=== PATIENT | female | born 1975 | race African-American/Black ===

== ENCOUNTER → 2018-06-12 | Outpatient (CLI) | payer OTHER ==
[2018-06-12 14:17] VITALS: PULSE 87; RESP 20; TEMP 98.3; BMI 63.2
[2018-06-12 14:34] VITALS: BP 137/70
--- NOTE | 2018-06-12 16:40 | P.HPBAR ---
Bariatric H&P - History & Physicial H&P Date: 06/12/18 History & Physicial: Visit/CC: pursuing surgery Patient initial contact: 05/27/18 Initial weight: 169.825 kg Initial weight in pounds: 374.40 Height: 5 ft 4.5 in Initial BMI: 63.2 Last weight: Current weight: 169.825 kg Current weight in pounds: 374.40 Current BMI: 63.2 [place] body weight (based on NIH guidelines): 55.565 kg Excess body weight loss: 0.0% The patient is a 43 year-old F who presents for Bariatric Assessment. Patient known to our service. She has over with her weight for many years. She has tried a variety of different weight loss methods without sustained success. The patient suffers from coronary artery disease, hypertension, osteoarthritis, sleep apnea, CHF. These medical conditions are likely related to her morbid obesity and should be improved with surgical weight loss. She does have a history of DVT with PE in the past. She doesn't have a history of reflux that is controlled with oral medications. She does have a history of a previous small moderate sized hiatal hernia seen 2 years ago on upper endoscopy. Denies dysphagia. She is interested in sleeve gastrectomy. Review of Systems The patient denies any acute changes in vision or hearing, no dysphagia or odynophagia, no chest pain or shortness of breath, no dysuria or hematuria, no headache, no runny nose, no rectal bleeding or melena, no unexplained weight loss Past Medical History Past Medical History: Coronary Artery Disease (CAD), Chest Pain / Angina, Heart Failure, Hypertension, Osteoarthritis (OA), Pneumonia, Renal Disease Additional Past Medical History / Comment(s): SVT, sinus pauses, anemia, chronic kidney disease, blood clots-pt stated took xarelto for awhile, arthritis bilateral knees, anemia, constipation History of Any Multi-Drug Resistant Organisms: None Reported Past Surgical History: Section, Hernia Repair Additional Past Surgical History / Comment(s): adominal hernia repair with mesh , cysts removed from stomach Past Anesthesia/Blood Transfusion Reactions: No Reported Reaction Additional Past Anesthesia/Blood Transfusion Reaction / Comm: Pt has received blood in the past without reaction. Smoking Status: Never smoker - Past Family History Father Family Medical History: Congestive Heart Failure (CHF) Additional Family Medical History / Comment(s): Father from CHF. Mother Family Medical History: Cancer, Hypertension, Sleep Apnea/CPAP/BIPAP Additional Family Medical History / Comment(s): Mother has had cancer removed from ear/head. Surgical - Exam Vital Signs Temp Pulse Resp BP 98.3 F 87 20 137/70 06/12/18 14:09 06/12/18 14:09 06/12/18 14:09 06/12/18 14:09 Physical exam: General: Well-developed, well-nourished HEENT: Normocephalic, sclerae nonicteric Abdomen: Nontender, nondistended Extremities: No edema Neuro: Alert and oriented Bariatric Assessment & Plan (1) Morbid obesity Narrative/Plan: Patient I discussed the bariatric procedures including gastric bypass and sleeve gastrectomy in detail. The risk benefit profile of both were reviewed. The patient previously had not considered the gastric bypass to a large degree. Given her high BMI she is willing to reconsider at this time. Tentative plan at this time is for her to go to an upcoming bariatric seminar put on by Dr. Razo. Following that the patient will notify me of her decision regarding either sleeve gastrectomy or gastric bypass. Will require repeat upper endoscopy preoperatively. Will require pre-and postoperative anticoagulation. Will obtain preoperative medical clearance and cardiac clearance. Status: Acute Bariatric Checklist Checklist: Plan: Checklist: EGD: 1. Hiatal hernia: 2. H. Pylori: HgbA1c: Vitamin D: Smoking: Never smoker Primary care physician referral: Dr Stanford Psychiatry clearance: Cardiology clearance: Sleep study: Diet journal: VTE risk score: VTE risk level: Rehab needs at discharge:
== END | disposition home or self-care (01) ==
LOC: BARWHC3 13:49
PROVIDERS: ATTEND Surgery
DX: E66.01 Morbid (severe) obesity due to excess calories (principal); Z68.44 Body mass index [BMI] 60.0-69.9, adult; Z98.890 Other specified postprocedural states
CPT/HCPCS: 99201

== ENCOUNTER → 2018-07-01 | Outpatient (CLI) | payer OTHER ==
[2018-07-01 12:59] LABS: Albumin 3.7 g/dL (3.5-5.0); Calcium 8.7 mg/dL (8.4-10.2); Potassium 4.7 mmol/L (3.5-5.1); Total Bilirubin 0.3 mg/dL (0.2-1.3); Total Protein 7.5 g/dL (6.3-8.2)
[2018-07-01 13:15] LABS: T4, Free (Free Thyroxine) 1.21 ng/dL (0.78-2.19)
[2018-07-01 13:27] LABS: Anisocytosis Slight; Basophils % (A) 0 %; Eosinophils # (A) 0.1 k/uL (0-0.7); Eosinophils % (A) 1 %; HGB 8.8 gm/dL (11.4-16.0); Hypochromasia Marked; Lymphocytes # (A) 0.7 k/uL (1.0-4.8); Lymphocytes % (A) 12 %; MCH 19.6 pg (25.0-35.0); MCHC 27.4 g/dL (31.0-37.0); MCV 71.5 fL (80.0-100.0); Mean Platelet Volume 7.5; Microcytosis Marked; Monocytes # (A) 0.3 k/uL (0-1.0); Monocytes % (A) 5 %; Neutrophils # (A) 4.3 k/uL (1.3-7.7); Neutrophils % (A) 79 %; Platelet Count 190 k/uL (150-450); Poikilocytosis Slight; RBC 4.47 m/uL (3.80-5.40); RDW 18.3 % (11.5-15.5); WBC 5.4 k/uL (3.8-10.6)
--- NOTE | 2018-07-01 13:46 | MM ---
Reason for exam: clinical finding. Indicated problem(s): lump or thickening in the left breast. Physical Findings: Nurse Summary: 10cm nodule in the left breast at nipple (nurse ts). MG Diagnostic Mammo w CAD BRYCE Bilateral CC and MLO view(s) were taken. The breast tissue is heterogeneously dense. This may lower the sensitivity of mammography. There is skin thickening and diffuse increased density on left. Multiple less that 4mm nodes at the axilla. These results were verbally communicated with the patient and result sheet given to the patient on 07/01/18. ASSESSMENT: Incomplete: need additional imaging evaluation, BI-RAD 0 RECOMMENDATION: Ultrasound of the left breast.
--- NOTE | 2018-07-01 13:48 | USB ---
Reason for exam: additional evaluation requested from abnormal screening. US Breast LT Left complete breast ultrasound includes all four quadrants, the retroareolar region and axilla. Finding demonstrates skin thickening all around the nipple, edematous tissue seen throughout. These results were verbally communicated with the patient and result sheet given to the patient on 07/01/18. ASSESSMENT: Highly suggestive of malignancy, BI-RAD 5 RECOMMENDATION: Surgical consultation of the left breast. Called Dr. Stanford with mammographic findings and has scheduled an appointment for the patient for 07/23/18 at 1:[address] Kapoor. PRELIMINARY REPORT CALLED AND FAXED TO DR. KAPOOR ON 07/01/18.
== END | disposition home or self-care (01) ==
LOC: RADMAMWWP 10:22
PROVIDERS: ATTEND Family Medicine
DX: R92.8 Other abnormal and inconclusive findings on diagnostic imaging of breast (principal); N63.20 Unspecified lump in the left breast, unspecified quadrant; R53.83 Other fatigue; E78.5 Hyperlipidemia, unspecified; E55.9 Vitamin D deficiency, unspecified
CPT/HCPCS: 36415; 77066; 80053; 80061; 82306; 84439; 84443; 85025

== ENCOUNTER → 2018-09-04 | Outpatient (CLI) | payer OTHER ==
[2018-09-04 16:24] VITALS: BP 186/96; PULSE 76; RESP 18; TEMP 97.5; BMI 62.3
--- NOTE | 2018-09-04 17:02 | P.GSHP ---
History of Present Illness H&P Date: 09/04/18 Chief Complaint: left breast mass Patient is a 43 year old female with a mammogram showing skin thickening and diffuse increased density on the left near the nipple area. She has multiple less than 4 mm nodes in the axilla. The patient on ultrasound of the left breast was noted to have skin thickening around the nipple area and edematous tissue seen. Additionally the patient states that she noticed some swelling in the left breast near the nipple area. Her last mammogram prior to this was approximately 5 years ago. It is difficult for her to examine her breast hre BMI is 62.3. Family History: 1. mother: cancer unknown type 2. maternal grandmother; spine cancer 3. maternal aunt: breast in her 40's Hormonal History: menarche: 12 : 6, children 6, breast fed: none first at 15 LMP: about 1 week ago regular BCP: none hormones: none Past Surgical History: 1. hernia Past Medical History: 1. arthritis 2. sleep apnea 3. CHF 4. HTN Social History: smoke: none alcohol: none drugs: none - Constitutional Constitutional: Denies chills, Denies fever - EENT Eyes: denies blurred vision, denies pain Ears: deny: decreased hearing, tinnitus Ears, nose, mouth and throat: Denies headache, Denies sore throat - Breasts Breasts: bilateral: as per HPI - Cardiovascular Comment: CHF Cardiovascular: Reports high blood pressure, Reports shortness of breath - Respiratory Respiratory: Denies cough, Denies 7 - Gastrointestinal Gastrointestinal: Denies abdominal pain, Denies diarrhea, Denies nausea, Denies vomiting - Genitourinary (Female) Genitourinary: Denies dysuria, Denies hematuria - Menstruation Menstruation: Reports period normal - Musculoskeletal Comment: arthritis, difficulty with mobility - Integumentary Integumentary: Reports pruritus, Denies rash - Neurological Neurological: Denies numbness, Denies weakness - Psychiatric Psychiatric: Reports anxiety, Denies depression - Endocrine Endocrine: Reports fatigue - Hematologic/Lymphatic Comment: aspirin - Allergic/Immunologic Allergic/Immunologic: Reports as per HPI Past Medical History Past Medical History: Coronary Artery Disease (CAD), Chest Pain / Angina, Heart Failure, Hypertension, Osteoarthritis (OA), Pneumonia, Renal Disease Additional Past Medical History / Comment(s): SVT, sinus pauses, anemia, chronic kidney disease, blood clots-pt stated took xarelto for awhile, arthritis bilateral knees, anemia, constipation History of Any Multi-Drug Resistant Organisms: None Reported Past Surgical History: Section, Hernia Repair Additional Past Surgical History / Comment(s): adominal hernia repair with mesh , cysts removed from stomach Past Anesthesia/Blood Transfusion Reactions: No Reported Reaction Additional Past Anesthesia/Blood Transfusion Reaction / Comment(s): Pt has received blood in the past without reaction. Past Psychological History: Anxiety Additional Psychological History / Comment(s): Pt takes ativan when needed for anxiety and states it helps. Pt lives at home with her 2 children. is independant. nopets. Smoking Status: Never smoker Past Alcohol Use History: None Reported Past Drug Use History: None Reported - Past Family History Father Family Medical History: Congestive Heart Failure (CHF) Additional Family Medical History / Comment(s): Father from CHF. Mother Family Medical History: Cancer, Hypertension, Sleep Apnea/CPAP/BIPAP Additional Family Medical History / Comment(s): Mother has had cancer removed from ear/head. Medications and Allergies Home Medications Medication Instructions Recorded Confirmed Type Albuterol Inhaler [Ventolin Hfa 1 - 2 puff INHALATION RT-Q6H PRN 08/28/16 History Inhaler] Baclofen [Lioresal] 10 mg PO TID PRN 11/05/17 01/02/18 History Budesonide/Formoterol Fumarate 2 puff INHALATION RT-BID 11/05/17 01/02/18 History [Symbicort 160-4.5 Mcg Inhaler] Ferrous Sulfate [Iron (65 MG 325 mg PO TID 11/05/17 01/02/18 History Elemental)] LORazepam [Ativan] 2 mg PO TID PRN 11/05/17 01/02/18 History Minoxidil 10 mg PO DAILY 11/05/17 01/02/18 History Omeprazole 20 mg PO DAILY 11/05/17 01/02/18 History Sodium Bicarbonate 325 mg PO BID 11/05/17 01/02/18 History amLODIPine [Norvasc] 10 mg PO DAILY 11/05/17 01/02/18 History traMADol HCL [Ultram] 100 mg PO Q6HR PRN 11/05/17 01/02/18 History Atorvastatin [Lipitor] 40 mg PO HS #30 tab 01/08/18 Rx Aspirin 81 mg PO DAILY #100 chew 01/09/18 Rx Furosemide [Lasix] 40 mg PO BID@0900,1600 #60 tab 01/09/18 Rx Furosemide [Lasix] 40 mg PO BID@0900,1600 #60 tab 01/09/18 Rx Sacubitril/Valsartan [Entresto 24 1 each PO BID #60 tablet 01/09/18 Rx mg-26 mg Tablet] Carvedilol [Coreg*] 25 mg PO BID-W/MEALS #60 tab 01/10/18 Rx Hyoscyamine Sulfate [Levbid] 0.375 mg PO BID #60 tab.er.12h 01/10/18 Rx amLODIPine [Norvasc] 10 mg PO DAILY tab 01/10/18 Rx cloNIDine HCL [Catapres] 0.05 mg PO TID #90 tab 01/10/18 Rx Allergies Allergy/AdvReac Type Severity Reaction Status Date / Time lactose AdvReac Unknown Verified 07/01/18 11:24 Surgical - Exam Vital Signs Temp Pulse Resp BP 97.5 F L 76 18 186/96 09/04/18 16:19 09/04/18 16:19 09/04/18 16:19 09/04/18 16:19 BMI 62.3 - General obese - Eyes normal ocular movement - ENT no hearing loss, no congestion - Neck no masses, trachea midline - Respiratory Decreased breath sounds at the bases normal respiratory effort, clear to auscultation - Cardiovascular Rhythm: regular Heart Sounds: normal: S1, S2 - Abdomen Abdomen: soft, non tender, no guarding, no rigid, no rebound - Integumentary tatoo - Neurologic no disoriented, no combative - Musculoskeletal difficulty with ambulation The patient's left upper extremity appears to be swollen especially the dorsum of her left hand with respect to the right hand - Psychiatric oriented to time, oriented to person, oriented to place, speech is normal, memory intact Breast examination: Right breast: Multi-positional exam no dominant masses or nodules of concern fibrocystic changes Right axilla: No adenopathy of concern Left breast: Enlarged over right breast. some firmness behind the nipple areolar area, no definite discrete mass Left axilla: No discrete adenopathy of concern identified Results Patient's mammogram and ultrasound were reviewed with radiology Dr. Erickson. Radiographically although there is diffuse skin thickening which is suspicious there is no discrete mass to biopsy either on the mammogram or the ultrasound. Recommendation is that the patient undergo a core biopsy as well as a full- thickness skin biopsy. Assessment and Plan Assessment: Impression: 1. BMI 62.3 2. Congestive heart failure 3. Decreased mobility/arthritis 4. Sleep apnea 5. Markedly enlarged left breast with findings of questionable [place] but no underlying mass seen radiographically are clearly palpable Plan: 1. Medical management of medical conditions 2. After discussion with radiology would recommend that the patient undergo a core biopsy of area of density in the breast which is not a discrete mass and a full-thickness skin biopsy depending on results of these further recommendation to follow This was discussed with the patient and her daughter, and they understand if the biopsies do not give a diagnosis we will have to consider further evaluation. Patient to have biopsies of bresat in near future. cc> Dr. Frank
== END | disposition home or self-care (01) ==
LOC: WWCWWP 16:11
PROVIDERS: ATTEND Surgery
DX: Z53.9 Procedure and treatment not carried out, unspecified reason (principal)

== ENCOUNTER → 2018-09-12 | Outpatient (CLI) | payer OTHER ==
[2018-09-12 08:41] VITALS: BP 87/47; PULSE 70; RESP 16; TEMP 97.8
--- NOTE | 2018-09-12 09:35 | P.PCN ---
Date of Procedure: 09/12/18 Preoperative Diagnosis: Enlarged left breast with [place] and firmness in the upper quadrant area and posterior to the nipple complex Postoperative Diagnosis: Same Procedure(s) Performed: Core biopsy left breast area of increased firmness upper quadrant region and posterior to the nipple, punch biopsy of the skin in 2 locations Anesthesia: local Surgeon: Elizabeth Myers Pathology: other (Core biopsy of area of firmness in the left breast 3 samples obtained, punch biopsy of 2 areas of thickening of the skin with 4 o'clock position of the periareolar region) Condition: stable Disposition: same day Indications for Procedure: 43-year-old black female with increased fullness in the left breast in the upper outer quadrant region as well as in the posterior area alert region with increase in size of the breast and thickening of the skin suspicious for inflammatory breast carcinoma although no definite dominant discrete mass was palpated nor was any definite discrete mass seen on mammogram or ultrasound we considered an MRI however the gantry for the MRIs 24 inches in the patient's diameter is approximately 29 inches it was not felt that a stereo biopsy would benefit after review with radiology Operative Findings: Thickened subcutaneous breast tissue noted on punch biopsy of the skin, fibrotic breast tissue noted on core biopsy Description of Procedure: The patient was placed supine on the examining table. The left breast was evaluated in an area of increased firmness in the upper outer quadrant area and extending to the posterior area over area was identified. The breast was prepped using Betadine. One percent lidocaine was used to anesthetize the area of the skin. An 18-gauge spring-loaded core biopsy needle was utilized to obtain 3 cores samples from the area of thickening of the breast. Again this was not a discrete mass and could not be seen discretely on mammogram but appears to be firmer than the surrounding tissues. The specimen was sent to pathology. The patient tolerated this portion of the procedure with no complications. The area of greatest skin thickening appears to be in the periareolar region approximately 4 to 6:00. This area was prepped using Betadine. One percent lidocaine was used to anesthetize the area of concern. A 4 mm punch biopsy of the skin was performed. This was sent to pathology. A second area in close proximity was also noted to be of suspicion and a second punch biopsy 4 mm was obtained. Again the area was prepped using Betadine and anesthetized using 1% lidocaine. The patient tolerated the procedure in stable condition. The specimens are sent to pathology. The patient will follow up next week for results of the biopsies. If the biopsies are nondiagnostic then further recommendation will follow. I discussed with the patient and her daughter that if these are negative for malignancy it may be a sampling air. Unfortunately the patient is not a candidate for an MRI nor is she a candidate for stereo biopsy or ultrasound- guided core biopsy. Therefore we are awaiting results of these biopsies and further recommendation to follow. I have requested that be presented at tumor board. Cc: Dr. Martin
== END | disposition home or self-care (01) ==
LOC: WWCWWP 08:00
PROVIDERS: ATTEND Surgery
DX: N61.0 Mastitis without abscess (principal)
CPT/HCPCS: 88305

== ENCOUNTER → 2018-09-18 | Outpatient (CLI) | payer OTHER ==
--- NOTE | 2018-09-18 14:55 | US ---
EXAMINATION TYPE: US venous doppler duplex UE LT DATE OF EXAM: 09/18/2018 COMPARISON: NONE CLINICAL HISTORY: M79.89 SWELLING LT UPPER EXTREMITY. Left hand swelling last week, none today; US re commended by Tumor Board SIDE PERFORMED: left Left Arm: negative for DVT IMPRESSION: No evidence for DVT at this time.
--- NOTE | 2018-09-18 15:02 | P.PN ---
Progress Note - Text Progress Note Date: 09/18/18 Ankita presents today for report of her biopsy results. The core biopsy of the breast revealed benign predominantly fatty breast parenchyma with benign ductal structures. There was mild chronic ductal inflammation. Features of a mass lesion or malignancy were not seen. The skin of the left breast in the periareolar region at 4:00 and skin biopsies labeled B and C did not reveal any evidence of malignancy. I have discussed the case with Dr. Garcia from pathology who feels that lymphovascular structures were seen in the skin biopsies and that there was no evidence of any cancer in the lymphovascular structures. The case was discussed at tumor board and recommendation was for a venous ultrasound to rule out obstruction resulting in engorgement of the breast , this was performed today and reviewed with Dr. Obregon no evidence of venous obstruction was identified. Furthermore the patient is being scheduled for a left breast MRI and an appointment with Dr. Hurtado. Physical examination: Examination of the left breast biopsy sites reveals that the core biopsy site is healed well, there is granulation of the punch biopsy sites with no evidence of infection at the sites The left breast remains engorged with findings consistent with. Lela Impression: 1. Benign skin and core biopsies of the left breast 2. Skin thickening of the left breast no discrete masses 3. Venous Doppler does not reveal any evidence of obstruction in the lymphatic tissues Plan: 1. MRI of the left breast 2. Appointment with medical oncology/Dr. Hurtado 3. Antibiotics started empirically Keflex 4. Follow up here in a week and a half Cc: Dr. Meyer
== END | disposition home or self-care (01) ==
LOC: RADUSWWP 13:37
PROVIDERS: ATTEND Surgery
DX: M79.89 Other specified soft tissue disorders (principal)

== ENCOUNTER → 2018-09-18 | Outpatient (CLI) | payer OTHER ==
[2018-09-18 14:34] VITALS: BP 133/64; PULSE 71; RESP 20; TEMP 97.4; BMI 53.2
== END ==
LOC: WWCWWP 13:28
PROVIDERS: ATTEND Surgery
DX: Z53.9 Procedure and treatment not carried out, unspecified reason (principal)

== ENCOUNTER 2019-01-04 12:44 | Emergency (ER) | payer OTHER ==
[2019-01-04] MEDS ORDERED: ONDANSETRON 4 MG/2 ML VIAL IVP STA (13:19)
[2019-01-04] MEDS ORDERED: PANTOPRAZOLE 40 MG/10 ML VIAL IVP STA (13:19)
--- NOTE | 2019-01-04 13:24 | ED ---
General Adult HPI - General Chief complaint: Nausea/Vomiting/Diarrhea Stated complaint: Vomiting/Abd pain Time Seen by Provider: 01/04/19 13:00 Source: patient, RN notes reviewed Mode of arrival: EMS Limitations: no limitations - History of Present Illness Initial comments: This is a 43-year-old female presents to the emergency department complaining of nausea vomiting. Patient states her had similar symptoms a few days ago. Patient states she has no abdominal pain but occasional abdominal cramping. Patient denies any diarrhea but she still is passing gas. Patient states she has had a mesh placed in her abdomen for a ventral hernia but has had no other abdominal surgeries. Patient denies any chest pain difficult breathing shortness of breath per patient denies any fever chills. Patient denies any dysuria hematuria or urinary frequency. Patient denies any back pain. - Related Data Home Medications Medication Instructions Recorded Confirmed Albuterol Inhaler [Ventolin Hfa 1 - 2 puff INHALATION RT-Q6H PRN 08/28/16 01/04/19 Inhaler] Baclofen [Lioresal] 10 mg PO TID PRN 11/05/17 01/04/19 Budesonide/Formoterol Fumarate 2 puff INHALATION RT-BID 11/05/17 01/04/19 [Symbicort 160-4.5 Mcg Inhaler] Minoxidil 10 mg PO DAILY 11/05/17 01/04/19 Omeprazole 20 mg PO DAILY 11/05/17 01/04/19 Carvedilol [Coreg] 3.125 mg PO BID 01/04/19 01/04/19 Ibuprofen [Motrin] 800 mg PO QID PRN 01/04/19 01/04/19 LORazepam [Ativan] 2 mg PO TID PRN 01/04/19 01/04/19 Lidocaine 2% Gel [Xylocaine Jelly 1 applic TOPICAL TID PRN 01/04/19 01/04/19 2%] Metoprolol Tartrate [Lopressor] 100 mg PO TID 01/04/19 01/04/19 Potassium Chloride [Klor-Con 20 20 meq PO DAILY 01/04/19 01/04/19 Packets] Sacubitril/Valsartan [Entresto 24 1 tab PO BID 01/04/19 01/04/19 mg-26 mg Tablet] Sodium Bicarbonate 325 mg PO BID 01/04/19 01/04/19 Spironolactone [Aldactone] 25 mg PO DAILY 01/04/19 01/04/19 amLODIPine [Norvasc] 10 mg PO BID 01/04/19 01/04/19 cloNIDine HCL 0.3 mg PO TID 01/04/19 01/04/19 hydrALAZINE HCL [Apresoline] 100 mg PO TID 01/04/19 01/04/19 Previous Rx's Medication Instructions Recorded Aspirin 81 mg PO DAILY #100 chew 01/09/18 Furosemide [Lasix] 40 mg PO BID@0900,1600 #60 tab 01/09/18 Hyoscyamine Sulfate [Levbid] 0.375 mg PO BID #60 tab.er.12h 01/10/18 Ondansetron Odt [Zofran Odt] 4 mg PO Q8HR PRN #10 tab 01/04/19 Allergies Allergy/AdvReac Type Severity Reaction Status Date / Time No Known Allergies Allergy Verified 01/04/19 14:47 Review of Systems ROS Statement: Those systems with pertinent positive or pertinent negative responses have been documented in the HPI. ROS Other: All systems not noted in ROS Statement are negative. Past Medical History Past Medical History: Coronary Artery Disease (CAD), Chest Pain / Angina, Heart Failure, Hypertension, Osteoarthritis (OA), Pneumonia, Renal Disease Additional Past Medical History / Comment(s): SVT, sinus pauses, anemia, chronic kidney disease, blood clots-pt stated took xarelto for awhile, arthritis bilateral knees, anemia, constipation History of Any Multi-Drug Resistant Organisms: None Reported Past Surgical History: Section, Hernia Repair Additional Past Surgical History / Comment(s): adominal hernia repair with mesh, cysts removed from stomach Past Anesthesia/Blood Transfusion Reactions: No Reported Reaction Additional Past Anesthesia/Blood Transfusion Reaction / Comment(s): Pt has received blood in the past without reaction. Past Psychological History: Anxiety Smoking Status: Never smoker Past Alcohol Use History: None Reported Past Drug Use History: None Reported - Past Family History Father Family Medical History: Congestive Heart Failure (CHF) Additional Family Medical History / Comment(s): Father from CHF. Mother Family Medical History: Cancer, Hypertension, Sleep Apnea/CPAP/BIPAP Additional Family Medical History / Comment(s): Mother has had cancer removed from ear/head. General Exam - General Exam Comments Initial Comments: GENERAL: Patient is well-developed and well-nourished. Patient is nontoxic and well-hydrated and is in no acute distress. ENT: Neck is soft and supple. No significant lymphadenopathy is noted. Oropharynx is clear. Moist mucous membranes. Neck has full range of motion without eliciting any pain. There is no thyroid enlargement and no masses were felt. EYES: The sclera were anicteric and conjunctiva were pink and moist. Extraocular movements were intact and pupils were equal round and reactive to light. Eyelids were unremarkable. PULMONARY: Unlabored respirations. Good breath sounds bilaterally. No audible rales rhonchi or wheezing was noted. CARDIOVASCULAR: There is a regular rate and rhythm without any murmurs gallops or rubs. Femoral pulses are equal bilaterally ABDOMEN: Soft and nontender with normal bowel sounds. No palpable organomegaly was noted. There is no palpable pulsatile mass. SKIN: Skin is clear with no lesions or rashes and otherwise unremarkable. NEUROLOGIC: Patient is alert and oriented x3. Cranial nerves II through XII are grossly intact. Motor and sensory are also intact. Normal speech, volume and content. Symmetrical smile. Cerebellar exam grossly intact. MUSCULOSKELETAL: Normal extremities with adequate strength and full range of motion. No lower extremity swelling or edema. No calf tenderness. LYMPHATICS: No significant lymphadenopathy is noted PSYCHIATRIC: Normal psychiatric evaluation. Normal interpersonal interactions appears functionally intact in deals appropriately with others. No signs of depression. No signs of anxiety. No delusions. No hallucinations. Limitations: no limitations Course Vital Signs 01/04/19 01/04/19 13:01 14:38 Temperature 98.6 F Pulse Rate 86 89 Respiratory 18 16 Rate Blood Pressure 131/83 132/81 O2 Sat by Pulse 98 87 L Oximetry Medical Decision Making - Medical Decision Making I went back into the room to reevaluate the patient she had not vomited since she was in the emergency department. Patient had no abdominal pain she was feeling considerably better. - Lab Data Result diagrams: 01/04/19 14:05 01/04/19 14:05 Lab Results 01/04/19 01/04/19 Range/Units 14:05 14:05 WBC 8.5 (3.8-10.6) k/uL RBC 5.19 (3.80-5.40) m/uL Hgb 9.5 L (11.4-16.0) gm/dL Hct 35.0 (34.0-46.0) % MCV 67.5 L (80.0-100.0) fL MCH 18.4 L (25.0-35.0) pg MCHC 27.2 L (31.0-37.0) g/dL RDW 19.1 H (11.5-15.5) % Plt Count 302 (150-450) k/uL Neutrophils % 80 % Lymphocytes % 7 % Monocytes % 8 % Eosinophils % 1 % Basophils % 0 % Neutrophils # 6.8 (1.3-7.7) k/uL Lymphocytes # 0.6 L (1.0-4.8) k/uL Monocytes # 0.7 (0-1.0) k/uL Eosinophils # 0.1 (0-0.7) k/uL Basophils # 0.0 (0-0.2) k/uL Hypochromasia Marked Anisocytosis Slight Microcytosis Marked Sodium 139 (137-145) mmol/L Potassium 5.3 H (3.5-5.1) mmol/L Chloride 106 (98-107) mmol/L Carbon Dioxide 24 (22-30) mmol/L Anion Gap 9 mmol/L BUN 29 H (7-17) mg/dL Creatinine 1.44 H (0.52-1.04) mg/dL Est GFR (CKD-EPI)AfAm 51 (>60 ml/min/1.73 sqM) Est GFR (CKD-EPI)NonAf 44 (>60 ml/min/1.73 sqM) Glucose 99 (74-99) mg/dL Calcium 9.0 (8.4-10.2) mg/dL Total Bilirubin 0.7 (0.2-1.3) mg/dL AST 39 H (14-36) U/L ALT 19 (9-52) U/L Alkaline Phosphatase 54 (38-126) U/L Total Protein 8.4 H (6.3-8.2) g/dL Albumin 4.1 (3.5-5.0) g/dL Amylase 44 (30-110) U/L Lipase 33 (23-300) U/L Disposition Clinical Impression: Acute vomiting Disposition: HOME SELF-CARE Condition: Good Instructions (If sedation given, give patient instructions): Acute Nausea and Vomiting (ED) Prescriptions: Ondansetron Odt [Zofran Odt] 4 mg PO Q8HR PRN #10 tab PRN Reason: Nausea Is patient prescribed a controlled substance at d/c from ED?: No Referrals: Kevin Stanford MD [Primary Care Provider] - 1-2 days Time of Disposition: 15:18
[2019-01-04 14:41] VITALS: RESP 16
[2019-01-04 14:54] LABS: Anisocytosis Slight; Basophils % (A) 0 %; Eosinophils # (A) 0.1 k/uL (0-0.7); Eosinophils % (A) 1 %; HGB 9.5 gm/dL (11.4-16.0); Hypochromasia Marked; Lymphocytes # (A) 0.6 k/uL (1.0-4.8); Lymphocytes % (A) 7 %; MCH 18.4 pg (25.0-35.0); MCHC 27.2 g/dL (31.0-37.0); MCV 67.5 fL (80.0-100.0); Mean Platelet Volume 10.6; Microcytosis Marked; Monocytes # (A) 0.7 k/uL (0-1.0); Monocytes % (A) 8 %; Neutrophils # (A) 6.8 k/uL (1.3-7.7); Neutrophils % (A) 80 %; Platelet Count 302 k/uL (150-450); RBC 5.19 m/uL (3.80-5.40); RDW 19.1 % (11.5-15.5); WBC 8.5 k/uL (3.8-10.6)
[2019-01-04 15:05] LABS: Albumin 4.1 g/dL (3.5-5.0); Total Bilirubin 0.7 mg/dL (0.2-1.3); Total Protein 8.4 g/dL (6.3-8.2)
[2019-01-04 15:07] LABS: Potassium 5.3 mmol/L (3.5-5.1)
[2019-01-04 15:34] VITALS: BP 154/95; PULSE 90; TEMP 98.1
== END 2019-01-04 15:40 | disposition home or self-care (01) ==
LOC: EC 12:44
DX: R11.2 Nausea with vomiting, unspecified (principal); I25.119 Atherosclerotic heart disease of native coronary artery with unspecified angina pectoris; M19.90 Unspecified osteoarthritis, unspecified site; I13.0 Hypertensive heart and chronic kidney disease with heart failure and stage 1 through stage 4 chronic kidney disease, or unspecified chronic kidney disease; N18.9 Chronic kidney disease, unspecified; F41.9 Anxiety disorder, unspecified; Z79.51 Long term (current) use of inhaled steroids; Z79.899 Other long term (current) drug therapy
CPT/HCPCS: 36415; 80053; 82150; 83690; 85025; 99284; 96374; 96375; J2405; C9113

== ENCOUNTER 2020-05-03 13:31 | Inpatient (IN) | payer OTHER ==
--- NOTE | 2020-05-03 13:37 | ED ---
General Adult HPI - General Stated complaint: Altered mental Time Seen by Provider: 05/03/20 13:32 Source: patient, EMS, RN notes reviewed, old records reviewed - History of Present Illness Initial comments: 45-year-old female presenting from home with episodes of confusion and sleepiness. Patient had fallen yesterday afternoon and apparently was on the ground for approximately 12 hours. She's had an episode similar to this within the past several weeks where she was evaluated at an outside hospital. Urinalysis was a very similar symptoms of difficulty ambulating and intermittent sleepiness. She is only on antihypertensive medication according to EMS. There is no narcotics or benzodiazepines. No history of alcohol use or abuse. Patient is alert and oriented at the time my evaluation without any complaints. No chest pain or abdominal pain. No fever. No vomiting or diarrhea. - Related Data Home Medications Medication Instructions Recorded Confirmed Baclofen [Lioresal] 10 mg PO TID PRN 11/05/17 05/03/20 Budesonide/Formoterol Fumarate 2 puff INHALATION RT-BID 11/05/17 05/03/20 [Symbicort 160-4.5 Mcg Inhaler] Omeprazole 20 mg PO DAILY 11/05/17 05/03/20 minoxidiL [Minoxidil] 10 mg PO DAILY 11/05/17 05/03/20 Ibuprofen [Motrin] 800 mg PO QID PRN 01/04/19 05/03/20 LORazepam [Ativan] 2 mg PO TID PRN 01/04/19 05/03/20 Metoprolol Tartrate [Lopressor] 100 mg PO BID 01/04/19 05/03/20 Potassium Chloride [Klor-Con 20 20 meq PO DAILY 01/04/19 05/03/20 Packets] Sodium Bicarbonate 325 mg PO BID 01/04/19 05/03/20 Spironolactone [Aldactone] 25 mg PO DAILY 01/04/19 05/03/20 cloNIDine HCL 0.3 mg PO TID 01/04/19 05/03/20 hydrALAZINE HCL [Apresoline] 100 mg PO TID 01/04/19 05/03/20 Albuterol Sulfate [Ventolin HFA] 1 - 2 puff INHALATION RT-QID PRN 05/03/20 05/03/20 Furosemide [Lasix] 40 mg PO DAILY 05/03/20 05/03/20 Previous Rx's Medication Instructions Recorded Aspirin 81 mg PO DAILY #100 chew 01/09/18 Allergies Allergy/AdvReac Type Severity Reaction Status Date / Time No Known Allergies Allergy Verified 05/03/20 14:35 Review of Systems ROS Statement: Those systems with pertinent positive or pertinent negative responses have been documented in the HPI. ROS Other: All systems not noted in ROS Statement are negative. Past Medical History Past Medical History: Coronary Artery Disease (CAD), Chest Pain / Angina, Heart Failure, Hypertension, Osteoarthritis (OA), Pneumonia, Renal Disease Additional Past Medical History / Comment(s): SVT, sinus pauses, anemia, chronic kidney disease, blood clots-pt stated took xarelto for awhile, arthritis bilateral knees, anemia, constipation History of Any Multi-Drug Resistant Organisms: None Reported Past Surgical History: Section, Hernia Repair Additional Past Surgical History / Comment(s): adominal hernia repair with mesh, cysts removed from stomach Past Anesthesia/Blood Transfusion Reactions: No Reported Reaction Additional Past Anesthesia/Blood Transfusion Reaction / Comment(s): Pt has received blood in the past without reaction. Past Psychological History: Anxiety Past Alcohol Use History: None Reported Past Drug Use History: None Reported - Past Family History Father Family Medical History: Congestive Heart Failure (CHF) Additional Family Medical History / Comment(s): Father from CHF. Mother Family Medical History: Cancer, Hypertension, Sleep Apnea/CPAP/BIPAP Additional Family Medical History / Comment(s): Mother has had cancer removed from ear/head. General Exam General appearance: alert, in no apparent distress Head exam: Present: atraumatic, normocephalic Eye exam: Present: normal appearance, PERRL ENT exam: Present: normal exam, mucous membranes moist Neck exam: Present: normal inspection. Absent: tenderness, meningismus Respiratory exam: Present: decreased breath sounds. Absent: respiratory distress, wheezes Cardiovascular Exam: Present: regular rate, normal rhythm GI/Abdominal exam: Present: soft. Absent: distended, tenderness, guarding Extremities exam: Present: normal capillary refill, pedal edema Neurological exam: Present: alert, oriented X3, CN II-XII intact. Absent: motor sensory deficit Psychiatric exam: Present: normal affect, normal mood Skin exam: Present: warm, dry, intact. Absent: cyanosis, diaphoretic Course Vital Signs 05/03/20 05/03/20 13:35 15:00 Temperature 98.6 F Pulse Rate 100 100 Respiratory 18 18 Rate Blood Pressure 133/97 167/90 O2 Sat by Pulse 94 L 100 Oximetry EKG Findings - EKG Comments: EKG Findings:: EKG: Sinus tachycardia, LVH, T-wave inversion in aVL and lead 1, no ST segment elevation. Rate of 108, TN interval 148, QRS duration 76, QTC 474 Medical Decision Making - Medical Decision Making 45-year-old female, increased confusion. Patient is alert and oriented at the time my evaluation. Did discuss case with her states she's had altered mental status, increased confusion and lethargy over the past one week. She was seen at [facility] in [place], uncertain what exact diagnosis was made at that time. Workup in the emergency department reveals anemia, with hemoglobin 9.1 which is stable for this patient. She does have some CO2 retention which I suspect is from hyperventilation with a CO2 of 50, she has a normal white blood cell count, potassium is elevated 5.7, any function is 1.44 which is baseline for this patient. Head CT negative for intracranial hemorrhage, chest x-ray does question addendum pneumonia, infiltrate. Pelvis x-rays negative for acute fracture dislocation. Patient will be started on antibiotics. She will be admitted for treatment of pneumonia, hyperkalemia and dehydration as well as acute confusion. - Lab Data Result diagrams: 05/03/20 14:13 05/03/20 14:13 Lab Results 05/03/20 05/03/20 05/03/20 Range/Units 14:13 14:13 14:13 WBC 10.2 (3.8-10.6) k/uL RBC 5.22 (3.80-5.40) m/uL Hgb 9.1 L (11.4-16.0) gm/dL Hct 35.4 (34.0-46.0) % MCV 67.7 L (80.0-100.0) fL MCH 17.4 L (25.0-35.0) pg MCHC 25.7 L (31.0-37.0) g/dL RDW 20.5 H (11.5-15.5) % Plt Count 299 (150-450) k/uL Neutrophils % 78 % Lymphocytes % 12 % Monocytes % 4 % Eosinophils % 1 % Basophils % 1 % Neutrophils # 7.9 H (1.3-7.7) k/uL Lymphocytes # 1.3 (1.0-4.8) k/uL Monocytes # 0.4 (0-1.0) k/uL Eosinophils # 0.1 (0-0.7) k/uL Basophils # 0.1 (0-0.2) k/uL Hypochromasia Marked Poikilocytosis Slight Anisocytosis Moderate Microcytosis Marked PT (9.0-12.0) sec INR (<1.2) APTT (22.0-30.0) sec VBG pH (7.31-7.41) VBG pCO2 (37-51) mmHg VBG HCO3 (24-28) mmol/L Sodium 141 (137-145) mmol/L Potassium 5.6 H (3.5-5.1) mmol/L Chloride 114 H (98-107) mmol/L Carbon Dioxide 19 L (22-30) mmol/L Anion Gap 8 mmol/L BUN 22 H (7-17) mg/dL Creatinine 1.44 H (0.52-1.04) mg/dL Est GFR (CKD-EPI)AfAm 50 (>60 ml/min/1.73 sqM) Est GFR (CKD-EPI)NonAf 44 (>60 ml/min/1.73 sqM) Glucose 93 (74-99) mg/dL Plasma Lactic Acid Antony (0.7-2.0) mmol/L Calcium 9.1 (8.4-10.2) mg/dL Magnesium 1.9 (1.6-2.3) mg/dL Total Bilirubin 0.8 (0.2-1.3) mg/dL AST 61 H (14-36) U/L ALT 35 H (4-34) U/L Alkaline Phosphatase 111 (38-126) U/L Creatine Kinase 79 (30-135) U/L Troponin I 0.032 (0.000-0.034) ng/mL Total Protein 8.7 H (6.3-8.2) g/dL Albumin 4.2 (3.5-5.0) g/dL Serum Alcohol <10 mg/dL 05/03/20 05/03/20 05/03/20 Range/Units 14:13 14:13 15:09 WBC (3.8-10.6) k/uL RBC (3.80-5.40) m/uL Hgb (11.4-16.0) gm/dL Hct (34.0-46.0) % MCV (80.0-100.0) fL MCH (25.0-35.0) pg MCHC (31.0-37.0) g/dL RDW (11.5-15.5) % Plt Count (150-450) k/uL Neutrophils % % Lymphocytes % % Monocytes % % Eosinophils % % Basophils % % Neutrophils # (1.3-7.7) k/uL Lymphocytes # (1.0-4.8) k/uL Monocytes # (0-1.0) k/uL Eosinophils # (0-0.7) k/uL Basophils # (0-0.2) k/uL Hypochromasia Poikilocytosis Anisocytosis Microcytosis PT 9.7 (9.0-12.0) sec INR 0.9 (<1.2) APTT 24.3 (22.0-30.0) sec VBG pH 7.23 L (7.31-7.41) VBG pCO2 50 (37-51) mmHg VBG HCO3 20 L (24-28) mmol/L Sodium (137-145) mmol/L Potassium (3.5-5.1) mmol/L Chloride (98-107) mmol/L Carbon Dioxide (22-30) mmol/L Anion Gap mmol/L BUN (7-17) mg/dL Creatinine (0.52-1.04) mg/dL Est GFR (CKD-EPI)AfAm (>60 ml/min/1.73 sqM) Est GFR (CKD-EPI)NonAf (>60 ml/min/1.73 sqM) Glucose (74-99) mg/dL Plasma Lactic Acid Antony 1.0 (0.7-2.0) mmol/L Calcium (8.4-10.2) mg/dL Magnesium (1.6-2.3) mg/dL Total Bilirubin (0.2-1.3) mg/dL AST (14-36) U/L ALT (4-34) U/L Alkaline Phosphatase (38-126) U/L Creatine Kinase (30-135) U/L Troponin I (0.000-0.034) ng/mL Total Protein (6.3-8.2) g/dL Albumin (3.5-5.0) g/dL Serum Alcohol mg/dL Disposition Clinical Impression: Delirium due to general medical condition, Dehydration, Pneumonia, AMS (altered mental status) Disposition: ADMITTED IP TO THIS [facility] Condition: Stable Is patient prescribed a controlled substance at d/c from ED?: No Referrals: Kevin Stanford MD [Primary Care Provider] - 1-2 days Decision to Admit Reason: Admit from EC Decision Date: 05/03/20 Decision Time: 16:20
[2020-05-03 14:25] LABS: Anisocytosis Moderate; Basophils # (A) 0.1 k/uL (0-0.2); Basophils % (A) 1 %; Eosinophils # (A) 0.1 k/uL (0-0.7); Eosinophils % (A) 1 %; HCT 35.4 % (34.0-46.0); HGB 9.1 gm/dL (11.4-16.0); Hypochromasia Marked; Lymphocytes # (A) 1.3 k/uL (1.0-4.8); Lymphocytes % (A) 12 %; MCH 17.4 pg (25.0-35.0); MCHC 25.7 g/dL (31.0-37.0); MCV 67.7 fL (80.0-100.0); Mean Platelet Volume 7.7; Microcytosis Marked; Monocytes # (A) 0.4 k/uL (0-1.0); Monocytes % (A) 4 %; Neutrophils # (A) 7.9 k/uL (1.3-7.7); Neutrophils % (A) 78 %; Platelet Count 299 k/uL (150-450); Poikilocytosis Slight; RBC 5.22 m/uL (3.80-5.40); RDW 20.5 % (11.5-15.5); WBC 10.2 k/uL (3.8-10.6)
[2020-05-03 14:28] LABS: VBG PH 7.23 (7.31-7.41)
[2020-05-03 14:41] LABS: ALT 35 U/L (4-34); AST 61 U/L (14-36); African American GFR (CKD) 50 (>60 ml/min/1.73 sqM); Albumin 4.2 g/dL (3.5-5.0); Alcohol <10 mg/dL; Alkaline Phosphatase 111 U/L (38-126); Anion Gap 8 mmol/L; Blood Urea Nitrogen 22 mg/dL (7-17); Calcium 9.1 mg/dL (8.4-10.2); Carbon Dioxide 19 mmol/L (22-30); Chloride 114 mmol/L (98-107); Creatine Kinase 79 U/L (30-135); Glucose 93 mg/dL (74-99); Magnesium 1.9 mg/dL (1.6-2.3); Non-African American GFR(CKD) 44 (>60 ml/min/1.73 sqM); Sodium 141 mmol/L (137-145); Total Bilirubin 0.8 mg/dL (0.2-1.3); Total Protein 8.7 g/dL (6.3-8.2)
--- NOTE | 2020-05-03 14:53 | CT ---
EXAMINATION TYPE: CT brain wo con DATE OF EXAM: 05/03/2020 COMPARISON: None INDICATION: Altered mental status. DLP: 1111.4 mGycm, Automated exposure control for dose reduction was used. CONTRAST: None CT of the brain is performed utilizing 3 mm thick sections through the posterior fossa and 3 mm thick sections through the remaining calvarium. Study is performed within 24 hours of arrival to the hosp ital. No abnormal hyperdensity is present to suggest an acute intracranial hemorrhage. No mass lesion is evident.0 there is dense calcification at the vertex adjacent to the superior sagit tammy sinus. Dystrophic calcification and calcification from old hemorrhage could be considered. No acute infarcts are evident. Ventricles and sulci are appropriate for the patient age. Paranasal sinuses and mastoid air cells within the [id number] are clear. IMPRESSIONS: 1. No acute intracranial process.
--- NOTE | 2020-05-03 14:59 | XR ---
EXAMINATION TYPE: XR chest 2V DATE OF EXAM: 05/03/2020 COMPARISON: 01/04/2018 HISTORY: Chest pain TECHNIQUE: Frontal and lateral views of the chest are obtained. FINDINGS: Right infrahilar patchy density noted may reflect developing infiltrate. Correlate clinically. No evidence for pneumothorax. No pleural effusion. The cardiac silhouette size is within normal limits. The osseous structures are grossly intact. IMPRESSION: 1. Right infrahilar patchy density noted may reflect developing infiltrate. Correlate clinically.
--- NOTE | 2020-05-03 15:01 | XR ---
EXAMINATION TYPE: XR pelvis AP view DATE OF EXAM: 05/03/2020 CLINICAL HISTORY: pain COMPARISON: KUB from 06/07/2016 TECHNIQUE: Single view the pelvis is submitted. FINDINGS: No evidence for fracture, dislocation or bony lesion. Joint spaces are well-preserved. S I joints appear symmetric. Widening of the symphysis pubis is chronic in nature. IMPRESSION: 1. No acute fracture or dislocation seen. ICD 10 NO FRACTURE, INITIAL EVALUATION
[2020-05-03 15:28] LABS: Potassium 5.6 mmol/L (3.5-5.1)
[2020-05-03 15:32] LABS: INR 0.9 (<1.2); Partial Thromboplastin Time 24.3 sec (22.0-30.0); Prothrombin Time 9.7 sec (9.0-12.0)
[2020-05-03] MEDS: SODIUM CHLORIDE 0.9% 1,000 ML IV SCH (16:00)
[2020-05-03] MEDS ORDERED: NALOXONE 0.4 MG/ML 1 ML VIAL IV PRN (16:16)
[2020-05-03] MEDS ORDERED: AZITHROMYCIN 500 MG in SODIUM CHLORIDE 0.9% 250 ML IVPB STA (16:20)
[2020-05-03] MEDS ORDERED: cefTRIAXone IN SWFI 1,000 MG/10 ML SYRINGE IVP STA (16:20)
[2020-05-03 17:41] LABS: Appearance,Urine Cloudy (Clear); Bacteria,Urine Rare /hpf; Bilirubin,Urine Negative (Negative); Blood,Urine Negative (Negative); Color,Urine Yellow; Glucose,Urine (UA) Negative (Negative); Ketones,Urine Trace (Negative); Leukocyte Esterase,Urine Large (Negative); Mucus,Urine Rare /hpf; Nitrite,Urine Negative (Negative); Protein,Urine 2+ (Negative); RBC,Urine 13 /hpf (0-5); Specific Gravity,Urine 1.017 (1.001-1.035); Squamous Epithelial Cell,Urine 2 /hpf (0-4); Urobilinogen,Urine <2.0 mg/dL (<2.0); WBC,Urine 31 /hpf (0-5)
[2020-05-03 17:50] LABS: Amphetamine Screen,Urine Not Detected (NotDetected); Barbiturate Screen,Urine Not Detected (NotDetected); Benzodiazepines Screen,Urine Detected (NotDetected); Cocaine Screen,Urine Not Detected (NotDetected); Methadone Screen, Urine Not Detected (NotDetected); Opiate Screen,Urine Not Detected (NotDetected); Oxycodone Screen, Urine Not Detected (NotDetected); Phencyclidine Screen,Urine Not Detected (NotDetected); Tricyclic Antidepressant,Urine Not Detected (NotDetected); Urn Cannabinoid Scrn Not Detected (NotDetected)
[2020-05-03] MEDS ORDERED: ENALAPRILAT 1.25 MG/ML 1 ML VIAL IVP STA (17:58)
[2020-05-03] MEDS ORDERED: BACLOFEN 10 MG TAB PO PRN (19:21)
[2020-05-03] MEDS ORDERED: ALBUTEROL HFA INHALER INHALATION PRN (19:21)
[2020-05-03] MEDS ORDERED: METOPROLOL TARTRATE 50 MG TAB PO SCH (21:00)
[2020-05-03] MEDS: SYMBICORT 160-4.5 MCG INHALER INHALATION SCH (21:21)
[2020-05-03] MEDS: SODIUM BICARBONATE TAB 650 MG TAB PO SCH (22:05)
[2020-05-03] MEDS: cloNIDine HCL 0.1 MG TAB PO SCH (22:06)
[2020-05-03] MEDS: hydrALAZINE HCL 50 MG TAB PO SCH (22:06)
[2020-05-03 23:09] LABS: Glucose,Whole Blood 96 mg/dL (75-99)
[2020-05-03 23:49] LABS: ABG Base Excess -6.1 mmol/L; ABG HCO3 18 mmol/L (21-25); ABG Oxygen Saturation 98.1 % (94-97); ABG PCO2 26 mmHg (35-45); ABG PH 7.45 (7.35-7.45); ABG PO2 104 mmHg (83-108); ABG TCO2 19 mmol/L (19-24); Allen Test Performed? Yes
--- NOTE | 2020-05-04 00:04 | XR ---
EXAM: XR Chest, 1 View CLINICAL HISTORY: Shortness of breath. TECHNIQUE: Frontal view of the chest. COMPARISON: 05/03/2020. FINDINGS: Lungs: There is prominence of central pulmonary vascular. Probable early pulmonary edema at the mid lower lung zones. Pleural space: Small to moderate left pleural effusion. No pneumothorax. Heart: There is marked cardiomegaly. Pericardial effusion cannot be excluded. Mediastinum: Unremarkable. Bones/joints: Osteopenia. IMPRESSION: 1. Marked cardiomegaly. 2. Prominence of central pulmonary vasculature. 3. Left pleural effusion. 4. Findings are most compatible with incipient congestive heart failure. Clinical correlation is necessary. 5. Osteopenia.
[2020-05-04] MEDS: SODIUM CHLORIDE 0.9% 1,000 ML IV SCH ×3 (03:31→22:23)
[2020-05-04 04:15] LABS: Appearance,Urine Clear (Clear); Bilirubin,Urine Negative (Negative); Blood,Urine Negative (Negative); Color,Urine Yellow; Glucose,Urine (UA) Negative (Negative); Hyaline Casts,Urine 1 /lpf (0-2); Ketones,Urine Trace (Negative); Leukocyte Esterase,Urine Negative (Negative); Mucus,Urine Rare /hpf; Nitrite,Urine Negative (Negative); Protein,Urine 1+ (Negative); Specific Gravity,Urine 1.014 (1.001-1.035); Squamous Epithelial Cell,Urine 1 /hpf (0-4); Urobilinogen,Urine <2.0 mg/dL (<2.0); WBC,Urine 6 /hpf (0-5)
--- NOTE | 2020-05-04 07:38 | P.CRDCN ---
History of Present Illness Consult date: 05/04/20 History of present illness: This is a very pleasant 45-year-old to the chemical female patient with a past medical history significant for hypertension as well as hypertensive heart disease as well as morbid obesity and obstructive sleep apnea was transferred to the intensive care unit because of change in mental status associated with bradycardia. The patient was admitted to the hospital back in 2018 with evidence of heart failure clinically and at that point she underwent an echocardiogram which revealed normal left ventricular systolic function with evidence of severe left ventricular hypertrophy and evidence of hypertensive heart disease as well as aortic stenosis. She is somewhat a poor historian. She stated that her brought her to the emergency department because she did have some change in mental status and overall she was not feeling well. She does not recall having any symptoms of chest pain or chest discomfort or increasing into shortness of breath. No dizziness or lightheadedness or syncope. Initially she was admitted to the hospital and subsequently she was transferred to the intensive care unit. Apparently she did have a change in mental status and the A team was called to her where she was found to be bradycardic with heart rate in the 30s. Please note that the patient does have obstructive sleep apnea and that episode was happened at 11:00 at night. She was receiving metoprolol which was held. I did review the EKG in the chart and that revealed evidence of sinus rhythm without any significant ST or T-wave abnormalities and there is no documentation of severe sinus bradycardia. The patient has been maintaining a heart rate around 100 during her ICU admission. The chest x-ray showed findings consistent with heart failure. The BNP came in to be elevated at 5000. The first set of troponin came in to be also within normal limits. The EKG has a mentioned showed sinus rhythm with diffuse nonspecific ST and T wave abnormalities. At this point I advised obtain 2 more sets of serial cardiac enzymes to rule out any acute coronary event. I am going to start the patient on Lasix IV at 40 mg daily. She does have chronic kidney disease and we'll watch her kidney function very closely. I would hold the me toprolol at this point and restart the metoprolol later on with a smaller dose than what she had on before. Also will repeat the echocardiogram. Past Medical History Past Medical History: Coronary Artery Disease (CAD), Chest Pain / Angina, Heart Failure, Hypertension, Osteoarthritis (OA), Pneumonia, Renal Disease Additional Past Medical History / Comment(s): SVT, sinus pauses, anemia, chronic kidney disease, blood clots-pt stated took xarelto for awhile, arthritis bilateral knees, anemia, constipation History of Any Multi-Drug Resistant Organisms: None Reported Past Surgical History: Section, Hernia Repair Additional Past Surgical History / Comment(s): adominal hernia repair with mesh, cysts removed from stomach Past Anesthesia/Blood Transfusion Reactions: No Reported Reaction Additional Past Anesthesia/Blood Transfusion Reaction / Comment(s): Pt has received blood in the past without reaction. Past Psychological History: Anxiety Additional Psychological History / Comment(s): Pt takes ativan when needed for anxiety and states it helps. Pt lives at home with her 2 children. is independant. nopets. Smoking Status: Never smoker Past Alcohol Use History: None Reported Past Drug Use History: None Reported - Past Family History Father Family Medical History: Congestive Heart Failure (CHF) Additional Family Medical History / Comment(s): Father from CHF. Mother Family Medical History: Cancer, Hypertension, Sleep Apnea/CPAP/BIPAP Additional Family Medical History / Comment(s): Mother has had cancer removed from ear/head. Medications and Allergies Home Medications Medication Instructions Recorded Confirmed Type Baclofen [Lioresal] 10 mg PO TID PRN 11/05/17 05/03/20 History Budesonide/Formoterol Fumarate 2 puff INHALATION RT-BID 11/05/17 05/03/20 History [Symbicort 160-4.5 Mcg Inhaler] Omeprazole 20 mg PO DAILY 11/05/17 05/03/20 History minoxidiL [Minoxidil] 10 mg PO DAILY 11/05/17 05/03/20 History Aspirin 81 mg PO DAILY #100 chew 01/09/18 05/03/20 Rx Ibuprofen [Motrin] 800 mg PO QID PRN 01/04/19 05/03/20 History LORazepam [Ativan] 2 mg PO TID PRN 01/04/19 05/03/20 History Metoprolol Tartrate [Lopressor] 100 mg PO BID 01/04/19 05/03/20 History Potassium Chloride [Klor-Con 20 20 meq PO DAILY 01/04/19 05/03/20 History Packets] Sodium Bicarbonate 325 mg PO BID 01/04/19 05/03/20 History Spironolactone [Aldactone] 25 mg PO DAILY 01/04/19 05/03/20 History cloNIDine HCL 0.3 mg PO TID 01/04/19 05/03/20 History hydrALAZINE HCL [Apresoline] 100 mg PO TID 01/04/19 05/03/20 History Albuterol Sulfate [Ventolin HFA] 1 - 2 puff INHALATION RT-QID PRN 05/03/20 05/03/20 History Furosemide [Lasix] 40 mg PO DAILY 05/03/20 05/03/20 History Allergies Allergy/AdvReac Type Severity Reaction Status Date / Time No Known Allergies Allergy Verified 05/03/20 14:35 Physical Exam Vitals: Vital Signs Temp Pulse Pulse Resp BP BP Pulse Ox 05/04/20 07:00 89 13 124/79 99 05/04/20 06:00 111 H 17 130/102 93 L 05/04/20 05:00 105 H 16 113/66 97 05/04/20 04:00 117 H 17 128/88 96 05/04/20 03:00 98.5 F 115 H 17 71/53 97 05/04/20 02:00 100 12 124/89 99 05/04/20 01:00 105 H 17 114/89 98 05/04/20 00:41 97.7 F 116 H 17 116/85 98 05/03/20 23:10 98 05/03/20 19:40 128 H 16 05/03/20 19:01 98.2 F 128 H 16 119/81 96 05/03/20 18:44 98.6 F 110 H 18 140/125 97 05/03/20 17:45 125 H 18 171/109 97 05/03/20 16:24 107 H 18 163/107 96 05/03/20 15:00 100 18 167/90 100 05/03/20 13:35 98.6 F 100 18 133/97 94 L Intake and Output 05/03/20 05/04/20 05/04/20 22:59 06:59 14:59 Intake Total 500 50 Output Total 150 45 Balance 500 -150 5 Intake: Oral 500 50 Output: Urine 150 45 Other: Voiding Method Toilet Indwelling Catheter # Voids 1 Weight 136.078 kg - Constitutional General appearance: no acute distress - Respiratory Respiratory: bilateral: diminished - Cardiovascular Rhythm: regular Heart sounds: normal: S1, S2 Abnormal Heart Sounds: systolic murmur Results 05/03/20 14:13 05/03/20 14:13 Cardiac Enzymes 05/03/20 05/03/20 Range/Units 14:13 14:13 AST 61 H (14-36) U/L Troponin I 0.032 (0.000-0.034) ng/mL Coagulation 05/03/20 Range/Units 15:09 PT 9.7 (9.0-12.0) sec APTT 24.3 (22.0-30.0) sec CBC 05/03/20 Range/Units 14:13 WBC 10.2 (3.8-10.6) k/uL RBC 5.22 (3.80-5.40) m/uL Hgb 9.1 L (11.4-16.0) gm/dL Hct 35.4 (34.0-46.0) % Plt Count 299 (150-450) k/uL Comprehensive Metabolic Panel 05/03/20 Range/Units 14:13 Sodium 141 (137-145) mmol/L Potassium 5.6 H (3.5-5.1) mmol/L Chloride 114 H (98-107) mmol/L Carbon Dioxide 19 L (22-30) mmol/L BUN 22 H (7-17) mg/dL Creatinine 1.44 H (0.52-1.04) mg/dL Glucose 93 (74-99) mg/dL Calcium 9.1 (8.4-10.2) mg/dL AST 61 H (14-36) U/L ALT 35 H (4-34) U/L Alkaline Phosphatase 111 (38-126) U/L Total Protein 8.7 H (6.3-8.2) g/dL Albumin 4.2 (3.5-5.0) g/dL Current Medications Generic Name Dose Route Start Last Admin Trade Name Freq PRN Reason Stop Dose Admin Acetaminophen 650 mg 05/03/20 16:16 Tylenol Tab PO Q6HR PRN Mild Pain or Fever > 100.5 Albuterol Sulfate 1 - 2 puff 05/03/20 19:21 Ventolin Hfa Inhaler INHALATION RT-QID PRN Shortness Of Breath Aspirin 81 mg 05/04/20 09:00 Aspirin PO DAILY FARRAH Baclofen 10 mg 05/03/20 19:21 Lioresal PO TID PRN Muscle Spasm Budesonide/Formoterol Fumarate 2 puff 05/03/20 20:00 05/03/20 21:21 Symbicort 160-4.5 Mcg Inhaler INHALATION Not Given RT-BID FARRAH Clonidine 0.3 mg 05/03/20 22:00 05/03/20 22:06 Catapres PO 0.3 mg TID FARRAH Administration Furosemide 40 mg 05/04/20 09:00 Lasix IV DAILY FARRAH Hydralazine HCl 100 mg 05/03/20 22:00 05/03/20 22:06 Apresoline PO 100 mg TID FARRAH Administration Sodium Chloride 1,000 mls @ 100 mls/hr 05/03/20 15:45 05/04/20 03:31 Saline 0.9% IV 100 mls/hr .Q10H FARRAH Administration Minoxidil 10 mg 05/04/20 09:00 Loniten PO DAILY FARRAH Naloxone HCl 0.2 mg 05/03/20 16:16 Narcan IV Q2M PRN Opioid Reversal Pantoprazole Sodium 40 mg 05/04/20 07:30 Protonix PO DAILY@0730 FARRAH Sodium Bicarbonate 325 mg 05/03/20 21:00 05/03/20 22:05 Sodium Bicarbonate Tab PO 325 mg BID FARRAH Administration Intake and Output 05/03/20 05/04/20 05/04/20 22:59 06:59 14:59 Intake Total 500 50 Output Total 150 45 Balance 500 -150 5 Intake: Oral 500 50 Output: Urine 150 45 Other: Voiding Method Toilet Indwelling Catheter # Voids 1 Weight 136.078 kg 05/03/20 14:13 05/03/20 14:13 Assessment and Plan Assessment: Assessment #1 bradycardia likely related to sleep apnea #2 morbid obesity #3 obstructive sleep apnea #4 heart failure with probably preserved LV function #5 chronic kidney disease Plan #1 hold the metoprolol at this point and restart the metoprolol at a smaller dose later on #2 start the patient on a small dose of Lasix IV and continue monitor the kidney function and electrolytes #3 obtain TSH #4 obtain an echocardiogram was Doppler #5 serial cardiac enzymes #6 follow-up with the patient
[2020-05-04 08:16] LABS: Calcium 8.8 mg/dL (8.4-10.2); Potassium 3.6 mmol/L (3.5-5.1)
[2020-05-04 08:21] LABS: INR 0.9 (<1.2)
[2020-05-04 08:22] LABS: Prothrombin Time 9.9 sec (9.0-12.0)
[2020-05-04 08:24] LABS: Anisocytosis Moderate; Basophils # (A) 0.1 k/uL (0-0.2); Basophils % (A) 1 %; Eosinophils # (A) 0.1 k/uL (0-0.7); Eosinophils % (A) 1 %; HCT 32.1 % (34.0-46.0); HGB 8.5 gm/dL (11.4-16.0); Hypochromasia Marked; Lymphocytes # (A) 1.5 k/uL (1.0-4.8); Lymphocytes % (A) 16 %; MCH 18.5 pg (25.0-35.0); MCHC 26.6 g/dL (31.0-37.0); MCV 69.3 fL (80.0-100.0); Mean Platelet Volume 9.6; Microcytosis Marked; Monocytes # (A) 0.4 k/uL (0-1.0); Monocytes % (A) 4 %; Neutrophils # (A) 7.2 k/uL (1.3-7.7); Neutrophils % (A) 76 %; Platelet Count 294 k/uL (150-450); Poikilocytosis Slight; RBC 4.63 m/uL (3.80-5.40); RDW 20.4 % (11.5-15.5); WBC 9.5 k/uL (3.8-10.6)
[2020-05-04 08:25] LABS: Partial Thromboplastin Time 21.4 sec (22.0-30.0)
[2020-05-04 08:36] LABS: Creatine Kinase MB 2.8 ng/mL (0.0-2.4)
[2020-05-04] MEDS ORDERED: FUROSEMIDE 10 MG/ML 4 ML VIAL IV SCH (09:00)
[2020-05-04 09:10] LABS: Troponin I 0.119 ng/mL (0.000-0.034)
[2020-05-04] MEDS: hydrALAZINE HCL 50 MG TAB PO SCH ×3 (09:35→21:49)
[2020-05-04] MEDS: SODIUM BICARBONATE TAB 650 MG TAB PO SCH ×2 (09:35→19:57)
[2020-05-04] MEDS: ASPIRIN 81 MG PO SCH (09:35)
[2020-05-04] MEDS: PANTOPRAZOLE 40 MG TABLET PO SCH (09:35)
[2020-05-04] MEDS: cloNIDine HCL 0.1 MG TAB PO SCH ×3 (09:36→21:49)
[2020-05-04] MEDS: SODIUM FERRIC GLUCONAT-SUCROSE 125 MG in SODIUM CHLORIDE 0.9% 100 ML IVPB SCH (09:38)
--- NOTE | 2020-05-04 09:57 | P.CNNES ---
History of Present Illness Consult date: 05/04/20 Requesting physician: Robert Garza Reason for Consult: altered mental status History of Present Illness: Mrs. Sorto is a 45-year-old right-handed female with medical history of hypertension, obstructive sleep apnea that is not using her CPAP machine, heart failure, CKD as well as morbid obesity that presented to the emergency department on 05/03/2024 episode of confusion and sleepiness. Per ED note the patient had fallen the day prior presentation and was on the ground for approximately 12 hours. She had a similar episode about within the past several weeks and was evaluated outside hospital. Per the patient's she stated that she was on the floor watching L vision with her 10-year-old son then the she noticed that she had the urinary incontinence she does not know how that happened. She does remember that she had garbled speech but she could not tell me exactly what was she was saying. As a result she asked her to get to get her out of the floor since that she had an episode of urinary incontinence. He told her that he see to call EMS. She denies of any tongue soreness or being told that she had foaming around the mouth or jerk in the of any of the extremities. She denies having any history of seizures. She denies of any fevers any chills and he coughs or any sick contacts. She said that that she's been staying at home trying to avoid the any anybody to avoid the COVID 19. She denies and being started on any new medications or having her medications being switched. Regarding her history she said that the was normal no complication. No history of seizures as a child. She does have cousins that have that you have seizure as well as a nephew other than that she appears to have seizure or any siblings have any seizure. On presentation her initial blood pressure was 133/97 the heart rate was 100, respiratory rate was 18, pulse ox is 94 nasal cannula on 2 L temperature initial temperature was 98.6 Fahrenheit orally. Since she's been in the hospital she has not had that any fevers. Cardiology team is on board regarding her head being found with bradycardia with a heart rate in the 30s. the feel of the bradycardias likely related to her option of sleep apnea as since the her episode happened at 11 PM workup in the hospital consisted of: CT of the head which was reported as no acute intracranial process. chest x-ray was reported as right infrahilar patchy density noted may reflect developing infiltrates. EKG was reported as sinus tachycardia, voltage criteria for left ventricle hypertrophy, T-wave abnormality, consider lateral ischemia. Ventricular rate is 108. Her initial urinalysis was8 urine color was yellow it appeared cloudy, the l eukocyte esterase was large the urine bacteria was rare, urine protein was 2 positive. Note the patient has obstructive sleep apnea and she does not use her CPAP machine. According to the ICU team, they felt like her sleep apnea might be causing her confusion. Review of Systems Review of system: The 12 point system was reviewed and apparent positive and negative per HPI. Past Medical History Past Medical History: Coronary Artery Disease (CAD), Chest Pain / Angina, Heart Failure, Hypertension, Osteoarthritis (OA), Pneumonia, Renal Disease Additional Past Medical History / Comment(s): SVT, sinus pauses, anemia, chronic kidney disease, blood clots-pt stated took xarelto for awhile, arthritis bilateral knees, anemia, constipation History of Any Multi-Drug Resistant Organisms: None Reported Past Surgical History: Section, Hernia Repair Additional Past Surgical History / Comment(s): adominal hernia repair with mesh, cysts removed from stomach Past Anesthesia/Blood Transfusion Reactions: No Reported Reaction Additional Past Anesthesia/Blood Transfusion Reaction / Comment(s): Pt has received blood in the past without reaction. Past Psychological History: Anxiety Additional Psychological History / Comment(s): Pt takes ativan when needed for anxiety and states it helps. Pt lives at home with her 2 children. is independant. nopets. Smoking Status: Never smoker Past Alcohol Use History: None Reported Past Drug Use History: None Reported - Past Family History Father Family Medical History: Congestive Heart Failure (CHF) Additional Family Medical History / Comment(s): Father from CHF. Mother Family Medical History: Cancer, Hypertension, Sleep Apnea/CPAP/BIPAP Additional Family Medical History / Comment(s): Mother has had cancer removed from ear/head. Medications and Allergies Home Medications Medication Instructions Recorded Confirmed Type Baclofen [Lioresal] 10 mg PO TID PRN 11/05/17 05/03/20 History Budesonide/Formoterol Fumarate 2 puff INHALATION RT-BID 11/05/17 05/03/20 History [Symbicort 160-4.5 Mcg Inhaler] Omeprazole 20 mg PO DAILY 11/05/17 05/03/20 History minoxidiL [Minoxidil] 10 mg PO DAILY 11/05/17 05/03/20 History Aspirin 81 mg PO DAILY #100 chew 01/09/18 05/03/20 Rx Ibuprofen [Motrin] 800 mg PO QID PRN 01/04/19 05/03/20 History LORazepam [Ativan] 2 mg PO TID PRN 01/04/19 05/03/20 History Metoprolol Tartrate [Lopressor] 100 mg PO BID 01/04/19 05/03/20 History Potassium Chloride [Klor-Con 20 20 meq PO DAILY 01/04/19 05/03/20 History Packets] Sodium Bicarbonate 325 mg PO BID 01/04/19 05/03/20 History Spironolactone [Aldactone] 25 mg PO DAILY 01/04/19 05/03/20 History cloNIDine HCL 0.3 mg PO TID 01/04/19 05/03/20 History hydrALAZINE HCL [Apresoline] 100 mg PO TID 01/04/19 05/03/20 History Albuterol Sulfate [Ventolin HFA] 1 - 2 puff INHALATION RT-QID PRN 05/03/20 05/03/20 History Furosemide [Lasix] 40 mg PO DAILY 05/03/20 05/03/20 History Allergies Allergy/AdvReac Type Severity Reaction Status Date / Time No Known Allergies Allergy Verified 05/03/20 14:35 Physical Examination - Vital Signs Vital Signs: Vital Signs Temp Pulse Pulse Resp BP BP Pulse Ox 05/04/20 07:00 89 13 124/79 99 05/04/20 06:00 111 H 17 130/102 93 L 05/04/20 05:00 105 H 16 113/66 97 05/04/20 04:00 117 H 17 128/88 96 05/04/20 03:00 98.5 F 115 H 17 71/53 97 05/04/20 02:00 100 12 124/89 99 05/04/20 01:00 105 H 17 114/89 98 05/04/20 00:41 97.7 F 116 H 17 116/85 98 05/03/20 23:10 98 05/03/20 19:40 128 H 16 05/03/20 19:01 98.2 F 128 H 16 119/81 96 05/03/20 18:44 98.6 F 110 H 18 140/125 97 05/03/20 17:45 125 H 18 171/109 97 05/03/20 16:24 107 H 18 163/107 96 05/03/20 15:00 100 18 167/90 100 05/03/20 13:35 98.6 F 100 18 133/97 94 L Intake and Output 05/03/20 05/04/20 05/04/20 22:59 06:59 14:59 Intake Total 500 50 Output Total 150 45 Balance 500 -150 5 Intake: Oral 500 50 Output: Urine 150 45 Other: Voiding Method Toilet Indwelling Catheter # Voids 1 Weight 136.078 kg GENERAL: The patient is lying in bed and is not in acute distress. CHEST: The heart rate is regular rate rhythm. No murmurs to auscultation. LUNG: Clear to auscultation bilaterally no wheezing noted throughout. Not lab ored breathing. ABDOMEN/GI: Bowel sounds present in all 4 quadrants. No tenderness to palpation throughout. NEUROLOGICAL: Higher mental function: The patient is awake, alert, oriented to self, place. She state it was March. Patient is following simple commands. No aphasia and no neglect. Cranial nerves: The pupils are round, equal and reactive to light and accommodation. Visual [place] are full to confrontation throughout. Extraocular movement is intact no nystagmus is noted. Facial sensation is normal to touch throughout. The facial strength is normal throughout. Hearing is normal bila terally to hand rub. Tongue is midline and moved [id number] without any difficulty. No dysarthria is noted. Shoulder shrug is normal bilaterally. Motor: The strength is 5 over 5 throughout. Normal tone and bulk. Cerebellum: Normal finger to nose heel to chin bilaterally. Sensation: Sensation is normal to touch throughout. Reflexes (right/left):2+ Plantars are downgoing bilaterally. Results d-dimer is 1.36, PT is 9.7, INR is 0.9, PTT is 24.3. initial potassium was 5.6 the repeated one which was today is 3.6 initial creatinine was 1.4 4 repeat 1 was 1.59 AST of 61 ALTs of 36 total bilirubin is 0.8. Her initial serum glucose is 93 - Laboratory Findings CBC and BMP: 05/04/20 07:42 05/04/20 07:42 Abnormal Lab Findings: Abnormal Labs 05/03/20 05/03/20 05/03/20 14:13 14:13 14:13 Hgb 9.1 L MCV 67.7 L MCH 17.4 L MCHC 25.7 L RDW 20.5 H Neutrophils # 7.9 H D-Dimer ABG pCO2 ABG HCO3 ABG O2 Saturation VBG pH 7.23 L VBG HCO3 20 L Potassium 5.6 H Chloride 114 H Carbon Dioxide 19 L BUN 22 H Creatinine 1.44 H AST 61 H ALT 35 H Total Protein 8.7 H Urine Appearance Urine Protein Urine Ketones Ur Leukocyte Esterase Urine RBC Urine WBC Urine Bacteria Urine Mucus U Benzodiazepines Scrn 05/03/20 05/03/20 05/03/20 17:17 21:49 23:45 Hgb MCV MCH MCHC RDW Neutrophils # D-Dimer 1.36 H ABG pCO2 26 L ABG HCO3 18 L ABG O2 Saturation 98.1 H VBG pH VBG HCO3 Potassium Chloride Carbon Dioxide BUN Creatinine AST ALT Total Protein Urine Appearance Cloudy H Urine Protein 2+ H Urine Ketones Trace H Ur Leukocyte Esterase Large H Urine RBC 13 H Urine WBC 31 H Urine Bacteria Rare H Urine Mucus Rare H U Benzodiazepines Scrn Detected H 05/04/20 04:00 Hgb MCV MCH MCHC RDW Neutrophils # D-Dimer ABG pCO2 ABG HCO3 ABG O2 Saturation VBG pH VBG HCO3 Potassium Chloride Carbon Dioxide BUN Creatinine AST ALT Total Protein Urine Appearance Urine Protein 1+ H Urine Ketones Trace H Ur Leukocyte Esterase Urine RBC Urine WBC 6 H Urine Bacteria Urine Mucus Rare H U Benzodiazepines Scrn Assessment and Plan Assessment: Mrs. Sorto is a 45-year-old right-handed female with medical history of hypertension, obstructive sleep apnea that is not using her CPAP machine, heart failure, CKD as well as morbid obesity that presented to the emergency department on 05/03/2024 episode of confusion and sleepiness. She said she had an episode of urinary incontinence which she does not know how it happened but denies any jerking, foaming around the mouth, tongue bite. She is not compliant with CPAP machine. Transient episode of Encephalopathy likely from non-compliant with her CPAP machine. Unlikely seizure. Urinalysis was suspicious of your tract infection Obstructive sleep apnea Episode of bradycardia Chronic kidney disease Plan: Unlikely this is seizure and likely related to obstructive sleep apnea. We will order a routine EEG. Will not start anti-epileptic medication unless there is convincing epileptiform discharges or seizure seen on EEG. For the bradycardia cardiology is on board and plan is to get a repeat echocardiogram. Running the possible suspicion of urinary tract infection we'll defer the management to the primary team and ICU team. Regarding her management of her NIR we will defer to pulmonary team. Thanks for the consultation. Joselito Jorgensen MD Neuro-hospitalist Time with Patient: Greater than 30
--- NOTE | 2020-05-04 10:00 | ECHOF ---
Referral Reason:chf MEASUREMENTS -------- HEIGHT: 170.2 cm WEIGHT: 136.1 kg BP: 118/107 RVIDd: 3.3 cm (< 3.3) IVSd: 1.8 cm (0.6 - 1.1) LVIDd: 4.2 cm (3.9 - 5.3) LVPWd: 2.1 cm (0.6 - 1.1) IVSs: 2.5 cm LVIDs: 2.6 cm LVPWs: 2.5 cm LA Diam: 3.9 cm (2.7 - 3.8) Ao Diam: 3.4 cm (2.0 - 3.7) AV Cusp: 2.0 cm (1.5 - 2.6) MV EXCURSION: 20.304 mm (> 18.000) MV EF SLOPE: 95 mm/s (70 - 150) EPSS: 0.5 cm RAP: 5.00 mmHg RVSP: 51.92 mmHg FINDINGS -------- Resting tachycardia (HR>100bpm). This was a technically adequate study. The left ventricular size is normal. There is severe concentric left ventricular hypertrophy. Lef t ventricular systolic function is hyperdynamic with an estimated EF of >70%. The right ventricle is mildly enlarged. The left atrial size is normal. The right atrium is normal in size. Interatrial and interventricular septum intact. The aortic valve was not well visualized. There is trace mitral regurgitation. Mild tricuspid regurgitation present. There is moderate pulmonary hypertension. The right ventric ular systolic pressure, as measured by Doppler, is 51.92mmHg. The pulmonic valve was not well visualized. The aortic root size is normal. Normal inferior vena cava with normal inspiratory collapse consistent with estimated right atrial pre ssure of 5 mmHg. There is no pericardial effusion. CONCLUSIONS -------- 1. Resting tachycardia (HR>100bpm). 2. The left ventricular size is normal. 3. There is severe concentric left ventricular hypertrophy. 4. Left ventricular systolic function is hyperdynamic with an estimated EF of >70%. 5. The right ventricle is mildly enlarged. 6. The aortic valve was not well visualized. 7. There is trace mitral regurgitation. 8. Mild tricuspid regurgitation present. 9. There is moderate pulmonary hypertension. 10. The right ventricular systolic pressure, as measured by Doppler, is 51.92mmHg. 11. There is no pericardial effusion. [employer]CTOR: Amber Galvin RDCS
[2020-05-04] MEDS: SYMBICORT 160-4.5 MCG INHALER INHALATION SCH ×2 (10:53→20:19)
--- NOTE | 2020-05-04 13:16 | P.CNPUL ---
History of Present Illness Consult date: 05/04/20 Reason for consult: COPD, obstructive sleep apnea Chief complaint: Altered mentation History of present illness: This is a morbidly obese 45-year-old -Nepalese female patient with long history of hypertension and hypertensive heart disease with severe concentric LVH and addition to history of obstructive sleep apnea secondary to morbid obesity and her NIR has been severe with an AHI of 45 and the patient has been titrated to CPAP pressure of 16 cm of water along with oxygen at 2 L per minute nasal cannula based on this he decided was done back in 2018. She claims that she has been compliant to CPAP therapy. The patient came into the hospital because of some altered mentation. She was also noted to have some cardiac rhythm problems were the patient was going tachycardic and bradycardic. Apparently, the patient was brought in to the hospital upon the request of her who brought her to the emergency department because she was having altered mentation and overall she was not feeling well. The patient does not recall having any of the symptoms. She denied having any chest pain or cough or sputum production. She denies having any motor weakness in upper or lower extremities. No seizure activity has been noted. She was initially admitted to the medical floor and subsequently she got transferred to the intensive care unit as the patient was found to be bradycardic and her heart rate was in the mid 30s. Cardiology consulted and the patient. EKG showed a sinus bradycardia. I'm not absolutely sure whether this bradycardia occurs once the patient was sleeping and the relationship between the bradycardia and sleep apnea needs to be established. For now, the patient is in the ICU. She is maintaining a heart rate of 100. Her chest x-ray showing cardiomegaly with some mild four-vessel congestion. ProBNP level is elevated at 5000. The first set of troponin is negative. She was started on IV Lasix 40 mg once every 24 hours. Echocardiogram showed a preserved LV function. The patient has iron deficiency anemia. Her hemoglobin at 8.5 with a MCV of 69. Her blood gases showed a pH of 7.45 with a pCO2 of 26 and pO2 of 104. She has chronic kidney disease related to hypertension with a creatinine of 1.5 for now. CAT scan of the brain was done and showed no acute cardio pulmonary process. The patient will be also seen by neurology. Review of Systems Constitutional: Reports daytime sleepiness, Reports fatigue, Reports lethargy, Reports weight gain Eyes: denies as per HPI, denies blurred vision, denies bulging eye, denies decreased vision, denies diplopia, denies discharge, denies dry eye, denies irritation, denies itching, denies pain, denies photophobia, denies loss of peripheral vision, denies loss of vision, denies tunnel vision/blind spots Ears: deny: decreased hearing, ear discharge, earache, tinnitus Ears, nose, mouth and throat: Reports as per HPI Breasts: absent: as per HPI, change in shape, gynecomastia, masses, nipple discharge, pain, skin changes, swelling Cardiovascular: Reports decreased exercise tolerance, Reports irregular heart beat Respiratory: Reports dyspnea, Reports sleep apnea, Reports snoring Gastrointestinal: Reports as per HPI Genitourinary: Reports as per HPI Menstruation: Reports as per HPI Musculoskeletal: Reports as per HPI Musculoskeletal: absent: ankle pain, ankle stiffness, ankle swelling Integumentary: Reports as per HPI Neurological: Reports as per HPI Psychiatric: Reports as per HPI Endocrine: Reports as per HPI Past Medical History Past Medical History: Coronary Artery Disease (CAD), Chest Pain / Angina, Heart Failure (Diastolic in nature with hypertensive heart disease), Hypertension, Osteoarthritis (OA), Renal Disease, Sleep Apnea/CPAP/BIPAP Additional Past Medical History / Comment(s): SVT, sinus pauses, anemia, chronic kidney disease, blood clots-pt stated took xarelto for awhile, arthritis bilateral knees, anemia, constipation History of Any Multi-Drug Resistant Organisms: None Reported Past Surgical History: Section, Hernia Repair Additional Past Surgical History / Comment(s): adominal hernia repair with mesh, cysts removed from stomach Past Anesthesia/Blood Transfusion Reactions: No Reported Reaction Additional Past Anesthesia/Blood Transfusion Reaction / Comment(s): Pt has received blood in the past without reaction. Past Psychological History: Anxiety Additional Psychological History / Comment(s): Pt takes ativan when needed for anxiety and states it helps. Pt lives at home with her 2 children. is independant. nopets. Smoking Status: Never smoker Past Alcohol Use History: None Reported Past Drug Use History: None Reported - Past Family History Father Family Medical History: Congestive Heart Failure (CHF) Additional Family Medical History / Comment(s): Father from CHF. Mother Family Medical History: Cancer, Hypertension, Sleep Apnea/CPAP/BIPAP Additional Family Medical History / Comment(s): Mother has had cancer removed from ear/head. Medications and Allergies Home Medications Medication Instructions Recorded Confirmed Type Baclofen [Lioresal] 10 mg PO TID PRN 11/05/17 05/03/20 History Budesonide/Formoterol Fumarate 2 puff INHALATION RT-BID 11/05/17 05/03/20 History [Symbicort 160-4.5 Mcg Inhaler] Omeprazole 20 mg PO DAILY 11/05/17 05/03/20 History minoxidiL [Minoxidil] 10 mg PO DAILY 11/05/17 05/03/20 History Aspirin 81 mg PO DAILY #100 chew 01/09/18 05/03/20 Rx Ibuprofen [Motrin] 800 mg PO QID PRN 01/04/19 05/03/20 History LORazepam [Ativan] 2 mg PO TID PRN 01/04/19 05/03/20 History Metoprolol Tartrate [Lopressor] 100 mg PO BID 01/04/19 05/03/20 History Potassium Chloride [Klor-Con 20 20 meq PO DAILY 01/04/19 05/03/20 History Packets] Sodium Bicarbonate 325 mg PO BID 01/04/19 05/03/20 History Spironolactone [Aldactone] 25 mg PO DAILY 01/04/19 05/03/20 History cloNIDine HCL 0.3 mg PO TID 01/04/19 05/03/20 History hydrALAZINE HCL [Apresoline] 100 mg PO TID 01/04/19 05/03/20 History Albuterol Sulfate [Ventolin HFA] 1 - 2 puff INHALATION RT-QID PRN 05/03/20 05/03/20 History Furosemide [Lasix] 40 mg PO DAILY 05/03/20 05/03/20 History Allergies Allergy/AdvReac Type Severity Reaction Status Date / Time No Known Allergies Allergy Verified 05/03/20 14:35 Physical Exam Vitals: Vital Signs Temp Pulse Pulse Resp BP BP Pulse Ox 05/04/20 12:00 114 H 21 140/81 05/04/20 11:00 113 H 17 05/04/20 10:00 114 H 15 05/04/20 09:00 116 H 17 118/107 97 05/04/20 08:00 111 H 14 124/79 98 05/04/20 07:00 89 13 124/79 99 05/04/20 06:00 111 H 17 130/102 93 L 05/04/20 05:00 105 H 16 113/66 97 05/04/20 04:00 117 H 17 128/88 96 05/04/20 03:00 98.5 F 115 H 17 71/53 97 05/04/20 02:00 100 12 124/89 99 05/04/20 01:00 105 H 17 114/89 98 05/04/20 00:41 97.7 F 116 H 17 116/85 98 05/03/20 23:10 98 05/03/20 19:40 128 H 16 05/03/20 19:01 98.2 F 128 H 16 119/81 96 05/03/20 18:44 98.6 F 110 H 18 140/125 97 05/03/20 17:45 125 H 18 171/109 97 05/03/20 16:24 107 H 18 163/107 96 05/03/20 15:00 100 18 167/90 100 05/03/20 13:35 98.6 F 100 18 133/97 94 L Intake and Output 05/03/20 05/04/20 05/04/20 22:59 06:59 14:59 Intake Total 500 50 Output Total 150 145 Balance 500 -150 -95 Intake: Oral 500 50 Output: Urine 150 145 Other: Voiding Method Toilet Indwelling Catheter Indwelling Catheter # Voids 1 Weight 136.078 kg Morbidly obese, comfortable likely distress BMI of 47 Head exam was generally normal. There was no scleral icterus or corneal arcus. Mucous membranes were moist. Neck was supple and without jugular venous distension, thyromegaly, or carotid bruits. Carotids were easily palpable bilaterally. There was no adenopathy. Mallampati class IV and the patient has no significant neck masses. There is significant crowding of the posterior oropharynx. Lungs sounds are diminished bilaterally with diminished breath on the lung bases. No wheezes or rhonchi. Cardiac exam revealed the PMI to be normally situated and sized. The rhythm was regular and no extrasystoles were noted during several minutes of auscultation. The first and second heart sounds were normal and physiologic splitting of the second heart sound was noted. There were no murmurs, rubs, clicks, or gallops. Abdomen is obese soft nontender. Organs cannot be accurately palpated. Examination of the extremities revealed easily palpable radial, femoral and pedal pulses. There was no cyanosis, clubbing or edema. Examination of the skin revealed no evidence of significant rashes, suspicious appearing nevi or other concerning lesions. Neurologically the patient is awake and alert and is no focal logical deficits. Results - Laboratory Findings CBC and BMP: 05/04/20 07:42 05/04/20 07:42 ABG ABG pH 7.45 (7.35-7.45) 05/03/20 23:45 ABG pCO2 26 mmHg (35-45) L 05/03/20 23:45 ABG pO2 104 mmHg (83-108) 05/03/20 23:45 ABG O2 Saturation 98.1 % (94-97) H 05/03/20 23:45 PT/INR, D-dimer PT 9.9 sec (9.0-12.0) 05/04/20 07:42 INR 0.9 (<1.2) 05/04/20 07:42 D-Dimer 1.36 mg/L FEU (<0.60) H 05/03/20 21:49 Abnormal lab findings: Abnormal Labs 05/03/20 05/03/20 05/03/20 14:13 14:13 14:13 Hgb 9.1 L Hct MCV 67.7 L MCH 17.4 L MCHC 25.7 L RDW 20.5 H Neutrophils # 7.9 H APTT D-Dimer ABG pCO2 ABG HCO3 ABG O2 Saturation VBG pH 7.23 L VBG HCO3 20 L Potassium 5.6 H Chloride 114 H Carbon Dioxide 19 L BUN 22 H Creatinine 1.44 H AST 61 H ALT 35 H CK-MB (CK-2) Troponin I Total Protein 8.7 H Urine Appearance Urine Protein Urine Ketones Ur Leukocyte Esterase Urine RBC Urine WBC Urine Bacteria Urine Mucus U Benzodiazepines Scrn 05/03/20 05/03/20 05/03/20 17:17 21:49 23:45 Hgb Hct MCV MCH MCHC RDW Neutrophils # APTT D-Dimer 1.36 H ABG pCO2 26 L ABG HCO3 18 L ABG O2 Saturation 98.1 H VBG pH VBG HCO3 Potassium Chloride Carbon Dioxide BUN Creatinine AST ALT CK-MB (CK-2) Troponin I Total Protein Urine Appearance Cloudy H Urine Protein 2+ H Urine Ketones Trace H Ur Leukocyte Esterase Large H Urine RBC 13 H Urine WBC 31 H Urine Bacteria Rare H Urine Mucus Rare H U Benzodiazepines Scrn Detected H 05/04/20 05/04/20 05/04/20 04:00 07:42 07:42 Hgb Hct MCV MCH MCHC RDW Neutrophils # APTT 21.4 L D-Dimer ABG pCO2 ABG HCO3 ABG O2 Saturation VBG pH VBG HCO3 Potassium Chloride Carbon Dioxide BUN Creatinine AST ALT CK-MB (CK-2) 2.8 H Troponin I 0.119 H* Total Protein Urine Appearance Urine Protein 1+ H Urine Ketones Trace H Ur Leukocyte Esterase Urine RBC Urine WBC 6 H Urine Bacteria Urine Mucus Rare H U Benzodiazepines Scrn 05/04/20 05/04/20 07:42 07:42 Hgb 8.5 L Hct 32.1 L MCV 69.3 L MCH 18.5 L MCHC 26.6 L RDW 20.4 H Neutrophils # APTT D-Dimer ABG pCO2 ABG HCO3 ABG O2 Saturation VBG pH VBG HCO3 Potassium Chloride 115 H Carbon Dioxide 21 L BUN 23 H Creatinine 1.59 H AST ALT CK-MB (CK-2) Troponin I Total Protein Urine Appearance Urine Protein Urine Ketones Ur Leukocyte Esterase Urine RBC Urine WBC Urine Bacteria Urine Mucus U Benzodiazepines Scrn - Diagnostic Findings Chest x-ray: image reviewed Assessment and Plan Plan: 1 altered mentation, fully recovered and the patient has a normal CAT scan of the brain. No focal neurological deficits. Neuro exam is within normal limits and neurology's in consultation. Exact cause is not clear. Consider cardiac arrhythmias versus sleep apnea contributing to her altered mentation 2 severe obstructive sleep apnea with an AHI of 45 currently on CPAP at a pressure of 16 cm of water along with oxygen at 2 L. I do question her compliance data CPAP therapy and I need to check her CPAP machine and the compliance data to confirm that. 3 morbid obesity with a BMI of 47 4 hypertensive heart disease with concentric LVH, awaiting a follow-up echocardiogram to assess LV function 5 hypertension 6 chronic kidney disease probably related to hypertensive nephrosclerosis 7 bradycardia, sinus, could be related to sleep apnea. Cannot rule out underlying intrinsic cardiac arrhythmias 8 remote history of DVT 9 osteoarthritis 10 chronic iron deficiency anemia Plan We will ask the patient to bring in his CPAP unit for a compliance he check. His CPAP machine can be also used during her hospital stay. Check iron studies Replaced IV iron and the patient will be given 100 mg of IV iron 3 doses. She has had previous workup including EGD and colonoscopy both being negative regarding any major pathology contributing to iron deficiency anemia. Echocardiogram Cardiology evaluation regarding her ongoing cardiac arrhythmias Check free T4 and TSH Monitor renal function Neurology consultation
--- NOTE | 2020-05-04 15:18 | HP ---
HISTORY AND PHYSICAL CHIEF COMPLAINT: Delirium, weakness and mental status changes. HISTORY OF PRESENT ILLNESS: This is the first known admission for this 45-year-old morbidly obese female. Apparently, she was visiting in [place] where she suddenly became confused and delirious. She denied any headache, focal neurologic deficits, change in vision or hearing, chest pain, shortness of breath, palpitations, syncope, nausea, diarrhea, melena, hematemesis, urinary complaints, etc. She came to the emergency room where she was seen to be lethargic and confused. She was admitted. REVIEW OF SYSTEMS: Are as already presented. Past medical history and family history and social histories are revealed that she is not allergic to any medication. She has a long-standing history of malignant hypertension for which she takes numerous medications and has, apparently, been on these. She is morbidly obese with a BMI of 59.3 and weight of 345 pounds with a height of 5 feet 4 inches. MEDICATIONS: That she is on include omeprazole 20 mg once a day, furosemide 80 mg once a day, spironolactone 25 mg once a day, Toprol 100 mg twice a day, Ativan 2 mg t.i.d. p.r.n., clonidine 0.3 t.i.d., minoxidil 10 mg once a day, hydralazine 100 mg t.i.d., ibuprofen 800 q.i.d. p.r.n., baclofen 10 mg t.i.d., and trazodone 97-103 twice a day, KCl 20 mEq once a day, Ventolin HFA, potassium 20 mEq 3 times a day and Symbicort 160/4.5 two puffs b.i.d. She has never been a smoker and she does not drink. PHYSICAL EXAMINATION: Her blood pressure was 70/0 and her pulse was in the 140s. She is afebrile. In general, she appeared to be morbidly obese and agitated. Skin was dry. Head, ears, eyes, nose, mouth, and throat were normal and normal neck veins could not be assessed. Chest demonstrated breath sounds are difficult to hear with scattered rales. Cardiac exam was hard to hear, but she demonstrated a tachycardia of a rate of around 150. The abdomen is protuberant and could not be examined due to her obesity. There is no tenderness. Extremities are unremarkable. Neurologically, she is intact. She is admitted to the hospital diagnoses: 1. Delirium. 2. Tachycardia. 3. Hypotension. 4. Morbid obesity. 5. History of malignant hypertension. 6. Fluctuating pulse and blood pressure. PLAN: 1. Bedrest. 2. IV fluids. 3. D-dimer. 4. BNP. 5. Consult with Cardiology. MORENO / BRADLEY: [id number] /
--- NOTE | 2020-05-04 15:23 | PN ---
PROGRESS NOTE DATE OF SERVICE: 05/04/2020 CHIEF COMPLAINT: Delirium, confusion, hypotension and tachycardia. HISTORY OF PRESENT ILLNESS: This lady is doing much better. During the night her pulse went up to around 150 and her blood pressure at times ran as low as 70. The A-team was called and she was stabilized and transferred to the unit. She is doing surprisingly well today, being completely awake and alert with no headache, shortness of breath, chest pain, nausea, abdominal pain, diarrhea, etc. PHYSICAL EXAMINATION: Vital signs are normal. Head, ears, eyes, nose, mouth and throat seem to be normal. The chest is clear with poor breath sounds. Cardiac exam has slowed significantly. It sounds like she is in sinus rhythm. The abdomen is protuberant. Extremities are normal. Neurologically she is intact. She is awake and alert and having no neurologic complaints. IMPRESSION: 1. Delirium, tachycardia and hypotension; etiology unknown. 2. Dehydration. 3. Morbid obesity. 4. Elevated D-dimer. 5. Congestive heart failure (elevated BNP). PLAN: 1. Slowly progress activity and diet. 2. Wait for further evaluation by Cardiology. MMODL / IJN: [id number] /
[2020-05-04 16:31] LABS: % Iron Saturation 1.95 (12.00-45.00)
--- NOTE | 2020-05-04 18:39 | EEG ---
ELECTROENCEPHALOGRAM REPORT DATE OF SERVICE: 05/04/2020 CLINICAL HISTORY: This is a 45-year-old female with a history of obstructive sleep apnea and not compliant using the machine, hypertension, who had an episode of urinary incontinence and some change in mentation. The EEG was obtained to evaluate for seizure and epileptiform activity. EEG TYPE: A routine 21-channel EEG was performed with video using the 10-20 electrode placement system. DESCRIPTION: Wakefulness was obtained only. During wakefulness, the background consisted of 6 to 7 Hz theta activity and at times it consisted of more moderate voltage 2 to 3 Hz delta activity. There is no stage II sleep seen during this study. There is occasional moderate to high voltage of generalized rhythmic delta activity with frontal predominance (GRDA). There was sharply contoured theta activity of 6 to 7 of moderate voltage over the bilateral central leads that looked suspicious, but there is no evolution and did not fit the criteria of seizure. Also they were polymorphic. No seizure or obvious interictals are seen. ACTIVATION PROCEDURES: Photic stimulation did not evoke a posterior driving response. Hyperventilation was not performed because of the patient's clinical history. EEG DIAGNOSIS: This is an abnormal routine EEG due to: 1. Generalized rhythmic delta activity with frontal predominance, occasional. 2. Background slowing consisting of theta and at times delta activity. CLINICAL INTERPRETATION: This is an abnormal study. The background slowing with generalized rhythmic delta activity with frontal predominance is suggestive of mild to moderate encephalopathy of unspecified etiology. There is no focal slowing, interictal or ictal activity seen. Clinical interpretation is recommended. RECOMMENDATION: If the patient continues to have altered mentation, I recommend considering getting an EEG, possibly follow up as an outpatient or, if patient's condition does not improve, can consider EEG. MMODL / IJN: [id number] /
[2020-05-04] MEDS: METOPROLOL TARTRATE 25 MG TAB PO SCH (23:35)
[2020-05-05] MEDS: NOREPINEPHRINE 4 MG in SODIUM CHLORIDE 0.9% 250 ML IV SCH ×3 (03:44→21:00)
[2020-05-05 06:11] LABS: Anisocytosis Moderate; HCT 34.9 % (34.0-46.0); HGB 8.6 gm/dL (11.4-16.0); Hypochromasia Marked; MCH 17.7 pg (25.0-35.0); MCHC 24.6 g/dL (31.0-37.0); MCV 71.9 fL (80.0-100.0); Mean Platelet Volume 7.7; Microcytosis Marked; Platelet Count 316 k/uL (150-450); RBC 4.86 m/uL (3.80-5.40); RDW 20.7 % (11.5-15.5); WBC 11.1 k/uL (3.8-10.6)
[2020-05-05] MEDS: PANTOPRAZOLE 40 MG TABLET PO SCH (06:13)
[2020-05-05] MEDS: SODIUM CHLORIDE 0.9% 1,000 ML IV SCH ×2 (06:13→17:01)
[2020-05-05 06:15] LABS: Calcium 9.1 mg/dL (8.4-10.2); Potassium 3.7 mmol/L (3.5-5.1)
[2020-05-05 06:39] LABS: Band Neutrophils % 1 %; Eosinophils # (M) 0.33 k/uL (0-0.7); Lymphocytes # (M) 2.33 k/uL (1.0-4.8); Monocytes # (M) 0.67 k/uL (0-1.0); Neutrophils % (M) 69 %; Nucleated Red Blood Cells 0 /100 WBC (0-0); Total Cells Counted 100
[2020-05-05 06:40] LABS: Anisocytosis (M) Present; Poikilocytosis (M) Present
[2020-05-05 06:41] LABS: Polychromasia Present
--- NOTE | 2020-05-05 07:05 | XR ---
EXAMINATION TYPE: XR chest 1V DATE OF EXAM: 05/05/2020 CLINICAL HISTORY: Difficulty breathing progress study. TECHNIQUE: Single AP portable upright view of the chest is obtained. COMPARISON: Chest x-ray from 2 days earlier and older studies. FINDINGS: Exam slightly suboptimal due to portable technique and patient's large body habitus. Persis tent cardiomegaly. Persistent suspected left greater than right bibasilar opacities. Upper lungs roseann in clear without pneumothorax. No new pleural effusion identified bilaterally. Osseous structures are intact. IMPRESSION: Left greater than right bibasilar acute infiltrate and/or atelectasis on background gross cardiomegaly. No significant change from most recent x-ray.
[2020-05-05] MEDS: SYMBICORT 160-4.5 MCG INHALER INHALATION SCH ×2 (07:18→19:35)
--- NOTE | 2020-05-05 07:40 | P.PN ---
Subjective Progress Note Date: 05/05/20 Principal diagnosis: Cardiac arrhythmia This is a very pleasant 45-year-old to the chemical female patient with a past medical history significant for hypertension as well as hypertensive heart disease as well as morbid obesity and obstructive sleep apnea was transferred to the intensive care unit because of change in mental status associated with bradycardia. The patient was admitted to the hospital back in 2018 with evidence of heart failure clinically and at that point she underwent an echocardiogram which revealed normal left ventricular systolic function with evidence of severe left ventricular hypertrophy and evidence of hypertensive heart disease as well as aortic stenosis. She is somewhat a poor historian. She stated that her brought her to the emergency department because she did have some change in mental status and overall she was not feeling well. She does not recall having any symptoms of chest pain or chest discomfort or increasing into shortness of breath. No dizziness or lightheadedness or syncope. Initially she was admitted to the hospital and subsequently she was transferred to the intensive care unit. Apparently she did have a change in mental status and the A team was called to her where she was found to be bradycardic with heart rate in the 30s. Please note that the patient does have obstructive sleep apnea and that episode was happened at 11:00 at night. The patient was seen today, 05/05/2020. Overall she stated that she is feeling slightly better. Overnight she dropped her pressure and currently she is on norepinephrine small dose. Beside that she is on metoprolol, clonidine, and hydralazine. Also she is on Lasix IV. The echo revealed hyperdynamic left ventricle with an ejection fraction of 70% and evidence of severe left ventricular hypertrophy. I am concerned about the LVOT obstruction related to h ypertensive heart disease, and that can cause hypotension which could be exacerbated by lowering the afterload and also by decreasing the volume. Having said that I am going to DC the clonidine and also DC the hydralazine and also DC the Lasix. I would control her heart rate which give her more filling time and hopefully improvement in the blood pressure and hopefully wean her from the norepinephrine. No significant arrhythmia noted overnight. Her resting heart rate this morning is about 100 beats per minutes. Beside that she underwent an EEG which showed mild to moderate encephalopathy. The TSH is unremarkable. Objective - Vital Signs Vital signs: Vital Signs Temp 98.7 F 05/05/20 04:00 Pulse 107 H 05/05/20 07:00 Resp 19 05/05/20 07:00 BP 107/69 05/05/20 07:00 Pulse Ox 96 05/05/20 07:00 Intake & Output 05/04/20 05/05/20 05/05/20 18:59 06:59 18:59 Intake Total 450 666.277 50 Output Total 490 370 50 Balance -40 296.277 0 Weight 152.9 kg Intake: IV 400 600 50 Sodium Chloride 0.9% 1, 400 600 50 000 ml @ 100 mls/hr IV . Q10H [facility] Rx#:[id number] Intake, IV Titration 66.277 Amount Norepinephrine 4 mg In 66.277 Sodium Chloride 0.9% 250 ml @ 0.05 MCG/KG/MIN 25. 923 mls/hr IV .Q9H48M [facility] Rx#:[id number] Oral 50 Output: Urine 490 370 50 Other: Voiding Method Indwelling Catheter Indwelling Catheter - Constitutional General appearance: Present: no acute distress - Cardiovascular Rhythm: regular Heart sounds: normal: S1, S2 Abnormal Heart Sounds: Present: systolic murmur - Labs CBC & Chem 7: 05/05/20 05:54 05/05/20 05:54 Labs: Abnormal Lab Results - Last 24 Hours (Table) 05/04/20 05/04/20 05/04/20 Range/Units 07:42 07:42 07:42 WBC (3.8-10.6) k/uL Hgb 8.5 L (11.4-16.0) gm/dL Hct 32.1 L (34.0-46.0) % MCV 69.3 L (80.0-100.0) fL MCH 18.5 L (25.0-35.0) pg MCHC 26.6 L (31.0-37.0) g/dL RDW 20.4 H (11.5-15.5) % APTT 21.4 L (22.0-30.0) sec Chloride (98-107) mmol/L Carbon Dioxide (22-30) mmol/L BUN (7-17) mg/dL Creatinine (0.52-1.04) mg/dL Glucose (74-99) mg/dL Iron (50-170) ug/dL % Saturation (12.00-45.00) CK-MB (CK-2) 2.8 H (0.0-2.4) ng/mL Troponin I 0.119 H* (0.000-0.034) ng/mL 05/04/20 05/04/20 05/04/20 Range/Units 07:42 07:42 14:28 WBC (3.8-10.6) k/uL Hgb (11.4-16.0) gm/dL Hct (34.0-46.0) % MCV (80.0-100.0) fL MCH (25.0-35.0) pg MCHC (31.0-37.0) g/dL RDW (11.5-15.5) % APTT (22.0-30.0) sec Chloride 115 H (98-107) mmol/L Carbon Dioxide 21 L (22-30) mmol/L BUN 23 H (7-17) mg/dL Creatinine 1.59 H (0.52-1.04) mg/dL Glucose (74-99) mg/dL Iron 7 L (50-170) ug/dL % Saturation 1.95 L (12.00-45.00) CK-MB (CK-2) (0.0-2.4) ng/mL Troponin I 0.090 H* (0.000-0.034) ng/mL 05/05/20 05/05/20 Range/Units 05:54 05:54 WBC 11.1 H (3.8-10.6) k/uL Hgb 8.6 L (11.4-16.0) gm/dL Hct (34.0-46.0) % MCV 71.9 L (80.0-100.0) fL MCH 17.7 L (25.0-35.0) pg MCHC 24.6 L (31.0-37.0) g/dL RDW 20.7 H (11.5-15.5) % APTT (22.0-30.0) sec Chloride 115 H (98-107) mmol/L Carbon Dioxide 20 L (22-30) mmol/L BUN 24 H (7-17) mg/dL Creatinine 1.63 H (0.52-1.04) mg/dL Glucose 109 H (74-99) mg/dL Iron (50-170) ug/dL % Saturation (12.00-45.00) CK-MB (CK-2) (0.0-2.4) ng/mL Troponin I (0.000-0.034) ng/mL Microbiology - Last 24 Hours (Table) 05/03/20 18:17 Blood Culture - Preliminary Blood No Growth after 24 hours 05/03/20 17:17 Urine Culture - Preliminary Urine,Voided Group D Enterococcus Gram Neg Bacilli Assessment and Plan Assessment: Assessment #1 bradycardia likely related to sleep apnea #2 morbid obesity #3 obstructive sleep apnea #4 heart failure with probably preserved LV function #5 chronic kidney disease Plan #1 hold the clonidine as well as hydralazine #2 hold the Lasix #3 continue metoprolol #4 right wean the patient from norepinephrine #5 follow-up with the patient
[2020-05-05] MEDS: METOPROLOL TARTRATE 25 MG TAB PO SCH ×2 (09:04→19:53)
[2020-05-05] MEDS: SODIUM BICARBONATE TAB 650 MG TAB PO SCH ×2 (09:04→19:53)
[2020-05-05] MEDS: SODIUM FERRIC GLUCONAT-SUCROSE 125 MG in SODIUM CHLORIDE 0.9% 100 ML IVPB SCH (09:04)
[2020-05-05] MEDS: ASPIRIN 81 MG PO SCH (09:04)
--- NOTE | 2020-05-05 11:51 | P.PN ---
Subjective Progress Note Date: 05/05/20 This is a morbidly obese 45-year-old -[place] female patient with long history of hypertension and hypertensive heart disease with severe concentric LVH and addition to history of obstructive sleep apnea secondary to morbid obesity and her NIR has been severe with an AHI of 45 and the patient has been titrated to CPAP pressure of 16 cm of water along with oxygen at 2 L per minute nasal cannula based on this he decided was done back in 2018. She claims that she has been compliant to CPAP therapy. The patient came into the hospital because of some altered mentation. She was also noted to have some cardiac rhythm problems were the patient was going tachycardic and bradycardic. Apparently, the patient was brought in to the hospital upon the request of her who brought her to the emergency department because she was having altered mentation and overall she was not feeling well. The patient does not recall having any of the symptoms. She denied having any chest pain or cough or sputum production. She denies having any motor weakness in upper or lower extremities. No seizure activity has been noted. She was initially admitted to the medical floor and subsequently she got transferred to the intensive care unit as the patient was found to be bradycardic and her heart rate was in the mid 30s. Cardiology consulted and the patient. EKG showed a sinus bradycardia. I'm not absolutely sure whether this bradycardia occurs once the patient was sleeping and the relationship between the bradycardia and sleep apnea needs to be established. For now, the patient is in the ICU. She is maintaining a heart rate of 100. Her chest x-ray showing cardiomegaly with some mild four-vessel congestion. ProBNP level is elevated at 5000. The first set of troponin is negative. She was started on IV Lasix 40 mg once every 24 hours. Echocardiogram showed a preserved LV function. The patient has iron deficiency anemia. Her hemoglobin at 8.5 with a MCV of 69. Her blood gases showed a pH of 7.45 with a pCO2 of 26 and pO2 of 104. She has chronic kidney disease related to hypertension with a creatinine of 1.5 for now. CAT scan of the brain was done and showed no acute cardio pulmonary process. The patient will be also seen by neurology. 05/05/2020, the patient is doing well. No specific complaints. She was unable to bring in the CPAP machine from home. She is still having issues with tachycardia. Overnight she became hypotensive. This was essentially drug-in duced and the appropriate drug medication changes were done by cardiology today. Note that echo cardiac rhythm showed significant hyperdynamic left ventricle with ejection fraction of 70% and the patient has evidence of severe LV hypertrophy. There was a concern that the patient is having an outflow obstruction causing hypotension. Note that overnight the patient briefly went on pressors because of the hypotension pH was given fluids. Currently she is off pressors. Furthermore, the clonidine and hydralazine and the Lasix was discontinued today by cardiology. TSH is unremarkable. She has no altered mentation. She is very much appropriate at this point in time. No chest pain. No cough sputum production chest that is so wheezing. There is a concern of an underlying urine checked infection as the patient grew a combination of enterococcus and gram-negative bacillus he had repeat cultures are being done as the patient's UA has been negative. Blood cultures negative. The patient was not given any antibiotics. Objective - Vital Signs Vital signs: Vital Signs Temp 98.7 F 05/05/20 04:00 Pulse 91 05/05/20 10:00 Resp 18 05/05/20 10:00 BP 93/51 05/05/20 10:00 Pulse Ox 98 05/05/20 10:00 Intake & Output 05/04/20 05/05/20 05/05/20 18:59 06:59 18:59 Intake Total 450 666.277 167.628 Output Total 490 370 130 Balance -40 296.277 37.628 Weight 152.9 kg Intake: IV 400 600 150 Sodium Chloride 0.9% 1, 400 600 150 000 ml @ 100 mls/hr IV . Q10H [facility] Rx#:[id number] Intake, IV Titration 66.277 17.628 Amount Norepinephrine 4 mg In 66.277 17.628 Sodium Chloride 0.9% 250 ml @ 0.05 MCG/KG/MIN 25. 923 mls/hr IV .Q9H48M [facility] Rx#:[id number] Oral 50 Output: Urine 490 370 130 Other: Voiding Method Indwelling Catheter Indwelling Catheter Indwelling Catheter - Exam Morbidly obese, comfortable likely distress BMI of 47 Head exam was generally normal. There was no scleral icterus or corneal arcus. Mucous membranes were moist. Neck was supple and without jugular venous distension, thyromegaly, or carotid bruits. Carotids were easily palpable bilaterally. There was no adenopathy. Mallampati class IV and the patient has no significant neck masses. There is significant crowding of the posterior oropharynx. Lungs sounds are diminished bilaterally with diminished breath on the lung bases. No wheezes or rhonchi. Cardiac exam revealed the PMI to be normally situated and sized. The rhythm was regular and no extrasystoles were noted during several minutes of auscultation. The first and second heart sounds were normal and physiologic splitting of the second heart sound was noted. There were no murmurs, rubs, clicks, or gallops. Abdomen is obese soft nontender. Organs cannot be accurately palpated. Examination of the extremities revealed easily palpable radial, femoral and pedal pulses. There was no cyanosis, clubbing or edema. Examination of the skin revealed no evidence of significant rashes, suspicious appearing nevi or other concerning lesions. Neurologically the patient is awake and alert and is no focal logical deficits. - Labs CBC & Chem 7: 05/05/20 05:54 05/05/20 05:54 Labs: Abnormal Lab Results - Last 24 Hours (Table) 05/04/20 05/04/20 05/05/20 Range/Units 07:42 14:28 05:54 WBC 11.1 H (3.8-10.6) k/uL Hgb 8.6 L (11.4-16.0) gm/dL MCV 71.9 L (80.0-100.0) fL MCH 17.7 L (25.0-35.0) pg MCHC 24.6 L (31.0-37.0) g/dL RDW 20.7 H (11.5-15.5) % Chloride (98-107) mmol/L Carbon Dioxide (22-30) mmol/L BUN (7-17) mg/dL Creatinine (0.52-1.04) mg/dL Glucose (74-99) mg/dL Iron 7 L (50-170) ug/dL % Saturation 1.95 L (12.00-45.00) Troponin I 0.090 H* (0.000-0.034) ng/mL 05/05/20 Range/Units 05:54 WBC (3.8-10.6) k/uL Hgb (11.4-16.0) gm/dL MCV (80.0-100.0) fL MCH (25.0-35.0) pg MCHC (31.0-37.0) g/dL RDW (11.5-15.5) % Chloride 115 H (98-107) mmol/L Carbon Dioxide 20 L (22-30) mmol/L BUN 24 H (7-17) mg/dL Creatinine 1.63 H (0.52-1.04) mg/dL Glucose 109 H (74-99) mg/dL Iron (50-170) ug/dL % Saturation (12.00-45.00) Troponin I (0.000-0.034) ng/mL Microbiology - Last 24 Hours (Table) 05/03/20 18:17 Blood Culture - Preliminary Blood No Growth after 24 hours 05/03/20 17:17 Urine Culture - Preliminary Urine,Voided Group D Enterococcus Gram Neg Bacilli Assessment and Plan Plan: 1 altered mentation, fully recovered and the patient has a normal CAT scan of the brain. No focal neurological deficits. Neuro exam is within normal limits and neurology's in consultation. Exact cause is not clear. Consider cardiac arrhythmias versus sleep apnea contributing to her altered mentation 2 severe obstructive sleep apnea with an AHI of 45 currently on CPAP at a pressure of 16 cm of water along with oxygen at 2 L. I do question her compliance data CPAP therapy and I need to check her CPAP machine and the compliance data to confirm that. 3 morbid obesity with a BMI of 47 4 hypertensive heart disease with concentric LVH, the patient and hyperdynamic LV with an ejection fraction of about 70% in addition to severe concentric left ventricular hypertrophy. 5 hypertension 6 chronic kidney disease probably related to hypertensive nephrosclerosis 7 bradycardia, sinus, could be related to sleep apnea. Cannot rule out underlying intrinsic cardiac arrhythmias 8 remote history of DVT 9 osteoarthritis 10 chronic iron deficiency anemia, currently receiving IV iron Plan We will ask the patient to bring in his CPAP unit for a compliance he check. His CPAP machine can be also used during her hospital stay. Check iron studies showed that the patient had low iron the patient is receiving IV iron replacement for now. She has had previous workup including EGD and colonoscopy both being negative regarding any major pathology contributing to iron deficiency anemia. Echocardiogram showed hyperdynamic LV with an ejection fraction about 70% and severe limits. Hypertrophy with concern of left ventricular outflow obstruction and based on that the appropriate medications adjustments was done with the patient was taken off the diuretics, off the clonidine and hydralazine. We'll monitor the blood pressure. Monitor renal function EEG is unremarkable. We'll continue to follow.
--- NOTE | 2020-05-05 13:40 | CDI ---
Documentation Clarification Form Date: 05/05/2020 01:27:14 PM From: Amy NuñezFarrBRONSON ledezma, CCDS Admit Date: 05/03/2020 04:17:00 PM Patient Name: Ankita Sorto Visit Number: [id number] Discharge Date: ATTENTION: The Clinical Documentation Specialists (CDI) and [facility] Coding Staff appreciate your assistance in clarifying documentation. Please respond to the clarification below the line at the bottom and electronically sign. The CDI & [facility] Coding staff will review the response and follow-up if needed. Please note: Queries are made part of the Legal Health Record. If you have any questions, please contact the author of this message via ITS. Dr. Kevin Stanford: Per the 05/04 Neurology Consult: "Transient episode of Encephalopathy likely from non-compliant with her CPAP machine. Unlikely seizure." Per the 05/05 Cardiology Progress Note: "Beside she underwent an EEG which showed mild to moderate encephalopathy." History/Risk Factors: Hypertensive Heart Disease with Heart Failure, CKD Stage 3, CAD, Pneumonia, Morbid Obesity with BMI 52.8, Obstruct Sleep Apnea: noncompliant with CPAP at home. Clinical Indicators: Presented to the ED via EMS after episodes of confusion & fall, lying on the ground approximately 12 hours. CO2 retention documented in ED note w/hyperventilation. Admitted for Pneumonia, Hyperkalemia, Dehydration, possible UTI & Acute Confusion. Heart Rate 05/03: P 100 - 107 - 125^ BP 05/03: 133/97 - 167/90 - 163/107 - 171/109 EKG 05/03: R 108 sinus tachycardia EEG 05/04 Abnormal, mild-moderate encephalopathy. CT/MRI Brain 05/03: negative Treatment: Admit to ICU, IV fluid 1,000 mls @ 100/hr, IV Azithromycin, IV Rocephin, IV Vasotec, INH Albuterol, INH Symbicort, CPAP, IV Ferric Na gluconate, IV Lasix, O2 2Lnc. In your professional opinion, can you please clarify the specific type of Encephalopathy, if known? Hypertensive Encephalopathy Metabolic Encephalopathy Toxic Encephalopathy Other, please specify Unable to determine (Last Revision: December 2017) MTDD
--- NOTE | 2020-05-05 13:53 | CDI ---
Documentation Clarification Form Date: 05/05/2020 01:42:47 PM From: Amy NuñezFarrBRONSON ledezma, CCDS Admit Date: 05/03/2020 04:17:00 PM Patient Name: Ankita Sorto Visit Number: [id number] Discharge Date: ATTENTION: The Clinical Documentation Specialists (CDI) and [facility] Coding Staff appreciate your assistance in clarifying documentation. Please respond to the clarification below the line at the bottom and electronically sign. The CDI & [facility] Coding staff will review the response and follow-up if needed. Please note: Queries are made part of the Legal Health Record. If you have any questions, please contact the author of this message via ITS. Dr. Kevin Stanford: Pneumonia is documented in the 05/03 ED note: "Head CT negative for intracranial hemorrhage, chest x-ray does question addendum pneumonia, infiltrate. She will be admitted for treatment of pneumonia, hyperkalemia and dehydration as well as acute confusion. Clinical Impression: Delirium due to general medical condition, Dehydration, Pneumonia, AMS (altered mental status)." History/Risk Factors: CAD, CHF, Pneumonia, CKD, OA, NIR requiring CPAP (noncompliant), Morbid Obesity w/BMI >50. Clinical Indicators: Presented to the ED on 05/03 via EMS after a fall & episodes of confusion, lied on the ground for approximately 12 hours. Admit per the ED note above. Vital signs 05/03: T 98.6, P 100 - 125^, R 18, BP 133/97, PO 94 2Lnc LAB 05/03: WBC (10.2), Hgb 9.1*, Neut 7.9^, D Dimer 1.36^, K 5.6^, Cl 114^, CO2 19*, BUN 22^, Cr 1.44^. ABG 05/03: pCO2 26*, HCO3 18*, O2 Sat 98.1^. 05/03 Blood cx: neg pending final. RAD: 05/03 CXR: Right infrahilar patchy density noted may reflect developing infiltrate. Treatment: IV fluid 1,000 mls @ 100/hr, IV Azithromycin, IV Rocephin, IV Vasotec, INH Albuterol, IV Symbicort, O2 4Lnc. In order to capture the severity of condition, please clarify if the condition signifies and you are treating for: Pneumonia ruled out Pneumonia, please specify type: o Bacterial Pneumonia, specify causal organism (if known) o Viral Pneumonia, specify casual organism (if known) o Other, please specify Unable to determine (Last Revision: December 2017) MTDD
--- NOTE | 2020-05-05 16:44 | P.PN ---
Subjective Progress Note Date: 05/05/20 Principal diagnosis: Encepahlopathy that is resolved Obstructive sleep apnea and patient non-compliant with using machine Patient was seen at bedside and the she states that she's doing well. She was on the phoneand to her mother. She denies of any weakness any numbness any vision change. Per ICU team she's doing much better compared to yesterday. Objective - Vital Signs Vital signs: Vital Signs Temp 98.7 F 05/05/20 04:00 Pulse 98 05/05/20 16:00 Resp 31 H 05/05/20 16:00 BP 110/75 05/05/20 16:00 Pulse Ox 100 05/05/20 16:00 Intake & Output 05/04/20 05/05/20 05/05/20 18:59 06:59 18:59 Intake Total 450 666.277 167.628 Output Total 490 370 130 Balance -40 296.277 37.628 Weight 152.9 kg Intake: IV 400 600 150 Sodium Chloride 0.9% 1, 400 600 150 000 ml @ 100 mls/hr IV . Q10H [facility] Rx#:[id number] Intake, IV Titration 66.277 17.628 Amount Norepinephrine 4 mg In 66.277 17.628 Sodium Chloride 0.9% 250 ml @ 0.05 MCG/KG/MIN 25. 923 mls/hr IV .Q9H48M [facility] Rx#:[id number] Oral 50 Output: Urine 490 370 130 Other: Voiding Method Indwelling Catheter Indwelling Catheter Indwelling Catheter - Exam GENERAL: The patient is lying in bed and is not in acute distress. CHEST: The heart rate is regular rate rhythm. No murmurs to auscultation. LUNG: Clear to auscultation bilaterally no wheezing noted throughout. Not labored breathing. ABDOMEN/GI: Bowel sounds present in all 4 quadrants. No tenderness to palpation throughout. NEUROLOGICAL: Higher mental function: The patient is awake, alert, oriented to self, place and time. She is following simple and complex commands. No aphasia and no neglect. Cranial nerves: The pupils are round, equal and reactive to light and accommodation. Visual [place] are full to confrontation throughout. Extraocular movement is intact no nystagmus is noted. Facial sensation is normal to touch throughout. The facial strength is normal throughout. Hearing is normal bilaterally to hand rub. Tongue is midline and moved [id number] without any difficulty. No dysarthria is noted. Shoulder shrug is normal bilaterally. Motor: The strength is 5 over 5 throughout. Normal tone and bulk. Cerebellum: Normal finger bilaterally. Sensation: Sensation is normal to touch throughout. Reflexes (right/left):2+ Plantars are downgoing bilaterally. - Labs CBC & Chem 7: 05/05/20 05:54 05/05/20 05:54 Labs: Abnormal Lab Results - Last 24 Hours (Table) 05/05/20 05/05/20 Range/Units 05:54 05:54 WBC 11.1 H (3.8-10.6) k/uL Hgb 8.6 L (11.4-16.0) gm/dL MCV 71.9 L (80.0-100.0) fL MCH 17.7 L (25.0-35.0) pg MCHC 24.6 L (31.0-37.0) g/dL RDW 20.7 H (11.5-15.5) % Chloride 115 H (98-107) mmol/L Carbon Dioxide 20 L (22-30) mmol/L BUN 24 H (7-17) mg/dL Creatinine 1.63 H (0.52-1.04) mg/dL Glucose 109 H (74-99) mg/dL Microbiology - Last 24 Hours (Table) 05/03/20 18:17 Blood Culture - Preliminary Blood No Growth after 24 hours 05/03/20 17:17 Urine Culture - Preliminary Urine,Voided Group D Enterococcus Gram Neg Bacilli Assessment and Plan Assessment: Mrs. Sorto is a 45-year-old right-handed female with medical history of hypertension, obstructive sleep apnea that is not using her CPAP machine, heart failure, CKD as well as morbid obesity that presented to the emergency department on 05/03/2024 episode of confusion and sleepiness. She said she had an episode of urinary incontinence which she does not know how it happened but denies any jerking, foaming around the mouth, tongue bite. She is not compliant with CPAP machine. Transient episode of Encephalopathy is possibly cardiac arrhythmia vs sleep apnea and not compliant with CPAP Unlikely seizure. Urinalysis was suspicious of your tract infection Obstructive sleep apnea Episode of bradycardia Chronic kidney disease Plan: Routine EEG (05/05/2020): Mild to moderate encephalopathy. This was not a seizure episdoe and likely related to obstructive sleep apnea vs cardiac arrhythmia. Will not start on anti-epileptic medication. For the bradycardia cardiology is on board and plan is to get a repeat echocardiogram. Running the possible suspicion of urinary tract infection we'll defer the management to the primary team and ICU team. Regarding her management of her NIR we will defer to pulmonary team. No further neurology work-up. We will sign off Joselito Jorgensen MD Neuro-hospitalist Time with Patient: Less than 30
--- NOTE | 2020-05-05 18:29 | PN ---
PROGRESS NOTE CHIEF COMPLAINT: Syncopal episode, mental status changes, and shortness of breath. HISTORY OF PRESENT ILLNESS: This lady is feeling better. She has had no significant chest pain, palpitations, etc. In reviewing her record, however, the patient has had 3 elevated troponins. CK-MB values were also elevated. She is also anemic. PHYSICAL EXAMINATION: Her chest is clear. Cardiac exam is normal. The abdomen is massively protuberant. Extremities are normal. IMPRESSION: 1. Altered mental status with syncope. 2. Hypotension. 3. History of malignant hypertension. 4. Anemia. 5. Elevated troponin. 6. Renal failure. 7. Anemia. PLAN: 1. Anemia workup. 2. Fecal occult blood. 3. Discontinue Colon catheter. 4. Increase activity. MMODL / IJN: [id number] /
[2020-05-06] MEDS: SODIUM CHLORIDE 0.9% 1,000 ML IV SCH ×2 (04:44→23:17)
[2020-05-06 05:30] LABS: Anisocytosis Moderate; Basophils # (A) 0.1 k/uL (0-0.2); Basophils % (A) 1 %; Eosinophils # (A) 0.2 k/uL (0-0.7); Eosinophils % (A) 2 %; HCT 30.2 % (34.0-46.0); HGB 7.8 gm/dL (11.4-16.0); Hypochromasia Marked; Lymphocytes # (A) 1.5 k/uL (1.0-4.8); Lymphocytes % (A) 14 %; MCH 18.2 pg (25.0-35.0); MCHC 25.9 g/dL (31.0-37.0); MCV 70.2 fL (80.0-100.0); Microcytosis Marked; Monocytes # (A) 0.4 k/uL (0-1.0); Monocytes % (A) 4 %; Neutrophils # (A) 8.3 k/uL (1.3-7.7); Neutrophils % (A) 77 %; Platelet Count 307 k/uL (150-450); Poikilocytosis Slight; RBC 4.31 m/uL (3.80-5.40); RDW 20.9 % (11.5-15.5); WBC 10.7 k/uL (3.8-10.6)
[2020-05-06 05:50] LABS: Calcium 8.8 mg/dL (8.4-10.2); Potassium 3.7 mmol/L (3.5-5.1)
[2020-05-06] MEDS ORDERED: Potassium Replacement Protocol 1 EACH MISC MISCELLANE PRN (06:12)
[2020-05-06] MEDS: PANTOPRAZOLE 40 MG TABLET PO SCH (06:56)
[2020-05-06] MEDS ORDERED: POTASSIUM CHLORIDE ER 20 MEQ TAB.ER PO SCH (07:00)
[2020-05-06] MEDS: ACETAMINOPHEN TAB 325 MG TAB PO PRN ×2 (07:08→19:41)
--- NOTE | 2020-05-06 07:36 | P.PN ---
Subjective Progress Note Date: 05/06/20 Principal diagnosis: Cardiac arrhythmia This is a very pleasant 45-year-old to the chemical female patient with a past medical history significant for hypertension as well as hypertensive heart disease as well as morbid obesity and obstructive sleep apnea was transferred to the intensive care unit because of change in mental status associated with bradycardia. The patient was admitted to the hospital back in 2018 with evidence of heart failure clinically and at that point she underwent an echocardiogram which revealed normal left ventricular systolic function with evidence of severe left ventricular hypertrophy and evidence of hypertensive heart disease as well as aortic stenosis. She is somewhat a poor historian. She stated that her brought her to the emergency department because she did have some change in mental status and overall she was not feeling well. She does not recall having any symptoms of chest pain or chest discomfort or increasing into shortness of breath. No dizziness or lightheadedness or syncope. Initially she was admitted to the hospital and subsequently she was transferred to the intensive care unit. Apparently she did have a change in mental status and the A team was called to her where she was found to be bradycardic with heart rate in the 30s. Please note that the patient does have obstructive sleep apnea and that episode was happened at 11:00 at night. The patient was seen today, 05/06/2020. She is doing clinically better. She is off vasopressors. The pressure has improved after we stopped yesterday the hydr alazine and clonidine. The heart rate has been in the 100. From the cardiac vascular standpoint of view, the patient can be transferred out of the ICU. I would avoid any diuretics at this point. Objective - Vital Signs Vital signs: Vital Signs Temp 98.5 F 05/06/20 04:00 Pulse 113 H 05/06/20 07:00 Resp 15 05/06/20 07:00 BP 109/69 05/06/20 07:00 Pulse Ox 98 05/06/20 07:00 Intake & Output 05/05/20 05/06/20 05/06/20 18:59 06:59 18:59 Intake Total 567.628 600 Output Total 555 480 Balance 12628 120 Weight 154.1 kg Intake: IV 550 600 Sodium Chloride 0.9% 1, 550 600 000 ml @ 50 mls/hr IV . Q20H [facility] Rx#:[id number] Intake, IV Titration 17.628 Amount Norepinephrine 4 mg In 17.628 Sodium Chloride 0.9% 250 ml @ 0.05 MCG/KG/MIN 25. 923 mls/hr IV .Q9H48M [facility] Rx#:[id number] Output: Urine 555 480 Other: Voiding Method Indwelling Catheter Indwelling Catheter - Constitutional General appearance: Present: no acute distress - Respiratory Respiratory: bilateral: CTA - Cardiovascular Rhythm: regular Heart sounds: normal: S1, S2 - Labs CBC & Chem 7: 05/06/20 05:19 05/06/20 05:19 Labs: Abnormal Lab Results - Last 24 Hours (Table) 05/06/20 05/06/20 Range/Units 05:19 05:19 WBC 10.7 H (3.8-10.6) k/uL Hgb 7.8 L (11.4-16.0) gm/dL Hct 30.2 L (34.0-46.0) % MCV 70.2 L (80.0-100.0) fL MCH 18.2 L (25.0-35.0) pg MCHC 25.9 L (31.0-37.0) g/dL RDW 20.9 H (11.5-15.5) % Neutrophils # 8.3 H (1.3-7.7) k/uL Chloride 114 H (98-107) mmol/L Carbon Dioxide 19 L (22-30) mmol/L BUN 21 H (7-17) mg/dL Creatinine 1.55 H (0.52-1.04) mg/dL Microbiology - Last 24 Hours (Table) 05/05/20 20:00 Urine Culture - Preliminary Urine,Catheterized 05/03/20 17:17 Urine Culture - Final Urine,Voided Enterococcus faecium VRE Pseudomonas aeruginosa 05/03/20 18:17 Blood Culture - Preliminary Blood No Growth after 48 hours Assessment and Plan Assessment: Assessment #1 bradycardia likely related to sleep apnea #2 morbid obesity #3 obstructive sleep apnea #4 heart failure with probably preserved LV function #5 chronic kidney disease Plan #1 continue the current medical regimen including the current dose of metoprolol #2 avoid any diuretics #3 avoid any volume depletion #4 follow-up with the patient
[2020-05-06] MEDS: SODIUM BICARBONATE TAB 650 MG TAB PO SCH ×2 (08:30→19:41)
[2020-05-06] MEDS: ASPIRIN 81 MG PO SCH (08:31)
[2020-05-06] MEDS: METOPROLOL TARTRATE 25 MG TAB PO SCH ×2 (08:31→19:41)
[2020-05-06] MEDS: SODIUM FERRIC GLUCONAT-SUCROSE 125 MG in SODIUM CHLORIDE 0.9% 100 ML IVPB SCH (08:31)
[2020-05-06] MEDS: SYMBICORT 160-4.5 MCG INHALER INHALATION SCH ×2 (08:37→19:51)
[2020-05-06] MEDS: LEVOFLOXACIN 500 MG TAB PO SCH (11:13)
--- NOTE | 2020-05-06 12:24 | P.PN ---
Subjective Progress Note Date: 05/06/20 This is a morbidly obese 45-year-old -[place] female patient with long history of hypertension and hypertensive heart disease with severe concentric LVH and addition to history of obstructive sleep apnea secondary to morbid obesity and her NIR has been severe with an AHI of 45 and the patient has been titrated to CPAP pressure of 16 cm of water along with oxygen at 2 L per minute nasal cannula based on this he decided was done back in 2018. She claims that she has been compliant to CPAP therapy. The patient came into the hospital because of some altered mentation. She was also noted to have some cardiac rhythm problems were the patient was going tachycardic and bradycardic. Apparently, the patient was brought in to the hospital upon the request of her who brought her to the emergency department because she was having altered mentation and overall she was not feeling well. The patient does not recall having any of the symptoms. She denied having any chest pain or cough or sputum production. She denies having any motor weakness in upper or lower extremities. No seizure activity has been noted. She was initially admitted to the medical floor and subsequently she got transferred to the intensive care unit as the patient was found to be bradycardic and her heart rate was in the mid 30s. Cardiology consulted and the patient. EKG showed a sinus bradycardia. I'm not absolutely sure whether this bradycardia occurs once the patient was sleeping and the relationship between the bradycardia and sleep apnea needs to be established. For now, the patient is in the ICU. She is maintaining a heart rate of 100. Her chest x-ray showing cardiomegaly with some mild four-vessel congestion. ProBNP level is elevated at 5000. The first set of troponin is negative. She was started on IV Lasix 40 mg once every 24 hours. Echocardiogram showed a preserved LV function. The patient has iron deficiency anemia. Her hemoglobin at 8.5 with a MCV of 69. Her blood gases showed a pH of 7.45 with a pCO2 of 26 and pO2 of 104. She has chronic kidney disease related to hypertension with a creatinine of 1.5 for now. CAT scan of the brain was done and showed no acute cardio pulmonary process. The patient will be also seen by neurology. 05/05/2020, the patient is doing well. No specific complaints. She was unable to bring in the CPAP machine from home. She is still having issues with tachycardia. Overnight she became hypotensive. This was essentially drug-in duced and the appropriate drug medication changes were done by cardiology today. Note that echo cardiac rhythm showed significant hyperdynamic left ventricle with ejection fraction of 70% and the patient has evidence of severe LV hypertrophy. There was a concern that the patient is having an outflow obstruction causing hypotension. Note that overnight the patient briefly went on pressors because of the hypotension pH was given fluids. Currently she is off pressors. Furthermore, the clonidine and hydralazine and the Lasix was discontinued today by cardiology. TSH is unremarkable. She has no altered mentation. She is very much appropriate at this point in time. No chest pain. No cough sputum production chest that is so wheezing. There is a concern of an underlying urine checked infection as the patient grew a combination of enterococcus and gram-negative bacillus he had repeat cultures are being done as the patient's UA has been negative. Blood cultures negative. The patient was not given any antibiotics. 05/06/2020, the patient is feeling well. No altered mentation. No respiratory difficulties. Blood pressure is stable. No cardiac arrhythmias have been noted. The patient is feeling well without any specific complaints. White cell count is at 10.7. Hemoglobin is at 7.8 and the patient is completing IV iron treatment. The hemoglobin is stable. Urine cultures showing Pseudomonas and VRE and this is a cultures was obtained on 05/03/2020. A repeat culture was obtained on 05/05/2020 as I'm not sure this is a 2 infection as the patient's UA was essentially negative. Furthermore, she was not quite symptomatic and should not have any symptoms to suggest an underlying UTI. The Colon catheter has been removed. Objective - Vital Signs Vital signs: Vital Signs Temp 98.0 F 05/06/20 08:00 Pulse 99 05/06/20 12:00 Resp 6 L 05/06/20 12:00 BP 128/85 05/06/20 12:00 Pulse Ox 100 05/06/20 10:00 Intake & Output 05/05/20 05/06/20 05/06/20 18:59 06:59 18:59 Intake Total 567.628 600 400 Output Total 555 480 150 Balance 12.628 120 250 Weight 154.1 kg Intake: IV 550 600 100 Sodium Chloride 0.9% 1, 550 600 100 000 ml @ 5 mls/hr IV . Q24H [facility] Rx#:[id number] Intake, IV Titration 17.628 Amount Norepinephrine 4 mg In 17.628 Sodium Chloride 0.9% 250 ml @ 0.05 MCG/KG/MIN 25. 923 mls/hr IV .Q9H48M [facility] Rx#:[id number] Oral 300 Output: Urine 555 480 150 Other: Voiding Method Indwelling Catheter Indwelling Catheter Indwelling Catheter - Exam Morbidly obese, comfortable likely distress BMI of 47 Head exam was generally normal. There was no scleral icterus or corneal arcus. Mucous membranes were moist. Neck was supple and without jugular venous distension, thyromegaly, or carotid bruits. Carotids were easily palpable bilaterally. There was no adenopathy. Mallampati class IV and the patient has no significant neck masses. There is significant crowding of the posterior oropharynx. Lungs sounds are diminished bilaterally with diminished breath on the lung bases. No wheezes or rhonchi. Cardiac exam revealed the PMI to be normally situated and sized. The rhythm was regular and no extrasystoles were noted during several minutes of auscultation. The first and second heart sounds were normal and physiologic splitting of the second heart sound was noted. There were no murmurs, rubs, clicks, or gallops. Abdomen is obese soft nontender. Organs cannot be accurately palpated. Examination of the extremities revealed easily palpable radial, femoral and pedal pulses. There was no cyanosis, clubbing or edema. Examination of the skin revealed no evidence of significant rashes, suspicious appearing nevi or other concerning lesions. Neurologically the patient is awake and alert and is no focal logical deficits. - Labs CBC & Chem 7: 05/06/20 05:19 05/06/20 11:43 Labs: Abnormal Lab Results - Last 24 Hours (Table) 05/06/20 05/06/20 Range/Units 05:19 05:19 WBC 10.7 H (3.8-10.6) k/uL Hgb 7.8 L (11.4-16.0) gm/dL Hct 30.2 L (34.0-46.0) % MCV 70.2 L (80.0-100.0) fL MCH 18.2 L (25.0-35.0) pg MCHC 25.9 L (31.0-37.0) g/dL RDW 20.9 H (11.5-15.5) % Neutrophils # 8.3 H (1.3-7.7) k/uL Chloride 114 H (98-107) mmol/L Carbon Dioxide 19 L (22-30) mmol/L BUN 21 H (7-17) mg/dL Creatinine 1.55 H (0.52-1.04) mg/dL Microbiology - Last 24 Hours (Table) 05/03/20 17:17 Urine Culture - Final Urine,Voided Enterococcus faecium VRE Pseudomonas aeruginosa 05/05/20 20:00 Urine Culture - Preliminary Urine,Catheterized 05/03/20 18:17 Blood Culture - Preliminary Blood No Growth after 48 hours Assessment and Plan Plan: 1 altered mentation, fully recovered and the patient has a normal CAT scan of the brain. No focal neurological deficits. Neuro exam is within normal limits and neurology's in consultation. Exact cause is not clear. Consider cardiac arrhythmias versus sleep apnea contributing to her altered mentation 2 severe obstructive sleep apnea with an AHI of 45 currently on CPAP at a pressure of 16 cm of water along with oxygen at 2 L. I do question her compliance data CPAP therapy and I need to check her CPAP machine and the compliance data to confirm that. 3 morbid obesity with a BMI of 47 4 hypertensive heart disease with concentric LVH, the patient and hyperdynamic LV with an ejection fraction of about 70% in addition to severe concentric left ventricular hypertrophy. 5 hypertension 6 chronic kidney disease probably related to hypertensive nephrosclerosis, and creatinine remains stable for now. 7 bradycardia, sinus, could be related to sleep apnea. Cannot rule out underlying intrinsic cardiac arrhythmias 8 remote history of DVT 9 osteoarthritis 10 chronic iron deficiency anemia, currently receiving IV iron Plan We will ask the patient to bring in his CPAP unit for a compliance he check. His CPAP machine can be also used during her hospital stay. Complete the course of IV iron She has had previous workup including EGD and colonoscopy both being negative regarding any major pathology contributing to iron deficiency anemia. Echocardiogram showed hyperdynamic LV with an ejection fraction about 70% and severe limits. Hypertrophy with concern of left ventricular outflow obstruction and based on that the appropriate medications adjustments was done with the patient was taken off the diuretics, off the clonidine and hydralazine. We'll monitor the blood pressure. Monitor renal function and a creatinine remains stable at 1.55. EEG is unremarkable. UTI is doubtful despite the positive cultures and a Colon catheter has been diana meg We'll continue to follow. The patient came in [facility] to medical floor.
--- NOTE | 2020-05-06 17:30 | PN ---
PROGRESS NOTE DATE OF SERVICE: 05/06/2020 CHIEF COMPLAINT: Mental status changes, near syncope with hyperkalemia and elevated troponin. HISTORY OF PRESENT ILLNESS: This lady is doing well and she has had no chest pain or shortness of breath. Studies indicated that she does have diastolic congestive heart failure. She also is anemic and this is being investigated. FOB has been ordered. Urinary tract infection is sensitive to Levaquin and this will be started. Colon is coming out. PHYSICAL EXAMINATION: Chest is clear. Cardiac exam is normal. Abdomen is protuberant. Extremities are normal. Neurologically, she is awake and alert. IMPRESSION: 1. Mental status changes. 2. Delirium. 3. Dehydration. 4. Hyperkalemia. 5. UTI. 6. Anemia. 7. Diastolic CHF. PLAN: Increase activity and she will be moved to [facility]. She could go home anytime. MMDAMIEN / CEZARN: [id number] /
[2020-05-06] MEDS: FERROUS SULFATE 325 MG TAB PO SCH (19:41)
[2020-05-06 21:23] VITALS: RESP 18
--- NOTE | 2020-05-06 21:54 | MISC ---
MISCELLANOUS REPORT QUERY: Unable to determine. MMODL / IJN: [id number] /
--- NOTE | 2020-05-06 21:56 | MISC ---
MISCELLANOUS REPORT QUERY: Stage 3 CKD. MMODL / IJN: [id number] /
--- NOTE | 2020-05-06 21:56 | MISC ---
MISCELLANOUS REPORT QUERY: Pneumonia ruled out. MMODL / IJN: [id number] /
[2020-05-07] MEDS: FERROUS SULFATE 325 MG TAB PO SCH ×2 (06:21→11:16)
[2020-05-07] MEDS: PANTOPRAZOLE 40 MG TABLET PO SCH (06:21)
[2020-05-07] MEDS: SYMBICORT 160-4.5 MCG INHALER INHALATION SCH (08:17)
[2020-05-07 08:21] VITALS: BP 153/89; PULSE 120; TEMP 98.5
[2020-05-07] MEDS: SODIUM BICARBONATE TAB 650 MG TAB PO SCH (08:21)
[2020-05-07] MEDS: ASPIRIN 81 MG PO SCH (08:21)
--- NOTE | 2020-05-07 08:47 | P.PN ---
Subjective Progress Note Date: 05/07/20 Principal diagnosis: Cardiac arrhythmia This is a very pleasant 45-year-old to the chemical female patient with a past medical history significant for hypertension as well as hypertensive heart disease as well as morbid obesity and obstructive sleep apnea was transferred to the intensive care unit because of change in mental status associated with bradycardia. The patient was admitted to the hospital back in 2018 with evidence of heart failure clinically and at that point she underwent an echocardiogram which revealed normal left ventricular systolic function with evidence of severe left ventricular hypertrophy and evidence of hypertensive heart disease as well as aortic stenosis. She is somewhat a poor historian. She stated that her brought her to the emergency department because she did have some change in mental status and overall she was not feeling well. She does not recall having any symptoms of chest pain or chest discomfort or increasing into shortness of breath. No dizziness or lightheadedness or syncope. Initially she was admitted to the hospital and subsequently she was transferred to the intensive care unit. Apparently she did have a change in mental status and the A team was called to her where she was found to be bradycardic with heart rate in the 30s. Please note that the patient does have obstructive sleep apnea and that episode was happened at 11:00 at night. The patient was seen today, May 072019. She is feeling better. She denies any chest pain or chest discomfort or shortness of breath. She still slightly tachycardic and the pressure is good and I am going to increase the dose of metoprolol to 25 mg by mouth 3 times a day. Otherwise the patient can be discharged home. Objective - Vital Signs Vital signs: Vital Signs Temp 98.5 F 05/07/20 08:00 Pulse 120 H 05/07/20 08:00 Resp 18 05/07/20 08:00 BP 153/89 05/07/20 08:00 Pulse Ox 97 05/07/20 08:00 Intake & Output 05/06/20 05/07/20 05/07/20 18:59 06:59 18:59 Intake Total 1300 Output Total 250 Balance 1050 Weight 155.2 kg Intake: IV 100 Sodium Chloride 0.9% 1, 100 000 ml @ 5 mls/hr IV . Q24H [facility] Rx#:[id number] Oral 1200 Output: Urine 250 Other: Voiding Method Indwelling Catheter Toilet # Voids 0 1 # Bowel Movements 1 - Constitutional General appearance: Present: no acute distress - Respiratory Respiratory: bilateral: CTA - Cardiovascular Rhythm: regular Heart sounds: normal: S1, S2 - Labs CBC & Chem 7: 05/06/20 05:19 05/06/20 11:43 Labs: Microbiology - Last 24 Hours (Table) 05/05/20 20:00 Urine Culture - Final Urine,Catheterized 05/03/20 18:17 Blood Culture - Preliminary Blood No Growth after 72 hours 05/03/20 17:17 Urine Culture - Final Urine,Voided Enterococcus faecium VRE Pseudomonas aeruginosa Assessment and Plan Assessment: Assessment #1 bradycardia likely related to sleep apnea #2 morbid obesity #3 obstructive sleep apnea #4 heart failure with probably preserved LV function #5 chronic kidney disease Plan #1 continue the current medical regimen #2 increase the dose of metoprolol #3 follow-up with the patient
[2020-05-07] MEDS ORDERED: METOPROLOL TARTRATE 25 MG TAB PO SCH (09:00)
[2020-05-07 10:17] LABS: Calcium 9.4 mg/dL (8.4-10.2); Potassium 3.8 mmol/L (3.5-5.1)
[2020-05-07] MEDS: LEVOFLOXACIN 500 MG TAB PO SCH (11:16)
--- NOTE | 2020-05-07 12:42 | P.PN ---
Subjective Progress Note Date: 05/07/20 Principal diagnosis: Altered mentation of unclear etiology This is a morbidly obese 45-year-old -[place] female patient with long history of hypertension and hypertensive heart disease with severe concentric LVH and addition to history of obstructive sleep apnea secondary to morbid obesity and her NIR has been severe with an AHI of 45 and the patient has been titrated to CPAP pressure of 16 cm of water along with oxygen at 2 L per minute nasal cannula based on this he decided was done back in 2018. She claims that she has been compliant to CPAP therapy. The patient came into the hospital because of some altered mentation. She was also noted to have some cardiac rhythm problems were the patient was going tachycardic and bradycardic. Apparently, the patient was brought in to the hospital upon the request of her who brought her to the emergency department because she was having altered mentation and overall she was not feeling well. The patient does not recall having any of the symptoms. She denied having any chest pain or cough or sputum production. She denies having any motor weakness in upper or lower extremities. No seizure activity has been noted. She was initially admitted to the medical floor and subsequently she got transferred to the intensive care unit as the patient was found to be bradycardic and her heart rate was in the m id 30s. Cardiology consulted and the patient. EKG showed a sinus bradycardia. I'm not absolutely sure whether this bradycardia occurs once the patient was sleeping and the relationship between the bradycardia and sleep apnea needs to be established. For now, the patient is in the ICU. She is maintaining a heart rate of 100. Her chest x-ray showing cardiomegaly with some mild four-vessel congestion. ProBNP level is elevated at 5000. The first set of troponin is negative. She was started on IV Lasix 40 mg once every 24 hours. Echocardiogram showed a preserved LV function. The patient has iron deficiency anemia. Her hemoglobin at 8.5 with a MCV of 69. Her blood gases showed a pH of 7.45 with a pCO2 of 26 and pO2 of 104. She has chronic kidney disease related to hypertension with a creatinine of 1.5 for now. CAT scan of the brain was done and showed no acute cardio pulmonary process. The patient will be also seen by neurology. 05/05/2020, the patient is doing well. No specific complaints. She was unable to bring in the CPAP machine from home. She is still having issues with tachycardia. Overnight she became hypotensive. This was essentially drug- induced and the appropriate drug medication changes were done by cardiology today. Note that echo cardiac rhythm showed significant hyperdynamic left ventricle with ejection fraction of 70% and the patient has evidence of severe LV hypertrophy. There was a concern that the patient is having an outflow obstruction causing hypotension. Note that overnight the patient briefly went on pressors because of the hypotension pH was given fluids. Currently she is off pressors. Furthermore, the clonidine and hydralazine and the Lasix was discontinued today by cardiology. TSH is unremarkable. She has no altered ment ation. She is very much appropriate at this point in time. No chest pain. No cough sputum production chest that is so wheezing. There is a concern of an underlying urine checked infection as the patient grew a combination of enterococcus and gram-negative bacillus he had repeat cultures are being done as the patient's UA has been negative. Blood cultures negative. The patient was not given any antibiotics. 05/06/2020, the patient is feeling well. No altered mentation. No respiratory difficulties. Blood pressure is stable. No cardiac arrhythmias have been noted. The patient is feeling well without any specific complaints. White cell count is at 10.7. Hemoglobin is at 7.8 and the patient is completing IV iron treatment. The hemoglobin is stable. Urine cultures showing Pseudomonas and VRE and this is a cultures was obtained on 05/03/2020. A repeat culture was obtained on 05/05/2020 as I'm not sure this is a 2 infection as the patient's UA was essentially negative. Furthermore, she was not quite symptomatic and should not have any symptoms to suggest an underlying UTI. The Colon catheter has been removed. The patient is seen today 05/07/2020 in follow-up on the selective care unit. She is currently awake and alert in no acute distress. Oriented 3. No worsening shortness of breath, cough or congestion. She is maintaining good O2 saturation in the 90s on room air. She's afebrile. Urine culture positive for enterococcus fascia and VRE and pseudomonas but second urine culture reveals no growth. Sodium 141. Potassium 3.8. Creatinine 1.44. ProBNP 2740. He is continued on Symbicort, albuterol, Levaquin. Objective - Vital Signs Vital signs: Vital Signs Temp 98.5 F 08/08/20 08:00 Pulse 120 H 05/07/20 08:00 Resp 18 05/07/20 08:00 BP 153/89 05/07/20 08:00 Pulse Ox 97 05/07/20 08:00 Intake & Output 05/06/20 05/07/20 05/07/20 18:59 06:59 18:59 Intake Total 1300 Output Total 250 Balance 1050 Weight 155.2 kg Intake: IV 100 Sodium Chloride 0.9% 1, 100 000 ml @ 5 mls/hr IV . Q24H [facility] Rx#:[id number] Oral 1200 Output: Urine 250 Other: Voiding Method Indwelling Catheter Toilet # Voids 0 1 # Bowel Movements 1 - Exam Morbidly obese, comfortable likely distress BMI of 47 Head exam was generally normal. There was no scleral icterus or corneal arcus. Mucous membranes were moist. Neck was supple and without jugular venous distension, thyromegaly, or carotid bruits. Carotids were easily palpable bilaterally. There was no adenopathy. M allampati class IV and the patient has no significant neck masses. There is significant crowding of the posterior oropharynx. Lungs sounds are diminished bilaterally with diminished breath on the lung bases. No wheezes or rhonchi. Cardiac exam revealed the PMI to be normally situated and sized. The rhythm was regular and no extrasystoles were noted during several minutes of auscultation. The first and second heart sounds were normal and physiologic splitting of the second heart sound was noted. There were no murmurs, rubs, clicks, or gallops. Abdomen is obese soft nontender. Organs cannot be accurately palpated. Examination of the extremities revealed easily palpable radial, femoral and p edal pulses. There was no cyanosis, clubbing or edema. Examination of the skin revealed no evidence of significant rashes, suspicious appearing nevi or other concerning lesions. Neurologically the patient is awake and alert and is no focal logical deficits. - Labs CBC & Chem 7: 05/06/20 05:19 05/07/20 09:26 Labs: Abnormal Lab Results - Last 24 Hours (Table) 05/07/20 Range/Units 09:26 Chloride 115 H (98-107) mmol/L Carbon Dioxide 19 L (22-30) mmol/L BUN 21 H (7-17) mg/dL Creatinine 1.44 H (0.52-1.04) mg/dL Glucose 101 H (74-99) mg/dL Microbiology - Last 24 Hours (Table) 05/05/20 20:00 Urine Culture - Final Urine,Catheterized 05/03/20 18:17 Blood Culture - Preliminary Blood No Growth after 72 hours 05/03/20 17:17 Urine Culture - Final Urine,Voided Enterococcus faecium VRE Pseudomonas aeruginosa Assessment and Plan Assessment: 1 altered mentation, fully recovered and the patient has a normal CAT scan of the brain. No focal neurological deficits. Neuro exam is within normal limits and neurology's in consultation. Exact cause is not clear. Consider cardiac arrhythmias versus sleep apnea contributing to her altered mentation 2 severe obstructive sleep apnea with an AHI of 45 currently on CPAP at a pressure of 16 cm of water along with oxygen at 2 L. Questionable compliance da ta CPAP therapy and need to check her CPAP machine and the compliance data to confirm that. 3 morbid obesity with a BMI of 47 4 hypertensive heart disease with concentric LVH, the patient and hyperdynamic LV with an ejection fraction of about 70% in addition to severe concentric left ventricular hypertrophy. 5 hypertension 6 chronic kidney disease probably related to hypertensive nephrosclerosis, and creatinine remains stable for now. 7 bradycardia, sinus, could be related to sleep apnea. Cannot rule out underlying intrinsic cardiac arrhythmias 8 remote history of DVT 9 osteoarthritis 10 chronic iron deficiency anemia, currently receiving IV iron Plan The patient was seen and evaluated by Dr. Catalan She is stable from the pulmonary and critical care standpoint She is again encouraged to use her CPAP nightly at home. She'll follow-up in the sleep Center for compliance check. I, the cosigning physician, performed a history & physical examination of the patient. Lungs sounds are clear, diminished. Maintaining good O2 saturations in the 90s on room air. I discussed the assessment and plan of care with my nurse practitioner, Kacey Olea. I attest to the above note as dictated by her.
--- NOTE | 2020-05-07 18:34 | DS ---
DISCHARGE SUMMARY CHIEF COMPLAINT: Altered mental status, dehydration and hyperkalemia. HISTORY OF PRESENT ILLNESS AND PHYSICAL EXAMINATION: Details of this lady's history and physical can be found in the initial workup. LABORATORY STUDIES: While she was in the hospital, she had laboratory studies, details of which can be found in the laboratory section of her chart. COURSE IN THE HOSPITAL: After admission, she was placed on bedrest and started on intravenous fluids. She was seen and followed by Cardiology. Initially, blood pressure was low, but this improved. She did have elevated troponins, but no further studies were obtained. She had no chest pain. She had no significant problems with mental status, shortness of breath, orthopnea, etc. She was doing well and it was felt she could be discharged. She will go home on her usual activity, diet and medications and she will be followed up in several days in the office. FINAL DIAGNOSES: 1. Mental status changes. 2. Dehydration. 3. Hypotension. 4. Congestive heart failure (diastolic). She is improved. She had a consult with Cardiology. MORENO / CEZARN: [id number] /
== END 2020-05-07 13:19 | disposition home or self-care (01) | DRG 71 ==
LOC: EC 13:31 → 4SSUR 16:17 → 3SCARD 23:25 → 2SICU 05-04 00:12 → 3SCARD 05-06 18:12
PROVIDERS: ADMIT Family Medicine; ATTEND Family Medicine
PROC: 05HD33Z Insertion of Infusion Device into Right Cephalic Vein, Percutaneous Approach (ICD-10-PCS; principal; 2020-05-04 11:40)
DX: G93.40 Encephalopathy, unspecified (principal); I50.32 Chronic diastolic (congestive) heart failure; I13.0 Hypertensive heart and chronic kidney disease with heart failure and stage 1 through stage 4 chronic kidney disease, or unspecified chronic kidney disease; N39.0 Urinary tract infection, site not specified; Z68.42 Body mass index [BMI] 45.0-49.9, adult; E87.2 Acidosis; Z11.59 Encounter for screening for other viral diseases; D63.1 Anemia in chronic kidney disease; N18.3 Chronic kidney disease, stage 3 (moderate); I95.9 Hypotension, unspecified; J44.9 Chronic obstructive pulmonary disease, unspecified; E66.01 Morbid (severe) obesity due to excess calories; R00.0 Tachycardia, unspecified; M17.0 Bilateral primary osteoarthritis of knee; I25.10 Atherosclerotic heart disease of native coronary artery without angina pectoris; F41.9 Anxiety disorder, unspecified; E87.5 Hyperkalemia; E86.0 Dehydration; R00.1 Bradycardia, unspecified; G47.33 Obstructive sleep apnea (adult) (pediatric); R32 Unspecified urinary incontinence; B95.2 Enterococcus as the cause of diseases classified elsewhere; I35.0 Nonrheumatic aortic (valve) stenosis; Z79.51 Long term (current) use of inhaled steroids; Z79.899 Other long term (current) drug therapy; Z79.82 Long term (current) use of aspirin; Z87.01 Personal history of pneumonia (recurrent); Z86.718 Personal history of other venous thrombosis and embolism; Z98.890 Other specified postprocedural states; Z91.19 Patient's noncompliance with other medical treatment and regimen; Z82.49 Family history of ischemic heart disease and other diseases of the circulatory system; Z83.6 Family history of other diseases of the respiratory system; Z80.8 Family history of malignant neoplasm of other organs or systems
CPT/HCPCS: 36410; 36415; 36600; 70450; 71045; 71046; 72170; 76937; 80048; 80053; 80306; 80320; 81001; 82550; 82553; 82803; 82805; 83540; 83550; 83605; 83735; 83874; 83880; 84132; 84443; 84484; 85025; 85379; 85610; 85730; 87040; 87077; 87086; 87186; 93005; 93306; 94640; 94760; 95819; 96374; 96375; 99285

== ENCOUNTER 2020-12-09 17:40 | Inpatient (IN) | payer OTHER ==
[2020-12-09 18:26] LABS: Anisocytosis Slight; Basophils % (A) 0 %; Eosinophils % (A) 0 %; HCT 36.9 % (34.0-46.0); HGB 10.3 gm/dL (11.4-16.0); Hypochromasia Marked; Lymphocytes # (A) 0.8 k/uL (1.0-4.8); Lymphocytes % (A) 10 %; MCH 21.3 pg (25.0-35.0); MCHC 27.9 g/dL (31.0-37.0); MCV 76.3 fL (80.0-100.0); Mean Platelet Volume 7.8; Microcytosis Slight; Monocytes # (A) 0.3 k/uL (0-1.0); Monocytes % (A) 4 %; Neutrophils # (A) 6.8 k/uL (1.3-7.7); Neutrophils % (A) 84 %; Platelet Count 245 k/uL (150-450); Poikilocytosis Slight; RBC 4.84 m/uL (3.80-5.40); RDW 17.4 % (11.5-15.5); WBC 8.1 k/uL (3.8-10.6)
[2020-12-09 18:31] LABS: Albumin 3.9 g/dL (3.5-5.0); Calcium 9.2 mg/dL (8.4-10.2); Potassium 4.3 mmol/L (3.5-5.1); Total Bilirubin 0.5 mg/dL (0.2-1.3); Total Protein 7.7 g/dL (6.3-8.2)
[2020-12-09 18:41] LABS: Partial Thromboplastin Time 23.5 sec (22.0-30.0); Prothrombin Time 10.4 sec (9.0-12.0)
--- NOTE | 2020-12-09 18:48 | XR ---
EXAMINATION TYPE: XR chest 2V DATE OF EXAM: 12/09/2020 COMPARISON: 05/05/2020 HISTORY: Difficulty breathing TECHNIQUE: FINDINGS: Heart is enlarged. There is some pulmonary vascular congestion. There is slight blunting of the costophrenic angles. IMPRESSION: Pulmonary congestion slightly increased compared to old exam. Mild heart failure is possi ble.
--- NOTE | 2020-12-09 19:13 | ED ---
SOB HPI - General Chief Complaint: Shortness of Breath Stated Complaint: sob/headach/female Time Seen by Provider: 12/09/20 17:47 Source: patient Mode of arrival: ambulatory Limitations: no limitations - History of Present Illness Initial Comments: 45-year-old female patient with past medical history significant for DVT, CAD, and CHF presents to the emergency department today for evaluation of shortness of breath. States she has been having increased shortness of breath over the last couple of days. States she's had increased swelling to the lower extremities over the last week. States she does take a water pill and has been urinating. States that she has been having wear oxygen at home more than usual. She gets a shortness of breath with any activity. She also has swelling to the left arm which started about a week ago, she had blood work done by her primary care physician but has not gotten results yet. She denies any fever or chills. Denies any injury to the arm. She is not currently taking anticoagulants or antiplatelet medications due to GI bleed history. Patient denies any recent rash, cough, chest pain, abdominal pain, nausea, vomiting, diarrhea, constipation, back pain, numbness, tingling, dizziness, weakness, hematuria, dysuria, urinary urgency, urinary frequency, headache, visual changes, or any other complaints. - Related Data Home Medications Medication Instructions Recorded Confirmed Baclofen [Lioresal] 10 mg PO TID PRN 11/05/17 05/03/20 Budesonide/Formoterol Fumarate 2 puff INHALATION RT-BID 11/05/17 05/03/20 [Symbicort 160-4.5 Mcg Inhaler] Omeprazole 20 mg PO DAILY 11/05/17 05/03/20 minoxidiL [Minoxidil] 10 mg PO DAILY 11/05/17 05/03/20 Ibuprofen [Motrin] 800 mg PO QID PRN 01/04/19 05/03/20 LORazepam [Ativan] 2 mg PO TID PRN 01/04/19 05/03/20 Metoprolol Tartrate [Lopressor] 100 mg PO BID 01/04/19 05/03/20 Potassium Chloride [Klor-Con 20 20 meq PO DAILY 01/04/19 05/03/20 Packets] Sodium Bicarbonate 325 mg PO BID 01/04/19 05/03/20 Spironolactone [Aldactone] 25 mg PO DAILY 01/04/19 05/03/20 cloNIDine HCL 0.3 mg PO TID 01/04/19 05/03/20 hydrALAZINE HCL [Apresoline] 100 mg PO TID 01/04/19 05/03/20 Albuterol Sulfate [Ventolin HFA] 1 - 2 puff INHALATION RT-QID PRN 05/03/20 05/03/20 Furosemide [Lasix] 40 mg PO DAILY 05/03/20 05/03/20 Previous Rx's Medication Instructions Recorded Aspirin 81 mg PO DAILY #100 chew 01/09/18 Ferrous Sulfate [Iron (65 MG 325 mg PO TID-W/MEALS #90 tab 05/07/20 Elemental)] Levofloxacin [Levaquin] 500 mg PO Q24H #10 tab 05/07/20 Allergies Allergy/AdvReac Type Severity Reaction Status Date / Time No Known Allergies Allergy Verified 12/09/20 17:45 Review of Systems ROS Statement: Those systems with pertinent positive or pertinent negative responses have been documented in the HPI. ROS Other: All systems not noted in ROS Statement are negative. Past Medical History Past Medical History: Coronary Artery Disease (CAD), Chest Pain / Angina, Heart Failure, Hypertension, Osteoarthritis (OA), Pneumonia, Renal Disease Additional Past Medical History / Comment(s): SVT, sinus pauses, anemia, chronic kidney disease, blood clots-pt stated took xarelto for awhile, arthritis bilateral knees, anemia, constipation History of Any Multi-Drug Resistant Organisms: VRE Date of last positivie culture/infection: 05/03/20 MDRO Source:: VRE URINE Past Surgical History: Section, Hernia Repair Additional Past Surgical History / Comment(s): adominal hernia repair with mesh, cysts removed from stomach Past Anesthesia/Blood Transfusion Reactions: No Reported Reaction Additional Past Anesthesia/Blood Transfusion Reaction / Comment(s): Pt has received blood in the past without reaction. Past Psychological History: Anxiety Smoking Status: Never smoker Past Alcohol Use History: None Reported Past Drug Use History: None Reported - Past Family History Father Family Medical History: Congestive Heart Failure (CHF) Additional Family Medical History / Comment(s): Father from CHF. Mother Family Medical History: Cancer, Hypertension, Sleep Apnea/CPAP/BIPAP Additional Family Medical History / Comment(s): Mother has had cancer removed from ear/head. General Exam Limitations: no limitations General appearance: alert, in no apparent distress, other (This is a well- developed, well-nourished adult female patient in no acute distress. Vital signs upon presentation are temperature 97.9F oral, pulse 110, respirations 26, blood pressure 151/95, pulse ox 91% on room air.) Eye exam: Present: normal appearance, PERRL, EOMI. Absent: scleral icterus, conjunctival injection, periorbital swelling ENT exam: Present: normal exam, normal oropharynx, mucous membranes moist Respiratory exam: Present: decreased breath sounds (bilateral). Absent: respiratory distress, wheezes, rales, rhonchi, stridor Cardiovascular Exam: Present: normal rhythm, tachycardia, normal heart sounds. Absent: systolic murmur, diastolic murmur, rubs, gallop, clicks GI/Abdominal exam: Present: soft, normal bowel sounds. Absent: distended, tenderness, guarding, rebound, rigid Extremities exam: Present: full ROM, normal capillary refill, other (There is generalized swelling noted to the left arm, radial pulses 2+ and equal. His arm is warm and dry.). Absent: normal inspection, tenderness, pedal edema, joint swelling, calf tenderness Neurological exam: Present: alert, oriented X3, CN II-XII intact Psychiatric exam: Present: normal affect, normal mood Skin exam: Present: warm, dry, intact, normal color. Absent: rash Course Vital Signs 12/09/20 12/09/20 12/09/20 17:42 19:30 20:28 Temperature 97.9 F Pulse Rate 110 H 103 H 102 H Respiratory 26 H 22 22 Rate Blood Pressure 151/95 153/98 145/92 O2 Sat by Pulse 91 L 93 L 95 Oximetry Medical Decision Making - Medical Decision Making 45 year-old female patient presents to the emergency department today for evaluation of increased shortness of breath and lower extremity edema. Physical examination did reveal crackles at the bilateral lung bases. Left arm edema. Lower leg and pedal edema. Labs reviewed and show elevated d-dimer of 0.70. BUN 22, creatinine 1.56, GFR 46. Troponin 0.04 ninth of this does seem to be chronically elevated for this patient. Urinalysis shows large blood however patient is currently on her period. Chest x-ray did show pulmonary vascular congestion with blunting of the costophrenic angles consistent with mild congestive heart failure. We did perform CT of the chest with contrast for p ulmonary embolism and showed no evidence for PE but did show interstitial infiltrates and changes consistent with congestive heart failure. Patient was given IV dose of Lasix. BNP is pending. She'll be admitted to the hospital for further evaluation by cardiology and further IV Lasix. Case discussed with Dr. Stanford. Case discussed with my attending Dr. Duval. - Lab Data Result diagrams: 12/09/20 18:12 12/09/20 18:12 Lab Results 12/09/20 12/09/20 12/09/20 Range/Units 18:12 18:12 18:12 WBC 8.1 (3.8-10.6) k/uL RBC 4.84 (3.80-5.40) m/uL Hgb 10.3 L (11.4-16.0) gm/dL Hct 36.9 (34.0-46.0) % MCV 76.3 L (80.0-100.0) fL MCH 21.3 L (25.0-35.0) pg MCHC 27.9 L (31.0-37.0) g/dL RDW 17.4 H (11.5-15.5) % Plt Count 245 (150-450) k/uL MPV 7.8 Neutrophils % 84 % Lymphocytes % 10 % Monocytes % 4 % Eosinophils % 0 % Basophils % 0 % Neutrophils # 6.8 (1.3-7.7) k/uL Lymphocytes # 0.8 L (1.0-4.8) k/uL Monocytes # 0.3 (0-1.0) k/uL Eosinophils # 0.0 (0-0.7) k/uL Basophils # 0.0 (0-0.2) k/uL Hypochromasia Marked Poikilocytosis Slight Anisocytosis Slight Microcytosis Slight PT 10.4 (9.0-12.0) sec INR 1.0 (<1.2) APTT 23.5 (22.0-30.0) sec D-Dimer (<0.60) mg/L FEU Sodium 144 (137-145) mmol/L Potassium 4.3 (3.5-5.1) mmol/L Chloride 112 H (98-107) mmol/L Carbon Dioxide 22 (22-30) mmol/L Anion Gap 10 mmol/L BUN 22 H (7-17) mg/dL Creatinine 1.56 H (0.52-1.04) mg/dL Est GFR (CKD-EPI)AfAm 46 (>60 ml/min/1.73 sqM) Est GFR (CKD-EPI)NonAf 40 (>60 ml/min/1.73 sqM) Glucose 100 H (74-99) mg/dL Plasma Lactic Acid Antony (0.7-2.0) mmol/L Calcium 9.2 (8.4-10.2) mg/dL Magnesium 2.0 (1.6-2.3) mg/dL Total Bilirubin 0.5 (0.2-1.3) mg/dL AST 17 (14-36) U/L ALT 9 (4-34) U/L Alkaline Phosphatase 82 (38-126) U/L Troponin I (0.000-0.034) ng/mL Total Protein 7.7 (6.3-8.2) g/dL Albumin 3.9 (3.5-5.0) g/dL Urine Color Urine Appearance (Clear) Urine pH (5.0-8.0) Ur Specific [place] (1.001-1.035) Urine Protein (Negative) Urine Glucose (UA) (Negative) Urine Ketones (Negative) Urine Blood (Negative) Urine Nitrite (Negative) Urine Bilirubin (Negative) Urine Urobilinogen (<2.0) mg/dL Ur Leukocyte Esterase (Negative) Urine RBC (0-5) /hpf Urine WBC (0-5) /hpf Urine Mucus (None) /hpf 12/09/20 12/09/20 12/09/20 Range/Units 18:12 18:12 18:15 WBC (3.8-10.6) k/uL RBC (3.80-5.40) m/uL Hgb (11.4-16.0) gm/dL Hct (34.0-46.0) % MCV (80.0-100.0) fL MCH (25.0-35.0) pg MCHC (31.0-37.0) g/dL RDW (11.5-15.5) % Plt Count (150-450) k/uL MPV Neutrophils % % Lymphocytes % % Monocytes % % Eosinophils % % Basophils % % Neutrophils # (1.3-7.7) k/uL Lymphocytes # (1.0-4.8) k/uL Monocytes # (0-1.0) k/uL Eosinophils # (0-0.7) k/uL Basophils # (0-0.2) k/uL Hypochromasia Poikilocytosis Anisocytosis Microcytosis PT (9.0-12.0) sec INR (<1.2) APTT (22.0-30.0) sec D-Dimer 0.70 H (<0.60) mg/L FEU Sodium (137-145) mmol/L Potassium (3.5-5.1) mmol/L Chloride (98-107) mmol/L Carbon Dioxide (22-30) mmol/L Anion Gap mmol/L BUN (7-17) mg/dL Creatinine (0.52-1.04) mg/dL Est GFR (CKD-EPI)AfAm (>60 ml/min/1.73 sqM) Est GFR (CKD-EPI)NonAf (>60 ml/min/1.73 sqM) Glucose (74-99) mg/dL Plasma Lactic Acid Antony 1.2 (0.7-2.0) mmol/L Calcium (8.4-10.2) mg/dL Magnesium (1.6-2.3) mg/dL Total Bilirubin (0.2-1.3) mg/dL AST (14-36) U/L ALT (4-34) U/L Alkaline Phosphatase (38-126) U/L Troponin I 0.049 H* (0.000-0.034) ng/mL Total Protein (6.3-8.2) g/dL Albumin (3.5-5.0) g/dL Urine Color Urine Appearance (Clear) Urine pH (5.0-8.0) Ur Specific [place] (1.001-1.035) Urine Protein (Negative) Urine Glucose (UA) (Negative) Urine Ketones (Negative) Urine Blood (Negative) Urine Nitrite (Negative) Urine Bilirubin (Negative) Urine Urobilinogen (<2.0) mg/dL Ur Leukocyte Esterase (Negative) Urine RBC (0-5) /hpf Urine WBC (0-5) /hpf Urine Mucus (None) /hpf 12/09/20 Range/Units 19:51 WBC (3.8-10.6) k/uL RBC (3.80-5.40) m/uL Hgb (11.4-16.0) gm/dL Hct (34.0-46.0) % MCV (80.0-100.0) fL MCH (25.0-35.0) pg MCHC (31.0-37.0) g/dL RDW (11.5-15.5) % Plt Count (150-450) k/uL MPV Neutrophils % % Lymphocytes % % Monocytes % % Eosinophils % % Basophils % % Neutrophils # (1.3-7.7) k/uL Lymphocytes # (1.0-4.8) k/uL Monocytes # (0-1.0) k/uL Eosinophils # (0-0.7) k/uL Basophils # (0-0.2) k/uL Hypochromasia Poikilocytosis Anisocytosis Microcytosis PT (9.0-12.0) sec INR (<1.2) APTT (22.0-30.0) sec D-Dimer (<0.60) mg/L FEU Sodium (137-145) mmol/L Potassium (3.5-5.1) mmol/L Chloride (98-107) mmol/L Carbon Dioxide (22-30) mmol/L Anion Gap mmol/L BUN (7-17) mg/dL Creatinine (0.52-1.04) mg/dL Est GFR (CKD-EPI)AfAm (>60 ml/min/1.73 sqM) Est GFR (CKD-EPI)NonAf (>60 ml/min/1.73 sqM) Glucose (74-99) mg/dL Plasma Lactic Acid Antony (0.7-2.0) mmol/L Calcium (8.4-10.2) mg/dL Magnesium (1.6-2.3) mg/dL Total Bilirubin (0.2-1.3) mg/dL AST (14-36) U/L ALT (4-34) U/L Alkaline Phosphatase (38-126) U/L Troponin I (0.000-0.034) ng/mL Total Protein (6.3-8.2) g/dL Albumin (3.5-5.0) g/dL Urine Color Yellow Urine Appearance Cloudy H (Clear) Urine pH 6.5 (5.0-8.0) Ur Specific [place] 1.014 (1.001-1.035) Urine Protein 3+ H (Negative) Urine Glucose (UA) Negative (Negative) Urine Ketones Negative (Negative) Urine Blood Large H (Negative) Urine Nitrite Negative (Negative) Urine Bilirubin Negative (Negative) Urine Urobilinogen <2.0 (<2.0) mg/dL Ur Leukocyte Esterase Negative (Negative) Urine RBC >182 H (0-5) /hpf Urine WBC 2 (0-5) /hpf Urine Mucus Rare H (None) /hpf - Radiology Data Radiology results: report reviewed, image reviewed Two-view x-ray of the chest is obtained. Report was reviewed in its entirety. Impression by Dr. Wells shows pulmonary congestion slightly increased compared to old exam. Mild heart failure as possible. CT chest Angio for PE was obtained. Impression by Dr. Wells shows no evidence of pulmonary embolism. Moderate cardiomegaly with pericardial effusion. Interstitial pulmonary infiltrates. Ultrasound the left upper extremity was obtained, no evidence for DVT. Impression is by Dr. Wells. Disposition Clinical Impression: CHF exacerbation, Left arm swelling, Elevated troponin, Pericardial effusion Disposition: ADMITTED IP TO THIS [facility] Condition: Serious Referrals: Kevin Stanford MD [Primary Care Provider] - 1-2 days Decision to Admit Reason: Admit from EC Decision Date: 12/09/20 Decision Time: 20:56
--- NOTE | 2020-12-09 19:17 | US ---
EXAMINATION TYPE: US venous doppler duplex UE LT DATE OF EXAM: 12/09/2020 COMPARISON: NONE CLINICAL HISTORY: Left arm swelling. SIDE PERFORMED: left Morbidly obese patient technically difficult study. Exam somewhat limited. Left Arm: Appears negative for DVT. Superficial basilic vein not seen due to patient inability to abduct her arm. IMPRESSION: No evidence of deep vein thrombosis in the left arm.
[2020-12-09] MEDS ORDERED: SODIUM CHLORIDE 0.9% 500 ML 500 ML IV ONE (19:55)
[2020-12-09 20:09] LABS: Appearance,Urine Cloudy (Clear); Bilirubin,Urine Negative (Negative); Blood,Urine Large (Negative); Color,Urine Yellow; Glucose,Urine (UA) Negative (Negative); Ketones,Urine Negative (Negative); Leukocyte Esterase,Urine Negative (Negative); Mucus,Urine Rare /hpf; Nitrite,Urine Negative (Negative); PH, Urine 6.5 (5.0-8.0); Protein,Urine 3+ (Negative); RBC,Urine >182 /hpf (0-5); Specific Gravity,Urine 1.014 (1.001-1.035); Urobilinogen,Urine <2.0 mg/dL (<2.0); WBC,Urine 2 /hpf (0-5)
--- NOTE | 2020-12-09 20:30 | CT ---
EXAMINATION TYPE: CT chest angio for PE DATE OF EXAM: 12/09/2020 COMPARISON: None HISTORY: SOB CT DLP: 1121.4 mGycm Automated exposure control for dose reduction was used. CONTRAST: Performed with IV Contrast, patient injected with 80cc mL of Isovue 370. There is some patchy groundglass interstitial infiltrate throughout the lungs. Heart is enlarged. The re is a mild pericardial effusion. There are a few paratracheal lymph nodes that measure up to 1 cm. There are no hilar masses. There is no evidence of filling defect in the pulmonary arteries. Thoracic aorta is intact. Ascending aorta measures 3.8 cm. There is no pleural effusion. There is no evidence of thoracic compression fracture. I see no focal bone destruction. The upper abd ominal soft tissues are intact. IMPRESSION: No evidence of pulmonary embolism. Moderate cardiomegaly with pericardial effusion. Interstitial pulm onary infiltrates. No pleural fluid seen to suggest heart failure. Heart failure not excluded.
[2020-12-09] MEDS ORDERED: FUROSEMIDE 10 MG/ML 4 ML VIAL IV STA (20:43)
[2020-12-10] MEDS: HYDROcodone/APAP 5-325MG 1 EACH TAB PO PRN ×2 (05:42→20:55)
[2020-12-10 06:04] LABS: Glucose,Whole Blood 82 mg/dL (75-99)
--- NOTE | 2020-12-10 08:30 | P.CRDCN ---
History of Present Illness Consult date: 12/10/20 Consult reason: congestive heart failure (pleural effusion) History of present illness: History of present illness: This is a 45-year-old female patient of Dr. Hoyt with a past medical history significant for hypertension, hypertensive heart disease, chronic diastolic heart failure, history of sinus pauses secondary to sleep apnea, chronic kidney disease, chronic anemia, morbid obesity and obstructive sleep apnea. Echocardiogram from April 2020 reveals EF of greater than 70% with severe concentric left hypertrophy, trace mitral regurgitation, mild tricuspid regurgitation, moderate pulmonary hypertension. Patient states that she has had significant swelling in her left arm, shortness of breath and lower extremity edema that is going on for about 2 weeks. She states she saw Dr. Stanford in the office and he did some testing at that time. She continued to have shortness of breath and is not on diuretics at home. Patient is on Aldactone. Patient presented to [facility] emergency center for evaluation. She was afebrile, heart rate 110, respiratory rate 26, blood pressure 151/95 and pulse ox 91% on 2 L nasal cannula. Hemoglobin 10.3. Sodium 144, potassium 4.3, chloride 112, CO2 22, BUN 52 and creatinine 1.56. Liver function tests were normal. Troponin 0.049. Lactic acid 1.2. D-dimer 0.7. Urinalysis positive for blood. Patient received doses of IV Lasix 40 mg and continued on 40 mg twice daily. Patient was admitted to the cardiac stepdown unit. pot reliner has been sinus tachycardia of 267 bpm when up to the commode chair. No pauses have been noted. Patient thinks that she has been urinating well overnight. She denies palpitations. Chest x-ray reveals pulmonary congestion slightly increased compared to old exam. Mild heart failure is possible. CTA of the chest revealed no evidence of pulmonary embolism. Moderate cardiomegaly with pericardial effusion. Interstitial pulmonary infiltrates. No pleural fluid seen to suggest heart failure. Heart failure not excluded. Left upper extremity ultrasound negative for DVT. Review Of Systems: Constitutional: No fever, no chills. Reports fatigue. EENT: No headache. No dizziness. Lungs: Reports shortness of breath, denies cough, no sputum production. No wheezing. Cardiovascular: No chest pain, reports lower extremity edema. Reports left upper extremity edema No palpitations. Reports orthopnea. No lightheadedness or dizziness. No syncopal episodes. Abdominal: No abdominal pain. No nausea, vomiting. No diarrhea. No constipation. No bloody or tarry stools.. No loss of appetite. Genitourinary: No dysuria.. No urinary retention. Musculoskeletal: No myalgias. No muscle weakness, no gait dysfunction, no frequent falls. No back pain. No neck pain. Integumentary: No wounds, no lesions. No rash or pruritus. No unusual bruising. Neurologic: No aphasia. No facial droop. No change in mentation. No head injury. No headache. No paralysis. No paresthesia. Psychiatric: No depression. No anxiety. Physical examination: Gen: This is a super morbid obese -French female. She is resting in bed and tripod type position, mild accessory muscle usage. VS: Afebrile, heart rate 109 225, blood pressure 101/80 and previously 157/106, pulse ox 100% on 3 L nasal cannula. HEENT: Head is atraumatic, normocephalic. Pupils equal, round. Sclerae is anicteric. NECK: Supple. No JVD. No lymphadenopathy. No thyromegaly. LUNGS: Diminished bilateral bases. No wheezes. HEART: Regular rate and rhythm. Systolic murmur. Tachycardic. ABDOMEN: Morbidly obese. Soft. Bowel sounds are present. No masses. No tend erness. EXTREMITIES: 2+ pedal edema. No calf tenderness. 3+ edema to the left hand/arm NEUROLOGICAL: Patient is awake, alert and oriented x3. Cranial nerves 2 through 12 are grossly intact. Assessment: Acute on chronic diastolic heart failure Hypertension, hypertensive cardiovascular disease Morbid obesity with obstructive sleep apnea Sinus tachycardia Left upper extremity edema, DVT ruled out Chronic kidney disease Plan: Continue Lasix 40 mg IV every 12 hours Monitor I&O, daily weights, renal function and electrolytes Resume patient on Lopressor 100 mg twice daily, minoxidil 10 mg daily, hydralazine 100 mg 3 times daily, Aldactone 25 mg daily, clonidine 0.3 mg 3 times daily Blood pressure will be rechecked prior to medications Obtain 2-D echocardiogram and Doppler study to assess cardiac structure and function Recommend consult to vascular surgery regarding left upper extremity edema Further recommendations to follow based upon clinical course Thank you kindly for this consultation. Nurse practitioner note has been reviewed, I agree with documented findings and plan of care. Patient was seen and examined. Past Medical History Past Medical History: Coronary Artery Disease (CAD), Chest Pain / Angina, Heart Failure, Hypertension, Osteoarthritis (OA), Pneumonia, Renal Disease Additional Past Medical History / Comment(s): SVT, sinus pauses, anemia, chronic kidney disease, blood clots-pt stated took xarelto for awhile, arthritis bilateral knees, anemia, constipation History of Any Multi-Drug Resistant Organisms: VRE Date of last positivie culture/infection: 05/03/20 MDRO Source:: VRE URINE Past Surgical History: Section, Hernia Repair Additional Past Surgical History / Comment(s): adominal hernia repair with mesh, cysts removed from stomach Past Anesthesia/Blood Transfusion Reactions: No Reported Reaction Additional Past Anesthesia/Blood Transfusion Reaction / Comment(s): Pt has received blood in the past without reaction. Past Psychological History: Anxiety Additional Psychological History / Comment(s): Pt takes ativan when needed for anxiety and states it helps. Pt lives at home with her 2 children. is independant. nopets. Smoking Status: Never smoker Past Alcohol Use History: None Reported Past Drug Use History: None Reported - Past Family History Father Family Medical History: Congestive Heart Failure (CHF) Additional Family Medical History / Comment(s): Father from CHF. Mother Family Medical History: Cancer, Hypertension, Sleep Apnea/CPAP/BIPAP Additional Family Medical History / Comment(s): Mother has had cancer removed from ear/head. Medications and Allergies Home Medications Medication Instructions Recorded Confirmed Type Baclofen [Lioresal] 10 mg PO DAILY PRN 11/05/17 12/09/20 History Budesonide/Formoterol Fumarate 2 puff INHALATION RT-BID 11/05/17 12/09/20 History [Symbicort 160-4.5 Mcg Inhaler] Omeprazole 20 mg PO DAILY 11/05/17 12/09/20 History minoxidiL [Minoxidil] 10 mg PO DAILY 11/05/17 12/09/20 History Aspirin 81 mg PO DAILY #100 chew 01/09/18 12/09/20 Rx Ibuprofen [Motrin] 800 mg PO DAILY PRN 01/04/19 12/09/20 History LORazepam [Ativan] 2 mg PO TID PRN 01/04/19 12/09/20 History Metoprolol Tartrate [Lopressor] 100 mg PO BID 01/04/19 12/09/20 History Spironolactone [Aldactone] 25 mg PO DAILY 01/04/19 12/09/20 History cloNIDine HCL 0.3 mg PO TID 01/04/19 12/09/20 History hydrALAZINE HCL [Apresoline] 100 mg PO TID 01/04/19 12/09/20 History Albuterol Sulfate [Ventolin HFA] 1 - 2 puff INHALATION RT-QID PRN 05/03/20 12/09/20 History Ferrous Sulfate [Iron (65 MG 325 mg PO TID-W/MEALS #90 tab 05/07/20 12/09/20 Rx Elemental)] Allergies Allergy/AdvReac Type Severity Reaction Status Date / Time No Known Allergies Allergy Verified 12/09/20 22:34 Physical Exam Vitals: Vital Signs Temp Pulse Pulse Resp BP BP Pulse Ox 12/10/20 05:29 98.6 F 125 H 21 101/80 100 12/10/20 03:06 109 H 19 157/106 95 12/10/20 02:00 120 H 19 12/09/20 23:01 108 H 19 161/109 99 12/09/20 22:25 97.8 F 108 H 20 152/87 97 12/09/20 21:44 98.2 F 102 H 20 126/91 96 12/09/20 20:28 102 H 22 145/92 95 12/09/20 19:30 103 H 22 153/98 93 L 12/09/20 17:42 97.9 F 110 H 26 H 151/95 91 L Intake and Output 12/09/20 12/10/20 12/10/20 22:59 06:59 14:59 Intake Total 0 50 Output Total 400 1700 Balance -400 -1650 Intake: Oral 0 50 Output: Urine 400 1700 Other: Voiding Method Bedside Commode # Voids 1 1 Weight 158.757 kg 162.4 kg Results 12/09/20 18:12 12/09/20 18:12 Cardiac Enzymes 12/09/20 12/09/20 12/09/20 Range/Units 18:12 18:12 21:10 AST 17 (14-36) U/L Troponin I 0.049 H* 0.054 H* (0.000-0.034) ng/mL 12/10/20 Range/Units 00:32 AST (14-36) U/L Troponin I 0.049 H* (0.000-0.034) ng/mL Coagulation 12/09/20 Range/Units 18:12 PT 10.4 (9.0-12.0) sec APTT 23.5 (22.0-30.0) sec CBC 12/09/20 Range/Units 18:12 WBC 8.1 (3.8-10.6) k/uL RBC 4.84 (3.80-5.40) m/uL Hgb 10.3 L (11.4-16.0) gm/dL Hct 36.9 (34.0-46.0) % Plt Count 245 (150-450) k/uL Comprehensive Metabolic Panel 12/09/20 Range/Units 18:12 Sodium 144 (137-145) mmol/L Potassium 4.3 (3.5-5.1) mmol/L Chloride 112 H (98-107) mmol/L Carbon Dioxide 22 (22-30) mmol/L BUN 22 H (7-17) mg/dL Creatinine 1.56 H (0.52-1.04) mg/dL Glucose 100 H (74-99) mg/dL Calcium 9.2 (8.4-10.2) mg/dL AST 17 (14-36) U/L ALT 9 (4-34) U/L Alkaline Phosphatase 82 (38-126) U/L Total Protein 7.7 (6.3-8.2) g/dL Albumin 3.9 (3.5-5.0) g/dL Current Medications Generic Name Dose Route Start Last Admin Trade Name Freq PRN Reason Stop Dose Admin Hydrocodone Bitart/Acetaminophen 1 each 12/10/20 05:38 12/10/20 05:42 Hydrocodone/Apap 5-325mg 1 Each Tab PO 1 each Q6HR PRN Administration Pain Furosemide 40 mg 12/10/20 09:00 Furosemide 10 Mg/Ml 4 Ml Vial IV Q12HR FARRAH Sodium Chloride 10 ml 12/09/20 21:00 12/09/20 22:59 Sodium Chloride 0.9% Flush 10 Ml Syringe IV Not Given BID FARRAH Intake and Output 12/09/20 12/10/20 12/10/20 22:59 06:59 14:59 Intake Total 0 50 Output Total 400 1700 Balance -400 -1650 Intake: Oral 0 50 Output: Urine 400 1700 Other: Voiding Method Bedside Commode # Voids 1 1 Weight 158.757 kg 162.4 kg Patient Weight 12/11/20 07:59 Weight 162.4 kg 12/09/20 18:12 12/09/20 18:12
[2020-12-10] MEDS: FUROSEMIDE 10 MG/ML 4 ML VIAL IV SCH ×2 (09:09→20:56)
[2020-12-10] MEDS: ASPIRIN 81 MG PO SCH (09:10)
[2020-12-10] MEDS: hydrALAZINE HCL 50 MG TAB PO SCH ×2 (09:10→16:20)
[2020-12-10] MEDS: METOPROLOL TARTRATE 50 MG TAB PO SCH ×2 (09:10→20:55)
[2020-12-10] MEDS: cloNIDine HCL 0.1 MG TAB PO SCH ×2 (09:10→16:20)
[2020-12-10] MEDS: SPIRONOLACTONE 25 MG TAB PO SCH (09:10)
[2020-12-10] MEDS ORDERED: BACLOFEN 10 MG TAB PO PRN (09:53)
[2020-12-10] MEDS: FERROUS SULFATE 325 MG TAB PO SCH ×2 (11:37→16:20)
[2020-12-10 11:40] LABS: Glucose,Whole Blood 109 mg/dL (75-99)
[2020-12-10 14:12] VITALS: BMI 56.0
--- NOTE | 2020-12-10 16:12 | HP ---
HISTORY AND PHYSICAL CHIEF COMPLAINT: Shortness of breath and edema in the left upper extremity. HISTORY OF PRESENT ILLNESS: This is another of many admissions for this morbidly obese 45-year-old female. She is very pleasant and over the last year or 2 has been more serious about trying to handle her medical issues. She is extremely overweight and has massive cardiomegaly with congestive heart failure. A friend or relative called the office stating that she was doing very poorly and that she could not get up and around due to extreme shortness of breath and that she also developed a lot of unexplained and painful edema of the left upper extremity. We set up a tele health call with the patient and she did seem to be in extremis. She agreed to go to the hospital and made arrangements. REVIEW OF SYSTEMS: She has had no neurologic problems or changes including vision or hearing. She has had no chest pain. She has had no fever, chills, and she has had no sputum production, hemoptysis. She has had no vomiting, diarrhea, melena, etc. Past medical history, family history, personal and social histories reviewed and revealed that she had her disease processes complicated by having chronic kidney disease and hypertension. MEDICATIONS: She states she is taking include: Lasix 80 mg once a day, clonidine 0.3 t.i.d., metoprolol 100 mg twice a day, spironolactone 25 once a day, omeprazole 20 mg once a day, Ativan 2 mg t.i.d. p.r.n., minoxidil 10 mg once a day, baclofen 10 mg once a day, ibuprofen 800 mg once a day p.r.n., atorvastatin 40 q.h.s., hydralazine 100 mg t.i.d., Symbicort 160/4.5 two puffs twice a day, and Entresto 97/103 twice a day, KCl 20 mEq once a day, Ventolin HFA, and sodium bicarb 325 twice a day. She does not smoke or drink. PHYSICAL EXAMINATION: Blood pressure is 103/55 with a pulse of 90, respirations of 40 and she is afebrile. In general, she appeared to be morbidly obese and short of breath. HEAD, ears, eyes, nose, mouth and throat were normal. NECK veins cannot be assessed. CHEST demonstrated poor breath sounds with scattered rales. CARDIAC exam demonstrated what sounded like sinus tachycardia and S3 and S4 could not be heard. ABDOMEN is extremely protuberant and could not be examined. EXTREMITIES are very adipose and edema is difficult to appreciate. NEUROLOGICALLY she is intact. IMPRESSION: She is admitted to the hospital with diagnoses: 1. Acute on chronic systolic and diastolic hypertension. 2. Cardiomyopathy. 3. Pickwickian syndrome. 4. Renal failure. 5. Significant edema of the left upper extremities. PLAN: 1. Bedrest. 2. Diaphoresis. 3. Echocardiogram. 4. Consult Cardiology. 5. Consult vascular surgery regarding left upper extremity edema. 6. Consult breast surgery who has followed her in the past for an abnormality in the left breast. Currently, the breast exam seems to be normal. MMODL / IJN: [id number] /
--- NOTE | 2020-12-10 16:20 | PN ---
PROGRESS NOTE CHIEF COMPLAINT: Congestive heart failure and edema left arm. HISTORY OF PRESENT ILLNESS: This lady is still very dyspneic. She is still having quite a bit of difficulty with swelling in the left arm. PHYSICAL EXAMINATION: Breath sounds are diminished throughout with extensive rales and rhonchi. Cardiac exam is unchanged. Left arm remains very edematous. IMPRESSION: 1. Acute on chronic congestive heart failure. 2. Cardiomyopathy. 3. Morbid obesity. 4. Edema of the left upper extremity. PLAN: 1. Await results of echocardiogram and cardiology consult. 2. Refer to vascular surgery. MMODL / IJN: [id number] /
[2020-12-10 16:24] LABS: Glucose,Whole Blood 107 mg/dL (75-99)
[2020-12-10] MEDS: SYMBICORT 160-4.5 MCG INHALER INHALATION SCH (19:41)
[2020-12-10 20:33] LABS: Glucose,Whole Blood 120 mg/dL (75-99)
--- NOTE | 2020-12-10 20:46 | P.GSHP ---
History of Present Illness H&P Date: 12/10/20 Chief Complaint: Swelling left upper extremity Ankita is a 45-year-old morbidly obese -[place] female. She has known cardiomegaly with congestive heart failure and presented to the emergency department with increasing shortness of breath. Additionally she states that over the last 2 weeks she has had increased swelling of her left upper extremity. She has a significant history for DVT, coronary artery disease, and congestive heart failure. She is also noted increased swelling in her lower extremities. She has not had any fever or chills. She has not had any injury to her arm. In the past she was noted to have thickening of the skin of the left breast and underwent a skin biopsy and core biopsy of the breast. These were done on 09-12-18. There was concern about inflammatory breast cancer however the biopsies were negative. The head of the left breast at 2:00 revealed benign predominantly fatty breast parenchyma with benign ductal structures. Mild chronic ductal inflammation was noted. The skin of the left breast in the periareolar region revealed benign pigmented skin overlying benign dermis with skin appendages. Second biopsy of the skin revealed benign pigmented skin with focal follicular plugging and benign dermis. At that time 09-18-18 the patient underwent a venous doppler which was negative for left arm DVT. At that time she was recommended to have an MRI of the breast as well as an appointment with medical oncology. Family history: Mother colon cancer unknown type Maternal grandmother: Spine cancer Maternal: Breast cancer in her 40s Hormonal history: Menarche: 12 , prosthetic: Negative First at 15 Last menstrual period: Patient is having her period now control pills: States she took them intermittently for 6 years Hormones: Negative Surgical history: Hernia Medical history: Arthritis Sleep apnea CHF Hypertension Social history: Smoke: Negative Alcohol: Negative Drugs: Negative - Constitutional Constitutional: Denies chills, Denies fever - EENT Ears: deny: decreased hearing, tinnitus Ears, nose, mouth and throat: Denies headache, Denies sore throat - Breasts Breasts: bilateral: as per HPI - Cardiovascular Comment: CHF Cardiovascular: Denies chest pain, Denies shortness of breath - Respiratory Comment: shortness of breath, oxygen dependent - Gastrointestinal Gastrointestinal: Reports constipation - Genitourinary (Female) Genitourinary: Denies dysuria, Denies hematuria - Menstruation Comment: having her period now, thinks she may be periomenopausal - Musculoskeletal Comment: arthritis - Integumentary Comment: Thickening of the skin of the left breast near the nipple areolar region, with changes suggestive of [place] - Neurological Neurological: Denies numbness, Denies weakness - Psychiatric Psychiatric: Reports anxiety - Endocrine Comment: pre-diabetic - Allergic/Immunologic Allergic/Immunologic: Reports as per HPI Past Medical History Past Medical History: Coronary Artery Disease (CAD), Chest Pain / Angina, Heart Failure, Hypertension, Osteoarthritis (OA), Pneumonia, Renal Disease Additional Past Medical History / Comment(s): SVT, sinus pauses, anemia, chronic kidney disease, blood clots-pt stated took xarelto for awhile, arthritis bilateral knees, anemia, constipation History of Any Multi-Drug Resistant Organisms: VRE Date of last positivie culture/infection: 05/03/20 MDRO Source:: VRE URINE Past Surgical History: Section, Hernia Repair Additional Past Surgical History / Comment(s): adominal hernia repair with mesh, cysts removed from stomach Past Anesthesia/Blood Transfusion Reactions: No Reported Reaction Additional Past Anesthesia/Blood Transfusion Reaction / Comment(s): Pt has received blood in the past without reaction. Past Psychological History: Anxiety Additional Psychological History / Comment(s): Pt takes ativan when needed for anxiety and states it helps. Pt lives at home with her 2 children. is independant. nopets. Smoking Status: Never smoker Past Alcohol Use History: None Reported Past Drug Use History: None Reported - Past Family History Father Family Medical History: Congestive Heart Failure (CHF) Additional Family Medical History / Comment(s): Father from CHF. Mother Family Medical History: Cancer, Hypertension, Sleep Apnea/CPAP/BIPAP Additional Family Medical History / Comment(s): Mother has had cancer removed from ear/head. Medications and Allergies Home Medications Medication Instructions Recorded Confirmed Type Baclofen [Lioresal] 10 mg PO DAILY PRN 11/05/17 12/09/20 History Budesonide/Formoterol Fumarate 2 puff INHALATION RT-BID 11/05/17 12/09/20 History [Symbicort 160-4.5 Mcg Inhaler] Omeprazole 20 mg PO DAILY 11/05/17 12/09/20 History minoxidiL [Minoxidil] 10 mg PO DAILY 11/05/17 12/09/20 History Aspirin 81 mg PO DAILY #100 chew 01/09/18 12/09/20 Rx Ibuprofen [Motrin] 800 mg PO DAILY PRN 01/04/19 12/09/20 History LORazepam [Ativan] 2 mg PO TID PRN 01/04/19 12/09/20 History Metoprolol Tartrate [Lopressor] 100 mg PO BID 01/04/19 12/09/20 History Spironolactone [Aldactone] 25 mg PO DAILY 01/04/19 12/09/20 History cloNIDine HCL 0.3 mg PO TID 01/04/19 12/09/20 History hydrALAZINE HCL [Apresoline] 100 mg PO TID 01/04/19 12/09/20 History Albuterol Sulfate [Ventolin HFA] 1 - 2 puff INHALATION RT-QID PRN 05/03/20 12/09/20 History Ferrous Sulfate [Iron (65 MG 325 mg PO TID-W/MEALS #90 tab 05/07/20 12/09/20 Rx Elemental)] Allergies Allergy/AdvReac Type Severity Reaction Status Date / Time No Known Allergies Allergy Verified 12/09/20 22:34 Surgical - Exam Vital Signs Temp Pulse Resp BP Pulse Ox 97.9 F 110 H 26 H 151/95 91 L 12/09/20 17:42 12/09/20 17:42 12/09/20 17:42 12/09/20 17:42 12/09/20 17:42 BMI 56.1 - General moderate distress, obese - Eyes normal ocular movement - ENT normal nares - Neck no masses, trachea midline - Respiratory decreased breath sounds at bases - Cardiovascular Heart Sounds: normal: S1, S2 - Abdomen Abdomen: soft - Integumentary Bilateral lower extremity edema, left upper extremity edema Skin thickening left breast near the nipple areolar region; ? [place] - Neurologic no disoriented, no combative - Psychiatric oriented to time, oriented to person, oriented to place, speech is normal, memory intact Breast examination: Inspection: Bilateral grade 3 ptosis, left breast skin thickening and engorgement over the right breast Palpation: Right breast: Multi-positional exam fibrocystic changes no dominant masses or nodules of concern Right axilla: No adenopathy of concern Left breast: Multi-positional exam fullness and thickening near the nipple areolar complex, no discrete dominant mass Left axilla: No discrete adenopathy Extremities: Bilateral ankle edema Left upper extremity swollen, forearm on the right is 31 cm on the left 39 cm, Results - Labs 12/09/20 18:12 12/09/20 18:12 Abnormal Lab Results - Last 24 Hours (Table) 12/09/20 12/10/20 12/10/20 Range/Units 21:10 00:32 11:38 POC Glucose (mg/dL) 109 H (75-99) mg/dL Troponin I 0.054 H* 0.049 H* (0.000-0.034) ng/mL 12/10/20 Range/Units 16:23 POC Glucose (mg/dL) 107 H (75-99) mg/dL Troponin I (0.000-0.034) ng/mL Assessment and Plan Assessment: Impression: 1. Morbid obesity/pickwickian syndrome 2. Recent exacerbation Congestive heart failure with bilateral lower extremity edema 3. Decreased mobility/arthritis 4. Sleep apnea 5. Enlarged left breast with findings of questionable [place]. No underlying breast mass was seen radiographically in 2018 Concern over inflammatory breast cancer at this time, despite negative biopsy in 2018 6. Left upper extremity swelling concern for underlying malignancy Plan: 1. Mammogram 2. Ultrasound left axilla 3. Medical management of medical conditions 4. Thank you for this consultation, I will follow with you.
[2020-12-11] MEDS: cloNIDine HCL 0.1 MG TAB PO SCH ×2 (05:27→20:15)
[2020-12-11] MEDS: hydrALAZINE HCL 50 MG TAB PO SCH ×2 (05:27→20:15)
[2020-12-11 06:13] LABS: Glucose,Whole Blood 109 mg/dL (75-99)
[2020-12-11] MEDS: PANTOPRAZOLE 40 MG TABLET PO SCH (06:41)
[2020-12-11] MEDS: FERROUS SULFATE 325 MG TAB PO SCH ×3 (06:41→16:28)
[2020-12-11] MEDS: SYMBICORT 160-4.5 MCG INHALER INHALATION SCH ×2 (08:38→20:24)
[2020-12-11] MEDS: SPIRONOLACTONE 25 MG TAB PO SCH (09:31)
[2020-12-11] MEDS: ASPIRIN 81 MG PO SCH (09:32)
[2020-12-11] MEDS: METOPROLOL TARTRATE 50 MG TAB PO SCH ×2 (09:32→20:16)
[2020-12-11] MEDS: FUROSEMIDE 10 MG/ML 4 ML VIAL IV SCH ×2 (09:32→20:16)
--- NOTE | 2020-12-11 09:51 | ECHOF ---
Referral Reason:LVF MEASUREMENTS -------- HEIGHT: 170.2 cm WEIGHT: 162.4 kg BP: 145/77 RVIDd: 3.7 cm (< 3.3) IVSd: 2.3 cm (0.6 - 1.1) LVIDd: 4.3 cm (3.9 - 5.3) LVPWd: 2.2 cm (0.6 - 1.1) IVSs: 2.9 cm LVIDs: 2.9 cm LVPWs: 2.4 cm LA Diam: 5.1 cm (2.7 - 3.8) Ao Diam: 3.6 cm (2.0 - 3.7) AV Cusp: 2.0 cm (1.5 - 2.6) MV EXCURSION: 14.013 mm (> 18.000) MV EF SLOPE: 25 mm/s (70 - 150) EPSS: 1.2 cm AV maxP.10 mmHg AV meanP.41 mmHg RAP: 5.00 mmHg RVSP: 75.88 mmHg FINDINGS -------- Resting tachycardia (HR>100bpm). This was a technically difficult study with suboptimal views. The left ventricular size is normal. There is severe concentric left ventricular hypertrophy. Ove rall left ventricular systolic function is normal with, an EF between 65 - 70 %. The right ventricle is mild to moderately enlarged. The left atrium is markedly dilated. The right atrium was not well visualized. Lumason used The aortic valve was not well visualized. Peak/mean gradient across the Aortic Valve is 20.10mmHg / 8.41mmHg. The mitral valve was not well visualized. [id number] tricuspid regurgitation present. There is severe pulmonary hypertension. The rig ht ventricular systolic pressure, as measured by Doppler, is 75.88mmHg. The pulmonic valve was not well visualized. The aortic root size is normal. IVC Not well visulized. There is a small, generalized pericardial effusion present. CONCLUSIONS -------- 1. Resting tachycardia (HR>100bpm). 2. This was a technically difficult study with suboptimal views. 3. The left ventricular size is normal. 4. There is severe concentric left ventricular hypertrophy. 5. Overall left ventricular systolic function is normal with, an EF between 65 - 70 %. 6. The right ventricle is mild to moderately enlarged. 7. The left atrium is markedly dilated. 8. Lumason used 9. Peak/mean gradient across the Aortic Valve is 20.10mmHg / 8.41mmHg. 10. [id number] tricuspid regurgitation present. 11. There is severe pulmonary hypertension. 12. The right ventricular systolic pressure, as measured by Doppler, is 75.88mmHg. 13. There is a small, generalized pericardial effusion present. MILL CONTROLLER: Amber Galvin RDCS
[2020-12-11 11:15] LABS: Calcium 8.6 mg/dL (8.4-10.2)
[2020-12-11 11:17] LABS: Magnesium 1.8 mg/dL (1.6-2.3); Potassium 5.3 mmol/L (3.5-5.1)
[2020-12-11 12:00] LABS: Glucose,Whole Blood 131 mg/dL (75-99)
--- NOTE | 2020-12-11 12:50 | P.PN ---
Subjective Progress Note Date: 12/11/20 History of present illness: This is a 45-year-old female patient of Dr. Hoyt with a past medical history s ignificant for hypertension, hypertensive heart disease, chronic diastolic heart failure, history of sinus pauses secondary to sleep apnea, chronic kidney disease, chronic anemia, morbid obesity and obstructive sleep apnea. Echocardiogram from April 2020 reveals EF of greater than 70% with severe concentric left hypertrophy, trace mitral regurgitation, mild tricuspid regurgitation, moderate pulmonary hypertension. Patient states that she has had significant swelling in her left arm, shortness of breath and lower extremity edema that is going on for about 2 weeks. She states she saw Dr. Stanford in the office and he did some testing at that time. She continued to have shortness of breath and is not on diuretics at home. Patient is on Aldactone. Patient presented to [facility] emergency center for evaluation. She was afebrile, heart rate 110, respiratory rate 26, blood pressure 151/95 and pulse ox 91% on 2 L nasal cannula. Hemoglobin 10.3. Sodium 144, potassium 4.3, chloride 112, CO2 22, BUN 52 and creatinine 1.56. Liver function tests were normal. Troponin 0.049. Lactic acid 1.2. D-dimer 0.7. Urinalysis positive for blood. Patient received doses of IV Lasix 40 mg and continued on 40 mg twice daily. Patient was admitted to the cardiac stepdown unit. cardiac monitor has been sinus tachycardia of 167 bpm when up to the commode chair. No pauses have been noted. Patient thinks that she has been urinating well overnight. She denies palpitations. Chest x-ray reveals pulmonary congestion slightly increased compared to old exam. Mild heart failure is possible. CTA of the chest revealed no evidence of pulmonary embolism. Moderate cardiomegaly with pericardial effusion. Interstitial pulmonary infiltrates. No pleural fluid seen to suggest heart failure. Heart failure not excluded. Left upper extremity ultrasound negative for DVT. 12/11: Patient was asking nurses morning about Entresto. Patient does not require Entresto at this time and she is hypotensive. She did have a run of 7 V. tach this morning that was asymptomatic. Her blood pressure has been in the systolic 60s during the night. Currently blood pressure 125/67, heart rate in 80s and 90s. Pulse ox 99% on 2 L. Echocardiogram reveals EF of 65-70% with severe concentric left hypertrophy, mild to moderate tricuspid regurgitation, severe pulmonary hypertension. Generalized pericardial effusion. Patient has been seen by breast/general surgery regarding left breast thickening and left upper extremity edema. BUN 28, creatinine 1.9 and potassium 5.3. Physical examination: Gen: This is a super morbid obese -[place] female. She is resting in bed and appears to be in no acute distress. HEENT: Head is atraumatic, normocephalic. Pupils equal, round. Sclerae is anicteric. NECK: Supple. No JVD. No lymphadenopathy. No thyromegaly. LUNGS: Diminished bilateral bases. No wheezes. HEART: Regular rate and rhythm. Systolic murmur. ABDOMEN: Morbidly obese. Soft. Bowel sounds are present. No masses. No tenderness. EXTREMITIES: 1+ pedal edema. No calf tenderness. 3+ edema to the left hand/arm NEUROLOGICAL: Patient is awake, alert and oriented x3. Cranial nerves 2 through 12 are grossly intact. Assessment: Acute on chronic diastolic heart failure Hypertension, hypertensive cardiovascular disease Morbid obesity with obstructive sleep apnea Sinus tachycardia Left upper extremity edema, DVT ruled out Chronic kidney disease Generalized pericardial effusion Plan: Continue Lasix 40 mg IV every 12 hours Monitor I&O, daily weights, renal function and electrolytes Continue Lopressor 100 mg twice daily and minoxidil 10 mg daily, Aldactone 25 mg daily Decrease frequency of hydralazine 100 mg and clonidine 0.3 mg to twice daily Surgical consult for left upper extremity edema, abnormal breast finding Further recommendations to follow based upon clinical course Thank you kindly for this consultation. Nurse practitioner note has been reviewed, I agree with documented findings and plan of care. Patient was seen and examined. Objective - Vital Signs Vital signs: Vital Signs Temp 98.3 F 12/11/20 09:11 Pulse 95 12/11/20 09:11 Resp 20 12/11/20 09:11 BP 125/67 12/11/20 09:11 Pulse Ox 99 12/11/20 09:11 Intake & Output 12/10/20 12/11/20 12/11/20 17:59 06:59 18:59 Intake Total Output Total Balance Weight Intake: Oral Output: Urine Other: Voiding Method # Voids - Labs CBC & Chem 7: 12/09/20 18:12 12/11/20 10:45 Labs: Abnormal Lab Results - Last 24 Hours (Table) 12/10/20 12/10/20 12/10/20 Range/Units 11:38 16:23 20:31 POC Glucose (mg/dL) 109 H 107 H 120 H (75-99) mg/dL 12/11/20 Range/Units 06:08 POC Glucose (mg/dL) 109 H (75-99) mg/dL
[2020-12-11 16:58] LABS: Glucose,Whole Blood 158 mg/dL (75-99)
[2020-12-12] MEDS: HYDROcodone/APAP 5-325MG 1 EACH TAB PO PRN (03:41)
[2020-12-12] MEDS: FERROUS SULFATE 325 MG TAB PO SCH ×3 (06:32→16:56)
[2020-12-12] MEDS: PANTOPRAZOLE 40 MG TABLET PO SCH (06:32)
[2020-12-12] MEDS: FUROSEMIDE 10 MG/ML 4 ML VIAL IV SCH ×2 (08:26→21:09)
[2020-12-12] MEDS: ASPIRIN 81 MG PO SCH (08:27)
[2020-12-12] MEDS: SPIRONOLACTONE 25 MG TAB PO SCH (08:27)
[2020-12-12] MEDS: METOPROLOL TARTRATE 50 MG TAB PO SCH ×2 (08:27→21:09)
[2020-12-12] MEDS: SYMBICORT 160-4.5 MCG INHALER INHALATION SCH ×2 (08:30→19:58)
[2020-12-12 12:00] LABS: Glucose,Whole Blood 111 mg/dL (75-99)
--- NOTE | 2020-12-12 13:10 | P.PN ---
Subjective Progress Note Date: 12/12/20 HISTORY OF PRESENT ILLNESS: This is a 45-year-old female patient of Dr. Hoyt with a past medical history significant for hypertension, hypertensive heart disease, chronic diastolic heart failure, history of sinus pauses secondary to sleep apnea, chronic kidney disease, chronic anemia, morbid obesity and obstructive sleep apnea. Echocardiogram from April 2020 reveals EF of greater than 70% with severe concentric left hypertrophy, trace mitral regurgitation, mild tricuspid reg urgitation, moderate pulmonary hypertension. Patient states that she has had significant swelling in her left arm, shortness of breath and lower extremity edema that is going on for about 2 weeks. She states she saw Dr. Stanford in the office and he did some testing at that time. She continued to have shortness of breath and is not on diuretics at home. Patient is on Aldactone. Patient presented to [facility] emergency center for evaluation. She was afebrile, heart rate 110, respiratory rate 26, blood pressure 151/95 and pulse ox 91% on 2 L nasal cannula. Hemoglobin 10.3. Sodium 144, potassium 4.3, chloride 112, CO2 22, BUN 52 and creatinine 1.56. Liver function tests were normal. Troponin 0.049. Lactic acid 1.2. D-dimer 0.7. Urinalysis positive for blood. Patient received doses of IV Lasix 40 mg and continued on 40 mg twice daily. Patient was admitted to the cardiac stepdown unit. lunchroom monitor has been sinus tachycardia of 167 bpm when up to the commode chair. No pauses have been noted. Patient thinks that she has been urinating well overnight. She denies palpitations. Chest x-ray reveals pulmonary congestion slightly increased compared to old e xam. Mild heart failure is possible. CTA of the chest revealed no evidence of pulmonary embolism. Moderate cardiomegaly with pericardial effusion. Interstitial pulmonary infiltrates. No pleural fluid seen to suggest heart failure. Heart failure not excluded. Left upper extremity ultrasound negative for DVT. 12/11: Patient was asking nurses morning about Entresto. Patient does not require Entresto at this time and she is hypotensive. She did have a run of 7 V. tach this morning that was asymptomatic. Her blood pressure has been in the systolic 60s during the night. Currently blood pressure 125/67, heart rate in 80s and 90s. Pulse ox 99% on 2 L. Echocardiogram reveals EF of 65-70% with severe concentric left hypertrophy, mild to moderate tricuspid regurgitation, severe pulmonary hypertension. Generalized pericardial effusion. Patient has been seen by breast/general surgery regarding left breast thickening and left upper extremity edema. BUN 28, creatinine 1.9 and potassium 5.3. 12/12/2020 Patient examined this morning at the bedside. She denies chest pain or pressure. She reports mild shortness of breath. She is on 2 L nasal cannula. Patient does report she wears oxygen at home. Per nursing, the patients heart rate was down in the 40s while she was sleeping. Patient reports a history of sleep apnea and states that she usually wears a CPAP at home. PHYSICAL EXAM: VITAL SIGNS: Reviewed. GENERAL: Well-developed in no acute distress. NECK: Supple. No JVD or thyromegaly LUNGS: Respirations even and unlabored. Lungs diminished bilaterally. HEART: Regular rate and rhythm. S1 and S2 heard. EXTREMITIES: Normal range of motion. No clubbing or cyanosis. Peripheral pulses intact. 1+ bilateral lower extremity edema. Patient with significant swelling of left arm and hand. ASSESSMENT: Acute exacerbation of chronic diastolic heart failure, ejection fraction 65-70% Hypertension Obstructive sleep apnea, with CPAP use at home Left upper extremity edema, DVT ruled out Chronic kidney disease Generalized pericardial effusion PLAN: Continue current cardiac medications Continue IV Lasix Monitor kidney function Vascular and surgery following for left upper extremity edema Spoke with nursing regarding obtaining CPAP while in the hospital as patient does not think anyone can bring her machine in from home Further recommendations pending patient course Nurse practitioner note has been reviewed by physician. Signing provider agrees with the documented findings, assessment, and plan of care. Objective - Vital Signs Vital signs: Vital Signs Temp 99.2 F 12/12/20 08:20 Pulse 72 12/12/20 08:20 Resp 18 12/12/20 08:20 BP 128/69 12/12/20 08:20 Pulse Ox 99 12/12/20 08:20 Intake & Output 12/11/20 12/12/20 12/12/20 18:59 06:59 18:59 Intake Total 772 480 240 Output Total 725 500 Balance 47 -20 240 Weight 165.3 kg Intake: Oral 772 480 240 Output: Urine 725 500 Other: Voiding Method Bedside Commode Bedside Commode Bedside Commode # Bowel Movements 1 - Labs CBC & Chem 7: 12/09/20 18:12 12/11/20 10:45 Labs: Abnormal Lab Results - Last 24 Hours (Table) 12/11/20 12/12/20 Range/Units 16:57 11:56 POC Glucose (mg/dL) 158 H 111 H (75-99) mg/dL
[2020-12-12] MEDS: HEPARIN SODIUM,PORCINE 5,000 UNIT/ML 1 ML VIAL SQ SCH ×2 (13:26→16:31)
[2020-12-12] MEDS: cloNIDine HCL 0.1 MG TAB PO SCH ×3 (13:27→23:27)
[2020-12-12] MEDS: hydrALAZINE HCL 50 MG TAB PO SCH ×3 (13:27→23:27)
--- NOTE | 2020-12-12 15:30 | P.GSCN ---
History of Present Illness Consult date: 12/12/20 Reason for Consult: Left upper extremity swelling Requesting physician: Kevin Stanford History of present illness: The patient is a pleasant 45-year-old morbidly obese -[place] female patient with a past medical history significant for DVT, coronary artery disease and congestive heart failure who presented to the emergency department for evaluation of shortness of breath and left upper extremity swelling. The patient states she noticed her left upper extremity swelling began about one month ago, progressively getting worse. 2 weeks ago she saw her primary care physician in the office in which they did blood work and an x-ray. She was having increasing swelling to the left upper extremity and pain due to her swelling. She also has noted left breast swelling. In 2018 she reportedly had a breast biopsy that was negative and no further follow-up. She states she stopped taking her anticoagulation for her DVT due to a GI bleed. She states she is not sure why she had the DVTs, does not believe they were provoked. She denies having current shortness of breath, chest pain, Zantac, vomiting, or abdominal pain.. States her upper extremity is painful in her hand due to the swelling. She denies any limited range of motion or pain in the shoulder, any numbness or tingling. CT angiogram of chest on admission showed no evidence of pulmonary embolism. Moderate cardiomegaly with pericardial effusion. Interstitial pulmonary infiltrates. No pleural fluid seen to suggest heart failure. Heart failure not excluded. Some noted were a few paratracheal lymph nodes that measure up to 1 cm. No hilar masses. 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 Past Psychological History: Anxiety Additional Psychological History / Comment(s): Pt takes ativan when needed for anxiety and states it helps. Pt lives at home with her 2 children. is independant. nopets. Smoking Status: Never smoker Past Alcohol Use History: None Reported Past Drug Use History: None Reported - Past Family History Father Family Medical History: Congestive Heart Failure (CHF) Additional Family Medical History / Comment(s): Father from CHF. Mother Family Medical History: Cancer, Hypertension, Sleep Apnea/CPAP/BIPAP Additional Family Medical History / Comment(s): Mother has had cancer removed from ear/head. Medications and Allergies Home Medications Medication Instructions Recorded Confirmed Type Baclofen [Lioresal] 10 mg PO DAILY PRN 11/05/17 12/09/20 History Budesonide/Formoterol Fumarate 2 puff INHALATION RT-BID 11/05/17 12/09/20 History [Symbicort 160-4.5 Mcg Inhaler] Omeprazole 20 mg PO DAILY 11/05/17 12/09/20 History minoxidiL [Minoxidil] 10 mg PO DAILY 11/05/17 12/09/20 History Aspirin 81 mg PO DAILY #100 chew 01/09/18 12/09/20 Rx Ibuprofen [Motrin] 800 mg PO DAILY PRN 01/04/19 12/09/20 History LORazepam [Ativan] 2 mg PO TID PRN 01/04/19 12/09/20 History Metoprolol Tartrate [Lopressor] 100 mg PO BID 01/04/19 12/09/20 History Spironolactone [Aldactone] 25 mg PO DAILY 01/04/19 12/09/20 History cloNIDine HCL 0.3 mg PO TID 01/04/19 12/09/20 History hydrALAZINE HCL [Apresoline] 100 mg PO TID 01/04/19 12/09/20 History Albuterol Sulfate [Ventolin HFA] 1 - 2 puff INHALATION RT-QID PRN 05/03/20 12/09/20 History Ferrous Sulfate [Iron (65 MG 325 mg PO TID-W/MEALS #90 tab 05/07/20 12/09/20 Rx Elemental)] Allergies Allergy/AdvReac Type Severity Reaction Status Date / Time No Known Allergies Allergy Verified 12/09/20 22:34 Surgical - Exam Vital Signs Temp Pulse Resp BP Pulse Ox 97.9 F 110 H 26 H 151/95 91 L 12/09/20 17:42 12/09/20 17:42 12/09/20 17:42 12/09/20 17:42 12/09/20 17:42 General appearance: The patient is alert, oriented, in no acute distress. Morbidly obese. HET: Head is normocephalic and atraumatic. Neck: Supple without lymphadenopathy. Trachea midline. Heart: S1 S2. Regular rate and rhythm. Lungs: No crackles or wheezes are heard. Abdomen: Soft, nontender, nondistended with bowel sounds. Morbidly obese. No peritoneal signs. No palpable organomegaly or masses. Extremities: Normal skin color and turgor. Left upper extremity swelling from elbow to fingers. Patient has full range of motion of bilateral upper extremities. Bilateral palpable radial pulses 2/4. Neurological: No focal deficits. Strength and sensation are grossly intact. Results - Labs 12/09/20 18:12 12/11/20 10:45 Abnormal Lab Results - Last 24 Hours (Table) 12/11/20 12/11/20 12/11/20 Range/Units 10:45 11:54 16:57 Potassium 5.3 H (3.5-5.1) mmol/L Chloride 108 H (98-107) mmol/L BUN 28 H (7-17) mg/dL Creatinine 1.90 H (0.52-1.04) mg/dL Glucose 126 H (74-99) mg/dL POC Glucose (mg/dL) 131 H 158 H (75-99) mg/dL Diabetes panel 12/11/20 Range/Units 10:45 Sodium 138 (137-145) mmol/L Potassium 5.3 H (3.5-5.1) mmol/L Chloride 108 H (98-107) mmol/L Carbon Dioxide 22 (22-30) mmol/L BUN 28 H (7-17) mg/dL Creatinine 1.90 H (0.52-1.04) mg/dL Glucose 126 H (74-99) mg/dL Calcium 8.6 (8.4-10.2) mg/dL Calcium panel 12/11/20 Range/Units 10:45 Calcium 8.6 (8.4-10.2) mg/dL Pituitary panel 12/11/20 Range/Units 10:45 Sodium 138 (137-145) mmol/L Potassium 5.3 H (3.5-5.1) mmol/L Chloride 108 H (98-107) mmol/L Carbon Dioxide 22 (22-30) mmol/L BUN 28 H (7-17) mg/dL Creatinine 1.90 H (0.52-1.04) mg/dL Glucose 126 H (74-99) mg/dL Calcium 8.6 (8.4-10.2) mg/dL Adrenal panel 12/11/20 Range/Units 10:45 Sodium 138 (137-145) mmol/L Potassium 5.3 H (3.5-5.1) mmol/L Chloride 108 H (98-107) mmol/L Carbon Dioxide 22 (22-30) mmol/L BUN 28 H (7-17) mg/dL Creatinine 1.90 H (0.52-1.04) mg/dL Glucose 126 H (74-99) mg/dL Calcium 8.6 (8.4-10.2) mg/dL - Imaging Comments: CT angiogram of chest showed no evidence of pulmonary embolism. Moderate cardiomegaly with pericardial effusion. Interstitial pulmonary infiltrates. No pleural fluid seen to suggest heart failure. Heart failure not excluded. Some noted were a few paratracheal lymph nodes that measure up to 1 cm. No hilar masses. Venous Doppler of left upper extremity negative for DVT Assessment and Plan Assessment: 1. Left upper extremity swelling 2. Left breast swelling 3. Shortness of breath 3. History of congestive heart failure 4. Morbid obesity 5. History DVT in lower extremity 6. History of chronic kidney disease 7. History of chronic anemia Plan: 1. Supportive care 2. Await mammogram and axillary ultrasound as ordered per surgery 3. CTA and venous Doppler ultrasound reviewed 4. Discuss with patient to elevate left upper extremity 5. Compression stocking or Andi wrap to left upper extremity 6. Further recommendations to follow based on clinical course Thank you for this consultation and allowing us take part and plan of care of your patient during her hospital stay The impression and plan of care has been dictated as directed. I performed a history and examination of this patient, discussed the same with the dictator. I agree with the dictator's note ,documented as a scribe. Any additional findings or plans will be noted.
[2020-12-12 17:04] LABS: Glucose,Whole Blood 122 mg/dL (75-99)
--- NOTE | 2020-12-12 17:13 | PN ---
PROGRESS NOTE CHIEF COMPLAINT: Shortness of breath, congestive heart failure and edema of the left upper extremity. HISTORY OF PRESENT ILLNESS: This lady is about the same. She states that she is still short of breath. Edema in the left arm has not changed significantly. PHYSICAL EXAMINATION: Her vital signs are normal. Breath sounds are decreased and difficult to hear, and there are still rales throughout. The cardiac exam is normal. The abdomen is protuberant. Left arm is still edematous. IMPRESSION: 1. Acute on chronic congestive heart failure. 2. Morbid obesity. 3. Edema in the left arm, etiology unknown. PLAN: 1. Await opinion of consultants. 2. Continue with diuresis. MMODL / IJN: [id number] /
--- NOTE | 2020-12-12 17:55 | PN ---
PROGRESS NOTE CHIEF COMPLAINT: Congestive heart failure and edema of the left arm. HISTORY OF PRESENT ILLNESS: This lady is about the same. She states she is still pretty short of breath. The left arm edema has not gone down, either. PHYSICAL EXAMINATION: Her chest demonstrates poor breath sounds bilaterally with occasional rales. Cardiac exam is normal. The abdomen is soft and protuberant. IMPRESSION: 1. Congestive heart failure. 2. Cardiomyopathy. 3. Morbid obesity. 4. Edema of left arm. PLAN: 1. Await results of evaluations by Vascular Surgery and Cardiology. 2. Await results of echocardiogram. 3. Continue to monitor vital signs and blood sugars. 4. Continue to consider discharge plan. MMODL / IJN: [id number] /
[2020-12-12 20:34] LABS: Glucose,Whole Blood 126 mg/dL (75-99)
[2020-12-13] MEDS: HEPARIN SODIUM,PORCINE 5,000 UNIT/ML 1 ML VIAL SQ SCH ×3 (00:15→18:24)
[2020-12-13 06:46] LABS: Glucose,Whole Blood 111 mg/dL (75-99)
[2020-12-13] MEDS: FERROUS SULFATE 325 MG TAB PO SCH ×3 (07:08→18:24)
[2020-12-13] MEDS: PANTOPRAZOLE 40 MG TABLET PO SCH (07:08)
[2020-12-13 07:21] LABS: Calcium 8.6 mg/dL (8.4-10.2); Potassium 4.5 mmol/L (3.5-5.1)
--- NOTE | 2020-12-13 08:01 | USB ---
Reason for exam: clinical finding. US Breast LT Left complete breast ultrasound includes all four quadrants, the retroareolar region and axilla. Finding demonstrates edematous tissue noted mostly retroareolar but also scattered elsewhere through the breast as well. No abnormal fluid collection or discrete mass. ASSESSMENT: Incomplete: need additional imaging evaluation, BI-RAD 0 RECOMMENDATION: Follow-up diagnostic mammogram of both breasts. Manage on a clinical basis with regard to left breast edema. Patient scanned inpatient.
[2020-12-13] MEDS: SYMBICORT 160-4.5 MCG INHALER INHALATION SCH ×2 (08:11→20:38)
[2020-12-13] MEDS: METOPROLOL TARTRATE 50 MG TAB PO SCH (09:34)
[2020-12-13] MEDS: FUROSEMIDE 10 MG/ML 4 ML VIAL IV SCH (09:41)
[2020-12-13] MEDS: ASPIRIN 81 MG PO SCH (09:42)
[2020-12-13] MEDS: cloNIDine HCL 0.1 MG TAB PO SCH (09:42)
[2020-12-13] MEDS: SPIRONOLACTONE 25 MG TAB PO SCH (09:42)
[2020-12-13] MEDS: hydrALAZINE HCL 50 MG TAB PO SCH (09:42)
--- NOTE | 2020-12-13 10:24 | P.PN ---
Subjective Progress Note Date: 12/13/20 Principal diagnosis: Left upper extremity swelling Is seen and examined sitting up at the bedside. She had a compression stocking on her left upper extremity through the night. There is some noted decrease in swelling. She denies any pain to the left upper extremity. She continues to have full range of motion. She did undergo a rest ultrasound yesterday which did show edema mostly retroareolar, scattered edematous tissue throughout. Recommendation is for diagnostic mammogram. Patient is likely to be discharged home today with close follow-up. Objective - Vital Signs Vital signs: Vital Signs Temp 98.4 F 12/13/20 09:35 Pulse 98 12/13/20 09:35 Resp 16 12/13/20 09:35 BP 144/80 12/13/20 09:35 Pulse Ox 98 12/13/20 09:35 Intake & Output 12/12/20 12/13/20 12/13/20 18:59 06:59 18:59 Intake Total 896 660 220 Output Total 1500 400 Balance -604 260 220 Weight 164.7 kg Intake: Oral 896 660 220 Output: Urine 1500 400 Other: Voiding Method Bedside Commode Toilet Bedside Commode # Voids 1 1 # Bowel Movements 1 - Exam General appearance: The patient is alert, oriented, in no acute distress. HET: Head is normocephalic and atraumatic. Neck: Supple without lymphadenopathy. Trachea midline. Heart: S1 S2. Regular rate and rhythm. Lungs: Clear to auscultation Abdomen: Soft, nontender, nondistended. Extremities: Normal skin color and turgor. Left upper extremity with swelling from elbow to fingers. Patient has full range of motion. Palpable bilateral radial pulses. Neurological: No focal deficits. Strength and sensation are grossly intact. - Labs CBC & Chem 7: 12/09/20 18:12 12/13/20 06:19 Labs: Abnormal Lab Results - Last 24 Hours (Table) 12/12/20 12/12/20 12/12/20 Range/Units 11:56 17:02 20:32 Chloride (98-107) mmol/L BUN (7-17) mg/dL Creatinine (0.52-1.04) mg/dL Glucose (74-99) mg/dL POC Glucose (mg/dL) 111 H 122 H 126 H (75-99) mg/dL 12/13/20 12/13/20 Range/Units 06:19 06:42 Chloride 108 H (98-107) mmol/L BUN 33 H (7-17) mg/dL Creatinine 1.99 H (0.52-1.04) mg/dL Glucose 109 H (74-99) mg/dL POC Glucose (mg/dL) 111 H (75-99) mg/dL Assessment and Plan Assessment: 1. Left upper extremity swelling 2. Left breast swelling 3. Shortness of breath 3. History of congestive heart failure 4. Morbid obesity 5. History DVT in lower extremity 6. History of chronic kidney disease 7. History of chronic anemia Plan: 1. Supportive care 2. Breast ultrasound reviewed 3. CTA and venous Doppler ultrasound reviewed 4. Discuss with patient to elevate left upper extremity 5. Compression stocking or Andi wrap to left upper extremity 6. Recommend follow-up with vascular surgical services within the next 1-2 weeks. The recommendations based on clinical course. 7. Patient may be discharged home from a vascular surgical standpoint Thank you for this consultation and allowing us take part and plan of care of your patient during her hospital stay The impression and plan of care has been dictated as directed. I performed a history and examination of this patient, discussed the same with the dictator. I agree with the dictator's note ,documented as a scribe. Any additional findings or plans will be noted.
[2020-12-13 12:05] LABS: Glucose,Whole Blood 127 mg/dL (75-99)
--- NOTE | 2020-12-13 13:42 | P.PN ---
Subjective Progress Note Date: 12/13/20 HISTORY OF PRESENT ILLNESS: This is a 45-year-old female patient of Dr. Hoyt with a past medical history significant for hypertension, hypertensive heart disease, chronic diastolic heart failure, history of sinus pauses secondary to sleep apnea, chronic kidney disease, chronic anemia, morbid obesity and obstructive sleep apnea. Echocardiogram from April 2020 reveals EF of greater than 70% with severe concentric left hypertrophy, trace mitral regurgitation, mild tricuspid reg urgitation, moderate pulmonary hypertension. Patient states that she has had significant swelling in her left arm, shortness of breath and lower extremity edema that is going on for about 2 weeks. She states she saw Dr. Stanford in the office and he did some testing at that time. She continued to have shortness of breath and is not on diuretics at home. Patient is on Aldactone. Patient presented to [facility] emergency center for evaluation. She was afebrile, heart rate 110, respiratory rate 26, blood pressure 151/95 and pulse ox 91% on 2 L nasal cannula. Hemoglobin 10.3. Sodium 144, potassium 4.3, chloride 112, CO2 22, BUN 52 and creatinine 1.56. Liver function tests were normal. Troponin 0.049. Lactic acid 1.2. D-dimer 0.7. Urinalysis positive for blood. Patient received doses of IV Lasix 40 mg and continued on 40 mg twice daily. Patient was admitted to the cardiac stepdown unit. machine mover has been sinus tachycardia of 167 bpm when up to the commode chair. No pauses have been noted. Patient thinks that she has been urinating well overnight. She denies palpitations. Chest x-ray reveals pulmonary congestion slightly increased compared to old e xam. Mild heart failure is possible. CTA of the chest revealed no evidence of pulmonary embolism. Moderate cardiomegaly with pericardial effusion. Interstitial pulmonary infiltrates. No pleural fluid seen to suggest heart failure. Heart failure not excluded. Left upper extremity ultrasound negative for DVT. 12/11: Patient was asking nurses morning about Entresto. Patient does not require Entresto at this time and she is hypotensive. She did have a run of 7 V. tach this morning that was asymptomatic. Her blood pressure has been in the systolic 60s during the night. Currently blood pressure 125/67, heart rate in 80s and 90s. Pulse ox 99% on 2 L. Echocardiogram reveals EF of 65-70% with severe concentric left hypertrophy, mild to moderate tricuspid regurgitation, severe pulmonary hypertension. Generalized pericardial effusion. Patient has been seen by breast/general surgery regarding left breast thickening and left upper extremity edema. BUN 28, creatinine 1.9 and potassium 5.3. 12/12/2020 Patient examined this morning at the bedside. She denies chest pain or pressure. She reports mild shortness of breath. She is on 2 L nasal cannula. Patient does report she wears oxygen at home. Per nursing, the patients heart rate was down in the 40s while she was sleeping. Patient reports a history of sleep apnea and states that she usually wears a CPAP at home. 12/13/2020 Patient examined at the bedside. She denies chest pain or pressure. She curr ently denies shortness of breath. She continues to have left upper extremity swelling. Patient was bradycardic and having sinus pauses this morning while sleeping. PHYSICAL EXAM: VITAL SIGNS: Reviewed. GENERAL: Well-developed in no acute distress. NECK: Supple. No JVD or thyromegaly LUNGS: Respirations even and unlabored. Lungs diminished bilaterally. HEART: Regular rate and rhythm. S1 and S2 heard. EXTREMITIES: Normal range of motion. No clubbing or cyanosis. Peripheral pulses intact. 1+ bilateral lower extremity edema. Patient with significant swelling of left arm and hand. ASSESSMENT: Acute exacerbation of chronic diastolic heart failure, ejection fraction 65-70% Hypertension Obstructive sleep apnea, with CPAP use at home Left upper extremity edema, DVT ruled out Chronic kidney disease Generalized pericardial effusion PLAN: Continue current cardiac medications Discontinue IV Lasix. Begin oral Lasix 40 mg twice a day Change metoprolol dosing to 75 mg in the morning and 25 mg in the evening Vascular and surgery following for left upper extremity edema Spoke with nursing regarding obtaining CPAP while in the hospital as patient does not think anyone can bring her machine in from home Further recommendations pending patient course Nurse practitioner note has been reviewed by physician. Signing provider agrees with the documented findings, assessment, and plan of care. Objective - Vital Signs Vital signs: Vital Signs Temp 98.4 F 12/13/20 09:35 Pulse 98 12/13/20 09:35 Resp 16 12/13/20 09:35 BP 144/80 12/13/20 09:35 Pulse Ox 98 12/13/20 09:35 Intake & Output 12/12/20 12/13/20 12/13/20 18:59 06:59 18:59 Intake Total 896 660 220 Output Total 1500 400 Balance -604 260 220 Weight 164.7 kg Intake: Oral 896 660 220 Output: Urine 1500 400 Other: Voiding Method Bedside Commode Toilet Toilet Bedside Commode Bedside Commode # Voids 1 1 # Bowel Movements 1 - Labs CBC & Chem 7: 12/09/20 18:12 12/13/20 06:19 Labs: Abnormal Lab Results - Last 24 Hours (Table) 12/12/20 12/12/20 12/13/20 Range/Units 17:02 20:32 06:19 Chloride 108 H (98-107) mmol/L BUN 33 H (7-17) mg/dL Creatinine 1.99 H (0.52-1.04) mg/dL Glucose 109 H (74-99) mg/dL POC Glucose (mg/dL) 122 H 126 H (75-99) mg/dL 12/13/20 12/13/20 Range/Units 06:42 11:54 Chloride (98-107) mmol/L BUN (7-17) mg/dL Creatinine (0.52-1.04) mg/dL Glucose (74-99) mg/dL POC Glucose (mg/dL) 111 H 127 H (75-99) mg/dL
[2020-12-13 13:52] VITALS: BP 124/58; PULSE 117; RESP 20; TEMP 97.4
--- NOTE | 2020-12-13 15:06 | CDI ---
Documentation Clarification Form Date: 12/13/2020 02:44:35 PM From: Rama Phipps RN CCDS Admit Date: 12/12/2020 07:55:00 AM Patient Name: Ankita Sorto Visit Number: [id number] Discharge Date: ATTENTION: The Clinical Documentation Specialists (CDI) and [facility] Coding Staff appreciate your assistance in clarifying documentation. Please respond to the clarification below the line at the bottom and electronically sign. The CDI & [facility] Coding staff will review the response and follow-up if needed. Please note: Queries are made part of the Legal Health Record. If you have any questions, please contact the author of this message via ITS. Dr. Kevin Stanford Conflicting documentation has been found in the medical record. Acute on chronic systolic and diastolic heart failure is documented in the HP 12/10 Acute on chronic diastolic heart failure is documented in Cardiology Consult 12/10 History/Risk Factors: 45-year-old female presents to the ED with shortness of breath and left upper extremity edema. Medical history: Cardiomegaly with CHF. Documented in HP 12/[address] Stanford. Clinical Indicators: VS/Pulse OX 12/09: B/P 151/95; HR 110; Temp 97.9; HR 110; RR 26; SpO2 91% room air. BNP 12/09: 3780 Echocardiogram Results 12/10: EF between 65-70%; Right Ventricle mild to moderately enlarged. Left atrium is markedly dilated. Mild to moderate tricuspid regurgitation present. Severe pulmonary hypertension. Small generalized pericardial effusion present. Chest X Ray 12/09: Pulmonary congestion. Treatment: Lasix 40mg IV x1 12/09. Lasix 40mg IV Q12HR 12/10 d/c 12/13. Lasix 40mg PO BID 12/13 to present. Lopressor 100mg PO BID 12/10 d/c 12/13. Lopressor 75mg PO Daily start 12/14; Lopressor 25mg PO HS 12/13 to present. Aldactone 25mg PO Daily 12/10 to present. In your professional opinion, can you please clarify the [acuity and type] of CHF if known? Acute on Chronic Diastolic Heart Failure (preserved EF) Acute on Chronic Heart Failure Systolic & Diastolic Heart Failure Other, please specify Unable to determine (Last Revision: October 2020) MTDD
--- NOTE | 2020-12-13 15:07 | P.CNPUL ---
History of Present Illness Consult date: 12/13/20 Requesting physician: Kevin Stanford Reason for consult: obstructive sleep apnea Chief complaint: Swelling of left hand. History of sleep apnea. History of present illness: 45-year-old black female, with a history of DVT, CAD, CHF, and established sleep apnea syndrome, who presents to the emergency department with complaints of shortness of breath, and swelling of her left upper extremity. We were specifically consulted for the sleep apnea. The patient has seen my partner Dr. Catalan in the past, was diagnosed as having sleep apnea, and did receive a CPAP device, along with oxygen therapy at nighttime. She thinks her pressure setting is 12 but she is not sure. She has not been seen by Dr. Catalan in the office in follow-up for compliance. In addition, she does have complaints of left upper extremity swelling. A Doppler of the left upper extremity was negative for DVT. She denies any injury to the left upper extremity. She was admitted with a diagnosis of CHF exacerbation, left arm swelling, elevated troponin, and pericardial effusion. Review of Systems REVIEW OF SYSTEMS: CONSTITUTIONAL: [Negative.] NEUROLOGIC: [ Negative.] HEENT: [ Negative.] CARDIAC: Left arm swelling, shortness of breath. PULMONARY: Shortness of breath. GI: [Negative.] : [Negative.] RHEUMATOLOGIC: [ Negative.] IMMUNOLOGIC: [ Negative.] ENDOCRINE: [Negative. ] DERMATOLOGIC: [Negative.] Past Medical History Past Medical History: Coronary Artery Disease (CAD), Chest Pain / Angina, Heart Failure, Hypertension, Osteoarthritis (OA), Pneumonia, Renal Disease Additional Past Medical History / Comment(s): SVT, sinus pauses, anemia, chronic kidney disease, blood clots-pt stated took xarelto for awhile, arthritis bilateral knees, anemia, constipation History of Any Multi-Drug Resistant Organisms: VRE Date of last positivie culture/infection: 05/03/20 MDRO Source:: VRE URINE Past Surgical History: Section, Hernia Repair Additional Past Surgical History / Comment(s): adominal hernia repair with mesh, cysts removed from stomach Past Anesthesia/Blood Transfusion Reactions: No Reported Reaction Additional Past Anesthesia/Blood Transfusion Reaction / Comment(s): Pt has received blood in the past without reaction. Past Psychological History: Anxiety Additional Psychological History / Comment(s): Pt takes ativan when needed for anxiety and states it helps. Pt lives at home with her 2 children. is independant. nopets. Smoking Status: Never smoker Past Alcohol Use History: None Reported Past Drug Use History: None Reported - Past Family History Father Family Medical History: Congestive Heart Failure (CHF) Additional Family Medical History / Comment(s): Father from CHF. Mother Family Medical History: Cancer, Hypertension, Sleep Apnea/CPAP/BIPAP Additional Family Medical History / Comment(s): Mother has had cancer removed from ear/head. Medications and Allergies Home Medications Medication Instructions Recorded Confirmed Type Baclofen [Lioresal] 10 mg PO DAILY PRN 11/05/17 12/09/20 History Budesonide/Formoterol Fumarate 2 puff INHALATION RT-BID 11/05/17 12/09/20 Histor y [Symbicort 160-4.5 Mcg Inhaler] Omeprazole 20 mg PO DAILY 11/05/17 12/09/20 History minoxidiL [Minoxidil] 10 mg PO DAILY 11/05/17 12/09/20 History Aspirin 81 mg PO DAILY #100 chew 01/09/18 12/09/20 Rx LORazepam [Ativan] 2 mg PO TID PRN 01/04/19 12/09/20 History Metoprolol Tartrate [Lopressor] 100 mg PO BID 01/04/19 12/09/20 History Spironolactone [Aldactone] 25 mg PO DAILY 01/04/19 12/09/20 History cloNIDine HCL 0.3 mg PO TID 01/04/19 12/09/20 History hydrALAZINE HCL [Apresoline] 100 mg PO TID 01/04/19 12/09/20 History Albuterol Sulfate [Ventolin HFA] 1 - 2 puff INHALATION RT-QID PRN 05/03/20 12/09/20 History Ferrous Sulfate [Iron (65 MG 325 mg PO TID-W/MEALS #90 tab 05/07/20 12/09/20 Rx Elemental)] Furosemide [Lasix] 40 mg PO BID@0900,1600 #60 tab 12/13/20 Rx Allergies Allergy/AdvReac Type Severity Reaction Status Date / Time No Known Allergies Allergy Verified 12/09/20 22:34 Physical Exam Osteopathic Statement: *. No significant issues noted on an osteopathic structural exam other than those noted in the History and Physical/Consult. Vitals: Vital Signs Temp Pulse Resp BP Pulse Ox 12/13/20 13:45 97.4 F L 117 H 20 124/58 100 12/13/20 09:35 98.4 F 98 16 144/80 98 12/13/20 08:13 91 L 12/13/20 04:00 98 18 168/76 94 L 12/13/20 01:02 85 18 12/13/20 00:00 85 18 129/59 94 L 12/12/20 20:00 98.4 F 93 18 145/72 95 12/12/20 16:00 98.2 F 91 18 118/77 98 Intake and Output 12/12/20 12/13/20 12/13/20 22:59 06:59 14:59 Intake Total 896 220 Output Total 1500 400 Balance -604 -400 220 Intake: Oral 896 220 Output: Urine 1500 400 Other: Voiding Method Toilet Toilet Toilet Bedside Commode Bedside Commode Bedside Commode # Voids 1 # Bowel Movements 1 Weight 164.7 kg No acute distress, oriented 3. Patient currently on 2 L nasal cannula. HEENT examination is grossly unremarkable. Mucous membranes are moist. No oral lesions. Neck supple. Full range of motion. No adenopathy thyromegaly or neck vein distention. Cardiovascular examination reveals regular rhythm rate. S1-S2 normal. No S3 or S4. No discernible murmur noted. Heart sounds are distant. Heart rate is 98 bpm. Lungs reveal mostly clear breath sounds. A few scattered bibasilar crackles are noted. No wheezes or rhonchi. Abdomen soft bowel sounds are heard. No masses or tenderness. Extremities are intact. No cyanosis clubbing. Lower extremity edema is noted, and significant swelling is noted to the left upper extremity, including the arm, forearm, wrist and hand. Skin is without rash or lesion. Neurologic examination is brief but nonfocal. Results - Laboratory Findings CBC and BMP: 12/09/20 18:12 12/13/20 06:19 PT/INR, D-dimer PT 10.4 sec (9.0-12.0) 12/09/20 18:12 INR 1.0 (<1.2) 12/09/20 18:12 D-Dimer 0.70 mg/L FEU (<0.60) H 12/09/20 18:15 Abnormal lab findings: Abnormal Labs 12/09/20 12/09/20 12/09/20 18:12 18:12 18:12 Hgb 10.3 L MCV 76.3 L MCH 21.3 L MCHC 27.9 L RDW 17.4 H Lymphocytes # 0.8 L D-Dimer Potassium Chloride 112 H BUN 22 H Creatinine 1.56 H Glucose 100 H POC Glucose (mg/dL) Troponin I 0.049 H* Urine Appearance Urine Protein Urine Blood Urine RBC Urine Mucus 12/09/20 12/09/20 12/09/20 18:15 19:51 21:10 Hgb MCV MCH MCHC RDW Lymphocytes # D-Dimer 0.70 H Potassium Chloride BUN Creatinine Glucose POC Glucose (mg/dL) Troponin I 0.054 H* Urine Appearance Cloudy H Urine Protein 3+ H Urine Blood Large H Urine RBC >182 H Urine Mucus Rare H 12/10/20 12/10/20 12/10/20 00:32 11:38 16:23 Hgb MCV MCH MCHC RDW Lymphocytes # D-Dimer Potassium Chloride BUN Creatinine Glucose POC Glucose (mg/dL) 109 H 107 H Troponin I 0.049 H* Urine Appearance Urine Protein Urine Blood Urine RBC Urine Mucus 12/10/20 12/11/20 12/11/20 20:31 06:08 10:45 Hgb MCV MCH MCHC RDW Lymphocytes # D-Dimer Potassium 5.3 H Chloride 108 H BUN 28 H Creatinine 1.90 H Glucose 126 H POC Glucose (mg/dL) 120 H 109 H Troponin I Urine Appearance Urine Protein Urine Blood Urine RBC Urine Mucus 12/11/20 12/11/20 12/12/20 11:54 16:57 11:56 Hgb MCV MCH MCHC RDW Lymphocytes # D-Dimer Potassium Chloride BUN Creatinine Glucose POC Glucose (mg/dL) 131 H 158 H 111 H Troponin I Urine Appearance Urine Protein Urine Blood Urine RBC Urine Mucus 12/12/20 12/12/20 12/13/20 17:02 20:32 06:19 Hgb MCV MCH MCHC RDW Lymphocytes # D-Dimer Potassium Chloride 108 H BUN 33 H Creatinine 1.99 H Glucose 109 H POC Glucose (mg/dL) 122 H 126 H Troponin I Urine Appearance Urine Protein Urine Blood Urine RBC Urine Mucus 12/13/20 12/13/20 06:42 11:54 Hgb MCV MCH MCHC RDW Lymphocytes # D-Dimer Potassium Chloride BUN Creatinine Glucose POC Glucose (mg/dL) 111 H 127 H Troponin I Urine Appearance Urine Protein Urine Blood Urine RBC Urine Mucus - Diagnostic Findings Chest x-ray: image reviewed CT scan - chest: image reviewed Assessment and Plan Assessment: History of obstructive sleep apnea syndrome, patient currently on oxygen and CPAP at home. Patient does need follow up with Dr. Catalan for compliance and effectiveness of the device. CHF. Morbid obesity. Left upper extremity edema, of unclear etiology, with negative Doppler. History of coronary artery disease. History of hypertension. History of DJD. History of pneumonia. History of chronic kidney disease. History of SVT. History of vancomycin-resistant enterococcal urinary tract infection. Multiple other medical problems and comorbidities. Plan: Plan dated 12/13/2020. The patient will need follow up with Dr. Catalan, and she understands that she needs to bring her device into the office when she comes in for her appointment. From my perspective, not much more to add at this time. The patient's Doppler of the left upper extremity was negative for DVT. She has significant swelling of the left upper extremity. She states that she is a lifelong nonsmoker, and yet she is on albuterol and Symbicort. She denies a prior history of lung issues. We'll try and sort that out and she comes into the office. Additional recommendations and suggestions are forthcoming. I did ask her to bring her CPAP device into the hospital so she could use it here, if she is to be in the hospital for many more days. Time with Patient: Greater than 30
[2020-12-13] MEDS ORDERED: FUROSEMIDE 40 MG TAB PO SCH (16:00)
[2020-12-13 16:57] LABS: Glucose,Whole Blood 99 mg/dL (75-99)
[2020-12-13] MEDS ORDERED: METOPROLOL TARTRATE 25 MG TAB PO SCH (21:00)
[2020-12-14] MEDS ORDERED: METOPROLOL TARTRATE 25 MG TAB PO SCH (09:00)
--- NOTE | 2020-12-14 11:08 | MISC ---
MISCELLANOUS REPORT QUERY: Acute on chronic diastolic heart failure. MMODL / IJN: [id number] /
--- NOTE | 2020-12-20 11:02 | DS ---
DISCHARGE SUMMARY DATE OF SERVICE: 12/13/2020 CHIEF COMPLAINT: Shortness of breath and swelling in the left arm. HISTORY OF PRESENT ILLNESS AND PHYSICAL EXAMINATION: Details of this lady's history and physical can be found in the initial workup. LABORATORY STUDIES: While she was in a hospital she had laboratory studies, details of which can be found in the laboratory section of her chart. COURSE IN THE HOSPITAL: After admission, she was placed on bedrest, started on intravenous fluids and diuresis. She was seen and followed by Cardiology. She was also seen by breast surgery because of progressive lymphedema in the left arm and left breast with underlying suspicion of neoplasm, but never able to be documented. Heart failure improved and she was doing well and it was felt that she could go home on the and she will go home on her usual activity, diet and be followed up in several days. She will follow up with breast surgery as well. She was encouraged to become serious about losing weight. FINAL DIAGNOSES: 1. Acute on chronic diastolic congestive heart failure. 2. Cardiomyopathy. 3. Morbid obesity. 4. Hypertension. 5. Insulin-dependent diabetes mellitus. 6. Lymphedema left arm. 7. Possible underlying breast cancer on the left. OPERATIONS: None. CONSULTATIONS: Breast Surgery and Cardiology. She is improved. MMODL / IJN: [id number] /
== END 2020-12-13 20:20 | disposition home or self-care (01) | DRG 291 ==
LOC: EC 17:40 → 3SCARD 20:56 → OBSVTOIN 12-12 07:55
PROVIDERS: ADMIT Family Medicine; ATTEND Family Medicine
DX: I13.0 Hypertensive heart and chronic kidney disease with heart failure and stage 1 through stage 4 chronic kidney disease, or unspecified chronic kidney disease (principal); I50.43 Acute on chronic combined systolic (congestive) and diastolic (congestive) heart failure; E66.2 Morbid (severe) obesity with alveolar hypoventilation; I31.3 Pericardial effusion (noninflammatory); I47.2 Ventricular tachycardia; N18.9 Chronic kidney disease, unspecified; I42.9 Cardiomyopathy, unspecified; Z86.718 Personal history of other venous thrombosis and embolism; Z79.01 Long term (current) use of anticoagulants; I25.10 Atherosclerotic heart disease of native coronary artery without angina pectoris; M19.90 Unspecified osteoarthritis, unspecified site; D64.9 Anemia, unspecified; Z99.81 Dependence on supplemental oxygen; F41.9 Anxiety disorder, unspecified; I07.1 Rheumatic tricuspid insufficiency; I27.20 Pulmonary hypertension, unspecified; M17.0 Bilateral primary osteoarthritis of knee; Z20.822 Contact with and (suspected) exposure to COVID-19; N64.59 Other signs and symptoms in breast; Z79.82 Long term (current) use of aspirin; Z79.51 Long term (current) use of inhaled steroids; Z79.899 Other long term (current) drug therapy; Z80.0 Family history of malignant neoplasm of digestive organs; Z80.3 Family history of malignant neoplasm of breast; Z82.49 Family history of ischemic heart disease and other diseases of the circulatory system; Z87.01 Personal history of pneumonia (recurrent)
CPT/HCPCS: 36415; 71046; 71275; 80048; 80053; 81001; 83605; 83735; 83880; 84484; 85025; 85379; 85610; 85730; 87635; 93005; 93306; 94640; 94760; 96361; 96374; 99285

== ENCOUNTER 2020-12-18 10:32 | Inpatient (IN) | payer OTHER ==
[2020-12-18] MEDS ORDERED: FUROSEMIDE 10 MG/ML 4 ML VIAL IV STA ×2 (10:35→13:30)
[2020-12-18] MEDS ORDERED: methylPREDNISolone SOD SUCCI 125 MG/2 ML VIAL IV STA (10:35)
[2020-12-18] MEDS ORDERED: IPRATROPIUM-ALBUTEROL 3 ML NEB INHALATION STA ×2 (10:35→13:30)
[2020-12-18] MEDS ORDERED: NITROGLYCERIN OINT 1 INCH/GM PACKET TOPICAL STA ×2 (10:35→15:06)
[2020-12-18 10:51] LABS: ABG Base Excess -4.8 mmol/L; ABG HCO3 23 mmol/L (21-25); ABG Oxygen Saturation 99.8 % (94-97); ABG PCO2 59 mmHg (35-45); ABG PH 7.21 (7.35-7.45); ABG PO2 245 mmHg (83-108); ABG TCO2 25 mmol/L (19-24); Allen Test Performed? Yes
[2020-12-18] MEDS ORDERED: LORazepam 2 MG/ML INJ IV STA ×2 (11:07→12:12)
[2020-12-18 11:26] LABS: Albumin 4.4 g/dL (3.5-5.0); Calcium 9.4 mg/dL (8.4-10.2); Magnesium 2.1 mg/dL (1.6-2.3); Potassium 4.8 mmol/L (3.5-5.1); Total Bilirubin 0.5 mg/dL (0.2-1.3); Total Protein 8.9 g/dL (6.3-8.2)
--- NOTE | 2020-12-18 11:31 | XR ---
EXAMINATION TYPE: XR chest 1V portable DATE OF EXAM: 12/18/2020 COMPARISON: 12/09/2020 INDICATION: Dyspnea TECHNIQUE: Single frontal view of the chest is obtained. FINDINGS: The heart size is prominent. The pulmonary vasculature is prominent. Diffuse increased lung markings are present in the mid and lower lung [place] bilaterally. Air broncho grams are present. Correlate for pulmonary edema consider atypical pneumonia IMPRESSION: 1. Clinical correlation recommended for congestive heart failure. Atypical pneumonia should also be c onsidered.
[2020-12-18 11:43] LABS: Anisocytosis Slight; HCT 41.8 % (34.0-46.0); HGB 12.1 gm/dL (11.4-16.0); Hypochromasia Marked; MCH 22.3 pg (25.0-35.0); MCHC 28.8 g/dL (31.0-37.0); MCV 77.3 fL (80.0-100.0); Mean Platelet Volume 9.8; Microcytosis Slight; Platelet Count 287 k/uL (150-450); RBC 5.41 m/uL (3.80-5.40); RDW 18.1 % (11.5-15.5); WBC 6.5 k/uL (3.8-10.6)
[2020-12-18 12:08] LABS: Basophils # (M) 0.07 k/uL (0-0.2); Lymphocytes # (M) 1.11 k/uL (1.0-4.8); Monocytes # (M) 0.13 k/uL (0-1.0); Neutrophils % (M) 80 %; Nucleated Red Blood Cells 0 /100 WBC (0-0); Total Cells Counted 100
--- NOTE | 2020-12-18 13:51 | ED ---
SOB HPI - General Chief Complaint: Shortness of Breath Stated Complaint: CYNTHIA Time Seen by Provider: 12/18/20 10:32 Source: patient, EMS, RN notes reviewed, old records reviewed Mode of arrival: EMS Limitations: no limitations - History of Present Illness Initial Comments: This is a 45-year-old female history of CHF who was recently admitted to this hospital for treatment of dyspnea was back today by EMS with complaints the onset shortness breath yesterday. Progressively worse per paramedics she sounded as if she was in congestive heart failure. She did have peripheral edema. No reports of chest pain fevers chills sweats. Apparently her home keanu godoy is not working at this time. MD Complaint: shortness of breath - Related Data Home Medications Medication Instructions Recorded Confirmed Baclofen [Lioresal] 10 mg PO DAILY PRN 11/05/17 12/18/20 Budesonide/Formoterol Fumarate 2 puff INHALATION RT-BID 11/05/17 12/18/20 [Symbicort 160-4.5 Mcg Inhaler] Omeprazole 20 mg PO DAILY 11/05/17 12/18/20 minoxidiL [Minoxidil] 10 mg PO DAILY 11/05/17 12/18/20 LORazepam [Ativan] 2 mg PO TID PRN 01/04/19 12/18/20 Metoprolol Tartrate [Lopressor] 100 mg PO BID 01/04/19 12/18/20 Spironolactone [Aldactone] 25 mg PO DAILY 01/04/19 12/18/20 cloNIDine HCL 0.3 mg PO TID 01/04/19 12/18/20 hydrALAZINE HCL [Apresoline] 100 mg PO TID 01/04/19 12/18/20 Albuterol Sulfate [Ventolin HFA] 1 - 2 puff INHALATION RT-QID PRN 05/03/20 12/18/20 Ferrous Sulfate [Iron (65 MG 325 mg PO AC-TID 12/18/20 12/18/20 Elemental)] Previous Rx's Medication Instructions Recorded Aspirin 81 mg PO DAILY #100 chew 01/09/18 Furosemide [Lasix] 40 mg PO BID@0900,1600 #60 tab 12/13/20 Allergies Allergy/AdvReac Type Severity Reaction Status Date / Time No Known Allergies Allergy Verified 12/09/20 22:34 Review of Systems ROS Statement: Those systems with pertinent positive or pertinent negative responses have been documented in the HPI. ROS Other: All systems not noted in ROS Statement are negative. Past Medical History Past Medical History: Coronary Artery Disease (CAD), Chest Pain / Angina, Heart Failure, Hypertension, Osteoarthritis (OA), Pneumonia, Renal Disease Additional Past Medical History / Comment(s): SVT, sinus pauses, anemia, chronic kidney disease, blood clots-pt stated took xarelto for awhile, arthritis bilateral knees, anemia, constipation History of Any Multi-Drug Resistant Organisms: VRE Date of last positivie culture/infection: 05/03/20 MDRO Source:: VRE URINE Past Surgical History: Section, Hernia Repair Additional Past Surgical History / Comment(s): adominal hernia repair with mesh, cysts removed from stomach Past Anesthesia/Blood Transfusion Reactions: No Reported Reaction Additional Past Anesthesia/Blood Transfusion Reaction / Comment(s): Pt has received blood in the past without reaction. Past Psychological History: Anxiety Smoking Status: Never smoker Past Alcohol Use History: None Reported Past Drug Use History: None Reported - Past Family History Father Family Medical History: Congestive Heart Failure (CHF) Additional Family Medical History / Comment(s): Father from CHF. Mother Family Medical History: Cancer, Hypertension, Sleep Apnea/CPAP/BIPAP Additional Family Medical History / Comment(s): Mother has had cancer removed from ear/head. General Exam - General Exam Comments Initial Comments: This a well-developed morbidly obese female who is awake alert in obvious respiratory distress with audible wheezing. Started from Limitations: no limitations General appearance: alert, anxious, in distress Head exam: Present: atraumatic, normocephalic, normal inspection Eye exam: Present: normal appearance, PERRL, EOMI. Absent: scleral icterus, conjunctival injection, periorbital swelling ENT exam: Present: normal exam, mucous membranes moist Neck exam: Present: normal inspection. Absent: tenderness, meningismus, lymphadenopathy Respiratory exam: Present: wheezes, chest wall tenderness, accessory muscle use, decreased breath sounds. Absent: respiratory distress, rales, rhonchi, stridor Cardiovascular Exam: Present: normal rhythm, tachycardia, normal heart sounds. Absent: systolic murmur, diastolic murmur, rubs, gallop, clicks GI/Abdominal exam: Present: soft, normal bowel sounds. Absent: distended, tend erness, guarding, rebound, rigid Extremities exam: Present: full ROM, normal capillary refill, other (She does demonstrate edema to the left upper extremity.). Absent: tenderness, pedal edema, joint swelling, calf tenderness Back exam: Present: normal inspection Neurological exam: Present: alert, oriented X3, CN II-XII intact Psychiatric exam: Present: normal affect, normal mood Skin exam: Present: warm, dry, intact, normal color. Absent: rash Course Vital Signs 12/18/20 12/18/20 12/18/20 10:33 11:15 11:25 Temperature 98.5 F Pulse Rate 156 H 140 H Respiratory 40 H Rate Blood Pressure 195/177 105/80 O2 Sat by Pulse 79 L Oximetry 12/18/20 12/18/20 12/18/20 11:32 11:36 11:45 Temperature Pulse Rate 150 H 150 H 156 H Respiratory 38 H 40 H Rate Blood Pressure 104/75 O2 Sat by Pulse 95 96 Oximetry 12/18/20 12/18/20 12/18/20 12:25 12:31 13:22 Temperature Pulse Rate 135 H 123 H 133 H Respiratory 40 H 34 H 36 H Rate Blood Pressure 199/122 236/138 O2 Sat by Pulse 99 100 99 Oximetry 12/18/20 12/18/20 12/18/20 13:41 13:46 13:58 Temperature Pulse Rate 124 H 123 H 117 H Respiratory 32 H Rate Blood Pressure O2 Sat by Pulse 98 Oximetry 12/18/20 14:07 Temperature Pulse Rate 105 H Respiratory 28 H Rate Blood Pressure 208/144 O2 Sat by Pulse 100 Oximetry - Reevaluation(s) Reevaluation #1: 12/18/20 15:03 Reevaluation patient on multiple occasions demonstrated that she was improving after treatment rendered including BiPAP. Reevaluation #2: 12/18/20 15:04 History of blood pressure continued be elevated she was given additional medication. Medical Decision Making - Medical Decision Making Patient did present with complaints of shortness of breath and did respond to aggressive therapy short of oral tracheal intubation. Patient did respond to IV Lasix and Nitropaste as well as updrafts with BiPAP. Patient blood pressure was elevated. I did discuss the case with Dr. Stanford the patient was admitted with consultation to cardiology of note after discussion with Dr. Hien Blas 19 tested come back positive. - Lab Data Result diagrams: 12/18/20 11:00 12/18/20 11:00 Lab Results 12/18/20 12/18/20 12/18/20 Range/Units 10:48 11:00 11:00 WBC 6.5 (3.8-10.6) k/uL RBC 5.41 H (3.80-5.40) m/uL Hgb 12.1 (11.4-16.0) gm/dL Hct 41.8 (34.0-46.0) % MCV 77.3 L (80.0-100.0) fL MCH 22.3 L (25.0-35.0) pg MCHC 28.8 L (31.0-37.0) g/dL RDW 18.1 H (11.5-15.5) % Plt Count 287 (150-450) k/uL MPV 9.8 Neutrophils % (Manual) 80 % Lymphocytes % (Manual) 17 % Monocytes % (Manual) 2 % Basophils % (Manual) 1 % Neutrophils # (Manual) 5.20 (1.3-7.7) k/uL Lymphocytes # (Manual) 1.11 (1.0-4.8) k/uL Monocytes # (Manual) 0.13 (0-1.0) k/uL Basophils # (Manual) 0.07 (0-0.2) k/uL Nucleated RBCs 0 (0-0) /100 WBC Manual Slide Review Performed Hypochromasia Marked Anisocytosis Slight Microcytosis Slight PT (9.0-12.0) sec INR (<1.2) APTT (22.0-30.0) sec Sample Site RRAD ABG pH 7.21 L (7.35-7.45) ABG pCO2 59 H (35-45) mmHg ABG pO2 245 H (83-108) mmHg ABG HCO3 23 (21-25) mmol/L ABG Total CO2 25 H (19-24) mmol/L ABG O2 Saturation 99.8 H (94-97) % ABG Base Excess -4.8 mmol/L Brijesh Test Yes FiO2 100 % Sodium 139 (137-145) mmol/L Potassium 4.8 (3.5-5.1) mmol/L Chloride 106 (98-107) mmol/L Carbon Dioxide 19 L (22-30) mmol/L Anion Gap 14 mmol/L BUN 31 H (7-17) mg/dL Creatinine 1.88 H (0.52-1.04) mg/dL Est GFR (CKD-EPI)AfAm 36 (>60 ml/min/1.73 sqM) Est GFR (CKD-EPI)NonAf 32 (>60 ml/min/1.73 sqM) Glucose 207 H (74-99) mg/dL Lactic Ac Sepsis Rflx Plasma Lactic Acid Antony (0.7-2.0) mmol/L Calcium 9.4 (8.4-10.2) mg/dL Magnesium 2.1 (1.6-2.3) mg/dL Total Bilirubin 0.5 (0.2-1.3) mg/dL AST 24 (14-36) U/L ALT 14 (4-34) U/L Alkaline Phosphatase 85 (38-126) U/L Creatine Kinase 53 (30-135) U/L Troponin I (0.000-0.034) ng/mL NT-Pro-B Natriuret Pep pg/mL Total Protein 8.9 H (6.3-8.2) g/dL Albumin 4.4 (3.5-5.0) g/dL Coronavirus (PCR) (Not Detectd) 12/18/20 12/18/20 12/18/20 Range/Units 11:00 11:00 11:00 WBC (3.8-10.6) k/uL RBC (3.80-5.40) m/uL Hgb (11.4-16.0) gm/dL Hct (34.0-46.0) % MCV (80.0-100.0) fL MCH (25.0-35.0) pg MCHC (31.0-37.0) g/dL RDW (11.5-15.5) % Plt Count (150-450) k/uL MPV Neutrophils % (Manual) % Lymphocytes % (Manual) % Monocytes % (Manual) % Basophils % (Manual) % Neutrophils # (Manual) (1.3-7.7) k/uL Lymphocytes # (Manual) (1.0-4.8) k/uL Monocytes # (Manual) (0-1.0) k/uL Basophils # (Manual) (0-0.2) k/uL Nucleated RBCs (0-0) /100 WBC Manual Slide Review Hypochromasia Anisocytosis Microcytosis PT (9.0-12.0) sec INR (<1.2) APTT (22.0-30.0) sec Sample Site ABG pH (7.35-7.45) ABG pCO2 (35-45) mmHg ABG pO2 (83-108) mmHg ABG HCO3 (21-25) mmol/L ABG Total CO2 (19-24) mmol/L ABG O2 Saturation (94-97) % ABG Base Excess mmol/L Brijesh Test FiO2 % Sodium (137-145) mmol/L Potassium (3.5-5.1) mmol/L Chloride (98-107) mmol/L Carbon Dioxide (22-30) mmol/L Anion Gap mmol/L BUN (7-17) mg/dL Creatinine (0.52-1.04) mg/dL Est GFR (CKD-EPI)AfAm (>60 ml/min/1.73 sqM) Est GFR (CKD-EPI)NonAf (>60 ml/min/1.73 sqM) Glucose (74-99) mg/dL Lactic Ac Sepsis Rflx Plasma Lactic Acid Antony 2.4 H* (0.7-2.0) mmol/L Calcium (8.4-10.2) mg/dL Magnesium (1.6-2.3) mg/dL Total Bilirubin (0.2-1.3) mg/dL AST (14-36) U/L ALT (4-34) U/L Alkaline Phosphatase (38-126) U/L Creatine Kinase (30-135) U/L Troponin I 0.043 H* (0.000-0.034) ng/mL NT-Pro-B Natriuret Pep 61519 pg/mL Total Protein (6.3-8.2) g/dL Albumin (3.5-5.0) g/dL Coronavirus (PCR) (Not Detectd) 12/18/20 12/18/20 12/18/20 Range/Units 11:40 14:12 14:12 WBC (3.8-10.6) k/uL RBC (3.80-5.40) m/uL Hgb (11.4-16.0) gm/dL Hct (34.0-46.0) % MCV (80.0-100.0) fL MCH (25.0-35.0) pg MCHC (31.0-37.0) g/dL RDW (11.5-15.5) % Plt Count (150-450) k/uL MPV Neutrophils % (Manual) % Lymphocytes % (Manual) % Monocytes % (Manual) % Basophils % (Manual) % Neutrophils # (Manual) (1.3-7.7) k/uL Lymphocytes # (Manual) (1.0-4.8) k/uL Monocytes # (Manual) (0-1.0) k/uL Basophils # (Manual) (0-0.2) k/uL Nucleated RBCs (0-0) /100 WBC Manual Slide Review Hypochromasia Anisocytosis Microcytosis PT 9.8 (9.0-12.0) sec INR 0.9 (<1.2) APTT 22.8 (22.0-30.0) sec Sample Site ABG pH (7.35-7.45) ABG pCO2 (35-45) mmHg ABG pO2 (83-108) mmHg ABG HCO3 (21-25) mmol/L ABG Total CO2 (19-24) mmol/L ABG O2 Saturation (94-97) % ABG Base Excess mmol/L Brijesh Test FiO2 % Sodium (137-145) mmol/L Potassium (3.5-5.1) mmol/L Chloride (98-107) mmol/L Carbon Dioxide (22-30) mmol/L Anion Gap mmol/L BUN (7-17) mg/dL Creatinine (0.52-1.04) mg/dL Est GFR (CKD-EPI)AfAm (>60 ml/min/1.73 sqM) Est GFR (CKD-EPI)NonAf (>60 ml/min/1.73 sqM) Glucose (74-99) mg/dL Lactic Ac Sepsis Rflx Y Plasma Lactic Acid Antony (0.7-2.0) mmol/L Calcium (8.4-10.2) mg/dL Magnesium (1.6-2.3) mg/dL Total Bilirubin (0.2-1.3) mg/dL AST (14-36) U/L ALT (4-34) U/L Alkaline Phosphatase (38-126) U/L Creatine Kinase (30-135) U/L Troponin I (0.000-0.034) ng/mL NT-Pro-B Natriuret Pep pg/mL Total Protein (6.3-8.2) g/dL Albumin (3.5-5.0) g/dL Coronavirus (PCR) Detected A (Not Detectd) - EKG Data -: EKG Interpreted by Hi EKG shows normal: sinus rhythm (Sinus tachycardia rate 144 NM interval 172 QRS 82 QT since QTC 362/560 right atrial enlargement minimal. Return for LVH) - Radiology Data Radiology results: report reviewed (Imaging reviewed evidence of pulmonary edema), image reviewed Critical Care Time Critical Care Time: Yes Total Critical Care Time: 48 Critical Care Time: Total care time includes initial presentation with history physical labs x-rays. Discussed with paramedics upon arrival. Discussion with family members. Soraya loredo reevaluation the patient response to therapy. Review of old charting. Discussion with the main physician Dr. Gannon admission orders documentation the above Disposition Clinical Impression: Pulmonary edema with congestive heart failure, Acute respiratory distress, Troponin level elevated, COVID-19, Hypoxemia, Hypertension Disposition: ADMITTED IP TO THIS HOSP Condition: Fair Is patient prescribed a controlled substance at d/c from ED?: No Referrals: Kevin Stanford MD [Primary Care Provider] - 1-2 days
[2020-12-18 14:39] LABS: INR 0.9 (<1.2); Partial Thromboplastin Time 22.8 sec (22.0-30.0); Prothrombin Time 9.8 sec (9.0-12.0)
[2020-12-18] MEDS ORDERED: hydrALAZINE HCL 20 MG/ML 1 ML VIAL IVP STA (14:50)
[2020-12-18] MEDS ORDERED: IPRATROPIUM-ALBUTEROL 3 ML NEB INHALATION SCH (16:00)
[2020-12-18] MEDS: hydrALAZINE HCL 50 MG TAB PO SCH ×2 (16:01→22:52)
[2020-12-18] MEDS: cloNIDine HCL 0.1 MG TAB PO SCH ×2 (16:01→22:53)
--- NOTE | 2020-12-18 17:24 | HP ---
HISTORY AND PHYSICAL CHIEF COMPLAINT: Acute respiratory failure. HISTORY OF PRESENT ILLNESS: This is another recent admission for this 45-year-old morbidly obese -[place] female. She was just in the hospital for heart failure and went home. It is not clear what happened. It is not known if she was taking her medications or not. However, she became acutely dyspneic and was brought in by ambulance on BiPAP. There was a question about her troponin being slightly elevated at 0.043. BNP was 53986. She was also positive for COVID. Blood pressure is extremely elevated. Her pH was 7.21 with bicarb 59, and pulse ox of 245. BUN was 31, creatinine 1.88. GFR with 36. REVIEW OF SYSTEMS: She was not complaining of chest pain. She seemed to be oriented. She had no abdominal pain. She has been being assessed over the last year or two for edema in the left breast and has been followed by breast surgeon and had biopsies which have been negative. When she was in a hospital a week or so ago she came in with brawny edema in the left arm and current followup report suggests that she does have carcinoma in the left breast. It may be inflammatory. She is very noncompliant and she has been difficult to contact both for her breast issue and her congestive heart failure. Past medical history, family history and personal and social histories are all otherwise unremarkable and unchanged from her recent admitting and discharge summaries. PHYSICAL EXAMINATION: Blood pressure was initially 195/177 with a pulse of 109. Another blood pressure was taken at 227/132. Pulse is 109. In general she appeared to be very short of breath. Head, ears, eyes, nose, mouth and throat were essentially normal, but exam was limited. Neck veins cannot be assessed. Chest demonstrated poor breath sounds largely due to her size. Cardiac exam demonstrated tachycardia. The abdomen was very protuberant and nontender. Extremities were unremarkable except for the left arm which was edematous. Neurologically she was intact. She was admitted to the hospital with diagnoses: 1. Acute respiratory failure. 2. Acute pulmonary edema. 3. Chronic diastolic congestive heart failure. 4. Uncontrolled hypertension. 5. Elevated troponin. 6. COVID-19. PLAN: 1. Bedrest. 2. IV fluids. 3. Consult with Cardiology and pulmonology as well as Breast Surgery. MMODL / IJN: [id number] /
[2020-12-18] MEDS: LORazepam 1 MG TAB PO PRN (17:58)
[2020-12-18 18:09] LABS: Glucose,Whole Blood 113 mg/dL (75-99)
[2020-12-18] MEDS ORDERED: amLODIPine 5 MG TAB PO STA (18:14)
[2020-12-18] MEDS: NITROGLYCERIN SL TABS 0.4 MG TAB SUBLINGUAL PRN ×2 (18:20→18:25)
[2020-12-18] MEDS ORDERED: METOPROLOL TARTRATE 50 MG TAB PO STA (18:33)
[2020-12-18] MEDS: FERROUS SULFATE 325 MG TAB PO SCH (18:57)
[2020-12-18] MEDS: SYMBICORT 160-4.5 MCG INHALER INHALATION SCH (19:46)
[2020-12-18] MEDS: ALBUTEROL HFA INHALER INHALATION SCH ×2 (19:46→19:54)
[2020-12-18] MEDS: METOPROLOL TARTRATE 50 MG TAB PO SCH (20:41)
[2020-12-19] MEDS: FUROSEMIDE 10 MG/ML 4 ML VIAL IV SCH ×3 (00:41→17:22)
[2020-12-19] MEDS: LORazepam 1 MG TAB PO PRN ×3 (03:15→17:29)
[2020-12-19 04:11] LABS: Anisocytosis Slight; HCT 34.2 % (34.0-46.0); HGB 10.6 gm/dL (11.4-16.0); Hypochromasia Marked; MCH 22.9 pg (25.0-35.0); MCHC 30.8 g/dL (31.0-37.0); MCV 74.3 fL (80.0-100.0); Mean Platelet Volume 9.9; Microcytosis Moderate; Platelet Count 308 k/uL (150-450); RDW 18.5 % (11.5-15.5); WBC 17.2 k/uL (3.8-10.6)
[2020-12-19 04:32] LABS: Albumin 3.6 g/dL (3.5-5.0); C Reactive Protein 25.9 mg/L (<10.0); Calcium 9.4 mg/dL (8.4-10.2); Total Bilirubin 0.5 mg/dL (0.2-1.3); Total Protein 7.3 g/dL (6.3-8.2)
[2020-12-19 04:59] LABS: Lymphocytes # (M) 1.03 k/uL (1.0-4.8); Monocytes # (M) 1.03 k/uL (0-1.0); Neutrophils # (M) 15.14 k/uL (1.3-7.7); Neutrophils % (M) 88 %; Nucleated Red Blood Cells 0 /100 WBC (0-0); Total Cells Counted 100
[2020-12-19 05:00] LABS: Anisocytosis (M) Present; Polychromasia Present
[2020-12-19] MEDS ORDERED: DEXTROSE 50% SYRINGE 50 ML IVP STA (05:11)
[2020-12-19] MEDS ORDERED: INSULIN REGULAR 100 UNIT/ML VIAL IV ONE (05:11)
[2020-12-19] MEDS: ALBUTEROL HFA INHALER INHALATION SCH ×4 (07:42→20:38)
[2020-12-19] MEDS: SYMBICORT 160-4.5 MCG INHALER INHALATION SCH ×2 (07:42→20:39)
--- NOTE | 2020-12-19 08:42 | P.CNPUL ---
History of Present Illness Consult date: 12/19/20 Reason for consult: dyspnea History of present illness: This is a 45-year-old female patient, morbidly obese, who was brought into the emergency department because of worsening shortness of breath. EMS brought the patient and she was found to be progressively more short of breath at home, was having lower extremity edema and she was also in acute pulmonary edema. The patient denied having any chest pain. No fever. No chills. The initial blood work showed a white cell count of 6.7 the patient's hemoglobin was at 12.1, normal coagulation profile, normal electrolytes and the serum bicarb was 19 with a BUN of 31 and a creatinine of 1.88. The patient had a lactic acid level of 2.4. The proBNP level was 12,800 and the patient check negative for coronary artery/Covid 19 infection. The troponin was at 0.04 and subsequent level came back at 0.01. The EKG showing sinus tachycardia, right atrial enlargement, voltage criteria for LVH, and the chest x-ray is consistent with acute decompensated heart failure due to pulmonary edema. This patient is a morbidly obese -[place] female patient with a BMI of 34.9. She is known to have hypertension and hypertensive heart disease with concentric LVH, severe with chronic diastolic heart failure and chronic stage III kidney disease. She has been Hospital as in the past for an acute pulmonary edema. She has chronic anemia and obstructive sleep apnea which is severe and the patient has an AHI of 45 and the patient has been maintained on CPAP at a pr essure of 16 cm of water along with oxygen 2 L per minute nasal cannula. She has hospitalized in the past for decompensated heart failure. In the ICU, the patient was placed on a BiPAP at a pressure of 10/5 with an FiO2 of 100%. The patient's blood pressure was quite elevated. The patient is currently on clonidine 0.3 mg by mouth 3 times a day, Lasix 40 mg IV every 8 hours, hydralazine 100 mg by mouth 3 times a day, minoxidil 10 milligrams by mouth daily and the patient is also on metoprolol 100 mg by mouth twice a day and Aldactone 25 mg by mouth daily. Furthermore, the Covid 19 testing by PCR came back positive on 12/18/2020. The chest x-ray from admission is showing acute pulmonary edema. The patient is currently on a BiPAP. She is breathing comfortably. The respiratory rate is around 18. No significant 8 weeks and the patient is able to generate tidal volumes around 450 without any major difficulties. FiO2 has been weaned down to 50%. Review of Systems Constitutional: Reports daytime sleepiness, Reports fatigue, Reports lethargy, Reports weight gain Eyes: denies as per HPI, denies blurred vision, denies bulging eye, denies decreased vision, denies diplopia, denies discharge, denies dry eye, denies irritation, denies itching, denies pain, denies photophobia, denies loss of peripheral vision, denies loss of vision, denies tunnel vision/blind spots Ears: deny: decreased hearing, ear discharge, earache, tinnitus Ears, nose, mouth and throat: Reports as per HPI Breasts: absent: as per HPI, change in shape, gynecomastia, masses, nipple discharge, pain, skin changes, swelling Cardiovascular: Reports decreased exercise tolerance, Reports irregular heart beat Respiratory: Reports dyspnea, Reports sleep apnea, Reports snoring Gastrointestinal: Reports as per HPI Genitourinary: Reports as per HPI Menstruation: Reports as per HPI Musculoskeletal: Reports as per HPI Musculoskeletal: absent: ankle pain, ankle stiffness, ankle swelling Integumentary: Reports as per HPI Neurological: Reports as per HPI Psychiatric: Reports as per HPI Past Medical History Past Medical History: Coronary Artery Disease (CAD), Chest Pain / Angina, Heart Failure (Diastolic heart failure with hypertensive heart disease), Hypertension, Osteoarthritis (OA), Renal Disease (Chronic stage III kidney disease), Sleep Apnea/CPAP/BIPAP Additional Past Medical History / Comment(s): SVT, sinus pauses, anemia, chronic kidney disease, blood clots-pt stated took xarelto for awhile, arthritis bilateral knees, anemia, constipation History of Any Multi-Drug Resistant Organisms: VRE Date of last positivie culture/infection: 05/03/20 MDRO Source:: VRE URINE Past Surgical History: Section, Hernia Repair Additional Past Surgical History / Comment(s): adominal hernia repair with mesh, cysts removed from stomach Past Anesthesia/Blood Transfusion Reactions: No Reported Reaction Additional Past Anesthesia/Blood Transfusion Reaction / Comment(s): Pt has received blood in the past without reaction. Past Psychological History: Anxiety Additional Psychological History / Comment(s): Pt takes ativan when needed for anxiety and states it helps. Pt lives at home with her 2 children. is independant. [employer]. Smoking Status: Never smoker Past Alcohol Use History: None Reported Past Drug Use History: None Reported - Past Family History Father Family Medical History: Congestive Heart Failure (CHF) Additional Family Medical History / Comment(s): Father from CHF. Mother Family Medical History: Cancer, Hypertension, Sleep Apnea/CPAP/BIPAP Additional Family Medical History / Comment(s): Mother has had cancer removed from ear/head. Medications and Allergies Home Medications Medication Instructions Recorded Confirmed Type Baclofen [Lioresal] 10 mg PO DAILY PRN 11/05/17 12/18/20 History Budesonide/Formoterol Fumarate 2 puff INHALATION RT-BID 11/05/17 12/18/20 History [Symbicort 160-4.5 Mcg Inhaler] Omeprazole 20 mg PO DAILY 11/05/17 12/18/20 History minoxidiL [Minoxidil] 10 mg PO DAILY 11/05/17 12/18/20 History Aspirin 81 mg PO DAILY #100 chew 01/09/18 12/18/20 Rx LORazepam [Ativan] 2 mg PO TID PRN 01/04/19 12/18/20 History Metoprolol Tartrate [Lopressor] 100 mg PO BID 01/04/19 12/18/20 History Spironolactone [Aldactone] 25 mg PO DAILY 01/04/19 12/18/20 History cloNIDine HCL 0.3 mg PO TID 01/04/19 12/18/20 History hydrALAZINE HCL [Apresoline] 100 mg PO TID 01/04/19 12/18/20 History Albuterol Sulfate [Ventolin HFA] 1 - 2 puff INHALATION RT-QID PRN 05/03/20 12/18/20 History Furosemide [Lasix] 40 mg PO BID@0900,1600 #60 tab 12/13/20 12/18/20 Rx Ferrous Sulfate [Iron (65 MG 325 mg PO AC-TID 12/18/20 12/18/20 History Elemental)] Allergies Allergy/AdvReac Type Severity Reaction Status Date / Time No Known Allergies Allergy Verified 12/09/20 22:34 Physical Exam Vitals: Vital Signs Temp Pulse Resp BP Pulse Ox 12/19/20 07:00 73 17 157/96 98 12/19/20 06:30 71 21 162/121 98 12/19/20 06:00 71 29 H 160/104 99 12/19/20 05:30 75 30 H 147/97 97 12/19/20 05:00 67 22 152/99 99 12/19/20 04:30 69 20 161/91 99 12/19/20 04:00 98.6 F 68 23 142/85 98 12/19/20 03:30 71 24 159/100 99 12/19/20 03:00 67 17 130/82 100 12/19/20 02:30 66 21 115/65 98 12/19/20 02:00 69 23 135/72 93 L 12/19/20 01:30 67 22 163/87 98 12/19/20 01:00 67 15 96 12/19/20 00:30 71 26 H 142/96 98 12/19/20 00:00 98.8 F 72 24 148/83 99 12/18/20 23:30 77 18 191/121 99 12/18/20 23:00 79 22 196/119 100 12/18/20 22:30 84 22 173/110 98 12/18/20 22:00 89 24 203/113 96 12/18/20 21:30 95 21 211/120 94 L 12/18/20 21:00 112 H 35 H 240/161 98 12/18/20 20:30 111 H 33 H 237/155 98 12/18/20 20:00 98.7 F 100 29 H 237/148 98 12/18/20 19:45 120 H 36 H 223/136 100 12/18/20 19:30 111 H 25 H 232/147 99 12/18/20 19:15 123 H 37 H 232/144 100 12/18/20 19:00 123 H 33 H 232/134 99 12/18/20 18:45 116 H 32 H 245/153 100 12/18/20 18:30 129 H 36 H 246/139 99 12/18/20 18:15 109 H 29 H 213/149 12/18/20 18:00 109 H 29 H 227/130 100 12/18/20 17:50 105 H 33 H 227/130 99 12/18/20 17:40 123 H 23 205/141 98 12/18/20 17:30 116 H 34 H 134/123 99 12/18/20 16:28 112 H 28 H 216/131 100 12/18/20 15:58 114 H 12/18/20 15:50 109 H 32 H 214/137 100 12/18/20 15:48 111 H 12/18/20 15:12 108 H 28 H 227/137 98 12/18/20 14:07 105 H 28 H 208/144 100 12/18/20 13:58 117 H 12/18/20 13:46 123 H 12/18/20 13:41 124 H 32 H 98 12/18/20 13:22 133 H 36 H 236/138 99 12/18/20 12:31 123 H 34 H 199/122 100 12/18/20 12:25 135 H 40 H 99 12/18/20 11:45 156 H 40 H 96 12/18/20 11:36 150 H 12/18/20 11:32 150 H 38 H 104/75 95 12/18/20 11:25 140 H 12/18/20 11:15 105/80 12/18/20 10:33 98.5 F 156 H 40 H 195/177 79 L Intake and Output 12/18/20 12/19/20 12/19/20 22:59 06:59 14:59 Intake Total 530 560 10 Output Total 2800 1225 100 Balance -2270 -665 -90 Intake: IV 50 80 10 0.9 NS 50 80 10 Oral 480 480 Output: Urine 2800 1225 100 Uretheral (Colon) 1200 Other: Voiding Method Indwelling Catheter Indwelling Catheter Weight 204.117 kg 167.5 kg Morbidly obese, comfortable likely distress BMI of 74, currently on BiPAP with an FiO2 of 55%, also on BiPAP at a pressure of 15/5 cm of water. She is able to tolerate it without any major difficulties. She is resting comfortably on her left lateral side. Head exam was generally normal. There was no scleral icterus or corneal arcus. Mucous membranes were moist. Neck was supple and without jugular venous distension, thyromegaly, or carotid bruits. Carotids were easily palpable bilaterally. There was no adenopathy. Mallampati class IV and the patient has no significant neck masses. There is significant crowding of the posterior oropharynx. Lungs sounds are diminished bilaterally with diminished breath on the lung bases. No wheezes or rhonchi. Cardiac exam revealed the PMI to be normally situated and sized. The rhythm was regular and no extrasystoles were noted during several minutes of auscultation. The first and second heart sounds were normal and physiologic splitting of the second heart sound was noted. There were no murmurs, rubs, clicks, or gallops. Abdomen is obese soft nontender. Organs cannot be accurately palpated. Examination of the extremities revealed easily palpable radial, femoral and pedal pulses. There was no cyanosis, clubbing extensive edema in lower extremities bilaterally Examination of the skin revealed no evidence of significant rashes, suspicious appearing nevi or other concerning lesions. Extensive edema in lower extremities bilaterally Neurologically the patient is awake and alert and is no focal logical deficits. Results - Laboratory Findings CBC and BMP: 12/19/20 03:31 12/19/20 03:31 ABG ABG pH 7.21 (7.35-7.45) L 12/18/20 10:48 ABG pCO2 59 mmHg (35-45) H 12/18/20 10:48 ABG pO2 245 mmHg (83-108) H 12/18/20 10:48 ABG O2 Saturation 99.8 % (94-97) H 12/18/20 10:48 PT/INR, D-dimer PT 9.8 sec (9.0-12.0) 12/18/20 14:12 INR 0.9 (<1.2) 12/18/20 14:12 Abnormal lab findings: Abnormal Labs 12/18/20 12/18/20 12/18/20 10:48 11:00 11:00 WBC RBC 5.41 H Hgb MCV 77.3 L MCH 22.3 L MCHC 28.8 L RDW 18.1 H Neutrophils # (Manual) Monocytes # (Manual) ABG pH 7.21 L ABG pCO2 59 H ABG pO2 245 H ABG Total CO2 25 H ABG O2 Saturation 99.8 H Potassium Carbon Dioxide 19 L BUN 31 H Creatinine 1.88 H Glucose 207 H POC Glucose (mg/dL) Plasma Lactic Acid Antony Troponin I C-Reactive Protein Total Protein 8.9 H Coronavirus (PCR) 12/18/20 12/18/20 12/18/20 11:00 11:00 14:12 WBC RBC Hgb MCV MCH MCHC RDW Neutrophils # (Manual) Monocytes # (Manual) ABG pH ABG pCO2 ABG pO2 ABG Total CO2 ABG O2 Saturation Potassium Carbon Dioxide BUN Creatinine Glucose POC Glucose (mg/dL) Plasma Lactic Acid Antony 2.4 H* Troponin I 0.043 H* C-Reactive Protein Total Protein Coronavirus (PCR) Detected A 12/18/20 12/19/20 12/19/20 18:07 03:31 03:31 WBC 17.2 H RBC Hgb 10.6 L MCV 74.3 L MCH 22.9 L MCHC 30.8 L RDW 18.5 H Neutrophils # (Manual) 15.14 H Monocytes # (Manual) 1.03 H ABG pH ABG pCO2 ABG pO2 ABG Total CO2 ABG O2 Saturation Potassium 6.0 H Carbon Dioxide 19 L BUN 35 H Creatinine 1.75 H Glucose 101 H POC Glucose (mg/dL) 113 H Plasma Lactic Acid Antony Troponin I C-Reactive Protein 25.9 H Total Protein Coronavirus (PCR) - Diagnostic Findings Chest x-ray: image reviewed Assessment and Plan Plan: 1 acute hypoxic respiratory failure/pulmonary edema secondary to decompensated heart failure which is of a diastolic in nature, in addition to an acute cold and 19 related pneumonia which cannot be completely excluded. The patient is currently on BiPAP for respiratory support. She was started on Decadron and the patient is also on IV Lasix 40 mg every. The patient is a negative fluid balance of 2.9 L negative fluid output over the past 24 hours. Renal function from today is stable with a creatinine of 1.75. LDH has not been measured. CRP is 25. Pro-calcitonin level has not been measured. ProBNP level was significantly elevated at 12,800. 2 acute hypertensive emergency, improved and the patient's blood pressure is under better control for now. Antihypertensive medications have been resumed. 3 chronic hypertension, poorly controlled with multiple antihypertensive medication 4 chronic stage III kidney disease, likely secondary to hypertensive nephrosclerosis 5 hypertensive heart disease with diastolic heart failure and preserved LV function and previous hospitalization for decompensated heart failure 6 morbid obesity with a BMI of 74.9 7 obstructive sleep apnea maintained on CPAP on outpatient basis pressure of 16 along with oxygen 2 L 8 remote history of DVT 9 history of chronic iron deficiency anemia 10 osteoarthritis Plan Continue BiPAP at a pressure 15/5 cm of water with an FiO2 of 55%. Continue IV Lasix 40 mg every 8 hours Continue IV Solu-Medrol Despite the high FiO2 requirements, I think this is partly related to pulmonary edema and cannot completely exclude the possibility of colon cancer related pneumonia contributing to this. As such, addition of Remdesivir Monitor renal function as the patient is being diuresed check an LDH level and check a pro-calcitonin level Repeat chest x-ray in a.m. Keep the patient in ICU for now. Monitor urine output which is diuresing adequately for now. She does have obvious signs of fluid overload. Time with Patient: Greater than 30
[2020-12-19] MEDS ORDERED: amLODIPine 5 MG TAB PO SCH (09:00)
[2020-12-19] MEDS ORDERED: ASPIRIN 325 MG TAB PO SCH (09:00)
[2020-12-19] MEDS: FERROUS SULFATE 325 MG TAB PO SCH ×3 (09:09→17:22)
[2020-12-19] MEDS: ASCORBIC ACID 500 MG TAB PO SCH (09:10)
[2020-12-19] MEDS: CHOLECALCIFEROL 25 MCG (1000 IU) TABLET PO SCH (09:10)
[2020-12-19] MEDS: cloNIDine HCL 0.1 MG TAB PO SCH ×3 (09:11→22:05)
[2020-12-19] MEDS: hydrALAZINE HCL 50 MG TAB PO SCH ×3 (09:11→20:14)
[2020-12-19] MEDS: ENOXAPARIN 40 MG/0.4 ML SYRINGE SQ SCH (09:11)
[2020-12-19] MEDS: METOPROLOL TARTRATE 50 MG TAB PO SCH (09:11)
[2020-12-19] MEDS: PANTOPRAZOLE 40 MG TABLET PO SCH (09:12)
[2020-12-19] MEDS: ZINC SULFATE 220 MG CAP PO SCH (09:12)
[2020-12-19] MEDS: SPIRONOLACTONE 25 MG TAB PO SCH (09:12)
[2020-12-19] MEDS ORDERED: REMDESIVIR 200 MG in SODIUM CHLORIDE 0.9% 250 ML IVPB ONE (09:30)
--- NOTE | 2020-12-19 12:10 | P.CRDCN ---
History of Present Illness Consult date: 12/19/20 History of present illness: CHIEF COMPLAINT: CHF HISTORY OF PRESENT ILLNESS: This is a 45-year-old female with a past medical history significant for congestive heart failure, hypertension, chronic kidney disease, and obstructive sleep apnea. Patient follows in the office with Dr. Hoyt. We have been asked to see the patient in consultation for CHF. Patient was hospitalized last week secondary to CHF and left upper extremity edema. Patient presented back to the hospital with a chief complaint of shortness of breath. Patient was found to be positive for Covid 19. Patient was also found to be in congestive heart failure. Patient was started on IV Lasix and placed on a BiPAP machine. She was admitted to the hospital and is currently in the intensive care unit. DIAGNOSTICS: EKG reveals sinus tachycardia. Heart rate 144. Chest xray clinical correlation recommended for congestive heart failure. Atypical pneumonia should also be considered. Correlate for pulmonary edema. Laboratory data: WBC 17.2. Hemoglobin 10.6. Platelet count 308. Sodium 137. Potassium 6.0. BUN 35. Creatinine 1.75. Troponin 0.043. 0.012. BNP 12,800 Current home cardiac medications include minoxidil 10 mg daily, hydralazine 100 mg 3 times a day, clonidine 0.3 mg 3 times a day, Aldactone 25 mg daily, met oprolol tartrate 100 mg twice a day, Lasix 40 mg twice a day, aspirin 81 mg daily Echocardiogram completed in November 2020 reveals ejection fraction 65-70%, mild to moderate tricuspid regurgitation, and severe pulmonary hypertension REVIEW OF SYSTEMS: Thorough review of systems not completed secondary to limited evaluation/examination and due to Covid19 PHYSICAL EXAM: Thorough physical exam not completed secondary to limited evaluation/examination and due to Covid19 ASSESSMENT: Acute Covid 19 Pulmonary edema Acute exacerbation of chronic diastolic heart failure, EF 65-70% Hypertension, uncontrolled on admission Obstructive sleep apnea with CPAP use at home Chronic kidney disease History of left upper extremity edema, DVT ruled out History of bradycardia and sinus pauses, while sleeping, due to sleep apnea PLAN: No need to repeat echocardiogram as this was performed earlier this month Continue ICU management per Dr. Catalan Continue current cardiac medications Monitor blood pressure Discontinue metoprolol. Begin carvedilol 25 mg twice a day Further recommendations pending patient course Nurse practitioner note has been reviewed by physician. Signing provider agrees with the documented findings, assessment, and plan of care. Past Medical History Past Medical History: Coronary Artery Disease (CAD), Chest Pain / Angina, Heart Failure (Diastolic heart failure with hypertensive heart disease), Hypertension, Osteoarthritis (OA), Renal Disease (Chronic stage III kidney disease), Sleep Apnea/CPAP/BIPAP Additional Past Medical History / Comment(s): SVT, sinus pauses, anemia, chronic kidney disease, blood clots-pt stated took xarelto for awhile, arthritis bilateral knees, anemia, constipation History of Any Multi-Drug Resistant Organisms: VRE Date of last positivie culture/infection: 05/03/20 MDRO Source:: VRE URINE Past Surgical History: Section, Hernia Repair Additional Past Surgical History / Comment(s): adominal hernia repair with mesh, cysts removed from stomach Past Anesthesia/Blood Transfusion Reactions: No Reported Reaction Additional Past Anesthesia/Blood Transfusion Reaction / Comment(s): Pt has re ceived blood in the past without reaction. Past Psychological History: Anxiety Additional Psychological History / Comment(s): Pt takes ativan when needed for anxiety and states it helps. Pt lives at home with her 2 children. is independant. nopets. Smoking Status: Never smoker Past Alcohol Use History: None Reported Past Drug Use History: None Reported - Past Family History Father Family Medical History: Congestive Heart Failure (CHF) Additional Family Medical History / Comment(s): Father from CHF. Mother Family Medical History: Cancer, Hypertension, Sleep Apnea/CPAP/BIPAP Additional Family Medical History / Comment(s): Mother has had cancer removed from ear/head. Medications and Allergies Home Medications Medication Instructions Recorded Confirmed Type Baclofen [Lioresal] 10 mg PO DAILY PRN 11/05/17 12/18/20 History Budesonide/Formoterol Fumarate 2 puff INHALATION RT-BID 11/05/17 12/18/20 History [Symbicort 160-4.5 Mcg Inhaler] Omeprazole 20 mg PO DAILY 11/05/17 12/18/20 History minoxidiL [Minoxidil] 10 mg PO DAILY 11/05/17 12/18/20 History Aspirin 81 mg PO DAILY #100 chew 01/09/18 12/18/20 Rx LORazepam [Ativan] 2 mg PO TID PRN 01/04/19 12/18/20 History Metoprolol Tartrate [Lopressor] 100 mg PO BID 01/04/19 12/18/20 History Spironolactone [Aldactone] 25 mg PO DAILY 01/04/19 12/18/20 History cloNIDine HCL 0.3 mg PO TID 01/04/19 12/18/20 History hydrALAZINE HCL [Apresoline] 100 mg PO TID 01/04/19 12/18/20 History Albuterol Sulfate [Ventolin HFA] 1 - 2 puff INHALATION RT-QID PRN 05/03/20 12/18/20 History Furosemide [Lasix] 40 mg PO BID@0900,1600 #60 tab 12/13/20 12/18/20 Rx Ferrous Sulfate [Iron (65 MG 325 mg PO AC-TID 12/18/20 12/18/20 History Elemental)] Allergies Allergy/AdvReac Type Severity Reaction Status Date / Time No Known Allergies Allergy Verified 12/09/20 22:34 Physical Exam Vitals: Vital Signs Temp Pulse Resp BP Pulse Ox 12/19/20 07:00 73 17 157/96 98 12/19/20 06:30 71 21 162/121 98 12/19/20 06:00 71 29 H 160/104 99 12/19/20 05:30 75 30 H 147/97 97 12/19/20 05:00 67 22 152/99 99 12/19/20 04:30 69 20 161/91 99 12/19/20 04:00 98.6 F 68 23 142/85 98 12/19/20 03:30 71 24 159/100 99 12/19/20 03:00 67 17 130/82 100 12/19/20 02:30 66 21 115/65 98 12/19/20 02:00 69 23 135/72 93 L 12/19/20 01:30 67 22 163/87 98 12/19/20 01:00 67 15 96 12/19/20 00:30 71 26 H 142/96 98 12/19/20 00:00 98.8 F 72 24 148/83 99 12/18/20 23:30 77 18 191/121 99 12/18/20 23:00 79 22 196/119 100 12/18/20 22:30 84 22 173/110 98 12/18/20 22:00 89 24 203/113 96 12/18/20 21:30 95 21 211/120 94 L 12/18/20 21:00 112 H 35 H 240/161 98 12/18/20 20:30 111 H 33 H 237/155 98 12/18/20 20:00 98.7 F 100 29 H 237/148 98 12/18/20 19:45 120 H 36 H 223/136 100 12/18/20 19:30 111 H 25 H 232/147 99 12/18/20 19:15 123 H 37 H 232/144 100 12/18/20 19:00 123 H 33 H 232/134 99 12/18/20 18:45 116 H 32 H 245/153 100 12/18/20 18:30 129 H 36 H 246/139 99 12/18/20 18:15 109 H 29 H 213/149 12/18/20 18:00 109 H 29 H 227/130 100 12/18/20 17:50 105 H 33 H 227/130 99 12/18/20 17:40 123 H 23 205/141 98 12/18/20 17:30 116 H 34 H 134/123 99 12/18/20 16:28 112 H 28 H 216/131 100 12/18/20 15:58 114 H 12/18/20 15:50 109 H 32 H 214/137 100 12/18/20 15:48 111 H 12/18/20 15:12 108 H 28 H 227/137 98 12/18/20 14:07 105 H 28 H 208/144 100 12/18/20 13:58 117 H 12/18/20 13:46 123 H 12/18/20 13:41 124 H 32 H 98 12/18/20 13:22 133 H 36 H 236/138 99 12/18/20 12:31 123 H 34 H 199/122 100 12/18/20 12:25 135 H 40 H 99 12/18/20 11:45 156 H 40 H 96 12/18/20 11:36 150 H 12/18/20 11:32 150 H 38 H 104/75 95 12/18/20 11:25 140 H 12/18/20 11:15 105/80 12/18/20 10:33 98.5 F 156 H 40 H 195/177 79 L Intake and Output 12/18/20 12/19/20 12/19/20 22:59 06:59 14:59 Intake Total 530 560 10 Output Total 2800 1225 100 Balance -2270 -665 -90 Intake: IV 50 80 10 0.9 NS 50 80 10 Oral 480 480 Output: Urine 2800 1225 100 Uretheral (Colon) 1200 Other: Voiding Method Indwelling Catheter Indwelling Catheter Weight 204.117 kg 167.5 kg Results 12/19/20 03:31 12/19/20 03:31 Cardiac Enzymes 12/18/20 12/18/20 12/18/20 Range/Units 11:00 11:00 19:03 AST 24 (14-36) U/L Troponin I 0.043 H* <0.012 (0.000-0.034) ng/mL 12/19/20 Range/Units 03:31 AST 33 (14-36) U/L Troponin I (0.000-0.034) ng/mL Coagulation 12/18/20 Range/Units 14:12 PT 9.8 (9.0-12.0) sec APTT 22.8 (22.0-30.0) sec CBC 12/18/20 12/19/20 Range/Units 11:00 03:31 WBC 6.5 17.2 H (3.8-10.6) k/uL RBC 5.41 H 4.60 (3.80-5.40) m/uL Hgb 12.1 10.6 L (11.4-16.0) gm/dL Hct 41.8 34.2 (34.0-46.0) % Plt Count 287 308 (150-450) k/uL Comprehensive Metabolic Panel 12/18/20 12/19/20 Range/Units 11:00 03:31 Sodium 139 137 (137-145) mmol/L Potassium 4.8 6.0 H (3.5-5.1) mmol/L Chloride 106 107 (98-107) mmol/L Carbon Dioxide 19 L 19 L (22-30) mmol/L BUN 31 H 35 H (7-17) mg/dL Creatinine 1.88 H 1.75 H (0.52-1.04) mg/dL Glucose 207 H 101 H (74-99) mg/dL Calcium 9.4 9.4 (8.4-10.2) mg/dL AST 24 33 (14-36) U/L ALT 14 13 (4-34) U/L Alkaline Phosphatase 85 58 (38-126) U/L Total Protein 8.9 H 7.3 (6.3-8.2) g/dL Albumin 4.4 3.6 (3.5-5.0) g/dL Current Medications Generic Name Dose Route Start Last Admin Trade Name Freq PRN Reason Stop Dose Admin Albuterol Sulfate 2 puff 12/19/20 08:00 12/19/20 07:42 Albuterol Hfa Inhaler INHALATION 2 puff RT-QID FARRAH Administration Amlodipine Besylate 5 mg 12/19/20 09:00 Amlodipine 5 Mg Tab PO BID [facility] Ascorbic Acid 1,000 mg 12/19/20 09:00 Ascorbic Acid 500 Mg Tab PO DAILY [facility] Aspirin 325 mg 12/19/20 09:00 Aspirin 325 Mg Tab PO DAILY FARRAH Baclofen 10 mg 12/18/20 15:13 Baclofen 10 Mg Tab PO DAILY PRN Muscle Spasm Budesonide/Formoterol Fumarate 2 puff 12/18/20 20:00 12/19/20 07:42 Symbicort 160-4.5 Mcg Inhaler INHALATION 2 puff RT-BID [facility] Administration Cholecalciferol 125 mcg 12/19/20 09:00 Cholecalciferol 25 Mcg (1000 Iu) Tablet PO DAILY [facility] Clonidine 0.3 mg 12/18/20 16:00 12/18/20 22:53 Clonidine Hcl 0.1 Mg Tab PO 0.3 mg TID [facility] Administration Enoxaparin Sodium 40 mg 12/19/20 09:00 Enoxaparin 40 Mg/0.4 Ml Syringe SQ DAILY [facility] Ferrous Sulfate 325 mg 12/18/20 17:30 12/18/20 18:57 Ferrous Sulfate 325 Mg Tab PO Not Given AC-TID [facility] Furosemide 40 mg 12/19/20 00:00 12/19/20 00:41 Furosemide 10 Mg/Ml 4 Ml Vial IV 40 mg Q8H FARRAH Administration Hydralazine HCl 100 mg 12/18/20 16:00 12/18/20 22:52 Hydralazine Hcl 50 Mg Tab PO 100 mg TID FARRAH Administration Remdesivir 100 mg/ Sodium 250 mls @ 250 mls/hr 12/20/20 10:00 Chloride IVPB 12/23/20 10:59 DAILY@1000 [facility] Remdesivir 200 mg/ Sodium 250 mls @ 250 mls/hr 12/19/20 09:30 Chloride IVPB 12/19/20 10:29 ONCE ONE Protocol Lorazepam 2 mg 12/18/20 15:13 12/19/20 03:15 Lorazepam 1 Mg Tab PO 2 mg TID PRN Administration Anxiety Metoprolol Tartrate 100 mg 12/18/20 21:00 12/18/20 20:41 Metoprolol Tartrate 50 Mg Tab PO 100 mg BID FARRAH Administration Minoxidil 10 mg 12/19/20 09:00 Minoxidil 10 Mg Tab PO DAILY FARRAH Nitroglycerin 0.4 mg 12/18/20 18:13 12/18/20 18:25 Nitroglycerin Sl Tabs 0.4 Mg Tab SUBLINGUAL 0.4 mg Q5M PRN Administration Chest Pain Pantoprazole Sodium 40 mg 12/19/20 09:00 Pantoprazole 40 Mg Tablet PO DAILY FARRAH Spironolactone 25 mg 12/19/20 09:00 Spironolactone 25 Mg Tab PO DAILY FARRAH Zinc Sulfate 220 mg 12/19/20 09:00 Zinc Sulfate 220 Mg Cap PO DAILY FARRAH Intake and Output 12/18/20 12/19/20 12/19/20 22:59 06:59 14:59 Intake Total 530 560 10 Output Total 2800 1225 100 Balance -2270 -665 -90 Intake: IV 50 80 10 0.9 NS 50 80 10 Oral 480 480 Output: Urine 2800 1225 100 Uretheral (Colon) 1200 Other: Voiding Method Indwelling Catheter Indwelling Catheter Weight 204.117 kg 167.5 kg 12/19/20 03:31 12/19/20 03:31
[2020-12-19] MEDS ORDERED: LIDOCAINE 1% INJ 10MG/ML (20 ML MDV) ONE (13:07)
--- NOTE | 2020-12-19 14:02 | US ---
EXAMINATION TYPE: US venous doppler duplex UE LT DATE OF EXAM: 12/19/2020 COMPARISON: NONE CLINICAL HISTORY: r/o DVT. SIDE PERFORMED: Left Morbidly obese patient technically difficult study. Exam somewhat limited. Left Arm: Appears negative for DVT. Superficial basilic vein not seen due to patient inability to abd uct her arm. IMPRESSION: No evidence for DVT at this time.
--- NOTE | 2020-12-19 14:25 | XR ---
EXAMINATION TYPE: XR chest 1V confirm line [facility] DATE OF EXAM: 12/19/2020 COMPARISON: 12/18/2020 HISTORY: PICC line placement TECHNIQUE: Single frontal view of the chest is obtained. FINDINGS: The patient is rotated limiting evaluation. PICC line crosses the midline from right to left and shou ld be repositioned. Cardiomegaly with scattered infiltrates identified. IMPRESSION: 1. PICC line should be repositioned.
--- NOTE | 2020-12-19 14:26 | XR ---
EXAMINATION TYPE: XR chest 1V confirm line [facility] DATE OF EXAM: 12/19/2020 COMPARISON: Earlier in the day HISTORY: PICC line placement TECHNIQUE: Single frontal view of the chest is obtained. FINDINGS: PICC line crosses the midline from right to left and should be repositioned. IMPRESSION: 1. Repositioned PICC line
--- NOTE | 2020-12-19 14:27 | XR ---
EXAMINATION TYPE: XR chest 1V confirm line [facility] DATE OF EXAM: 12/19/2020 COMPARISON: Earlier in the day HISTORY: PICC line placement TECHNIQUE: Single frontal view of the chest is obtained. FINDINGS: PICC line is appropriately placed and overlies the SVC. Continued cardiomegaly and scattered infiltra lyndsay with pulmonary venous congestion. No evidence for pneumothorax. IMPRESSION: 1. The PICC line is appropriately placed.
--- NOTE | 2020-12-19 14:46 | IR ---
EXAMINATION TYPE: IR cvc insert >=5 years DATE OF EXAM: 12/19/2020 COMPARISON: NONE HISTORY: Covid pneumonia, needs long-term intravenous access for intravenous antibiotics therapy FINDINGS: Maximal barrier technique was utilized. Hand hygiene obtained with soap and water and alco hol-based hand rub. The skin overlying the right brachial vein was localized with ultrasound and note d to be compressible and patent by ultrasound. An ultrasound image was obtained and submitted on pat clay's chart. Sterile technique utilized with the ultrasound machine. The skin overlying was prepped and draped and Lidocaine used for local anesthesia. A skin maria fernanda was made with a scalpel. Access was gained to the vein under direct ultrasound guidance with a 21-gauge needle and a 0.018 inch wire was advanced. Access site was dilated with a peel-away sheath and the catheter tailored to length. Cat heter advanced centrally and a post procedure chest x-ray verified placement. Catheter was fixed to the skin and a sterile dressing placed. Hemostasis achieved and the catheter was aspirated and flush ed with sterile saline. The patient remained in stable condition. IMPRESSION: STATUS POST ULTRASOUND GUIDED PICC LINE PLACEMENT, READY FOR USE. THIS PROCEDURE WAS PER FORMED BY THE UNDERSIGNED.
--- NOTE | 2020-12-19 14:56 | CDI ---
Documentation Clarification Form Date: 12/19/2020 02:36:07 PM From: Rama Phipps RN CCDS Admit Date: 12/18/2020 03:11:00 PM Patient Name: Ankita Sorto Visit Number: [id number] Discharge Date: ATTENTION: The Clinical Documentation Specialists (CDI) and [facility] Coding Staff appreciate your assistance in clarifying documentation. Please respond to the clarification below the line at the bottom and electronically sign. The CDI & [facility] Coding staff will review the response and follow-up if needed. Please note: Queries are made part of the Legal Health Record. If you have any questions, please contact the author of this message via ITS. Dr. Kevin Stanford Conflicting documentation has been found in the medical record: Acute exacerbation of chronic diastolic heart failure. Documented in Cardiology consult 12/19. Chronic diastolic congestive heart failure. Documented in H&P 12/18. History/Risk Factors: 45-year-old female presents to the ED dyspnea, was brought in by ambulance on BiPAP. The patient had a recent admission for heart failure and went home. Medical History: CHF and Morbidly obese. Clinical Indicators: VSS 12/18: B/P 195/177; HR 156; Temp 98.5 F Axillary; RR 40; Spo2 79% CPAP NT-Pro-B Natriuret Pep 12/18: [id number] ECHO 12/11: Severe concentric left ventricular hypertrophy. Left ventricular systolic function is normal with, an EF between 65-70%. Mild to moderate tricuspid regurgitation present. Severe pulmonary hypertension. Treatment: 12/18 Lasix 40mg IV X1; 12/18 Lasix 40mg IV x1; 12/19 Lasix 40mg IV Q8H to current; 12/19 Coreg 12.5mg PO BID; 12/18 Lopressor 100mg PO x1; 12/18 Lopressor 100mg PO BID d/c 12/19. In your opinion, what is the most clinically appropriate diagnosis for this patient? Acute exacerbation of chronic diastolic heart failure Chronic diastolic congestive heart failure. Other explanation of clinical findings Unable to determine (no explanation for clinical findings) Documented by Dr. Stanford in progress note 12/21 Acute on chronic systolic and diastolic heart failure (Last Revision: December 2017) MTDD
[2020-12-19 14:57] LABS: Albumin 3.5 g/dL (3.5-5.0); Calcium 9.1 mg/dL (8.4-10.2); Potassium 4.7 mmol/L (3.5-5.1); Total Bilirubin 0.4 mg/dL (0.2-1.3); Total Protein 6.9 g/dL (6.3-8.2)
[2020-12-19 15:01] LABS: C Reactive Protein 24.6 mg/L (<10.0)
[2020-12-19] MEDS: carvediloL 12.5 MG TAB PO SCH (17:12)
[2020-12-19] MEDS ORDERED: carvediloL 12.5 MG TAB PO SCH (17:30)
[2020-12-19] MEDS: BACLOFEN 10 MG TAB PO PRN (21:07)
[2020-12-20] MEDS: FUROSEMIDE 10 MG/ML 4 ML VIAL IV SCH ×3 (00:14→16:38)
[2020-12-20] MEDS: LORazepam 1 MG TAB PO PRN ×2 (03:46→21:24)
[2020-12-20 04:35] LABS: Anisocytosis Slight; Basophils % (A) 0 %; Eosinophils # (A) 0.1 k/uL (0-0.7); Eosinophils % (A) 1 %; HCT 30.7 % (34.0-46.0); HGB 9.2 gm/dL (11.4-16.0); Hypochromasia Marked; Lymphocytes # (A) 0.1 k/uL (1.0-4.8); Lymphocytes % (A) 1 %; MCH 22.2 pg (25.0-35.0); MCHC 29.9 g/dL (31.0-37.0); MCV 74.5 fL (80.0-100.0); Mean Platelet Volume 7.7; Microcytosis Moderate; Monocytes # (A) 0.8 k/uL (0-1.0); Monocytes % (A) 7 %; Neutrophils # (A) 10.2 k/uL (1.3-7.7); Neutrophils % (A) 91 %; Platelet Count 242 k/uL (150-450); RBC 4.12 m/uL (3.80-5.40); RDW 18.2 % (11.5-15.5); WBC 11.3 k/uL (3.8-10.6)
[2020-12-20 04:54] LABS: Albumin 3.5 g/dL (3.5-5.0); C Reactive Protein 57.3 mg/L (<10.0); Calcium 8.9 mg/dL (8.4-10.2); Potassium 4.4 mmol/L (3.5-5.1); Total Bilirubin 0.4 mg/dL (0.2-1.3); Total Protein 6.7 g/dL (6.3-8.2)
[2020-12-20] MEDS: ALBUTEROL HFA INHALER INHALATION SCH ×4 (07:51→20:52)
[2020-12-20] MEDS: SYMBICORT 160-4.5 MCG INHALER INHALATION SCH ×2 (07:51→20:52)
--- NOTE | 2020-12-20 07:52 | P.PN ---
Subjective Progress Note Date: 12/20/20 This is a 45-year-old female patient, morbidly obese, who was brought into the emergency department because of worsening shortness of breath. EMS brought the patient and she was found to be progressively more short of breath at home, was having lower extremity edema and she was also in acute pulmonary edema. The patient denied having any chest pain. No fever. No chills. The initial blood work showed a white cell count of 6.7 the patient's hemoglobin was at 12.1, normal coagulation profile, normal electrolytes and the serum bicarb was 19 with a BUN of 31 and a creatinine of 1.88. The patient had a lactic acid level of 2.4. The proBNP level was 12,800 and the patient check negative for coronary artery/Covid 19 infection. The troponin was at 0.04 and subsequent level came back at 0.01. The EKG showing sinus tachycardia, right atrial enlargement, voltage criteria for LVH, and the chest x-ray is consistent with acute decompensated heart failure due to pulmonary edema. This patient is a morbidly obese -[place] female patient with a BMI of 34.9. She is known to have hypertension and hypertensive heart disease with concentric LVH, severe with chronic diastolic heart failure and chronic stage III kidney disease. She has been Hospital as in the past for an acute pulmonary edema. She has chronic anemia and obstructive sleep apnea which is severe and the patient has an AHI of 45 and the patient has been maintained on CPAP at a pressure of 16 cm of water along with oxygen 2 L per minute nasal cannula. She has hospitalized in the past for decompensated heart failure. In the ICU, the patient was placed on a BiPAP at a pressure of 10/5 with an FiO2 of 100%. The patient's blood pressure was quite elevated. The patient is currently on clonidine 0.3 mg by mouth 3 times a day, Lasix 40 mg IV every 8 hours, hydralazine 100 mg by mouth 3 times a day, minoxidil 10 milligrams by mouth daily and the patient is also on metoprolol 100 mg by mouth twice a day and Aldactone 25 mg by mouth daily. Furthermore, the Covid 19 testing by PCR came back positive on 12/18/2020. The chest x-ray from admission is showing acute pulmonary edema. The patient is currently on a BiPAP. She is breathing comfortably. The respiratory rate is around 18. No significant 8 weeks and the patient is able to generate tidal volumes around 450 without any major di fficulties. FiO2 has been weaned down to 50%. On today's evaluation of 12/20/2020, the patient is being seen for a follow-up. As mentioned yesterday, the patient is a morbidly obese female patient with known history of hypertensive heart disease, diastolic heart failure and she came in with acute pulmonary edema and she also was diagnosed having covid 19 pulmonary infection. The patient was quite hypertensive at the time of admission. She also has chronic stage III kidney disease. She has obstructive sleep apnea among latest comorbidities. Yesterday she was on BiPAP and was given for as per support and the patient was also given Lasix 40 mg IV every 8 hours in addition to various antihypertensive medication to control her blood pressure. The patient is also on Decadron regarding her COVID19 infection. This morning, the patient's blood pressure is under and the BP is 108/74. She is still in sinus tachycardia and she is having episodes of fever which probably is related to underlying viral infection. She is on IV Lasix 40 mg every 8 hours. The neck fluid balance has been 2.9 L negative for 12/20/2020 and the patient is headed towards another negative fluid balance for today. The renal function is stable with a creatinine of 2.3 and the BUN of 43. The d-dimer is at 0.8. A chest x-ray from today is showing Improvement in the pulmonary edema. There is still massive cardiomegaly and ongoing pulmonary vessel congestion still present. Her cardiac rhythm is sinus. She is in sinus tachycardia for now. Also, in regards to her Covid 19 infection, the patient's LDH limited at 666, CRP is a 57, pro calcitonin was 1.49 and was quite elevated indicative of an underlying bacterial infection. The white cell count is 11.3 which is lower compared to yesterday. Cultures are not available. This morning, the time of my evaluation, the patient was more lethargic as oxygen. Came off and the patient was placed back on the BiPAP. Objective - Vital Signs Vital signs: Vital Signs Temp 100.9 F H 12/20/20 06:00 Pulse 125 H 12/20/20 07:00 Resp 31 H 12/20/20 07:00 BP 108/74 12/20/20 07:00 Pulse Ox 100 03/23/21 07:00 Intake & Output 12/19/20 12/20/20 12/20/20 18:59 06:59 18:59 Intake Total 330 1000 Output Total 1470 1110 Balance -1140 -110 Weight 167.5 kg 160.2 kg Intake: IV 330 40 0.9 NS 80 40 Remdesivir 200 mg In 250 Sodium Chloride 0.9% 250 ml @ 250 mls/hr IVPB ONCE ONE Rx#:[id number] Oral 960 Output: Urine 1470 1110 Other: Voiding Method Indwelling Catheter Indwelling Catheter - Exam Morbidly obese, comfortable likely distress BMI of 74, currently on 10 L high flow oxygen all night. She is able to tolerate it without any major difficultie s. She is resting comfortably on her left lateral side. Head exam was generally normal. There was no scleral icterus or corneal arcus. Mucous membranes were moist. Neck was supple and without jugular venous distension, thyromegaly, or carotid bruits. Carotids were easily palpable bilaterally. There was no adenopathy. Mallampati class IV and the patient has no significant neck masses. There is significant crowding of the posterior oropharynx. Lungs sounds are diminished bilaterally with diminished breath on the lung bases. No wheezes or rhonchi. Cardiac exam revealed the PMI to be normally situated and sized. The rhythm was regular and no extrasystoles were noted during several minutes of auscultation. The first and second heart sounds were normal and physiologic splitting of the second heart sound was noted. There were no murmurs, rubs, clicks, or gallops. Abdomen is obese soft nontender. Organs cannot be accurately palpated. Examination of the extremities revealed easily palpable radial, femoral and pedal pulses. There was no cyanosis, clubbing extensive edema in lower extremi ties bilaterally Examination of the skin revealed no evidence of significant rashes, suspicious appearing nevi or other concerning lesions. Extensive edema in lower extremities bilaterally Neurologically the patient is awake and alert and is no focal logical deficits. - Labs CBC & Chem 7: 12/20/20 04:00 12/20/20 04:00 Labs: Abnormal Lab Results - Last 24 Hours (Table) 12/19/20 12/19/20 12/19/20 Range/Units 14:34 14:34 14:34 WBC (3.8-10.6) k/uL Hgb (11.4-16.0) gm/dL Hct (34.0-46.0) % MCV (80.0-100.0) fL MCH (25.0-35.0) pg MCHC (31.0-37.0) g/dL RDW (11.5-15.5) % Neutrophils # (1.3-7.7) k/uL Lymphocytes # (1.0-4.8) k/uL D-Dimer 0.82 H (<0.60) mg/L FEU Sodium (137-145) mmol/L BUN (7-17) mg/dL Creatinine (0.52-1.04) mg/dL Lactate Dehydrogenase (313-618) U/L C-Reactive Protein 24.6 H (<10.0) mg/L Procalcitonin 1.49 H (0.02-0.09) ng/mL 12/19/20 12/20/20 12/20/20 Range/Units 14:34 04:00 04:00 WBC 11.3 H (3.8-10.6) k/uL Hgb 9.2 L (11.4-16.0) gm/dL Hct 30.7 L (34.0-46.0) % MCV 74.5 L (80.0-100.0) fL MCH 22.2 L (25.0-35.0) pg MCHC 29.9 L (31.0-37.0) g/dL RDW 18.2 H (11.5-15.5) % Neutrophils # 10.2 H (1.3-7.7) k/uL Lymphocytes # 0.1 L (1.0-4.8) k/uL D-Dimer (<0.60) mg/L FEU Sodium 136 L (137-145) mmol/L BUN 39 H 43 H (7-17) mg/dL Creatinine 2.00 H 2.37 H (0.52-1.04) mg/dL Lactate Dehydrogenase 666 H (313-618) U/L C-Reactive Protein 57.3 H (<10.0) mg/L Procalcitonin (0.02-0.09) ng/mL 12/20/20 Range/Units 04:00 WBC (3.8-10.6) k/uL Hgb (11.4-16.0) gm/dL Hct (34.0-46.0) % MCV (80.0-100.0) fL MCH (25.0-35.0) pg MCHC (31.0-37.0) g/dL RDW (11.5-15.5) % Neutrophils # (1.3-7.7) k/uL Lymphocytes # (1.0-4.8) k/uL D-Dimer 0.80 H (<0.60) mg/L FEU Sodium (137-145) mmol/L BUN (7-17) mg/dL Creatinine (0.52-1.04) mg/dL Lactate Dehydrogenase (313-618) U/L C-Reactive Protein (<10.0) mg/L Procalcitonin (0.02-0.09) ng/mL Assessment and Plan Plan: 1 acute hypoxic respiratory failure/pulmonary edema secondary to decompensated heart failure which is of a diastolic in nature, in addition to an acute covid 19 related pneumonia which cannot be completely excluded. The patient is supported with BiPAP yesterday. This morning she is on high flow oxygen at 10 L. She is responding nicely to diuretics. The chest x-ray showing improvement in pulmonary edema. There is still massive cardiomegaly and pulmonary edema which is responding to Lasix and the patient is a negative fluid balance. Function is stable. Pro-calcitonin is probably elevated related to the renal failure. No signs of any infection. The fever is probably attributed to her underlying Covid 19 infection. 2 acute hypertensive emergency, improved and the patient's blood pressure is under better control for now. Antihypertensive medications have been resumed. 3 COVID 19 pneumonia on IV decadron and Remdesivir day #2 4 chronic stage III kidney disease, likely secondary to hypertensive nephrosclerosis 5 hypertensive heart disease with diastolic heart failure and preserved LV function and previous hospitalization for decompensated heart failure 6 morbid obesity with a BMI of 58 7 obstructive sleep apnea maintained on CPAP on outpatient basis pressure of 16 along with oxygen 2 L 8 remote history of DVT 9 history of chronic iron deficiency anemia 10 osteoarthritis blood gases will be ordered. 11 left upper extremity swelling, Doppler was negative for any DVT. Plan Continue flow oxygen at 10 L and wean it down to maintain a saturation above 90%. May use BiPAP as needed Continue IV Lasix 40 mg every 8 hours Continue IV Decadron Despite the high FiO2 requirements, I think this is partly related to pulmonary edema and cannot completely exclude the possibility of COVID 19 related pneumonia contributing to this. Chest x-rays improving and there is improvement in the pulmonary edema Monitor renal function as the patient is being diuresed check an LDH level and check a pro-calcitonin level is high probably related to underlying renal failure. No signs of any bacterial pneumonia Repeat chest x-ray in a.m. is showing improvement in the pulmonary edema Keep the patient in ICU for now. Monitor urine output which is diuresing adequately for now. She does have obvious signs of fluid overload. we'll continue to follow. Monitor fever pattern. Monitor renal function. Treat Covid infection. Optimize blood pressure. Diabetes the patient. We'll continue to follow. Patient is critically ill. The patient was monitored here in the intensive care unit. She is having some altered mentation and fluctuation in her mentation probably related to a component of CO2 narcosis. The baseline blood gases will be also value. History care evaluation that was done and more than 30 minutes. Condition is still critical. The patient will be kept in ICU for now. Time with Patient: Greater than 30
[2020-12-20] MEDS ORDERED: carvediloL 12.5 MG TAB PO SCH (08:15)
[2020-12-20] MEDS: ASCORBIC ACID 500 MG TAB PO SCH (08:28)
[2020-12-20] MEDS: cloNIDine HCL 0.1 MG TAB PO SCH (08:29)
[2020-12-20] MEDS: ASPIRIN 81 MG PO SCH ×2 (08:29→10:25)
[2020-12-20] MEDS: CHOLECALCIFEROL 25 MCG (1000 IU) TABLET PO SCH (08:29)
[2020-12-20] MEDS: ENOXAPARIN 40 MG/0.4 ML SYRINGE SQ SCH (08:30)
[2020-12-20] MEDS: PANTOPRAZOLE 40 MG TABLET PO SCH ×2 (08:30→10:25)
[2020-12-20] MEDS: SPIRONOLACTONE 25 MG TAB PO SCH ×2 (08:30→10:25)
[2020-12-20] MEDS: hydrALAZINE HCL 50 MG TAB PO SCH (08:30)
[2020-12-20] MEDS: ZINC SULFATE 220 MG CAP PO SCH ×2 (08:30→10:26)
[2020-12-20] MEDS: DEXAMETHASONE SOD PHOSPHATE 10 MG/ML 1 ML VIAL IV SCH (08:30)
[2020-12-20] MEDS: FERROUS SULFATE 325 MG TAB PO SCH ×3 (08:36→16:38)
--- NOTE | 2020-12-20 08:40 | XR ---
EXAMINATION TYPE: XR chest 1V portable DATE OF EXAM: 12/20/2020 COMPARISON: Chest x-ray dated 12/19/2020 HISTORY: Covid, congestive heart failure TECHNIQUE: Single frontal view of the chest is obtained. FINDINGS: The heart is markedly enlarged. There is prominence of interstitium, patchy airspace disea se bilaterally. No evident pneumothorax. Overlying leads, artifacts. Right-sided PICC line shows the distal tip near the cavoatrial junction level. IMPRESSION: Findings consistent with congestive heart failure, pneumonia not excluded. Cardiomegaly.
[2020-12-20] MEDS: REMDESIVIR 100 MG in SODIUM CHLORIDE 0.9% 250 ML IVPB SCH (09:07)
--- NOTE | 2020-12-20 11:08 | P.PN ---
Subjective Progress Note Date: 12/20/20 CHIEF COMPLAINT: CHF HISTORY OF PRESENT ILLNESS: 12/19/2020 This is a 45-year-old female with a past medical history significant for congestive heart failure, hypertension, chronic kidney disease, and obstructive sleep apnea. Patient follows in the office with Dr. Hoyt. We have been asked to see the patient in consultation for CHF. Patient was hospitalized last week secondary to CHF and left upper extremity edema. Patient presented back to the hospital with a chief complaint of shortness of breath. Patient was found to be positive for Covid 19. Patient was also found to be in congestive heart failure. Patient was started on IV Lasix and placed on a BiPAP machine. She was admitted to the hospital and is currently in the intensive care unit. EKG reveals sinus tachycardia. Heart rate 144. Chest xray clinical correlation recommended for congestive heart failure. Atypical pneumonia should also be considered. Correlate for pulmonary edema. Laboratory data: WBC 17.2. Hemoglobin 10.6. Platelet count 308. Sodium 137. Potassium 6.0. BUN 35. Creatinine 1.75. Troponin 0.043. 0.012. BNP 12,800 Current home cardiac medications include minoxidil 10 mg daily, hydralazine 100 mg 3 times a day, clonidine 0.3 mg 3 times a day, Aldactone 25 mg daily, metoprolol tartrate 100 mg twice a day, Lasix 40 mg twice a day, aspirin 81 mg daily Echocardiogram completed in November 2020 reveals ejection fraction 65-70%, mild to moderate tricuspid regurgitation, and severe pulmonary hypertension 12/20/2020 Patients blood pressure yesterday dropped into the 70s/40s. Patients medication regimen was adjusted. Patients blood pressure this morning is 103/68. Heart rate 90-100s. She remains on IV lasix. PHYSICAL EXAM: Thorough physical exam not completed secondary to limited evaluation/examination and due to Covid19 ASSESSMENT: Acute Covid 19 Pulmonary edema Acute exacerbation of chronic diastolic heart failure, EF 65-70% Hypertension, uncontrolled on admission Obstructive sleep apnea with CPAP use at home Chronic kidney disease History of left upper extremity edema, DVT ruled out History of bradycardia and sinus pauses, while sleeping, due to sleep apnea PLAN: Continue ICU management per Dr. Catalan Monitor blood pressure Discontinue Catapres, Hydralazine, and Minoxidil Decrease Coreg to 12.5mg BID Further recommendations pending patient course Nurse practitioner note has been reviewed by physician. Signing provider agrees with the documented findings, assessment, and plan of care. Objective - Vital Signs Vital signs: Vital Signs Temp 102.0 F H 12/20/20 09:00 Pulse 102 H 12/20/20 10:00 Resp 24 12/20/20 10:00 BP 103/68 12/20/20 10:00 Pulse Ox 100 12/20/20 10:00 Intake & Output 12/19/20 12/20/20 12/20/20 18:59 06:59 18:59 Intake Total 330 1000 270 Output Total 1470 1110 720 Balance -1140 -110 -450 Weight 167.5 kg 160.2 kg Intake: IV 330 40 270 0.9 NS 80 40 20 Remdesivir 200 mg In 250 250 Sodium Chloride 0.9% 250 ml @ 250 mls/hr IVPB ONCE ONE Rx#:[id number] Oral 960 Output: Urine 1470 1110 720 Other: Voiding Method Indwelling Catheter Indwelling Catheter Indwelling Catheter - Labs CBC & Chem 7: 12/20/20 04:00 12/20/20 04:00 Labs: Abnormal Lab Results - Last 24 Hours (Table) 12/19/20 12/19/20 12/19/20 Range/Units 14:34 14:34 14:34 WBC (3.8-10.6) k/uL Hgb (11.4-16.0) gm/dL Hct (34.0-46.0) % MCV (80.0-100.0) fL MCH (25.0-35.0) pg MCHC (31.0-37.0) g/dL RDW (11.5-15.5) % Neutrophils # (1.3-7.7) k/uL Lymphocytes # (1.0-4.8) k/uL D-Dimer 0.82 H (<0.60) mg/L FEU Sodium (137-145) mmol/L BUN (7-17) mg/dL Creatinine (0.52-1.04) mg/dL Lactate Dehydrogenase (313-618) U/L C-Reactive Protein 24.6 H (<10.0) mg/L Procalcitonin 1.49 H (0.02-0.09) ng/mL 12/19/20 12/20/20 12/20/20 Range/Units 14:34 04:00 04:00 WBC 11.3 H (3.8-10.6) k/uL Hgb 9.2 L (11.4-16.0) gm/dL Hct 30.7 L (34.0-46.0) % MCV 74.5 L (80.0-100.0) fL MCH 22.2 L (25.0-35.0) pg MCHC 29.9 L (31.0-37.0) g/dL RDW 18.2 H (11.5-15.5) % Neutrophils # 10.2 H (1.3-7.7) k/uL Lymphocytes # 0.1 L (1.0-4.8) k/uL D-Dimer (<0.60) mg/L FEU Sodium 136 L (137-145) mmol/L BUN 39 H 43 H (7-17) mg/dL Creatinine 2.00 H 2.37 H (0.52-1.04) mg/dL Lactate Dehydrogenase 666 H (313-618) U/L C-Reactive Protein 57.3 H (<10.0) mg/L Procalcitonin (0.02-0.09) ng/mL 12/20/20 Range/Units 04:00 WBC (3.8-10.6) k/uL Hgb (11.4-16.0) gm/dL Hct (34.0-46.0) % MCV (80.0-100.0) fL MCH (25.0-35.0) pg MCHC (31.0-37.0) g/dL RDW (11.5-15.5) % Neutrophils # (1.3-7.7) k/uL Lymphocytes # (1.0-4.8) k/uL D-Dimer 0.80 H (<0.60) mg/L FEU Sodium (137-145) mmol/L BUN (7-17) mg/dL Creatinine (0.52-1.04) mg/dL Lactate Dehydrogenase (313-618) U/L C-Reactive Protein (<10.0) mg/L Procalcitonin (0.02-0.09) ng/mL
--- NOTE | 2020-12-20 11:32 | CONS ---
CONSULTATION Patient is seen for renal failure REASON FOR CONSULT: Renal failure. HISTORY OF PRESENT ILLNESS: Patient is a 45-year-old female with a history of chronic kidney disease NKF stage 3 with baseline creatinine about 1.4-1.5 mg/dL. Etiology is nephrosclerosis versus underlying chronic GN. Patient has 3+ protein on urinalysis with no history of diabetes. Patient was admitted to the hospital with complaints of shortness of breath. She was found to be positive for COVID-19 PCR and is being treated for COVID-19 pneumonia. Patient is also volume overloaded and is maintained on IV Lasix. She does have obstructive sleep apnea and is maintained on BiPAP as well. Blood pressure was low with systolic in the 90s and 80s yesterday, currently improved. The patient has received IV fluid boluses. Currently she is maintained on Lasix 40 mg q.8 hours. Urine output is good. The patient had about 2.5 L of urine for 24 hours. She has an indwelling Colon catheter. PAST MEDICAL HISTORY: 1. Chronic kidney disease stage 3 previous creatinine 1.5. 2. Coronary artery disease. 3. Diastolic heart failure. 4. Hypertension. 5. Osteoarthritis. 6. Morbid obesity. 7. Obstructive sleep apnea. 8. History of VRE urinary tract infection. PAST SURGICAL HISTORY: Significant for , hernia repair, gastric surgery details not known. SOCIAL HISTORY: Negative for smoking, drug abuse or alcohol abuse. MEDICATIONS: Medications prior to admission included baclofen, minoxidil, omeprazole, Ativan, Lopressor, Aldactone, clonidine, hydralazine, Lasix, iron. ALLERGIES: None. REVIEW OF SYSTEMS: As per HPI. Other systems negative. PHYSICAL EXAMINATION: Patient is currently comfortable. She is lethargic. She has just been put back on BiPAP, not in any acute distress. Blood pressure was 114/78, heart rate 100 per minute. She is febrile at 102 degrees Fahrenheit. Examination shows edema 2+ bilateral lower extremities. Abdomen is morbidly obese. Patient is not able to follow commands at this time. However, she was able to communicate a little bit with nursing staff earlier today. LABS: Labs show sodium 136, potassium 4.4, chloride 102, BUN 43, serum creatinine 2.37, hemoglobin 9.2 g/dL. PCR for coronavirus is positive. The patient's venous Dopplers of the left arm were negative for DVT. ASSESSMENT: 1. Acute kidney injury secondary to hypotension hypoperfusion as well as underlying infection currently nonoliguric. 2. Volume overload, maintained on IV Lasix. 3. COVID-19 pneumonia. 4. Obstructive sleep apnea. 5. Acute hypoxic respiratory failure multifactorial including underlying COVID-19 pneumonia as well as congestive heart failure. 6. Chronic kidney disease, stage 3. Previous creatinine 1.5-1.6 in April of 2020. The patient did have 3+ protein. We need to quantify the proteinuria. She may have underlying chronic GN. PLAN: Continue with IV Lasix and check protein creatinine ratio. Avoid hypotension. Hold minoxidil. Repeat labs in a.m. Thank you for this consultation. Will continue to follow the patient with you during her hospitalization. MMODL / IJN: [id number] /
[2020-12-20] MEDS ORDERED: hydrALAZINE HCL 25 MG TAB PO SCH (16:00)
[2020-12-20] MEDS ORDERED: cloNIDine HCL 0.2 MG TAB PO SCH (16:00)
[2020-12-20] MEDS: carvediloL 6.25 MG TAB PO SCH ×2 (16:37→18:39)
[2020-12-20] MEDS: BACLOFEN 10 MG TAB PO PRN (18:28)
[2020-12-21] MEDS: FUROSEMIDE 10 MG/ML 4 ML VIAL IV SCH ×2 (00:25→23:10)
[2020-12-21 04:38] LABS: Albumin 3.6 g/dL (3.5-5.0); C Reactive Protein 67.6 mg/L (<10.0); Calcium 8.8 mg/dL (8.4-10.2); Total Bilirubin 0.3 mg/dL (0.2-1.3); Total Protein 7.2 g/dL (6.3-8.2)
[2020-12-21 04:48] LABS: Anisocytosis Slight; Basophils # (A) 0.1 k/uL (0-0.2); Basophils % (A) 1 %; Eosinophils % (A) 0 %; HCT 33.7 % (34.0-46.0); HGB 9.6 gm/dL (11.4-16.0); Hypochromasia Marked; Lymphocytes # (A) 0.4 k/uL (1.0-4.8); Lymphocytes % (A) 5 %; MCH 21.6 pg (25.0-35.0); MCHC 28.5 g/dL (31.0-37.0); MCV 75.7 fL (80.0-100.0); Microcytosis Slight; Monocytes # (A) 0.9 k/uL (0-1.0); Monocytes % (A) 13 %; Neutrophils % (A) 78 %; Platelet Count 247 k/uL (150-450); RBC 4.45 m/uL (3.80-5.40); RDW 17.9 % (11.5-15.5); WBC 6.4 k/uL (3.8-10.6)
[2020-12-21] MEDS: BACLOFEN 10 MG TAB PO PRN (06:57)
[2020-12-21] MEDS: carvediloL 6.25 MG TAB PO SCH ×2 (06:57→16:56)
[2020-12-21] MEDS: FERROUS SULFATE 325 MG TAB PO SCH ×3 (06:57→16:56)
--- NOTE | 2020-12-21 09:10 | P.PN ---
Subjective Progress Note Date: 12/21/20 Principal diagnosis: COVID 19 This is a 45-year-old female patient, morbidly obese, who was brought into the emergency department because of worsening shortness of breath. EMS brought the patient and she was found to be progressively more short of breath at home, was having lower extremity edema and she was also in acute pulmonary edema. The patient denied having any chest pain. No fever. No chills. The initial blood work showed a white cell count of 6.7 the patient's hemoglobin was at 12.1, normal coagulation profile, normal electrolytes and the serum bicarb was 19 with a BUN of 31 and a creatinine of 1.88. The patient had a lactic acid level of 2.4. The proBNP level was 12,800 and the patient check negative for coronary artery/Covid 19 infection. The troponin was at 0.04 and subsequent level came back at 0.01. The EKG showing sinus tachycardia, right atrial enlargement, voltage criteria for LVH, and the chest x-ray is consistent with acute decompensated heart failure due to pulmonary edema. This patient is a morbidly obese -[place] female patient with a BMI of 34.9. She is known to have hypertension and hypertensive heart disease with concentric LVH, severe with chronic diastolic heart failure and chronic stage III kidney disease. She has been Hospital as in the past for an acute pulmonary edema. She has chronic anemia and obstructive sleep apnea which is severe and the patient has an AHI of 45 and the patient has been maintained on CPAP at a pressure of 16 cm of water along with oxygen 2 L per minute nasal cannula. She has hospitalized in the past for decompensated heart failure. In the ICU, the patient was placed on a BiPAP at a pressure of 10/5 with an FiO2 of 100%. The patient's blood pressure was quite elevated. The patient is currently on clonidine 0.3 mg by mouth 3 times a day, Lasix 40 mg IV every 8 hours, hydral azine 100 mg by mouth 3 times a day, minoxidil 10 milligrams by mouth daily and the patient is also on metoprolol 100 mg by mouth twice a day and Aldactone 25 mg by mouth daily. Furthermore, the Covid 19 testing by PCR came back positive on 12/18/2020. The chest x-ray from admission is showing acute pulmonary edema. The patient is currently on a BiPAP. She is breathing comfortably. The respir atory rate is around 18. No significant 8 weeks and the patient is able to generate tidal volumes around 450 without any major difficulties. FiO2 has been weaned down to 50%. On today's evaluation of 12/20/2020, the patient is being seen for a follow-up. As mentioned yesterday, the patient is a morbidly obese female patient with known history of hypertensive heart disease, diastolic heart failure and she came in with acute pulmonary edema and she also was diagnosed having covid 19 pulmonary infection. The patient was quite hypertensive at the time of admission. She also has chronic stage III kidney disease. She has obstructive sleep apnea among latest comorbidities. Yesterday she was on BiPAP and was given for as per support and the patient was also given Lasix 40 mg IV every 8 hours in addition to various antihypertensive medication to control her blood pressure. The patient is also on Decadron regarding her COVID19 infection. This morning, the patient's blood pressure is under and the BP is 108/74. She is still in sinus tachycardia and she is having episodes of fever which probably is related to underlying viral infection. She is on IV Lasix 40 mg every 8 hours. The neck fluid balance has been 2.9 L negative for 12/20/2020 and the patient is headed towards another negative fluid balance for today. The renal function is stable with a creatinine of 2.3 and the BUN of 43. The d-dimer is at 0.8. A chest x-ray from today is showing Improvement in the pulmonary edema. There is still massive cardiomegaly and ongoing pulmonary vessel congestion still present. Her cardiac rhythm is sinus. She is in sinus tachycardia for now. Also, in regards to her Covid 19 infection, the patient's LDH limited at 666, CRP is a 57, pro calcitonin was 1.49 and was quite elevated indicative of an underlying bacterial infection. The white cell count is 11.3 which is lower compared to yesterday. Cultures are not available. This morning, the time of my evaluation, the patient was more lethargic as oxygen. Came off and the patient was placed back on the BiPAP. On 12/21/2020 patient seen in follow-up in intensive care unit, she is maintaining negative fluid balance, is a -5.190 ML fluid balance over the last 24 hours, remains on diuretics, Lasix 40 every 8 hours IV push. Maintenance IV fluids is 0.9 normal saline at 20 ML per hour, no nausea vomiting or diarrhea, patient is tolerating oral intake. She is confused and at times restless, CAM- ICU is positive. Overall she denies any acute distress, complains of being chilled, she continues to have fevers, she is 10 1F this morning. However despite that her oxygen demand has improved, she is currently off BiPAP support, she is down to 8 L on nasal cannula and her pulse ox is between 92-97%, lung sounds overall are diminished, with bibasilar crackles, today's chest x-ray shows improvement in terms of aeration and interstitial edema. There are still some patchy airspace opacities bilaterally. No complaints of chest pain, no phlegm production, no hemoptysis. His labs have been reviewed, showing white blood cell count is 6.4, hemoglobin is 9.6, lymphocyte count is 0.4, yesterday's d-dimer was 0.80, and patient is on prophylactic doses of Lovenox 40 mg once daily, her renal profile slightly improved, B1 is 44, creatinine is 2.16, CO2 is 31, the rest of the electrolytes were unremarkable. LDH not repeated today, on yesterday's labs they have slightly trended up up to 666 from 599 the day befo re, CRP on today's labs is also trending up, at 67.6 from 57.3 on yesterday's labs. procalcitonin level is 1.49, however her renal profile is abnormal which can elevate pro calcitonin levels Objective - Vital Signs Vital signs: Vital Signs Temp 101.0 F H 12/21/20 04:00 Pulse 115 H 12/21/20 07:00 Resp 16 12/21/20 07:00 BP 144/89 12/21/20 07:00 Pulse Ox 97 12/21/20 07:00 Intake & Output 12/20/20 12/21/20 12/21/20 18:59 06:59 18:59 Intake Total 350 120 10 Output Total 2560 3100 300 Balance -9130 -9290 -290 Weight 152 kg Intake: IV 350 120 10 0.9 NS 100 120 10 Remdesivir 200 mg In 250 Sodium Chloride 0.9% 250 ml @ 250 mls/hr IVPB ONCE ONE Rx#:[id number] Output: Urine 2560 3100 300 Other: Voiding Method Indwelling Catheter Indwelling Catheter - Exam GENERAL EXAM: 45-year-old morbidly obese -[place] female, currently on 8 L of oxygen during the up in the recliner, awake and alert, oriented to person and place, disoriented to time, tachypneic but in no apparent distress, pulse ox is 98% on 8 L high flow oxygen HEAD: Normocephalic/atraumatic. EYES: Normal reaction of pupils, equal size. Conjunctiva pink, sclera white. NOSE: Clear with pink turbinates. THROAT: No erythema or exudates. NECK: No masses, no JVD, no thyroid enlargement, no adenopathy. CHEST: No chest wall deformity. Symmetrical expansion. LUNGS: Diminished air entry bilaterally, with bibasilar crackles CVS: Regular rate and rhythm, normal S1 and S2, no gallops, no murmurs, no rubs ABDOMEN: Soft, nontender. No hepatosplenomegaly, normal bowel sounds, no guarding or rigidity. EXTREMITIES: No clubbing, nonpitting 1+ lower extremity edema, improving from yesterday's exam no cyanosis, 2+ pulses and upper and lower extremities. MUSCULOSKELETAL: Muscle strength and tone normal. SPINE: No scoliosis or deformity SKIN: No rashes CENTRAL NERVOUS SYSTEM: Alert and oriented -2. No focal deficits, tone is normal in all 4 extremities. PSYCHIATRIC: Alert and oriented -3. Appropriate affect. Intact judgment and insight. - Labs CBC & Chem 7: 12/21/20 04:00 12/21/20 04:00 Labs: Abnormal Lab Results - Last 24 Hours (Table) 12/21/20 12/21/20 Range/Units 04:00 04:00 Hgb 9.6 L (11.4-16.0) gm/dL Hct 33.7 L (34.0-46.0) % MCV 75.7 L (80.0-100.0) fL MCH 21.6 L (25.0-35.0) pg MCHC 28.5 L (31.0-37.0) g/dL RDW 17.9 H (11.5-15.5) % Lymphocytes # 0.4 L (1.0-4.8) k/uL Carbon Dioxide 31 H (22-30) mmol/L BUN 44 H (7-17) mg/dL Creatinine 2.16 H (0.52-1.04) mg/dL AST 96 H (14-36) U/L C-Reactive Protein 67.6 H (<10.0) mg/L Assessment and Plan Plan: Assessment: 1 acute hypoxic respiratory failure/pulmonary edema secondary to decompensated heart failure which is of a diastolic in nature, in addition to an acute covid 19 related pneumonia which cannot be completely excluded. The patient is supported with BiPAP yesterday. This morning she is on high flow oxygen at 10 L. She is responding nicely to diuretics. The chest x-ray showing improvement in pulmonary edema. There is still massive cardiomegaly and pulmonary edema which is responding to Lasix and the patient is a negative fluid balance. Function is stable. Pro-calcitonin is probably elevated related to the renal failure. No signs of any infection. The fever is probably attributed to her underlying Covid 19 infection. 2 acute hypertensive emergency, improved and the patient's blood pressure is under better control for now. Antihypertensive medications have been resumed. 3 COVID 19 pneumonia on IV decadron and Remdesivir day #3 4 chronic stage III kidney disease, likely secondary to hypertensive nephrosclerosis 5 hypertensive heart disease with diastolic heart failure and preserved LV function and previous hospitalization for decompensated heart failure 6 morbid obesity with a BMI of 58 7 obstructive sleep apnea maintained on CPAP on outpatient basis pressure of 16 along with oxygen 2 L 8 remote history of DVT 9 history of chronic iron deficiency anemia 10 osteoarthritis blood gases will be ordered. 11 left upper extremity swelling, Doppler was negative for any DVT. 12 acute metabolic encephalopathy, delirium, multifactorial related to Covid 19, acute on chronic hypoxic respiratory failure, acute kidney injury Plan: Continue current medical treatment, today is day 3 of Remdesivir, continue current dose of Decadron, Lovenox, today's labs have been reviewed, chest x-ray has been reviewed, shows improvement in aeration bilaterally with residual patchy airspace disease, but improvement in interstitial edema was noted. Continue with diuretics for another 24 hours, will however cut back to dose to 40 mg every 12 hours. Continue daily labs, we'll get follow-up inflammatory markers, follow-up d-dimer, continue weaning FiO2, BiPAP support as needed and at bedtime, overall fluid volume status is improving, generalized edema and nausea and edema have improved. Patient is confused, avoid benzodiazepines and anti-cholinergics, we will give the patient Haldol 2 mg every 4 hours as needed for confusion and agitation and restlessness. Maintaining safety precautions, we'll continue to closely monitor in the ICU. I performed a history & physical examination of the patient and discussed their management with my nurse practitioner, Anna Dickens. I reviewed the nurse practitioner's note and agree with the documented findings and plan of care. Lung sounds are positive for dim with throughout the lung [place]. The findings and the impression was discussed with the patient. I attest to the docume ntation by the nurse practitioner. Time with Patient: Greater than 30
[2020-12-21] MEDS ORDERED: HALOPERIDOL LACTATE 5 MG/ML 1 ML VIAL IVP PRN (09:12)
[2020-12-21] MEDS: SYMBICORT 160-4.5 MCG INHALER INHALATION SCH ×2 (09:23→19:23)
[2020-12-21] MEDS: ALBUTEROL HFA INHALER INHALATION SCH ×4 (09:23→19:23)
[2020-12-21] MEDS: CHOLECALCIFEROL 25 MCG (1000 IU) TABLET PO SCH (09:30)
[2020-12-21] MEDS: ASCORBIC ACID 500 MG TAB PO SCH (09:30)
[2020-12-21] MEDS: ASPIRIN 81 MG PO SCH (09:30)
[2020-12-21] MEDS: ENOXAPARIN 40 MG/0.4 ML SYRINGE SQ SCH (09:31)
[2020-12-21] MEDS: SPIRONOLACTONE 25 MG TAB PO SCH (09:31)
[2020-12-21] MEDS: PANTOPRAZOLE 40 MG TABLET PO SCH (09:31)
[2020-12-21] MEDS: DEXAMETHASONE SOD PHOSPHATE 10 MG/ML 1 ML VIAL IV SCH (09:31)
[2020-12-21] MEDS: ZINC SULFATE 220 MG CAP PO SCH (09:31)
[2020-12-21] MEDS: ACETAMINOPHEN TAB 325 MG TAB PO PRN (09:34)
[2020-12-21] MEDS: REMDESIVIR 100 MG in SODIUM CHLORIDE 0.9% 250 ML IVPB SCH (09:56)
--- NOTE | 2020-12-21 10:06 | XR ---
EXAMINATION TYPE: XR chest 1V portable DATE OF EXAM: 12/21/2020 COMPARISON: 12/20/2020 INDICATION: Pulmonary edema TECHNIQUE: Single frontal view of the chest is obtained. FINDINGS: The heart size is enlarged. The pulmonary vasculature is prominent. Minimal infiltrate at the right base. This is improving. PICC line enters on the right with the tip in superior vena cava region IMPRESSION: 1. Cardiomegaly. 2. Improving mild right lower lobe infiltrate
--- NOTE | 2020-12-21 11:00 | P.PN ---
Subjective Progress Note Date: 12/21/20 CHIEF COMPLAINT: CHF HISTORY OF PRESENT ILLNESS: 12/19/2020 This is a 45-year-old female with a past medical history significant for congestive heart failure, hypertension, chronic kidney disease, and obstructive sleep apnea. Patient follows in the office with Dr. Hoyt. We have been asked to see the patient in consultation for CHF. Patient was hospitalized last week secondary to CHF and left upper extremity edema. Patient presented back to the hospital with a chief complaint of shortness of breath. Patient was found to be positive for Covid 19. Patient was also found to be in congestive heart failure. Patient was started on IV Lasix and placed on a BiPAP machine. She was admitted to the hospital and is currently in the intensive care unit. EKG reveals sinus tachycardia. Heart rate 144. Chest xray clinical correlation recommended for congestive heart failure. Atypical pneumonia should also be considered. Correlate for pulmonary edema. Laboratory data: WBC 17.2. Hemoglobin 10.6. Platelet count 308. Sodium 137. Potassium 6.0. BUN 35. Creatinine 1.75. Troponin 0.043. 0.012. BNP 12,800 Current home cardiac medications include minoxidil 10 mg daily, hydralazine 100 mg 3 times a day, clonidine 0.3 mg 3 times a day, Aldactone 25 mg daily, metoprolol tartrate 100 mg twice a day, Lasix 40 mg twice a day, aspirin 81 mg daily Echocardiogram completed in November 2020 reveals ejection fraction 65-70%, mild to moderate tricuspid regurgitation, and severe pulmonary hypertension 12/20/2020 Patients blood pressure yesterday dropped into the 70s/40s. Patients medication regimen was adjusted. Patients blood pressure this morning is 103/68. Heart rate 90-100s. She remains on IV lasix. 12/21/2020 Patient remains in the ICU. She is currently off bipap and on a nasal cannula. Patient remains on IV Lasix per pulmonary. Dose has been adjusted today. Patient's blood pressure has improved today. Most recent reading 144/89. Telemetry reveals sinus tachycardia. PHYSICAL EXAM: Thorough physical exam not completed secondary to limited evaluation/examination and due to Covid19 ASSESSMENT: Acute Covid 19 Pulmonary edema Acute exacerbation of chronic diastolic heart failure, EF 65-70% Hypertension, uncontrolled on admission Obstructive sleep apnea with CPAP use at home Chronic kidney disease History of left upper extremity edema, DVT ruled out History of bradycardia and sinus pauses, while sleeping, due to sleep apnea PLAN: Continue ICU management per Dr. Catalan Continue IV Lasix per pulmonary Continue current dose of Coreg Continue to monitor blood pressure. Will slowly resume patient's antihypertensive medications as tolerated. Further recommendations pending patient course Nurse practitioner note has been reviewed by physician. Signing provider agrees with the documented findings, assessment, and plan of care. Objective - Vital Signs Vital signs: Vital Signs Temp 100.6 F H 12/21/20 08:00 Pulse 103 H 12/21/20 10:00 Resp 26 H 12/21/20 10:00 BP 129/81 12/21/20 10:00 Pulse Ox 91 L 12/21/20 10:00 Intake & Output 12/20/20 12/21/20 12/21/20 18:59 06:59 18:59 Intake Total 350 120 40 Output Total 2560 3100 720 Balance -7890 2980 -680 Weight 152 kg Intake: IV 350 120 40 0.9 NS 100 120 40 Remdesivir 200 mg In 250 Sodium Chloride 0.9% 250 ml @ 250 mls/hr IVPB ONCE ONE Rx#:[id number] Output: Urine 2560 3100 720 Other: Voiding Method Indwelling Catheter Indwelling Catheter - Labs CBC & Chem 7: 12/21/20 04:00 12/21/20 04:00 Labs: Abnormal Lab Results - Last 24 Hours (Table) 12/21/20 12/21/20 Range/Units 04:00 04:00 Hgb 9.6 L (11.4-16.0) gm/dL Hct 33.7 L (34.0-46.0) % MCV 75.7 L (80.0-100.0) fL MCH 21.6 L (25.0-35.0) pg MCHC 28.5 L (31.0-37.0) g/dL RDW 17.9 H (11.5-15.5) % Lymphocytes # 0.4 L (1.0-4.8) k/uL Carbon Dioxide 31 H (22-30) mmol/L BUN 44 H (7-17) mg/dL Creatinine 2.16 H (0.52-1.04) mg/dL AST 96 H (14-36) U/L C-Reactive Protein 67.6 H (<10.0) mg/L
--- NOTE | 2020-12-21 11:04 | PN ---
PROGRESS NOTE The patient is seen for followup for acute kidney injury mostly related to hypotension. Patient continues to have good urine output. Lasix has been decreased to q.12 hours. Creatinine is down to 2.1 today. Blood pressure is not as low. The patient is not examined. Case is discussed with nursing staff. Her oxygen requirements have decreased. She is a little bit more awake today, but did get Ativan last night. Therefore, some element of lethargy still present. Blood pressure was 144/89, heart rate 115 per minute. She is afebrile. The patient continues to have edema in the lower extremities. She has been moving all 4 extremities. LABS: Labs show sodium 138, potassium 4.0, chloride 101, CO2 is 31, BUN 44, creatinine 2.16, hemoglobin 9.6 g/dL. ASSESSMENT: 1. Acute kidney injury secondary to hypotension, hypoperfusion currently nonoliguric with good urine output. Agree with decreasing Lasix to q.12 hours. 2. Chronic kidney disease stage 3A with creatinine 1.5-1.6 in April of 2020. Rule out chronic GN as an etiology as patient has 3+ proteinuria. Protein creatinine ratio will be ordered. 3. COVID-19 pneumonia. 4. Volume overload, maintained on IV Lasix, diuresing well. 5. Acute hypoxic respiratory failure secondary to COVID-19 pneumonia as well as congestive heart failure. PLAN: Agree with decreasing Lasix. Check UA and urine protein creatinine ratio. MMODL / IJN: [id number] /
[2020-12-21 11:25] LABS: Appearance,Urine Clear (Clear); Bacteria,Urine Occasional /hpf; Bilirubin,Urine Negative (Negative); Blood,Urine Trace (Negative); Color,Urine Yellow; Creatinine,Urine Random 81.4 mg/dL; Glucose,Urine (UA) Negative (Negative); Ketones,Urine Negative (Negative); Leukocyte Esterase,Urine Negative (Negative); Mucus,Urine Rare /hpf; Nitrite,Urine Negative (Negative); Protein,Urine 2+ (Negative); Protein/Creatinine Ratio,Urine 1.781; RBC,Urine 4 /hpf (0-5); Specific Gravity,Urine 1.012 (1.001-1.035); Squamous Epithelial Cell,Urine <1 /hpf (0-4); Urobilinogen,Urine <2.0 mg/dL (<2.0); WBC,Urine 1 /hpf (0-5)
--- NOTE | 2020-12-21 12:19 | PN ---
PROGRESS NOTE DATE OF SERVICE: 12/20/2020 CHIEF COMPLAINT: Acute pulmonary edema, congestive heart failure and COVID pneumonitis. HISTORY OF PRESENT ILLNESS: This lady is still quite short of breath. She is running low-grade temps. Breathing is slightly improved, however. PHYSICAL EXAMINATION: Breath sounds are greatly diminished. There are rales scattered throughout. Cardiac exam is normal except for tachycardia. IMPRESSION: 1. Acute pulmonary edema. 2. Acute on chronic systolic and diastolic heart failure. 3. Cardiomyopathy. 4. Uncontrolled diabetes. 5. COVID pneumonia. PLAN: Continue to follow with Cardiology and pulmonology as well as Infectious Disease and continue with supportive ICU care. MMODL / IJN: [id number] /
[2020-12-22 05:08] LABS: Anisocytosis Slight; Basophils % (A) 1 %; Eosinophils % (A) 1 %; HGB 10.3 gm/dL (11.4-16.0); Hypochromasia Marked; Lymphocytes # (A) 0.5 k/uL (1.0-4.8); Lymphocytes % (A) 12 %; MCH 22.1 pg (25.0-35.0); MCHC 29.4 g/dL (31.0-37.0); MCV 75.1 fL (80.0-100.0); Mean Platelet Volume 8.7; Microcytosis Moderate; Monocytes # (A) 0.4 k/uL (0-1.0); Monocytes % (A) 9 %; Neutrophils # (A) 3.3 k/uL (1.3-7.7); Neutrophils % (A) 75 %; Platelet Count 233 k/uL (150-450); RBC 4.66 m/uL (3.80-5.40); RDW 18.1 % (11.5-15.5); WBC 4.4 k/uL (3.8-10.6)
[2020-12-22 06:14] LABS: Albumin 3.6 g/dL (3.5-5.0); C Reactive Protein 55.3 mg/L (<10.0); Total Bilirubin 0.4 mg/dL (0.2-1.3); Total Protein 7.2 g/dL (6.3-8.2)
[2020-12-22] MEDS: BACLOFEN 10 MG TAB PO PRN (07:06)
[2020-12-22] MEDS: carvediloL 6.25 MG TAB PO SCH (07:06)
[2020-12-22] MEDS: FERROUS SULFATE 325 MG TAB PO SCH ×3 (07:06→19:24)
--- NOTE | 2020-12-22 07:18 | XR ---
EXAMINATION TYPE: XR chest 1V portable DATE OF EXAM: 12/22/2020 COMPARISON: 12/21/2020 HISTORY:: Pneumonia TECHNIQUE: Single frontal view of the chest is obtained. FINDINGS: Patchy infiltrates persist bilaterally. Continued cardiomegaly. PICC line is in place. The cardiac silhouette size is within normal limits. The osseous structures are intact. IMPRESSION: 1. Stable chest.
[2020-12-22] MEDS: SYMBICORT 160-4.5 MCG INHALER INHALATION SCH ×2 (07:49→19:13)
[2020-12-22] MEDS: ALBUTEROL HFA INHALER INHALATION SCH ×4 (07:49→19:13)
--- NOTE | 2020-12-22 08:19 | P.PN ---
Subjective Progress Note Date: 12/22/20 Principal diagnosis: CoViD 19 pneumonia This is a 45-year-old female patient, morbidly obese, who was brought into the emergency department because of worsening shortness of breath. EMS brought the patient and she was found to be progressively more short of breath at home, was having lower extremity edema and she was also in acute pulmonary edema. The patient denied having any chest pain. No fever. No chills. The initial blood work showed a white cell count of 6.7 the patient's hemoglobin was at 12.1, normal coagulation profile, normal electrolytes and the serum bicarb was 19 with a BUN of 31 and a creatinine of 1.88. The patient had a lactic acid level of 2.4. The proBNP level was 12,800 and the patient check negative for coronary artery/Covid 19 infection. The troponin was at 0.04 and subsequent level came back at 0.01. The EKG showing sinus tachycardia, right atrial enlargement, voltage criteria for LVH, and the chest x-ray is consistent with acute deco mpensated heart failure due to pulmonary edema. This patient is a morbidly obese -[place] female patient with a BMI of 34.9. She is known to have hypertension and hypertensive heart disease with concentric LVH, severe with chronic diastolic heart failure and chronic stage III kidney disease. She has been Hospital as in the past for an acute pulmonary edema. She has chronic anemia and obstructive sleep apnea which is severe and the patient has an AHI of 45 and the patient has been maintained on CPAP at a pressure of 16 cm of water along with oxygen 2 L per minute nasal cannula. She has hospitalized in the past for decompensated heart failure. In the ICU, the patient was placed on a BiPAP at a pressure of 10/5 with an FiO2 of 100%. The patient's blood pressure was quite elevated. The patient is currently on clonidine 0.3 mg by mouth 3 times a day, Lasix 40 mg IV every 8 hours, hydralazine 100 mg by mouth 3 times a day, minoxidil 10 milligrams by mouth daily and the patient is also on metoprolol 100 mg by mouth twice a day and Aldactone 25 mg by mouth daily. Furthermore, the Covid 19 testing by PCR came back positive on 12/18/2020. The chest x-ray from admission is showing acute pulmonary edema. The patient is currently on a BiPAP. She is breathing comfortably. The respiratory rate is around 18. No significant 8 weeks and the patient is able to generate tidal volumes around 450 without any major difficulties. FiO2 has been weaned down to 50%. On today's evaluation of 12/20/2020, the patient is being seen for a follow-up. As mentioned yesterday, the patient is a morbidly obese female patient with known history of hypertensive heart disease, diastolic heart failure and she came in with acute pulmonary edema and she also was diagnosed having covid 19 pulmonary infection. The patient was quite hypertensive at the time of admission. She also has chronic stage III kidney disease. She has obstructive sleep apnea among latest comorbidities. Yesterday she was on BiPAP and was given for as per support and the patient was also given Lasix 40 mg IV every 8 hours in addition to various antihypertensive medication to control her blood pressure. The patient is also on Decadron regarding her COVID19 infection. This morning, the patient's blood pressure is under and the BP is 108/74. She is still in sinus tachycardia and she is having episodes of fever which probably is related to underlying viral infection. She is on IV Lasix 40 mg every 8 h ours. The neck fluid balance has been 2.9 L negative for 12/20/2020 and the patient is headed towards another negative fluid balance for today. The renal function is stable with a creatinine of 2.3 and the BUN of 43. The d-dimer is at 0.8. A chest x-ray from today is showing Improvement in the pulmonary edema. There is still massive cardiomegaly and ongoing pulmonary vessel congestion still present. Her cardiac rhythm is sinus. She is in sinus tachycardia for now. Also, in regards to her Covid 19 infection, the patient's LDH limited at 666, CRP is a 57, pro calcitonin was 1.49 and was quite elevated indicative of an underlying bacterial infection. The white cell count is 11.3 which is lower compared to yesterday. Cultures are not available. This morning, the time of my evaluation, the patient was more lethargic as oxygen. Came off and the patient was placed back on the BiPAP. On 12/21/2020 patient seen in follow-up in intensive care unit, she is maintaining negative fluid balance, is a -5.190 ML fluid balance over the last 24 hours, remains on diuretics, Lasix 40 every 8 hours IV push. Maintenance IV fluids is 0.9 normal saline at 20 ML per hour, no nausea vomiting or diarrhea, patient is tolerating oral intake. She is confused and at times restless, CAM- ICU is positive. Overall she denies any acute distress, complains of being chilled, she continues to have fevers, she is 10 1F this morning. However despite that her oxygen demand has improved, she is currently off BiPAP support, she is down to 8 L on nasal cannula and her pulse ox is between 92-97%, lung sounds overall are diminished, with bibasilar crackles, today's chest x-ray shows improvement in terms of aeration and interstitial edema. There are still some patchy airspace opacities bilaterally. No complaints of chest pain, no phlegm production, no hemoptysis. His labs have been reviewed, showing white blood cell count is 6.4, hemoglobin is 9.6, lymphocyte count is 0.4, yesterday's d-dimer was 0.80, and patient is on prophylactic doses of Lovenox 40 mg once daily, her renal profile slightly improved, B1 is 44, creatinine is 2.16, CO2 is 31, the rest of the electrolytes were unremarkable. LDH not repeated today, on yesterday's labs they have slightly trended up up to 666 from 599 the day before, CRP on today's labs is also trending up, at 67.6 from 57.3 on yesterday's labs. procalcitonin level is 1.49, however her renal profile is abnormal which can elevate pro calcitonin levels The patient is seen today 12/22/2020 in follow-up in the intensive care unit. She is currently sitting up in bed. Awake and alert in no acute distress. Weight 100% of her breakfast. She is currently on 7 L high flow nasal cannula maintaining O2 saturations in the low to mid 90s. Chest x-ray continues to show patchy infiltrates bilaterally. Cardiomegaly. PICC line is in place. No change compared to previous. White count 4.4. Hemoglobin 10.3. D-dimer 0.69. Sodium 140. Potassium 4.0. Creatinine 1.85. LDH 1300. C-reactive protein 55.3. She remains on bronchodilators, vitamin supplements, dexamethasone, Lovenox. This is day #4 of Remdesivir. She remains on IV diuretics. Currently in a -1.7 L balance. Objective - Vital Signs Vital signs: Vital Signs Temp 99.0 F 12/22/20 04:00 Pulse 92 12/22/20 07:00 Resp 12 12/22/20 07:00 BP 159/88 12/22/20 07:00 Pulse Ox 98 12/22/20 07:00 Intake & Output 12/21/20 12/22/20 12/22/20 18:59 06:59 18:59 Intake Total 360 Output Total 1290 2150 50 Balance -930 -2150 -50 Weight 148.2 kg Intake: IV 360 0.9 NS 110 Remdesivir 100 mg In 250 Sodium Chloride 0.9% 250 ml @ 250 mls/hr IVPB DAILY@1000 [facility] Rx#: [id number] Output: Urine 1290 2150 50 Other: Voiding Method Indwelling Catheter Indwelling Catheter - Exam GENERAL EXAM: 45-year-old morbidly obese -[place]ian female patient, currently on 7 L of oxygen, awake and alert, oriented to person and place,tachypneic but in no apparent distress HEAD: Normocephalic/atraumatic. EYES: Normal reaction of pupils, equal size. Conjunctiva pink, sclera white. NOSE: Clear with pink turbinates. THROAT: No erythema or exudates. NECK: No masses, no JVD, no thyroid enlargement, no adenopathy. CHEST: No chest wall deformity. Symmetrical expansion. LUNGS: Diminished air entry bilaterally, with bibasilar crackles CVS: Regular rate and rhythm, normal S1 and S2, no gallops, no murmurs, no rubs ABDOMEN: Soft, nontender. No hepatosplenomegaly, normal bowel sounds, no guar ding or rigidity. EXTREMITIES: No clubbing, nonpitting 1+ lower extremity edema, improving from yesterday's exam no cyanosis, 2+ pulses and upper and lower extremities. MUSCULOSKELETAL: Muscle strength and tone normal. SPINE: No scoliosis or deformity SKIN: No rashes CENTRAL NERVOUS SYSTEM: No focal deficits, tone is normal in all 4 extremities. PSYCHIATRIC: Alert and oriented -3. Appropriate affect. Intact judgment and insight. - Labs CBC & Chem 7: 12/22/20 04:35 12/22/20 04:35 Labs: Abnormal Lab Results - Last 24 Hours (Table) 12/21/20 12/22/2021 Range/Units 10:52 04:35 04:35 Hgb 10.3 L (11.4-16.0) gm/dL MCV 75.1 L (80.0-100.0) fL MCH 22.1 L (25.0-35.0) pg MCHC 29.4 L (31.0-37.0) g/dL RDW 18.1 H (11.5-15.5) % Lymphocytes # 0.5 L (1.0-4.8) k/uL D-Dimer 0.69 H (<0.60) mg/L FEU Carbon Dioxide (22-30) mmol/L BUN (7-17) mg/dL Creatinine (0.52-1.04) mg/dL AST (14-36) U/L Lactate Dehydrogenase (313-618) U/L C-Reactive Protein (<10.0) mg/L Urine Protein 2+ H (Negative) Urine Blood Trace H (Negative) Urine Bacteria Occasional H (None) /hpf Urine Mucus Rare H (None) /hpf 12/22/20 Range/Units 04:35 Hgb (11.4-16.0) gm/dL MCV (80.0-100.0) fL MCH (25.0-35.0) pg MCHC (31.0-37.0) g/dL RDW (11.5-15.5) % Lymphocytes # (1.0-4.8) k/uL D-Dimer (<0.60) mg/L FEU Carbon Dioxide 35 H (22-30) mmol/L BUN 39 H (7-17) mg/dL Creatinine 1.85 H (0.52-1.04) mg/dL AST 78 H (14-36) U/L Lactate Dehydrogenase 1300 H (313-618) U/L C-Reactive Protein 55.3 H (<10.0) mg/L Urine Protein (Negative) Urine Blood (Negative) Urine Bacteria (None) /hpf Urine Mucus (None) /hpf Assessment and Plan Assessment: 1 acute hypoxic respiratory failure/pulmonary edema secondary to decompensated heart failure which is of a diastolic in nature, in addition to an acute covid 19 related pneumonia which cannot be completely excluded. The patient is supported with BiPAP yesterday. This morning she is on high flow oxygen at 7 L. She is responding nicely to diuretics. The chest x-ray showing improvement in pulmonary edema. There is still massive cardiomegaly and pulmonary edema which is responding to Lasix and the patient is a negative fluid balance. Creatinine is stable. Pro-calcitonin is probably elevated related to the renal failure. No signs of any infection. The fever is probably attributed to her underlying Covid 19 infection. 2 acute hypertensive emergency, improved and the patient's blood pressure is under better control for now. Antihypertensive medications have been resumed. 3 COVID 19 pneumonia on IV decadron and Remdesivir day #4 4 chronic stage III kidney disease, likely secondary to hypertensive nephrosclerosis 5 hypertensive heart disease with diastolic heart failure and preserved LV function and previous hospitalization for decompensated heart failure 6 morbid obesity with a BMI of 58 7 obstructive sleep apnea maintained on CPAP on outpatient basis pressure of 16 along with oxygen 2 L 8 remote history of DVT 9 history of chronic iron deficiency anemia 10 osteoarthritis blood gases will be ordered. 11 left upper extremity swelling, Doppler was negative for any DVT. 12 acute metabolic encephalopathy, delirium, multifactorial related to Covid 19, acute on chronic hypoxic respiratory failure, acute kidney injury Plan: The patient was seen and evaluated by Dr. Catalan Chest x-ray and labs reviewed Day #4 of Remdesivir Continue dexamethasone, Lovenox, vitamin supplements Continue diuretics Titrate down the FiO2 as tolerated Increase her activity as tolerated Continue to encourage increased use of the incentive spirometer We will continue to follow I, the cosigning physician, performed a history & physical examination of the patient. Lungs sounds with bibasilar crackles. Maintaining good O2 saturations in the 90s on 7 L high flow nasal cannula I discussed the assessment and plan of care with my nurse practitioner, Kacey Olea. I attest to the above note as dictated by her.
[2020-12-22] MEDS ORDERED: carvediloL 6.25 MG TAB PO ONE (08:45)
[2020-12-22] MEDS: ASCORBIC ACID 500 MG TAB PO SCH (09:52)
[2020-12-22] MEDS: REMDESIVIR 100 MG in SODIUM CHLORIDE 0.9% 250 ML IVPB SCH (09:52)
[2020-12-22] MEDS: PANTOPRAZOLE 40 MG TABLET PO SCH (09:53)
[2020-12-22] MEDS: ZINC SULFATE 220 MG CAP PO SCH (09:53)
[2020-12-22] MEDS: CHOLECALCIFEROL 25 MCG (1000 IU) TABLET PO SCH (09:53)
[2020-12-22] MEDS: DEXAMETHASONE SOD PHOSPHATE 10 MG/ML 1 ML VIAL IV SCH (09:53)
[2020-12-22] MEDS: SPIRONOLACTONE 25 MG TAB PO SCH (09:53)
[2020-12-22] MEDS: FUROSEMIDE 10 MG/ML 4 ML VIAL IV SCH ×2 (09:55→21:48)
[2020-12-22] MEDS: ENOXAPARIN 40 MG/0.4 ML SYRINGE SQ SCH (09:55)
[2020-12-22] MEDS: ASPIRIN 81 MG PO SCH (11:27)
--- NOTE | 2020-12-22 11:53 | P.PN ---
Subjective Progress Note Date: 12/22/20 CHIEF COMPLAINT: CHF HISTORY OF PRESENT ILLNESS: 12/19/2020 This is a 45-year-old female with a past medical history significant for congestive heart failure, hypertension, chronic kidney disease, and obstructive sleep apnea. Patient follows in the office with Dr. Hoyt. We have been asked to see the patient in consultation for CHF. Patient was hospitalized last week secondary to CHF and left upper extremity edema. Patient presented back to the hospital with a chief complaint of shortness of breath. Patient was found to be positive for Covid 19. Patient was also found to be in congestive heart failure. Patient was started on IV Lasix and placed on a BiPAP machine. She was admitted to the hospital and is currently in the intensive care unit. EKG reveals sinus tachycardia. Heart rate 144. Chest xray clinical correlation recommended for congestive heart failure. Atypical pneumonia should also be considered. Correlate for pulmonary edema. Laboratory data: WBC 17.2. Hemoglobin 10.6. Platelet count 308. Sodium 137. Potassium 6.0. BUN 35. Creatinine 1.75. Troponin 0.043. 0.012. BNP 12,800 Current home cardiac medications include minoxidil 10 mg daily, hydralazine 100 mg 3 times a day, clonidine 0.3 mg 3 times a day, Aldactone 25 mg daily, metoprolol tartrate 100 mg twice a day, Lasix 40 mg twice a day, aspirin 81 mg daily Echocardiogram completed in November 2020 reveals ejection fraction 65-70%, mild to moderate tricuspid regurgitation, and severe pulmonary hypertension 12/20/2020 Patients blood pressure yesterday dropped into the 70s/40s. Patients medication regimen was adjusted. Patients blood pressure this morning is 103/68. Heart rate 90-100s. She remains on IV lasix. 12/21/2020 Patient remains in the ICU. She is currently off bipap and on a nasal cannula. Patient remains on IV Lasix per pulmonary. Dose has been adjusted today. Patient's blood pressure has improved today. Most recent reading 144/89. Telemetry reveals sinus tachycardia. 12/22/2020 Patient remains in the intensive care unit. Blood pressure this morning 114/93. Patient had a blood pressure overnight in the 150s. Patient was tachycardic this morning. Her Coreg has been increased by pulmonary this morning. PHYSICAL EXAM: Thorough physical exam not completed secondary to limited evaluation/examination and due to Covid19 ASSESSMENT: Acute Covid 19 Pulmonary edema Acute exacerbation of chronic diastolic heart failure, EF 65-70% Hypertension, uncontrolled on admission Obstructive sleep apnea with CPAP use at home Chronic kidney disease History of left upper extremity edema, DVT ruled out History of bradycardia and sinus pauses, while sleeping, due to sleep apnea PLAN: Continue ICU management per Dr. Catalan Continue current dose of Coreg. Increased this morning to 12.5mg BID Continue to monitor blood pressure. Will slowly resume patient's antihypertensive medications as tolerated. Further recommendations pending patient course Nurse practitioner note has been reviewed by physician. Signing provider agrees with the documented findings, assessment, and plan of care. Objective - Vital Signs Vital signs: Vital Signs Temp 98.3 F 12/22/20 09:00 Pulse 104 H 12/22/20 10:00 Resp 30 H 12/22/20 10:00 BP 114/93 12/22/20 10:00 Pulse Ox 99 12/22/20 10:00 Intake & Output 12/21/20 12/22/20 12/22/20 18:59 06:59 18:59 Intake Total 360 730 Output Total 1290 2150 250 Balance -930 -2150 480 Weight 148.2 kg Intake: IV 360 250 0.9 NS 110 Remdesivir 100 mg In 250 250 Sodium Chloride 0.9% 250 ml @ 250 mls/hr IVPB DAILY@1000 [facility] Rx#: [id number] Oral 480 Output: Urine 1290 2150 250 Other: Voiding Method Indwelling Catheter Indwelling Catheter Indwelling Catheter - Labs CBC & Chem 7: 12/22/20 04:35 12/22/20 04:35 Labs: Abnormal Lab Results - Last 24 Hours (Table) 12/22/20 12/22/20 12/22/20 Range/Units 04:35 04:35 04:35 Hgb 10.3 L (11.4-16.0) gm/dL MCV 75.1 L (80.0-100.0) fL MCH 22.1 L (25.0-35.0) pg MCHC 29.4 L (31.0-37.0) g/dL RDW 18.1 H (11.5-15.5) % Lymphocytes # 0.5 L (1.0-4.8) k/uL D-Dimer 0.69 H (<0.60) mg/L FEU Carbon Dioxide 35 H (22-30) mmol/L BUN 39 H (7-17) mg/dL Creatinine 1.85 H (0.52-1.04) mg/dL AST 78 H (14-36) U/L Lactate Dehydrogenase 1300 H (313-618) U/L C-Reactive Protein 55.3 H (<10.0) mg/L
--- NOTE | 2020-12-22 16:33 | PN ---
PROGRESS NOTE Patient is seen for followup for acute kidney injury, volume overload. She is currently being diuresed. Renal function has improved. Mentation has improved as well. Oxygen requirements have decreased as well. Patient is being treated for COVID- 19 pneumonia. PHYSICAL EXAMINATION: Blood pressure today was 117/94, heart rate 106 per minute. She is afebrile. The patient is awake, responds to questions, answers questions as well. Examination of the lower extremities shows 1+ edema. The patient is morbidly obese. Abdomen is soft, nontender. [employer]ISTER exam grossly intact. LABS: Sodium 140, potassium 4.0, BUN 39, creatinine 1.85, hemoglobin 10.3 g/dL. ASSESSMENT: 1. Acute kidney injury, acute tubular necrosis, currently nonoliguric and improving. 2. COVID-19 pneumonia. 3. Fluid overload, significantly improved. 4. Chronic kidney disease, stage 3, baseline creatinine 1.5 to 1.6 as of April of 2020; possibility of chronic GN. 5. Acute hypoxic respiratory failure secondary to congestive heart failure and COVID- 19 pneumonia. PLAN: Continue with current dose of Lasix q.12 hours. Repeat labs in a.m. Monitor electrolytes. Protein/creatinine ratio was 1.7. MMODL / IJN: [id number] /
[2020-12-22] MEDS: carvediloL 12.5 MG TAB PO SCH (19:24)
--- NOTE | 2020-12-22 21:55 | PN ---
PROGRESS NOTE DATE OF SERVICE: 12/19/2020 CHIEF COMPLAINT: Pulmonary edema and COVID pneumonia. HISTORY OF PRESENT ILLNESS: This lady is breathing a little bit more easily with diuresis. She is being followed by Cardiology. Pulmonology will be watching her COVID status. She is being referred to Breast Surgery, who has been trying to work with her as an outpatient regarding the persistent possibility of a carcinoma of the left breast, especially considering her new-onset left arm lymphedema. PHYSICAL EXAMINATION: She seems comfortable and she does not have chest pain. Her breath sounds are extremely poor, largely due to her obesity. Cardiac exam is unremarkable. The abdomen is massive. Left arm is still edematous due to her lymphedema. IMPRESSION: 1. Acute pulmonary edema. 2. Chronic congestive heart failure. 3. Acute exacerbation of congestive heart failure. 4. Cardiomyopathy. 5. COVID pneumonia. 6. Diabetes. PLAN: Continue with supportive care and diuresis. She is slowly improving. MMODL / IJN: [id number] /
--- NOTE | 2020-12-22 22:06 | PN ---
PROGRESS NOTE DATE OF SERVICE: 12/22/2020 CHIEF COMPLAINT: Congestive heart failure and COVID pneumonia. HISTORY OF PRESENT ILLNESS: This lady is doing a little bit better. Breathing is improving. She is being followed by Cardiology as well. PHYSICAL EXAMINATION: Neck veins cannot be assessed. Chest demonstrates breath sounds that are difficult to hear but sound clear. The cardiac exam is normal. The abdomen is protuberant. The extremities are unremarkable except for her left arm. IMPRESSION: 1. Acute and chronic pansystolic and diastolic heart failure. 2. Cardiomyopathy. 3. Morbid obesity. 4. Diabetes. 5. COVID pneumonia. 6. Chronic kidney disease. PLAN: Continue with diaphoresis and continue to monitor blood sugars as well as renal function and electrolytes. MMODL / IJN: [id number] /
[2020-12-23 06:21] LABS: Anisocytosis Slight; Basophils % (A) 0 %; Eosinophils % (A) 0 %; HCT 38.3 % (34.0-46.0); HGB 10.7 gm/dL (11.4-16.0); Hypochromasia Marked; Lymphocytes # (A) 0.7 k/uL (1.0-4.8); Lymphocytes % (A) 19 %; MCH 21.3 pg (25.0-35.0); MCV 75.8 fL (80.0-100.0); Mean Platelet Volume 9.2; Microcytosis Slight; Monocytes # (A) 0.4 k/uL (0-1.0); Monocytes % (A) 10 %; Neutrophils # (A) 2.6 k/uL (1.3-7.7); Platelet Count 278 k/uL (150-450); RBC 5.05 m/uL (3.80-5.40); RDW 17.5 % (11.5-15.5)
[2020-12-23 06:39] LABS: Albumin 3.6 g/dL (3.5-5.0); C Reactive Protein 36.1 mg/L (<10.0); Calcium 8.8 mg/dL (8.4-10.2); Total Bilirubin 0.4 mg/dL (0.2-1.3); Total Protein 7.2 g/dL (6.3-8.2)
[2020-12-23] MEDS: FERROUS SULFATE 325 MG TAB PO SCH ×3 (06:44→17:59)
[2020-12-23] MEDS: carvediloL 12.5 MG TAB PO SCH ×3 (06:44→20:40)
[2020-12-23] MEDS: SYMBICORT 160-4.5 MCG INHALER INHALATION SCH ×2 (08:00→19:52)
[2020-12-23] MEDS: ALBUTEROL HFA INHALER INHALATION SCH ×4 (08:00→19:52)
[2020-12-23 08:07] LABS: WBC 3.8 k/uL (3.8-10.6)
--- NOTE | 2020-12-23 08:07 | P.PN ---
<LeftyKacey - Last Filed: 12/23/20 08:02> Subjective Progress Note Date: 12/23/20 Principal diagnosis: CoViD 19 pneumonia This is a 45-year-old female patient, morbidly obese, who was brought into the emergency department because of worsening shortness of breath. EMS brought the patient and she was found to be progressively more short of breath at home, was having lower extremity edema and she was also in acute pulmonary edema. The patient denied having any chest pain. No fever. No chills. The initial blood work showed a white cell count of 6.7 the patient's hemoglobin was at 12.1, normal coagulation profile, normal electrolytes and the serum bicarb was 19 with a BUN of 31 and a creatinine of 1.88. The patient had a lactic acid level of 2.4. The proBNP level was 12,800 and the patient check negative for coronary artery/Covid 19 infection. The troponin was at 0.04 and subsequent level came back at 0.01. The EKG showing sinus tachycardia, right atrial enlargement, voltage criteria for LVH, and the chest x-ray is consistent with acute decompensated heart failure due to pulmonary edema. This patient is a morbidly obese -[place] female patient with a BMI of 34.9. She is known to have hypertension and hypertensive heart disease with concentric LVH, severe with chronic diastolic heart failure and chronic stage III kidney disease. She has been Hospital as in the past for an acute pulmonary edema. She has chronic anemia and obstructive sleep apnea which is severe and the patient has an AHI of 45 and the patient has been maintained on CPAP at a pressure of 16 cm of water along with oxygen 2 L per minute nasal cannula. She has hospitalized in the past for decompensated heart failure. In the ICU, the patient was placed on a BiPAP at a pressure of 10/5 with an FiO2 of 100%. The patient's blood pressure was quite elevated. The patient is currently on clonidine 0.3 mg by mouth 3 times a day, Lasix 40 mg IV every 8 hours, hydralazine 100 mg by mouth 3 times a day, minoxidil 10 milligrams by mouth daily and the patient is also on metoprolol 100 mg by mouth twice a day and Aldactone 25 mg by mouth daily. Furthermore, the Covid 19 testing by PCR came back positive on 12/18/2020. The chest x-ray from admission is showing acute pulmonary edema. The patient is currently on a BiPAP. She is breathing comfortably. The respiratory rate is around 18. No significant 8 weeks and the patient is able to generate tidal volumes around 450 without any major difficulties. FiO2 has been weaned down to 50%. On today's evaluation of 12/20/2020, the patient is being seen for a follow-up. As mentioned yesterday, the patient is a morbidly obese female patient with known history of hypertensive heart disease, diastolic heart failure and she came in with acute pulmonary edema and she also was diagnosed having covid 19 pulmonary infection. The patient was quite hypertensive at the time of admission. She also has chronic stage III kidney disease. She has obstructive sleep apnea among latest comorbidities. Yesterday she was on BiPAP and was giv en for as per support and the patient was also given Lasix 40 mg IV every 8 hours in addition to various antihypertensive medication to control her blood pressure. The patient is also on Decadron regarding her COVID19 infection. This morning, the patient's blood pressure is under and the BP is 108/74. She is still in sinus tachycardia and she is having episodes of fever which probably is related to underlying viral infection. She is on IV Lasix 40 mg every 8 hours. The neck fluid balance has been 2.9 L negative for 12/20/2020 and the patient is headed towards another negative fluid balance for today. The renal function is stable with a creatinine of 2.3 and the BUN of 43. The d-dimer is at 0.8. A chest x-ray from today is showing Improvement in the pulmonary edema. There is still massive cardiomegaly and ongoing pulmonary vessel congestion still present. Her cardiac rhythm is sinus. She is in sinus tachycardia for now. Also, in regards to her Covid 19 infection, the patient's LDH limited at 666, CRP is a 57, pro calcitonin was 1.49 and was quite elevated indicative of an underlying bacterial infection. The white cell count is 11.3 which is lower compared to yesterday. Cultures are not available. This morning, the time of my evaluation, the patient was more lethargic as oxygen. Came off and the patient was placed back on the BiPAP. On 12/21/2020 patient seen in follow-up in intensive care unit, she is maintaining negative fluid balance, is a -5.190 ML fluid balance over the last 24 hours, remains on diuretics, Lasix 40 every 8 hours IV push. Maintenance IV fluids is 0.9 normal saline at 20 ML per hour, no nausea vomiting or diarrhea, patient is tolerating oral intake. She is confused and at times restless, CAM- ICU is positive. Overall she denies any acute distress, complains of being chilled, she continues to have fevers, she is 10 1F this morning. However despite that her oxygen demand has improved, she is currently off BiPAP support, she is down to 8 L on nasal cannula and her pulse ox is between 92-97%, lung sounds overall are diminished, with bibasilar crackles, today's chest x-ray shows improvement in terms of aeration and interstitial edema. There are still some patchy airspace opacities bilaterally. No complaints of chest pain, no phlegm production, no hemoptysis. His labs have been reviewed, showing white blood cell count is 6.4, hemoglobin is 9.6, lymphocyte count is 0.4, yesterday's d-dimer was 0.80, and patient is on prophylactic doses of Lovenox 40 mg once daily, her renal profile slightly improved, B1 is 44, creatinine is 2.16, CO2 is 31, the rest of the electrolytes were unremarkable. LDH not repeated today, on yesterday's labs they have slightly trended up up to 666 from 599 the day before, CRP on today's labs is also trending up, at 67.6 from 57.3 on yesterday's labs. procalcitonin level is 1.49, however her renal profile is abnormal which can elevate pro calcitonin levels The patient is seen today 12/22/2020 in follow-up in the intensive care unit. She is currently sitting up in bed. Awake and alert in no acute distress. Weight 100% of her breakfast. She is currently on 7 L high flow nasal cannula maintaining O2 saturations in the low to mid 90s. Chest x-ray continues to show patchy infiltrates bilaterally. Cardiomegaly. PICC line is in place. No change compared to previous. White count 4.4. Hemoglobin 10.3. D-dimer 0.69. Sodium 140. Potassium 4.0. Creatinine 1.85. LDH 1300. C-reactive protein 55.3. She remains on bronchodilators, vitamin supplements, dexamethasone, Lovenox. This is day #4 of Remdesivir. She remains on IV diuretics. Currently in a -1.7 L balance. she is seen today 12/23/2020 in follow-up in the intensive care unit. She is awake and alert in no acute distress. Currently sitting up in bed. Feeling quite a bit better today compared to yesterday. She is down to 3 L/m per nasal cannula maintaining O2 saturation in the 90s. She denies any worsening shortness of breath, cough or congestion. No fever, chills or night sweats. She is maintained on Symbicort, Ventolin, Decadron. She is on Lovenoxhe remains on Lasix 40 mg IV every 12 hours. White count 3.8. Hemoglobin 10.7. Sodium 136.potassium 4.0. Creatinine 1.95. D-dimer 0.56. This is day #5 of Remdesivir. Objective - Vital Signs Vital signs: Vital Signs Temp 98.9 F 12/23/20 04:00 Pulse 74 12/23/20 04:00 Resp 16 12/23/20 04:00 BP 137/78 12/23/20 04:00 Pulse Ox 96 12/23/20 04:00 Intake & Output 12/22/20 12/23/20 12/23/20 18:59 06:59 18:59 Intake Total 830 350 100 Output Total 1989 1350 60 Balance -1160 -1000 40 Intake: IV 250 Remdesivir 100 mg In 250 Sodium Chloride 0.9% 250 ml @ 250 mls/hr IVPB DAILY@1000 [facility] Rx#: [id number] Oral 580 350 100 Output: Urine 1989 1350 60 Other: Voiding Method Indwelling Catheter Indwelling Catheter - Exam GENERAL EXAM: 45-year-old morbidly obese -[place] female patient, currently on 3 L of oxygen, awake and alert, in no acute distress HEAD: Normocephalic/atraumatic. EYES: Normal reaction of pupils, equal size. Conjunctiva pink, sclera white. NOSE: Clear with pink turbinates. THROAT: No erythema or exudates. NECK: No masses, no JVD, no thyroid enlargement, no adenopathy. CHEST: No chest wall deformity. Symmetrical expansion. LUNGS: Diminished air entry bilaterally, with bibasilar crackles CVS: Regular rate and rhythm, normal S1 and S2, no gallops, no murmurs, no rubs ABDOMEN: Soft, nontender. No hepatosplenomegaly, normal bowel sounds, no guarding or rigidity. EXTREMITIES: No clubbing, nonpitting 1+ lower extremity edema, improving from yesterday's exam no cyanosis, 2+ pulses and upper and lower extremities. MUSCULOSKELETAL: Muscle strength and tone normal. SPINE: No scoliosis or deformity SKIN: No rashes CENTRAL NERVOUS SYSTEM: No focal deficits, tone is normal in all 4 extremities. PSYCHIATRIC: Alert and oriented -3. Appropriate affect. Intact judgment and insight. - Labs CBC & Chem 7: 12/23/20 05:25 12/23/20 05:25 Labs: Abnormal Lab Results - Last 24 Hours (Table) 12/23/20 12/23/20 Range/Units 05:25 05:25 Hgb 10.7 L (11.4-16.0) gm/dL MCV 75.8 L (80.0-100.0) fL MCH 21.3 L (25.0-35.0) pg MCHC 28.0 L (31.0-37.0) g/dL RDW 17.5 H (11.5-15.5) % Carbon Dioxide 35 H (22-30) mmol/L BUN 39 H (7-17) mg/dL Creatinine 1.95 H (0.52-1.04) mg/dL AST 42 H (14-36) U/L C-Reactive Protein 36.1 H (<10.0) mg/L Assessment and Plan Assessment: 1 acute hypoxic respiratory failure/pulmonary edema secondary to decompensated heart failure which is of a diastolic in nature, in addition to an acute covid 19 related pneumonia which cannot be completely excluded. She is improved significantly and down to 3 L/m per nasal cannula. 2 acute hypertensive emergency, improved and the patient's blood pressure is under better control for now. Antihypertensive medications have been resumed. 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 11 left upper extremity swelling, Doppler was negative for any DVT. 12 acute metabolic encephalopathy, delirium, multifactorial related to Covid 19, acute on chronic hypoxic respiratory failure, acute kidney injury, recovering Plan: The patient was seen and evaluated by Dr. Catalan Day #5 of Remdesivir Continue dexamethasone, Lovenox, vitamin supplements Decrease diuretics to 40 mg of Lasix daily Titrate down the FiO2 as tolerated Increase her activity as tolerated Continue to encourage increased use of the incentive spirometer Transfer out of the ICU to a regular medical floor today We will continue to follow I, the cosigning physician, performed a history & physical examination of the patient. Lungs sounds with bibasilar crackles. Maintaining good O2 saturations in the 90s on 3 L high flow nasal cannula I discussed the assessment and plan of care with my nurse practitioner, Kacey Olea. I attest to the above note as dictated by her. <Mery Catalan - Last Filed: 12/23/20 09:04> Objective - Vital Signs Vital signs: Vital Signs Temp 98.5 F 12/23/20 08:00 Pulse 80 12/23/20 08:00 Resp 12 12/23/20 08:00 BP 114/84 12/23/20 08:00 Pulse Ox 92 L 12/23/20 08:42 Intake & Output 12/22/20 12/23/20 12/23/20 18:59 06:59 18:59 Intake Total 830 350 130 Output Total 1989 1350 110 Balance -1160 -1000 20 Intake: IV 250 Remdesivir 100 mg In 250 Sodium Chloride 0.9% 250 ml @ 250 mls/hr IVPB DAILY@1000 [facility] Rx#: [id number] Oral 580 350 130 Output: Urine 1989 1350 110 Other: Voiding Method Indwelling Catheter Indwelling Catheter - Labs CBC & Chem 7: 12/23/20 05:25 12/23/20 05:25 Labs: Abnormal Lab Results - Last 24 Hours (Table) 12/23/20 12/23/20 Range/Units 05:25 05:25 Hgb 10.7 L (11.4-16.0) gm/dL MCV 75.8 L (80.0-100.0) fL MCH 21.3 L (25.0-35.0) pg MCHC 28.0 L (31.0-37.0) g/dL RDW 17.5 H (11.5-15.5) % Lymphocytes # 0.7 L (1.0-4.8) k/uL Carbon Dioxide 35 H (22-30) mmol/L BUN 39 H (7-17) mg/dL Creatinine 1.95 H (0.52-1.04) mg/dL AST 42 H (14-36) U/L C-Reactive Protein 36.1 H (<10.0) mg/L Assessment and Plan Assessment: There is a joint evaluation that was done along with the nurse practitioner. The patient is looking great. She is awake and alert. No signs of any CO2 narcosis. She is using the BiPAP overnight and currently she is on oxygen at 3 L. Lasix will be tapered to once a day. She has completed breath. She still on Decadron. No major issues for now. She'll which aspirate out of the intensive care unit today. She'll be going to a medical floor with telemetry. She remains on Lovenox. She'll be kept on Decadron.
[2020-12-23 08:09] LABS: Poikilocytosis (M) Present
[2020-12-23] MEDS: PANTOPRAZOLE 40 MG TABLET PO SCH (08:26)
[2020-12-23] MEDS: SPIRONOLACTONE 25 MG TAB PO SCH (08:26)
[2020-12-23] MEDS: ASPIRIN 81 MG PO SCH (08:26)
[2020-12-23] MEDS: ENOXAPARIN 40 MG/0.4 ML SYRINGE SQ SCH (08:26)
[2020-12-23] MEDS: CHOLECALCIFEROL 25 MCG (1000 IU) TABLET PO SCH (08:26)
[2020-12-23] MEDS: DEXAMETHASONE SOD PHOSPHATE 10 MG/ML 1 ML VIAL IV SCH (08:27)
[2020-12-23] MEDS: ASCORBIC ACID 500 MG TAB PO SCH (08:27)
[2020-12-23] MEDS: ZINC SULFATE 220 MG CAP PO SCH (08:27)
[2020-12-23] MEDS: FUROSEMIDE 10 MG/ML 4 ML VIAL IV SCH ×2 (08:27→20:40)
[2020-12-23] MEDS: REMDESIVIR 100 MG in SODIUM CHLORIDE 0.9% 250 ML IVPB SCH (09:33)
--- NOTE | 2020-12-23 12:37 | P.PN ---
Subjective Progress Note Date: 12/23/20 CHIEF COMPLAINT: CHF HISTORY OF PRESENT ILLNESS: 12/19/2020 This is a 45-year-old female with a past medical history significant for congestive heart failure, hypertension, chronic kidney disease, and obstructive sleep apnea. Patient follows in the office with Dr. Hoyt. We have been asked to see the patient in consultation for CHF. Patient was hospitalized last week secondary to CHF and left upper extremity edema. Patient presented back to the hospital with a chief complaint of shortness of breath. Patient was found to be positive for Covid 19. Patient was also found to be in congestive heart failure. Patient was started on IV Lasix and placed on a BiPAP machine. She was admitted to the hospital and is currently in the intensive care unit. EKG reveals sinus tachycardia. Heart rate 144. Chest xray clinical correlation recommended for congestive heart failure. Atypical pneumonia should also be considered. Correlate for pulmonary edema. Laboratory data: WBC 17.2. Hemoglobin 10.6. Platelet count 308. Sodium 137. Potassium 6.0. BUN 35. Creatinine 1.75. Troponin 0.043. 0.012. BNP 12,800 Current home cardiac medications include minoxidil 10 mg daily, hydralazine 100 mg 3 times a day, clonidine 0.3 mg 3 times a day, Aldactone 25 mg daily, metoprolol tartrate 100 mg twice a day, Lasix 40 mg twice a day, aspirin 81 mg daily Echocardiogram completed in November 2020 reveals ejection fraction 65-70%, mild to moderate tricuspid regurgitation, and severe pulmonary hypertension 12/20/2020 Patients blood pressure yesterday dropped into the 70s/40s. Patients medication regimen was adjusted. Patients blood pressure this morning is 103/68. Heart rate 90-100s. She remains on IV lasix. 12/21/2020 Patient remains in the ICU. She is currently off bipap and on a nasal cannula. Patient remains on IV Lasix per pulmonary. Dose has been adjusted today. Patient's blood pressure has improved today. Most recent reading 144/89. Telemetry reveals sinus tachycardia. 12/22/2020 Patient remains in the intensive care unit. Blood pressure this morning 114/93. Patient had a blood pressure overnight in the 150s. Patient was tachycardic this morning. Her Coreg has been increased by pulmonary this morning. 12/23/2020 Patient remains in intensive care unit. Patient is currently on a nasal cannula with oxygen saturations greater than 92%. Blood pressure improved today. Most recent recorded blood pressure 114/84. Heart rate in the 80s. PHYSICAL EXAM: Thorough physical exam not completed secondary to limited evaluation/examination and due to Covid19 ASSESSMENT: Acute Covid 19 Pulmonary edema Acute exacerbation of chronic diastolic heart failure, EF 65-70% Hypertension, uncontrolled on admission Obstructive sleep apnea with CPAP use at home Chronic kidney disease History of left upper extremity edema, DVT ruled out History of bradycardia and sinus pauses, while sleeping, due to sleep apnea PLAN: Continue ICU management per Dr. Catalan Continue current dose of Coreg Continue to monitor blood pressure. Will slowly resume patient's antihypertensive medications as tolerated. Further recommendations pending patient course Nurse practitioner note has been reviewed by physician. Signing provider agrees with the documented findings, assessment, and plan of care. Objective - Vital Signs Vital signs: Vital Signs Temp 98.5 F 12/23/20 08:00 Pulse 80 12/23/20 08:00 Resp 12 12/23/20 08:00 BP 114/84 12/23/20 08:00 Pulse Ox 92 L 12/23/20 08:42 Intake & Output 12/22/20 12/23/20 12/23/20 18:59 06:59 18:59 Intake Total 830 350 130 Output Total 1989 1350 110 Balance -1160 -1000 20 Intake: IV 250 Remdesivir 100 mg In 250 Sodium Chloride 0.9% 250 ml @ 250 mls/hr IVPB DAILY@1000 [facility] Rx#: [id number] Oral 580 350 130 Output: Urine 1989 1350 110 Other: Voiding Method Indwelling Catheter Indwelling Catheter Indwelling Catheter - Labs CBC & Chem 7: 12/23/20 05:25 12/23/20 05:25 Labs: Abnormal Lab Results - Last 24 Hours (Table) 12/23/20 12/23/20 Range/Units 05:25 05:25 Hgb 10.7 L (11.4-16.0) gm/dL MCV 75.8 L (80.0-100.0) fL MCH 21.3 L (25.0-35.0) pg MCHC 28.0 L (31.0-37.0) g/dL RDW 17.5 H (11.5-15.5) % Lymphocytes # 0.7 L (1.0-4.8) k/uL Carbon Dioxide 35 H (22-30) mmol/L BUN 39 H (7-17) mg/dL Creatinine 1.95 H (0.52-1.04) mg/dL AST 42 H (14-36) U/L C-Reactive Protein 36.1 H (<10.0) mg/L
[2020-12-23] MEDS: ACETAMINOPHEN TAB 325 MG TAB PO PRN ×2 (13:33→22:45)
--- NOTE | 2020-12-23 16:13 | PN ---
PROGRESS NOTE Patient is seen for followup for acute kidney injury, ATN, nonoliguric, mostly associated with hypotension, hypoperfusion as well as underlying COVID-19 infection. Patient also has diastolic heart failure and volume overload. She has been diuresed has improved significantly. Her oxygen requirements have decreased. Patient is awake and she has been downgraded from the ICU. Renal function has also been improving. PHYSICAL EXAMINATION: On examination today, blood pressure was 114/84, heart rate 80 per minute. She is afebrile. Examination shows no evidence of edema in lower extremities. Abdomen is soft, morbidly obese. REFLESHER exam grossly intact. Lungs and heart are not examined. LABS: Hemoglobin 10.7, sodium 139, potassium 4.0, BUN 39, creatinine 1.95. UA shows 2+ protein, trace blood. ASSESSMENT: 1. Acute kidney injury, acute tubular necrosis, nonoliguric, associated with hypotension, sepsis and underlying COVID-19 infection as well as an element of cardiorenal syndrome, status post aggressive diuresis. Lasix was decreased to daily today. 2. COVID-19 pneumonia, status post remdesivir, maintained on steroids, currently improving. Oxygen requirements have decreased. 3. Congestive heart failure, acute on top of chronic, mostly diastolic, now improved. 4. Volume overload, significantly improved. 5. Acute hypoxic respiratory failure secondary to congestive heart failure and COVID pneumonia. 6. Chronic kidney disease, stage 3. Baseline creatinine 1.5 to 1.6 as of April of 2020. Etiology possible underlying chronic GN. Patient has about 1.7 grams of proteinuria on urine protein/creatinine ratio. No obvious history of diabetes prior to admission. We will obtain baseline serologies for proteinuria workup. 7. Hypertension, currently controlled. Patient was hypotensive. She remains on a small dose of Coreg currently. 8. Morbid obesity. PLAN: Agree with decreasing Lasix to 40 mg IV daily. Check baseline serologies, serum and urine immunofixation for workup of proteinuria. Patient will need followup as outpatient. MMODL / IJN: [id number] /
[2020-12-23] MEDS: ENALAPRILAT 1.25 MG/ML 1 ML VIAL IVP PRN (23:10)
[2020-12-24 01:15] LABS: Hepatitis B Surface AB- Quant 4.2 mIU/mL; Hepatitis B Surface Antibody Non-Reactive (Non-Reactive); Hepatitis B Surface Antigen Non-Reactive (Non-Reactive); Hepatitis C IgG Antibody Non-Reactive (Non-Reactive)
[2020-12-24] MEDS: ENALAPRILAT 1.25 MG/ML 1 ML VIAL IVP PRN (04:11)
[2020-12-24] MEDS: LOSARTAN 50 MG TAB PO SCH ×2 (05:34→07:52)
[2020-12-24] MEDS: hydrALAZINE HCL 50 MG TAB PO SCH ×4 (05:34→23:06)
[2020-12-24] MEDS: ENOXAPARIN 40 MG/0.4 ML SYRINGE SQ SCH (07:36)
[2020-12-24] MEDS: DEXAMETHASONE SOD PHOSPHATE 10 MG/ML 1 ML VIAL IV SCH (07:37)
[2020-12-24] MEDS: FERROUS SULFATE 325 MG TAB PO SCH ×3 (07:37→15:37)
[2020-12-24] MEDS: ASCORBIC ACID 500 MG TAB PO SCH (07:37)
[2020-12-24] MEDS: PANTOPRAZOLE 40 MG TABLET PO SCH (07:37)
[2020-12-24] MEDS: SPIRONOLACTONE 25 MG TAB PO SCH (07:37)
[2020-12-24] MEDS: ZINC SULFATE 220 MG CAP PO SCH (07:37)
[2020-12-24] MEDS: carvediloL 12.5 MG TAB PO SCH ×2 (07:37→15:37)
[2020-12-24] MEDS: ASPIRIN 81 MG PO SCH (07:37)
[2020-12-24] MEDS: CHOLECALCIFEROL 25 MCG (1000 IU) TABLET PO SCH (07:37)
[2020-12-24] MEDS: FUROSEMIDE 10 MG/ML 4 ML VIAL IV SCH (07:38)
[2020-12-24] MEDS: SYMBICORT 160-4.5 MCG INHALER INHALATION SCH ×2 (07:55→21:29)
[2020-12-24] MEDS: ALBUTEROL HFA INHALER INHALATION SCH ×4 (07:55→21:28)
--- NOTE | 2020-12-24 09:06 | P.PN ---
Subjective Progress Note Date: 12/24/20 Principal diagnosis: This is a 45-year-old obese female seen in consultation because of acute kidney injury. She has covered pneumonia and also has been diuresed for congestive he art failure. This morning she is feeling much better less short of breath continues to have mild cough. No nausea vomiting appetite is fair. No dizziness No fever chills She is known with history of chronic kidney disease a baseline creatinine of about 1.4 on 05/07/2020, some proteinuria with a urine protein to palpation of 1.7 g during this admission. She is also known with congestive heart failure, COPD, on CPAP at home Objective - Vital Signs Vital signs: Vital Signs Temp 98.3 F 12/24/20 05:06 Pulse 76 12/24/20 05:06 Resp 18 12/24/20 05:06 BP 163/113 12/24/20 05:06 Pulse Ox 100 12/24/20 05:06 Intake & Output 12/23/20 12/24/20 12/24/20 18:59 06:59 18:59 Intake Total 1190 Output Total 485 Balance 705 Weight 156 kg Intake: IV 250 Remdesivir 100 mg In 250 Sodium Chloride 0.9% 250 ml @ 250 mls/hr IVPB DAILY@1000 [facility] Rx#: [id number] Oral 940 Output: Urine 485 Other: Voiding Method Indwelling Catheter Toilet # Voids 1 On examination she is awake alert oriented comfortable. HEENT exam no JVP neck is supple no facial asymmetry Lungs are clear to auscultation good air entry bilaterally Heart sounds unremarkable No murmur rub gallop Abdomen soft nontender obese Extremity exam was no edema Neurologically awake alert oriented - Labs CBC & Chem 7: 12/23/20 05:25 12/23/20 05:25 Assessment and Plan Assessment: Patient 1. Acute kidney injury secondary to cocaine and pneumonia and congestive heart failure. Improving creatinine is down to 1.8 2. Chronic kidney disease secondary to nephrosclerosis with proteinuria is slightly higher than expected at 1.[address] to rule out glomerulonephritis 3. History of carotid pneumonia, improved 4. Congestive heart failure improved 5. History of COPD and on CPAP at home 6. Obesity. 7. Hypertension not yet under control Recommendation. 1. Maintain Lasix at 40 mg IV daily. 2. Watch intake and output 3. Blood pressure slightly high, but with diuresis expected to come down will watch in dose tomorrow and increased blood pressure medication if necessary
--- NOTE | 2020-12-24 11:23 | P.PN ---
Subjective Progress Note Date: 12/24/20 This is a 45-year-old female patient, morbidly obese, who was brought into the emergency department because of worsening shortness of breath. EMS brought the patient and she was found to be progressively more short of breath at home, was having lower extremity edema and she was also in acute pulmonary edema. The patient denied having any chest pain. No fever. No chills. The initial blood work showed a white cell count of 6.7 the patient's hemoglobin was at 12.1, normal coagulation profile, normal electrolytes and the serum bicarb was 19 with a BUN of 31 and a creatinine of 1.88. The patient had a lactic acid level of 2.4. The proBNP level was 12,800 and the patient check negative for coronary artery/Covid 19 infection. The troponin was at 0.04 and subsequent level came back at 0.01. The EKG showing sinus tachycardia, right atrial enlargement, voltage criteria for LVH, and the chest x-ray is consistent with acute decompensated heart failure due to pulmonary edema. This patient is a morbidly obese -[place] female patient with a BMI of 34.9. She is known to have hypertension and hypertensive heart disease with concentric LVH, severe with chronic diastolic heart failure and chronic stage III kidney disease. She has been Hospital as in the past for an acute pulmonary edema. She has chronic anemia and obstructive sleep apnea which is severe and the patient has an AHI of 45 and the patient has been maintained on CPAP at a pressure of 16 cm of water along with oxygen 2 L per minute nasal cannula. She has hospitalized in the past for decompensated heart failure. In the ICU, the patient was placed on a BiPAP at a pressure of 10/5 with an FiO2 of 100%. The patient's blood pressure was quite elevated. The patient is currently on clonidine 0.3 mg by mouth 3 times a day, Lasix 40 mg IV every 8 hours, hydralazine 100 mg by mouth 3 times a day, minoxidil 10 milligrams by mouth daily and the patient is also on metoprolol 100 mg by mouth twice a day and Aldactone 25 mg by mouth daily. Furthermore, the Covid 19 testing by PCR came back positive on 12/18/2020. The chest x-ray from admission is showing acute pulmonary edema. The patient is currently on a BiPAP. She is breathing comfortably. The respiratory rate is around 18. No significant 8 weeks and the patient is able to generate tidal volumes around 450 without any major difficulties. FiO2 has been weaned down to 50%. On today's evaluation of 12/20/2020, the patient is being seen for a follow-up. As mentioned yesterday, the patient is a morbidly obese female patient with known history of hypertensive heart disease, diastolic heart failure and she came in with acute pulmonary edema and she also was diagnosed having covid 19 pulmonary infection. The patient was quite hypertensive at the time of admission. She also has chronic stage III kidney disease. She has obstructive sleep apnea among latest comorbidities. Yesterday she was on BiPAP and was given for as per support and the patient was also given Lasix 40 mg IV every 8 hours in addition to various antihypertensive medication to control her blood pressure. The patient is also on Decadron regarding her COVID19 infection. Thi s morning, the patient's blood pressure is under and the BP is 108/74. She is still in sinus tachycardia and she is having episodes of fever which probably is related to underlying viral infection. She is on IV Lasix 40 mg every 8 hours. The neck fluid balance has been 2.9 L negative for 12/20/2020 and the patient is headed towards another negative fluid balance for today. The renal function is stable with a creatinine of 2.3 and the BUN of 43. The d-dimer is at 0.8. A chest x-ray from today is showing Improvement in the pulmonary edema. There is still massive cardiomegaly and ongoing pulmonary vessel congestion still present. Her cardiac rhythm is sinus. She is in sinus tachycardia for now. Also, in regards to her Covid 19 infection, the patient's LDH limited at 666, CRP is a 57, pro calcitonin was 1.49 and was quite elevated indicative of an underlying bacterial infection. The white cell count is 11.3 which is lower compared to yesterday. Cultures are not available. This morning, the time of my evaluation, the patient was more lethargic as oxygen. Came off and the pa tient was placed back on the BiPAP. On 12/21/2020 patient seen in follow-up in intensive care unit, she is maintaining negative fluid balance, is a -5.190 ML fluid balance over the last 24 hours, remains on diuretics, Lasix 40 every 8 hours IV push. Maintenance IV fluids is 0.9 normal saline at 20 ML per hour, no nausea vomiting or diarrhea, patient is tolerating oral intake. She is confused and at times restless, CAM- ICU is positive. Overall she denies any acute distress, complains of being chilled, she continues to have fevers, she is 10 1F this morning. However despite that her oxygen demand has improved, she is currently off BiPAP support, she is down to 8 L on nasal cannula and her pulse ox is between 92-97%, lung sounds overall are diminished, with bibasilar crackles, today's chest x-ray shows improvement in terms of aeration and interstitial edema. There are still some patchy airspace opacities bilaterally. No complaints of chest pain, no phlegm production, no hemoptysis. His labs have been reviewed, showing white blood cell count is 6.4, hemoglobin is 9.6, lymphocyte count is 0.4, yesterday's d-dimer was 0.80, and patient is on prophylactic doses of Lovenox 40 mg once daily, her renal profile slightly improved, B1 is 44, creatinine is 2.16, CO2 is 31, the rest of the electrolytes were unremarkable. LDH not repeated today, on yesterday's labs they have slightly trended up up to 666 from 599 the day before, CRP on today's labs is also trending up, at 67.6 from 57.3 on yesterday's labs. procalcitonin level is 1.49, however her renal profile is abnormal which can elevate pro calcitonin levels The patient is seen today 12/22/2020 in follow-up in the intensive care unit. She is currently sitting up in bed. Awake and alert in no acute distress. Weight 100% of her breakfast. She is currently on 7 L high flow nasal cannula maintaining O2 saturations in the low to mid 90s. Chest x-ray continues to show patchy infiltrates bilaterally. Cardiomegaly. PICC line is in place. No change compared to previous. White count 4.4. Hemoglobin 10.3. D-dimer 0.69. Sodium 140. Potassium 4.0. Creatinine 1.85. LDH 1300. C-reactive protein 55.3. She remains on bronchodilators, vitamin supplements, dexamethasone, Lovenox. This is day #4 of Remdesivir. She remains on IV diuretics. Currently in a -1.7 L balance. she is seen today 12/23/2020 in follow-up in the intensive care unit. She is awake and alert in no acute distress. Currently sitting up in bed. Feeling quite a bit better today compared to yesterday. She is down to 3 L/m per nasal cannula maintaining O2 saturation in the 90s. She denies any worsening shortness of breath, cough or congestion. No fever, chills or night sweats. She is maintained on Symbicort, Ventolin, Decadron. She is on Lovenoxhe remains on Lasix 40 mg IV every 12 hours. White count 3.8. Hemoglobin 10.7. Sodium 136.potassium 4.0. Creatinine 1.95. D-dimer 0.56. This is day #5 of Remdesivir. On 12/24/2020 the patient is currently on 2 L of oxygen by nasal cannula. I transferred her out of the intensive care unit yesterday and the patient is currently on a medical floor. She is communicating. She is no significant shortness of breath. She is using the BiPAP overnight. She is on Lasix that and the dose was reduced yesterday and the patient remains a negative fluid balance. Creatinine is at 1.9 with a BUN of 38 and the fluid balance over the past 24 hours has been negative and the patient is diuresing well for now. She was at least -2.1 L over the past 24 hours. In terms of her Covid 19 infection, the patient has completed her REM and she is still on steroids and she is receiving Decadron 6 mg by mouth daily to complete a total of 10 day course. No fever. No chills. No other significant events. No signs of any CO2 narcosis. She is on Lovenox 40 mg subcu for DVT prophylaxis. Her blood work showing no major abnormalities. Hemoglobin level is at 10.7. Objective - Vital Signs Vital signs: Vital Signs Temp 98.4 F 12/24/20 10:00 Pulse 105 H 12/24/20 10:07 Resp 16 12/24/20 10:00 BP 146/99 12/24/20 10:00 Pulse Ox 95 12/24/20 10:07 Intake & Output 12/23/20 12/24/20 12/24/20 18:59 06:59 18:59 Intake Total 1190 Output Total 485 Balance 705 Weight 156 kg Intake: IV 250 Remdesivir 100 mg In 250 Sodium Chloride 0.9% 250 ml @ 250 mls/hr IVPB DAILY@1000 [facility] Rx#: [id number] Oral 940 Output: Urine 485 Other: Voiding Method Indwelling Catheter Toilet # Voids 1 - Exam GENERAL EXAM: 45-year-old morbidly obese -[place] female patient, kana tly on 2L of oxygen, awake and alert, in no acute distress HEAD: Normocephalic/atraumatic. EYES: Normal reaction of pupils, equal size. Conjunctiva pink, sclera white. NOSE: Clear with pink turbinates. THROAT: No erythema or exudates. NECK: No masses, no JVD, no thyroid enlargement, no adenopathy. CHEST: No chest wall deformity. Symmetrical expansion. LUNGS: Diminished air entry bilaterally, with bibasilar crackles CVS: Regular rate and rhythm, normal S1 and S2, no gallops, no murmurs, no rubs ABDOMEN: Soft, nontender. No hepatosplenomegaly, normal bowel sounds, no guarding or rigidity. EXTREMITIES: No clubbing, nonpitting 1+ lower extremity edema, improving from yesterday's exam no cyanosis, 2+ pulses and upper and lower extremities. MUSCULOSKELETAL: Muscle strength and tone normal. SPINE: No scoliosis or deformity SKIN: No rashes CENTRAL NERVOUS SYSTEM: No focal deficits, tone is normal in all 4 extremities. PSYCHIATRIC: Alert and oriented -3. Appropriate affect. Intact judgment and insight. - Labs CBC & Chem 7: 12/23/20 05:25 12/23/20 05:25 Assessment and Plan Plan: 1 acute hypoxic respiratory failure/pulmonary edema secondary to decompensated heart failure which is of a diastolic in nature, in addition to an acute covid 19 related pneumonia which cannot be completely excluded. She is improved significantly and down to2 L/m per nasal cannula. 2 acute hypertensive emergency, improved , BP is under better control, hydralazine was added for blood pressure control and she is also on Cozaar 100 mg by mouth daily and Coreg 12.5 mg by mouth twice a day. 3 COVID 19 pneumonia on IV decadron and Remdesivir day #5 4 chronic stage III kidney disease, likely secondary to hypertensive nephrosclerosis 5 hypertensive heart disease with diastolic heart failure and preserved LV fun ction and previous hospitalization for decompensated heart failure 6 morbid obesity with a BMI of 58 7 obstructive sleep apnea maintained on CPAP on outpatient basis pressure of 16 along with oxygen 2 L 8 remote history of DVT 9 history of chronic iron deficiency anemia 10 osteoarthritis blood gases will be ordered. 11 left upper extremity swelling, Doppler was negative for any DVT. 12 acute metabolic encephalopathy, delirium, multifactorial related to Covid 19, acute on chronic hypoxic respiratory failure, acute kidney injury, recovering Plan: Remdesivir completed Continue dexamethasone, Lovenox, vitamin supplements His Lasix 40 mg by mouth twice a day Titrate down the FiO2 as tolerated not currently she is on 2 L BiPAP overnight Increase her activity as tolerated Continue to encourage increased use of the incentive spirometer She is going to need outpatient follow-up regarding sleep breathing disorder and possibility of a CPAP/BiPAP machine. We will continue to follow
--- NOTE | 2020-12-24 12:15 | P.PN ---
Subjective Progress Note Date: 12/24/20 The patient is a 45-year-old female with past medical history of congestive heart failure, hypertension, chronic kidney disease, and sleep apnea who is currently admitted to the hospital for Covid pneumonia. The patient has been steadily improving throughout her clinical course. The patient was initially admitted to the ICU due to hypotension and need for BiPAP machine. She will has been successfully downgraded and transferred to the cardiac unit. The patient is in the process being weaned off of her oxygen. According to nursing staff, she is slowly feeling better every day in her lower extremity swelling has significantly improved. PHYSICAL EXAM: Thorough physical exam not completed secondary to limited evaluation/examination due to COVID 19. VITALS: Blood pressure 146/99, pulse rate 112, respiratory rate 16, temperature 98.4F, SpO2 94% on 2 L nasal cannula TELEMETRY: Sinus tachycardia with heart rates in the 90s to low 100s LABS: No new laboratory data IMPRESSION: Covid 19 infection Pulmonary edema Acute on chronic diastolic heart failure, EF 65-70% Hypertension, improving Chronic kidney disease Obstructive sleep apnea, on CPAP use PLAN: Continue current medication regimen Continue to monitor blood pressure; slowly resume medications to prevent hypotension Further recommendations pending patient's course The patient has been seen and evaluated. Plan of care has been reviewed and agreed upon by Dr Isbell. Objective - Vital Signs Vital signs: Vital Signs Temp 98.4 F 12/24/20 10:00 Pulse 105 H 12/24/20 10:07 Resp 16 12/24/20 10:00 BP 146/99 12/24/20 10:00 Pulse Ox 95 12/24/20 10:07 Intake & Output 12/23/20 12/24/20 12/24/20 18:59 06:59 18:59 Intake Total 1190 Output Total 485 Balance 705 Weight 156 kg Intake: IV 250 Remdesivir 100 mg In 250 Sodium Chloride 0.9% 250 ml @ 250 mls/hr IVPB DAILY@1000 [facility] Rx#: [id number] Oral 940 Output: Urine 485 Other: Voiding Method Indwelling Catheter Toilet Toilet # Voids 1 - Labs CBC & Chem 7: 12/23/20 05:25 12/23/20 05:25
[2020-12-24] MEDS: FUROSEMIDE 40 MG TAB PO SCH (15:37)
--- NOTE | 2020-12-24 17:09 | PN ---
PROGRESS NOTE DATE OF SERVICE: 12/23/2020. CHIEF COMPLAINT: Acute on chronic congestive heart failure, Covid pneumonia, morbid obesity and lymphedema left arm. HISTORY OF PRESENT ILLNESS: This lady is improving and will probably be moved out of ICU today. She is breathing on room air and holding her pulse ox fairly well. She will be using a BiPAP at night. PHYSICAL EXAMINATION: She is fully awake and oriented. Head, ears, eyes, ears, nose, mouth and normal. Chest exam demonstrates are decreased breath sounds. CARDIAC: Cardiac exam is normal. IMPRESSION: 1. Acute on chronic systolic and diastolic congestive heart failure. 2. Cardiomyopathy. 3. Morbid obesity. 4. COVID pneumonia. 5. Lymphedema, left arm. PLAN: She will be moved out of ICU today. MMDAMIEN / CEZARN: [id number] /
--- NOTE | 2020-12-24 17:18 | PN ---
PROGRESS NOTE DATE OF SERVICE: 12/24/2020. CHIEF COMPLAINT: Acute congestive heart failure and Covid pneumonia. HISTORY OF PRESENT ILLNESS: This lady continues to slowly improve. She is not particularly short of breath. She has diuresed fairly well. She denies any chest pain. PHYSICAL EXAMINATION: Chest is quite clear. There are only occasional rales at the bases. Cardiac exam is normal. Abdomen is protuberant without tenderness. Left arm remains edematous. IMPRESSION: 1. Acute on chronic congestive heart failure (systolic and diastolic). 2. Cardiomyopathy. 3. Hypertension. 4. Covid pneumonia. 5. Morbid obesity. 6. Lymphedema left arm. 7. Possible carcinoma left breast. PLAN: Continue to increase activity and she will probably be able to go home fairly soon. MMODL / IJN: [id number] /
[2020-12-25] MEDS: ENALAPRILAT 1.25 MG/ML 1 ML VIAL IVP PRN (05:27)
[2020-12-25] MEDS: ALBUTEROL HFA INHALER INHALATION SCH ×4 (08:24→20:18)
[2020-12-25] MEDS: SYMBICORT 160-4.5 MCG INHALER INHALATION SCH ×2 (08:24→20:18)
[2020-12-25] MEDS: LOSARTAN 50 MG TAB PO SCH (08:32)
[2020-12-25] MEDS: ASPIRIN 81 MG PO SCH (08:32)
[2020-12-25] MEDS: hydrALAZINE HCL 50 MG TAB PO SCH ×3 (08:32→23:08)
[2020-12-25] MEDS: SPIRONOLACTONE 25 MG TAB PO SCH (08:32)
[2020-12-25] MEDS: FUROSEMIDE 40 MG TAB PO SCH ×2 (08:32→17:06)
[2020-12-25] MEDS: ZINC SULFATE 220 MG CAP PO SCH (08:32)
[2020-12-25] MEDS: FERROUS SULFATE 325 MG TAB PO SCH ×3 (08:32→17:06)
[2020-12-25] MEDS: CHOLECALCIFEROL 25 MCG (1000 IU) TABLET PO SCH (08:33)
[2020-12-25] MEDS: PANTOPRAZOLE 40 MG TABLET PO SCH (08:33)
[2020-12-25] MEDS: carvediloL 12.5 MG TAB PO SCH ×2 (08:33→17:06)
[2020-12-25] MEDS: DEXAMETHASONE SOD PHOSPHATE 10 MG/ML 1 ML VIAL PO SCH (08:33)
[2020-12-25] MEDS: ASCORBIC ACID 500 MG TAB PO SCH (08:33)
[2020-12-25] MEDS: ENOXAPARIN 40 MG/0.4 ML SYRINGE SQ SCH (08:33)
--- NOTE | 2020-12-25 09:47 | P.PN ---
Subjective Progress Note Date: 12/25/20 Principal diagnosis: This is a 45-year-old obese female seen in consultation because of acute kidney injury. She has COVID pneumonia and also has been diuresed for congestive heart failure. patient was not examined and I talked to her from the doorway because of the COVID This morning she is feeling much better less short of breath continues to have mild cough. No nausea vomiting appetite is fair.he is currently on room air. No dizziness No fever chills She is known with history of chronic kidney disease a baseline creatinine of about 1.4 on 05/07/2020, some proteinuria with a urine protein to palpation of 1.7 g during this admission. She is also known with congestive heart failure, COPD, on CPAP at home Objective - Vital Signs Vital signs: Vital Signs Temp 98.0 F 12/25/20 06:09 Pulse 89 12/25/20 08:38 Resp 18 12/25/20 06:09 BP 149/92 12/25/20 08:38 Pulse Ox 92 L 12/25/20 06:09 Intake & Output 12/24/20 12/25/20 12/25/20 18:59 06:59 18:59 Weight 158.1 kg Other: Voiding Method Toilet Toilet patient was seen from the doorway. She does not have edema she is on room air she is comfortable and feeling well - Labs CBC & Chem 7: 12/23/20 05:25 12/23/20 05:25 Assessment and Plan Assessment: Patient 1. Acute kidney injury secondary to Covid pneumonia and congestive heart failure. Improving creatinine is down to 1.85 to 1.95 this morning, peak creatinine was 2.37 2. Chronic kidney disease secondary to nephrosclerosis with proteinuria is slightly higher than expected at 1.[address] to rule out glomerulonephritis 3. History of covid pneumonia, improved 4. Congestive heart failure improved 5. History of COPD and on CPAP at home 6. Obesity. 7. Hypertension not yet under controlmy improved Recommendation. 1. Maintain Lasix, currently at 40 by mouth twice a day.urine output is 33 40 mL 2. Watch intake and output 3. Blood pressure slightly high, but with diuresis expected to come down will watch tomorrow and increased blood pressure medication if necessary
--- NOTE | 2020-12-25 12:12 | P.PN ---
Subjective Progress Note Date: 12/25/20 This is a 45-year-old female patient, morbidly obese, who was brought into the emergency department because of worsening shortness of breath. EMS brought the patient and she was found to be progressively more short of breath at home, was having lower extremity edema and she was also in acute pulmonary edema. The patient denied having any chest pain. No fever. No chills. The initial blood work showed a white cell count of 6.7 the patient's hemoglobin was at 12.1, normal coagulation profile, normal electrolytes and the serum bicarb was 19 with a BUN of 31 and a creatinine of 1.88. The patient had a lactic acid level of 2.4. The proBNP level was 12,800 and the patient check negative for coronary artery/Covid 19 infection. The troponin was at 0.04 and subsequent level came back at 0.01. The EKG showing sinus tachycardia, right atrial enlargement, voltage criteria for LVH, and the chest x-ray is consistent with acute decompensated heart failure due to pulmonary edema. This patient is a morbidly obese -[place] female patient with a BMI of 34.9. She is known to have hypertension and hypertensive heart disease with concentric LVH, severe with chronic diastolic heart failure and chronic stage III kidney disease. She has been Hospital as in the past for an acute pulmonary edema. She has chronic anemia and obstructive sleep apnea which is severe and the patient has an AHI of 45 and the patient has been maintained on CPAP at a pressure of 16 cm of water along with oxygen 2 L per minute nasal cannula. She has hospitalized in the past for decompensated heart failure. In the ICU, the patient was placed on a BiPAP at a pressure of 10/5 with an FiO2 of 100%. The patient's blood pressure was quite elevated. The patient is currently on clonidine 0.3 mg by mouth 3 times a day, Lasix 40 mg IV every 8 hours, hydralazine 100 mg by mouth 3 times a day, minoxidil 10 milligrams by mouth daily and the patient is also on metoprolol 100 mg by mouth twice a day and Aldactone 25 mg by mouth daily. Furthermore, the Covid 19 testing by PCR came back positive on 12/18/2020. The chest x-ray from admission is showing acute pulmonary edema. The patient is currently on a BiPAP. She is breathing comfortably. The respiratory rate is around 18. No significant 8 weeks and the patient is able to generate tidal volumes around 450 without any major difficulties. FiO2 has been weaned down to 50%. On today's evaluation of 12/20/2020, the patient is being seen for a follow-up. As mentioned yesterday, the patient is a morbidly obese female patient with known history of hypertensive heart disease, diastolic heart failure and she came in with acute pulmonary edema and she also was diagnosed having covid 19 pulmonary infection. The patient was quite hypertensive at the time of admission. She also has chronic stage III kidney disease. She has obstructive sleep apnea among latest comorbidities. Yesterday she was on BiPAP and was given for as per support and the patient was also given Lasix 40 mg IV every 8 hours in addition to various antihypertensive medication to control her blood pressure. The patient is also on Decadron regarding her COVID19 infection. Thi s morning, the patient's blood pressure is under and the BP is 108/74. She is still in sinus tachycardia and she is having episodes of fever which probably is related to underlying viral infection. She is on IV Lasix 40 mg every 8 hours. The neck fluid balance has been 2.9 L negative for 12/20/2020 and the patient is headed towards another negative fluid balance for today. The renal function is stable with a creatinine of 2.3 and the BUN of 43. The d-dimer is at 0.8. A chest x-ray from today is showing Improvement in the pulmonary edema. There is still massive cardiomegaly and ongoing pulmonary vessel congestion still present. Her cardiac rhythm is sinus. She is in sinus tachycardia for now. Also, in regards to her Covid 19 infection, the patient's LDH limited at 666, CRP is a 57, pro calcitonin was 1.49 and was quite elevated indicative of an underlying bacterial infection. The white cell count is 11.3 which is lower compared to yesterday. Cultures are not available. This morning, the time of my evaluation, the patient was more lethargic as oxygen. Came off and the pa tient was placed back on the BiPAP. On 12/21/2020 patient seen in follow-up in intensive care unit, she is maintaining negative fluid balance, is a -5.190 ML fluid balance over the last 24 hours, remains on diuretics, Lasix 40 every 8 hours IV push. Maintenance IV fluids is 0.9 normal saline at 20 ML per hour, no nausea vomiting or diarrhea, patient is tolerating oral intake. She is confused and at times restless, CAM- ICU is positive. Overall she denies any acute distress, complains of being chilled, she continues to have fevers, she is 10 1F this morning. However despite that her oxygen demand has improved, she is currently off BiPAP support, she is down to 8 L on nasal cannula and her pulse ox is between 92-97%, lung sounds overall are diminished, with bibasilar crackles, today's chest x-ray shows improvement in terms of aeration and interstitial edema. There are still some patchy airspace opacities bilaterally. No complaints of chest pain, no phlegm production, no hemoptysis. His labs have been reviewed, showing white blood cell count is 6.4, hemoglobin is 9.6, lymphocyte count is 0.4, yesterday's d-dimer was 0.80, and patient is on prophylactic doses of Lovenox 40 mg once daily, her renal profile slightly improved, B1 is 44, creatinine is 2.16, CO2 is 31, the rest of the electrolytes were unremarkable. LDH not repeated today, on yesterday's labs they have slightly trended up up to 666 from 599 the day before, CRP on today's labs is also trending up, at 67.6 from 57.3 on yesterday's labs. procalcitonin level is 1.49, however her renal profile is abnormal which can elevate pro calcitonin levels The patient is seen today 12/22/2020 in follow-up in the intensive care unit. She is currently sitting up in bed. Awake and alert in no acute distress. Weight 100% of her breakfast. She is currently on 7 L high flow nasal cannula maintaining O2 saturations in the low to mid 90s. Chest x-ray continues to show patchy infiltrates bilaterally. Cardiomegaly. PICC line is in place. No change compared to previous. White count 4.4. Hemoglobin 10.3. D-dimer 0.69. Sodium 140. Potassium 4.0. Creatinine 1.85. LDH 1300. C-reactive protein 55.3. She remains on bronchodilators, vitamin supplements, dexamethasone, Lovenox. This is day #4 of Remdesivir. She remains on IV diuretics. Currently in a -1.7 L balance. she is seen today 12/23/2020 in follow-up in the intensive care unit. She is awake and alert in no acute distress. Currently sitting up in bed. Feeling quite a bit better today compared to yesterday. She is down to 3 L/m per nasal cannula maintaining O2 saturation in the 90s. She denies any worsening shortness of breath, cough or congestion. No fever, chills or night sweats. She is maintained on Symbicort, Ventolin, Decadron. She is on Lovenoxhe remains on Lasix 40 mg IV every 12 hours. White count 3.8. Hemoglobin 10.7. Sodium 136.potassium 4.0. Creatinine 1.95. D-dimer 0.56. This is day #5 of Remdesivir. On 12/24/2020 the patient is currently on 2 L of oxygen by nasal cannula. I transferred her out of the intensive care unit yesterday and the patient is currently on a medical floor. She is communicating. She is no significant shortness of breath. She is using the BiPAP overnight. She is on Lasix that and the dose was reduced yesterday and the patient remains a negative fluid balance. Creatinine is at 1.9 with a BUN of 38 and the fluid balance over the past 24 hours has been negative and the patient is diuresing well for now. She was at least -2.1 L over the past 24 hours. In terms of her Covid 19 infection, the patient has completed her REM and she is still on steroids and she is receiving Decadron 6 mg by mouth daily to complete a total of 10 day course. No fever. No chills. No other significant events. No signs of any CO2 narcosis. She is on Lovenox 40 mg subcu for DVT prophylaxis. Her blood work showing no major abnormalities. Hemoglobin level is at 10.7. On today's evaluation of 12/25/2020, the patient is calm and comfortable. She is sitting up on a chair. No issues for now. She is on room air oxygen. She is currently on oral Lasix. She continues to diurese and her fluid balance +700 mL positive for yesterday. Twice a day and she is also on lisinopril as needed, she is on hydralazine 50 mg 3 times a day and she is on Aldactone and Lasix combination and Cozaar 100 mg by mouth daily. The patient herself has no complaints. Her current blood pressure is well controlled. She is on room air oxygen. She is eager to go home. Objective - Vital Signs Vital signs: Vital Signs Temp 98.7 F 12/25/20 10:40 Pulse 89 12/25/20 10:40 Resp 18 12/25/20 10:40 BP 147/87 12/25/20 10:40 Pulse Ox 94 L 12/25/20 10:40 Intake & Output 12/24/20 12/25/20 12/25/20 18:59 06:59 18:59 Weight 158.1 kg Other: Voiding Method Toilet Toilet - Exam GENERAL EXAM: 45-year-old morbidly obese -[place] female patient, currently on RA oxygen, awake and alert, in no acute distress HEAD: Normocephalic/atraumatic. EYES: Normal reaction of pupils, equal size. Conjunctiva pink, sclera white. NOSE: Clear with pink turbinates. THROAT: No erythema or exudates. NECK: No masses, no JVD, no thyroid enlargement, no adenopathy. CHEST: No chest wall deformity. Symmetrical expansion. LUNGS: Diminished air entry bilaterally, with bibasilar crackles CVS: Regular rate and rhythm, normal S1 and S2, no gallops, no murmurs, no rubs ABDOMEN: Soft, nontender. No hepatosplenomegaly, normal bowel sounds, no guarding or rigidity. EXTREMITIES: No clubbing, nonpitting 1+ lower extremity edema, improving from yesterday's exam no cyanosis, 2+ pulses and upper and lower extremities. MUSCULOSKELETAL: Muscle strength and tone normal. SPINE: No scoliosis or deformity SKIN: No rashes CENTRAL NERVOUS SYSTEM: No focal deficits, tone is normal in all 4 extremities. PSYCHIATRIC: Alert and oriented -3. Appropriate affect. Intact judgment and insight. - Labs CBC & Chem 7: 12/23/20 05:25 12/23/20 05:25 Assessment and Plan Plan: 1 acute hypoxic respiratory failure/pulmonary edema secondary to decompensated heart failure , recovered currently on room air oxygen 2 acute hypertensive emergency, improved , BP is under better control, hydralazine was added for blood pressure control and she is also on Cozaar 100 mg by mouth daily and Coreg 12.5 mg by mouth twice a day. Cardiology is to make further adjustments on the blood pressure medication 3 COVID 19 pneumonia on IV decadron and Remdesivir day #5 4 chronic stage III kidney disease, likely secondary to hypertensive nephrosclerosis recurrent creatinine is stable at 1.95 5 hypertensive heart disease with diastolic heart failure and preserved LV function and previous hospitalization for decompensated heart failure 6 morbid obesity with a BMI of 58 7 obstructive sleep apnea maintained on CPAP on outpatient basis pressure of 16 along with oxygen 2 L 8 remote history of DVT 9 history of chronic iron deficiency anemia 10 osteoarthritis blood gases will be ordered. 11 left upper extremity swelling, Doppler was negative for any DVT. 12 acute metabolic encephalopathy, delirium, multifactorial related to Covid 19, acute on chronic hypoxic respiratory failure, acute kidney injury, recovering Plan: Remdesivir completed Continue dexamethasone, Lovenox, vitamin supplements Lasix 40 mg by mouth twice a day and Aldactone 25 mg by mouth daily Titrate down the FiO2 to room air oxygen BiPAP overnight Increase her activity as tolerated Continue to encourage increased use of the incentive spirometer She is going to need outpatient follow-up regarding sleep breathing disorder and possibility of a CPAP/BiPAP machine. discharge as per medicine and cardiology
--- NOTE | 2020-12-25 12:57 | P.PN ---
Subjective Progress Note Date: 12/25/20 The patient is a 45-year-old female with past medical history of congestive heart failure, hypertension, chronic kidney disease, and sleep apnea who is currently admitted to the hospital for Covid pneumonia. The patient has been steadily improving throughout her clinical course. She is now weaned off of her oxygen throughout the day and is currently using a CPAP at night. Her blood pr essures continue to elevate her overnight but are not averaging in the 140s systolic throughout the day. PHYSICAL EXAM: Thorough physical exam not completed secondary to limited evaluation/examination due to COVID 19. VITALS: Blood pressure 147/87, pulse rate 89, respiratory rate 18, temperature 97.8F, SpO2 94% on room air TELEMETRY: Sinus tachycardia with heart rates in the 80s to 90s LABS: No new laboratory data IMPRESSION: Covid 19 infection Pulmonary edema Acute on chronic diastolic heart failure, EF 65-70% Hypertension, improving Chronic kidney disease Obstructive sleep apnea, on CPAP use PLAN: No changes to her current medical regimen Continue to monitor blood pressure; slowly resume medications to prevent hypotension Further recommendations pending patient's course The patient has been seen and evaluated. Plan of care has been reviewed and agreed upon by Dr Isbell. Objective - Vital Signs Vital signs: Vital Signs Temp 98.7 F 12/25/20 10:40 Pulse 89 12/25/20 10:40 Resp 18 12/25/20 10:40 BP 147/87 12/25/20 10:40 Pulse Ox 94 L 12/25/20 10:40 Intake & Output 12/24/20 12/25/20 12/25/20 18:59 06:59 18:59 Weight 158.1 kg Other: Voiding Method Toilet Toilet - Labs CBC & Chem 7: 12/23/20 05:25 12/23/20 05:25
[2020-12-26] MEDS: ENALAPRILAT 1.25 MG/ML 1 ML VIAL IVP PRN ×3 (02:16→22:25)
[2020-12-26] MEDS: DEXAMETHASONE SOD PHOSPHATE 10 MG/ML 1 ML VIAL PO SCH (07:46)
[2020-12-26] MEDS: ENOXAPARIN 40 MG/0.4 ML SYRINGE SQ SCH (07:46)
[2020-12-26] MEDS: CHOLECALCIFEROL 25 MCG (1000 IU) TABLET PO SCH (07:46)
[2020-12-26] MEDS: SPIRONOLACTONE 25 MG TAB PO SCH (07:47)
[2020-12-26] MEDS: hydrALAZINE HCL 50 MG TAB PO SCH ×3 (07:47→23:02)
[2020-12-26] MEDS: FUROSEMIDE 40 MG TAB PO SCH ×2 (07:47→15:30)
[2020-12-26] MEDS: ASCORBIC ACID 500 MG TAB PO SCH (07:47)
[2020-12-26] MEDS: FERROUS SULFATE 325 MG TAB PO SCH ×3 (07:47→15:30)
[2020-12-26] MEDS: ASPIRIN 81 MG PO SCH (07:47)
[2020-12-26] MEDS: carvediloL 12.5 MG TAB PO SCH ×2 (07:47→15:30)
[2020-12-26] MEDS: PANTOPRAZOLE 40 MG TABLET PO SCH (07:48)
[2020-12-26] MEDS: LOSARTAN 50 MG TAB PO SCH (07:48)
[2020-12-26] MEDS: ZINC SULFATE 220 MG CAP PO SCH (07:48)
[2020-12-26] MEDS: SYMBICORT 160-4.5 MCG INHALER INHALATION SCH ×2 (08:50→21:07)
[2020-12-26] MEDS: ALBUTEROL HFA INHALER INHALATION SCH ×4 (08:50→21:07)
[2020-12-26 10:14] LABS: African American GFR (CKD) 38 (>60 ml/min/1.73 sqM); Anion Gap 5 mmol/L; Blood Urea Nitrogen 37 mg/dL (7-17); Calcium 9.2 mg/dL (8.4-10.2); Carbon Dioxide 32 mmol/L (22-30); Chloride 99 mmol/L (98-107); Glucose 119 mg/dL (74-99); Non-African American GFR(CKD) 33 (>60 ml/min/1.73 sqM); Potassium 3.9 mmol/L (3.5-5.1); Sodium 136 mmol/L (137-145)
--- NOTE | 2020-12-26 14:33 | PN ---
PROGRESS NOTE Patient is seen for followup for acute kidney injury on top of chronic kidney disease. The patient was admitted with severe respiratory distress with COVID pneumonia as well as CHF exacerbation. She has been diuresed. Renal function has been fairly stable with creatinine now staying at about 1.8 mg/dL. PHYSICAL EXAMINATION: On examination today, patient is comfortable, awake, not in any acute distress. Blood pressure was elevated 172/108, heart rate 95 per minute. She is afebrile. Examination shows no evidence of edema of lower extremities. Abdomen is soft, morbidly obese, nontender. HELP AID exam grossly intact. LABS: Labs show sodium of 136, potassium 3.9, CO2 is 32, chloride 99, BUN 37, serum creatinine 1.8, hemoglobin 10.7 g/dL. ASSESSMENT: 1. Acute kidney injury, acute tubular necrosis, associated with COVID-19 pneumonia infection and congestive heart failure and hypotension, currently improved. 2. Congestive heart failure/volume overload, status post diuresis, currently stable. 3. COVID-19 pneumonia. 4. Acute hypoxic respiratory failure secondary to COVID-19 pneumonia and congestive heart failure exacerbation, currently improved. 5. History of chronic obstructive pulmonary disease. 6. Hypertension. Blood pressure remains elevated. PLAN: Increase Coreg to 25 mg b.i.d. as blood pressure remains elevated. Expect further improvement once patient is weaned off of the steroids. She will need to follow up as outpatient for CKD. MMODL / IJN: [id number] /
--- NOTE | 2020-12-26 14:42 | P.PN ---
Subjective The patient is a 45-year-old female with past medical history of congestive heart failure, hypertension, chronic kidney disease, and obstructive sleep apnea who is currently admitted to the hospital for Covid pneumonia. She follows in the office with Dr. Hoyt. We have been consulted for congestive heart failure. She was admitted to the intensive care unit on admission. She was hypertensive, anti-hypertensives were started however patient could not tolerate medication and BP dropped 70s/40s. Her medication regimen has been adjusted slowly. She has been steadily improving throughout her clinical course and transferred out of the ICU. She is now weaned off of her oxygen throughout the day and is currently using a CPAP at night. Her blood pressures yesterday were 140s systolic throughout the day. She was started on carvedilol 12.5mg BID. 12/26/20: Patient seen and examined at bedside, lying in bed with no acute distress. Denies chest pain, palpitations. Does endorse intermittent shortness of breath but improving. Does have some lightheadedness when walking in room. Patient currently being maintained on aspirin 81mg daily, carvedilol increased 25mg BID, Lasix 40mg BID, hydralazine 50mg Q8hr, Losartan 100mg daily, spironolactone 25mg daily. Blood pressure 182/135, pulse rate 96, respiratory rate 18, afebrile , mainttaining oxygen saturations on room air. Telemetry reviewed Sinus tachycardia with heart rates in the 80s to 90s PHYSICAL EXAM: GENERAL: Well-appearing, well-nourished and in no acute distress. NECK: Supple without JVD or thyromegaly. LUNGS: Breath sounds diminished to auscultation bilaterally. +cough Respiration equal and unlabored. No wheezes, rales or rhonchi. HEART: Regular rate and rhythm without murmurs, rubs or gallops. S1 and S2 heard. EXTREMITIES: Normal range of motion, no edema. No clubbing or cyanosis. Peripheral pulses intact. IMPRESSION: Covid 19 infection Pulmonary edema Acute on chronic diastolic heart failure, EF 65-70% Hypertension, improving Chronic kidney disease Obstructive sleep apnea, on CPAP use PLAN: -Recommend continuing current medication regimen. Continue to monitor blood pressure; slowly resume medications to prevent hypotension that occurred previously this admission in the ICU. Further recommendations pending patient's course Objective - Vital Signs Vital signs: Vital Signs Temp 98.9 F 12/25/20 14:00 Pulse 89 12/25/20 14:00 Resp 16 12/25/20 14:00 BP 145/87 12/25/20 14:00 Pulse Ox 92 L 12/25/20 14:00 Intake & Output 12/24/20 12/25/20 12/25/20 18:59 06:59 18:59 Weight 158.1 kg Other: Voiding Method Toilet Toilet - Labs CBC & Chem 7: 12/23/20 05:25 12/26/20 09:32
[2020-12-26 15:10] LABS: C-ANCA <1:20 Titer (<1:20)
--- NOTE | 2020-12-26 18:58 | PN ---
PROGRESS NOTE DATE OF VISIT: 12/25/2020 CHIEF COMPLAINT: Congestive heart failure and COVID pneumonia. HISTORY OF PRESENT ILLNESS: This lady is doing better and feels better and is not short of breath. Renal function is still a concern. PHYSICAL EXAMINATION: Breath sounds are diminished due to her size. Cardiac exam is normal. The left arm is still edematous. Abdomen is protuberant. IMPRESSION: 1. Congestive heart failure. 2. COVID pneumonia. 3. Lymphedema, left arm. PLAN: Increase activity and await further recommendations from both Cardiology and Nephrology before she will be discharged. MMODL / IJN: [id number] /
--- NOTE | 2020-12-26 19:01 | PN ---
PROGRESS NOTE DATE OF SERVICE: 12/26/2020 CHIEF COMPLAINT: Congestive heart failure, COVID pneumonia, renal failure and edema of the left arm. HISTORY OF PRESENT ILLNESS: This lady is doing a little bit better each day. Shortness of breath has improved. She is probably able to be discharged soon, pending recommendations from Cardiology. She is a poor candidate to do well at home after discharge. MMODL / IJN: [id number] /
[2020-12-27] MEDS: PANTOPRAZOLE 40 MG TABLET PO SCH (07:21)
[2020-12-27] MEDS: hydrALAZINE HCL 50 MG TAB PO SCH ×3 (07:21→23:39)
[2020-12-27] MEDS: LOSARTAN 50 MG TAB PO SCH (07:21)
[2020-12-27] MEDS: FERROUS SULFATE 325 MG TAB PO SCH ×3 (07:21→17:06)
[2020-12-27] MEDS: carvediloL 12.5 MG TAB PO SCH ×2 (07:22→17:06)
[2020-12-27] MEDS: DEXAMETHASONE SOD PHOSPHATE 10 MG/ML 1 ML VIAL PO SCH (07:22)
[2020-12-27] MEDS: ASPIRIN 81 MG PO SCH (07:22)
[2020-12-27] MEDS: ASCORBIC ACID 500 MG TAB PO SCH (07:22)
[2020-12-27] MEDS: ENOXAPARIN 40 MG/0.4 ML SYRINGE SQ SCH (07:22)
[2020-12-27] MEDS: ZINC SULFATE 220 MG CAP PO SCH (07:22)
[2020-12-27] MEDS: FUROSEMIDE 40 MG TAB PO SCH ×2 (07:22→15:14)
[2020-12-27] MEDS: CHOLECALCIFEROL 25 MCG (1000 IU) TABLET PO SCH (07:23)
[2020-12-27] MEDS: SPIRONOLACTONE 25 MG TAB PO SCH (07:23)
[2020-12-27] MEDS: ALBUTEROL HFA INHALER INHALATION SCH ×4 (09:05→20:44)
[2020-12-27] MEDS: SYMBICORT 160-4.5 MCG INHALER INHALATION SCH ×2 (09:05→20:44)
--- NOTE | 2020-12-27 12:28 | P.PN ---
Subjective Patient is seen in follow-up for acute kidney injury and chronic a disease. Renal function a little better today. Good urine output. No chest pain or shortness of breath. Oral intake good. Blood pressure stable this morning. Vital signs are stable. General: The patient appeared well nourished and normally developed. HEENT: Head exam is unremarkable. Neck is without jugular venous distension. LUNGS: Breath sounds decreased. HEART: Rate and Rhythm are regular. ABDOMEN: Soft, obese. EXTREMITITES: No edema. Objective - Vital Signs Vital signs: Vital Signs Temp 98.7 F 12/27/20 08:55 Pulse 88 12/27/20 08:55 Resp 18 12/27/20 08:55 BP 121/78 12/27/20 08:55 Pulse Ox 91 L 12/27/20 08:55 Intake & Output 12/26/20 12/27/20 12/27/20 18:59 06:59 18:59 Weight 153.087 kg Other: Voiding Method Toilet - Labs CBC & Chem 7: 12/23/20 05:25 12/26/20 09:32 Assessment and Plan Plan: Assessment: 1. Acute kidney injury secondary to ATN secondary to covid-19 pneumonia. Renal function a little better today. Creatinine 1.82. 2. Chronic kidney disease stage IIIB with baseline creatinine in the range of 1.4-1.8. 3. Covid 19 pneumonia maintained on steroids and zinc. 4. Hypertension with chronic kidney disease. Stable. 5. Acute on chronic diastolic CHF. 6. Volume overload. Maintained on oral diuretics. 7. Proteinuria. Serologies negative so far. Re-quantify proteinuria outpatient. Will also discuss kidney biopsy. Plan: Maintain oral diuretics. Avoid nephrotoxins. Check renal ultrasound. Follow up outpatient 1 week post discharge.
--- NOTE | 2020-12-27 13:50 | P.PN ---
Subjective The patient is a 45-year-old female with past medical history of congestive heart failure, hypertension, chronic kidney disease, and obstructive sleep apnea who is currently admitted to the hospital for Covid-19 pneumonia. She follows in the office with Dr. Hoyt. We have been consulted for congestive heart failure. Patient was recently admitted on 12/09/20-12/13/20 for congestive heart failure exacerbation. Echocardiogram on 12/10/20 revealed - EF 65-70%, RV is mild to moderately enlarged, left atrium is mildly dilated, milt to moderate TR, severe pulmonary hypertension. She was diuresed with IV lasix, her metoprolol dosing was changed to 75mg in the morning and 25mg in the evening. This admission, she was admitted to the intensive care unit on admission. She was hypertensive, anti-hypertensives were started however patient could not tolerate medication and BP dropped 70s/40s. Her medication regimen has been adjusted slowly. She has been transitioned to PO Lasix. She has been steadily improving throughout her clinical course and transferred out of the ICU. She is now weaned off of her oxygen throughout the day and is currently using a CPAP at night. Her antihypertensives have been restarted. 12/27/20: Patient seen and examined at bedside, lying in bed with no acute distress. Denies chest pain, palpitations, or shortness of breath. Denies lightheadedness or dizziness. Patient currently being maintained on aspirin 81mg daily, carvedilol increased 25mg BID, Lasix 40mg BID, hydralazine 50mg TID, Losartan 100mg daily, spironolactone 25mg daily. Blood pressure BP 121/78 , pulse rate 88, respiratory rate 18, afebrile , maintaining oxygen saturations on room air. Telemetry reviewed Sinus tachycardia with heart rates in the 80s to 90s PHYSICAL EXAM: GENERAL: Well-appearing, well-nourished and in no acute distress. NECK: Supple without JVD or thyromegaly. LUNGS: Breath sounds diminished to auscultation bilaterally. +cough Respiration equal and unlabored. No wheezes, rales or rhonchi. HEART: Regular rate and rhythm without murmurs, rubs or gallops. S1 and S2 heard. EXTREMITIES: Normal range of motion, no edema. No clubbing or cyanosis. Peripheral pulses intact. IMPRESSION: Covid 19 infection Pulmonary edema Acute on chronic diastolic heart failure, EF 65-70% Hypertension, improving Chronic kidney disease Obstructive sleep apnea PLAN: -From cardiology perspective patient is stable for discharge, no further cardiac workup at this time. -Recommend carvedilol 25mg BID, will send prescription to pharmacy -Discontinue metoprolol tartrate. -Continue home medication Lasix 40mg BID, Spironolactone 25mg daily, hydralazine 100mg TID, clonidine 0.3mg TID, and minoxidil 10mg daily. -Patient will follow up with Dr. Hoyt in the outpatient office Objective - Vital Signs Vital signs: Vital Signs Temp 98.7 F 12/27/20 08:55 Pulse 88 12/27/20 08:55 Resp 18 12/27/20 08:55 BP 121/78 12/27/20 08:55 Pulse Ox 91 L 12/27/20 08:55 Intake & Output 12/26/20 12/27/20 12/27/20 18:59 06:59 18:59 Weight 153.087 kg Other: Voiding Method Toilet - Labs CBC & Chem 7: 12/23/20 05:25 12/26/20 09:32
--- NOTE | 2020-12-27 16:21 | US ---
EXAMINATION TYPE: US kidneys/renal and bladder DATE OF EXAM: 12/27/2020 COMPARISON: 06/07/2016 CLINICAL HISTORY: 45-year-old female with acute kidney injury. TECHNIQUE: Multiple sonographic images of the kidneys and bladder are obtained. FINDINGS: Fruit Loader notes: Exam limitations due to body habitus. EXAM MEASUREMENTS: Right Kidney: 9.5 x 4.4 x 4.3 cm Left Kidney: 9.4 x 5.1 x 4.2 cm Right Kidney: Heterogeneous hypoechoic area upper pole measures 2.0 x 1.5 x 1.6 cm . No hydronephrosi s. Left Kidney: No hydronephrosis or masses seen Bladder: No gross abnormality. Bilateral Jets seen: No IMPRESSION: 1. No hydronephrosis. 2. A 2.0 cm heterogeneous lesion in the upper pole of the right kidney could represent a complex cyst or solid mass. As it was not seen on the prior 06/07/2016 ultrasound, further detailed characterizatio n with kidney MRI is recommended.
[2020-12-27 19:39] LABS: LD Isoenzymes 1 33 % (19-38); LD Isoenzymes 2 35 % (30-43); LD Isoenzymes 3 20 % (16-26); LD Isoenzymes 4 7 % (3-12); LD Isoenzymes 5 5 % (3-14); Lactacte Dehydrogenase(LD) ISO 415 U/L (100-200)
--- NOTE | 2020-12-27 21:05 | PN ---
PROGRESS NOTE DATE OF SERVICE: 12/27/2020 CHIEF COMPLAINT: Acute congestive heart failure and COVID pneumonia. HISTORY OF PRESENT ILLNESS: This lady seems to be doing fairly well, but she is still short of breath. She would like to be discharged, but she is tachypneic. She is still being followed by Pulmonology and Cardiology. The likelihood of her doing well is marginal, in the sense that she has not been compliant with managing her problems at home. PHYSICAL EXAMINATION: She still has scattered rales throughout. Cardiac exam is normal. The abdomen is protuberant. IMPRESSION: 1. Acute congestive heart failure. 2. Chronic diastolic and systolic congestive heart failure related to cardiomyopathy. 3. COVID pneumonia. 4. Renal failure. 5. Possible carcinoma of the left breast with lymphedema, left arm. PLAN: Continue to work on a safe discharge plan. MMJOSE AL / CEZARN: [id number] /
[2020-12-28] MEDS: ENALAPRILAT 1.25 MG/ML 1 ML VIAL IVP PRN (02:36)
[2020-12-28] MEDS: SYMBICORT 160-4.5 MCG INHALER INHALATION SCH ×2 (07:09→19:29)
[2020-12-28] MEDS: ALBUTEROL HFA INHALER INHALATION SCH ×4 (07:09→19:29)
[2020-12-28] MEDS: ASPIRIN 81 MG PO SCH (07:51)
[2020-12-28] MEDS: PANTOPRAZOLE 40 MG TABLET PO SCH (07:51)
[2020-12-28] MEDS: SPIRONOLACTONE 25 MG TAB PO SCH (07:51)
[2020-12-28] MEDS: FERROUS SULFATE 325 MG TAB PO SCH ×3 (07:51→16:33)
[2020-12-28] MEDS: ASCORBIC ACID 500 MG TAB PO SCH (07:52)
[2020-12-28] MEDS: FUROSEMIDE 40 MG TAB PO SCH ×2 (07:52→16:33)
[2020-12-28] MEDS: carvediloL 12.5 MG TAB PO SCH ×2 (07:52→16:33)
[2020-12-28] MEDS: LOSARTAN 50 MG TAB PO SCH (07:52)
[2020-12-28] MEDS: ZINC SULFATE 220 MG CAP PO SCH (07:52)
[2020-12-28] MEDS: hydrALAZINE HCL 50 MG TAB PO SCH ×3 (07:53→23:33)
[2020-12-28] MEDS: CHOLECALCIFEROL 25 MCG (1000 IU) TABLET PO SCH (07:53)
[2020-12-28] MEDS: DEXAMETHASONE SOD PHOSPHATE 10 MG/ML 1 ML VIAL PO SCH (07:54)
[2020-12-28] MEDS: ENOXAPARIN 40 MG/0.4 ML SYRINGE SQ SCH (07:54)
--- NOTE | 2020-12-28 11:27 | P.PN ---
Subjective Patient is seen in follow-up for acute kidney injury and chronic a disease. Renal function fairly stable as of yesterday. Good urine output. No chest pain or shortness of breath. Oral intake good. No active complaints. Vital signs are stable. General: The patient appeared well nourished and normally developed. HEENT: Head exam is unremarkable. Neck is without jugular venous distension. LUNGS: Breath sounds decreased. HEART: Rate and Rhythm are regular. ABDOMEN: Soft, obese. EXTREMITITES: No edema. Objective - Vital Signs Vital signs: Vital Signs Temp 99.1 F 12/28/20 09:50 Pulse 93 12/28/20 09:50 Resp 15 12/28/20 09:50 BP 144/105 12/28/20 09:50 Pulse Ox 92 L 12/28/20 09:50 Intake & Output 12/27/20 12/28/20 12/28/20 18:59 06:59 18:59 Weight 150.3 kg Other: Voiding Method Toilet Toilet - Labs CBC & Chem 7: 12/23/20 05:25 12/26/20 09:32 Labs: Abnormal Lab Results - Last 24 Hours (Table) 12/23/20 Range/Units 05:25 LD Isoenzymes 415 H (100-200) U/L Assessment and Plan Plan: Assessment: 1. Acute kidney injury secondary to ATN secondary to covid-19 pneumonia. Renal function stable with creatinine at 1.82 as of December 26. No hydronephrosis noted on kidney ultrasound. 2. Chronic kidney disease stage IIIB with baseline creatinine in the range of 1.4-1.8. 3. Covid 19 pneumonia maintained on steroids and zinc. 4. Hypertension with chronic kidney disease. 5. Acute on chronic diastolic CHF. 6. Volume overload. Maintained on oral diuretics. 7. Proteinuria. Serologies negative so far. Re-quantify proteinuria outpatient. Will also discuss kidney biopsy. 8. Right kidney cyst. Patient will need further urologic workup. Plan: Maintain oral diuretics. Avoid nephrotoxins. Add amlodipine 5 mg once daily. Follow up outpatient 1 week post discharge.
[2020-12-28] MEDS: amLODIPine 5 MG TAB PO SCH (11:33)
[2020-12-28 15:23] VITALS: BMI 55.1
--- NOTE | 2020-12-28 18:21 | PN ---
PROGRESS NOTE CHIEF COMPLAINT: COVID pneumonia, CHF, renal failure, and hypertension. HISTORY OF PRESENT ILLNESS: This lady is doing well and could be discharged, but her blood pressure has risen again. Renal function seems to have stabilized. She is still slightly short of breath, but is improving and she has no chest pain. PHYSICAL EXAMINATION: Chest is quite clear. Cardiac exam is normal. The abdomen is soft and protuberant. IMPRESSION: 1. Acute on chronic congestive heart failure (diastolic). 2. Cardiomyopathy. 3. Morbid obesity. 4. COVID pneumonia. 5. Renal failure. PLAN: Norvasc has been added and will monitor her blood pressure to ensure that it is in a safe range before she is discharged. MMODL / IJN: [id number] /
[2020-12-29] MEDS: CHOLECALCIFEROL 25 MCG (1000 IU) TABLET PO SCH (07:34)
[2020-12-29] MEDS: SPIRONOLACTONE 25 MG TAB PO SCH (07:34)
[2020-12-29] MEDS: carvediloL 12.5 MG TAB PO SCH (07:35)
[2020-12-29] MEDS: amLODIPine 5 MG TAB PO SCH (07:35)
[2020-12-29] MEDS: PANTOPRAZOLE 40 MG TABLET PO SCH (07:35)
[2020-12-29] MEDS: ASPIRIN 81 MG PO SCH (07:35)
[2020-12-29] MEDS: FUROSEMIDE 40 MG TAB PO SCH (07:35)
[2020-12-29] MEDS: FERROUS SULFATE 325 MG TAB PO SCH ×2 (07:35→11:38)
[2020-12-29] MEDS: ZINC SULFATE 220 MG CAP PO SCH (07:36)
[2020-12-29] MEDS: hydrALAZINE HCL 50 MG TAB PO SCH (07:36)
[2020-12-29] MEDS: LOSARTAN 50 MG TAB PO SCH (07:36)
[2020-12-29] MEDS: ASCORBIC ACID 500 MG TAB PO SCH (07:36)
[2020-12-29] MEDS: ENOXAPARIN 40 MG/0.4 ML SYRINGE SQ SCH (07:37)
[2020-12-29] MEDS: DEXAMETHASONE SOD PHOSPHATE 10 MG/ML 1 ML VIAL PO SCH (07:37)
[2020-12-29] MEDS: ALBUTEROL HFA INHALER INHALATION SCH ×2 (08:53→12:18)
[2020-12-29] MEDS: SYMBICORT 160-4.5 MCG INHALER INHALATION SCH (08:53)
[2020-12-29 09:30] VITALS: RESP 20
--- NOTE | 2020-12-29 11:30 | P.PN ---
Subjective Patient is seen in follow-up for acute kidney injury and chronic a disease. Renal function fairly stable. Creatinine 1.8 to as of December 26. Good urine output. No chest pain or shortness of breath. Oral intake good. No active complaints. No changes overnight. Wants to go home. Vital signs are stable. General: The patient appeared well nourished and normally developed. HEENT: Head exam is unremarkable. Neck is without jugular venous distension. LUNGS: Breath sounds decreased. HEART: Rate and Rhythm are regular. ABDOMEN: Soft, obese. EXTREMITITES: No edema. Objective - Vital Signs Vital signs: Vital Signs Temp 97.9 F 12/29/20 09:29 Pulse 63 12/29/20 09:29 Resp 20 12/29/20 09:29 BP 143/85 12/29/20 09:29 Pulse Ox 94 L 12/29/20 09:29 Intake & Output 12/28/20 12/29/20 12/29/20 18:59 06:59 18:59 Weight 150.3 kg 154.2 kg Other: Voiding Method Toilet Toilet - Labs CBC & Chem 7: 12/23/20 05:25 12/26/20 09:32 Assessment and Plan Plan: Assessment: 1. Acute kidney injury secondary to ATN secondary to covid-19 pneumonia. Renal function stable with creatinine at 1.82 as of December 26. No hydronephrosis noted on kidney ultrasound. 2. Chronic kidney disease stage IIIB with baseline creatinine in the range of 1.4-1.8. 3. Covid 19 pneumonia maintained on steroids and zinc. 4. Hypertension with chronic kidney disease. 5. Acute on chronic diastolic CHF. 6. Volume overload. Maintained on oral diuretics. 7. Proteinuria. Serologies negative so far. Re-quantify proteinuria outpatient. Will also discuss kidney biopsy. 8. Right kidney cyst. Patient will need further urologic workup. Plan: Maintain oral diuretics. Avoid nephrotoxins. Follow up outpatient 1 week post discharge.
[2020-12-29 13:56] VITALS: BP 156/98; PULSE 91; TEMP 97.7
--- NOTE | 2020-12-30 06:47 | DS ---
DISCHARGE SUMMARY CHIEF COMPLAINT: Shortness of breath. HISTORY OF PRESENT ILLNESS AND PHYSICAL EXAMINATION: Details of this lady's history and physical can be found in the initial workup. LABORATORY STUDIES: While she was in the hospital she had laboratory studies, details of which can be found in the laboratory section of her chart. COURSE IN THE HOSPITAL: After admission she is placed on bedrest in the Intensive Care Unit because she was admitted with acute pulmonary edema and also had COVID-19. Respiratory issues did not become a significant problem once she was diuresed. She maintained an adequate PO2. She was followed by Intensive Medicine, Cardiology, and then she diuresed. She was able to transferred off the floor. While in the hospital, her blood pressure was significantly elevated, as was her GFR. She is also seen by Nephrology and gradually congestive heart failure was brought under control and her creatinine started to trend down to near normal. Her blood pressures fluctuated, but she gradually improved. We thought that she may require post hospital rehab, but then she developed to the point where it was safe for her to go home. She was also seen by Breast Surgery for the lymphedema in the left arm and there is still a concern that she has an underlying carcinoma in the left breast. She will go home on light activity and she will be followed up in several days by my office and will also follow with nephrology and Cardiology. FINAL DIAGNOSIS: 1. Acute pulmonary edema. 2. Acute on chronic congestive heart failure. 3. Diastolic heart failure. 4. Chronic renal failure. 5. Prerenal azotemia. 6. Cardiorenal syndrome. 7. COVID-19 pneumonia. 8. Morbid obesity. 9. Lymphedema left arm. 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 OPERATIONS: None. CONSULTATION: Intensive Medicine, Cardiology, Nephrology. She is improved. MMODL / IJN: [id number] /
== END 2020-12-29 14:37 | disposition home or self-care (01) | DRG 177 ==
LOC: EC 10:32 → 3SCARD 15:11 → 2SICU 16:42 → 4SSUR 12-23 20:38
PROVIDERS: ADMIT Family Medicine; ATTEND Family Medicine
PROC: XW033E5 Introduction of Remdesivir Anti-infective into Peripheral Vein, Percutaneous Approach, New Technology Group 5 (ICD-10-PCS; principal; 2020-12-19 15:15)
PROC: 5A09457 Assistance with Respiratory Ventilation, 24-96 Consecutive Hours, Continuous Positive Airway Pressure (ICD-10-PCS; 2020-12-22)
PROC: 5A0945A Assistance with Respiratory Ventilation, 24-96 Consecutive Hours, High Flow/Velocity Cannula (ICD-10-PCS; 2020-12-25)
DX: U07.1 COVID-19 (principal); J96.21 Acute and chronic respiratory failure with hypoxia; I50.43 Acute on chronic combined systolic (congestive) and diastolic (congestive) heart failure; J81.0 Acute pulmonary edema; J12.82 Pneumonia due to coronavirus disease 2019; N17.0 Acute kidney failure with tubular necrosis; G93.41 Metabolic encephalopathy; I13.0 Hypertensive heart and chronic kidney disease with heart failure and stage 1 through stage 4 chronic kidney disease, or unspecified chronic kidney disease; I16.1 Hypertensive emergency; Z68.43 Body mass index [BMI] 50.0-59.9, adult; I42.9 Cardiomyopathy, unspecified; J44.0 Chronic obstructive pulmonary disease with (acute) lower respiratory infection; F05 Delirium due to known physiological condition; Z79.52 Long term (current) use of systemic steroids; Z79.82 Long term (current) use of aspirin; I25.10 Atherosclerotic heart disease of native coronary artery without angina pectoris; Z82.49 Family history of ischemic heart disease and other diseases of the circulatory system; E66.01 Morbid (severe) obesity due to excess calories; R77.8 Other specified abnormalities of plasma proteins; I27.20 Pulmonary hypertension, unspecified; G47.33 Obstructive sleep apnea (adult) (pediatric); N18.32 Chronic kidney disease, stage 3b; Z86.718 Personal history of other venous thrombosis and embolism; D50.9 Iron deficiency anemia, unspecified; I95.9 Hypotension, unspecified; E11.65 Type 2 diabetes mellitus with hyperglycemia; E11.22 Type 2 diabetes mellitus with diabetic chronic kidney disease; I89.0 Lymphedema, not elsewhere classified; N28.1 Cyst of kidney, acquired; C50.912 Malignant neoplasm of unspecified site of left female breast; M17.0 Bilateral primary osteoarthritis of knee; Z79.51 Long term (current) use of inhaled steroids; Z91.19 Patient's noncompliance with other medical treatment and regimen
CPT/HCPCS: 36415; 36573; 36600; 71045; 76770; 80048; 80053; 81001; 82550; 82570; 82805; 83605; 83615; 83625; 83735; 83880; 84145; 84156; 84484; 85025; 85379; 85610; 85730; 86038; 86140; 86160; 86255; 86334; 86335; 86706; 86803; 87340; 87635; 93005; 94640; 94660; 94760; 99285

== ENCOUNTER 2021-03-09 13:45 | Inpatient (IN) | payer OTHER ==
--- NOTE | 2021-03-09 14:24 | ED ---
General Adult HPI - General Chief complaint: Shortness of Breath Stated complaint: SOB Time Seen by Provider: 03/09/21 14:05 Source: patient, EMS Mode of arrival: EMS Limitations: no limitations - History of Present Illness Initial comments: 45-year-old female resents to the emergency room for a chief clinic shortness of breath. Patient has a history of CAD, heart failure, hypertension, renal disease, SVT. She reports for the past 3 days her shortness of breath has been worse than normal. Patient states she wears 3 L at home but has been wearing for over the past 3 days. Patient states when he gets hot out she starts to feel like this. She has been doing her breathing treatments but it has not been helping much. Patient reports she is more swollen especially in her legs and abdomen. States she has been taking Lasix but it does not seem to be helping. States short of breath worsens when lying flat. Patient denies fevers.Patient has no other complaints at this time including chest pain, abdominal pain, nausea or vomiting, headache, or visual changes. - Related Data Home Medications Medication Instructions Recorded Confirmed Baclofen [Lioresal] 10 mg PO DAILY PRN 11/05/17 03/09/21 Budesonide/Formoterol Fumarate 2 puff INHALATION RT-BID 11/05/17 03/09/21 [Symbicort 160-4.5 Mcg Inhaler] Omeprazole 20 mg PO DAILY 11/05/17 03/09/21 minoxidiL [Minoxidil] 10 mg PO DAILY 11/05/17 03/09/21 LORazepam [Ativan] 2 mg PO TID PRN 01/04/19 03/09/21 Spironolactone [Aldactone] 25 mg PO DAILY 01/04/19 03/09/21 cloNIDine HCL [Catapres] 0.3 mg PO TID 01/04/19 03/09/21 hydrALAZINE HCL [Apresoline] 100 mg PO TID 01/04/19 03/09/21 Ferrous Sulfate [Iron (65 MG 325 mg PO AC-TID 12/18/20 03/09/21 Elemental)] Albuterol Sulfate [Proair Hfa] 2 puff INHALATION RT-QID PRN 03/09/21 03/09/21 Furosemide [Lasix] 80 mg PO DAILY 03/09/21 03/09/21 Ibuprofen [Motrin] 800 mg PO DAILY 03/09/21 03/09/21 Losartan Potassium 100 mg PO DAILY 03/09/21 03/09/21 Metoprolol Succinate (ER) [Toprol 100 mg PO DAILY 03/09/21 03/09/21 Xl] Previous Rx's Medication Instructions Recorded Aspirin 81 mg PO DAILY #100 chew 01/09/18 amLODIPine [Norvasc] 5 mg PO DAILY #30 tab 12/29/20 Allergies Allergy/AdvReac Type Severity Reaction Status Date / Time No Known Allergies Allergy Verified 03/09/21 16:07 Review of Systems ROS Statement: Those systems with pertinent positive or pertinent negative responses have been documented in the HPI. ROS Other: All systems not noted in ROS Statement are negative. Past Medical History Past Medical History: Coronary Artery Disease (CAD), Chest Pain / Angina, Heart Failure, Hypertension, Osteoarthritis (OA), Renal Disease, Sleep Apnea/CPAP/BIPAP Additional Past Medical History / Comment(s): SVT, sinus pauses, anemia, chronic kidney disease, blood clots-pt stated took xarelto for awhile, arthritis bilateral knees, anemia, constipation, lymphedema History of Any Multi-Drug Resistant Organisms: VRE Date of last positivie culture/infection: 05/03/20 MDRO Source:: VRE URINE Past Surgical History: Section, Hernia Repair Additional Past Surgical History / Comment(s): adominal hernia repair with mesh, cysts removed from stomach Past Anesthesia/Blood Transfusion Reactions: No Reported Reaction Additional Past Anesthesia/Blood Transfusion Reaction / Comment(s): Pt has received blood in the past without reaction. Past Psychological History: Anxiety Smoking Status: Never smoker Past Alcohol Use History: None Reported Past Drug Use History: None Reported - Past Family History Father Family Medical History: Congestive Heart Failure (CHF) Additional Family Medical History / Comment(s): Father from CHF. Mother Family Medical History: Cancer, Hypertension, Sleep Apnea/CPAP/BIPAP Additional Family Medical History / Comment(s): Mother has had cancer removed from ear/head. General Exam Limitations: no limitations General appearance: alert, in no apparent distress Head exam: Present: atraumatic, normocephalic, normal inspection Eye exam: Present: normal appearance, PERRL, EOMI. Absent: scleral icterus, conjunctival injection, periorbital swelling ENT exam: Present: normal exam, mucous membranes moist Neck exam: Present: normal inspection, full ROM. Absent: tenderness, meningismus, lymphadenopathy Respiratory exam: Present: normal lung sounds bilaterally. Absent: respiratory distress, wheezes, rales, rhonchi, stridor Cardiovascular Exam: Present: regular rate, normal rhythm, normal heart sounds. Absent: systolic murmur, diastolic murmur, rubs, gallop, clicks GI/Abdominal exam: Present: soft, normal bowel sounds. Absent: distended, tenderness, guarding, rebound, rigid Extremities exam: Present: pedal edema Course Vital Signs 03/09/21 13:48 Temperature 99.5 F Pulse Rate 110 H Respiratory 20 Rate Blood Pressure 104/91 O2 Sat by Pulse 98 Oximetry EKG Findings - EKG Comments: EKG Findings:: Normal sinus rhythm, ventricular rate 99, MI interval 182, QTC 474 Medical Decision Making - Medical Decision Making Vitals are stable. Patient initially sightly tachycardic and is short of breath. Patient is usually on 3 L nasal cannula at home, is now on for the past few days saturating at 98%. CBC does show leukocytosis which is likely related to pneumonia on x-ray. Patient does have an elevated BNP of 34,900 as well as a mildly elevated troponin 0.057. No chest pain. This will be repeated. Chest x-ray does show evidence of CHF exacerbation. Patient was given 60 mg IV Lasix. Will be admitted. - Lab Data Result diagrams: 03/09/21 14:59 03/09/21 14:59 Lab Results 03/09/21 03/09/21 03/09/21 Range/Units 14:59 14:59 14:59 WBC 18.8 H (3.8-10.6) k/uL RBC 4.93 (3.80-5.40) m/uL Hgb 10.4 L (11.4-16.0) gm/dL Hct 36.8 (34.0-46.0) % MCV 74.6 L (80.0-100.0) fL MCH 21.1 L (25.0-35.0) pg MCHC 28.3 L (31.0-37.0) g/dL RDW 18.3 H (11.5-15.5) % Plt Count 416 (150-450) k/uL MPV 7.5 Neutrophils % 91 % Lymphocytes % 4 % Monocytes % 3 % Eosinophils % 1 % Basophils % 0 % Neutrophils # 17.1 H (1.3-7.7) k/uL Lymphocytes # 0.7 L (1.0-4.8) k/uL Monocytes # 0.5 (0-1.0) k/uL Eosinophils # 0.1 (0-0.7) k/uL Basophils # 0.0 (0-0.2) k/uL Hypochromasia Marked Poikilocytosis Slight Anisocytosis Slight Microcytosis Moderate PT 10.8 (9.0-12.0) sec INR 1.0 (<1.2) APTT 23.1 (22.0-30.0) sec Sodium 139 (137-145) mmol/L Potassium 4.5 (3.5-5.1) mmol/L Chloride 106 (98-107) mmol/L Carbon Dioxide 22 (22-30) mmol/L Anion Gap 11 mmol/L BUN 24 H (7-17) mg/dL Creatinine 1.50 H (0.52-1.04) mg/dL Est GFR (CKD-EPI)AfAm 48 (>60 ml/min/1.73 sqM) Est GFR (CKD-EPI)NonAf 42 (>60 ml/min/1.73 sqM) Glucose 138 H (74-99) mg/dL Plasma Lactic Acid Antony (0.7-2.0) mmol/L Calcium 9.7 (8.4-10.2) mg/dL Magnesium 1.7 (1.6-2.3) mg/dL Total Bilirubin 0.6 (0.2-1.3) mg/dL AST 27 (14-36) U/L ALT 14 (4-34) U/L Alkaline Phosphatase 84 (38-126) U/L Troponin I (0.000-0.034) ng/mL NT-Pro-B Natriuret Pep pg/mL Total Protein 7.9 (6.3-8.2) g/dL Albumin 4.0 (3.5-5.0) g/dL Coronavirus (PCR) (Not Detectd) 03/09/21 03/09/21 03/09/21 Range/Units 14:59 14:59 14:59 WBC (3.8-10.6) k/uL RBC (3.80-5.40) m/uL Hgb (11.4-16.0) gm/dL Hct (34.0-46.0) % MCV (80.0-100.0) fL MCH (25.0-35.0) pg MCHC (31.0-37.0) g/dL RDW (11.5-15.5) % Plt Count (150-450) k/uL MPV Neutrophils % % Lymphocytes % % Monocytes % % Eosinophils % % Basophils % % Neutrophils # (1.3-7.7) k/uL Lymphocytes # (1.0-4.8) k/uL Monocytes # (0-1.0) k/uL Eosinophils # (0-0.7) k/uL Basophils # (0-0.2) k/uL Hypochromasia Poikilocytosis Anisocytosis Microcytosis PT (9.0-12.0) sec INR (<1.2) APTT (22.0-30.0) sec Sodium (137-145) mmol/L Potassium (3.5-5.1) mmol/L Chloride (98-107) mmol/L Carbon Dioxide (22-30) mmol/L Anion Gap mmol/L BUN (7-17) mg/dL Creatinine (0.52-1.04) mg/dL Est GFR (CKD-EPI)AfAm (>60 ml/min/1.73 sqM) Est GFR (CKD-EPI)NonAf (>60 ml/min/1.73 sqM) Glucose (74-99) mg/dL Plasma Lactic Acid Antony 1.9 (0.7-2.0) mmol/L Calcium (8.4-10.2) mg/dL Magnesium (1.6-2.3) mg/dL Total Bilirubin (0.2-1.3) mg/dL AST (14-36) U/L ALT (4-34) U/L Alkaline Phosphatase (38-126) U/L Troponin I 0.057 H* (0.000-0.034) ng/mL NT-Pro-B Natriuret Pep 30293 pg/mL Total Protein (6.3-8.2) g/dL Albumin (3.5-5.0) g/dL Coronavirus (PCR) (Not Detectd) 03/09/21 Range/Units 14:59 WBC (3.8-10.6) k/uL RBC (3.80-5.40) m/uL Hgb (11.4-16.0) gm/dL Hct (34.0-46.0) % MCV (80.0-100.0) fL MCH (25.0-35.0) pg MCHC (31.0-37.0) g/dL RDW (11.5-15.5) % Plt Count (150-450) k/uL MPV Neutrophils % % Lymphocytes % % Monocytes % % Eosinophils % % Basophils % % Neutrophils # (1.3-7.7) k/uL Lymphocytes # (1.0-4.8) k/uL Monocytes # (0-1.0) k/uL Eosinophils # (0-0.7) k/uL Basophils # (0-0.2) k/uL Hypochromasia Poikilocytosis Anisocytosis Microcytosis PT (9.0-12.0) sec INR (<1.2) APTT (22.0-30.0) sec Sodium (137-145) mmol/L Potassium (3.5-5.1) mmol/L Chloride (98-107) mmol/L Carbon Dioxide (22-30) mmol/L Anion Gap mmol/L BUN (7-17) mg/dL Creatinine (0.52-1.04) mg/dL Est GFR (CKD-EPI)AfAm (>60 ml/min/1.73 sqM) Est GFR (CKD-EPI)NonAf (>60 ml/min/1.73 sqM) Glucose (74-99) mg/dL Plasma Lactic Acid Antony (0.7-2.0) mmol/L Calcium (8.4-10.2) mg/dL Magnesium (1.6-2.3) mg/dL Total Bilirubin (0.2-1.3) mg/dL AST (14-36) U/L ALT (4-34) U/L Alkaline Phosphatase (38-126) U/L Troponin I (0.000-0.034) ng/mL NT-Pro-B Natriuret Pep pg/mL Total Protein (6.3-8.2) g/dL Albumin (3.5-5.0) g/dL Coronavirus (PCR) Not Detected (Not Detectd) Disposition Clinical Impression: CHF exacerbation, Elevated brain natriuretic peptide (BNP) level, Elevated troponin, Pneumonia Disposition: ADMITTED IP TO THIS HOSP Is patient prescribed a controlled substance at d/c from ED?: No Referrals: Kevin Stanford MD [Primary Care Provider] - 1-2 days Time of Disposition: 16:24
[2021-03-09 15:10] LABS: Anisocytosis Slight; Basophils % (A) 0 %; Eosinophils # (A) 0.1 k/uL (0-0.7); Eosinophils % (A) 1 %; HCT 36.8 % (34.0-46.0); HGB 10.4 gm/dL (11.4-16.0); Hypochromasia Marked; Lymphocytes # (A) 0.7 k/uL (1.0-4.8); Lymphocytes % (A) 4 %; MCH 21.1 pg (25.0-35.0); MCHC 28.3 g/dL (31.0-37.0); MCV 74.6 fL (80.0-100.0); Mean Platelet Volume 7.5; Microcytosis Moderate; Monocytes # (A) 0.5 k/uL (0-1.0); Monocytes % (A) 3 %; Neutrophils # (A) 17.1 k/uL (1.3-7.7); Neutrophils % (A) 91 %; Platelet Count 416 k/uL (150-450); Poikilocytosis Slight; RBC 4.93 m/uL (3.80-5.40); RDW 18.3 % (11.5-15.5); WBC 18.8 k/uL (3.8-10.6)
[2021-03-09 15:23] LABS: Calcium 9.7 mg/dL (8.4-10.2); Magnesium 1.7 mg/dL (1.6-2.3); Potassium 4.5 mmol/L (3.5-5.1); Total Bilirubin 0.6 mg/dL (0.2-1.3); Total Protein 7.9 g/dL (6.3-8.2)
[2021-03-09 15:30] LABS: Partial Thromboplastin Time 23.1 sec (22.0-30.0); Prothrombin Time 10.8 sec (9.0-12.0)
--- NOTE | 2021-03-09 15:34 | XR ---
EXAMINATION TYPE: XR chest 2V DATE OF EXAM: 03/09/2021 COMPARISON: Chest x-ray December 22, 2020 HISTORY: Difficulty in breathing. TECHNIQUE: Frontal and lateral views of the chest are obtained. FINDINGS: There is persistent cardiomegaly. Persistent mild/moderate central vascular congestion an d interstitial edema. Suboptimal study due to body habitus with persistent poor visualization of left lung base similar to prior. The osseous structures are intact. IMPRESSION: Cardiomegaly with mild/moderate central vascular congestion and interstitial edema. [place] elate for CHF exacerbation. Cannot exclude underlying left basilar acute infiltrate similar to prior.
[2021-03-09] MEDS ORDERED: ACETAMINOPHEN TAB 325 MG TAB PO STA (16:17)
[2021-03-09] MEDS ORDERED: FUROSEMIDE 10 MG/ML 4 ML VIAL IV STA (16:19)
[2021-03-09] MEDS ORDERED: ALBUTEROL NEBULIZED 2.5 MG/3 ML INHALATION PRN (16:21)
[2021-03-09] MEDS ORDERED: AZITHROMYCIN 500 MG in SODIUM CHLORIDE 0.9% 250 ML IVPB STA (16:21)
[2021-03-09] MEDS ORDERED: BACLOFEN 10 MG TAB PO PRN (16:21)
[2021-03-09] MEDS ORDERED: cefTRIAXone IN SWFI 1,000 MG/10 ML SYRINGE IVP STA (16:21)
[2021-03-09] MEDS ORDERED: ONDANSETRON 4 MG/2 ML VIAL IVP STA (17:01)
[2021-03-09 17:51] LABS: Appearance,Urine Clear (Clear); Bilirubin,Urine Negative (Negative); Blood,Urine Negative (Negative); Color,Urine Light Yellow; Glucose,Urine (UA) Negative (Negative); Ketones,Urine Negative (Negative); Leukocyte Esterase,Urine Negative (Negative); Mucus,Urine Rare /hpf; Nitrite,Urine Negative (Negative); Protein,Urine 2+ (Negative); RBC,Urine 1 /hpf (0-5); Specific Gravity,Urine 1.009 (1.001-1.035); Urobilinogen,Urine <2.0 mg/dL (<2.0); WBC,Urine 1 /hpf (0-5)
[2021-03-09] MEDS: FERROUS SULFATE 325 MG TAB PO SCH (18:35)
[2021-03-09] MEDS: cloNIDine HCL 0.1 MG TAB PO SCH (18:35)
[2021-03-09] MEDS: hydrALAZINE HCL 50 MG TAB PO SCH (18:35)
--- NOTE | 2021-03-09 19:55 | HP ---
HISTORY AND PHYSICAL CHIEF COMPLAINT: Shortness of breath. HISTORY OF PRESENT ILLNESS: This is another admission for this 45-year-old obese -[place] female who has a chronic congestive cardiomyopathy. She does fairly well at home and then starts to get more difficulty shortness of breath. She came to the emergency room with shortness of breath and had a BNP of 34,000. [place] [address] and there was a question of an infiltrate. REVIEW OF SYSTEMS: She denies any chest pain, diaphoresis, fever and chills, cough, etc. Past medical history, family history, personal and social history reveals that she has recently been through an episode of SARs COV2. She has chronic kidney disease, history of cardiac arrhythmia, history of a GI bleed, acute pulmonary edema and respiratory failure. She does not have diabetes. CURRENT MEDICATIONS: Ativan 2 mg t.i.d. p.r.n., clonidine 0.3 t.i.d., minoxidil 10 mg once a day, hydralazine 100 mg t.i.d., spironolactone 25 once a day, Lasix 80 mg once a day, omeprazole 20 once a day, carvedilol 25 twice a day, amlodipine 5 mg once a day, losartan 100 mg once a day, baclofen, ibuprofen, atorvastatin 40 q.h.s., and Symbicort 160/4.5 two puffs b.i.d. She has never been a smoker. PHYSICAL EXAMINATION: Blood pressure is 104/91 with a pulse of 89 and regular, and respirations were 36. In general she appeared to be morbidly obese. Skin was dry. Head, ears, eyes, nose, mouth and throat were normal. Chest demonstrated poor breath sounds with scattered rales and expiratory wheezing. Cardiac exam demonstrates sinus tachycardia. Abdomen is protuberant. Extremities are normal. Neurologically, she is intact. IMPRESSION: She is admitted to the hospital with diagnoses: 1. Acute congestive heart failure. 2. Chronic congestive heart failure. 3. Dilated cardiomyopathy. 4. Renal failure. PLAN: 1. Bedrest. 2. IV fluids. 3. Diuresis. MMODL / CEZARN: [id number] /
[2021-03-09] MEDS: SYMBICORT 160-4.5 MCG INHALER INHALATION SCH (21:49)
[2021-03-09] MEDS: ENALAPRILAT 1.25 MG/ML 1 ML VIAL IVP PRN (23:41)
[2021-03-10] MEDS: PANTOPRAZOLE 40 MG TABLET PO SCH (06:46)
[2021-03-10] MEDS: FERROUS SULFATE 325 MG TAB PO SCH ×3 (06:46→16:36)
[2021-03-10] MEDS: SYMBICORT 160-4.5 MCG INHALER INHALATION SCH ×2 (08:07→21:42)
[2021-03-10] MEDS ORDERED: cefTRIAXone IN SWFI 1,000 MG/10 ML SYRINGE IVP SCH (09:00)
[2021-03-10] MEDS: FUROSEMIDE 10 MG/ML 4 ML VIAL IV SCH ×3 (09:08→23:50)
[2021-03-10] MEDS: METOPROLOL SUCCINATE (ER) 100 MG TAB.ER.24H PO SCH (09:09)
[2021-03-10] MEDS: cloNIDine HCL 0.1 MG TAB PO SCH ×3 (09:09→20:42)
[2021-03-10] MEDS: SPIRONOLACTONE 25 MG TAB PO SCH (09:10)
[2021-03-10] MEDS: amLODIPine 5 MG TAB PO SCH (09:10)
[2021-03-10] MEDS: LOSARTAN 50 MG TAB PO SCH (09:10)
[2021-03-10] MEDS: hydrALAZINE HCL 50 MG TAB PO SCH ×3 (09:10→20:42)
[2021-03-10] MEDS: ASPIRIN 81 MG PO SCH (09:10)
[2021-03-10] MEDS: LORazepam 1 MG TAB PO PRN (09:13)
[2021-03-10] MEDS: ENALAPRILAT 1.25 MG/ML 1 ML VIAL IVP PRN (10:45)
--- NOTE | 2021-03-10 11:04 | CONS ---
CONSULTATION CHIEF COMPLAINT: Elevated troponin. HISTORY OF PRESENT ILLNESS: Ankita is a 45-year-old lady with history of hypertension, chronic congestive heart failure, morbid obesity, who presented to hospital complaining of shortness of breath, leg edema and weight gain. She has known chronic diastolic heart failure and known severe pulmonary hypertension. At the time of my evaluation, she appears comfortable at rest and is not in respiratory distress. She has had 3 sets of troponins that have all come back slightly elevated at 0.05, 0.07 and 0.08. The BNP is elevated at 34,900. The troponin elevation is probably due to a combination of renal insufficiency and a type 2 myocardial infarction in a patient with congestive heart failure. The coronavirus test is negative. Chest x-ray showed cardiomegaly with evidence of congestive heart failure. An EKG on her shows sinus rhythm with changes suggestive of left ventricular hypertrophy. PAST MEDICAL HISTORY: Significant for hypertensive heart disease, chronic diastolic heart failure, morbid obesity, COPD, and severe pulmonary hypertension. CURRENT MEDICATIONS: Include minoxidil 10 mg daily, hydralazine 100 t.i.d., Catapres 0.3 mg t.i.d., Norvasc 5 mg daily, Aldactone, omeprazole, Toprol-XL 100 mg daily, losartan 100 daily, Ativan, Motrin, Lasix, iron, aspirin, albuterol. ALLERGIES: There are no known drug allergies. FAMILY HISTORY: Negative for premature coronary artery disease. SOCIAL HISTORY: Negative for current smoking, EtOH abuse, or drug abuse. REVIEW OF SYSTEMS: HEENT is unremarkable. Cardiac as described above. Respiratory as described above. GI negative. negative. Allergy/Immunology: Negative. Skin negative. Musculoskeletal significant for arthritis. Psychosocial negative. Endocrine negative. Derm negative. Constitutional negative. Oncological negative. CAN CLOSING MACHINE TENDER negative. Rest of the system review is not relevant. EXAM: Heart rate is 80 beats per minute, blood pressure is 178/118, respiratory rate is 18, O2 saturation is 100% on room air. There is no jugular venous distention. Carotid upstroke is normal. There is no bruit. Chest exam reveals diminished air entry at the bases with occasional crackles. Heart exam reveals first and second heart sounds. An S4 is heard. ABDOMEN: Soft. Examination of extremities reveals bilateral pitting edema. LAB: Show that the hemoglobin is 10.4, white cell count is elevated. Potassium is 4.5 creatinine is 1.5. Troponins are elevated. BNP is 34,900. EKG shows changes of left ventricular hypertrophy. ASSESSMENT: 1. Acute exacerbation of chronic diastolic heart failure. 2. Hypertensive heart disease. 3. Elevated troponin. PLAN: 1. Please control patient's blood pressure optimally. 2. I will obtain a 2D echo to document her LV function. 3. We will treat the patient with IV Lasix 40 mg q.8 hours. MMODL / IJN: [id number] /
[2021-03-10 11:19] LABS: Albumin 3.5 g/dL (3.5-5.0); Calcium 9.1 mg/dL (8.4-10.2); Potassium 4.7 mmol/L (3.5-5.1); Total Bilirubin 0.4 mg/dL (0.2-1.3); Total Protein 7.3 g/dL (6.3-8.2)
[2021-03-10 11:23] LABS: Anisocytosis Slight; Basophils % (A) 0 %; Eosinophils % (A) 0 %; HCT 36.1 % (34.0-46.0); HGB 9.5 gm/dL (11.4-16.0); Hypochromasia Marked; Lymphocytes # (A) 0.8 k/uL (1.0-4.8); Lymphocytes % (A) 7 %; MCH 20.4 pg (25.0-35.0); MCHC 26.3 g/dL (31.0-37.0); MCV 77.3 fL (80.0-100.0); Mean Platelet Volume 9.9; Microcytosis Slight; Monocytes # (A) 0.5 k/uL (0-1.0); Monocytes % (A) 4 %; Neutrophils # (A) 9.8 k/uL (1.3-7.7); Neutrophils % (A) 87 %; Platelet Count 332 k/uL (150-450); Poikilocytosis Slight; RBC 4.67 m/uL (3.80-5.40); RDW 18.3 % (11.5-15.5); WBC 11.2 k/uL (3.8-10.6)
--- NOTE | 2021-03-10 12:01 | CDI ---
Documentation Clarification Form Date: 03/10/2021 11:18:05 AM From: Rama Phipps RN CCDS Admit Date: 03/09/2021 04:12:00 PM Patient Name: Ankita Sorto Visit Number: [id number] Discharge Date: ATTENTION: The Clinical Documentation Specialists (CDI) and [facility] Coding Staff appreciate your assistance in clarifying documentation. Please respond to the clarification below the line at the bottom and electronically sign. The CDI & [facility] Coding staff will review the response and follow-up if needed. Please note: Queries are made part of the Legal Health Record. If you have any questions, please contact the author of this message via ITS. Dr. Kevin Stanford Your patient is receiving the following: Oxygen via nasal cannula 03/09 to current. Please clarify what condition/diagnosis is being treated. History/Risk Factors: 45-year-old female presents to the ED via EMS for shortness of breath, worse while laying flat. Medical History: CAD, CHF, Sleep Apnea with CPAP/BIPAP and Renal Disease. ED Note 03/09. Clinical indicators: Patient states she wears 3L at home ED Note 03/09. Vss: 03/09 13:48 B/P 104/91, HR 110, Temp 99.5 F Oral, RR 20, SpO2 98% 4L nasal cannula SpO2: 03/09 23:20 RR 18 SpO2 99% 3L nasal cannula. SpO2: 03/10 08:03 RR 18 SpO2 100% room air Lung exam: Chest demonstrated poor breath sounds with scattered rales and expiratory wheezing. H&P 03/09. CXR: 03/09 Cardiomegaly with mild / moderate central vascular congestion and interstitial edema. Cannot exclude underlying left basilar acute infiltrate. Treatment: 03/09 03/10 Oxygen 3L to 4L; 03/09 Symbicort 160-4.5Mcg Inhaler BID to current; 03/09 Ventolin Nebulized 2.5mg Inhalation QID PRN to current. What diagnosis are you treating with Oxygen? [ ] Acute on chronic respiratory failure [ ] Acute respiratory failure [ ] Chronic respiratory failure [ ] No additional diagnosis [ ] Other, please specify [ ] Unable to determine (Template Last Reviewed: October 2020) ZEB
--- NOTE | 2021-03-10 12:11 | CDI ---
Documentation Clarification Form Date: 03/10/2021 12:01:39 PM From: Rama Phipps RN CCDS Admit Date: 03/09/2021 04:12:00 PM Patient Name: Ankita Sorto Visit Number: [id number] Discharge Date: ATTENTION: The Clinical Documentation Specialists (CDI) and [facility] Coding Staff appreciate your assistance in clarifying documentation. Please respond to the clarification below the line at the bottom and electronically sign. The CDI & [facility] Coding staff will review the response and follow-up if needed. Please note: Queries are made part of the Legal Health Record. If you have any questions, please contact the author of this message via ITS. Dr. Kevin Stanford Pneumonia is documented ED Note 03/09 but is not noted in subsequent documentation. Clarification is requested. History/Risk Factors: 45-year-old female presents to the ED via EMS for shortness of breath, worse while lying flat. Medical History: CAD, CHF, Sleep Apnea with CPAP/BIPAP and Renal Disease. ED Note 03/09. Clinical Indicators: VSS: 03/09 13:48 B/P 104/91, HR 110, Temp 99.5 F Oral, RR 20, SpO2 98% 4L nasal cannula CXR: 03/09 Cardiomegaly with mild / moderate central vascular congestion and interstitial edema. Cannot exclude underlying left basilar acute infiltrate. Lung exam: Chest demonstrated poor breath sounds with scattered rales and expiratory wheezing. H&P 03/09. Treatment: 03/09 03/10 Oxygen 3L to 4L; 03/09 Symbicort 160-4.5Mcg Inhaler BID to current; 03/09 Ventolin Nebulized 2.5mg Inhalation QID PRN to current; 03/09 Azithromycin 500mg IVPB x 1; 03/09 Rocephin 1,000mg IVP x 1; 03/10 Azithromycin 500mg IVPB Q24H to current; 03/10 Rocephin 1gm IVPB Q24HR to current. Please clarify if the Pneumonia is: [ ] Pneumonia confirmed, remains under treatment [ ] Pneumonia confirmed, resolved [ ] Pneumonia ruled out [ ] Other condition, please specify [ ] Unable to determine (Template Last Revised: November 2020) MTDD
[2021-03-10] MEDS ORDERED: AZITHROMYCIN 500 MG in SODIUM CHLORIDE 0.9% 250 ML IVPB SCH (16:00)
[2021-03-11] MEDS: PANTOPRAZOLE 40 MG TABLET PO SCH (06:24)
[2021-03-11] MEDS: FERROUS SULFATE 325 MG TAB PO SCH ×3 (06:24→18:53)
[2021-03-11] MEDS: ACETAMINOPHEN TAB 325 MG TAB PO PRN ×2 (06:56→22:49)
[2021-03-11] MEDS: SYMBICORT 160-4.5 MCG INHALER INHALATION SCH ×2 (08:29→21:12)
[2021-03-11] MEDS: hydrALAZINE HCL 50 MG TAB PO SCH ×2 (08:52→16:42)
[2021-03-11] MEDS: LOSARTAN 50 MG TAB PO SCH (08:52)
[2021-03-11] MEDS: METOPROLOL SUCCINATE (ER) 100 MG TAB.ER.24H PO SCH (08:52)
[2021-03-11] MEDS: amLODIPine 5 MG TAB PO SCH (08:52)
[2021-03-11] MEDS: SPIRONOLACTONE 25 MG TAB PO SCH (08:53)
[2021-03-11] MEDS: ASPIRIN 81 MG PO SCH (08:53)
[2021-03-11] MEDS: FUROSEMIDE 10 MG/ML 4 ML VIAL IV SCH ×2 (08:53→21:32)
[2021-03-11] MEDS: cloNIDine HCL 0.1 MG TAB PO SCH ×2 (08:53→16:42)
--- NOTE | 2021-03-11 11:49 | P.PN ---
Subjective Progress Note Date: 03/11/21 HISTORY OF PRESENT ILLNESS: 45-year-old female with a history of chronic diastolic heart failure, chronic kidney disease, and severe pulmonary hypertension. Patient is admitted to the hospital secondary to exacerbation of CHF. Patient examined this morning at the bedside. Patient continues to have lower extremity edema. Patient states her breathing has improved slightly. She remains on IV Lasix 40 mg every 8 hours. Fluid balance over the last 24 hours is -2.4 L. Patient's creatinine today 1.8, up from 1.5 yesterday. PHYSICAL EXAM: VITAL SIGNS: Reviewed. GENERAL: Well-developed in no acute distress. NECK: Supple. No JVD or thyromegaly LUNGS: Respirations even and unlabored. Lungs diminished bilaterally. HEART: Regular rate and rhythm. S1 and S2 heard. EXTREMITIES: Normal range of motion. No clubbing or cyanosis. Peripheral pulses intact. 2+ bilateral lower extremity edema ASSESSMENT: Acute exacerbation of chronic diastolic heart failure Hypertension Acute on chronic kidney disease PLAN: Continue IV Lasix. We'll decrease dose to every 12 hours due to increased creatinine today. Continue daily weights and accurate I&O. Monitor kidney function. Further recommendations pending patient's course Nurse practitioner note has been reviewed by physician. Signing provider agrees with the documented findings, assessment, and plan of care. Objective - Vital Signs Vital signs: Vital Signs Temp 98.8 F 03/11/21 08:50 Pulse 86 03/11/21 08:50 Resp 18 03/11/21 08:50 BP 124/62 03/11/21 08:50 Pulse Ox 99 03/11/21 08:50 Intake & Output 03/10/21 03/11/21 03/11/21 18:59 06:59 18:59 Intake Total 100 360 Output Total 1000 1500 575 Balance -1000 -1400 -215 Weight 170.097 kg 168.3 kg Intake: Oral 100 360 Output: Urine 1000 1500 575 Other: Voiding Method Toilet Indwelling Catheter Indwelling Catheter - Labs CBC & Chem 7: 03/10/21 10:41 03/10/21 10:41 Labs: Microbiology - Last 24 Hours (Table) 03/09/21 16:24 Blood Culture - Preliminary Blood No Growth after 24 hours 03/09/21 16:24 Blood Culture - Preliminary Blood No Growth after 24 hours
[2021-03-11 13:25] VITALS: BMI 58.1
[2021-03-11] MEDS: AZITHROMYCIN 500 MG TAB PO SCH (16:23)
--- NOTE | 2021-03-11 17:08 | P.PN ---
Subjective Progress Note Date: 03/11/21 Principal diagnosis: Acute exacerbation diastolic CHF Acute on chronic kidney disease 45-year-old female patient admitted to the hospital with acute exacerbation of CHF and acute worsening of chronic kidney disease 03/11/2021 Patient is seen and evaluated in room at bedside; does report some improvement in breathing but continues to have swelling both lower extremity Vital signs are reviewed and stable with a temperature of 98.8, pulse 56, respiration 18 and blood pressure 124/62 with SpO2 of 99% No new Labs for this morning; BUN/creatinine of 28/1.87 from yesterday Patient is currently on Lasix 40 mg IV every 8 hours; cardiology following and recommending to decrease the dose to every 12 hours due to elevated creatinine; we will continue to monitor strict KEENAN's, daily weights, renal function and electrolytes; avoid nephrotoxic agents and hypotension Objective - Vital Signs Vital signs: Vital Signs Temp 98.8 F 03/11/21 08:50 Pulse 86 03/11/21 08:50 Resp 18 03/11/21 08:50 BP 124/62 03/11/21 08:50 Pulse Ox 99 03/11/21 08:50 Intake & Output 03/10/21 03/11/21 03/11/21 18:59 06:59 18:59 Intake Total 100 360 Output Total 1000 1500 Balance -1000 -1400 360 Weight 170.097 kg 168.3 kg Intake: Oral 100 360 Output: Urine 1000 1500 Other: Voiding Method Toilet Indwelling Catheter - Exam General appearance: Present: average body habitus, cooperative, no acute distress Neck: Present: normal ROM. Absent: lymphadenopathy, rigidity, thyromegaly Carotids: negative: bruit present Thyroid: bilateral: normal size, negative: enlarged, nodule Respiratory: bilateral: CTA, negative: rales, rhonchi, wheezing Heart sounds: normal: S1, S2 Abnormal Heart Sounds: Absent: systolic murmur, diastolic murmur General gastrointestinal: Present: normal bowel sounds, soft. Absent: distended, organomegaly, tenderness Musculoskeletal: Present: gait normal, strength equal bilaterally Psychiatric: Present: A&O x's 3, appropriate affect, intact judgment & insight - Labs CBC & Chem 7: 03/10/21 10:41 03/10/21 10:41 Labs: Abnormal Lab Results - Last 24 Hours (Table) 03/10/21 03/10/21 Range/Units 10:41 10:41 WBC 11.2 H (3.8-10.6) k/uL Hgb 9.5 L (11.4-16.0) gm/dL MCV 77.3 L (80.0-100.0) fL MCH 20.4 L (25.0-35.0) pg MCHC 26.3 L (31.0-37.0) g/dL RDW 18.3 H (11.5-15.5) % Neutrophils # 9.8 H (1.3-7.7) k/uL Lymphocytes # 0.8 L (1.0-4.8) k/uL BUN 28 H (7-17) mg/dL Creatinine 1.87 H (0.52-1.04) mg/dL Glucose 104 H (74-99) mg/dL Microbiology - Last 24 Hours (Table) 03/09/21 16:24 Blood Culture - Preliminary Blood No Growth after 24 hours 03/09/21 16:24 Blood Culture - Preliminary Blood No Growth after 24 hours Assessment and Plan Assessment: 1. Acute exacerbation diastolic CHF - Cardiology on board and recommending to decrease Lasix to 40 mg IV every 12 hours due to increased creatinine; we'll continue to monitor strict KEENAN's, daily weights, continue with low-salt and fluid restricted diet; patient remains on Aldactone 25 mg daily 2. Acute on chronic kidney disease; no IV fluid hydration due to acute CHF; IV Lasix has been decreased to every 12 hours; we will monitor strict KEENAN's, daily weights, renal function and electrolytes; avoid nephrotoxins and hypotension 3. Hypertension; metoprolol 100 mg daily; minoxidil 10 mg daily 4. Possible basilar infiltrate; patient remains on IV Rocephin and azithromycin; we will monitor CBC, CRP, pro-calcitonin; recommend discontinuing antibiotics if pro-calcitonin and CRP is unremarkable DVT prophylaxis; SCDs CODE STATUS; full code
[2021-03-11] MEDS: LORazepam 1 MG TAB PO PRN (20:03)
[2021-03-12] MEDS ORDERED: HYDROmorphone 0.5 MG/0.5 ML SYRINGE IVP PRN (00:01)
[2021-03-12] MEDS: PANTOPRAZOLE 40 MG TABLET PO SCH (06:52)
[2021-03-12] MEDS: FERROUS SULFATE 325 MG TAB PO SCH ×3 (06:52→17:28)
[2021-03-12] MEDS: SYMBICORT 160-4.5 MCG INHALER INHALATION SCH ×2 (08:01→21:02)
--- NOTE | 2021-03-12 08:54 | P.PN ---
Subjective Progress Note Date: 03/12/21 HISTORY OF PRESENT ILLNESS: 45-year-old female with a history of chronic diastolic heart failure, chronic kidney disease, and severe pulmonary hypertension. Patient is admitted to the hospital secondary to exacerbation of CHF. Patient examined this morning at the bedside. Patient continues to have lower extremity edema. Patient states her breathing has improved slightly. She remains on IV Lasix 40 mg every 8 hours. Fluid balance over the last 24 hours is -2.4 L. Patient's creatinine today 1.8, up from 1.5 yesterday. 03/12/2021 Patient examined this morning at the bedside. Patient reports an episode of chest pain overnight. She is unable to describe the pain or go into further detail about the pain this morning when asked. She states the pain was relieved with IV Dilaudid. She denies any chest pain or pressure. She remains on IV lasix. Patient denies any shortness of breath at this time. Patient states she has not been out of bed and ambulating however. She has an indwelling Headley catheter. BMP from this morning is currently pending. Lasix dose was decreased yesterday to every 12 hours secondary to ANGUS. PHYSICAL EXAM: VITAL SIGNS: Reviewed. GENERAL: Well-developed in no acute distress. NECK: Supple. No JVD or thyromegaly LUNGS: Respirations even and unlabored. Lungs diminished bilaterally. HEART: Regular rate and rhythm. S1 and S2 heard. EXTREMITIES: Normal range of motion. No clubbing or cyanosis. Peripheral pulses intact. 1+ bilateral lower extremity edema ASSESSMENT: Acute exacerbation of chronic diastolic heart failure Hypertension Acute on chronic kidney disease Obstructive sleep apnea with CPAP use at home History of Covid 19 PLAN: Continue IV Lasix Continue daily weights and accurate I&O Monitor kidney function. Await BMP results from this morning Discontinue headley catheter. Increase activity as tolerated Further recommendations pending patient's course Nurse practitioner note has been reviewed by physician. Signing provider agrees with the documented findings, assessment, and plan of care. Objective - Vital Signs Vital signs: Vital Signs Temp 98.2 F 03/12/21 04:00 Pulse 100 03/12/21 04:00 Resp 18 03/12/21 04:00 BP 94/52 03/12/21 04:00 Pulse Ox 97 03/12/21 04:00 Intake & Output 03/11/21 03/12/21 03/12/21 18:59 06:59 18:59 Intake Total 1920 Output Total 575 300 Balance 1345 -300 Weight 168.3 kg 162.386 kg Intake: Oral 0 Output: Urine 575 300 Other: Voiding Method Indwelling Catheter Indwelling Catheter - Labs CBC & Chem 7: 03/10/21 10:41 03/10/21 10:41 Labs: Microbiology - Last 24 Hours (Table) 03/09/21 16:24 Blood Culture - Preliminary Blood No Growth after 48 hours 03/09/21 16:24 Blood Culture - Preliminary Blood No Growth after 48 hours
[2021-03-12 09:07] LABS: Calcium 8.8 mg/dL (8.4-10.2); Potassium 4.3 mmol/L (3.5-5.1)
[2021-03-12] MEDS: ASPIRIN 81 MG PO SCH (09:08)
[2021-03-12] MEDS: FUROSEMIDE 10 MG/ML 4 ML VIAL IV SCH (09:08)
[2021-03-12] MEDS: METOPROLOL SUCCINATE (ER) 100 MG TAB.ER.24H PO SCH (09:09)
[2021-03-12] MEDS: SPIRONOLACTONE 25 MG TAB PO SCH (09:09)
[2021-03-12 09:36] LABS: Anisocytosis Slight; Basophils % (A) 1 %; Eosinophils # (A) 0.1 k/uL (0-0.7); Eosinophils % (A) 1 %; HGB 9.7 gm/dL (11.4-16.0); Hypochromasia Marked; Lymphocytes # (A) 1.2 k/uL (1.0-4.8); Lymphocytes % (A) 14 %; MCH 21.1 pg (25.0-35.0); MCHC 27.6 g/dL (31.0-37.0); MCV 76.6 fL (80.0-100.0); Mean Platelet Volume 8.4; Microcytosis Slight; Monocytes # (A) 0.5 k/uL (0-1.0); Monocytes % (A) 6 %; Neutrophils # (A) 6.7 k/uL (1.3-7.7); Neutrophils % (A) 77 %; Platelet Count 327 k/uL (150-450); Poikilocytosis Slight; RBC 4.57 m/uL (3.80-5.40); RDW 18.4 % (11.5-15.5); WBC 8.7 k/uL (3.8-10.6)
[2021-03-12 09:47] LABS: C Reactive Protein 2.6 mg/dL (<1.0)
[2021-03-12] MEDS: AZITHROMYCIN 500 MG TAB PO SCH (15:22)
[2021-03-13] MEDS: PANTOPRAZOLE 40 MG TABLET PO SCH (06:35)
[2021-03-13] MEDS: FERROUS SULFATE 325 MG TAB PO SCH ×3 (06:35→16:26)
[2021-03-13] MEDS: SYMBICORT 160-4.5 MCG INHALER INHALATION SCH ×2 (07:55→19:15)
[2021-03-13] MEDS: SPIRONOLACTONE 25 MG TAB PO SCH (08:25)
[2021-03-13] MEDS: FUROSEMIDE 40 MG TAB PO SCH (08:25)
[2021-03-13] MEDS: ASPIRIN 81 MG PO SCH (08:25)
[2021-03-13] MEDS: METOPROLOL SUCCINATE (ER) 100 MG TAB.ER.24H PO SCH (08:25)
--- NOTE | 2021-03-13 11:25 | P.PN ---
Subjective This is a pleasant 45-year-old -Faro[place] female past medical history significant for hypertension, chronic diastolic heart failure, pulmonary hypertension, chronic kidney disease, obstructive sleep apnea and morbid obesity. She does not follow regularly with a international first officer. She is seen and examined sitting up in no acute distress. She denies symptoms of shortness of breath. She is complaining of ongoing lower extremity swelling and heaviness. She is concerned about her fluctuating blood pressures. Current blood pressure 120/72 heart rate 111. Telemetry tracings reveal sinus tachycardia. No acute arrhythmias noted. Most of her blood pressure medications are currently on hold secondary to hypotension and worsening renal function. Laboratory data pending. Currently maintained on Lasix 40 mg by mouth daily, Aldactone 25 mg daily, minoxidil 10 mg daily and Toprol-XL 100 mg daily. GENERAL: Well-appearing, well-nourished and in no acute distress. Morbidly obese. NECK: Supple without JVD or thyromegaly. LUNGS: Breath sounds clear to auscultation bilaterally. Respiration equal and unlabored. No wheezes, rales or rhonchi. HEART: Regular rate and rhythm with systolic ejection murmur at the base, no rubs or gallops. S1 and S2 heard. EXTREMITIES: Normal range of motion, bilateral lower extremity nonpitting edema. No clubbing or cyanosis. Peripheral pulses intact. ASSESSMENT Acute on chronic diastolic heart failure Acute kidney injury Hypertension with episodes of hypotension Nausea, vomiting and diarrhea Pulmonary hypertension, severe Obstructive sleep apnea Morbid obesity, BMI 58 PLAN Discontinue minoxidil. Continue Toprol, Lasix and Aldactone as previously ordered. Consider nephrology evaluation. Nurse Practitioner note has been reviewed, I agree with a documented findings and plan of care. Patient was seen and examined. Objective - Vital Signs Vital signs: Vital Signs Temp 97.6 F 03/13/21 08:32 Pulse 111 H 03/13/21 08:32 Resp 18 03/13/21 08:32 BP 120/72 03/13/21 08:32 Pulse Ox 95 03/13/21 08:32 Intake & Output 03/12/21 03/13/21 03/13/21 18:59 06:59 18:59 Intake Total 240 Output Total 1000 400 250 Balance -1000 -400 -10 Weight 170.4 kg Intake: Oral 240 Output: Urine 1000 400 250 Uretheral (Colon) 400 Other: Voiding Method Bedside Commode Bedside Commode # Voids 1 - Labs CBC & Chem 7: 03/12/21 08:15 03/12/21 08:15 Labs: Abnormal Lab Results - Last 24 Hours (Table) 03/12/21 Range/Units 08:15 Procalcitonin 0.35 H (0.02-0.09) ng/mL Microbiology - Last 24 Hours (Table) 03/09/21 16:24 Blood Culture - Preliminary Blood No Growth after 72 hours 03/09/21 16:24 Blood Culture - Preliminary Blood No Growth after 72 hours
[2021-03-13] MEDS: ACETAMINOPHEN TAB 325 MG TAB PO PRN (11:51)
[2021-03-13] MEDS: AZITHROMYCIN 500 MG TAB PO SCH (16:21)
--- NOTE | 2021-03-13 17:28 | MISC ---
MISCELLANOUS REPORT Acute on chronic respiratory failure. MMODL / IJN: [id number] /
--- NOTE | 2021-03-13 17:28 | MISC ---
MISCELLANOUS REPORT Pneumonia confirmed, remains under treatment. MMODL / IJN: [id number] /
--- NOTE | 2021-03-13 20:05 | PN ---
PROGRESS NOTE DATE OF SERVICE: 03/13/2021 CHIEF COMPLAINT: Congestive heart failure, morbid obesity with renal failure. HISTORY OF PRESENT ILLNESS: This lady is doing fairly well. She is still dyspneic. Renal function still elevated. PHYSICAL EXAMINATION: Vital signs are normal. Chest demonstrates decreased breath sounds due to her obesity. It was scattered rales. Cardiac exam is normal. The abdomen is protuberant and soft. IMPRESSION: 1. Acute on chronic hernandez systolic and diastolic congestive heart failure. 2. Renal failure. 3. Morbid obesity. PLAN: Continue to try to progress diuresis and continue to monitor renal function. MMODL / IJN: [id number] /
[2021-03-14] MEDS: ACETAMINOPHEN TAB 325 MG TAB PO PRN ×2 (04:08→15:51)
--- NOTE | 2021-03-14 05:34 | PN ---
PROGRESS NOTE DATE OF SERVICE: 03/10/2021 CHIEF COMPLAINT: Congestive heart failure. HISTORY OF PRESENT ILLNESS: This lady continues to have nausea and she has had some vomiting and diarrhea. Breathing is improved with her diuresis. PHYSICAL EXAM: Cardiac exam is unchanged with the tachycardia. Chest is fairly clear with scattered rales. Abdomen remains protuberant and nontender. Bowel sounds are present. IMPRESSION: 1. Acute exacerbation of chronic congestive heart failure. 2. Cardiomyopathy. 3. Nausea and vomiting. PLAN: Continue with IV fluids and start antiemetics. Congestive heart failure is improving. MMODL / IJN: [id number] /
[2021-03-14] MEDS: PANTOPRAZOLE 40 MG TABLET PO SCH (06:31)
[2021-03-14] MEDS: FERROUS SULFATE 325 MG TAB PO SCH ×3 (06:31→17:45)
[2021-03-14 07:39] LABS: Calcium 8.9 mg/dL (8.4-10.2); Potassium 4.3 mmol/L (3.5-5.1)
[2021-03-14] MEDS: SYMBICORT 160-4.5 MCG INHALER INHALATION SCH (07:42)
[2021-03-14] MEDS: ASPIRIN 81 MG PO SCH (08:09)
[2021-03-14] MEDS: METOPROLOL SUCCINATE (ER) 100 MG TAB.ER.24H PO SCH (08:09)
[2021-03-14] MEDS: FUROSEMIDE 40 MG TAB PO SCH (08:09)
[2021-03-14] MEDS: SPIRONOLACTONE 25 MG TAB PO SCH (08:09)
[2021-03-14] MEDS ORDERED: amLODIPine 5 MG TAB PO SCH (09:00)
[2021-03-14 10:38] LABS: Anisocytosis Slight; Basophils % (A) 1 %; Eosinophils # (A) 0.1 k/uL (0-0.7); Eosinophils % (A) 2 %; HCT 32.7 % (34.0-46.0); HGB 9.2 gm/dL (11.4-16.0); Hypochromasia Marked; Lymphocytes # (A) 1.2 k/uL (1.0-4.8); Lymphocytes % (A) 20 %; MCH 21.3 pg (25.0-35.0); MCHC 28.2 g/dL (31.0-37.0); MCV 75.6 fL (80.0-100.0); Mean Platelet Volume 8.1; Microcytosis Moderate; Monocytes # (A) 0.4 k/uL (0-1.0); Monocytes % (A) 8 %; Neutrophils # (A) 3.8 k/uL (1.3-7.7); Neutrophils % (A) 66 %; Platelet Count 333 k/uL (150-450); Poikilocytosis Slight; RBC 4.33 m/uL (3.80-5.40); RDW 19.1 % (11.5-15.5); WBC 5.7 k/uL (3.8-10.6)
[2021-03-14 10:42] LABS: Albumin 3.4 g/dL (3.5-5.0); Total Bilirubin 0.2 mg/dL (0.2-1.3); Total Protein 6.9 g/dL (6.3-8.2)
--- NOTE | 2021-03-14 11:33 | P.PN ---
Subjective This is a pleasant 45-year-old -Green[place] female past medical history significant for hypertension, chronic diastolic heart failure, pulmonary hypertension, chronic kidney disease, obstructive sleep apnea and morbid obesity. She does not follow regularly with a principal librarian. She is seen and examined sitting up in no acute distress. She denies symptoms of shortness of breath. She is complaining of ongoing lower extremity swelling and heaviness. She is concerned about her fluctuating blood pressures. Current blood pressure 120/72 heart rate 111. Telemetry tracings reveal sinus tachycardia. No acute arrhythmias noted. Most of her blood pressure medications are currently on hold secondary to hypotension and worsening renal function. Laboratory data pending. Currently maintained on Lasix 40 mg by mouth daily, Aldactone 25 mg daily, minoxidil 10 mg daily and Toprol-XL 100 mg daily. 03/14/2021 Patient seen and examined sitting up in bed in no acute distress. She denies any further shortness of breath. She has no symptoms of chest discomfort, dizziness or palpitations. Current blood pressure 164/100 heart rate of 105. Laboratory data reviewed, WBC 5.7, hemoglobin 9.2, platelets 333, sodium 139, potassium 4.3, creatinine 2.06. GENERAL: Well-appearing, well-nourished and in no acute distress. Morbidly obese. NECK: Supple without JVD or thyromegaly. LUNGS: Breath sounds clear to auscultation bilaterally. Respiration equal and unlabored. No wheezes, rales or rhonchi. HEART: Regular rate and rhythm with systolic ejection murmur at the base, no rubs or gallops. S1 and S2 heard. EXTREMITIES: Normal range of motion, bilateral lower extremity nonpitting edema. No clubbing or cyanosis. Peripheral pulses intact. ASSESSMENT Acute on chronic diastolic heart failure Acute kidney injury Hypertension with episodes of hypotension Nausea, vomiting and diarrhea Pulmonary hypertension, severe Obstructive sleep apnea Morbid obesity, BMI 58 PLAN Resume amlodipine 5 mg daily. Continue Toprol 100 mg daily, this can be increased to 150 mg daily. Further blood pressure management can be handled on an outpatient setting, following the office with Dr. May in one week. We will follow along as needed, please call with further questions or concerns. Nurse Practitioner note has been reviewed, I agree with a documented findings and plan of care. Patient was seen and examined. Objective - Vital Signs Vital signs: Vital Signs Temp 98.1 F 03/14/21 08:03 Pulse 105 H 03/14/21 08:03 Resp 18 03/14/21 08:03 BP 164/100 03/14/21 08:03 Pulse Ox 100 03/14/21 08:03 Intake & Output 03/13/21 03/14/21 03/14/21 18:59 06:59 18:59 Intake Total 720 240 Output Total 450 200 Balance 270 -200 240 Weight 170.1 kg Intake: Oral 720 240 Output: Urine 450 200 Other: Voiding Method Bedside Commode Toilet - Labs CBC & Chem 7: 03/14/21 06:39 03/14/21 06:39 Labs: Abnormal Lab Results - Last 24 Hours (Table) 03/14/21 03/14/21 Range/Units 06:39 06:39 Hgb 9.2 L (11.4-16.0) gm/dL Hct 32.7 L (34.0-46.0) % MCV 75.6 L (80.0-100.0) fL MCH 21.3 L (25.0-35.0) pg MCHC 28.2 L (31.0-37.0) g/dL RDW 19.1 H (11.5-15.5) % BUN 34 H (7-17) mg/dL Creatinine 2.06 H (0.52-1.04) mg/dL Albumin 3.4 L (3.5-5.0) g/dL Microbiology - Last 24 Hours (Table) 03/09/21 16:24 Blood Culture - Preliminary Blood No Growth after 96 hours 03/09/21 16:24 Blood Culture - Preliminary Blood No Growth after 96 hours
[2021-03-14 11:36] VITALS: PULSE 102; RESP 20; TEMP 98.2
--- NOTE | 2021-03-14 13:39 | XR ---
EXAMINATION TYPE: XR chest 2V DATE OF EXAM: 03/14/2021 COMPARISON: 03/09/2021 HISTORY: Heart failure, pneumonitis TECHNIQUE: Frontal and lateral views of the chest are obtained. FINDINGS: Left basilar pleural-parenchymal disease and patchy airspace disease bilaterally with bilateral perih ilar prominence is unchanged. Massive enlargement of the cardiac pelvis again noted. IMPRESSION: No significant change since the prior examination.
[2021-03-14] MEDS: AZITHROMYCIN 500 MG TAB PO SCH (15:51)
[2021-03-14 16:01] VITALS: BP 166/107
--- NOTE | 2021-03-14 20:55 | DS ---
DISCHARGE SUMMARY CHIEF COMPLAINT: Shortness of breath. HISTORY OF PRESENT ILLNESS AND PHYSICAL EXAMINATION: Details of this lady's history and physical can be found in the initial workup. LABORATORY STUDIES: While she was in the hospital, she had laboratory studies, details of which can be found in the laboratory section of her chart. COURSE IN THE HOSPITAL: After admission, she was placed on bedrest, started on intravenous fluids and diuresis. She was seen by Cardiology and Nephrology. There was a question of possible pneumonitis and she was placed on antibiotics, and it was felt likely that this was due to her heart failure. She was improving, doing well. It was felt she could be discharged on the and she will go home on her usual activity, diet, medication, and she will follow up in several days in the office. FINAL DIAGNOSES: 1. Acute on chronic congestive heart failure. 2. Atherosclerotic cardiomyopathy. 3. Morbid obesity. 4. Chronic renal failure. OPERATIONS: None. CONSULTATION: Cardiology and nephrology. She is improved. MMODL / IJN: [id number] /
--- NOTE | 2021-03-14 21:03 | PN ---
PROGRESS NOTE DATE OF SERVICE: 03/12/2021 CHIEF COMPLAINT: Acute congestive heart failure and renal failure. HISTORY OF PRESENT ILLNESS: This lady's breathing is somewhat improved, but she is still quite dyspneic. She is being evaluated by Cardiology. Discharge plan and timing are not clear at this point. We will ask her to be seen by Nephrology since the BUN and creatinine are elevated and not coming down. PHYSICAL EXAMINATION: Breath sounds are difficult to hear but her chest sounds clear. Cardiac exam is normal. Abdomen is protuberant. Extremities are unchanged. IMPRESSION: 1. Acute on chronic congestive heart failure. 2. Cardiomyopathy. 3. Chronic renal failure. PLAN: 1. Nephrology consult. 2. Continue to look for other means of controlling her congestive heart failure. 3. Discharge planning. MMJOSE AL / IJN: [id number] /
== END 2021-03-14 18:05 | disposition home or self-care (01) | DRG 280 ==
LOC: EC 13:45 → 3SCARD 16:12
PROVIDERS: ADMIT Family Medicine; ATTEND Family Medicine
PROC: 05H933Z Insertion of Infusion Device into Right Brachial Vein, Percutaneous Approach (ICD-10-PCS; principal; 2021-03-09)
DX: I13.0 Hypertensive heart and chronic kidney disease with heart failure and stage 1 through stage 4 chronic kidney disease, or unspecified chronic kidney disease (principal); I21.A1 Myocardial infarction type 2; J96.00 Acute respiratory failure, unspecified whether with hypoxia or hypercapnia; I50.43 Acute on chronic combined systolic (congestive) and diastolic (congestive) heart failure; J18.9 Pneumonia, unspecified organism; N17.9 Acute kidney failure, unspecified; J44.0 Chronic obstructive pulmonary disease with (acute) lower respiratory infection; Z68.43 Body mass index [BMI] 50.0-59.9, adult; Z20.822 Contact with and (suspected) exposure to COVID-19; I25.10 Atherosclerotic heart disease of native coronary artery without angina pectoris; N18.9 Chronic kidney disease, unspecified; M17.0 Bilateral primary osteoarthritis of knee; I42.0 Dilated cardiomyopathy; E66.01 Morbid (severe) obesity due to excess calories; G47.33 Obstructive sleep apnea (adult) (pediatric); I27.20 Pulmonary hypertension, unspecified; R00.0 Tachycardia, unspecified; R11.2 Nausea with vomiting, unspecified; R19.7 Diarrhea, unspecified; I95.9 Hypotension, unspecified; Z86.79 Personal history of other diseases of the circulatory system; Z79.51 Long term (current) use of inhaled steroids; Z79.82 Long term (current) use of aspirin; Z79.899 Other long term (current) drug therapy; Z86.16 Personal history of COVID-19; Z87.19 Personal history of other diseases of the digestive system
CPT/HCPCS: 36410; 36415; 71046; 76937; 80048; 80053; 81001; 83605; 83735; 83880; 84145; 84484; 85025; 85610; 85730; 86140; 87040; 87635; 93005; 94640; 99285

== ENCOUNTER 2021-04-11 15:15 | Inpatient (IN) | payer OTHER ==
[2021-04-11 16:02] LABS: Anisocytosis Slight; HCT 34.9 % (34.0-46.0); Hypochromasia Marked; MCHC 28.6 g/dL (31.0-37.0); MCV 73.6 fL (80.0-100.0); Mean Platelet Volume 7.7; Microcytosis Moderate; Platelet Count 242 k/uL (150-450); Poikilocytosis Slight; RBC 4.75 m/uL (3.80-5.40); RDW 18.8 % (11.5-15.5)
--- NOTE | 2021-04-11 16:03 | ED ---
SOB HPI - General Chief Complaint: Shortness of Breath Stated Complaint: AFIB w/ RVR Time Seen by Provider: 04/11/21 15:22 Source: patient, EMS Mode of arrival: EMS Limitations: no limitations - History of Present Illness Initial Comments: This is a 45 year old female with a history of CAD, hypertension, congestive heart failure, DVT, anxiety, CK 80 who presents emergent department for 5 days worth of worsening edema in her lower extremities and in her abdomen. The patient states that she also has some associated shortness of breath that is worse with exertion and also with laying flat. She states that she has been compliant with her medications however states that she does not have a beater engineer that she follows up with. She states that earlier today she had some fluttering or chest however this has since resolved. She treats this to her anxiety. She does take lorazepam as needed for her anxiety. She did not take any today. She denies any chest pain currently. No cough or fever. She does admit to little bit lightheadedness. No abdominal pain however states that she did vomit earlier today. No diarrhea. She denies any other acute complaints. - Related Data Home Medications Medication Instructions Recorded Confirmed Baclofen [Lioresal] 10 mg PO DAILY PRN 11/05/17 04/11/21 Budesonide/Formoterol Fumarate 2 puff INHALATION RT-BID 11/05/17 04/11/21 [Symbicort 160-4.5 Mcg Inhaler] Omeprazole 20 mg PO DAILY 11/05/17 04/11/21 minoxidiL [Minoxidil] 10 mg PO DAILY 11/05/17 04/11/21 LORazepam [Ativan] 2 mg PO TID PRN 01/04/19 04/11/21 Spironolactone [Aldactone] 25 mg PO DAILY 01/04/19 04/11/21 cloNIDine HCL [Catapres] 0.3 mg PO TID 01/04/19 04/11/21 hydrALAZINE HCL [Apresoline] 100 mg PO TID 01/04/19 04/11/21 Ferrous Sulfate [Iron (65 MG 325 mg PO AC-TID 12/18/20 04/11/21 Elemental)] Albuterol Sulfate [Proair Hfa] 2 puff INHALATION RT-QID PRN 03/09/21 04/11/21 Furosemide [Lasix] 80 mg PO DAILY 03/09/21 04/11/21 Losartan Potassium 100 mg PO DAILY 03/09/21 04/11/21 Metoprolol Succinate (ER) [Toprol 100 mg PO DAILY 03/09/21 04/11/21 XL] Previous Rx's Medication Instructions Recorded Aspirin 81 mg PO DAILY #100 chew 01/09/18 Allergies Allergy/AdvReac Type Severity Reaction Status Date / Time No Known Allergies Allergy Verified 04/11/21 16:08 Review of Systems ROS Statement: Those systems with pertinent positive or pertinent negative responses have been documented in the HPI. ROS Other: All systems not noted in ROS Statement are negative. Past Medical History Past Medical History: Coronary Artery Disease (CAD), Chest Pain / Angina, Heart Failure, Hypertension, Osteoarthritis (OA), Renal Disease, Sleep Apnea/CPAP/BIPAP Additional Past Medical History / Comment(s): SVT, sinus pauses, anemia, chronic kidney disease, blood clots-pt stated took xarelto for awhile, arthritis bilateral knees, anemia, constipation, lymphedema History of Any Multi-Drug Resistant Organisms: VRE Date of last positivie culture/infection: 05/03/20 MDRO Source:: VRE URINE Past Surgical History: Section, Hernia Repair Additional Past Surgical History / Comment(s): adominal hernia repair with mesh, cysts removed from stomach Past Anesthesia/Blood Transfusion Reactions: No Reported Reaction Additional Past Anesthesia/Blood Transfusion Reaction / Comment(s): Pt has received blood in the past without reaction. Past Psychological History: Anxiety Smoking Status: Never smoker Past Alcohol Use History: None Reported Past Drug Use History: None Reported - Past Family History Father Family Medical History: Congestive Heart Failure (CHF) Additional Family Medical History / Comment(s): Father from CHF. Mother Family Medical History: Cancer, Hypertension, Sleep Apnea/CPAP/BIPAP Additional Family Medical History / Comment(s): Mother has had cancer removed from ear/head. General Exam - General Exam Comments Initial Comments: Constitutional: Awake alert appears short of breath Head: Normocephalic atraumatic Eyes: no conjunctival injection No scleral icterus EOMI Neck: Supple, full range of motion Heart: Tachycardia normal S1-S2 no murmurs Lungs: Diminished Breath sounds bilaterally No wheezing No rales Abdomen: Soft nondistended nontender, there is edema to the lower abdomen Extremities: Skin edema to the bilateral lower extremities is pitting, she does have some increased swelling to the left hand as well when compared to the right however the patient states that this is chronic and secondary to lymphedema DP pulses intact Radial pulses intact Neuro: A&Ox3 No focal neurologic deficits Psych: Appropriate mood and affect Limitations: no limitations Course Vital Signs 04/11/21 04/11/21 04/11/21 15:16 15:21 17:11 Temperature 98.1 F Pulse Rate 69 145 H Respiratory 24 24 26 H Rate Blood Pressure 146/94 170/100 O2 Sat by Pulse 83 L 96 Oximetry 04/11/21 04/11/21 18:13 18:16 Temperature Pulse Rate 118 H Respiratory 20 Rate Blood Pressure 159/120 154/81 O2 Sat by Pulse 98 Oximetry - Reevaluation(s) Reevaluation #1: 04/11/21 16:04 EKG is showing what appears to be sinus tachycardia with a rate of 134. There are no abnormal ST segment changes or T-wave inversions. QTC is 624.. The patient does appear to have frequent PACs. Does not appear to be atrial fibrillation Medical Decision Making - Medical Decision Making This 45 show female with a history of heart failure came in for progressively worsening edema and shortness of breath. The patient was quite tachypneic on arrival. The patient was requiring 4-5 L of oxygen in order to maintain saturations in the mid 90s. With any exertion the patient becomes extremely dyspneic. Chest x-ray was consistent with pulmonary edema and lab work was consistent with heart failure exacerbation with elevated BNP. Mild troponin elevation likely secondary to heart failure exacerbation. The patient's going to be admitted to the hospital for IV diuresis. I spoke with Dr. Stanford who agrees with plan of care. Patient was updated and agrees as well. All questions answered. - Lab Data Result diagrams: 04/11/21 15:50 04/11/21 15:50 Lab Results 04/11/21 04/11/21 04/11/21 Range/Units 15:50 15:50 15:50 WBC 7.0 (3.8-10.6) k/uL RBC 4.75 (3.80-5.40) m/uL Hgb 10.0 L (11.4-16.0) gm/dL Hct 34.9 (34.0-46.0) % MCV 73.6 L (80.0-100.0) fL MCH 21.0 L (25.0-35.0) pg MCHC 28.6 L (31.0-37.0) g/dL RDW 18.8 H (11.5-15.5) % Plt Count 242 (150-450) k/uL MPV 7.7 Neutrophils % (Manual) 74 % Band Neuts % (Manual) 5 % Lymphocytes % (Manual) 11 % Monocytes % (Manual) 8 % Eosinophils % (Manual) 3 % Basophils % (Manual) 1 % Metamyelocytes % 1 % Neutrophils # (Manual) 5.50 (1.3-7.7) k/uL Lymphocytes # (Manual) 0.77 L (1.0-4.8) k/uL Monocytes # (Manual) 0.56 (0-1.0) k/uL Eosinophils # (Manual) 0.21 (0-0.7) k/uL Basophils # (Manual) 0.07 (0-0.2) k/uL Metamyelocytes # (Man) 0.07 H (0) k/uL Nucleated RBCs 0 (0-0) /100 WBC Manual Slide Review Performed Polychromasia Present Hypochromasia Marked Poikilocytosis Slight Poikilocytosis (manual Present Anisocytosis Slight Microcytosis Moderate PT 11.0 (9.0-12.0) sec INR 1.0 (<1.2) APTT 20.8 L (22.0-30.0) sec Sodium 141 (137-145) mmol/L Potassium 5.0 (3.5-5.1) mmol/L Chloride 112 H (98-107) mmol/L Carbon Dioxide 15 L (22-30) mmol/L Anion Gap 14 mmol/L BUN 34 H (7-17) mg/dL Creatinine 1.86 H (0.52-1.04) mg/dL Est GFR (CKD-EPI)AfAm 37 (>60 ml/min/1.73 sqM) Est GFR (CKD-EPI)NonAf 32 (>60 ml/min/1.73 sqM) Glucose 115 H (74-99) mg/dL Calcium 9.2 (8.4-10.2) mg/dL Magnesium 2.4 H (1.6-2.3) mg/dL Total Bilirubin 0.7 (0.2-1.3) mg/dL AST 54 H (14-36) U/L ALT 11 (4-34) U/L Alkaline Phosphatase 83 (38-126) U/L Troponin I (0.000-0.034) ng/mL NT-Pro-B Natriuret Pep pg/mL Total Protein 8.5 H (6.3-8.2) g/dL Albumin 4.2 (3.5-5.0) g/dL 04/11/21 04/11/21 Range/Units 15:50 15:50 WBC (3.8-10.6) k/uL RBC (3.80-5.40) m/uL Hgb (11.4-16.0) gm/dL Hct (34.0-46.0) % MCV (80.0-100.0) fL MCH (25.0-35.0) pg MCHC (31.0-37.0) g/dL RDW (11.5-15.5) % Plt Count (150-450) k/uL MPV Neutrophils % (Manual) % Band Neuts % (Manual) % Lymphocytes % (Manual) % Monocytes % (Manual) % Eosinophils % (Manual) % Basophils % (Manual) % Metamyelocytes % % Neutrophils # (Manual) (1.3-7.7) k/uL Lymphocytes # (Manual) (1.0-4.8) k/uL Monocytes # (Manual) (0-1.0) k/uL Eosinophils # (Manual) (0-0.7) k/uL Basophils # (Manual) (0-0.2) k/uL Metamyelocytes # (Man) (0) k/uL Nucleated RBCs (0-0) /100 WBC Manual Slide Review Polychromasia Hypochromasia Poikilocytosis Poikilocytosis (manual Anisocytosis Microcytosis PT (9.0-12.0) sec INR (<1.2) APTT (22.0-30.0) sec Sodium (137-145) mmol/L Potassium (3.5-5.1) mmol/L Chloride (98-107) mmol/L Carbon Dioxide (22-30) mmol/L Anion Gap mmol/L BUN (7-17) mg/dL Creatinine (0.52-1.04) mg/dL Est GFR (CKD-EPI)AfAm (>60 ml/min/1.73 sqM) Est GFR (CKD-EPI)NonAf (>60 ml/min/1.73 sqM) Glucose (74-99) mg/dL Calcium (8.4-10.2) mg/dL Magnesium (1.6-2.3) mg/dL Total Bilirubin (0.2-1.3) mg/dL AST (14-36) U/L ALT (4-34) U/L Alkaline Phosphatase (38-126) U/L Troponin I 0.064 H* (0.000-0.034) ng/mL NT-Pro-B Natriuret Pep 7550 pg/mL Total Protein (6.3-8.2) g/dL Albumin (3.5-5.0) g/dL Disposition Clinical Impression: CHF exacerbation Disposition: ADMITTED IP TO THIS HOSP Condition: Stable Referrals: Kevin Stanford MD [Primary Care Provider] - 1-2 days
[2021-04-11 16:13] LABS: Albumin 4.2 g/dL (3.5-5.0); Calcium 9.2 mg/dL (8.4-10.2); Magnesium 2.4 mg/dL (1.6-2.3); Total Bilirubin 0.7 mg/dL (0.2-1.3); Total Protein 8.5 g/dL (6.3-8.2)
[2021-04-11 16:22] LABS: Partial Thromboplastin Time 20.8 sec (22.0-30.0)
[2021-04-11] MEDS ORDERED: FUROSEMIDE 10 MG/ML 4 ML VIAL IV STA (16:22)
--- NOTE | 2021-04-11 16:35 | XR ---
EXAMINATION TYPE: XR chest 1V portable DATE OF EXAM: 04/11/2021 COMPARISON: 03/14/2021. HISTORY: Shortness of breath. TECHNIQUE: Single frontal view of the chest is obtained. FINDINGS: There is moderate interstitial edema with accompanying diffuse hazy opacity. No significan t pleural effusion, or pneumothorax seen. The cardiac silhouette size is enlarged. The osseous str uctures are intact. IMPRESSION: CHF.
[2021-04-11 16:40] LABS: Band Neutrophils % 5 %; Basophils # (M) 0.07 k/uL (0-0.2); Eosinophils # (M) 0.21 k/uL (0-0.7); Lymphocytes # (M) 0.77 k/uL (1.0-4.8); Metamyelocytes # (M) 0.07 k/uL (0); Metamyelocytes % 1 %; Monocytes # (M) 0.56 k/uL (0-1.0); Neutrophils % (M) 74 %; Nucleated Red Blood Cells 0 /100 WBC (0-0); Poikilocytosis (M) Present; Polychromasia Present; Total Cells Counted 200
[2021-04-11] MEDS ORDERED: NALOXONE 0.4 MG/ML 1 ML VIAL IV PRN (18:33)
[2021-04-11] MEDS ORDERED: ASPIRIN 81 MG PO STA (18:36)
[2021-04-11] MEDS ORDERED: HEPARIN SODIUM 1,000 UN/ML (10ML VL) IV PRN (21:33)
[2021-04-11] MEDS ORDERED: HEPARIN SODIUM 1,000 UN/ML (10ML VL) IV ONE (21:33)
[2021-04-11] MEDS ORDERED: HEPARIN SOD,PORK IN 0.45% NACL 25,000 UNIT in 0.45% NACL 1 250ML.BAG IV SCH (21:45)
[2021-04-11] MEDS: METOPROLOL SUCCINATE (ER) 100 MG TAB.ER.24H PO SCH (22:48)
[2021-04-12 06:21] LABS: INR 1.1 (<1.2); Partial Thromboplastin Time 30.4 sec (22.0-30.0); Prothrombin Time 11.2 sec (9.0-12.0)
[2021-04-12 06:53] LABS: Anisocytosis Slight; Basophils % (A) 1 %; Eosinophils # (A) 0.1 k/uL (0-0.7); Eosinophils % (A) 1 %; HGB 8.9 gm/dL (11.4-16.0); Hypochromasia Marked; Lymphocytes # (A) 0.8 k/uL (1.0-4.8); Lymphocytes % (A) 10 %; MCH 20.2 pg (25.0-35.0); MCV 74.8 fL (80.0-100.0); Mean Platelet Volume 8.9; Microcytosis Moderate; Monocytes # (A) 0.4 k/uL (0-1.0); Monocytes % (A) 6 %; Neutrophils % (A) 80 %; Platelet Count 239 k/uL (150-450); Poikilocytosis Slight; RBC 4.42 m/uL (3.80-5.40); RDW 18.8 % (11.5-15.5); WBC 7.6 k/uL (3.8-10.6)
[2021-04-12] MEDS: METOPROLOL SUCCINATE (ER) 100 MG TAB.ER.24H PO SCH (08:45)
[2021-04-12] MEDS ORDERED: LOSARTAN 50 MG TAB PO SCH (09:15)
--- NOTE | 2021-04-12 09:27 | P.CRDCN ---
History of Present Illness Consult date: 04/12/21 History of present illness: HISTORY OF PRESENT ILLNESS: This is a 45-year-old female with a past medical history significant for obstructive sleep apnea, chronic kidney disease, congestive heart failure, hypertension, chronic left upper extremity edema, and morbid obesity with a BMI of 62.5. Patient was last seen in the office in [address] Collins. Patient was admitted to the hospital in November 2020 and also February 2021. Patient states she has not followed up in the office since being hospitalized. We have been asked to see the patient in consultation for congestive heart failure. Patient examined at the bedside. Patient states over the past 2-3 days she has noticed worsening shortness of breath. Patient states she has had difficulty getting around because she is so short of breath and fatigue. She reports compliance with her cardiac medications including her diuretics. She denies increased salt intake. Patient states she has been weighing herself daily at home and has gained approximately 10 pounds in the past week. Patient was found to be in congestive heart failure was started on IV Lasix. EKG reveals sinus tachycardia with a heart rate of 134. Chest xray congestive heart failure Laboratory data: WBC 7.6. Hemoglobin 8.9. Platelet count 239. Sodium 141. Potassium 5.0. BUN 34. Creatinine 1.86. Magnesium 2.4. Troponin 0.064. 0.069. 0.071. BNP 7550. Current home cardiac medications include minoxidil 10 mg daily, hydralazine 100 mg 3 times a day, clonidine 0.3 mg 3 times a day, spironolactone 25 mg daily, metoprolol succinate 100 mg daily, losartan 100 mg daily, Lasix 80 mg daily, aspirin 81 mg daily Most recent echocardiogram obtained in November 2020 reveals ejection fraction 65- 70%, mild to moderate tricuspid regurgitation, severe pulmonary hypertension with RVSP of 75.88 mmHg and small generalized pericardial effusion REVIEW OF SYSTEMS: At the time of my exam: CONSTITUTIONAL: Denies fever or chills. HEENT: Denies blurred vision, vision changes, or eye pain. Denies hemoptysis CARDIOVASCULAR: Denies chest pain. Denies orthopnea. Denies PND. Denies palpita tions RESPIRATORY: Reports shortness of breath. GASTROINTESTINAL: Denies abdominal pain. Denies nausea or vomiting. HEMATOLOGIC: Denies bleeding disorders. GENITOURINARY: Denies any blood in urine. SKIN: Denies pruitis. Denies rash. PHYSICAL EXAM: VITAL SIGNS: Reviewed. GENERAL: Well-developed in no acute distress. HEENT: Head is normocephalic. Pupils are equal, round. Sclerae anicteric. Mucous membranes of the mouth are moist. Neck supple. No JVD or thyromegaly LUNGS: Respirations even and unlabored. Lungs diminished to auscultation bilaterally. HEART: Regular rate and rhythm. S1 and S2 heard. ABDOMEN: Soft. Nondistended. Nontender. EXTREMITIES: Normal range of motion. No clubbing or cyanosis. Peripheral pulses intact. 1-2+ bilateral lower extremity edema NEUROLOGIC: Awake and alert. Oriented x 3. ASSESSMENT: Shortness of breath Acute exacerbation of chronic diastolic heart failure, ejection fraction 65-70% Sinus tachycardia Hypertension Chronic kidney disease Abnormal troponins, not suggestive of ACS, secondary to CKD Obstructive sleep apnea Morbid obesity: BMI 62.5 PLAN: No need to repeat echocardiogram as this was performed in November 2020 Discontinue IV heparin Resume home cardiac medications Continue telemetry monitoring Continue IV Lasix Monitor kidney function Accurate I&O Daily weights Further recommendations pending patient's course Nurse practitioner note has been reviewed by physician. Signing provider agrees with the documented findings, assessment, and plan of care. Past Medical History Past Medical History: Coronary Artery Disease (CAD), Chest Pain / Angina, Heart Failure, Hypertension, Osteoarthritis (OA), Renal Disease, Sleep Apnea/CPAP/BIPAP Additional Past Medical History / Comment(s): SVT, sinus pauses, anemia, chronic kidney disease, blood clots-pt stated took xarelto for awhile, arthritis bilateral knees, anemia, constipation, lymphedema History of Any Multi-Drug Resistant Organisms: VRE Date of last positivie culture/infection: 05/03/20 MDRO Source:: VRE URINE Past Surgical History: Section, Hernia Repair Additional Past Surgical History / Comment(s): adominal hernia repair with mesh, cysts removed from stomach Past Anesthesia/Blood Transfusion Reactions: No Reported Reaction Additional Past Anesthesia/Blood Transfusion Reaction / Comment(s): Pt has received blood in the past without reaction. Past Psychological History: Anxiety Additional Psychological History / Comment(s): Pt takes ativan when needed for anxiety and states it helps. Pt lives at home with her 2 children. is independant. no pets. Smoking Status: Never smoker Past Alcohol Use History: None Reported Past Drug Use History: None Reported - Past Family History Father Family Medical History: Congestive Heart Failure (CHF) Additional Family Medical History / Comment(s): Father from CHF. Mother Family Medical History: Cancer, Hypertension, Sleep Apnea/CPAP/BIPAP Additional Family Medical History / Comment(s): Mother has had cancer removed from ear/head. Medications and Allergies Home Medications Medication Instructions Recorded Confirmed Type Baclofen [Lioresal] 10 mg PO DAILY PRN 11/05/17 04/11/21 History Budesonide/Formoterol Fumarate 2 puff INHALATION RT-BID 11/05/17 04/11/21 History [Symbicort 160-4.5 Mcg Inhaler] Omeprazole 20 mg PO DAILY 11/05/17 04/11/21 History minoxidiL [Minoxidil] 10 mg PO DAILY 11/05/17 04/11/21 History Aspirin 81 mg PO DAILY #100 chew 01/09/18 04/11/21 Rx LORazepam [Ativan] 2 mg PO TID PRN 01/04/19 04/11/21 History Spironolactone [Aldactone] 25 mg PO DAILY 01/04/19 04/11/21 History cloNIDine HCL [Catapres] 0.3 mg PO TID 01/04/19 04/11/21 History hydrALAZINE HCL [Apresoline] 100 mg PO TID 01/04/19 04/11/21 History Ferrous Sulfate [Iron (65 MG 325 mg PO AC-TID 12/18/20 04/11/21 History Elemental)] Albuterol Sulfate [Proair Hfa] 2 puff INHALATION RT-QID PRN 03/09/21 04/11/21 History Furosemide [Lasix] 80 mg PO DAILY 03/09/21 04/11/21 History Losartan Potassium 100 mg PO DAILY 03/09/21 04/11/21 History Metoprolol Succinate (ER) [Toprol 100 mg PO DAILY 03/09/21 04/11/21 History XL] Allergies Allergy/AdvReac Type Severity Reaction Status Date / Time No Known Allergies Allergy Verified 04/11/21 16:08 Physical Exam Vitals: Vital Signs Temp Pulse Pulse Resp BP BP Pulse Ox 04/12/21 08:00 98.3 F 105 H 20 110/57 97 04/12/21 04:45 98.4 F 102 H 22 115/61 97 04/12/21 00:02 98.3 F 106 H 22 135/77 96 04/11/21 20:20 98.1 F 74 24 176/95 98 04/11/21 19:28 98.6 F 117 H 20 140/93 100 04/11/21 18:16 154/81 04/11/21 18:13 118 H 20 159/120 98 04/11/21 17:11 145 H 26 H 170/100 96 04/11/21 15:21 24 04/11/21 15:16 98.1 F 69 24 146/94 83 L Intake and Output 04/11/21 04/12/21 04/12/21 22:59 06:59 14:59 Intake Total 82 0 Output Total 0 375 Balance 82 -375 Intake: Intake, IV Titration 82 Amount Heparin Sod,Pork in 0.45% 82 NaCl 25,000 unit In 0.45 % NaCl 1 250ml.bag @ 5. 4705 UNITS/KG/HR 10 mls/ hr IV .Q24H [facility] Rx#: [id number] Oral 0 Output: Urine 0 375 Other: Voiding Method Indwelling Catheter Indwelling Catheter Indwelling Catheter # Bowel Movements 0 Weight 182.798 kg 181 kg Results 04/12/21 05:17 04/11/21 15:50 Cardiac Enzymes 04/11/21 04/11/21 04/11/21 Range/Units 15:50 15:50 20:51 AST 54 H (14-36) U/L Troponin I 0.064 H* 0.069 H* (0.000-0.034) ng/mL 04/11/21 Range/Units 22:55 AST (14-36) U/L Troponin I 0.071 H* (0.000-0.034) ng/mL Coagulation 04/11/21 04/12/21 Range/Units 15:50 05:17 PT 11.0 11.2 (9.0-12.0) sec APTT 20.8 L 30.4 H (22.0-30.0) sec CBC 04/11/21 04/12/21 Range/Units 15:50 05:17 WBC 7.0 7.6 (3.8-10.6) k/uL RBC 4.75 4.42 (3.80-5.40) m/uL Hgb 10.0 L 8.9 L (11.4-16.0) gm/dL Hct 34.9 33.0 L (34.0-46.0) % Plt Count 242 239 (150-450) k/uL Comprehensive Metabolic Panel 04/11/21 Range/Units 15:50 Sodium 141 (137-145) mmol/L Potassium 5.0 (3.5-5.1) mmol/L Chloride 112 H (98-107) mmol/L Carbon Dioxide 15 L (22-30) mmol/L BUN 34 H (7-17) mg/dL Creatinine 1.86 H (0.52-1.04) mg/dL Glucose 115 H (74-99) mg/dL Calcium 9.2 (8.4-10.2) mg/dL AST 54 H (14-36) U/L ALT 11 (4-34) U/L Alkaline Phosphatase 83 (38-126) U/L Total Protein 8.5 H (6.3-8.2) g/dL Albumin 4.2 (3.5-5.0) g/dL Current Medications Generic Name Dose Route Start Last Admin Trade Name Freq PRN Reason Stop Dose Admin Aspirin 81 mg 04/12/21 09:15 Aspirin 81 Mg PO DAILY [facility] Clonidine 0.3 mg 04/12/21 09:15 Clonidine Hcl 0.1 Mg Tab PO TID [facility] Heparin Sodium (Porcine) 0 unit 04/11/21 21:33 04/12/21 06:56 Heparin Sodium 1,000 Un/Ml (10ml Vl) IV 4,000 unit PER PROTOCOL PRN Administration Low PTT Protocol Hydralazine HCl 100 mg 04/12/21 16:00 Hydralazine Hcl 50 Mg Tab PO TID [facility] Heparin Sodium/Sodium Chloride 250 mls @ 10 mls/hr 04/11/21 21:45 04/12/21 06:52 25,000 unit/ Sodium Chloride IV 8.407 units/kg/hr .Q24H [facility] 15.368 mls/hr Titration Protocol 5.4705 UNITS/KG/HR Losartan Potassium 100 mg 04/12/21 09:15 Losartan 50 Mg Tab PO DAILY [facility] Metoprolol Succinate 100 mg 04/11/21 22:38 04/12/21 08:45 Metoprolol Succinate (Er) 100 Mg Tab.Er.24h PO 100 mg BID [facility] Administration Minoxidil 10 mg 04/12/21 09:15 Minoxidil 10 Mg Tab PO DAILY [facility] Naloxone HCl 0.2 mg 04/11/21 18:33 Naloxone 0.4 Mg/Ml 1 Ml Vial IV Q2M PRN Opioid Reversal Spironolactone 25 mg 04/12/21 09:15 Spironolactone 25 Mg Tab PO DAILY [facility] Intake and Output 04/11/21 04/12/21 04/12/21 22:59 06:59 14:59 Intake Total 82 0 Output Total 0 375 Balance 82 -375 Intake: Intake, IV Titration 82 Amount Heparin Sod,Pork in 0.45% 82 NaCl 25,000 unit In 0.45 % NaCl 1 250ml.bag @ 5. 4705 UNITS/KG/HR 10 mls/ hr IV .Q24H [facility] Rx#: [id number] Oral 0 Output: Urine 0 375 Other: Voiding Method Indwelling Catheter Indwelling Catheter Indwelling Catheter # Bowel Movements 0 Weight 182.798 kg 181 kg 04/12/21 05:17 04/11/21 15:50
[2021-04-12] MEDS: cloNIDine HCL 0.1 MG TAB PO SCH ×3 (09:30→18:53)
[2021-04-12] MEDS: ASPIRIN 81 MG PO SCH (09:30)
[2021-04-12] MEDS: SPIRONOLACTONE 25 MG TAB PO SCH (09:31)
[2021-04-12] MEDS: ACETAMINOPHEN TAB 325 MG TAB PO PRN (09:34)
[2021-04-12] MEDS: FUROSEMIDE 10 MG/ML 10 ML VIAL IV SCH ×2 (10:55→18:53)
[2021-04-12] MEDS: hydrALAZINE HCL 50 MG TAB PO SCH ×2 (16:47→18:53)
[2021-04-12] MEDS: FERROUS SULFATE 325 MG TAB PO SCH (16:49)
[2021-04-12] MEDS ORDERED: FUROSEMIDE 10 MG/ML 4 ML VIAL IV ONE (21:00)
--- NOTE | 2021-04-12 21:10 | HP ---
HISTORY AND PHYSICAL CHIEF COMPLAINT: Shortness of breath. HISTORY OF PRESENT ILLNESS: This is another admission for this 45-year-old morbidly obese -[place] female. She has a long-standing history of congestive heart failure and cardiomyopathy. She also has renal failure. She is noncompliant. She will not come into the office for followup after being discharged from the hospital and she will not answer her phone. It is not known what medications she is or is not taking for sure. She denies chest pain, fever, chills, cough, hemoptysis, etc. She did have Covid 19. REVIEW OF SYSTEMS: Her only complaint is her shortness of breath, and she is also complaining a lot of lower abdominal wall edema. Past medical history, family history and social histories are unchanged. PHYSICAL EXAMINATION: Blood pressure is 128/78 with a pulse of 120, respirations of 38. She is afebrile. In general, she is morbidly obese, sitting up and tachypneic. HEENT: Head ears eyes, nose, mouth and throat were normal. Lymph nodes could not be appreciated. CHEST demonstrated very poor breath sounds anterior and posteriorly. CARDIAC exam was barely audible. It sounds as though she was in sinus rhythm. ABDOMEN was grossly protuberant and she had edema of the abdominal wall. EXTREMITIES: Also very edematous. IMPRESSION: She is admitted to the hospital with diagnoses of : 1. Acute on chronic congestive heart failure. 2. Atherosclerotic cardiomyopathy. 3. Renal failure. 4. Sleep apnea. PLAN: 1. Bed rest. 2. IV fluids. 3. Diuresis. 4. Cardiology consult. MMODL / CEZARN: [id number] /
[2021-04-12] MEDS: SYMBICORT 160-4.5 MCG INHALER INHALATION SCH (21:12)
--- NOTE | 2021-04-12 21:15 | PN ---
PROGRESS NOTE DATE OF SERVICE: 04/12/2021 CHIEF COMPLAINT: Acute congestive heart failure. HISTORY OF PRESENT ILLNESS: This lady's breathing slightly better, but not a great deal. She is concerned about her abdominal distention. She denies chest pain. PHYSICAL EXAMINATION: Breath sounds are diminished at the bases with rales. Cardiac exam reveals that her pulse has slowed somewhat down to around 100 or 110 beats per minute. Abdomen is soft and protuberant. IMPRESSION: 1. Acute congestive heart failure. 2. Chronic congestive heart failure. 3. Cardiomyopathy. 4. Renal failure. 5. Morbid obesity. PLAN: Continue with diuresis and await any further recommendations from Cardiology. MMODL / IJN: [id number] /
[2021-04-12] MEDS ORDERED: METOPROLOL SUCCINATE (ER) 100 MG TAB.ER.24H PO SCH (21:32)
[2021-04-12] MEDS ORDERED: LORazepam 1 MG TAB PO STA (21:41)
[2021-04-13] MEDS: METOPROLOL SUCCINATE (ER) 100 MG TAB.ER.24H PO SCH ×3 (06:37→20:19)
[2021-04-13] MEDS: FERROUS SULFATE 325 MG TAB PO SCH ×3 (07:05→17:05)
[2021-04-13] MEDS: PANTOPRAZOLE 40 MG TABLET PO SCH (07:05)
[2021-04-13 07:53] LABS: Potassium 5.1 mmol/L (3.5-5.1)
[2021-04-13] MEDS: SYMBICORT 160-4.5 MCG INHALER INHALATION SCH ×2 (08:53→20:45)
[2021-04-13] MEDS ORDERED: FUROSEMIDE 10 MG/ML 4 ML VIAL IV SCH (09:00)
[2021-04-13] MEDS: SPIRONOLACTONE 25 MG TAB PO SCH (09:01)
[2021-04-13] MEDS: cloNIDine HCL 0.1 MG TAB PO SCH ×3 (09:02→22:55)
[2021-04-13] MEDS: ASPIRIN 81 MG PO SCH (09:02)
[2021-04-13] MEDS: hydrALAZINE HCL 50 MG TAB PO SCH (09:02)
--- NOTE | 2021-04-13 09:34 | P.PN ---
Subjective Progress Note Date: 04/13/21 HISTORY OF PRESENT ILLNESS: This is a 45-year-old female with a past medical history significant for obstructive sleep apnea, chronic kidney disease, congestive heart failure, hypertension, chronic left upper extremity edema, and morbid obesity with a BMI of 62.5. Patient was last seen in the office [place] [address] Collins. Patient was admitted to the hospital in November 2020 and also February 2021. Patient states she has not followed up in the office since being hospitalized. We have been asked to see the patient in consultation for congestive heart failure. Patient examined at the bedside. Patient states over the past 2-3 days she has noticed worsening shortness of breath. Patient states she has had difficulty getting around because she is so short of breath and fatigue. She reports compliance with her cardiac medications including her diuretics. She denies increased salt intake. Patient states she has been weighing herself daily at home and has gained approximately 10 pounds in the past week. Patient was found to be in congestive heart failure was started on IV Lasix. EKG reveals sinus tachycardia with a heart rate of 134. Chest xray congestive heart failure Laboratory data: WBC 7.6. Hemoglobin 8.9. Platelet count 239. Sodium 141. Potassium 5.0. BUN 34. Creatinine 1.86. Magnesium 2.4. Troponin 0.064. 0.069. 0.071. BNP 7550. Current home cardiac medications include minoxidil 10 mg daily, hydralazine 100 mg 3 times a day, clonidine 0.3 mg 3 times a day, spironolactone 25 mg daily, metoprolol succinate 100 mg daily, losartan 100 mg daily, Lasix 80 mg daily, aspirin 81 mg daily Most recent echocardiogram obtained in November 2020 reveals ejection fraction 65- 70%, mild to moderate tricuspid regurgitation, severe pulmonary hypertension with RVSP of 75.88 mmHg and small generalized pericardial effusion 04/13/2021 Patient examined this morning at the bedside. Patient denies chest pain or pressure. She reports improvement in her shortness of breath and lower extremity edema. Patient had apparent urinary retention yesterday and a headley catheter was inserted. Creatinine today increased to 2.63. BUN 42. Patient remains on IV lasix 80mg Q12 hours. Patients blood pressure was low yesterday with a SBP in the 90s. She reports feeling dizzy and lightheaded at this time. PHYSICAL EXAM: VITAL SIGNS: Reviewed. GENERAL: Well-developed in no acute distress. HEENT: Head is normocephalic. Pupils are equal, round. Sclerae anicteric. Mucous membranes of the mouth are moist. Neck supple. No JVD or thyromegaly LUNGS: Respirations even and unlabored. Lungs diminished to auscultation bilaterally. HEART: Regular rate and rhythm. S1 and S2 heard. ABDOMEN: Soft. Nondistended. Nontender. EXTREMITIES: Normal range of motion. No clubbing or cyanosis. Peripheral pulses intact. 1-2+ bilateral lower extremity edema NEUROLOGIC: Awake and alert. Oriented x 3. ASSESSMENT: Shortness of breath Acute exacerbation of chronic diastolic heart failure, ejection fraction 65-70% Sinus tachycardia Hypertension Acute on chronic kidney disease Abnormal troponins, not suggestive of ACS, secondary to CKD Obstructive sleep apnea Morbid obesity: BMI 62.5 PLAN: No need to repeat echocardiogram as this was performed in November 2020 Continue IV Lasix. Decrease dosing to 40mg IV Q12 hours due to worsening creatinine Discontinue Cozaar Continue metoprolol Hold Hydralazine and Catapres for SBP less than 110 Monitor kidney function Accurate I&O Daily weights Further recommendations pending patient's course Nurse practitioner note has been reviewed by physician. Signing provider agrees with the documented findings, assessment, and plan of care. Objective - Vital Signs Vital signs: Vital Signs Temp 98.4 F 04/13/21 09:00 Pulse 86 04/13/21 09:00 Resp 22 04/13/21 09:00 BP 121/75 04/13/21 09:00 Pulse Ox 98 04/13/21 09:00 Intake & Output 04/12/21 04/13/21 04/13/21 18:59 06:59 18:59 Intake Total 490 Output Total 675 200 Balance -185 -200 Weight 183.6 kg 183.4 kg Intake: IV 10 Invasive Line 1 10 Oral 480 Output: Urine 675 200 Other: Voiding Method Bedside Commode Indwelling Catheter - Labs CBC & Chem 7: 04/12/21 05:17 04/13/21 07:15 Labs: Abnormal Lab Results - Last 24 Hours (Table) 04/13/21 Range/Units 07:15 Chloride 111 H (98-107) mmol/L BUN 42 H (7-17) mg/dL Creatinine 2.63 H (0.52-1.04) mg/dL Glucose 113 H (74-99) mg/dL
--- NOTE | 2021-04-13 10:26 | US ---
EXAMINATION TYPE: US kidneys/renal and bladder DATE OF EXAM: 04/13/2021 COMPARISON: 12/27/2020 CLINICAL HISTORY: urinary retention. Patient has bladder headley. EXAM MEASUREMENTS: Right Kidney: 10.7 x 5.3 x 5.5 cm Left Kidney: 10.5 x 5.9 x 6.6 cm - Estimated due to limited visualization Patient morbidly obese. Limited evaluation of kidneys. Right Kidney: Upper pole hypoechoic lesion = 1.8 x 1.8 x 1.4 cm , previously measured approximately 2.0 x 1.5 x 1.6 cm. Left Kidney: Inferior pole obscured by bowel gas Bladder: Headley, very limited due to patient body habitus and patient position Bilateral Jets not seen due to headley Incidental finding- Enlarged heterogenous uterus with fibroids seen = 14.3 x 9.7 cm There is no evidence for hydronephrosis at this point in time. IMPRESSION: Hypoechoic lesion of the right kidney is indeterminant on this examination. MRI with and without cont rast is recommended for further evaluation.
--- NOTE | 2021-04-13 11:48 | P.PN ---
Subjective 45-year-old female was admitted secondary to cut his heart failure chronic diastolic dysfunction with acute exacerbation patient has extensive peripheral edema along with ascites and anasarca. Patient is an 80 mg IV twice a day of Lasix with which her creatinine has worsened because of which it was cut down to 40 IV twice a day although patient is not making much urine with this dose of Lasix and patient is still volume overloaded. Patient will be started on IV Lasix drip at 10 mg/h and nephrology will be consulted to the chance that kidney function did get way was tomorrow. Patient baseline creatinine appears to be 1.5. Patient has severe pulmonary hypertension with RVSP of 75 with some generalized small pericardial effusion. Patient has a Colon catheter as there was a concern that patient isn't retaining urine although there is not much urine in the urinary bladder. Constitutional: Denied any fatigue denied any fever. Cardio vascular: denied any chest pain, palpitations Gastrointestinal denied any nausea vomiting Pulmonary: Feeling overall much better compared to yesterday Neurologic denied any new focal deficits All inpatient medications were reviewed and appropriate changes in these medications as dictated in the interval history and assessment and plan. PHYSICAL EXAMINATION: GENERAL: The patient is alert and oriented x3, not in any acute distress. Well developed, well nourished. HEENT: Pupils are round and equally reacting to light. EOMI. No scleral icterus. No conjunctival pallor. Normocephalic, atraumatic. No pharyngeal erythema. No thyromegaly. CARDIOVASCULAR: S1 and S2 present. No murmurs, rubs, or gallops. PULMONARY: Chest is clear to auscultation, no wheezing or crackles. ABDOMEN: Soft, nontender, nondistended, normoactive bowel sounds. No palpable organomegaly. MUSCULOSKELETAL: No joint swelling or deformity. EXTREMITIES: No cyanosis, clubbing since her bilateral pedal edema, anasarca NEUROLOGICAL: Gross neurological examination did not reveal any focal deficits. SKIN: No rashes. Assessment and plan Congestive heart failure chronic diastolic dysfunction of around 60% worsened with acute exacerbation: Patient is still significantly volume overloaded will switch her to IV Lasix drip with nephrology consultation -Acute renal failure: Prerenal azotemia from congestive heart failure cardiorenal syndrome -Chronic kidney disease stage III probably secondary to hypertensive nephrosclerosis -Hypertension patient is bit hypotensive today this can occipital patient's hydralazine has been discussed uterine as well Catapres is being continued, if patient blood pressure goes up probably it's better to start hydralazine rather than minoxidil tomorrow minoxidil can cause significant peripheral edema. Patient's lisinopril is being held which is appropriate patient is mildly hyperkalemic because of which I'll hold off on Aldactone as well. -Severe pulmonary hypertension with RVSP of around 72 with cor pulmonale and right-sided heart failure DVT prophylaxis: Subcutaneous heparin Objective - Vital Signs Vital signs: Vital Signs Temp 98.4 F 04/13/21 09:00 Pulse 86 04/13/21 09:00 Resp 22 04/13/21 09:00 BP 121/75 04/13/21 09:00 Pulse Ox 98 04/13/21 09:00 Intake & Output 04/12/21 04/13/21 04/13/21 18:59 06:59 18:59 Intake Total 490 240 Output Total 675 200 Balance -185 -200 240 Weight 183.6 kg 183.4 kg Intake: IV 10 Invasive Line 1 10 Oral 480 240 Output: Urine 675 200 Other: Voiding Method Bedside Commode Indwelling Catheter Indwelling Catheter - Labs CBC & Chem 7: 04/12/21 05:17 04/13/21 07:15 Labs: Abnormal Lab Results - Last 24 Hours (Table) 04/13/21 Range/Units 07:15 Chloride 111 H (98-107) mmol/L BUN 42 H (7-17) mg/dL Creatinine 2.63 H (0.52-1.04) mg/dL Glucose 113 H (74-99) mg/dL
[2021-04-13] MEDS: HEPARIN SODIUM,PORCINE/PF 5,000 UNIT/0.5 ML SYRINGE SQ SCH ×2 (13:01→20:19)
[2021-04-13] MEDS: FUROSEMIDE 100 MG in SODIUM CHLORIDE 0.9% 90 ML IV SCH ×2 (13:01→20:18)
[2021-04-13] MEDS: ACETAMINOPHEN TAB 325 MG TAB PO PRN (20:19)
[2021-04-14] MEDS: HEPARIN SODIUM,PORCINE/PF 5,000 UNIT/0.5 ML SYRINGE SQ SCH ×3 (03:41→21:14)
[2021-04-14] MEDS: BACLOFEN 10 MG TAB PO PRN (03:43)
[2021-04-14] MEDS: FERROUS SULFATE 325 MG TAB PO SCH ×4 (06:32→17:34)
[2021-04-14] MEDS: FUROSEMIDE 100 MG in SODIUM CHLORIDE 0.9% 90 ML IV SCH ×2 (06:32→20:07)
[2021-04-14] MEDS: PANTOPRAZOLE 40 MG TABLET PO SCH (06:32)
[2021-04-14] MEDS: SYMBICORT 160-4.5 MCG INHALER INHALATION SCH ×2 (09:12→21:34)
[2021-04-14 09:47] LABS: Potassium 5.4 mmol/L (3.5-5.1)
[2021-04-14] MEDS: METOPROLOL SUCCINATE (ER) 100 MG TAB.ER.24H PO SCH ×2 (09:59→11:00)
[2021-04-14] MEDS: ASPIRIN 81 MG PO SCH (09:59)
[2021-04-14] MEDS: MIDODRINE 5 MG TAB PO SCH ×2 (10:59→17:32)
--- NOTE | 2021-04-14 11:00 | CONS ---
CONSULTATION REASON FOR CONSULT: Renal failure and volume overload. HISTORY OF PRESENT ILLNESS: The patient is a 46-year-old female with history of acute kidney injury during hospitalization in November of 2020. At that time patient had COVID pneumonia as well. She has underlying CKD stage IIIB, with baseline creatinine about 1.4-1.8 mg/dL. The patient is admitted this time with complaints of increased lower extremity edema and some shortness of breath as well. Her creatinine has been at about 1.8 mg/dL to 2.0 mg/dL. Previous creatinine in February was about 1.8-2 mg/dL. Patient's blood pressure is on the lower side with systolic 104-103, occasionally 84-85 mmHg documented as well. Currently she is maintained on Lasix drip at 10 mg an hour. The patient has an indwelling Colon catheter. She has had a 24 hour urine output of about 1075 cc. Overall, patient states that she is feeling short of breath, but not acutely worse. Patient denies any chest pains. She has not received any IV contrast during this hospitalization. Previous ultrasound done in November of 2020 did not show any evidence of hydronephrosis. I do not see an echocardiogram during her previous hospitalizations here. PAST MEDICAL HISTORY: Significant for chronic kidney disease, recent COVID pneumonia in November of this year, obesity, previous history of CHF, cardiomyopathy, ejection fraction not known, coronary artery disease, obstructive sleep apnea, constipation, DVT, osteoarthritis. PAST SURGICAL HISTORY: , hernia repair with mesh. SOCIAL HISTORY: Negative for smoking, drug abuse or alcohol abuse. MEDICATIONS: Medications prior to admission included omeprazole, minoxidil, baclofen, Ativan, aspirin, Aldactone, clonidine, hydralazine, iron, Lasix, losartan, metoprolol. ALLERGIES: None. PHYSICAL EXAMINATION: Patient is currently comfortable, awake, not in any acute distress. Alert and oriented x3. Blood pressure 104/52, heart rate 94 per minute, she is afebrile. Examination of the heart S1, S2. Examination of the lungs, bilateral breath sounds are heard. Abdomen is soft, obese, nontender. Examination of the lower extremities shows edema 2+ bilaterally. The patient is morbidly obese. 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 LAB: Show hemoglobin 8.9, sodium 140, potassium 5.1, chloride 111, BUN 42, creatinine 2.63. Labs are pending from today. ASSESSMENT: 1. Acute kidney injury, mostly cardiorenal. Check labs today. 2. Volume overload with history of diastolic heart failure maintained on Lasix drip which I will continue. I will add midodrine to help with the hypotension, which will help with the diuresis. Decrease dose of clonidine as blood pressure has been low with systolic of 85 yesterday noted. 3. Anemia, rule out iron deficiency. 4. Metabolic acidosis secondary to renal failure, currently improved, possibly secondary to component of metabolic alkalosis from diuresis. 5. Morbid obesity. 6. History of obstructive sleep apnea. 7. Chronic kidney disease stage IIIB. Previous creatinine 1.5-1.6, but most recently has been around 1.8-2 mg/dL. The patient does have proteinuria and protein- creatinine ratio was about 1.7 g in November of 2020. All serologies done at that time were negative. Ultrasound is unremarkable. PLAN: Continue with the Lasix drip. Add midodrine. Check labs today and then again in a.m. Continue with accurate I's&O's. Check iron profile as well. Thank you for this consultation. Will continue to follow the patient with you during her hospitalization. MMODL / IJN: [id number] /
--- NOTE | 2021-04-14 14:24 | P.PN ---
Subjective Progress Note Date: 04/14/21 HISTORY OF PRESENT ILLNESS: This is a 45-year-old female with a past medical history significant for obstructive sleep apnea, chronic kidney disease, congestive heart failure, hypertension, chronic left upper extremity edema, and morbid obesity with a BMI of 62.5. Patient was last seen in the office in [address] Collins. Patient was admitted to the hospital in November 2020 and also February 2021. Patient states she has not followed up in the office since being hospitalized. We have been asked to see the patient in consultation for congestive heart failure. Patient examined at the bedside. Patient states over the past 2-3 days she has noticed worsening shortness of breath. Patient states she has had difficulty getting around because she is so short of breath and fatigue. She reports compliance with her cardiac medications including her diuretics. She denies increased salt intake. Patient states she has been weighing herself daily at home and has gained approximately 10 pounds in the past week. Patient was found to be in congestive heart failure was started on IV Lasix. EKG reveals sinus tachycardia with a heart rate of 134. Chest xray congestive heart failure Laboratory data: WBC 7.6. Hemoglobin 8.9. Platelet count 239. Sodium 141. Potassium 5.0. BUN 34. Creatinine 1.86. Magnesium 2.4. Troponin 0.064. 0.069. 0.071. BNP 7550. Current home cardiac medications include minoxidil 10 mg daily, hydralazine 100 mg 3 times a day, clonidine 0.3 mg 3 times a day, spironolactone 25 mg daily, metoprolol succinate 100 mg daily, losartan 100 mg daily, Lasix 80 mg daily, aspirin 81 mg daily Most recent echocardiogram obtained in November 2020 reveals ejection fraction 65- 70%, mild to moderate tricuspid regurgitation, severe pulmonary hypertension with RVSP of 75.88 mmHg and small generalized pericardial effusion 04/13/2021 Patient examined this morning at the bedside. Patient denies chest pain or pressure. She reports improvement in her shortness of breath and lower extremity edema. Patient had apparent urinary retention yesterday and a headley catheter was inserted. Creatinine today increased to 2.63. BUN 42. Patient remains on IV lasix 80mg Q12 hours. Patients blood pressure was low yesterday with a SBP in the 90s. She reports feeling dizzy and lightheaded at this time. 04/14/2021 Patient examined at the bedside. She denies chest pain or pressure. Denies SOB. She remains on IV lasix. Creatinine 3.02. Blood pressure was low this morning and Midodrine was added per nephrology. PHYSICAL EXAM: VITAL SIGNS: Reviewed. GENERAL: Well-developed in no acute distress. HEENT: Head is normocephalic. Pupils are equal, round. Sclerae anicteric. Mucous membranes of the mouth are moist. Neck supple. No JVD or thyromegaly LUNGS: Respirations even and unlabored. Lungs diminished to auscultation bilaterally. HEART: Regular rate and rhythm. S1 and S2 heard. ABDOMEN: Soft. Nondistended. Nontender. EXTREMITIES: Normal range of motion. No clubbing or cyanosis. Peripheral pulses intact. 1-2+ bilateral lower extremity edema NEUROLOGIC: Awake and alert. Oriented x 3. ASSESSMENT: Shortness of breath Acute exacerbation of chronic diastolic heart failure, ejection fraction 65-70% Sinus tachycardia Hypertension Acute on chronic kidney disease Abnormal troponins, not suggestive of ACS, secondary to CKD Obstructive sleep apnea Morbid obesity: BMI 62.5 PLAN: Continue to hold antihypertensive medications secondary to hypotension Decrease metoprolol to 50 mg twice a day Midodrine added per nephrology Continue Lasix drip per nephrology Monitor kidney function Accurate I&O Daily weights Further recommendations pending patient's course Nurse practitioner note has been reviewed by physician. Signing provider agrees with the documented findings, assessment, and plan of care. Objective - Vital Signs Vital signs: Vital Signs Temp 98.5 F 04/14/21 09:55 Pulse 76 04/14/21 09:55 Resp 22 04/14/21 09:55 BP 84/49 04/14/21 09:55 Pulse Ox 97 04/14/21 09:55 Intake & Output 04/13/21 04/14/21 04/14/21 18:59 06:59 18:59 Intake Total 1130 172.833 36.333 Output Total 425 650 Balance 705 -477.167 36.333 Weight 183.7 kg Intake: Intake, IV Titration 10 172.833 36.333 Amount Furosemide 100 mg In 10 172.833 36.333 Sodium Chloride 0.9% 90 ml @ 10 MG/HR 10 mls/hr IV .Q10H [facility] Rx#: [id number] Oral 1120 Output: Urine 425 650 Other: Voiding Method Indwelling Catheter Indwelling Catheter Indwelling Catheter # Bowel Movements 0 - Labs CBC & Chem 7: 04/12/21 05:17 04/14/21 08:10 Labs: Abnormal Lab Results - Last 24 Hours (Table) 04/14/21 Range/Units 08:10 Potassium 5.4 H (3.5-5.1) mmol/L Chloride 109 H (98-107) mmol/L Carbon Dioxide 21 L (22-30) mmol/L BUN 44 H (7-17) mg/dL Creatinine 3.02 H (0.52-1.04) mg/dL Glucose 120 H (74-99) mg/dL
[2021-04-14] MEDS: cloNIDine HCL 0.1 MG TAB PO SCH (15:37)
[2021-04-14] MEDS ORDERED: cloNIDine HCL 0.2 MG TAB PO SCH (16:00)
[2021-04-14 16:01] LABS: Albumin 4.2 g/dL (3.5-5.0); Potassium 5.5 mmol/L (3.5-5.1); Total Bilirubin 0.3 mg/dL (0.2-1.3); Total Protein 8.3 g/dL (6.3-8.2)
[2021-04-14 16:31] LABS: Anisocytosis Slight; Basophils # (A) 0.1 k/uL (0-0.2); Basophils % (A) 1 %; Eosinophils # (A) 0.1 k/uL (0-0.7); Eosinophils % (A) 1 %; HCT 35.3 % (34.0-46.0); HGB 9.7 gm/dL (11.4-16.0); Hypochromasia Marked; Lymphocytes # (A) 1.1 k/uL (1.0-4.8); Lymphocytes % (A) 12 %; MCH 20.9 pg (25.0-35.0); MCHC 27.4 g/dL (31.0-37.0); MCV 76.1 fL (80.0-100.0); Mean Platelet Volume 8.1; Microcytosis Moderate; Monocytes # (A) 0.8 k/uL (0-1.0); Monocytes % (A) 9 %; Neutrophils # (A) 6.5 k/uL (1.3-7.7); Neutrophils % (A) 74 %; Platelet Count 241 k/uL (150-450); Poikilocytosis Slight; RBC 4.64 m/uL (3.80-5.40); WBC 8.8 k/uL (3.8-10.6)
--- NOTE | 2021-04-14 18:29 | XR ---
EXAMINATION TYPE: XR chest 2V DATE OF EXAM: 04/14/2021 COMPARISON: 04/11/2021 INDICATION: CHF TECHNIQUE: Frontal and lateral views of the chest are obtained. Exam is limited due to body habitus. FINDINGS: The heart size is markedly enlarged. The pulmonary vasculature is mildly prominent. A normal infiltrate may be present.. IMPRESSION: 1. Marked cardiomegaly with some mildly prominent pulmonary vascular markings. Early congestive heart failure should be considered.
[2021-04-14] MEDS: METOPROLOL SUCCINATE (ER) 50 MG TAB.ER.24H PO SCH (20:07)
[2021-04-14 22:55] LABS: % Iron Saturation 4.67 (12.00-45.00)
[2021-04-15] MEDS: HEPARIN SODIUM,PORCINE/PF 5,000 UNIT/0.5 ML SYRINGE SQ SCH ×3 (05:59→20:17)
[2021-04-15] MEDS: PANTOPRAZOLE 40 MG TABLET PO SCH (06:10)
[2021-04-15] MEDS: FUROSEMIDE 100 MG in SODIUM CHLORIDE 0.9% 90 ML IV SCH ×2 (06:10→13:09)
[2021-04-15] MEDS: FERROUS SULFATE 325 MG TAB PO SCH ×3 (06:10→16:37)
[2021-04-15] MEDS: MIDODRINE 5 MG TAB PO SCH ×2 (06:10→17:56)
[2021-04-15] MEDS: SYMBICORT 160-4.5 MCG INHALER INHALATION SCH ×2 (07:43→19:02)
[2021-04-15] MEDS: METOPROLOL SUCCINATE (ER) 50 MG TAB.ER.24H PO SCH ×2 (09:06→20:17)
[2021-04-15] MEDS: ASPIRIN 81 MG PO SCH (09:06)
--- NOTE | 2021-04-15 09:33 | PN ---
PROGRESS NOTE Patient is seen for followup for acute kidney injury and volume overload. She is currently being diuresed. The patient is maintained on Lasix drip. Her creatinine has improved. Blood pressure is also improved now. Patient was started on midodrine yesterday. She had blood pressures as low as 85 mmHg. She has had good urine output with 24-hour urine output documented at about 2 L. PHYSICAL EXAMINATION: Patient is comfortable. Blood pressure 127/94, heart rate 92 per minute, she is afebrile. Examination of the heart S1, S2. Examination of the lungs, bilateral breath sounds are heard. Decreased breath sounds at bases. Abdomen is soft, nontender, obese. Exam of lower extremities shows 2 to 3+ edema bilaterally. 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 LAB: Show sodium 141, potassium 5.5, chloride 109, BUN 47, serum creatinine 2.89, hemoglobin 9.7. ASSESSMENT: 1. Acute kidney injury mostly cardiorenal, currently improving. 2. Volume overload. Maintained on Lasix drip and currently diuresing better. Continue with the midodrine and Lasix drip for now. 3. Chronic kidney disease stage 3B. Previous creatinine 1.5-1.6, most recently, staying at 1.8-2 mg/dL. Protein creatinine ratio has been 1.7 g in November of 2020. At that time all serologies were negative. An ultrasound is unremarkable. 4. Morbid obesity. 5. Metabolic acidosis associated with renal failure currently improved. Possible component of metabolic alkalosis from diuresis. PLAN: Continue with midodrine. Continue with Lasix drip. Check accurate I's and O's. Repeat labs in a.m. MMODL / IJN: [id number] /
--- NOTE | 2021-04-15 13:25 | P.PN ---
Subjective Progress Note Date: 04/15/21 HISTORY OF PRESENT ILLNESS: This is a 45-year-old female with a past medical history significant for obstructive sleep apnea, chronic kidney disease, congestive heart failure, hypertension, chronic left upper extremity edema, and morbid obesity with a BMI of 62.5. Patient was last seen in the office in [address] Collins. Patient was admitted to the hospital in November 2020 and also February 2021. Patient states she has not followed up in the office since being hospitalized. We have been asked to see the patient in consultation for congestive heart failure. Patient examined at the bedside. Patient states over the past 2-3 days she has noticed worsening shortness of breath. Patient states she has had difficulty getting around because she is so short of breath and fatigue. She reports compliance with her cardiac medications including her diuretics. She denies increased salt intake. Patient states she has been weighing herself daily at home and has gained approximately 10 pounds in the past week. Patient was found to be in congestive heart failure was started on IV Lasix. EKG reveals sinus tachycardia with a heart rate of 134. Chest xray congestive heart failure Laboratory data: WBC 7.6. Hemoglobin 8.9. Platelet count 239. Sodium 141. Potassium 5.0. BUN 34. Creatinine 1.86. Magnesium 2.4. Troponin 0.064. 0.069. 0.071. BNP 7550. Current home cardiac medications include minoxidil 10 mg daily, hydralazine 100 mg 3 times a day, clonidine 0.3 mg 3 times a day, spironolactone 25 mg daily, metoprolol succinate 100 mg daily, losartan 100 mg daily, Lasix 80 mg daily, aspirin 81 mg daily Most recent echocardiogram obtained in November 2020 reveals ejection fraction 65- 70%, mild to moderate tricuspid regurgitation, severe pulmonary hypertension with RVSP of 75.88 mmHg and small generalized pericardial effusion 04/13/2021 Patient examined this morning at the bedside. Patient denies chest pain or pressure. She reports improvement in her shortness of breath and lower extremity edema. Patient had apparent urinary retention yesterday and a headley catheter was inserted. Creatinine today increased to 2.63. BUN 42. Patient remains on IV lasix 80mg Q12 hours. Patients blood pressure was low yesterday with a SBP in the 90s. She reports feeling dizzy and lightheaded at this time. 04/14/2021 Patient examined at the bedside. She denies chest pain or pressure. Denies SOB. She remains on IV lasix. Creatinine 3.02. Blood pressure was low this morning and Midodrine was added per nephrology. 04/15/2021 Patient examined this morning at the bedside. Patient denies chest pain or pressure. She states her breathing is improving. She also reports improvement in lower extremity edema. She remains on Lasix infusion per nephrology. Blood pressure 127/94. Patient's antihypertensive medications are on hold. She was also started on Midodrine per nephrology. PHYSICAL EXAM: VITAL SIGNS: Reviewed. GENERAL: Well-developed in no acute distress. HEENT: Head is normocephalic. Pupils are equal, round. Sclerae anicteric. Mucous membranes of the mouth are moist. Neck supple. No JVD or thyromegaly LUNGS: Respirations even and unlabored. Lungs diminished to auscultation bilaterally. HEART: Regular rate and rhythm. S1 and S2 heard. ABDOMEN: Soft. Nondistended. Nontender. EXTREMITIES: Normal range of motion. No clubbing or cyanosis. Peripheral pulses intact. 1-2+ bilateral lower extremity edema NEUROLOGIC: Awake and alert. Oriented x 3. ASSESSMENT: Shortness of breath Acute exacerbation of chronic diastolic heart failure, ejection fraction 65-70% Sinus tachycardia Hypertension Acute on chronic kidney disease Abnormal troponins, not suggestive of ACS, secondary to CKD Obstructive sleep apnea Morbid obesity: BMI 62.5 PLAN: Continue to hold antihypertensive medications secondary to hypotension metoprolol decreased to 50 mg twice a day yesterday Midodrine added per nephrology Patient currently without IV access. Resume Lasix drip when IV access is es tablished. Monitor kidney function Accurate I&O Daily weights Further recommendations pending patient's course Nurse practitioner note has been reviewed by physician. Signing provider agrees with the documented findings, assessment, and plan of care. Objective - Vital Signs Vital signs: Vital Signs Temp 97.8 F 04/15/21 07:55 Pulse 92 04/15/21 07:55 Resp 20 04/15/21 07:55 BP 127/94 04/15/21 07:55 Pulse Ox 100 04/15/21 07:55 Intake & Output 04/14/21 04/15/21 04/15/21 18:59 06:59 18:59 Intake Total 456.333 100 480 Output Total 500 1500 Balance -43.667 -1400 480 Weight 179 kg Intake: Intake, IV Titration 36.333 100 Amount Furosemide 100 mg In 36.333 100 Sodium Chloride 0.9% 90 ml @ 10 MG/HR 10 mls/hr IV .Q10H [facility] Rx#: [id number] Oral 420 480 Output: Urine 500 1500 Other: Voiding Method Indwelling Catheter Indwelling Catheter Indwelling Catheter # Bowel Movements 1 - Labs CBC & Chem 7: 04/14/21 15:23 04/14/21 15:23 Labs: Abnormal Lab Results - Last 24 Hours (Table) 04/14/21 04/14/21 04/14/21 Range/Units 08:10 15:23 15:23 Hgb 9.7 L (11.4-16.0) gm/dL MCV 76.1 L (80.0-100.0) fL MCH 20.9 L (25.0-35.0) pg MCHC 27.4 L (31.0-37.0) g/dL RDW 19.0 H (11.5-15.5) % Potassium 5.5 H (3.5-5.1) mmol/L Chloride 109 H (98-107) mmol/L Carbon Dioxide 20 L (22-30) mmol/L BUN 47 H (7-17) mg/dL Creatinine 2.89 H (0.52-1.04) mg/dL Glucose 112 H (74-99) mg/dL Iron 19 L (50-170) ug/dL % Saturation 4.67 L (12.00-45.00) Total Protein 8.3 H (6.3-8.2) g/dL
[2021-04-15] MEDS: FUROSEMIDE 40 MG TAB PO SCH (16:37)
--- NOTE | 2021-04-15 17:50 | PN ---
PROGRESS NOTE DATE OF SERVICE: 04/14/2021 CHIEF COMPLAINT: Acute on chronic congestive heart failure. HISTORY OF PRESENT ILLNESS: This lady is not doing well. She is a little bit less short of breath, but she is worried about her abdominal wall edema as well as the swelling in her legs. It is also noted that her hemoglobin is down to 8.2 and her BUN and creatinine are rising with a BUN of 44 and a creatinine of 3.02. Blood pressure is also low. REVIEW OF SYSTEMS: She is awake and alert. She denies any chest pain, abdominal pain, chills, fever, etc. PHYSICAL EXAMINATION: Breath sounds are distant and they sound fairly clear. Cardiac exam is difficult to hear as well, but no murmurs are heard. Abdomen is extremely protuberant. Extremities are edematous, as well as the abdominal wall. IMPRESSION: 1. Acute on chronic congestive heart failure. 2. Cardiomyopathy. 3. Morbid obesity. 4. Renal failure. 5. Cardiorenal syndrome. 6. Anemia. 7. Hypotension. PLAN: Continue treatment with the assistance of Cardiology and Nephrology. Prognosis is poor. MMODL / IJN: [id number] /
--- NOTE | 2021-04-15 18:00 | PN ---
PROGRESS NOTE DATE OF SERVICE: 04/15/2021. CHIEF COMPLAINT: Congestive heart failure. HISTORY OF PRESENT ILLNESS: This lady is stable. She is still largely bedrest. She still remains very short of breath. Renal function is deteriorating. PHYSICAL EXAMINATION: Breath sounds are difficult to hear. Cardiac exam is difficult for the same reason. Abdomen is protuberant. Extremities are edematous and she continues to have lower abdominal wall edema. IMPRESSION: 1. Acute congestive heart failure. 2. Chronic congestive heart failure. 3. Cardiomyopathy. 4. Morbid obesity. 5. Elevated blood pressure 143/111. 6. Progressive CKD. 7. Cardiorenal syndrome. PLAN: Her IV will have to be replaced with a central line in order to continue her IV Lasix drip. MMODL / IJN: [id number] /
[2021-04-16] MEDS: HEPARIN SODIUM,PORCINE/PF 5,000 UNIT/0.5 ML SYRINGE SQ SCH ×3 (06:08→21:43)
[2021-04-16] MEDS: FERROUS SULFATE 325 MG TAB PO SCH ×3 (06:27→17:24)
[2021-04-16] MEDS: MIDODRINE 5 MG TAB PO SCH (06:27)
[2021-04-16] MEDS: PANTOPRAZOLE 40 MG TABLET PO SCH (06:39)
[2021-04-16] MEDS: SYMBICORT 160-4.5 MCG INHALER INHALATION SCH ×2 (07:31→20:37)
[2021-04-16 08:02] LABS: Calcium 9.2 mg/dL (8.4-10.2)
[2021-04-16] MEDS: METOPROLOL SUCCINATE (ER) 50 MG TAB.ER.24H PO SCH ×2 (09:31→21:43)
[2021-04-16] MEDS: ASPIRIN 81 MG PO SCH (09:31)
[2021-04-16] MEDS: FUROSEMIDE 40 MG TAB PO SCH ×2 (09:31→17:23)
--- NOTE | 2021-04-16 10:32 | P.PN ---
Subjective Progress Note Date: 04/16/21 HISTORY OF PRESENT ILLNESS: This is a 45-year-old female with a past medical history significant for obstructive sleep apnea, chronic kidney disease, congestive heart failure, hypertension, chronic left upper extremity edema, and morbid obesity with a BMI of 62.5. Patient was last seen in the office in [address] Collins. Patient was admitted to the hospital in November 2020 and also February 2021. Patient states she has not followed up in the office since being hospitalized. We have been asked to see the patient in consultation for congestive heart failure. Patient examined at the bedside. Patient states over the past 2-3 days she has noticed worsening shortness of breath. Patient states she has had difficulty getting around because she is so short of breath and fatigue. She reports compliance with her cardiac medications including her diuretics. She denies increased salt intake. Patient states she has been weighing herself daily at home and has gained approximately 10 pounds in the past week. Patient was found to be in congestive heart failure was started on IV Lasix. EKG reveals sinus tachycardia with a heart rate of 134. Chest xray congestive heart failure Laboratory data: WBC 7.6. Hemoglobin 8.9. Platelet count 239. Sodium 141. Potassium 5.0. BUN 34. Creatinine 1.86. Magnesium 2.4. Troponin 0.064. 0.069. 0.071. BNP 7550. Current home cardiac medications include minoxidil 10 mg daily, hydralazine 100 mg 3 times a day, clonidine 0.3 mg 3 times a day, spironolactone 25 mg daily, metoprolol succinate 100 mg daily, losartan 100 mg daily, Lasix 80 mg daily, aspirin 81 mg daily Most recent echocardiogram obtained in November 2020 reveals ejection fraction 65- 70%, mild to moderate tricuspid regurgitation, severe pulmonary hypertension with RVSP of 75.88 mmHg and small generalized pericardial effusion 04/13/2021 Patient examined this morning at the bedside. Patient denies chest pain or pressure. She reports improvement in her shortness of breath and lower extremity edema. Patient had apparent urinary retention yesterday and a headley catheter was inserted. Creatinine today increased to 2.63. BUN 42. Patient remains on IV lasix 80mg Q12 hours. Patients blood pressure was low yesterday with a SBP in the 90s. She reports feeling dizzy and lightheaded at this time. 04/14/2021 Patient examined at the bedside. She denies chest pain or pressure. Denies SOB. She remains on IV lasix. Creatinine 3.02. Blood pressure was low this morning and Midodrine was added per nephrology. 04/15/2021 Patient examined this morning at the bedside. Patient denies chest pain or pressure. She states her breathing is improving. She also reports improvement in lower extremity edema. She remains on Lasix infusion per nephrology. Blood pressure 127/94. Patient's antihypertensive medications are on hold. She was also started on Midodrine per nephrology. 04/16/2021 Patient examined this morning at the bedside. Peripheral IV access was unable to be established yesterday and patient was transitioned to oral Lasix. At the time of examination this morning she denies chest pain or pressure. She denies shortness of breath. Patient continues to have a Hedaley catheter intact. Patient's blood pressure this morning is elevated with a systolic in the 170s. Patient was recently started on Midodrine due to hypotension. PHYSICAL EXAM: VITAL SIGNS: Reviewed. GENERAL: Well-developed in no acute distress. HEENT: Head is normocephalic. Pupils are equal, round. Sclerae anicteric. Mucous membranes of the mouth are moist. Neck supple. No JVD or thyromegaly LUNGS: Respirations even and unlabored. Lungs diminished to auscultation bilaterally. HEART: Regular rate and rhythm. S1 and S2 heard. ABDOMEN: Soft. Nondistended. Nontender. EXTREMITIES: Normal range of motion. No clubbing or cyanosis. Peripheral pulses intact. 1-2+ bilateral lower extremity edema NEUROLOGIC: Awake and alert. Oriented x 3. ASSESSMENT: Shortness of breath Acute exacerbation of chronic diastolic heart failure, ejection fraction 65-70% Sinus tachycardia Hypertension Acute on chronic kidney disease Abnormal troponins, not suggestive of ACS, secondary to CKD Obstructive sleep apnea Morbid obesity: BMI 62.5 PLAN: Patient initially hypotensive. Her antihypertensive medications were discontinued and she was started on Midodrine. However, the patient is hypertensive this morning. We will discontinue Midodrine. Continue to monitor patient's blood pressures. If she remains hypertensive, we will slowly reinitiate her home antihypertensive medications. Continue oral Lasix Discontinue Headley catheter Monitor kidney function Accurate I&O Daily weights Further recommendations pending patient's course Nurse practitioner note has been reviewed by physician. Signing provider agrees with the documented findings, assessment, and plan of care. Objective - Vital Signs Vital signs: Vital Signs Temp 98.0 F 04/16/21 08:00 Pulse 94 04/16/21 08:00 Resp 18 04/16/21 08:00 BP 186/88 04/16/21 10:19 Pulse Ox 100 04/16/21 08:00 Intake & Output 04/15/21 04/16/21 04/16/21 18:59 06:59 18:59 Intake Total 960 480 Output Total 750 375 Balance 210 105 Weight 178.3 kg Intake: Oral 960 480 Output: Urine 750 375 Other: Voiding Method Indwelling Catheter Indwelling Catheter # Bowel Movements 1 - Labs CBC & Chem 7: 04/14/21 15:23 04/16/21 07:25 Labs: Abnormal Lab Results - Last 24 Hours (Table) 04/16/21 Range/Units 07:25 Chloride 109 H (98-107) mmol/L Carbon Dioxide 21 L (22-30) mmol/L BUN 49 H (7-17) mg/dL Creatinine 2.46 H (0.52-1.04) mg/dL Glucose 133 H (74-99) mg/dL
--- NOTE | 2021-04-16 10:53 | PN ---
PROGRESS NOTE CHIEF COMPLAINT: Acute on chronic congestive heart failure. HISTORY OF PRESENT ILLNESS: This lady is breathing a bit better. Her IV was lost yesterday and we are waiting to have a central line placed, so her IV Lasix drip can be continued. PHYSICAL EXAMINATION: Breath sounds and cardiac sounds cannot be heard. Abdomen is extremely protuberant. Other than that, there has been no change. IMPRESSION: 1. Acute on chronic congestive heart failure. 2. Morbid obesity. 3. Cardiomyopathy. 4. Cardiorenal syndrome. PLAN: Wait for central line to be re-established. In the meantime, try to manage her congestive heart failure as well as possible. She is still planning on returning home and she wants to be a FULL CODE. MMODL / IJN: [id number] /
[2021-04-16] MEDS: BACLOFEN 10 MG TAB PO PRN (21:43)
[2021-04-17] MEDS: HEPARIN SODIUM,PORCINE/PF 5,000 UNIT/0.5 ML SYRINGE SQ SCH ×3 (02:23→20:10)
[2021-04-17] MEDS: PANTOPRAZOLE 40 MG TABLET PO SCH (07:19)
[2021-04-17] MEDS: ASPIRIN 81 MG PO SCH (07:19)
[2021-04-17] MEDS: FUROSEMIDE 40 MG TAB PO SCH ×2 (07:19→15:01)
[2021-04-17] MEDS: METOPROLOL SUCCINATE (ER) 50 MG TAB.ER.24H PO SCH (07:19)
[2021-04-17] MEDS: FERROUS SULFATE 325 MG TAB PO SCH ×3 (07:20→15:00)
[2021-04-17] MEDS: SYMBICORT 160-4.5 MCG INHALER INHALATION SCH ×2 (08:46→19:13)
--- NOTE | 2021-04-17 10:47 | P.PN ---
Subjective Patient is seen in follow-up for acute kidney injury on chronic kidney disease. Creatinine 2.46 as of yesterday. Good urine output. Still complains of swelling in her lower extremities and abdomen. No chest pain or shortness of breath. Vital signs are stable. General: The patient appeared well nourished and normally developed. HEENT: Head exam is unremarkable. LUNGS: Breath sounds decreased. HEART: Rate and Rhythm are regular. ABDOMEN: Soft, obese. EXTREMITITES: 2+ edema. Objective - Vital Signs Vital signs: Vital Signs Temp 98.4 F 04/17/21 07:44 Pulse 87 04/17/21 07:44 Resp 18 04/17/21 07:44 BP 182/112 04/17/21 07:44 Pulse Ox 99 04/17/21 07:44 Intake & Output 04/16/21 04/17/21 04/17/21 18:59 06:59 18:59 Intake Total 480 0 400 Output Total 375 Balance 105 0 400 Weight 179.6 kg Intake: Oral 480 0 400 Output: Urine 375 Other: Voiding Method Indwelling Catheter # Voids 3 1 1 # Bowel Movements 1 1 - Labs CBC & Chem 7: 04/14/21 15:23 04/16/21 07:25 Assessment and Plan Plan: Assessment: 1. Acute kidney injury secondary to ATN secondary to cardiorenal syndrome. Creatinine 2.46 as of yesterday. 2. Chronic kidney disease stage IIIB with baseline creatinine in the range of 1.8-2. 3. Acute on chronic diastolic CHF the tricuspid regurgitation and pulmonary hypertension. 4. Right kidney lesion. Will need urology eval outpatient. 5. Volume overload. 6. Morbid obesity. 7. Metabolic acidosis secondary to acute kidney injury. 8. Mild hyperkalemia secondary to acute kidney injury and metabolic acidosis. Better. Plan: Maintain oral Lasix. I will give her an additional dose of Lasix 40 mg IV once today. Low-salt diet. 1200 mL fluid restriction. Avoid nephrotoxins. Continue to monitor renal function and urine output.
[2021-04-17 11:40] LABS: African American GFR (CKD) 25 (>60 ml/min/1.73 sqM); Anion Gap 8 mmol/L; Blood Urea Nitrogen 46 mg/dL (7-17); Calcium 9.5 mg/dL (8.4-10.2); Carbon Dioxide 25 mmol/L (22-30); Chloride 108 mmol/L (98-107); Glucose 107 mg/dL (74-99); Magnesium 2.2 mg/dL (1.6-2.3); Non-African American GFR(CKD) 22 (>60 ml/min/1.73 sqM); Potassium 4.6 mmol/L (3.5-5.1); Sodium 141 mmol/L (137-145)
[2021-04-17] MEDS ORDERED: FUROSEMIDE 10 MG/ML 4 ML VIAL IV ONE (12:00)
[2021-04-17] MEDS ORDERED: FUROSEMIDE 40 MG TAB PO ONE (12:00)
--- NOTE | 2021-04-17 13:44 | P.PN ---
Subjective This is a pleasant 46-year-old female past medical history significant for chronic kidney disease, chronic diastolic heart failure, hypertension, ob structive sleep apnea and morbid obesity. She does not follow regularly in the office. She is currently being treated for acute exacerbation of heart failure. She is currently maintained on oral Lasix. Blood pressure 182/112 heart rate of 87 afebrile maintaining oxygen saturation on room air. Laboratory data reviewed, sodium 141, potassium 4.6, creatinine 2.53 and magnesium 2.2. GENERAL: Well-appearing, well-nourished and in no acute distress. NECK: Supple without JVD or thyromegaly. LUNGS: Breath sounds clear to auscultation bilaterally. Respiration equal and unlabored. No wheezes, rales or rhonchi. Diminished bilaterally. HEART: Regular rate and rhythm without murmurs, rubs or gallops. S1 and S2 heard. EXTREMITIES: Normal range of motion, 2+ edema. No clubbing or cyanosis. Periph eral pulses intact. ASSESSMENT Acute on chronic diastolic heart failure, EF 65-70% Hypertension Acute on chronic kidney disease Abnormal troponins not suggestive of ACS secondary to chronic kidney disease Obstructive sleep apnea Morbid obesity, BMI 62 PLAN Lasix being managed per nephrology. We will start to resume to home anti-hypertensives, hydralazine 100 mg TID can be resumed. Nurse Practitioner note has been reviewed, I agree with a documented findings and plan of care. Patient was seen and examined. Objective - Vital Signs Vital signs: Vital Signs Temp 98.4 F 04/17/21 07:44 Pulse 87 04/17/21 07:44 Resp 18 04/17/21 07:44 BP 182/112 04/17/21 07:44 Pulse Ox 99 04/17/21 07:44 Intake & Output 04/16/21 04/17/21 04/17/21 18:59 06:59 18:59 Intake Total 480 0 400 Output Total 375 Balance 105 0 400 Weight 179.6 kg Intake: Oral 480 0 400 Output: Urine 375 Other: Voiding Method Indwelling Catheter # Voids 3 1 1 # Bowel Movements 1 1 - Labs CBC & Chem 7: 04/14/21 15:23 04/17/21 11:01 Labs: Abnormal Lab Results - Last 24 Hours (Table) 04/17/21 Range/Units 11:01 Chloride 108 H (98-107) mmol/L BUN 46 H (7-17) mg/dL Creatinine 2.53 H (0.52-1.04) mg/dL Glucose 107 H (74-99) mg/dL
[2021-04-17] MEDS: hydrALAZINE HCL 50 MG TAB PO SCH ×3 (15:01→22:44)
[2021-04-17] MEDS ORDERED: hydrALAZINE HCL 50 MG TAB PO SCH (16:00)
[2021-04-17] MEDS: ACETAMINOPHEN TAB 325 MG TAB PO PRN (20:14)
--- NOTE | 2021-04-17 21:43 | PN ---
PROGRESS NOTE DATE OF SERVICE: 04/17/2021. CHIEF COMPLAINT: Congestive heart failure, renal failure and cardiorenal syndrome. HISTORY OF PRESENT ILLNESS: This lady is still struggling with shortness of breath. She is not able to move around largely because of her obesity. PHYSICAL EXAMINATION: Breath sounds are very poor. Cardiac exam is difficult because of her obesity. The abdomen is protuberant. Extremities are normal. IMPRESSION: 1. Acute congestive heart failure. 2. Chronic congestive heart failure. 3. Cardiomyopathy. 4. Obesity. 5. Renal failure. PLAN: Continue to follow with Cardiology and Nephrology. Her kidney function is worsening. MMODL / IJN: [id number] /
[2021-04-17] MEDS: BACLOFEN 10 MG TAB PO PRN (22:44)
[2021-04-17 23:32] LABS: Appearance,Urine Cloudy (Clear); Bacteria,Urine Occasional /hpf; Bilirubin,Urine Negative (Negative); Blood,Urine Large (Negative); Color,Urine Light Orange; Glucose,Urine (UA) Negative (Negative); Hyaline Casts,Urine 6 /lpf (0-2); Ketones,Urine Negative (Negative); Leukocyte Esterase,Urine Small (Negative); Mucus,Urine Rare /hpf; Nitrite,Urine Negative (Negative); PH, Urine 6.5 (5.0-8.0); Protein,Urine 3+ (Negative); RBC,Urine >182 /hpf (0-5); Specific Gravity,Urine 1.015 (1.001-1.035); Squamous Epithelial Cell,Urine 1 /hpf (0-4); Urobilinogen,Urine <2.0 mg/dL (<2.0); WBC,Urine 11 /hpf (0-5)
[2021-04-18] MEDS: ACETAMINOPHEN TAB 325 MG TAB PO PRN (04:00)
[2021-04-18] MEDS: HEPARIN SODIUM,PORCINE/PF 5,000 UNIT/0.5 ML SYRINGE SQ SCH ×3 (05:27→21:23)
[2021-04-18] MEDS: BACLOFEN 10 MG TAB PO PRN (07:21)
[2021-04-18] MEDS: SYMBICORT 160-4.5 MCG INHALER INHALATION SCH ×2 (07:24→19:18)
[2021-04-18] MEDS: ASPIRIN 81 MG PO SCH (08:23)
[2021-04-18] MEDS: hydrALAZINE HCL 50 MG TAB PO SCH ×3 (08:24→21:22)
[2021-04-18] MEDS: FERROUS SULFATE 325 MG TAB PO SCH ×3 (08:24→15:13)
[2021-04-18] MEDS: PANTOPRAZOLE 40 MG TABLET PO SCH (08:25)
[2021-04-18] MEDS: FUROSEMIDE 40 MG TAB PO SCH (08:26)
[2021-04-18] MEDS ORDERED: SULFAMETHOX-TMP 800-160MG 1 EACH TAB PO SCH (10:00)
--- NOTE | 2021-04-18 10:17 | P.PN ---
Subjective Patient is seen in follow-up for acute kidney injury on chronic kidney disease. Creatinine 2.53 as of yesterday. Good urine output. Complaining of abdominal discomfort with urination. Vital signs are stable. General: The patient appeared well nourished and normally developed. HEENT: Head exam is unremarkable. LUNGS: Breath sounds decreased. HEART: Rate and Rhythm are regular. ABDOMEN: Soft, obese. EXTREMITITES: 2+ edema. Objective - Vital Signs Vital signs: Vital Signs Temp 97.4 F L 04/18/21 07:47 Pulse 107 H 04/18/21 07:47 Resp 18 04/18/21 07:47 BP 150/110 04/18/21 07:47 Pulse Ox 95 04/18/21 07:47 Intake & Output 04/17/21 04/18/21 04/18/21 18:59 06:59 18:59 Intake Total 400 600 Balance 400 600 Weight 183 kg Intake: Oral 400 600 Other: Voiding Method Bedside Commode # Voids 5 # Bowel Movements 1 - Labs CBC & Chem 7: 04/14/21 15:23 04/17/21 11:01 Labs: Abnormal Lab Results - Last 24 Hours (Table) 04/17/21 04/17/21 Range/Units 11:01 21:00 Chloride 108 H (98-107) mmol/L BUN 46 H (7-17) mg/dL Creatinine 2.53 H (0.52-1.04) mg/dL Glucose 107 H (74-99) mg/dL Urine Appearance Cloudy H (Clear) Urine Protein 3+ H (Negative) Urine Blood Large H (Negative) Ur Leukocyte Esterase Small H (Negative) Urine RBC >182 H (0-5) /hpf Urine WBC 11 H (0-5) /hpf Urine Bacteria Occasional H (None) /hpf Hyaline Casts 6 H (0-2) /lpf Urine Mucus Rare H (None) /hpf Microbiology - Last 24 Hours (Table) 04/17/21 21:00 Urine Culture - Preliminary Urine,Voided Assessment and Plan Plan: Assessment: 1. Acute kidney injury secondary to ATN secondary to cardiorenal syndrome. Creatinine 2.53 as of yesterday. 2. Chronic kidney disease stage IIIB with baseline creatinine in the range of 1.8-2. 3. Acute on chronic diastolic CHF the tricuspid regurgitation and pulmonary hypertension. 4. Right kidney lesion. Will need urology eval outpatient. 5. Volume overload. 6. Morbid obesity. 7. Metabolic acidosis secondary to acute kidney injury. Better. 8. Mild hyperkalemia secondary to acute kidney injury and metabolic acidosis. Better. Plan: Maintain oral Lasix - I will increase the dose. Patient does not have an IV access and is refusing to get an IJ line. Low-salt diet. 1200 mL fluid restriction. Avoid nephrotoxins. Continue to monitor renal function and urine output. Check abdominal ultrasound. I will change Bactrim to doxycycline due to abnormal renal function. Follow-up urine culture. UA shows significant hematuria. Patient's currently on her menstrual cycle.
[2021-04-18 10:30] VITALS: BMI 63.1
[2021-04-18] MEDS: METOPROLOL SUCCINATE (ER) 25 MG TAB.ER.24H PO SCH (11:15)
[2021-04-18] MEDS: DOXYCYCLINE 100 MG CAP PO SCH ×2 (11:16→21:23)
[2021-04-18 12:17] LABS: African American GFR (CKD) 28.4 (60.0-200.0); Calcium 9.3 mg/dL (8.7-10.3); Magnesium 1.8 mg/dL (1.5-2.4); Non-African American GFR(CKD) 24.5 (60.0-200.0); Potassium 4.2 mmol/L (3.5-5.5)
--- NOTE | 2021-04-18 12:29 | P.PN ---
Subjective This is a pleasant 46-year-old female past medical history significant for chronic kidney disease, chronic diastolic heart failure, hypertension, ob structive sleep apnea and morbid obesity. She does not follow regularly in the office. She is currently being treated for acute exacerbation of heart failure. She is currently maintained on oral Lasix. Blood pressure 150/110 heart rate 107. Laboratory data reviewed, sodium 141, potassium 4.2 and creatinine 2.3. Yesterday telemetry indicated she had an episode of bradycardia while on high dose beta blockers. GENERAL: Well-appearing, well-nourished and in no acute distress. NECK: Supple without JVD or thyromegaly. LUNGS: Breath sounds clear to auscultation bilaterally. Respiration equal and unlabored. No wheezes, rales or rhonchi. Diminished bilaterally. HEART: Regular rate and rhythm without murmurs, rubs or gallops. S1 and S2 heard. EXTREMITIES: Normal range of motion, 2+ edema. No clubbing or cyanosis. Peripheral pulses intact. ASSESSMENT Acute on chronic diastolic heart failure, EF 65-70% Hypertension Acute on chronic kidney disease Abnormal troponins not suggestive of ACS secondary to chronic kidney disease Obstructive sleep apnea Morbid obesity, BMI 62 PLAN Lasix being managed per nephrology. Initiate on lower dose beta blockers. Ongoing evaluation of abdominal pain and urinary retention. We will follow along as needed, please call with further questions or concerns. Nurse Practitioner note has been reviewed, I agree with a documented findings and plan of care. Patient was seen and examined. Objective - Vital Signs Vital signs: Vital Signs Temp 97.4 F L 04/18/21 07:47 Pulse 107 H 04/18/21 07:47 Resp 18 04/18/21 07:47 BP 150/110 04/18/21 07:47 Pulse Ox 95 04/18/21 07:47 Intake & Output 04/17/21 04/18/21 04/18/21 18:59 06:59 18:59 Intake Total 400 600 Balance 400 600 Weight 183 kg 183 kg Intake: Oral 400 600 Other: Voiding Method Bedside Commode # Voids 5 # Bowel Movements 1 - Labs CBC & Chem 7: 04/14/21 15:23 04/18/21 06:16 Labs: Abnormal Lab Results - Last 24 Hours (Table) 04/17/21 04/18/21 Range/Units 21:00 06:16 Carbon Dioxide 20.0 L (21.6-31.8) mmol/L Anion Gap 13.00 H (4.00-12.00) mmol/L BUN 46.0 H (9.0-27.0) mg/dL Creatinine 2.3 H (0.6-1.5) mg/dL Est GFR (CKD-EPI)AfAm 28.4 L (60.0-200.0) Est GFR (CKD-EPI)NonAf 24.5 L (60.0-200.0) Urine Appearance Cloudy H (Clear) Urine Protein 3+ H (Negative) Urine Blood Large H (Negative) Ur Leukocyte Esterase Small H (Negative) Urine RBC >182 H (0-5) /hpf Urine WBC 11 H (0-5) /hpf Urine Bacteria Occasional H (None) /hpf Hyaline Casts 6 H (0-2) /lpf Urine Mucus Rare H (None) /hpf Microbiology - Last 24 Hours (Table) 04/17/21 21:00 Urine Culture - Preliminary Urine,Voided
[2021-04-18] MEDS: FUROSEMIDE 20 MG TAB PO SCH (15:15)
--- NOTE | 2021-04-18 15:21 | US ---
EXAMINATION TYPE: US abdomen complete DATE OF EXAM: 04/18/2021 COMPARISON: CT & US 04/13/2021 CLINICAL HISTORY: Abd pain, r/o possible kidney stones. EXAM MEASUREMENTS: Liver Length: 11.1 cm Gallbladder Wall: 0.5 cm CBD: 0.5 cm Spleen: 9.3 cm Right Kidney: 10.6 x 5.1 x 5.9 cm Left Kidney: 10.1 x 4.8 x 4.5 cm Technically difficult exam performed portable on patient with large body habitus. Pancreas: Obscured by bowel gas Liver: wnl Gallbladder: multiple stones with shadowing Evidence for sonographic Treviño's sign: No CBD: wnl Spleen: wnl Right Kidney: upper pole cyst measures 1.5 x 1.4 x 1.8 cm Left Kidney: No hydronephrosis or masses seen Upper IVC: wnl Abd Aorta: Obscured by overlying bowel gas The liver is homogenous. Common bile duct is unremarkable. The spleen is unremarkable. Kidneys are symmetric and free of hydronephrosis. No renal lesions are seen. IMPRESSION: Cholelithiasis. Limited exam.
--- NOTE | 2021-04-18 15:37 | PN ---
PROGRESS NOTE DATE OF SERVICE: 04/18/21 CHIEF COMPLAINT: Congestive heart failure, renal failure, cardiorenal syndrome and dysuria. HISTORY OF PRESENT ILLNESS: This lady is still having a lot of trouble with shortness of breath. She has had no chest pain. She is complaining of some dysuria. She did have a Colon catheter in place. Urinalysis suggests urinary tract infection. PHYSICAL EXAMINATION: She is afebrile. Chest demonstrates very poor breath sounds due to her size. The same issue concerns her cardiac exam. The abdomen is protuberant. IMPRESSION: 1. Acute on chronic congestive heart failure. 2. Cardiomyopathy. 3. Renal failure. 4. Cardiorenal syndrome. 5. Morbid obesity. 6. Urinary tract infection. PLAN: 1. Continue with current program. The central IV was never re-established. 2. Bactrim DS. 3. Await further directions from Cardiology and Nephrology. MMODL / IJN: [id number] /
[2021-04-19] MEDS: HEPARIN SODIUM,PORCINE/PF 5,000 UNIT/0.5 ML SYRINGE SQ SCH ×3 (05:18→19:23)
[2021-04-19] MEDS: SYMBICORT 160-4.5 MCG INHALER INHALATION SCH ×2 (07:21→20:21)
[2021-04-19] MEDS: ASPIRIN 81 MG PO SCH (08:43)
[2021-04-19] MEDS: DOXYCYCLINE 100 MG CAP PO SCH ×2 (08:43→21:35)
[2021-04-19] MEDS: PANTOPRAZOLE 40 MG TABLET PO SCH (08:44)
[2021-04-19] MEDS: METOPROLOL SUCCINATE (ER) 25 MG TAB.ER.24H PO SCH (08:44)
[2021-04-19] MEDS: FUROSEMIDE 20 MG TAB PO SCH (08:45)
[2021-04-19] MEDS: FERROUS SULFATE 325 MG TAB PO SCH ×4 (08:45→17:01)
[2021-04-19] MEDS: hydrALAZINE HCL 50 MG TAB PO SCH ×3 (08:47→23:14)
[2021-04-19 11:16] LABS: ALT 11 U/L (4-34); AST 23 U/L (14-36); African American GFR (CKD) 29 (>60 ml/min/1.73 sqM); Albumin 4.2 g/dL (3.5-5.0); Albumin/Globulin Ratio 1.1; Alkaline Phosphatase 74 U/L (38-126); Anion Gap 9 mmol/L; Blood Urea Nitrogen 41 mg/dL (7-17); Calcium 9.8 mg/dL (8.4-10.2); Carbon Dioxide 24 mmol/L (22-30); Chloride 109 mmol/L (98-107); Globulin 3.8 g/dL; Glucose 101 mg/dL (74-99); Non-African American GFR(CKD) 26 (>60 ml/min/1.73 sqM); Potassium 4.4 mmol/L (3.5-5.1); Sodium 142 mmol/L (137-145); Total Bilirubin 0.3 mg/dL (0.2-1.3)
[2021-04-19] MEDS: SACUBITRIL/VALSARTAN 24 MG-26 MG TABLET PO SCH ×2 (11:28→21:35)
--- NOTE | 2021-04-19 12:03 | PN ---
PROGRESS NOTE CHIEF COMPLAINT: Congestive heart failure and renal failure. HISTORY OF PRESENT ILLNESS: This lady is about the same. She is still complaining of shortness of breath and edema. She is refusing a central line. She is on oral Lasix. She continues to be dyspneic. She is being treated for the urinary tract infection. REVIEW OF SYSTEMS: She is still complaining of shortness of breath and some dysuria. On exam breath sounds are difficult to hear but they sound clear. Cardiac exam is unchanged. Her vital signs are otherwise normal. IMPRESSION: 1. Chronic diastolic congestive heart failure. 2. Cardiomyopathy. 3. Morbid obesity. 4. Renal syndrome. 5. Cardiorenal syndrome. 6. Urinary tract infection. PLAN: No change in program. The situation discussed with the patient regarding the fact that she has likely at the end stages of her cardiomyopathy. She was explained that she may not be able to return home under the circumstances. It was also suggested that she reconsider the placement of the central line for IV diuretic management. MMODL / IJN: [id number] /
[2021-04-19 12:08] LABS: Anisocytosis Slight; HCT 34.6 % (34.0-46.0); HGB 9.6 gm/dL (11.4-16.0); Hypochromasia Marked; MCH 21.2 pg (25.0-35.0); MCHC 27.9 g/dL (31.0-37.0); Mean Platelet Volume 8.4; Microcytosis Moderate; Platelet Count 341 k/uL (150-450); Poikilocytosis Slight; RBC 4.56 m/uL (3.80-5.40); RDW 19.5 % (11.5-15.5); WBC 7.5 k/uL (3.8-10.6)
--- NOTE | 2021-04-19 12:44 | P.PN ---
Subjective Patient is seen in follow-up for acute kidney injury on chronic kidney disease. Renal function better. Good urine output. Abdominal pain improved. Vital signs are stable. General: The patient appeared well nourished and normally developed. HEENT: Head exam is unremarkable. LUNGS: Breath sounds decreased. HEART: Rate and Rhythm are regular. ABDOMEN: Soft, obese. EXTREMITITES: 2+ edema. Objective - Vital Signs Vital signs: Vital Signs Temp 97.2 F L 04/19/21 11:37 Pulse 105 H 04/19/21 11:37 Resp 17 04/19/21 11:37 BP 163/100 04/19/21 11:37 Pulse Ox 96 04/19/21 11:37 Intake & Output 04/18/21 04/19/21 04/19/21 18:59 06:59 18:59 Weight 183 kg 181.5 kg Other: Voiding Method Bedside Commode Bedside Commode # Voids 5 4 - Labs CBC & Chem 7: 04/19/21 10:53 04/19/21 10:53 Labs: Abnormal Lab Results - Last 24 Hours (Table) 04/19/21 04/19/21 Range/Units 10:53 10:53 Hgb 9.6 L (11.4-16.0) gm/dL MCV 76.0 L (80.0-100.0) fL MCH 21.2 L (25.0-35.0) pg MCHC 27.9 L (31.0-37.0) g/dL RDW 19.5 H (11.5-15.5) % Chloride 109 H (98-107) mmol/L BUN 41 H (7-17) mg/dL Creatinine 2.23 H (0.52-1.04) mg/dL Glucose 101 H (74-99) mg/dL Microbiology - Last 24 Hours (Table) 04/17/21 21:00 Urine Culture - Final Urine,Voided Assessment and Plan Plan: Assessment: 1. Acute kidney injury secondary to ATN secondary to cardiorenal syndrome. Renal function better. Creatinine 2.23 today. 2. Chronic kidney disease stage IIIB with baseline creatinine in the range of 1.8-2. 3. Acute on chronic diastolic CHF the tricuspid regurgitation and pulmonary hypertension. 4. Right kidney lesion. Will need urology eval outpatient. 5. Volume overload. 6. Morbid obesity. 7. Metabolic acidosis secondary to acute kidney injury. Better. 8. Mild hyperkalemia secondary to acute kidney injury and metabolic acidosis. Resolved. Plan: I will increase the Lasix dose further to 80 mg twice daily orally. Patient does not have an IV access and is refusing to get an IJ line. Low-salt diet. 1200 mL fluid restriction. Avoid nephrotoxins. Continue to monitor renal function and urine output.
[2021-04-19 12:51] LABS: Band Neutrophils % 1 %; Lymphocytes # (M) 1.43 k/uL (1.0-4.8); Neutrophils % (M) 76 %; Nucleated Red Blood Cells 0 /100 WBC (0-0); Total Cells Counted 100
[2021-04-19 12:52] LABS: Poikilocytosis (M) Present; Polychromasia Present
[2021-04-19] MEDS ORDERED: FUROSEMIDE 10 MG/ML 4 ML VIAL IV STA (13:12)
--- NOTE | 2021-04-19 16:56 | XR ---
EXAMINATION TYPE: XR chest 2V DATE OF EXAM: 04/19/2021 COMPARISON: 04/14/2021 HISTORY: Short of breath TECHNIQUE: 2 views FINDINGS: Heart is enlarged. There is no evidence of pleural effusion. Exam limited by patient's size . There is no obvious heart failure. Lungs appear clear of consolidation. There are chest leads. IMPRESSION: Dramatically. No heart failure seen. No change.
[2021-04-19] MEDS: FUROSEMIDE 80 MG TAB PO SCH (17:00)
[2021-04-19] MEDS: ACETAMINOPHEN TAB 325 MG TAB PO PRN (19:22)
[2021-04-20] MEDS: HEPARIN SODIUM,PORCINE/PF 5,000 UNIT/0.5 ML SYRINGE SQ SCH ×3 (03:42→22:21)
[2021-04-20] MEDS: SYMBICORT 160-4.5 MCG INHALER INHALATION SCH ×2 (07:37→19:40)
[2021-04-20] MEDS: FERROUS SULFATE 325 MG TAB PO SCH ×3 (08:11→16:23)
[2021-04-20] MEDS: FUROSEMIDE 80 MG TAB PO SCH (08:11)
[2021-04-20] MEDS: hydrALAZINE HCL 50 MG TAB PO SCH ×3 (08:11→22:22)
[2021-04-20] MEDS: METOPROLOL SUCCINATE (ER) 25 MG TAB.ER.24H PO SCH (08:11)
[2021-04-20] MEDS: ASPIRIN 81 MG PO SCH (08:11)
[2021-04-20] MEDS: DOXYCYCLINE 100 MG CAP PO SCH ×2 (08:11→22:22)
[2021-04-20] MEDS: PANTOPRAZOLE 40 MG TABLET PO SCH (08:11)
--- NOTE | 2021-04-20 09:07 | P.PN ---
Subjective Patient is seen in follow-up for acute kidney injury on chronic kidney disease. Renal function stable as of yesterday. Good urine output. Oral intake here. Still quite edematous. Now has an IV access. Vital signs are stable. General: The patient appeared well nourished and normally developed. HEENT: Head exam is unremarkable. LUNGS: Breath sounds decreased. HEART: Rate and Rhythm are regular. ABDOMEN: Soft, obese. EXTREMITITES: 2+ edema. Objective - Vital Signs Vital signs: Vital Signs Temp 98.3 F 04/20/21 07:36 Pulse 122 H 04/20/21 07:36 Resp 20 04/20/21 07:36 BP 128/78 04/20/21 07:36 Pulse Ox 99 04/20/21 07:36 Intake & Output 04/19/21 04/20/21 04/20/21 18:59 06:59 18:59 Intake Total 920 Output Total 1700 Balance -780 Intake: Oral 920 Output: Urine 1700 Other: Voiding Method Bedside Commode # Bowel Movements 1 - Labs CBC & Chem 7: 04/19/21 10:53 04/19/21 10:53 Labs: Abnormal Lab Results - Last 24 Hours (Table) 04/19/21 04/19/21 Range/Units 10:53 10:53 Hgb 9.6 L (11.4-16.0) gm/dL MCV 76.0 L (80.0-100.0) fL MCH 21.2 L (25.0-35.0) pg MCHC 27.9 L (31.0-37.0) g/dL RDW 19.5 H (11.5-15.5) % Chloride 109 H (98-107) mmol/L BUN 41 H (7-17) mg/dL Creatinine 2.23 H (0.52-1.04) mg/dL Glucose 101 H (74-99) mg/dL Microbiology - Last 24 Hours (Table) 04/17/21 21:00 Urine Culture - Final Urine,Voided Assessment and Plan Plan: Assessment: 1. Acute kidney injury secondary to ATN secondary to cardiorenal syndrome. Renal function better. Creatinine 2.23 yesterday. 2. Chronic kidney disease stage IIIB with baseline creatinine in the range of 1.8-2. 3. Acute on chronic diastolic CHF the tricuspid regurgitation and pulmonary hypertension. 4. Right kidney lesion. Will need urology eval outpatient. 5. Volume overload. 6. Morbid obesity. 7. Metabolic acidosis secondary to acute kidney injury. Better. 8. Mild hyperkalemia secondary to acute kidney injury and metabolic acidosis. Resolved. Plan: I will change Lasix to 80 mg IV twice daily. Low-salt diet. 1200 mL fluid restriction. Avoid nephrotoxins. Continue to monitor renal function and urine output.
[2021-04-20 11:25] LABS: African American GFR (CKD) 32 (>60 ml/min/1.73 sqM); Anion Gap 9 mmol/L; Blood Urea Nitrogen 41 mg/dL (7-17); Calcium 9.6 mg/dL (8.4-10.2); Carbon Dioxide 26 mmol/L (22-30); Chloride 110 mmol/L (98-107); Glucose 99 mg/dL (74-99); Magnesium 1.9 mg/dL (1.6-2.3); Non-African American GFR(CKD) 28 (>60 ml/min/1.73 sqM); Potassium 4.6 mmol/L (3.5-5.1); Sodium 145 mmol/L (137-145)
[2021-04-20] MEDS: SACUBITRIL/VALSARTAN 24 MG-26 MG TABLET PO SCH ×2 (11:31→22:22)
--- NOTE | 2021-04-20 15:46 | PN ---
PROGRESS NOTE DATE OF SERVICE: 04/20/2021 CHIEF COMPLAINT: Chronic congestive heart failure, renal failure and cardiorenal syndrome. HISTORY OF PRESENT ILLNESS: This lady's situation is just about the same. A more adequate IV line has been placed and she is going back on IV Lasix. She stills feels short of breath. Her general health status and prognosis were discussed with the patient. She was told that she needs to start considering end of life matters including the possibility of hospice, retirement, etc. She is not pleased about this discussion. She also has developed tachycardia with a rate of around 112. She may be a candidate for other management medications such as Corlanor, Verquvo, etc. MMODL / IJN: [id number] /
[2021-04-20] MEDS: FUROSEMIDE 10 MG/ML 10 ML VIAL IV SCH (22:21)
[2021-04-21] MEDS: HEPARIN SODIUM,PORCINE/PF 5,000 UNIT/0.5 ML SYRINGE SQ SCH ×3 (04:07→21:42)
[2021-04-21] MEDS: SYMBICORT 160-4.5 MCG INHALER INHALATION SCH ×2 (07:23→21:09)
[2021-04-21 08:58] LABS: African American GFR (CKD) 36 (>60 ml/min/1.73 sqM); Anion Gap 9 mmol/L; Blood Urea Nitrogen 36 mg/dL (7-17); Calcium 9.5 mg/dL (8.4-10.2); Carbon Dioxide 27 mmol/L (22-30); Chloride 108 mmol/L (98-107); Glucose 121 mg/dL (74-99); Magnesium 1.8 mg/dL (1.6-2.3); Non-African American GFR(CKD) 31 (>60 ml/min/1.73 sqM); Potassium 4.1 mmol/L (3.5-5.1); Sodium 144 mmol/L (137-145)
[2021-04-21] MEDS: hydrALAZINE HCL 50 MG TAB PO SCH ×3 (09:45→21:42)
[2021-04-21] MEDS: ASPIRIN 81 MG PO SCH (09:45)
[2021-04-21] MEDS: SACUBITRIL/VALSARTAN 24 MG-26 MG TABLET PO SCH ×2 (09:45→22:14)
[2021-04-21] MEDS: METOPROLOL SUCCINATE (ER) 25 MG TAB.ER.24H PO SCH (09:45)
[2021-04-21] MEDS: PANTOPRAZOLE 40 MG TABLET PO SCH (09:45)
[2021-04-21] MEDS: DOXYCYCLINE 100 MG CAP PO SCH ×2 (09:46→21:42)
[2021-04-21] MEDS: FUROSEMIDE 10 MG/ML 10 ML VIAL IV SCH ×2 (09:46→21:41)
[2021-04-21] MEDS: FERROUS SULFATE 325 MG TAB PO SCH ×3 (09:47→16:59)
--- NOTE | 2021-04-21 10:57 | P.PN ---
Subjective Patient is seen in follow-up for acute kidney injury on chronic kidney disease. Renal function improving with diuresis. Edema improving. Good urine output. Oral intake is good. Vital signs are stable. General: The patient appeared well nourished and normally developed. HEENT: Head exam is unremarkable. LUNGS: Breath sounds decreased. HEART: Rate and Rhythm are regular. ABDOMEN: Soft, obese. EXTREMITITES: 2+ edema. Objective - Vital Signs Vital signs: Vital Signs Temp 98.5 F 04/21/21 07:08 Pulse 107 H 04/21/21 07:08 Resp 20 04/21/21 07:08 BP 120/64 04/21/21 07:08 Pulse Ox 92 L 04/21/21 07:08 Intake & Output 04/20/21 04/21/21 04/21/21 18:59 06:59 18:59 Weight 176 kg Other: Voiding Method Bedside Commode Bedside Commode Bedside Commode - Labs CBC & Chem 7: 04/19/21 10:53 04/21/21 08:10 Labs: Abnormal Lab Results - Last 24 Hours (Table) 04/20/21 04/21/21 Range/Units 09:12 08:10 Chloride 110 H 108 H (98-107) mmol/L BUN 41 H 36 H (7-17) mg/dL Creatinine 2.06 H 1.91 H (0.52-1.04) mg/dL Glucose 121 H (74-99) mg/dL Assessment and Plan Plan: Assessment: 1. Acute kidney injury secondary to ATN secondary to cardiorenal syndrome. Renal function better. Creatinine 1.91 today. 2. Chronic kidney disease stage IIIB with baseline creatinine in the range of 1.8-2. 3. Acute on chronic diastolic CHF the tricuspid regurgitation and pulmonary hypertension. 4. Right kidney lesion. Will need urology eval outpatient. 5. Volume overload. Improving with diuresis. 6. Morbid obesity. 7. Metabolic acidosis secondary to acute kidney injury. Better. 8. Mild hyperkalemia secondary to acute kidney injury and metabolic acidosis. Resolved. Plan: Maintain Lasix 80 mg IV twice daily. Low-salt diet. 1200 mL fluid restriction. Avoid nephrotoxins. Continue to monitor renal function and urine output.
--- NOTE | 2021-04-21 13:21 | PN ---
PROGRESS NOTE DATE OF SERVICE: 04/21/2021 CHIEF COMPLAINT: Congestive heart failure. HISTORY OF PRESENT ILLNESS: This lady is doing a little bit better. With the IV Lasix her breathing improved and BUN and creatinine of dropped slightly. Nephrology has indicated that she can go home Saturday. She is adamant about not looking into rehab or hospice. PHYSICAL EXAMINATION: Breath sounds are diminished. The cardiac exam is normal. The abdomen is soft and very protuberant. IMPRESSION: 1. Acute congestive heart failure. 2. Chronic diastolic congestive heart failure. 3. Cardiomyopathy. 4. Renal failure. PLAN: Continue current efforts at diuresis and we will discharge her Saturday according to Nephrology's plans. MMODL / IJN: [id number] /
[2021-04-22] MEDS: HEPARIN SODIUM,PORCINE/PF 5,000 UNIT/0.5 ML SYRINGE SQ SCH ×3 (05:57→21:56)
--- NOTE | 2021-04-22 08:32 | P.PN ---
Subjective Progress Note Date: 04/22/21 Principal diagnosis: This is a 46-year-old female with cardiorenal syndrome and acute kidney injury, and with chronic kidney disease with a baseline creatinine of 2. She came in with lower extremity edema and shortness of breath. She is diuresed and has responded with good urine output and her documentation of urine output may be an underestimation as she has a full basin of urine on the bedside commode which is just her overnight urine output. She is currently on Lasix 80 IV every 12 years she denies any dizziness she is on room air although at home she uses oxygen. She is known with chronic kidney disease recent cold with pneumonia in November 2020, cardiomyopathy coronary artery disease obstructive sleep apnea and past history of DVT. On examination she is awake alert oriented comfortable She is on room air. HEENT exam no JVP Lungs are clear to auscultation fair air entry bilaterally Heart sounds are unremarkable Abdomen soft obese nontender Extremity exam was minimal edema Neurologically awake alert oriented Past today are pending yesterday creatinine was 1.91 from a peak of 2.3. Electrolytes normal with sodium 144 potassium 4.1 chloride 108 bicarb 27 Last hemoglobin on 04/19/2021 is 9.6 dated Urinalysis shows 3+ proteinuria, urine protein to creatinine ratio is 1.7 g dated 12/21/2020 Assessment: 1. Acute kidney injury secondary to ATN secondary to cardiorenal syndrome. Renal function better. Creatinine 1.91 today. 2. Chronic kidney disease stage IIIB with baseline creatinine in the range of 1.8-2. Etiology may be nephrosclerosis and or obesity he lives related FSGS 3. 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 Acute on chronic diastolic CHF the tricuspid regurgitation and pulmonary hypertension. 4. Right kidney lesion. Will need urology eval outpatient. 5. Volume overload. Improving with diuresis. 6. Morbid obesity. 7. Metabolic acidosis secondary to acute kidney injury. Better. Resolved 8. Mild hyperkalemia secondary to acute kidney injury and metabolic acidosis. Resolved. 9. Anemia of chronic kidney disease rule out iron deficiency Plan: 1. Change IV Lasix to by mouth torsemide. 2. Check iron saturation 3. Monitor labs I's and O's and vital signs. Objective - Vital Signs Vital signs: Vital Signs Temp 98.1 F 04/22/21 07:57 Pulse 114 H 04/22/21 07:57 Resp 20 04/22/21 07:57 BP 120/63 04/22/21 07:57 Pulse Ox 93 L 04/22/21 07:57 Intake & Output 04/21/21 04/22/21 04/22/21 18:59 06:59 18:59 Weight 178 kg Other: Voiding Method Bedside Commode Bedside Commode - Labs CBC & Chem 7: 04/19/21 10:53 04/21/21 08:10 Labs: Abnormal Lab Results - Last 24 Hours (Table) 04/21/21 Range/Units 08:10 Chloride 108 H (98-107) mmol/L BUN 36 H (7-17) mg/dL Creatinine 1.91 H (0.52-1.04) mg/dL Glucose 121 H (74-99) mg/dL
[2021-04-22] MEDS: SYMBICORT 160-4.5 MCG INHALER INHALATION SCH ×2 (09:13→16:17)
[2021-04-22] MEDS: METOPROLOL SUCCINATE (ER) 25 MG TAB.ER.24H PO SCH (09:14)
[2021-04-22] MEDS: TORSEMIDE 20 MG TAB PO SCH (09:14)
[2021-04-22] MEDS: PANTOPRAZOLE 40 MG TABLET PO SCH (09:14)
[2021-04-22] MEDS: ASPIRIN 81 MG PO SCH (09:14)
[2021-04-22] MEDS: SACUBITRIL/VALSARTAN 24 MG-26 MG TABLET PO SCH ×2 (09:14→21:57)
[2021-04-22] MEDS: DOXYCYCLINE 100 MG CAP PO SCH ×2 (09:14→21:57)
[2021-04-22] MEDS: FERROUS SULFATE 325 MG TAB PO SCH ×3 (09:15→15:17)
[2021-04-22] MEDS: hydrALAZINE HCL 50 MG TAB PO SCH ×3 (09:15→21:57)
[2021-04-22 17:23] LABS: African American GFR (CKD) 31.7 (60.0-200.0); Anion Gap 15.2 mmol/L (4.00-12.00); BUN/Creat Ratio 17.14 Ratio (12.00-20.00); Calcium 9.2 mg/dL (8.7-10.3); Carbon Dioxide 23.8 mmol/L (21.6-31.8); Magnesium 1.5 mg/dL (1.5-2.4); Non-African American GFR(CKD) 27.3 (60.0-200.0); Potassium 4.2 mmol/L (3.5-5.5)
[2021-04-22] MEDS ORDERED: METOPROLOL SUCCINATE (ER) 50 MG TAB.ER.24H PO STA ×2 (17:56→20:18)
[2021-04-22] MEDS ORDERED: METOPROLOL SUCCINATE (ER) 25 MG TAB.ER.24H PO ONE (18:30)
--- NOTE | 2021-04-22 19:02 | PN ---
PROGRESS NOTE DATE OF SERVICE: 04/22/2021 CHIEF COMPLAINT: Acute on chronic congestive heart failure. HISTORY OF PRESENT ILLNESS: This lady is doing fairly well. She has been taken off of IV Lasix and placed on oral. She is still tachycardic with a rate of around 118. She denies chest pain. She states she is feeling quite well. PHYSICAL EXAMINATION: Breath sounds are diminished throughout with scattered rales. Cardiac exam demonstrates tachycardia and the abdomen is soft, nontender. Extremities are the same. IMPRESSION: 1. Acute on chronic congestive heart failure. 2. Cardiomyopathy. 3. Renal failure with slightly rising creatinine. 4. Morbid obesity. PLAN: It sounds as though she has been cleared by Nephrology to be discharged Saturday. She has decided to go home with palliative care and this will be arranged. MMODL / IJN: [id number] /
[2021-04-22 23:08] LABS: % Iron Saturation 4.91 (12.00-45.00)
[2021-04-23] MEDS: HEPARIN SODIUM,PORCINE/PF 5,000 UNIT/0.5 ML SYRINGE SQ SCH ×3 (04:39→22:15)
[2021-04-23] MEDS: FERROUS SULFATE 325 MG TAB PO SCH (06:34)
[2021-04-23] MEDS: SYMBICORT 160-4.5 MCG INHALER INHALATION SCH ×2 (08:18→20:44)
[2021-04-23] MEDS: SACUBITRIL/VALSARTAN 24 MG-26 MG TABLET PO SCH ×2 (08:55→22:13)
[2021-04-23] MEDS: ASPIRIN 81 MG PO SCH (08:55)
[2021-04-23] MEDS: hydrALAZINE HCL 50 MG TAB PO SCH ×3 (08:55→22:13)
[2021-04-23] MEDS: METOPROLOL SUCCINATE (ER) 50 MG TAB.ER.24H PO SCH (08:55)
[2021-04-23] MEDS: DOXYCYCLINE 100 MG CAP PO SCH (08:55)
[2021-04-23] MEDS: PANTOPRAZOLE 40 MG TABLET PO SCH (08:55)
[2021-04-23] MEDS: TORSEMIDE 20 MG TAB PO SCH (08:56)
--- NOTE | 2021-04-23 11:33 | P.PN ---
Subjective Progress Note Date: 04/23/21 Principal diagnosis: This is a 46-year-old female with cardiorenal syndrome and acute kidney injury, and with chronic kidney disease with a baseline creatinine of 2. She came in with lower extremity edema and shortness of breath. She she is to feel better subjectively, denies any shortness of breath. Edema is significantly improved she claims she is making large amounts of urine which is not accurately recorded She is able to walk without any difficulty cc no dizziness. She is known with chronic kidney disease recent pneumonia in November 2020, cardiomyopathy coronary artery disease obstructive sleep apnea and past history of DVT. Urinalysis shows 3+ proteinuria, urine protein to creatinine ratio is 1.7 g dated 12/21/2020 Objective - Vital Signs Vital signs: Vital Signs Temp 98.5 F 04/23/21 06:31 Pulse 106 H 04/23/21 06:31 Resp 18 04/23/21 06:31 BP 151/100 04/23/21 06:31 Pulse Ox 92 L 04/23/21 06:31 Intake & Output 04/22/21 04/23/21 04/23/21 18:59 06:59 18:59 Intake Total 1360 Output Total 800 350 Balance 1360 -800 -350 Intake: Oral 1360 Output: Urine 800 350 Other: Voiding Method Bedside Commode Bedside Commode # Voids 4 On examination she is awake alert oriented comfortable She is on room air. HEENT exam no JVP Lungs are clear to auscultation fair air entry bilaterally Heart sounds are unremarkable Abdomen soft obese nontender Extremity exam was minimal edema Neurologically awake alert oriented - Labs CBC & Chem 7: 04/19/21 10:53 04/22/21 07:00 Labs: Abnormal Lab Results - Last 24 Hours (Table) 04/22/21 04/22/21 Range/Units 07:00 08:00 Anion Gap 15.20 H (4.00-12.00) mmol/L BUN 36.0 H (9.0-27.0) mg/dL Creatinine 2.1 H (0.6-1.5) mg/dL Est GFR (CKD-EPI)AfAm 31.7 L (60.0-200.0) Est GFR (CKD-EPI)NonAf 27.3 L (60.0-200.0) Glucose 111 H (70-110) mg/dL Iron 17 L (50-170) ug/dL % Saturation 4.91 L (12.00-45.00) Assessment and Plan Assessment: Assessment: 1. Acute kidney injury secondary to ATN secondary to cardiorenal syndrome. Renal function better. Creatinine 1.91 , up slightly to 2.1 as of yesterday 2. Chronic kidney disease stage IIIB with baseline creatinine in the range of 1.8-2. Etiology may be nephrosclerosis and or obesity he lives related FSGS, urine protein to creatinine ratio is 1.78 dated 12/21/2020 and she has 3+ proteinuria 3. 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 Acute on chronic diastolic CHF the tricuspid regurgitation and pulmonary hypertension. 4. Right kidney lesion. Will need urology eval outpatient. 5. Volume overload. Improving with diuresis. 6. Morbid obesity. 7. Metabolic acidosis secondary to acute kidney injury. Better. Resolved 8. Mild hyperkalemia secondary to acute kidney injury and metabolic acidosis. Resolved. 9. Anemia of chronic kidney dise, with iron deficiency saturation is 4% on 04/14/2021 as well as 04/22/2020: recommendation 1. Continue Torosemide 80 mg by mouth . 2. IV Ferrlecit 125 mg daily 3 doses 3. patient can be discharged from nephrological perspective and followed up as an outpatient including the iron infusion can be done as an outpatient 4. If discharge she needs to be followed up in our office within the next week
[2021-04-23] MEDS: BACLOFEN 10 MG TAB PO PRN (12:07)
[2021-04-23] MEDS: SODIUM FERRIC GLUCONAT-SUCROSE 125 MG in SODIUM CHLORIDE 0.9% 100 ML IVPB SCH (12:07)
[2021-04-24] MEDS: HEPARIN SODIUM,PORCINE/PF 5,000 UNIT/0.5 ML SYRINGE SQ SCH (04:20)
[2021-04-24] MEDS: SYMBICORT 160-4.5 MCG INHALER INHALATION SCH (07:44)
[2021-04-24 07:52] VITALS: BP 121/77; PULSE 99; RESP 18; TEMP 98.7
[2021-04-24] MEDS: PANTOPRAZOLE 40 MG TABLET PO SCH (08:14)
[2021-04-24] MEDS: ASPIRIN 81 MG PO SCH (08:14)
[2021-04-24] MEDS: METOPROLOL SUCCINATE (ER) 50 MG TAB.ER.24H PO SCH (08:14)
[2021-04-24] MEDS: SODIUM FERRIC GLUCONAT-SUCROSE 125 MG in SODIUM CHLORIDE 0.9% 100 ML IVPB SCH (08:15)
[2021-04-24] MEDS: TORSEMIDE 20 MG TAB PO SCH (08:15)
[2021-04-24] MEDS: SACUBITRIL/VALSARTAN 24 MG-26 MG TABLET PO SCH (08:15)
[2021-04-24] MEDS: hydrALAZINE HCL 50 MG TAB PO SCH (08:15)
[2021-04-24] MEDS: BACLOFEN 10 MG TAB PO PRN (08:17)
[2021-04-24 10:59] LABS: African American GFR (CKD) 34 (>60 ml/min/1.73 sqM); Anion Gap 8 mmol/L; Blood Urea Nitrogen 45 mg/dL (7-17); Calcium 9.8 mg/dL (8.4-10.2); Carbon Dioxide 36 mmol/L (22-30); Chloride 99 mmol/L (98-107); Glucose 116 mg/dL (74-99); Non-African American GFR(CKD) 30 (>60 ml/min/1.73 sqM); Potassium 3.6 mmol/L (3.5-5.1); Sodium 143 mmol/L (137-145)
--- NOTE | 2021-04-24 12:04 | PN ---
PROGRESS NOTE The patient is seen for followup for acute kidney injury and chronic kidney disease. She is currently feeling well. Renal function has been stable. Patient is scheduled for discharge today. She was admitted with volume overload. PHYSICAL EXAMINATION: Blood pressure 121/77, heart rate 99 per minute, she is afebrile. Examination of the heart S1-S2. Exam lungs bilateral breath sounds are heard. Decreased breath sounds at bases. Abdomen is soft, nontender, obese. Exam of the lower extremities shows edema 1+ bilaterally. [employer] exam grossly intact. LABS: Labs are not available from today. Last creatinine 2.1 on 04/22/2021. ASSESSMENT: 1. Acute kidney injury, ATN secondary to cardiorenal syndrome. Renal function has been stable. 2. Chronic kidney disease stage 3B. Baseline creatinine 1.8-2 mg/dL. Etiology nephrosclerosis or possible underlying FSGS. 3. 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 4. Acute on chronic diastolic congestive heart failure with tricuspid regurgitation, pulmonary hypertension. 5. Metabolic acidosis secondary to renal failure. 6. Anemia of chronic disease. PLAN: Check labs today. Okay to discharge patient. Followup as outpatient for CKD. MMODL / IJN: [id number] /
--- NOTE | 2021-04-24 21:19 | DS ---
DISCHARGE SUMMARY DATE OF SERVICE: 04/24/2021 CHIEF COMPLAINT: Shortness of breath and anasarca. HISTORY OF PRESENT ILLNESS AND PHYSICAL EXAMINATION: Details of this lady's history and physical can be found in the initial workup. COURSE IN THE HOSPITAL: After admission she was placed on bedrest, started on intravenous fluids and diuretics. She was seen and followed by Cardiology and Nephrology. She eventually required intravenous Lasix drip for diuresis but then her BUN and creatinine started to climb. Eventually these began to level off. She lost her IV and was placed on oral Lasix for several days and then back on IV drip. This was also finally stopped and it was felt that she was stable enough to go home, but she was told that her cardiorenal syndrome is end-stage. Hospice was discussed but she did agree to palliative care. She will go home on palliative care and we will be in touch with her through the office. FINAL DIAGNOSES: 1. Acute on chronic systolic and diastolic heart failure. 2. Chronic renal failure. 3. Cardiorenal syndrome. 4. Morbid obesity. OPERATIONS: None. CONSULTATION: Cardiology and nephrology. She is improved. MMODL / IJN: [id number] /
--- NOTE | 2021-04-25 18:37 | PN ---
PROGRESS NOTE DATE OF SERVICE: 04/23/2021 CHIEF COMPLAINT: Congestive heart failure and renal failure. HISTORY OF PRESENT ILLNESS: This lady is stable. She has agreed to go home on palliative care which is planned for tomorrow after she is seen by that service in consult. She is still quite short of breath. Renal function seems to be stable, but not falling. PHYSICAL EXAMINATION: Breath sounds are diminished due to her size, but sound clear. Cardiac exam is unremarkable. The abdomen is protuberant and soft. IMPRESSION: 1. Acute congestive heart failure. 2. Chronic diastolic congestive heart failure. 3. Cardiomyopathy. 4. Chronic kidney disease. 5. Cardiorenal syndrome. 6. Morbid obesity. PLAN: Discharge tomorrow after she is seen by Palliative Care. MMODL / IJN: [id number] /
== END 2021-04-24 14:29 | disposition home health service (06) | DRG 291 ==
LOC: EC 15:15 → 3SCARD 18:33 → 4SSUR 04-16 11:22
PROVIDERS: ADMIT Family Medicine; ATTEND Family Medicine
PROC: 05H933Z Insertion of Infusion Device into Right Brachial Vein, Percutaneous Approach (ICD-10-PCS; principal; 2021-04-11)
DX: I13.0 Hypertensive heart and chronic kidney disease with heart failure and stage 1 through stage 4 chronic kidney disease, or unspecified chronic kidney disease (principal); I50.43 Acute on chronic combined systolic (congestive) and diastolic (congestive) heart failure; N17.0 Acute kidney failure with tubular necrosis; I31.3 Pericardial effusion (noninflammatory); Z68.44 Body mass index [BMI] 60.0-69.9, adult; E87.3 Alkalosis; E87.2 Acidosis; N39.0 Urinary tract infection, site not specified; R18.8 Other ascites; I27.29 Other secondary pulmonary hypertension; I27.81 Cor pulmonale (chronic); I42.9 Cardiomyopathy, unspecified; D63.1 Anemia in chronic kidney disease; E66.01 Morbid (severe) obesity due to excess calories; I95.9 Hypotension, unspecified; E87.5 Hyperkalemia; F41.9 Anxiety disorder, unspecified; G47.33 Obstructive sleep apnea (adult) (pediatric); Z51.5 Encounter for palliative care; Z99.89 Dependence on other enabling machines and devices; I07.1 Rheumatic tricuspid insufficiency; I25.10 Atherosclerotic heart disease of native coronary artery without angina pectoris; I48.91 Unspecified atrial fibrillation; M17.0 Bilateral primary osteoarthritis of knee; N18.32 Chronic kidney disease, stage 3b; Z79.51 Long term (current) use of inhaled steroids; Z79.82 Long term (current) use of aspirin; Z79.899 Other long term (current) drug therapy; Z82.49 Family history of ischemic heart disease and other diseases of the circulatory system; Z86.16 Personal history of COVID-19; Z86.718 Personal history of other venous thrombosis and embolism; Z87.01 Personal history of pneumonia (recurrent); Z91.19 Patient's noncompliance with other medical treatment and regimen; Z80.8 Family history of malignant neoplasm of other organs or systems; M19.90 Unspecified osteoarthritis, unspecified site; K59.00 Constipation, unspecified; Z98.890 Other specified postprocedural states; Z98.891 History of uterine scar from previous surgery
CPT/HCPCS: 36410; 36415; 71045; 71046; 76700; 76770; 76937; 80048; 80053; 81001; 82272; 83540; 83550; 83735; 83880; 84484; 85025; 85610; 85730; 87086; 93005; 94640; 94760; 96374; 99285

== ENCOUNTER 2022-01-21 02:44 | Inpatient (IN) | payer OTHER ==
[2022-01-21 03:53] LABS: Anisocytosis Moderate; HCT 34.8 % (34.0-46.0); Hypochromasia Marked; MCH 25.5 pg (25.0-35.0); MCHC 29.2 g/dL (31.0-37.0); Mean Platelet Volume 10.1; Microcytosis Slight; Poikilocytosis Slight; RBC 3.99 m/uL (3.80-5.40)
--- NOTE | 2022-01-21 03:53 | XR ---
EXAMINATION TYPE: XR chest 1V portable DATE OF EXAM: 01/21/2022 COMPARISON: 11/26/2021 HISTORY: Short of breath TECHNIQUE: Single view FINDINGS: Heart is enlarged. There is pulmonary interstitial and airspace edema. There are chest lead s. IMPRESSION: Pulmonary edema and cardiomegaly similar to old exam. This is consistent with heart failu re or developing RDS.
[2022-01-21 03:55] LABS: Prothrombin Time 11.2 sec (9.0-12.0)
[2022-01-21 03:57] LABS: HGB 10.2 gm/dL (11.4-16.0); MCV 87.1 fL (80.0-100.0); Platelet Count 295 k/uL (150-450)
[2022-01-21 04:00] LABS: Albumin 3.6 g/dL (3.5-5.0); Calcium 9.6 mg/dL (8.4-10.2); Magnesium 2.5 mg/dL (1.6-2.3); Total Bilirubin 0.7 mg/dL (0.2-1.3)
[2022-01-21 04:49] LABS: Band Neutrophils % 1 %; Neutrophils % (M) 86 %; Nucleated Red Blood Cells 5 /100 WBC (0-0); Total Cells Counted 200
[2022-01-21 04:50] LABS: Anisocytosis (M) Present; Lymphocytes # (M) 1.12 k/uL (1.0-4.8); Monocytes # (M) 0.84 k/uL (0-1.0); Poikilocytosis (M) Present
[2022-01-21 04:52] LABS: Polychromasia Present
[2022-01-21 05:28] LABS: VBG PH 7.25 (7.31-7.41)
[2022-01-21] MEDS ORDERED: ENOXAPARIN 150 MG/ML SYRINGE SQ STA (07:03)
--- NOTE | 2022-01-21 07:10 | ED ---
SOB HPI - General Chief Complaint: Shortness of Breath Stated Complaint: Failure to thrive Time Seen by Provider: 01/21/22 03:05 Source: patient, EMS Mode of arrival: EMS Limitations: altered mental status (Patient appears delirious) - History of Present Illness Initial Comments: This 46-year-old woman whose family had reportedly called ambulance that she was confused and reportedly short of breath. She is not able to give any additional history MD Complaint: shortness of breath -: unknown Consistency: constant Improves With: nothing Worsens With: nothing Known History Of: COPD, congestive heart failure - Related Data Home Medications Medication Instructions Recorded Confirmed Omeprazole 20 mg PO DAILY 11/05/17 01/21/22 minoxidiL 10 mg PO DAILY 11/05/17 01/21/22 cloNIDine HCL [Catapres] 0.3 mg PO TID 01/04/19 01/21/22 hydrALAZINE HCL [Apresoline] 100 mg PO TID 01/04/19 01/21/22 Atorvastatin [Lipitor] 40 mg PO DAILY 11/20/21 01/21/22 Baclofen [Lioresal] 10 mg PO DAILY 11/20/21 01/21/22 Furosemide [Lasix] 80 mg PO DAILY 11/20/21 01/21/22 Ibuprofen [Motrin] 800 mg PO DAILY 11/20/21 01/21/22 Metoprolol Tartrate [Lopressor] 100 mg PO BID 11/20/21 01/21/22 Spironolactone [Aldactone] 25 mg PO DAILY 11/20/21 01/21/22 Allergies Allergy/AdvReac Type Severity Reaction Status Date / Time No Known Allergies Allergy Verified 01/21/22 11:31 Review of Systems ROS Statement: Those systems with pertinent positive or pertinent negative responses have been documented in the HPI. ROS Other: All systems not noted in ROS Statement are negative. Limitations: ROS unobtainable due to patients medical condition (Patient appears delirious) Past Medical History Past Medical History: Coronary Artery Disease (CAD), Chest Pain / Angina, Heart Failure, Hypertension, Osteoarthritis (OA), Renal Disease, Sleep Apnea/CPAP/BIPAP Additional Past Medical History / Comment(s): SVT, sinus pauses, anemia, chronic kidney disease, blood clots-pt stated took xarelto for awhile, arthritis bilateral knees, anemia, constipation, lymphedema History of Any Multi-Drug Resistant Organisms: VRE Date of last positivie culture/infection: 05/03/20 MDRO Source:: VRE URINE Past Surgical History: Section, Hernia Repair Additional Past Surgical History / Comment(s): adominal hernia repair with mesh, cysts removed from stomach Past Anesthesia/Blood Transfusion Reactions: No Reported Reaction Additional Past Anesthesia/Blood Transfusion Reaction / Comment(s): Pt has received blood in the past without reaction. Past Psychological History: Anxiety Smoking Status: Never smoker Past Alcohol Use History: None Reported Past Drug Use History: None Reported - Past Family History Father Family Medical History: Congestive Heart Failure (CHF) Additional Family Medical History / Comment(s): Father from CHF. Mother Family Medical History: Cancer, Hypertension, Sleep Apnea/CPAP/BIPAP Additional Family Medical History / Comment(s): Mother has had cancer removed from ear/head. General Exam Limitations: altered mental status General appearance: obtunded Head exam: Present: atraumatic, normocephalic Eye exam: Present: normal appearance. Absent: scleral icterus, conjunctival injection ENT exam: Present: mucous membranes dry Neck exam: Present: normal inspection, full ROM. Absent: tenderness, meningismus Respiratory exam: Present: respiratory distress, wheezes, rales. Absent: rhonchi, stridor, chest wall tenderness, accessory muscle use Cardiovascular Exam: Present: regular rate, normal rhythm, systolic murmur. Absent: diastolic murmur, rubs, gallop GI/Abdominal exam: Present: soft. Absent: distended, tenderness, guarding, rebound, rigid, mass Extremities exam: Present: normal inspection, normal capillary refill, pedal edema. Absent: calf tenderness Neurological exam: Present: altered. Absent: motor sensory deficit Skin exam: Present: warm, dry, intact, normal color. Absent: rash Course Vital Signs 01/21/22 01/21/22 01/21/22 02:46 02:55 03:15 Temperature 99.3 F Pulse Rate 96 90 92 Respiratory 24 24 24 Rate Blood Pressure 152/103 134/41 143/89 O2 Sat by Pulse 93 L 95 98 Oximetry 01/21/22 01/21/22 01/21/22 05:00 06:00 07:22 Temperature 98.8 F Pulse Rate 96 94 94 Respiratory 26 H 24 25 H Rate Blood Pressure 101/86 149/100 O2 Sat by Pulse 95 98 Oximetry 01/21/22 01/21/22 01/21/22 07:32 11:08 11:18 Temperature Pulse Rate 95 96 96 Respiratory 26 H 25 H 23 Rate Blood Pressure O2 Sat by Pulse Oximetry 01/21/22 01/21/22 01/21/22 11:31 14:14 14:54 Temperature Pulse Rate 101 H 98 94 Respiratory 24 24 21 Rate Blood Pressure 186/123 206/114 O2 Sat by Pulse 100 95 Oximetry 01/21/22 15:04 Temperature Pulse Rate 90 Respiratory 23 Rate Blood Pressure O2 Sat by Pulse Oximetry Procedures - [place] Protocol (Time Out) Nurse: Phu Oneill Medical Decision Making - Medical Decision Making Patient's 46-year-old woman here for altered mental status. She is able answer some simple questions, follow simple one step commands without focal deficit. Clinically patient does appear to have element of congestive heart failure, probably element of restrictive lung disease. She started on BiPAP. Chest x- ray does not appear to show pneumonia, and empiric coverage with Rocephin is started pending results of urinalysis. - Lab Data Result diagrams: 01/21/22 03:22 01/21/22 03:22 Lab Results 01/21/22 01/21/22 01/21/22 Range/Units 03:22 03:22 03:22 WBC 14.0 H (3.8-10.6) k/uL RBC 3.99 (3.80-5.40) m/uL Hgb 10.2 L D (11.4-16.0) gm/dL Hct 34.8 (34.0-46.0) % MCV 87.1 D (80.0-100.0) fL MCH 25.5 (25.0-35.0) pg MCHC 29.2 L (31.0-37.0) g/dL RDW 20.0 H (11.5-15.5) % Plt Count 295 D (150-450) k/uL MPV 10.1 Neutrophils % (Manual) 86 % Band Neuts % (Manual) 1 % Lymphocytes % (Manual) 8 % Monocytes % (Manual) 6 % Neutrophils # (Manual) 12.10 H (1.3-7.7) k/uL Lymphocytes # (Manual) 1.12 (1.0-4.8) k/uL Monocytes # (Manual) 0.84 (0-1.0) k/uL Nucleated RBCs 5 H (0-0) /100 WBC Manual Slide Review Performed Polychromasia Present Hypochromasia Marked Poikilocytosis Slight Poikilocytosis (manual Present Anisocytosis Moderate Anisocytosis (manual) Present Microcytosis Slight PT 11.2 (9.0-12.0) sec INR 1.0 (<1.2) APTT 18.0 L (22.0-30.0) sec D-Dimer 2.48 H (<0.60) mg/L FEU VBG pH (7.31-7.41) VBG pCO2 (37-51) mmHg VBG HCO3 (24-28) mmol/L Sodium 141 (137-145) mmol/L Potassium 5.0 (3.5-5.1) mmol/L Chloride 108 H (98-107) mmol/L Carbon Dioxide 23 (22-30) mmol/L Anion Gap 10 mmol/L BUN 57 H (7-17) mg/dL Creatinine 1.78 H (0.52-1.04) mg/dL Est GFR (CKD-EPI)AfAm 39 (>60 ml/min/1.73 sqM) Est GFR (CKD-EPI)NonAf 34 (>60 ml/min/1.73 sqM) Glucose 114 H (74-99) mg/dL Plasma Lactic Acid Antony (0.7-2.0) mmol/L Calcium 9.6 (8.4-10.2) mg/dL Magnesium 2.5 H (1.6-2.3) mg/dL Total Bilirubin 0.7 (0.2-1.3) mg/dL AST 32 (14-36) U/L ALT 11 (4-34) U/L Alkaline Phosphatase 53 (38-126) U/L Troponin I (0.000-0.034) ng/mL NT-Pro-B Natriuret Pep pg/mL Total Protein 8.0 (6.3-8.2) g/dL Albumin 3.6 (3.5-5.0) g/dL Coronavirus (PCR) (Not Detectd) 01/21/22 01/21/22 01/21/22 Range/Units 03:22 03:22 03:22 WBC (3.8-10.6) k/uL RBC (3.80-5.40) m/uL Hgb (11.4-16.0) gm/dL Hct (34.0-46.0) % MCV (80.0-100.0) fL MCH (25.0-35.0) pg MCHC (31.0-37.0) g/dL RDW (11.5-15.5) % Plt Count (150-450) k/uL MPV Neutrophils % (Manual) % Band Neuts % (Manual) % Lymphocytes % (Manual) % Monocytes % (Manual) % Neutrophils # (Manual) (1.3-7.7) k/uL Lymphocytes # (Manual) (1.0-4.8) k/uL Monocytes # (Manual) (0-1.0) k/uL Nucleated RBCs (0-0) /100 WBC Manual Slide Review Polychromasia Hypochromasia Poikilocytosis Poikilocytosis (manual Anisocytosis Anisocytosis (manual) Microcytosis PT (9.0-12.0) sec INR (<1.2) APTT (22.0-30.0) sec D-Dimer (<0.60) mg/L FEU VBG pH (7.31-7.41) VBG pCO2 (37-51) mmHg VBG HCO3 (24-28) mmol/L Sodium (137-145) mmol/L Potassium (3.5-5.1) mmol/L Chloride (98-107) mmol/L Carbon Dioxide (22-30) mmol/L Anion Gap mmol/L BUN (7-17) mg/dL Creatinine (0.52-1.04) mg/dL Est GFR (CKD-EPI)AfAm (>60 ml/min/1.73 sqM) Est GFR (CKD-EPI)NonAf (>60 ml/min/1.73 sqM) Glucose (74-99) mg/dL Plasma Lactic Acid Antony 1.1 (0.7-2.0) mmol/L Calcium (8.4-10.2) mg/dL Magnesium (1.6-2.3) mg/dL Total Bilirubin (0.2-1.3) mg/dL AST (14-36) U/L ALT (4-34) U/L Alkaline Phosphatase (38-126) U/L Troponin I 0.081 H* (0.000-0.034) ng/mL NT-Pro-B Natriuret Pep 67720 pg/mL Total Protein (6.3-8.2) g/dL Albumin (3.5-5.0) g/dL Coronavirus (PCR) (Not Detectd) 01/21/22 01/21/22 Range/Units 03:22 05:20 WBC (3.8-10.6) k/uL RBC (3.80-5.40) m/uL Hgb (11.4-16.0) gm/dL Hct (34.0-46.0) % MCV (80.0-100.0) fL MCH (25.0-35.0) pg MCHC (31.0-37.0) g/dL RDW (11.5-15.5) % Plt Count (150-450) k/uL MPV Neutrophils % (Manual) % Band Neuts % (Manual) % Lymphocytes % (Manual) % Monocytes % (Manual) % Neutrophils # (Manual) (1.3-7.7) k/uL Lymphocytes # (Manual) (1.0-4.8) k/uL Monocytes # (Manual) (0-1.0) k/uL Nucleated RBCs (0-0) /100 WBC Manual Slide Review Polychromasia Hypochromasia Poikilocytosis Poikilocytosis (manual Anisocytosis Anisocytosis (manual) Microcytosis PT (9.0-12.0) sec INR (<1.2) APTT (22.0-30.0) sec D-Dimer (<0.60) mg/L FEU VBG pH 7.25 L (7.31-7.41) VBG pCO2 58 H (37-51) mmHg VBG HCO3 26 (24-28) mmol/L Sodium (137-145) mmol/L Potassium (3.5-5.1) mmol/L Chloride (98-107) mmol/L Carbon Dioxide (22-30) mmol/L Anion Gap mmol/L BUN (7-17) mg/dL Creatinine (0.52-1.04) mg/dL Est GFR (CKD-EPI)AfAm (>60 ml/min/1.73 sqM) Est GFR (CKD-EPI)NonAf (>60 ml/min/1.73 sqM) Glucose (74-99) mg/dL Plasma Lactic Acid Antony (0.7-2.0) mmol/L Calcium (8.4-10.2) mg/dL Magnesium (1.6-2.3) mg/dL Total Bilirubin (0.2-1.3) mg/dL AST (14-36) U/L ALT (4-34) U/L Alkaline Phosphatase (38-126) U/L Troponin I (0.000-0.034) ng/mL NT-Pro-B Natriuret Pep pg/mL Total Protein (6.3-8.2) g/dL Albumin (3.5-5.0) g/dL Coronavirus (PCR) Not Detected (Not Detectd) Disposition Clinical Impression: Elevated troponin, Congestive heart failure, AMS (altered mental status) Disposition: ADMITTED IP TO THIS HOSP Condition: Poor Is patient prescribed a controlled substance at d/c from ED?: No
[2022-01-21] MEDS ORDERED: methylPREDNISolone SOD SUCCI 125 MG/2 ML VIAL IV STA (07:13)
[2022-01-21] MEDS: IPRATROPIUM-ALBUTEROL 3 ML NEB INHALATION SCH ×4 (07:22→19:10)
[2022-01-21] MEDS: SODIUM CHLORIDE 0.9% 1,000 ML IV SCH (08:30)
--- NOTE | 2022-01-21 12:24 | P.CNPUL ---
History of Present Illness Consult date: 01/21/22 Requesting physician: Kevin Stanford Reason for consult: dyspnea, hypoxemia, pleural effusion, abnormal CXR/CT Chief complaint: Respiratory failure. History of present illness: Pulmonary consult dated 01/21/2022. 46-year-old black female who presented to the emergency department, via EMS, on January 21, for shortness of breath. The patient is seen in the emergency department, room 7. The patient is on BiPAP at 14/5 and 50%. The patient's getting saline at KVO. Also, Rocephin is being given. The patient is poorly responsive. The patient's chest x-ray appears to show CHF. The N-terminal proBNP was elevated. The patient has a history of coronary disease, chest pain, heart failure, hypertension, osteoarthritis, and sleep apnea syndrome. 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 White count is 14, heme him 10.2, hematocrit 34.8, and platelet count 295,000. D-dimer is 2.48. Venous CO2 is 58 with a pH is 7.25. Sodium 141, potassium 5, chlorides 108, CO2 23, anion gap 10, BUN 57, creatinine 1.78. Troponin is 0.081. N-terminal proBNP was 16,900. Albumin is 3.6. Testing for rizo virus was negative. Chest x-ray shows evidence of cardiomegaly, and pulmonary edema/CHF. Review of Systems REVIEW OF SYSTEMS: CONSTITUTIONAL: [Negative.] NEUROLOGIC: [ Negative.] HEENT: [ Negative.] CARDIAC: Shortness of breath. PULMONARY: Shortness of breath. GI: [Negative.] : [Negative.] RHEUMATOLOGIC: [ Negative.] IMMUNOLOGIC: [ Negative.] ENDOCRINE: [Negative. ] DERMATOLOGIC: [Negative.] Past Medical History Past Medical History: Coronary Artery Disease (CAD), Chest Pain / Angina, Heart Failure, Hypertension, Osteoarthritis (OA), Renal Disease, Sleep A pnea/CPAP/BIPAP Additional Past Medical History / Comment(s): SVT, sinus pauses, anemia, chronic kidney disease, blood clots-pt stated took xarelto for awhile, arthritis bilat eral knees, anemia, constipation, lymphedema History of Any Multi-Drug Resistant Organisms: VRE Date of last positivie culture/infection: 05/03/20 MDRO Source:: VRE URINE Past Surgical History: Section, Hernia Repair Additional Past Surgical History / Comment(s): adominal hernia repair with mesh, cysts removed from stomach Past Anesthesia/Blood Transfusion Reactions: No Reported Reaction Additional Past Anesthesia/Blood Transfusion Reaction / Comment(s): Pt has received blood in the past without reaction. Past Psychological History: Anxiety Smoking Status: Never smoker Past Alcohol Use History: None Reported Past Drug Use History: None Reported - Past Family History Father Family Medical History: Congestive Heart Failure (CHF) Additional Family Medical History / Comment(s): Father from CHF. Mother Family Medical History: Cancer, Hypertension, Sleep Apnea/CPAP/BIPAP Additional Family Medical History / Comment(s): Mother has had cancer removed from ear/head. Medications and Allergies Home Medications Medication Instructions Recorded Confirmed Type Omeprazole 20 mg PO DAILY 11/05/17 01/21/22 History minoxidiL 10 mg PO DAILY 11/05/17 01/21/22 History cloNIDine HCL [Catapres] 0.3 mg PO TID 01/04/19 01/21/22 History hydrALAZINE HCL [Apresoline] 100 mg PO TID 01/04/19 01/21/22 History Atorvastatin [Lipitor] 40 mg PO DAILY 11/20/21 01/21/22 History Baclofen [Lioresal] 10 mg PO DAILY 11/20/21 01/21/22 History Furosemide [Lasix] 80 mg PO DAILY 11/20/21 01/21/22 History Ibuprofen [Motrin] 800 mg PO DAILY 11/20/21 01/21/22 History Metoprolol Tartrate [Lopressor] 100 mg PO BID 11/20/21 01/21/22 History Spironolactone [Aldactone] 25 mg PO DAILY 11/20/21 01/21/22 History Allergies Allergy/AdvReac Type Severity Reaction Status Date / Time No Known Allergies Allergy Verified 01/21/22 11:31 Physical Exam Osteopathic Statement: *. No significant issues noted on an osteopathic structural exam other than those noted in the History and Physical/Consult. Vitals: Vital Signs Temp Pulse Resp BP Pulse Ox 01/21/22 11:31 101 H 24 186/123 100 01/21/22 11:18 96 23 01/21/22 11:08 96 25 H 01/21/22 07:32 95 26 H 01/21/22 07:22 94 25 H 01/21/22 06:00 98.8 F 94 24 149/100 98 01/21/22 05:00 96 26 H 101/86 95 01/21/22 03:15 92 24 143/89 98 01/21/22 02:55 90 24 134/41 95 01/21/22 02:46 99.3 F 96 24 152/103 93 L Intake and Output 01/20/22 01/21/22 01/21/22 22:59 06:59 14:59 Other: Weight 171.004 kg No acute distress, obese black female, currently on BiPAP. The patient is somewhat lethargic, and unable to give any additional history. HEENT examination is grossly unremarkable. Neck supple. Full range of motion. No adenopathy thyromegaly or neck vein distention. Cardiovascular examination reveals regular rhythm rate. S1-S2 normal. No S3 or S4. No discernible murmur noted. Heart rate 101. Heart sounds are distant. Lungs reveal bilateral rhonchi and crackles. No wheezes. Breath sounds equal bilaterally. Abdomen his, with bowel sounds. Extremities are intact. Mild edema. No cyanosis or clubbing. Skin is without rash or lesion. Neurologic examination is difficult to evaluate. The patient's very lethargic and somnolent. Results - Laboratory Findings CBC and BMP: 01/21/22 03:22 01/21/22 03:22 PT/INR, D-dimer PT 11.2 sec (9.0-12.0) 01/21/22 03:22 INR 1.0 (<1.2) 01/21/22 03:22 D-Dimer 2.48 mg/L FEU (<0.60) H 01/21/22 03:22 Abnormal lab findings: Abnormal Labs 01/21/22 01/21/22 01/21/22 03:22 03:22 03:22 WBC 14.0 H Hgb 10.2 L D MCHC 29.2 L RDW 20.0 H Neutrophils # (Manual) 12.10 H Nucleated RBCs 5 H APTT 18.0 L D-Dimer 2.48 H VBG pH VBG pCO2 Chloride 108 H BUN 57 H Creatinine 1.78 H Glucose 114 H Magnesium 2.5 H Troponin I 01/21/22 01/21/22 03:22 05:20 WBC Hgb MCHC RDW Neutrophils # (Manual) Nucleated RBCs APTT D-Dimer VBG pH 7.25 L VBG pCO2 58 H Chloride BUN Creatinine Glucose Magnesium Troponin I 0.081 H* - Diagnostic Findings Chest x-ray: image reviewed Assessment and Plan Assessment: Acute hypoxemic respiratory failure secondary to CHF. Recent episode of acute respiratory failure requiring intubation and mechanical ventilation, October 2021. History of acute mental status changes. Morbid obesity, with obstructive sleep apnea syndrome. History of CAD. History of hypertension. History of CHF. History of DVT. History of anxiety. History of chronic kidney disease. History of SVT. Plan: Plan dated 01/21/2022. Currently, the patient is seen in room 7, in the emergency room. She is on BiPAP. The patient should have a brain CT, to rule out acute abnormality, giving her mental status changes, and also should have a drug screen done. The chest x-ray, labs, medications are all reviewed. Chest x-ray appears to show heart failure, the patient's BNP is quite elevated. The patient was recently in the hospital a couple months back in October, with acute mental status changes, and required intubation and mechanical ventilation. The patient is receiving Rocephin. If not or ready done, a urinalysis should be performed. Prognosis is guarded. We will continue to follow the patient and make recommendations where appropriate. Time with Patient: Greater than 30
--- NOTE | 2022-01-21 14:20 | XR ---
EXAMINATION TYPE: XR Hip Complete LT DATE OF EXAM: 01/21/2022 1:45 PM INDICATION: Patient age:Female; 46 years old; Reason for study: left hip pain; COMPARISON: None. TECHNIQUE: The left hip was examined in the frontal and lateral projections and a AP pelvis. FINDINGS: Poor penetration limits evaluation of the left hip. Ovoid metallic opacity likely outside t he patient. No gross evidence of any acute osseous pathology, joint dislocation, or soft tissue swell ing. IMPRESSION: Extremely limited exam due to underpenetration and technique.
[2022-01-21] MEDS: cloNIDine HCL 0.1 MG TAB PO SCH (19:04)
[2022-01-21] MEDS: methylPREDNISolone SOD SUCCI 125 MG/2 ML VIAL IV SCH ×2 (19:04→19:19)
[2022-01-21] MEDS: hydrALAZINE HCL 50 MG TAB PO SCH ×2 (19:05→19:19)
[2022-01-21] MEDS: SPIRONOLACTONE 25 MG TAB PO SCH (19:05)
[2022-01-21] MEDS: METOPROLOL TARTRATE 50 MG TAB PO SCH (21:43)
[2022-01-21] MEDS ORDERED: VANCOMYCIN IV PER PHARMACY 1 EACH MISC MISCELLANE PRN (22:03)
[2022-01-21] MEDS ORDERED: VANCOMYCIN 2,500 MG in SODIUM CHLORIDE 0.9% 500 ML 500 ML IVPB ONE (22:15)
[2022-01-22] MEDS: methylPREDNISolone SOD SUCCI 125 MG/2 ML VIAL IV SCH ×4 (00:55→23:55)
--- NOTE | 2022-01-22 08:10 | HP ---
HISTORY AND PHYSICAL CHIEF COMPLAINT: Shortness of breath. HISTORY OF PRESENT ILLNESS: This is another admission for this 46-year-old morbidly obese -[place] female. She was in the hospital several months ago and was transferred to [facility]. She was admitted for an extended period time and now is back in town with home care. She came in because of shortness of breath. She was hypercarbic. In the emergency room her BUN was 57 with a creatinine 1.78. White count was 14,000. Troponin was up slightly. REVIEW OF SYSTEMS: She denies chest pain, but she is short of breath. Remainder of her past medical history is unchanged from her recent admissions. PHYSICAL EXAMINATION: Blood pressure is 186/123 with a pulse of 90, respirations of 36, and she is afebrile. In general she appeared to be obese and she was short of breath. Head, ears, eyes, nose, mouth and throat were unremarkable. Neck veins could not be assessed. Breath sounds were diminished throughout. The cardiac exam demonstrated what sounded like sinus tachycardia. The abdomen was soft and protuberant. Extremities were edematous. Neurologically she is intact. She is admitted to the hospital with the diagnoses: 1. Acute on chronic congestive heart failure. 2. Cardiomyopathy. 3. Respiratory failure with hypercarbia. 4. Renal failure. 5. Morbid obesity. PLAN: 1. Bedrest. 2. IV fluids. 3. Diurese. MORENO / BRADLEY: [id number] /
[2022-01-22 10:01] LABS: Albumin 3.2 g/dL (3.5-5.0); Calcium 9.6 mg/dL (8.4-10.2); Potassium 5.4 mmol/L (3.5-5.1); Total Bilirubin 0.5 mg/dL (0.2-1.3); Total Protein 7.2 g/dL (6.3-8.2)
[2022-01-22 10:47] LABS: Glucose,Whole Blood 116 mg/dL (75-99)
[2022-01-22 11:05] LABS: Anisocytosis Slight; Basophils % (A) 0 %; Eosinophils # (A) 0.1 k/uL (0-0.7); Eosinophils % (A) 1 %; HCT 33.5 % (34.0-46.0); HGB 9.9 gm/dL (11.4-16.0); Hypochromasia Marked; Lymphocytes # (A) 0.4 k/uL (1.0-4.8); Lymphocytes % (A) 4 %; MCH 25.5 pg (25.0-35.0); MCHC 29.6 g/dL (31.0-37.0); Mean Platelet Volume 10.1; Microcytosis Slight; Monocytes # (A) 0.2 k/uL (0-1.0); Monocytes % (A) 3 %; Neutrophils # (A) 8.1 k/uL (1.3-7.7); Neutrophils % (A) 91 %; Platelet Count 200 k/uL (150-450); Poikilocytosis Slight; RDW 19.9 % (11.5-15.5); WBC 8.9 k/uL (3.8-10.6)
[2022-01-22] MEDS: IPRATROPIUM-ALBUTEROL 3 ML NEB INHALATION SCH ×3 (11:17→21:48)
--- NOTE | 2022-01-22 11:30 | CONS ---
CONSULTATION CHIEF COMPLAINT: Uncontrolled hypertension. Ankita is a 46-year-old lady with history of coronavirus, severe hypertension and morbid obesity who is admitted to hospital with shortness of breath and has had severe uncontrolled hypertension, for which Cardiology had been consulted. At the time of my evaluation, patient some chest pain, has chronic leg edema, has shortness of breath and is currently on oxygen supplement. Her EKG shows sinus tachycardia but is otherwise within normal limits. We do not have access to her labs at this time, as the [facility] system is not functioning. She is on multiple blood pressure medications, including Catapres 0.3 mg three times a day, hydralazine 100 t.i.d., metoprolol 100 b.i.d., minoxidil and Aldactone. In spite of all this, the blood pressure is poorly controlled at 150/101. I am adding amlodipine 10 mg daily. Patient will have an echocardiogram if she has not had one in the recent past. Patient states that she had coronavirus infection and was in the hospital for almost a month and at that time developed quite a bit of musculoskeletal debility and has had problems ambulating. PAST MEDICAL HISTORY: Significant for hypertension, obesity, and it is unclear if she has COPD or not. HOME MEDICATIONS: We do not have a list, as the computer system is not working. ALLERGIES: SHE DENIES ANY. FAMILY HISTORY: Negative for premature coronary artery disease. SOCIAL HISTORY: Negative for current smoking, EtOH abuse or drug abuse. REVIEW OF SYSTEMS: HEENT is unremarkable. CARDIAC: As described above. RESPIRATORY: As described above. GI: Negative. GENITOURINARY: Negative. ALLERGY/IMMUNOLOGY: Negative. SKIN: Negative. MUSCULOSKELETAL: Significant for arthritis. PSYCHOSOCIAL: Negative. DERMATOLOGY: Negative. CONSTITUTIONAL: Negative. ONCOLOGICAL: Negative. SYSTEMS CHECKOUT MECHANIC: Negative. PHYSICAL EXAMINATION: Patient is comfortable at rest. Blood pressure is 150/101, respiratory rate 18, heart rate is 88 beats per minute. Chest exam reveals diminished air entry bilaterally, but I do not hear any crackles or rhonchi. Heart exam reveals first and second heart sounds. S4 is heard. Abdomen is soft. Examination of extremities reveals bilateral moderate pitting edema. There is no jugular venous distention. There is no carotid bruit. Labs are not available. EKG does not reveal any ischemic changes. ASSESSMENT: Severe uncontrolled hypertension. PLAN: I reviewed her medication. I will add amlodipine. I will review the echo if there is one. If not, we will order one. This evaluation of the patient and this dictation are being done at a time when the [facility] system is not working. The information may be incomplete and could be inaccurate. MORENO / CEZARN: [id number] /
[2022-01-22 11:47] LABS: Glucose,Whole Blood 183 mg/dL (75-99)
[2022-01-22] MEDS: cloNIDine HCL 0.1 MG TAB PO SCH ×3 (16:14→16:41)
[2022-01-22] MEDS: SODIUM CHLORIDE 0.9% 1,000 ML IV SCH (16:14)
[2022-01-22] MEDS: METOPROLOL TARTRATE 50 MG TAB PO SCH ×3 (16:14→19:52)
[2022-01-22] MEDS: hydrALAZINE HCL 50 MG TAB PO SCH ×3 (16:14→16:41)
[2022-01-22] MEDS: FUROSEMIDE 80 MG TAB PO SCH (16:14)
[2022-01-22] MEDS: PANTOPRAZOLE 40 MG TABLET PO SCH (16:14)
[2022-01-22] MEDS: ATORVASTATIN 40 MG TAB PO SCH (16:14)
[2022-01-22] MEDS: SPIRONOLACTONE 25 MG TAB PO SCH (16:15)
[2022-01-22 16:21] LABS: Glucose,Whole Blood 167 mg/dL (75-99)
[2022-01-22] MEDS: ACETAMINOPHEN TAB 325 MG TAB PO PRN (19:53)
--- NOTE | 2022-01-22 20:01 | PN ---
PROGRESS NOTE DATE OF SERVICE: 01/22/2022. CHIEF COMPLAINT: Respiratory failure and congestive heart failure. HISTORY OF PRESENT ILLNESS: This lady is just about the same. Blood pressure is improved. She is still slightly short of breath. She is having no chest pain. PHYSICAL EXAMINATION: Breath sounds are diminished due to her size. Cardiac exam is also difficult to auscultate. Abdomen is protuberant and soft. IMPRESSION: 1. Respiratory failure with hypercarbia. 2. Congestive heart failure. 3. Cardiomyopathy. 4. Obstructive sleep apnea. 5. Pickwickian syndrome. 6. Hypertension. 7. Renal failure. PLAN: Continue with management of her respiratory function as well as her renal failure and congestive heart failure. MMODL / IJN: [id number] /
[2022-01-22 20:38] LABS: Glucose,Whole Blood 242 mg/dL (75-99)
[2022-01-22] MEDS ORDERED: VANCOMYCIN 2,500 MG in SODIUM CHLORIDE 0.9% 500 ML 500 ML IVPB SCH (23:00)
[2022-01-23] MEDS: SODIUM CHLORIDE 0.9% 250 ML IV SCH ×10 (00:40→07:44)
[2022-01-23 01:59] LABS: Anisocytosis Slight; Basophils # (A) 0.1 k/uL (0-0.2); Basophils % (A) 0 %; Eosinophils # (A) 0.1 k/uL (0-0.7); Eosinophils % (A) 1 %; HGB 9.6 gm/dL (11.4-16.0); Hypochromasia Marked; Lymphocytes # (A) 0.4 k/uL (1.0-4.8); Lymphocytes % (A) 3 %; MCH 24.8 pg (25.0-35.0); MCHC 29.2 g/dL (31.0-37.0); MCV 84.9 fL (80.0-100.0); Mean Platelet Volume 9.2; Microcytosis Slight; Monocytes # (A) 0.6 k/uL (0-1.0); Monocytes % (A) 5 %; Neutrophils # (A) 9.9 k/uL (1.3-7.7); Neutrophils % (A) 88 %; Platelet Count 261 k/uL (150-450); Poikilocytosis Slight; RBC 3.88 m/uL (3.80-5.40); RDW 19.9 % (11.5-15.5); WBC 11.3 k/uL (3.8-10.6)
[2022-01-23 02:05] LABS: Calcium 9.2 mg/dL (8.4-10.2)
[2022-01-23] MEDS ORDERED: SODIUM CHLORIDE 0.9% 500 ML 500 ML IV ONE (02:15)
[2022-01-23 02:24] LABS: Potassium 6.3 mmol/L (3.5-5.1)
[2022-01-23] MEDS ORDERED: DEXTROSE 50% SYRINGE 50 ML IVP STA (02:38)
[2022-01-23] MEDS ORDERED: INSULIN REGULAR 100 UNIT/ML VIAL (IV) IV ONE (02:39)
[2022-01-23] MEDS ORDERED: CALCIUM CHLORIDE 100 MG/ML 10 ML SYRINGE IVP STA (02:40)
[2022-01-23] MEDS: cloNIDine HCL 0.1 MG TAB PO SCH ×2 (02:50→08:42)
[2022-01-23] MEDS: hydrALAZINE HCL 50 MG TAB PO SCH ×2 (02:50→08:42)
[2022-01-23 05:54] LABS: Glucose,Whole Blood 126 mg/dL (75-99)
[2022-01-23 05:54] LABS: Potassium 5.4 mmol/L (3.5-5.1)
[2022-01-23] MEDS: INSULIN ASPART (NovoLOG) 100 UNIT/ML VIAL SQ SCH ×4 (05:57→20:26)
[2022-01-23] MEDS: methylPREDNISolone SOD SUCCI 125 MG/2 ML VIAL IV SCH (06:42)
[2022-01-23] MEDS: PANTOPRAZOLE 40 MG TABLET PO SCH (06:43)
[2022-01-23] MEDS: IPRATROPIUM-ALBUTEROL 3 ML NEB INHALATION SCH ×4 (07:58→19:25)
[2022-01-23] MEDS: FUROSEMIDE 80 MG TAB PO SCH (08:42)
[2022-01-23] MEDS: METOPROLOL TARTRATE 50 MG TAB PO SCH ×2 (08:42→20:27)
[2022-01-23] MEDS: ATORVASTATIN 40 MG TAB PO SCH (08:47)
[2022-01-23] MEDS ORDERED: SODIUM CHLORIDE 0.9% 1,000 ML IV SCH (09:00)
[2022-01-23 10:30] LABS: Calcium 9.6 mg/dL (8.4-10.2); Potassium 5.5 mmol/L (3.5-5.1)
--- NOTE | 2022-01-23 11:32 | XR ---
EXAMINATION TYPE: XR chest 1V portable DATE OF EXAM: 01/23/2022 CLINICAL HISTORY: Difficulty breathing progress study. TECHNIQUE: Single AP portable semiupright view of the chest is obtained. COMPARISON: Chest x-ray from 2 days earlier and older studies. FINDINGS: Gross cardiomegaly redemonstrated obscures portions of left lung similar to prior. Likely persistent bilateral lower lung opacities. Osseous structures are intact. IMPRESSION: Suboptimal study. Cardiomegaly with bilateral lower lung acute infiltrates and/or edema l ikely remain present. No significant change from most recent prior.
[2022-01-23 11:36] LABS: Glucose,Whole Blood 130 mg/dL (75-99)
[2022-01-23 11:55] LABS: Appearance,Urine Cloudy (Clear); Bacteria,Urine Few /hpf; Bilirubin,Urine 1+ (Negative); Blood,Urine Trace (Negative); Budding Yeast,Urine Few /hpf; Color,Urine Dark Yellow; Glucose,Urine (UA) Negative (Negative); Ketones,Urine Negative (Negative); Leukocyte Esterase,Urine Large (Negative); Mucus,Urine Rare /hpf; Nitrite,Urine Negative (Negative); PH, Urine 5.5 (5.0-8.0); Protein,Urine 2+ (Negative); RBC,Urine 34 /hpf (0-5); Specific Gravity,Urine 1.025 (1.001-1.035); Squamous Epithelial Cell,Urine 1 /hpf (0-4); WBC,Urine 160 /hpf (0-5)
[2022-01-23] MEDS ORDERED: amLODIPine 10 MG TAB PO SCH (12:00)
--- NOTE | 2022-01-23 12:39 | P.NPCON ---
History of Present Illness - Reason for Consult acute renal failure, chronic renal failure - History of Present Illness Reason for consultation: Acute kidney injury on chronic kidney disease History of present illness: Patient is a 46-year-old female seen in renal consultation for acute kidney injury on chronic kidney disease. Patient has chronic kidney disease stage IV with baseline creatinine near 2. Creatinine was 1.78 on admission and is up to 2.79 today. Patient was last seen in the office in 2016. Patient states she moved to [place] now is back in [place]. She presented to the hospital with worsening shortness of breath. Patient states she was admitted at [facility] about a month ago and was diagnosed with coronavirus infection. Patient was initially hypertensive at the time of admission but recently her blood pressure is running low in the systolic 70s to 90s. Most recent blood pressure from this morning was 92/60. Antihypertensives have been discontinued. She was also on spironolactone and that was stopped due to hyperkalemia. Potassium level this morning was 5.5. She has been started on a Lasix drip and will be transferred to the ICU. She may require vasopressor support. She is on 4 L nasal cannula. No vomiting or diarrhea. Oral intake fair. No gross hematuria. States she has history of borderline diabetes. I do see Motrin and her home medication list but patient not exactly sure of her meds. Vital signs are stable. Blood pressure in the lower side. General: Awake and alert. No acute distress. HEENT: Head exam is unremarkable. LUNGS: Breath sounds decreased. HEART: Rate and Rhythm are regular. ABDOMEN: Soft, obese. 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 Additional Past Medical History / Comment(s): SVT, sinus pauses, anemia, chronic kidney disease, blood clots-pt stated took xarelto for awhile, arthritis bilater al knees, anemia, constipation, lymphedema History of Any Multi-Drug Resistant Organisms: VRE Date of last positivie culture/infection: 05/03/20 MDRO Source:: VRE URINE Past Surgical History: Section, Hernia Repair Additional Past Surgical History / Comment(s): adominal hernia repair with mesh, cysts removed from stomach Past Anesthesia/Blood Transfusion Reactions: No Reported Reaction Additional Past Anesthesia/Blood Transfusion Reaction / Comment(s): Pt has received blood in the past without reaction. Past Psychological History: Anxiety Additional Psychological History / Comment(s): Pt takes ativan when needed for anxiety and states it helps. Pt lives at home with her 2 children. is independent. no pets. Smoking Status: Never smoker Past Alcohol Use History: None Reported Past Drug Use History: None Reported - Past Family History Father Family Medical History: Congestive Heart Failure (CHF) Additional Family Medical History / Comment(s): Father from CHF. Mother Family Medical History: Cancer, Hypertension, Sleep Apnea/CPAP/BIPAP Additional Family Medical History / Comment(s): Mother has had cancer removed from ear/head. Medications and Allergies Home Medications Medication Instructions Recorded Confirmed Type Omeprazole 20 mg PO DAILY 11/05/17 01/21/22 History minoxidiL 10 mg PO DAILY 11/05/17 01/21/22 History cloNIDine HCL [Catapres] 0.3 mg PO TID 01/04/19 01/21/22 History hydrALAZINE HCL [Apresoline] 100 mg PO TID 01/04/19 01/21/22 History Atorvastatin [Lipitor] 40 mg PO DAILY 11/20/21 01/21/22 History Baclofen [Lioresal] 10 mg PO DAILY 11/20/21 01/21/22 History Furosemide [Lasix] 80 mg PO DAILY 11/20/21 01/21/22 History Ibuprofen [Motrin] 800 mg PO DAILY 11/20/21 01/21/22 History Metoprolol Tartrate [Lopressor] 100 mg PO BID 11/20/21 01/21/22 History Spironolactone [Aldactone] 25 mg PO DAILY 11/20/21 01/21/22 History Allergies Allergy/AdvReac Type Severity Reaction Status Date / Time No Known Allergies Allergy Verified 01/21/22 11:31 Physical Exam Vitals: Vital Signs Temp Pulse Resp BP Pulse Ox 01/23/22 09:03 97.8 F 84 20 84 L 01/23/22 08:44 92/60 01/23/22 03:30 98 F 86 25 H 90/56 100 01/23/22 02:00 72/41 01/23/22 01:10 82/48 01/22/22 23:52 84 75/41 01/22/22 23:00 98.5 F 90 27 H 82/61 99 01/22/22 22:30 86 75/43 01/22/22 19:40 98.2 F 100 26 H 110/65 100 01/22/22 16:00 98.0 F 95 18 101/98 01/22/22 14:00 102 H 22 Intake and Output 01/22/22 01/23/22 01/23/22 22:59 06:59 14:59 Intake Total 330 120 Output Total 750 Balance -420 120 Intake: Oral 330 120 Output: Urine 750 Other: Voiding Method Diaper Diaper Indwelling Catheter External Catheter External Catheter Results - Lab Results Most recent lab results Calcium 9.6 mg/dL (8.4-10.2) 01/23/22 10:03 Magnesium 2.5 mg/dL (1.6-2.3) H 01/21/22 03:22 01/23/22 01:40 01/23/22 10:03 Assessment and Plan Plan: Assessment: 1. Acute kidney injury secondary to ATN secondary to hypotension, cardiorenal syndrome. Creatinine 2.79 today. 2. Chronic kidney disease stage IV with baseline creatinine near 2 likely due t o nephrosclerosis and cardiorenal syndrome. Patient unsure if she is diabetic or not. Serologies in 2020 were negative except serum immunofixation showed possible IgG kappa. 3. Volume overload. 4. Acute on chronic systolic CHF with ejection fraction of 45-50%. 5. Hyperkalemia secondary to acute kidney injury and spironolactone. 6. Morbid obesity. 7. Anemia of chronic kidney disease. Iron deficiency. Plan: Patient started on Lasix drip. Add midodrine. Hold for systolic blood pressure greater than 110. May need dobutamine if no improvement in urine output. Follow-up repeat echocardiogram. Check renal ultrasound. Check hepatitis panel and hemoglobin A1c. Check SPEP and serum free light chains. Repeat potassium level this evening. Avoid nephrotoxins. Continue to monitor renal function and urine output. Check iron studies. Check a.m. cortisol level Thank you for the consultation. I will continue to follow the patient with you during her hospital stay.
--- NOTE | 2022-01-23 12:42 | P.PN ---
Subjective Progress Note Date: 01/23/22 HISTORY OF PRESENT ILLNESS: Patient examined this morning at the bedside. Patient denies chest pain or pressure. She denies shortness of breath. Patient's blood pressure is on the lower side this morning with a systolic in the 80s and 90s. Per nursing, patient has had 40 mL of urine output. Patient's creatinine has increased to 2.70. PHYSICAL EXAM: VITAL SIGNS: Reviewed. GENERAL: Well-developed in no acute distress. NECK: Supple. No JVD or thyromegaly LUNGS: Respirations even and unlabored. Lungs diminished to auscultation bilaterally. HEART: Regular rate and rhythm. S1 and S2 heard. EXTREMITIES: Normal range of motion. No clubbing or cyanosis. Peripheral pulses intact. No lower extremity edema ASSESSMENT: Uncontrolled hypertension on admission Hypotension Acute on chronic kidney disease CHF with pEF, intermediate or borderline, 45-50% Hyperlipidemia PLAN: Hold BP medications Obtain 2D echo to assess cardiac structure and function Patient has been started on Lasix drip per pulmonary Nephro consulted. Await recommendations Further recommendations pending patient course Nurse practitioner note has been reviewed by physician. Signing provider agrees with the documented findings, assessment, and plan of care. Objective - Vital Signs Vital signs: Vital Signs Temp 97.8 F 01/23/22 09:03 Pulse 84 01/23/22 09:03 Resp 20 01/23/22 09:03 BP 92/60 01/23/22 08:44 Pulse Ox 84 L 01/23/22 09:03 Intake & Output 01/22/22 01/23/22 01/23/22 18:59 06:59 18:59 Intake Total 330 120 Output Total 700 50 Balance -370 -50 120 Intake: Oral 330 120 Output: Urine 700 50 Other: Voiding Method Diaper Indwelling Catheter External Catheter - Labs CBC & Chem 7: 01/23/22 01:40 01/23/22 10:03 Labs: Abnormal Lab Results - Last 24 Hours (Table) 01/22/22 01/22/22 01/23/22 Range/Units 16:19 20:29 01:40 WBC 11.3 H (3.8-10.6) k/uL Hgb 9.6 L (11.4-16.0) gm/dL Hct 33.0 L (34.0-46.0) % MCH 24.8 L (25.0-35.0) pg MCHC 29.2 L (31.0-37.0) g/dL RDW 19.9 H (11.5-15.5) % Neutrophils # 9.9 H (1.3-7.7) k/uL Lymphocytes # 0.4 L (1.0-4.8) k/uL Potassium (3.5-5.1) mmol/L Chloride (98-107) mmol/L Carbon Dioxide (22-30) mmol/L BUN (7-17) mg/dL Creatinine (0.52-1.04) mg/dL Glucose (74-99) mg/dL POC Glucose (mg/dL) 167 H 242 H (75-99) mg/dL Urine Appearance (Clear) Urine Protein (Negative) Urine Blood (Negative) Urine Bilirubin (Negative) Ur Leukocyte Esterase (Negative) Urine RBC (0-5) /hpf Urine WBC (0-5) /hpf Urine WBC Clumps (None) /hpf Urine Bacteria (None) /hpf Urine Mucus (None) /hpf Urine Yeast (Budding) (None) /hpf 01/23/22 01/23/22 01/23/22 Range/Units 01:40 05:20 05:45 WBC (3.8-10.6) k/uL Hgb (11.4-16.0) gm/dL Hct (34.0-46.0) % MCH (25.0-35.0) pg MCHC (31.0-37.0) g/dL RDW (11.5-15.5) % Neutrophils # (1.3-7.7) k/uL Lymphocytes # (1.0-4.8) k/uL Potassium 6.3 H* 5.4 H (3.5-5.1) mmol/L Chloride 110 H (98-107) mmol/L Carbon Dioxide 21 L (22-30) mmol/L BUN 73 H (7-17) mg/dL Creatinine 2.49 H 2.70 H (0.52-1.04) mg/dL Glucose 139 H (74-99) mg/dL POC Glucose (mg/dL) 126 H (75-99) mg/dL Urine Appearance (Clear) Urine Protein (Negative) Urine Blood (Negative) Urine Bilirubin (Negative) Ur Leukocyte Esterase (Negative) Urine RBC (0-5) /hpf Urine WBC (0-5) /hpf Urine WBC Clumps (None) /hpf Urine Bacteria (None) /hpf Urine Mucus (None) /hpf Urine Yeast (Budding) (None) /hpf 01/23/22 01/23/22 01/23/22 Range/Units 10:03 11:35 11:40 WBC (3.8-10.6) k/uL Hgb (11.4-16.0) gm/dL Hct (34.0-46.0) % MCH (25.0-35.0) pg MCHC (31.0-37.0) g/dL RDW (11.5-15.5) % Neutrophils # (1.3-7.7) k/uL Lymphocytes # (1.0-4.8) k/uL Potassium 5.5 H (3.5-5.1) mmol/L Chloride 109 H (98-107) mmol/L Carbon Dioxide (22-30) mmol/L BUN 70 H (7-17) mg/dL Creatinine 2.79 H (0.52-1.04) mg/dL Glucose 136 H (74-99) mg/dL POC Glucose (mg/dL) 130 H (75-99) mg/dL Urine Appearance Cloudy H (Clear) Urine Protein 2+ H (Negative) Urine Blood Trace H (Negative) Urine Bilirubin 1+ H (Negative) Ur Leukocyte Esterase Large H (Negative) Urine RBC 34 H (0-5) /hpf Urine WBC 160 H (0-5) /hpf Urine WBC Clumps Few H (None) /hpf Urine Bacteria Few H (None) /hpf Urine Mucus Rare H (None) /hpf Urine Yeast (Budding) Few H (None) /hpf Microbiology - Last 24 Hours (Table) 01/21/22 03:22 Blood Culture Gram Stain - Preliminary Blood Blood Culture - Preliminary Staphylococcus epidermidis
[2022-01-23] MEDS: FUROSEMIDE 100 MG in SODIUM CHLORIDE 0.9% 90 ML IV SCH ×2 (12:50→20:27)
[2022-01-23 12:51] LABS: Glucose,Whole Blood 140 mg/dL (75-99)
--- NOTE | 2022-01-23 13:53 | P.PN ---
Subjective Progress Note Date: 01/23/22 46-year-old black female who presented to the emergency department, via EMS, on January 21, for shortness of breath. The patient is seen in the emergency department, room 7. The patient is on BiPAP at 14/5 and 50%. The patient's getting saline at KVO. Also, Rocephin is being given. The patient is poorly responsive. The patient's chest x-ray appears to show CHF. The N-terminal proBNP was elevated. The patient has a history of coronary disease, chest pain, heart failure, hypertension, osteoarthritis, and sleep apnea syndrome. 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 White count is 14, heme him 10.2, hematocrit 34.8, and platelet count 295,000. D-dimer is 2.48. Venous CO2 is 58 with a pH is 7.25. Sodium 141, potassium 5, chlorides 108, CO2 23, anion gap 10, BUN 57, creatinine 1.78. Troponin is 0.081. N-terminal proBNP was 16,900. Albumin is 3.6. Testing for rizo virus was negative. Chest x-ray shows evidence of cardiomegaly, and pulmonary edema/CHF. The patient is seen today 01/23/2022 in follow-up on the selective care unit. She is maintaining O2 saturations in the mid 80s on 4 L/m per nasal cannula. Otherwise she does well on BiPAP 12/5 and 40% FiO2. She's been afebrile. His x-ray continues to show cardiomegaly with bilateral lower lung acute infiltrate/edema. No significant change from previous. Blood culture revealed no growth. White count 11.3. Hemoglobin 9.6. Platelets 261. Sodium 139. Potassium 5.5. Chloride 19. Bicarb 22. BUN was 70. Creatinine 2.09. Glucose 136. Urinalysis cloudy with large leukocytes and few bacteria. She is currently negative 420 ML's balance. She remains on DuoNeb inhalations. Initiated on a Lasix drip at 10 mg per hour. Objective - Vital Signs Vital signs: Vital Signs Temp 97.8 F 01/23/22 09:03 Pulse 84 01/23/22 09:03 Resp 20 01/23/22 09:03 BP 92/60 01/23/22 08:44 Pulse Ox 84 L 01/23/22 09:03 Intake & Output 01/22/22 01/23/22 01/23/22 18:59 06:59 18:59 Intake Total 330 120 Output Total 700 50 Balance -370 -50 120 Intake: Oral 330 120 Output: Urine 700 50 Other: Voiding Method Diaper Indwelling Catheter External Catheter - Exam No acute distress, morbidly obese 46-year-old black female, currently on BiPAP at 40% FiO2. The patient is somewhat lethargic, and unable to give any additional history. HEENT examination is grossly unremarkable. Neck supple. Full range of motion. No adenopathy thyromegaly or neck vein distention. Cardiovascular examination reveals regular rhythm rate. S1-S2 normal. No S3 or S4. No discernible murmur noted. Heart rate 84. Heart sounds are distant. Lungs reveal bilateral rhonchi and crackles. No wheezes. Breath sounds equal bilaterally. Abdomen his, with bowel sounds. Extremities are intact. Mild edema. No cyanosis or clubbing. Skin is without rash or lesion. Neurologic examination is difficult to evaluate. The patient's very lethargic and somnolent. - Labs CBC & Chem 7: 01/23/22 01:40 01/23/22 10:03 Labs: Abnormal Lab Results - Last 24 Hours (Table) 01/22/22 01/22/22 01/23/22 Range/Units 16:19 20:29 01:40 WBC 11.3 H (3.8-10.6) k/uL Hgb 9.6 L (11.4-16.0) gm/dL Hct 33.0 L (34.0-46.0) % MCH 24.8 L (25.0-35.0) pg MCHC 29.2 L (31.0-37.0) g/dL RDW 19.9 H (11.5-15.5) % Neutrophils # 9.9 H (1.3-7.7) k/uL Lymphocytes # 0.4 L (1.0-4.8) k/uL Potassium (3.5-5.1) mmol/L Chloride (98-107) mmol/L Carbon Dioxide (22-30) mmol/L BUN (7-17) mg/dL Creatinine (0.52-1.04) mg/dL Glucose (74-99) mg/dL POC Glucose (mg/dL) 167 H 242 H (75-99) mg/dL Urine Appearance (Clear) Urine Protein (Negative) Urine Blood (Negative) Urine Bilirubin (Negative) Ur Leukocyte Esterase (Negative) Urine RBC (0-5) /hpf Urine WBC (0-5) /hpf Urine WBC Clumps (None) /hpf Urine Bacteria (None) /hpf Urine Mucus (None) /hpf Urine Yeast (Budding) (None) /hpf 01/23/22 01/23/22 01/23/22 Range/Units 01:40 05:20 05:45 WBC (3.8-10.6) k/uL Hgb (11.4-16.0) gm/dL Hct (34.0-46.0) % MCH (25.0-35.0) pg MCHC (31.0-37.0) g/dL RDW (11.5-15.5) % Neutrophils # (1.3-7.7) k/uL Lymphocytes # (1.0-4.8) k/uL Potassium 6.3 H* 5.4 H (3.5-5.1) mmol/L Chloride 110 H (98-107) mmol/L Carbon Dioxide 21 L (22-30) mmol/L BUN 73 H (7-17) mg/dL Creatinine 2.49 H 2.70 H (0.52-1.04) mg/dL Glucose 139 H (74-99) mg/dL POC Glucose (mg/dL) 126 H (75-99) mg/dL Urine Appearance (Clear) Urine Protein (Negative) Urine Blood (Negative) Urine Bilirubin (Negative) Ur Leukocyte Esterase (Negative) Urine RBC (0-5) /hpf Urine WBC (0-5) /hpf Urine WBC Clumps (None) /hpf Urine Bacteria (None) /hpf Urine Mucus (None) /hpf Urine Yeast (Budding) (None) /hpf 01/23/22 01/23/22 01/23/22 Range/Units 10:03 11:35 11:40 WBC (3.8-10.6) k/uL Hgb (11.4-16.0) gm/dL Hct (34.0-46.0) % MCH (25.0-35.0) pg MCHC (31.0-37.0) g/dL RDW (11.5-15.5) % Neutrophils # (1.3-7.7) k/uL Lymphocytes # (1.0-4.8) k/uL Potassium 5.5 H (3.5-5.1) mmol/L Chloride 109 H (98-107) mmol/L Carbon Dioxide (22-30) mmol/L BUN 70 H (7-17) mg/dL Creatinine 2.79 H (0.52-1.04) mg/dL Glucose 136 H (74-99) mg/dL POC Glucose (mg/dL) 130 H (75-99) mg/dL Urine Appearance Cloudy H (Clear) Urine Protein 2+ H (Negative) Urine Blood Trace H (Negative) Urine Bilirubin 1+ H (Negative) Ur Leukocyte Esterase Large H (Negative) Urine RBC 34 H (0-5) /hpf Urine WBC 160 H (0-5) /hpf Urine WBC Clumps Few H (None) /hpf Urine Bacteria Few H (None) /hpf Urine Mucus Rare H (None) /hpf Urine Yeast (Budding) Few H (None) /hpf 01/23/22 Range/Units 12:49 WBC (3.8-10.6) k/uL Hgb (11.4-16.0) gm/dL Hct (34.0-46.0) % MCH (25.0-35.0) pg MCHC (31.0-37.0) g/dL RDW (11.5-15.5) % Neutrophils # (1.3-7.7) k/uL Lymphocytes # (1.0-4.8) k/uL Potassium (3.5-5.1) mmol/L Chloride (98-107) mmol/L Carbon Dioxide (22-30) mmol/L BUN (7-17) mg/dL Creatinine (0.52-1.04) mg/dL Glucose (74-99) mg/dL POC Glucose (mg/dL) 140 H (75-99) mg/dL Urine Appearance (Clear) Urine Protein (Negative) Urine Blood (Negative) Urine Bilirubin (Negative) Ur Leukocyte Esterase (Negative) Urine RBC (0-5) /hpf Urine WBC (0-5) /hpf Urine WBC Clumps (None) /hpf Urine Bacteria (None) /hpf Urine Mucus (None) /hpf Urine Yeast (Budding) (None) /hpf Microbiology - Last 24 Hours (Table) 01/21/22 03:22 Blood Culture Gram Stain - Preliminary Blood Blood Culture - Preliminary Staphylococcus epidermidis Assessment and Plan Assessment: Acute hypoxemic respiratory failure secondary to CHF requiring BiPAP support. Initiated on a Lasix drip at 10 mg per hour Recent episode of acute respiratory failure requiring intubation and mechanical ventilation, October 2021. History of acute mental status changes. Morbid obesity, with obstructive sleep apnea syndrome. History of CAD. History of hypertension. History of CHF. History of DVT. History of anxiety. History of chronic kidney disease. History of SVT. Plan: The patient was seen and evaluated Chest x-ray and labs reviewed Echocardiogram pending Initiated on Lasix drip at 10 mg per hour Titrate the FiO2 as tolerated We will continue to follow I have personally seen and examined the patient, performed the documentation and the assessment and plan as written. Number of minutes spent on the visit: 10. I have personally seen and examined the patient and reviewed the documentation. I performed a joint evaluation with the nurse practitioner in this evaluation was done more than 20 minutes. I fully agree with the documentation above and the plan of care. I saw this patient on the medical floor today. The patient was having signs of fluid overload. The patient increased lower extremity edema. Chest x-ray was consistent with CHF and the patient had obvious signs of right-sided heart failure. The patient was not producing adequate amount of urine output. The proBNP level was quite elevated. The patient had a proBNP level of 16,900, and the patient had also a BUN of 70 with a creatinine of 2.7 o n today's evaluation with a potassium level of 5.5. The UA was also abnormal as the patient showed a total of 160 WBCs with WBC clumps and few budding yeast and few bacteria. Urine cultures still pending for now. The patient which is up to the intensive care unit. The patient was started on IV Rocephin as a broad- spectrum antibiotic coverage regarding possible urinary tract infection. We will replace the Colon catheter. We'll monitor urine output. We'll start the patient latest hepatomegaly is an hour. Would use norepinephrine infusion if needed for blood pressure support. We will use BiPAP overnight. The patient is currently on 4 L of oxygen by nasal cannula with a pulse ox ranging between 85- 90%. Made recommendations to transfer this patient to the ICU.
[2022-01-23] MEDS: MIDODRINE 5 MG TAB PO SCH ×2 (14:05→17:18)
--- NOTE | 2022-01-23 15:26 | PN ---
PROGRESS NOTE CHIEF COMPLAINT: Shortness of breath, hypotension, congestive heart and renal failures. HISTORY OF PRESENT ILLNESS: This lady is doing poorly. During the night her blood pressure was down to around 80 systolically. When extra fluids are applied, she becomes more dyspneic and goes into heart failure. Her potassium was also high during the night and this is being corrected. REVIEW OF SYSTEMS: She states that she "wants to go home." PHYSICAL EXAMINATION: Breath sounds are extremely poor with scattered rales and rhonchi bilaterally along with expiratory wheezing. Cardiac exam is unchanged with the irregularly irregular pulse. Abdomen is massively protuberant. Extremities are normal. IMPRESSION: 1. Respiratory failure. 2. Congestive heart failure. 3. Chronic renal failure. 4. Cardiorenal syndrome. 5. Hyperkalemia. PLAN: Continue with efforts to manage her congestive heart failure as well as her renal failure. She is a poor candidate to go home at this time. MMODL / IJN: [id number] /
[2022-01-23] MEDS: SODIUM CHLORIDE 0.9% 1,000 ML IV SCH (15:58)
--- NOTE | 2022-01-23 16:32 | US ---
EXAMINATION TYPE: US kidneys/renal and bladder DATE OF EXAM: 01/23/2022 COMPARISON: CT abdomen and pelvis 2018 CLINICAL HISTORY: letty. Exam limitations due to large body habitus and unable to move in bed. EXAM MEASUREMENTS: Right Kidney: 10.7 x 4.6 x 5.6 cm Left Kidney: Not visualized due to body habitus and bowel gas. Incidental finding gallstones visualized. Right Kidney: No hydronephrosis or masses seen Left Kidney: Not seen. Bladder: Not seen Bilateral Jets seen: no Suboptimal study. No gross hydronephrosis in the right kidney. Left kidney not clearly seen on images saved. Bladder not successfully visualized. IMPRESSION: Suboptimal study. No right-sided hydronephrosis.
[2022-01-23 17:11] LABS: Glucose,Whole Blood 139 mg/dL (75-99)
[2022-01-23 20:24] LABS: Glucose,Whole Blood 128 mg/dL (75-99)
[2022-01-23 22:21] LABS: Urine Alcohol Negative (Negative); Urine Barbiturate Negative (Negative); Urine Cocaine Negative (Negative); Urine Methadone Negative (Negative); Urine Opiates Negative (Negative); Urine Phencyclidine Negative (Negative)
[2022-01-23 22:49] LABS: % Iron Saturation 5.1 (12.00-45.00); Ferritin 15.8 ng/mL (10.0-291.0)
[2022-01-23 22:51] LABS: Hepatitis B Core IgM Nonreactive (Nonreactive); Hepatitis B Surface Antigen Nonreactive (Nonreactive); Hepatitis C IgG Antibody Nonreactive (Nonreactive)
[2022-01-24 01:43] LABS: Hepatitis A Antibody IgM Nonreactive (Nonreactive)
[2022-01-24] MEDS: FUROSEMIDE 100 MG in SODIUM CHLORIDE 0.9% 90 ML IV SCH ×2 (05:53→15:29)
[2022-01-24 06:08] LABS: Calcium 9.4 mg/dL (8.4-10.2); Potassium 4.8 mmol/L (3.5-5.1)
[2022-01-24 06:33] LABS: Anisocytosis Slight; Basophils % (A) 0 %; Eosinophils % (A) 0 %; HCT 34.2 % (34.0-46.0); HGB 9.9 gm/dL (11.4-16.0); Hypochromasia Marked; Lymphocytes # (A) 0.8 k/uL (1.0-4.8); Lymphocytes % (A) 7 %; MCH 25.5 pg (25.0-35.0); MCHC 28.9 g/dL (31.0-37.0); MCV 88.2 fL (80.0-100.0); Mean Platelet Volume 10.5; Monocytes # (A) 0.6 k/uL (0-1.0); Monocytes % (A) 5 %; Neutrophils # (A) 8.9 k/uL (1.3-7.7); Neutrophils % (A) 84 %; Platelet Count 300 k/uL (150-450); Poikilocytosis Slight; RBC 3.88 m/uL (3.80-5.40); RDW 19.9 % (11.5-15.5); WBC 10.5 k/uL (3.8-10.6)
--- NOTE | 2022-01-24 06:37 | XR ---
EXAMINATION TYPE: XR chest 1V portable DATE OF EXAM: 01/24/2022 CLINICAL HISTORY: Difficulty breathing progress study. TECHNIQUE: Single AP portable upright view of the chest is obtained. COMPARISON: Chest x-ray from one day earlier and older studies. FINDINGS: Gross cardiomegaly redemonstrated obscures portions of left lung similar to prior. Persist ent bilateral lower lung opacities. Underlying scoliotic curvature. IMPRESSION: Suboptimal study. Cardiomegaly with bilateral lower lung acute infiltrates and/or edema l ikely remain present. No significant change from one day earlier.
[2022-01-24] MEDS: MIDODRINE 5 MG TAB PO SCH ×3 (06:41→17:29)
[2022-01-24] MEDS: INSULIN ASPART (NovoLOG) 100 UNIT/ML VIAL SQ SCH ×4 (06:42→21:06)
[2022-01-24] MEDS: SODIUM CHLORIDE 0.9% 1,000 ML IV SCH (06:42)
[2022-01-24] MEDS: PANTOPRAZOLE 40 MG TABLET PO SCH (06:42)
--- NOTE | 2022-01-24 07:49 | CA ---
Transthoracic Echo Report Name: Ankita Sorto Age: 46 Gender: F : 1975 Exam Date: 01/23/2022 11:16 Exam Location: [facility] Ht (in): 67 Wt (lb): 377 Ordering Physician: Zara Fowler Attending/Referring Phys: [id number], Janeth [employer] Operator Ingrid Bailon RDCS Procedure CPT: Indications: LV function Cardiac Hx: Technical Quality: Very technically difficult study Contrast 1: Lumason Total Dose (mL): 4 Contrast 2: Total Dose (mL): MEASUREMENTS (Male / Female) Normal Values 2D ECHO LV Diastolic Diameter PLAX 3.5 cm 4.2 - 5.9 / 3.9 - 5.3 cm LV Systolic Diameter PLAX 2.5 cm IVS Diastolic Thickness 2.9 cm 0.6 - 1.0 / 0.6 - 0.9 cm LVPW Diastolic Thickness 2.4 cm 0.6 - 1.0 / 0.6 - 0.9 cm LV Relative Wall Thickness 1.5 RV Internal Dim ED PLAX 4.6 cm FINDINGS Left Ventricle Technically difficult poor quality study. Echo contrast was used LV systolic function appears to be normal. There is also significant for right ventricular enlargement Right Ventricle Severe right ventricular dilatation. There is right ventricular enlargement consistent with right ventricular volume overload. Right Atrium Left Atrium Mitral Valve Aortic Valve Tricuspid Valve Pulmonic Valve Pericardium Aorta CONCLUSIONS Technically difficult study. LV systolic function appears to be normal and the right ventricle is enlarged Previewed by: Dr. Abraham Florence MD (Electronically Signed) Final Date: 24 January 2022 07:47
[2022-01-24] MEDS: IPRATROPIUM-ALBUTEROL 3 ML NEB INHALATION SCH ×4 (08:17→19:29)
[2022-01-24] MEDS ORDERED: PANTOPRAZOLE 40 MG/10 ML VIAL IVP SCH (09:15)
[2022-01-24] MEDS: METOPROLOL TARTRATE 50 MG TAB PO SCH ×2 (09:21→21:07)
[2022-01-24] MEDS: ATORVASTATIN 40 MG TAB PO SCH (09:21)
--- NOTE | 2022-01-24 09:38 | P.PN ---
Subjective Patient is seen in follow-up for acute kidney injury on chronic kidney disease. Creatinine 3.28 today. Urine output 30-40 mL per hour. On 3 L is a cannula. Blood pressure 118/70. Denies chest pain or shortness of breath. No vomiting or diarrhea. Vital signs are stable. General: No acute distress. HEENT: Head exam is unremarkable. On nasal cannula. LUNGS: Breath sounds decreased. HEART: Rate and Rhythm are regular. ABDOMEN: Soft, obese. EXTREMITITES: 2+ edema. Objective - Vital Signs Vital signs: Vital Signs Temp 97.9 F 01/24/22 04:00 Pulse 95 01/24/22 07:00 Resp 17 01/24/22 07:00 BP 118/70 01/24/22 07:00 Pulse Ox 94 L 01/24/22 07:00 Intake & Output 01/23/22 01/24/22 01/24/22 18:59 06:59 18:59 Intake Total 410 180.500 Output Total 95 475 40 Balance 315 -294.500 -40 Weight 183.569 kg Intake: Intake, IV Titration 50 180.500 Amount Furosemide 100 mg In 180.500 Sodium Chloride 0.9% 90 ml @ 10 MG/HR 10 mls/hr IV .Q10H [facility] Rx#: [id number] cefTRIAXone 1 gm In 50 Sodium Chloride 0.9% 50 ml @ 100 mls/hr IVPB Q24HR [facility] Rx#:[id number] Oral 360 Output: Urine 95 475 40 Other: Voiding Method Indwelling Catheter Indwelling Catheter - Labs CBC & Chem 7: 01/24/22 05:28 01/24/22 05:28 Labs: Abnormal Lab Results - Last 24 Hours (Table) 01/23/22 01/23/22 01/23/22 Range/Units 05:20 10:03 11:35 Hgb (11.4-16.0) gm/dL MCHC (31.0-37.0) g/dL RDW (11.5-15.5) % Neutrophils # (1.3-7.7) k/uL Lymphocytes # (1.0-4.8) k/uL Potassium 5.5 H (3.5-5.1) mmol/L Chloride 109 H (98-107) mmol/L Carbon Dioxide (22-30) mmol/L BUN 70 H (7-17) mg/dL Creatinine 2.79 H (0.52-1.04) mg/dL Glucose 136 H (74-99) mg/dL POC Glucose (mg/dL) 130 H (75-99) mg/dL Iron 19 L (50-170) ug/dL % Saturation 5.10 L (12.00-45.00) Urine Appearance (Clear) Urine Protein (Negative) Urine Blood (Negative) Urine Bilirubin (Negative) Ur Leukocyte Esterase (Negative) Urine RBC (0-5) /hpf Urine WBC (0-5) /hpf Urine WBC Clumps (None) /hpf Urine Bacteria (None) /hpf Urine Mucus (None) /hpf Urine Yeast (Budding) (None) /hpf 01/23/22 01/23/22 01/23/22 Range/Units 11:40 12:49 16:49 Hgb (11.4-16.0) gm/dL MCHC (31.0-37.0) g/dL RDW (11.5-15.5) % Neutrophils # (1.3-7.7) k/uL Lymphocytes # (1.0-4.8) k/uL Potassium 5.6 H (3.5-5.1) mmol/L Chloride (98-107) mmol/L Carbon Dioxide (22-30) mmol/L BUN (7-17) mg/dL Creatinine (0.52-1.04) mg/dL Glucose (74-99) mg/dL POC Glucose (mg/dL) 140 H (75-99) mg/dL Iron (50-170) ug/dL % Saturation (12.00-45.00) Urine Appearance Cloudy H (Clear) Urine Protein 2+ H (Negative) Urine Blood Trace H (Negative) Urine Bilirubin 1+ H (Negative) Ur Leukocyte Esterase Large H (Negative) Urine RBC 34 H (0-5) /hpf Urine WBC 160 H (0-5) /hpf Urine WBC Clumps Few H (None) /hpf Urine Bacteria Few H (None) /hpf Urine Mucus Rare H (None) /hpf Urine Yeast (Budding) Few H (None) /hpf 01/23/22 01/23/22 01/24/22 Range/Units 17:09 20:22 05:28 Hgb (11.4-16.0) gm/dL MCHC (31.0-37.0) g/dL RDW (11.5-15.5) % Neutrophils # (1.3-7.7) k/uL Lymphocytes # (1.0-4.8) k/uL Potassium (3.5-5.1) mmol/L Chloride 108 H (98-107) mmol/L Carbon Dioxide 21 L (22-30) mmol/L BUN 77 H (7-17) mg/dL Creatinine 3.28 H (0.52-1.04) mg/dL Glucose 133 H (74-99) mg/dL POC Glucose (mg/dL) 139 H 128 H (75-99) mg/dL Iron (50-170) ug/dL % Saturation (12.00-45.00) Urine Appearance (Clear) Urine Protein (Negative) Urine Blood (Negative) Urine Bilirubin (Negative) Ur Leukocyte Esterase (Negative) Urine RBC (0-5) /hpf Urine WBC (0-5) /hpf Urine WBC Clumps (None) /hpf Urine Bacteria (None) /hpf Urine Mucus (None) /hpf Urine Yeast (Budding) (None) /hpf 01/24/22 Range/Units 05:28 Hgb 9.9 L (11.4-16.0) gm/dL MCHC 28.9 L (31.0-37.0) g/dL RDW 19.9 H (11.5-15.5) % Neutrophils # 8.9 H (1.3-7.7) k/uL Lymphocytes # 0.8 L (1.0-4.8) k/uL Potassium (3.5-5.1) mmol/L Chloride (98-107) mmol/L Carbon Dioxide (22-30) mmol/L BUN (7-17) mg/dL Creatinine (0.52-1.04) mg/dL Glucose (74-99) mg/dL POC Glucose (mg/dL) (75-99) mg/dL Iron (50-170) ug/dL % Saturation (12.00-45.00) Urine Appearance (Clear) Urine Protein (Negative) Urine Blood (Negative) Urine Bilirubin (Negative) Ur Leukocyte Esterase (Negative) Urine RBC (0-5) /hpf Urine WBC (0-5) /hpf Urine WBC Clumps (None) /hpf Urine Bacteria (None) /hpf Urine Mucus (None) /hpf Urine Yeast (Budding) (None) /hpf Microbiology - Last 24 Hours (Table) 01/23/22 05:20 Blood Culture - Preliminary Blood No Growth after 24 hours 01/23/22 05:20 Blood Culture - Final Blood 01/23/22 11:40 Urine Culture - Preliminary Urine,Clean Catch 01/21/22 03:22 Blood Culture Gram Stain - Preliminary Blood Blood Culture - Preliminary Staphylococcus epidermidis Assessment and Plan Plan: Assessment: 1. Acute kidney injury secondary to ATN secondary to hypotension, cardiorenal syndrome. Creatinine 3.28 today. Urine output 30-40 mL an hour. No hydron ephrosis noted on kidney ultrasound. 2. Chronic kidney disease stage 3b/IV with baseline creatinine near 2 likely due to nephrosclerosis and cardiorenal syndrome. Patient unsure if she is diabetic or not. Serologies in 2020 were negative except serum immunofixation showed possible IgG kappa. 3. Volume overload. 4. Acute on chronic diastolic CHF. 5. Hyperkalemia secondary to acute kidney injury and spironolactone. Resolved. 6. Morbid obesity. 7. Anemia of chronic kidney disease. Iron deficiency noted. 8. Hypotension due to underlying cardiac status. Cortisol level on the lower side. She received Solu-Medrol this admission. Plan: Maintain Lasix drip. Add metolazone. Dopamine also added. Follow-up SPEP and serum free light chains. Serologies negative done in November 2020. Quantify proteinuria. May need kidney biopsy outpatient for definitive diagnosis of her underlying chronic kidney disease. Avoid nephrotoxins. Continue to monitor renal function and urine output. Add IV iron. Add IV hydrocortisone. Patient will need to follow-up with endocrine outpatient for further workup for adrenal insufficiency.
[2022-01-24] MEDS: HEPARIN SODIUM,PORCINE/PF 5,000 UNIT/0.5 ML SYRINGE SQ SCH ×2 (10:32→21:07)
[2022-01-24] MEDS: metOLazone 5 MG TAB PO SCH ×2 (10:33→21:07)
[2022-01-24] MEDS: HYDROCORTISONE SUCCINATE 100 MG/2 ML VIAL IV SCH ×2 (10:33→15:29)
[2022-01-24] MEDS ORDERED: LIDOCAINE 1% INJ 10MG/ML (5 ML VIAL-PF) SQ ONE (10:53)
[2022-01-24] MEDS: SODIUM FERRIC GLUCONAT-SUCROSE 125 MG in SODIUM CHLORIDE 0.9% 100 ML IVPB SCH (11:23)
[2022-01-24] MEDS: DEXTROSE/WATER 1 250ML.BAG with DOPamine DRIP 800 MG IV SCH (11:24)
--- NOTE | 2022-01-24 11:37 | P.PN ---
Progress Note - Text Patient is transferred to ICU because of worsening renal functions. She does not have chest pain. Does not have shortness of breath. Blood pressure is well-controlled. Creatinine is elevated at 3.2. Patient is having a PICC line for possible antibiotics On exam: Patient is comfortable at rest heart rate is 88 bpm a pressure is 92/66 respirators 17 O2 sat is 94% on 3 L there is a jugular venous distention chest exam reveals diminished air entry bilaterally abdomen is soft examination extremities reveals bilateral 1+ pitting edema Labs show a hemoglobin of 9.9 potassium is 4.8. An is 77 creatinine is 3.2 Assessment and plan: Hypertension Morbid obesity Renal insufficiency acute on chronic renal failure Patient is on Lasix drip per nephrology and on metolazone and dopamine I will continue current medications including Lipitor Lopressor
--- NOTE | 2022-01-24 11:46 | XR ---
EXAMINATION TYPE: XR chest 1V portable DATE OF EXAM: 01/24/2022 CLINICAL HISTORY: PICC line placement TECHNIQUE: Single AP portable supine view of the chest is obtained. COMPARISON: Chest x-ray from earlier today and older studies FINDINGS: Interval adjustment of right PICC line now terminating in SVC. Persistent cardiomegaly with central vascular congestion. Poor visualization of the left lung base si milar to prior studies. No pneumothorax seen. Osseous structures are intact. IMPRESSION: As above.
--- NOTE | 2022-01-24 11:51 | XR ---
EXAMINATION TYPE: XR chest 1V portable DATE OF EXAM: 01/24/2022 CLINICAL HISTORY: PICC line placement. TECHNIQUE: Single AP portable supine view of the chest is obtained. COMPARISON: Chest x-ray from earlier today and older studies FINDINGS: New right-sided PICC line extends horizontally likely into the left brachiocephalic vein. Cardiomegaly with bibasilar opacities remain present. IMPRESSION: As above.
[2022-01-24 11:58] LABS: Glucose,Whole Blood 121 mg/dL (75-99)
--- NOTE | 2022-01-24 12:21 | IR ---
EXAMINATION TYPE: IR cvc insert >=5 years DATE OF EXAM: 01/24/2022 COMPARISON: NONE HISTORY: Renal insufficiency, needs long-term intravenous access for therapy FINDINGS: Maximal barrier technique was utilized. Hand hygiene obtained with soap and water and alco hol-based hand rub. The skin overlying the right brachial vein was localized with ultrasound and note d to be compressible and patent by ultrasound. An ultrasound image was obtained and submitted on pat ient's chart. Sterile technique utilized with the ultrasound machine. The skin overlying was prepped and draped and Lidocaine used for local anesthesia. A skin maria fernanda was made with a scalpel. Access was gained to the vein under direct ultrasound guidance with a 21-gauge needle and a 0.018 inch wire was advanced. Access site was dilated with a peel-away sheath and the catheter tailored to length. Cat heter advanced centrally and a post procedure chest x-ray verified placement with tip at the superior vena cava. Catheter was fixed to the skin and a sterile dressing placed. Hemostasis achieved and t he catheter was aspirated and flushed with sterile saline. The patient remained in stable condition. IMPRESSION: STATUS POST ULTRASOUND GUIDED PICC LINE PLACEMENT, READY FOR USE. THIS PROCEDURE WAS PER FORMED BY THE UNDERSIGNED.
--- NOTE | 2022-01-24 13:34 | P.PN ---
Subjective Progress Note Date: 01/24/22 46-year-old black female who presented to the emergency department, via EMS, on January 21, for shortness of breath. The patient is seen in the emergency department, room 7. The patient is on BiPAP at 14/5 and 50%. The patient's getting saline at KVO. Also, Rocephin is being given. The patient is poorly responsive. The patient's chest x-ray appears to show CHF. The N-terminal proBNP was elevated. The patient has a history of coronary disease, chest pain, heart failure, hypertension, osteoarthritis, and sleep apnea syndrome. 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 White count is 14, heme him 10.2, hematocrit 34.8, and platelet count 295,000. D-dimer is 2.48. Venous CO2 is 58 with a pH is 7.25. Sodium 141, potassium 5, chlorides 108, CO2 23, anion gap 10, BUN 57, creatinine 1.78. Troponin is 0.081. N-terminal proBNP was 16,900. Albumin is 3.6. Testing for rizo virus was negative. Chest x-ray shows evidence of cardiomegaly, and pulmonary edema/CHF. The patient is seen today 01/23/2022 in follow-up on the selective care unit. She is maintaining O2 saturations in the mid 80s on 4 L/m per nasal cannula. Otherwise she does well on BiPAP 12/5 and 40% FiO2. She's been afebrile. His x-ray continues to show cardiomegaly with bilateral lower lung acute infiltrate/edema. No significant change from previous. Blood culture revealed no growth. White count 11.3. Hemoglobin 9.6. Platelets 261. Sodium 139. Potassium 5.5. Chloride 19. Bicarb 22. BUN was 70. Creatinine 2.09. Glucose 136. Urinalysis cloudy with large leukocytes and few bacteria. She is currently negative 420 ML's balance. She remains on DuoNeb inhalations. Initiated on a Lasix drip at 10 mg per hour. On 01/24/2022, the patient is being seen for a follow-up. The patient seems to be quite comfortable. The patient is awake and alert and there is no change in the mental status. The patient is currently on 3 L of O2 nasal cannula with a pulse ox of 90%. Note that the patient got transferred to the intensive care unit as the patient was having shortness of breath and massive fluid overload. The patient was started on Lasix drip at 10 mg an hour. Urine output has not been the best. Overall fluid balance is negative 420s over the past 24 hours. I was expecting further improvement in the urine output yet that urine output remains to be quite sluggish. The patient continues to have third spacing an extensive edema in all 4 extremities. BUN is at 77 with a creatinine of 3.2. Sodium is at 139. Potassium is at 4.8. Hemoglobin is at 9.9 with a white cell count of 10.5. She is afebrile. The patient had a possible culture with staph epidermidis. Meanwhile, the UA was abnormal and the urine cultures still pending. The patient remains on IV Rocephin. The patient was also seen by nephrology. A PICC line was also inserted in the right upper extremity for IV access. The patient will be started also on Zaroxolyn and midodrine will be used for hypotension a dose of 10 mg every 3 times a day. This was recommended by nephrology. At the same time, the patient's serum cortisol at baseline was 4 the patient was given stress dose hydrocortisone. Objective - Vital Signs Vital signs: Vital Signs Temp 98.2 F 01/24/22 09:00 Pulse 78 01/24/22 12:00 Resp 25 H 01/24/22 12:00 BP 128/71 01/24/22 12:00 Pulse Ox 90 L 01/24/22 12:00 Intake & Output 01/23/22 01/24/22 01/24/22 18:59 06:59 18:59 Intake Total 410 180.500 390 Output Total 95 475 420 Balance 315 -294.500 -30 Weight 183.569 kg Intake: Intake, IV Titration 50 180.500 150 Amount Furosemide 100 mg In 180.500 Sodium Chloride 0.9% 90 ml @ 10 MG/HR 10 mls/hr IV .Q10H [facility] Rx#: [id number] Sodium Ferric Gluconat- 100 Sucrose 125 mg In Sodium Chloride 0.9% 100 ml @ 100 mls/hr IVPB DAILY [facility] Rx#:[id number] cefTRIAXone 1 gm In 50 50 Sodium Chloride 0.9% 50 ml @ 100 mls/hr IVPB Q24HR [facility] Rx#:[id number] Oral 360 240 Output: Urine 95 475 420 Other: Voiding Method Indwelling Catheter Indwelling Catheter Indwelling Catheter - Exam No acute distress, morbidly obese 46-year-old black female, currently on 3 L of O2 by nasal cannula. She is awake and alert and following commands and answerin g questions appropriately. HEENT examination is grossly unremarkable. Neck supple. Full range of motion. No adenopathy thyromegaly or neck vein distention. Cardiovascular examination reveals regular rhythm rate. S1-S2 normal. No S3 or S4. No discernible murmur noted. Heart rate 84. Heart sounds are distant. Lungs reveal bilateral rhonchi and crackles. No wheezes. Breath sounds equal bilaterally. Abdomen his, with bowel sounds. Extremities are intact. Extensive edema in lower oximetry is bilaterally. No cyanosis or clubbing. The patient is a PICC line in the right upper extremity. Skin is without rash or lesion. Neurologic no focal neurological deficit at this point in time.. The patient's very lethargic and somnolent has improved and the patient is alert and oriented 3 - Labs CBC & Chem 7: 01/24/22 05:28 01/24/22 05:28 Labs: Abnormal Lab Results - Last 24 Hours (Table) 01/23/22 01/23/22 01/23/22 Range/Units 05:20 16:49 17:09 Hgb (11.4-16.0) gm/dL MCHC (31.0-37.0) g/dL RDW (11.5-15.5) % Neutrophils # (1.3-7.7) k/uL Lymphocytes # (1.0-4.8) k/uL Potassium 5.6 H (3.5-5.1) mmol/L Chloride (98-107) mmol/L Carbon Dioxide (22-30) mmol/L BUN (7-17) mg/dL Creatinine (0.52-1.04) mg/dL Glucose (74-99) mg/dL POC Glucose (mg/dL) 139 H (75-99) mg/dL Iron 19 L (50-170) ug/dL % Saturation 5.10 L (12.00-45.00) 01/23/22 01/24/22 01/24/22 Range/Units 20:22 05:28 05:28 Hgb 9.9 L (11.4-16.0) gm/dL MCHC 28.9 L (31.0-37.0) g/dL RDW 19.9 H (11.5-15.5) % Neutrophils # 8.9 H (1.3-7.7) k/uL Lymphocytes # 0.8 L (1.0-4.8) k/uL Potassium (3.5-5.1) mmol/L Chloride 108 H (98-107) mmol/L Carbon Dioxide 21 L (22-30) mmol/L BUN 77 H (7-17) mg/dL Creatinine 3.28 H (0.52-1.04) mg/dL Glucose 133 H (74-99) mg/dL POC Glucose (mg/dL) 128 H (75-99) mg/dL Iron (50-170) ug/dL % Saturation (12.00-45.00) 01/24/22 Range/Units 11:56 Hgb (11.4-16.0) gm/dL MCHC (31.0-37.0) g/dL RDW (11.5-15.5) % Neutrophils # (1.3-7.7) k/uL Lymphocytes # (1.0-4.8) k/uL Potassium (3.5-5.1) mmol/L Chloride (98-107) mmol/L Carbon Dioxide (22-30) mmol/L BUN (7-17) mg/dL Creatinine (0.52-1.04) mg/dL Glucose (74-99) mg/dL POC Glucose (mg/dL) 121 H (75-99) mg/dL Iron (50-170) ug/dL % Saturation (12.00-45.00) Microbiology - Last 24 Hours (Table) 01/23/22 05:20 Blood Culture Gram Stain - Preliminary Blood 01/23/22 05:20 Blood Culture - Preliminary Blood No Growth after 24 hours 01/23/22 05:20 Blood Culture - Final Blood 01/23/22 11:40 Urine Culture - Preliminary Urine,Clean Catch Assessment and Plan Plan: Acute on chronic hypoxic respiratory failure, essentially secondary CHF as the patient has cardiomegaly, pulmonary edema, elevated proBNP level highly suggestive of underlying decompensated CHF. The patient got transferred to the intensive care unit. The patient is currently on a Lasix drip at 10 mg an hour. The patient had essentially a right-sided heart failure along with extensive fluid overload. Acute mental status change, secondary to above, recovered Previous history of upper GI bleeding Anemia of chronic disease, hemoglobin is stable History of congestive heart failure, LV function is preserved, RV is quite dilated History of benign essential hypertension. Morbid obesity. History of DVT. History of generalized anxiety disorder. History of obstructive sleep apnea syndrome. The patient is provided CPAP the rapy at a pressure of 16 cm of water on outpatient basis Chronic kidney disease. Stage IIIB, with a component of an acute kidney injury, probably related to cardiorenal factors Non-anion gap metabolic acidosis History of supraventricular tachycardia. This is inactive and stable for now Staph epidermidis in the blood, likely a contaminant Suspected UTI Plan C may need to continue CPAP/BiPAP overnight Keep the patient on O2 at 3 L of oxygen by nasal cannula Continue diuretics with Lasix drip at 10 mg an hour and add Zaroxolyn 5 mg by mouth twice a day May need to add dopamine for improvement of the urine output. No need for dobutamine as the patient has a preserved LV function. Continue bronchodilators Continued IV Rocephin pending urine cultures Nephrology is on the home health care case manager renal function, creatinine stable for now Resume all medications PICC line has been inserted in the right upper extremity We'll continue to follow
[2022-01-24 14:13] LABS: Creatinine,Urine Random 36.4 mg/dL; Protein/Creatinine Ratio,Urine 1.016
[2022-01-24 16:51] LABS: Glucose,Whole Blood 123 mg/dL (75-99)
--- NOTE | 2022-01-24 18:54 | PN ---
PROGRESS NOTE DATE OF SERVICE: 01/24/2022 CHIEF COMPLAINT: Congestive heart failure, renal failure, morbid obesity, cardiomyopathy and cardiorenal syndrome. HISTORY OF PRESENT ILLNESS: This lady was moved to the ICU because she was anuric. She has started to make a little bit more urine and is being followed by Nephrology. REVIEW OF SYSTEMS: She is not complaining of any pain, nausea, shortness of breath, etc. PHYSICAL EXAMINATION: Vital signs are normal with a systolic pressure of 23. Chest demonstrates decreased breath sounds. The cardiac exam is normal. The abdomen is protuberant, soft and nontender. She is fully awake. IMPRESSION: 1. Acute on chronic congestive heart failure. 2. Cardiomyopathy. 3. Chronic renal failure with acute kidney injury and anuria. 4. Obesity. PLAN: Continue with ICU management and hope that her renal function improves. MMODL / IJN: [id number] /
[2022-01-24 20:47] LABS: Glucose,Whole Blood 125 mg/dL (75-99)
[2022-01-24] MEDS: ACETAMINOPHEN TAB 325 MG TAB PO PRN (21:09)
[2022-01-24 21:51] LABS: Hepatitis B Surface AB- Quant 3.5 mIU/mL; Hepatitis B Surface Antibody Nonreactive (Nonreactive)
[2022-01-25] MEDS: HYDROCORTISONE SUCCINATE 100 MG/2 ML VIAL IV SCH ×3 (00:35→20:17)
[2022-01-25] MEDS: FUROSEMIDE 100 MG in SODIUM CHLORIDE 0.9% 90 ML IV SCH ×3 (01:29→17:46)
--- NOTE | 2022-01-25 06:15 | XR ---
EXAMINATION TYPE: XR chest 1V portable DATE OF EXAM: 01/25/2022 CLINICAL HISTORY: Difficulty breathing progress study. TECHNIQUE: Single AP portable semiupright view of the chest is obtained. COMPARISON: Chest x-ray from one day earlier and older studies FINDINGS: Right-sided PICC line redemonstrated. Tip retracted into the right brachiocephalic vein latoya rt of SVC. Persistent cardiomegaly redemonstrated obscures portions of left lower lung similar to prior. Persist ent bilateral lower lung opacities. Underlying scoliotic curvature or positioning. IMPRESSION: Suboptimal study. Cardiomegaly with bilateral lower lung acute infiltrates and/or edema l ikely remain present. No significant change from one day earlier.
[2022-01-25 06:27] LABS: Glucose,Whole Blood 129 mg/dL (75-99)
[2022-01-25] MEDS: INSULIN ASPART (NovoLOG) 100 UNIT/ML VIAL SQ SCH ×4 (06:43→20:18)
[2022-01-25] MEDS: SODIUM CHLORIDE 0.9% 1,000 ML IV SCH (06:44)
[2022-01-25] MEDS: MIDODRINE 5 MG TAB PO SCH (06:44)
[2022-01-25] MEDS: IPRATROPIUM-ALBUTEROL 3 ML NEB INHALATION SCH ×4 (08:34→20:41)
[2022-01-25 08:49] LABS: Calcium 9.2 mg/dL (8.4-10.2); Magnesium 2.4 mg/dL (1.6-2.3); Potassium 4.8 mmol/L (3.5-5.1)
[2022-01-25 09:06] LABS: Anisocytosis Slight; Basophils % (A) 0 %; Eosinophils % (A) 0 %; HCT 35.4 % (34.0-46.0); HGB 10.1 gm/dL (11.4-16.0); Hypochromasia Marked; Lymphocytes # (A) 0.5 k/uL (1.0-4.8); Lymphocytes % (A) 4 %; MCH 25.2 pg (25.0-35.0); MCHC 28.6 g/dL (31.0-37.0); Mean Platelet Volume 10.2; Monocytes # (A) 0.5 k/uL (0-1.0); Monocytes % (A) 4 %; Neutrophils # (A) 11.3 k/uL (1.3-7.7); Neutrophils % (A) 91 %; Platelet Count 261 k/uL (150-450); Poikilocytosis Slight; RBC 4.03 m/uL (3.80-5.40); RDW 19.8 % (11.5-15.5); WBC 12.5 k/uL (3.8-10.6)
--- NOTE | 2022-01-25 09:16 | P.PN ---
Subjective Patient is seen in follow-up for acute kidney injury on chronic kidney disease. Creatinine 3.08 today. Urine output improved with metolazone and dopamine. Remains on Lasix drip. On 3 L is a cannula. Denies chest pain or shortness of breath. No vomiting or diarrhea. Vital signs are stable. General: No acute distress. HEENT: Head exam is unremarkable. On nasal cannula. LUNGS: Breath sounds decreased. HEART: Rate and Rhythm are regular. ABDOMEN: Soft, obese. EXTREMITITES: 2+ edema. Objective - Vital Signs Vital signs: Vital Signs Temp 98.1 F 01/25/22 04:00 Pulse 93 01/25/22 08:44 Resp 18 01/25/22 08:44 BP 159/118 01/25/22 07:00 Pulse Ox 96 01/25/22 08:34 Intake & Output 01/24/22 01/25/22 01/25/22 18:59 06:59 18:59 Intake Total 1206 580 Output Total 1310 1725 125 Balance -104 -1145 -125 Weight 187.107 kg Intake: Intake, IV Titration 246 100 Amount Furosemide 100 mg In 96 100 Sodium Chloride 0.9% 90 ml @ 10 MG/HR 10 mls/hr IV .Q10H [facility] Rx#: [id number] Sodium Ferric Gluconat- 100 Sucrose 125 mg In Sodium Chloride 0.9% 100 ml @ 100 mls/hr IVPB DAILY [facility] Rx#:[id number] cefTRIAXone 1 gm In 50 Sodium Chloride 0.9% 50 ml @ 100 mls/hr IVPB Q24HR [facility] Rx#:[id number] Oral 960 480 Output: Urine 1310 1725 125 Other: Voiding Method Indwelling Catheter Indwelling Catheter - Labs CBC & Chem 7: 01/25/22 08:31 01/25/22 08:31 Labs: Abnormal Lab Results - Last 24 Hours (Table) 01/24/22 01/24/22 01/24/22 Range/Units 11:56 16:50 20:45 WBC (3.8-10.6) k/uL Hgb (11.4-16.0) gm/dL MCHC (31.0-37.0) g/dL RDW (11.5-15.5) % Neutrophils # (1.3-7.7) k/uL Lymphocytes # (1.0-4.8) k/uL BUN (7-17) mg/dL Creatinine (0.52-1.04) mg/dL Glucose (74-99) mg/dL POC Glucose (mg/dL) 121 H 123 H 125 H (75-99) mg/dL Magnesium (1.6-2.3) mg/dL 01/25/22 01/25/22 01/25/22 Range/Units 06:26 08:31 08:31 WBC 12.5 H (3.8-10.6) k/uL Hgb 10.1 L (11.4-16.0) gm/dL MCHC 28.6 L (31.0-37.0) g/dL RDW 19.8 H (11.5-15.5) % Neutrophils # 11.3 H (1.3-7.7) k/uL Lymphocytes # 0.5 L (1.0-4.8) k/uL BUN 82 H (7-17) mg/dL Creatinine 3.08 H (0.52-1.04) mg/dL Glucose 133 H (74-99) mg/dL POC Glucose (mg/dL) 129 H (75-99) mg/dL Magnesium 2.4 H (1.6-2.3) mg/dL Microbiology - Last 24 Hours (Table) 01/23/22 05:20 Blood Culture Gram Stain - Preliminary Blood 01/23/22 11:40 Urine Culture - Final Urine,Clean Catch 01/23/22 05:20 Blood Culture - Final Blood 01/21/22 03:22 Blood Culture Gram Stain - Final Blood Blood Culture - Final Staphylococcus epidermidis 01/23/22 05:20 Blood Culture Gram Stain - Preliminary Blood Assessment and Plan Plan: Assessment: 1. Acute kidney injury secondary to ATN secondary to hypotension, cardiorenal syndrome. Creatinine 3.08 today. Nonoliguric. No hydronephrosis noted on kidney ultrasound. 2. Chronic kidney disease stage 3b/IV with baseline creatinine near 2 likely due to nephrosclerosis and cardiorenal syndrome. Patient unsure if she is diabetic or not - A1c 5.2% this admission. Serologies in 2020 were negative except serum immunofixation showed possible IgG kappa. UPC 1.06 g - ?secondary FSGS due to obesity. 3. Volume overload. 4. Acute on chronic diastolic CHF. 5. Hyperkalemia secondary to acute kidney injury and spironolactone. Resolved. 6. Morbid obesity. 7. Anemia of chronic kidney disease. Iron deficiency noted. 8. Hypotension due to underlying cardiac status. Cortisol level on the lower side. She received Solu-Medrol this admission. Plan: Maintain Lasix drip. Maintain metolazone. Also on dopamine. Follow-up SPEP and serum free light chains. Serologies negative done in November 2020. Will consider kidney biopsy outpatient for definitive diagnosis of her underlying chronic kidney disease. Avoid nephrotoxins. Continue to monitor renal function and urine output. Maintain IV iron. Decrease hydrocortisone frequency to twice a day. Patient will need to follow- up with endocrine outpatient for further workup for adrenal insufficiency. Hold midodrine for systolic blood pressure greater than 110.
--- NOTE | 2022-01-25 10:02 | P.PN ---
Subjective Progress Note Date: 01/25/22 Patient is seen today in the ICU resting comfortable. She denies chest pain or shortness of breath. Her blood pressure is poorly controlled. Will stop midorone. she is unable to take HTCZ, she states is gives her tachycardia. Will start Catapres 0.1 mg 3 times a day. Patient will continue on dobutamine drip, Lasix drip, and metolazone. Patient is having good urine output, 1200 ml last night. Creatinine remains elevated at 3. Objective - Vital Signs Vital signs: Vital Signs Temp 98.1 F 01/25/22 04:00 Pulse 93 01/25/22 08:44 Resp 18 01/25/22 08:44 BP 159/118 01/25/22 07:00 Pulse Ox 96 01/25/22 08:34 Intake & Output 01/24/22 01/25/22 01/25/22 18:59 06:59 18:59 Intake Total 1206 580 Output Total 1310 1725 125 Balance -104 -1145 -125 Weight 187.107 kg Intake: Intake, IV Titration 246 100 Amount Furosemide 100 mg In 96 100 Sodium Chloride 0.9% 90 ml @ 10 MG/HR 10 mls/hr IV .Q10H [facility] Rx#: [id number] Sodium Ferric Gluconat- 100 Sucrose 125 mg In Sodium Chloride 0.9% 100 ml @ 100 mls/hr IVPB DAILY [facility] Rx#:[id number] cefTRIAXone 1 gm In 50 Sodium Chloride 0.9% 50 ml @ 100 mls/hr IVPB Q24HR [facility] Rx#:[id number] Oral 960 480 Output: Urine 1310 1725 125 Other: Voiding Method Indwelling Catheter Indwelling Catheter - Exam PHYSICAL EXAM: VITAL SIGNS: Reviewed. GENERAL: Well-developed in no acute distress. HEENT: Head is normocephalic. Pupils are equal, round. Sclerae anicteric. Mucous membranes of the mouth are moist. NECK: Supple. No JVD or thyromegaly RESPIRATORY: Respirations even and unlabored. Lungs diminished to auscultation bilaterally. On 3 L oxygen CARDIO: Regular rate and rhythm. S1 and S2 heard. No murmur or gallops. EXTREMITIES: Normal range of motion. No clubbing or cyanosis. Peripheral pulses intact. mild bilateral lower extremity edema NEURO: Orientated to person, time, mood is appropriate - Labs CBC & Chem 7: 01/25/22 08:31 01/25/22 08:31 Labs: Abnormal Lab Results - Last 24 Hours (Table) 01/24/22 01/24/22 01/24/22 Range/Units 11:56 16:50 20:45 WBC (3.8-10.6) k/uL Hgb (11.4-16.0) gm/dL MCHC (31.0-37.0) g/dL RDW (11.5-15.5) % Neutrophils # (1.3-7.7) k/uL Lymphocytes # (1.0-4.8) k/uL BUN (7-17) mg/dL Creatinine (0.52-1.04) mg/dL Glucose (74-99) mg/dL POC Glucose (mg/dL) 121 H 123 H 125 H (75-99) mg/dL Magnesium (1.6-2.3) mg/dL 01/25/22 01/25/22 01/25/22 Range/Units 06:26 08:31 08:31 WBC 12.5 H (3.8-10.6) k/uL Hgb 10.1 L (11.4-16.0) gm/dL MCHC 28.6 L (31.0-37.0) g/dL RDW 19.8 H (11.5-15.5) % Neutrophils # 11.3 H (1.3-7.7) k/uL Lymphocytes # 0.5 L (1.0-4.8) k/uL BUN 82 H (7-17) mg/dL Creatinine 3.08 H (0.52-1.04) mg/dL Glucose 133 H (74-99) mg/dL POC Glucose (mg/dL) 129 H (75-99) mg/dL Magnesium 2.4 H (1.6-2.3) mg/dL Microbiology - Last 24 Hours (Table) 01/23/22 05:20 Blood Culture Gram Stain - Preliminary Blood 01/23/22 11:40 Urine Culture - Final Urine,Clean Catch 01/23/22 05:20 Blood Culture - Final Blood 01/21/22 03:22 Blood Culture Gram Stain - Final Blood Blood Culture - Final Staphylococcus epidermidis 01/23/22 05:20 Blood Culture Gram Stain - Preliminary Blood Assessment and Plan Assessment: Hypertension Morbid obesity Renal insufficiency acute on chronic renal failure Plan: discontinue midodrine due to elevated blood pressure readings Start Catapres 0.1 3 times a day Patient will continue on Lasix and dobutamine drip per nephrology and on metolazone continue with all other current cardiac medications The above impression and plan of care have been discussed and directed by the signing physician. Aurora Payan, nurse practitioner, acting as scribe for signing physician.
[2022-01-25] MEDS: HEPARIN SODIUM,PORCINE/PF 5,000 UNIT/0.5 ML SYRINGE SQ SCH ×2 (10:57→20:18)
[2022-01-25] MEDS: METOPROLOL TARTRATE 50 MG TAB PO SCH ×2 (10:58→20:17)
[2022-01-25] MEDS: PANTOPRAZOLE 40 MG/10 ML VIAL IVP SCH (10:58)
[2022-01-25] MEDS: metOLazone 5 MG TAB PO SCH ×2 (10:59→20:17)
[2022-01-25] MEDS: cloNIDine HCL 0.1 MG TAB PO SCH ×3 (10:59→20:17)
[2022-01-25] MEDS: SODIUM FERRIC GLUCONAT-SUCROSE 125 MG in SODIUM CHLORIDE 0.9% 100 ML IVPB SCH (11:00)
[2022-01-25] MEDS: ATORVASTATIN 40 MG TAB PO SCH (11:00)
[2022-01-25 11:23] LABS: Glucose,Whole Blood 113 mg/dL (75-99)
--- NOTE | 2022-01-25 11:53 | P.PN ---
Subjective Progress Note Date: 01/25/22 46-year-old black female who presented to the emergency department, via EMS, on January 21, for shortness of breath. The patient is seen in the emergency department, room 7. The patient is on BiPAP at 14/5 and 50%. The patient's getting saline at KVO. Also, Rocephin is being given. The patient is poorly responsive. The patient's chest x-ray appears to show CHF. The N-terminal proBNP was elevated. The patient has a history of coronary disease, chest pain, heart failure, hypertension, osteoarthritis, and sleep apnea syndrome. 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 White count is 14, heme him 10.2, hematocrit 34.8, and platelet count 295,000. D-dimer is 2.48. Venous CO2 is 58 with a pH is 7.25. Sodium 141, potassium 5, chlorides 108, CO2 23, anion gap 10, BUN 57, creatinine 1.78. Troponin is 0.081. N-terminal proBNP was 16,900. Albumin is 3.6. Testing for rizo virus was negative. Chest x-ray shows evidence of cardiomegaly, and pulmonary edema/CHF. The patient is seen today 01/23/2022 in follow-up on the selective care unit. She is maintaining O2 saturations in the mid 80s on 4 L/m per nasal cannula. Otherwise she does well on BiPAP 12/5 and 40% FiO2. She's been afebrile. His x-ray continues to show cardiomegaly with bilateral lower lung acute infiltrate/edema. No significant change from previous. Blood culture revealed no growth. White count 11.3. Hemoglobin 9.6. Platelets 261. Sodium 139. Potassium 5.5. Chloride 19. Bicarb 22. BUN was 70. Creatinine 2.09. Glucose 136. Urinalysis cloudy with large leukocytes and few bacteria. She is currently negative 420 ML's balance. She remains on DuoNeb inhalations. Initiated on a Lasix drip at 10 mg per hour. On 01/24/2022, the patient is being seen for a follow-up. The patient seems to be quite comfortable. The patient is awake and alert and there is no change in the mental status. The patient is currently on 3 L of O2 nasal cannula with a pulse ox of 90%. Note that the patient got transferred to the intensive care unit as the patient was having shortness of breath and massive fluid overload. The patient was started on Lasix drip at 10 mg an hour. Urine output has not been the best. Overall fluid balance is negative 420s over the past 24 hours. I was expecting further improvement in the urine output yet that urine output remains to be quite sluggish. The patient continues to have third spacing an extensive edema in all 4 extremities. BUN is at 77 with a creatinine of 3.2. Sodium is at 139. Potassium is at 4.8. Hemoglobin is at 9.9 with a white cell count of 10.5. She is afebrile. The patient had a possible culture with staph epidermidis. Meanwhile, the UA was abnormal and the urine cultures still pending. The patient remains on IV Rocephin. The patient was also seen by nephrology. A PICC line was also inserted in the right upper extremity for IV access. The patient will be started also on Zaroxolyn and midodrine will be used for hypotension a dose of 10 mg every 3 times a day. This was recommended by nephrology. At the same time, the patient's serum cortisol at baseline was 4 the patient was given stress dose hydrocortisone. 01/25/2022, the patient is doing better. The patient started producing adequate amount of urine output and the patient is producing more than 2 L over the past 8 hours and the patient's overall fluid balance is -1. liters since evening. For now, the patient remains on Lasix drip at 10 mg an hour, the patient is also on Zaroxolyn 5 mg by mouth twice a day and the patient is also on renal dose dopamine. Doing well. No significant complaints. No chest pain. The patient remains on 3 L O2 nasal cannula. No nausea. No vomiting. No diarrhea. No abdominal pain. No chest pain. No fever. No chills. Urine cultures are negative for now. The patient remains on empiric antibiotic coverage with IV Zosyn. BUN is at 82 with a creatinine of 3.08, the white cell count is 4.5 with a hemoglobin of 10.1 with a platelet count of 261. Objective - Vital Signs Vital signs: Vital Signs Temp 98.1 F 01/25/22 08:00 Pulse 92 01/25/22 10:00 Resp 14 01/25/22 10:00 BP 162/96 01/25/22 10:00 Pulse Ox 100 01/25/22 10:00 Intake & Output 01/24/22 01/25/22 01/25/22 18:59 06:59 18:59 Intake Total 1206 580 94.333 Output Total 1310 1725 125 Balance -104 -1145 -30.667 Weight 187.107 kg Intake: Intake, IV Titration 246 100 94.333 Amount Furosemide 100 mg In 96 100 94.333 Sodium Chloride 0.9% 90 ml @ 10 MG/HR 10 mls/hr IV .Q10H [facility] Rx#: [id number] Sodium Ferric Gluconat- 100 Sucrose 125 mg In Sodium Chloride 0.9% 100 ml @ 100 mls/hr IVPB DAILY [facility] Rx#:[id number] cefTRIAXone 1 gm In 50 Sodium Chloride 0.9% 50 ml @ 100 mls/hr IVPB Q24HR [facility] Rx#:[id number] Oral 960 480 Output: Urine 1310 1725 125 Other: Voiding Method Indwelling Catheter Indwelling Catheter - Exam No acute distress, morbidly obese 46-year-old black female, currently on 3 L of O2 by nasal cannula. She is awake and alert and following commands and answering questions appropriately. HEENT examination is grossly unremarkable. Neck supple. Full range of motion. No adenopathy thyromegaly or neck vein distention. Cardiovascular examination reveals regular rhythm rate. S1-S2 normal. No S3 or S4. No discernible murmur noted. Heart rate 84. Heart sounds are distant. Lungs reveal bilateral rhonchi and crackles. No wheezes. Breath sounds equal bilaterally. Abdomen his, with bowel sounds. Extremities are intact. Extensive edema in lower oximetry is bilaterally. No cyanosis or clubbing. The patient is a PICC line in the right upper extremity. Skin is without rash or lesion. Neurologic no focal neurological deficit at this point in time.. The patient's very lethargic and somnolent has improved and the patient is alert and oriented 3 - Labs CBC & Chem 7: 01/25/22 08:31 01/25/22 08:31 Labs: Abnormal Lab Results - Last 24 Hours (Table) 01/24/22 01/24/2222 Range/Units 11:56 16:50 20:45 WBC (3.8-10.6) k/uL Hgb (11.4-16.0) gm/dL MCHC (31.0-37.0) g/dL RDW (11.5-15.5) % Neutrophils # (1.3-7.7) k/uL Lymphocytes # (1.0-4.8) k/uL BUN (7-17) mg/dL Creatinine (0.52-1.04) mg/dL Glucose (74-99) mg/dL POC Glucose (mg/dL) 121 H 123 H 125 H (75-99) mg/dL Magnesium (1.6-2.3) mg/dL 01/25/22 01/25/22 01/25/22 Range/Units 06:26 08:31 08:31 WBC 12.5 H (3.8-10.6) k/uL Hgb 10.1 L (11.4-16.0) gm/dL MCHC 28.6 L (31.0-37.0) g/dL RDW 19.8 H (11.5-15.5) % Neutrophils # 11.3 H (1.3-7.7) k/uL Lymphocytes # 0.5 L (1.0-4.8) k/uL BUN 82 H (7-17) mg/dL Creatinine 3.08 H (0.52-1.04) mg/dL Glucose 133 H (74-99) mg/dL POC Glucose (mg/dL) 129 H (75-99) mg/dL Magnesium 2.4 H (1.6-2.3) mg/dL 01/25/22 Range/Units 11:21 WBC (3.8-10.6) k/uL Hgb (11.4-16.0) gm/dL MCHC (31.0-37.0) g/dL RDW (11.5-15.5) % Neutrophils # (1.3-7.7) k/uL Lymphocytes # (1.0-4.8) k/uL BUN (7-17) mg/dL Creatinine (0.52-1.04) mg/dL Glucose (74-99) mg/dL POC Glucose (mg/dL) 113 H (75-99) mg/dL Magnesium (1.6-2.3) mg/dL Microbiology - Last 24 Hours (Table) 01/21/22 03:22 Blood Culture Gram Stain - Final Blood Blood Culture - Final Staphylococcus epidermidis 01/23/22 05:20 Blood Culture Gram Stain - Final Blood Blood Culture - Final Coagulase Negative Staph 01/23/22 05:20 Blood Culture Gram Stain - Preliminary Blood 01/23/22 11:40 Urine Culture - Final Urine,Clean Catch 01/23/22 05:20 Blood Culture - Final Blood Assessment and Plan Plan: Acute on chronic hypoxic respiratory failure, essentially secondary CHF as the patient has cardiomegaly, pulmonary edema, elevated proBNP level highly suggestive of underlying decompensated CHF. Clinically the patient is stable on 3 L O2 nasal cannula. The patient is being diuresed with Lasix, Zaroxolyn the patient is on renal dose dopamine. Significant fluid overload and third spacing Acute mental status change, secondary to above, recovered Previous history of upper GI bleeding Anemia of chronic disease, hemoglobin is stable History of congestive heart failure, LV function is preserved, RV is quite dilated History of benign essential hypertension. Morbid obesity. History of DVT. History of generalized anxiety disorder. History of obstructive sleep apnea syndrome. The patient is provided CPAP therapy at a pressure of 16 cm of water on outpatient basis Chronic kidney disease. Stage IIIB, with a component of an acute kidney injury, probably related to cardiorenal factors, creatinine is stable at 3.08 and the patient is producing adequate amount of urine output Non-anion gap metabolic acidosis History of supraventricular tachycardia. This is inactive and stable for now Staph epidermidis in the blood, likely a contaminant Suspected UTI, urine cultures negative and the patient remains on IV Rocephin Plan continue CPAP/BiPAP overnight O2 at 3 L of oxygen by nasal cannula Lasix drip at 10 mg an hour and add Zaroxolyn 5 mg by mouth twice a day Dopamine renal dose Monitor electrolytes Monitor fluid balance Keep the Colon catheter in place Continue IV Rocephin The PICC line been inserted in the right upper extremity We'll continue to follow
[2022-01-25 14:45] LABS: Free Kappa Lt Chain Qnt, Serum 11.66 mg/dL (0.33-1.94); Free Lambda Lt Chain Qnt, Seru 5.36 mg/dL (0.57-2.63)
[2022-01-25] MEDS: DEXTROSE/WATER 1 250ML.BAG with DOPamine DRIP 800 MG IV SCH (15:25)
[2022-01-25 16:31] LABS: Glucose,Whole Blood 129 mg/dL (75-99)
--- NOTE | 2022-01-25 17:04 | PN ---
PROGRESS NOTE DATE OF SERVICE: 01/25/2022 CHIEF COMPLAINT: Acute congestive heart failure and anuria. HISTORY OF PRESENT ILLNESS: This lady is doing a little bit better, in that she has started to make some urine. Numbers still are not good. Her creatinine is up at 3.8 with a BUN of 82. Blood pressure is also elevated. REVIEW OF SYSTEMS: She offers no complaints. She denies chest pain, abdominal pain, shortness of breath, etc. PHYSICAL EXAMINATION: Blood pressure is 159/118. Pulse is 83. Exam is unremarkable. Head, ears, eyes, nose, mouth and throat are normal. The chest demonstrates decreased breath sounds, largely due to her size. Cardiac exam demonstrates sinus tachycardia. Abdomen is soft and protuberant. Extremities are normal. IMPRESSION: 1. Acute congestive heart failure. 2. Chronic congestive heart failure. 3. Cardiomyopathy. 4. Chronic renal failure with acute exacerbation. 5. Hypertension. 6. Diabetes. 7. Morbid obesity. PLAN: Continue with ICU management in hopes that her renal function will improve. MMODL / IJN: [id number] /
[2022-01-25] MEDS: ACETAMINOPHEN TAB 325 MG TAB PO PRN (17:52)
[2022-01-25 20:14] LABS: Glucose,Whole Blood 135 mg/dL (75-99)
[2022-01-26 02:09] LABS: Glucose,Whole Blood 131 mg/dL (75-99)
[2022-01-26 04:42] LABS: Anisocytosis Slight; HCT 33.6 % (34.0-46.0); HGB 9.5 gm/dL (11.4-16.0); Hypochromasia Marked; MCH 24.5 pg (25.0-35.0); MCHC 28.3 g/dL (31.0-37.0); MCV 86.6 fL (80.0-100.0); Mean Platelet Volume 9.3; Microcytosis Slight; Platelet Count 222 k/uL (150-450); Poikilocytosis Slight; RBC 3.88 m/uL (3.80-5.40); RDW 19.7 % (11.5-15.5); WBC 16.6 k/uL (3.8-10.6)
[2022-01-26 05:10] LABS: Albumin 3.4 g/dL (3.5-5.0); Calcium 9.1 mg/dL (8.4-10.2); Magnesium 2.3 mg/dL (1.6-2.3); Potassium 4.3 mmol/L (3.5-5.1); Total Bilirubin 0.4 mg/dL (0.2-1.3); Total Protein 7.2 g/dL (6.3-8.2)
[2022-01-26 06:24] LABS: Glucose,Whole Blood 121 mg/dL (75-99)
[2022-01-26] MEDS: INSULIN ASPART (NovoLOG) 100 UNIT/ML VIAL SQ SCH ×4 (06:29→20:35)
[2022-01-26] MEDS: FUROSEMIDE 100 MG in SODIUM CHLORIDE 0.9% 90 ML IV SCH ×2 (06:29→11:34)
[2022-01-26] MEDS: SODIUM CHLORIDE 0.9% 1,000 ML IV SCH (06:32)
[2022-01-26] MEDS: PANTOPRAZOLE 40 MG/10 ML VIAL IVP SCH (08:18)
[2022-01-26] MEDS: HYDROCORTISONE SUCCINATE 100 MG/2 ML VIAL IV SCH ×2 (08:18→20:34)
[2022-01-26] MEDS: HEPARIN SODIUM,PORCINE/PF 5,000 UNIT/0.5 ML SYRINGE SQ SCH ×2 (08:18→20:33)
[2022-01-26] MEDS: cloNIDine HCL 0.1 MG TAB PO SCH ×3 (08:19→20:33)
[2022-01-26] MEDS: METOPROLOL TARTRATE 50 MG TAB PO SCH ×2 (08:19→20:33)
[2022-01-26] MEDS: metOLazone 5 MG TAB PO SCH ×2 (08:19→20:35)
[2022-01-26] MEDS: ATORVASTATIN 40 MG TAB PO SCH (08:19)
[2022-01-26] MEDS: IPRATROPIUM-ALBUTEROL 3 ML NEB INHALATION SCH ×4 (08:22→20:53)
[2022-01-26] MEDS: ACETAMINOPHEN TAB 325 MG TAB PO PRN (08:30)
[2022-01-26] MEDS: SODIUM FERRIC GLUCONAT-SUCROSE 125 MG in SODIUM CHLORIDE 0.9% 100 ML IVPB SCH (08:36)
--- NOTE | 2022-01-26 09:23 | P.PN ---
Subjective Patient is seen in follow-up for acute kidney injury on chronic kidney disease. Creatinine 3.1 today. Urine output improved with metolazone and dopamine. Remains on Lasix drip. On 3 L is a cannula. Denies chest pain or shortness of breath. No vomiting or diarrhea. No active complaints. Vital signs are stable. General: No acute distress. HEENT: Head exam is unremarkable. On nasal cannula. LUNGS: Breath sounds decreased. HEART: Rate and Rhythm are regular. ABDOMEN: Soft, obese. EXTREMITITES: 2+ edema. Objective - Vital Signs Vital signs: Vital Signs Temp 98.2 F 01/26/22 04:00 Pulse 88 01/26/22 08:33 Resp 18 01/26/22 08:33 BP 149/89 01/26/22 07:00 Pulse Ox 96 01/26/22 08:22 Intake & Output 01/25/22 01/26/22 01/26/22 18:59 06:59 18:59 Intake Total 412.833 100 Output Total 1940 2710 Balance -1527.167 -2610 Weight 177.808 kg Intake: Intake, IV Titration 412.833 100 Amount Furosemide 100 mg In 162.833 100 Sodium Chloride 0.9% 90 ml @ 10 MG/HR 10 mls/hr IV .Q10H [facility] Rx#: [id number] Sodium Chloride 0.9% 1, 50 000 ml @ 5 mls/hr IV . Q24H [facility] Rx#:[id number] Sodium Ferric Gluconat- 100 Sucrose 125 mg In Sodium Chloride 0.9% 100 ml @ 100 mls/hr IVPB DAILY [facility] Rx#:[id number] cefTRIAXone 1 gm In 100 Sodium Chloride 0.9% 50 ml @ 100 mls/hr IVPB Q24HR [facility] Rx#:[id number] Output: Urine 1940 2710 Other: Voiding Method Indwelling Catheter Indwelling Catheter Indwelling Catheter - Labs CBC & Chem 7: 01/26/22 04:16 01/26/22 04:16 Labs: Abnormal Lab Results - Last 24 Hours (Table) 01/23/22 01/25/22 01/25/22 Range/Units 10:03 11:21 16:29 WBC (3.8-10.6) k/uL Hgb (11.4-16.0) gm/dL Hct (34.0-46.0) % MCH (25.0-35.0) pg MCHC (31.0-37.0) g/dL RDW (11.5-15.5) % BUN (7-17) mg/dL Creatinine (0.52-1.04) mg/dL Glucose (74-99) mg/dL POC Glucose (mg/dL) 113 H 129 H (75-99) mg/dL Albumin (3.5-5.0) g/dL Free [place] LC, Quant 11.66 H (0.33-1.94) mg/dL Free [place] LC, Quant 5.36 H (0.57-2.63) mg/dL 01/25/22 01/26/22 01/26/22 Range/Units 20:13 02:08 04:16 WBC 16.6 H (3.8-10.6) k/uL Hgb 9.5 L (11.4-16.0) gm/dL Hct 33.6 L (34.0-46.0) % MCH 24.5 L (25.0-35.0) pg MCHC 28.3 L (31.0-37.0) g/dL RDW 19.7 H (11.5-15.5) % BUN (7-17) mg/dL Creatinine (0.52-1.04) mg/dL Glucose (74-99) mg/dL POC Glucose (mg/dL) 135 H 131 H (75-99) mg/dL Albumin (3.5-5.0) g/dL Free [place] LC, Quant (0.33-1.94) mg/dL Free [place] LC, Quant (0.57-2.63) mg/dL 01/26/22 01/26/22 Range/Units 04:16 06:23 WBC (3.8-10.6) k/uL Hgb (11.4-16.0) gm/dL Hct (34.0-46.0) % MCH (25.0-35.0) pg MCHC (31.0-37.0) g/dL RDW (11.5-15.5) % BUN 87 H (7-17) mg/dL Creatinine 3.10 H (0.52-1.04) mg/dL Glucose 137 H (74-99) mg/dL POC Glucose (mg/dL) 121 H (75-99) mg/dL Albumin 3.4 L (3.5-5.0) g/dL Free [place] LC, Quant (0.33-1.94) mg/dL Free [place] LC, Quant (0.57-2.63) mg/dL Microbiology - Last 24 Hours (Table) 01/21/22 03:22 Blood Culture Gram Stain - Final Blood Blood Culture - Final Staphylococcus epidermidis 01/23/22 05:20 Blood Culture Gram Stain - Final Blood Blood Culture - Final Coagulase Negative Staph Assessment and Plan Plan: Assessment: 1. Acute kidney injury secondary to ATN secondary to hypotension, cardiorenal syndrome. Creatinine stable at 3.1. Nonoliguric. No hydronephrosis noted on kidney ultrasound. 2. Chronic kidney disease stage 3b/IV with baseline creatinine near 2 likely due to nephrosclerosis and cardiorenal syndrome. Patient unsure if she is diabetic or not - A1c 5.2% this admission. Serologies in 2020 were negative except serum immunofixation showed possible IgG kappa. UPC 1.06 g - ?secondary FSGS due to obesity. 3. Volume overload. 4. Acute on chronic diastolic CHF. 5. Hyperkalemia secondary to acute kidney injury and spironolactone. Resolved. 6. Morbid obesity. 7. Anemia of chronic kidney disease. Iron deficiency noted. 8. Hypotension due to underlying cardiac status. Cortisol level on the lower side. She received Solu-Medrol this admission. Plan: Maintain Lasix drip. Maintain metolazone. Also on dopamine. No monoclonality noted on serum immunofixation. Serologies negative done in November 2020. Will consider kidney biopsy outpatient for definitive diagnosis of her underlying chronic kidney disease. Avoid nephrotoxins. Continue to monitor renal function and urine output. Maintain IV iron. Maintain hydrocortisone. Patient will need to follow-up with endocrine outpatient for further workup for adrenal insufficiency. Hold midodrine for systolic blood pressure greater than 110.
--- NOTE | 2022-01-26 09:37 | P.PN ---
Subjective Patient is seen today in the ICU resting comfortable sitting up in bed. She still denies chest pain or shortness of breath. Her blood pressure is better controlled today. continue with Catapres, she is tolatering it well. Patient remains on dobutamine drip, Lasix drip, and metolazone. Patient is having good urine output, Creatinine remains elevated at 3.4. Objective - Vital Signs Vital signs: Vital Signs Temp 98.2 F 01/26/22 04:00 Pulse 88 01/26/22 08:33 Resp 18 01/26/22 08:33 BP 149/89 01/26/22 07:00 Pulse Ox 96 01/26/22 08:22 Intake & Output 01/25/22 01/26/22 01/26/22 18:59 06:59 18:59 Intake Total 412.833 100 Output Total 19390 Balance -1527.167 -2610 Weight 177.808 kg Intake: Intake, IV Titration 412.833 100 Amount Furosemide 100 mg In 162.833 100 Sodium Chloride 0.9% 90 ml @ 10 MG/HR 10 mls/hr IV .Q10H [facility] Rx#: [id number] Sodium Chloride 0.9% 1, 50 000 ml @ 5 mls/hr IV . Q24H [facility] Rx#:[id number] Sodium Ferric Gluconat- 100 Sucrose 125 mg In Sodium Chloride 0.9% 100 ml @ 100 mls/hr IVPB DAILY [facility] Rx#:[id number] cefTRIAXone 1 gm In 100 Sodium Chloride 0.9% 50 ml @ 100 mls/hr IVPB Q24HR [facility] Rx#:[id number] Output: Urine 1939 2709 Other: Voiding Method Indwelling Catheter Indwelling Catheter Indwelling Catheter - Exam PHYSICAL EXAM: VITAL SIGNS: Reviewed. GENERAL: Well-developed in no acute distress. HEENT: Head is normocephalic. Pupils are equal, round. Sclerae anicteric. Mucous membranes of the mouth are moist. NECK: Supple. No JVD or thyromegaly RESPIRATORY: Respirations even and unlabored. Lungs diminished to auscultation bilaterally. On 3 L oxygen CARDIO: Regular rate and rhythm. S1 and S2 heard. No murmur or gallops. EXTREMITIES: Normal range of motion. No clubbing or cyanosis. Peripheral pulses intact. mild bilateral lower extremity edema NEURO: Orientated to person, time, mood is appropriate - Labs CBC & Chem 7: 01/26/22 04:16 01/26/22 04:16 Labs: Abnormal Lab Results - Last 24 Hours (Table) 01/23/22 01/25/22 01/25/22 Range/Units 10:03 11:21 16:29 WBC (3.8-10.6) k/uL Hgb (11.4-16.0) gm/dL Hct (34.0-46.0) % MCH (25.0-35.0) pg MCHC (31.0-37.0) g/dL RDW (11.5-15.5) % BUN (7-17) mg/dL Creatinine (0.52-1.04) mg/dL Glucose (74-99) mg/dL POC Glucose (mg/dL) 113 H 129 H (75-99) mg/dL Albumin (3.5-5.0) g/dL Free [place] LC, Quant 11.66 H (0.33-1.94) mg/dL Free [place]ambda LC, Quant 5.36 H (0.57-2.63) mg/dL 01/25/22 01/26/22 01/26/22 Range/Units 20:13 02:08 04:16 WBC 16.6 H (3.8-10.6) k/uL Hgb 9.5 L (11.4-16.0) gm/dL Hct 33.6 L (34.0-46.0) % MCH 24.5 L (25.0-35.0) pg MCHC 28.3 L (31.0-37.0) g/dL RDW 19.7 H (11.5-15.5) % BUN (7-17) mg/dL Creatinine (0.52-1.04) mg/dL Glucose (74-99) mg/dL POC Glucose (mg/dL) 135 H 131 H (75-99) mg/dL Albumin (3.5-5.0) g/dL Free [place] LC, Quant (0.33-1.94) mg/dL Free Lambda LC, Quant (0.57-2.63) mg/dL 01/26/22 01/26/22 Range/Units 04:16 06:23 WBC (3.8-10.6) k/uL Hgb (11.4-16.0) gm/dL Hct (34.0-46.0) % MCH (25.0-35.0) pg MCHC (31.0-37.0) g/dL RDW (11.5-15.5) % BUN 87 H (7-17) mg/dL Creatinine 3.10 H (0.52-1.04) mg/dL Glucose 137 H (74-99) mg/dL POC Glucose (mg/dL) 121 H (75-99) mg/dL Albumin 3.4 L (3.5-5.0) g/dL Free [place] LC, Quant (0.33-1.94) mg/dL Free Lambda LC, Quant (0.57-2.63) mg/dL Microbiology - Last 24 Hours (Table) 01/21/22 03:22 Blood Culture Gram Stain - Final Blood Blood Culture - Final Staphylococcus epidermidis 01/23/22 05:20 Blood Culture Gram Stain - Final Blood Blood Culture - Final Coagulase Negative Staph Assessment and Plan Assessment: Hypertension Morbid obesity Renal insufficiency acute on chronic renal failure Plan: continue with Catapres 0.1 three times a day Patient will continue on Lasix and dobutamine drip per nephrology and on PO metolazone continue with all other current cardiac medications The above impression and plan of care have been discussed and directed by the signing physician. Aurora Payan, nurse practitioner, acting as scribe for signing physician.
[2022-01-26 10:11] VITALS: BMI 61.4
[2022-01-26] MEDS: BACLOFEN 10 MG TAB PO SCH (10:16)
[2022-01-26 11:20] LABS: Glucose,Whole Blood 120 mg/dL (75-99)
--- NOTE | 2022-01-26 12:17 | P.PN ---
Subjective Progress Note Date: 01/26/22 46-year-old black female who presented to the emergency department, via EMS, on January 21, for shortness of breath. The patient is seen in the emergency department, room 7. The patient is on BiPAP at 14/5 and 50%. The patient's getting saline at KVO. Also, Rocephin is being given. The patient is poorly responsive. The patient's chest x-ray appears to show CHF. The N-terminal proBNP was elevated. The patient has a history of coronary disease, chest pain, heart failure, hypertension, osteoarthritis, and sleep apnea syndrome. 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 White count is 14, heme him 10.2, hematocrit 34.8, and platelet count 295,000. D-dimer is 2.48. Venous CO2 is 58 with a pH is 7.25. Sodium 141, potassium 5, chlorides 108, CO2 23, anion gap 10, BUN 57, creatinine 1.78. Troponin is 0.081. N-terminal proBNP was 16,900. Albumin is 3.6. Testing for rizo virus was negative. Chest x-ray shows evidence of cardiomegaly, and pulmonary edema/CHF. The patient is seen today 01/23/2022 in follow-up on the selective care unit. She is maintaining O2 saturations in the mid 80s on 4 L/m per nasal cannula. Otherwise she does well on BiPAP 12/5 and 40% FiO2. She's been afebrile. His x-ray continues to show cardiomegaly with bilateral lower lung acute infiltrate/edema. No significant change from previous. Blood culture revealed no growth. White count 11.3. Hemoglobin 9.6. Platelets 261. Sodium 139. Potassium 5.5. Chloride 19. Bicarb 22. BUN was 70. Creatinine 2.09. Glucose 136. Urinalysis cloudy with large leukocytes and few bacteria. She is currently negative 420 ML's balance. She remains on DuoNeb inhalations. Initiated on a Lasix drip at 10 mg per hour. On 01/24/2022, the patient is being seen for a follow-up. The patient seems to be quite comfortable. The patient is awake and alert and there is no change in the mental status. The patient is currently on 3 L of O2 nasal cannula with a pulse ox of 90%. Note that the patient got transferred to the intensive care unit as the patient was having shortness of breath and massive fluid overload. The patient was started on Lasix drip at 10 mg an hour. Urine output has not been the best. Overall fluid balance is negative 420s over the past 24 hours. I was expecting further improvement in the urine output yet that urine output remains to be quite sluggish. The patient continues to have third spacing an extensive edema in all 4 extremities. BUN is at 77 with a creatinine of 3.2. Sodium is at 139. Potassium is at 4.8. Hemoglobin is at 9.9 with a white cell count of 10.5. She is afebrile. The patient had a possible culture with staph epidermidis. Meanwhile, the UA was abnormal and the urine cultures still pending. The patient remains on IV Rocephin. The patient was also seen by nephrology. A PICC line was also inserted in the right upper extremity for IV access. The patient will be started also on Zaroxolyn and midodrine will be used for hypotension a dose of 10 mg every 3 times a day. This was recommended by nephrology. At the same time, the patient's serum cortisol at baseline was 4 the patient was given stress dose hydrocortisone. 01/25/2022, the patient is doing better. The patient started producing adequate amount of urine output and the patient is producing more than 2 L over the past 8 hours and the patient's overall fluid balance is -1. liters since evening. For now, the patient remains on Lasix drip at 10 mg an hour, the patient is also on Zaroxolyn 5 mg by mouth twice a day and the patient is also on renal dose dopamine. Doing well. No significant complaints. No chest pain. The patient remains on 3 L O2 nasal cannula. No nausea. No vomiting. No diarrhea. No abdominal pain. No chest pain. No fever. No chills. Urine cultures are negative for now. The patient remains on empiric antibiotic coverage with IV Zosyn. BUN is at 82 with a creatinine of 3.08, the white cell count is 4.5 with a hemoglobin of 10.1 with a platelet count of 261. 01/26/2022, the patient continues to diurese well on Lasix 10 mg an hour in addition to Zaroxolyn and renal dose dopamine. Overall fluid balance has been - 1.4 L and the patient is losing weight and the patient's edema is improving. There creatinine is at 3.1 and the BUN is 87 and his sodium level is at 137. The white cell count at 13 with a hemoglobin of 9.5. The patient is using rising BiPAP overnight at a pressure of 40/5 cm of water. No other significant events overnight. She remains on empiric antibiotic coverage with IV Rocephin. Nephrology also opted to put this patient was just hydrocortisone. She is awake and alert and communicating. No altered mentation. No signs of any CO2 narcosis. Objective - Vital Signs Vital signs: Vital Signs Temp 99.2 F 01/26/22 08:00 Pulse 87 01/26/22 11:00 Resp 14 01/26/22 11:00 BP 170/107 01/26/22 11:00 Pulse Ox 96 01/26/22 11:00 Intake & Output 01/25/22 01/26/22 01/26/22 18:59 06:59 18:59 Intake Total 412.833 100 225.167 Output Total 1940 2710 1300 Balance -1527.167 -2610 -1074.833 Weight 177.808 kg 177.808 kg Intake: Intake, IV Titration 412.833 100 225.167 Amount Furosemide 100 mg In 162.833 100 25.167 Sodium Chloride 0.9% 90 ml @ 10 MG/HR 10 mls/hr IV .Q10H [facility] Rx#: [id number] Sodium Chloride 0.9% 1, 50 000 ml @ 5 mls/hr IV . Q24H [facility] Rx#:[id number] Sodium Ferric Gluconat- 100 100 Sucrose 125 mg In Sodium Chloride 0.9% 100 ml @ 100 mls/hr IVPB DAILY [facility] Rx#:[id number] cefTRIAXone 1 gm In 100 100 Sodium Chloride 0.9% 50 ml @ 100 mls/hr IVPB Q24HR [facility] Rx#:[id number] Output: Urine 1940 2710 1300 Other: Voiding Method Indwelling Catheter Indwelling Catheter Indwelling Catheter - Exam No acute distress, morbidly obese 46-year-old black female, currently on 3 L of O2 by nasal cannula. She is awake and alert and following commands and answering questions appropriately. HEENT examination is grossly unremarkable. Neck supple. Full range of motion. No adenopathy thyromegaly or neck vein distention. Cardiovascular examination reveals regular rhythm rate. S1-S2 normal. No S3 or S4. No discernible murmur noted. Heart rate 84. Heart sounds are distant. Lungs reveal bilateral rhonchi and crackles. No wheezes. Breath sounds equal bilaterally. Abdomen his, with bowel sounds. Extremities are intact. Extensive edema in lower oximetry is bilaterally. No cyanosis or clubbing. The patient is a PICC line in the right upper extremity. Skin is without rash or lesion. Neurologic no focal neurological deficit at this point in time.. The patient's very lethargic and somnolent has improved and the patient is alert and oriented 3 - Labs CBC & Chem 7: 01/26/22 04:16 01/26/22 04:16 Labs: Abnormal Lab Results - Last 24 Hours (Table) 01/23/22 01/25/22 01/25/22 Range/Units 10:03 16:29 20:13 WBC (3.8-10.6) k/uL Hgb (11.4-16.0) gm/dL Hct (34.0-46.0) % MCH (25.0-35.0) pg MCHC (31.0-37.0) g/dL RDW (11.5-15.5) % BUN (7-17) mg/dL Creatinine (0.52-1.04) mg/dL Glucose (74-99) mg/dL POC Glucose (mg/dL) 129 H 135 H (75-99) mg/dL Albumin (3.5-5.0) g/dL Free [place] LC, Quant 11.66 H (0.33-1.94) mg/dL Free [place] LC, Quant 5.36 H (0.57-2.63) mg/dL 01/26/22 01/26/22 01/26/22 Range/Units 02:08 04:16 04:16 WBC 16.6 H (3.8-10.6) k/uL Hgb 9.5 L (11.4-16.0) gm/dL Hct 33.6 L (34.0-46.0) % MCH 24.5 L (25.0-35.0) pg MCHC 28.3 L (31.0-37.0) g/dL RDW 19.7 H (11.5-15.5) % BUN 87 H (7-17) mg/dL Creatinine 3.10 H (0.52-1.04) mg/dL Glucose 137 H (74-99) mg/dL POC Glucose (mg/dL) 131 H (75-99) mg/dL Albumin 3.4 L (3.5-5.0) g/dL Free [place] LC, Quant (0.33-1.94) mg/dL Free [place] LC, Quant (0.57-2.63) mg/dL 01/26/22 01/26/22 Range/Units 06:23 11:19 WBC (3.8-10.6) k/uL Hgb (11.4-16.0) gm/dL Hct (34.0-46.0) % MCH (25.0-35.0) pg MCHC (31.0-37.0) g/dL RDW (11.5-15.5) % BUN (7-17) mg/dL Creatinine (0.52-1.04) mg/dL Glucose (74-99) mg/dL POC Glucose (mg/dL) 121 H 120 H (75-99) mg/dL Albumin (3.5-5.0) g/dL Free [place] LC, Quant (0.33-1.94) mg/dL Free [place]ambda LC, Quant (0.57-2.63) mg/dL Microbiology - Last 24 Hours (Table) 01/21/22 03:22 Blood Culture Gram Stain - Final Blood Blood Culture - Final Staphylococcus epidermidis 01/23/22 05:20 Blood Culture Gram Stain - Final Blood Blood Culture - Final Coagulase Negative Staph Assessment and Plan Plan: Acute on chronic hypoxic respiratory failure, essentially secondary CHF as the patient has cardiomegaly, pulmonary edema, elevated proBNP level highly suggestive of underlying decompensated CHF. Clinically the patient is stable on 3 L O2 nasal cannula. The patient is being diuresed with Lasix, Zaroxolyn the patient is on renal dose dopamine. The patient is clinically improving and the patient is headed towards a negative fluid balance Significant fluid overload and third spacing Acute mental status change, secondary to above, recovered Previous history of upper GI bleeding Anemia of chronic disease, hemoglobin is stable History of congestive heart failure, LV function is preserved, RV is quite dilated History of benign essential hypertension. Morbid obesity. History of DVT. History of generalized anxiety disorder. History of obstructive sleep apnea syndrome. The patient is provided CPAP therapy at a pressure of 16 cm of water on outpatient basis Chronic kidney disease. Stage IIIB, with a component of an acute kidney injury, probably related to cardiorenal factors, creatinine is stable at 3.08 and the patient is producing adequate amount of urine output Non-anion gap metabolic acidosis History of supraventricular tachycardia. This is inactive and stable for now Staph epidermidis in the blood, likely a contaminant Suspected UTI, urine cultures negative and the patient remains on IV Rocephin Plan continue CPAP/BiPAP overnight O2 at 3 L of oxygen by nasal cannula Change the Lasix dose 5 mg an hour, and add Zaroxolyn 5 mg by mouth twice a day Dopamine renal dose Monitor electrolytes Monitor fluid balance Keep the Colon catheter in place Stop the IV Rocephin The PICC line been inserted in the right upper extremity We'll continue to follow
--- NOTE | 2022-01-26 15:12 | PN ---
PROGRESS NOTE DATE OF SERVICE: 01/26/2022 CHIEF COMPLAINT: Acute congestive heart failure, chronic congestive heart failure, chronic renal failure and cardiomyopathy. HISTORY OF PRESENT ILLNESS: This lady is fairly stable. She still remains on IV diuretics. She is urinating. BUN and creatinine are holding relatively stable with a BUN of 87 and creatinine of 3.1. Blood pressure is still high. Her blood sugars are normal. Her white count is 16,600 with hemoglobin of 9.5. REVIEW OF SYSTEMS: She states she feels good. She denies headaches, chest pain, shortness of breath, abdominal pain, etc. PHYSICAL EXAMINATION: Blood pressure is 156/93, temperature 99. She is overweight. Head ears, eyes, nose and mouth are otherwise unchanged. Her chest is clear. Cardiac exam is normal with tachycardia. The abdomen is protuberant and soft. Extremities are normal. IMPRESSION: 1. Acute on chronic congestive heart failure. 2. Cardiomyopathy. 3. Acute on chronic chronic kidney disease. 4. Obesity. 5. Diabetes. PLAN: Continue to follow and monitor her management in ICU. MMODL / IJN: [id number] /
[2022-01-26 16:31] LABS: Glucose,Whole Blood 134 mg/dL (75-99)
[2022-01-26 20:28] LABS: Glucose,Whole Blood 120 mg/dL (75-99)
[2022-01-26] MEDS: DEXTROSE/WATER 1 250ML.BAG with DOPamine DRIP 800 MG IV SCH ×2 (20:32→20:36)
[2022-01-27] MEDS: FUROSEMIDE 100 MG in SODIUM CHLORIDE 0.9% 90 ML IV SCH ×2 (00:33→15:21)
[2022-01-27 04:58] LABS: Anisocytosis Slight; HCT 32.5 % (34.0-46.0); HGB 9.6 gm/dL (11.4-16.0); Hypochromasia Marked; MCHC 29.4 g/dL (31.0-37.0); MCV 84.8 fL (80.0-100.0); Mean Platelet Volume 9.4; Microcytosis Slight; Platelet Count 202 k/uL (150-450); Poikilocytosis Slight; RBC 3.83 m/uL (3.80-5.40); RDW 19.8 % (11.5-15.5); WBC 16.9 k/uL (3.8-10.6)
[2022-01-27 05:12] LABS: Albumin 3.2 g/dL (3.5-5.0); Calcium 9.4 mg/dL (8.4-10.2); Potassium 3.9 mmol/L (3.5-5.1); Total Bilirubin 0.5 mg/dL (0.2-1.3)
[2022-01-27 06:42] LABS: Glucose,Whole Blood 97 mg/dL (75-99)
[2022-01-27] MEDS: INSULIN ASPART (NovoLOG) 100 UNIT/ML VIAL SQ SCH ×4 (07:07→20:13)
[2022-01-27] MEDS: METOPROLOL TARTRATE 50 MG TAB PO SCH ×2 (07:19→20:13)
[2022-01-27] MEDS: metOLazone 5 MG TAB PO SCH ×2 (07:20→20:12)
[2022-01-27] MEDS: cloNIDine HCL 0.1 MG TAB PO SCH ×4 (07:20→21:50)
[2022-01-27] MEDS: SODIUM CHLORIDE 0.9% 1,000 ML IV SCH (07:21)
[2022-01-27] MEDS: IPRATROPIUM-ALBUTEROL 3 ML NEB INHALATION SCH ×4 (07:44→19:26)
[2022-01-27] MEDS: SODIUM FERRIC GLUCONAT-SUCROSE 125 MG in SODIUM CHLORIDE 0.9% 100 ML IVPB SCH (08:38)
[2022-01-27] MEDS: HYDROCORTISONE SUCCINATE 100 MG/2 ML VIAL IV SCH (08:38)
[2022-01-27] MEDS: HEPARIN SODIUM,PORCINE/PF 5,000 UNIT/0.5 ML SYRINGE SQ SCH ×2 (08:38→20:13)
[2022-01-27] MEDS: BACLOFEN 10 MG TAB PO SCH (08:38)
[2022-01-27] MEDS: ATORVASTATIN 40 MG TAB PO SCH (08:38)
[2022-01-27] MEDS: PANTOPRAZOLE 40 MG/10 ML VIAL IVP SCH (08:38)
[2022-01-27] MEDS ORDERED: hydrALAZINE HCL 20 MG/ML 1 ML VIAL IVP PRN (08:58)
--- NOTE | 2022-01-27 09:00 | P.PN ---
Subjective Patient is seen in follow-up for acute kidney injury on chronic kidney disease. Renal function improved. Nonoliguric. On Lasix drip and metolazone. Also on dopamine. Denies chest pain or shortness of breath. On 3 L nasal cannula. Vital signs are stable. General: No acute distress. HEENT: Head exam is unremarkable. On nasal cannula. LUNGS: Breath sounds decreased. HEART: Rate and Rhythm are regular. ABDOMEN: Soft, obese. EXTREMITITES: 2+ edema. Objective - Vital Signs Vital signs: Vital Signs Temp 98.8 F 01/27/22 04:00 Pulse 92 01/27/22 07:57 Resp 21 01/27/22 07:00 BP 184/104 01/27/22 07:00 Pulse Ox 95 01/27/22 07:00 Intake & Output 01/26/22 01/27/22 01/27/22 18:59 06:59 18:59 Intake Total 285.167 473.2 Output Total 3550 4345 Balance -3264.833 -3871.8 Weight 177.808 kg 176.221 kg Intake: IV 223.2 Dextrose/Water 1 250ml. 103.2 bag @ 2.5 MCG/KG/MIN 8. 605 mls/hr IV .Q24H [facility] with DOPamine DRIP 800 mg Rx#:[id number] Furosemide 100 mg In 60 Sodium Chloride 0.9% 90 ml @ 5 MG/HR 5 mls/hr IV .Q20H [facility] Rx#:[id number] Sodium Chloride 0.9% 1, 60 000 ml @ 5 mls/hr IV . Q24H [facility] Rx#:[id number] Intake, IV Titration 285.167 Amount Furosemide 100 mg In 25.167 Sodium Chloride 0.9% 90 ml @ 10 MG/HR 10 mls/hr IV .Q10H [facility] Rx#: [id number] Sodium Chloride 0.9% 1, 60 000 ml @ 5 mls/hr IV . Q24H [facility] Rx#:[id number] Sodium Ferric Gluconat- 100 Sucrose 125 mg In Sodium Chloride 0.9% 100 ml @ 100 mls/hr IVPB DAILY [facility] Rx#:[id number] cefTRIAXone 1 gm In 100 Sodium Chloride 0.9% 50 ml @ 100 mls/hr IVPB Q24HR [facility] Rx#:[id number] Oral 250 Output: Urine 3550 4345 Other: Voiding Method Indwelling Catheter Indwelling Catheter - Labs CBC & Chem 7: 01/27/22 04:37 01/27/22 04:37 Labs: Abnormal Lab Results - Last 24 Hours (Table) 01/26/22 01/26/22 01/26/22 Range/Units 11:19 16:29 20:26 WBC (3.8-10.6) k/uL Hgb (11.4-16.0) gm/dL Hct (34.0-46.0) % MCHC (31.0-37.0) g/dL RDW (11.5-15.5) % BUN (7-17) mg/dL Creatinine (0.52-1.04) mg/dL Glucose (74-99) mg/dL POC Glucose (mg/dL) 120 H 134 H 120 H (75-99) mg/dL Albumin (3.5-5.0) g/dL 01/27/22 01/27/22 Range/Units 04:37 04:37 WBC 16.9 H (3.8-10.6) k/uL Hgb 9.6 L (11.4-16.0) gm/dL Hct 32.5 L (34.0-46.0) % MCHC 29.4 L (31.0-37.0) g/dL RDW 19.8 H (11.5-15.5) % BUN 84 H (7-17) mg/dL Creatinine 2.42 H (0.52-1.04) mg/dL Glucose 118 H (74-99) mg/dL POC Glucose (mg/dL) (75-99) mg/dL Albumin 3.2 L (3.5-5.0) g/dL Assessment and Plan Plan: Assessment: 1. Acute kidney injury secondary to ATN secondary to hypotension, cardiorenal syndrome. Renal function better. Creatinine 2.42 today. Nonoliguric. No hydronephrosis noted on kidney ultrasound. 2. Chronic kidney disease stage 3b/IV with baseline creatinine near 2 likely due to nephrosclerosis and cardiorenal syndrome. Patient unsure if she is diabetic or not - A1c 5.2% this admission. Serologies in 2020 were negative except serum immunofixation showed possible IgG kappa. UPC 1.06 g - ?secondary FSGS due to obesity. 3. Volume overload. 4. Acute on chronic diastolic CHF. 5. Hyperkalemia secondary to acute kidney injury and spironolactone. Resolved. 6. Morbid obesity. 7. Anemia of chronic kidney disease. Iron deficiency noted. 8. Hypotension due to underlying cardiac status. Cortisol level on the lower side. She received Solu-Medrol this admission. Resolved. Plan: Maintain Lasix drip. Maintain metolazone. Stop dopamine as blood pressure is high. Increase dose of clonidine. Add when necessary hydralazine. Change IV hydrocortisone to oral Cortef. No monoclonality noted on serum immunofixation. Serologies negative done in November 2020. Will consider kidney biopsy outpatient for definitive diagnosis of her underlying chronic kidney disease. Avoid nephrotoxins. Continue to monitor renal function and urine output. Maintain IV iron. Patient will need to follow-up with endocrine outpatient for further workup for adrenal insufficiency.
--- NOTE | 2022-01-27 09:22 | XR ---
EXAMINATION TYPE: XR chest 1V portable DATE OF EXAM: 01/27/2022 COMPARISON: 01/17/2022 INDICATION: Short of breath TECHNIQUE: Single frontal view of the chest is obtained. FINDINGS: The heart size is moderately prominent. The pulmonary vasculature is normal. Previous right lower lobe infiltrate has largely resolved. A retrocardiac infiltrate cannot be exclud ed. PICC line enters on the right with the tip in the superior vena cava region. IMPRESSION: 1. Cardiomegaly. 2. Improving right lower lobe infiltrate. Retrocardiac infiltrate is not excluded. Continued follow-u p can be performed.
[2022-01-27] MEDS: HYDROCORTISONE 10 MG TAB PO SCH ×2 (09:37→20:13)
--- NOTE | 2022-01-27 10:42 | P.PN ---
Subjective Progress Note Date: 01/27/22 46-year-old black female who presented to the emergency department, via EMS, on January 21, for shortness of breath. The patient is seen in the emergency department, room 7. The patient is on BiPAP at 14/5 and 50%. The patient's getting saline at KVO. Also, Rocephin is being given. The patient is poorly responsive. The patient's chest x-ray appears to show CHF. The N-terminal proBNP was elevated. The patient has a history of coronary disease, chest pain, heart failure, hypertension, osteoarthritis, and sleep apnea syndrome. 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 White count is 14, heme him 10.2, hematocrit 34.8, and platelet count 295,000. D-dimer is 2.48. Venous CO2 is 58 with a pH is 7.25. Sodium 141, potassium 5, chlorides 108, CO2 23, anion gap 10, BUN 57, creatinine 1.78. Troponin is 0.081. N-terminal proBNP was 16,900. Albumin is 3.6. Testing for rizo virus was negative. Chest x-ray shows evidence of cardiomegaly, and pulmonary edema/CHF. The patient is seen today 01/23/2022 in follow-up on the selective care unit. She is maintaining O2 saturations in the mid 80s on 4 L/m per nasal cannula. Otherwise she does well on BiPAP 12/5 and 40% FiO2. She's been afebrile. His x-ray continues to show cardiomegaly with bilateral lower lung acute infiltrate/edema. No significant change from previous. Blood culture revealed no growth. White count 11.3. Hemoglobin 9.6. Platelets 261. Sodium 139. Potassium 5.5. Chloride 19. Bicarb 22. BUN was 70. Creatinine 2.09. Glucose 136. Urinalysis cloudy with large leukocytes and few bacteria. She is currently negative 420 ML's balance. She remains on DuoNeb inhalations. Initiated on a Lasix drip at 10 mg per hour. On 01/24/2022, the patient is being seen for a follow-up. The patient seems to be quite comfortable. The patient is awake and alert and there is no change in the mental status. The patient is currently on 3 L of O2 nasal cannula with a pulse ox of 90%. Note that the patient got transferred to the intensive care unit as the patient was having shortness of breath and massive fluid overload. The patient was started on Lasix drip at 10 mg an hour. Urine output has not been the best. Overall fluid balance is negative 420s over the past 24 hours. I was expecting further improvement in the urine output yet that urine output remains to be quite sluggish. The patient continues to have third spacing an extensive edema in all 4 extremities. BUN is at 77 with a creatinine of 3.2. Sodium is at 139. Potassium is at 4.8. Hemoglobin is at 9.9 with a white cell count of 10.5. She is afebrile. The patient had a possible culture with staph epidermidis. Meanwhile, the UA was abnormal and the urine cultures still pending. The patient remains on IV Rocephin. The patient was also seen by nephrology. A PICC line was also inserted in the right upper extremity for IV access. The patient will be started also on Zaroxolyn and midodrine will be used for hypotension a dose of 10 mg every 3 times a day. This was recommended by nephrology. At the same time, the patient's serum cortisol at baseline was 4 the patient was given stress dose hydrocortisone. 01/25/2022, the patient is doing better. The patient started producing adequate amount of urine output and the patient is producing more than 2 L over the past 8 hours and the patient's overall fluid balance is -1. liters since evening. For now, the patient remains on Lasix drip at 10 mg an hour, the patient is also on Zaroxolyn 5 mg by mouth twice a day and the patient is also on renal dose dopamine. Doing well. No significant complaints. No chest pain. The patient remains on 3 L O2 nasal cannula. No nausea. No vomiting. No diarrhea. No abdominal pain. No chest pain. No fever. No chills. Urine cultures are negative for now. The patient remains on empiric antibiotic coverage with IV Zosyn. BUN is at 82 with a creatinine of 3.08, the white cell count is 4.5 with a hemoglobin of 10.1 with a platelet count of 261. 01/26/2022, the patient continues to diurese well on Lasix 10 mg an hour in addition to Zaroxolyn and renal dose dopamine. Overall fluid balance has been - 1.4 L and the patient is losing weight and the patient's edema is improving. There creatinine is at 3.1 and the BUN is 87 and his sodium level is at 137. The white cell count at 13 with a hemoglobin of 9.5. The patient is using rising BiPAP overnight at a pressure of 40/5 cm of water. No other significant events overnight. She remains on empiric antibiotic coverage with IV Rocephin. Nephrology also opted to put this patient was just hydrocortisone. She is awake and alert and communicating. No altered mentation. No signs of any CO2 narcosis. 01/27/2022, patient is doing better. She continues to diurese well. She remains on 85 mg/m in addition to Zaroxolyn 5 mg twice a day and dopamine renal dose. Fluid balance is negative and the patient's creatinine is also improving is down to 2.4 with a BUN of 84 and the sodium level is at 138. The white cell count is at 14.9 with a hemoglobin of 9.6. Overnight, the patient is using the BiPAP at a pressure of 14/5 cm of water. She is currently on 3 L and her pulse ox of 99%. No nausea. No vomiting. No chest pain. Altered mentation. The findings on the case. We have decided to continue with diuresis as the patient continues to have extensive amount of edema in the lower extremity is bilaterally. Shortness of breath is also improved. Objective - Vital Signs Vital signs: Vital Signs Temp 98.8 F 01/27/22 04:00 Pulse 95 01/27/22 09:00 Resp 29 H 01/27/22 09:00 BP 146/105 01/27/22 09:00 Pulse Ox 96 01/27/22 09:00 Intake & Output 01/26/22 01/27/22 01/27/22 18:59 06:59 18:59 Intake Total 285.167 473.2 Output Total 3550 4345 Balance -3264.833 -3871.8 Weight 177.808 kg 176.221 kg Intake: IV 223.2 Dextrose/Water 1 250ml. 103.2 bag @ 2.5 MCG/KG/MIN 8. 605 mls/hr IV .Q24H [facility] with DOPamine IP 800 mg Rx#:[id number] Furosemide 100 mg In 60 Sodium Chloride 0.9% 90 ml @ 5 MG/HR 5 mls/hr IV .Q20H [facility] Rx#:[id number] Sodium Chloride 0.9% 1, 60 000 ml @ 5 mls/hr IV . Q24H [facility] Rx#:[id number] Intake, IV Titration 285.167 Amount Furosemide 100 mg In 25.167 Sodium Chloride 0.9% 90 ml @ 10 MG/HR 10 mls/hr IV .Q10H [facility] Rx#: [id number] Sodium Chloride 0.9% 1, 60 000 ml @ 5 mls/hr IV . Q24H [facility] Rx#:[id number] Sodium Ferric Gluconat- 100 Sucrose 125 mg In Sodium Chloride 0.9% 100 ml @ 100 mls/hr IVPB DAILY [facility] Rx#:[id number] cefTRIAXone 1 gm In 100 Sodium Chloride 0.9% 50 ml @ 100 mls/hr IVPB Q24HR [facility] Rx#:[id number] Oral 250 Output: Urine 3550 4345 Other: Voiding Method Indwelling Catheter Indwelling Catheter Indwelling Catheter - Exam No acute distress, morbidly obese 46-year-old black female, currently on 3 L of O2 by nasal cannula. She is awake and alert and following commands and an swering questions appropriately. HEENT examination is grossly unremarkable. Neck supple. Full range of motion. No adenopathy thyromegaly or neck vein distention. Cardiovascular examination reveals regular rhythm rate. S1-S2 normal. No S3 or S4. No discernible murmur noted. Heart rate 84. Heart sounds are distant. Lungs reveal bilateral rhonchi and crackles. No wheezes. Breath sounds equal bilaterally. Abdomen his, with bowel sounds. Extremities are intact. Extensive edema in lower oximetry is bilaterally. No cyanosis or clubbing. The patient is a PICC line in the right upper extremity. Skin is without rash or lesion. Neurologic no focal neurological deficit at this point in time.. The patient's very lethargic and somnolent has improved and the patient is alert and oriented 3 - Labs CBC & Chem 7: 01/27/22 04:37 01/27/22 04:37 Labs: Abnormal Lab Results - Last 24 Hours (Table) 01/26/22 01/26/22 01/26/22 Range/Units 11:19 16:29 20:26 WBC (3.8-10.6) k/uL Hgb (11.4-16.0) gm/dL Hct (34.0-46.0) % MCHC (31.0-37.0) g/dL RDW (11.5-15.5) % BUN (7-17) mg/dL Creatinine (0.52-1.04) mg/dL Glucose (74-99) mg/dL POC Glucose (mg/dL) 120 H 134 H 120 H (75-99) mg/dL Albumin (3.5-5.0) g/dL 01/27/22 01/27/22 Range/Units 04:37 04:37 WBC 16.9 H (3.8-10.6) k/uL Hgb 9.6 L (11.4-16.0) gm/dL Hct 32.5 L (34.0-46.0) % MCHC 29.4 L (31.0-37.0) g/dL RDW 19.8 H (11.5-15.5) % BUN 84 H (7-17) mg/dL Creatinine 2.42 H (0.52-1.04) mg/dL Glucose 118 H (74-99) mg/dL POC Glucose (mg/dL) (75-99) mg/dL Albumin 3.2 L (3.5-5.0) g/dL Assessment and Plan Plan: Acute on chronic hypoxic respiratory failure, essentially secondary CHF as the patient has cardiomegaly, pulmonary edema, elevated proBNP level highly suggestive of underlying decompensated CHF. Clinically the patient is stable on 3 L O2 nasal cannula. The patient is being diuresed with Lasix, Zaroxolyn the patient is on renal dose dopamine. The patient is clinically improving and the patient is headed towards a negative fluid balance, patient continues to improve Significant fluid overload and third spacing Acute mental status change, secondary to above, recovered Previous history of upper GI bleeding Anemia of chronic disease, hemoglobin is stable History of congestive heart failure, LV function is preserved, RV is quite dilated History of benign essential hypertension. Morbid obesity. History of DVT. History of generalized anxiety disorder. History of obstructive sleep apnea syndrome. The patient is provided CPAP therapy at a pressure of 16 cm of water on outpatient basis Chronic kidney disease. Stage IIIB, with a component of an acute kidney injury, probably related to cardiorenal factors, creatinine is stable at 3.08 and the patient is producing adequate amount of urine output Non-anion gap metabolic acidosis History of supraventricular tachycardia. This is inactive and stable for now Staph epidermidis in the blood, likely a contaminant Suspected UTI, urine cultures negative and the patient remains on IV Rocephin Plan continue CPAP/BiPAP overnight at a pressure of 14/5 cm of water with an FiO2 of 40%, currently on 3 L O2 nasal cannula O2 at 3 L of oxygen by nasal cannula Continue Lasix drip with a Lasix dose 5 mg an hour, and add Zaroxolyn 5 mg by mouth twice a day Dopamine renal dose Monitor electrolytes Monitor fluid balance Keep the Colon catheter in place The PICC line been inserted in the right upper extremity We'll continue to follow
[2022-01-27 11:22] LABS: Glucose,Whole Blood 107 mg/dL (75-99)
--- NOTE | 2022-01-27 14:21 | PN ---
PROGRESS NOTE FOLLOW-UP NOTE: Ankita is a 46-year-old lady with morbid obesity, hypertension and COPD who is currently in ICU with respiratory failure secondary to a combination of COPD and CHF exacerbations. She is currently on renal-dose dopamine, Lasix and Zaroxolyn, improving urine output. Continues to have prerenal azotemia and blood pressures are well controlled. On exam, heart rate is 90 beats per minute. Blood pressure is 113/82. Respiratory rate is 18. Chest exam reveals diminished air entry at the bases. Heart exam reveals first and second heart sounds. No gallop. Abdomen is soft. Examination of extremities reveals mild edema bilaterally. Labs show a hemoglobin of 9.6, platelet count is 202, BUN is 84. That has increased from 57 on admission. Creatinine is 2.4. That has increased from 1.7, but most recently it has improved from 3.1. Patient had an echocardiogram on this admission that revealed preserved LV function. ASSESSMENT: 1. Acute exacerbation of chronic diastolic heart failure. 2. Hypertension. 3. Morbid obesity. 4. Respiratory insufficiency. PLAN: Patient will continue current medications, including Lipitor, Catapres 0.3 t.i.d., subcutaneous heparin, Lopressor, Zaroxolyn, and Lasix drip. MMODL / IJN: [id number] /
[2022-01-27 16:05] LABS: Glucose,Whole Blood 160 mg/dL (75-99)
--- NOTE | 2022-01-27 16:10 | PN ---
PROGRESS NOTE DATE OF SERVICE: 01/27/2022 CHIEF COMPLAINT: Congestive heart and renal failures. HISTORY OF PRESENT ILLNESS: This lady is more or less stable. Creatinine has dropped slightly. Laboratory studies demonstrate her white count is 16,900 and hemoglobin 9.6, which are fairly stable. BUN is 84. The creatinine is down to 2.42. PHYSICAL EXAMINATION: Blood pressure 176/96. Chest is clear but breath sounds are diminished due to her size. The cardiac exam is normal. The abdomen is soft and there are no masses. Extremities are unchanged. IMPRESSION: 1. Acute on chronic congestive heart failure. 2. Cardiomyopathy. 3. Chronic renal failure. 4. Cardiorenal syndrome. 5. Uncontrolled diabetes. 6. Hypertension. 7. Morbid obesity. PLAN: No change in program and she continues with ICU care. MMODL / IJN: [id number] /
[2022-01-27 20:00] LABS: Glucose,Whole Blood 138 mg/dL (75-99)
[2022-01-28] MEDS: FUROSEMIDE 100 MG in SODIUM CHLORIDE 0.9% 90 ML IV SCH (01:59)
[2022-01-28 06:41] LABS: Glucose,Whole Blood 93 mg/dL (75-99)
[2022-01-28] MEDS: SODIUM CHLORIDE 0.9% 1,000 ML IV SCH (06:59)
[2022-01-28] MEDS: INSULIN ASPART (NovoLOG) 100 UNIT/ML VIAL SQ SCH ×4 (06:59→21:39)
[2022-01-28] MEDS: IPRATROPIUM-ALBUTEROL 3 ML NEB INHALATION SCH (08:05)
[2022-01-28 08:23] LABS: Calcium 9.3 mg/dL (8.4-10.2); Potassium 3.2 mmol/L (3.5-5.1)
--- NOTE | 2022-01-28 08:49 | P.PN ---
Subjective Progress Note Date: 01/28/22 46-year-old black female who presented to the emergency department, via EMS, on January 21, for shortness of breath. The patient is seen in the emergency department, room 7. The patient is on BiPAP at 14/5 and 50%. The patient's getting saline at KVO. Also, Rocephin is being given. The patient is poorly responsive. The patient's chest x-ray appears to show CHF. The N-terminal proBNP was elevated. The patient has a history of coronary disease, chest pain, heart failure, hypertension, osteoarthritis, and sleep apnea syndrome. 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 White count is 14, heme him 10.2, hematocrit 34.8, and platelet count 295,000. D-dimer is 2.48. Venous CO2 is 58 with a pH is 7.25. Sodium 141, potassium 5, chlorides 108, CO2 23, anion gap 10, BUN 57, creatinine 1.78. Troponin is 0.081. N-terminal proBNP was 16,900. Albumin is 3.6. Testing for rizo virus was negative. Chest x-ray shows evidence of cardiomegaly, and pulmonary edema/CHF. The patient is seen today 01/23/2022 in follow-up on the selective care unit. She is maintaining O2 saturations in the mid 80s on 4 L/m per nasal cannula. Otherwise she does well on BiPAP 12/5 and 40% FiO2. She's been afebrile. His x-ray continues to show cardiomegaly with bilateral lower lung acute infiltrate/edema. No significant change from previous. Blood culture revealed no growth. White count 11.3. Hemoglobin 9.6. Platelets 261. Sodium 139. Potassium 5.5. Chloride 19. Bicarb 22. BUN was 70. Creatinine 2.09. Glucose 136. Urinalysis cloudy with large leukocytes and few bacteria. She is currently negative 420 ML's balance. She remains on DuoNeb inhalations. Initiated on a Lasix drip at 10 mg per hour. On 01/24/2022, the patient is being seen for a follow-up. The patient seems to be quite comfortable. The patient is awake and alert and there is no change in the mental status. The patient is currently on 3 L of O2 nasal cannula with a pulse ox of 90%. Note that the patient got transferred to the intensive care unit as the patient was having shortness of breath and massive fluid overload. The patient was started on Lasix drip at 10 mg an hour. Urine output has not been the best. Overall fluid balance is negative 420s over the past 24 hours. I was expecting further improvement in the urine output yet that urine output remains to be quite sluggish. The patient continues to have third spacing an extensive edema in all 4 extremities. BUN is at 77 with a creatinine of 3.2. Sodium is at 139. Potassium is at 4.8. Hemoglobin is at 9.9 with a white cell count of 10.5. She is afebrile. The patient had a possible culture with staph epidermidis. Meanwhile, the UA was abnormal and the urine cultures still pending. The patient remains on IV Rocephin. The patient was also seen by nephrology. A PICC line was also inserted in the right upper extremity for IV access. The patient will be started also on Zaroxolyn and midodrine will be used for hypotension a dose of 10 mg every 3 times a day. This was recommended by nephrology. At the same time, the patient's serum cortisol at baseline was 4 the patient was given stress dose hydrocortisone. 01/25/2022, the patient is doing better. The patient started producing adequate amount of urine output and the patient is producing more than 2 L over the past 8 hours and the patient's overall fluid balance is -1. liters since evening. For now, the patient remains on Lasix drip at 10 mg an hour, the patient is also on Zaroxolyn 5 mg by mouth twice a day and the patient is also on renal dose dopamine. Doing well. No significant complaints. No chest pain. The patient remains on 3 L O2 nasal cannula. No nausea. No vomiting. No diarrhea. No abdominal pain. No chest pain. No fever. No chills. Urine cultures are negative for now. The patient remains on empiric antibiotic coverage with IV Zosyn. BUN is at 82 with a creatinine of 3.08, the white cell count is 4.5 with a hemoglobin of 10.1 with a platelet count of 261. 01/26/2022, the patient continues to diurese well on Lasix 10 mg an hour in addition to Zaroxolyn and renal dose dopamine. Overall fluid balance has been - 1.4 L and the patient is losing weight and the patient's edema is improving. There creatinine is at 3.1 and the BUN is 87 and his sodium level is at 137. The white cell count at 13 with a hemoglobin of 9.5. The patient is using rising BiPAP overnight at a pressure of 40/5 cm of water. No other significant events overnight. She remains on empiric antibiotic coverage with IV Rocephin. Nephrology also opted to put this patient was just hydrocortisone. She is awake and alert and communicating. No altered mentation. No signs of any CO2 narcosis. 01/27/2022, patient is doing better. She continues to diurese well. She remains on 85 mg/m in addition to Zaroxolyn 5 mg twice a day and dopamine renal dose. Fluid balance is negative and the patient's creatinine is also improving is down to 2.4 with a BUN of 84 and the sodium level is at 138. The white cell count is at 14.9 with a hemoglobin of 9.6. Overnight, the patient is using the BiPAP at a pressure of 14/5 cm of water. She is currently on 3 L and her pulse ox of 99%. No nausea. No vomiting. No chest pain. Altered mentation. The findings on the case. We have decided to continue with diuresis as the patient continues to have extensive amount of edema in the lower extremity is bilaterally. Shortness of breath is also improved. 01/28/2022, seeing the patient for a follow-up. Doing extremely well. No specific complaints. Overnight she was on a BiPAP at a pressure of 14/5 centimeters of water with an FiO2 of 40%, currently on 3 L with a pulse ox of 99%. Fluid balance is -4.1 L 40 yesterday and currently is 14 today. He remains on Lasix 5 mg an hour, Zaroxolyn and the dopamine drip has been discontinued. No chest pain. No cough or sputum production. She has lost considerable amount of weight which is in order of 17 kg over the past several days. No altered mentation. No signs of any CO2 narcosis. Objective - Vital Signs Vital signs: Vital Signs Temp 98.4 F 01/28/22 04:00 Pulse 83 01/28/22 08:12 Resp 16 01/28/22 07:00 BP 151/93 01/28/22 07:00 Pulse Ox 95 01/28/22 07:00 Intake & Output 01/27/22 01/28/22 01/28/22 18:59 06:59 18:59 Intake Total 709 345.167 Output Total 4200 4625 Balance -3491 -4279.833 Weight 164.54 kg Intake: IV 55 70 Furosemide 100 mg In 60 Sodium Chloride 0.9% 90 ml @ 10 MG/HR 10 mls/hr IV .Q10H [facility] Rx#: [id number] Sodium Chloride 0.9% 1, 55 10 000 ml @ 5 mls/hr IV . Q24H [facility] Rx#:[id number] Intake, IV Titration 174 53.167 Amount Furosemide 100 mg In 74 53.167 Sodium Chloride 0.9% 90 ml @ 10 MG/HR 10 mls/hr IV .Q10H [facility] Rx#: [id number] Sodium Ferric Gluconat- 100 Sucrose 125 mg In Sodium Chloride 0.9% 100 ml @ 100 mls/hr IVPB DAILY [facility] Rx#:[id number] Oral 480 222 Output: Urine 4200 4625 Other: Voiding Method Indwelling Catheter Indwelling Catheter - Exam No acute distress, morbidly obese 46-year-old black female, currently on 3 L of O2 by nasal cannula. She is awake and alert and following commands and answering questions appropriately. HEENT examination is grossly unremarkable. Neck supple. Full range of motion. No adenopathy thyromegaly or neck vein distention. Cardiovascular examination reveals regular rhythm rate. S1-S2 normal. No S3 or S4. No discernible murmur noted. Heart rate 84. Heart sounds are distant. Lungs reveal bilateral rhonchi and crackles. No wheezes. Breath sounds equal bilaterally. Abdomen his, with bowel sounds. Extremities are intact. Extensive edema in lower oximetry is bilaterally. No cyanosis or clubbing. The patient is a PICC line in the right upper extremity. Skin is without rash or lesion. Neurologic no focal neurological deficit at this point in time.. The patient's very lethargic and somnolent has improved and the patient is alert and oriented 3 - Labs CBC & Chem 7: 01/27/22 04:37 01/28/22 07:51 Labs: Abnormal Lab Results - Last 24 Hours (Table) 01/27/22 01/27/22 01/27/22 Range/Units 11:20 16:03 19:59 Potassium (3.5-5.1) mmol/L Carbon Dioxide (22-30) mmol/L BUN (7-17) mg/dL Creatinine (0.52-1.04) mg/dL Glucose (74-99) mg/dL POC Glucose (mg/dL) 107 H 160 H 138 H (75-99) mg/dL 01/28/22 Range/Units 07:51 Potassium 3.2 L (3.5-5.1) mmol/L Carbon Dioxide 32 H (22-30) mmol/L BUN 81 H (7-17) mg/dL Creatinine 2.04 H (0.52-1.04) mg/dL Glucose 147 H (74-99) mg/dL POC Glucose (mg/dL) (75-99) mg/dL Microbiology - Last 24 Hours (Table) 01/23/22 05:20 Blood Culture Gram Stain - Final Blood Blood Culture - Final Diphtheroid species Assessment and Plan Plan: Acute on chronic hypoxic respiratory failure, essentially secondary CHF as the patient has cardiomegaly, pulmonary edema, elevated proBNP level highly suggestive of underlying decompensated CHF. Clinically the patient is stable on 3 L O2 nasal cannula. The patient is being diuresed with Lasix, Zaroxolyn the patient is on renal dose dopamine. The patient is clinically improving and the patient is headed towards a negative fluid balance, patient continues to improve Significant fluid overload and third spacing Acute mental status change, secondary to above, recovered Previous history of upper GI bleeding Anemia of chronic disease, hemoglobin is stable History of congestive heart failure, LV function is preserved, RV is quite dilated History of benign essential hypertension. Morbid obesity. History of DVT. History of generalized anxiety disorder. History of obstructive sleep apnea syndrome. The patient is provided CPAP ther apy at a pressure of 16 cm of water on outpatient basis Chronic kidney disease. Stage IIIB, with a component of an acute kidney injury, probably related to cardiorenal factors, creatinine is stable at 3.08 and the patient is producing adequate amount of urine output Non-anion gap metabolic acidosis History of supraventricular tachycardia. This is inactive and stable for now Staph epidermidis in the blood, likely a contaminant Suspected UTI, urine cultures negative and the patient remains on IV Rocephin Plan Discontinue the dopamine drip Discontinue the Lasix strip up with the patient Lasix 40 mg IV every 12 hours Continue Zaroxolyn 5 mg by mouth twice a day Discontinue DuoNeb nebulized treatments around the clock Wean down FiO2 as tolerated continue CPAP/BiPAP overnight at a pressure of 14/5 cm of water with an FiO2 of 40% O2 at 3 L of oxygen by nasal cannula We'll continue to follow
[2022-01-28] MEDS ORDERED: FUROSEMIDE 10 MG/ML 4 ML VIAL IV SCH (09:00)
[2022-01-28] MEDS ORDERED: POTASSIUM CHLORIDE ER 20 MEQ TAB.ER PO STA (10:51)
[2022-01-28] MEDS: cloNIDine HCL 0.1 MG TAB PO SCH ×3 (10:57→21:40)
[2022-01-28] MEDS: BACLOFEN 10 MG TAB PO SCH (10:57)
[2022-01-28] MEDS: ATORVASTATIN 40 MG TAB PO SCH (10:57)
[2022-01-28] MEDS: HYDROCORTISONE 10 MG TAB PO SCH ×2 (10:58→21:44)
[2022-01-28] MEDS: METOPROLOL TARTRATE 50 MG TAB PO SCH ×2 (10:58→21:40)
[2022-01-28] MEDS: HEPARIN SODIUM,PORCINE/PF 5,000 UNIT/0.5 ML SYRINGE SQ SCH ×2 (10:58→21:39)
[2022-01-28] MEDS: PANTOPRAZOLE 40 MG/10 ML VIAL IVP SCH (10:59)
[2022-01-28] MEDS: metOLazone 5 MG TAB PO SCH ×2 (10:59→21:44)
[2022-01-28 11:38] LABS: Glucose,Whole Blood 82 mg/dL (75-99)
--- NOTE | 2022-01-28 11:38 | P.PN ---
Subjective Patient is seen in follow-up for acute kidney injury on chronic kidney disease. Renal function improved. Nonoliguric. On Lasix drip and metolazone. Dopamine discontinued. Denies chest pain or shortness of breath. On 3 L nasal cannula. No active complaints. Vital signs are stable. General: No acute distress. HEENT: Head exam is unremarkable. On nasal cannula. LUNGS: Breath sounds decreased. HEART: Rate and Rhythm are regular. ABDOMEN: Soft, obese. EXTREMITITES: 2+ edema. Objective - Vital Signs Vital signs: Vital Signs Temp 98.4 F 01/28/22 04:00 Pulse 83 01/28/22 08:12 Resp 16 01/28/22 07:00 BP 151/93 01/28/22 07:00 Pulse Ox 95 01/28/22 07:00 Intake & Output 01/27/22 01/28/22 01/28/22 18:59 06:59 18:59 Intake Total 709 345.167 Output Total 4200 4625 Balance -3491 -4279.833 Weight 164.54 kg Intake: IV 55 70 Furosemide 100 mg In 60 Sodium Chloride 0.9% 90 ml @ 10 MG/HR 10 mls/hr IV .Q10H [facility] Rx#: [id number] Sodium Chloride 0.9% 1, 55 10 000 ml @ 5 mls/hr IV . Q24H [facility] Rx#:[id number] Intake, IV Titration 174 53.167 Amount Furosemide 100 mg In 74 53.167 Sodium Chloride 0.9% 90 ml @ 10 MG/HR 10 mls/hr IV .Q10H [facility] Rx#: [id number] Sodium Ferric Gluconat- 100 Sucrose 125 mg In Sodium Chloride 0.9% 100 ml @ 100 mls/hr IVPB DAILY [facility] Rx#:[id number] Oral 480 222 Output: Urine 4200 4625 Other: Voiding Method Indwelling Catheter Indwelling Catheter - Labs CBC & Chem 7: 01/27/22 04:37 01/28/22 07:51 Labs: Abnormal Lab Results - Last 24 Hours (Table) 01/27/22 01/27/22 01/28/22 Range/Units 16:03 19:59 07:51 Potassium 3.2 L (3.5-5.1) mmol/L Carbon Dioxide 32 H (22-30) mmol/L BUN 81 H (7-17) mg/dL Creatinine 2.04 H (0.52-1.04) mg/dL Glucose 147 H (74-99) mg/dL POC Glucose (mg/dL) 160 H 138 H (75-99) mg/dL Microbiology - Last 24 Hours (Table) 01/23/22 05:20 Blood Culture Gram Stain - Final Blood Blood Culture - Final Diphtheroid species Assessment and Plan Plan: Assessment: 1. Acute kidney injury secondary to ATN secondary to hypotension, cardiorenal syndrome. Renal function better. Creatinine 2.04 today. Nonoliguric. No hydronephrosis noted on kidney ultrasound. 2. Chronic kidney disease stage 3b/IV with baseline creatinine near 2 likely due to nephrosclerosis and cardiorenal syndrome. Patient unsure if she is diabetic or not - A1c 5.2% this admission. Serologies in 2020 were negative except serum immunofixation showed possible IgG kappa. UPC 1.06 g - ?secondary FSGS due to obesity. 3. Volume overload. Improving with diuresis. 4. Acute on chronic diastolic CHF. 5. Hyperkalemia secondary to acute kidney injury and spironolactone. Resolved. Now hypokalemic from diuresis. 6. Morbid obesity. 7. Anemia of chronic kidney disease. Iron deficiency noted. Status post IV iron. 8. Hypotension due to underlying cardiac status. Cortisol level on the lower side. She received Solu-Medrol this admission. Resolved. Plan: Stop Lasix drip. Add IV Lasix 60 mg twice daily. Maintain metolazone. Change IV hydrocortisone to oral Cortef. No monoclonality noted on serum immunofixation. Serologies negative done in November 2020. Will consider kidney biopsy outpatient for definitive diagnosis of her underlying chronic kidney disease. Avoid nephrotoxins. Continue to monitor renal function and urine output. Replace potassium. Add Aranesp. Patient will need to follow-up with endocrine outpatient for further workup for adrenal insufficiency.
[2022-01-28] MEDS ORDERED: DARBEPOETIN ALFA 40 MCG/0.4 ML SYRINGE SQ SCH (12:00)
--- NOTE | 2022-01-28 12:59 | PN ---
PROGRESS NOTE FOLLOW-UP NOTE: Ankita is a 46-year-old lady with history of morbid obesity, hypertension, dyslipidemia, renal insufficiency and congestive heart failure. She is still in the ICU, doing better. Blood pressures are better controlled. On exam, heart rate is 80 beats per minute. Blood pressure is 139/86, respiratory rate 18. Chest exam reveals diminished air entry bilaterally. Heart exam reveals first and second heart sounds. An S4 is heard. Abdomen is soft. Examination of extremities reveals bilateral 1+ edema. Patient is currently on Lasix 60 mg q.12, Catapres 0.3 t.i.d., Lipitor, Cortef, insulin, Zaroxolyn, Lopressor 100 b.i.d. Labs show potassium of 3.2, which is going to be supplemented. BUN of 81, creatinine of 2. ASSESSMENT: 1. Severe uncontrolled hypertension. 2. Renal insufficiency. 3. Acute on chronic diastolic heart failure. PLAN: Patient will continue current medications. We will continue to follow the patient. MMODL / IJN: [id number] /
[2022-01-28] MEDS: POTASSIUM CHLORIDE ER 20 MEQ TAB.ER PO SCH ×2 (15:51)
[2022-01-28 16:21] LABS: Glucose,Whole Blood 126 mg/dL (75-99)
[2022-01-28] MEDS: HYDROCORTISONE SUCCINATE 100 MG/2 ML VIAL IV SCH (17:50)
[2022-01-28 20:46] LABS: Glucose,Whole Blood 163 mg/dL (75-99)
[2022-01-28] MEDS: FUROSEMIDE 10 MG/ML 10 ML VIAL IV SCH (21:42)
[2022-01-29 03:11] LABS: Glucose,Whole Blood 103 mg/dL (75-99)
[2022-01-29 07:12] LABS: Glucose,Whole Blood 90 mg/dL (75-99)
[2022-01-29] MEDS: PANTOPRAZOLE 40 MG/10 ML VIAL IVP SCH (08:19)
[2022-01-29] MEDS: FUROSEMIDE 10 MG/ML 10 ML VIAL IV SCH ×2 (08:19→20:45)
[2022-01-29] MEDS: BACLOFEN 10 MG TAB PO SCH (08:24)
[2022-01-29] MEDS: METOPROLOL TARTRATE 50 MG TAB PO SCH ×2 (09:44→19:35)
[2022-01-29] MEDS: cloNIDine HCL 0.1 MG TAB PO SCH ×3 (09:45→21:13)
[2022-01-29] MEDS: ATORVASTATIN 40 MG TAB PO SCH (09:45)
[2022-01-29] MEDS: metOLazone 5 MG TAB PO SCH ×2 (09:45→19:35)
[2022-01-29] MEDS: HYDROCORTISONE 10 MG TAB PO SCH ×2 (09:45→19:35)
[2022-01-29] MEDS: INSULIN ASPART (NovoLOG) 100 UNIT/ML VIAL SQ SCH ×4 (09:46→19:36)
[2022-01-29] MEDS: HEPARIN SODIUM,PORCINE/PF 5,000 UNIT/0.5 ML SYRINGE SQ SCH ×2 (09:46→19:35)
--- NOTE | 2022-01-29 10:41 | P.PN ---
Subjective Patient is seen in follow-up for acute kidney injury on chronic kidney disease. Renal function has been improving. Nonoliguric. On IV Lasix and metolazone. Dopamine discontinued. Denies chest pain or shortness of breath. On 3 L nasal cannula. No active complaints. Vital signs are stable. General: No acute distress. HEENT: Head exam is unremarkable. On nasal cannula. LUNGS: Breath sounds decreased. HEART: Rate and Rhythm are regular. ABDOMEN: Soft, obese. EXTREMITITES: 2+ edema. Objective - Vital Signs Vital signs: Vital Signs Temp 98.7 F 01/29/22 07:27 Pulse 73 01/29/22 07:27 Resp 18 01/29/22 07:27 BP 154/97 01/29/22 07:27 Pulse Ox 98 01/29/22 07:27 Intake & Output 01/28/22 01/29/22 01/29/22 18:59 06:59 18:59 Intake Total 750 240 Output Total 1900 2850 Balance -1150 -2610 Intake: IV 30 Furosemide 100 mg In 15 Sodium Chloride 0.9% 90 ml @ 10 MG/HR 10 mls/hr IV .Q10H [facility] Rx#: [id number] Sodium Chloride 0.9% 1, 15 000 ml @ 5 mls/hr IV . Q24H [facility] Rx#:[id number] Oral 720 240 Output: Urine 1900 2850 Other: Voiding Method Indwelling Catheter Indwelling Catheter - Labs CBC & Chem 7: 01/27/22 04:37 01/28/22 17:19 Labs: Abnormal Lab Results - Last 24 Hours (Table) 01/28/22 01/28/22 01/28/22 Range/Units 13:29 16:19 20:45 Potassium 3.4 L (3.5-5.1) mmol/L POC Glucose (mg/dL) 126 H 163 H (75-99) mg/dL 01/29/22 Range/Units 03:09 Potassium (3.5-5.1) mmol/L POC Glucose (mg/dL) 103 H (75-99) mg/dL Assessment and Plan Plan: Assessment: 1. Acute kidney injury secondary to ATN secondary to hypotension, cardiorenal syndrome. Renal function better. Creatinine 2.04 as of yesterday. Nonoliguric. No hydronephrosis noted on kidney ultrasound. 2. Chronic kidney disease stage 3b/IV with baseline creatinine near 2 likely due to nephrosclerosis and cardiorenal syndrome. Patient unsure if she is diabetic or not - A1c 5.2% this admission. Serologies in 2020 were negative except serum immunofixation showed possible IgG kappa. UPC 1.06 g - ?secondary FSGS due to obesity. 3. Volume overload. Improving with diuresis. 4. Acute on chronic diastolic CHF. 5. Hyperkalemia secondary to acute kidney injury and spironolactone. Resolved. Now hypokalemic from diuresis. Replaced. 6. Morbid obesity. 7. Anemia of chronic kidney disease. Iron deficiency noted. Status post IV iron. On Aranesp. 8. Hypotension due to underlying cardiac status. Cortisol level on the lower side. She received Solu-Medrol this admission. Resolved. Plan: Maintain IV Lasix 60 mg twice daily. Maintain metolazone. Maintain oral Cortef. No monoclonality noted on serum immunofixation. Serologies negative done in November 2020. Will consider kidney biopsy outpatient for definitive diagnosis of her underlying chronic kidney disease. Avoid nephrotoxins. Continue to monitor renal function and urine output. Patient will need to follow-up with endocrine outpatient for further workup for adrenal insufficiency. Morning labs pending.
[2022-01-29 11:16] LABS: Glucose,Whole Blood 106 mg/dL (75-99)
--- NOTE | 2022-01-29 12:02 | P.PN ---
Subjective Progress Note Date: 01/29/22 HISTORY OF PRESENT ILLNESS: 01/23/2022 Patient examined this morning at the bedside. Patient denies chest pain or pressure. She denies shortness of breath. Patient's blood pressure is on the lower side this morning with a systolic in the 80s and 90s. Per nursing, patient has had 40 mL of urine output. Patient's creatinine has increased to 2.70. 01/29/2022 Patient examined this morning at the bedside. Patient denies chest pain or pressure. She denies shortness of breath. She remains on IV Lasix per nephrology. Vital signs are stable. PHYSICAL EXAM: VITAL SIGNS: Reviewed. GENERAL: Well-developed in no acute distress. NECK: Supple. No JVD or thyromegaly LUNGS: Respirations even and unlabored. Lungs diminished to auscultation bilaterally. HEART: Regular rate and rhythm. S1 and S2 heard. EXTREMITIES: Normal range of motion. No clubbing or cyanosis. Peripheral pulses intact. No lower extremity edema ASSESSMENT: Uncontrolled hypertension on admission Hypotension, resolved Acute on chronic kidney disease CHF with pEF, intermediate or borderline, 45-50% Hyperlipidemia PLAN: Continue to monitor blood pressure Continue current cardiac medications Continue IV diuresis per nephrology We will follow on an as-needed basis. Please call with questions or concerns. Nurse practitioner note has been reviewed by physician. Signing provider agrees with the documented findings, assessment, and plan of care. Objective - Vital Signs Vital signs: Vital Signs Temp 98.7 F 01/29/22 07:27 Pulse 73 01/29/22 07:27 Resp 18 01/29/22 07:27 BP 154/97 01/29/22 07:27 Pulse Ox 98 01/29/22 07:27 Intake & Output 01/28/22 01/29/22 01/29/22 18:59 06:59 18:59 Intake Total 750 240 Output Total 1900 2850 Balance -1150 -2610 Intake: IV 30 Furosemide 100 mg In 15 Sodium Chloride 0.9% 90 ml @ 10 MG/HR 10 mls/hr IV .Q10H [facility] Rx#: [id number] Sodium Chloride 0.9% 1, 15 000 ml @ 5 mls/hr IV . Q24H [facility] Rx#:[id number] Oral 720 240 Output: Urine 1900 2850 Other: Voiding Method Indwelling Catheter Indwelling Catheter - Labs CBC & Chem 7: 01/27/22 04:37 01/28/22 17:19 Labs: Abnormal Lab Results - Last 24 Hours (Table) 01/28/22 01/28/22 01/28/22 Range/Units 13:29 16:19 20:45 Potassium 3.4 L (3.5-5.1) mmol/L POC Glucose (mg/dL) 126 H 163 H (75-99) mg/dL 01/29/22 01/29/22 Range/Units 03:09 11:14 Potassium (3.5-5.1) mmol/L POC Glucose (mg/dL) 103 H 106 H (75-99) mg/dL
[2022-01-29 12:43] LABS: ALT 9 U/L (4-34); AST 18 U/L (14-36); African American GFR (CKD) 36 (>60 ml/min/1.73 sqM); Albumin 3.2 g/dL (3.5-5.0); Albumin/Globulin Ratio 0.9; Alkaline Phosphatase 51 U/L (38-126); Anion Gap 7 mmol/L; Blood Urea Nitrogen 76 mg/dL (7-17); Calcium 9.3 mg/dL (8.4-10.2); Carbon Dioxide 35 mmol/L (22-30); Chloride 98 mmol/L (98-107); Globulin 3.6 g/dL; Glucose 102 mg/dL (74-99); Magnesium 1.7 mg/dL (1.6-2.3); Non-African American GFR(CKD) 31 (>60 ml/min/1.73 sqM); Potassium 3.8 mmol/L (3.5-5.1); Sodium 140 mmol/L (137-145); Total Bilirubin 0.5 mg/dL (0.2-1.3); Total Protein 6.8 g/dL (6.3-8.2)
[2022-01-29] MEDS ORDERED: MAGNESIUM SULFATE-D5W PMX 1 GM in DEXTROSE/WATER 1 100ML.BAG IVPB ONE (13:20)
[2022-01-29] MEDS ORDERED: POTASSIUM CHLORIDE ER 20 MEQ TAB.ER PO STA (13:20)
--- NOTE | 2022-01-29 14:03 | P.PN ---
Subjective Progress Note Date: 01/29/22 Principal diagnosis: Shortness of breath On 01/29/2022 patient seen in follow-up on medical surgical floor. Is awake and alert, in no acute distress, she is currently at 3 L of oxygen, she is off BiPAP support which she does wear at bedtime FiO2 40%, breathing comfortably, denies any chest pain, vital signs have been stable, she remains on IV Lasix to 60 mg every 12 hours, and she is A- 7770 mL net fluid balance over the last 24 hours. She remains on oral Cortef 5 mg twice a day. She is currently not on any maintenance IV fluids. In addition she continues on Zaroxolyn 5 mg twice daily, she is breathing comfortably, reports no acute events overnight, she was transferred out of the intensive care unit over the weekend. His labs show sodium of 140, potassium is 3.8, CO2 is 35, B1 is 76, creatinine is 1.88, renal function is improving. Lower extremity edema although persistent but is improved compared to previous physical exam. Patient is tolerating oral intake, no nausea vomiting or diarrhea. Objective - Vital Signs Vital signs: Vital Signs Temp 98.7 F 01/29/22 07:27 Pulse 73 01/29/22 07:27 Resp 18 01/29/22 07:27 BP 154/97 01/29/22 07:27 Pulse Ox 98 01/29/22 07:27 Intake & Output 01/28/22 01/29/22 01/29/22 18:59 06:59 18:59 Intake Total 750 240 Output Total 1900 2850 Balance -1150 -2610 Intake: IV 30 Furosemide 100 mg In 15 Sodium Chloride 0.9% 90 ml @ 10 MG/HR 10 mls/hr IV .Q10H [facility] Rx#: [id number] Sodium Chloride 0.9% 1, 15 000 ml @ 5 mls/hr IV . Q24H [facility] Rx#:[id number] Oral 720 240 Output: Urine 1900 2850 Other: Voiding Method Indwelling Catheter Indwelling Catheter - Exam GENERAL EXAM: Alert, very pleasant, 46-year-old morbidly obese -[place] female resting comfortably in the large specialty bed on 3 L of oxygen, breathing comfortably, comfortable in no apparent distress. HEAD: Normocephalic/atraumatic. EYES: Normal reaction of pupils, equal size. Conjunctiva pink, sclera white. NOSE: Clear with pink turbinates. THROAT: No erythema or exudates. NECK: No masses, no JVD, no thyroid enlargement, no adenopathy. CHEST: No chest wall deformity. Symmetrical expansion. LUNGS: Equal air entry with no crackles, wheeze, rhonchi or dullness. CVS: Regular rate and rhythm, normal S1 and S2, no gallops, no murmurs, no rubs ABDOMEN: Soft, nontender. No hepatosplenomegaly, normal bowel sounds, no guarding or rigidity. EXTREMITIES: No clubbing, 2+ to 3+ lower extremity edema, no cyanosis, 2+ pulses and upper and lower extremities. MUSCULOSKELETAL: Muscle strength and tone normal. SPINE: No scoliosis or deformity SKIN: No rashes CENTRAL NERVOUS SYSTEM: Alert and oriented -3. No focal deficits, tone is normal in all 4 extremities. PSYCHIATRIC: Alert and oriented -3. Appropriate affect. Intact judgment and insight. - Labs CBC & Chem 7: 01/27/22 04:37 01/29/22 12:20 Labs: Abnormal Lab Results - Last 24 Hours (Table) 01/28/22 01/28/22 01/28/22 Range/Units 13:29 16:19 20:45 Potassium 3.4 L (3.5-5.1) mmol/L Carbon Dioxide (22-30) mmol/L BUN (7-17) mg/dL Creatinine (0.52-1.04) mg/dL Glucose (74-99) mg/dL POC Glucose (mg/dL) 126 H 163 H (75-99) mg/dL Albumin (3.5-5.0) g/dL 01/29/22 01/29/22 01/29/22 Range/Units 03:09 11:14 12:20 Potassium (3.5-5.1) mmol/L Carbon Dioxide 35 H (22-30) mmol/L BUN 76 H (7-17) mg/dL Creatinine 1.88 H (0.52-1.04) mg/dL Glucose 102 H (74-99) mg/dL POC Glucose (mg/dL) 103 H 106 H (75-99) mg/dL Albumin 3.2 L (3.5-5.0) g/dL Assessment and Plan Plan: Assessment: #1. Acute on chronic hypoxic respiratory failure related to acute exacerbation of CHF with diastolic dysfunction, and patient has right-sided heart failure. Patient is improved, she is requiring BiPAP support at bedtime and on as-needed basis. Improving with diuretics #2. Significant fluid overload and third spacing improved with Lasix, dopamine and Zaroxolyn #3. Acute mental status changes related to acute exacerbation of CHF, improved #4. Previous history of upper GI bleeding #5. Anemia of chronic disease #6. History of CHF, LV function is preserved, RV is quite dilated #7. History of benign essential hypertension #8. Morbid obesity #9. History DVT #10. History of generalized anxiety disorder #11. History of obstructive sleep apnea patient has a CPAP on an outpatient basis with a pressure of 16 cm of water #12. Chronic kidney disease stage IIIB at baseline #13. Non-anion gap metabolic acidosis #14. History of SVT #15. Staph epidermidis in the blood culture likely contaminant #16. Suspect urinary tract infection with negative urine culture, treated with Rocephin Plan: Patient is breathing quite comfortably Continue weaning FiO2 to keep O2 sat saturation sat 88-90% BiPAP support at bedtime and as needed while inpatient, Patient can resume her CPAP from home after discharge as 16 cm of water Diuretics per nephrology and cardiology Renal function is improving, she's had no acute events overnight She could be considered for discharge from pulmonary perspective once cleared by cardiology and nephrology Patient most likely will need placement, however she states she is out of her days paid by her insurance for subacute rehab We will defer to social work for the arrangements I have personally seen and examined the patient, performed the documentation and the assessment and plan as written. Number of minutes spent on the visit: [10] Time with Patient: Less than 30
[2022-01-29 16:14] LABS: Glucose,Whole Blood 135 mg/dL (75-99)
[2022-01-29] MEDS: SODIUM CHLORIDE 0.9% 1,000 ML IV SCH (16:14)
[2022-01-29 18:30] LABS: HCT 32.3 % (37.2-46.3); HGB 9.2 g/dL (12.0-15.0); MCH 24.1 pg (27.0-32.0); MCHC 28.5 g/dL (32.0-37.0); MCV 84.8 fL (80.0-97.0); NRBC Per 100 WBC 0 /100 WBCS (0.0-0.0); Platelet Count 211 X 10*3/uL (140-440); RBC 3.81 X 10*6/uL (4.10-5.20); RDW 20.8 % (11.5-14.5); WBC 14.25 X 10*3/uL (4.50-10.00)
[2022-01-29 19:03] LABS: Glucose,Whole Blood 185 mg/dL (75-99)
[2022-01-30 02:32] LABS: Glucose,Whole Blood 115 mg/dL (75-99)
[2022-01-30 06:52] LABS: Glucose,Whole Blood 106 mg/dL (75-99)
[2022-01-30] MEDS: INSULIN ASPART (NovoLOG) 100 UNIT/ML VIAL SQ SCH ×3 (07:23→16:36)
[2022-01-30] MEDS: FUROSEMIDE 10 MG/ML 10 ML VIAL IV SCH (07:29)
[2022-01-30] MEDS: METOPROLOL TARTRATE 50 MG TAB PO SCH (07:30)
[2022-01-30] MEDS: HYDROCORTISONE 10 MG TAB PO SCH (07:30)
[2022-01-30] MEDS: metOLazone 5 MG TAB PO SCH (07:30)
[2022-01-30] MEDS: BACLOFEN 10 MG TAB PO SCH (07:30)
[2022-01-30] MEDS: HEPARIN SODIUM,PORCINE/PF 5,000 UNIT/0.5 ML SYRINGE SQ SCH (07:31)
[2022-01-30] MEDS: cloNIDine HCL 0.1 MG TAB PO SCH ×2 (07:31→16:33)
[2022-01-30] MEDS: ATORVASTATIN 40 MG TAB PO SCH (07:31)
[2022-01-30] MEDS: PANTOPRAZOLE 40 MG/10 ML VIAL IVP SCH (07:31)
[2022-01-30 09:36] LABS: Anion Gap 10.3 mmol/L (10.00-18.00); BUN/Creat Ratio 41.81 Ratio (12.00-20.00); Blood Urea Nitrogen 66.9 mg/dL (9.0-27.0); Calcium 9.6 mg/dL (8.7-10.3); Carbon Dioxide 32.7 mmol/L (20.0-27.5); Potassium 4.1 mmol/L (3.5-5.5)
--- NOTE | 2022-01-30 10:58 | P.PN ---
Subjective Patient is seen in follow-up for acute kidney injury on chronic kidney disease. Renal function has been improving. Nonoliguric. On IV Lasix and metolazone. Dopamine discontinued. Denies chest pain or shortness of breath. On 3 L nasal cannula. Wants to drink more fluids. Vital signs are stable. General: No acute distress. HEENT: Head exam is unremarkable. On nasal cannula. LUNGS: Breath sounds decreased. HEART: Rate and Rhythm are regular. ABDOMEN: Soft, obese. EXTREMITITES: 1+ edema. Objective - Vital Signs Vital signs: Vital Signs Temp 98.2 F 01/30/22 06:59 Pulse 76 01/30/22 06:59 Resp 17 01/30/22 06:59 BP 155/90 01/30/22 06:59 Pulse Ox 98 01/30/22 06:59 Intake & Output 01/29/22 01/30/22 01/30/22 18:59 06:59 18:59 Intake Total 1800 Output Total 2300 3450 Balance -2300 -1650 Intake: Oral 1800 Output: Urine 2300 3450 Other: Voiding Method Indwelling Catheter Indwelling Catheter # Bowel Movements 1 - Labs CBC & Chem 7: 01/29/22 12:20 01/30/22 05:20 Labs: Abnormal Lab Results - Last 24 Hours (Table) 01/29/22 01/29/22 01/29/22 Range/Units 11:14 12:20 12:20 WBC 14.25 H (4.50-10.00) X 10*3/uL RBC 3.81 L (4.10-5.20) X 10*6/uL Hgb 9.2 L (12.0-15.0) g/dL Hct 32.3 L (37.2-46.3) % MCH 24.1 L (27.0-32.0) pg MCHC 28.5 L (32.0-37.0) g/dL RDW 20.8 H (11.5-14.5) % Carbon Dioxide 35 H (22-30) mmol/L BUN 76 H (7-17) mg/dL Creatinine 1.88 H (0.52-1.04) mg/dL Est GFR (CKD-EPI)AfAm (60.0-200.0) Est GFR (CKD-EPI)NonAf (60.0-200.0) BUN/Creatinine Ratio (12.00-20.00) Ratio Glucose 102 H (74-99) mg/dL POC Glucose (mg/dL) 106 H (75-99) mg/dL Albumin 3.2 L (3.5-5.0) g/dL 01/29/22 01/29/22 01/30/22 Range/Units 16:09 19:02 02:30 WBC (4.50-10.00) X 10*3/uL RBC (4.10-5.20) X 10*6/uL Hgb (12.0-15.0) g/dL Hct (37.2-46.3) % MCH (27.0-32.0) pg MCHC (32.0-37.0) g/dL RDW (11.5-14.5) % Carbon Dioxide (22-30) mmol/L BUN (7-17) mg/dL Creatinine (0.52-1.04) mg/dL Est GFR (CKD-EPI)AfAm (60.0-200.0) Est GFR (CKD-EPI)NonAf (60.0-200.0) BUN/Creatinine Ratio (12.00-20.00) Ratio Glucose (74-99) mg/dL POC Glucose (mg/dL) 135 H 185 H 115 H (75-99) mg/dL Albumin (3.5-5.0) g/dL 01/30/22 01/30/22 Range/Units 05:20 06:49 WBC (4.50-10.00) X 10*3/uL RBC (4.10-5.20) X 10*6/uL Hgb (12.0-15.0) g/dL Hct (37.2-46.3) % MCH (27.0-32.0) pg MCHC (32.0-37.0) g/dL RDW (11.5-14.5) % Carbon Dioxide 32.7 H (22-30) mmol/L BUN 66.9 H (7-17) mg/dL Creatinine 1.6 H (0.52-1.04) mg/dL Est GFR (CKD-EPI)AfAm 44.0 L (60.0-200.0) Est GFR (CKD-EPI)NonAf 38.0 L (60.0-200.0) BUN/Creatinine Ratio 41.81 H (12.00-20.00) Ratio Glucose (74-99) mg/dL POC Glucose (mg/dL) 106 H (75-99) mg/dL Albumin (3.5-5.0) g/dL Assessment and Plan Plan: Assessment: 1. Acute kidney injury secondary to ATN secondary to hypotension, cardiorenal syndrome. Renal function better. Creatinine 1.6 today. Nonoliguric. No hydronephrosis noted on kidney ultrasound. 2. Chronic kidney disease stage 3b/IV with baseline creatinine near 2 likely due to nephrosclerosis and cardiorenal syndrome. Patient unsure if she is diabetic or not - A1c 5.2% this admission. Serologies in 2020 were negative except serum immunofixation showed possible IgG kappa. UPC 1.06 g - ?secondary FSGS due to obesity. 3. Volume overload. Improving with diuresis. 4. Acute on chronic diastolic CHF. 5. Hyperkalemia secondary to acute kidney injury and spironolactone. Resolved. Then became hypokalemic from diuresis. Replaced. 6. Morbid obesity. 7. Anemia of chronic kidney disease. Iron deficiency noted. Status post IV iron. On Aranesp. 8. Hypotension due to underlying cardiac status. Cortisol level on the lower side. She received Solu-Medrol this admission. Resolved. Plan: Maintain IV Lasix 60 mg twice daily. Maintain metolazone. Maintain oral Cortef. Low-salt diet. Liberalize fluid restriction to 2 L per day. No monoclonality noted on serum immunofixation. Serologies negative done in November 2020. Will consider kidney biopsy outpatient for definitive diagnosis of her underlying chronic kidney disease. Avoid nephrotoxins. Continue to monitor renal function and urine output. Patient will need to follow-up with endocrine outpatient for further workup for adrenal insufficiency.
[2022-01-30 11:21] LABS: Glucose,Whole Blood 113 mg/dL (75-99)
--- NOTE | 2022-01-30 12:14 | P.PN ---
Subjective Progress Note Date: 01/30/22 Principal diagnosis: Shortness of breath On 01/29/2022 patient seen in follow-up on medical surgical floor. Is awake and alert, in no acute distress, she is currently at 3 L of oxygen, she is off BiPAP support which she does wear at bedtime FiO2 40%, breathing comfortably, denies any chest pain, vital signs have been stable, she remains on IV Lasix to 60 mg every 12 hours, and she is A- 7770 mL net fluid balance over the last 24 hours. She remains on oral Cortef 5 mg twice a day. She is currently not on any maintenance IV fluids. In addition she continues on Zaroxolyn 5 mg twice daily, she is breathing comfortably, reports no acute events overnight, she was transferred out of the intensive care unit over the weekend. His labs show sodium of 140, potassium is 3.8, CO2 is 35, B1 is 76, creatinine is 1.88, renal function is improving. Lower extremity edema although persistent but is improved compared to previous physical exam. Patient is tolerating oral intake, no nausea vomiting or diarrhea. On 01/30/2022 patient seen in follow-up on medical surgical floor. She is resting comfortably in bed, breathing comfortably, she is on 3 L of oxygen a pulse ox of 98%, she has been wearing BiPAP support at bedtime with FiO2 of 40%, tolerated very well, afebrile, hemodynamically she is been stable, no worsening dyspnea, she remains on IV Lasix 60 mg twice a day and Zaroxolyn 5 mg twice daily, she continues to maintain negative net fluid balance of 3.7 liters over the last 24 hours, generalized anasarca has improved, including edema involving the bilateral lower extremities and abdominal wall. Colon catheter remains in place for accurate intake and output. Patient is generally weak, she did get up out of bed yesterday with physical therapy, she was able to stand unassisted just momentarily, and was assisted back to bed. Today's labs have been reviewed , sodium is 143, potassium is 4.1, chloride is 100, BUN is 66.9, creatinine is 1.6, renal function is improving. Objective - Vital Signs Vital signs: Vital Signs Temp 98.2 F 01/30/22 06:59 Pulse 76 01/30/22 06:59 Resp 17 01/30/22 06:59 BP 155/90 01/30/22 06:59 Pulse Ox 98 01/30/22 06:59 Intake & Output 01/29/22 01/30/22 01/30/22 18:59 06:59 18:59 Intake Total 1800 Output Total 2300 3450 Balance -2300 -1650 Intake: Oral 1800 Output: Urine 2300 3450 Other: Voiding Method Indwelling Catheter Indwelling Catheter # Bowel Movements 1 - Exam GENERAL EXAM: Alert, very pleasant, 46-year-old morbidly obese -Greek female resting comfortably in the large specialty bed on 3 L of oxygen, breathing comfortably, comfortable in no apparent distress. HEAD: Normocephalic/atraumatic. EYES: Normal reaction of pupils, equal size. Conjunctiva pink, sclera white. NOSE: Clear with pink turbinates. THROAT: No erythema or exudates. NECK: No masses, no JVD, no thyroid enlargement, no adenopathy. CHEST: No chest wall deformity. Symmetrical expansion. LUNGS: Equal air entry with no crackles, wheeze, rhonchi or dullness. CVS: Regular rate and rhythm, normal S1 and S2, no gallops, no murmurs, no rubs ABDOMEN: Soft, nontender. No hepatosplenomegaly, normal bowel sounds, no guarding or rigidity. EXTREMITIES: No clubbing, 2+ to 3+ lower extremity edema, no cyanosis, 2+ pulses and upper and lower extremities. MUSCULOSKELETAL: Muscle strength and tone normal. SPINE: No scoliosis or deformity SKIN: No rashes CENTRAL NERVOUS SYSTEM: Alert and oriented -3. No focal deficits, tone is normal in all 4 extremities. PSYCHIATRIC: Alert and oriented -3. Appropriate affect. Intact judgment and insight. - Labs CBC & Chem 7: 01/29/22 12:20 01/30/22 05:20 Labs: Abnormal Lab Results - Last 24 Hours (Table) 01/29/22 01/29/22 01/29/22 Range/Units 12:20 12:20 16:09 WBC 14.25 H (4.50-10.00) X 10*3/uL RBC 3.81 L (4.10-5.20) X 10*6/uL Hgb 9.2 L (12.0-15.0) g/dL Hct 32.3 L (37.2-46.3) % MCH 24.1 L (27.0-32.0) pg MCHC 28.5 L (32.0-37.0) g/dL RDW 20.8 H (11.5-14.5) % Carbon Dioxide 35 H (22-30) mmol/L BUN 76 H (7-17) mg/dL Creatinine 1.88 H (0.52-1.04) mg/dL Est GFR (CKD-EPI)AfAm (60.0-200.0) Est GFR (CKD-EPI)NonAf (60.0-200.0) BUN/Creatinine Ratio (12.00-20.00) Ratio Glucose 102 H (74-99) mg/dL POC Glucose (mg/dL) 135 H (75-99) mg/dL Albumin 3.2 L (3.5-5.0) g/dL 01/29/22 01/30/22 01/30/22 Range/Units 19:02 02:30 05:20 WBC (4.50-10.00) X 10*3/uL RBC (4.10-5.20) X 10*6/uL Hgb (12.0-15.0) g/dL Hct (37.2-46.3) % MCH (27.0-32.0) pg MCHC (32.0-37.0) g/dL RDW (11.5-14.5) % Carbon Dioxide 32.7 H (22-30) mmol/L BUN 66.9 H (7-17) mg/dL Creatinine 1.6 H (0.52-1.04) mg/dL Est GFR (CKD-EPI)AfAm 44.0 L (60.0-200.0) Est GFR (CKD-EPI)NonAf 38.0 L (60.0-200.0) BUN/Creatinine Ratio 41.81 H (12.00-20.00) Ratio Glucose (74-99) mg/dL POC Glucose (mg/dL) 185 H 115 H (75-99) mg/dL Albumin (3.5-5.0) g/dL 01/30/22 01/30/22 Range/Units 06:49 11:18 WBC (4.50-10.00) X 10*3/uL RBC (4.10-5.20) X 10*6/uL Hgb (12.0-15.0) g/dL Hct (37.2-46.3) % MCH (27.0-32.0) pg MCHC (32.0-37.0) g/dL RDW (11.5-14.5) % Carbon Dioxide (22-30) mmol/L BUN (7-17) mg/dL Creatinine (0.52-1.04) mg/dL Est GFR (CKD-EPI)AfAm (60.0-200.0) Est GFR (CKD-EPI)NonAf (60.0-200.0) BUN/Creatinine Ratio (12.00-20.00) Ratio Glucose (74-99) mg/dL POC Glucose (mg/dL) 106 H 113 H (75-99) mg/dL Albumin (3.5-5.0) g/dL Assessment and Plan Plan: Assessment: #1. Acute on chronic hypoxic respiratory failure related to acute exacerbation of CHF with diastolic dysfunction, and patient has right-sided heart failure. Patient is improved, she is requiring BiPAP support at bedtime and on as-needed basis. Improving with diuretics #2. Significant fluid overload and third spacing improved with Lasix, dopamine and Zaroxolyn #3. Acute mental status changes related to acute exacerbation of CHF, improved #4. Previous history of upper GI bleeding #5. Anemia of chronic disease #6. History of CHF, LV function is preserved, RV is quite dilated #7. History of benign essential hypertension #8. Morbid obesity #9. History DVT #10. History of generalized anxiety disorder #11. History of obstructive sleep apnea patient has a CPAP on an outpatient basis with a pressure of 16 cm of water #12. Chronic kidney disease stage IIIB at baseline #13. Non-anion gap metabolic acidosis #14. History of SVT #15. Staph epidermidis in the blood culture likely contaminant #16. Suspect urinary tract infection with negative urine culture, treated with Rocephin Plan: No acute events overnight Patient is maintaining negative fluid balance Continue diuretics per nephrology and cardiology Renal function is improving, generalized edema is improving Physical therapy is on the case, however patient requires extensive assistance with mobility Will likely need subacute rehab placement Could be considered for discharge to [facility] once the arrangements are completed from pulmonary perspective She will continue on her CPAP at bedtime with FiO2 to maintain O2 saturation 88% and above at the ECF at bedtime at 16 cm of water I have personally seen and examined the patient, performed the documentation and the assessment and plan as written. Number of minutes spent on the visit: [10] Time with Patient: Less than 30
[2022-01-30 14:49] VITALS: BP 139/92; PULSE 85; RESP 18; TEMP 98.1
[2022-01-30 16:21] LABS: Glucose,Whole Blood 106 mg/dL (75-99)
[2022-01-30] MEDS: SODIUM CHLORIDE 0.9% 1,000 ML IV SCH (16:36)
--- NOTE | 2022-01-30 17:43 | PN ---
PROGRESS NOTE DATE OF SERVICE: 01/28/2022 CHIEF COMPLAINT: Acute congestive heart failure and renal failure. HISTORY OF PRESENT ILLNESS: This lady seems to be doing slightly better. Her GFR is slowly creeping down. Blood pressure is occasionally high at times, but she is making urine and is less short of breath. REVIEW OF SYSTEMS: She is awake and alert and has no complaints. PHYSICAL EXAMINATION: Breath sounds are heard bilaterally. Cardiac exam is normal. The abdomen is protuberant. There is no tenderness. Extremities are unchanged. IMPRESSION: 1. Acute congestive heart failure. 2. Chronic congestive heart failure. 3. Cardiomyopathy. 4. Acute on chronic renal failure. 5. Hypertension. 6. Morbid obesity. PLAN: Slowly progress activity, and she might be able to leave ICU in the next several days, and then we will work on discharge planning. MORENO / BRADLEY: [id number] /
--- NOTE | 2022-01-30 17:51 | PN ---
PROGRESS NOTE DATE OF SERVICE: 01/29/2022 CHIEF COMPLAINT: Chronic heart and kidney failure. HISTORY OF PRESENT ILLNESS: This lady is doing better. She has moved out of the unit. Discharge planning is in process. REVIEW OF SYSTEMS: She is feeling better and she denies any chest pain, shortness of breath, nausea, etc. PHYSICAL EXAMINATION: She has breath sounds bilaterally. Cardiac exam is normal and the abdomen is protuberant and soft. Extremities are unchanged. IMPRESSION: 1. Acute congestive heart failure. 2. Chronic systolic and diastolic heart failure. 3. Cardiomyopathy. 4. Chronic renal failure. 5. Prerenal azotemia. 6. Morbid obesity. PLAN: Progress activity and if she continues, discharge soon. MMODL / IJN: [id number] /
--- NOTE | 2022-01-30 19:39 | DS ---
DISCHARGE SUMMARY CHIEF COMPLAINT: Shortness of breath. HISTORY OF PRESENT ILLNESS AND PHYSICAL EXAMINATION: Details of this lady's history and physical can be found in the initial workup. LABORATORY STUDIES: While she was in the hospital she had laboratory studies, details of which can be found in the laboratory section of her chart. COURSE IN THE HOSPITAL: After admission she was placed on bedrest, started on intravenous fluids and given acute ICU management due to her heart failure and renal failure. BUN and creatinine were elevated significantly and she was seen and followed by Nephrology and Cardiology. She had continuous good cardiac output, but her renal function was significantly abnormal and only very slowly improved. As it did, her breathing improved and she started to stabilize. Initially it was thought that she would probably have to go back to a long-term care facility, but she improved enough that it was felt safe for her to go home, and she will be discharged on January 30. She will follow up with us, Cardiology and Nephrology, and she will be set up with [facility]. FINAL DIAGNOSIS: 1. Acute and chronic diastolic and systolic heart failure. 2. Cardiomyopathy. 3. Uncontrolled diabetes mellitus. 4. Stage 4 chronic kidney disease. 5. Morbid obesity. OPERATIONS: None. CONSULTATIONS: 1. Nephrology. 2. Cardiology. She is improved. MMODL / IJN: [id number] /
[2022-01-31] MEDS ORDERED: TORSEMIDE 20 MG TAB PO SCH (09:00)
[2022-02-01] MEDS ORDERED: metOLazone 2.5 MG TAB PO SCH (09:00)
== END 2022-01-30 19:57 | disposition home health service (06) | DRG 291 ==
LOC: EC 02:44 → 3SCARD 07:13 → 2SICU 01-23 12:44 → 4SSUR 01-28 17:12
PROVIDERS: ADMIT Family Medicine; ATTEND Family Medicine
PROC: 02HV33Z Insertion of Infusion Device into Superior Vena Cava, Percutaneous Approach (ICD-10-PCS; principal; 2022-01-24 08:30)
DX: I13.0 Hypertensive heart and chronic kidney disease with heart failure and stage 1 through stage 4 chronic kidney disease, or unspecified chronic kidney disease (principal); I50.43 Acute on chronic combined systolic (congestive) and diastolic (congestive) heart failure; J96.21 Acute and chronic respiratory failure with hypoxia; J96.22 Acute and chronic respiratory failure with hypercapnia; N17.0 Acute kidney failure with tubular necrosis; N18.4 Chronic kidney disease, stage 4 (severe); E66.2 Morbid (severe) obesity with alveolar hypoventilation; E87.2 Acidosis; I47.1 Supraventricular tachycardia; Z68.43 Body mass index [BMI] 50.0-59.9, adult; I42.9 Cardiomyopathy, unspecified; R62.7 Adult failure to thrive; Z86.16 Personal history of COVID-19; D63.1 Anemia in chronic kidney disease; E11.22 Type 2 diabetes mellitus with diabetic chronic kidney disease; Z20.822 Contact with and (suspected) exposure to COVID-19; E11.65 Type 2 diabetes mellitus with hyperglycemia; E61.1 Iron deficiency; E78.5 Hyperlipidemia, unspecified; E87.5 Hyperkalemia; E87.6 Hypokalemia; F41.1 Generalized anxiety disorder; I25.10 Atherosclerotic heart disease of native coronary artery without angina pectoris; I50.82 Biventricular heart failure; J44.9 Chronic obstructive pulmonary disease, unspecified; J98.4 Other disorders of lung; M17.0 Bilateral primary osteoarthritis of knee; Z79.899 Other long term (current) drug therapy; Z82.49 Family history of ischemic heart disease and other diseases of the circulatory system; Z86.718 Personal history of other venous thrombosis and embolism; I95.9 Hypotension, unspecified
CPT/HCPCS: 36415; 36573; 36600; 71045; 73502; 76770; 80048; 80053; 80074; 80306; 81001; 82533; 82565; 82570; 82728; 82803; 82805; 83036; 83540; 83550; 83605; 83735; 83880; 83883; 84132; 84156; 84484; 85025; 85027; 85379; 85610; 85730; 86334; 86704; 86706; 87040; 87077; 87086; 87186; 87635; 93005; 93308; 94640; 94660; 94760; 96365; 96372; 96375; 99285

== ENCOUNTER 2022-07-03 14:58 | Inpatient (IN) | payer OTHER ==
--- NOTE | 2022-07-03 16:01 | ED ---
General Adult HPI - General Chief complaint: Shortness of Breath Stated complaint: SOB Time Seen by Provider: 07/03/22 15:00 Source: patient, EMS, RN notes reviewed, old records reviewed Mode of arrival: EMS Limitations: no limitations - History of Present Illness Initial comments: This is a 47-year-old female presents to start with a past medical history significant for congestive heart. Patient comes in complaining of difficulty breathing that she states started today. Patient states she's noticed increased swelling to her legs. Patient denies any chest pain or palpitations. Patient denies any fever chills. Patient denies any abdominal pain. Patient denies lightheadedness or dizziness. Patient states she has no history of smoking she denies any history of COPD or asthma. - Related Data Home Medications Medication Instructions Recorded Confirmed Omeprazole 20 mg PO DAILY 11/05/17 01/21/22 minoxidiL 10 mg PO DAILY 11/05/17 01/21/22 cloNIDine HCL [Catapres] 0.3 mg PO TID 01/04/19 01/21/22 hydrALAZINE HCL [Apresoline] 100 mg PO TID 01/04/19 01/21/22 Atorvastatin [Lipitor] 40 mg PO DAILY 11/20/21 01/21/22 Baclofen [Lioresal] 10 mg PO DAILY 11/20/21 01/21/22 Metoprolol Tartrate [Lopressor] 100 mg PO BID 11/20/21 01/21/22 Previous Rx's Medication Instructions Recorded Darbepoetin Godfrey [Aranesp] 40 mcg SQ Q7D 90 Days #1 injection 01/30/22 Hydrocortisone [Cortef] 5 mg PO BID #60 tab 01/30/22 Torsemide [Demadex] 40 mg PO DAILY #100 tab 01/30/22 metOLazone [Zaroxolyn] 2.5 mg PO Q48H #100 tab 01/30/22 Allergies Allergy/AdvReac Type Severity Reaction Status Date / Time No Known Allergies Allergy Verified 07/03/22 17:38 Review of Systems ROS Statement: Those systems with pertinent positive or pertinent negative responses have been documented in the HPI. ROS Other: All systems not noted in ROS Statement are negative. Past Medical History Past Medical History: Coronary Artery Disease (CAD), Chest Pain / Angina, Heart Failure, Hypertension, Osteoarthritis (OA), Renal Disease, Sleep Apnea/CPAP /BIPAP Additional Past Medical History / Comment(s): SVT, sinus pauses, anemia, chronic kidney disease, blood clots-pt stated took xarelto for awhile, arthritis bilateral knees, anemia, constipation, lymphedema History of Any Multi-Drug Resistant Organisms: VRE Date of last positivie culture/infection: 05/03/20 MDRO Source:: VRE URINE Past Surgical History: Section, Hernia Repair Additional Past Surgical History / Comment(s): adominal hernia repair with mesh, cysts removed from stomach Past Anesthesia/Blood Transfusion Reactions: No Reported Reaction Additional Past Anesthesia/Blood Transfusion Reaction / Comment(s): Pt has received blood in the past without reaction. Past Psychological History: Anxiety Smoking Status: Never smoker Past Alcohol Use History: None Reported Past Drug Use History: None Reported - Past Family History Father Family Medical History: Congestive Heart Failure (CHF) Additional Family Medical History / Comment(s): Father from CHF. Mother Family Medical History: Cancer, Hypertension, Sleep Apnea/CPAP/BIPAP Additional Family Medical History / Comment(s): Mother has had cancer removed from ear/head. General Exam - General Exam Comments Initial Comments: GENERAL: Patient is well-developed and well-nourished. Patient is nontoxic and well-hydrated and is in mild distress. ENT: Neck is soft and supple. No significant lymphadenopathy is noted. Oropharynx is clear. Moist mucous membranes. Neck has full range of motion without eliciting any pain. EYES: The sclera were anicteric and conjunctiva were pink and moist. Extraocular movements were intact and pupils were equal round and reactive to light. Eyelids were unremarkable. PULMONARY: Diminished breath sounds. CARDIOVASCULAR: There is a regular rate and rhythm without any murmurs gallops or rubs. ABDOMEN: Soft and nontender with normal bowel sounds. SKIN: Skin is clear with no lesions or rashes and otherwise unremarkable. NEUROLOGIC: Patient is alert and oriented x3. Cranial nerves II through XII are grossly intact. Motor and sensory are also intact. Normal speech, volume and content. Symmetrical smile. MUSCULOSKELETAL: Normal extremities with adequate strength and full range of motion. LYMPHATICS: No significant lymphadenopathy is noted PSYCHIATRIC: Normal psychiatric evaluation. Limitations: no limitations Course Vital Signs 07/03/22 15:02 Temperature 97.5 F L Pulse Rate 94 Respiratory 22 Rate Blood Pressure 151/94 Medical Decision Making - Medical Decision Making EKG shows sinus tachycardia at 100 bpm TN interval 292 QRS is 92 QT interval 355 QTC is 412 per patient's EKG shows no ST segment elevation or depression. EKG is of poor quality. Chest x-ray shows pulmonary edema. Patient received Lasix in the emergency department. I spoke with Dr. Stanford he agreed to admit the patient admitted the patient I wrote admitting orders. - Lab Data Result diagrams: 07/03/22 16:20 07/03/22 16:20 Lab Results 07/03/22 07/03/22 07/03/22 Range/Units 16:20 16:20 16:20 WBC 11.7 H (3.8-10.6) k/uL RBC 5.28 (3.80-5.40) m/uL Hgb 10.4 L (11.4-16.0) gm/dL Hct 40.1 (34.0-46.0) % MCV 75.9 L (80.0-100.0) fL MCH 19.6 L (25.0-35.0) pg MCHC 25.9 L (31.0-37.0) g/dL RDW 20.8 H (11.5-15.5) % Plt Count 264 (150-450) k/uL MPV 10.9 Neutrophils % 91 % Lymphocytes % 4 % Monocytes % 3 % Eosinophils % 0 % Basophils % 0 % Neutrophils # 10.6 H (1.3-7.7) k/uL Lymphocytes # 0.5 L (1.0-4.8) k/uL Monocytes # 0.4 (0-1.0) k/uL Eosinophils # 0.0 (0-0.7) k/uL Basophils # 0.0 (0-0.2) k/uL Hypochromasia Marked Poikilocytosis Slight Anisocytosis Moderate Microcytosis Moderate PT 12.0 (9.0-12.0) sec INR 1.1 (<1.2) APTT 21.7 L (22.0-30.0) sec Sodium 144 (137-145) mmol/L Potassium 3.7 (3.5-5.1) mmol/L Chloride 109 H (98-107) mmol/L Carbon Dioxide 18 L (22-30) mmol/L Anion Gap 17 mmol/L BUN 28 H (7-17) mg/dL Creatinine 2.34 H (0.52-1.04) mg/dL Est GFR (CKD-EPI)AfAm 28 (>60 ml/min/1.73 sqM) Est GFR (CKD-EPI)NonAf 24 (>60 ml/min/1.73 sqM) Glucose 84 (74-99) mg/dL Plasma Lactic Acid Antony (0.7-2.0) mmol/L Calcium 9.3 (8.4-10.2) mg/dL Magnesium 1.8 (1.6-2.3) mg/dL Total Bilirubin 1.0 (0.2-1.3) mg/dL AST 29 (14-36) U/L ALT 20 (4-34) U/L Alkaline Phosphatase 66 (38-126) U/L Troponin I (0.000-0.034) ng/mL NT-Pro-B Natriuret Pep pg/mL Total Protein 7.3 (6.3-8.2) g/dL Albumin 3.5 (3.5-5.0) g/dL 07/03/22 07/03/22 07/03/22 Range/Units 16:20 16:20 16:20 WBC (3.8-10.6) k/uL RBC (3.80-5.40) m/uL Hgb (11.4-16.0) gm/dL Hct (34.0-46.0) % MCV (80.0-100.0) fL MCH (25.0-35.0) pg MCHC (31.0-37.0) g/dL RDW (11.5-15.5) % Plt Count (150-450) k/uL MPV Neutrophils % % Lymphocytes % % Monocytes % % Eosinophils % % Basophils % % Neutrophils # (1.3-7.7) k/uL Lymphocytes # (1.0-4.8) k/uL Monocytes # (0-1.0) k/uL Eosinophils # (0-0.7) k/uL Basophils # (0-0.2) k/uL Hypochromasia Poikilocytosis Anisocytosis Microcytosis PT (9.0-12.0) sec INR (<1.2) APTT (22.0-30.0) sec Sodium (137-145) mmol/L Potassium (3.5-5.1) mmol/L Chloride (98-107) mmol/L Carbon Dioxide (22-30) mmol/L Anion Gap mmol/L BUN (7-17) mg/dL Creatinine (0.52-1.04) mg/dL Est GFR (CKD-EPI)AfAm (>60 ml/min/1.73 sqM) Est GFR (CKD-EPI)NonAf (>60 ml/min/1.73 sqM) Glucose (74-99) mg/dL Plasma Lactic Acid Antony 1.9 (0.7-2.0) mmol/L Calcium (8.4-10.2) mg/dL Magnesium (1.6-2.3) mg/dL Total Bilirubin (0.2-1.3) mg/dL AST (14-36) U/L ALT (4-34) U/L Alkaline Phosphatase (38-126) U/L Troponin I 0.044 H* (0.000-0.034) ng/mL NT-Pro-B Natriuret Pep 47040 pg/mL Total Protein (6.3-8.2) g/dL Albumin (3.5-5.0) g/dL Disposition Clinical Impression: Acute pulmonary edema Disposition: ADMITTED IP TO THIS HOSP Referrals: Kevin Stanford MD [Primary Care Provider] - 1-2 days Time of Disposition: 17:40
[2022-07-03 16:44] LABS: Albumin 3.5 g/dL (3.5-5.0); Calcium 9.3 mg/dL (8.4-10.2); Magnesium 1.8 mg/dL (1.6-2.3); Potassium 3.7 mmol/L (3.5-5.1); Total Protein 7.3 g/dL (6.3-8.2)
[2022-07-03 16:47] LABS: Anisocytosis Moderate; Basophils % (A) 0 %; Eosinophils % (A) 0 %; HCT 40.1 % (34.0-46.0); HGB 10.4 gm/dL (11.4-16.0); Hypochromasia Marked; Lymphocytes # (A) 0.5 k/uL (1.0-4.8); Lymphocytes % (A) 4 %; MCH 19.6 pg (25.0-35.0); MCHC 25.9 g/dL (31.0-37.0); MCV 75.9 fL (80.0-100.0); Mean Platelet Volume 10.9; Microcytosis Moderate; Monocytes # (A) 0.4 k/uL (0-1.0); Monocytes % (A) 3 %; Neutrophils # (A) 10.6 k/uL (1.3-7.7); Neutrophils % (A) 91 %; Platelet Count 264 k/uL (150-450); Poikilocytosis Slight; RBC 5.28 m/uL (3.80-5.40); RDW 20.8 % (11.5-15.5); WBC 11.7 k/uL (3.8-10.6)
[2022-07-03 16:53] LABS: INR 1.1 (<1.2); Partial Thromboplastin Time 21.7 sec (22.0-30.0)
--- NOTE | 2022-07-03 17:12 | XR ---
EXAMINATION TYPE: XR chest 2V DATE OF EXAM: 07/03/2022 5:03 PM COMPARISON: Chest radiographs from 12/31/2021 TECHNIQUE: XR chest 2V Frontal and lateral views of the chest. CLINICAL INDICATION:Female, 47 years old with history of difficulty breathing; FINDINGS: Patient is rotated. There are right lower lobe airspace opacities which appear increased fr om 01/27/2022 with suspected left lower lobe airspace opacities also present. Lungs/Pleura: There is no evidence of pleural effusion, focal consolidation, or pneumothorax. Pulmonary vascularity: Pulmonary vascular congestion. Heart/mediastinum: Cardiomediastinal silhouette is enlarged and stable. Musculoskeletal: No acute osseous pathology. IMPRESSION: Similar cardiomegaly with bilateral lower lobe opacities related for pneumonia and/or pulmonary vascu lar congestion with congestive heart failure.
[2022-07-03] MEDS ORDERED: FUROSEMIDE 10 MG/ML 10 ML VIAL IV STA (17:32)
[2022-07-03 19:17] LABS: Glucose,Whole Blood 86 mg/dL (70-110)
[2022-07-03] MEDS ORDERED: DEXTROSE 50% SYRINGE 50 ML IVP PRN (20:35)
[2022-07-03 21:19] LABS: VBG PH 7.17 (7.31-7.41)
--- NOTE | 2022-07-03 21:28 | P.EN ---
A team note notified for patient altered mental status , patient lethargic , barely responding to sternal rub briefly. 47 years old admitted for pulmonary edema and fluid overload. no history of asthma or COPD. could not get ABG, due to body habitus. vital signs stable , patient started on BIpap , and started to respond a little bit, plan was to monitor her on the step down unit , with low threshold to move her to the ICU if she does not improve within an hour. she at this point was on 50% 14/6 bipap tolerating well, HR in the 80s, oxygen sat 100%, BP on forearm 118/60 lungs good breath sounds bilaterally with rales at lung basis edema of bilateral legs , and dependant edema over abd panus, hips and thighs. opens eyes to verbal stimulation , lifts head with painful stimuli and open eyes. patient reassessed and monitored periodically while on BIpap, no significant improvement , still cant get ABG. patient remains lethargic. case discussed with ICU attending, approved transfer to ICU , with intubation. due to hypercapnic respiratory failure with obesity hypoventilation syndrome Total amount of critical care time spent was 45 minutes not counting procedures performed.
[2022-07-03 21:37] LABS: Glucose,Whole Blood 80 mg/dL (70-110)
[2022-07-03] MEDS: NITROGLYCERIN OINT 1 INCH/GM PACKET TOPICAL SCH ×2 (22:42→23:27)
[2022-07-03] MEDS: INSULIN ASPART (NovoLOG) 100 UNIT/ML VIAL SQ SCH (22:42)
[2022-07-03] MEDS: FUROSEMIDE 10 MG/ML 4 ML VIAL IV SCH (23:57)
[2022-07-04 00:57] LABS: ABG Base Excess -3.6 mmol/L; ABG HCO3 24 mmol/L (21-25); ABG Oxygen Saturation 96.3 % (94-97); ABG PCO2 59 mmHg (35-45); ABG PH 7.22 (7.35-7.45); ABG PO2 91 mmHg (83-108); ABG TCO2 26 mmol/L (19-24); Allen Test Performed? Yes
[2022-07-04 05:00] LABS: Albumin 2.9 g/dL (3.5-5.0); Calcium 8.9 mg/dL (8.4-10.2); Potassium 3.8 mmol/L (3.5-5.1); Total Bilirubin 0.9 mg/dL (0.2-1.3); Total Protein 6.2 g/dL (6.3-8.2)
[2022-07-04 06:09] LABS: Glucose,Whole Blood 59 mg/dL (70-110)
[2022-07-04] MEDS: DEXTROSE 50% SYRINGE 50 ML IVP PRN ×5 (06:10→23:18)
[2022-07-04 06:26] LABS: Glucose,Whole Blood 109 mg/dL (70-110)
[2022-07-04] MEDS: INSULIN ASPART (NovoLOG) 100 UNIT/ML VIAL SQ SCH ×5 (06:47→23:48)
--- NOTE | 2022-07-04 07:16 | XR ---
EXAMINATION TYPE: XR chest 1V portable DATE OF EXAM: 07/04/2022 6:14 AM COMPARISON: Chest radiograph from one day prior. TECHNIQUE: XR chest 1V portable Portable AP radiograph of the chest. CLINICAL INDICATION:Female, 47 years old with history of Shortness of breath; FINDINGS: Lungs/Pleura: Similar multifocal airspace opacities. No evidence of pneumothorax or pleural effusion. Pulmonary vascularity: Pulmonary vascular congestion. Heart/mediastinum: Cardiomediastinal silhouette is enlarged and stable. Musculoskeletal: No acute osseous pathology. IMPRESSION: 1. Correlate for congestive for volume overload with serum BNP. 2. Similar multifocal airspace opacities.
[2022-07-04] MEDS: NITROGLYCERIN OINT 1 INCH/GM PACKET TOPICAL SCH (08:36)
[2022-07-04] MEDS: FUROSEMIDE 10 MG/ML 4 ML VIAL IV SCH (09:58)
--- NOTE | 2022-07-04 11:04 | P.CNPUL ---
History of Present Illness Consult date: 07/04/22 Requesting physician: Kevin Stanford Reason for consult: dyspnea, hypoxemia, abnormal CXR/CT Chief complaint: Shortness of breath, lower extremity edema History of present illness: This is a 47-year-old female patient with a known history of morbid obesity with a BMI of 60 kg per metered square, previous ventilatory dependent respiratory failure, congestive heart failure, cardiomegaly, hypertension, osteoarthritis, obstructive sleep apnea, chronic kidney disease, anxiety. She presented here to the emergency room with complaints of increasing shortness of breath and lower extremity edema yesterday. She was initially placed on BiPAP 14/6 and 50% FiO2 and admitted to the intensive care unit for obtundation. Chest x-ray reveals cardiomegaly with bilateral lower lobe opacities suggestive of either pneumonia versus pulmonary vascular congestion with congestive heart failure. White count 11.7. Hemoglobin 10.4. Sodium 143. Potassium 3.8. I carb 23. BUN 29. Creatinine 2.36. Troponin 0.044. Pro BNP 31,300. She was initiated on Lasix 40 mg IV every 8 hours. She is seen today in consultation in the intensive care unit. Arousable but still quite lethargic. Currently on BiPAP 14/6 at 40% FiO2. Arterial blood gases revealed a PaO2 of 91, pCO2 59, pH 7.22. Review of Systems ROS unobtainable: due to mental status Past Medical History Past Medical History: Coronary Artery Disease (CAD), Chest Pain / Angina, Heart Failure, Hypertension, Osteoarthritis (OA), Renal Disease, Sleep Apnea/CPA P/BIPAP Additional Past Medical History / Comment(s): SVT, sinus pauses, anemia, chronic kidney disease, blood clots-pt stated took xarelto for awhile, arthritis bilateral knees, anemia, constipation, lymphedema History of Any Multi-Drug Resistant Organisms: VRE Date of last positivie culture/infection: 05/03/20 MDRO Source:: VRE URINE Past Surgical History: Section, Hernia Repair Additional Past Surgical History / Comment(s): adominal hernia repair with mesh, cysts removed from stomach Past Anesthesia/Blood Transfusion Reactions: No Reported Reaction Additional Past Anesthesia/Blood Transfusion Reaction / Comment(s): Pt has received blood in the past without reaction. Past Psychological History: Anxiety Additional Psychological History / Comment(s): Pt takes ativan when needed for anxiety and states it helps. Pt lives at home with her 2 children. is independent. no pets. Smoking Status: Never smoker Past Alcohol Use History: None Reported Past Drug Use History: None Reported - Past Family History Father Family Medical History: Congestive Heart Failure (CHF) Additional Family Medical History / Comment(s): Father from CHF. Mother Family Medical History: Cancer, Hypertension, Sleep Apnea/CPAP/BIPAP Additional Family Medical History / Comment(s): Mother has had cancer removed from ear/head. Medications and Allergies Home Medications Medication Instructions Recorded Confirmed Type Omeprazole 20 mg PO DAILY 11/05/17 07/03/22 History minoxidiL 10 mg PO DAILY 11/05/17 07/03/22 History cloNIDine HCL [Catapres] 0.3 mg PO TID 01/04/19 07/03/22 History hydrALAZINE HCL [Apresoline] 100 mg PO TID 01/04/19 07/03/22 History Baclofen [Lioresal] 10 mg PO DAILY 11/20/21 07/03/22 History Metoprolol Tartrate [Lopressor] 100 mg PO BID 11/20/21 07/03/22 History Furosemide [Lasix] 80 mg PO DAILY 07/03/22 07/03/22 History Ibuprofen [Motrin] 800 mg PO DAILY 07/03/22 07/03/22 History Spironolactone 25 mg PO DAILY 07/03/22 07/03/22 History Allergies Allergy/AdvReac Type Severity Reaction Status Date / Time No Known Allergies Allergy Verified 07/03/22 17:38 Physical Exam Vitals: Vital Signs Temp Pulse Pulse Resp BP BP Pulse Ox 07/04/22 10:00 98 20 97/61 99 07/04/22 09:30 105 H 17 133/71 94 L 07/04/22 09:25 07/04/22 09:00 93 16 111/80 100 07/04/22 08:30 93 17 101/62 100 07/04/22 08:00 98.0 F 90 12 91/67 100 07/04/22 07:30 101 H 16 83/67 100 07/04/22 07:27 07/04/22 07:00 126 H 20 83/67 99 07/04/22 06:30 97.5 F L 106 H 12 96/73 90 L 07/04/22 06:00 100 23 102/72 100 07/04/22 05:30 94 33 H 94/66 100 07/04/22 05:00 96 13 99/62 100 07/04/22 04:30 89 12 104/63 100 07/04/22 04:00 97.2 F L 86 12 91/48 100 07/04/22 03:30 15 88/51 100 07/04/22 03:00 96 20 110/74 100 07/04/22 02:30 90 26 H 91/63 100 07/04/22 02:00 90 13 103/75 100 07/04/22 01:30 96.6 F L 87 13 115/65 100 07/04/22 01:00 87 12 87/49 99 07/04/22 00:30 87 12 95/57 97 07/04/22 00:04 07/04/22 00:00 96.1 F L 87 18 97/68 100 07/03/22 23:30 87 16 93/58 100 07/03/22 23:00 81 26 H 93/58 99 07/03/22 22:30 98 30 H 101/65 100 07/03/22 22:00 96.1 F L 78 30 H 112/80 96 07/03/22 21:36 83 L 07/03/22 21:03 97.3 F L 91 13 115/66 100 07/03/22 20:00 13 07/03/22 19:24 07/03/22 18:47 95 20 147/82 95 07/03/22 17:15 94 20 104/69 96 07/03/22 16:10 98 20 120/65 93 L 07/03/22 15:02 97.5 F L 94 22 151/94 FiO2 07/04/22 10:00 07/04/22 09:30 07/04/22 09:25 35 07/04/22 09:00 07/04/22 08:30 07/04/22 08:00 40 07/04/22 07:30 07/04/22 07:27 40 07/04/22 07:00 07/04/22 06:30 07/04/22 06:00 07/04/22 05:30 07/04/22 05:00 07/04/22 04:30 07/04/22 04:00 40 07/04/22 03:30 40 07/04/22 03:00 07/04/22 02:30 07/04/22 02:00 07/04/22 01:30 07/04/22 01:00 07/04/22 00:30 07/04/22 00:04 40 07/04/22 00:00 40 07/03/22 23:30 07/03/22 23:00 07/03/22 22:30 07/03/22 22:00 07/03/22 21:36 07/03/22 21:03 50 07/03/22 20:00 07/03/22 19:24 70 07/03/22 18:47 07/03/22 17:15 07/03/22 16:10 07/03/22 15:02 Intake and Output 07/03/22 07/04/22 07/04/22 22:59 06:59 14:59 Output Total 1400 55 Balance -1400 -55 Output: Urine 1400 55 Other: Voiding Method Indwelling Catheter Indwelling Catheter Indwelling Catheter Weight 179.2 kg 174 kg GENERAL EXAM: Arousable but quite drowsy, morbidly obese 47-year-old female, on BiPAP 14/6 at 40% FiO2, comfortable in no apparent distress. HEAD: Normocephalic. EYES: Normal reaction of pupils, equal size. NOSE: Clear with pink turbinates. THROAT: No erythema or exudates. NECK: No masses, no JVD. CHEST: No chest wall deformity. LUNGS: Equal air entry with crackles in the posterior bases. CVS: S1 and S2 normal with no audible murmur, regular rhythm. ABDOMEN: No hepatosplenomegaly, normal bowel sounds, no guarding or rigidity. SPINE: No scoliosis or deformity SKIN: No rashes CENTRAL NERVOUS SYSTEM: No focal deficits, tone is normal in all 4 extremities. EXTREMITIES: There is 1+ peripheral edema. No clubbing, no cyanosis. P eripheral pulses are intact. Results - Laboratory Findings CBC and BMP: 07/03/22 16:20 07/04/22 03:45 ABG ABG pH 7.22 (7.35-7.45) L 07/04/22 00:26 ABG pCO2 59 mmHg (35-45) H 07/04/22 00:26 ABG pO2 91 mmHg (83-108) 07/04/22 00:26 ABG O2 Saturation 96.3 % (94-97) 07/04/22 00:26 PT/INR, D-dimer PT 12.0 sec (9.0-12.0) 07/03/22 16:20 INR 1.1 (<1.2) 07/03/22 16:20 Abnormal lab findings: Abnormal Labs 07/03/22 07/03/22 07/03/22 16:20 16:20 16:20 WBC 11.7 H Hgb 10.4 L MCV 75.9 L MCH 19.6 L MCHC 25.9 L RDW 20.8 H Neutrophils # 10.6 H Lymphocytes # 0.5 L APTT 21.7 L ABG pH ABG pCO2 ABG Total CO2 VBG pH VBG pCO2 VBG HCO3 Chloride 109 H Carbon Dioxide 18 L BUN 28 H Creatinine 2.34 H Glucose POC Glucose (mg/dL) Troponin I Total Protein Albumin 07/03/22 07/03/22 07/04/22 16:20 20:58 00:26 WBC Hgb MCV MCH MCHC RDW Neutrophils # Lymphocytes # APTT ABG pH 7.22 L ABG pCO2 59 H ABG Total CO2 26 H VBG pH 7.17 L* VBG pCO2 63 H VBG HCO3 22 L Chloride Carbon Dioxide BUN Creatinine Glucose POC Glucose (mg/dL) Troponin I 0.044 H* Total Protein Albumin 07/04/22 07/04/22 03:45 06:08 WBC Hgb MCV MCH MCHC RDW Neutrophils # Lymphocytes # APTT ABG pH ABG pCO2 ABG Total CO2 VBG pH VBG pCO2 VBG HCO3 Chloride 110 H Carbon Dioxide BUN 29 H Creatinine 2.36 H Glucose 64 L POC Glucose (mg/dL) 59 L Troponin I Total Protein 6.2 L Albumin 2.9 L - Diagnostic Findings Chest x-ray: image reviewed Assessment and Plan Assessment: Acute hypoxemic respiratory failure secondary to an acute exacerbation of diastolic congestive heart failure, cannot rule out underlying pneumonia. Pro calcitonin pending Acute hypercapnic respiratory failure secondary to above History of ventilatory dependent respiratory failure Morbid obesity with obstructive sleep apnea syndrome History of coronary disease Hypertension History of DVT Anxiety History of chronic kidney disease History of SVT Nonsmoker Plan: The patient was seen and evaluated Chest x-ray, labs and medications reviewed Remains on Lasix 40 mg IV every 8 hours Titrate down the FiO2 to 35% continue BiPAP 14/6 PICC line placement for IV access Check a pro-calcitonin DuoNeb inhalations Continue to monitor her here in the ICU We'll continue to follow and make further recommendations based on her clinical status I have personally seen and examined the patient, performed the documentation and the assessment and plan as written. Number of minutes spent on the visit: 20.
[2022-07-04 11:35] LABS: Glucose,Whole Blood 59 mg/dL (70-110)
[2022-07-04] MEDS: IPRATROPIUM-ALBUTEROL 3 ML NEB INHALATION SCH ×3 (11:37→20:51)
[2022-07-04 12:13] LABS: Glucose,Whole Blood 80 mg/dL (70-110)
--- NOTE | 2022-07-04 14:57 | XR ---
EXAMINATION TYPE: XR chest 1V portable, XR chest 1V portable, XR chest 1V portable DATE OF EXAM: 07/04/2022 11:25 AM COMPARISON: Chest radiographs from 01/27/2022. TECHNIQUE: 3 subsequent portable radiographs were taken. XR chest 1V portable, XR chest 1V portable, XR chest 1V portable . CLINICAL INDICATION:Female, 47 years old with history of PICC LINE BEDSIDE; FINDINGS: Lungs/Pleura: Streaky atelectasis/airspace opacities are present the most proximal and the bases. The re is no evidence of pleural effusion, focal consolidation, or pneumothorax. Pulmonary vascularity: Pulmonary vascular congestion. Heart/mediastinum: Cardiomediastinal silhouette is enlarged and stable. Musculoskeletal: No acute osseous pathology. Lines/Tubes: Interval attempt at PICC line placement. The PICC line extends towards the the head and was subsequen tly adjusted and is now terminating in the right subclavian vein. IMPRESSION: 1. Abnormal position of the right PICC line with PICC extending cephalad towards the head with subse quent readjustment with tip now within the right subclavian vein. 2. Correlate with serum BNP for congestive heart failure/volume overload.
--- NOTE | 2022-07-04 15:49 | IR ---
PICC LINE PLACEMENT: HISTORY: Infection requiring long-term antibiotic therapy PROCEDURE: Ultrasound guidance of PICC line placement. RADIO FREQUENCY ENGINEER: COMPLICATIONS: None ANESTHESIA: 1. 1% Lidocaine locally. FINDINGS/TECHNIQUE: The procedure was explained to the patient. The risks, complications, benefits and alternatives were discussed and any questions were answered. Informed consent was obtained. The patient was placed supine on the fluoroscopic table and prepped and draped in the usual sterile fash ion. Utilizing a 21 gauge needle and sonographic guidance, access in the right basilic vein was ach ieved and there is placement of a 0.018 guidewire. The vein is patent. A 5-F. sheath was placed ove r the guidewire. The guidewire and dilator were removed and a 5-F. Double lumen PICC line was placed through the sheath with the chest x-ray confirming the tip at the level of the SVC. The sheath was removed, the catheter was flushed and sutured into position. The patient was stable throughout the p rocedure and remained stable upon discharge from the Department of Radiology. The vein puncture was patent under ultrasound. A retana scale image was obtained to document patency of the vein punctured. All elements of the maximal barrier technique were utilized. IMPRESSION: 1. Successful PICC line placement under ultrasound performed bedside within the ICU.
[2022-07-04 18:14] LABS: Glucose,Whole Blood 58 mg/dL (70-110)
[2022-07-04 19:11] LABS: Glucose,Whole Blood 75 mg/dL (70-110)
[2022-07-04 20:25] LABS: Magnesium 1.8 mg/dL (1.6-2.3); Potassium 3.9 mmol/L (3.5-5.1)
[2022-07-04] MEDS: FUROSEMIDE 10 MG/ML 10 ML VIAL IV SCH (20:54)
[2022-07-04 21:06] LABS: Glucose,Whole Blood 60 mg/dL (70-110)
[2022-07-04 21:24] LABS: Glucose,Whole Blood 114 mg/dL (70-110)
[2022-07-04 23:17] LABS: Glucose,Whole Blood 67 mg/dL (70-110)
[2022-07-04 23:46] LABS: Glucose,Whole Blood 100 mg/dL (70-110)
[2022-07-04] MEDS: DEXTROSE 5% IN WATER 1,000 ML IV SCH (23:47)
[2022-07-05 00:01] LABS: Glucose,Whole Blood 119 mg/dL (70-110)
[2022-07-05] MEDS: IPRATROPIUM-ALBUTEROL 3 ML NEB INHALATION SCH ×7 (00:21→23:39)
[2022-07-05 01:00] LABS: Glucose,Whole Blood 74 mg/dL (70-110)
--- NOTE | 2022-07-05 02:37 | CONS ---
CONSULTATION HISTORY OF PRESENT ILLNESS: This is a 47-year-old lady with a known history of hypertension, chronic diastolic heart failure and severe pulmonary hypertension with chronic kidney disease. She came into the hospital with complaints of increasing shortness of breath and apparently was on the floor and had an issue of worsening shortness of breath and has was moved here to the ICU. She is more comfortable now. While I am evaluating her, she had a PICC line in progress, so I did not do a detailed evaluation. She is known to have chronic heart failure and severe pulmonary hypertension, mostly diastolic heart failure. At the time of my evaluation, she is comfortable and she is having a PICC line being placed. Please refer to the previous notes by Dr. Miller and also admitting physician's notes. MEDICATIONS: The patient's medications include: 1. Minoxidil. 2. Hydralazine. 3. Clonidine. 4. Omeprazole. 5. Metoprolol tartrate. 6. Lasix. 7. Motrin. ALLERGIES: None. PHYSICAL EXAMINATION: VITAL SIGNS: On examination, blood pressure is 118/70, pulse rate is about 100 per minute. EKG actually revealed sinus mechanism, nonspecific ST changes and baseline artifact. NECK: JVD of 1 to 2 cm. No carotid bruit. HEART: S1, S2 heard normally. Short systolic murmur noted along left sternal border. LUNGS: Reveal diminished air entry. ABDOMEN: Distended. LOWER EXTREMITIES: Reveal significant edema. CENTRAL NERVOUS SYSTEM: Grossly. No focal deficits. Limited exam performed. IMPRESSION: 1. Exacerbation of the diastolic heart failure, acute on chronic. 2. Severe pulmonary hypertension. 3. Chronic kidney disease. 4. History of uncontrolled hypertension. RECOMMENDATIONS: I recommend that we go ahead with diuresis with Lasix 80 mg q.12 hours, have limited echo and add amlodipine to lower her blood pressure in view of severe pulmonary hypertension. Overall prognosis remains poor. MMODL / IJN: [id number] /
[2022-07-05 03:22] LABS: Glucose,Whole Blood 67 mg/dL (70-110)
[2022-07-05] MEDS: DEXTROSE 50% SYRINGE 50 ML IVP PRN (03:24)
[2022-07-05 03:30] LABS: ABG HCO3 25 mmol/L (21-25); ABG Oxygen Saturation 95.4 % (94-97); ABG PCO2 49 mmHg (35-45); ABG PH 7.32 (7.35-7.45); ABG PO2 78 mmHg (83-108); ABG TCO2 27 mmol/L (19-24); Allen Test Performed? Yes
[2022-07-05] MEDS ORDERED: METOPROLOL TARTRATE 5 MG/5 ML VIAL IVP STA (03:39)
[2022-07-05 03:46] LABS: Glucose,Whole Blood 120 mg/dL (70-110)
[2022-07-05 05:19] LABS: Glucose,Whole Blood 77 mg/dL (70-110)
[2022-07-05] MEDS: INSULIN ASPART (NovoLOG) 100 UNIT/ML VIAL SQ SCH ×6 (05:20→23:53)
[2022-07-05] MEDS ORDERED: METOPROLOL TARTRATE 5 MG/5 ML VIAL IVP SCH (06:00)
[2022-07-05 06:24] LABS: Glucose,Whole Blood 83 mg/dL (70-110)
[2022-07-05 06:46] LABS: Anisocytosis Moderate; Basophils # (A) 0.1 k/uL (0-0.2); Basophils % (A) 1 %; Eosinophils # (A) 0.1 k/uL (0-0.7); Eosinophils % (A) 2 %; HCT 34.8 % (34.0-46.0); HGB 9.1 gm/dL (11.4-16.0); Hypochromasia Marked; Lymphocytes # (A) 0.8 k/uL (1.0-4.8); Lymphocytes % (A) 10 %; MCH 20.1 pg (25.0-35.0); MCV 77.5 fL (80.0-100.0); Mean Platelet Volume 8.7; Microcytosis Moderate; Monocytes # (A) 0.5 k/uL (0-1.0); Monocytes % (A) 7 %; Neutrophils # (A) 6.3 k/uL (1.3-7.7); Neutrophils % (A) 78 %; Platelet Count 226 k/uL (150-450); RDW 20.4 % (11.5-15.5)
[2022-07-05 06:54] LABS: Calcium 8.7 mg/dL (8.4-10.2); Potassium 3.5 mmol/L (3.5-5.1)
--- NOTE | 2022-07-05 07:12 | XR ---
EXAMINATION TYPE: XR chest 1V portable DATE OF EXAM: 07/05/2022 6:02 AM COMPARISON: Chest radiographs from 07/04/2022. TECHNIQUE: XR chest 1V portable Portable AP radiograph of the chest. CLINICAL INDICATION:Female, 47 years old with history of pulmonary edema; FINDINGS: Limited examination due to patient rotation. Lungs/Pleura: No pneumothorax, pleural effusion, focal consolidation. Pulmonary vascularity: Pulmonary vascular congestion. Heart/mediastinum: Cardiomediastinal silhouette is enlarged and stable. Musculoskeletal: No acute osseous pathology. Other findings: None Lines/Tubes: Abnormal position of right PICC line with thick extending cephalad towards the head. IMPRESSION: 1. Abnormal position of right PICC line with distal tip extending cephalad towards the head. 2. Cardiomegaly with pulmonary vascular congestion. Correlate with BNP for congestive heart failure/ volume overload.
[2022-07-05 08:41] LABS: Glucose,Whole Blood 72 mg/dL (70-110)
[2022-07-05 09:10] LABS: Estimated Average Glucose CANCELED
[2022-07-05] MEDS: FUROSEMIDE 10 MG/ML 10 ML VIAL IV SCH ×2 (09:21→20:03)
[2022-07-05] MEDS ORDERED: Potassium Replacement Protocol 1 EACH MISC MISCELLANE PRN ×2 (09:23→22:06)
[2022-07-05] MEDS ORDERED: Magnesium Replacement Protocol 1 EACH MISC MISCELLANE PRN (09:24)
[2022-07-05] MEDS: MAGNESIUM SULFATE-D5W PMX 1 GM in DEXTROSE/WATER 1 100ML.BAG IVPB SCH ×2 (09:39→12:30)
[2022-07-05] MEDS: POTASSIUM CHLORIDE ER 20 MEQ TAB.ER PO SCH ×2 (09:39→12:30)
[2022-07-05] MEDS: METOPROLOL TARTRATE 50 MG TAB PO SCH ×2 (09:39→20:03)
--- NOTE | 2022-07-05 10:07 | CA ---
Transthoracic Echo Report Name: Ankita Sorto Age: 47 Gender: F : 1975 Exam Date: 07/05/2022 07:48 Exam Location: [facility] Ht (in): 67 Wt (lb): 383 Ordering Physician: Abraham Florence MD ([id number]) Attending/Referring Phys: Behavioral Interventionist Amber Galvin RDCS Procedure CPT: Indications: chf Cardiac Hx: Technical Quality: Technically difficult study Contrast 1: Lumason Total Dose (mL): 5 Contrast 2: Total Dose (mL): MEASUREMENTS (Male / Female) Normal Values FINDINGS Left Ventricle Left ventricular ejection fraction is estimated at 55-60 %. Right Ventricle Right Atrium Left Atrium Mitral Valve Aortic Valve Tricuspid Valve Pulmonic Valve Pericardium Small pericardial effusion. Aorta CONCLUSIONS Technically difficult study. Normal left ventricle size and systolic function Previewed by: Dr. Madi Vences MD (Electronically Signed) Final Date: 05 July 2022 10:06
--- NOTE | 2022-07-05 11:13 | P.NPCON ---
History of Present Illness - Reason for Consult chronic renal failure - History of Present Illness Patient is a 46-year-old female with history of morbid obesity, coronary artery disease, hypertension, chronic kidney disease NKF stage IV with baseline creatinine near 2. Patient also has a history of CHF and diastolic dysfunction. She was admitted to the hospital with complaints of shortness of breath which increased over the last 1-2 weeks. Chest x-ray showed evidence of pulmonary vascular congestion and patient is currently being diuresed. Serum creatinine was 2.3 on initial admission and increased to 2.4 today. Previous creatinine has been about 1.8-2 mg/dL. No complaints of nausea vomiting, fever or chills or abdominal pain. Currently with indwelling Colon catheter with good urine output. Blood pressure has not been low Review of Systems As per HPI, other systems negative Past Medical History Past Medical History: Coronary Artery Disease (CAD), Chest Pain / Angina, Heart Failure, Hypertension, Osteoarthritis (OA), Renal Disease, Sleep Apnea/CPAP/BIPAP Additional Past Medical History / Comment(s): SVT, sinus pauses, anemia, chronic kidney disease, blood clots-pt stated took xarelto for awhile, arthritis bilateral knees, anemia, constipation, lymphedema History of Any Multi-Drug Resistant Organisms: VRE Date of last positivie culture/infection: 05/03/20 MDRO Source:: VRE URINE Past Surgical History: Section, Hernia Repair Additional Past Surgical History / Comment(s): adominal hernia repair with mesh, cysts removed from stomach Past Anesthesia/Blood Transfusion Reactions: No Reported Reaction Additional Past Anesthesia/Blood Transfusion Reaction / Comment(s): Pt has received blood in the past without reaction. Past Psychological History: Anxiety Additional Psychological History / Comment(s): Pt takes ativan when needed for anxiety and states it helps. Pt lives at home with her 2 children. is independent. no pets. Smoking Status: Never smoker Past Alcohol Use History: None Reported Past Drug Use History: None Reported - Past Family History Father Family Medical History: Congestive Heart Failure (CHF) Additional Family Medical History / Comment(s): Father from CHF. Mother Family Medical History: Cancer, Hypertension, Sleep Apnea/CPAP/BIPAP Additional Family Medical History / Comment(s): Mother has had cancer removed from ear/head. Medications and Allergies Home Medications Medication Instructions Recorded Confirmed Type Omeprazole 20 mg PO DAILY 02/06/18 10/04/22 History minoxidiL 10 mg PO DAILY 11/05/17 07/03/22 History cloNIDine HCL [Catapres] 0.3 mg PO TID 01/04/19 07/03/22 History hydrALAZINE HCL [Apresoline] 100 mg PO TID 01/04/19 07/03/22 History Baclofen [Lioresal] 10 mg PO DAILY 11/20/21 07/03/22 History Metoprolol Tartrate [Lopressor] 100 mg PO BID 11/20/21 07/03/22 History Furosemide [Lasix] 80 mg PO DAILY 07/03/22 07/03/22 History Ibuprofen [Motrin] 800 mg PO DAILY 07/03/22 07/03/22 History Spironolactone 25 mg PO DAILY 07/03/22 07/03/22 History Allergies Allergy/AdvReac Type Severity Reaction Status Date / Time No Known Allergies Allergy Verified 07/03/22 17:38 Physical Exam Vitals: Vital Signs Temp Pulse Resp BP Pulse Ox FiO2 07/05/22 11:00 120 H 19 144/82 99 07/05/22 10:55 120 H 07/05/22 10:52 94 L 07/05/22 10:30 124 H 14 137/93 94 L 07/05/22 10:00 126 H 20 120/87 88 L 07/05/22 09:30 125 H 16 128/85 94 L 07/05/22 09:00 129 H 18 124/98 92 L 07/05/22 08:30 120 H 18 140/89 93 L 07/05/22 08:00 98.1 F 105 H 12 137/87 99 30 07/05/22 07:35 94 07/05/22 07:30 92 11 L 125/82 98 07/05/22 07:25 98 07/05/22 07:22 30 07/05/22 07:00 97 14 125/82 97 07/05/22 06:30 90 11 L 135/74 97 07/05/22 06:00 98 13 118/81 96 07/05/22 05:30 100 15 92/72 96 07/05/22 05:07 30 07/05/22 05:00 110 H 13 118/79 92 L 07/05/22 04:30 89 13 125/79 99 10/06/22 04:00 97.3 F L 103 H 15 125/79 97 35 07/05/22 03:43 35 07/05/22 03:30 120 H 14 102/88 91 L 07/05/22 02:30 113 H 14 94/67 95 07/05/22 02:00 111 H 15 94/67 93 L 07/05/22 01:30 125 H 14 80/55 95 07/05/22 01:00 103 H 14 112/60 99 07/05/22 00:32 103 H 07/05/22 00:30 108 H 13 115/66 100 07/05/22 00:21 106 H 07/05/22 00:19 30 07/05/22 00:00 98.0 F 104 H 13 95/51 100 30 07/04/22 23:30 104 H 14 80/50 95 07/04/22 23:00 102 H 14 80/50 98 07/04/22 22:30 108 H 14 111/69 98 07/04/22 22:00 103 H 17 79/58 94 L 07/04/22 21:07 100 07/04/22 21:00 97 26 H 106/66 100 07/04/22 20:52 105 H 30 07/04/22 20:30 18 139/87 84 L 07/04/22 20:00 98.3 F 24 139/87 95 30 07/04/22 19:30 20 144/111 97 07/04/22 19:00 120 H 22 139/87 95 07/04/22 18:30 117 H 12 95 07/04/22 18:00 22 106/52 07/04/22 17:30 24 110/68 07/04/22 17:00 121 H 13 111/73 93 L 07/04/22 16:30 106 H 18 101/50 07/04/22 16:00 98.5 F 98 17 107/88 93 L 30 07/04/22 15:30 105 H 15 99/66 92 L 07/04/22 15:29 105 H 07/04/22 15:16 92 07/04/22 15:14 30 07/04/22 15:00 110 H 11 L 122/77 87 L 07/04/22 14:30 89 18 95 07/04/22 14:00 101 H 19 93 L 07/04/22 13:30 100 18 118/83 98 07/04/22 13:00 102 H 19 95 07/04/22 12:30 7 L 114/93 100 07/04/22 12:00 97.3 F L 124 H 22 103/64 96 30 07/04/22 11:47 95 07/04/22 11:38 100 07/04/22 11:33 35 07/04/22 11:30 21 126/87 93 L Intake and Output 07/04/22 07/05/22 07/05/22 22:59 06:59 14:59 Intake Total 480 400 Output Total 755 625 505 Balance -755 -145 -105 Intake: IV 480 280 Dextrose 5% in Water 1, 480 180 000 ml @ 60 mls/hr IV . [id number] [facility] Rx#:[id number] Magnesium Sulfate-D5w Pmx 100 1 gm In Dextrose/Water 1 100ml.bag @ 100 mls/hr IVPB Q1H [facility] Rx#: [id number] Oral 120 Output: Urine [id number] Other: Voiding Method Indwelling Catheter Indwelling Catheter Indwelling Catheter Weight 174.4 kg Patient is awake, comfortable, not in any acute distress Alert oriented 3 Examination of the heart S1 and S2 Examination of the lungs bilateral breath sounds are heard Abdomen is soft morbidly obese Examination lower extremities shows chronic skin changes chronic edema HOP SEPARATOR exam grossly intact Results - Lab Results Most recent lab results ABG pH 7.32 (7.35-7.45) L 07/05/22 03:28 ABG pCO2 49 mmHg (35-45) H 07/05/22 03:28 ABG pO2 78 mmHg (83-108) L 07/05/22 03:28 ABG HCO3 25 mmol/L (21-25) 07/05/22 03:28 ABG O2 Saturation 95.4 % (94-97) 07/05/22 03:28 Calcium 8.7 mg/dL (8.4-10.2) 07/05/22 05:47 Magnesium 1.8 mg/dL (1.6-2.3) 07/05/22 05:47 07/05/22 05:47 07/05/22 05:47 Assessment and Plan Assessment: 1. Chronic kidney disease NKF stage IV with baseline creatinine 1.8-2 mg/dL etiology is nephrosclerosis and cardiorenal. UA has shown proteinuria previously. Workup showed most serologies to be negative with slightly elevated kappa and lambda chains. 3. Volume overload 4. Acute on chronic diastolic CHF with ejection fraction 55-60%. 5. Morbid obesity Plan: Continue with current dose of Lasix Patient is advised regarding restriction of high salt containing foods Patient will need evaluation by hematology regarding elevated light chains. This can be done as outpatient. Repeat labs in a.m. next Thank you for the consultation. We'll continue to follow the patient with you during her hospitalization
--- NOTE | 2022-07-05 11:22 | P.PN ---
Subjective Progress Note Date: 07/05/22 This is a 47-year-old female patient with a known history of morbid obesity with a BMI of 60 kg per metered square, previous ventilatory dependent respiratory failure, congestive heart failure, cardiomegaly, hypertension, osteoarthritis, obstructive sleep apnea, chronic kidney disease, anxiety. She presented here to the emergency room with complaints of increasing shortness of breath and lower extremity edema yesterday. She was initially placed on BiPAP 14/6 and 50% FiO2 and admitted to the intensive care unit for obtundation. Chest x-ray reveals cardiomegaly with bilateral lower lobe opacities suggestive of either pneumonia versus pulmonary vascular congestion with congestive heart failure. White count 11.7. Hemoglobin 10.4. Sodium 143. Potassium 3.8. I carb 23. BUN 29. Creatinine 2.36. Troponin 0.044. Pro BNP 31,300. She was initiated on Lasix 40 mg IV every 8 hours. She is seen today in consultation in the intensive care unit. Arousable but still quite lethargic. Currently on BiPAP 14/6 at 40% FiO2. Arterial blood gases revealed a PaO2 of 91, pCO2 59, pH 7.22. The patient is seen today 07/05/2022 in follow-up in the intensive care unit. She is more awake and alert today. She is currently resting comfortably in bed. She is maintaining O2 saturation 90s on 2 L/m per nasal cannula. She has been utilizing BiPAP 14/6 and 30% FiO2. She has D5W running at 60 ML's per hour. Echocardiogram revealed preserved left ventricular systolic function. White count 8.0. Hemoglobin 9.1. Sodium 144. Potassium 3.5. BUN 29. Creatinine 2.48. Glucose 74. Chest x-ray reveals cardiomegaly with pulmonary vascular congestion. She remains on Lasix 80 mg IV every 12 hours. Currently in a negative 1.4L balance. Objective - Vital Signs Vital signs: Vital Signs Temp 98.1 F 07/05/22 08:00 Pulse 120 H 07/05/22 11:00 Resp 19 07/05/22 11:00 BP 144/82 07/05/22 11:00 Pulse Ox 99 07/05/22 11:00 FiO2 30 07/05/22 08:00 Intake & Output 07/04/22 07/05/22 07/05/22 18:59 06:59 18:59 Intake Total 480 400 Output Total 885 1030 505 Balance -885 -550 -105 Weight 174 kg 174.4 kg Intake: IV 480 280 Dextrose 5% in Water 1, 480 180 000 ml @ 60 mls/hr IV . [id number] [facility] Rx#:[id number] Magnesium Sulfate-D5w Pmx 100 1 gm In Dextrose/Water 1 100ml.bag @ 100 mls/hr IVPB Q1H [facility] Rx#: [id number] Oral 120 Output: Urine 885 1030 505 Other: Voiding Method Indwelling Catheter Indwelling Catheter Indwelling Catheter - Exam GENERAL EXAM: Awake, alert, morbidly obese 47-year-old female, on 2 L nasal cannula alternating with BiPAP 14/6 at 40% FiO2, comfortable in no apparent distress. HEAD: Normocephalic. EYES: Normal reaction of pupils, equal size. NOSE: Clear with pink turbinates. THROAT: No erythema or exudates. NECK: No masses, no JVD. CHEST: No chest wall deformity. LUNGS: Equal air entry with crackles in the posterior bases. CVS: S1 and S2 normal with no audible murmur, regular rhythm. ABDOMEN: No hepatosplenomegaly, normal bowel sounds, no guarding or rigidity. SPINE: No scoliosis or deformity SKIN: No rashes CENTRAL NERVOUS SYSTEM: No focal deficits, tone is normal in all 4 extremities. EXTREMITIES: There is 1+ peripheral edema. No clubbing, no cyanosis. Peripheral pulses are intact. - Labs CBC & Chem 7: 07/05/22 05:47 07/05/22 05:47 Labs: Abnormal Lab Results - Last 24 Hours (Table) 07/04/22 07/04/22 07/04/22 Range/Units 03:45 11:33 18:13 Hgb (11.4-16.0) gm/dL MCV (80.0-100.0) fL MCH (25.0-35.0) pg MCHC (31.0-37.0) g/dL RDW (11.5-15.5) % Lymphocytes # (1.0-4.8) k/uL ABG pH (7.35-7.45) ABG pCO2 (35-45) mmHg ABG pO2 (83-108) mmHg ABG Total CO2 (19-24) mmol/L Chloride (98-107) mmol/L BUN (7-17) mg/dL Creatinine (0.52-1.04) mg/dL POC Glucose (mg/dL) 59 L 58 L (70-110) mg/dL Procalcitonin 0.52 H (0.02-0.09) ng/mL 07/04/22 07/04/22 07/04/22 Range/Units 21:05 21:23 23:15 Hgb (11.4-16.0) gm/dL MCV (80.0-100.0) fL MCH (25.0-35.0) pg MCHC (31.0-37.0) g/dL RDW (11.5-15.5) % Lymphocytes # (1.0-4.8) k/uL ABG pH (7.35-7.45) ABG pCO2 (35-45) mmHg ABG pO2 (83-108) mmHg ABG Total CO2 (19-24) mmol/L Chloride (98-107) mmol/L BUN (7-17) mg/dL Creatinine (0.52-1.04) mg/dL POC Glucose (mg/dL) 60 L 114 H 67 L (70-110) mg/dL Procalcitonin (0.02-0.09) ng/mL 07/04/22 07/05/22 07/05/22 Range/Units 23:59 03:20 03:28 Hgb (11.4-16.0) gm/dL MCV (80.0-100.0) fL MCH (25.0-35.0) pg MCHC (31.0-37.0) g/dL RDW (11.5-15.5) % Lymphocytes # (1.0-4.8) k/uL ABG pH 7.32 L (7.35-7.45) ABG pCO2 49 H (35-45) mmHg ABG pO2 78 L (83-108) mmHg ABG Total CO2 27 H (19-24) mmol/L Chloride (98-107) mmol/L BUN (7-17) mg/dL Creatinine (0.52-1.04) mg/dL POC Glucose (mg/dL) 119 H 67 L (70-110) mg/dL Procalcitonin (0.02-0.09) ng/mL 07/05/22 07/05/22 07/05/22 Range/Units 03:44 05:47 05:47 Hgb 9.1 L (11.4-16.0) gm/dL MCV 77.5 L (80.0-100.0) fL MCH 20.1 L (25.0-35.0) pg MCHC 26.0 L (31.0-37.0) g/dL RDW 20.4 H (11.5-15.5) % Lymphocytes # 0.8 L (1.0-4.8) k/uL ABG pH (7.35-7.45) ABG pCO2 (35-45) mmHg ABG pO2 (83-108) mmHg ABG Total CO2 (19-24) mmol/L Chloride 109 H (98-107) mmol/L BUN 29 H (7-17) mg/dL Creatinine 2.48 H (0.52-1.04) mg/dL POC Glucose (mg/dL) 120 H (70-110) mg/dL Procalcitonin (0.02-0.09) ng/mL Assessment and Plan Assessment: Acute hypoxemic respiratory failure secondary to an acute exacerbation of diastolic congestive heart failure, cannot rule out underlying pneumonia. Pro calcitonin 0.52 Acute hypercapnic respiratory failure secondary to above History of ventilatory dependent respiratory failure Morbid obesity with obstructive sleep apnea syndrome History of coronary disease Hypertension History of DVT Anxiety History of chronic kidney disease History of SVT Nonsmoker Plan: The patient was seen and evaluated Chest x-ray, labs and medications reviewed Remains on Lasix 80 mg IV every 12 hours DuoNeb inhalations We'll continue to follow I have personally seen and examined the patient, performed the documentation and the assessment and plan as written. Number of minutes spent on the visit: 10.
[2022-07-05 11:48] LABS: Glucose,Whole Blood 86 mg/dL (70-110)
[2022-07-05] MEDS ORDERED: ALBUMIN HUMAN 5% 250 ML IVPB ONE ×2 (11:55)
[2022-07-05] MEDS: amLODIPine 5 MG TAB PO SCH (13:40)
[2022-07-05 15:25] LABS: Glucose,Whole Blood 95 mg/dL (70-110)
[2022-07-05] MEDS: DEXTROSE 5% IN WATER 1,000 ML IV SCH (16:21)
[2022-07-05] MEDS ORDERED: POTASSIUM CHLORIDE ER 20 MEQ TAB.ER PO SCH ×2 (18:00→23:00)
[2022-07-05 20:01] LABS: Glucose,Whole Blood 94 mg/dL (70-110)
[2022-07-05 23:18] LABS: Glucose,Whole Blood 99 mg/dL (70-110)
[2022-07-06] MEDS: IPRATROPIUM-ALBUTEROL 3 ML NEB INHALATION SCH ×6 (03:19→23:14)
[2022-07-06 05:00] LABS: Glucose,Whole Blood 84 mg/dL (70-110)
--- NOTE | 2022-07-06 05:33 | PN ---
PROGRESS NOTE SUBJECTIVE: This lady has normal systolic function, severe pulmonary hypertension, chronic kidney disease with edema. She is having short runs of paroxysmal supraventricular tachycardia. I have seen her this morning. Her rhythm appears to be sinus with frequent runs of PAT. Her beta bhumika has just been resumed, which is metoprolol 100 mg b.i.d. I am also adding a small dose of amlodipine in view of her pulmonary hypertension and this can be given 2 hours later. LABORATORY DATA: Suggests that the potassium level is 3.5, and she is going to have this addressed. Creatinine remains at 2.48. OBJECTIVE: VITAL SIGNS: Stable. HEART: S1, S2 heard normally. Short systolic murmur noted. LUNGS: Reveal diminished air entry. ABDOMEN: Soft. LOWER EXTREMITIES: Reveal bilateral edema. CENTRAL NERVOUS SYSTEM: Limited exam. No significant abnormalities. RECOMMENDATIONS: Combination of oral metoprolol and amlodipine and see how she does. Correct electrolyte imbalance. MMODL / IJN: [id number] /
[2022-07-06] MEDS: INSULIN ASPART (NovoLOG) 100 UNIT/ML VIAL SQ SCH ×5 (05:46→20:23)
[2022-07-06 06:03] LABS: Calcium 8.4 mg/dL (8.4-10.2); Potassium 4.2 mmol/L (3.5-5.1)
[2022-07-06 06:17] LABS: Anisocytosis Moderate; HCT 32.7 % (34.0-46.0); HGB 8.8 gm/dL (11.4-16.0); Hypochromasia Marked; MCH 19.8 pg (25.0-35.0); MCV 73.2 fL (80.0-100.0); Mean Platelet Volume 8.6; Microcytosis Marked; Platelet Count 211 k/uL (150-450); Poikilocytosis Slight; RBC 4.47 m/uL (3.80-5.40); RDW 20.8 % (11.5-15.5)
[2022-07-06 06:45] LABS: Eosinophils # (M) 0.45 k/uL (0-0.7); Lymphocytes # (M) 1.26 k/uL (1.0-4.8); Monocytes # (M) 0.72 k/uL (0-1.0); Neutrophils # (M) 6.75 k/uL (1.3-7.7); Neutrophils % (M) 75 %; Nucleated Red Blood Cells 1 /100 WBC (0-0); Total Cells Counted 200
[2022-07-06 06:46] LABS: Polychromasia Present
[2022-07-06 06:47] LABS: Anisocytosis (M) Present; Poikilocytosis (M) Present; RBC Fragments Present; Target Cells Present
--- NOTE | 2022-07-06 08:15 | XR ---
EXAMINATION TYPE: XR chest 1V portable DATE OF EXAM: 07/06/2022 COMPARISON: 07/05/2022, 07/04/2022 INDICATION: Pulmonary edema TECHNIQUE: Single frontal view of the chest is obtained. FINDINGS: The heart size is enlarged. The pulmonary vasculature is upper limits of normal. Mild right lower lobe infiltrate is present. Left diaphragm may be out of the field of view. PICC line on the right has tip directed into the neck. IMPRESSION: 1. Mild right lower lobe infiltrate. Follow-up recommended. 2. Right-sided PICC line tip directed into the neck.
[2022-07-06] MEDS: FUROSEMIDE 10 MG/ML 10 ML VIAL IV SCH ×2 (08:55→20:05)
[2022-07-06] MEDS: METOPROLOL TARTRATE 50 MG TAB PO SCH ×2 (08:56→20:05)
[2022-07-06] MEDS: amLODIPine 5 MG TAB PO SCH (08:56)
--- NOTE | 2022-07-06 10:33 | P.PN ---
Subjective Patient is seen for follow-up for chronic kidney disease and acute kidney injury. Underlying CK D stage IV baseline creatinine around 1.8-2 mg/dL. Admitted to the hospital with shortness of breath and volume overload. Currently being diuresed. No significant complaints today Serum creatinine at 2.4 mg/dL Urine output 3.5 L for 24 hours. Objective - Vital Signs Vital signs: Vital Signs Temp 97.7 F 07/06/22 08:00 Pulse 100 07/06/22 10:00 Resp 18 07/06/22 10:00 BP 159/114 07/06/22 10:00 Pulse Ox 98 07/06/22 10:00 FiO2 30 07/06/22 03:20 Intake & Output 07/05/22 07/06/22 07/06/22 18:59 06:59 18:59 Intake Total 1020 720 300 Output Total 1290 2215 300 Balance -270 -1495 0 Weight 171.9 kg Intake: IV 900 720 60 Dextrose 5% in Water 1, 600 720 60 000 ml @ 60 mls/hr IV . [id number] [facility] Rx#:[id number] Magnesium Sulfate-D5w Pmx 300 1 gm In Dextrose/Water 1 100ml.bag @ 100 mls/hr IVPB Q1H [facility] Rx#: [id number] Oral 120 240 Output: Urine 1290 2215 300 Other: Voiding Method Indwelling Catheter Indwelling Catheter # Voids 1 - Exam Patient is awake, comfortable, not in any acute distress Examination of the heart S1 and S2 Examination of the lungs decreased breath sounds at the bases Abdomen is soft nontender Examination of lower extremity shows chronic edema chronic skin changes. - Labs CBC & Chem 7: 07/06/22 05:22 07/06/22 05:22 Labs: Abnormal Lab Results - Last 24 Hours (Table) 07/06/22 07/06/22 Range/Units 05:22 05:22 Hgb 8.8 L (11.4-16.0) gm/dL Hct 32.7 L (34.0-46.0) % MCV 73.2 L (80.0-100.0) fL MCH 19.8 L (25.0-35.0) pg MCHC 27.0 L (31.0-37.0) g/dL RDW 20.8 H (11.5-15.5) % Nucleated RBCs 1 H (0-0) /100 WBC Chloride 108 H (98-107) mmol/L BUN 31 H (7-17) mg/dL Creatinine 2.42 H (0.52-1.04) mg/dL Assessment and Plan Assessment: 1. Chronic kidney disease NKF stage IV with baseline creatinine 1.8-2 mg/dL etiology is nephrosclerosis and cardiorenal. UA has shown proteinuria previously. Workup showed most serologies to be negative with slightly elevated kappa and lambda chains. 3. Volume overload 4. Acute on chronic diastolic CHF with ejection fraction 55-60%. 5. Morbid obesity 6. Anemia rule out iron deficiency versus anemia of chronic disease. Plan: Continue current dose of IV Lasix Monitor electrolytes Check iron profile Add Aranesp
--- NOTE | 2022-07-06 11:13 | IR ---
PICC LINE exchange over a guidewire: HISTORY: Infection requiring long-term antibiotic therapy PROCEDURE: A senior director of [employer] guidance of PICC line exchange over a guidewire. COMPLICATIONS: None ANESTHESIA: 1. 1% Lidocaine locally. FINDINGS/TECHNIQUE: The procedure was explained to the patient. The risks, complications, benefits and alternatives were discussed and any questions were answered. Informed consent was obtained. The patient was placed supine on the fluoroscopic table and prepped and draped in the usual sterile fash ion. Utilizing pre-existing PICC line was cut and there is placement of a 0.018 guidewire. The vein is patent. A 5-Fr sheath was placed over the guidewire. The guidewire and dilator were removed and a 5-F. Double lumen PICC line was placed through the sheath with the tip at the level of the SVC. T he sheath was removed, the catheter was flushed and sutured into position. The patient was stable th roughout the procedure and remained stable upon discharge from the Department of Radiology. The vein puncture was patent under ultrasound. A retana scale image was obtained to document patency of the vein punctured. All elements of the maximal barrier technique were utilized. FLUOROSCOPY TIME: 0.6 minutes and one images IMPRESSION: Successful PICC double lumen line exchange under fluoroscopic guidance.
--- NOTE | 2022-07-06 11:26 | P.PN ---
Subjective Progress Note Date: 07/06/22 This is a 47-year-old female patient with a known history of morbid obesity with a BMI of 60 kg per metered square, previous ventilatory dependent respiratory failure, congestive heart failure, cardiomegaly, hypertension, osteoarthritis, obstructive sleep apnea, chronic kidney disease, anxiety. She presented here to the emergency room with complaints of increasing shortness of breath and lower extremity edema yesterday. She was initially placed on BiPAP 14/6 and 50% FiO2 and admitted to the intensive care unit for obtundation. Chest x-ray reveals cardiomegaly with bilateral lower lobe opacities suggestive of either pneumonia versus pulmonary vascular congestion with congestive heart failure. White count 11.7. Hemoglobin 10.4. Sodium 143. Potassium 3.8. I carb 23. BUN 29. Creatinine 2.36. Troponin 0.044. Pro BNP 31,300. She was initiated on Lasix 40 mg IV every 8 hours. She is seen today in consultation in the intensive care unit. Arousable but still quite lethargic. Currently on BiPAP 14/6 at 40% FiO2. Arterial blood gases revealed a PaO2 of 91, pCO2 59, pH 7.22. The patient is seen today 07/05/2022 in follow-up in the intensive care unit. She is more awake and alert today. She is currently resting comfortably in bed. She is maintaining O2 saturation 90s on 2 L/m per nasal cannula. She has been utilizing BiPAP 14/6 and 30% FiO2. She has D5W running at 60 ML's per hour. Echocardiogram revealed preserved left ventricular systolic function. White count 8.0. Hemoglobin 9.1. Sodium 144. Potassium 3.5. BUN 29. Creatinine 2.48. Glucose 74. Chest x-ray reveals cardiomegaly with pulmonary vascular congestion. She remains on Lasix 80 mg IV every 12 hours. Currently in a negative 1.4L balance. The patient is seen today 07/06/2022 in follow-up in the intensive care unit. She is resting comfortably in bed. Awake and alert in no acute distress. She i s maintaining O2 saturations in the 90s on 2 L/m per nasal cannula. She's D5W at 60 ML's per hour. Chest x-ray shows improvement was some mild right lower lobe infiltrate. PICC line still directed into the neck. White count 9.0. Hemoglobin 8.8. Platelets 211. Sodium 141. Potassium 4.2. BUN 31. Creatinine 2.42. She is continued on Lasix 80 mg every 12 hours. Currently in a -1.6 L balance. Objective - Vital Signs Vital signs: Vital Signs Temp 97.7 F 07/06/22 08:00 Pulse 100 07/06/22 10:00 Resp 18 07/06/22 10:00 BP 159/114 07/06/22 10:00 Pulse Ox 98 07/06/22 10:00 FiO2 30 07/06/22 03:20 Intake & Output 07/05/22 07/06/22 07/06/22 18:59 06:59 18:59 Intake Total 1020 720 300 Output Total 1290 2215 300 Balance -270 -1495 0 Weight 171.9 kg Intake: IV 900 720 60 Dextrose 5% in Water 1, 600 720 60 000 ml @ 60 mls/hr IV . [id number] [facility] Rx#:[id number] Magnesium Sulfate-D5w Pmx 300 1 gm In Dextrose/Water 1 100ml.bag @ 100 mls/hr IVPB Q1H [facility] Rx#: [id number] Oral 120 240 Output: Urine 1290 2215 300 Other: Voiding Method Indwelling Catheter Indwelling Catheter Indwelling Catheter # Voids 1 - Exam GENERAL EXAM: Awake, alert, morbidly obese 47-year-old female, on 2 L nasal cannula alternating with BiPAP 14/6 at 40% FiO2, comfortable in no apparent distress. HEAD: Normocephalic. EYES: Normal reaction of pupils, equal size. NOSE: Clear with pink turbinates. THROAT: No erythema or exudates. NECK: No masses, no JVD. CHEST: No chest wall deformity. LUNGS: Equal air entry with crackles in the posterior bases. CVS: S1 and S2 normal with no audible murmur, regular rhythm. ABDOMEN: No hepatosplenomegaly, normal bowel sounds, no guarding or rigidity. SPINE: No scoliosis or deformity SKIN: No rashes CENTRAL NERVOUS SYSTEM: No focal deficits, tone is normal in all 4 extremities. EXTREMITIES: There is 1+ peripheral edema. No clubbing, no cyanosis. Peripheral pulses are intact. - Labs CBC & Chem 7: 07/06/22 05:22 07/06/22 05:22 Labs: Abnormal Lab Results - Last 24 Hours (Table) 07/06/22 07/06/22 Range/Units 05:22 05:22 Hgb 8.8 L (11.4-16.0) gm/dL Hct 32.7 L (34.0-46.0) % MCV 73.2 L (80.0-100.0) fL MCH 19.8 L (25.0-35.0) pg MCHC 27.0 L (31.0-37.0) g/dL RDW 20.8 H (11.5-15.5) % Nucleated RBCs 1 H (0-0) /100 WBC Chloride 108 H (98-107) mmol/L BUN 31 H (7-17) mg/dL Creatinine 2.42 H (0.52-1.04) mg/dL Assessment and Plan Assessment: Acute hypoxemic respiratory failure secondary to an acute exacerbation of diastolic congestive heart failure, cannot rule out underlying pneumonia. Pro calcitonin 0.52 Acute hypercapnic respiratory failure secondary to above History of ventilatory dependent respiratory failure Morbid obesity with obstructive sleep apnea syndrome History of coronary disease Hypertension History of DVT Anxiety History of chronic kidney disease History of SVT Nonsmoker Plan: The patient was seen and evaluated Chest x-ray, labs and medications reviewed Remains on Lasix 80 mg IV every 12 hours Stable and on 2 L of oxygen We'll continue to follow I have personally seen and examined the patient, performed the documentation and the assessment and plan as written. Number of minutes spent on the visit: 10.
[2022-07-06 11:38] LABS: Glucose,Whole Blood 95 mg/dL (70-110)
[2022-07-06] MEDS: DARBEPOETIN ALFA 60 MCG/0.3 ML SYRINGE SQ SCH (17:33)
[2022-07-06 18:30] LABS: % Iron Saturation 6.1 (12.00-45.00)
[2022-07-06 20:23] LABS: Glucose,Whole Blood 93 mg/dL (70-110)
[2022-07-07 02:06] LABS: Glucose,Whole Blood 87 mg/dL (70-110)
[2022-07-07] MEDS: IPRATROPIUM-ALBUTEROL 3 ML NEB INHALATION SCH ×6 (03:02→23:11)
--- NOTE | 2022-07-07 04:18 | PN ---
PROGRESS NOTE SUBJECTIVE: Ms. Sorto is in sinus rhythm with occasional PACs, hemodynamically stable. Her PICC line is being repositioned. OBJECTIVE: HEART: S1, S2 heard normally. Short systolic murmur noted. NECK: JVD is evident. LUNGS: Reveal improved air entry. ABDOMEN: Exam unchanged. LOWER EXTREMITIES: Exam unchanged. PLAN: Plan is to continue current medications, which include beta blockers and amlodipine. MMODL / IJN: [id number] /
--- NOTE | 2022-07-07 04:27 | PN ---
PROGRESS NOTE CHIEF COMPLAINT: Acute congestive heart failure and obesity. HISTORY OF PRESENT ILLNESS: This lady is awake and alert, but she is still very dyspneic and having difficulty moving about. Her ejection fraction is satisfactory at 55%. She is somewhat anemic with a hemoglobin of 8.8. BUN is 31 with a creatinine of 2.42. PHYSICAL EXAMINATION: VITAL SIGNS: Blood pressure 163/113 with a pulse of 84 and regular, respirations were 36. GENERAL: She is obese and she was short of breath. She is awake and alert. SKIN: Dry. LUNGS: Breath sounds are heard bilaterally. ABDOMEN: Protuberant. IMPRESSION: 1. Acute congestive heart failure. 2. Chronic congestive heart failure. 3. Morbid obesity. 4. Pulmonary hypertension. 5. Sleep apnea. 6. Pickwickian syndrome. 7. Congestive heart failure with preserved ejection fraction. PLAN: Continue with ICU management until she is stable enough to be moved out. MMODL / IJN: [id number] /
--- NOTE | 2022-07-07 05:06 | PN ---
PROGRESS NOTE CHIEF COMPLAINT: Acute congestive heart failure. HISTORY OF PRESENT ILLNESS: This lady is doing fairly well, but she is still quite dyspneic. She is still in heart failure. She denies chest pain. PHYSICAL EXAMINATION: CHEST: Breath sounds are heard bilaterally, but they are diminished due to her size. CARDIAC: Unchanged with tachycardia. ABDOMEN: Protuberant, nontender. IMPRESSION: 1. Acute on chronic congestive heart failure. 2. Congestive heart failure with preserved ejection fraction. 3. Obesity. 4. Pickwickian syndrome. PLAN: No change in program at this time. MMODL / IJN: [id number] /
--- NOTE | 2022-07-07 05:12 | PN ---
PROGRESS NOTE CHIEF COMPLAINT: Acute on chronic congestive heart failure. HISTORY OF PRESENT ILLNESS: This lady remains stable. She is awake and alert. She is still dyspneic. She is being followed by both Pulmonology and Cardiology. PHYSICAL EXAMINATION: GENERAL: She is awake, but lethargic. CHEST: Breath sounds are diminished bilaterally. CARDIAC: Normal. ABDOMEN: Protuberant. EXTREMITIES: Edematous. IMPRESSION: 1. Acute on chronic congestive heart failure. 2. Cardiomyopathy. 3. Congestive heart failure with preserved ejection fraction. PLAN: Continue with management with Pulmonology and Cardiology. MMODL / IJN: [id number] /
[2022-07-07 06:34] LABS: Anisocytosis Moderate; Basophils % (A) 0 %; Eosinophils # (A) 0.3 k/uL (0-0.7); Eosinophils % (A) 5 %; HCT 33.2 % (34.0-46.0); HGB 8.5 gm/dL (11.4-16.0); Hypochromasia Marked; Lymphocytes # (A) 0.9 k/uL (1.0-4.8); Lymphocytes % (A) 14 %; MCH 19.5 pg (25.0-35.0); MCHC 25.6 g/dL (31.0-37.0); MCV 76.3 fL (80.0-100.0); Mean Platelet Volume 8.8; Microcytosis Moderate; Monocytes # (A) 0.4 k/uL (0-1.0); Monocytes % (A) 6 %; Neutrophils # (A) 4.6 k/uL (1.3-7.7); Neutrophils % (A) 71 %; Platelet Count 216 k/uL (150-450); RBC 4.35 m/uL (3.80-5.40); RDW 20.5 % (11.5-15.5); WBC 6.5 k/uL (3.8-10.6)
[2022-07-07 06:37] LABS: Calcium 8.4 mg/dL (8.4-10.2); Potassium 3.6 mmol/L (3.5-5.1)
[2022-07-07] MEDS ORDERED: Potassium Replacement Protocol 1 EACH MISC MISCELLANE PRN (06:44)
[2022-07-07] MEDS: INSULIN ASPART (NovoLOG) 100 UNIT/ML VIAL SQ SCH ×4 (06:45→20:44)
--- NOTE | 2022-07-07 06:58 | XR ---
EXAMINATION TYPE: XR chest 1V portable DATE OF EXAM: 07/07/2022 COMPARISON: 07/06/2022 HISTORY: Shortness of breath TECHNIQUE: Single frontal view of the chest is obtained. FINDINGS: The heart remains markedly enlarged. There are bibasilar infiltrates unchanged. There is n o pneumothorax. The right PICC line tip which was previously projecting into the right internal jugular vein now dire cted inferiorly is positioned in the SVC/RA junction. The osseous structures are intact. IMPRESSION: 1. No change in the acute cardiopulmonary disease. 2. PICC line tip now repositioned in the SVC/RA junction.
[2022-07-07] MEDS ORDERED: POTASSIUM CHLORIDE ER 20 MEQ TAB.ER PO SCH (08:00)
--- NOTE | 2022-07-07 08:16 | P.PN ---
Subjective Progress Note Date: 07/07/22 Principal diagnosis: Heart failure with preserved ejection fraction This is a pleasant 47-year-old female patient with obesity and hypertension and hypertensive heart disease was admitted to the hospital was heart failure with preserved ejection fraction exacerbation complicated by hypoxic respiratory failure. Also she does have chronic kidney disease. The patient was seen this morning. Overall she is feeling better patient continues to be on 2 L oxygen. She reports no chest pain or chest discomfort. On examination she continues to have bilateral lower extremities edema and diminished breathing sounds bilaterally and she continues to be hypoxic and required oxygen. Creatinine is stable. I would advise continue IV Lasix for additional 24 hours at least and continue monitor the kidney function and electrolytes and follow-up with the patient. The pressure has been controlled on the current medical regimen. Objective - Vital Signs Vital signs: Vital Signs Temp 98.2 F 07/07/22 04:00 Pulse 85 07/07/22 08:06 Resp 15 07/07/22 07:00 BP 131/95 07/07/22 07:00 Pulse Ox 96 07/07/22 08:09 FiO2 30 07/07/22 03:03 Intake & Output 07/06/22 07/07/22 07/07/22 18:59 06:59 18:59 Intake Total 780 250 Output Total 1400 1045 Balance -620 -795 Weight 172.9 kg Intake: IV 60 Dextrose 5% in Water 1, 60 000 ml @ 60 mls/hr IV . [id number] [facility] Rx#:[id number] Oral 720 250 Output: Urine 1400 1045 Other: Voiding Method External Catheter External Catheter # Voids 0 - Constitutional General appearance: Present: no acute distress - Respiratory Respiratory: bilateral: diminished - Cardiovascular Rhythm: regular Abnormal Heart Sounds: Present: systolic murmur - Labs CBC & Chem 7: 07/07/22 06:03 07/07/22 06:03 Labs: Abnormal Lab Results - Last 24 Hours (Table) 07/06/22 07/07/22 07/07/22 Range/Units 05:22 06:03 06:03 Hgb 8.5 L (11.4-16.0) gm/dL Hct 33.2 L (34.0-46.0) % MCV 76.3 L (80.0-100.0) fL MCH 19.5 L (25.0-35.0) pg MCHC 25.6 L (31.0-37.0) g/dL RDW 20.5 H (11.5-15.5) % Lymphocytes # 0.9 L (1.0-4.8) k/uL BUN 30 H (7-17) mg/dL Creatinine 2.14 H (0.52-1.04) mg/dL Iron 22 L (50-170) ug/dL % Saturation 6.10 L (12.00-45.00) Assessment and Plan Assessment: Assessment Heart failure with preserved ejection fraction exacerbation Acute hypoxic respiratory failure secondary to the above Hypertension Chronic kidney disease Obesity Plan Continue the current medical regimen Continue IV Lasix for additional 24 hours. The patient continues to be h ypervolemic Continue monitor the kidney function and electrolytes Follow-up with the patient
[2022-07-07] MEDS: amLODIPine 5 MG TAB PO SCH (08:26)
[2022-07-07] MEDS: FUROSEMIDE 10 MG/ML 10 ML VIAL IV SCH ×2 (08:30→20:52)
[2022-07-07] MEDS: METOPROLOL TARTRATE 50 MG TAB PO SCH ×2 (08:30→20:52)
--- NOTE | 2022-07-07 10:28 | P.PN ---
Subjective Progress Note Date: 07/07/22 This is a 47-year-old female patient with a known history of morbid obesity with a BMI of 60 kg per metered square, previous ventilatory dependent respiratory failure, congestive heart failure, cardiomegaly, hypertension, osteoarthritis, obstructive sleep apnea, chronic kidney disease, anxiety. She presented here to the emergency room with complaints of increasing shortness of breath and lower extremity edema yesterday. She was initially placed on BiPAP 14/6 and 50% FiO2 and admitted to the intensive care unit for obtundation. Chest x-ray reveals cardiomegaly with bilateral lower lobe opacities suggestive of either pneumonia versus pulmonary vascular congestion with congestive heart failure. White count 11.7. Hemoglobin 10.4. Sodium 143. Potassium 3.8. I carb 23. BUN 29. Creatinine 2.36. Troponin 0.044. Pro BNP 31,300. She was initiated on Lasix 40 mg IV every 8 hours. She is seen today in consultation in the intensive care unit. Arousable but still quite lethargic. Currently on BiPAP 14/6 at 40% FiO2. Arterial blood gases revealed a PaO2 of 91, pCO2 59, pH 7.22. The patient is seen today 07/05/2022 in follow-up in the intensive care unit. She is more awake and alert today. She is currently resting comfortably in bed. She is maintaining O2 saturation 90s on 2 L/m per nasal cannula. She has been utilizing BiPAP 14/6 and 30% FiO2. She has D5W running at 60 ML's per hour. Echocardiogram revealed preserved left ventricular systolic function. White count 8.0. Hemoglobin 9.1. Sodium 144. Potassium 3.5. BUN 29. Creatinine 2.48. Glucose 74. Chest x-ray reveals cardiomegaly with pulmonary vascular congestion. She remains on Lasix 80 mg IV every 12 hours. Currently in a negative 1.4L balance. The patient is seen today 07/06/2022 in follow-up in the intensive care unit. She is resting comfortably in bed. Awake and alert in no acute distress. She i s maintaining O2 saturations in the 90s on 2 L/m per nasal cannula. She's D5W at 60 ML's per hour. Chest x-ray shows improvement was some mild right lower lobe infiltrate. PICC line still directed into the neck. White count 9.0. Hemoglobin 8.8. Platelets 211. Sodium 141. Potassium 4.2. BUN 31. Creatinine 2.42. She is continued on Lasix 80 mg every 12 hours. Currently in a -1.6 L balance. The patient is seen today 07/07/2022 in follow-up in the intensive care unit. She is awake and alert in no acute distress. Resting comfortably in bed. Maintaining O2 saturations in the 90s on 2 L/m per nasal cannula. She is alternating with BiPAP 14/6 and 30% FiO2. No IV fluids currently. Chest x-ray reveals cardiomegaly with bibasilar infiltrates. No significant change. PICC line repositioned in the SVC. White count 6.5. Hemoglobin 8.5. Platelets 216. Sodium 141. Potassium 3.6. BUN 30. Creatinine 2.14. She is continued on DuoNeb inhalations. IV diuretics. Currently in a negative 460 ML balance. Objective - Vital Signs Vital signs: Vital Signs Temp 97.6 F 07/07/22 09:00 Pulse 83 07/07/22 10:00 Resp 12 07/07/22 10:00 BP 164/113 07/07/22 10:00 Pulse Ox 96 07/07/22 08:09 FiO2 30 07/07/22 03:03 Intake & Output 07/06/22 07/07/22 07/07/22 18:59 06:59 18:59 Intake Total 780 250 410 Output Total 1400 1045 450 Balance -620 -795 -40 Weight 172.9 kg Intake: IV 60 Dextrose 5% in Water 1, 60 000 ml @ 60 mls/hr IV . [id number] [facility] Rx#:[id number] Oral 720 250 410 Output: Urine 1400 1045 450 Other: Voiding Method External Catheter External Catheter External Catheter # Voids 0 - Exam GENERAL EXAM: Awake, alert, morbidly obese 47-year-old female, on 2 L nasal cannula alternating with BiPAP 14/6 at 30% FiO2, comfortable in no apparent distress. HEAD: Normocephalic. EYES: Normal reaction of pupils, equal size. NOSE: Clear with pink turbinates. THROAT: No erythema or exudates. NECK: No masses, no JVD. CHEST: No chest wall deformity. LUNGS: Equal air entry with crackles in the posterior bases. CVS: S1 and S2 normal with no audible murmur, regular rhythm. ABDOMEN: No hepatosplenomegaly, normal bowel sounds, no guarding or rigidity. SPINE: No scoliosis or deformity SKIN: No rashes CENTRAL NERVOUS SYSTEM: No focal deficits, tone is normal in all 4 extremities. EXTREMITIES: There is 1+ peripheral edema. No clubbing, no cyanosis. Peripheral pulses are intact. - Labs CBC & Chem 7: 07/07/22 06:03 07/07/22 06:03 Labs: Abnormal Lab Results - Last 24 Hours (Table) 07/06/22 07/07/22 07/07/22 Range/Units 05:22 06:03 06:03 Hgb 8.5 L (11.4-16.0) gm/dL Hct 33.2 L (34.0-46.0) % MCV 76.3 L (80.0-100.0) fL MCH 19.5 L (25.0-35.0) pg MCHC 25.6 L (31.0-37.0) g/dL RDW 20.5 H (11.5-15.5) % Lymphocytes # 0.9 L (1.0-4.8) k/uL BUN 30 H (7-17) mg/dL Creatinine 2.14 H (0.52-1.04) mg/dL Iron 22 L (50-170) ug/dL % Saturation 6.10 L (12.00-45.00) Assessment and Plan Assessment: Acute hypoxemic respiratory failure secondary to an acute exacerbation of diastolic congestive heart failure, cannot rule out underlying pneumonia. Pro calcitonin 0.52 Acute hypercapnic respiratory failure secondary to above History of ventilatory dependent respiratory failure Morbid obesity with obstructive sleep apnea syndrome History of coronary disease Hypertension History of DVT Anxiety History of chronic kidney disease History of SVT Nonsmoker Plan: The patient was seen and evaluated Chest x-ray, labs and medications reviewed Remains on Lasix 80 mg IV every 12 hours Stable and on 2 L of oxygen Alternates with BiPAP 14/6 and 30% FiO2 Transfer to the Gen. medical floor with telemetry We'll continue to follow I have personally seen and examined the patient, performed the documentation and the assessment and plan as written. Number of minutes spent on the visit: 10.
[2022-07-07 11:08] LABS: Glucose,Whole Blood 107 mg/dL (70-110)
--- NOTE | 2022-07-07 13:03 | P.PN ---
Subjective Progress Note Date: 07/07/22 Follow-up for acute kidney injury. Urine output of 2.4 L in the last 24 hours. Objective - Vital Signs Vital signs: Vital Signs Temp 97.6 F 07/07/22 09:00 Pulse 84 07/07/22 12:33 Resp 12 07/07/22 10:00 BP 164/113 07/07/22 10:00 Pulse Ox 96 07/07/22 08:09 FiO2 30 07/07/22 03:03 Intake & Output 07/06/22 07/07/22 07/07/22 18:59 06:59 18:59 Intake Total 780 250 410 Output Total 1400 1045 450 Balance -620 -795 -40 Weight 172.9 kg Intake: IV 60 Dextrose 5% in Water 1, 60 000 ml @ 60 mls/hr IV . [id number] [facility] Rx#:[id number] Oral 720 250 410 Output: Urine 1400 1045 450 Other: Voiding Method External Catheter External Catheter External Catheter # Voids 0 - Exam No acute distress S1-S2 heard Breath sounds distant Abdomen soft Trace edema - Labs CBC & Chem 7: 07/07/22 06:03 07/07/22 06:03 Labs: Abnormal Lab Results - Last 24 Hours (Table) 07/06/22 07/07/22 07/07/22 Range/Units 05:22 06:03 06:03 Hgb 8.5 L (11.4-16.0) gm/dL Hct 33.2 L (34.0-46.0) % MCV 76.3 L (80.0-100.0) fL MCH 19.5 L (25.0-35.0) pg MCHC 25.6 L (31.0-37.0) g/dL RDW 20.5 H (11.5-15.5) % Lymphocytes # 0.9 L (1.0-4.8) k/uL BUN 30 H (7-17) mg/dL Creatinine 2.14 H (0.52-1.04) mg/dL Iron 22 L (50-170) ug/dL % Saturation 6.10 L (12.00-45.00) Assessment and Plan Assessment: #1 CK D stage IV secondary to nephrosclerosis and cardiorenal type II. Baseline creatinine 1.8-2.0 MG per DL. #2 volume overload #3 diastolic CHF with the EF of 55% #4 morbid obesity #5 anemia with chronic kidney disease #6 hypertension with chronic kidney disease Plan: #1 renal function stable around baseline. #2 currently on Lasix 80 mg IV twice a day. Consider changing to torsemide 40 mg by mouth daily at discharge. #3 add IV iron. #4 ICU care
[2022-07-07] MEDS: NITROGLYCERIN OINT 1 INCH/GM PACKET TOPICAL SCH (15:18)
[2022-07-07 16:55] LABS: Glucose,Whole Blood 100 mg/dL (70-110)
[2022-07-07 20:03] LABS: Glucose,Whole Blood 91 mg/dL (70-110)
[2022-07-08] MEDS: IPRATROPIUM-ALBUTEROL 3 ML NEB INHALATION SCH ×6 (03:23→23:43)
[2022-07-08 06:48] LABS: Glucose,Whole Blood 97 mg/dL (70-110)
[2022-07-08 06:58] LABS: Anisocytosis Moderate; HCT 34.3 % (34.0-46.0); HGB 8.8 gm/dL (11.4-16.0); Hypochromasia Marked; MCH 19.5 pg (25.0-35.0); MCHC 25.6 g/dL (31.0-37.0); MCV 76.2 fL (80.0-100.0); Mean Platelet Volume 10.3; Microcytosis Moderate; Platelet Count 238 k/uL (150-450); RDW 20.7 % (11.5-15.5)
[2022-07-08] MEDS: INSULIN ASPART (NovoLOG) 100 UNIT/ML VIAL SQ SCH ×4 (07:05→20:37)
[2022-07-08 07:22] LABS: Calcium 8.8 mg/dL (8.4-10.2); Potassium 3.8 mmol/L (3.5-5.1)
[2022-07-08] MEDS ORDERED: POTASSIUM CHLORIDE ER 20 MEQ TAB.ER PO SCH (08:30)
[2022-07-08] MEDS: SODIUM FERRIC GLUCONAT-SUCROSE 125 MG in SODIUM CHLORIDE 0.9% 100 ML IVPB SCH (08:44)
[2022-07-08] MEDS: amLODIPine 5 MG TAB PO SCH (09:05)
[2022-07-08] MEDS: FUROSEMIDE 10 MG/ML 10 ML VIAL IV SCH ×2 (09:05→20:44)
[2022-07-08] MEDS: METOPROLOL TARTRATE 50 MG TAB PO SCH ×2 (09:06→20:45)
--- NOTE | 2022-07-08 09:58 | P.PN ---
Subjective Progress Note Date: 07/08/22 Principal diagnosis: Heart failure with preserved ejection fraction This is a pleasant 47-year-old female patient with obesity and hypertension and hypertensive heart disease was admitted to the hospital was heart failure with preserved ejection fraction exacerbation complicated by hypoxic respiratory failure. Also she does have chronic kidney disease. The patient was seen this morning. Overall she is feeling better patient continues to be on 2 L oxygen. She reports no chest pain or chest discomfort. On examination she continues to have bilateral lower extremities edema and diminished breathing sounds bilaterally and she continues to be hypoxic and required oxygen. Creatinine is stable. I would advise continue IV Lasix for additional 24 hours at least and continue monitor the kidney function and electrolytes and follow-up with the patient. The pressure has been controlled on the current medical regimen. 07/08/2022 The patient was seen this morning. She continues to be on 2 L of oxygen pH continues to have mild bilateral lower is edema. She seems to be hypervolemic and she has been diuresing well on the current dose of Lasix which is 80 mg twice a day. Creatinine has been stable. I would continue the current dose of Lasix IV and continue monitor the kidney function and electrolytes and continue following up with the patient. Objective - Vital Signs Vital signs: Vital Signs Temp 97.8 F 07/08/22 08:00 Pulse 84 07/08/22 08:00 Resp 23 07/08/22 08:00 BP 152/100 07/08/22 08:00 Pulse Ox 97 07/08/22 07:21 FiO2 30 07/07/22 03:03 Intake & Output 07/07/22 07/08/22 07/08/22 18:59 06:59 18:59 Intake Total 410 380 Output Total 450 4400 Balance -40 -4020 Weight 172.9 kg Intake: Oral 410 380 Output: Urine 450 4400 Other: Voiding Method External Catheter - Constitutional General appearance: Present: no acute distress - Respiratory Respiratory: bilateral: diminished - Cardiovascular Rhythm: regular - Labs CBC & Chem 7: 07/08/22 06:32 07/08/22 06:32 Labs: Abnormal Lab Results - Last 24 Hours (Table) 07/08/22 07/08/22 Range/Units 06:32 06:32 Hgb 8.8 L (11.4-16.0) gm/dL MCV 76.2 L (80.0-100.0) fL MCH 19.5 L (25.0-35.0) pg MCHC 25.6 L (31.0-37.0) g/dL RDW 20.7 H (11.5-15.5) % Carbon Dioxide 31 H (22-30) mmol/L BUN 33 H (7-17) mg/dL Creatinine 2.23 H (0.52-1.04) mg/dL Assessment and Plan Assessment: Assessment Heart failure with preserved ejection fraction exacerbation Acute hypoxic respiratory failure secondary to the above Hypertension Chronic kidney disease Obesity Plan Continue the current medical regimen Continue IV Lasix for additional 24 hours. The patient continues to be hypervolemic Continue monitor the kidney function and electrolytes Follow-up with the patient
--- NOTE | 2022-07-08 10:35 | P.PN ---
Subjective Progress Note Date: 07/08/22 Follow-up for acute kidney injury. Urine output of 4 L in the last 24 hours. Objective - Vital Signs Vital signs: Vital Signs Temp 97.8 F 07/08/22 08:00 Pulse 84 07/08/22 08:00 Resp 23 07/08/22 08:00 BP 152/100 07/08/22 08:00 Pulse Ox 97 07/08/22 07:21 FiO2 30 07/07/22 03:03 Intake & Output 07/07/22 07/08/22 07/08/22 18:59 06:59 18:59 Intake Total 410 380 Output Total 450 4400 Balance -40 -4020 Weight 172.9 kg Intake: Oral 410 380 Output: Urine 450 4400 Other: Voiding Method External Catheter External Catheter - Exam No acute distress S1-S2 heard Breath sounds distant Abdomen soft Trace edema - Labs CBC & Chem 7: 07/08/22 06:32 07/08/22 06:32 Labs: Abnormal Lab Results - Last 24 Hours (Table) 07/08/22 07/08/22 Range/Units 06:32 06:32 Hgb 8.8 L (11.4-16.0) gm/dL MCV 76.2 L (80.0-100.0) fL MCH 19.5 L (25.0-35.0) pg MCHC 25.6 L (31.0-37.0) g/dL RDW 20.7 H (11.5-15.5) % Carbon Dioxide 31 H (22-30) mmol/L BUN 33 H (7-17) mg/dL Creatinine 2.23 H (0.52-1.04) mg/dL Assessment and Plan Assessment: #1 CK D stage IV secondary to nephrosclerosis and cardiorenal type II. Baseline creatinine 1.8-2.0 MG per DL. #2 volume overload #3 diastolic CHF with the EF of 55% #4 morbid obesity #5 anemia with chronic kidney disease #6 hypertension with chronic kidney disease Plan: #1 renal function stable around baseline. #2 currently on Lasix 80 mg IV twice a day. Consider changing to torsemide 40 mg by mouth daily at discharge. #3 on IV iron. #4 ICU care
--- NOTE | 2022-07-08 10:49 | P.PN ---
Subjective Progress Note Date: 07/08/22 Principal diagnosis: Congestive heart failure. This is a 47-year-old female patient with a known history of morbid obesity with a BMI of 60 kg per metered square, previous ventilatory dependent respiratory failure, congestive heart failure, cardiomegaly, hypertension, osteoarthritis, obstructive sleep apnea, chronic kidney disease, anxiety. She presented here to the emergency room with complaints of increasing shortness of breath and lower extremity edema yesterday. She was initially placed on BiPAP 14/6 and 50% FiO2 and admitted to the intensive care unit for obtundation. Chest x-ray reveals cardiomegaly with bilateral lower lobe opacities suggestive of either pneumonia versus pulmonary vascular congestion with congestive heart failure. White count 11.7. Hemoglobin 10.4. Sodium 143. Potassium 3.8. I carb 23. BUN 29. Creatinine 2.36. Troponin 0.044. Pro BNP 31,300. She was initiated on Lasix 40 mg IV every 8 hours. She is seen today in consultation in the intensive care unit. Arousable but still quite lethargic. Currently on BiPAP 14/6 at 40% FiO2 . Arterial blood gases revealed a PaO2 of 91, pCO2 59, pH 7.22. The patient is seen today 07/05/2022 in follow-up in the intensive care unit. She is more awake and alert today. She is currently resting comfortably in bed. She is maintaining O2 saturation 90s on 2 L/m per nasal cannula. She has been utilizing BiPAP 14/6 and 30% FiO2. She has D5W running at 60 ML's per hour. Echocardiogram revealed preserved left ventricular systolic function. White count 8.0. Hemoglobin 9.1. Sodium 144. Potassium 3.5. BUN 29. Creatinine 2.48. Glucose 74. Chest x-ray reveals cardiomegaly with pulmonary vascular congestion. She remains on Lasix 80 mg IV every 12 hours. Currently in a negative 1.4L balance. The patient is seen today 07/06/2022 in follow-up in the intensive care unit. She is resting comfortably in bed. Awake and alert in no acute distress. She is maintaining O2 saturations in the 90s on 2 L/m per nasal cannula. She's D5W at 60 ML's per hour. Chest x-ray shows improvement was some mild right lower lobe infiltrate. PICC line still directed into the neck. White count 9.0. Hemoglobin 8.8. Platelets 211. Sodium 141. Potassium 4.2. BUN 31. Creatinine 2.42. She is continued on Lasix 80 mg every 12 hours. Currently in a -1.6 L balance. The patient is seen today 07/07/2022 in follow-up in the intensive care unit. She is awake and alert in no acute distress. Resting comfortably in bed. Maintaining O2 saturations in the 90s on 2 L/m per nasal cannula. She is alternating with BiPAP 14/6 and 30% FiO2. No IV fluids currently. Chest x-ray reveals cardiomegaly with bibasilar infiltrates. No significant change. PICC line repositioned in the SVC. White count 6.5. Hemoglobin 8.5. Platelets 216. Sodium 141. Potassium 3.6. BUN 30. Creatinine 2.14. She is continued on DuoNeb inhalations. IV diuretics. Currently in a negative 460 ML balance. Progress note dated 07/08/2022. The patient is again seen today in room 253 in the ICU. She remains on 2 L of oxygen. She's not receiving any IV fluids. She apparently refused the use of BiPAP last night. She states that she just wanted to be off of it for a while, and get a rest from it. Laboratory data from today includes a white count of 7, hemoglobin 8.8, hematocrit 34.3, and a normal platelet count. Sodium 141, potassium 3.8, chlorides 103, CO2 31, anion gap 7, BUN 33, and creatinine 2.23. Microbiology is negative. Chest x-ray shows cardiomegaly, and some bi-basilar infiltrates. Objective - Vital Signs Vital signs: Vital Signs Temp 97.8 F 07/08/22 08:00 Pulse 84 07/08/22 08:00 Resp 23 07/08/22 08:00 BP 152/100 07/08/22 08:00 Pulse Ox 97 07/08/22 07:21 FiO2 30 07/07/22 03:03 Intake & Output 07/07/22 07/08/22 07/08/22 18:59 06:59 18:59 Intake Total 410 380 Output Total 450 4400 Balance -40 -4020 Weight 172.9 kg Intake: Oral 410 380 Output: Urine 450 4400 Other: Voiding Method External Catheter External Catheter - Exam No acute distress, oriented 3. Currently on 2 L. No respiratory distress, or conversational dyspnea. HEENT examination is grossly unremarkable. Neck supple. Full range of motion. No adenopathy thyromegaly or neck vein distention. Cardiovascular examination reveals regular rhythm rate. S1-S2 normal. No S3 or S4. No discernible murmur noted. Heart rate is 83 bpm. Lungs reveal mostly clear breath sounds, with some bibasilar crackles. No wheezes. No rhonchi. Saturations are 97% on 2 L. Abdomen soft bowel sounds are heard. No masses or tenderness. Extremities are intact. No cyanosis or clubbing. Mild lower extremity edema noted. Skin is without rash or lesion. Neurologic examination is brief but nonfocal. - Labs CBC & Chem 7: 07/08/22 06:32 07/08/22 06:32 Labs: Abnormal Lab Results - Last 24 Hours (Table) 07/08/22 07/08/22 Range/Units 06:32 06:32 Hgb 8.8 L (11.4-16.0) gm/dL MCV 76.2 L (80.0-100.0) fL MCH 19.5 L (25.0-35.0) pg MCHC 25.6 L (31.0-37.0) g/dL RDW 20.7 H (11.5-15.5) % Carbon Dioxide 31 H (22-30) mmol/L BUN 33 H (7-17) mg/dL Creatinine 2.23 H (0.52-1.04) mg/dL Assessment and Plan Assessment: Acute hypoxemic respiratory failure secondary to an acute exacerbation of diastolic congestive heart failure. Acute hypercapnic respiratory failure secondary to above. History of ventilatory dependent respiratory failure. Morbid obesity with obstructive sleep apnea syndrome. History of coronary disease. Hypertension. History of DVT. Anxiety. History of chronic kidney disease. History of SVT. Nonsmoker. Plan: Plan dated 07/08/2022. The patient's labs, x-rays, and medications all reviewed. The patient remains on Lasix, and oxygen at 2 L. She does use the BiPAP device at nighttime, with settings of 14/6 and 30%. She did not use of last night, as she was trying to give it a bit of a rest. The patient could be transferred out of the intensive care unit, to the cardiac stepdown unit. We will continue to follow make recommendations along the way. Prognosis is guarded. No clearcut evidence of infection at this time. Time with Patient: Less than 30
[2022-07-08 11:29] LABS: Glucose,Whole Blood 97 mg/dL (70-110)
--- NOTE | 2022-07-08 12:59 | PN ---
PROGRESS NOTE CHIEF COMPLAINT: Congestive heart failure. HISTORY OF PRESENT ILLNESS: This lady continues to struggle. She is still dyspneic. Blood pressure is elevated and renal function has deteriorated. BUN is 30 with a creatinine improved to 2.14. PHYSICAL EXAMINATION: VITAL SIGNS: Blood pressure 164/113. LUNGS: Breath sounds are heard anteriorly. CARDIAC: Exam is normal. ABDOMEN: Soft. IMPRESSION: 1. Congestive heart failure with preserved ejection fraction. 2. Morbid obesity. 3. Pickwickian syndrome. 4. Sleep apnea. 5. Renal failure. PLAN: Continue with current management in ICU until she is stable enough to be moved to a regular floor. MMODL / IJN: [id number] /
[2022-07-08 17:06] LABS: Glucose,Whole Blood 77 mg/dL (70-110)
[2022-07-08 20:38] LABS: Glucose,Whole Blood 101 mg/dL (70-110)
[2022-07-09] MEDS: IPRATROPIUM-ALBUTEROL 3 ML NEB INHALATION SCH ×5 (02:49→20:02)
[2022-07-09 06:30] LABS: Glucose,Whole Blood 81 mg/dL (70-110)
[2022-07-09] MEDS: INSULIN ASPART (NovoLOG) 100 UNIT/ML VIAL SQ SCH ×4 (06:33→21:09)
[2022-07-09 08:03] LABS: Calcium 8.8 mg/dL (8.4-10.2); Magnesium 1.7 mg/dL (1.6-2.3); Potassium 3.8 mmol/L (3.5-5.1)
--- NOTE | 2022-07-09 08:31 | P.PN ---
Subjective Progress Note Date: 07/09/22 This is a morbidly obese 47-year-old female patient was currently in the intensive care unit, hospitalized for shortness of breath, multifactorial, including a component of CHF and fluid. She is known to have hypertension, obstructive sleep apnea, chronic kidney disease. She also has chronic hypoxic and hypercapnic respiratory failure, supported with BiPAP. Her condition has been optimized and the patient is currently on oxygen at 2 L. Chest x-ray on 07/07/2022 showed significant cardiomegaly and significant pulmonary vascular congestion. No follow-up chest x-ray has been obtained since. The patient otherwise seems to have responded adequately to the treatment offered. The patient is currently on Lasix 80 mg IV every 12 hours. The patient's is producing adequate amount of urine output and the fluid balance over the past 24 hours has been -4 L at least. The blood work from today shows improvement of creatinine which is TO 0.03 and a sodium level is 143 with a bicarb of 36. Yesterday's creatinine was at 2.2. The highest creatinine level during this current admission was 2.48. The patient is also chronically anemic. Hemoglobin is at 8.8. Follow-up levels from today are still pending. The most recent echocardiogram that has been obtained on this patient is from 11/22/2021 and it showed preserved LV function with an ejection fraction of 45-50%. There was a technically difficult study as the patient is morbidly obese. Otherwise, the patient is awake and alert and she is communicating. The patient has declined using the BiPAP machine. There is obviously an issue with compliancy with this patient. I have seen the patient on previous occasions. She has been here in the intensive care unit. Her go over these include stage III kidney disease, obstructive sleep apnea and the patient's is supposed to be on a CPAP pressure of 16 cm of water, previous history of DVT, hypertension, generalized anxiety, previous history of upper GI bleed and previous history of chronic anemia. Objective - Vital Signs Vital signs: Vital Signs Temp 98.1 F 07/09/22 03:57 Pulse 77 07/09/22 07:51 Resp 24 07/09/22 03:57 BP 141/100 07/09/22 03:57 Pulse Ox 98 07/09/22 07:40 FiO2 30 07/07/22 03:03 Intake & Output 07/08/22 07/09/22 07/09/22 18:59 06:59 18:59 Output Total 2581 589 2820 Balance -1700 -300 -1600 Weight 171 kg Output: Urine 1988 162 7507 Other: Voiding Method External Catheter External Catheter # Voids 3 - Exam No acute distress, oriented 3. Currently on 2 L. No respiratory distress, or conversational dyspnea. HEENT examination is grossly unremarkable. Neck supple. Full range of motion. No adenopathy thyromegaly or neck vein distention. Cardiovascular examination reveals regular rhythm rate. S1-S2 normal. No S3 or S4. No discernible murmur noted. Heart rate is 83 bpm. Lungs reveal mostly clear breath sounds, with some bibasilar crackles. No wheezes. No rhonchi. Saturations are 97% on 2 L. Abdomen soft bowel sounds are heard. No masses or tenderness. Extremities are intact. No cyanosis or clubbing. Mild lower extremity edema noted. Skin is without rash or lesion. Neurologic examination is brief but nonfocal. - Labs CBC & Chem 7: 07/08/22 06:32 07/09/22 07:15 Labs: Abnormal Lab Results - Last 24 Hours (Table) 07/09/22 Range/Units 07:15 Carbon Dioxide 36 H (22-30) mmol/L BUN 34 H (7-17) mg/dL Creatinine 2.03 H (0.52-1.04) mg/dL Assessment and Plan Plan: Acute hypoxemic respiratory failure secondary to an acute exacerbation of diastolic congestive heart failure.the patient is currently on 2 L of oxygen nasal cannula. The patient is not using her BiPAP on a regular basis. The patient has a component of chronic hypoxic respiratory failure due to morbid obesity, obstructive sleep apnea and obesity hypoventilation syndrome. She is a chronic CO2 retainer in addition. Her chest x-ray from 2 days back is still showing massive cardiomegaly with pulmonary vessel congestion. The patient is a spyglass due to Lasix 80 mg IV every 12 hours and she has been in a negative f luid balance. Acute hypercapnic respiratory failure secondary to above. History of ventilatory dependent respiratory failure. Morbid obesity with obstructive sleep apnea syndrome. History of coronary disease. Hypertension. History of DVT. Anxiety. History of chronic kidney disease. History of SVT. Nonsmoker. chronic anemia, hemoglobin of 8.8 and the patient is receiving IV iron infusion s. Plan: Clinically the patient is improving and she is not having any significant shortness of breath Currently she is on oxygen at 2 L nasal cannula She has a BiPAP at the bedside at pressure 14/6 cm of water She is currently on IV Lasix 80 mg IV every 12 hours Her renal function is improving and the patient is making excellent urine output I will going to check if the patient has any form of a device at home. I'm also going to contact the sleep center of the patient's has had a recent sleep study. 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 Back then, she is to weigh around3 62 pounds.
[2022-07-09] MEDS ORDERED: POTASSIUM CHLORIDE ER 20 MEQ TAB.ER PO SCH (09:00)
--- NOTE | 2022-07-09 09:15 | P.PN ---
Subjective Patient is seen in follow-up for acute kidney injury and chronic kidney disease. Renal function improving. Oral intake better. Denies chest pain or shortness of breath. On 2 L nasal cannula. On IV Lasix. Nonoliguric. Vital signs are stable. General: Awake. No acute distress. HEENT: Head exam is unremarkable. LUNGS: Breath sounds decreased. HEART: Rate and Rhythm are regular. ABDOMEN: Soft, obese. EXTREMITITES: Trace edema. Objective - Vital Signs Vital signs: Vital Signs Temp 98.1 F 07/09/22 03:57 Pulse 77 07/09/22 07:51 Resp 24 07/09/22 03:57 BP 141/100 07/09/22 03:57 Pulse Ox 98 07/09/22 07:40 FiO2 30 07/07/22 03:03 Intake & Output 07/08/22 07/09/22 07/09/22 18:59 06:59 18:59 Output Total 2962 541 9838 Balance -1700 -300 -1600 Weight 171 kg Output: Urine 4570 721 3529 Other: Voiding Method External Catheter External Catheter # Voids 3 - Labs CBC & Chem 7: 07/08/22 06:32 07/09/22 07:15 Labs: Abnormal Lab Results - Last 24 Hours (Table) 07/09/22 Range/Units 07:15 Carbon Dioxide 36 H (22-30) mmol/L BUN 34 H (7-17) mg/dL Creatinine 2.03 H (0.52-1.04) mg/dL Assessment and Plan Plan: Assessment: 1. Acute kidney injury mostly prerenal secondary to cardiorenal syndrome. Renal function improving. 2. Chronic kidney disease stage IV secondary to nephrosclerosis and cardiorenal syndrome with baseline creatinine 1.8-2. 3. Acute on chronic diastolic CHF. 4. Volume overload. Improved with diuresis. 5. Hypertension with chronic kidney disease. 6. Anemia of chronic kidney disease. Iron deficiency noted. On Aranesp. Plan: Stop IV Lasix. Start torsemide 40 mg once daily. Replace potassium and magnesium per protocol. Continue to monitor renal function and urine output. Avoid nephrotoxins.
[2022-07-09] MEDS: FUROSEMIDE 10 MG/ML 10 ML VIAL IV SCH (09:22)
[2022-07-09] MEDS: SODIUM FERRIC GLUCONAT-SUCROSE 125 MG in SODIUM CHLORIDE 0.9% 100 ML IVPB SCH (09:24)
[2022-07-09] MEDS: METOPROLOL TARTRATE 50 MG TAB PO SCH ×2 (09:41→21:12)
[2022-07-09] MEDS: TORSEMIDE 20 MG TAB PO SCH (09:44)
--- NOTE | 2022-07-09 09:52 | P.PN ---
Subjective Progress Note Date: 07/09/22 The patient is a 47-year-old female currently admitted to the hospital with CHF and COPD exacerbation. The patient is currently being followed by both nephrology for progression and kidney disease as well as pulmonology for COPD/BiPAP use. The patient was interviewed and examined lying comfortably in bed. She states she is breathing well, lying flat. No chest pain or chest pressure. She states she has not ambulated from her bed, therefore she cannot assess for exertional symptoms. GENERAL: Well-appearing, obese female in no acute distress. NECK: Supple without JVD or thyromegaly. LUNGS: Breath sounds diminished to auscultation bilaterally. Respiration equal and unlabored. No wheezes, rales or rhonchi. HEART: Regular rate and rhythm without murmurs, rubs or gallops. S1 and S2 heard. EXTREMITIES: Limited range of motion, mild generalized edema. No clubbing or cyanosis. Peripheral pulses intact and strong. VITALS: Blood pressure 141/100, pulse 77, respiratory rate 24, SpO2 99% on 2 L nasal cannula TELEMETRY: Sinus rhythm overnight LABS: Sodium 143, potassium 3.8, BUN 34, creatinine 2.03, magnesium 1.7 IMPRESSION: Acute diastolic heart failure Severe pulmonary hypertension Chronic kidney disease, stage IV History of uncontrolled hypertension History of chronic anemia PLAN: Wean furosemide as tolerated Discontinue amlodipine and start Procardia Consider maximizing metoprolol further based on heart rate Further recommendations based on clinical course I am dictating on behalf of Dr Crow Isbell's history/physical and assessment/plan. Objective - Vital Signs Vital signs: Vital Signs Temp 98.1 F 07/09/22 03:57 Pulse 77 07/09/22 07:51 Resp 24 07/09/22 03:57 BP 141/100 07/09/22 03:57 Pulse Ox 98 07/09/22 07:40 FiO2 30 07/07/22 03:03 Intake & Output 07/08/22 07/09/22 07/09/22 18:59 06:59 18:59 Output Total 1828 001 1542 Balance -1700 -300 -1600 Weight 171 kg Output: Urine 1074 143 4471 Other: Voiding Method External Catheter External Catheter # Voids 3 - Labs CBC & Chem 7: 07/08/22 06:32 07/09/22 07:15 Labs: Abnormal Lab Results - Last 24 Hours (Table) 07/09/22 Range/Units 07:15 Carbon Dioxide 36 H (22-30) mmol/L BUN 34 H (7-17) mg/dL Creatinine 2.03 H (0.52-1.04) mg/dL
[2022-07-09] MEDS: amLODIPine 5 MG TAB PO SCH (10:52)
[2022-07-09 11:46] LABS: Glucose,Whole Blood 75 mg/dL (70-110)
[2022-07-09 17:06] LABS: Glucose,Whole Blood 103 mg/dL (70-110)
[2022-07-09 20:00] LABS: Glucose,Whole Blood 103 mg/dL (70-110)
[2022-07-09] MEDS ORDERED: IPRATROPIUM-ALBUTEROL 3 ML NEB INHALATION PRN (20:07)
[2022-07-10 06:08] LABS: Glucose,Whole Blood 93 mg/dL (70-110)
[2022-07-10] MEDS: INSULIN ASPART (NovoLOG) 100 UNIT/ML VIAL SQ SCH ×4 (06:16→21:01)
[2022-07-10] MEDS: IPRATROPIUM-ALBUTEROL 3 ML NEB INHALATION SCH ×4 (07:45→19:58)
[2022-07-10] MEDS: TORSEMIDE 20 MG TAB PO SCH (08:48)
[2022-07-10] MEDS: METOPROLOL TARTRATE 50 MG TAB PO SCH ×2 (08:49→21:03)
[2022-07-10] MEDS: amLODIPine 5 MG TAB PO SCH (08:49)
[2022-07-10 08:53] LABS: Calcium 9.2 mg/dL (8.4-10.2); Potassium 3.8 mmol/L (3.5-5.1)
[2022-07-10] MEDS: SODIUM FERRIC GLUCONAT-SUCROSE 125 MG in SODIUM CHLORIDE 0.9% 100 ML IVPB SCH (09:37)
[2022-07-10] MEDS ORDERED: POTASSIUM CHLORIDE ER 20 MEQ TAB.ER PO STA (10:33)
--- NOTE | 2022-07-10 10:34 | P.PN ---
Subjective Patient is seen in follow-up for acute kidney injury and chronic kidney disease. Renal function improving. Oral intake better. Denies chest pain or shortness of breath. On room air currently. On oral torsemide. Nonoliguric. Vital signs are stable. General: Awake. No acute distress. HEENT: Head exam is unremarkable. LUNGS: Breath sounds decreased. HEART: Rate and Rhythm are regular. ABDOMEN: Soft, obese. EXTREMITITES: Trace edema. Objective - Vital Signs Vital signs: Vital Signs Temp 97.8 F 07/10/22 08:00 Pulse 91 07/10/22 08:00 Resp 18 07/10/22 08:00 BP 124/82 07/10/22 08:00 Pulse Ox 100 07/10/22 08:00 FiO2 30 07/07/22 03:03 Intake & Output 07/09/22 07/10/22 07/10/22 18:59 06:59 18:59 Intake Total 360 480 Output Total 1600 2900 Balance -1240 -2420 Weight 162.074 kg Intake: Oral 360 480 Output: Urine 1600 2900 Other: Voiding Method External Catheter External Catheter External Catheter - Labs CBC & Chem 7: 07/08/22 06:32 07/10/22 08:08 Labs: Abnormal Lab Results - Last 24 Hours (Table) 07/10/22 Range/Units 08:08 Carbon Dioxide 36 H (22-30) mmol/L BUN 34 H (7-17) mg/dL Creatinine 1.84 H (0.52-1.04) mg/dL Assessment and Plan Plan: Assessment: 1. Acute kidney injury mostly prerenal secondary to cardiorenal syndrome. Renal function improving. Creatinine 1.84 today. 2. Chronic kidney disease stage IV secondary to nephrosclerosis and cardiorenal syndrome with baseline creatinine 1.8-2. 3. Acute on chronic diastolic CHF. 4. Volume overload. Improved with diuresis. 5. Hypertension with chronic kidney disease. Controlled. 6. Anemia of chronic kidney disease. Iron deficiency noted. On Aranesp. Plan: Maintain torsemide 40 mg once daily. Replace potassium and magnesium. Continue to monitor renal function and urine output. Avoid nephrotoxins. Maintain IV iron.
[2022-07-10 10:47] LABS: Glucose,Whole Blood 96 mg/dL (70-110)
--- NOTE | 2022-07-10 11:08 | PN ---
PROGRESS NOTE CHIEF COMPLAINT: Congestive heart failure. HISTORY OF PRESENT ILLNESS: This lady is doing fairly well. Vital signs are stable, and she is not having significant amount of chest pain or shortness of breath at this time. Her weight continues to be her biggest problem. PHYSICAL EXAMINATION: CHEST: Breath sounds are heard bilaterally. CARDIAC: Normal. ABDOMEN: Protuberant. IMPRESSION: 1. Acute congestive heart failure. 2. Chronic congestive heart failure. 3. Cardiomyopathy. 4. Sleep apnea. 5. Pickwickian syndrome. 6. Renal failure. PLAN: Continue with current management and attempts of increasing activity. Prognosis is poor. MMODL / IJN: [id number] /
--- NOTE | 2022-07-10 11:54 | PN ---
PROGRESS NOTE CHIEF COMPLAINT: Congestive heart failure. HISTORY OF PRESENT ILLNESS: This lady remains in the ICU. She is slowly improving. Renal function is stabilizing. She has had no chest pain. PHYSICAL EXAMINATION: CHEST: Reveals breath sounds on both sides. Difficult to determine if there are rales or not. CARDIAC: Demonstrates what sounds like sinus tachycardia. ABDOMEN: Soft and nontender. IMPRESSION: 1. Acute congestive heart failure. 2. Chronic congestive heart failure, with preserved ejection fraction. 3. Obesity. 4. Sleep apnea. 5. Pickwickian syndrome. PLAN: Continue efforts to improve her cardiac and pulmonary function, which will be difficult due to her obesity. MMODL / IJN: [id number] /
--- NOTE | 2022-07-10 12:31 | P.PN ---
Subjective The patient is a 47-year-old female with a past medical history of hypertension, chronic heart failure with preserved ejection fraction, severe pulmonary hypertension, chronic kidney disease, obstructive sleep apnea. She is currently admitted to the hospital with CHF and COPD exacerbation. The patient is currently being followed by both nephrology for progression and kidney disease as well as pulmonology for COPD/BiPAP use. 07/10 The patient was interviewed and examined lying comfortably in bed. She states she is breathing well, lying flat. No chest pain or chest pressure. She denies any shortness of breath. She was transferred out of the intensive care unit yesterday. She is currently 100% on 2 L nasal cannula. Blood pressure is improved 124/82, heart rate 91, afebrile. GENERAL: Well-appearing, obese female in no acute distress. NECK: Supple without JVD or thyromegaly. LUNGS: Breath sounds diminished to auscultation bilaterally. Respiration equal and unlabored. No wheezes, rales or rhonchi. HEART: Regular rate and rhythm without murmurs, rubs or gallops. S1 and S2 heard. EXTREMITIES: Limited range of motion, mild generalized edema. No clubbing or cyanosis. Peripheral pulses intact and strong. LABS: Sodium 142, potassium 3.8, BUN 34, serum creatinine 1.84, magnesium 1.7 IMPRESSION: Acute heart failure with preserved ejection fraction. Severe pulmonary hypertension Chronic kidney disease, stage IV History of uncontrolled hypertension History of chronic anemia PLAN: Diuretics per nephrology Will continue current medical therapy with amlodipine, and metoprolol Patient is improving and is stable. No further changes from a cardiology perspective. We will follow the patient has stated. Please reconsult if needed. Follow up outpatient with Dr. May. Nurse practitioner note has been reviewed by physician. Signing provider agrees with the documented findings, assessment, and plan of care. Objective - Vital Signs Vital signs: Vital Signs Temp 97.8 F 07/10/22 08:00 Pulse 91 07/10/22 08:00 Resp 18 07/10/22 08:00 BP 124/82 07/10/22 08:00 Pulse Ox 100 07/10/22 08:00 FiO2 30 07/07/22 03:03 Intake & Output 07/09/22 07/10/22 07/10/22 18:59 06:59 18:59 Intake Total 360 480 Output Total 1600 2900 Balance -1240 -5450 Weight 162.074 kg Intake: Oral 360 480 Output: Urine 1600 2900 Other: Voiding Method External Catheter External Catheter External Catheter - Labs CBC & Chem 7: 07/08/22 06:32 07/10/22 08:08 Labs: Abnormal Lab Results - Last 24 Hours (Table) 07/10/22 Range/Units 08:08 Carbon Dioxide 36 H (22-30) mmol/L BUN 34 H (7-17) mg/dL Creatinine 1.84 H (0.52-1.04) mg/dL
--- NOTE | 2022-07-10 12:44 | P.PN ---
Subjective Progress Note Date: 07/10/22 This is a morbidly obese 47-year-old female patient was currently in the intensive care unit, hospitalized for shortness of breath, multifactorial, including a component of CHF and fluid. She is known to have hypertension, obstructive sleep apnea, chronic kidney disease. She also has chronic hypoxic and hypercapnic respiratory failure, supported with BiPAP. Her condition has been optimized and the patient is currently on oxygen at 2 L. Chest x-ray on 07/07/2022 showed significant cardiomegaly and significant pulmonary vascular congestion. No follow-up chest x-ray has been obtained since. The patient otherwise seems to have responded adequately to the treatment offered. The patient is currently on Lasix 80 mg IV every 12 hours. The patient's is producing adequate amount of urine output and the fluid balance over the past 24 hours has been -4 L at least. The blood work from today shows improvement of creatinine which is TO 0.03 and a sodium level is 143 with a bicarb of 36. Yesterday's creatinine was at 2.2. The highest creatinine level during this current admission was 2.48. The patient is also chronically anemic. Hemoglobin is at 8.8. Follow-up levels from today are still pending. The most recent echocardiogram that has been obtained on this patient is from 11/22/2021 and it showed preserved LV function with an ejection fraction of 45-50%. There was a technically difficult study as the patient is morbidly obese. Otherwise, the patient is awake and alert and she is communicating. The patient has declined using the BiPAP machine. There is obviously an issue with compliancy with this patient. I have seen the patient on previous occasions. She has been here in the intensive care unit. Her go over these include stage III kidney disease, obstructive sleep apnea and the patient's is supposed to be on a CPAP pressure of 16 cm of water, previous history of DVT, hypertension, generalized anxiety, previous history of upper GI bleed and previous history of chronic anemia. Currently 2021, Ankita is being seen on the medical floor. She got transferred out of the intensive care unit. She is morbidly obese with a BMI of 56. She also has NIR, OHS, and chronic shortness of breath related to the same and CHF with diastolic heart failure. The patient is doing well for now. Her laboratory ejection fraction is 45%. She is using the BiPAP overnight and she has been adequately diuresed. No major edema lower extremities bilaterally. The patient has stage III chronic kidney disease, hypertension, previous history of DVT, previous history of GI bleed was chronic anemia along with her obstructive sleep apnea. On today's evaluation, the patient is on room air oxygen pH is resting comfortably in bed. No complaints for now. No signs of any CO2 narcosis. Her fluids balance is -2 L and she has had intolerance another 3.5 L negative fluid balance over the next 24 hours. The patient's BUN is at 34 with a creatinine of 1.8 and sodium levels of 142 and a potassium level of 3.8. Otherwise, the patient remains on Demadex 40 mg by mouth daily. No ot her changes in her medications since yesterday. She is completing a three-day course of IV iron. Objective - Vital Signs Vital signs: Vital Signs Temp 97.8 F 07/10/22 08:00 Pulse 91 07/10/22 08:00 Resp 18 07/10/22 08:00 BP 124/82 07/10/22 08:00 Pulse Ox 100 07/10/22 08:00 FiO2 30 07/07/22 03:03 Intake & Output 07/09/22 07/10/22 07/10/22 18:59 06:59 18:59 Intake Total 360 480 Output Total 1600 2900 Balance -1240 -2420 Weight 162.074 kg Intake: Oral 360 480 Output: Urine 1600 2900 Other: Voiding Method External Catheter External Catheter External Catheter - Exam No acute distress, oriented 3. Currently on 2 L. No respiratory distress, or conversational dyspnea. HEENT examination is grossly unremarkable. Neck supple. Full range of motion. No adenopathy thyromegaly or neck vein distention. Cardiovascular examination reveals regular rhythm rate. S1-S2 normal. No S3 or S4. No discernible murmur noted. Heart rate is 83 bpm. Lungs reveal mostly clear breath sounds, with some bibasilar crackles. No wheezes. No rhonchi. Saturations are 97% on 2 L. Abdomen soft bowel sounds are heard. No masses or tenderness. Extremities are intact. No cyanosis or clubbing. Mild lower extremity edema noted. Skin is without rash or lesion. Neurologic examination is brief but nonfocal. - Labs CBC & Chem 7: 07/08/22 06:32 07/10/22 08:08 Labs: Abnormal Lab Results - Last 24 Hours (Table) 07/10/22 Range/Units 08:08 Carbon Dioxide 36 H (22-30) mmol/L BUN 34 H (7-17) mg/dL Creatinine 1.84 H (0.52-1.04) mg/dL Assessment and Plan Plan: Acute hypoxemic respiratory failure secondary to an acute exacerbation of diastolic congestive heart failure.the patient is currently on 2 L of oxygen nasal cannula. The patient is not using her BiPAP on a regular basis. The patient has a component of chronic hypoxic respiratory failure due to morbid obesity, obstructive sleep apnea and obesity hypoventilation syndrome. She is a chronic CO2 retainer in addition. Her chest x-ray from 2 days back is still showing massive cardiomegaly with pulmonary vessel congestion. The patient is a fluid bolus and the patient was taken off the IV Lasix and she was placed on Demadex 40 mg by mouth daily. She is producing excellent urine output. No signs of any fluid overload. Acute hypercapnic respiratory failure secondary to above. History of ventilatory dependent respiratory failure. Morbid obesity with obstructive sleep apnea syndrome. History of coronary disease. Hypertension. History of DVT. Anxiety. History of chronic kidney disease. History of SVT. Nonsmoker. chronic anemia, hemoglobin of 8.8 and the patient is receiving IV iron infusions. Plan: Clinically the patient is improving and she is not having any significant shortness of breath Currently she is on oxygen at 2 L nasal cannula and she was switched to room air oxygen She has a BiPAP at the bedside at pressure 14/6 cm of water IV Lasix was discontinued and the patient was placed on oral Demadex Her renal function is improving and the patient is making excellent urine output, creatinine is also improved I will going to check if the patient has any form of a device at home. I'm also going to contact the sleep center of the patient's has had a recent sleep study. Based on my available information, the patient's sleep evaluation was done in 2018 and at that time the patient had severe NIR with AHI 45 and this was confirmed by polysomnogram and following that the patient was titrated to a CPAP pressure of 16 cm of water in addition to oxygen 2 L/m nasal cannula. Back then, she is to weigh around3 62 pounds.
[2022-07-10] MEDS: MAGNESIUM OXIDE 400 MG TAB PO SCH (12:50)
[2022-07-10 13:36] VITALS: BMI 55.9
[2022-07-10 16:15] LABS: Glucose,Whole Blood 105 mg/dL (70-110)
[2022-07-10 20:51] LABS: Glucose,Whole Blood 94 mg/dL (70-110)
[2022-07-11 07:11] LABS: Glucose,Whole Blood 98 mg/dL (70-110)
[2022-07-11] MEDS: IPRATROPIUM-ALBUTEROL 3 ML NEB INHALATION SCH ×4 (07:51→20:34)
--- NOTE | 2022-07-11 07:57 | PN ---
PROGRESS NOTE CHIEF COMPLAINT: Congestive heart failure. HISTORY OF PRESENT ILLNESS: This lady states that she is feeling better. She is less short of breath. She continues to be a management problem largely because of her weight. Kidney function reveals a BUN of 34 instead and creatinine of 1.84. PHYSICAL EXAMINATION: CHEST: Demonstrates decreased breath sounds throughout. They are heard on both sides. CARDIAC: Exam is unchanged. ABDOMEN: Protuberant, soft, and nontender. IMPRESSION: 1. Acute congestive heart failure. 2. Chronic congestive heart failure. 3. Cardiomyopathy. 4. Pickwickian syndrome. 5. Sleep apnea. 6. Morbid obesity. 7. Renal failure. PLAN: Continue supportive efforts with hopes that she will be able to return home. MMODL / IJN: [id number] /
[2022-07-11] MEDS: INSULIN ASPART (NovoLOG) 100 UNIT/ML VIAL SQ SCH ×4 (09:37→20:15)
[2022-07-11] MEDS: METOPROLOL TARTRATE 50 MG TAB PO SCH ×2 (09:42→20:18)
[2022-07-11] MEDS: MAGNESIUM OXIDE 400 MG TAB PO SCH (09:42)
[2022-07-11] MEDS: SODIUM FERRIC GLUCONAT-SUCROSE 125 MG in SODIUM CHLORIDE 0.9% 100 ML IVPB SCH (09:42)
[2022-07-11] MEDS: amLODIPine 5 MG TAB PO SCH (09:42)
[2022-07-11] MEDS: TORSEMIDE 20 MG TAB PO SCH (09:42)
--- NOTE | 2022-07-11 11:47 | P.PN ---
Subjective Patient is seen in follow-up for acute kidney injury and chronic kidney disease. Renal function improved. Oral intake better. Denies chest pain or shortness of breath. On 3 L nasal cannula. On oral torsemide. Nonoliguric. No active complaints. Vital signs are stable. General: Awake. No acute distress. HEENT: Head exam is unremarkable. LUNGS: Breath sounds decreased. HEART: Rate and Rhythm are regular. ABDOMEN: Soft, obese. EXTREMITITES: Trace edema. Objective - Vital Signs Vital signs: Vital Signs Temp 98.2 F 07/11/22 04:00 Pulse 74 07/11/22 11:39 Resp 18 07/11/22 04:00 BP 100/64 07/11/22 04:00 Pulse Ox 92 L 07/11/22 04:00 FiO2 30 07/07/22 03:03 Intake & Output 07/10/22 07/11/22 07/11/22 18:59 06:59 18:59 Intake Total 100 118 Output Total 1200 1150 Balance -1100 -1150 118 Weight 162.074 kg 161.025 kg Intake: Intake, IV Titration 100 Amount Sodium Ferric Gluconat- 100 Sucrose 125 mg In Sodium Chloride 0.9% 100 ml @ 100 mls/hr IVPB DAILY [facility] Rx#:[id number] Oral 118 Output: Urine 1200 1150 Other: Voiding Method External Catheter External Catheter # Bowel Movements 1 - Labs CBC & Chem 7: 07/08/22 06:32 07/10/22 08:08 Assessment and Plan Plan: Assessment: 1. Acute kidney injury mostly prerenal secondary to cardiorenal syndrome. Renal function improving. Creatinine 1.84 yesterday. 2. Chronic kidney disease stage IV secondary to nephrosclerosis and cardiorenal syndrome with baseline creatinine 1.8-2. 3. Acute on chronic diastolic CHF. 4. Volume overload. Improved with diuresis. 5. Hypertension with chronic kidney disease. Controlled. 6. Anemia of chronic kidney disease. Iron deficiency noted. On Aranesp. Plan: Maintain torsemide 40 mg once daily. Continue to monitor renal function and urine output. Avoid nephrotoxins. Maintain IV iron. Morning labs pending.
[2022-07-11 11:49] LABS: Glucose,Whole Blood 84 mg/dL (70-110)
[2022-07-11 12:21] LABS: Calcium 9.2 mg/dL (8.4-10.2); Magnesium 1.7 mg/dL (1.6-2.3); Potassium 3.9 mmol/L (3.5-5.1)
--- NOTE | 2022-07-11 12:44 | P.PN ---
Subjective Progress Note Date: 07/11/22 This is a morbidly obese 47-year-old female patient was currently in the intensive care unit, hospitalized for shortness of breath, multifactorial, including a component of CHF and fluid. She is known to have hypertension, obstructive sleep apnea, chronic kidney disease. She also has chronic hypoxic and hypercapnic respiratory failure, supported with BiPAP. Her condition has been optimized and the patient is currently on oxygen at 2 L. Chest x-ray on 07/07/2022 showed significant cardiomegaly and significant pulmonary vascular congestion. No follow-up chest x-ray has been obtained since. The patient otherwise seems to have responded adequately to the treatment offered. The patient is currently on Lasix 80 mg IV every 12 hours. The patient's is producing adequate amount of urine output and the fluid balance over the past 24 hours has been -4 L at least. The blood work from today shows improvement of creatinine which is TO 0.03 and a sodium level is 143 with a bicarb of 36. Yesterday's creatinine was at 2.2. The highest creatinine level during this current admission was 2.48. The patient is also chronically anemic. Hemoglobin is at 8.8. Follow-up levels from today are still pending. The most recent echocardiogram that has been obtained on this patient is from 11/22/2021 and it showed preserved LV function with an ejection fraction of 45-50%. There was a technically difficult study as the patient is morbidly obese. Otherwise, the patient is awake and alert and she is communicating. The patient has declined using the BiPAP machine. There is obviously an issue with compliancy with this patient. I have seen the patient on previous occasions. She has been here in the intensive care unit. Her go over these include stage III kidney disease, obstructive sleep apnea and the patient's is supposed to be on a CPAP pressure of 16 cm of water, previous history of DVT, hypertension, generalized anxiety, previous history of upper GI bleed and previous history of chronic anemia. Currently 2021, Ankita is being seen on the medical floor. She got transferred out of the intensive care unit. She is morbidly obese with a BMI of 56. She also has NIR, OHS, and chronic shortness of breath related to the same and CHF with diastolic heart failure. The patient is doing well for now. Her laboratory ejection fraction is 45%. She is using the BiPAP overnight and she has been adequately diuresed. No major edema lower extremities bilaterally. The patient has stage III chronic kidney disease, hypertension, previous history of DVT, previous history of GI bleed was chronic anemia along with her obstructive sleep apnea. On today's evaluation, the patient is on room air oxygen pH is resting comfortably in bed. No complaints for now. No signs of any CO2 narcosis. Her fluids balance is -2 L and she has had intolerance another 3.5 L negative fluid balance over the next 24 hours. The patient's BUN is at 34 with a creatinine of 1.8 and sodium levels of 142 and a potassium level of 3.8. Otherwise, the patient remains on Demadex 40 mg by mouth daily. No ot her changes in her medications since yesterday. She is completing a three-day course of IV iron. 07/11/2022, patient is being seen for a follow-up. The patient is currently on 3 L of oxygen nasal cannula with a pulse ox of 94%. Using the BiPAP overnight. She continues to be diuresed and the patient is currently on oral Demadex 40 mg by mouth daily. Her BUN is at 35 with a creatinine of 2.1, slightly worse compared to yesterday and esomeprazole 41 with a potassium level of 3.9. She has been in a negative fluid balance as the patient was being diuresed. Over the past 24 hours, she achieved another 3.6 L of negative fluid balance and she's had it for another negative fluid balance of at least 2 L over the next 24 hours. I am going to work on getting this patient in the BiPAP machine and outpatient basis. She has a case of severe obstructive sleep apnea and she has been tested back in 2018 and diagnosed reportedly. Nevertheless, the patient states that she has not been treated. Objective - Vital Signs Vital signs: Vital Signs Temp 98.2 F 07/11/22 04:00 Pulse 76 07/11/22 11:50 Resp 16 07/11/22 09:30 BP 130/66 07/11/22 09:30 Pulse Ox 94 L 07/11/22 09:30 FiO2 30 07/07/22 03:03 Intake & Output 07/10/22 07/11/22 07/11/22 18:59 06:59 18:59 Intake Total 100 118 Output Total 1200 1150 Balance -1100 -1150 118 Weight 162.074 kg 161.025 kg Intake: Intake, IV Titration 100 Amount Sodium Ferric Gluconat- 100 Sucrose 125 mg In Sodium Chloride 0.9% 100 ml @ 100 mls/hr IVPB DAILY [facility] Rx#:[id number] Oral 118 Output: Urine 1200 1150 Other: Voiding Method External Catheter External Catheter External Catheter # Bowel Movements 1 - Exam No acute distress, oriented 3. Currently on 2 L. No respiratory distress, or conversational dyspnea. HEENT examination is grossly unremarkable. Neck supple. Full range of motion. No adenopathy thyromegaly or neck vein distention. Cardiovascular examination reveals regular rhythm rate. S1-S2 normal. No S3 or S4. No discernible murmur noted. Heart rate is 83 bpm. Lungs reveal mostly clear breath sounds, with some bibasilar crackles. No wheezes. No rhonchi. Saturations are 97% on 2 L. Abdomen soft bowel sounds are heard. No masses or tenderness. Extremities are intact. No cyanosis or clubbing. Mild lower extremity edema noted. Skin is without rash or lesion. Neurologic examination is brief but nonfocal. - Labs CBC & Chem 7: 07/08/22 06:32 07/11/22 11:27 Labs: Abnormal Lab Results - Last 24 Hours (Table) 07/11/22 Range/Units 11:27 Chloride 96 L (98-107) mmol/L Carbon Dioxide 39 H (22-30) mmol/L BUN 35 H (7-17) mg/dL Creatinine 2.14 H (0.52-1.04) mg/dL Assessment and Plan Plan: Acute hypoxemic respiratory failure secondary to an acute exacerbation of diastolic congestive heart failure.the patient is currently on 2 L of oxygen nasal cannula. The patient is not using her BiPAP on a regular basis. The patient has a component of chronic hypoxic respiratory failure due to morbid obesity, obstructive sleep apnea and obesity hypoventilation syndrome. She is a chronic CO2 retainer in addition. Her chest x-ray from 2 days back is still showing massive cardiomegaly with pulmonary vessel congestion. The patient is a fluid bolus and the patient was taken off the IV Lasix and she was placed on Demadex 40 mg by mouth daily. She is producing excellent urine output. No signs of any fluid overload. Acute hypercapnic respiratory failure secondary to above. History of ventilatory dependent respiratory failure. Morbid obesity with obstructive sleep apnea syndrome. The patient's sleep evaluation was done in 2018 and at that time the patient had severe NIR with AHI 45 and this was confirmed by polysomnogram and following that the patient was titrated to a CPAP pressure of 16 cm of water in addition to oxygen 2 L/m nasal cannula. Back then, she is to weigh around3 62 pounds. History of coronary disease. Hypertension. History of DVT. Anxiety. History of chronic kidney disease. History of SVT. Nonsmoker. chronic anemia, hemoglobin of 8.8 and the patient is receiving IV iron infusions. Plan: Clinically continues to improve and the patient is obviously short of breath The patient continues with diabetes on Demadex orally With this patient for an outpatient titration with CPAP/BiPAP and arrange for her treatment accordingly Clinically the patient is improving and she is not having any significant shortness of breath Currently she is on oxygen at 2 L nasal cannula and she was switched to room air oxygen She has a BiPAP at the bedside at pressure 14/6 cm of water Increase mobility. Monitor renal function especially the patient is on diuretics and we'll continue to follow. We'll talk also the window caser to arrange outpatient CPAP titration.
[2022-07-11 17:08] LABS: Glucose,Whole Blood 117 mg/dL (70-110)
[2022-07-11 20:15] LABS: Glucose,Whole Blood 107 mg/dL (70-110)
[2022-07-12 05:55] LABS: Glucose,Whole Blood 93 mg/dL (70-110)
[2022-07-12] MEDS: INSULIN ASPART (NovoLOG) 100 UNIT/ML VIAL SQ SCH ×4 (06:23→21:06)
[2022-07-12] MEDS: METOPROLOL TARTRATE 50 MG TAB PO SCH ×2 (08:44→21:08)
[2022-07-12] MEDS: MAGNESIUM OXIDE 400 MG TAB PO SCH (08:44)
[2022-07-12] MEDS: SODIUM FERRIC GLUCONAT-SUCROSE 125 MG in SODIUM CHLORIDE 0.9% 100 ML IVPB SCH (08:45)
[2022-07-12] MEDS: TORSEMIDE 20 MG TAB PO SCH (08:45)
[2022-07-12] MEDS: amLODIPine 5 MG TAB PO SCH (08:45)
[2022-07-12] MEDS: IPRATROPIUM-ALBUTEROL 3 ML NEB INHALATION SCH ×4 (08:50→20:03)
[2022-07-12 11:42] LABS: Glucose,Whole Blood 95 mg/dL (70-110)
--- NOTE | 2022-07-12 12:49 | P.PN ---
Subjective Patient is seen for follow-up for acute kidney injury and top of chronic kidney disease. She was admitted with volume overload and acute hypoxic respiratory failure. and is currently being diuresed. Patient has been transferred out of the ICU. This morning she denies any significant complaints Serum creatinine at 2.1 mg/dL. Maintained on oral Demadex 40 mg daily Objective - Vital Signs Vital signs: Vital Signs Temp 97.1 F L 07/12/22 08:35 Pulse 80 07/12/22 12:04 Resp 16 07/12/22 08:35 BP 127/71 07/12/22 08:35 Pulse Ox 94 L 07/12/22 08:35 FiO2 30 07/07/22 03:03 Intake & Output 07/11/22 07/12/22 07/12/22 18:59 06:59 18:59 Intake Total 358 480 Output Total 1200 300 925 Balance -842 -300 -445 Intake: Oral 358 480 Output: Urine 1200 300 925 Other: Voiding Method External Catheter External Catheter External Catheter - Exam Patient is awake, comfortable, not in any acute distress Examination of the heart S1 and S2 Examination of the lungs decreased breath sounds at the bases Abdomen is soft nontender Examination of lower extremity shows chronic edema chronic skin changes. 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 Chronic kidney disease NKF stage IV with baseline creatinine 1.8-2 mg/dL etiology is nephrosclerosis and cardiorenal. UA has shown proteinuria previously. Workup showed most serologies to be negative with slightly elevated kappa and lambda chains. 3. Volume overload 4. Acute on chronic diastolic CHF with ejection fraction 55-60%. 5. Morbid obesity 6. Anemia rule out iron deficiency versus anemia of chronic disease. 7. Acute kidney injury mostly cardiorenal, improved Plan: Continue with oral torsemide Follow-up as outpatient in 1-2 weeks' Continue to avoid high salt containing foods
--- NOTE | 2022-07-12 12:58 | P.PN ---
Subjective Progress Note Date: 07/12/22 This is a morbidly obese 47-year-old female patient was currently in the intensive care unit, hospitalized for shortness of breath, multifactorial, including a component of CHF and fluid. She is known to have hypertension, obstructive sleep apnea, chronic kidney disease. She also has chronic hypoxic and hypercapnic respiratory failure, supported with BiPAP. Her condition has been optimized and the patient is currently on oxygen at 2 L. Chest x-ray on 07/07/2022 showed significant cardiomegaly and significant pulmonary vascular congestion. No follow-up chest x-ray has been obtained since. The patient otherwise seems to have responded adequately to the treatment offered. The patient is currently on Lasix 80 mg IV every 12 hours. The patient's is producing adequate amount of urine output and the fluid balance over the past 24 hours has been -4 L at least. The blood work from today shows improvement of creatinine which is TO 0.03 and a sodium level is 143 with a bicarb of 36. Yesterday's creatinine was at 2.2. The highest creatinine level during this current admission was 2.48. The patient is also chronically anemic. Hemoglobin is at 8.8. Follow-up levels from today are still pending. The most recent echocardiogram that has been obtained on this patient is from 11/22/2021 and it showed preserved LV function with an ejection fraction of 45-50%. There was a technically difficult study as the patient is morbidly obese. Otherwise, the patient is awake and alert and she is communicating. The patient has declined using the BiPAP machine. There is obviously an issue with compliancy with this patient. I have seen the patient on previous occasions. She has been here in the intensive care unit. Her go over these include stage III kidney disease, obstructive sleep apnea and the patient's is supposed to be on a CPAP pressure of 16 cm of water, previous history of DVT, hypertension, generalized anxiety, previous history of upper GI bleed and previous history of chronic anemia. Currently 2021, Ankita is being seen on the medical floor. She got transferred out of the intensive care unit. She is morbidly obese with a BMI of 56. She also has NIR, OHS, and chronic shortness of breath related to the same and CHF with diastolic heart failure. The patient is doing well for now. Her laboratory ejection fraction is 45%. She is using the BiPAP overnight and she has been adequately diuresed. No major edema lower extremities bilaterally. The patient has stage III chronic kidney disease, hypertension, previous history of DVT, previous history of GI bleed was chronic anemia along with her obstructive sleep apnea. On today's evaluation, the patient is on room air oxygen pH is resting comfortably in bed. No complaints for now. No signs of any CO2 narcosis. Her fluids balance is -2 L and she has had intolerance another 3.5 L negative fluid balance over the next 24 hours. The patient's BUN is at 34 with a creatinine of 1.8 and sodium levels of 142 and a potassium level of 3.8. Otherwise, the patient remains on Demadex 40 mg by mouth daily. No ot her changes in her medications since yesterday. She is completing a three-day course of IV iron. 07/11/2022, patient is being seen for a follow-up. The patient is currently on 3 L of oxygen nasal cannula with a pulse ox of 94%. Using the BiPAP overnight. She continues to be diuresed and the patient is currently on oral Demadex 40 mg by mouth daily. Her BUN is at 35 with a creatinine of 2.1, slightly worse compared to yesterday and esomeprazole 41 with a potassium level of 3.9. She has been in a negative fluid balance as the patient was being diuresed. Over the past 24 hours, she achieved another 3.6 L of negative fluid balance and she's had it for another negative fluid balance of at least 2 L over the next 24 hours. I am going to work on getting this patient in the BiPAP machine and outpatient basis. She has a case of severe obstructive sleep apnea and she has been tested back in 2018 and diagnosed reportedly. Nevertheless, the patient states that she has not been treated. 07/12/2022, no new complaints, remains on oxygen at 3 L. No worsening shortness of breath. Blood work is from 07/11/2022: None today. Most recent creatinine was at 2.14. She remains on Demadex and the patient continues to diurese with negative fluid balance. Objective - Vital Signs Vital signs: Vital Signs Temp 97.1 F L 07/12/22 08:35 Pulse 80 07/12/22 12:04 Resp 16 07/12/22 08:35 BP 127/71 07/12/22 08:35 Pulse Ox 94 L 07/12/22 08:35 FiO2 30 07/07/22 03:03 Intake & Output 07/11/22 07/12/22 07/12/22 18:59 06:59 18:59 Intake Total 358 480 Output Total 1200 300 925 Balance -842 -300 -445 Intake: Oral 358 480 Output: Urine 1200 300 925 Other: Voiding Method External Catheter External Catheter External Catheter - Exam No acute distress, oriented 3. Currently on 2 L. No respiratory distress, or conversational dyspnea. HEENT examination is grossly unremarkable. Neck supple. Full range of motion. No adenopathy thyromegaly or neck vein distention. Cardiovascular examination reveals regular rhythm rate. S1-S2 normal. No S3 or S4. No discernible murmur noted. Heart rate is 83 bpm. Lungs reveal mostly clear breath sounds, with some bibasilar crackles. No wheezes. No rhonchi. Saturations are 97% on 2 L. Abdomen soft bowel sounds are heard. No masses or tenderness. Extremities are intact. No cyanosis or clubbing. Mild lower extremity edema noted. Skin is without rash or lesion. Neurologic examination is brief but nonfocal. - Labs CBC & Chem 7: 07/08/22 06:32 07/11/22 11:27 Labs: Abnormal Lab Results - Last 24 Hours (Table) 07/11/22 Range/Units 17:04 POC Glucose (mg/dL) 117 H (70-110) mg/dL Assessment and Plan Plan: Acute hypoxemic respiratory failure secondary to an acute exacerbation of diastolic congestive heart failure.the patient is currently on 2 L of oxygen nasal cannula. The patient is not using her BiPAP on a regular basis. The patient has a component of chronic hypoxic respiratory failure due to morbid obesity, obstructive sleep apnea and obesity hypoventilation syndrome. She is a chronic CO2 retainer in addition. Her chest x-ray from 2 days back is still showing massive cardiomegaly with pulmonary vessel congestion. The patient is a fluid bolus and the patient was taken off the IV Lasix and she was placed on Demadex 40 mg by mouth daily. She is producing excellent urine output. No signs of any fluid overload. Acute hypercapnic respiratory failure secondary to above. History of ventilatory dependent respiratory failure. Morbid obesity with obstructive sleep apnea syndrome. The patient's sleep evaluation was done in 2018 and at that time the patient had severe NIR with AHI 45 and this was confirmed by polysomnogram and following that the patient was titrated to a CPAP pressure of 16 cm of water in addition to oxygen 2 L/m nasal cannula. Back then, she is to weigh around 3 62 pounds. History of coronary disease. Hypertension. History of DVT. Anxiety. History of chronic kidney disease. History of SVT. Nonsmoker. chronic anemia, hemoglobin of 8.8 and the patient is receiving IV iron infusions. Plan: Patient needs to be taken off of her bed for some limited activity at least sitting up on a chair PT will be involved in the case Clinically continues to improve and the patient is obviously short of breath The patient continues to be in a negative fluid balance while taking diuretics and she is on Demadex orally With this patient for an outpatient titration with CPAP/BiPAP and arrange for her treatment accordingly Clinically the patient is improving and she is not having any significant shortness of breath Currently she is on oxygen at 2 L nasal cannula and she was switched to room air oxygen She has a BiPAP at the bedside at pressure 14/6 cm of water Increase mobility. Monitor renal function especially the patient is on diuretics and we'll continue to follow. We'll talk also the supervisor case loading to arrange outpatient CPAP titration. Discharge planning is in progress, possible discharge within the next 24-48 hours.
[2022-07-12 16:58] LABS: Glucose,Whole Blood 101 mg/dL (70-110)
[2022-07-12 20:35] LABS: Glucose,Whole Blood 93 mg/dL (70-110)
--- NOTE | 2022-07-13 05:00 | PN ---
PROGRESS NOTE CHIEF COMPLAINT: Acute pulmonary edema, cardiomyopathy, and renal failure. HISTORY OF PRESENT ILLNESS: This lady is feeling much better each day. Breathing is improved. She is not having any abdominal pain. BUN and creatinine are still up slightly. PHYSICAL EXAMINATION: CHEST: Breath sounds are heard bilaterally. CARDIAC: Unremarkable with sinus rhythm. ABDOMEN: Soft. EXTREMITIES: Normal. IMPRESSION: 1. Acute pulmonary edema. 2. Chronic congestive heart failure. 3. Cardiomyopathy. 4. Sleep apnea. 5. Pickwickian syndrome. 6. Renal failure. 7. Morbid obesity. PLAN: Try to progress her activity and continue to monitor her cardiac function as well as output as well as her renal status. MMODL / IJN: [id number] /
[2022-07-13 06:17] LABS: Glucose,Whole Blood 92 mg/dL (70-110)
[2022-07-13] MEDS: INSULIN ASPART (NovoLOG) 100 UNIT/ML VIAL SQ SCH ×4 (06:30→20:38)
[2022-07-13] MEDS: amLODIPine 5 MG TAB PO SCH ×2 (08:14→20:36)
[2022-07-13] MEDS: MAGNESIUM OXIDE 400 MG TAB PO SCH (08:15)
[2022-07-13] MEDS: TORSEMIDE 20 MG TAB PO SCH (08:15)
[2022-07-13] MEDS: METOPROLOL TARTRATE 50 MG TAB PO SCH ×2 (08:18→20:36)
[2022-07-13] MEDS: IPRATROPIUM-ALBUTEROL 3 ML NEB INHALATION SCH ×4 (08:26→20:21)
[2022-07-13] MEDS: SODIUM FERRIC GLUCONAT-SUCROSE 125 MG in SODIUM CHLORIDE 0.9% 100 ML IVPB SCH (09:19)
[2022-07-13 09:32] LABS: Calcium 9.2 mg/dL (8.4-10.2); Potassium 3.8 mmol/L (3.5-5.1)
--- NOTE | 2022-07-13 10:52 | P.PN ---
Subjective Patient is seen in follow-up for acute kidney injury and chronic kidney disease. Renal function better. Oral intake is good. Denies chest pain or shortness of breath. On 3 L nasal cannula. On oral torsemide. Nonoliguric. No active complaints. Vital signs are stable. General: Awake. No acute distress. HEENT: Head exam is unremarkable. LUNGS: Breath sounds decreased. HEART: Rate and Rhythm are regular. ABDOMEN: Soft, obese. EXTREMITITES: Trace edema. Objective - Vital Signs Vital signs: Vital Signs Temp 97.7 F 07/13/22 08:00 Pulse 88 07/13/22 08:37 Resp 18 07/13/22 08:00 BP 162/88 07/13/22 08:00 Pulse Ox 95 07/13/22 08:27 FiO2 30 07/07/22 03:03 Intake & Output 07/12/22 07/13/22 07/13/22 18:59 06:59 18:59 Intake Total 720 118 Output Total 2775 1000 Balance -2054 118 Weight 183 kg Intake: Oral 720 118 Output: Urine 2775 1000 Other: Voiding Method External Catheter External Catheter External Catheter - Labs CBC & Chem 7: 07/08/22 06:32 07/13/22 09:03 Labs: Abnormal Lab Results - Last 24 Hours (Table) 07/13/22 Range/Units 09:03 Chloride 91 L (98-107) mmol/L Carbon Dioxide 40 H (22-30) mmol/L BUN 40 H (7-17) mg/dL Creatinine 1.84 H (0.52-1.04) mg/dL Glucose 106 H (74-99) mg/dL Assessment and Plan Plan: Assessment: 1. Acute kidney injury mostly prerenal secondary to cardiorenal syndrome. Renal function better. Creatinine 1.84 today 2. Chronic kidney disease stage IV secondary to nephrosclerosis and cardiorenal syndrome with baseline creatinine 1.8-2. 3. Acute on chronic diastolic CHF. 4. Volume overload. Improved with diuresis. 5. Hypertension with chronic kidney disease. 6. Anemia of chronic kidney disease. Iron deficiency noted. Status post IV iron. On Aranesp. Plan: Maintain torsemide 40 mg once daily. Continue to monitor renal function and urine output. Avoid nephrotoxins. Increase amlodipine to 5 mg twice daily.
[2022-07-13 11:56] LABS: Glucose,Whole Blood 87 mg/dL (70-110)
[2022-07-13] MEDS: DARBEPOETIN ALFA 60 MCG/0.3 ML SYRINGE SQ SCH (12:11)
--- NOTE | 2022-07-13 13:33 | P.PN ---
Subjective Progress Note Date: 07/13/22 This is a morbidly obese 47-year-old female patient was currently in the intensive care unit, hospitalized for shortness of breath, multifactorial, including a component of CHF and fluid. She is known to have hypertension, obstructive sleep apnea, chronic kidney disease. She also has chronic hypoxic and hypercapnic respiratory failure, supported with BiPAP. Her condition has been optimized and the patient is currently on oxygen at 2 L. Chest x-ray on 07/07/2022 showed significant cardiomegaly and significant pulmonary vascular congestion. No follow-up chest x-ray has been obtained since. The patient otherwise seems to have responded adequately to the treatment offered. The patient is currently on Lasix 80 mg IV every 12 hours. The patient's is producing adequate amount of urine output and the fluid balance over the past 24 hours has been -4 L at least. The blood work from today shows improvement of creatinine which is TO 0.03 and a sodium level is 143 with a bicarb of 36. Yesterday's creatinine was at 2.2. The highest creatinine level during this current admission was 2.48. The patient is also chronically anemic. Hemoglobin is at 8.8. Follow-up levels from today are still pending. The most recent echocardiogram that has been obtained on this patient is from 11/22/2021 and it showed preserved LV function with an ejection fraction of 45-50%. There was a technically difficult study as the patient is morbidly obese. Otherwise, the patient is awake and alert and she is communicating. The patient has declined using the BiPAP machine. There is obviously an issue with compliancy with this patient. I have seen the patient on previous occasions. She has been here in the intensive care unit. Her go over these include stage III kidney disease, obstructive sleep apnea and the patient's is supposed to be on a CPAP pressure of 16 cm of water, previous history of DVT, hypertension, generalized anxiety, previous history of upper GI bleed and previous history of chronic anemia. Currently 2021, Ankita is being seen on the medical floor. She got transferred out of the intensive care unit. She is morbidly obese with a BMI of 56. She also has NIR, OHS, and chronic shortness of breath related to the same and CHF with diastolic heart failure. The patient is doing well for now. Her laboratory ejection fraction is 45%. She is using the BiPAP overnight and she has been adequately diuresed. No major edema lower extremities bilaterally. The patient has stage III chronic kidney disease, hypertension, previous history of DVT, previous history of GI bleed was chronic anemia along with her obstructive sleep apnea. On today's evaluation, the patient is on room air oxygen pH is resting comfortably in bed. No complaints for now. No signs of any CO2 narcosis. Her fluids balance is -2 L and she has had intolerance another 3.5 L negative fluid balance over the next 24 hours. The patient's BUN is at 34 with a creatinine of 1.8 and sodium levels of 142 and a potassium level of 3.8. Otherwise, the patient remains on Demadex 40 mg by mouth daily. No ot her changes in her medications since yesterday. She is completing a three-day course of IV iron. 07/11/2022, patient is being seen for a follow-up. The patient is currently on 3 L of oxygen nasal cannula with a pulse ox of 94%. Using the BiPAP overnight. She continues to be diuresed and the patient is currently on oral Demadex 40 mg by mouth daily. Her BUN is at 35 with a creatinine of 2.1, slightly worse compared to yesterday and esomeprazole 41 with a potassium level of 3.9. She has been in a negative fluid balance as the patient was being diuresed. Over the past 24 hours, she achieved another 3.6 L of negative fluid balance and she's had it for another negative fluid balance of at least 2 L over the next 24 hours. I am going to work on getting this patient in the BiPAP machine and outpatient basis. She has a case of severe obstructive sleep apnea and she has been tested back in 2018 and diagnosed reportedly. Nevertheless, the patient states that she has not been treated. 07/12/2022, no new complaints, remains on oxygen at 3 L. No worsening shortness of breath. Blood work is from 07/11/2022: None today. Most recent creatinine was at 2.14. She remains on Demadex and the patient continues to diurese with negative fluid balance. 07/13/2022, the patient remains on 3 L of nasal cannula. Denies having any significant shortness of breath. Resting comfortably in bed. She remains on torsemide. Producing an adequate amount of urine output. Creatinine is down to 1.3 and a 40 and his sodium is a little 42. The white cell count of 7 with a hemoglobin of 8.8. Objective - Vital Signs Vital signs: Vital Signs Temp 97.8 F 07/13/22 12:00 Pulse 77 07/13/22 12:28 Resp 17 07/13/22 12:00 BP 167/80 07/13/22 12:00 Pulse Ox 97 07/13/22 12:00 FiO2 30 07/07/22 03:03 Intake & Output 07/12/22 07/13/22 07/13/22 18:59 06:59 18:59 Intake Total 720 118 Output Total 2775 1000 775 Balance -6 -1000 -417 Weight 183 kg Intake: Oral 720 118 Output: Urine 2775 1000 775 Other: Voiding Method External Catheter External Catheter External Catheter - Exam No acute distress, oriented 3. Currently on 2 L. No respiratory distress, or conversational dyspnea. HEENT examination is grossly unremarkable. Neck supple. Full range of motion. No adenopathy thyromegaly or neck vein distention. Cardiovascular examination reveals regular rhythm rate. S1-S2 normal. No S3 or S4. No discernible murmur noted. Heart rate is 83 bpm. Lungs reveal mostly clear breath sounds, with some bibasilar crackles. No wheezes. No rhonchi. Saturations are 97% on 2 L. Abdomen soft bowel sounds are heard. No masses or tenderness. Extremities are intact. No cyanosis or clubbing. Mild lower extremity edema noted. Skin is without rash or lesion. Neurologic examination is brief but nonfocal. - Labs CBC & Chem 7: 07/08/22 06:32 07/13/22 09:03 Labs: Abnormal Lab Results - Last 24 Hours (Table) 07/13/22 Range/Units 09:03 Chloride 91 L (98-107) mmol/L Carbon Dioxide 40 H (22-30) mmol/L BUN 40 H (7-17) mg/dL Creatinine 1.84 H (0.52-1.04) mg/dL Glucose 106 H (74-99) mg/dL Assessment and Plan Plan: Acute hypoxemic respiratory failure secondary to an acute exacerbation of diastolic congestive heart failure.the patient is currently on 2 L of oxygen nasal cannula. The patient is not using her BiPAP on a regular basis. The patient has a component of chronic hypoxic respiratory failure due to morbid obesity, obstructive sleep apnea and obesity hypoventilation syndrome. She is a chronic CO2 retainer in addition. Her chest x-ray from 2 days back is still showing massive cardiomegaly with pulmonary vessel congestion. The patient is a fluid bolus and the patient was taken off the IV Lasix and she was placed on Demadex 40 mg by mouth daily. She is producing excellent urine output. No signs of any fluid overload. Acute hypercapnic respiratory failure secondary to above. History of ventilatory dependent respiratory failure. Morbid obesity with obstructive sleep apnea syndrome. The patient's sleep evaluation was done in 2018 and at that time the patient had severe NIR with AHI 45 and this was confirmed by polysomnogram and following that the patient was titrated to a CPAP pressure of 16 cm of water in addition to oxygen 2 L/m nasal cannula. Back then, she is to weigh around 3 62 pounds. History of coronary disease. Hypertension. History of DVT. Anxiety. History of chronic kidney disease. History of SVT. Nonsmoker. chronic anemia, hemoglobin of 8.8 and the patient is receiving IV iron infusions. Plan: Renal function is stable. Reassess is stable. Nothing more can be added from the pulmonary standpoint. Clinically stable PT will be involved in the case The patient continues to be in a negative fluid balance while taking diuretics and she is on Demadex orally With this patient for an outpatient titration with CPAP/BiPAP and arrange for her treatment accordingly Clinically the patient is improving and she is not having any significant shortness of breath Currently she is on oxygen at 2 L nasal cannula and she was switched to room air oxygen She has a BiPAP at the bedside at pressure 14/6 cm of water Increase mobility. Monitor renal function especially the patient is on diuretics and we'll continue to follow. We'll talk also the returned case inspector to arrange outpatient CPAP titration. Discharge planning is in progress, possible discharge within the next 24-48 hours.
[2022-07-13 16:48] LABS: Glucose,Whole Blood 93 mg/dL (70-110)
--- NOTE | 2022-07-13 20:26 | PN ---
PROGRESS NOTE CHIEF COMPLAINT: Acute congestive heart failure. HISTORY OF PRESENT ILLNESS: This lady is doing a little bit better each day. She is less short of breath. She is having no pain. She has had no nausea or vomiting. PHYSICAL EXAMINATION: VITAL SIGNS: Normal. CHEST: Clear. CARDIAC: Exam is normal. IMPRESSION: 1. Pulmonary edema. 2. Acute on chronic congestive heart failure. 3. Cardiomyopathy. 4. Pickwickian syndrome. 5. Sleep apnea. 6. Renal failure. PLAN: Continue to progress her activity and diet and she may be able to be discharged soon. MMODL / IJN: [id number] /
[2022-07-13 20:39] LABS: Glucose,Whole Blood 108 mg/dL (70-110)
[2022-07-14] MEDS: INSULIN ASPART (NovoLOG) 100 UNIT/ML VIAL SQ SCH ×4 (06:15→20:17)
[2022-07-14 06:16] LABS: Glucose,Whole Blood 82 mg/dL (70-110)
[2022-07-14] MEDS: IPRATROPIUM-ALBUTEROL 3 ML NEB INHALATION SCH ×4 (08:37→19:46)
[2022-07-14] MEDS: MAGNESIUM OXIDE 400 MG TAB PO SCH (08:55)
[2022-07-14] MEDS: METOPROLOL TARTRATE 50 MG TAB PO SCH ×2 (08:55→20:19)
[2022-07-14] MEDS: TORSEMIDE 20 MG TAB PO SCH (08:55)
[2022-07-14] MEDS: amLODIPine 5 MG TAB PO SCH ×2 (08:55→20:19)
--- NOTE | 2022-07-14 11:16 | P.PN ---
Subjective Progress Note Date: 07/14/22 Principal diagnosis: This is a 47-year-old obese female seen in consultation because of acute kidney injury and chronic kidney disease she has cardiorenal syndrome. She is respond ing well to torsemide with good urine output improving on breathing and less short of breath. Otherwise he denies any complaints. She is currently on nasal cannula oxygen. Unable to walk because of generalized weakness. No dizziness. She is known with coronary artery disease hypertension sleep apnea on CPAP Objective - Vital Signs Vital signs: Vital Signs Temp 98.6 F 07/14/22 08:52 Pulse 91 07/14/22 08:52 Resp 16 07/14/22 08:52 BP 144/86 07/14/22 08:52 Pulse Ox 95 07/14/22 08:52 FiO2 30 07/07/22 03:03 Intake & Output 07/13/22 07/14/22 07/14/22 18:59 06:59 18:59 Intake Total 354 10 240 Output Total 2575 1150 775 Balance -5934 -1140 -559 Intake: IV 10 0.9 10 Oral 354 240 Output: Urine 2575 1150 775 Other: Voiding Method External Catheter External Catheter External Catheter Exam general obese female currently on nasal cannula oxygen HEENT exam no facial asymmetry noted Lungs are clear to auscultation fair air entry bilaterally Heart sounds unremarkable Abdomen soft nontender obese Extremity exam was trace edema Neurologically awake alert oriented - Labs CBC & Chem 7: 07/08/22 06:32 07/13/22 09:03 Assessment and Plan Assessment: Assessment: 1. Acute kidney injury mostly prerenal secondary to cardiorenal syndrome, responding to torsemide 40 mg by mouth. Renal function better. Creatinine 1.84 yesterday trace last pending. Creatinine at baseline 2. Chronic kidney disease stage IV secondary to nephrosclerosis and cardiorenal syndrome with baseline creatinine 1.8-2. 3. Acute on chronic diastolic CHF. 4. Volume overload. Improved with diuresis. 5. Hypertension with chronic kidney disease. 6. Anemia of chronic kidney disease. Iron deficiency noted. Status post IV iron. On Aranesp. Hemoglobin is 8.8 as of 07/08/2022 Recommendation 1. No changes in medication continue torsemide 2. Consider physiotherapy. 3. Check CBC
[2022-07-14 11:58] LABS: Glucose,Whole Blood 82 mg/dL (70-110)
--- NOTE | 2022-07-14 13:02 | P.PN ---
Subjective Progress Note Date: 07/14/22 This is a morbidly obese 47-year-old female patient was currently in the intensive care unit, hospitalized for shortness of breath, multifactorial, including a component of CHF and fluid. She is known to have hypertension, obstructive sleep apnea, chronic kidney disease. She also has chronic hypoxic and hypercapnic respiratory failure, supported with BiPAP. Her condition has been optimized and the patient is currently on oxygen at 2 L. Chest x-ray on 07/07/2022 showed significant cardiomegaly and significant pulmonary vascular congestion. No follow-up chest x-ray has been obtained since. The patient otherwise seems to have responded adequately to the treatment offered. The patient is currently on Lasix 80 mg IV every 12 hours. The patient's is producing adequate amount of urine output and the fluid balance over the past 24 hours has been -4 L at least. The blood work from today shows improvement of creatinine which is TO 0.03 and a sodium level is 143 with a bicarb of 36. Yesterday's creatinine was at 2.2. The highest creatinine level during this current admission was 2.48. The patient is also chronically anemic. Hemoglobin is at 8.8. Follow-up levels from today are still pending. The most recent echocardiogram that has been obtained on this patient is from 11/22/2021 and it showed preserved LV function with an ejection fraction of 45-50%. There was a technically difficult study as the patient is morbidly obese. Otherwise, the patient is awake and alert and she is communicating. The patient has declined using the BiPAP machine. There is obviously an issue with compliancy with this patient. I have seen the patient on previous occasions. She has been here in the intensive care unit. Her go over these include stage III kidney disease, obstructive sleep apnea and the patient's is supposed to be on a CPAP pressure of 16 cm of water, previous history of DVT, hypertension, generalized anxiety, previous history of upper GI bleed and previous history of chronic anemia. Currently 2021, Ankita is being seen on the medical floor. She got transferred out of the intensive care unit. She is morbidly obese with a BMI of 56. She also has NIR, OHS, and chronic shortness of breath related to the same and CHF with diastolic heart failure. The patient is doing well for now. Her laboratory ejection fraction is 45%. She is using the BiPAP overnight and she has been adequately diuresed. No major edema lower extremities bilaterally. The patient has stage III chronic kidney disease, hypertension, previous history of DVT, previous history of GI bleed was chronic anemia along with her obstructive sleep apnea. On today's evaluation, the patient is on room air oxygen pH is resting comfortably in bed. No complaints for now. No signs of any CO2 narcosis. Her fluids balance is -2 L and she has had intolerance another 3.5 L negative fluid balance over the next 24 hours. The patient's BUN is at 34 with a creatinine of 1.8 and sodium levels of 142 and a potassium level of 3.8. Otherwise, the patient remains on Demadex 40 mg by mouth daily. No ot her changes in her medications since yesterday. She is completing a three-day course of IV iron. 07/11/2022, patient is being seen for a follow-up. The patient is currently on 3 L of oxygen nasal cannula with a pulse ox of 94%. Using the BiPAP overnight. She continues to be diuresed and the patient is currently on oral Demadex 40 mg by mouth daily. Her BUN is at 35 with a creatinine of 2.1, slightly worse compared to yesterday and esomeprazole 41 with a potassium level of 3.9. She has been in a negative fluid balance as the patient was being diuresed. Over the past 24 hours, she achieved another 3.6 L of negative fluid balance and she's had it for another negative fluid balance of at least 2 L over the next 24 hours. I am going to work on getting this patient in the BiPAP machine and outpatient basis. She has a case of severe obstructive sleep apnea and she has been tested back in 2018 and diagnosed reportedly. Nevertheless, the patient states that she has not been treated. 07/12/2022, no new complaints, remains on oxygen at 3 L. No worsening shortness of breath. Blood work is from 07/11/2022: None today. Most recent creatinine was at 2.14. She remains on Demadex and the patient continues to diurese with negative fluid balance. 07/13/2022, the patient remains on 3 L of nasal cannula. Denies having any significant shortness of breath. Resting comfortably in bed. She remains on torsemide. Producing an adequate amount of urine output. Creatinine is down to 1.3 and a 40 and his sodium is a little 42. The white cell count of 7 with a hemoglobin of 8.8. 07/14/2022, clinically stable and no change in her condition. Received Demadex 40 mg by mouth daily. Awaiting discharge. Objective - Vital Signs Vital signs: Vital Signs Temp 98.5 F 07/14/22 11:51 Pulse 83 07/14/22 11:51 Resp 16 07/14/22 11:51 BP 140/92 07/14/22 11:51 Pulse Ox 100 07/14/22 11:51 FiO2 30 07/07/22 03:03 Intake & Output 07/13/22 07/14/22 07/14/22 18:59 06:59 18:59 Intake Total 354 10 240 Output Total 2575 1150 775 Balance -1871 -3110 -970 Intake: IV 10 0.9 10 Oral 354 240 Output: Urine 2575 1150 775 Other: Voiding Method External Catheter External Catheter External Catheter - Exam No acute distress, oriented 3. Currently on 2 L. No respiratory distress, or conversational dyspnea. HEENT examination is grossly unremarkable. Neck supple. Full range of motion. No adenopathy thyromegaly or neck vein distention. Cardiovascular examination reveals regular rhythm rate. S1-S2 normal. No S3 or S4. No discernible murmur noted. Heart rate is 83 bpm. Lungs reveal mostly clear breath sounds, with some bibasilar crackles. No wheezes. No rhonchi. Saturations are 97% on 2 L. Abdomen soft bowel sounds are heard. No masses or tenderness. Extremities are intact. No cyanosis or clubbing. Mild lower extremity edema noted. Skin is without rash or lesion. Neurologic examination is brief but nonfocal. - Labs CBC & Chem 7: 07/08/22 06:32 07/13/22 09:03 Assessment and Plan Plan: Acute hypoxemic respiratory failure secondary to an acute exacerbation of diastolic congestive heart failure.the patient is currently on 2 L of oxygen nasal cannula. The patient is not using her BiPAP on a regular basis. The patient has a component of chronic hypoxic respiratory failure due to morbid obesity, obstructive sleep apnea and obesity hypoventilation syndrome. She is a chronic CO2 retainer in addition. Her chest x-ray from 2 days back is still showing massive cardiomegaly with pulmonary vessel congestion. The patient is a fluid bolus and the patient was taken off the IV Lasix and she was placed on Demadex 40 mg by mouth daily. She is producing excellent urine output. No signs of any fluid overload. Acute hypercapnic respiratory failure secondary to above. History of ventilatory dependent respiratory failure. Morbid obesity with obstructive sleep apnea syndrome. The patient's sleep evaluation was done in 2018 and at that time the patient had severe NIR with AHI 45 and this was confirmed by polysomnogram and following that the patient was titrated to a CPAP pressure of 16 cm of water in addition to oxygen 2 L/m nasal cannula. Back then, she is to weigh around 3 62 pounds. History of coronary disease. Hypertension. History of DVT. Anxiety. History of chronic kidney disease. History of SVT. Nonsmoker. chronic anemia, hemoglobin of 8.8 and the patient is receiving IV iron infusions. Plan: Continue same treatment Renal function is stable. Reassess is stable. Nothing more can be added from the pulmonary standpoint. Clinically stable PT will be involved in the case The patient continues to be in a negative fluid balance while taking diuretics and she is on Demadex orally With this patient for an outpatient titration with CPAP/BiPAP and arrange for her treatment accordingly Clinically the patient is improving and she is not having any significant shortness of breath Currently she is on oxygen at 2 L nasal cannula and she was switched to room air oxygen She has a BiPAP at the bedside at pressure 14/6 cm of water Increase mobility. Monitor renal function especially the patient is on diuretics and we'll continue to follow. We'll talk also the window caser to arrange outpatient CPAP titration. Awaiting discharge
[2022-07-14 17:22] LABS: Glucose,Whole Blood 105 mg/dL (70-110)
[2022-07-14 20:06] LABS: Glucose,Whole Blood 120 mg/dL (70-110)
[2022-07-14 20:37] VITALS: RESP 18
[2022-07-15 06:07] LABS: Glucose,Whole Blood 96 mg/dL (70-110)
[2022-07-15] MEDS: INSULIN ASPART (NovoLOG) 100 UNIT/ML VIAL SQ SCH ×3 (06:07→17:08)
[2022-07-15] MEDS: IPRATROPIUM-ALBUTEROL 3 ML NEB INHALATION SCH ×3 (08:58→16:36)
[2022-07-15] MEDS: amLODIPine 5 MG TAB PO SCH (09:20)
[2022-07-15] MEDS: METOPROLOL TARTRATE 50 MG TAB PO SCH (09:20)
[2022-07-15] MEDS: MAGNESIUM OXIDE 400 MG TAB PO SCH (09:20)
[2022-07-15] MEDS: TORSEMIDE 20 MG TAB PO SCH (09:20)
[2022-07-15] MEDS ORDERED: ACETAMINOPHEN TAB 325 MG TAB PO PRN (09:24)
--- NOTE | 2022-07-15 10:26 | P.PN ---
Subjective Progress Note Date: 07/15/22 Principal diagnosis: This is a 47-year-old obese female seen in consultation because of acute kidney injury and chronic kidney disease she has cardiorenal syndrome. She is respond ing well to torsemide with good urine output improving on breathing and less short of breath. Otherwise he denies any complaints. She is currently on nasal cannula oxygen. Unable to walk because of generalized weakness. No dizziness. She is known with coronary artery disease hypertension sleep apnea on CPAP She is feeling fairly well she is on oxygen otherwise denies any complaints. No shortness of breath chest pain nausea vomiting. She is chronically bedridden since November 2021 Urine output is 27 75 mL, while signs are stable. Last creatinine 1.84 improved on 07/13/2022, from a peak of 2.48 on 07/05/2020. She is currently at her baseline of 1.6 on 01/31/2020 Objective - Vital Signs Vital signs: Vital Signs Temp 97.6 F 07/15/22 09:17 Pulse 94 07/15/22 09:33 Resp 18 07/15/22 09:33 BP 118/77 07/15/22 09:17 Pulse Ox 95 07/15/22 09:17 FiO2 30 07/07/22 03:03 Intake & Output 07/14/22 07/15/22 07/15/22 18:59 06:59 18:59 Intake Total 840 10 Output Total 1575 1200 Balance -735 -1190 Intake: IV 10 0.9 10 Oral 840 Output: Urine 1575 1200 Other: Voiding Method External Catheter External Catheter External Catheter # Bowel Movements 1 Exam general obese female currently on nasal cannula oxygen HEENT exam no facial asymmetry noted Lungs are clear to auscultation fair air entry bilaterally Heart sounds unremarkable Abdomen soft nontender obese Extremity exam was trace edema Neurologically awake alert oriented - Labs CBC & Chem 7: 07/08/22 06:32 07/13/22 09:03 Labs: Abnormal Lab Results - Last 24 Hours (Table) 07/14/22 Range/Units 20:04 POC Glucose (mg/dL) 120 H (70-110) mg/dL Assessment and Plan Assessment: Assessment: 1. Acute kidney injury mostly prerenal secondary to cardiorenal syndrome, responding to torsemide 40 mg by mouth. Renal function better. Creatinine 1.84 on 07/13/2022, labs pending. Creatinine nearly at baseline, her best creatinine has been 1.6 recent 2. Chronic kidney disease stage IV secondary to nephrosclerosis and cardiorenal syndrome with baseline creatinine 1.8-2. 3. Acute on chronic diastolic CHF. 4. Volume overload. Improved with diuresis. 5. Hypertension with chronic kidney disease. 6. Anemia of chronic kidney disease. Iron deficiency noted. Status post IV iron. On Aranesp. Hemoglobin is 8.8 as of 07/08/2022 Recommendation 1. No changes in medication continue torsemide 2. Consider physiotherapy. 3. Pending CBC
[2022-07-15 11:44] LABS: Glucose,Whole Blood 88 mg/dL (70-110)
[2022-07-15 11:46] LABS: Anisocytosis Moderate; HCT 34.9 % (34.0-46.0); Hypochromasia Marked; MCH 20.6 pg (25.0-35.0); MCHC 25.7 g/dL (31.0-37.0); MCV 80.3 fL (80.0-100.0); Mean Platelet Volume 11.5; Microcytosis Slight; Platelet Count 222 k/uL (150-450); RBC 4.35 m/uL (3.80-5.40); RDW 22.7 % (11.5-15.5); WBC 8.8 k/uL (3.8-10.6)
--- NOTE | 2022-07-15 11:56 | P.PN ---
Subjective Progress Note Date: 07/15/22 This is a morbidly obese 47-year-old female patient was currently in the intensive care unit, hospitalized for shortness of breath, multifactorial, including a component of CHF and fluid. She is known to have hypertension, obstructive sleep apnea, chronic kidney disease. She also has chronic hypoxic and hypercapnic respiratory failure, supported with BiPAP. Her condition has been optimized and the patient is currently on oxygen at 2 L. Chest x-ray on 07/07/2022 showed significant cardiomegaly and significant pulmonary vascular congestion. No follow-up chest x-ray has been obtained since. The patient otherwise seems to have responded adequately to the treatment offered. The patient is currently on Lasix 80 mg IV every 12 hours. The patient's is producing adequate amount of urine output and the fluid balance over the past 24 hours has been -4 L at least. The blood work from today shows improvement of creatinine which is TO 0.03 and a sodium level is 143 with a bicarb of 36. Yesterday's creatinine was at 2.2. The highest creatinine level during this current admission was 2.48. The patient is also chronically anemic. Hemoglobin is at 8.8. Follow-up levels from today are still pending. The most recent echocardiogram that has been obtained on this patient is from 11/22/2021 and it showed preserved LV function with an ejection fraction of 45-50%. There was a technically difficult study as the patient is morbidly obese. Otherwise, the patient is awake and alert and she is communicating. The patient has declined using the BiPAP machine. There is obviously an issue with compliancy with this patient. I have seen the patient on previous occasions. She has been here in the intensive care unit. Her go over these include stage III kidney disease, obstructive sleep apnea and the patient's is supposed to be on a CPAP pressure of 16 cm of water, previous history of DVT, hypertension, generalized anxiety, previous history of upper GI bleed and previous history of chronic anemia. Currently 2021, Ankita is being seen on the medical floor. She got transferred out of the intensive care unit. She is morbidly obese with a BMI of 56. She also has NIR, OHS, and chronic shortness of breath related to the same and CHF with diastolic heart failure. The patient is doing well for now. Her laboratory ejection fraction is 45%. She is using the BiPAP overnight and she has been adequately diuresed. No major edema lower extremities bilaterally. The patient has stage III chronic kidney disease, hypertension, previous history of DVT, previous history of GI bleed was chronic anemia along with her obstructive sleep apnea. On today's evaluation, the patient is on room air oxygen pH is resting comfortably in bed. No complaints for now. No signs of any CO2 narcosis. Her fluids balance is -2 L and she has had intolerance another 3.5 L negative fluid balance over the next 24 hours. The patient's BUN is at 34 with a creatinine of 1.8 and sodium levels of 142 and a potassium level of 3.8. Otherwise, the patient remains on Demadex 40 mg by mouth daily. No ot her changes in her medications since yesterday. She is completing a three-day course of IV iron. 07/11/2022, patient is being seen for a follow-up. The patient is currently on 3 L of oxygen nasal cannula with a pulse ox of 94%. Using the BiPAP overnight. She continues to be diuresed and the patient is currently on oral Demadex 40 mg by mouth daily. Her BUN is at 35 with a creatinine of 2.1, slightly worse compared to yesterday and esomeprazole 41 with a potassium level of 3.9. She has been in a negative fluid balance as the patient was being diuresed. Over the past 24 hours, she achieved another 3.6 L of negative fluid balance and she's had it for another negative fluid balance of at least 2 L over the next 24 hours. I am going to work on getting this patient in the BiPAP machine and outpatient basis. She has a case of severe obstructive sleep apnea and she has been tested back in 2018 and diagnosed reportedly. Nevertheless, the patient states that she has not been treated. 07/12/2022, no new complaints, remains on oxygen at 3 L. No worsening shortness of breath. Blood work is from 07/11/2022: None today. Most recent creatinine was at 2.14. She remains on Demadex and the patient continues to diurese with negative fluid balance. 07/13/2022, the patient remains on 3 L of nasal cannula. Denies having any significant shortness of breath. Resting comfortably in bed. She remains on torsemide. Producing an adequate amount of urine output. Creatinine is down to 1.3 and a 40 and his sodium is a little 42. The white cell count of 7 with a hemoglobin of 8.8. 07/14/2022, clinically stable and no change in her condition. Received Demadex 40 mg by mouth daily. Awaiting discharge. On 07/15/2022, No change in her condition, and the patient is awaiting to be released and discharge planning is in progress. Medications are unchanged. She is tolerating her diet. No complaints. Objective - Vital Signs Vital signs: Vital Signs Temp 97.6 F 07/15/22 09:17 Pulse 94 07/15/22 09:33 Resp 18 07/15/22 09:33 BP 118/77 07/15/22 09:17 Pulse Ox 95 07/15/22 09:17 FiO2 30 07/07/22 03:03 Intake & Output 07/14/22 07/15/22 07/15/22 18:59 06:59 18:59 Intake Total 840 10 Output Total 1575 1200 Balance -735 -1190 Intake: IV 10 0.9 10 Oral 840 Output: Urine 1575 1200 Other: Voiding Method External Catheter External Catheter External Catheter # Bowel Movements 1 - Exam No acute distress, oriented 3. Currently on 2 L. No respiratory distress, or conversational dyspnea. HEENT examination is grossly unremarkable. Neck supple. Full range of motion. No adenopathy thyromegaly or neck vein distention. Cardiovascular examination reveals regular rhythm rate. S1-S2 normal. No S3 or S4. No discernible murmur noted. Heart rate is 83 bpm. Lungs reveal mostly clear breath sounds, with some bibasilar crackles. No wheezes. No rhonchi. Saturations are 97% on 2 L. Abdomen soft bowel sounds are heard. No masses or tenderness. Extremities are intact. No cyanosis or clubbing. Mild lower extremity edema noted. Skin is without rash or lesion. Neurologic examination is brief but nonfocal. - Labs CBC & Chem 7: 07/15/22 11:15 07/13/22 09:03 Labs: Abnormal Lab Results - Last 24 Hours (Table) 07/14/22 07/15/22 Range/Units 20:04 11:15 Hgb 9.0 L (11.4-16.0) gm/dL MCH 20.6 L (25.0-35.0) pg MCHC 25.7 L (31.0-37.0) g/dL RDW 22.7 H (11.5-15.5) % POC Glucose (mg/dL) 120 H (70-110) mg/dL Assessment and Plan Plan: Acute hypoxemic respiratory failure secondary to an acute exacerbation of diastolic congestive heart failure.the patient is currently on 2 L of oxygen nasal cannula. The patient is not using her BiPAP on a regular basis. The patient has a component of chronic hypoxic respiratory failure due to morbid obesity, obstructive sleep apnea and obesity hypoventilation syndrome. She is a chronic CO2 retainer in addition. Her chest x-ray from 2 days back is still showing massive cardiomegaly with pulmonary vessel congestion. The patient is a fluid bolus and the patient was taken off the IV Lasix and she was placed on Demadex 40 mg by mouth daily. She is producing excellent urine output. No signs of any fluid overload. Acute hypercapnic respiratory failure secondary to above. History of ventilatory dependent respiratory failure. Morbid obesity with obstructive sleep apnea syndrome. The patient's sleep evaluation was done in 2018 and at that time the patient had severe NIR with AHI 45 and this was confirmed by polysomnogram and following that the patient was titrated to a CPAP pressure of 16 cm of water in addition to oxygen 2 L/m nasal cannula. Back then, she is to weigh around 3 62 pounds. History of coronary disease. Hypertension. History of DVT. Anxiety. History of chronic kidney disease. History of SVT. Nonsmoker. chronic anemia, hemoglobin of 8.8 and the patient is receiving IV iron infusions. Plan: Continue same treatment Renal function is stable. Reassess is stable. Nothing more can be added from the pulmonary standpoint. Clinically stable PT will be involved in the case The patient continues to be in a negative fluid balance while taking diuretics and she is on Demadex orally With this patient for an outpatient titration with CPAP/BiPAP and arrange for her treatment accordingly Clinically the patient is improving and she is not having any significant shortness of breath Currently she is on oxygen at 2 L nasal cannula and she was switched to room air oxygen She has a BiPAP at the bedside at pressure 14/6 cm of water Increase mobility. Monitor renal function especially the patient is on diure tics and we'll continue to follow. We'll talk also the immigration case worker to arrange outpatient CPAP titration. Awaiting discharge, we will sign off the case and please contact us back should there be any issues with the patient's care. Would like to see an outpatient basis regarding her sleep breathing disorder. She has a CPAP machine at home at 16 cm of water and this should be resumed along with oxygen at 2 L.
[2022-07-15 16:28] VITALS: BP 132/76; TEMP 97.8
[2022-07-15 16:50] VITALS: PULSE 80
[2022-07-15 16:53] LABS: Glucose,Whole Blood 88 mg/dL (70-110)
--- NOTE | 2022-07-15 23:57 | DS ---
DISCHARGE SUMMARY CHIEF COMPLAINT: Acute pulmonary edema. HISTORY OF PRESENT ILLNESS AND PHYSICAL EXAMINATION: Details of this lady's history and physical can be found in the initial workup. LABORATORY STUDIES: While she was in the hospital, she had laboratory studies, details of which can be found in the laboratory section of her chart. COURSE IN THE HOSPITAL: After admission, she was placed on bedrest and she was treated in the ICU. She was seen and followed by Cardiology, Pulmonology, Intensive Medicine, and Nephrology. Her breathing very slowly improved. Kidney function did the same. She was breathing well and she was not having any further nausea or vomiting, and she was cleared by Intensive Medicine and Nephrology as well as Cardiology. She will go home on her usual activity. She is limited to wheelchair movement. She will be on no added salt diet. She will follow up in 1 week with me, and she will also follow up with Cardiology and Nephrology. FINAL DIAGNOSES: 1. Acute pulmonary edema. 2. Chronic congestive heart failure. 3. Cardiomyopathy. 4. Obesity. 5. Pickwickian syndrome. 6. Sleep apnea. 7. Renal failure. 8. Morbid obesity. OPERATIONS: None. CONSULTATIONS: Cardiology, Pulmonology, and Nephrology. MMODL / IJN: [id number] /
--- NOTE | 2022-07-16 00:39 | PN ---
PROGRESS NOTE CHIEF COMPLAINT: Congestive heart failure. HISTORY OF PRESENT ILLNESS: This lady is doing better each day. Renal function is improving, her breathing is much better. She will probably be able to be discharged soon. It is not clear if she is going home or to rehab. PHYSICAL EXAMINATION: CHEST: Breath sounds are heard well on both sides. VITAL SIGNS: Normal. CARDIAC: Normal. IMPRESSION: 1. Acute pulmonary edema. 2. Acute on chronic congestive heart failure. 3. Morbid obesity. 4. Pickwickian syndrome. 5. Sleep apnea. PLAN: She will probably be able to be discharged in the next day or 2 if she continues to improve. MMODL / IJN: [id number] /
--- NOTE | 2022-07-16 00:39 | PN ---
PROGRESS NOTE CHIEF COMPLAINT: Pulmonary edema. HISTORY OF PRESENT ILLNESS: This lady has steadily improved. Breathing is improving. Kidney function is back down to normal. PHYSICAL EXAMINATION: CHEST: Clear. CARDIAC: Exam is normal. ABDOMEN: Remains protuberant, soft, and nontender. IMPRESSION: 1. Acute pulmonary edema. 2. Acute on chronic congestive heart failure. 3. Cardiomyopathy. 4. Sleep apnea. PLAN: Continue with management until she is cleared by Cardiology to be discharged. It is not clear where she would be going. MMODL / IJN: [id number] /
== END 2022-07-15 17:45 | disposition home health service (06) | DRG 291 ==
LOC: EC 14:58 → 3SCARD 17:42 → 2SICU 21:20 → 3SCARD 07-09 12:06
PROVIDERS: ADMIT Family Medicine; ATTEND Family Medicine
PROC: 02HV33Z Insertion of Infusion Device into Superior Vena Cava, Percutaneous Approach (ICD-10-PCS; principal; 2022-07-04 13:20)
PROC: 02HV33Z Insertion of Infusion Device into Superior Vena Cava, Percutaneous Approach (ICD-10-PCS; 2022-07-06)
DX: I13.0 Hypertensive heart and chronic kidney disease with heart failure and stage 1 through stage 4 chronic kidney disease, or unspecified chronic kidney disease (principal); I50.33 Acute on chronic diastolic (congestive) heart failure; J96.21 Acute and chronic respiratory failure with hypoxia; J96.22 Acute and chronic respiratory failure with hypercapnia; E66.2 Morbid (severe) obesity with alveolar hypoventilation; I47.1 Supraventricular tachycardia; J44.1 Chronic obstructive pulmonary disease with (acute) exacerbation; N17.9 Acute kidney failure, unspecified; N18.4 Chronic kidney disease, stage 4 (severe); Z68.44 Body mass index [BMI] 60.0-69.9, adult; K59.00 Constipation, unspecified; D63.1 Anemia in chronic kidney disease; D50.9 Iron deficiency anemia, unspecified; F41.1 Generalized anxiety disorder; I25.10 Atherosclerotic heart disease of native coronary artery without angina pectoris; I27.20 Pulmonary hypertension, unspecified; I42.9 Cardiomyopathy, unspecified; M17.0 Bilateral primary osteoarthritis of knee; Z74.01 Bed confinement status; Z79.2 Long term (current) use of antibiotics; Z79.899 Other long term (current) drug therapy; Z82.49 Family history of ischemic heart disease and other diseases of the circulatory system; Z86.718 Personal history of other venous thrombosis and embolism; Z79.1 Long term (current) use of non-steroidal anti-inflammatories (NSAID)
CPT/HCPCS: 36415; 36573; 36600; 71045; 71046; 80048; 80053; 82803; 82805; 83036; 83540; 83550; 83605; 83735; 83880; 84132; 84145; 84484; 85025; 85027; 85610; 85730; 93005; 93308; 94640; 94660; 94760; 96374; 99285

== ENCOUNTER 2022-07-15 19:06 | Observation (INO) | payer OTHER ==
--- NOTE | 2022-07-15 19:50 | ED ---
SOB HPI - General Stated Complaint: Hypoxia Time Seen by Provider: 07/15/22 19:06 Source: patient, EMS, RN notes reviewed, old records reviewed Mode of arrival: EMS - History of Present Illness Initial Comments: 39-year-old female history of CHF restrictive lung disease who is bed bound at this time who was to go home today after being admitted for pulmonary edema and treated. Upon arrival to the patient's mother's house who is debilitated taking care of her and she did need oxygen. Desaturated to about 85% on room air without any exertion. She lives alone he has no caregiver there either. He was brought back for further evaluation. Patient decided denies any chest pain or shortness breath does require oxygen. No fevers chills sweats or chest pain other complaints modifying factors - Related Data Home Medications Medication Instructions Recorded Confirmed Omeprazole 20 mg PO DAILY 11/05/17 07/03/22 Baclofen [Lioresal] 10 mg PO DAILY 11/20/21 07/03/22 Metoprolol Tartrate [Lopressor] 100 mg PO BID 11/20/21 07/03/22 Previous Rx's Medication Instructions Recorded Darbepoetin Godfrey [Aranesp] 60 mcg SQ Q7D 30 Days #4 each 07/15/22 Magnesium Oxide [Mag-Ox] 400 mg PO DAILY #30 tab 07/15/22 Torsemide [Demadex] 40 mg PO DAILY #30 tab 07/15/22 amLODIPine [Norvasc] 5 mg PO BID #30 tab 07/15/22 Allergies Allergy/AdvReac Type Severity Reaction Status Date / Time No Known Allergies Allergy Verified 07/03/22 17:38 Review of Systems ROS Statement: Those systems with pertinent positive or pertinent negative responses have been documented in the HPI. ROS Other: All systems not noted in ROS Statement are negative. Past Medical History Past Medical History: Coronary Artery Disease (CAD), Chest Pain / Angina, Heart Failure, Hypertension, Osteoarthritis (OA), Renal Disease, Sleep Apnea/CPAP/BIPAP Additional Past Medical History / Comment(s): SVT, sinus pauses, anemia, chronic kidney disease, blood clots-pt stated took xarelto for awhile, arthritis bilateral knees, anemia, constipation, lymphedema History of Any Multi-Drug Resistant Organisms: VRE Date of last positivie culture/infection: 05/03/20 MDRO Source:: VRE URINE Past Surgical History: Section, Hernia Repair Additional Past Surgical History / Comment(s): adominal hernia repair with mesh, cysts removed from stomach Past Anesthesia/Blood Transfusion Reactions: No Reported Reaction Additional Past Anesthesia/Blood Transfusion Reaction / Comment(s): Pt has received blood in the past without reaction. Past Psychological History: Anxiety Additional Psychological History / Comment(s): Pt takes ativan when needed for anxiety and states it helps. Pt lives at home with her 2 children. is independent. no pets. Smoking Status: Never smoker Past Alcohol Use History: None Reported Past Drug Use History: None Reported - Past Family History Father Family Medical History: Congestive Heart Failure (CHF) Additional Family Medical History / Comment(s): Father from CHF. Mother Family Medical History: Cancer, Hypertension, Sleep Apnea/CPAP/BIPAP Additional Family Medical History / Comment(s): Mother has had cancer removed from ear/head. General Exam - General Exam Comments Initial Comments: This is a well-developed well-nourished awake alert oriented 4 female General appearance: alert, in no apparent distress Head exam: Present: atraumatic, normocephalic, normal inspection Eye exam: Present: normal appearance, PERRL, EOMI. Absent: scleral icterus, conjunctival injection, periorbital swelling ENT exam: Present: normal exam, mucous membranes moist Neck exam: Present: normal inspection. Absent: tenderness, meningismus, lymphadenopathy Respiratory exam: Present: decreased breath sounds. Absent: respiratory distress, wheezes, rales, rhonchi, stridor Cardiovascular Exam: Present: regular rate, normal rhythm, normal heart sounds. Absent: systolic murmur, diastolic murmur, rubs, gallop, clicks GI/Abdominal exam: Present: soft, normal bowel sounds. Absent: distended, tenderness, guarding, rebound, rigid Extremities exam: Present: normal inspection, full ROM, normal capillary refill. Absent: tenderness, pedal edema, joint swelling, calf tenderness Back exam: Present: normal inspection Neurological exam: Present: alert, oriented X3, CN II-XII intact Psychiatric exam: Present: normal affect, normal mood Skin exam: Present: warm, dry, intact, normal color. Absent: rash Medical Decision Making - Medical Decision Making This an no further workup is needed I did discuss case Dr. Teressa the patient be readmitted for placement Disposition Clinical Impression: Hypoxemia, Failure of outpatient treatment, History of pulmonary edema, Failure to thrive in adult Disposition: ADMITTED IP TO THIS HOSP Condition: Fair Referrals: Kevin Stanford MD [Primary Care Provider] - 1-2 days Decision Date: 07/15/22 Decision Time: 19:54
[2022-07-15] MEDS ORDERED: NALOXONE 0.4 MG/ML 1 ML VIAL IV PRN (19:54)
[2022-07-15] MEDS: amLODIPine 5 MG TAB PO SCH (20:59)
[2022-07-15] MEDS: METOPROLOL TARTRATE 50 MG TAB PO SCH (20:59)
[2022-07-16] MEDS: amLODIPine 5 MG TAB PO SCH ×2 (09:00→20:03)
[2022-07-16] MEDS: MAGNESIUM OXIDE 400 MG TAB PO SCH (09:00)
[2022-07-16] MEDS: PANTOPRAZOLE 40 MG TABLET PO SCH (09:00)
[2022-07-16] MEDS: BACLOFEN 10 MG TAB PO SCH (09:00)
[2022-07-16] MEDS: METOPROLOL TARTRATE 50 MG TAB PO SCH ×2 (09:00→20:03)
[2022-07-16] MEDS: TORSEMIDE 20 MG TAB PO SCH (09:56)
--- NOTE | 2022-07-17 03:55 | HP ---
HISTORY AND PHYSICAL CHIEF COMPLAINT: Congestive heart failure. HISTORY OF PRESENT ILLNESS: This lady returned immediately to the hospital. She was discharged, stated that she had somebody at home to take care of her (daughter), but when she got there, there was nobody at home. Her daughter works and there is no one else to help the patient. She is nonambulatory. She called ambulance and was brought back to the emergency room. Her history, symptoms, medications, etc., were all unchanged. She has no new symptoms. PHYSICAL EXAMINATION: VITAL SIGNS: Blood pressure 122/74 with a pulse of 83, respirations were 38, and she is afebrile. GENERAL: She appeared to be morbidly obese and in no acute distress. SKIN: Color is normal. HEAD, EARS, EYES, NOSE, MOUTH AND THROAT: Normal. CHEST: Demonstrated good breath sounds bilaterally. CARDIAC: Demonstrated sinus rhythm. ABDOMEN: Protuberant and could not be examined for visceromegaly or tenderness. EXTREMITIES: Normal. NEUROLOGICAL: She is intact. IMPRESSION: She is readmitted to the hospital with diagnosis of, 1. Acute on chronic congestive heart failure. 2. Cardiomyopathy. 3. Sleep apnea. 4. Pickwickian syndrome. 5. Morbid obesity. 6. Renal failure. PLAN: Readmitted to the hospital with resumption of her usual medications and treatments and then look for discharge plan. MMODL / IJN: [id number] /
[2022-07-17] MEDS: METOPROLOL TARTRATE 50 MG TAB PO SCH ×2 (08:29→21:04)
[2022-07-17] MEDS: PANTOPRAZOLE 40 MG TABLET PO SCH (08:29)
[2022-07-17] MEDS: MAGNESIUM OXIDE 400 MG TAB PO SCH (08:29)
[2022-07-17] MEDS: amLODIPine 5 MG TAB PO SCH ×2 (08:29→21:04)
[2022-07-17] MEDS: BACLOFEN 10 MG TAB PO SCH (08:29)
[2022-07-17] MEDS: TORSEMIDE 20 MG TAB PO SCH (08:34)
--- NOTE | 2022-07-17 11:22 | PN ---
PROGRESS NOTE CHIEF COMPLAINT: Congestive heart failure. HISTORY OF PRESENT ILLNESS: This lady is stable. We will now begin to look for some type of a reasonable discharge arrangement. PHYSICAL EXAMINATION: CHEST: Clear. CARDIAC: Normal. ABDOMEN: Soft and massively protuberant. IMPRESSION: Acute on chronic congestive heart failure. PLAN: Resume her usual medications and treatments. MMODL / IJN: [id number] /
[2022-07-18] MEDS: MAGNESIUM OXIDE 400 MG TAB PO SCH (09:42)
[2022-07-18] MEDS: amLODIPine 5 MG TAB PO SCH ×2 (09:42→20:23)
[2022-07-18] MEDS: PANTOPRAZOLE 40 MG TABLET PO SCH (09:42)
[2022-07-18] MEDS: BACLOFEN 10 MG TAB PO SCH (09:42)
[2022-07-18] MEDS: METOPROLOL TARTRATE 50 MG TAB PO SCH ×2 (09:42→20:23)
[2022-07-18] MEDS: TORSEMIDE 20 MG TAB PO SCH (09:42)
--- NOTE | 2022-07-18 13:45 | PN ---
PROGRESS NOTE CHIEF COMPLAINT: Congestive heart failure. HISTORY OF PRESENT ILLNESS: This lady is comfortable, and she is doing well. We are waiting for a discharge plan to be established. She denies chest pain, fever, chills, etc. She is not particularly short of breath. PHYSICAL EXAMINATION: CHEST: Breath sounds are heard bilaterally if she is lying in bed. CARDIAC: Normal. ABDOMEN: Soft, nontender. IMPRESSION: 1. Congestive heart failure. 2. Cardiomyopathy. 3. Sleep apnea. 4. Pickwickian syndrome. 5. Renal failure. PLAN: No change in her management at this time. MMODL / IJN: [id number] /
[2022-07-19] MEDS ORDERED: ACETAMINOPHEN TAB 325 MG TAB PO STA (01:54)
[2022-07-19] MEDS: MAGNESIUM OXIDE 400 MG TAB PO SCH (07:53)
[2022-07-19] MEDS: PANTOPRAZOLE 40 MG TABLET PO SCH (07:53)
[2022-07-19] MEDS: BACLOFEN 10 MG TAB PO SCH (07:53)
[2022-07-19] MEDS: TORSEMIDE 20 MG TAB PO SCH (07:53)
[2022-07-19] MEDS: METOPROLOL TARTRATE 50 MG TAB PO SCH ×2 (07:53→21:36)
[2022-07-19] MEDS: amLODIPine 5 MG TAB PO SCH ×2 (07:53→21:36)
[2022-07-20] MEDS: MAGNESIUM OXIDE 400 MG TAB PO SCH (10:15)
[2022-07-20] MEDS: BACLOFEN 10 MG TAB PO SCH (10:15)
[2022-07-20] MEDS: METOPROLOL TARTRATE 50 MG TAB PO SCH ×2 (10:15→20:38)
[2022-07-20] MEDS: amLODIPine 5 MG TAB PO SCH ×2 (10:15→20:38)
[2022-07-20] MEDS: PANTOPRAZOLE 40 MG TABLET PO SCH (10:15)
[2022-07-20] MEDS: TORSEMIDE 20 MG TAB PO SCH (10:16)
[2022-07-20 12:09] LABS: Anisocytosis Moderate; Basophils # (A) 0.1 k/uL (0-0.2); Basophils % (A) 1 %; Eosinophils # (A) 0.2 k/uL (0-0.7); Eosinophils % (A) 3 %; HCT 40.8 % (34.0-46.0); HGB 10.8 gm/dL (11.4-16.0); Hypochromasia Marked; Lymphocytes % (A) 14 %; MCH 22.1 pg (25.0-35.0); MCHC 26.6 g/dL (31.0-37.0); MCV 83.2 fL (80.0-100.0); Mean Platelet Volume 9.5; Microcytosis Slight; Monocytes # (A) 0.2 k/uL (0-1.0); Monocytes % (A) 3 %; Neutrophils # (A) 5.6 k/uL (1.3-7.7); Neutrophils % (A) 76 %; Platelet Count 252 k/uL (150-450); WBC 7.4 k/uL (3.8-10.6)
--- NOTE | 2022-07-20 12:17 | PN ---
PROGRESS NOTE DATE OF SERVICE: 07/18/2022 CHIEF COMPLAINT: Congestive heart failure. HISTORY OF PRESENT ILLNESS: This lady is stable with no change. We are awaiting a new discharge plan. PHYSICAL EXAMINATION: CHEST: Clear. CARDIAC: Normal. IMPRESSION: 1. Acute congestive heart failure. 2. Chronic congestive heart failure. 3. Morbid obesity. 4. Sleep apnea. 5. Cardiomyopathy. PLAN: No change in program and await her discharge plan and location. MMODL / IJN: [id number] /
[2022-07-20 12:27] LABS: ALT 17 U/L (4-34); AST 31 U/L (14-36); African American GFR (CKD) 23 (>60 ml/min/1.73 sqM); Albumin 4.3 g/dL (3.5-5.0); Albumin/Globulin Ratio 1.1; Alkaline Phosphatase 66 U/L (38-126); Anion Gap 11 mmol/L; Blood Urea Nitrogen 61 mg/dL (7-17); Calcium 9.3 mg/dL (8.4-10.2); Chloride 91 mmol/L (98-107); Glucose 85 mg/dL (74-99); Non-African American GFR(CKD) 20 (>60 ml/min/1.73 sqM); Potassium 4.5 mmol/L (3.5-5.1); Sodium 142 mmol/L (137-145); Total Bilirubin 0.8 mg/dL (0.2-1.3); Total Protein 8.3 g/dL (6.3-8.2)
[2022-07-20 12:33] LABS: Carbon Dioxide 40 mmol/L (22-30)
[2022-07-20 12:45] VITALS: BMI 47.0
--- NOTE | 2022-07-20 18:26 | PN ---
PROGRESS NOTE The patient is only in the hospital because she does not have any place to go. She was discharged last week when she said that she had help at home. She went home, and there was nobody there at all to take care of her. She lives in a wheelchair and takes numerous medications and cannot take care of herself in terms of feeding, toileting, dressing, moving about, or any other of the ADLs. She requires placement in a facility, where these needs can be met. MMODL / IJN: [id number] /
--- NOTE | 2022-07-20 21:23 | PN ---
PROGRESS NOTE CHIEF COMPLAINT: Congestive heart failure, general debility, and failure to thrive. HISTORY OF PRESENT ILLNESS: This lady has been stable. There has been no interval change. We are waiting on discharge plan. She cannot return home with no help. PHYSICAL EXAMINATION: CHEST: Clear. IMPRESSION: 1. [id number] congestive heart failure. 2. Cardiomyopathy. 3. Pickwickian syndrome. 4. Sleep apnea. 5. Obesity. 6. Borderline renal function. PLAN: Await discharge location from [facility]. MMODL / IJN: [id number] /
[2022-07-21] MEDS: METOPROLOL TARTRATE 50 MG TAB PO SCH ×2 (07:57→20:43)
[2022-07-21] MEDS: TORSEMIDE 20 MG TAB PO SCH (07:57)
[2022-07-21] MEDS: amLODIPine 5 MG TAB PO SCH ×2 (07:58→20:43)
[2022-07-21] MEDS: MAGNESIUM OXIDE 400 MG TAB PO SCH (07:58)
[2022-07-21] MEDS: PANTOPRAZOLE 40 MG TABLET PO SCH (07:58)
[2022-07-21] MEDS: BACLOFEN 10 MG TAB PO SCH (07:58)
[2022-07-21] MEDS: ACETAMINOPHEN TAB 325 MG TAB PO PRN (20:43)
[2022-07-22] MEDS: MAGNESIUM OXIDE 400 MG TAB PO SCH (09:35)
[2022-07-22] MEDS: PANTOPRAZOLE 40 MG TABLET PO SCH (09:35)
[2022-07-22] MEDS: amLODIPine 5 MG TAB PO SCH ×2 (09:35→20:40)
[2022-07-22] MEDS: BACLOFEN 10 MG TAB PO SCH (09:35)
[2022-07-22] MEDS: METOPROLOL TARTRATE 50 MG TAB PO SCH ×2 (09:35→20:40)
[2022-07-22] MEDS: TORSEMIDE 20 MG TAB PO SCH (09:36)
[2022-07-22] MEDS: ACETAMINOPHEN TAB 325 MG TAB PO PRN (20:40)
--- NOTE | 2022-07-23 01:10 | PN ---
PROGRESS NOTE CHIEF COMPLAINT: Congestive heart failure. HISTORY OF PRESENT ILLNESS: This lady is comfortable. She is having no problems with chest pain, shortness of breath, nausea, etc. This hospital is still working on a discharge location and plan. Until then, she will be staying in the hospital. PHYSICAL EXAMINATION: CHEST: Clear. CARDIAC: Normal. ABDOMEN: Protuberant, soft. EXTREMITIES: Normal. NEUROLOGIC: She is awake and alert. IMPRESSION: 1. Acute on chronic congestive heart failure. 2. Cardiomyopathy. 3. Morbid obesity. 4. Sleep apnea. 5. Pickwickian syndrome. PLAN: She is stable and can be discharged once a discharge location and plan are in place. MMODL / IJN: [id number] /
[2022-07-23] MEDS: PANTOPRAZOLE 40 MG TABLET PO SCH (09:03)
[2022-07-23] MEDS: BACLOFEN 10 MG TAB PO SCH (09:03)
[2022-07-23] MEDS: amLODIPine 5 MG TAB PO SCH ×2 (09:03→21:03)
[2022-07-23] MEDS: METOPROLOL TARTRATE 50 MG TAB PO SCH ×2 (09:03→21:03)
[2022-07-23] MEDS: MAGNESIUM OXIDE 400 MG TAB PO SCH (09:03)
[2022-07-23] MEDS: TORSEMIDE 20 MG TAB PO SCH (09:04)
[2022-07-23] MEDS: ACETAMINOPHEN TAB 325 MG TAB PO PRN (14:30)
--- NOTE | 2022-07-23 16:40 | DS ---
DISCHARGE SUMMARY CHIEF COMPLAINT: General debility and failure to thrive at home. HISTORY OF PRESENT ILLNESS AND PHYSICAL EXAMINATION: Details of this lady's history and physical can be found in the initial workup. LABORATORY STUDIES: While she was in the hospital, she had laboratory studies, details can be found in the laboratory section of her chart. COURSE IN THE HOSPITAL: After admission, she was placed on bedrest, started on intravenous fluids and her congestive heart failure management was resumed. The reason that she had to come back in the hospital was she stated that she could be discharged previously and had help at home. When she arrived home, there is nobody there and she came back to the emergency room. Arrangements are now made for her to go to [facility] on the [place]. FINAL DIAGNOSES: 1. General debility and failure to thrive. 2. Morbid obesity. 3. Acute on chronic congestive heart failure. 4. Cardiomyopathy. 5. Pickwickian syndrome. 6. Sleep apnea. 7. Morbid obesity. 8. Chronic kidney disease. OPERATIONS: None. CONSULTATIONS: None. She is improved. MORENO / CEZARN: [id number] /
--- NOTE | 2022-07-24 06:07 | PN ---
PROGRESS NOTE DATE OF SERVICE: 07/20/2022 CHIEF COMPLAINT: Cardiomyopathy, heart failure, and renal failure. HISTORY OF PRESENT ILLNESS: This lady is comfortable and waiting for some type of a discharge plan and location to develop. She denies any pain, shortness of breath, nausea, etc. PHYSICAL EXAMINATION: CHEST: Clear. CARDIAC: Normal. ABDOMEN: Soft and nontender. IMPRESSION: 1. Chronic congestive heart failure. 2. Cardiomyopathy. 3. Sleep apnea. 4. Obesity. 5. Renal failure. PLAN: Continue to work on placement. MMODL / IJN: [id number] /
--- NOTE | 2022-07-24 06:49 | PN ---
PROGRESS NOTE DATE OF SERVICE: 07/22/2022 CHIEF COMPLAINT: Congestive heart failure and failure to thrive. HISTORY OF PRESENT ILLNESS: This lady is stable and we are awaiting some type of a discharge plan. She cannot return home. She feels fine otherwise and she has had no shortness of breath or chest pain. PHYSICAL EXAMINATION: CHEST: Clear. CARDIAC: Normal as well as can be heard. ABDOMEN: Protuberant and nontender. IMPRESSION: 1. Failure to thrive with general debility. 2. Morbid obesity. 3. Congestive heart failure. 4. Renal failure. PLAN: Discharge location and plan are still being sought. MMODL / IJN: [id number] /
[2022-07-24] MEDS: TORSEMIDE 20 MG TAB PO SCH (08:21)
[2022-07-24] MEDS: METOPROLOL TARTRATE 50 MG TAB PO SCH (08:21)
[2022-07-24] MEDS: PANTOPRAZOLE 40 MG TABLET PO SCH (08:22)
[2022-07-24] MEDS: BACLOFEN 10 MG TAB PO SCH (08:22)
[2022-07-24] MEDS: MAGNESIUM OXIDE 400 MG TAB PO SCH (08:22)
[2022-07-24] MEDS: amLODIPine 5 MG TAB PO SCH (08:22)
[2022-07-24 12:03] VITALS: BP 143/79; PULSE 57; RESP 18; TEMP 97.8
[2022-07-24] MEDS: ACETAMINOPHEN TAB 325 MG TAB PO PRN (13:51)
--- NOTE | 2022-07-25 18:29 | PN ---
PROGRESS NOTE DATE OF SERVICE: 07/24/2022 CHIEF COMPLAINT: Congestive heart failure. HISTORY OF PRESENT ILLNESS: This lady was to have gone to the jail yesterday. Discharge was put in, and the discharge summary was dictated on the stat line. For some reason, the report did not come across until later in the afternoon negating her ability to go to the jail. So, she is in the hospital for an additional day. Case Management called [employer], who told her that there is a 3-hour time lag even on this stat line for title closer. She will go today. There has been no change in physical exam or vital signs. MMODL / IJN: [id number] /
== END 2022-07-24 14:25 ==
LOC: EC 19:06 → 6NMEDSUR 19:55 → 4SSUR 07-16 10:57 → 5NMEDONC 07-16 16:44
PROVIDERS: ADMIT Family Medicine; ATTEND Family Medicine
DX: I13.0 Hypertensive heart and chronic kidney disease with heart failure and stage 1 through stage 4 chronic kidney disease, or unspecified chronic kidney disease (principal); I50.9 Heart failure, unspecified; N18.9 Chronic kidney disease, unspecified; R62.7 Adult failure to thrive; D63.1 Anemia in chronic kidney disease; I42.9 Cardiomyopathy, unspecified; E66.2 Morbid (severe) obesity with alveolar hypoventilation; Z68.42 Body mass index [BMI] 45.0-49.9, adult; R53.81 Other malaise; R09.02 Hypoxemia; J98.4 Other disorders of lung; I25.10 Atherosclerotic heart disease of native coronary artery without angina pectoris; M17.0 Bilateral primary osteoarthritis of knee; I47.1 Supraventricular tachycardia; F41.9 Anxiety disorder, unspecified; Z60.2 Problems related to living alone; Z74.01 Bed confinement status; Z79.899 Other long term (current) drug therapy; Z16.22 Resistance to vancomycin related antibiotics; Z98.891 History of uterine scar from previous surgery; Z86.79 Personal history of other diseases of the circulatory system; Z98.890 Other specified postprocedural states; Z82.49 Family history of ischemic heart disease and other diseases of the circulatory system; Z80.8 Family history of malignant neoplasm of other organs or systems; Z83.6 Family history of other diseases of the respiratory system
CPT/HCPCS: 99285; 97110; 97530 ×11; 97162; 97535 ×2; 97166; 80053; 85025; G0378 ×12

== ENCOUNTER 2022-12-18 20:39 | Inpatient (IN) | payer OTHER ==
[2022-12-18] MEDS ORDERED: FUROSEMIDE 10 MG/ML 4 ML VIAL IV STA (21:45)
[2022-12-18 22:09] LABS: Albumin 3.4 g/dL (3.5-5.0); Calcium 8.9 mg/dL (8.4-10.2); Magnesium 2.2 mg/dL (1.6-2.3); Potassium 4.5 mmol/L (3.5-5.1); Total Bilirubin 0.5 mg/dL (0.2-1.3); Total Protein 7.4 g/dL (6.3-8.2)
[2022-12-18 22:11] LABS: Anisocytosis Slight; HCT 34.1 % (34.0-46.0); HGB 9.7 gm/dL (11.4-16.0); Hypochromasia Marked; MCH 22.8 pg (25.0-35.0); MCHC 28.3 g/dL (31.0-37.0); MCV 80.3 fL (80.0-100.0); Mean Platelet Volume 10.8; Microcytosis Slight; Platelet Count 262 k/uL (150-450); Poikilocytosis Moderate; RBC 4.24 m/uL (3.80-5.40); RDW 18.7 % (11.5-15.5)
[2022-12-18 22:12] LABS: VBG PH 7.3 (7.31-7.41)
[2022-12-18 22:16] LABS: INR 1.1 (<1.2); Partial Thromboplastin Time 24.2 sec (22.0-30.0); Prothrombin Time 11.1 sec (9.0-12.0)
--- NOTE | 2022-12-18 22:52 | XR ---
EXAMINATION TYPE: XR chest 1V DATE OF EXAM: 12/18/2022 COMPARISON: 07/07/2022 HISTORY: Short of breath TECHNIQUE: Single view FINDINGS: Heart is enlarged. There is pulmonary interstitial and airspace edema. Exam limited by rota tion and positioning. There are chest leads. IMPRESSION: There is pulmonary edema that could be heart failure or RDS and similar to old exam. Daniel cohen exam.
--- NOTE | 2022-12-18 23:30 | CT ---
EXAMINATION TYPE: CT abdomen pelvis w con DATE OF EXAM: 12/18/2022 COMPARISON: 01/04/2018 HISTORY: Acute abdominal pain, SOB CT DLP: 5776 mGycm Automated exposure control for dose reduction was used. CONTRAST: Performed with IV Contrast, patient injected with 100ml mL of Isovue 300. Exam limited by patient size. Images obtained from the diaphragm to the floor the pelvis with the IV contrast. Heart is enlarged. There is infiltrate and atelectasis at both lung bases. No pleural effusion. Liver and spleen are intact. The bile ducts are not dilated. The stomach is intact. No evidence of pancrea tic mass. There is no adrenal mass. Kidneys show satisfactory contrast opacification. No hydronephrosis. Ureter s are not dilated. No retroperitoneal adenopathy. Urinary bladder is almost empty. There is enlargeme nt of the uterus with bulky uterine fundus. Uterus measures 11 cm in anterior-posterior dimension. Th ere are small amount of air in the endometrial cavity. There is hypodensity along the anterior uterin e fundus measuring 8 cm and consistent with a fibroid. No free fluid in the pelvis. There is no evidence of a bowel obstruction. No evidence of pneumoperitoneum. No sign of mesenteric e isauro. There is extensive subcutaneous edema around the abdomen and pelvis. The lumbar spine is intact. No c ompression fracture. The bony pelvis is intact. The hip joints are intact no ascites. IMPRESSION: Extensive subcutaneous edema around the abdomen could relate to congestive heart failure. Also consid er panniculitis. This appears new compared to old exam. Enlarged uterus with air in the uterine fundus. Endometritis is possible. Uterine fibroid. Cardiomegaly with infiltrates and atelectasis at the lung bases. Heart is increased compared to the o ld exam. Pulmonary infiltrates are new compared to old exam.
[2022-12-18 23:35] LABS: Anisocytosis (M) Present; Basophils # (M) 0.09 k/uL (0-0.2); Eosinophils # (M) 0.09 k/uL (0-0.7); Lymphocytes # (M) 1.32 k/uL (1.0-4.8); Monocytes # (M) 0.62 k/uL (0-1.0); Neutrophils # (M) 6.86 k/uL (1.3-7.7); Neutrophils % (M) 78 %; Nucleated Red Blood Cells 1 /100 WBC (0-0); Poikilocytosis (M) Present; Polychromasia Present; Total Cells Counted 200; WBC 8.8 k/uL (3.8-10.6)
[2022-12-18] MEDS ORDERED: AZITHROMYCIN 500 MG in SODIUM CHLORIDE 0.9% 250 ML IVPB STA (23:48)
[2022-12-19] MEDS ORDERED: NALOXONE 0.4 MG/ML 1 ML VIAL IV PRN (00:27)
--- NOTE | 2022-12-19 00:27 | ED ---
General Adult HPI - General Chief complaint: Shortness of Breath Stated complaint: SOB Time Seen by Provider: 12/18/22 21:13 Source: patient, EMS Mode of arrival: EMS Limitations: no limitations, physical limitation - History of Present Illness Initial comments: This is a 47-year-old female who presented to the emergency department via EMS for increasing shortness of breath. The patient does have a reported past medical history including hypertension, CHF and morbid obesity presents emergency department for this shortness of breath. The patient stated that she feels as if her "breathing was fading off" so she came to the emergency department. The patient had seen her primary care physician 6 days ago on a virtual visit and was doing well at that time. The patient reportedly on arrival was covered in a significant amount of cockroaches and dirt and needed to be decontaminated on arrival. The patient was reportedly sleeping on a air mattress in her mother's kitchen. The patient did state however that she was ambulatory and taking her medications as prescribed but stated that she felt as if she was having increasing lower extremity swelling. The patient denied any fevers, chills as well as any recent sick contacts. The patient denied any other acute pain. - Related Data Home Medications Medication Instructions Recorded Confirmed Omeprazole 20 mg PO DAILY 11/05/17 07/15/22 Previous Rx's Medication Instructions Recorded Darbepoetin Godfrey [Aranesp] 60 mcg SQ Q7D 30 Days #4 each 07/15/22 Magnesium Oxide [Mag-Ox] 400 mg PO DAILY #30 tab 07/15/22 Torsemide [Demadex] 40 mg PO DAILY #30 tab 07/15/22 amLODIPine [Norvasc] 5 mg PO BID #30 tab 07/15/22 Metoprolol Tartrate [Lopressor] 50 mg PO BID 30 Days #60 tab 07/23/22 Allergies Allergy/AdvReac Type Severity Reaction Status Date / Time No Known Allergies Allergy Verified 07/03/22 17:38 Review of Systems ROS Statement: Those systems with pertinent positive or pertinent negative responses have been documented in the HPI. ROS Other: All systems not noted in ROS Statement are negative. Past Medical History Past Medical History: Coronary Artery Disease (CAD), Chest Pain / Angina, Heart Failure, Deep Vein Thrombosis (DVT), Hypertension, Osteoarthritis (OA), Renal Disease, Sleep Apnea/CPAP/BIPAP, Supraventricular Tachycardia (SVT) Additional Past Medical History / Comment(s): Pt recently admitted to [facility] on 07/03/22-07/15/22 with acute pulmonary edema. Other hx: Chronic CHF, home oxygen at 3L/NC prn, NIR/no device, previous ventilator dependent respiratory failure, sinus pauses, CKD stage IV, anemia, lymphedema, arthritis bilateral knees, hiatal hernia, diverticular disease, UTIs, constipation, urine and bowel incontinence. History of Any Multi-Drug Resistant Organisms: VRE Date of last positivie culture/infection: 05/03/20 MDRO Source:: VRE URINE Past Surgical History: Section, Hernia Repair Additional Past Surgical History / Comment(s): adominal hernia repair with mesh, cysts removed from stomach, EGD, colonoscopy Past Anesthesia/Blood Transfusion Reactions: No Reported Reaction Additional Past Anesthesia/Blood Transfusion Reaction / Comment(s): Pt has received blood in the past without reaction. Past Psychological History: Anxiety Smoking Status: Never smoker - Past Family History Father Family Medical History: Congestive Heart Failure (CHF) Additional Family Medical History / Comment(s): Father from CHF. Mother Family Medical History: Cancer, Hypertension, Sleep Apnea/CPAP/BIPAP Additional Family Medical History / Comment(s): Mother has had cancer removed from ear/head. General Exam Limitations: no limitations, physical limitation General appearance: alert, in no apparent distress, obese (Severely morbidly obese) Head exam: Present: atraumatic, normocephalic, normal inspection Eye exam: Present: normal appearance, PERRL Pupils: Present: normal accommodation ENT exam: Present: normal exam, normal oropharynx, mucous membranes moist Neck exam: Present: normal inspection, full ROM Respiratory exam: Present: decreased breath sounds Cardiovascular Exam: Present: regular rate, normal rhythm, normal heart sounds GI/Abdominal exam: Present: distended (Tenderness noted all abdominal quadrants with pitting edema noted to the abdominal wall), tenderness Extremities exam: Present: pedal edema, other (Left upper extremity more swollen than the right upper extremity but stated that this is at her baseline for the last 2 years.). Absent: normal inspection Back exam: Present: normal inspection, full ROM Neurological exam: Present: alert, oriented X3, CN II-XII intact Psychiatric exam: Present: normal affect, normal mood Skin exam: Present: warm, dry Course Vital Signs 03/21/23 03/21/23 03/21/23 21:02 22:07 22:08 Pulse Rate 86 87 Respiratory 22 18 Rate Blood Pressure 147/98 O2 Sat by Pulse 98 86 L 97 Oximetry EKG Findings - EKG Comments: EKG Findings:: An EKG was obtained and was interpreted by myself showing a rate of 82, W[place] interval 199, QRS duration of 76 and QTC of 406. This EKG showed a normal sinus rhythm with no ST segment elevation or depression noted. Medical Decision Making - Medical Decision Making Was pt. sent in by a medical professional or institution (, PA, DEVULCANIZER OPERATOR, urgent care, hospital, or care home...) When possible be specific @ -No Did you speak to anyone other than the patient for history (EMS, parent, family, police, friend...)? What history was obtained from this source @ -No Did you review nursing and triage notes (agree or disagree)? Why? @ -I reviewed and agree with nursing and triage notes Were old charts reviewed (outside hosp., previous admission, EMS record, old EKG, old radiological studies, urgent care reports/EKG's, care home records)? Report findings @ -No old charts were reviewed Differential Diagnosis (chest pain, altered mental status, abdominal pain women, abdominal pain men, vaginal bleeding, weakness, fever, dyspnea, syncope, headache, dizziness, GI bleed, back pain, seizure, CVA, palpatations, mental he alth)? @ -CHF exacerbation, COPD exacerbation, pneumonia EKG interpreted by me (3pts min.). @ -As above X-rays interpreted by me (1pt min.). @ -Chest x-ray was obtained and was interpreted by myself showing pulmonary edema that could be heart failure or RDS and similar to old exam. It was limited however due to habitus CT interpreted by me (1pt min.). @ -CT of the abdomen and pelvis with contrast was obtained and was interpreted by myself and showed extensive subcutaneous edema around the abdomen that could relate to congestive heart failure. A consideration for panniculitis was also noted by the radiologist. It does appear new compared to the old exam. There was also an enlarged uterus with air and the uterine fundus. Endometritis is also possible. The patient denied any pain or discomfort in this region however. There is also noted cardiomegaly with infiltrates and atelectasis lung bases. There was pulmonary infiltrates that are new compared to the old exam. U/S interpreted by me (1pt. min.). @ -None done What testing was considered but not performed or refused? (CT, X-rays, U/S, la bs)? Why? @ -None What meds were considered but not given or refused? Why? @ -None Did you discuss the management of the patient with other professionals (professionals i.e. DrMary Ann, PA, DEVULCANIZER OPERATOR, lab, RT, psych nurse, renal social worker, office administration instructor, teacher, armed custom protection officer, corrections caseworker)? Give summary @ -Yes, admitting physician Was smoking cessation discussed for >3mins.? @ -No Was critical care preformed (if so, how long)? @ -No Were there social determinants of health that impacted care today? How? (Homelessness, low income, unemployed, alcoholism, drug addiction, transportation, low edu. Level, literacy, decrease access to med. care, fpc, rehab)? @ -Morbid obesity with poor living conditions Was there de-escalation of care discussed even if they declined (Discuss DNR or withdrawal of care, Hospice)? DNR status @ -No What co-morbidities impacted this encounter? (DM, HTN, Smoking, COPD, CAD, Cancer, CVA, ARF, Chemo, Hep., AIDS, mental health diagnosis, sleep apnea, morbid obesity)? @ -Morbid obesity, hypertension, CHF Was patient admitted / discharged? Hospital course, mention meds given and ro blanco, prescriptions, significant lab abnormalities, going to OR and other pertinent info. @ -The patient was seen and evaluated in the emergency department. Physical exam, the patient was resting in bed with shortness of breath however was in no distress. Vital signs admission did show 86% oxygen saturation on her home O2 requirement of 3 L. The patient needed to be increased to 6 L on arrival. Due to the nature the patient's complaints, workup was obtained. The patient is likely suffering from a CHF exacerbation as well as community acquired pneumonia based on CT findings. The patient was given antibiotics but denied of any signs of sepsis at this time. Due to the patient's hypoxia in the setting of continued quite pneumonia and CHF exacerbation, the patient will be admitted for further workup and evaluation. The patient's primary care physician was contacted and accepted the patient for admission. The patient was accepted and remained in stable condition. Undiagnosed new problem with uncertain prognosis? @ -No Drug Therapy requiring intensive monitoring for toxicity (Heparin, Nitro, Insulin, Cardizem)? @ -No Were any procedures done? @ -No Diagnosis/symptom? @ -Acute hypoxic respiratory failure secondary to community-acquired pneumonia and CHF exacerbation Acute, or Chronic, or Acute on Chronic? @ -Acute Uncomplicated (without systemic symptoms) or Complicated (systemic symptoms)? @ -Complicated Side effects of treatment? @ -No Exacerbation, Progression, or Severe Exacerbation? @ -Exacerbation Poses a threat to life or bodily function? How? (Chest pain, [place], [place], pneumonia, PE, COPD, DKA, ARF, appy, cholecystitis, CVA, Diverticulitis, Homicidal, Suicidal, threat to staff... and all critical care pts) @ -Yes, worsening CHF and hypoxia can cause permanent damage and possible . - Lab Data Result diagrams: 12/18/22 21:37 12/18/22 21:37 Lab Results 12/18/22 12/18/22 12/18/22 Range/Units 21:37 21:37 21:37 WBC 8.8 (3.8-10.6) k/uL RBC 4.24 (3.80-5.40) m/uL Hgb 9.7 L (11.4-16.0) gm/dL Hct 34.1 (34.0-46.0) % MCV 80.3 (80.0-100.0) fL MCH 22.8 L (25.0-35.0) pg MCHC 28.3 L (31.0-37.0) g/dL RDW 18.7 H (11.5-15.5) % Plt Count 262 (150-450) k/uL MPV 10.8 Neutrophils % (Manual) 78 % Lymphocytes % (Manual) 15 % Monocytes % (Manual) 7 % Eosinophils % (Manual) 1 % Basophils % (Manual) 1 % Neutrophils # (Manual) 6.86 (1.3-7.7) k/uL Lymphocytes # (Manual) 1.32 (1.0-4.8) k/uL Monocytes # (Manual) 0.62 (0-1.0) k/uL Eosinophils # (Manual) 0.09 (0-0.7) k/uL Basophils # (Manual) 0.09 (0-0.2) k/uL Nucleated RBCs 1 H (0-0) /100 WBC Manual Slide Review Performed Polychromasia Present Hypochromasia Marked Poikilocytosis Moderate Poikilocytosis (manual Present Anisocytosis Slight Anisocytosis (manual) Present Microcytosis Slight PT 11.1 (9.0-12.0) sec INR 1.1 (<1.2) APTT 24.2 (22.0-30.0) sec VBG pH (7.31-7.41) VBG pCO2 (37-51) mmHg VBG HCO3 (24-28) mmol/L Sodium 139 (137-145) mmol/L Potassium 4.5 (3.5-5.1) mmol/L Chloride 108 H (98-107) mmol/L Carbon Dioxide 26 (22-30) mmol/L Anion Gap 5 mmol/L BUN 42 H (7-17) mg/dL Creatinine 2.04 H (0.52-1.04) mg/dL Est GFR (CKD-EPI)AfAm 33 (>60 ml/min/1.73 sqM) Est GFR (CKD-EPI)NonAf 28 (>60 ml/min/1.73 sqM) Glucose 108 H (74-99) mg/dL Calcium 8.9 (8.4-10.2) mg/dL Magnesium 2.2 (1.6-2.3) mg/dL Total Bilirubin 0.5 (0.2-1.3) mg/dL AST 23 (14-36) U/L ALT 16 (4-34) U/L Alkaline Phosphatase 93 (38-126) U/L Troponin I (0.000-0.034) ng/mL NT-Pro-B Natriuret Pep pg/mL Total Protein 7.4 (6.3-8.2) g/dL Albumin 3.4 L (3.5-5.0) g/dL Lipase 69 (23-300) U/L 12/18/22 12/18/22 12/18/22 Range/Units 21:37 21:37 22:05 WBC (3.8-10.6) k/uL RBC (3.80-5.40) m/uL Hgb (11.4-16.0) gm/dL Hct (34.0-46.0) % MCV (80.0-100.0) fL MCH (25.0-35.0) pg MCHC (31.0-37.0) g/dL RDW (11.5-15.5) % Plt Count (150-450) k/uL MPV Neutrophils % (Manual) % Lymphocytes % (Manual) % Monocytes % (Manual) % Eosinophils % (Manual) % Basophils % (Manual) % Neutrophils # (Manual) (1.3-7.7) k/uL Lymphocytes # (Manual) (1.0-4.8) k/uL Monocytes # (Manual) (0-1.0) k/uL Eosinophils # (Manual) (0-0.7) k/uL Basophils # (Manual) (0-0.2) k/uL Nucleated RBCs (0-0) /100 WBC Manual Slide Review Polychromasia Hypochromasia Poikilocytosis Poikilocytosis (manual Anisocytosis Anisocytosis (manual) Microcytosis PT (9.0-12.0) sec INR (<1.2) APTT (22.0-30.0) sec VBG pH 7.30 L (7.31-7.41) VBG pCO2 52 H (37-51) mmHg VBG HCO3 25 (24-28) mmol/L Sodium (137-145) mmol/L Potassium (3.5-5.1) mmol/L Chloride (98-107) mmol/L Carbon Dioxide (22-30) mmol/L Anion Gap mmol/L BUN (7-17) mg/dL Creatinine (0.52-1.04) mg/dL Est GFR (CKD-EPI)AfAm (>60 ml/min/1.73 sqM) Est GFR (CKD-EPI)NonAf (>60 ml/min/1.73 sqM) Glucose (74-99) mg/dL Calcium (8.4-10.2) mg/dL Magnesium (1.6-2.3) mg/dL Total Bilirubin (0.2-1.3) mg/dL AST (14-36) U/L ALT (4-34) U/L Alkaline Phosphatase (38-126) U/L Troponin I 0.057 H* (0.000-0.034) ng/mL NT-Pro-B Natriuret Pep 37184 pg/mL Total Protein (6.3-8.2) g/dL Albumin (3.5-5.0) g/dL Lipase (23-300) U/L Disposition Clinical Impression: Hypoxia, CHF exacerbation, CAP (community acquired pneumonia), Morbid obesity, Acute respiratory distress syndrome in adult Disposition: ADMITTED IP TO THIS HOSP Condition: Stable Is patient prescribed a controlled substance at d/c from ED?: No Time of Disposition: 23:00 Decision to Admit Reason: Admit from EC Decision Date: 12/18/22 Decision Time: 23:00
[2022-12-19] MEDS: FUROSEMIDE 10 MG/ML 10 ML VIAL IV SCH ×2 (14:11→21:47)
[2022-12-19] MEDS: cloNIDine HCL 0.1 MG TAB PO SCH ×2 (19:00→21:47)
[2022-12-19] MEDS ORDERED: NON FORMULARY DRUG (Metoprolol Tartrate [Lopressor] 100 MG Tablet) PO SCH (21:00)
[2022-12-19] MEDS: MAGNESIUM OXIDE 400 MG TAB PO SCH (21:47)
[2022-12-19] MEDS ORDERED: NON FORMULARY DRUG (Hydralazine Hcl [Apresoline] 100 MG Tablet) PO SCH (22:00)
--- NOTE | 2022-12-20 01:58 | P.CNPUL ---
History of Present Illness Consult date: 12/20/22 Requesting physician: Rosales Mccormack Reason for consult: dyspnea Chief complaint: Shortness of breath for 3 days History of present illness: I'm seeing this patient in new consultation today 12/20/2022 for progressive shortness of breath. This is a 47-year-old -Serbian female with past medical history of CHF, hypertension, morbid obesity, obstructive sleep apnea without CPAP, home O2 3 L nasal cannula mostly at night, previous ventilator dependent respiratory failure, hypertension, chronic kidney disease stage IV, lymphedema, anemia, urinary tract infections. Patient is currently resting in bed, drowsy but arousable and oriented, on 6 L nasal cannula. She is somewhat a poor historian, but states that her shortness breath started approximately 3 days ago. She has associated lower extremity swelling which is 2-3+ bilaterally. Patient denies cough, fever, chest pain. Denies sick contacts. She has swelling of the left upper extremity, she is unable to tell me when this started. Chest x-ray performed on admission showed cardiomegaly and pulmonary edema that could be related to heart failure versus ARDS. A follow-up enhanced abdomen pelvis CT redemonstrated the patient's cardiomegaly with bibasilar infiltrates and atelectasis. Most recent echocardiogram performed on 07/05/2022 showed a preserved ejection fraction of 55-60% and overall limited views due to patient's body habitus. ProBNP was elevated at 12,500. She is receiving Lasix 80 mg IV every 12 hours and spironolactone daily. Patient's fluid balance is -4 L. VBG done on arrival showed a pH of 7.3, pCO2 52. Patient's CBC on arrival showed a WBC count of 8.8, hemoglobin 9.7, hematocrit 34.1, platelets 262,000. BMP on admission showed a sodium 139, potassium 4.5, chloride 108, serum CO2 26, BUN 42, creatinine chronically high at 2, glucose 108. Troponin was mildly elevated at 0.057. No obvious evidence of ischemic changes on ECG. Pro- calcitonin level was mildly elevated at 0.27 she has received empiric ceftriaxone and azithromycin. She is afebrile. Vital signs are stable at this time. Review of Systems REVIEW OF SYSTEMS: CONSTITUTIONAL: Denies any recent significant weight loss or weight gain. EYES: Denies change in vision. EARS, NOSE, MOUTH, THROAT: Denies headaches, denies sore throat. CARDIOVASCULAR: Denies chest pain, palpitations or syncopal episodes. Admits lower extremity swelling RESPIRATORY: See HPI GASTROINTESTINAL: Denies change in appetite, abdominal pain, nausea and vomiting, or diarrhea GENITOURINARY: Denies hematuria, denies infections. MUSKULOSKELETAL: Denies pain, denies swelling. INTEGUMENTARY: Denies rash, denies eczema. NEUROLOGICAL: Denies recent memory loss, no recent seizure activity. PSYCHIATRIC: Denies anxiety, denies depression. HEMATOLOGIC/LYMPHATIC: Denies anemia, denies enlarged lymph node Past Medical History Past Medical History: Coronary Artery Disease (CAD), Chest Pain / Angina, Heart Failure, Deep Vein Thrombosis (DVT), Hypertension, Osteoarthritis (OA), Renal Disease, Sleep Apnea/CPAP/BIPAP, Supraventricular Tachycardia (SVT) Additional Past Medical History / Comment(s): Pt recently admitted to [facility] on 07/03/22-07/15/22 with acute pulmonary edema. Other hx: Chronic CHF, home oxygen at 3L/NC prn, NIR/no device, previous ventilator dependent respiratory failure, sinus pauses, CKD stage IV, anemia, lymphedema, arthritis bilateral kn ees, hiatal hernia, diverticular disease, UTIs, constipation, urine and bowel incontinence. History of Any Multi-Drug Resistant Organisms: VRE Date of last positivie culture/infection: 05/03/20 MDRO Source:: VRE URINE Past Surgical History: Section, Hernia Repair Additional Past Surgical History / Comment(s): adominal hernia repair with mesh, cysts removed from stomach, EGD, colonoscopy Past Anesthesia/Blood Transfusion Reactions: No Reported Reaction Additional Past Anesthesia/Blood Transfusion Reaction / Comment(s): Pt has received blood in the past without reaction. Past Psychological History: Anxiety Additional Psychological History / Comment(s): Pt states she lives "pretty much" alone at home. She is mostly bedbound, when someone comes over, they assist her to her wheelchair via george lift. Pt states she was to start with [facility] home care. Family provides meals. She keeps her medications near her and manages them on her own. She is incontinent of urine/stool and wears depends. Smoking Status: Never smoker Past Alcohol Use History: None Reported Past Drug Use History: None Reported - Past Family History Father Family Medical History: Congestive Heart Failure (CHF) Additional Family Medical History / Comment(s): Father from CHF. Mother Family Medical History: Cancer, Hypertension, Sleep Apnea/CPAP/BIPAP Additional Family Medical History / Comment(s): Mother has had cancer removed from ear/head. Medications and Allergies Home Medications Medication Instructions Recorded Confirmed Type Omeprazole 20 mg PO DAILY 11/05/17 12/19/22 History Acetaminophen Tab [Tylenol] 650 mg PO Q6H PRN 12/19/22 12/19/22 History Aspirin 81 mg PO DAILY 12/19/22 12/19/22 History Furosemide [Lasix] 80 mg PO DAILY 12/19/22 12/19/22 History Magnesium Oxide [Mag-Ox] 400 mg PO BID 12/19/22 12/19/22 History Metoprolol Tartrate [Lopressor] 100 mg PO BID 12/19/22 12/19/22 History Spironolactone [Aldactone] 25 mg PO DAILY 12/19/22 12/19/22 History cloNIDine HCL [Catapres] 0.3 mg PO TID 12/19/22 12/19/22 History hydrALAZINE HCL [Apresoline] 100 mg PO TID 12/19/22 12/19/22 History minoxidiL [Loniten] 10 mg PO DAILY 12/19/22 12/19/22 History Allergies Allergy/AdvReac Type Severity Reaction Status Date / Time No Known Allergies Allergy Verified 12/19/22 08:37 Physical Exam Vitals: Vital Signs Temp Pulse Pulse Resp BP BP Pulse Ox 12/19/22 21:15 98.3 F 111 H 22 125/85 97 12/19/22 20:30 110 H 24 136/100 98 12/19/22 19:41 100 24 148/90 100 12/19/22 19:00 106 H 24 136/100 97 12/19/22 18:00 100 20 126/90 98 12/19/22 17:09 103 H 100/63 97 12/19/22 15:00 102 H 24 95/44 99 12/19/22 14:00 100 24 132/68 100 12/19/22 13:00 99 24 187/100 99 12/19/22 12:00 110 H 24 150/90 95 12/19/22 11:00 112 H 24 150/93 95 12/19/22 10:35 98.0 F 101 H 22 169/102 99 12/19/22 08:49 101 H 18 12/19/22 06:25 104 H 20 120/88 99 12/19/22 01:30 89 20 94 L Intake and Output 12/19/22 12/19/22 12/20/22 14:59 22:59 06:59 Intake Total 10 Output Total 900 2700 425 Balance -820 -9716 -172 Intake: IV 10 Invasive Line 1 10 Output: Urine 900 2700 425 Other: Weight 184.612 kg GENERAL EXAM: Drowsy, 47-year-old -Serbian female, comfortable in no apparent distress. HEAD: Normocephalic and atraumatic EYES: Normal reaction of pupils, equal size. NOSE: Clear with pink turbinates. THROAT: No erythema or exudates. NECK: No masses, no JVD. CHEST: No chest wall deformity. LUNGS: Equal air entry that is markedly diminished throughout. with no crackles, wheeze, rhonchi or focal dullness. On 6 L nasal cannula, current oxygenation saturation is 98%. No conversational dyspnea or accessory muscle use.. CVS: S1 and S2 normal with no audible murmur, regular rhythm. No extra heart sounds ABDOMEN: No hepatosplenomegaly, active bowel sounds, no guarding or rigidity. SPINE: No scoliosis or deformity SKIN: No rashes CENTRAL NERVOUS SYSTEM: No focal deficits, tone is normal in all 4 extremities. EXTREMITIES: There is bilateral lower extremity 3+ edema, left upper extremity swelling more so than the right. No clubbing, or cyanosis. Peripheral pulses are intact. Results - Laboratory Findings CBC and BMP: 12/18/22 21:37 12/18/22 21:37 PT/INR, D-dimer PT 11.1 sec (9.0-12.0) 12/18/22 21:37 INR 1.1 (<1.2) 12/18/22 21:37 Abnormal lab findings: Abnormal Labs 12/18/22 12/18/22 12/18/22 21:37 21:37 21:37 Hgb 9.7 L MCH 22.8 L MCHC 28.3 L RDW 18.7 H Nucleated RBCs 1 H VBG pH VBG pCO2 Chloride 108 H BUN 42 H Creatinine 2.04 H Glucose 108 H Troponin I 0.057 H* Albumin 3.4 L Procalcitonin 12/18/22 12/19/22 22:05 18:06 Hgb MCH MCHC RDW Nucleated RBCs VBG pH 7.30 L VBG pCO2 52 H Chloride BUN Creatinine Glucose Troponin I Albumin Procalcitonin 0.27 H Assessment and Plan Assessment: Acute on chronic hypoxic respiratory failure probably related to a combination of fluid overload and acute exacerbation of diastolic congestive heart failure. Chest x-ray performed on admission showed cardiomegaly and pulmonary edema that could be related to heart failure versus ARDS. A follow-up enhanced abdomen pelvis CT redemonstrated the patient's cardiomegaly with bibasilar infiltrates and atelectasis. Most recent echocardiogram performed on 07/05/2022 showed a preserved ejection fraction of 55-60% and overall limited views due to patient's body habitus. ProBNP was elevated at 12,500. She is receiving Lasix 80 mg IV every 12 hours and spironolactone daily. Patient's fluid balance is -4 L. Currently on 6 L nasal cannula and oxygenating at 98%. Patient's procalcitonin level was mildly elevated at 0.27, and cannot rule out underlying CAP. Patient has a component of chronic hypoxic respiratory failure related to her morbid obesity and obesity hypoventilation syndrome. She has obstructive sleep apnea in which she is noncompliant with her CPAP or BiPAP at home. She does wear 3 L nasal cannula at home, mostly at night. History of ventilatory dependent respiratory failure Left upper extremity swelling Morbid obesity Hypertension CAD Chronic kidney disease stage IV Chronic anemia Lymphedema History DVT History of SVT Nonsmoker Plan: Patient's medications, labs, chest x-ray, abdominal CT were reviewed Continue to diurese the patient with Lasix and Aldactone Urinary catheter in place for measurement of accurate intake and output I asked the nurse to titrate down on the patient's supplemental oxygen to maintain oxygen saturation between 92-94%. echocardiogram is pending Procalcitonin level was mildly high at 0.27, we will continue empiric antibiotics for CAP for now. Venous Doppler ultrasound of the left upper extremity Heparin for DVT prophylaxis Repeat chest x-ray in the morning Protonix for GI prophylaxis We will continue to follow I have personally seen and examined the patient, performed the documentation and the assessment and plan as written. Number of minutes spent on the visit:20 I'm seeing this patient in new consultation today 12/20/2022 for progressive shortness of breath. This is a 47-year-old -Serbian female with past medical history of CHF, hypertension, morbid obesity, obstructive sleep apnea not compliant with home CPAP or BiPAP, home O2 3 L nasal cannula mostly at night, previous ventilator dependent respiratory failure, hypertension, chronic kidney disease stage IV, lymphedema, anemia, urinary tract infections. Patient is currently resting in bed, drowsy but arousable and oriented, on 6 L nasal cannula. She is somewhat a poor historian, but states that her shortness breath started approximately 3 days ago. She has associated lower extremity swelling which is 2-3+ bilaterally. Patient denies cough, fever, chest pain. Denies sick contacts. She has swelling of the left upper extremity, she is unable to tell me when this started. Chest x-ray performed on admission showed cardiomegaly and pulmonary edema that could be related to heart failure versus ARDS. A follow-up enhanced abdomen pelvis CT redemonstrated the patient's cardiomegaly with bibasilar infiltrates and atelectasis. Most recent echocardiogram performed on 07/05/2022 showed a preserved ejection fraction of 55-60% and overall limited views due to patient's body habitus. ProBNP was elevated at 12,500. She is receiving Lasix 80 mg IV every 12 hours and spironolactone daily. Patient's fluid balance is -4 L. ABG done on arrival showed a pH of 7.3, pCO2 52. Patient's CBC on arrival showed a WBC count of 8.8, hemoglobin 9.7, hematocrit 34.1, platelets 262,000. BMP on admission showed a sodium 139, potassium 4.5, chloride 108, serum CO2 26, BUN 42, creatinine chronically high at 2, glucose 108. Troponin was mildly elevated at 0.057. No obvious evidence of ischemia on ECG. Pro-calcitonin level was mildly elevated at 0.27 she has received empiric ceftriaxone and azithromycin. She is afebrile. Vital signs are stable at this time. Time with Patient: Greater than 30
[2022-12-20] MEDS: PANTOPRAZOLE 40 MG TABLET PO SCH (06:38)
--- NOTE | 2022-12-20 07:27 | XR ---
EXAMINATION TYPE: XR chest 1V portable DATE OF EXAM: 12/20/2022 Comparison: 12/18/2022 Clinical History: 47-year-old female shortness of breath Findings: Rotated, portable exam is essentially nondiagnostic. Suspect cardiomegaly and some interstitial michele es. Left mid and lower lung are entirely underpenetrated. There is an edge projecting along the perip tammy of the right lung probably representing a large skinfold. Impression: Rotated exam essentially nondiagnostic. There is an edge projecting along the periphery of the right lung most likely representing a prominent skinfold. Recommend repeat exam to exclude pneumothorax.
--- NOTE | 2022-12-20 08:49 | P.CNNES ---
History of Present Illness Consult date: 12/19/22 Requesting physician: Kevin Stanford Reason for Consult: altered mental status History of Present Illness: Patient is a 47-year-old right-handed female with history of CAD, hypertension, CHF, chronic renal disease, morbid obesity, COPD on home oxygen, came to the hospital by ambulance yesterday at 8:39 PM. Patient tells me that she came to the hospital because "I'm delirious a little bit". Patient claims that she slid on the floor due to losing balance and fell, and could not get up. She did not hit her head. She stayed on the floor for 1 day. Her mother called the ambulance. Patient denies any numbness or tingling. Patient complains of having left foot pain from neuropathy. Patient admits to having headache 04/08 but this is not new, she "often gets headache". She complains of shortness of breath, but denies any chest pain. As per EMS flow sheet, when they arrived, he it was reported the patient fell sliding off her bed 2 days ago however her mother on the scene states it was just just the day prior. Patient currently living at her mother's home. Patient is on oxygen but states that she is struggling to get comfortable on the floor. She denied any pain. Patient has eaten food while sitting on the floor. House was very unkept and minimal lighting on. There are cockroaches on the floor and patient is sitting on the bed in his feces and urine on it. Patient was veering a jacket and enlarged breasts. Blood pressure could not be checked because of large arm size. Pulse was 90, respiration 22 saturation 94%. Vital signs on arrival blood pressure 147/98, pulse rate 86, temperature 98.0. CT abdomen and pelvis revealed extensive subcutaneous edema around the abdomen could relate to congestive heart failure. Also consider panniculitis. This appears new compared to old exam. Enlarged uterus with air in the uterine fundus. Endometriosis is possible. Uterine fibroid. Cardiomegaly with infiltrates and atelectasis at the lung bases. Heart is increased compared to the old exam. Pulmonary infiltrates are new compared to old exam. EKG shows sinus rhythm. Chest x-ray revealed pulmonary edema that could be heart failure or RDS and similar to old exam. Patient denies diabetes, and tobacco or alcohol use. Denies any use of illicit drugs or marijuana. Review of Systems Constitutional: Reports chills, Reports chronic headaches, Denies anorexia, Denies fever Eyes: denies blurred vision, denies pain Ears: deny: decreased hearing, ear discharge, earache Ears, nose, mouth and throat: Reports headache, Denies sore throat Cardiovascular: Reports lightheadedness, Reports shortness of breath, Denies chest pain, Denies palpitations, Denies syncope Respiratory: Denies cough, Denies cough with sputum, Denies wheezing Gastrointestinal: Reports diarrhea, Denies abdominal pain, Denies nausea, Denies vomiting Genitourinary: Denies dysuria, Denies hematuria Musculoskeletal: Reports low back pain, Reports myalgias, Reports neck pain Integumentary: Denies pruritus, Denies rash Neurological: Reports headaches, Denies aphasia, Denies double vision, Denies numbness, Denies syncope, Denies weakness Psychiatric: Reports anxiety, Reports depression Endocrine: Denies fatigue, Denies weight change Past Medical History Past Medical History: Coronary Artery Disease (CAD), Chest Pain / Angina, Heart Failure, Deep Vein Thrombosis (DVT), Hypertension, Osteoarthritis (OA), Renal Disease, Sleep Apnea/CPAP/BIPAP, Supraventricular Tachycardia (SVT) Additional Past Medical History / Comment(s): Pt recently admitted to [facility] on 07/03/22-07/15/22 with acute pulmonary edema. Other hx: Chronic CHF, home oxygen at 3L/NC prn, NIR/no device, previous ventilator dependent respiratory failure, sinus pauses, CKD stage IV, anemia, lymphedema, arthritis bilateral knees, hiatal hernia, diverticular disease, UTIs, constipation, urine and bowel incontinence. History of Any Multi-Drug Resistant Organisms: VRE Date of last positivie culture/infection: 05/03/20 MDRO Source:: VRE URINE Past Surgical History: Section, Hernia Repair Additional Past Surgical History / Comment(s): adominal hernia repair with mesh, cysts removed from stomach, EGD, colonoscopy Past Anesthesia/Blood Transfusion Reactions: No Reported Reaction Additional Past Anesthesia/Blood Transfusion Reaction / Comment(s): Pt has received blood in the past without reaction. Past Psychological History: Anxiety Smoking Status: Never smoker - Past Family History Father Family Medical History: Congestive Heart Failure (CHF) Additional Family Medical History / Comment(s): Father from CHF. Mother Family Medical History: Cancer, Hypertension, Sleep Apnea/CPAP/BIPAP Additional Family Medical History / Comment(s): Mother has had cancer removed from ear/head. Medications and Allergies Home Medications Medication Instructions Recorded Confirmed Type Omeprazole 20 mg PO DAILY 11/05/17 12/19/22 History Acetaminophen Tab [Tylenol] 650 mg PO Q6H PRN 12/19/22 12/19/22 History Aspirin 81 mg PO DAILY 12/19/22 12/19/22 History Furosemide [Lasix] 80 mg PO DAILY 12/19/22 12/19/22 History Magnesium Oxide [Mag-Ox] 400 mg PO BID 12/19/22 12/19/22 History Metoprolol Tartrate [Lopressor] 100 mg PO BID 12/19/22 12/19/22 History Spironolactone [Aldactone] 25 mg PO DAILY 12/19/22 12/19/22 History cloNIDine HCL [Catapres] 0.3 mg PO TID 12/19/22 12/19/22 History hydrALAZINE HCL [Apresoline] 100 mg PO TID 12/19/22 12/19/22 History minoxidiL [Loniten] 10 mg PO DAILY 12/19/22 12/19/22 History Allergies Allergy/AdvReac Type Severity Reaction Status Date / Time No Known Allergies Allergy Verified 12/19/22 08:37 Physical Examination - Vital Signs Vital Signs: Vital Signs Temp Pulse Resp BP Pulse Ox 12/19/22 15:00 102 H 24 95/44 99 12/19/22 14:00 100 24 132/68 100 12/19/22 13:00 99 24 187/100 99 12/19/22 12:00 110 H 24 150/90 95 12/19/22 11:00 112 H 24 150/93 95 12/19/22 10:35 98.0 F 101 H 22 169/102 99 12/19/22 08:49 101 H 18 12/19/22 06:25 104 H 20 120/88 99 12/19/22 01:30 89 20 94 L 12/18/22 22:08 87 18 97 12/18/22 22:07 86 L 12/18/22 21:02 86 22 147/98 98 Intake and Output 03/22/23 03/22/23 03/22/23 06:59 14:59 22:59 Output Total 900 900 Balance -900 -900 Output: Urine 900 900 Patient is a middle aged Afro-[place] female, appears older than her stated age. She appears slightly short of breath, uses oxygen by nasal cannula. Patient was groggy, encephalopathic when I started seeing, but with continued evaluation, she did per cup and was much more alert and awake. Patient is to time place and person. She knows it is November 2022 and that she is in [facility] in [facility]. Speech and language functions are normal. Patient can name and repeat very well. No aphasia or dysarthria. Attention, concentration is slightly impaired and fund of knowledge is adequate. On cranial nerve examination, pupils are equal, round and reacting to light, visual [place] are full on confrontation, with no neglect on double simultaneous stimulation. Extraocular muscles are intact with no nystagmus. Face is symmetric, tongue protrudes to the midline. Palatal elevation and sensation normal, hearing and shoulder shrug normal, facial sensation normal. On muscle strength testing, there is no pronator drift. The strength is symmetric, deltoid 5-, biceps 5, triceps 5, laborer wharf 5, ankle dorsiflexion 5, hip flexion 2-3. Deep tendon reflexes are symmetric 1 at the biceps, 1 brachioradialis, trace at the knees 0 ankles and plantars are flat bilaterally. Sensory to touch is equal with no neglect on double simultaneous stimulation. Cerebellar function showed no ataxia for [id number] testing. Tone and bulk of muscles normal. Patient has myoclonic jerks of outstretched hands. Gait deferred.. On general examination, there is no carotid bruit or murmur, S1-S2 audible. C hest is clear on consultation. Abdomen is soft nontender. No organomegaly, bowel sounds present. Patient has peripheral edema. Patient has lymphedema of the left upper extremity. Results - Laboratory Findings CBC and BMP: 12/18/22 21:37 12/18/22 21:37 Abnormal Lab Findings: Abnormal Labs 12/18/22 12/18/22 12/18/22 21:37 21:37 21:37 Hgb 9.7 L MCH 22.8 L MCHC 28.3 L RDW 18.7 H Nucleated RBCs 1 H VBG pH VBG pCO2 Chloride 108 H BUN 42 H Creatinine 2.04 H Glucose 108 H Troponin I 0.057 H* Albumin 3.4 L 12/18/22 22:05 Hgb MCH MCHC RDW Nucleated RBCs VBG pH 7.30 L VBG pCO2 52 H Chloride BUN Creatinine Glucose Troponin I Albumin Assessment and Plan Assessment: * Altered mental status, likely due to toxic metabolic encephalopathy. Etiology multifactorial as mentioned below. Patient apparently lost balance, slid off the bed and stayed on the floor for 1 day, before EMS was called by her mother. * Acute on chronic hypoxic respiratory failure * Rule out underlying pneumonia. * Acute exacerbation of CHF, with fluid overload * Hypertension * Morbid obesity * History of obstructive sleep apnea * Chronic renal disease stage IV. * Left upper extremity swelling/lymphedema * CAD * History of DVT Plan: * Patient has toxic metabolic encephalopathy due to underlying cardiopulmonary/renal dysfunction. Management as per Cardiology, nephrology and pulmonary, all on board. * Neurological examination is normal, with no focal findings. * No neurological workup indicated at this time. We will follow clinically. * Patient's hemoglobin A1c 5.7, B12 > 2000, folate 7.4, TSH 1.24, all normal. * DVT prophylaxis: Patient on heparin 5000 units subcu every 8 hours. * Thank you for the consult.
[2022-12-20] MEDS ORDERED: FUROSEMIDE 80 MG TAB PO SCH (09:00)
--- NOTE | 2022-12-20 09:16 | US ---
EXAMINATION TYPE: US venous doppler duplex UE LT DATE OF EXAM: 12/20/2022 COMPARISON: NONE CLINICAL HISTORY: 47-year-old female Left upper extremity edema. Edema left arm for 2 years SIDE PERFORMED: left Technique: Grayscale, color doppler, spectral doppler imaging performed of the deep veins of the lef t upper extremities. FINDINGS: Left Arm: Air Conditioning Technician notes:*technical limitations due to patient's body habitus and position. No cora dence of DVT as visualized There is subcutaneous edema noted at the level of the forearm. IMPRESSION: Exam limitations due to body habitus and patient positioning. No evidence for left upper extremity DV T along the visualized portions. Subcutaneous edema along the forearm.
[2022-12-20] MEDS: HEPARIN SODIUM,PORCINE/PF 5,000 UNIT/0.5 ML SYRINGE SQ SCH ×3 (09:24→23:19)
[2022-12-20] MEDS: MAGNESIUM OXIDE 400 MG TAB PO SCH ×2 (09:24→20:20)
[2022-12-20] MEDS: cloNIDine HCL 0.1 MG TAB PO SCH ×3 (09:24→20:20)
[2022-12-20] MEDS: FUROSEMIDE 10 MG/ML 10 ML VIAL IV SCH ×2 (09:24→20:20)
[2022-12-20] MEDS: METOPROLOL TARTRATE 50 MG TAB PO SCH ×2 (09:24→20:20)
[2022-12-20] MEDS: ASPIRIN 81 MG PO SCH (09:24)
[2022-12-20] MEDS: SPIRONOLACTONE 25 MG TAB PO SCH (09:24)
[2022-12-20 10:02] LABS: Calcium 8.8 mg/dL (8.4-10.2); Magnesium 2.1 mg/dL (1.6-2.3); Potassium 4.6 mmol/L (3.5-5.1)
--- NOTE | 2022-12-20 11:21 | P.CRDCN ---
History of Present Illness Consult date: 12/20/22 History of present illness: HISTORY OF PRESENT ILLNESS: This is a 47-year-old female with a past medical history significant for obstructive sleep apnea was noncompliant with CPAP, chronic kidney disease, congestive heart failure, hypertension, chronic left upper extremity edema, and morbid obesity. Patient does not follow with a police liaison officer. We have been asked to see the patient in consultation for congestive heart failure. Patient examined at the bedside. Patient presented to the hospital with chief complaint of shortness of breath. The patient was found to be in acute CHF and was started on IV Lasix. The patient was also started on IV antibiotics empirically for elevated pro calcitonin. The patient denies any chest pain or pressure. Blood pressure is stable. Patient is slightly tachycardic this morning. * EKG reveals sinus mechanism with no signs of acute ischemia * Chest xray pulmonary edema that could be heart failure or RDS. * Laboratory data: WBC 8.8. Hemoglobin 9.7. Platelet count 262. Sodium 141. Potassium 4.6. BUN 42. Creatinine 1.96. Troponin 0.057. ProBNP 12,500. * Current home cardiac medications include spironolactone 25 mg daily, minoxidil 10 mg daily, hydralazine 100 mg 3 times a day, metoprolol tartrate 100 mg twice a day, aspirin 81 mg daily, Lasix 80 mg daily, and clonidine 0.3 mg 3 times a day * Left upper extremity Doppler: Negative for DVT * Most recent echocardiogram obtained in October 2021 revealed ejection fraction 45-50% with mild MR * Limited echo obtained in June 2022 revealed ejection fraction 55-60% REVIEW OF SYSTEMS: At the time of my exam: CONSTITUTIONAL: Denies fever or chills. HEENT: Denies blurred vision, vision changes, or eye pain. Denies hemoptysis CARDIOVASCULAR: Denies chest pain. Denies orthopnea. Denies PND. Denies palpitations RESPIRATORY: Denies shortness of breath. GASTROINTESTINAL: Denies abdominal pain. Denies nausea or vomiting. HEMATOLOGIC: Denies bleeding disorders. GENITOURINARY: Denies any blood in urine. SKIN: Denies pruitis. Denies rash. PHYSICAL EXAM: VITAL SIGNS: Reviewed. GENERAL: Well-developed in no acute distress. HEENT: Head is normocephalic. Pupils are equal, round. Sclerae anicteric. Mucous membranes of the mouth are moist. Neck supple. No JVD or thyromegaly LUNGS: Respirations even and unlabored. Lungs essentially clear to auscultation bilaterally, diminished. HEART: Regular rate and rhythm. S1 and S2 heard. ABDOMEN: Soft. Nondistended. Nontender. EXTREMITIES: Normal range of motion. No clubbing or cyanosis. Peripheral pulses intact. 1+ bilateral lower extremity edema NEUROLOGIC: Awake and alert. Oriented x 3. ASSESSMENT: Shortness of breath Acute on chronic heart failure with preserved ejection fraction, most recent echo reveals EF 55-60% Hypertension Chronic kidney disease Obstructive sleep apnea, not utilizing CPAP at home Chronic left upper extremity swelling Morbid obesity PLAN: 2D echo ordered. Await results. Continue IV Lasix and oral Aldactone Daily weights, accurate I&O, and mention of kidney function Continue additional home cardiac medications Further recommendations pending patient's course Nurse practitioner note has been reviewed by physician. Signing provider agrees with the documented findings, assessment, and plan of care. Past Medical History Past Medical History: Coronary Artery Disease (CAD), Chest Pain / Angina, Heart Failure, Deep Vein Thrombosis (DVT), Hypertension, Osteoarthritis (OA), Renal Disease, Sleep Apnea/CPAP/BIPAP, Supraventricular Tachycardia (SVT) Additional Past Medical History / Comment(s): Pt recently admitted to [facility] on 07/03/22-07/15/22 with acute pulmonary edema. Other hx: Chronic CHF, home oxygen at 3L/NC prn, NIR/no device, previous ventilator dependent respiratory failure, sinus pauses, CKD stage IV, anemia, lymphedema, arthritis bilateral knees, hiatal hernia, diverticular disease, UTIs, constipation, urine and bowel incontinence. History of Any Multi-Drug Resistant Organisms: VRE Date of last positivie culture/infection: 05/03/20 MDRO Source:: VRE URINE Past Surgical History: Section, Hernia Repair Additional Past Surgical History / Comment(s): adominal hernia repair with mesh, cysts removed from stomach, EGD, colonoscopy Past Anesthesia/Blood Transfusion Reactions: No Reported Reaction Additional Past Anesthesia/Blood Transfusion Reaction / Comment(s): Pt has received blood in the past without reaction. Past Psychological History: Anxiety Smoking Status: Never smoker - Past Family History Father Family Medical History: Congestive Heart Failure (CHF) Additional Family Medical History / Comment(s): Father from CHF. Mother Family Medical History: Cancer, Hypertension, Sleep Apnea/CPAP/BIPAP Additional Family Medical History / Comment(s): Mother has had cancer removed from ear/head. Medications and Allergies Home Medications Medication Instructions Recorded Confirmed Type Omeprazole 20 mg PO DAILY 11/05/17 12/19/22 History Acetaminophen Tab [Tylenol] 650 mg PO Q6H PRN 12/19/22 12/19/22 History Aspirin 81 mg PO DAILY 12/19/22 12/19/22 History Furosemide [Lasix] 80 mg PO DAILY 12/19/22 12/19/22 History Magnesium Oxide [Mag-Ox] 400 mg PO BID 12/19/22 12/19/22 History Metoprolol Tartrate [Lopressor] 100 mg PO BID 12/19/22 12/19/22 History Spironolactone [Aldactone] 25 mg PO DAILY 12/19/22 12/19/22 History cloNIDine HCL [Catapres] 0.3 mg PO TID 12/19/22 12/19/22 History hydrALAZINE HCL [Apresoline] 100 mg PO TID 12/19/22 12/19/22 History minoxidiL [Loniten] 10 mg PO DAILY 12/19/22 12/19/22 History Allergies Allergy/AdvReac Type Severity Reaction Status Date / Time No Known Allergies Allergy Verified 12/19/22 08:37 Physical Exam Vitals: Vital Signs Temp Pulse Pulse Resp BP BP Pulse Ox 12/20/22 09:36 98.7 F 104 H 20 128/74 95 12/20/22 04:00 98 F 98 20 136/77 97 12/20/22 00:00 98 F 86 24 100/67 97 12/19/22 21:15 98.3 F 106 H 22 125/85 97 12/19/22 20:30 110 H 24 136/100 98 12/19/22 19:41 100 24 148/90 100 12/19/22 19:00 106 H 24 136/100 97 12/19/22 18:00 100 20 126/90 98 12/19/22 17:09 103 H 100/63 97 12/19/22 15:00 102 H 24 95/44 99 12/19/22 14:00 100 24 132/68 100 12/19/22 13:00 99 24 187/100 99 12/19/22 12:00 110 H 24 150/90 95 Intake and Output 12/19/22 12/20/22 12/20/22 22:59 06:59 14:59 Intake Total 10 130 Output Total 2700 1625 500 Balance -5951 -6443 -735 Intake: IV 10 10 Invasive Line 1 10 10 Oral 120 Output: Urine 2700 1625 500 Other: Voiding Method Indwelling Catheter Indwelling Catheter Weight 184.612 kg Results 12/18/22 21:37 12/20/22 09:35 Comprehensive Metabolic Panel 12/20/22 Range/Units 09:35 Sodium 141 (137-145) mmol/L Potassium 4.6 (3.5-5.1) mmol/L Chloride 109 H (98-107) mmol/L Carbon Dioxide 26 (22-30) mmol/L BUN 42 H (7-17) mg/dL Creatinine 1.96 H (0.52-1.04) mg/dL Glucose 97 (74-99) mg/dL Calcium 8.8 (8.4-10.2) mg/dL Current Medications Generic Name Dose Route Start Last Admin Trade Name Freq PRN Reason Stop Dose Admin Acetaminophen 650 mg 12/19/22 17:31 Acetaminophen Tab 325 Mg Tab PO Q6H PRN Fever and/ or Pain Aspirin 81 mg 12/20/22 09:00 12/20/22 09:24 Aspirin 81 Mg PO 81 mg DAILY FARRAH Administration Clonidine 0.3 mg 12/19/22 17:45 12/20/22 09:24 Clonidine Hcl 0.1 Mg Tab PO 0.3 mg TID FARRAH Administration Furosemide 80 mg 12/19/22 14:00 12/20/22 09:24 Furosemide 10 Mg/Ml 10 Ml Vial IV 80 mg Q12HR FARRAH Administration Heparin Sodium (Porcine) 5,000 unit 12/20/22 08:00 12/20/22 09:24 Heparin Sodium,Porcine/Pf 5,000 Unit/0.5 Ml Syringe SQ 5,000 unit Q8HR FARRAH Administration Azithromycin 500 mg/ Sodium 250 mls @ 250 mls/hr 12/20/22 14:00 Chloride IVPB 12/22/22 09:59 DAILY FARRAH Protocol Ceftriaxone Sodium 1 gm/ 50 mls @ 100 mls/hr 12/21/22 02:00 Sodium Chloride IVPB Q24H FARRAH Protocol Magnesium Oxide 400 mg 12/19/22 21:00 12/20/22 09:24 Magnesium Oxide 400 Mg Tab PO 400 mg BID FARRAH Administration Metoprolol Tartrate 50 mg 12/20/22 09:00 12/20/22 09:24 Metoprolol Tartrate 50 Mg Tab PO 50 mg BID FARRAH Administration Naloxone HCl 0.2 mg 12/19/22 00:27 Naloxone 0.4 Mg/Ml 1 Ml Vial IV Q2M PRN Opioid Reversal Pantoprazole Sodium 40 mg 12/20/22 07:30 12/20/22 06:38 Pantoprazole 40 Mg Tablet PO 40 mg [id number] FARRAH Administration Spironolactone 25 mg 12/20/22 09:00 12/20/22 09:24 Spironolactone 25 Mg Tab PO 25 mg DAILY FARRAH Administration Intake and Output 12/19/22 12/20/22 12/20/22 22:59 06:59 14:59 Intake Total 10 130 Output Total 2700 1625 500 Balance -1035 -1622 -957 Intake: IV 10 10 Invasive Line 1 10 10 Oral 120 Output: Urine 2700 1625 500 Other: Voiding Method Indwelling Catheter Indwelling Catheter Weight 184.612 kg 12/18/22 21:37 12/20/22 09:35
--- NOTE | 2022-12-20 11:31 | CA ---
Transthoracic Echo Report Name: Ankita Sorto Age: 47 Gender: F : 1975 Exam Date: 12/19/2022 14:21 Exam Location: [facility] Ht (in): 67 Wt (lb): 400 Ordering Physician: Kevin Stanford MD Attending/Referring Phys: Test Administrator Oscar Shepard RDCS Procedure CPT: Indications: chf short of breath Cardiac Hx: Hyperobesity (400lbs) CHF; Technical Quality: Very technically difficult study Contrast 1: Lumason Total Dose (mL): 8 Contrast 2: Total Dose (mL): MEASUREMENTS (Male / Female) Normal Values M-MODE Aortic Root Diameter MM 3.1 cm LA Systolic Diameter MM 2.8 cm LA Ao Ratio MM 0.9 FINDINGS Left Ventricle Not visible. Attempt with Lumisan Right Ventricle Not visible Right Atrium Not visible Left Atrium Not visible. Attempt with Lumisan Mitral Valve Mitral valve not well visualized. Aortic Valve Aortic valve not well visualized. Tricuspid Valve Tricuspid valve not well visualized. Pulmonic Valve Pulmonic valve not well visualized. Pericardium Not visible Aorta Not visible CONCLUSIONS Technically difficult study for interpretation It is difficult to comment on the ejection fraction. The EF is probably impaired and appeared to be in the range of 30-35% Previewed by: Dr. Bartolo Hoyt MD (Electronically Signed) Final Date: 20 December 2022 11:31
[2022-12-20 12:08] LABS: Anisocytosis Slight; Basophils % (A) 0 %; Eosinophils # (A) 0.1 k/uL (0-0.7); Eosinophils % (A) 2 %; HCT 34.8 % (34.0-46.0); HGB 9.5 gm/dL (11.4-16.0); Hypochromasia Marked; Lymphocytes # (A) 0.7 k/uL (1.0-4.8); Lymphocytes % (A) 9 %; MCH 22.3 pg (25.0-35.0); MCHC 27.3 g/dL (31.0-37.0); MCV 81.8 fL (80.0-100.0); Mean Platelet Volume 9.7; Microcytosis Slight; Monocytes # (A) 0.5 k/uL (0-1.0); Monocytes % (A) 7 %; Neutrophils # (A) 6.1 k/uL (1.3-7.7); Neutrophils % (A) 79 %; Platelet Count 229 k/uL (150-450); Poikilocytosis Slight; RBC 4.25 m/uL (3.80-5.40); RDW 18.8 % (11.5-15.5); WBC 7.8 k/uL (3.8-10.6)
--- NOTE | 2022-12-20 12:52 | P.NPCON ---
History of Present Illness - Reason for Consult chronic renal failure - History of Present Illness Reason for consultation: Chronic kidney disease History of present illness: Patient is a 47-year-old female seen in consultation for chronic kidney disease. Patient has chronic kidney disease stage IIIB with baseline creatinine near 2 secondary to cardiorenal syndrome. GFR is at baseline. Patient presented to the hospital due to worsening shortness of breath. Patient has history of diastolic CHF. She does wear 3 L oxygen at home and was requiring higher amounts and admitted. Currently she is back on 3 L. She is currently receiving IV Lasix. Blood pressure stable. No vomiting or diarrhea. Oral intake fair. She underwent CAT scan with IV contrast on 12/18/2022 which showed extensive subcutaneous edema. No hydronephrosis was noted. She has history of obstructive sleep apnea. Denies history of diabetes. Denies history of coronary artery disease. Denies use of nonsteroidals. Denies fever or chills. No gross hematuria. Has Colon catheter for strict I's and O's. Vital signs are stable. General: No acute distress. HEENT: Head exam is unremarkable. On nasal cannula. LUNGS: No audible rhonchi or wheezes. HEART: Rate and Rhythm are regular. ABDOMEN: Soft, obese. EXTREMITITES: 1+ edema. Past Medical History Past Medical History: Coronary Artery Disease (CAD), Chest Pain / Angina, Heart Failure, Deep Vein Thrombosis (DVT), Hypertension, Osteoarthritis (OA), Renal Disease, Sleep Apnea/CPAP/BIPAP, Supraventricular Tachycardia (SVT) Additional Past Medical History / Comment(s): Pt recently admitted to [facility] on 1 -07/15/22 with acute pulmonary edema. Other hx: Chronic CHF, home oxygen at 3L/NC prn, NIR/no device, previous ventilator dependent respiratory failure, sinus pauses, CKD stage IV, anemia, lymphedema, arthritis bilateral knees, hiatal hernia, diverticular disease, UTIs, constipation, urine and bowel incontinence. History of Any Multi-Drug Resistant Organisms: VRE Date of last positivie culture/infection: 05/03/20 MDRO Source:: VRE URINE Past Surgical History: Section, Hernia Repair Additional Past Surgical History / Comment(s): adominal hernia repair with mesh, cysts removed from stomach, EGD, colonoscopy Past Anesthesia/Blood Transfusion Reactions: No Reported Reaction Additional Past Anesthesia/Blood Transfusion Reaction / Comment(s): Pt has received blood in the past without reaction. Past Psychological History: Anxiety Smoking Status: Never smoker - Past Family History Father Family Medical History: Congestive Heart Failure (CHF) Additional Family Medical History / Comment(s): Father from CHF. Mother Family Medical History: Cancer, Hypertension, Sleep Apnea/CPAP/BIPAP Additional Family Medical History / Comment(s): Mother has had cancer removed from ear/head. Medications and Allergies Home Medications Medication Instructions Recorded Confirmed Type Omeprazole 20 mg PO DAILY 11/05/17 12/19/22 History Acetaminophen Tab [Tylenol] 650 mg PO Q6H PRN 12/19/22 12/19/22 History Aspirin 81 mg PO DAILY 12/19/22 12/19/22 History Furosemide [Lasix] 80 mg PO DAILY 12/19/22 12/19/22 History Magnesium Oxide [Mag-Ox] 400 mg PO BID 12/19/22 12/19/22 History Metoprolol Tartrate [Lopressor] 100 mg PO BID 12/19/22 12/19/22 History Spironolactone [Aldactone] 25 mg PO DAILY 12/19/22 12/19/22 History cloNIDine HCL [Catapres] 0.3 mg PO TID 12/19/22 12/19/22 History hydrALAZINE HCL [Apresoline] 100 mg PO TID 12/19/22 12/19/22 History minoxidiL [Loniten] 10 mg PO DAILY 12/19/22 12/19/22 History Allergies Allergy/AdvReac Type Severity Reaction Status Date / Time No Known Allergies Allergy Verified 12/19/22 08:37 Physical Exam Vitals: Vital Signs Temp Pulse Pulse Resp BP BP Pulse Ox 12/20/22 09:36 98.7 F 104 H 20 128/74 95 12/20/22 04:00 98 F 98 20 136/77 97 12/20/22 00:00 98 F 86 24 100/67 97 12/19/22 21:15 98.3 F 106 H 22 125/85 97 12/19/22 20:30 110 H 24 136/100 98 12/19/22 19:41 100 24 148/90 100 12/19/22 19:00 106 H 24 136/100 97 12/19/22 18:00 100 20 126/90 98 12/19/22 17:09 103 H 100/63 97 12/19/22 15:00 102 H 24 95/44 99 12/19/22 14:00 100 24 132/68 100 12/19/22 13:00 99 24 187/100 99 Intake and Output 12/19/22 12/20/22 12/20/22 22:59 06:59 14:59 Intake Total 10 130 Output Total 2700 1625 500 Balance -6825 -0072 -758 Intake: IV 10 10 Invasive Line 1 10 10 Oral 120 Output: Urine 2700 1625 500 Other: Voiding Method Indwelling Catheter Indwelling Catheter Weight 184.612 kg Results - Lab Results Most recent lab results Calcium 8.8 mg/dL (8.4-10.2) 12/20/22 09:35 Magnesium 2.1 mg/dL (1.6-2.3) 12/20/22 09:35 12/20/22 11:28 12/20/22 09:35 Assessment and Plan Plan: Assessment: 1. Chronic kidney disease stage IIIB secondary to cardiorenal syndrome. Baseline creatinine near 2. GFR near baseline. 2. Acute on chronic diastolic CHF. 3. Volume overload. 4. Hypertension with chronic kidney disease. 5. Anemia of chronic kidney disease. Plan: Maintain IV Lasix. Low-salt diet. Check iron studies. Avoid nephrotoxins. Hold clonidine for systolic blood pressure less than 110. Continue to monitor renal function and urine output. Check urinalysis. Monitor for contrast-induced acute kidney injury. Serologies have been negative in the past. Thank you for the consultation. I will continue to follow the patient with you during her hospital stay.
[2022-12-20] MEDS: AZITHROMYCIN 500 MG in SODIUM CHLORIDE 0.9% 250 ML IVPB SCH (14:56)
--- NOTE | 2022-12-20 15:06 | P.PN ---
Subjective Progress Note Date: 12/20/22 Patient was seen for a follow-up. Patient has a BiPAP on. She is much more mentally clear, feeling better. Denies headache. Denies any neurological symptoms. Objective - Vital Signs Vital signs: Vital Signs Temp 98.8 F 12/20/22 12:00 Pulse 88 12/20/22 12:00 Resp 27 H 12/20/22 13:22 BP 130/84 12/20/22 12:00 Pulse Ox 98 12/20/22 13:22 FiO2 50 12/20/22 13:30 Intake & Output 12/19/22 12/20/22 12/20/22 18:59 06:59 18:59 Intake Total 10 370 Output Total 3600 1625 500 Balance -3600 -1615 -130 Weight 184.612 kg Intake: IV 10 10 Invasive Line 1 10 10 Oral 360 Output: Urine 3600 1625 500 Other: Voiding Method Indwelling Catheter Indwelling Catheter - Exam Patient is alert and oriented 3. Speech and language functions are normal. Muscle strength is normal. Detailed testing deferred. Patient's mentation is m uch improved, response time improved. - Labs CBC & Chem 7: 12/20/22 11:28 12/20/22 09:35 Labs: Abnormal Lab Results - Last 24 Hours (Table) 12/19/22 12/20/22 12/20/22 Range/Units 18:06 09:35 11:28 Hgb 9.5 L (11.4-16.0) gm/dL MCH 22.3 L (25.0-35.0) pg MCHC 27.3 L (31.0-37.0) g/dL RDW 18.8 H (11.5-15.5) % Lymphocytes # 0.7 L (1.0-4.8) k/uL Chloride 109 H (98-107) mmol/L BUN 42 H (7-17) mg/dL Creatinine 1.96 H (0.52-1.04) mg/dL Procalcitonin 0.27 H (0.02-0.09) ng/mL Assessment and Plan Assessment: * Altered mental status, likely due to toxic metabolic encephalopathy. Etiology multifactorial as mentioned below. Patient apparently lost balance, slid off the bed and stayed on the floor for 1 day, before EMS was called by her mother. * Acute on chronic hypoxic respiratory failure * Rule out underlying pneumonia. * Acute exacerbation of CHF, with fluid overload * Hypertension * Morbid obesity * History of obstructive sleep apnea * Chronic renal disease stage IV. * Left upper extremity swelling/lymphedema * CAD * History of DVT Plan: * Patient has toxic metabolic encephalopathy due to underlying cardiopulmonary/renal dysfunction. Management as per Cardiology, nephrology and pulmonary, all on board. Patient is on BiPAP. Her mentation is much improved today. * Neurological examination is normal, with no focal findings. * No neurological workup indicated at this time. We will follow clinically. * Patient's hemoglobin A1c 5.7, B12 > 2000, folate 7.4, TSH 1.24, all normal. * DVT prophylaxis: Patient on heparin 5000 units subcu every 8 hours. * Neurologically clear.
[2022-12-20] MEDS: FOLIC ACID 1 MG TAB PO SCH (17:14)
[2022-12-20 20:35] LABS: % Iron Saturation 5.65 (12.00-45.00); Ferritin 12.9 ng/mL (10.0-291.0)
--- NOTE | 2022-12-21 04:04 | HP ---
HISTORY AND PHYSICAL CHIEF COMPLAINT: Shortness of breath. HISTORY OF PRESENT ILLNESS: This is another admission for this morbidly obese 47-year-old female. She is in and out of the hospital with chronic congestive heart failure related to her obesity. Because of her weight, she is no longer able to walk. Ambulance was summoned at the house because she was short of breath. She was admitted to the hospital with diagnoses of congestive heart failure. REVIEW OF SYSTEMS: She has had no headaches, neurologic problems, hemoptysis, abdominal pain, vomiting, diarrhea, melena, hematochezia, history of renal disease, etc. Past medical history, family history, and personal and social histories are all otherwise unremarkable or noncontributory or unchanged. It is not known what medicine she is taking. PHYSICAL EXAMINATION: VITAL SIGNS: Blood pressure is 100/63 with a pulse of 78, respirations of 42, and she is afebrile. GENERAL: She appeared to be morbidly obese. She is awake and alert. HEAD, EARS, EYES, NOSE, MOUTH AND THROAT: Normal. CHEST: Demonstrated scattered rales with decreased breath sounds. CARDIAC: Sounded like sinus rhythm. ABDOMEN: Massively protuberant. EXTREMITIES: Normal. NEUROLOGICAL: She is intact. IMPRESSION: 1. Acute congestive heart failure. 2. Chronic congestive heart failure. 3. Cardiomyopathy. 4. Morbid obesity. PLAN: 1. Bed rest. 2. IV fluids. 3. Diuresis. MORENO / BRADLEY: [id number] /
--- NOTE | 2022-12-21 04:19 | PN ---
PROGRESS NOTE DATE OF SERVICE: 12/20/2022 CHIEF COMPLAINT: Congestive heart failure. HISTORY OF PRESENT ILLNESS: This lady is still very short of breath, but thinks she feels a little bit better. PHYSICAL EXAMINATION: VITAL SIGNS: Normal. CHEST: Demonstrates no significant rales, but breath sounds are diminished due to her obesity. CARDIAC: Sounds normal sinus rhythm. ABDOMEN: Protuberant. EXTREMITIES: Very edematous. IMPRESSION: 1. Acute congestive heart failure. 2. Chronic congestive heart failure. 3. Cardiomyopathy. 4. Morbid obesity. 5. Chronic kidney disease with a BUN of 42 and creatinine 1.96. This could be prerenal. PLAN: Continue to try to manage her congestive heart failure while watching her renal function further development of cardiorenal syndrome. MMODL / IJN: [id number] /
[2022-12-21] MEDS: PANTOPRAZOLE 40 MG TABLET PO SCH (06:01)
[2022-12-21 08:03] LABS: Calcium 8.5 mg/dL (8.4-10.2); Magnesium 2.2 mg/dL (1.6-2.3); Potassium 4.3 mmol/L (3.5-5.1)
[2022-12-21] MEDS: FUROSEMIDE 10 MG/ML 10 ML VIAL IV SCH (08:31)
[2022-12-21] MEDS: cloNIDine HCL 0.1 MG TAB PO SCH ×3 (08:31→21:29)
[2022-12-21] MEDS: HEPARIN SODIUM,PORCINE/PF 5,000 UNIT/0.5 ML SYRINGE SQ SCH ×3 (08:31→23:40)
[2022-12-21] MEDS: METOPROLOL TARTRATE 50 MG TAB PO SCH ×2 (08:32→19:53)
[2022-12-21] MEDS: ASPIRIN 81 MG PO SCH (08:32)
[2022-12-21] MEDS: SPIRONOLACTONE 25 MG TAB PO SCH (08:32)
[2022-12-21] MEDS: AZITHROMYCIN 500 MG in SODIUM CHLORIDE 0.9% 250 ML IVPB SCH (08:32)
[2022-12-21] MEDS: MAGNESIUM OXIDE 400 MG TAB PO SCH ×2 (08:32→19:53)
[2022-12-21] MEDS: FOLIC ACID 1 MG TAB PO SCH (08:32)
--- NOTE | 2022-12-21 10:44 | P.PN ---
Subjective Progress Note Date: 12/21/22 HISTORY OF PRESENT ILLNESS: This is a 47-year-old female with a past medical history significant for obstructive sleep apnea was noncompliant with CPAP, chronic kidney disease, congestive heart failure, hypertension, chronic left upper extremity edema, and morbid obesity. 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 We have been asked to see the patient in consultation for congestive heart failure. Patient examined at the bedside. Patient presented to the hospital with chief complaint of shortness of breath. The patient was found to be in acute CHF and was started on IV Lasix. The patient was also started on IV antibiotics empirically for elevated pro calcitonin. The patient denies any chest pain or pressure. Blood pressure is stable. Patient is slightly tachycardic this morning. * EKG reveals sinus mechanism with no signs of acute ischemia * Chest xray pulmonary edema that could be heart failure or RDS. * Laboratory data: WBC 8.8. Hemoglobin 9.7. Platelet count 262. Sodium 141. Potassium 4.6. BUN 42. Creatinine 1.96. Troponin 0.057. ProBNP 12,500. * Current home cardiac medications include spironolactone 25 mg daily, minoxidil 10 mg daily, hydralazine 100 mg 3 times a day, metoprolol tartrate 100 mg twice a day, aspirin 81 mg daily, Lasix 80 mg daily, and clonidine 0.3 mg 3 times a day * Left upper extremity Doppler: Negative for DVT * Most recent echocardiogram obtained in October 2021 revealed ejection fraction 45-50% with mild MR * Limited echo obtained in June 2022 revealed ejection fraction 55-60% 12/21/2022 Patient examined this morning at the bedside. Patient denies chest pain or pressure. She reports improvement in her shortness of breath. Patient was changed to oral Bumex per her primary care physician. Vital signs are stable. Echocardiogram completed revealing ejection fraction 30-35% PHYSICAL EXAM: VITAL SIGNS: Reviewed. GENERAL: Well-developed in no acute distress. HEENT: Head is normocephalic. Pupils are equal, round. Sclerae anicteric. Mucous membranes of the mouth are moist. Neck supple. No JVD or thyromegaly LUNGS: Respirations even and unlabored. Lungs essentially clear to auscultation bilaterally, diminished. HEART: Regular rate and rhythm. S1 and S2 heard. ABDOMEN: Soft. Nondistended. Nontender. EXTREMITIES: Normal range of motion. No clubbing or cyanosis. Peripheral pulses intact. 1+ bilateral lower extremity edema NEUROLOGIC: Awake and alert. Oriented x 3. ASSESSMENT: Shortness of breath Acute on chronic heart failure with reduced ejection fraction, previously 55- 60%, repeat echo reveals ejection fraction 30-35% although technically difficult study Hypertension Acute on chronic kidney disease Obstructive sleep apnea, not utilizing CPAP at home Chronic left upper extremity swelling Morbid obesity PLAN: Patient has been transitioned to oral Bumex per her primary care physician Monitor kidney function Patient would benefit from adding ROOSEVELT/ARB when kidney function improves secondary to new cardiomyopathy Continue additional home cardiac medications Further recommendations pending patient's course Nurse practitioner note has been reviewed by physician. Signing provider agrees with the documented findings, assessment, and plan of care. Objective - Vital Signs Vital signs: Vital Signs Temp 98.2 F 12/21/22 08:30 Pulse 78 12/21/22 08:30 Resp 21 12/21/22 08:30 BP 146/93 12/21/22 08:30 Pulse Ox 96 12/21/22 08:30 FiO2 50 12/21/22 07:55 Intake & Output 12/20/22 12/21/22 12/21/22 18:59 06:59 18:59 Intake Total 490 20 240 Output Total 875 1875 450 Balance -385 -1855 -210 Weight 123.5 kg Intake: IV 10 20 Invasive Line 1 10 20 Oral 480 240 Output: Urine 875 1875 450 Other: Voiding Method Indwelling Catheter Indwelling Catheter Indwelling Catheter - Labs CBC & Chem 7: 12/20/22 11:28 12/21/22 07:04 Labs: Abnormal Lab Results - Last 24 Hours (Table) 12/20/22 12/20/22 12/21/22 Range/Units 09:35 11:28 07:04 Hgb 9.5 L (11.4-16.0) gm/dL MCH 22.3 L (25.0-35.0) pg MCHC 27.3 L (31.0-37.0) g/dL RDW 18.8 H (11.5-15.5) % Lymphocytes # 0.7 L (1.0-4.8) k/uL BUN 45 H (7-17) mg/dL Creatinine 2.26 H (0.52-1.04) mg/dL Iron 24 L (50-170) ug/dL % Saturation 5.65 L (12.00-45.00)
--- NOTE | 2022-12-21 11:54 | P.PN ---
Subjective Progress Note Date: 12/21/22 Principal diagnosis: Shortness of breath. I'm seeing this patient in new consultation today 12/20/2022 for progressive shortness of breath. This is a 47-year-old -I[place] female with past medical history of CHF, hypertension, morbid obesity, obstructive sleep apnea without CPAP, home O2 3 L nasal cannula mostly at night, previous ventilator dependent respiratory failure, hypertension, chronic kidney disease stage IV, lymphedema, anemia, urinary tract infections. Patient is currently resting in bed, drowsy but arousable and oriented, on 6 L nasal cannula. She is somewhat a poor historian, but states that her shortness breath started approximately 3 days ago. She has associated lower extremity swelling which is 2-3+ bilaterally. Patient denies cough, fever, chest pain. Denies sick contacts. She has swelling of the left upper extremity, she is unable to tell me when this started. Chest x-ray performed on admission showed cardiomegaly and pulmonary edema that could be related to heart failure versus ARDS. A follow-up enhanced abdomen pelvis CT redemonstrated the patient's cardiomegaly with bibasilar infiltrates and atelectasis. Most recent echocardiogram performed on 07/05/2022 showed a preserved ejection fraction of 55-60% and overall limited views due to patient's body habitus. ProBNP was elevated at 12,500. She is receiving Lasix 80 mg IV every 12 hours and spironolactone daily. Patient's fluid balance is -4 L. VBG done on arrival showed a pH of 7.3, pCO2 52. Patient's CBC on arrival showed a WBC count of 8.8, hemoglobin 9.7, hematocrit 34.1, platelets 262,000. BMP on admission showed a sodium 139, potassium 4.5, chloride 108, serum CO2 26, BUN 42, creatinine chronically high at 2, glucose 108. Troponin was mildly elevated at 0.057. No obvious evidence of ischemic changes on ECG. Pro- calcitonin level was mildly elevated at 0.27 she has received empiric ceftriaxone and azithromycin. She is afebrile. Vital signs are stable at this time. Progress note dated 12/21/2022. 47-year-old black female who was admitted with a diagnosis of shortness of breath, secondary to CHF, although the patient does have a history of morbid obesity, hypertension, sleep apnea, and chronic kidney disease. Currently, the patient appears to be doing better. She is using the BiPAP at nighttime, with settings of 12/5 and 50%. Today when we saw her, she was on 2 L. She's not receiving any IV fluids. No new labs today other than a sodium 141, potassium 4.3, chlorides 107, CO2 29, BUN 45, and creatinine 2.26. Pro-calcitonin level is 0.27. Objective - Vital Signs Vital signs: Vital Signs Temp 98.2 F 12/21/22 08:30 Pulse 78 12/21/22 08:30 Resp 21 12/21/22 08:30 BP 146/93 12/21/22 08:30 Pulse Ox 98 12/21/22 11:13 FiO2 50 12/21/22 07:55 Intake & Output 12/20/22 12/21/22 12/21/22 18:59 06:59 18:59 Intake Total 490 20 240 Output Total 875 1875 1170 Balance -385 -7054 -930 Weight 123.5 kg Intake: IV 10 20 Invasive Line 1 10 20 Oral 480 240 Output: Urine 875 1875 1170 Other: Voiding Method Indwelling Catheter Indwelling Catheter Indwelling Catheter - Exam No acute distress, oriented 3. Currently on 2 L of oxygen. HEENT examination is grossly unremarkable. Neck supple. Full range of motion. No adenopathy thyromegaly or neck vein distention. Cardiovascular examination reveals regular rhythm rate. S1-S2 normal. No S3 or S4. No discernible murmur noted. Heart sounds are distant. Heart rate 70 bpm. Lungs reveal scattered rhonchi and crackles. Breath sounds equal. No wheezes. Saturations are 98%. Abdomen soft bowel sounds are heard. No masses or tenderness. Extremities are intact. No cyanosis or clubbing. 1+ edema is noted. Skin is without rash or lesion. Neurologic examination is brief but nonfocal. - Labs CBC & Chem 7: 12/20/22 11:28 12/21/22 07:04 Labs: Abnormal Lab Results - Last 24 Hours (Table) 12/20/22 12/20/22 12/21/22 Range/Units 09:35 11:28 07:04 Hgb 9.5 L (11.4-16.0) gm/dL MCH 22.3 L (25.0-35.0) pg MCHC 27.3 L (31.0-37.0) g/dL RDW 18.8 H (11.5-15.5) % Lymphocytes # 0.7 L (1.0-4.8) k/uL BUN 45 H (7-17) mg/dL Creatinine 2.26 H (0.52-1.04) mg/dL Iron 24 L (50-170) ug/dL % Saturation 5.65 L (12.00-45.00) Assessment and Plan Assessment: Acute on chronic hypoxic respiratory failure probably related to a combination of fluid overload and acute exacerbation of diastolic congestive heart failure. Patient has a component of chronic hypoxic respiratory failure related to her morbid obesity and obesity/hypoventilation syndrome. She has obstructive sleep apnea in which she is noncompliant with her CPAP or BiPAP at home. She does wear 3 L nasal cannula at home, mostly at night. History of ventilatory dependent respiratory failure. Left upper extremity swelling. Morbid obesity. Hypertension. CAD. Chronic kidney disease stage IV. Chronic anemia. Lymphedema. History DVT. History of SVT. Nonsmoker. Plan: Plan dated 12/21/2022. The patient appears be doing relatively well. The patient's currently on between 2-3 L of oxygen. Saturations are adequate. Labs, x-rays, and medications are reviewed. The patient is using BiPAP at nighttime, settings of 12/5 and 50%. She continues on IV Lasix. We will continue to follow the patien t make recommendations along the way. Prognosis is guarded. Time with Patient: Less than 30
--- NOTE | 2022-12-21 11:55 | P.PN ---
Subjective Patient is seen in follow-up for chronic kidney disease. Renal function slightly worse from diuresis. Dose of Lasix decreased by cardiology today. Nonoliguric. Dyspnea improved. Oral intake fair. Vital signs are stable. General: No acute distress. HEENT: Head exam is unremarkable. On nasal cannula. LUNGS: No audible rhonchi or wheezes. HEART: Rate and Rhythm are regular. ABDOMEN: Obese. Nontender. EXTREMITITES: 1+ edema. Objective - Vital Signs Vital signs: Vital Signs Temp 98.2 F 12/21/22 08:30 Pulse 78 12/21/22 08:30 Resp 21 12/21/22 08:30 BP 146/93 12/21/22 08:30 Pulse Ox 98 12/21/22 11:13 FiO2 50 12/21/22 07:55 Intake & Output 12/20/22 12/21/22 12/21/22 18:59 06:59 18:59 Intake Total 490 20 240 Output Total 875 1875 1170 Balance -385 -8110 -930 Weight 123.5 kg Intake: IV 10 20 Invasive Line 1 10 20 Oral 480 240 Output: Urine 875 1875 1170 Other: Voiding Method Indwelling Catheter Indwelling Catheter Indwelling Catheter - Labs CBC & Chem 7: 12/20/22 11:28 12/21/22 07:04 Labs: Abnormal Lab Results - Last 24 Hours (Table) 12/20/22 12/20/22 12/21/22 Range/Units 09:35 11:28 07:04 Hgb 9.5 L (11.4-16.0) gm/dL MCH 22.3 L (25.0-35.0) pg MCHC 27.3 L (31.0-37.0) g/dL RDW 18.8 H (11.5-15.5) % Lymphocytes # 0.7 L (1.0-4.8) k/uL BUN 45 H (7-17) mg/dL Creatinine 2.26 H (0.52-1.04) mg/dL Iron 24 L (50-170) ug/dL % Saturation 5.65 L (12.00-45.00) Assessment and Plan Plan: Assessment: 1. Chronic kidney disease stage IIIB secondary to cardiorenal syndrome. Baseline creatinine near 2. Renal function slightly worse from diuresis/IV contrast. 2. Acute on chronic diastolic CHF. 3. Volume overload. Improving with diuresis. 4. Hypertension with chronic kidney disease. 5. Anemia of chronic kidney disease. Iron deficiency noted. Plan: Maintain IV Lasix - dose decreased to 40 mg IV twice daily this morning. Low-salt diet. Add IV iron. Avoid nephrotoxins. Hold clonidine for systolic blood pressure less than 110. Continue to monitor renal function and urine output. F/u urinalysis. Monitor for contrast-induced acute kidney injury. Serologies have been negative in the past.
[2022-12-21] MEDS: SODIUM FERRIC GLUCONAT-SUCROSE 125 MG in SODIUM CHLORIDE 0.9% 100 ML IVPB SCH (12:48)
[2022-12-21] MEDS: ACETAMINOPHEN TAB 325 MG TAB PO PRN (14:28)
[2022-12-21 16:54] LABS: Appearance,Urine Clear (Clear); Bilirubin,Urine Negative (Negative); Blood,Urine Small (Negative); Color,Urine Light Yellow; Glucose,Urine (UA) Negative (Negative); Hyaline Casts,Urine 4 /lpf (0-2); Ketones,Urine Negative (Negative); Leukocyte Esterase,Urine Trace (Negative); Mucus,Urine Rare /hpf; Nitrite,Urine Negative (Negative); Protein,Urine 1+ (Negative); RBC,Urine 18 /hpf (0-5); Specific Gravity,Urine 1.013 (1.001-1.035); Squamous Epithelial Cell,Urine <1 /hpf (0-4); Urobilinogen,Urine <2.0 mg/dL (<2.0); WBC,Urine 3 /hpf (0-5)
[2022-12-21] MEDS: FUROSEMIDE 10 MG/ML 4 ML VIAL IV SCH (19:53)
[2022-12-21] MEDS ORDERED: FUROSEMIDE 10 MG/ML 4 ML VIAL IV SCH (21:00)
[2022-12-21] MEDS: NYSTATIN 100,000 UNIT/GM POWD 15 GM TOPICAL SCH (21:30)
[2022-12-22] MEDS: PANTOPRAZOLE 40 MG TABLET PO SCH (05:49)
--- NOTE | 2022-12-22 06:30 | P.PN ---
Subjective Progress Note Date: 12/22/22 Principal diagnosis: CHF The patient is a pleasant 47-year-old Turkish female patient with a past medical history significant for morbid obesity and history of congestive heart f ailure was admitted to the hospital with heart failure again. This time she underwent an echo which revealed cardiomyopathy with EF around 35% which has decreased compared to before. Also she was in acute renal failure. 12/22/2022 The patient was seen and evaluated this morning. She remains in failure. She is still hypoxic reaches to have bilateral lower extremities edema. She continues to be on Bumex IV and she has been diuresing very well. At this point I would recommend continue the current medical regimen. Clearly the patient still hypervolemic. Continue monitor the kidney function and electrolytes. Consider optimize medical treatment for cardiomyopathy once the kidney function improved. Assessment Congestive heart failure related to heart failure with reduced ejection fraction Cardiomyopathy, unknown to be ischemic or nonischemic Morbid obesity Acute on chronic renal failure Multiple comorbid conditions Plan Continue the current medical regimen Continue monitor the kidney function and electrolytes Consider optimize medical treatment for cardiomyopathy Objective - Vital Signs Vital signs: Vital Signs Temp 97.8 F 12/22/22 03:53 Pulse 55 L 12/22/22 03:53 Resp 18 12/22/22 03:53 BP 122/52 12/22/22 03:53 Pulse Ox 95 12/21/22 20:00 FiO2 50 12/22/22 03:56 Intake & Output 12/21/22 12/21/22 12/22/22 06:59 18:59 06:59 Intake Total 20 476 Output Total 1875 2170 1400 Balance -9895 -1674 -1400 Weight 123.5 kg Intake: IV 20 Invasive Line 1 20 Oral 476 Output: Urine 1875 2170 1400 Other: Voiding Method Indwelling Catheter Indwelling Catheter Indwelling Catheter - Labs CBC & Chem 7: 12/20/22 11:28 12/21/22 07:04 Labs: Abnormal Lab Results - Last 24 Hours (Table) 12/21/22 12/21/22 Range/Units 07:04 16:40 BUN 45 H (7-17) mg/dL Creatinine 2.26 H (0.52-1.04) mg/dL Urine Protein 1+ H (Negative) Urine Blood Small H (Negative) Ur Leukocyte Esterase Trace H (Negative) Urine RBC 18 H (0-5) /hpf Hyaline Casts 4 H (0-2) /lpf Urine Mucus Rare H (None) /hpf
[2022-12-22] MEDS: HEPARIN SODIUM,PORCINE/PF 5,000 UNIT/0.5 ML SYRINGE SQ SCH ×3 (08:21→23:58)
[2022-12-22] MEDS: FUROSEMIDE 10 MG/ML 4 ML VIAL IV SCH (08:21)
[2022-12-22] MEDS: FOLIC ACID 1 MG TAB PO SCH (08:22)
[2022-12-22] MEDS: AZITHROMYCIN 500 MG in SODIUM CHLORIDE 0.9% 250 ML IVPB SCH (08:22)
[2022-12-22] MEDS: cloNIDine HCL 0.1 MG TAB PO SCH ×3 (08:22→21:20)
[2022-12-22] MEDS: METOPROLOL TARTRATE 50 MG TAB PO SCH ×2 (08:22→19:59)
[2022-12-22] MEDS: ASPIRIN 81 MG PO SCH (08:22)
[2022-12-22] MEDS: MAGNESIUM OXIDE 400 MG TAB PO SCH ×2 (08:22→19:58)
[2022-12-22] MEDS: NYSTATIN 100,000 UNIT/GM POWD 15 GM TOPICAL SCH ×2 (08:23→21:20)
[2022-12-22] MEDS: ACETAMINOPHEN TAB 325 MG TAB PO PRN ×2 (08:29→19:59)
[2022-12-22] MEDS ORDERED: BUMETANIDE 1 MG TAB PO SCH (09:00)
[2022-12-22 09:01] LABS: Calcium 8.9 mg/dL (8.4-10.2); Magnesium 2.2 mg/dL (1.6-2.3); Potassium 5.5 mmol/L (3.5-5.1)
[2022-12-22] MEDS ORDERED: SODIUM ZIRCONIUM CYCLOSILICATE 10 GM PACKET PO ONE (10:00)
[2022-12-22] MEDS: SODIUM FERRIC GLUCONAT-SUCROSE 125 MG in SODIUM CHLORIDE 0.9% 100 ML IVPB SCH (10:53)
--- NOTE | 2022-12-22 11:51 | P.PN ---
Subjective Progress Note Date: 12/22/22 Principal diagnosis: Shortness of breath. I'm seeing this patient in new consultation today 12/20/2022 for progressive shortness of breath. This is a 47-year-old -Guyanese female with past medical history of CHF, hypertension, morbid obesity, obstructive sleep apnea without CPAP, home O2 3 L nasal cannula mostly at night, previous ventilator dependent respiratory failure, hypertension, chronic kidney disease stage IV, lymphedema, anemia, urinary tract infections. Patient is currently resting in bed, drowsy but arousable and oriented, on 6 L nasal cannula. She is somewhat a poor historian, but states that her shortness breath started approximately 3 days ago. She has associated lower extremity swelling which is 2-3+ bilaterally. Patient denies cough, fever, chest pain. Denies sick contacts. She has swelling of the left upper extremity, she is unable to tell me when this started. Chest x-ray performed on admission showed cardiomegaly and pulmonary edema that could be related to heart failure versus ARDS. A follow-up enhanced abdomen pelvis CT redemonstrated the patient's cardiomegaly with bibasilar infiltrates and atelectasis. Most recent echocardiogram performed on 07/05/2022 showed a preserved ejection fraction of 55-60% and overall limited views due to patient's body habitus. ProBNP was elevated at 12,500. She is receiving Lasix 80 mg IV every 12 hours and spironolactone daily. Patient's fluid balance is -4 L. VBG done on arrival showed a pH of 7.3, pCO2 52. Patient's CBC on arrival showed a WBC count of 8.8, hemoglobin 9.7, hematocrit 34.1, platelets 262,000. BMP on admission showed a sodium 139, potassium 4.5, chloride 108, serum CO2 26, BUN 42, creatinine chronically high at 2, glucose 108. Troponin was mildly elevated at 0.057. No obvious evidence of ischemic changes on ECG. Pro- calcitonin level was mildly elevated at 0.27 she has received empiric ceftriaxone and azithromycin. She is afebrile. Vital signs are stable at this time. Progress note dated 12/21/2022. 47-year-old black female who was admitted with a diagnosis of shortness of breath, secondary to CHF, although the patient does have a history of morbid obesity, hypertension, sleep apnea, and chronic kidney disease. Currently, the patient appears to be doing better. She is using the BiPAP at nighttime, with settings of 12/5 and 50%. Today when we saw her, she was on 2 L. She's not receiving any IV fluids. No new labs today other than a sodium 141, potassium 4.3, chlorides 107, CO2 29, BUN 45, and creatinine 2.26. Pro-calcitonin level is 0.27. Progress note dated 12/22/2022. 47-year-old black female was admitted with a diagnosis of acute hypoxemic respiratory chronic secondary to CHF. Currently, the patient is on 3 L of oxygen. She's not receiving any IV fluids. At nighttime, she uses BiPAP, with settings of 12/5 and 50%. Laboratory data today includes a sodium 142, potassium 5.5, chlorides 110, CO2 26, anion gap 6, BUN 47, and creatinine 2.10. Glucose 115. Objective - Vital Signs Vital signs: Vital Signs Temp 98.2 F 12/22/22 08:16 Pulse 64 12/22/22 11:23 Resp 16 12/22/22 08:16 BP 114/65 12/22/22 11:23 Pulse Ox 98 12/22/22 11:23 FiO2 50 12/22/22 03:56 Intake & Output 12/21/22 12/22/22 12/22/22 18:59 06:59 18:59 Intake Total 476 240 Output Total 2170 1400 900 Balance -6877 -1400 -425 Weight 135 kg Intake: Oral 476 240 Output: Urine 2170 1400 900 Other: Voiding Method Indwelling Catheter Indwelling Catheter Indwelling Catheter - Exam No acute distress, oriented 3. Currently on 3 L of oxygen. HEENT examination is grossly unremarkable. Neck supple. Full range of motion. No adenopathy thyromegaly or neck vein dis tention. Cardiovascular examination reveals regular rhythm rate. S1-S2 normal. No S3 or S4. No discernible murmur noted. Heart sounds are distant. Heart rate 64 bpm. Lungs reveal scattered rhonchi and crackles. Breath sounds equal. No wheezes. Saturations are 98%. Abdomen soft bowel sounds are heard. No masses or tenderness. Extremities are intact. No cyanosis or clubbing. 1+ edema is noted. Skin is without rash or lesion. Neurologic examination is brief but nonfocal. - Labs CBC & Chem 7: 12/20/22 11:28 12/22/22 08:29 Labs: Abnormal Lab Results - Last 24 Hours (Table) 12/21/22 12/22/22 Range/Units 16:40 08:29 Potassium 5.5 H (3.5-5.1) mmol/L Chloride 110 H (98-107) mmol/L BUN 47 H (7-17) mg/dL Creatinine 2.10 H (0.52-1.04) mg/dL Glucose 115 H (74-99) mg/dL Urine Protein 1+ H (Negative) Urine Blood Small H (Negative) Ur Leukocyte Esterase Trace H (Negative) Urine RBC 18 H (0-5) /hpf Hyaline Casts 4 H (0-2) /lpf Urine Mucus Rare H (None) /hpf Assessment and Plan Assessment: Acute on chronic hypoxic respiratory failure probably related to a combination of fluid overload and acute exacerbation of diastolic congestive heart failure. Patient has a component of chronic hypoxic respiratory failure related to her morbid obesity and obesity/hypoventilation syndrome. She has obstructive sleep apnea in which she is noncompliant with her CPAP or BiPAP at home. She does wear 3 L nasal cannula at home, mostly at night. History of ventilatory dependent respiratory failure. Left upper extremity swelling. Morbid obesity. Hypertension. CAD. Chronic kidney disease stage IV. Chronic anemia. Lymphedema. History DVT. History of SVT. Nonsmoker. Plan: Plan dated 12/21/2022. The patient appears be doing relatively well. The patient's currently on between 2-3 L of oxygen. Saturations are adequate. Labs, x-rays, and medications are reviewed. The patient is using BiPAP at nighttime, settings of 12/5 and 50%. She continues on IV Lasix. We will continue to follow the patient make recommendations along the way. Prognosis is guarded. Plan dated 12/22/2022. The patient appears to be doing better. She continues on 3 L of oxygen. Labs, x-rays, medications are reviewed. Clinically, she is feeling better. Labs, x-rays, medications are reviewed. Her medications are appropriate. Prognosis is guarded. We will continue to follow the patient make recommendations along the way. She should continue using BiPAP at nighttime, her anytime during the day, when she is feeling more winded or short of breath. Time with Patient: Less than 30
--- NOTE | 2022-12-22 12:18 | P.PN ---
Subjective Patient is seen for follow-up for chronic kidney disease. Baseline creatinine around 1.8-2 mg/dL. Patient is currently being diuresed Lasix is at 40 mg IV every 12 hours. Potassium was 5.5 today and creatinine 2.1 Patient has an indwelling Colon catheter Objective - Vital Signs Vital signs: Vital Signs Temp 98.2 F 12/22/22 08:16 Pulse 64 12/22/22 11:23 Resp 16 12/22/22 08:16 BP 114/65 12/22/22 11:23 Pulse Ox 98 12/22/22 11:23 FiO2 50 12/22/22 03:56 Intake & Output 12/21/22 12/22/22 12/22/22 18:59 06:59 18:59 Intake Total 476 240 Output Total 2170 1400 900 Balance -6323 -2993 -443 Weight 135 kg Intake: Oral 476 240 Output: Urine 2170 1400 900 Other: Voiding Method Indwelling Catheter Indwelling Catheter Indwelling Catheter - Exam Patient is awake, comfortable, no acute distress Examination of the heart S1 and S2 Examination of the lungs bilateral breath sounds are heard Abdomen is soft morbidly obese Examination lower extremity shows chronic edema - Labs CBC & Chem 7: 12/20/22 11:28 12/22/22 08:29 Labs: Abnormal Lab Results - Last 24 Hours (Table) 12/21/22 12/22/22 Range/Units 16:40 08:29 Potassium 5.5 H (3.5-5.1) mmol/L Chloride 110 H (98-107) mmol/L BUN 47 H (7-17) mg/dL Creatinine 2.10 H (0.52-1.04) mg/dL Glucose 115 H (74-99) mg/dL Urine Protein 1+ H (Negative) Urine Blood Small H (Negative) Ur Leukocyte Esterase Trace H (Negative) Urine RBC 18 H (0-5) /hpf Hyaline Casts 4 H (0-2) /lpf Urine Mucus Rare H (None) /hpf Assessment and Plan Assessment: 1. Chronic kidney disease stage IIIB secondary to cardiorenal syndrome. Baseline creatinine near 2. Renal function slightly worse from diuresis/IV contrast, but close to baseline 2. Acute on chronic diastolic CHF. 3. Volume overload. Improving with diuresis. 4. Hypertension with chronic kidney disease. 5. Anemia of chronic kidney disease. Iron deficiency noted. Plan: Continue with IV Lasix Repeat labs in a.m. Continue with IV iron Avoid hypotension
--- NOTE | 2022-12-22 21:29 | PN ---
PROGRESS NOTE DATE OF SERVICE: 12/21/2022 CHIEF COMPLAINT: Congestive heart failure. HISTORY OF PRESENT ILLNESS: This lady states she is feeling a little bit better each day and a little bit less short of breath. PHYSICAL EXAMINATION: CHEST: Breath sounds clear. CARDIAC: Normal. ABDOMEN: Protuberant. IMPRESSION: 1. Acute on chronic congestive heart failure. 2. Cardiomyopathy. 3. Morbid obesity. 4. Pickwickian syndrome. PLAN: Continue the inpatient management with diuresis until it is safe to send her home. MMODL / IJN: [id number] /
--- NOTE | 2022-12-22 22:00 | PN ---
PROGRESS NOTE DATE OF SERVICE: 12/22/2022 CHIEF COMPLAINT: Acute on chronic congestive heart failure. HISTORY OF PRESENT ILLNESS: This lady states that she is doing a little bit better. She is a little bit less short of breath each day. PHYSICAL EXAMINATION: CHEST: Good breath sounds are heard bilaterally. CARDIAC: Normal. ABDOMEN: Protuberant. IMPRESSION: 1. Acute on chronic congestive heart failure. 2. Morbid obesity. PLAN: No change and continue with diuresis. MMODL / IJN: [id number] /
[2022-12-23] MEDS: PANTOPRAZOLE 40 MG TABLET PO SCH (06:43)
--- NOTE | 2022-12-23 08:21 | P.PN ---
Subjective Progress Note Date: 12/23/22 Principal diagnosis: CHF The patient is a pleasant 47-year-old [place] female patient with a past medical history significant for morbid obesity and history of congestive heart f ailure was admitted to the hospital with heart failure again. This time she underwent an echo which revealed cardiomyopathy with EF around 35% which has decreased compared to before. Also she was in acute renal failure. 12/22/2022 The patient was seen and evaluated this morning. She remains in failure. She is still hypoxic reaches to have bilateral lower extremities edema. She continues to be on Bumex IV and she has been diuresing very well. At this point I would recommend continue the current medical regimen. Clearly the patient still hypervolemic. Continue monitor the kidney function and electrolytes. Consider optimize medical treatment for cardiomyopathy once the kidney function improved. 12/23/2022 The patient was seen this morning. She continues to be extremely hypervolemic with severe bilateral lower except his edema. She was switched into oral loop diuretics using Bumex. I believe that the patient need to be on IV diuretics at this point. We will touch base with the internal medicine service as well as nephrology service. The creatinine continues to be stable. On examination she still have severe bilateral lower except his edema was diminished breathing soun ds bilaterally. Assessment Congestive heart failure related to heart failure with reduced ejection fraction Cardiomyopathy, unknown to be ischemic or nonischemic Morbid obesity Chronic renal failure Multiple comorbid conditions Plan Consider restarting the patient back on IV diuretics Continue monitoring the kidney function and electrolytes Consider optimizing medical treatment for cardiomyopathy once the creatinine is stable Follow-up with the patient Objective - Vital Signs Vital signs: Vital Signs Temp 98.4 F 12/23/22 04:00 Pulse 57 L 12/23/22 04:00 Resp 15 12/23/22 04:00 BP 147/77 12/23/22 04:00 Pulse Ox 100 12/23/22 04:00 FiO2 50 12/23/22 04:00 Intake & Output 12/22/22 12/23/22 12/23/22 18:59 06:59 18:59 Intake Total 358 Output Total 1850 675 Balance -1082 -354 Weight 135 kg 145 kg Intake: Oral 358 Output: Urine 1850 675 Other: Voiding Method Indwelling Catheter Indwelling Catheter - Labs CBC & Chem 7: 12/20/22 11:28 12/22/22 08:29 Labs: Abnormal Lab Results - Last 24 Hours (Table) 12/22/22 Range/Units 08:29 Potassium 5.5 H (3.5-5.1) mmol/L Chloride 110 H (98-107) mmol/L BUN 47 H (7-17) mg/dL Creatinine 2.10 H (0.52-1.04) mg/dL Glucose 115 H (74-99) mg/dL
[2022-12-23] MEDS: cloNIDine HCL 0.1 MG TAB PO SCH ×3 (08:53→20:57)
[2022-12-23] MEDS: MAGNESIUM OXIDE 400 MG TAB PO SCH ×2 (08:54→20:55)
[2022-12-23] MEDS: HEPARIN SODIUM,PORCINE/PF 5,000 UNIT/0.5 ML SYRINGE SQ SCH ×2 (08:54→15:35)
[2022-12-23] MEDS: ASPIRIN 81 MG PO SCH (08:54)
[2022-12-23] MEDS: FOLIC ACID 1 MG TAB PO SCH (08:54)
[2022-12-23] MEDS: NYSTATIN 100,000 UNIT/GM POWD 15 GM TOPICAL SCH (08:54)
[2022-12-23] MEDS: METOPROLOL TARTRATE 50 MG TAB PO SCH ×2 (08:54→20:55)
[2022-12-23] MEDS ORDERED: BUMETANIDE 1 MG TAB PO SCH (09:00)
[2022-12-23 09:18] LABS: Calcium 8.8 mg/dL (8.4-10.2)
[2022-12-23 09:21] LABS: Potassium 4.8 mmol/L (3.5-5.1)
[2022-12-23] MEDS: SODIUM FERRIC GLUCONAT-SUCROSE 125 MG in SODIUM CHLORIDE 0.9% 100 ML IVPB SCH (09:58)
[2022-12-23 11:30] LABS: Anisocytosis Slight; Basophils % (A) 0 %; Eosinophils # (A) 0.2 k/uL (0-0.7); Eosinophils % (A) 3 %; HGB 9.6 gm/dL (11.4-16.0); Hypochromasia Marked; Lymphocytes # (A) 0.6 k/uL (1.0-4.8); Lymphocytes % (A) 9 %; MCH 22.5 pg (25.0-35.0); MCHC 28.2 g/dL (31.0-37.0); MCV 79.7 fL (80.0-100.0); Mean Platelet Volume 9.7; Microcytosis Slight; Monocytes # (A) 0.5 k/uL (0-1.0); Monocytes % (A) 7 %; Neutrophils # (A) 5.6 k/uL (1.3-7.7); Neutrophils % (A) 80 %; Platelet Count 198 k/uL (150-450); Poikilocytosis Slight; RBC 4.26 m/uL (3.80-5.40); RDW 19.3 % (11.5-15.5)
--- NOTE | 2022-12-23 11:46 | P.PN ---
Subjective Progress Note Date: 12/23/22 Principal diagnosis: Shortness of breath. I'm seeing this patient in new consultation today 12/20/2022 for progressive shortness of breath. This is a 47-year-old -[place] female with past medical history of CHF, hypertension, morbid obesity, obstructive sleep apnea without CPAP, home O2 3 L nasal cannula mostly at night, previous ventilator dependent respiratory failure, hypertension, chronic kidney disease stage IV, lymphedema, anemia, urinary tract infections. Patient is currently resting in bed, drowsy but arousable and oriented, on 6 L nasal cannula. She is somewhat a poor historian, but states that her shortness breath started approximately 3 days ago. She has associated lower extremity swelling which is 2-3+ bilaterally. Patient denies cough, fever, chest pain. Denies sick contacts. She has swelling of the left upper extremity, she is unable to tell me when this started. Chest x-ray performed on admission showed cardiomegaly and pulmonary edema that could be related to heart failure versus ARDS. A follow-up enhanced abdomen pelvis CT redemonstrated the patient's cardiomegaly with bibasilar infiltrates and atelectasis. Most recent echocardiogram performed on 07/05/2022 showed a preserved ejection fraction of 55-60% and overall limited views due to patient's body habitus. ProBNP was elevated at 12,500. She is receiving Lasix 80 mg IV every 12 hours and spironolactone daily. Patient's fluid balance is -4 L. VBG done on arrival showed a pH of 7.3, pCO2 52. Patient's CBC on arrival showed a WBC count of 8.8, hemoglobin 9.7, hematocrit 34.1, platelets 262,000. BMP on admission showed a sodium 139, potassium 4.5, chloride 108, serum CO2 26, BUN 42, creatinine chronically high at 2, glucose 108. Troponin was mildly elevated at 0.057. No obvious evidence of ischemic changes on ECG. Pro- calcitonin level was mildly elevated at 0.27 she has received empiric ceftriaxone and azithromycin. She is afebrile. Vital signs are stable at this time. Progress note dated 12/21/2022. 47-year-old black female who was admitted with a diagnosis of shortness of breath, secondary to CHF, although the patient does have a history of morbid obesity, hypertension, sleep apnea, and chronic kidney disease. Currently, the patient appears to be doing better. She is using the BiPAP at nighttime, with settings of 12/5 and 50%. Today when we saw her, she was on 2 L. She's not receiving any IV fluids. No new labs today other than a sodium 141, potassium 4.3, chlorides 107, CO2 29, BUN 45, and creatinine 2.26. Pro-calcitonin level is 0.27. Progress note dated 12/22/2022. 47-year-old black female was admitted with a diagnosis of acute hypoxemic respiratory chronic secondary to CHF. Currently, the patient is on 3 L of oxygen. She's not receiving any IV fluids. At nighttime, she uses BiPAP, with settings of 12/5 and 50%. Laboratory data today includes a sodium 142, potassium 5.5, chlorides 110, CO2 26, anion gap 6, BUN 47, and creatinine 2.10. Glucose 115. Progress note dated 12/23/2022. 47-year-old black female, obese, with a diagnosis of acute hypoxemic respiratory failure, secondary to CHF, with fluid overload. Currently, the patient's on 2 L of oxygen. At nighttime, she uses BiPAP, with settings of 12/5 and 50%. Clinically, she is improved. White count 7, hemoglobin 9.6, hematocrit 34, with a normal platelet count. Sodium 140, potassium 4.8, chlorides 107, CO2 25, normal anion gap, UN 44, and creatinine 1.88. Objective - Vital Signs Vital signs: Vital Signs Temp 98.4 F 12/23/22 04:00 Pulse 70 12/23/22 11:21 Resp 15 12/23/22 11:21 BP 146/87 12/23/22 11:21 Pulse Ox 99 12/23/22 11:21 FiO2 50 12/23/22 04:00 Intake & Output 12/22/22 12/23/22 12/23/22 18:59 06:59 18:59 Intake Total 358 600 Output Total 1850 675 900 Balance -1492 -675 -300 Weight 135 kg 145 kg Intake: Oral 358 600 Output: Urine 1850 675 900 Other: Voiding Method Indwelling Catheter Indwelling Catheter Indwelling Catheter - Exam No acute distress, oriented 3. Currently on 2 L of oxygen. HEENT examination is grossly unremarkable. Neck supple. Full range of motion. No adenopathy thyromegaly or neck vein distention. Cardiovascular examination reveals regular rhythm rate. S1-S2 normal. No S3 or S4. No discernible murmur noted. Heart sounds are distant. Heart rate 70 bpm. Lungs reveal scattered rhonchi and crackles. Breath sounds equal. No wheezes. Saturations are 97 %. Abdomen soft bowel sounds are heard. No masses or tenderness. Extremities are intact. No cyanosis or clubbing. 1+ edema is noted. Skin is without rash or lesion. Neurologic examination is brief but nonfocal. - Labs CBC & Chem 7: 12/23/22 10:55 12/23/22 07:55 Labs: Abnormal Lab Results - Last 24 Hours (Table) 12/23/22 12/23/22 Range/Units 07:55 10:55 Hgb 9.6 L (11.4-16.0) gm/dL MCV 79.7 L (80.0-100.0) fL MCH 22.5 L (25.0-35.0) pg MCHC 28.2 L (31.0-37.0) g/dL RDW 19.3 H (11.5-15.5) % Lymphocytes # 0.6 L (1.0-4.8) k/uL BUN 44 H (7-17) mg/dL Creatinine 1.88 H (0.52-1.04) mg/dL Glucose 102 H (74-99) mg/dL Assessment and Plan Assessment: Acute on chronic hypoxic respiratory failure probably related to a combination of fluid overload and acute exacerbation of diastolic congestive heart failure. Patient has a component of chronic hypoxic respiratory failure related to her morbid obesity and obesity/hypoventilation syndrome. She has obstructive sleep apnea in which she is noncompliant with her CPAP or BiPAP at home. She does wear 3 L nasal cannula at home, mostly at night. History of ventilatory dependent respiratory failure. Left upper extremity swelling. Morbid obesity. Hypertension. CAD. Chronic kidney disease stage IV. Chronic anemia. Lymphedema. History DVT. History of SVT. Nonsmoker. Plan: Plan dated 12/21/2022. The patient appears be doing relatively well. The patient's currently on b etween 2-3 L of oxygen. Saturations are adequate. Labs, x-rays, and medications are reviewed. The patient is using BiPAP at nighttime, settings of 12/5 and 50%. She continues on IV Lasix. We will continue to follow the patient make recommendations along the way. Prognosis is guarded. Plan dated 12/22/2022. The patient appears to be doing better. She continues on 3 L of oxygen. Labs, x-rays, medications are reviewed. Clinically, she is feeling better. Labs, x- rays, medications are reviewed. Her medications are appropriate. Prognosis is guarded. We will continue to follow the patient make recommendations along the way. She should continue using BiPAP at nighttime, her anytime during the day, when she is feeling more winded or short of breath. Plan dated 12/23/2022. The patient appears to be about the same. She's using nasal O2 during the daytime, and the BiPAP, at nighttime. Labs, x-rays, medications are all reviewed. Medications are appropriate. We will continue to follow her and make recommendations along way. Overall prognosis remains very guarded. Time with Patient: Less than 30
--- NOTE | 2022-12-23 12:08 | P.PN ---
Subjective Patient is seen for follow-up for chronic kidney disease. Baseline creatinine around 1.8-2 mg/dL. Patient is currently being diuresed Lasix was at 40 mg IV every 12 hours. Switch to oral Bumex yesterday Patient is complaining of increased abdominal distention and edema along with shortness of breath. Serum creatinine at 1.8 down from 2.2 Patient has an indwelling Colon catheter Objective - Vital Signs Vital signs: Vital Signs Temp 98.4 F 12/23/22 04:00 Pulse 70 12/23/22 11:21 Resp 15 12/23/22 11:21 BP 146/87 12/23/22 11:21 Pulse Ox 99 12/23/22 11:21 FiO2 50 12/23/22 04:00 Intake & Output 12/22/22 12/23/22 12/23/22 18:59 06:59 18:59 Intake Total 358 600 Output Total 1850 675 900 Balance -1492 -675 -300 Weight 135 kg 145 kg Intake: Oral 358 600 Output: Urine 1850 675 900 Other: Voiding Method Indwelling Catheter Indwelling Catheter Indwelling Catheter - Exam Patient is awake, comfortable, no acute distress Examination of the heart S1 and S2 Examination of the lungs bilateral breath sounds are heard. Distant due to body habitus Abdomen is soft morbidly obese Examination lower extremity shows chronic edema - Labs CBC & Chem 7: 12/23/22 10:55 12/23/22 07:55 Labs: Abnormal Lab Results - Last 24 Hours (Table) 12/23/22 12/23/22 Range/Units 07:55 10:55 Hgb 9.6 L (11.4-16.0) gm/dL MCV 79.7 L (80.0-100.0) fL MCH 22.5 L (25.0-35.0) pg MCHC 28.2 L (31.0-37.0) g/dL RDW 19.3 H (11.5-15.5) % Lymphocytes # 0.6 L (1.0-4.8) k/uL BUN 44 H (7-17) mg/dL Creatinine 1.88 H (0.52-1.04) mg/dL Glucose 102 H (74-99) mg/dL Assessment and Plan Assessment: 1. Chronic kidney disease stage IIIB secondary to cardiorenal syndrome. Baseline creatinine near 2. Renal function slightly worse from diuresis/IV contrast, but close to baseline 2. Acute on chronic diastolic CHF. 3. Volume overload. 4. Hypertension with chronic kidney disease. 5. Anemia of chronic kidney disease. Iron deficiency noted. Plan: Switch back to IV Lasix Repeat labs in a.m. Continue with IV iron Avoid hypotension
--- NOTE | 2022-12-23 12:10 | XR ---
EXAMINATION TYPE: XR chest 1V DATE OF EXAM: 12/23/2022 COMPARISON: 12/20/2022 INDICATION: CHF TECHNIQUE: Single frontal view of the chest is obtained. FINDINGS: The heart size is enlarged. The pulmonary vasculature is normal. The lungs are clear. Retrocardiac infiltrate may be difficult to exclude. There is silhouetting the left diaphragm. The exam is somewhat underpenetrated due to patient body habitus. IMPRESSION: 1. Cardiomegaly. 2. Retrocardiac infiltration be considered. Follow-up is recommended
[2022-12-23] MEDS ORDERED: ALPRAZolam 0.25 MG TAB PO PRN (13:54)
[2022-12-23] MEDS: ACETAMINOPHEN TAB 325 MG TAB PO PRN (20:54)
[2022-12-23] MEDS: FUROSEMIDE 10 MG/ML 4 ML VIAL IV SCH (20:58)
[2022-12-24] MEDS: NYSTATIN 100,000 UNIT/GM POWD 15 GM TOPICAL SCH ×3 (01:45→20:51)
[2022-12-24] MEDS: hydrALAZINE HCL 20 MG/ML 1 ML VIAL IVP PRN ×2 (01:47→06:51)
[2022-12-24] MEDS: HEPARIN SODIUM,PORCINE/PF 5,000 UNIT/0.5 ML SYRINGE SQ SCH ×4 (01:48→23:24)
--- NOTE | 2022-12-24 04:31 | PN ---
PROGRESS NOTE DATE OF SERVICE: 12/23/2022 CHIEF COMPLAINT: Congestive heart failure. HISTORY OF PRESENT ILLNESS: This lady is doing fairly well. Apparently, she became very anxious today and had a panic attack. PHYSICAL EXAMINATION: CHEST: She has good breath sounds bilaterally. CARDIAC: Sounds like sinus rhythm. IMPRESSION: 1. Morbid obesity. 2. Congestive heart failure. 3. Cardiomyopathy. 4. Anxiety. PLAN: 1. Xanax p.r.n. 2. Continue with diuresis in hopes that she could go home in the next day or so. MMODL / IJN: [id number] /
[2022-12-24] MEDS: PANTOPRAZOLE 40 MG TABLET PO SCH (06:51)
[2022-12-24] MEDS: FUROSEMIDE 10 MG/ML 4 ML VIAL IV SCH ×3 (08:45→23:24)
[2022-12-24] MEDS: MAGNESIUM OXIDE 400 MG TAB PO SCH ×2 (08:45→20:45)
[2022-12-24] MEDS: METOPROLOL TARTRATE 50 MG TAB PO SCH (08:45)
[2022-12-24] MEDS: ASPIRIN 81 MG PO SCH (08:45)
[2022-12-24] MEDS: FOLIC ACID 1 MG TAB PO SCH (08:45)
[2022-12-24] MEDS: cloNIDine HCL 0.1 MG TAB PO SCH ×3 (08:45→21:46)
[2022-12-24] MEDS: SODIUM FERRIC GLUCONAT-SUCROSE 125 MG in SODIUM CHLORIDE 0.9% 100 ML IVPB SCH (09:40)
[2022-12-24] MEDS: carvediloL 12.5 MG TAB PO SCH ×2 (09:43→17:29)
[2022-12-24] MEDS: ACETAMINOPHEN TAB 325 MG TAB PO PRN ×2 (10:42→20:44)
--- NOTE | 2022-12-24 13:24 | P.PN ---
Subjective Progress Note Date: 12/24/22 I'm seeing this patient in new consultation today 12/20/2022 for progressive shortness of breath. This is a 47-year-old -[place] female with past medical history of CHF, hypertension, morbid obesity, obstructive sleep apnea without CPAP, home O2 3 L nasal cannula mostly at night, previous ventilator dependent respiratory failure, hypertension, chronic kidney disease stage IV, lymphedema, anemia, urinary tract infections. Patient is currently resting in bed, drowsy but arousable and oriented, on 6 L nasal cannula. She is somewhat a poor historian, but states that her shortness breath started approximately 3 days ago. She has associated lower extremity swelling which is 2-3+ bilaterally . Patient denies cough, fever, chest pain. Denies sick contacts. She has swelling of the left upper extremity, she is unable to tell me when this started. Chest x-ray performed on admission showed cardiomegaly and pulmonary edema that could be related to heart failure versus ARDS. A follow-up enhanced abdomen pelvis CT redemonstrated the patient's cardiomegaly with bibasilar infiltrates and atelectasis. Most recent echocardiogram performed on 07/05/2022 showed a preserved ejection fraction of 55-60% and overall limited views due to patient's body habitus. ProBNP was elevated at 12,500. She is receiving Lasix 80 mg IV every 12 hours and spironolactone daily. Patient's fluid balance is -4 L. VBG done on arrival showed a pH of 7.3, pCO2 52. Patient's CBC on arrival showed a WBC count of 8.8, hemoglobin 9.7, hematocrit 34.1, platelets 262,000. BMP on admission showed a sodium 139, potassium 4.5, chloride 108, serum CO2 26, BUN 42, creatinine chronically high at 2, glucose 108. Troponin was mildly elevated at 0.057. No obvious evidence of ischemic changes on ECG. Pro-calcitonin level was mildly elevated at 0.27 she has received empiric ceftriaxone and azithromycin. She is afebrile. Vital signs are stable at this time. Progress note dated 12/21/2022. 47-year-old black female who was admitted with a diagnosis of shortness of breath, secondary to CHF, although the patient does have a history of morbid obesity, hypertension, sleep apnea, and chronic kidney disease. Currently, the patient appears to be doing better. She is using the BiPAP at nighttime, with settings of 12/5 and 50%. Today when we saw her, she was on 2 L. She's not receiving any IV fluids. No new labs today other than a sodium 141, potassium 4.3, chlorides 107, CO2 29, BUN 45, and creatinine 2.26. Pro-calcitonin level is 0.27. Progress note dated 12/22/2022. 47-year-old black female was admitted with a diagnosis of acute hypoxemic respiratory chronic secondary to CHF. Currently, the patient is on 3 L of oxygen. She's not receiving any IV fluids. At nighttime, she uses BiPAP, with settings of 12/5 and 50%. Laboratory data today includes a sodium 142, potassium 5.5, chlorides 110, CO2 26, anion gap 6, BUN 47, and creatinine 2.10. Glucose 115. Progress note dated 12/23/2022. 47-year-old black female, obese, with a diagnosis of acute hypoxemic respiratory failure, secondary to CHF, with fluid overload. Currently, the patient's on 2 L of oxygen. At nighttime, she uses BiPAP, with settings of 12/5 and 50%. Clinically, she is improved. White count 7, hemoglobin 9.6, hematocrit 34, with a normal platelet count. Sodium 140, potassium 4.8, chlorides 107, CO2 25, normal anion gap, UN 44, and creatinine 1.88. On today's evaluation of 12/24/2022, the patient is being seen for a follow-up. The patient has a BiPAP machine at the bedside and she is using it overnight at a pressure of 12/5 cm of water with FiO2 40%. While off the BiPAP, the patient is on 2 L of oxygen by nasal cannula. She remains on Lasix 40 mg IV every 12 hours and the patient's fluid balance is -4.4 L over the past 24 hours. She remains on IV Rocephin as an empiric antibiotic coverage. She is a 47-year-old female patient, morbidly obese along with history of CHF and hypertension and obstructive sleep apnea and the patient has not been utilizing his CPAP machine and outpatient basis. At home, she is on O2 at 3 L. She is also known to have chronic stage IV kidney disease, chronic lymphedema and previous episodes of urinary tract infection. The patient understands at 7 with a hemoglobin of 9.6 and a platelet count of 198. Creatinine is at 1.8 with a BUN of 44 and sodium level is at 140. Objective - Vital Signs Vital signs: Vital Signs Temp 97.9 F 12/24/22 08:37 Pulse 85 12/24/22 10:07 Resp 18 12/24/22 10:07 BP 135/79 12/24/22 08:37 Pulse Ox 96 12/24/22 08:37 FiO2 50 12/24/22 04:00 Intake & Output 12/23/22 12/24/22 12/24/22 18:59 06:59 18:59 Intake Total 1380 218 Output Total 2525 3275 2200 Balance -1144 Weight 169.5 kg Intake: Intake, IV Titration 100 Amount Sodium Ferric Gluconat- 100 Sucrose 125 mg In Sodium Chloride 0.9% 100 ml @ 100 mls/hr IVPB DAILY [facility] Rx#:[id number] Oral 1380 118 Output: Urine 2525 3275 2200 Uretheral (Colon) 1100 Other: Voiding Method Indwelling Catheter Indwelling Catheter Indwelling Catheter - Exam No acute distress, oriented 3. Currently on 3 L O2 nasal cannula HEENT examination is grossly unremarkable. Neck supple. Full range of motion. No adenopathy thyromegaly or neck vein distention. Cardiovascular examination reveals regular rhythm rate. S1-S2 normal. No S3 or S4. No discernible murmur noted. Heart sounds are distant. Lungs reveal scattered rhonchi and crackles. Breath sounds equal. No wheezes. Abdomen soft bowel sounds are heard. No masses or tenderness. Extremities are intact. No cyanosis or clubbing. 1+ edema is noted. Skin is without rash or lesion. Neurologic examination is brief but nonfocal. - Labs CBC & Chem 7: 12/23/22 10:55 12/23/22 07:55 Labs: Abnormal Lab Results - Last 24 Hours (Table) 12/23/22 Range/Units 10:55 Hgb 9.6 L (11.4-16.0) gm/dL MCV 79.7 L (80.0-100.0) fL MCH 22.5 L (25.0-35.0) pg MCHC 28.2 L (31.0-37.0) g/dL RDW 19.3 H (11.5-15.5) % Lymphocytes # 0.6 L (1.0-4.8) k/uL Assessment and Plan Plan: Acute on chronic hypoxic respiratory failure probably related to a combination of fluid overload and acute exacerbation of diastolic congestive heart failure. The patient is currently on 3 L of oxygen by nasal cannula. The patient is being diuresed. The patient is being supported with BiPAP overnight. Patient has a component of chronic hypoxic respiratory failure related to her morbid obesity and obesity/hypoventilation syndrome. She has obstructive sleep apnea in which she is noncompliant with her CPAP or BiPAP at home. She does wear 3 L nasal cannula at home, mostly at night. History of ventilatory dependent respiratory failure. Left upper extremity swelling. Morbid obesity. Hypertension. CAD. Chronic kidney disease stage IV. Chronic anemia. Lymphedema. History DVT. History of SVT. Nonsmoker. . Plan: Clinically stable Continues to be in negative fluid balance Continues to have signs of fluid overload and the patient remains on Lasix 40 mg every 12 hours and she is producing adequate urine output Electrolytes are stable Continue BiPAP overnight at a pressure of 12/5 cm of water and FiO2 of 40% O2 at 2 L during the day, may bring up to 3 L Monitor renal function the creatinine is up to 1.88 from yesterday Increase mobility We'll continue to follow
[2022-12-24 13:31] VITALS: BMI 58.5
--- NOTE | 2022-12-24 13:33 | P.PN ---
Subjective Progress Note Date: 12/24/22 CHF The patient is a pleasant 47-year-old [place] female patient with a past medical history significant for morbid obesity and history of congestive heart failure was admitted to the hospital with heart failure again. This time she underwent an echo which revealed cardiomyopathy with EF around 35% which has decreased compared to before. Also she was in acute renal failure. 12/22/2022 The patient was seen and evaluated this morning. She remains in failure. She is still hypoxic reaches to have bilateral lower extremities edema. She continues to be on Bumex IV and she has been diuresing very well. At this point I would recommend continue the current medical regimen. Clearly the patient sti ll hypervolemic. Continue monitor the kidney function and electrolytes. Consider optimize medical treatment for cardiomyopathy once the kidney function improved. 12/23/2022 The patient was seen this morning. She continues to be extremely hypervolemic with severe bilateral lower except his edema. She was switched into oral loop diuretics using Bumex. I believe that the patient need to be on IV diuretics at this point. We will touch base with the internal medicine service as well as nephrology service. The creatinine continues to be stable. On examination she still have severe bilateral lower except his edema was diminished breathing sounds bilaterally. 12/24 Patient's blood pressure readings remain elevated and metoprolol will be transitioned to Coreg. Patient does complain of palpitations. Heart rate has been in the 80s. Chest x-ray from her yesterday revealed cardiomegaly, r etrocardiac infiltration considered. Patient is maintained on IV Lasix per nephrology. Physical Examination Gen: This is morbid obese 47-year-old female HEENT: Head is atraumatic, normocephalic. Pupils equal, round. Sclerae is anicteric. NECK: Supple. No JVD. No lymphadenopathy. No thyromegaly. LUNGS: Scattered rhonchi. No intercostal retractions. HEART: Regular rate and rhythm. No murmur. EXTREMITIES: 1+ pedal edema. NEUROLOGICAL: Patient is awake, alert and oriented x3. Assessment Congestive heart failure related to heart failure with reduced ejection fraction Cardiomyopathy, unknown to be ischemic or nonischemic Morbid obesity Chronic renal failure Multiple comorbid conditions Plan Patient maintained on IV Lasix per nephrology Transition Lopressor to Coreg to improve blood pressure control Continue monitoring the kidney function and electrolytes Consider optimizing medical treatment for cardiomyopathy once the creatinine is stable Follow-up with the patient Nurse practitioner note has been reviewed, I agree with the documented findings and plan of care. Patient was seen and examined. Objective - Vital Signs Vital signs: Vital Signs Temp 97.9 F 12/24/22 08:37 Pulse 85 12/24/22 08:37 Resp 18 12/24/22 08:37 BP 135/79 12/24/22 08:37 Pulse Ox 96 12/24/22 08:37 FiO2 50 12/24/22 04:00 Intake & Output 12/23/22 12/24/22 12/24/22 18:59 06:59 18:59 Intake Total 1380 118 Output Total 2525 3275 Balance -1145 -3275 118 Weight 169.5 kg Intake: Oral 1380 118 Output: Urine 2525 3275 Other: Voiding Method Indwelling Catheter Indwelling Catheter - Labs CBC & Chem 7: 12/23/22 10:55 12/23/22 07:55 Labs: Abnormal Lab Results - Last 24 Hours (Table) 12/23/22 Range/Units 10:55 Hgb 9.6 L (11.4-16.0) gm/dL MCV 79.7 L (80.0-100.0) fL MCH 22.5 L (25.0-35.0) pg MCHC 28.2 L (31.0-37.0) g/dL RDW 19.3 H (11.5-15.5) % Lymphocytes # 0.6 L (1.0-4.8) k/uL
--- NOTE | 2022-12-24 13:34 | P.PN ---
Subjective Patient is seen for follow-up for chronic kidney disease. Baseline creatinine around 1.8-2 mg/dL. Patient is currently being diuresed Lasix was at 40 mg IV every 12 hours. Switch to oral Bumex for about a day and then IV Lasix was restarted Patient was complaining of increased abdominal distention and edema along with shortness of breath. Shortness of breath has improved. Patient has an indwelling Colon catheter Objective - Vital Signs Vital signs: Vital Signs Temp 97.9 F 12/24/22 08:37 Pulse 80 12/24/22 11:40 Resp 18 12/24/22 11:40 BP 159/100 12/24/22 11:40 Pulse Ox 96 12/24/22 11:40 FiO2 50 12/24/22 04:00 Intake & Output 12/23/22 12/24/22 12/24/22 18:59 06:59 18:59 Intake Total 1380 336 Output Total 2525 3275 2900 Balance -2950 -4641 -9344 Weight 169.5 kg Intake: Intake, IV Titration 100 Amount Sodium Ferric Gluconat- 100 Sucrose 125 mg In Sodium Chloride 0.9% 100 ml @ 100 mls/hr IVPB DAILY [facility] Rx#:[id number] Oral 1380 236 Output: Urine 2525 3275 2900 Uretheral (Colon) 1100 Other: Voiding Method Indwelling Catheter Indwelling Catheter Indwelling Catheter - Exam Patient is awake, comfortable, no acute distress Examination of the heart S1 and S2 Examination of the lungs bilateral breath sounds are heard. Distant due to body habitus Abdomen is soft morbidly obese Examination lower extremity shows chronic edema - Labs CBC & Chem 7: 12/23/22 10:55 12/23/22 07:55 Assessment and Plan Assessment: 1. Chronic kidney disease stage IIIB secondary to cardiorenal syndrome. Baseline creatinine near 2. Renal function close to baseline. 2. Acute on chronic diastolic CHF. 3. Volume overload. 4. Hypertension with chronic kidney disease. 5. Anemia of chronic kidney disease. Iron deficiency noted. Plan: Continue with IV Lasix Increased to every 8 hours Repeat labs in a.m. Avoid hypotension
[2022-12-24] MEDS: PSYLLIUM HUSK 100% 6 GM PACKET PO SCH ×2 (17:27→23:21)
[2022-12-25] MEDS: hydrALAZINE HCL 20 MG/ML 1 ML VIAL IVP PRN (04:20)
[2022-12-25] MEDS: carvediloL 12.5 MG TAB PO SCH ×2 (06:27→17:07)
[2022-12-25] MEDS: PANTOPRAZOLE 40 MG TABLET PO SCH (06:28)
[2022-12-25] MEDS: ACETAMINOPHEN TAB 325 MG TAB PO PRN (06:28)
--- NOTE | 2022-12-25 07:12 | PN ---
PROGRESS NOTE DATE OF SERVICE: 12/24/2022 CHIEF COMPLAINT: Chronic congestive heart failure. HISTORY OF PRESENT ILLNESS: This lady has improved slightly, but she does not feel that she is able to go home at this point. PHYSICAL EXAMINATION: CHEST: She still has scattered rales and rhonchi. CARDIAC: Unchanged. ABDOMEN: Soft, nontender. IMPRESSION: 1. Chronic congestive heart failure. 2. Cardiomyopathy. 3. Morbid obesity. 4. Pickwickian syndrome. PLAN: Discharge planning will be requested. It is unclear if and when she would be able to go home, or where else she might go. MMODL / IJN: [id number] /
[2022-12-25 08:31] LABS: Calcium 9.1 mg/dL (8.4-10.2); Potassium 4.2 mmol/L (3.5-5.1)
[2022-12-25] MEDS ORDERED: carvediloL 12.5 MG TAB PO STA (08:40)
[2022-12-25] MEDS: MAGNESIUM OXIDE 400 MG TAB PO SCH ×2 (08:52→21:17)
[2022-12-25] MEDS: cloNIDine HCL 0.1 MG TAB PO SCH ×3 (08:52→21:17)
[2022-12-25] MEDS: FUROSEMIDE 10 MG/ML 4 ML VIAL IV SCH ×2 (08:52→17:07)
[2022-12-25] MEDS: NYSTATIN 100,000 UNIT/GM POWD 15 GM TOPICAL SCH ×2 (08:52→21:18)
[2022-12-25] MEDS: ASPIRIN 81 MG PO SCH (08:52)
[2022-12-25] MEDS: HEPARIN SODIUM,PORCINE/PF 5,000 UNIT/0.5 ML SYRINGE SQ SCH ×2 (08:52→17:08)
[2022-12-25] MEDS: FOLIC ACID 1 MG TAB PO SCH (08:52)
[2022-12-25] MEDS: PSYLLIUM HUSK 100% 6 GM PACKET PO SCH ×3 (08:54→21:18)
--- NOTE | 2022-12-25 10:16 | P.PN ---
Subjective Progress Note Date: 12/25/22 I'm seeing this patient in new consultation today 12/20/2022 for progressive shortness of breath. This is a 47-year-old -[place] female with past medical history of CHF, hypertension, morbid obesity, obstructive sleep apnea without CPAP, home O2 3 L nasal cannula mostly at night, previous ventilator dependent respiratory failure, hypertension, chronic kidney disease stage IV, lymphedema, anemia, urinary tract infections. Patient is currently resting in bed, drowsy but arousable and oriented, on 6 L nasal cannula. She is somewhat a poor historian, but states that her shortness breath started approximately 3 days ago. She has associated lower extremity swelling which is 2-3+ bilaterally . Patient denies cough, fever, chest pain. Denies sick contacts. She has swelling of the left upper extremity, she is unable to tell me when this started. Chest x-ray performed on admission showed cardiomegaly and pulmonary edema that could be related to heart failure versus ARDS. A follow-up enhanced abdomen pelvis CT redemonstrated the patient's cardiomegaly with bibasilar infiltrates and atelectasis. Most recent echocardiogram performed on 07/05/2022 showed a preserved ejection fraction of 55-60% and overall limited views due to patient's body habitus. ProBNP was elevated at 12,500. She is receiving Lasix 80 mg IV every 12 hours and spironolactone daily. Patient's fluid balance is -4 L. VBG done on arrival showed a pH of 7.3, pCO2 52. Patient's CBC on arrival showed a WBC count of 8.8, hemoglobin 9.7, hematocrit 34.1, platelets 262,000. BMP on admission showed a sodium 139, potassium 4.5, chloride 108, serum CO2 26, BUN 42, creatinine chronically high at 2, glucose 108. Troponin was mildly elevated at 0.057. No obvious evidence of ischemic changes on ECG. Pro-calcitonin level was mildly elevated at 0.27 she has received empiric ceftriaxone and azithromycin. She is afebrile. Vital signs are stable at this time. Progress note dated 12/21/2022. 47-year-old black female who was admitted with a diagnosis of shortness of breath, secondary to CHF, although the patient does have a history of morbid obesity, hypertension, sleep apnea, and chronic kidney disease. Currently, the patient appears to be doing better. She is using the BiPAP at nighttime, with settings of 12/5 and 50%. Today when we saw her, she was on 2 L. She's not receiving any IV fluids. No new labs today other than a sodium 141, potassium 4.3, chlorides 107, CO2 29, BUN 45, and creatinine 2.26. Pro-calcitonin level is 0.27. Progress note dated 12/22/2022. 47-year-old black female was admitted with a diagnosis of acute hypoxemic respiratory chronic secondary to CHF. Currently, the patient is on 3 L of oxygen. She's not receiving any IV fluids. At nighttime, she uses BiPAP, with settings of 12/5 and 50%. Laboratory data today includes a sodium 142, potassium 5.5, chlorides 110, CO2 26, anion gap 6, BUN 47, and creatinine 2.10. Glucose 115. Progress note dated 12/23/2022. 47-year-old black female, obese, with a diagnosis of acute hypoxemic respiratory failure, secondary to CHF, with fluid overload. Currently, the patient's on 2 L of oxygen. At nighttime, she uses BiPAP, with settings of 12/5 and 50%. Clinically, she is improved. White count 7, hemoglobin 9.6, hematocrit 34, with a normal platelet count. Sodium 140, potassium 4.8, chlorides 107, CO2 25, normal anion gap, UN 44, and creatinine 1.88. On today's evaluation of 12/24/2022, the patient is being seen for a follow-up. The patient has a BiPAP machine at the bedside and she is using it overnight at a pressure of 12/5 cm of water with FiO2 40%. While off the BiPAP, the patient is on 2 L of oxygen by nasal cannula. She remains on Lasix 40 mg IV every 12 hours and the patient's fluid balance is -4.4 L over the past 24 hours. She remains on IV Rocephin as an empiric antibiotic coverage. She is a 47-year-old female patient, morbidly obese along with history of CHF and hypertension and obstructive sleep apnea and the patient has not been utilizing his CPAP machine and outpatient basis. At home, she is on O2 at 3 L. She is also known to have chronic stage IV kidney disease, chronic lymphedema and previous episodes of urinary tract infection. The patient understands at 7 with a hemoglobin of 9.6 and a platelet count of 198. Creatinine is at 1.8 with a BUN of 44 and sodium level is at 140. 12/17/2022, the patient is on 2 L of oxygen by nasal cannula. She is laying comfortably in bed. Overnight, she is using the BiPAP at a pressure of 12/5 cm of water with an FiO2 of 40%. She is hemodynamically stable. She is still diuresing well. The fluid balance over the past 24 hours has been -8.6 L and the patient is aggressively diuresing. Creatinine is down to 1.6 with a BUN of 35 and a sodium level is at 140 and a potassium level is at 4.2. No other significant events. The patient remains on diuretics and she is on Lasix at a dose of 40 mg IV every 8 hours. Objective - Vital Signs Vital signs: Vital Signs Temp 98.1 F 12/25/22 04:15 Pulse 81 12/25/22 05:45 Resp 18 12/25/22 04:15 BP 146/88 12/25/22 05:45 Pulse Ox 99 12/25/22 01:25 FiO2 50 12/25/22 04:32 Intake & Output 12/24/22 12/25/22 12/25/22 18:59 06:59 18:59 Intake Total 454 180 Output Total 3620 5450 850 Balance -3166 -5450 -670 Weight 169.5 kg 206.5 kg Intake: Intake, IV Titration 100 Amount Sodium Ferric Gluconat- 100 Sucrose 125 mg In Sodium Chloride 0.9% 100 ml @ 100 mls/hr IVPB DAILY [facility] Rx#:[id number] Oral 354 180 Output: Urine 3620 5450 850 Uretheral (Colon) 1100 Other: Voiding Method Indwelling Catheter Indwelling Catheter # Voids 1 # Bowel Movements 1 1 - Exam No acute distress, oriented 3. Currently on 3 L O2 nasal cannula HEENT examination is grossly unremarkable. Neck supple. Full range of motion. No adenopathy thyromegaly or neck vein distention. Cardiovascular examination reveals regular rhythm rate. S1-S2 normal. No S3 or S4. No discernible murmur noted. Heart sounds are distant. Lungs reveal scattered rhonchi and crackles. Breath sounds equal. No wheezes. Abdomen soft bowel sounds are heard. No masses or tenderness. Extremities are intact. No cyanosis or clubbing. 1+ edema is noted. Skin is without rash or lesion. Neurologic examination is brief but nonfocal. - Labs CBC & Chem 7: 12/23/22 10:55 12/25/22 07:49 Labs: Abnormal Lab Results - Last 24 Hours (Table) 12/25/22 Range/Units 07:49 Carbon Dioxide 35 H (22-30) mmol/L BUN 35 H (7-17) mg/dL Creatinine 1.68 H (0.52-1.04) mg/dL Glucose 106 H (74-99) mg/dL Assessment and Plan Plan: Acute on chronic hypoxic respiratory failure probably related to a combination of fluid overload and acute exacerbation of diastolic congestive heart failure. The patient is currently on 3 L of oxygen by nasal cannula. The patient is being diuresed. The patient is being supported with BiPAP overnight. Patient has a component of chronic hypoxic respiratory failure related to her morbid obesity and obesity/hypoventilation syndrome. She has obstructive sleep apnea in which she is noncompliant with her CPAP or BiPAP at home. She does wear 3 L nasal cannula at home, mostly at night. Acute on top of chronic kidney injury, improving and the creatinine is down to 1.68 History of ventilatory dependent respiratory failure. Left upper extremity swelling. Morbid obesity. Hypertension. CAD. Chronic kidney disease stage IV. Chronic anemia. Lymphedema. History DVT. History of SVT. Nonsmoker. . Plan: Continue Lasix 40 mg every 8 hours and the patient has been in significant negative fluid balance Clinically stable Continues to be in negative fluid balance Continues to have signs of fluid overload and the patient remains on Lasix 40 mg every 12 hours and she is producing adequate urine output Electrolytes are stable Continue BiPAP overnight at a pressure of 12/5 cm of water and FiO2 of 40% O2 at 2 L during the day Monitor renal function the creatinine is down to 1.68 Increase mobility We'll continue to follow
--- NOTE | 2022-12-25 11:28 | P.PN ---
Subjective Progress Note Date: 12/25/22 CHF The patient is a pleasant 47-year-old [place]ian female patient with a past medical history significant for morbid obesity and history of congestive heart failure was admitted to the hospital with heart failure again. This time she underwent an echo which revealed cardiomyopathy with EF around 35% which has decreased compared to before. Also she was in acute renal failure. 12/22/2022 The patient was seen and evaluated this morning. She remains in failure. She is still hypoxic reaches to have bilateral lower extremities edema. She continues to be on Bumex IV and she has been diuresing very well. At this point I would recommend continue the current medical regimen. Clearly the patient sti ll hypervolemic. Continue monitor the kidney function and electrolytes. Consider optimize medical treatment for cardiomyopathy once the kidney function improved. 12/23/2022 The patient was seen this morning. She continues to be extremely hypervolemic with severe bilateral lower except his edema. She was switched into oral loop diuretics using Bumex. I believe that the patient need to be on IV diuretics at this point. We will touch base with the internal medicine service as well as nephrology service. The creatinine continues to be stable. On examination she still have severe bilateral lower except his edema was diminished breathing sounds bilaterally. 12/24 Patient's blood pressure readings remain elevated and metoprolol will be transitioned to Coreg. Patient does complain of palpitations. Heart rate has been in the 80s. Chest x-ray from her yesterday revealed cardiomegaly, r etrocardiac infiltration considered. Patient is maintained on IV Lasix per nephrology. 12/25 Patient denies any chest pain or shortness of breath. She is in a sinus rhythm on telemetry. Blood pressure readings are elevated at 146/88. Heart rate is running in the 80s and 90s. Pulse ox 95% on 2 L. Repeat blood work reveals sodium 140, potassium 4.2, BUN 35 and creatinine 1.68 which is improvement of her renal function. Physical Examination Gen: This is morbid obese 47-year-old female resting in bed appears to be comfortable HEENT: Head is atraumatic, normocephalic. Pupils equal, round. Sclerae is anicteric. NECK: Supple. No JVD. No lymphadenopathy. No thyromegaly. LUNGS: Scattered rhonchi. No intercostal retractions. HEART: Regular rate and rhythm. No murmur. EXTREMITIES: 1+ pedal edema. NEUROLOGICAL: Patient is awake, alert and oriented x3. Assessment Congestive heart failure related to heart failure with reduced ejection fraction Cardiomyopathy, unknown to be ischemic or nonischemic Morbid obesity Chronic renal failure Multiple comorbid conditions Plan Patient maintained on IV Lasix per nephrology Increase Coreg to 25 mg twice daily with eventual cold to continue to increase as needed and wean off clonidine Continue monitoring the kidney function and electrolytes Consider optimizing medical treatment for cardiomyopathy once the creatinine is stable Follow-up with the patient Nurse practitioner note has been reviewed, I agree with the documented findings and plan of care. Patient was seen and examined. Objective - Vital Signs Vital signs: Vital Signs Temp 98.1 F 12/25/22 04:15 Pulse 81 12/25/22 05:45 Resp 18 12/25/22 04:15 BP 146/88 12/25/22 05:45 Pulse Ox 99 12/25/22 01:25 FiO2 50 12/25/22 04:32 Intake & Output 12/24/22 12/25/22 12/25/22 18:59 06:59 18:59 Intake Total 454 180 Output Total 3620 5450 Balance -3166 -5450 180 Weight 169.5 kg 206.5 kg Intake: Intake, IV Titration 100 Amount Sodium Ferric Gluconat- 100 Sucrose 125 mg In Sodium Chloride 0.9% 100 ml @ 100 mls/hr IVPB DAILY [facility] Rx#:[id number] Oral 354 180 Output: Urine 3620 5450 Uretheral (Colon) 1100 Other: Voiding Method Indwelling Catheter Indwelling Catheter # Bowel Movements 1 1 - Labs CBC & Chem 7: 12/23/22 10:55 12/25/22 07:49 Labs: Abnormal Lab Results - Last 24 Hours (Table) 12/25/22 Range/Units 07:49 Carbon Dioxide 35 H (22-30) mmol/L BUN 35 H (7-17) mg/dL Creatinine 1.68 H (0.52-1.04) mg/dL Glucose 106 H (74-99) mg/dL
--- NOTE | 2022-12-25 11:43 | P.PN ---
Subjective Patient is seen for follow-up for chronic kidney disease. Baseline creatinine around 1.8-2 mg/dL. Patient is currently being diuresed Dose of Lasix has been increased and patient has responded well with improving edema and increased urine output. 24 hour urine output documented at 4 L. Objective - Vital Signs Vital signs: Vital Signs Temp 98.4 F 12/25/22 08:00 Pulse 92 12/25/22 08:00 Resp 18 12/25/22 08:00 BP 125/64 12/25/22 08:00 Pulse Ox 95 12/25/22 08:00 FiO2 50 12/25/22 04:32 Intake & Output 12/24/22 12/25/22 12/25/22 18:59 06:59 18:59 Intake Total 454 180 Output Total 3620 5450 1500 Balance -7552 -9811 -1320 Weight 169.5 kg 206.5 kg Intake: Intake, IV Titration 100 Amount Sodium Ferric Gluconat- 100 Sucrose 125 mg In Sodium Chloride 0.9% 100 ml @ 100 mls/hr IVPB DAILY [facility] Rx#:[id number] Oral 354 180 Output: Urine 3620 5450 1500 Uretheral (Colon) 1100 Other: Voiding Method Indwelling Catheter Indwelling Catheter Indwelling Catheter # Voids 1 # Bowel Movements 1 1 - Exam Patient is awake, comfortable, no acute distress Examination of the heart S1 and S2 Examination of the lungs bilateral breath sounds are heard. Distant due to body habitus Abdomen is soft morbidly obese Examination lower extremity shows chronic edema PATIENT CARE TECHNICIAN exam grossly intact - Labs CBC & Chem 7: 12/23/22 10:55 12/25/22 07:49 Labs: Abnormal Lab Results - Last 24 Hours (Table) 12/25/22 Range/Units 07:49 Carbon Dioxide 35 H (22-30) mmol/L BUN 35 H (7-17) mg/dL Creatinine 1.68 H (0.52-1.04) mg/dL Glucose 106 H (74-99) mg/dL Assessment and Plan Assessment: 1. Chronic kidney disease stage IIIB secondary to cardiorenal syndrome. Baseline creatinine near 2. Renal function close to baseline. 2. Acute on chronic diastolic CHF. 3. Volume overload. 4. Hypertension with chronic kidney disease. 5. Anemia of chronic kidney disease. Iron deficiency noted. Plan: Continue with IV Lasix Repeat labs in a.m.
--- NOTE | 2022-12-25 21:42 | PN ---
PROGRESS NOTE DATE OF SERVICE: 12/25/2022 CHIEF COMPLAINT: Congestive heart failure. HISTORY OF PRESENT ILLNESS: This lady continues to be dyspneic. She does not want to go home. There is really no other option. PHYSICAL EXAMINATION: CHEST: She is tachypneic. Breath sounds are heard bilaterally. There are occasional rales and occasional wheezing. CARDIAC: Unchanged. ABDOMEN: Soft, nontender. IMPRESSION: 1. Chronic congestive heart failure. 2. Acute congestive heart failure. 3. Cardiomyopathy. 4. Morbid obesity. PLAN: Try to discharge. I would like to get her home and then get her started on a GLP1 to see if there would be any chance of her weight going down. MMODL / IJN: [id number] /
[2022-12-26] MEDS: HEPARIN SODIUM,PORCINE/PF 5,000 UNIT/0.5 ML SYRINGE SQ SCH ×3 (00:27→16:51)
[2022-12-26] MEDS: FUROSEMIDE 10 MG/ML 4 ML VIAL IV SCH ×3 (00:27→16:51)
[2022-12-26] MEDS: carvediloL 12.5 MG TAB PO SCH ×2 (06:22→16:51)
[2022-12-26] MEDS: PANTOPRAZOLE 40 MG TABLET PO SCH (06:24)
[2022-12-26 08:36] LABS: Calcium 9.1 mg/dL (8.4-10.2); Potassium 4.4 mmol/L (3.5-5.1)
[2022-12-26 09:00] LABS: Anisocytosis Moderate; Basophils % (A) 0 %; Eosinophils # (A) 0.1 k/uL (0-0.7); Eosinophils % (A) 2 %; HCT 35.1 % (34.0-46.0); HGB 9.7 gm/dL (11.4-16.0); Hypochromasia Marked; Lymphocytes # (A) 0.5 k/uL (1.0-4.8); Lymphocytes % (A) 13 %; MCH 22.5 pg (25.0-35.0); MCHC 27.6 g/dL (31.0-37.0); MCV 81.6 fL (80.0-100.0); Mean Platelet Volume 8.9; Microcytosis Slight; Monocytes # (A) 0.4 k/uL (0-1.0); Monocytes % (A) 9 %; Neutrophils % (A) 73 %; Platelet Count 158 k/uL (150-450); Poikilocytosis Slight; RDW 20.1 % (11.5-15.5); WBC 4.1 k/uL (3.8-10.6)
[2022-12-26] MEDS: cloNIDine HCL 0.1 MG TAB PO SCH ×3 (09:11→20:56)
[2022-12-26] MEDS: ASPIRIN 81 MG PO SCH (09:11)
[2022-12-26] MEDS: MAGNESIUM OXIDE 400 MG TAB PO SCH ×2 (09:12→20:56)
[2022-12-26] MEDS: FOLIC ACID 1 MG TAB PO SCH (09:12)
[2022-12-26] MEDS: PSYLLIUM HUSK 100% 6 GM PACKET PO SCH ×3 (09:12→20:52)
[2022-12-26] MEDS: NYSTATIN 100,000 UNIT/GM POWD 15 GM TOPICAL SCH ×2 (09:12→20:55)
[2022-12-26] MEDS ORDERED: carvediloL 12.5 MG TAB PO STA (10:30)
--- NOTE | 2022-12-26 10:49 | P.PN ---
Subjective Patient is seen for follow-up for chronic kidney disease. Baseline creatinine around 1.8-2 mg/dL. Patient is currently being diuresed Dose of Lasix has been increased and patient has responded well with improving edema and increased urine output. 24 hour urine output documented at 7.3 L. Objective - Vital Signs Vital signs: Vital Signs Temp 98.2 F 12/26/22 08:00 Pulse 84 12/26/22 08:00 Resp 16 12/26/22 08:00 BP 145/82 12/26/22 08:00 Pulse Ox 97 12/26/22 08:37 FiO2 50 12/26/22 04:30 Intake & Output 12/25/22 12/26/22 12/26/22 18:59 06:59 18:59 Intake Total 1220 180 Output Total 3500 3850 1700 Balance -2280 -3850 -1520 Weight 199.5 kg Intake: Oral 1220 180 Output: Urine 3500 3850 1700 Uretheral (Colon) 3100 Other: Voiding Method Indwelling Catheter Indwelling Catheter Indwelling Catheter # Voids 1 # Bowel Movements 1 - Exam Patient is awake, comfortable, no acute distress Examination of the heart S1 and S2 Examination of the lungs bilateral breath sounds are heard. Distant due to body habitus Abdomen is soft morbidly obese Examination lower extremity shows chronic edema SPECIALIZED LANGUAGE INSTRUCTOR exam grossly intact - Labs CBC & Chem 7: 12/26/22 07:21 12/26/22 07:21 Labs: Abnormal Lab Results - Last 24 Hours (Table) 12/26/22 12/26/22 Range/Units 07:21 07:21 Hgb 9.7 L (11.4-16.0) gm/dL MCH 22.5 L (25.0-35.0) pg MCHC 27.6 L (31.0-37.0) g/dL RDW 20.1 H (11.5-15.5) % Lymphocytes # 0.5 L (1.0-4.8) k/uL Chloride 97 L (98-107) mmol/L Carbon Dioxide 39 H (22-30) mmol/L BUN 36 H (7-17) mg/dL Creatinine 1.80 H (0.52-1.04) mg/dL Assessment and Plan Assessment: 1. Chronic kidney disease stage IIIB secondary to cardiorenal syndrome. Baseline creatinine near 2. Renal function close to baseline. 2. Acute on chronic diastolic CHF. 3. Volume overload. 4. Hypertension with chronic kidney disease. 5. Anemia of chronic kidney disease. Iron deficiency noted. Plan: Continue with IV Lasix Repeat labs in a.m.
--- NOTE | 2022-12-26 10:50 | P.PN ---
Subjective Progress Note Date: 12/26/22 I'm seeing this patient in new consultation today 12/20/2022 for progressive shortness of breath. This is a 47-year-old -[place] female with past medical history of CHF, hypertension, morbid obesity, obstructive sleep apnea without CPAP, home O2 3 L nasal cannula mostly at night, previous ventilator dependent respiratory failure, hypertension, chronic kidney disease stage IV, lymphedema, anemia, urinary tract infections. Patient is currently resting in bed, drowsy but arousable and oriented, on 6 L nasal cannula. She is somewhat a poor historian, but states that her shortness breath started approximately 3 days ago. She has associated lower extremity swelling which is 2-3+ bilaterally . Patient denies cough, fever, chest pain. Denies sick contacts. She has swelling of the left upper extremity, she is unable to tell me when this started. Chest x-ray performed on admission showed cardiomegaly and pulmonary edema that could be related to heart failure versus ARDS. A follow-up enhanced abdomen pelvis CT redemonstrated the patient's cardiomegaly with bibasilar infiltrates and atelectasis. Most recent echocardiogram performed on 07/05/2022 showed a preserved ejection fraction of 55-60% and overall limited views due to patient's body habitus. ProBNP was elevated at 12,500. She is receiving Lasix 80 mg IV every 12 hours and spironolactone daily. Patient's fluid balance is -4 L. VBG done on arrival showed a pH of 7.3, pCO2 52. Patient's CBC on arrival showed a WBC count of 8.8, hemoglobin 9.7, hematocrit 34.1, platelets 262,000. BMP on admission showed a sodium 139, potassium 4.5, chloride 108, serum CO2 26, BUN 42, creatinine chronically high at 2, glucose 108. Troponin was mildly elevated at 0.057. No obvious evidence of ischemic changes on ECG. Pro-calcitonin level was mildly elevated at 0.27 she has received empiric ceftriaxone and azithromycin. She is afebrile. Vital signs are stable at this time. Progress note dated 12/21/2022. 47-year-old black female who was admitted with a diagnosis of shortness of breath, secondary to CHF, although the patient does have a history of morbid obesity, hypertension, sleep apnea, and chronic kidney disease. Currently, the patient appears to be doing better. She is using the BiPAP at nighttime, with settings of 12/5 and 50%. Today when we saw her, she was on 2 L. She's not receiving any IV fluids. No new labs today other than a sodium 141, potassium 4.3, chlorides 107, CO2 29, BUN 45, and creatinine 2.26. Pro-calcitonin level is 0.27. Progress note dated 12/22/2022. 47-year-old black female was admitted with a diagnosis of acute hypoxemic respiratory chronic secondary to CHF. Currently, the patient is on 3 L of oxygen. She's not receiving any IV fluids. At nighttime, she uses BiPAP, with settings of 12/5 and 50%. Laboratory data today includes a sodium 142, potassium 5.5, chlorides 110, CO2 26, anion gap 6, BUN 47, and creatinine 2.10. Glucose 115. Progress note dated 12/23/2022. 47-year-old black female, obese, with a diagnosis of acute hypoxemic respiratory failure, secondary to CHF, with fluid overload. Currently, the patient's on 2 L of oxygen. At nighttime, she uses BiPAP, with settings of 12/5 and 50%. Clinically, she is improved. White count 7, hemoglobin 9.6, hematocrit 34, with a normal platelet count. Sodium 140, potassium 4.8, chlorides 107, CO2 25, normal anion gap, UN 44, and creatinine 1.88. On today's evaluation of 12/24/2022, the patient is being seen for a follow-up. The patient has a BiPAP machine at the bedside and she is using it overnight at a pressure of 12/5 cm of water with FiO2 40%. While off the BiPAP, the patient is on 2 L of oxygen by nasal cannula. She remains on Lasix 40 mg IV every 12 hours and the patient's fluid balance is -4.4 L over the past 24 hours. She remains on IV Rocephin as an empiric antibiotic coverage. She is a 47-year-old female patient, morbidly obese along with history of CHF and hypertension and obstructive sleep apnea and the patient has not been utilizing his CPAP machine and outpatient basis. At home, she is on O2 at 3 L. She is also known to have chronic stage IV kidney disease, chronic lymphedema and previous episodes of urinary tract infection. The patient understands at 7 with a hemoglobin of 9.6 and a platelet count of 198. Creatinine is at 1.8 with a BUN of 44 and sodium level is at 140. 12/17/2022, the patient is on 2 L of oxygen by nasal cannula. She is laying comfortably in bed. Overnight, she is using the BiPAP at a pressure of 12/5 cm of water with an FiO2 of 40%. She is hemodynamically stable. She is still diuresing well. The fluid balance over the past 24 hours has been -8.6 L and the patient is aggressively diuresing. Creatinine is down to 1.6 with a BUN of 35 and a sodium level is at 140 and a potassium level is at 4.2. No other significant events. The patient remains on diuretics and she is on Lasix at a dose of 40 mg IV every 8 hours. On today's evaluation of 2022, the patient is being seen for a follow-up. The patient remains on IV Lasix. The patient remains in negative fluid balance. BUN is at 36 with a creatinine of 1.8 and sodium levels of 138. There was positive for 0.4 with a hemoglobin of 9.7. The patient remains on 3 L O2 nasal cannula with a pulse ox 97%. The patient is utilizing BiPAP overnight. No other significant issues otherwise for now.Fluid balance over the past 24 hours has been -8.6 L and the patient is another 6.1 L negative since yesterday. Objective - Vital Signs Vital signs: Vital Signs Temp 98.2 F 12/26/22 08:00 Pulse 84 12/26/22 08:00 Resp 16 12/26/22 08:00 BP 145/82 12/26/22 08:00 Pulse Ox 97 12/26/22 08:37 FiO2 50 12/26/22 04:30 Intake & Output 12/25/22 12/26/22 12/26/22 18:59 06:59 18:59 Intake Total 1220 180 Output Total 3500 3850 1700 Balance -2280 -3850 -1520 Weight 199.5 kg Intake: Oral 1220 180 Output: Urine 3500 3850 1700 Uretheral (Colon) 3100 Other: Voiding Method Indwelling Catheter Indwelling Catheter Indwelling Catheter # Voids 1 # Bowel Movements 1 - Exam No acute distress, oriented 3. Currently on 3 L O2 nasal cannula HEENT examination is grossly unremarkable. Neck supple. Full range of motion. No adenopathy thyromegaly or neck vein distention. Cardiovascular examination reveals regular rhythm rate. S1-S2 normal. No S3 or S4. No discernible murmur noted. Heart sounds are distant. Lungs reveal scattered rhonchi and crackles. Breath sounds equal. No wheezes. Abdomen soft bowel sounds are heard. No masses or tenderness. Extremities are intact. No cyanosis or clubbing. 1+ edema is noted. Skin is without rash or lesion. Neurologic examination is brief but nonfocal. - Labs CBC & Chem 7: 12/26/22 07:21 12/26/22 07:21 Labs: Abnormal Lab Results - Last 24 Hours (Table) 12/26/22 12/26/22 Range/Units 07:21 07:21 Hgb 9.7 L (11.4-16.0) gm/dL MCH 22.5 L (25.0-35.0) pg MCHC 27.6 L (31.0-37.0) g/dL RDW 20.1 H (11.5-15.5) % Lymphocytes # 0.5 L (1.0-4.8) k/uL Chloride 97 L (98-107) mmol/L Carbon Dioxide 39 H (22-30) mmol/L BUN 36 H (7-17) mg/dL Creatinine 1.80 H (0.52-1.04) mg/dL Assessment and Plan Plan: Acute on chronic hypoxic respiratory failure probably related to a combination of fluid overload and acute exacerbation of diastolic congestive heart failure. The patient is currently on 3 L of oxygen by nasal cannula. The patient is being diuresed. The patient is being supported with BiPAP overnight. Condition is stable and essentially improving as the patient is being diuresed on a regular basis and she has been in negative fluid balance and she's esponding to diuretics Patient has a component of chronic hypoxic respiratory failure related to her morbid obesity and obesity/hypoventilation syndrome. She has obstructive sleep apnea in which she is noncompliant with her CPAP or BiPAP at home. She does we ar 3 L nasal cannula at home, mostly at night. Acute on top of chronic kidney injury, improving and the creatinine is 1.8 History of ventilatory dependent respiratory failure. Left upper extremity swelling. Morbid obesity. Hypertension. CAD. Chronic kidney disease stage IV. Chronic anemia. Lymphedema. History DVT. History of SVT. Nonsmoker. . Plan: Continue Lasix 40 mg every 8 hours and the patient has been in significant negative fluid balance Renal function is stable and the creatinine is at 1.8 The patient has had intolerance to 6 L negative fluid balance over the next 24 hours Clinically stable Continues to be in negative fluid balance Continues to have signs of fluid overload and the patient remains on Lasix 40 mg every 12 hours and she is producing adequate urine output Electrolytes are stable Continue BiPAP overnight at a pressure of 12/5 cm of water and FiO2 of 40% O2 at 2 L during the day Monitor renal function the creatinine is down to 1.8 We'll continue to follow
--- NOTE | 2022-12-26 11:28 | P.PN ---
Subjective Progress Note Date: 12/26/22 CHF The patient is a pleasant 47-year-old [place] female patient with a past medical history significant for morbid obesity and history of congestive heart failure was admitted to the hospital with heart failure again. This time she underwent an echo which revealed cardiomyopathy with EF around 35% which has decreased compared to before. Also she was in acute renal failure. 12/22/2022 The patient was seen and evaluated this morning. She remains in failure. She is still hypoxic reaches to have bilateral lower extremities edema. She continues to be on Bumex IV and she has been diuresing very well. At this point I would recommend continue the current medical regimen. Clearly the patient sti ll hypervolemic. Continue monitor the kidney function and electrolytes. Consider optimize medical treatment for cardiomyopathy once the kidney function improved. 12/23/2022 The patient was seen this morning. She continues to be extremely hypervolemic with severe bilateral lower except his edema. She was switched into oral loop diuretics using Bumex. I believe that the patient need to be on IV diuretics at this point. We will touch base with the internal medicine service as well as nephrology service. The creatinine continues to be stable. On examination she still have severe bilateral lower except his edema was diminished breathing sounds bilaterally. 12/24 Patient's blood pressure readings remain elevated and metoprolol will be transitioned to Coreg. Patient does complain of palpitations. Heart rate has been in the 80s. Chest x-ray from her yesterday revealed cardiomegaly, r etrocardiac infiltration considered. Patient is maintained on IV Lasix per nephrology. 12/25 Patient denies any chest pain or shortness of breath. She is in a sinus rhythm on telemetry. Blood pressure readings are elevated at 146/88. Heart rate is running in the 80s and 90s. Pulse ox 95% on 2 L. Repeat blood work reveals sodium 140, potassium 4.2, BUN 35 and creatinine 1.68 which is improvement of her renal function. 12/26 Patient denies having any chest pain or shortness of breath. She remains in sinus rhythm in the 60s 80s. Blood pressure remains elevated despite changes made yesterday at 145/82 and 172/84. We'll plan to make further adjustments to her blood pressure medications today. Hemoglobin is 9.7. Potassium 4.4, BUN 36 and creatinine 1.8. Physical Examination Gen: This is morbid obese 47-year-old female resting in bed appears to be comfortable HEENT: Head is atraumatic, normocephalic. Pupils equal, round. Sclerae is anicteric. NECK: Supple. No JVD. No lymphadenopathy. No thyromegaly. LUNGS: Scattered rhonchi. No intercostal retractions. HEART: Regular rate and rhythm. No murmur. EXTREMITIES: 1+ pedal edema. NEUROLOGICAL: Patient is awake, alert and oriented x3. Assessment Congestive heart failure related to heart failure with reduced ejection fraction Cardiomyopathy, unknown to be ischemic or nonischemic Morbid obesity Chronic renal failure Multiple comorbid conditions Plan Patient maintained on IV Lasix per nephrology Increase Coreg to 50 mg twice daily and Procardia added 60 mg at noon with plan to eventually wean off clonidine Continue monitoring the kidney function and electrolytes Consider optimizing medical treatment for cardiomyopathy once the creatinine is stable Follow-up with the patient Nurse practitioner note has been reviewed, I agree with the documented findings and plan of care. Patient was seen and examined. Objective - Vital Signs Vital signs: Vital Signs Temp 98.2 F 12/26/22 08:00 Pulse 84 12/26/22 08:00 Resp 16 12/26/22 08:00 BP 145/82 12/26/22 08:00 Pulse Ox 97 12/26/22 08:37 FiO2 50 12/26/22 04:30 Intake & Output 12/25/22 12/26/22 12/26/22 18:59 06:59 18:59 Intake Total 1220 180 Output Total 3500 3850 1700 Balance -2280 -3850 -1520 Weight 199.5 kg Intake: Oral 1220 180 Output: Urine 3500 3850 1700 Uretheral (Colon) 3100 Other: Voiding Method Indwelling Catheter Indwelling Catheter Indwelling Catheter # Voids 1 # Bowel Movements 1 - Labs CBC & Chem 7: 12/26/22 07:21 12/26/22 07:21 Labs: Abnormal Lab Results - Last 24 Hours (Table) 12/26/22 12/26/22 Range/Units 07:21 07:21 Hgb 9.7 L (11.4-16.0) gm/dL MCH 22.5 L (25.0-35.0) pg MCHC 27.6 L (31.0-37.0) g/dL RDW 20.1 H (11.5-15.5) % Lymphocytes # 0.5 L (1.0-4.8) k/uL Chloride 97 L (98-107) mmol/L Carbon Dioxide 39 H (22-30) mmol/L BUN 36 H (7-17) mg/dL Creatinine 1.80 H (0.52-1.04) mg/dL
[2022-12-26] MEDS: ACETAMINOPHEN TAB 325 MG TAB PO PRN (16:51)
[2022-12-27] MEDS: HEPARIN SODIUM,PORCINE/PF 5,000 UNIT/0.5 ML SYRINGE SQ SCH ×4 (00:10→23:17)
[2022-12-27] MEDS: FUROSEMIDE 10 MG/ML 4 ML VIAL IV SCH ×3 (00:10→20:38)
[2022-12-27] MEDS: carvediloL 12.5 MG TAB PO SCH ×2 (06:25→17:02)
[2022-12-27] MEDS: PANTOPRAZOLE 40 MG TABLET PO SCH (06:25)
[2022-12-27] MEDS: ACETAMINOPHEN TAB 325 MG TAB PO PRN (06:29)
[2022-12-27 08:12] LABS: Calcium 9.1 mg/dL (8.4-10.2); Potassium 4.7 mmol/L (3.5-5.1)
[2022-12-27] MEDS: cloNIDine HCL 0.1 MG TAB PO SCH (08:28)
[2022-12-27] MEDS: MAGNESIUM OXIDE 400 MG TAB PO SCH ×2 (08:28→20:38)
[2022-12-27] MEDS: ASPIRIN 81 MG PO SCH (08:29)
[2022-12-27] MEDS: FOLIC ACID 1 MG TAB PO SCH (08:29)
[2022-12-27] MEDS: PSYLLIUM HUSK 100% 6 GM PACKET PO SCH ×3 (08:30→20:39)
[2022-12-27] MEDS ORDERED: cloNIDine HCL 0.2 MG TAB PO SCH (09:00)
--- NOTE | 2022-12-27 10:07 | P.PN ---
Subjective Progress Note Date: 12/26/22 This is a 47-year-old female who follows with Dr. Stanford in the outpatient setting and has been admitted for CHF exacerbation. Patient has nephrology along with pulmonary and cardiology following closely. Patient is continued on IV Lasix which has been increased to 40 mg IV every 8 hours. Patient is significantly morbidly obese with generalized edema noted throughout along with significant weakness and reports she has been becoming more weak with all the volume overload and had been unable to walk. Would recommend physical therapy evaluation daily for strength and mobility. Patient reports she plans on going home and her sister will be coming to stay with her to help. Patient does have chronic kidney disease as well and creatinine is 1.80 and being monitored closely. Patient is using BiPAP at night and chronically wears 3 L of oxygen daily and is maintaining this with oxygen saturations above 90%. Patient is afebrile with no worsening shortness of breath and denies chest pain. Patient is tolerating oral intake with no nausea or vomiting noted. Review of systems: Constitutional: No reports of fatigue, fever, or chills Cardiovascular: No reports of chest pain or palpitations Respiratory: reports of shortness of breath although feels somewhat improved GI: No reports of nausea, no reports of vomiting, no diarrhea : No reports of dysuria or retention, currently with an indwelling Colon catheter Neurovascular: reports of generalized weakness All medications have been reviewed Active Medications Acetaminophen (Acetaminophen Tab 325 Mg Tab) 650 mg PO Q6H PRN PRN Reason: Fever and/ or Pain Last Admin: 12/27/22 06:29 Dose: 650 mg Alprazolam (Alprazolam 0.25 Mg Tab) 0.25 mg PO TID PRN PRN Reason: Anxiety Aspirin (Aspirin 81 Mg) 81 mg PO DAILY [facility] Last Admin: 12/27/22 08:29 Dose: 81 mg Carvedilol (Carvedilol 12.5 Mg Tab) 50 mg PO BID-W/MEALS [facility] Last Admin: 12/27/22 06:25 Dose: 50 mg Clonidine (Clonidine Hcl 0.2 Mg Tab) 0.2 mg PO TID [facility] Folic Acid (Folic Acid 1 Mg Tab) 1 mg PO DAILY [facility] Last Admin: 12/27/22 08:29 Dose: 1 mg Furosemide (Furosemide 10 Mg/Ml 4 Ml Vial) 40 mg IV Q8HR [facility] Last Admin: 12/27/22 08:29 Dose: 40 mg Heparin Sodium (Porcine) (Heparin Sodium,Porcine/Pf 5,000 Unit/0.5 Ml Syringe) 5,000 unit SQ Q8HR [facility] Last Admin: 12/27/22 08:29 Dose: 5,000 unit Hydralazine HCl (Hydralazine Hcl 20 Mg/Ml 1 Ml Vial) 10 mg IVP Q4HR PRN PRN Reason: Blood Pressure - High Last Admin: 12/25/22 04:20 Dose: 10 mg Ceftriaxone Sodium 1 gm/ (Sodium Chloride) 50 mls @ 100 mls/hr IVPB Q24H [facility]; Protocol Last Admin: 12/27/22 02:48 Dose: 100 mls/hr Magnesium Oxide (Magnesium Oxide 400 Mg Tab) 400 mg PO BID [facility] Last Admin: 12/27/22 08:28 Dose: 400 mg Naloxone HCl (Naloxone 0.4 Mg/Ml 1 Ml Vial) 0.2 mg IV Q2M PRN PRN Reason: Opioid Reversal Nifedipine (Nifedipine Xl 90 Mg Tab.Er.24) 90 mg PO 1200 [facility] Nystatin (Nystatin 100,000 Unit/Gm Powd 15 Gm) 1 applic TOPICAL BID [facility]; Protocol Last Admin: 12/26/22 20:55 Dose: 1 applic Pantoprazole Sodium (Pantoprazole 40 Mg Tablet) 40 mg PO AC-[id number] [facility] Last Admin: 12/27/22 06:25 Dose: 40 mg Psyllium Hydrophilic Mucilloid (Psyllium Husk 100% 6 Gm Packet) 6 gm PO TID [facility] Last Admin: 12/27/22 08:30 Dose: 6 gm PHYSICAL EXAMINATION: GENERAL: The patient is alert and oriented x4, Well developed, well nourished. Morbidly obese with a BMI of 67.2 HEENT: Pupils are round and equally reacting to light. EOMI. no scleral icterus. No conjunctival pallor. Normocephalic, atraumatic. No pharyngeal erythema. No thyromegaly. CARDIOVASCULAR: S1 and S2 muffled PULMONARY: diminished breath sounds bilaterally with no wheezing or rhonchi noted. ABDOMEN: soft. Nontender on exam. obese. non-distended, normoactive bowel sounds. No palpable organomegaly. MUSCULOSKELETAL: No joint swelling or deformity. EXTREMITIES: No cyanosis, clubbing, or pedal edema. NEUROLOGICAL: Gross neurological examination did not reveal any focal deficits. Diffuse weakness SKIN: No rashes. Assessment: Acute on chronic congestive heart failure with diastolic dysfunction, acute exacerbation Chronic hypoxic respiratory failure, chronically wears 3 L oxygen outpatient History of cardiomyopathy History of chronic kidney disease stage IV Chronic anemia most likely secondary to chronic kidney disease History of DVT Hypertension history Coronary artery disease Morbid obesity with a BMI of 67.2 Generalized weakness with gait dysfunction Morbid obesity with obesity/hypoventilation syndrome with sleep apnea, obstructive GI prophylaxis DVT prophylaxis Full code Plan: Recommend to continue with current medications and management with multiple medical consultations following. Nephrology following and patient is maintained on increased IV Lasix along with BiPAP at night and she chronically wears 3 L continuously during the day Patient is diuresing well and will discuss with nephrology about discharge planning Patient reports she will be going home and her sister will be coming to stay to help her Recommend PT/OT therapy evaluation Will discuss with case management about discharge planning Hopeful for discharge the next 24-48 hours The impression and plan of care has been dictated by Clare Palmer, nurse practitioner as directed. MD Ashlyn I have performed a history and examination and MDM of this patient, discussed the same with the dictator, and agree with the dictator's assessment and plan as written ,documented as a scribe. Based on total visit time, I have performed more than 50% of the visit. Any additional findings or plans will be noted. Objective - Vital Signs Vital signs: Vital Signs Temp 98.2 F 12/26/22 08:00 Pulse 84 12/26/22 08:00 Resp 16 12/26/22 08:00 BP 145/82 12/26/22 08:00 Pulse Ox 97 12/26/22 08:37 FiO2 50 12/26/22 04:30 Intake & Output 12/25/22 12/26/22 12/26/22 18:59 06:59 18:59 Intake Total 1220 180 Output Total 3500 3850 500 Balance -2280 -3850 -320 Weight 199.5 kg Intake: Oral 1220 180 Output: Urine 3500 3850 500 Uretheral (Colon) 3100 Other: Voiding Method Indwelling Catheter Indwelling Catheter Indwelling Catheter # Voids 1 # Bowel Movements 1 - Labs CBC & Chem 7: 12/26/22 07:21 12/27/22 07:23 Labs: Abnormal Lab Results - Last 24 Hours (Table) 12/26/22 12/26/22 Range/Units 07:21 07:21 Hgb 9.7 L (11.4-16.0) gm/dL MCH 22.5 L (25.0-35.0) pg MCHC 27.6 L (31.0-37.0) g/dL RDW 20.1 H (11.5-15.5) % Lymphocytes # 0.5 L (1.0-4.8) k/uL Chloride 97 L (98-107) mmol/L Carbon Dioxide 39 H (22-30) mmol/L BUN 36 H (7-17) mg/dL Creatinine 1.80 H (0.52-1.04) mg/dL
--- NOTE | 2022-12-27 10:37 | P.PN ---
Subjective Progress Note Date: 12/27/22 I'm seeing this patient in new consultation today 12/20/2022 for progressive shortness of breath. This is a 47-year-old -[place] female with past medical history of CHF, hypertension, morbid obesity, obstructive sleep apnea without CPAP, home O2 3 L nasal cannula mostly at night, previous ventilator dependent respiratory failure, hypertension, chronic kidney disease stage IV, lymphedema, anemia, urinary tract infections. Patient is currently resting in bed, drowsy but arousable and oriented, on 6 L nasal cannula. She is somewhat a poor historian, but states that her shortness breath started approximately 3 days ago. She has associated lower extremity swelling which is 2-3+ bilaterally . Patient denies cough, fever, chest pain. Denies sick contacts. She has swelling of the left upper extremity, she is unable to tell me when this started. Chest x-ray performed on admission showed cardiomegaly and pulmonary edema that could be related to heart failure versus ARDS. A follow-up enhanced abdomen pelvis CT redemonstrated the patient's cardiomegaly with bibasilar infiltrates and atelectasis. Most recent echocardiogram performed on 07/05/2022 showed a preserved ejection fraction of 55-60% and overall limited views due to patient's body habitus. ProBNP was elevated at 12,500. She is receiving Lasix 80 mg IV every 12 hours and spironolactone daily. Patient's fluid balance is -4 L. VBG done on arrival showed a pH of 7.3, pCO2 52. Patient's CBC on arrival showed a WBC count of 8.8, hemoglobin 9.7, hematocrit 34.1, platelets 262,000. BMP on admission showed a sodium 139, potassium 4.5, chloride 108, serum CO2 26, BUN 42, creatinine chronically high at 2, glucose 108. Troponin was mildly elevated at 0.057. No obvious evidence of ischemic changes on ECG. Pro-calcitonin level was mildly elevated at 0.27 she has received empiric ceftriaxone and azithromycin. She is afebrile. Vital signs are stable at this time. Progress note dated 12/21/2022. 47-year-old black female who was admitted with a diagnosis of shortness of breath, secondary to CHF, although the patient does have a history of morbid obesity, hypertension, sleep apnea, and chronic kidney disease. Currently, the patient appears to be doing better. She is using the BiPAP at nighttime, with settings of 12/5 and 50%. Today when we saw her, she was on 2 L. She's not receiving any IV fluids. No new labs today other than a sodium 141, potassium 4.3, chlorides 107, CO2 29, BUN 45, and creatinine 2.26. Pro-calcitonin level is 0.27. Progress note dated 12/22/2022. 47-year-old black female was admitted with a diagnosis of acute hypoxemic respiratory chronic secondary to CHF. Currently, the patient is on 3 L of oxygen. She's not receiving any IV fluids. At nighttime, she uses BiPAP, with settings of 12/5 and 50%. Laboratory data today includes a sodium 142, potassium 5.5, chlorides 110, CO2 26, anion gap 6, BUN 47, and creatinine 2.10. Glucose 115. Progress note dated 12/23/2022. 47-year-old black female, obese, with a diagnosis of acute hypoxemic respiratory failure, secondary to CHF, with fluid overload. Currently, the patient's on 2 L of oxygen. At nighttime, she uses BiPAP, with settings of 12/5 and 50%. Clinically, she is improved. White count 7, hemoglobin 9.6, hematocrit 34, with a normal platelet count. Sodium 140, potassium 4.8, chlorides 107, CO2 25, normal anion gap, UN 44, and creatinine 1.88. On today's evaluation of 12/24/2022, the patient is being seen for a follow-up. The patient has a BiPAP machine at the bedside and she is using it overnight at a pressure of 12/5 cm of water with FiO2 40%. While off the BiPAP, the patient is on 2 L of oxygen by nasal cannula. She remains on Lasix 40 mg IV every 12 hours and the patient's fluid balance is -4.4 L over the past 24 hours. She remains on IV Rocephin as an empiric antibiotic coverage. She is a 47-year-old female patient, morbidly obese along with history of CHF and hypertension and obstructive sleep apnea and the patient has not been utilizing his CPAP machine and outpatient basis. At home, she is on O2 at 3 L. She is also known to have chronic stage IV kidney disease, chronic lymphedema and previous episodes of urinary tract infection. The patient understands at 7 with a hemoglobin of 9.6 and a platelet count of 198. Creatinine is at 1.8 with a BUN of 44 and sodium level is at 140. 12/17/2022, the patient is on 2 L of oxygen by nasal cannula. She is laying comfortably in bed. Overnight, she is using the BiPAP at a pressure of 12/5 cm of water with an FiO2 of 40%. She is hemodynamically stable. She is still diuresing well. The fluid balance over the past 24 hours has been -8.6 L and the patient is aggressively diuresing. Creatinine is down to 1.6 with a BUN of 35 and a sodium level is at 140 and a potassium level is at 4.2. No other significant events. The patient remains on diuretics and she is on Lasix at a dose of 40 mg IV every 8 hours. On today's evaluation of 2022, the patient is being seen for a follow-up. The patient remains on IV Lasix. The patient remains in negative fluid balance. BUN is at 36 with a creatinine of 1.8 and sodium levels of 138. There was positive for 0.4 with a hemoglobin of 9.7. The patient remains on 3 L O2 nasal cannula with a pulse ox 97%. The patient is utilizing BiPAP overnight. No other significant issues otherwise for now.Fluid balance over the past 24 hours has been -8.6 L and the patient is another 6.1 L negative since yesterday. On today's evaluation of 12/27/2022, the patient is stable. No complaints. Continues to diurese. Blood work shows a BUN of 32 with a creatinine of 1.6. Sodium is at 137 with a potassium level of 4.7. Significantly negative fluid balance and the patient has been 6.1 L negative for yesterday and she has had it for another negative fluid balance of 5.4 L. The patient remains on oxygen at 3 L with a pulse ox of 99% Objective - Vital Signs Vital signs: Vital Signs Temp 97.8 F 12/27/22 08:23 Pulse 72 12/27/22 08:23 Resp 20 12/27/22 08:23 BP 115/58 12/27/22 08:23 Pulse Ox 99 12/27/22 08:34 FiO2 50 12/27/22 04:00 Intake & Output 12/26/22 12/27/22 12/27/22 18:59 06:59 18:59 Intake Total 960 540 236 Output Total 4000 2975 725 Balance -3870 -2230 -500 Weight 194.5 kg Intake: Oral 960 540 236 Output: Urine 4000 2975 725 Other: Voiding Method Indwelling Catheter Indwelling Catheter Indwelling Catheter - Exam No acute distress, oriented 3. Currently on 3 L O2 nasal cannula HEENT examination is grossly unremarkable. Neck supple. Full range of motion. No adenopathy thyromegaly or neck vein distention. Cardiovascular examination reveals regular rhythm rate. S1-S2 normal. No S3 or S4. No discernible murmur noted. Heart sounds are distant. Lungs reveal scattered rhonchi and crackles. Breath sounds equal. No wheezes. Abdomen soft bowel sounds are heard. No masses or tenderness. Extremities are intact. No cyanosis or clubbing. 1+ edema is noted. Skin is without rash or lesion. Neurologic examination is brief but nonfocal. - Labs CBC & Chem 7: 12/26/22 07:21 12/27/22 07:23 Labs: Abnormal Lab Results - Last 24 Hours (Table) 12/27/22 Range/Units 07:23 Chloride 96 L (98-107) mmol/L Carbon Dioxide 40 H (22-30) mmol/L BUN 32 H (7-17) mg/dL Creatinine 1.64 H (0.52-1.04) mg/dL Assessment and Plan Plan: Acute on chronic hypoxic respiratory failure probably related to a combination of fluid overload and acute exacerbation of diastolic congestive heart failure. The patient is currently on 3 L of oxygen by nasal cannula. The patient is being diuresed. The patient is being supported with BiPAP overnight. Condition is stable and essentially improving as the patient is being diuresed on a regular basis and she has been in negative fluid balance and she's esponding to diuretics Patient has a component of chronic hypoxic respiratory failure related to her m orbid obesity and obesity/hypoventilation syndrome. She has obstructive sleep apnea in which she is noncompliant with her CPAP or BiPAP at home. She does wear 3 L nasal cannula at home, mostly at night. Acute on top of chronic kidney injury, improving and the creatinine is 1.6 History of ventilatory dependent respiratory failure. Left upper extremity swelling. Morbid obesity. Hypertension. CAD. Chronic kidney disease stage IV. Chronic anemia. Lymphedema. History DVT. History of SVT. Nonsmoker. . Plan: Continue Lasix 40 mg every 12 hours and the patient has been in significant n egative fluid balance Renal function is stable and the creatinine is at 1.6, rest of the electrodes are stable The patient has had intolerance to 6 L negative fluid balance over the next 24 hours Clinically stable Continues to be in negative fluid balance Continues to have signs of fluid overload and the patient remains on Lasix 40 mg every 12 hours and she is producing adequate urine output Electrolytes are stable Continue BiPAP overnight at a pressure of 12/5 cm of water and FiO2 of 40% O2 at 2 L during the day Monitor renal function the creatinine is down to 1.6 We'll continue to follow
--- NOTE | 2022-12-27 11:51 | P.PN ---
Subjective Progress Note Date: 12/27/22 CHF The patient is a pleasant 47-year-old Citizen Of [place] female patient with a past medical history significant for morbid obesity and history of congestive heart failure was admitted to the hospital with heart failure again. This time she underwent an echo which revealed cardiomyopathy with EF around 35% which has decreased compared to before. Also she was in acute renal failure. 12/22/2022 The patient was seen and evaluated this morning. She remains in failure. She is still hypoxic reaches to have bilateral lower extremities edema. She continues to be on Bumex IV and she has been diuresing very well. At this point I would recommend continue the current medical regimen. Clearly the patient sti ll hypervolemic. Continue monitor the kidney function and electrolytes. Consider optimize medical treatment for cardiomyopathy once the kidney function improved. 12/23/2022 The patient was seen this morning. She continues to be extremely hypervolemic with severe bilateral lower except his edema. She was switched into oral loop diuretics using Bumex. I believe that the patient need to be on IV diuretics at this point. We will touch base with the internal medicine service as well as nephrology service. The creatinine continues to be stable. On examination she still have severe bilateral lower except his edema was diminished breathing sounds bilaterally. 12/24 Patient's blood pressure readings remain elevated and metoprolol will be transitioned to Coreg. Patient does complain of palpitations. Heart rate has been in the 80s. Chest x-ray from her yesterday revealed cardiomegaly, r etrocardiac infiltration considered. Patient is maintained on IV Lasix per nephrology. 12/25 Patient denies any chest pain or shortness of breath. She is in a sinus rhythm on telemetry. Blood pressure readings are elevated at 146/88. Heart rate is running in the 80s and 90s. Pulse ox 95% on 2 L. Repeat blood work reveals sodium 140, potassium 4.2, BUN 35 and creatinine 1.68 which is improvement of her renal function. 12/26 Patient denies having any chest pain or shortness of breath. She remains in sinus rhythm in the 60s 80s. Blood pressure remains elevated despite changes made yesterday at 145/82 and 172/84. We'll plan to make further adjustments to her blood pressure medications today. Hemoglobin is 9.7. Potassium 4.4, BUN 36 and creatinine 1.8. 12/27 Patient's blood pressure is better controlled but still having some high readings. We are going to increase Procardia do at noon today and decrease clonidine. Plan will be to further decrease clonidine tomorrow to get her off this completely. Heart rates have been in the 70s, pulse ox 92% on 3 L nasal cannula. Potassium 4.7, BUN 32 creatinine 1.64. Physical Examination Gen: This is morbid obese 47-year-old female resting in bed appears to be comfortable HEENT: Head is atraumatic, normocephalic. Pupils equal, round. Sclerae is anicteric. NECK: Supple. No JVD. No lymphadenopathy. No thyromegaly. LUNGS: Scattered rhonchi. No intercostal retractions. HEART: Regular rate and rhythm. No murmur. EXTREMITIES: 1+ pedal edema. NEUROLOGICAL: Patient is awake, alert and oriented x3. Assessment Congestive heart failure related to heart failure with reduced ejection fraction Cardiomyopathy, unknown to be ischemic or nonischemic Morbid obesity Chronic renal failure Multiple comorbid conditions Plan Patient maintained on IV Lasix per nephrology Continue the increased dose of Coreg 50 mg twice daily Increase Procardia to 90 mg mg at noon and decrease clonidine to 0.2 mg 3 times daily with plan to eventually wean off clonidine completely. Continue monitoring the kidney function and electrolytes Consider optimizing medical treatment for cardiomyopathy once the creatinine is stable Follow-up with the patient Nurse practitioner note has been reviewed, I agree with the documented findings and plan of care. Patient was seen and examined. Objective - Vital Signs Vital signs: Vital Signs Temp 98.1 F 12/27/22 04:00 Pulse 77 12/26/22 23:51 Resp 18 12/27/22 04:00 BP 142/84 12/27/22 04:00 Pulse Ox 98 12/27/22 04:00 FiO2 50 12/27/22 04:00 Intake & Output 12/26/22 12/27/22 12/27/22 18:59 06:59 18:59 Intake Total 960 540 Output Total 4000 2975 Balance -3040 -2435 Weight 194.5 kg Intake: Oral 960 540 Output: Urine 4000 2975 Other: Voiding Method Indwelling Catheter Indwelling Catheter - Labs CBC & Chem 7: 12/26/22 07:21 12/27/22 07:23 Labs: Abnormal Lab Results - Last 24 Hours (Table) 12/26/22 12/26/22 Range/Units 07:21 07:21 Hgb 9.7 L (11.4-16.0) gm/dL MCH 22.5 L (25.0-35.0) pg MCHC 27.6 L (31.0-37.0) g/dL RDW 20.1 H (11.5-15.5) % Lymphocytes # 0.5 L (1.0-4.8) k/uL Chloride 97 L (98-107) mmol/L Carbon Dioxide 39 H (22-30) mmol/L BUN 36 H (7-17) mg/dL Creatinine 1.80 H (0.52-1.04) mg/dL
--- NOTE | 2022-12-27 11:56 | P.PN ---
Subjective Patient is seen for follow-up for chronic kidney disease. Baseline creatinine around 1.8-2 mg/dL. Patient is currently being diuresed Dose of Lasix has been increased and patient has responded well with improving edema and increased urine output. 24 hour urine output documented at 6.9 L. Objective - Vital Signs Vital signs: Vital Signs Temp 97.8 F 12/27/22 11:41 Pulse 78 12/27/22 11:41 Resp 20 12/27/22 11:41 BP 168/93 12/27/22 11:41 Pulse Ox 92 L 12/27/22 11:41 FiO2 50 12/27/22 04:00 Intake & Output 12/26/22 12/27/22 12/27/22 18:59 06:59 18:59 Intake Total 960 540 236 Output Total 4000 2975 1250 Balance -6505 -0162 -1014 Weight 194.5 kg Intake: Oral 960 540 236 Output: Urine 4000 2975 1250 Other: Voiding Method Indwelling Catheter Indwelling Catheter Indwelling Catheter - Exam Patient is awake, comfortable, no acute distress Examination of the heart S1 and S2 Examination of the lungs bilateral breath sounds are heard. Distant due to body habitus Abdomen is soft morbidly obese Examination lower extremity shows chronic edema, improved much INSTRUMENT OPERATOR exam grossly intact - Labs CBC & Chem 7: 12/26/22 07:21 12/27/22 07:23 Labs: Abnormal Lab Results - Last 24 Hours (Table) 12/27/22 Range/Units 07:23 Chloride 96 L (98-107) mmol/L Carbon Dioxide 40 H (22-30) mmol/L BUN 32 H (7-17) mg/dL Creatinine 1.64 H (0.52-1.04) mg/dL Assessment and Plan Assessment: 1. Chronic kidney disease stage IIIB secondary to cardiorenal syndrome. Baseline creatinine near 2. Renal function close to baseline. 2. Acute on chronic diastolic CHF. 3. Volume overload. 4. Hypertension with chronic kidney disease. 5. Anemia of chronic kidney disease. Iron deficiency noted. Status post IV iron Plan: Continue with IV Lasix for 1 more day and switch to oral diuretics tomorrow. Patient can likely be discharged tomorrow. She will likely need 80 mg by mouth twice a day Repeat labs in a.m.
[2022-12-27] MEDS: NYSTATIN 100,000 UNIT/GM POWD 15 GM TOPICAL SCH ×2 (12:05→20:39)
[2022-12-27] MEDS: NIFEdipine XL 90 MG TAB.ER.24 PO SCH (12:06)
[2022-12-27] MEDS: acetaZOLAMIDE 250 MG TAB PO SCH (12:06)
[2022-12-27] MEDS: cloNIDine HCL 0.2 MG TAB PO SCH ×2 (17:02→20:38)
--- NOTE | 2022-12-27 19:02 | P.PN ---
Subjective Progress Note Date: 12/27/22 This is a 47-year-old female who follows with Dr. Stanford in the outpatient setting and has been admitted for CHF exacerbation. Patient has nephrology along with pulmonary and cardiology following closely. Patient is continued on IV Lasix which has been increased to 40 mg IV every 8 hours. Patient is significantly morbidly obese with generalized edema noted throughout along with significant weakness and reports she has been becoming more weak with all the volume overload and had been unable to walk. Would recommend physical therapy evaluation daily for strength and mobility. Patient reports she plans on going home and her sister will be coming to stay with her to help. Patient does have chronic kidney disease as well and creatinine is 1.80 and being monitored closely. Patient is using BiPAP at night and chronically wears 3 L of oxygen daily and is maintaining this with oxygen saturations above 90%. Patient is afebrile with no worsening shortness of breath and denies chest pain. Patient is tolerating oral intake with no nausea or vomiting noted. 12/27/2022 Patient is seen and evaluated in follow-up today maintained on IV Lasix and has been transitioned to 40 mg IV twice daily and diuresing well. Nephrology following and recommending transitioning to oral Lasix tomorrow and will continue on 80 mg twice a day with close outpatient follow-up. Social work following and plan is to return home and sister will be staying with her to help as she does not have any days available [facility]. Arranging for home care in the outpatient setting. Patient is currently afebrile reports improvement in her shortness of breath and denies chest pains. Patient tolerating diet with no reports of nausea or vomiting noted. Encouraged increased activity as tolerated and recommended PT/OT therapy daily. Review of systems: Constitutional: No reports of fatigue, fever, or chills Cardiovascular: No reports of chest pain or palpitations Respiratory: reports of shortness of breath although feels somewhat improved GI: No reports of nausea, no reports of vomiting, no diarrhea : No reports of dysuria or retention, currently with an indwelling Colon catheter Neurovascular: reports of generalized weakness All medications have been reviewed Active Medications Acetaminophen (Acetaminophen Tab 325 Mg Tab) 650 mg PO Q6H PRN PRN Reason: Fever and/ or Pain Last Admin: 12/27/22 06:29 Dose: 650 mg Acetazolamide (Acetazolamide 250 Mg Tab) 250 mg PO DAILY [facility] Last Admin: 12/27/22 12:06 Dose: 250 mg Alprazolam (Alprazolam 0.25 Mg Tab) 0.25 mg PO TID PRN PRN Reason: Anxiety Aspirin (Aspirin 81 Mg) 81 mg PO DAILY [facility] Last Admin: 12/27/22 08:29 Dose: 81 mg Carvedilol (Carvedilol 12.5 Mg Tab) 50 mg PO BID-W/MEALS [facility] Last Admin: 12/27/22 17:02 Dose: 50 mg Clonidine (Clonidine Hcl 0.2 Mg Tab) 0.2 mg PO TID [facility] Last Admin: 12/27/22 17:02 Dose: 0.2 mg Folic Acid (Folic Acid 1 Mg Tab) 1 mg PO DAILY [facility] Last Admin: 12/27/22 08:29 Dose: 1 mg Furosemide (Furosemide 10 Mg/Ml 4 Ml Vial) 40 mg IV Q12HR [facility] Heparin Sodium (Porcine) (Heparin Sodium,Porcine/Pf 5,000 Unit/0.5 Ml Syringe) 5,000 unit SQ Q8HR [facility] Last Admin: 12/27/22 17:02 Dose: 5,000 unit Hydralazine HCl (Hydralazine Hcl 20 Mg/Ml 1 Ml Vial) 10 mg IVP Q4HR PRN PRN Reason: Blood Pressure - High Last Admin: 12/25/22 04:20 Dose: 10 mg Ceftriaxone Sodium 1 gm/ (Sodium Chloride) 50 mls @ 100 mls/hr IVPB Q24H [facility]; Protocol Last Admin: 12/27/22 02:48 Dose: 100 mls/hr Magnesium Oxide (Magnesium Oxide 400 Mg Tab) 400 mg PO BID [facility] Last Admin: 12/27/22 08:28 Dose: 400 mg Naloxone HCl (Naloxone 0.4 Mg/Ml 1 Ml Vial) 0.2 mg IV Q2M PRN PRN Reason: Opioid Reversal Nifedipine (Nifedipine Xl 90 Mg Tab.Er.24) 90 mg PO 1200 [facility] Last Admin: 12/27/22 12:06 Dose: 90 mg Nystatin (Nystatin 100,000 Unit/Gm Powd 15 Gm) 1 applic TOPICAL BID [facility]; Pr otocol Last Admin: 12/27/22 12:05 Dose: 1 applic Pantoprazole Sodium (Pantoprazole 40 Mg Tablet) 40 mg PO AC-[id number] [facility] Last Admin: 12/27/22 06:25 Dose: 40 mg Psyllium Hydrophilic Mucilloid (Psyllium Husk 100% 6 Gm Packet) 6 gm PO TID [facility] Last Admin: 12/27/22 17:04 Dose: Not Given PHYSICAL EXAMINATION: GENERAL: The patient is alert and oriented x4, Well developed, well nourished. Morbidly obese with a BMI of 67.2 HEENT: Pupils are round and equally reacting to light. EOMI. no scleral icterus. No conjunctival pallor. Normocephalic, atraumatic. No pharyngeal erythema. No thyromegaly. CARDIOVASCULAR: S1 and S2 muffled PULMONARY: diminished breath sounds bilaterally with no wheezing or rhonchi noted. ABDOMEN: soft. Nontender on exam. obese. non-distended, normoactive bowel sounds. No palpable organomegaly. MUSCULOSKELETAL: No joint swelling or deformity. EXTREMITIES: No cyanosis, clubbing, or pedal edema. NEUROLOGICAL: Gross neurological examination did not reveal any focal deficits. Diffuse weakness SKIN: No rashes. Assessment: Acute on chronic congestive heart failure with diastolic dysfunction, acute exacerbation Chronic hypoxic respiratory failure, chronically wears 3 L oxygen outpatient History of cardiomyopathy History of chronic kidney disease stage IV Chronic anemia most likely secondary to chronic kidney disease History of DVT Hypertension history Coronary artery disease Morbid obesity with a BMI of 67.2 Generalized weakness with gait dysfunction Morbid obesity with obesity/hypoventilation syndrome with sleep apnea, obstructive GI prophylaxis DVT prophylaxis Full code Plan: Recommend to continue with current medications and management with multiple medical consultations following. Nephrology following and patient is maintained on increased IV Lasix and has been decreased to 40 mg twice daily and will transition to oral Lasix 80 mg twice daily tomorrow. Patient is diuresing well and will likely discharge in 24 hours Patient reports she will be going home and her sister will be coming to stay to help her Recommend PT/OT therapy evaluation daily as patient continues with weakness although has no available days left for insurance to [facility] Will discuss with case management about discharge planning Hopeful for discharge the next 24hours The impression and plan of care has been dictated by Clare Palmer, nurse practitioner as directed. Dr. Rosemary MCDONNELL I have performed a history and examination and MDM of this patient, discussed the same with the dictator, and agree with the dictator's assessment and plan as written ,documented as a scribe. Based on total visit time, I have performed more than 50% of the visit. Any additional findings or plans will be noted. Objective - Vital Signs Vital signs: Vital Signs Temp 97.8 F 12/27/22 08:23 Pulse 72 12/27/22 08:23 Resp 20 12/27/22 08:23 BP 115/58 12/27/22 08:23 Pulse Ox 99 12/27/22 08:34 FiO2 50 12/27/22 04:00 Intake & Output 12/26/22 12/27/22 12/27/22 18:59 06:59 18:59 Intake Total 960 540 236 Output Total 4000 2975 Balance -3040 -9905 236 Weight 194.5 kg Intake: Oral 960 540 236 Output: Urine 4000 2975 Other: Voiding Method Indwelling Catheter Indwelling Catheter Indwelling Catheter - Labs CBC & Chem 7: 12/26/22 07:21 12/27/22 07:23 Labs: Abnormal Lab Results - Last 24 Hours (Table) 12/27/22 Range/Units 07:23 Chloride 96 L (98-107) mmol/L Carbon Dioxide 40 H (22-30) mmol/L BUN 32 H (7-17) mg/dL Creatinine 1.64 H (0.52-1.04) mg/dL
[2022-12-28] MEDS: PANTOPRAZOLE 40 MG TABLET PO SCH (05:59)
[2022-12-28] MEDS: MAGNESIUM OXIDE 400 MG TAB PO SCH (08:42)
[2022-12-28] MEDS: ASPIRIN 81 MG PO SCH (08:42)
[2022-12-28] MEDS: acetaZOLAMIDE 250 MG TAB PO SCH (08:42)
[2022-12-28] MEDS: PSYLLIUM HUSK 100% 6 GM PACKET PO SCH ×2 (08:44→15:35)
[2022-12-28] MEDS: HEPARIN SODIUM,PORCINE/PF 5,000 UNIT/0.5 ML SYRINGE SQ SCH ×2 (08:44→15:21)
[2022-12-28] MEDS: carvediloL 12.5 MG TAB PO SCH ×2 (08:49→17:22)
[2022-12-28] MEDS: FUROSEMIDE 10 MG/ML 4 ML VIAL IV SCH (08:49)
[2022-12-28] MEDS: FOLIC ACID 1 MG TAB PO SCH (08:50)
[2022-12-28] MEDS: NYSTATIN 100,000 UNIT/GM POWD 15 GM TOPICAL SCH (08:58)
[2022-12-28] MEDS ORDERED: cloNIDine HCL 0.1 MG TAB PO SCH (09:00)
--- NOTE | 2022-12-28 10:35 | P.PN ---
Subjective Progress Note Date: 12/28/22 CHF The patient is a pleasant 47-year-old [place] female patient with a past medical history significant for morbid obesity and history of congestive heart failure was admitted to the hospital with heart failure again. This time she underwent an echo which revealed cardiomyopathy with EF around 35% which has decreased compared to before. Also she was in acute renal failure. 12/22/2022 The patient was seen and evaluated this morning. She remains in failure. She is still hypoxic reaches to have bilateral lower extremities edema. She continues to be on Bumex IV and she has been diuresing very well. At this point I would recommend continue the current medical regimen. Clearly the patient sti ll hypervolemic. Continue monitor the kidney function and electrolytes. Consider optimize medical treatment for cardiomyopathy once the kidney function improved. 12/23/2022 The patient was seen this morning. She continues to be extremely hypervolemic with severe bilateral lower except his edema. She was switched into oral loop diuretics using Bumex. I believe that the patient need to be on IV diuretics at this point. We will touch base with the internal medicine service as well as nephrology service. The creatinine continues to be stable. On examination she still have severe bilateral lower except his edema was diminished breathing sounds bilaterally. 12/24 Patient's blood pressure readings remain elevated and metoprolol will be transitioned to Coreg. Patient does complain of palpitations. Heart rate has been in the 80s. Chest x-ray from her yesterday revealed cardiomegaly, r etrocardiac infiltration considered. Patient is maintained on IV Lasix per nephrology. 12/25 Patient denies any chest pain or shortness of breath. She is in a sinus rhythm on telemetry. Blood pressure readings are elevated at 146/88. Heart rate is running in the 80s and 90s. Pulse ox 95% on 2 L. Repeat blood work reveals sodium 140, potassium 4.2, BUN 35 and creatinine 1.68 which is improvement of her renal function. 12/26 Patient denies having any chest pain or shortness of breath. She remains in sinus rhythm in the 60s 80s. Blood pressure remains elevated despite changes made yesterday at 145/82 and 172/84. We'll plan to make further adjustments to her blood pressure medications today. Hemoglobin is 9.7. Potassium 4.4, BUN 36 and creatinine 1.8. 12/27 Patient's blood pressure is better controlled but still having some high readings. We are going to increase Procardia do at noon today and decrease clonidine. Plan will be to further decrease clonidine tomorrow to get her off this completely. Heart rates have been in the 70s, pulse ox 92% on 3 L nasal cannula. Potassium 4.7, BUN 32 creatinine 1.64. 12/28: Patient is seen today in follow-up. Yesterday, we increase Procardia to 90 mg at noon and decrease clonidine to 0.2 mg 3 times daily. This morning, blood pressure 116/65. Patient is tolerating well. Patient is maintained on IV Lasix per nephrology and is also been started on Diamox. No blood work for today. Physical Examination Gen: This is morbid obese 47-year-old female resting in bed appears to be comfortable HEENT: Head is atraumatic, normocephalic. Pupils equal, round. Sclerae is anicteric. NECK: Supple. No JVD. No lymphadenopathy. No thyromegaly. LUNGS: Scattered rhonchi. No intercostal retractions. HEART: Regular rate and rhythm. No murmur. EXTREMITIES: 1+ pedal edema. NEUROLOGICAL: Patient is awake, alert and oriented x3. Assessment Congestive heart failure related to heart failure with reduced ejection fraction Cardiomyopathy, unknown to be ischemic or nonischemic Hypertension Morbid obesity Chronic renal failure Multiple comorbid conditions Plan Patient maintained on IV Lasix per nephrology Continue the increased dose of Coreg 50 mg twice daily Continue the increased dose of Procardia 90 mg mg at noon and discontinue cl onidine. Continue monitoring the kidney function and electrolytes Consider optimizing medical treatment for cardiomyopathy once the creatinine is stable Follow-up with the patient Nurse practitioner note has been reviewed, I agree with the documented findings and plan of care. Patient was seen and examined. Objective - Vital Signs Vital signs: Vital Signs Temp 98.1 F 12/27/22 23:15 Pulse 57 L 12/28/22 04:25 Resp 20 12/28/22 04:25 BP 116/65 12/28/22 04:25 Pulse Ox 100 12/28/22 04:25 FiO2 50 12/28/22 08:34 Intake & Output 12/27/22 12/28/22 12/28/22 18:59 06:59 18:59 Intake Total 596 Output Total 2525 1700 Balance -1929 -1699 Weight 190.509 kg Intake: Oral 596 Output: Urine 8609 1700 Other: Voiding Method Indwelling Catheter Indwelling Catheter - Labs CBC & Chem 7: 12/26/22 07:21 12/27/22 07:23
[2022-12-28] MEDS: NIFEdipine XL 90 MG TAB.ER.24 PO SCH (12:31)
--- NOTE | 2022-12-28 13:08 | XR ---
EXAMINATION TYPE: XR chest 1V portable DATE OF EXAM: 12/28/2022 COMPARISON: 12/23/2022 HISTORY: Chest pain TECHNIQUE: Single frontal view of the chest is obtained. FINDINGS: There is no focal air space opacity, pleural effusion, or pneumothorax seen. Continued cardiomegaly with pulmonary venous congestion. The osseous structures are intact. IMPRESSION: 1. Continued cardiomegaly with pulmonary venous congestion.
--- NOTE | 2022-12-28 14:35 | P.PN ---
Subjective Progress Note Date: 12/28/22 I'm seeing this patient in new consultation today 12/20/2022 for progressive shortness of breath. This is a 47-year-old -[place] female with past medical history of CHF, hypertension, morbid obesity, obstructive sleep apnea without CPAP, home O2 3 L nasal cannula mostly at night, previous ventilator dependent respiratory failure, hypertension, chronic kidney disease stage IV, lymphedema, anemia, urinary tract infections. Patient is currently resting in bed, drowsy but arousable and oriented, on 6 L nasal cannula. She is somewhat a poor historian, but states that her shortness breath started approximately 3 days ago. She has associated lower extremity swelling which is 2-3+ bilaterally . Patient denies cough, fever, chest pain. Denies sick contacts. She has swelling of the left upper extremity, she is unable to tell me when this started. Chest x-ray performed on admission showed cardiomegaly and pulmonary edema that could be related to heart failure versus ARDS. A follow-up enhanced abdomen pelvis CT redemonstrated the patient's cardiomegaly with bibasilar infiltrates and atelectasis. Most recent echocardiogram performed on 07/05/2022 showed a preserved ejection fraction of 55-60% and overall limited views due to patient's body habitus. ProBNP was elevated at 12,500. She is receiving Lasix 80 mg IV every 12 hours and spironolactone daily. Patient's fluid balance is -4 L. VBG done on arrival showed a pH of 7.3, pCO2 52. Patient's CBC on arrival showed a WBC count of 8.8, hemoglobin 9.7, hematocrit 34.1, platelets 262,000. BMP on admission showed a sodium 139, potassium 4.5, chloride 108, serum CO2 26, BUN 42, creatinine chronically high at 2, glucose 108. Troponin was mildly elevated at 0.057. No obvious evidence of ischemic changes on ECG. Pro-calcitonin level was mildly elevated at 0.27 she has received empiric ceftriaxone and azithromycin. She is afebrile. Vital signs are stable at this time. Progress note dated 12/21/2022. 47-year-old black female who was admitted with a diagnosis of shortness of breath, secondary to CHF, although the patient does have a history of morbid obesity, hypertension, sleep apnea, and chronic kidney disease. Currently, the patient appears to be doing better. She is using the BiPAP at nighttime, with settings of 12/5 and 50%. Today when we saw her, she was on 2 L. She's not receiving any IV fluids. No new labs today other than a sodium 141, potassium 4.3, chlorides 107, CO2 29, BUN 45, and creatinine 2.26. Pro-calcitonin level is 0.27. Progress note dated 12/22/2022. 47-year-old black female was admitted with a diagnosis of acute hypoxemic respiratory chronic secondary to CHF. Currently, the patient is on 3 L of oxygen. She's not receiving any IV fluids. At nighttime, she uses BiPAP, with settings of 12/5 and 50%. Laboratory data today includes a sodium 142, potassium 5.5, chlorides 110, CO2 26, anion gap 6, BUN 47, and creatinine 2.10. Glucose 115. Progress note dated 12/23/2022. 47-year-old black female, obese, with a diagnosis of acute hypoxemic respiratory failure, secondary to CHF, with fluid overload. Currently, the patient's on 2 L of oxygen. At nighttime, she uses BiPAP, with settings of 12/5 and 50%. Clinically, she is improved. White count 7, hemoglobin 9.6, hematocrit 34, with a normal platelet count. Sodium 140, potassium 4.8, chlorides 107, CO2 25, normal anion gap, UN 44, and creatinine 1.88. On today's evaluation of 12/24/2022, the patient is being seen for a follow-up. The patient has a BiPAP machine at the bedside and she is using it overnight at a pressure of 12/5 cm of water with FiO2 40%. While off the BiPAP, the patient is on 2 L of oxygen by nasal cannula. She remains on Lasix 40 mg IV every 12 hours and the patient's fluid balance is -4.4 L over the past 24 hours. She remains on IV Rocephin as an empiric antibiotic coverage. She is a 47-year-old female patient, morbidly obese along with history of CHF and hypertension and obstructive sleep apnea and the patient has not been utilizing his CPAP machine and outpatient basis. At home, she is on O2 at 3 L. She is also known to have chronic stage IV kidney disease, chronic lymphedema and previous episodes of urinary tract infection. The patient understands at 7 with a hemoglobin of 9.6 and a platelet count of 198. Creatinine is at 1.8 with a BUN of 44 and sodium level is at 140. 12/17/2022, the patient is on 2 L of oxygen by nasal cannula. She is laying comfortably in bed. Overnight, she is using the BiPAP at a pressure of 12/5 cm of water with an FiO2 of 40%. She is hemodynamically stable. She is still diuresing well. The fluid balance over the past 24 hours has been -8.6 L and the patient is aggressively diuresing. Creatinine is down to 1.6 with a BUN of 35 and a sodium level is at 140 and a potassium level is at 4.2. No other significant events. The patient remains on diuretics and she is on Lasix at a dose of 40 mg IV every 8 hours. On today's evaluation of 2022, the patient is being seen for a follow-up. The patient remains on IV Lasix. The patient remains in negative fluid balance. BUN is at 36 with a creatinine of 1.8 and sodium levels of 138. There was positive for 0.4 with a hemoglobin of 9.7. The patient remains on 3 L O2 nasal cannula with a pulse ox 97%. The patient is utilizing BiPAP overnight. No other significant issues otherwise for now.Fluid balance over the past 24 hours has been -8.6 L and the patient is another 6.1 L negative since yesterday. On today's evaluation of 12/27/2022, the patient is stable. No complaints. Continues to diurese. Blood work shows a BUN of 32 with a creatinine of 1.6. Sodium is at 137 with a potassium level of 4.7. Significantly negative fluid balance and the patient has been 6.1 L negative for yesterday and she has had it for another negative fluid balance of 5.4 L. The patient remains on oxygen at 3 L with a pulse ox of 99% On 12/28/2022, the patient is stable and adequately diuresed. The patient remains on IV Lasix and consider the patient is going to be switched to oral Lasix. The fluid balance has been negative another 3.6 L over the past 24 hours, the patient is slow down in the diuretics. No new labs are available from today. She remains on 3 L of O2 nasal cannula Objective - Vital Signs Vital signs: Vital Signs Temp 97.9 F 12/28/22 12:00 Pulse 69 12/28/22 12:00 Resp 20 12/28/22 12:00 BP 133/84 12/28/22 12:00 Pulse Ox 99 12/28/22 12:00 FiO2 50 12/28/22 08:38 Intake & Output 12/27/22 12/28/22 12/28/22 18:59 06:59 18:59 Intake Total 596 180 Output Total 2525 1700 600 Balance -1929 -1699 -420 Weight 190.509 kg Intake: Oral 596 180 Output: Urine 2525 1700 600 Other: Voiding Method Indwelling Catheter Indwelling Catheter External Catheter - Exam No acute distress, oriented 3. Currently on 3 L O2 nasal cannula HEENT examination is grossly unremarkable. Neck supple. Full range of motion. No adenopathy thyromegaly or neck vein distention. Cardiovascular examination reveals regular rhythm rate. S1-S2 normal. No S3 or S4. No discernible murmur noted. Heart sounds are distant. Lungs reveal scattered rhonchi and crackles. Breath sounds equal. No wheezes. Abdomen soft bowel sounds are heard. No masses or tenderness. Extremities are intact. No cyanosis or clubbing. 1+ edema is noted. Skin is without rash or lesion. Neurologic examination is brief but nonfocal. - Labs CBC & Chem 7: 12/26/22 07:21 12/27/22 07:23 Assessment and Plan Plan: Acute on chronic hypoxic respiratory failure probably related to a combination of fluid overload and acute exacerbation of diastolic congestive heart failure. The patient is currently on 3 L of oxygen by nasal cannula. The patient is being diuresed. The patient is being supported with BiPAP overnight. Condition is stable and essentially improving as the patient is being diuresed on a regular basis and she has been in negative fluid balance and she's esponding to diuretics Patient has a component of chronic hypoxic respiratory failure related to her morbid obesity and obesity/hypoventilation syndrome. She has obstructive sleep apnea in which she is noncompliant with her CPAP or BiPAP at home. She does wear 3 L nasal cannula at home, mostly at night. Acute on top of chronic kidney injury, improving and the creatinine is 1.6 History of ventilatory dependent respiratory failure. Left upper extremity swelling. Morbid obesity. Hypertension. CAD. Chronic kidney disease stage IV. Chronic anemia. Lymphedema. History DVT. History of SVT. Nonsmoker. . Plan: Clinically stable Adequately diuresed May be able to switch to oral Lasix Renal function is stable and the creatinine is at 1.6, rest of the electrodes are stable The patient has had intolerance to 6 L negative fluid balance over the next 24 hours Clinically stable Continues to be in negative fluid balance Continues to have signs of fluid overload and the patient remains on Lasix 40 mg every 12 hours and she is producing adequate urine output Electrolytes are stable Continue BiPAP overnight at a pressure of 12/5 cm of water and FiO2 of 40% O2 at 2 L during the day Monitor renal function the creatinine is down to 1.6 Possible discharge today or within next 24 hours
--- NOTE | 2022-12-28 15:10 | P.PN ---
Subjective Patient is seen for follow-up for chronic kidney disease. Baseline creatinine around 1.8-2 mg/dL. Patient is currently being diuresed Dose of Lasix has been increased and patient has responded well with improving edema and increased urine output. 24 hour urine output documented at 4.2 L. Denies SOB, over all feeling better. Objective - Vital Signs Vital signs: Vital Signs Temp 97.9 F 12/28/22 12:00 Pulse 69 12/28/22 12:00 Resp 20 12/28/22 12:00 BP 133/84 12/28/22 12:00 Pulse Ox 99 12/28/22 12:00 FiO2 50 12/28/22 08:38 Intake & Output 12/27/22 12/28/22 12/28/22 18:59 06:59 18:59 Intake Total 596 960 Output Total 2525 1700 600 Balance -1929 -1700 360 Weight 190.509 kg Intake: Oral 596 960 Output: Urine 2525 1700 600 Other: Voiding Method Indwelling Catheter Indwelling Catheter External Catheter - Exam Patient is awake, comfortable, no acute distress Examination of the heart S1 and S2 Examination of the lungs bilateral breath sounds are heard. Distant due to body habitus Abdomen is soft morbidly obese Examination lower extremity shows chronic edema, improved much WASHERY ENGINEER exam grossly intact - Labs CBC & Chem 7: 12/26/22 07:21 12/27/22 07:23 Labs: Abnormal Lab Results - Last 24 Hours (Table) 12/28/22 Range/Units 13:19 Troponin I 0.043 H* (0.000-0.034) ng/mL Assessment and Plan Assessment: 1. Chronic kidney disease stage IIIB secondary to cardiorenal syndrome. Baseline creatinine near 2. Renal function close to baseline. 2. Acute on chronic diastolic CHF. 3. Volume overload. 4. Hypertension with chronic kidney disease. 5. Anemia of chronic kidney disease. Iron deficiency noted. Status post IV iron Plan: OK to discharge pt on 80 mg bid. F/u as op Repeat labs as op.
[2022-12-28 16:48] VITALS: BP 140/83; PULSE 67; RESP 18; TEMP 97.7
--- NOTE | 2022-12-31 19:28 | P.DS ---
Providers Date of admission: 12/19/22 00:28 Expected date of discharge: 12/28/22 Attending physician: Kevin Stanford Consults: 12/19/22 13:57 Consult Physician Urgent Consulting Provider: Kem Prabhakar Consult Reason/Comments: altered mental status Do you want consulting provider notified?: Yes 12/19/22 14:02 Consult Physician Urgent Consulting Provider: Robert Jorgensen Consult Reason/Comments: labored breathing, chf, fluid overload Do you want consulting provider notified?: Yes 12/19/22 14:03 Consult Physician Urgent Consulting Provider: Abraham Florence Consult Reason/Comments: CHF Do you want consulting provider notified?: Yes 12/19/22 14:04 Consult Physician Urgent Consulting Provider: Lance Angulo Consult Reason/Comments: CHF, fluid overload Do you want consulting provider notified?: Yes Primary care physician: Kevin Stanford Hospital Course: Final diagnosis Acute on chronic congestive heart failure with diastolic dysfunction, acute exacerbation Chronic hypoxic respiratory failure, chronically wears 3 L oxygen outpatient History of cardiomyopathy History of chronic kidney disease stage IV Chronic anemia most likely secondary to chronic kidney disease History of DVT Hypertension history Coronary artery disease Morbid obesity with a BMI of 67.2 Generalized weakness with gait dysfunction Morbid obesity with obesity/hypoventilation syndrome with sleep apnea, obstructive GI prophylaxis DVT prophylaxis Full code Discharge disposition Patient is being discharged in a stable condition with guarded prognosis to home with home care. Patient will follow-up with Dr. Stanford in the outpatient setting upon discharge. Patient is to continue on current medications as mentioned below along with close outpatient follow-up with cardiology and nephrology as scheduled. Recommend repeat labs in the next few days to monitor kidney functions and prescriptions were provided. Total time taken is greater than 35 minutes. Hospital course This is a 47-year-old female who was recently admitted with worsening shortness of breath and CHF exacerbation. Cardiology following closely patient was maintained on diuresis along with nephrology following as patient does have impaired kidney functions and diuresis with IV Lasix showing some improvement with significant volume loss. Patient will continue on Lasix 80 mg twice daily with close outpatient follow-up in the next week with labs in the next few days. Patient with significant weakness although has no days remaining to go to rehab and will be going back to stay with her mother and will have home care arranged. Patient to follow-up outpatient with primary care provider and also to continue with weight loss. Patient has been cleared by consultations. Please refer to other consultation notes for further HPI. Currently no reports of chest pain, shortness of breath, or palpitations. Patient is afebrile. No reports of nausea or vomiting and patient is tolerating diet. Patient will be discharged home today. Guarded prognosis. Physical exam: Gen: This is a 47-year-old female is awake, alert and oriented 3, well- developed, well-nourished, morbidly obese HEENT: Head is atraumatic, normocephalic. Pupils equal, round. Sclerae is anicteric. NECK: Supple. No JVD. No lymphadenopathy. No thyromegaly. LUNGS: Diminished breath sounds bilaterally with no wheezes or rhonchi. No intercostal retractions. HEART: Regular rate and rhythm. No murmur. ABDOMEN: Soft. Obese Bowel sounds are present. No masses. No tenderness. EXTREMITIES: No pedal edema. No calf tenderness. NEUROLOGICAL: Patient is awake, alert and oriented x3. Cranial nerves 2 through 12 are grossly intact. Diffusely weak Please refer to medication reconciliation sheet for a list of medications. The impression and plan of care has been dictated by Clare Palmer, Nurse Practitioner as directed. Dr. Rosemary MD I have performed a history and examination and MDM of this patient, discussed the same with the dictator, and agree with the dictator's assessment and plan as written ,documented as a scribe. Based on total visit time, I have performed more than 50% of the visit. Patient Condition at Discharge: Stable Plan - Discharge Summary Discharge Rx Participant: No New Discharge Prescriptions: New carvediloL [Coreg] 50 mg PO BID #120 tablet acetaZOLAMIDE [Diamox] 250 mg PO DAILY 30 Days #30 tab Folic Acid 1 mg PO DAILY #30 tab Psyllium Husk 100% [Metamucil Packet] 6 gm PO TID #90 packet Nystatin 100,000 Unit/gm Powd [Mycostatin Powder] 1 applic TOPICAL BID 30 Days #2 each NIFEdipine XL [Procardia XL] 90 mg PO 1200 #30 tab Continue Omeprazole 20 mg PO DAILY Aspirin 81 mg PO DAILY Magnesium Oxide [Mag-Ox] 400 mg PO BID Acetaminophen Tab [Tylenol] 650 mg PO Q6H PRN PRN Reason: Fever And/ Or Pain Changed Furosemide [Lasix] 80 mg PO BID #60 tab Discontinued hydrALAZINE HCL [Apresoline] 100 mg PO TID Spironolactone [Aldactone] 25 mg PO DAILY minoxidiL [Loniten] 10 mg PO DAILY Metoprolol Tartrate [Lopressor] 100 mg PO BID cloNIDine HCL [Catapres] 0.3 mg PO TID Discharge Medication List Omeprazole 20 mg PO DAILY 11/05/17 [History] Acetaminophen Tab [Tylenol] 650 mg PO Q6H PRN 12/19/22 [History] Aspirin 81 mg PO DAILY 12/19/22 [History] Magnesium Oxide [Mag-Ox] 400 mg PO BID 12/19/22 [History] Folic Acid 1 mg PO DAILY #30 tab 12/28/22 [Rx] Furosemide [Lasix] 80 mg PO BID #60 tab 12/28/22 [Rx] NIFEdipine XL [Procardia XL] 90 mg PO 1200 #30 tab 12/28/22 [Rx] Nystatin 100,000 Unit/gm Powd [Mycostatin Powder] 1 applic TOPICAL BID 30 Days #2 each 12/28/22 [Rx] Psyllium Husk 100% [Metamucil Packet] 6 gm PO TID #90 packet 12/28/22 [Rx] acetaZOLAMIDE [Diamox] 250 mg PO DAILY 30 Days #30 tab 12/28/22 [Rx] carvediloL [Coreg] 50 mg PO BID #120 tablet 12/28/22 [Rx] Follow up Appointment(s)/Referral(s): Kevin Stanford MD [Primary Care Provider] - 12/31/22 10:50 am Diamond Escobedo MD [STAFF PHYSICIAN] - 01/17/23 2:00 pm Ambulatory/Diagnostic Orders: Complete Blood Count w/diff [LAB.AMB] Time Frame: 3 Days, Location: None Selected Patient Instructions/Handouts: Heart Failure (GEN), Community Acquired Pneumonia (GEN) Activity/Diet/Wound Care/Special Instructions: Activity Limited until follow-up Follow-up with primary care provider and discharge Follow-up with primary care provider this week Follow-up nephrology outpatient 1-2 weeks Continue taking medications as prescribed Continue with home care and rehab possibly in the home care Continue heart healthy diet Discharge Disposition: HOME WITH HOME HEALTH SERVICES
--- NOTE | 2023-01-01 17:04 | CDI ---
Documentation Clarification Form Date: 01/01/2023 4:45:06 PM From: Lissy Payan Admit Date: 12/19/2022 12:28:00 AM Patient Name: Ankita Sorto Visit Number: [id number] Discharge Date: 12/28/2022 10:12:00 PM ATTENTION: The Clinical Documentation Specialists (CDI) and [facility] Coding Staff appreciate your assistance in clarifying documentation. Please respond to the clarification below the line at the bottom and electronically sign. The CDI & [facility] Coding staff will review the response and follow-up if needed. Please note: Queries are made part of the Legal Health Record. If you have any questions, please contact the author of this message via ITS. Dr. Kevin Stanford Conflicting documentation has been found in the medical record. Your patient has the documented diagnosis of Acute on Chronic CHF with diastolic dysfunction, and Congestive heart failure related to heart failure with reduced ejection fraction. Additional information regarding the type of CHF is requested. History/Risk Factors: patient is a 47 year old female who has a hx of HTN, CKD stage 4, Chronic respiratory failure, BMI greater than 60, cardiomyopathy, and CHF. Clinical Indicators: acute on chronic congestive heart failure, fluid overload, hypervolemia, severe bilateral lower extremity edema, diminished breath sounds bilaterally, Acute on chronic hypoxic respiratory failure. VS/Pulse OX: Pulse: 104, Resp: 24, BP: 95/44, O2: 86 placed on oxygen 6L via NC, Bipap at night BNP: 12,500 Echocardiogram Results: 12/19/22: technical difficult study for interpretation. It is difficult to comment on the EF. The EF is probably impaired and appeared to be in the range of 30-35% Echo From October 2021 EF 45-50%, Echo from June 2022, EF 55-60% Chest X Ray: Suspect cardiomegaly and some interstitial changes. Rotated exam essentially nondiagnostic Treatment: IV Lasix, empirical IV antibiotics, oxygen, bipap In your professional opinion, can you please clarify the type of CHF if known? [ ] Acute on Chronic Systolic Heart Failure (reduced EF) [ ] Acute on Chronic Diastolic Heart Failure (preserved EF) [ ] Acute on Chronic Heart Failure Systolic & Diastolic Heart Failure [ ] Other, please specify [ ] Unable to determine MTDD
== END 2022-12-28 22:12 | disposition home health service (06) | DRG 194 ==
LOC: EC 20:39 → 5NMEDONC 12-19 00:28 → 3SCARD 12-19 19:42
PROVIDERS: ADMIT Family Medicine; ATTEND Family Medicine
PROC: 5A09357 Assistance with Respiratory Ventilation, Less than 24 Consecutive Hours, Continuous Positive Airway Pressure (ICD-10-PCS; principal; 2022-12-20)
DX: I13.0 Hypertensive heart and chronic kidney disease with heart failure and stage 1 through stage 4 chronic kidney disease, or unspecified chronic kidney disease (principal); G92.8 Other toxic encephalopathy; J96.21 Acute and chronic respiratory failure with hypoxia; Z68.44 Body mass index [BMI] 60.0-69.9, adult; N18.4 Chronic kidney disease, stage 4 (severe); N17.9 Acute kidney failure, unspecified; I50.33 Acute on chronic diastolic (congestive) heart failure; I42.9 Cardiomyopathy, unspecified; W06.XXXA Fall from bed, initial encounter; I25.10 Atherosclerotic heart disease of native coronary artery without angina pectoris; Y92.019 Unspecified place in single-family (private) house as the place of occurrence of the external cause; M17.0 Bilateral primary osteoarthritis of knee; M79.3 Panniculitis, unspecified; J44.9 Chronic obstructive pulmonary disease, unspecified; K44.9 Diaphragmatic hernia without obstruction or gangrene; R22.32 Localized swelling, mass and lump, left upper limb; J98.11 Atelectasis; K57.90 Diverticulosis of intestine, part unspecified, without perforation or abscess without bleeding; R15.9 Full incontinence of feces; R32 Unspecified urinary incontinence; I89.0 Lymphedema, not elsewhere classified; D63.1 Anemia in chronic kidney disease; T50.1X5A Adverse effect of loop [high-ceiling] diuretics, initial encounter; E61.1 Iron deficiency; E66.2 Morbid (severe) obesity with alveolar hypoventilation; R77.8 Other specified abnormalities of plasma proteins; F41.0 Panic disorder [episodic paroxysmal anxiety]; G62.9 Polyneuropathy, unspecified; F41.9 Anxiety disorder, unspecified; Z91.199 Patient's noncompliance with other medical treatment and regimen due to unspecified reason; Z99.81 Dependence on supplemental oxygen; Z71.3 Dietary counseling and surveillance; Z86.718 Personal history of other venous thrombosis and embolism; Z79.899 Other long term (current) drug therapy; Z79.82 Long term (current) use of aspirin; Z87.440 Personal history of urinary (tract) infections
CPT/HCPCS: 71045; 74177; 80048; 80053; 81001; 82728; 82803; 83540; 83550; 83605; 83690; 83735; 83880; 84145; 84484; 85025; 85610; 85730; 93005; 93306; 94660; 94760; 96365; 96366; 96368; 96375; 96376; 99285

== ENCOUNTER 2023-03-06 13:35 | Inpatient (IN) | payer OTHER ==
--- NOTE | 2023-03-06 14:57 | XR ---
EXAMINATION TYPE: XR chest 1V DATE OF EXAM: 03/06/2023 2:52 PM COMPARISON: Chest radiographs from 12/28/2022 TECHNIQUE: XR chest 1V Frontal view of the chest. CLINICAL INDICATION:Female, 47 years old with history of difficulty breathing; FINDINGS: Lungs/Pleura: No pneumothorax or pleural effusion. Multifocal patchy airspace opacities throughout th e left lung and right lung base. Heart/mediastinum: Cardiomediastinal silhouette is enlarged and stable. Musculoskeletal: No acute osseous pathology. IMPRESSION: Cardiomegaly with multifocal patchy airspace opacities throughout the left lung and right lung base c onsistent for pneumonia and/or pulmonary edema.
[2023-03-06 16:09] LABS: INR 1.1 (<1.2); Prothrombin Time 11.8 sec (9.0-12.0)
[2023-03-06 16:15] LABS: Anisocytosis Slight; HCT 40.2 % (34.0-46.0); HGB 11.2 gm/dL (11.4-16.0); Hypochromasia Marked; MCH 23.5 pg (25.0-35.0); MCHC 27.9 g/dL (31.0-37.0); MCV 84.2 fL (80.0-100.0); Mean Platelet Volume 10.7; Microcytosis Slight; Platelet Count 175 k/uL (150-450); Poikilocytosis Slight; RBC 4.77 m/uL (3.80-5.40); RDW 18.5 % (11.5-15.5)
[2023-03-06 16:35] LABS: Eosinophils # (M) 0.06 k/uL (0-0.7); Lymphocytes # (M) 0.32 k/uL (1.0-4.8); Monocytes # (M) 0.58 k/uL (0-1.0); Neutrophils # (M) 5.44 k/uL (1.3-7.7); Neutrophils % (M) 85 %; Nucleated Red Blood Cells 2 /100 WBC (0-0); Polychromasia Present; Total Cells Counted 100; WBC 6.4 k/uL (3.8-10.6)
[2023-03-06 16:36] LABS: Large Platelets Present; Toxic Vacuolation Present
[2023-03-06 16:38] LABS: ALT 13 U/L (4-34); AST 19 U/L (14-36); African American GFR (CKD) 32 (>60 ml/min/1.73 sqM); Albumin 3.8 g/dL (3.5-5.0); Alkaline Phosphatase 92 U/L (38-126); Anion Gap 9 mmol/L; Blood Urea Nitrogen 28 mg/dL (7-17); Calcium 8.9 mg/dL (8.4-10.2); Carbon Dioxide 23 mmol/L (22-30); Chloride 111 mmol/L (98-107); Glucose 84 mg/dL (74-99); Magnesium 2.4 mg/dL (1.6-2.3); Non-African American GFR(CKD) 28 (>60 ml/min/1.73 sqM); Potassium 4.7 mmol/L (3.5-5.1); Sodium 143 mmol/L (137-145); Total Bilirubin 0.7 mg/dL (0.2-1.3)
[2023-03-06 16:44] LABS: Glucose,Whole Blood 74 mg/dL (70-110)
[2023-03-06 17:41] LABS: ABG Base Excess -4.4 mmol/L; ABG HCO3 24 mmol/L (21-25); ABG Oxygen Saturation 79.6 % (94-97); ABG PCO2 65 mmHg (35-45); Allen Test Performed? Yes
[2023-03-06] MEDS ORDERED: FUROSEMIDE 10 MG/ML 10 ML VIAL IV STA (17:53)
[2023-03-06 18:12] LABS: ABG PH 7.19 (7.35-7.45)
[2023-03-06 19:40] LABS: ABG Base Excess -3.8 mmol/L; ABG HCO3 24 mmol/L (21-25); ABG PCO2 58 mmHg (35-45); ABG PH 7.22 (7.35-7.45); ABG PO2 62 mmHg (83-108); ABG TCO2 25 mmol/L (19-24); Allen Test Performed? Yes
[2023-03-06] MEDS ORDERED: NITROGLYCERIN OINT 1 INCH/GM PACKET TOPICAL STA (20:05)
[2023-03-06 20:36] LABS: Glucose,Whole Blood 73 mg/dL (70-110)
[2023-03-06] MEDS ORDERED: DEXTROSE 50% SYRINGE 50 ML IVP STA (21:27)
--- NOTE | 2023-03-06 22:07 | ED ---
General Adult HPI - General Chief complaint: Fall Stated complaint: SOB Time Seen by Provider: 03/06/23 13:45 Source: patient, EMS, RN notes reviewed, old records reviewed Mode of arrival: EMS Limitations: no limitations - History of Present Illness Initial comments: This is a 47-year-old female who presents emergency department with past medical history significant for morbid obesity and congestive heart care. Patient today slipped onto the floor was unable to get up on her own so she called EMS when EMS arrived she did mention that she's been more short of breath lately and had to move her oxygen from 3 L to 4 L. Patient stated she didn't want to come in for evaluation. Patient denies any chest pain. Patient any fever chills or cough. Patient denies any crease edema. Patient any abdominal pain patient denies any headache patient with numbness weakness. - Related Data Home Medications Medication Instructions Recorded Confirmed Omeprazole 20 mg PO DAILY 11/05/17 03/06/23 Acetaminophen Tab [Tylenol] 650 mg PO Q6H PRN 12/19/22 03/06/23 Aspirin 81 mg PO DAILY 12/19/22 03/06/23 Magnesium Oxide [Mag-Ox] 400 mg PO DAILY 12/19/22 03/06/23 Baclofen 10 mg PO DAILY 03/06/23 03/06/23 LORazepam [Ativan] 2 mg PO TID PRN 03/06/23 03/06/23 NIFEdipine XL [Procardia XL] 90 mg PO DAILY@1200 03/06/23 03/06/23 cloNIDine HCL [Catapres] 0.3 mg PO TID 03/06/23 03/06/23 Previous Rx's Medication Instructions Recorded Folic Acid 1 mg PO DAILY #30 tab 12/28/22 Furosemide [Lasix] 80 mg PO BID #60 tab 12/28/22 Nystatin 100,000 Unit/gm Powd 1 applic TOPICAL BID 30 Days #2 12/28/22 [Mycostatin Powder] each Psyllium Husk 100% [Metamucil 6 gm PO TID #90 packet 12/28/22 Packet] acetaZOLAMIDE [Diamox] 250 mg PO DAILY 30 Days #30 tab 12/28/22 carvediloL [Coreg] 50 mg PO BID #120 tablet 12/28/22 Allergies Allergy/AdvReac Type Severity Reaction Status Date / Time No Known Allergies Allergy Verified 03/06/23 18:23 Review of Systems ROS Statement: Those systems with pertinent positive or pertinent negative responses have been documented in the HPI. ROS Other: All systems not noted in ROS Statement are negative. Past Medical History Past Medical History: Coronary Artery Disease (CAD), Chest Pain / Angina, Heart Failure, Deep Vein Thrombosis (DVT), Hypertension, Osteoarthritis (OA), Renal Disease, Sleep Apnea/CPAP/BIPAP, Supraventricular Tachycardia (SVT) Additional Past Medical History / Comment(s): Pt recently admitted to [facility] on 07/03/22-07/15/22 with acute pulmonary edema. Other hx: Chronic CHF, home oxygen at 3L/NC prn, NIR/no device, previous ventilator dependent respiratory failure, sinus pauses, CKD stage IV, anemia, lymphedema, arthritis bilateral knees, hiatal hernia, diverticular disease, UTIs, constipation, urine and bowel incontinence. History of Any Multi-Drug Resistant Organisms: VRE Date of last positivie culture/infection: 05/03/20 MDRO Source:: VRE URINE Past Surgical History: Section, Hernia Repair Additional Past Surgical History / Comment(s): adominal hernia repair with mesh, cysts removed from stomach, EGD, colonoscopy Past Anesthesia/Blood Transfusion Reactions: No Reported Reaction Additional Past Anesthesia/Blood Transfusion Reaction / Comment(s): Pt has received blood in the past without reaction. Past Psychological History: Anxiety Smoking Status: Never smoker - Past Family History Father Family Medical History: Congestive Heart Failure (CHF) Additional Family Medical History / Comment(s): Father from CHF. Mother Family Medical History: Cancer, Hypertension, Sleep Apnea/CPAP/BIPAP Additional Family Medical History / Comment(s): Mother has had cancer removed from ear/head. General Exam - General Exam Comments Initial Comments: GENERAL: Patient is well-developed and well-nourished. Patient is nontoxic and well- hydrated and is in mild distress. ENT: Neck is soft and supple. No significant lymphadenopathy is noted. Oropharynx is clear. Moist mucous membranes. Neck has full range of motion without eliciting any pain. EYES: The sclera were anicteric and conjunctiva were pink and moist. Extraocular movements were intact and pupils were equal round and reactive to light. Eyelids were unremarkable. PULMONARY: Patient is crackles bilateral bases CARDIOVASCULAR: There is a regular rate and rhythm without any murmurs gallops or rubs. ABDOMEN: Soft and nontender with normal bowel sounds. SKIN: Skin is clear with no lesions or rashes and otherwise unremarkable. NEUROLOGIC: Patient is alert and oriented x3. Cranial nerves II through XII are grossly intact. Motor and sensory are also intact. Normal speech, volume and content. Symmetrical smile. MUSCULOSKELETAL: Normal extremities with adequate strength and full range of motion. Patient is 2+ swelling bilaterally and angioedema in the left arm which she states is chronic LYMPHATICS: No significant lymphadenopathy is noted PSYCHIATRIC: Normal psychiatric evaluation. Limitations: no limitations Course Vital Signs 03/06/23 03/06/23 03/06/23 13:37 13:45 15:35 Temperature 97.9 F Pulse Rate 94 90 Respiratory 20 20 24 Rate Blood Pressure 163/105 168/98 O2 Sat by Pulse 100 94 L Oximetry Fraction of Inspired Oxygen (FIO2) 03/06/23 03/06/23 03/06/23 16:29 16:44 16:50 Temperature Pulse Rate 88 91 76 Respiratory 24 Rate Blood Pressure 174/84 166/88 165/104 O2 Sat by Pulse 92 L 93 L 93 L Oximetry Fraction of 30 Inspired Oxygen (FIO2) 03/06/23 03/06/23 03/06/23 17:00 17:10 17:20 Temperature Pulse Rate 89 77 79 Respiratory Rate Blood Pressure 173/93 181/110 190/110 O2 Sat by Pulse 91 L 95 Oximetry Fraction of Inspired Oxygen (FIO2) 03/06/23 03/06/23 03/06/23 17:30 17:40 17:50 Temperature Pulse Rate 80 62 75 Respiratory Rate Blood Pressure 150/85 139/81 99/82 O2 Sat by Pulse 93 L 90 L 93 L Oximetry Fraction of 30 Inspired Oxygen (FIO2) 03/06/23 03/06/23 03/06/23 18:00 18:10 18:20 Temperature Pulse Rate 89 83 80 Respiratory Rate Blood Pressure 156/88 168/77 179/106 O2 Sat by Pulse 95 97 97 Oximetry Fraction of Inspired Oxygen (FIO2) 03/06/23 03/06/23 03/06/23 18:30 18:40 18:50 Temperature Pulse Rate 73 75 80 Respiratory Rate Blood Pressure 171/119 185/87 179/91 O2 Sat by Pulse 97 91 L Oximetry Fraction of Inspired Oxygen (FIO2) 06/04/2103/06/23 03/06/23 19:00 19:10 19:20 Temperature Pulse Rate 65 74 93 Respiratory Rate Blood Pressure 181/106 172/131 182/128 O2 Sat by Pulse 94 L Oximetry Fraction of Inspired Oxygen (FIO2) 03/06/23 03/06/23 03/06/23 19:30 19:40 19:45 Temperature Pulse Rate 86 82 Respiratory Rate Blood Pressure 190/125 201/144 O2 Sat by Pulse 96 96 Oximetry Fraction of 50 Inspired Oxygen (FIO2) 03/06/23 03/06/23 03/06/23 19:50 20:00 20:10 Temperature Pulse Rate 50 L 93 88 Respiratory Rate Blood Pressure 186/118 200/101 213/116 O2 Sat by Pulse 98 99 99 Oximetry Fraction of Inspired Oxygen (FIO2) 03/06/23 03/06/23 03/06/23 20:20 20:30 20:40 Temperature Pulse Rate 90 87 80 Respiratory Rate Blood Pressure 194/119 217/106 164/142 O2 Sat by Pulse 83 L 82 L 99 Oximetry Fraction of Inspired Oxygen (FIO2) 03/06/23 03/06/23 03/06/23 20:47 20:50 21:00 Temperature Pulse Rate 79 80 78 Respiratory 20 Rate Blood Pressure 140/54 140/54 124/89 O2 Sat by Pulse 98 96 98 Oximetry Fraction of Inspired Oxygen (FIO2) 03/06/23 03/06/23 03/06/23 21:10 21:11 21:12 Temperature Pulse Rate 98 90 93 Respiratory Rate Blood Pressure 127/85 177/115 177/115 O2 Sat by Pulse 100 95 Oximetry Fraction of Inspired Oxygen (FIO2) 03/06/23 03/06/23 03/06/23 21:14 21:16 21:18 Temperature Pulse Rate 90 81 89 Respiratory Rate Blood Pressure 192/138 O2 Sat by Pulse 88 L 94 L Oximetry Fraction of Inspired Oxygen (FIO2) 03/06/23 03/06/23 03/06/23 21:20 21:22 21:24 Temperature Pulse Rate 80 96 98 Respiratory Rate Blood Pressure 191/130 O2 Sat by Pulse 94 L 94 L Oximetry Fraction of Inspired Oxygen (FIO2) 03/06/23 03/06/23 03/06/23 21:26 21:28 21:30 Temperature Pulse Rate 87 87 80 Respiratory Rate Blood Pressure 148/108 O2 Sat by Pulse 94 L Oximetry Fraction of Inspired Oxygen (FIO2) 03/06/23 03/06/23 03/06/23 21:32 21:34 21:36 Temperature Pulse Rate 81 79 82 Respiratory Rate Blood Pressure 171/100 O2 Sat by Pulse 95 Oximetry Fraction of Inspired Oxygen (FIO2) 03/06/23 03/06/23 03/06/23 21:38 21:40 21:42 Temperature Pulse Rate 83 82 85 Respiratory Rate Blood Pressure 134/90 136/86 O2 Sat by Pulse 99 Oximetry Fraction of Inspired Oxygen (FIO2) 03/06/23 03/06/23 03/06/23 21:44 21:46 21:48 Temperature Pulse Rate 76 79 81 Respiratory Rate Blood Pressure 133/70 O2 Sat by Pulse 94 L 100 Oximetry Fraction of Inspired Oxygen (FIO2) 03/06/23 03/06/23 21:50 21:52 Temperature Pulse Rate 80 80 Respiratory Rate Blood Pressure 120/72 O2 Sat by Pulse 94 L Oximetry Fraction of Inspired Oxygen (FIO2) Medical Decision Making - Medical Decision Making EKG was reviewed by myself. EKG shows sinus rhythm at 91 bpm OK interval 168 QRSs 84 QT interval 376 QTC is 425. Patient's EKG shows no ST segment elevation however it is a poor quality EKG Was pt. sent in by a medical professional or institution (, PA, OFFICE INSPECTOR, urgent care, hospital, or group home...) When possible be specific @ -[No] Did you speak to anyone other than the patient for history (EMS, parent, family, police, friend...)? What history was obtained from this source @ -[No] Did you review nursing and triage notes (agree or disagree)? Why? @ -[I reviewed and agree with nursing and triage notes] Were old charts reviewed (outside hosp., previous admission, EMS record, old EKG, old radiological studies, urgent care reports/EKG's, group home records)? Report findings @ -Ever prior radiological studies and prior charting was reviewed on this patient Differential Diagnosis (chest pain, altered mental status, abdominal pain women, abdominal pain men, vaginal bleeding, weakness, fever, dyspnea, syncope, headache, dizziness, GI bleed, back pain, seizure, CVA, palpatations, mental health, musculoskeletal)? @ -Differential Dyspnea: Coronary syndrome, arrhythmia, tamponade, asthma, COPD, pulmonary embolism, pneumonia, pneumothorax, pulmonary effusion, anaphylaxis, diabetic ketoacidosis, flailed chest, pulmonary contusion, diaphragmatic rupture, anemia, neuromuscular, this is not meant to be an all-inclusive list. EKG interpreted by me (3pts min.). @ -[As above] X-rays interpreted by me (1pt min.). @ -Chest x-ray shows pulmonary edema CT interpreted by me (1pt min.). @ -[None done] U/S interpreted by me (1pt. min.). @ -[None done] What testing was considered but not performed or refused? (CT, X-rays, U/S, labs)? Why? @ -[None] What meds were considered but not given or refused? Why? @ -[None] Did you discuss the management of the patient with other professionals (professionals i.e. , PA, OFFICE INSPECTOR, lab, RT, psych nurse, drug abuse social worker, dairy and food laboratory assistant, teacher, svp chief marketing officer, manager rn case)? Give summary @ -Spoke with Dr. Stanford and Dr. Boswell about this patient Was smoking cessation discussed for >3mins.? @ -[No] Was critical care preformed (if so, how long)? @ -35 minutes Were there social determinants of health that impacted care today? How? (Homelessness, low income, unemployed, alcoholism, drug addiction, transportation, low edu. Level, literacy, decrease access to med. care, snf, rehab)? @ -[No] Was there de-escalation of care discussed even if they declined (Discuss DNR or withdrawal of care, Hospice)? DNR status @ -[No] What co-morbidities impacted this encounter? (DM, HTN, Smoking, COPD, CAD, Cancer, CVA, ARF, Chemo, Hep., AIDS, mental health diagnosis, sleep apnea, morbid obesity)? @ -[None] Was patient admitted / discharged? Hospital course, mention meds given and route, prescriptions, significant lab abnormalities, going to OR and other pertinent info. @ -On initial interview with this patient she was alert and oriented 3 a few hours into her ED course it became more obtunded we put her on BiPAP PG were obtained and BiPAP was adjusted. Patient started to become more alert and was able to answer questions I gave the patient Lasix Nitropaste and talk with Dr. pamela alex admitting to the ICU he agreed I spoke with Dr. Che and he agreed to admit the patient as well. Undiagnosed new problem with uncertain prognosis? @ -[No] Drug Therapy requiring intensive monitoring for toxicity (Heparin, Nitro, Insulin, Cardizem)? @ -[No] Were any procedures done? @ -[No] Diagnosis/symptom? @ -Pulmonary edema Acute, or Chronic, or Acute on Chronic? @ -Acute Uncomplicated (without systemic symptoms) or Complicated (systemic symptoms)? @ -Complicated Side effects of treatment? @ -[No] Exacerbation, Progression, or Severe Exacerbation? @ -[No] Poses a threat to life or bodily function? How? (Chest pain, [place], [place], pneumonia, PE, COPD, DKA, ARF, appy, cholecystitis, CVA, Diverticulitis, Homicidal, Suicidal, threat to staff... and all critical care pts) @ -Yes this could lead to hypoxia and hypercapnia was related to poor perfusion and end organ dysfunction - Lab Data Result diagrams: 03/06/23 15:02 03/06/23 15:02 Lab Results 03/06/23 03/06/23 03/06/23 Range/Units 15:02 15:02 15:02 WBC 6.4 (3.8-10.6) k/uL RBC 4.77 (3.80-5.40) m/uL Hgb 11.2 L (11.4-16.0) gm/dL Hct 40.2 (34.0-46.0) % MCV 84.2 (80.0-100.0) fL MCH 23.5 L (25.0-35.0) pg MCHC 27.9 L (31.0-37.0) g/dL RDW 18.5 H (11.5-15.5) % Plt Count 175 (150-450) k/uL MPV 10.7 Neutrophils % (Manual) 85 % Lymphocytes % (Manual) 5 % Monocytes % (Manual) 9 % Eosinophils % (Manual) 1 % Neutrophils # (Manual) 5.44 (1.3-7.7) k/uL Lymphocytes # (Manual) 0.32 L (1.0-4.8) k/uL Monocytes # (Manual) 0.58 (0-1.0) k/uL Eosinophils # (Manual) 0.06 (0-0.7) k/uL Nucleated RBCs 2 H (0-0) /100 WBC Manual Slide Review Performed Toxic Vacuolation Present Large Platelets Present Polychromasia Present Hypochromasia Marked Poikilocytosis Slight Anisocytosis Slight Microcytosis Slight PT 11.8 (9.0-12.0) sec INR 1.1 (<1.2) APTT 23.0 (22.0-30.0) sec Sample Site ABG pH (7.35-7.45) ABG pCO2 (35-45) mmHg ABG pO2 (83-108) mmHg ABG HCO3 (21-25) mmol/L ABG Total CO2 (19-24) mmol/L ABG O2 Saturation (94-97) % ABG Base Excess mmol/L Brijesh Test FiO2 % Sodium 143 (137-145) mmol/L Potassium 4.7 (3.5-5.1) mmol/L Chloride 111 H (98-107) mmol/L Carbon Dioxide 23 (22-30) mmol/L Anion Gap 9 mmol/L BUN 28 H (7-17) mg/dL Creatinine 2.08 H (0.52-1.04) mg/dL Est GFR (CKD-EPI)AfAm 32 (>60 ml/min/1.73 sqM) Est GFR (CKD-EPI)NonAf 28 (>60 ml/min/1.73 sqM) Glucose 84 (74-99) mg/dL POC Glucose (mg/dL) (70-110) mg/dL POC Glu Assistant Produce Manager ID Plasma Lactic Acid Antony (0.7-2.0) mmol/L Calcium 8.9 (8.4-10.2) mg/dL Magnesium 2.4 H (1.6-2.3) mg/dL Total Bilirubin 0.7 (0.2-1.3) mg/dL AST 19 (14-36) U/L ALT 13 (4-34) U/L Alkaline Phosphatase 92 (38-126) U/L Troponin I (0.000-0.034) ng/mL NT-Pro-B Natriuret Pep pg/mL Total Protein 8.0 (6.3-8.2) g/dL Albumin 3.8 (3.5-5.0) g/dL 03/06/23 03/06/23 03/06/23 Range/Units 15:02 15:02 15:02 WBC (3.8-10.6) k/uL RBC (3.80-5.40) m/uL Hgb (11.4-16.0) gm/dL Hct (34.0-46.0) % MCV (80.0-100.0) fL MCH (25.0-35.0) pg MCHC (31.0-37.0) g/dL RDW (11.5-15.5) % Plt Count (150-450) k/uL MPV Neutrophils % (Manual) % Lymphocytes % (Manual) % Monocytes % (Manual) % Eosinophils % (Manual) % Neutrophils # (Manual) (1.3-7.7) k/uL Lymphocytes # (Manual) (1.0-4.8) k/uL Monocytes # (Manual) (0-1.0) k/uL Eosinophils # (Manual) (0-0.7) k/uL Nucleated RBCs (0-0) /100 WBC Manual Slide Review Toxic Vacuolation Large Platelets Polychromasia Hypochromasia Poikilocytosis Anisocytosis Microcytosis PT (9.0-12.0) sec INR (<1.2) APTT (22.0-30.0) sec Sample Site ABG pH (7.35-7.45) ABG pCO2 (35-45) mmHg ABG pO2 (83-108) mmHg ABG HCO3 (21-25) mmol/L ABG Total CO2 (19-24) mmol/L ABG O2 Saturation (94-97) % ABG Base Excess mmol/L Brijesh Test FiO2 % Sodium (137-145) mmol/L Potassium (3.5-5.1) mmol/L Chloride (98-107) mmol/L Carbon Dioxide (22-30) mmol/L Anion Gap mmol/L BUN (7-17) mg/dL Creatinine (0.52-1.04) mg/dL Est GFR (CKD-EPI)AfAm (>60 ml/min/1.73 sqM) Est GFR (CKD-EPI)NonAf (>60 ml/min/1.73 sqM) Glucose (74-99) mg/dL POC Glucose (mg/dL) (70-110) mg/dL POC Glu Assistant Produce Manager ID Plasma Lactic Acid Antony 1.2 (0.7-2.0) mmol/L Calcium (8.4-10.2) mg/dL Magnesium (1.6-2.3) mg/dL Total Bilirubin (0.2-1.3) mg/dL AST (14-36) U/L ALT (4-34) U/L Alkaline Phosphatase (38-126) U/L Troponin I 0.023 (0.000-0.034) ng/mL NT-Pro-B Natriuret Pep 64071 pg/mL Total Protein (6.3-8.2) g/dL Albumin (3.5-5.0) g/dL 03/06/23 03/06/23 03/06/23 Range/Units 16:42 17:25 19:30 WBC (3.8-10.6) k/uL RBC (3.80-5.40) m/uL Hgb (11.4-16.0) gm/dL Hct (34.0-46.0) % MCV (80.0-100.0) fL MCH (25.0-35.0) pg MCHC (31.0-37.0) g/dL RDW (11.5-15.5) % Plt Count (150-450) k/uL MPV Neutrophils % (Manual) % Lymphocytes % (Manual) % Monocytes % (Manual) % Eosinophils % (Manual) % Neutrophils # (Manual) (1.3-7.7) k/uL Lymphocytes # (Manual) (1.0-4.8) k/uL Monocytes # (Manual) (0-1.0) k/uL Eosinophils # (Manual) (0-0.7) k/uL Nucleated RBCs (0-0) /100 WBC Manual Slide Review Toxic Vacuolation Large Platelets Polychromasia Hypochromasia Poikilocytosis Anisocytosis Microcytosis PT (9.0-12.0) sec INR (<1.2) APTT (22.0-30.0) sec Sample Site Right Radial R radial ABG pH 7.19 L* 7.22 L (7.35-7.45) ABG pCO2 65 H 58 H (35-45) mmHg ABG pO2 62 L (83-108) mmHg ABG HCO3 24 24 (21-25) mmol/L ABG Total CO2 25 H (19-24) mmol/L ABG O2 Saturation 79.6 L 89.0 L (94-97) % ABG Base Excess -4.4 -3.8 mmol/L Brijesh Test Yes Yes FiO2 30 30 % Sodium (137-145) mmol/L Potassium (3.5-5.1) mmol/L Chloride (98-107) mmol/L Carbon Dioxide (22-30) mmol/L Anion Gap mmol/L BUN (7-17) mg/dL Creatinine (0.52-1.04) mg/dL Est GFR (CKD-EPI)AfAm (>60 ml/min/1.73 sqM) Est GFR (CKD-EPI)NonAf (>60 ml/min/1.73 sqM) Glucose (74-99) mg/dL POC Glucose (mg/dL) 74 (70-110) mg/dL POC Glu Assistant Produce Manager ID Con Del Angel Plasma Lactic Acid Antony (0.7-2.0) mmol/L Calcium (8.4-10.2) mg/dL Magnesium (1.6-2.3) mg/dL Total Bilirubin (0.2-1.3) mg/dL AST (14-36) U/L ALT (4-34) U/L Alkaline Phosphatase (38-126) U/L Troponin I (0.000-0.034) ng/mL NT-Pro-B Natriuret Pep pg/mL Total Protein (6.3-8.2) g/dL Albumin (3.5-5.0) g/dL 03/06/23 Range/Units 20:34 WBC (3.8-10.6) k/uL RBC (3.80-5.40) m/uL Hgb (11.4-16.0) gm/dL Hct (34.0-46.0) % MCV (80.0-100.0) fL MCH (25.0-35.0) pg MCHC (31.0-37.0) g/dL RDW (11.5-15.5) % Plt Count (150-450) k/uL MPV Neutrophils % (Manual) % Lymphocytes % (Manual) % Monocytes % (Manual) % Eosinophils % (Manual) % Neutrophils # (Manual) (1.3-7.7) k/uL Lymphocytes # (Manual) (1.0-4.8) k/uL Monocytes # (Manual) (0-1.0) k/uL Eosinophils # (Manual) (0-0.7) k/uL Nucleated RBCs (0-0) /100 WBC Manual Slide Review Toxic Vacuolation Large Platelets Polychromasia Hypochromasia Poikilocytosis Anisocytosis Microcytosis PT (9.0-12.0) sec INR (<1.2) APTT (22.0-30.0) sec Sample Site ABG pH (7.35-7.45) ABG pCO2 (35-45) mmHg ABG pO2 (83-108) mmHg ABG HCO3 (21-25) mmol/L ABG Total CO2 (19-24) mmol/L ABG O2 Saturation (94-97) % ABG Base Excess mmol/L Brijesh Test FiO2 % Sodium (137-145) mmol/L Potassium (3.5-5.1) mmol/L Chloride (98-107) mmol/L Carbon Dioxide (22-30) mmol/L Anion Gap mmol/L BUN (7-17) mg/dL Creatinine (0.52-1.04) mg/dL Est GFR (CKD-EPI)AfAm (>60 ml/min/1.73 sqM) Est GFR (CKD-EPI)NonAf (>60 ml/min/1.73 sqM) Glucose (74-99) mg/dL POC Glucose (mg/dL) 73 (70-110) mg/dL POC Glu Assistant Produce Manager ID Jovana Delacruz Plasma Lactic Acid Antony (0.7-2.0) mmol/L Calcium (8.4-10.2) mg/dL Magnesium (1.6-2.3) mg/dL Total Bilirubin (0.2-1.3) mg/dL AST (14-36) U/L ALT (4-34) U/L Alkaline Phosphatase (38-126) U/L Troponin I (0.000-0.034) ng/mL NT-Pro-B Natriuret Pep pg/mL Total Protein (6.3-8.2) g/dL Albumin (3.5-5.0) g/dL Critical Care Time Critical Care Time: Yes Total Critical Care Time: 35 Disposition Clinical Impression: Acute pulmonary edema, Hypercarbia Disposition: ADMITTED IP TO THIS HOSP Referrals: Kevin Stanford MD [Primary Care Provider] - 1-2 days Time of Disposition: 22:06
[2023-03-06] MEDS ORDERED: FUROSEMIDE 10 MG/ML 4 ML VIAL IV SCH (22:15)
[2023-03-06 23:06] LABS: Glucose,Whole Blood 77 mg/dL (70-110)
[2023-03-07] MEDS ORDERED: NITROGLYCERIN OINT 1 INCH/GM PACKET TOPICAL SCH
[2023-03-07 00:08] LABS: Glucose,Whole Blood 82 mg/dL (70-110)
[2023-03-07] MEDS ORDERED: MORPHINE SULFATE 2 MG/ML SYRINGE IVP PRN (01:18)
[2023-03-07] MEDS ORDERED: NALOXONE 0.4 MG/ML 1 ML VIAL IV PRN (01:22)
[2023-03-07] MEDS: NITROGLYCERIN-D5W PMX 50 MG in DEXTROSE/WATER 1 250ML.BAG IV SCH (01:39)
[2023-03-07] MEDS: FUROSEMIDE 10 MG/ML 4 ML VIAL IV SCH ×4 (01:40→23:48)
--- NOTE | 2023-03-07 03:31 | P.CNPUL ---
History of Present Illness Consult date: 03/07/23 Requesting physician: Adal Danielson Reason for consult: other (ICU management) Chief complaint: Shortness of breath History of present illness: I am seeing this patient in new consultation today 03/07/2023 for suspected CHF exacerbation and hypertensive urgency. Patient is a 47-year-old - Nepalese female with past medical history significant for CHF, hypertension, morbid obesity, obstructive sleep apnea without CPAP, home O2 3 L nasal cannula mostly at night, previous ventilator dependent respiratory failure, hypertension, chronic kidney disease stage IV, left upper extremity lymphedema, anemia, and frequent urinary tract infections. Patient also had a recent hospitalization back in November for similar symptoms of CHF exacerbation and fluid overload. Patient came in to the emergency room yesterday afternoon reporting progressive shortness of breath since Saturday. She is chronically oxygen dependent on 3 L/m nasal cannula, but has been increasing her flow rate to 4 L/m. She is also reporting associated increased lower extremity edema. She states that she has been taking her diuretics and is urinating. Apparently, yesterday she was short of breath, tried to get up, and "slipped". She did call EMS, and was transferred to the emergency room. Initial ABG shows hypercapnic respiratory failure with a pCO2 of 65 and pH of 7.19, and she was placed on BiPAP. Chest x-ray on arrival shows cardiomegaly with multifocal patchy airspace opacities throughout bilateral lungs consistent with pulmonary edema and/or pneumonia. She denies any fever, chills, cough, chest pain, hemoptysis. She is currently in the intensive care unit, on BiPAP with settings 14/6 and FiO2 of 50%, and she is fairly comfortable. Repeat ABGs show a pO2 of 62, pCO2 of 58, and pH of 7.22. CBC on arrival was unremarkable, did not show any leukocytosis. BMP shows a sodium 143, potassium 4.7, chloride 111, serum CO2 23, BUN 28, creatinine 2.08, glucose 84. LFTs were not elevated. Troponin was 0.023. No obvious ECG evidence of ischemia. NT proBNP was elevated at 11,300. She did receive a dose of 80 mg of Lasix in the emergency room. She does have a Colon catheter, and already has a -2 L fluid balance. Her blood pressure is severely hypertensive, and last reading was 190/144 mmhg. she reports being compliant with her home antihypertensives. Patient will remain on the BiPAP at least overnight, and be monitored in the intensive care unit. Review of Systems REVIEW OF SYSTEMS: CONSTITUTIONAL: He does not weigh herself, and is unsure of how much weight she is gaining EYES: Denies change in vision. EARS, NOSE, MOUTH, THROAT: Denies headaches, denies sore throat. CARDIOVASCULAR: Denies chest pain, palpitations or syncopal episodes. Admits to increased lower extremity swelling and orthopnea RESPIRATORY: Denies cough, congestion or hemoptysis. Admits to shortness of breath as described in HPI GASTROINTESTINAL: Denies change in appetite, abdominal pain, nausea and vomiting, or diarrhea GENITOURINARY: Denies hematuria, denies infections. MUSKULOSKELETAL: Denies pain. INTEGUMENTARY: Denies rash, denies eczema. NEUROLOGICAL: Denies recent memory loss, no recent seizure activity. PSYCHIATRIC: Denies anxiety, denies depression. HEMATOLOGIC/LYMPHATIC: Denies anemia, denies enlarged lymph node Past Medical History Past Medical History: Coronary Artery Disease (CAD), Chest Pain / Angina, Heart Failure, Deep Vein Thrombosis (DVT), Hypertension, Osteoarthritis (OA), Renal Di sease, Sleep Apnea/CPAP/BIPAP, Supraventricular Tachycardia (SVT) Additional Past Medical History / Comment(s): Pt recently admitted to [facility] on 07/03/22-07/15/22 with acute pulmonary edema. Other hx: Chronic CHF, home oxygen at 3L/NC prn, NIR/no device, previous ventilator dependent respiratory failure, sinus pauses, CKD stage IV, anemia, lymphedema, arthritis bilateral knees, hiatal hernia, diverticular disease, UTIs, constipation, urine and bowel incontinence. History of Any Multi-Drug Resistant Organisms: VRE Date of last positivie culture/infection: 05/03/20 MDRO Source:: VRE URINE Past Surgical History: Section, Hernia Repair Additional Past Surgical History / Comment(s): adominal hernia repair with mesh, cysts removed from stomach, EGD, colonoscopy Past Anesthesia/Blood Transfusion Reactions: No Reported Reaction Additional Past Anesthesia/Blood Transfusion Reaction / Comment(s): Pt has received blood in the past without reaction. Smoking Status: Never smoker - Past Family History Father Family Medical History: Congestive Heart Failure (CHF) Additional Family Medical History / Comment(s): Father from CHF. Mother Family Medical History: Cancer, Hypertension, Sleep Apnea/CPAP/BIPAP Additional Family Medical History / Comment(s): Mother has had cancer removed from ear/head. Medications and Allergies Home Medications Medication Instructions Recorded Confirmed Type Omeprazole 20 mg PO DAILY 11/05/17 03/06/23 History Acetaminophen Tab [Tylenol] 650 mg PO Q6H PRN 12/19/22 03/06/23 History Aspirin 81 mg PO DAILY 12/19/22 03/06/23 History Magnesium Oxide [Mag-Ox] 400 mg PO DAILY 12/19/22 03/06/23 History Folic Acid 1 mg PO DAILY #30 tab 12/28/22 03/06/23 Rx Furosemide [Lasix] 80 mg PO BID #60 tab 12/28/22 03/06/23 Rx Nystatin 100,000 Unit/gm Powd 1 applic TOPICAL BID 30 Days #2 12/28/22 03/06/23 Rx [Mycostatin Powder] each Psyllium Husk 100% [Metamucil 6 gm PO TID #90 packet 12/28/22 03/06/23 Rx Packet] acetaZOLAMIDE [Diamox] 250 mg PO DAILY 30 Days #30 tab 12/28/22 03/06/23 Rx carvediloL [Coreg] 50 mg PO BID #120 tablet 12/28/22 03/06/23 Rx Baclofen 10 mg PO DAILY 03/06/23 03/06/23 History LORazepam [Ativan] 2 mg PO TID PRN 03/06/23 03/06/23 History NIFEdipine XL [Procardia XL] 90 mg PO DAILY@1200 03/06/23 03/06/23 History cloNIDine HCL [Catapres] 0.3 mg PO TID 03/06/23 03/06/23 History Allergies Allergy/AdvReac Type Severity Reaction Status Date / Time No Known Allergies Allergy Verified 03/06/23 18:23 Physical Exam Vitals: Vital Signs Temp Pulse Resp BP Pulse Ox FiO2 03/07/23 02:00 80 17 183/92 98 03/07/23 01:45 81 17 200/151 100 03/07/23 01:30 81 16 190/144 98 03/07/23 01:15 81 20 190/115 99 03/07/23 01:00 80 29 H 199/134 98 03/07/23 00:45 81 26 H 199/110 100 03/07/23 00:40 50 03/07/23 00:30 87 25 H 100 03/07/23 00:15 90 13 171/125 100 03/07/23 00:07 90 50 H 202/114 100 03/07/23 00:06 96.8 F L 87 26 H 202/114 98 03/06/23 23:42 51 L 167/116 03/06/23 23:16 74 20 169/90 95 03/06/23 22:50 87 03/06/23 22:48 84 159/84 03/06/23 22:46 86 03/06/23 22:44 90 03/06/23 22:42 85 157/100 93 L 03/06/23 22:40 87 97 03/06/23 22:38 81 148/95 95 03/06/23 22:36 84 93 L 03/06/23 22:34 88 97 03/06/23 22:32 88 144/85 95 03/06/23 22:30 86 92 L 03/06/23 22:28 89 95 03/06/23 22:26 85 141/93 97 03/06/23 22:24 87 99 03/06/23 22:22 89 147/76 94 L 03/06/23 22:20 91 92 L 03/06/23 22:18 92 162/107 91 L 03/06/23 22:16 106 H 03/06/23 22:14 78 136/117 92 L 03/06/23 22:12 90 136/117 03/06/23 22:10 93 03/06/23 22:08 89 144/84 03/06/23 22:06 76 94 L 03/06/23 22:04 84 94 L 03/06/23 22:02 85 118/68 100 03/06/23 22:00 79 98 03/06/23 21:58 81 95 03/06/23 21:56 81 115/62 03/06/23 21:54 80 120/72 100 03/06/23 21:52 80 120/72 94 L 03/06/23 21:50 80 03/06/23 21:48 81 133/70 100 03/06/23 21:46 79 03/06/23 21:44 76 94 L 03/06/23 21:42 85 136/86 03/06/23 21:40 82 03/06/23 21:38 83 134/90 99 03/06/23 21:36 82 03/06/23 21:34 79 03/06/23 21:32 81 171/100 95 03/06/23 21:30 80 94 L 03/06/23 21:28 87 148/108 03/06/23 21:26 87 03/06/23 21:24 98 191/130 03/06/23 21:22 96 94 L 03/06/23 21:20 80 94 L 03/06/23 21:18 89 192/138 03/06/23 21:16 81 94 L 03/06/23 21:14 90 03/06/23 21:12 93 177/115 95 03/06/23 21:11 90 177/115 03/06/23 21:10 98 127/85 100 03/06/23 21:00 78 124/89 98 03/06/23 20:50 80 140/54 96 03/06/23 20:47 79 20 140/54 98 03/06/23 20:40 80 164/142 99 03/06/23 20:30 87 217/106 03/06/23 20:20 90 194/119 03/06/23 20:10 88 213/116 99 03/06/23 20:00 93 200/101 99 03/06/23 19:50 50 L 186/118 98 03/06/23 19:45 50 03/06/23 19:40 82 201/144 96 03/06/23 19:30 86 190/125 96 03/06/23 19:20 93 182/128 03/06/23 19:10 74 172/131 03/06/23 19:00 65 181/106 94 L 03/06/23 18:50 80 179/91 03/06/23 18:40 75 185/87 91 L 03/06/23 18:30 73 171/119 97 03/06/23 18:20 80 179/106 97 03/06/23 18:10 83 168/77 97 03/06/23 18:00 89 156/88 95 03/06/23 17:50 75 99/82 93 L 30 03/06/23 17:40 62 139/81 90 L 03/06/23 17:30 80 150/85 93 L 03/06/23 17:20 79 190/110 95 03/06/23 17:10 77 181/110 03/06/23 17:00 89 173/93 91 L 03/06/23 16:50 76 165/104 93 L 30 03/06/23 16:44 91 166/88 93 L 03/06/23 16:29 88 24 174/84 92 L 03/06/23 15:35 90 24 168/98 94 L 03/06/23 13:45 20 03/06/23 13:37 97.9 F 94 20 163/105 100 Intake and Output 03/06/23 03/06/23 03/07/23 14:59 22:59 06:59 Output Total 1100 935 Balance -1100 -935 Output: Urine 1100 935 Other: Voiding Method Indwelling Catheter Weight 204.117 kg 204.117 kg GENERAL EXAM: Alert, severely obese 47-year-old -N[place]alese female, fairly comfortable in no apparent distress on BiPAP. HEAD: Normocephalic and atraumatic EYES: Normal reaction of pupils, equal size. NOSE: Clear with pink turbinates. THROAT: No erythema or exudates. NECK: No masses, no JVD. CHEST: No chest wall deformity. LUNGS: Equal air entry with inspiratory crackles especially at the bases. No wheeze, rhonchi or dullness. On BiPAP with settings 14/6 and FiO2 of 50%. No conversational dyspnea or accessory muscle use.. CVS: S1 and S2 normal with no audible murmur, regular rhythm. No extra heart sounds ABDOMEN: Obese abdomen. No hepatosplenomegaly, active bowel sounds, no guarding or rigidity. SPINE: No scoliosis or deformity SKIN: No rashes CENTRAL NERVOUS SYSTEM: No focal deficits, tone is normal in all 4 extremities. EXTREMITIES: There is 2-3+ bilateral lower extremity edema. There is also left arm and breast edema. No clubbing, or cyanosis. Peripheral pulses are intact. Results - Laboratory Findings CBC and BMP: 03/06/23 15:02 03/06/23 15:02 ABG ABG pH 7.22 (7.35-7.45) L 03/06/23 19:30 ABG pCO2 58 mmHg (35-45) H 03/06/23 19:30 ABG pO2 62 mmHg (83-108) L 03/06/23 19:30 ABG O2 Saturation 89.0 % (94-97) L 03/06/23 19:30 PT/INR, D-dimer PT 11.8 sec (9.0-12.0) 03/06/23 15:02 INR 1.1 (<1.2) 03/06/23 15:02 Abnormal lab findings: Abnormal Labs 03/06/23 03/06/23 03/06/23 15:02 15:02 17:25 Hgb 11.2 L MCH 23.5 L MCHC 27.9 L RDW 18.5 H Lymphocytes # (Manual) 0.32 L Nucleated RBCs 2 H ABG pH 7.19 L* ABG pCO2 65 H ABG pO2 ABG Total CO2 ABG O2 Saturation 79.6 L Chloride 111 H BUN 28 H Creatinine 2.08 H Magnesium 2.4 H 03/06/23 19:30 Hgb MCH MCHC RDW Lymphocytes # (Manual) Nucleated RBCs ABG pH 7.22 L ABG pCO2 58 H ABG pO2 62 L ABG Total CO2 25 H ABG O2 Saturation 89.0 L Chloride BUN Creatinine Magnesium - Diagnostic Findings Chest x-ray: image reviewed Assessment and Plan Assessment: Acute hypoxemic and hypercapnic respiratory failure secondary to suspected exacerbation of systolic congestive heart failure and fluid overload. Chest x- ray is consistent with pulmonary edema. There is cardiomegaly and bilateral multifocal patchy airspace opacities. NT proBNP elevated at 11,300. Denies any infectious symptoms. Hypertensive urgency Systolic Congestive heart failure, recent echocardiogram in November, shows a reduced ejection fraction of 30-35%. Acute on chronic kidney injury, creatinine 2.08. Severe morbid obesity with a BMI of 70.5 Obstructive sleep apnea, noncompliant with CPAP. Utilizes 3 L/m nasal cannula mostly at night History of ventilator dependent respiratory failure Left upper extremity lymphedema Chronic kidney disease stage IV History of DVT Nonsmoker Plan: Patient's medications, labs, chest x-ray reviewed Continue BiPAP with settings 14/6 and FiO2 of 50% Continue with diuresis Start the patient on nitroglycerin infusion for hypertension Consult cardiology Recheck labs in the morning Repeat chest x-ray in the morning Resume home medications The patient will be monitored in intensive care unit I have personally seen and examined the patient, performed the documentation and the assessment and plan as written. Number of minutes spent on the visit:20 Time with Patient: Greater than 30
[2023-03-07 04:23] LABS: Glucose,Whole Blood 69 mg/dL (70-110)
[2023-03-07] MEDS ORDERED: DEXTROSE 50% SYRINGE 50 ML IVP STA (04:29)
[2023-03-07 04:55] LABS: Glucose,Whole Blood 112 mg/dL (70-110)
[2023-03-07 05:46] LABS: Anisocytosis Slight; Basophils % (A) 0 %; Eosinophils # (A) 0.1 k/uL (0-0.7); Eosinophils % (A) 2 %; HGB 10.4 gm/dL (11.4-16.0); Hypochromasia Marked; Lymphocytes # (A) 0.7 k/uL (1.0-4.8); Lymphocytes % (A) 11 %; MCHC 27.4 g/dL (31.0-37.0); MCV 87.6 fL (80.0-100.0); Mean Platelet Volume 9.5; Monocytes # (A) 0.5 k/uL (0-1.0); Monocytes % (A) 9 %; Neutrophils # (A) 4.5 k/uL (1.3-7.7); Neutrophils % (A) 75 %; Platelet Count 149 k/uL (150-450); RBC 4.34 m/uL (3.80-5.40); RDW 18.6 % (11.5-15.5)
[2023-03-07 06:36] LABS: Glucose,Whole Blood 90 mg/dL (70-110)
[2023-03-07 06:48] LABS: African American GFR (CKD) 31 (>60 ml/min/1.73 sqM); Anion Gap 12 mmol/L; Blood Urea Nitrogen 29 mg/dL (7-17); Calcium 8.8 mg/dL (8.4-10.2); Carbon Dioxide 20 mmol/L (22-30); Chloride 111 mmol/L (98-107); Glucose 102 mg/dL (74-99); Magnesium 2.2 mg/dL (1.6-2.3); Non-African American GFR(CKD) 27 (>60 ml/min/1.73 sqM); Potassium 4.5 mmol/L (3.5-5.1); Sodium 143 mmol/L (137-145)
[2023-03-07] MEDS ORDERED: carvediloL 12.5 MG TAB PO SCH (07:30)
[2023-03-07] MEDS: PANTOPRAZOLE 40 MG/10 ML VIAL IV SCH (08:07)
[2023-03-07] MEDS: cloNIDine HCL 0.1 MG TAB PO SCH (08:18)
[2023-03-07] MEDS: BACLOFEN 10 MG TAB PO SCH (08:18)
[2023-03-07] MEDS: FOLIC ACID 1 MG TAB PO SCH (08:18)
[2023-03-07] MEDS: ASPIRIN 81 MG PO SCH (08:18)
[2023-03-07] MEDS: PSYLLIUM HUSK 100% 6 GM PACKET PO SCH ×3 (08:19→21:07)
[2023-03-07] MEDS ORDERED: NON FORMULARY DRUG (Omeprazole [Omeprazole] 20 MG Capsule.Dr) PO SCH (09:00)
--- NOTE | 2023-03-07 09:49 | P.CRDCN ---
History of Present Illness History of present illness: HISTORY OF PRESENT ILLNESS: This is a 47-year-old female with a past medical history significant for obstructive sleep apnea was noncompliant with CPAP, chronic kidney disease, congestive heart failure, hypertension, chronic left upper extremity edema, and morbid obesity. 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 We have been asked to see the patient in consultation for congestive heart failure. Patient somewhat confused however able to state she has been having increased shortness breath as well as some lightheadedness over the last few days. She denies any fevers, chills, cough. Apparently she was getting up to date in her wheelchair and then fell down. She is not overly active and does very minimal walking. She has had increased lower extremity edema. She states she is compliant with medications however has had labile blood pressures and throughout hospitalizatio n blood pressures systolics 100s up to 200s. She was started on nitroglycerin drip and appears she is on carvedilol 50 mg twice a day at home. She states PCP started the Catapres. She denies any chest pain or pressure. She has been receiving IV Lasix 40 mg IV every 8 hours with good urine output. Creatinine stable at 2.1. * Most recent echocardiogram obtained in October 2021 revealed ejection fraction 45-50% with mild MR * Limited echo obtained in June 2022 revealed ejection fraction 55-60% REVIEW OF SYSTEMS: At the time of my exam: CONSTITUTIONAL: Denies fever or chills. HEENT: Denies blurred vision, vision changes, or eye pain. Denies hemoptysis CARDIOVASCULAR: Denies chest pain. Denies orthopnea. Denies PND. Denies palpitations, +LE edema RESPIRATORY: +shortness of breath. GASTROINTESTINAL: Denies abdominal pain. Denies nausea or vomiting. HEMATOLOGIC: Denies bleeding disorders. GENITOURINARY: Denies any blood in urine. SKIN: Denies pruitis. Denies rash. PHYSICAL EXAM: VITAL SIGNS: Reviewed. GENERAL: Well-developed in no acute distress. HEENT: Head is normocephalic. Pupils are equal, round. Sclerae anicteric. Mucous membranes of the mouth are moist. Neck supple. No JVD or thyromegaly LUNGS: Respirations even and unlabored. Lungs essentially clear to auscultation bilaterally, diminished. HEART: Regular rate and rhythm. S1 and S2 heard. ABDOMEN: Soft. Nondistended. Nontender. EXTREMITIES: Normal range of motion. No clubbing or cyanosis. Peripheral pulses intact. 2+ bilateral lower extremity edema NEUROLOGIC: Awake and alert. Oriented x 3. ASSESSMENT: Acute on chronic heart failure with preserved ejection fraction, most recent echo reveals EF 55-60% Hypertension, extremely labile Chronic kidney disease Obstructive sleep apnea, not utilizing CPAP at home Chronic left upper extremity swelling Morbid obesity Altered mental status Fall, appears mechanical by history PLAN: Patient with some confusion however appears main presentation related to heart failure with increased shortness breath. Lightheadedness and fall may be related to extreme labile blood pressures. Currently blood pressure 100s and additionally taking higher than normal doses of carvedilol. This may be causing some of her lethargy and therefore decreased to normal dose of 25 mg twice a day. May consider addition of Aldactone hydralazine or Imdur if blood pressure remains elevated however at this time stop the Catapres with likely rebound hypertension. Further recommendations to follow. Past Medical History Past Medical History: Coronary Artery Disease (CAD), Chest Pain / Angina, Heart Failure, Deep Vein Thrombosis (DVT), Hypertension, Osteoarthritis (OA), Renal Disease, Sleep Apnea/CPAP/BIPAP, Supraventricular Tachycardia (SVT) Additional Past Medical History / Comment(s): Pt recently admitted to [facility] on 07/03/22-07/15/22 with acute pulmonary edema. Other hx: Chronic CHF, home oxygen at 3L/NC prn, NIR/no device, previous ventilator dependent respiratory failure, sinus pauses, CKD stage IV, anemia, lymphedema, arthritis bilateral knees, hiatal hernia, diverticular disease, UTIs, constipation, urine and bowel incontinence. History of Any Multi-Drug Resistant Organisms: VRE Date of last positivie culture/infection: 05/03/20 MDRO Source:: VRE URINE Past Surgical History: Section, Hernia Repair Additional Past Surgical History / Comment(s): adominal hernia repair with mesh, cysts removed from stomach, EGD, colonoscopy Past Anesthesia/Blood Transfusion Reactions: No Reported Reaction Additional Past Anesthesia/Blood Transfusion Reaction / Comment(s): Pt has received blood in the past without reaction. Past Psychological History: Anxiety Additional Psychological History / Comment(s): Pt states she lives "pretty much" alone at home. She is mostly bedbound, when someone comes over, they assist her to her wheelchair via george lift. Pt states she was to start with [facility] home care. Family provides meals. She keeps her medications near her and manages them on her own. She is incontinent of urine/stool and wears depends. Smoking Status: Never smoker Past Alcohol Use History: None Reported Past Drug Use History: None Reported - Past Family History Father Family Medical History: Congestive Heart Failure (CHF) Additional Family Medical History / Comment(s): Father from CHF. Mother Family Medical History: Cancer, Hypertension, Sleep Apnea/CPAP/BIPAP Additional Family Medical History / Comment(s): Mother has had cancer removed from ear/head. Medications and Allergies Home Medications Medication Instructions Recorded Confirmed Type Omeprazole 20 mg PO DAILY 11/05/17 03/06/23 History Acetaminophen Tab [Tylenol] 650 mg PO Q6H PRN 12/19/22 03/06/23 History Aspirin 81 mg PO DAILY 12/19/22 03/06/23 History Magnesium Oxide [Mag-Ox] 400 mg PO DAILY 12/19/22 03/06/23 History Folic Acid 1 mg PO DAILY #30 tab 12/28/22 03/06/23 Rx Furosemide [Lasix] 80 mg PO BID #60 tab 12/28/22 03/06/23 Rx Nystatin 100,000 Unit/gm Powd 1 applic TOPICAL BID 30 Days #2 12/28/22 03/06/23 Rx [Mycostatin Powder] each Psyllium Husk 100% [Metamucil 6 gm PO TID #90 packet 12/28/22 03/06/23 Rx Packet] acetaZOLAMIDE [Diamox] 250 mg PO DAILY 30 Days #30 tab 12/28/22 03/06/23 Rx carvediloL [Coreg] 50 mg PO BID #120 tablet 12/28/22 03/06/23 Rx Baclofen 10 mg PO DAILY 03/06/23 03/06/23 History LORazepam [Ativan] 2 mg PO TID PRN 03/06/23 03/06/23 History NIFEdipine XL [Procardia XL] 90 mg PO DAILY@1200 03/06/23 03/06/23 History cloNIDine HCL [Catapres] 0.3 mg PO TID 03/06/23 03/06/23 History Allergies Allergy/AdvReac Type Severity Reaction Status Date / Time No Known Allergies Allergy Verified 03/06/23 18:23 Physical Exam Vitals: Vital Signs Temp Pulse Resp BP Pulse Ox FiO2 03/07/23 08:15 82 31 H 128/86 98 03/07/23 08:03 50 03/07/23 08:00 98.2 F 61 14 113/68 91 L 50 03/07/23 07:45 77 41 H 124/62 96 03/07/23 07:30 80 25 H 126/77 97 03/07/23 07:15 82 18 137/92 97 03/07/23 07:00 58 L 11 L 140/88 96 03/07/23 06:45 87 14 141/92 92 L 03/07/23 06:30 90 24 139/98 92 L 03/07/23 06:15 83 11 L 154/90 91 L 03/07/23 06:00 72 35 H 159/91 97 03/07/23 05:45 76 14 142/72 90 L 03/07/23 05:30 81 21 133/83 98 03/07/23 05:15 80 16 127/60 96 03/07/23 05:00 81 17 130/57 95 03/07/23 04:45 82 18 117/69 96 03/07/23 04:30 81 18 123/64 97 03/07/23 04:23 50 03/07/23 04:15 83 18 124/70 95 03/07/23 04:00 98.9 F 89 31 H 146/86 97 50 03/07/23 03:45 87 14 145/85 98 03/07/23 03:30 86 15 142/93 97 03/07/23 03:15 93 16 148/85 96 03/07/23 03:00 85 13 150/81 95 03/07/23 02:45 96 11 L 171/99 93 L 03/07/23 02:30 84 13 178/122 98 03/07/23 02:15 85 31 H 163/121 95 03/07/23 02:00 80 17 183/92 98 03/07/23 01:45 81 17 200/151 100 03/07/23 01:30 81 16 190/144 98 03/07/23 01:15 81 20 190/115 99 03/07/23 01:00 80 29 H 199/134 98 03/07/23 00:45 81 26 H 199/110 100 03/07/23 00:40 50 03/07/23 00:30 87 25 H 100 03/07/23 00:15 90 13 171/125 100 03/07/23 00:07 90 50 H 202/114 100 03/07/23 00:06 96.8 F L 87 26 H 202/114 98 50 03/06/23 23:42 51 L 167/116 03/06/23 23:16 74 20 169/90 95 03/06/23 22:50 87 03/06/23 22:48 84 159/84 03/06/23 22:46 86 03/06/23 22:44 90 03/06/23 22:42 85 157/100 93 L 03/06/23 22:40 87 97 03/06/23 22:38 81 148/95 95 03/06/23 22:36 84 93 L 03/06/23 22:34 88 97 03/06/23 22:32 88 144/85 95 03/06/23 22:30 86 92 L 03/06/23 22:28 89 95 03/06/23 22:26 85 141/93 97 03/06/23 22:24 87 99 03/06/23 22:22 89 147/76 94 L 03/06/23 22:20 91 92 L 03/06/23 22:18 92 162/107 91 L 03/06/23 22:16 106 H 03/06/23 22:14 78 136/117 92 L 03/06/23 22:12 90 136/117 03/06/23 22:10 93 03/06/23 22:08 89 144/84 03/06/23 22:06 76 94 L 03/06/23 22:04 84 94 L 03/06/23 22:02 85 118/68 100 03/06/23 22:00 79 98 03/06/23 21:58 81 95 03/06/23 21:56 81 115/62 03/06/23 21:54 80 120/72 100 03/06/23 21:52 80 120/72 94 L 03/06/23 21:50 80 03/06/23 21:48 81 133/70 100 03/06/23 21:46 79 03/06/23 21:44 76 94 L 03/06/23 21:42 85 136/86 03/06/23 21:40 82 03/06/23 21:38 83 134/90 99 03/06/23 21:36 82 03/06/23 21:34 79 03/06/23 21:32 81 171/100 95 03/06/23 21:30 80 94 L 03/06/23 21:28 87 148/108 03/06/23 21:26 87 03/06/23 21:24 98 191/130 03/06/23 21:22 96 94 L 03/06/23 21:20 80 94 L 03/06/23 21:18 89 192/138 03/06/23 21:16 81 94 L 03/06/23 21:14 90 03/06/23 21:12 93 177/115 95 03/06/23 21:11 90 177/115 03/06/23 21:10 98 127/85 100 03/06/23 21:00 78 124/89 98 03/06/23 20:50 80 140/54 96 03/06/23 20:47 79 20 140/54 98 03/06/23 20:40 80 164/142 99 03/06/23 20:30 87 217/106 03/06/23 20:20 90 194/119 03/06/23 20:10 88 213/116 99 03/06/23 20:00 93 200/101 99 03/06/23 19:50 50 L 186/118 98 03/06/23 19:45 50 03/06/23 19:40 82 201/144 96 03/06/23 19:30 86 190/125 96 03/06/23 19:20 93 182/128 03/06/23 19:10 74 172/131 03/06/23 19:00 65 181/106 94 L 03/06/23 18:50 80 179/91 03/06/23 18:40 75 185/87 91 L 03/06/23 18:30 73 171/119 97 03/06/23 18:20 80 179/106 97 03/06/23 18:10 83 168/77 97 03/06/23 18:00 89 156/88 95 03/06/23 17:50 75 99/82 93 L 30 03/06/23 17:40 62 139/81 90 L 03/06/23 17:30 80 150/85 93 L 03/06/23 17:20 79 190/110 95 03/06/23 17:10 77 181/110 03/06/23 17:00 89 173/93 91 L 03/06/23 16:50 76 165/104 93 L 30 03/06/23 16:44 91 166/88 93 L 03/06/23 16:29 88 24 174/84 92 L 03/06/23 15:35 90 24 168/98 94 L 03/06/23 13:45 20 03/06/23 13:37 97.9 F 94 20 163/105 100 Intake and Output 03/06/23 03/07/23 03/07/23 22:59 06:59 14:59 Intake Total 5.05 2.8 Output Total 1100 1630 150 Balance -1100 -1624.95 -147.2 Intake: Intake, IV Titration 5.05 2.8 Amount Nitroglycerin-D5w Pmx 50 5.05 2.8 mg In Dextrose/Water 1 250ml.bag @ 5 MCG/MIN 1.5 mls/hr IV .Q24H [facility] Rx#: [id number] Output: Urine 1100 1630 150 Other: Voiding Method Indwelling Catheter Indwelling Catheter Weight 204.117 kg 200.7 kg Results 03/07/23 05:40 03/07/23 05:40 Cardiac Enzymes 03/06/23 03/06/23 Range/Units 15:02 15:02 AST 19 (14-36) U/L Troponin I 0.023 (0.000-0.034) ng/mL Coagulation 03/06/23 Range/Units 15:02 PT 11.8 (9.0-12.0) sec APTT 23.0 (22.0-30.0) sec CBC 03/06/23 03/07/23 Range/Units 15:02 05:40 WBC 6.4 6.0 (3.8-10.6) k/uL RBC 4.77 4.34 (3.80-5.40) m/uL Hgb 11.2 L 10.4 L (11.4-16.0) gm/dL Hct 40.2 38.0 (34.0-46.0) % Plt Count 175 149 L (150-450) k/uL Comprehensive Metabolic Panel 03/06/23 03/07/23 Range/Units 15:02 05:40 Sodium 143 143 (137-145) mmol/L Potassium 4.7 4.5 (3.5-5.1) mmol/L Chloride 111 H 111 H (98-107) mmol/L Carbon Dioxide 23 20 L (22-30) mmol/L BUN 28 H 29 H (7-17) mg/dL Creatinine 2.08 H 2.12 H (0.52-1.04) mg/dL Glucose 84 102 H (74-99) mg/dL Calcium 8.9 8.8 (8.4-10.2) mg/dL AST 19 (14-36) U/L ALT 13 (4-34) U/L Alkaline Phosphatase 92 (38-126) U/L Total Protein 8.0 (6.3-8.2) g/dL Albumin 3.8 (3.5-5.0) g/dL Current Medications Generic Name Dose Route Start Last Admin Trade Name Freq PRN Reason Stop Dose Admin Aspirin 81 mg 03/07/23 09:00 03/07/23 08:18 Aspirin 81 Mg PO 81 mg DAILY [facility] Administration Baclofen 10 mg 03/07/23 09:00 03/07/23 08:18 Baclofen 10 Mg Tab PO 10 mg DAILY [facility] Administration Carvedilol 25 mg 03/07/23 17:30 Carvedilol 12.5 Mg Tab PO BID-W/MEALS [facility] Folic Acid 1 mg 03/07/23 09:00 03/07/23 08:18 Folic Acid 1 Mg Tab PO 1 mg DAILY [facility] Administration Furosemide 40 mg 03/07/23 01:30 03/07/23 08:07 Furosemide 10 Mg/Ml 4 Ml Vial IV 40 mg Q8HR [facility] Administration Heparin Sodium (Porcine) 5,000 unit 03/07/23 09:00 Heparin Sodium,Porcine/Pf 5,000 Unit/0.5 Ml Syringe SQ Q12HR [facility] Nitroglycerin/Dextrose 50 mg/ 250 mls @ 1.5 mls/hr 03/07/23 01:15 03/07/23 07:51 IV Solution IV 2.5 mcg/min .Q24H [facility] 0.75 mls/hr Titration Protocol 5 MCG/MIN Morphine Sulfate 2 mg 03/07/23 01:18 Morphine Sulfate 2 Mg/Ml Syringe IVP Q6HR PRN Pain/Discomfort Naloxone HCl 0.2 mg 03/07/23 01:22 Naloxone 0.4 Mg/Ml 1 Ml Vial IV Q2M PRN Opioid Reversal Nifedipine 90 mg 03/07/23 12:00 Nifedipine Xl 90 Mg Tab.Er.24 PO DAILY@1200 [facility] Pantoprazole Sodium 40 mg 03/07/23 09:00 03/07/23 08:07 Pantoprazole 40 Mg/10 Ml Vial IV 40 mg DAILY [facility] Administration Psyllium Hydrophilic Mucilloid 6 gm 03/07/23 09:00 03/07/23 08:19 Psyllium Husk 100% 6 Gm Packet PO Not Given TID [facility] Intake and Output 03/06/23 03/07/23 03/07/23 22:59 06:59 14:59 Intake Total 5.05 2.8 Output Total 1100 1630 150 Balance -1100 -1624.95 -147.2 Intake: Intake, IV Titration 5.05 2.8 Amount Nitroglycerin-D5w Pmx 50 5.05 2.8 mg In Dextrose/Water 1 250ml.bag @ 5 MCG/MIN 1.5 mls/hr IV .Q24H [facility] Rx#: [id number] Output: Urine 1100 1630 150 Other: Voiding Method Indwelling Catheter Indwelling Catheter Weight 204.117 kg 200.7 kg 03/07/23 05:40 03/07/23 05:40
[2023-03-07 11:40] LABS: Glucose,Whole Blood 89 mg/dL (70-110)
[2023-03-07] MEDS: HEPARIN SODIUM,PORCINE/PF 5,000 UNIT/0.5 ML SYRINGE SQ SCH ×2 (12:52→21:05)
[2023-03-07] MEDS: NIFEdipine XL 90 MG TAB.ER.24 PO SCH (12:53)
[2023-03-07 13:35] VITALS: BMI 69.2
[2023-03-07 15:30] LABS: Glucose,Whole Blood 88 mg/dL (70-110)
[2023-03-07] MEDS: carvediloL 12.5 MG TAB PO SCH (16:34)
[2023-03-07] MEDS: ACETAMINOPHEN TAB 325 MG TAB PO PRN (17:12)
[2023-03-07] MEDS: NYSTATIN 100,000 UNIT/GM POWD 15 GM TOPICAL SCH (21:06)
[2023-03-08] MEDS: NITROGLYCERIN-D5W PMX 50 MG in DEXTROSE/WATER 1 250ML.BAG IV SCH (01:25)
[2023-03-08 02:15] LABS: Glucose,Whole Blood 81 mg/dL (70-110)
[2023-03-08 06:08] LABS: Anisocytosis Slight; Basophils % (A) 0 %; Eosinophils # (A) 0.1 k/uL (0-0.7); Eosinophils % (A) 2 %; HCT 36.8 % (34.0-46.0); HGB 10.3 gm/dL (11.4-16.0); Hypochromasia Marked; Lymphocytes # (A) 0.8 k/uL (1.0-4.8); Lymphocytes % (A) 14 %; MCH 23.7 pg (25.0-35.0); MCHC 28.1 g/dL (31.0-37.0); MCV 84.2 fL (80.0-100.0); Mean Platelet Volume 10.4; Microcytosis Slight; Monocytes # (A) 0.4 k/uL (0-1.0); Monocytes % (A) 8 %; Neutrophils % (A) 74 %; Platelet Count 167 k/uL (150-450); RBC 4.36 m/uL (3.80-5.40); RDW 18.8 % (11.5-15.5); WBC 5.5 k/uL (3.8-10.6)
[2023-03-08 06:18] LABS: African American GFR (CKD) 28 (>60 ml/min/1.73 sqM); Anion Gap 7 mmol/L; Blood Urea Nitrogen 32 mg/dL (7-17); Calcium 8.5 mg/dL (8.4-10.2); Carbon Dioxide 26 mmol/L (22-30); Chloride 110 mmol/L (98-107); Glucose 77 mg/dL (74-99); Non-African American GFR(CKD) 25 (>60 ml/min/1.73 sqM); Sodium 143 mmol/L (137-145)
[2023-03-08] MEDS: carvediloL 12.5 MG TAB PO SCH ×2 (06:40→17:10)
[2023-03-08] MEDS: ASPIRIN 81 MG PO SCH (08:44)
[2023-03-08] MEDS: FOLIC ACID 1 MG TAB PO SCH (08:44)
[2023-03-08] MEDS: FUROSEMIDE 10 MG/ML 4 ML VIAL IV SCH ×2 (08:44→20:48)
[2023-03-08] MEDS: PSYLLIUM HUSK 100% 6 GM PACKET PO SCH ×3 (08:45→20:49)
[2023-03-08] MEDS: PANTOPRAZOLE 40 MG/10 ML VIAL IV SCH (08:45)
[2023-03-08] MEDS: BACLOFEN 10 MG TAB PO SCH (08:45)
[2023-03-08] MEDS: MAGNESIUM OXIDE 400 MG TAB PO SCH (08:45)
[2023-03-08] MEDS: HEPARIN SODIUM,PORCINE/PF 5,000 UNIT/0.5 ML SYRINGE SQ SCH ×2 (08:45→20:48)
[2023-03-08] MEDS: acetaZOLAMIDE 250 MG TAB PO SCH (09:00)
[2023-03-08] MEDS: NYSTATIN 100,000 UNIT/GM POWD 15 GM TOPICAL SCH ×2 (09:03→20:49)
--- NOTE | 2023-03-08 11:49 | P.PN ---
Subjective HISTORY OF PRESENT ILLNESS: This is a 47-year-old female with a past medical history significant for obstructive sleep apnea was noncompliant with CPAP, chronic kidney disease, congestive heart failure, hypertension, chronic left upper extremity edema, and morbid obesity. 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 We have been asked to see the patient in consultation for congestive heart failure. Patient somewhat confused however able to state she has been having increased shortness breath as well as some lightheadedness over the last few days. She denies any fevers, chills, cough. Apparently she was getting up to date in her wheelchair and then fell down. She is not overly active and does very minimal walking. She has had increased lower extremity edema. She states she is compliant with medications however has had labile blood pressures and throughout hospitalization blood pressures systolics 100s up to 200s. She was started on nitroglycerin drip and appears she is on carvedilol 50 mg twice a day at home. She states PCP started the Catapres. She denies any chest pain or pressure. She has been receiving IV Lasix 40 mg IV every 8 hours with good urine output. Creatinine stable at 2.1. * Most recent echocardiogram obtained in October 2021 revealed ejection fraction 45-50% with mild MR * Limited echo obtained in June 2022 revealed ejection fraction 55-60% 6/9 Agents and examined. Patient denies any chest pain or pressure. She is much more alert today. She has been maintained on diuretics with creatinine stable at 2.1. She denies any lightheadedness or dizziness. She states she has been taking her medications at home. She is unclear why she was confused when she first came in. Blood pressures better controlled 110s to 130s. She states normally her blood pressure is better controlled. PHYSICAL EXAM: VITAL SIGNS: Reviewed. GENERAL: Well-developed in no acute distress. HEENT: Head is normocephalic. Pupils are equal, round. Sclerae anicteric. Mucous membranes of the mouth are moist. Neck supple. No JVD or thyromegaly LUNGS: Respirations even and unlabored. Lungs essentially clear to auscultation bilaterally, diminished. HEART: Regular rate and rhythm. S1 and S2 heard. ABDOMEN: Soft. Nondistended. Nontender. EXTREMITIES: Normal range of motion. No clubbing or cyanosis. Peripheral pu lses intact. 2+ bilateral lower extremity edema NEUROLOGIC: Awake and alert. Oriented x 3. ASSESSMENT: Acute on chronic heart failure with preserved ejection fraction, most recent echo reveals EF 55-60% Hypertension, extremely labile Chronic kidney disease Obstructive sleep apnea, not utilizing CPAP at home Chronic left upper extremity swelling Morbid obesity Altered mental status Fall, appears mechanical by history PLAN: Blood pressure appears fairly well controlled. Catapres was stopped secondary to labile blood pressures. Main presentation appears consistent with heart failure and continue diuretics. If continued elevated blood pressures, we will add hydralazine, Imdur or Aldactone. Likely still 2-3 days of diuresis. Objective - Vital Signs Vital signs: Vital Signs Temp 98.6 F 03/08/23 08:00 Pulse 68 03/08/23 10:00 Resp 20 03/08/23 10:00 BP 133/40 03/08/23 10:00 Pulse Ox 92 L 03/08/23 10:00 FiO2 40 03/08/23 04:00 Intake & Output 03/07/23 03/08/23 03/08/23 18:59 06:59 18:59 Intake Total 3.162 Output Total 1700 1490 1050 Balance -1696.838 -1490 -1050 Weight 200.7 kg 196.1 kg Intake: Intake, IV Titration 3.162 Amount Nitroglycerin-D5w Pmx 50 3.162 mg In Dextrose/Water 1 250ml.bag @ 5 MCG/MIN 1.5 mls/hr IV .Q24H [facility] Rx#: [id number] Output: Urine 1700 1490 1050 Other: Voiding Method Indwelling Catheter Indwelling Catheter Indwelling Catheter - Labs CBC & Chem 7: 03/08/23 05:35 03/08/23 05:35 Labs: Abnormal Lab Results - Last 24 Hours (Table) 03/08/23 03/08/23 Range/Units 05:35 05:35 Hgb 10.3 L (11.4-16.0) gm/dL MCH 23.7 L (25.0-35.0) pg MCHC 28.1 L (31.0-37.0) g/dL RDW 18.8 H (11.5-15.5) % Lymphocytes # 0.8 L (1.0-4.8) k/uL Chloride 110 H (98-107) mmol/L BUN 32 H (7-17) mg/dL Creatinine 2.28 H (0.52-1.04) mg/dL
[2023-03-08 11:56] LABS: Glucose,Whole Blood 84 mg/dL (70-110)
[2023-03-08] MEDS: NIFEdipine XL 90 MG TAB.ER.24 PO SCH (12:54)
--- NOTE | 2023-03-08 13:29 | P.PN ---
Subjective Progress Note Date: 03/08/23 Principal diagnosis: Acute hypoxic and hypercapnic respiratory failure secondary to acute systolic congestive heart failure. With underlying obesity/hypoventilation syndrome and obstructive sleep apnea syndrome. I am seeing this patient in new consultation today 03/07/2023 for suspected CHF exacerbation and hypertensive urgency. Patient is a 47-year-old - [place] female with past medical history significant for CHF, hypertension, morbid obesity, obstructive sleep apnea without CPAP, home O2 3 L nasal cannula mostly at night, previous ventilator dependent respiratory failure, hypertension, chronic kidney disease stage IV, left upper extremity lymphedema, anemia, and frequent urinary tract infections. Patient also had a recent hospitalization back in November for similar symptoms of CHF exacerbation and fluid overload. Patient came in to the emergency room yesterday afternoon reporting progressive shortness of breath since Saturday. She is chronically oxygen de pendent on 3 L/m nasal cannula, but has been increasing her flow rate to 4 L/m. She is also reporting associated increased lower extremity edema. She states that she has been taking her diuretics and is urinating. Apparently, yesterday she was short of breath, tried to get up, and "slipped". She did call EMS, and was transferred to the emergency room. Initial ABG shows hypercapnic respiratory failure with a pCO2 of 65 and pH of 7.19, and she was placed on BiPAP. Chest x-ray on arrival shows cardiomegaly with multifocal patchy airspace opacities throughout bilateral lungs consistent with pulmonary edema and/or pneumonia. She denies any fever, chills, cough, chest pain, hemoptysis. She is currently in the intensive care unit, on BiPAP with settings 14/6 and FiO2 of 50%, and she is fairly comfortable. Repeat ABGs show a pO2 of 62, pCO2 of 58, and pH of 7.22. CBC on arrival was unremarkable, did not show any leukocytosis. BMP shows a sodium 143, potassium 4.7, chloride 111, serum CO2 23, BUN 28, creatinine 2.08, glucose 84. LFTs were not elevated. Troponin was 0.023. No obvious ECG evidence of ischemia. NT proBNP was elevated at 11,300. She did receive a dose of 80 mg of Lasix in the emergency room. She does have a Colon catheter, and already has a -2 L fluid balance. Her blood pressure is severely hypertensive, and last reading was 190/144 mmhg. she reports being com pliant with her home antihypertensives. Patient will remain on the BiPAP at least overnight, and be monitored in the intensive care unit. Reevaluated today 03/08/2023, patient is doing great, much better today compared to yesterday. On 3 L nasal cannula, she diuresed over 7 L in the last 24 hours. Hence I cut down her Lasix to 40 mg IV push twice a day instead of 3 times a day. Patient had her last echocardiogram on 12/19/2022, clearly showed severely impaired LV function with ejection fraction of 30-35%., This is being addressed by cardiology on the case, however his no specifically stated last echocardiogram showing LV function was normal, I could not locate any other echocardiogram more recent than the one that was done in December 19 2022. At any rate clearly the presentation was a presentation of congestive heart failure and again it is systolic heart failure unless for otherwise. In addition to all of them the patient had obstructive sleep apnea syndrome and obesity hypoventil ation syndrome with chronic hypercapnia. Patient is now off BiPAP, she is on 3 days nasal cannula, not in any distress. CBC is relatively normal basic metabolic profile is normal BUN is 52 creatinine 2.28 no chest x-ray was done today, however she would have a follow-up chest x-ray in the next 24-48 hours Objective - Vital Signs Vital signs: Vital Signs Temp 98.2 F 03/08/23 12:00 Pulse 87 03/08/23 12:00 Resp 19 03/08/23 12:00 BP 118/68 03/08/23 12:00 Pulse Ox 96 03/08/23 12:00 FiO2 40 03/08/23 04:00 Intake & Output 03/07/23 03/08/23 03/08/23 18:59 06:59 18:59 Intake Total 3.162 Output Total 1700 1490 1050 Balance -1696.838 -1490 -1050 Weight 200.7 kg 196.1 kg Intake: Intake, IV Titration 3.162 Amount Nitroglycerin-D5w Pmx 50 3.162 mg In Dextrose/Water 1 250ml.bag @ 5 MCG/MIN 1.5 mls/hr IV .Q24H [facility] Rx#: [id number] Output: Urine 1700 1490 1050 Other: Voiding Method Indwelling Catheter Indwelling Catheter Indwelling Catheter - Exam Physical Exam: Revealed a 47-year-old female in no distress on 3 L nasal cannula, morbidly obese. Head: Atraumatic, normocephalic. HEENT:[Neck is supple.] [No neck masses.] [No thyromegaly.] [No JVD.] Chest: [Clear throughout, no crackles, no rhonchi, no wheezes.] Cardiac Exam: Distant S1 and S2, no S3 gallop. No murmur..] Abdomen: [Morbidly obese, Soft, nontender, no megaly, no rebound, no guarding, normal bowel sounds.] Extremities: [No clubbing, 2+ bipedal edema, no cyanosis.] Neurological Exam: [No focal neurologic deficit.] Alert oriented 3 focal deficit Psychiatric: Normal mood affect and normal mental status examination. Skin: No rashes. - Labs CBC & Chem 7: 03/08/23 05:35 03/08/23 05:35 Labs: Abnormal Lab Results - Last 24 Hours (Table) 03/08/23 03/08/23 Range/Units 05:35 05:35 Hgb 10.3 L (11.4-16.0) gm/dL MCH 23.7 L (25.0-35.0) pg MCHC 28.1 L (31.0-37.0) g/dL RDW 18.8 H (11.5-15.5) % Lymphocytes # 0.8 L (1.0-4.8) k/uL Chloride 110 H (98-107) mmol/L BUN 32 H (7-17) mg/dL Creatinine 2.28 H (0.52-1.04) mg/dL Assessment and Plan Assessment: Impression:Acute hypoxemic and hypercapnic respiratory failure secondary to suspected exacerbation of systolic congestive heart failure and fluid overload. Hypertensive urgency, resolved. Systolic Congestive heart failure, recent echocardiogram in November, shows a reduced ejection fraction of 30-35%. Acute on chronic kidney injury, creatinine 2.08. Severe morbid obesity with a BMI of 70.5 Obstructive sleep apnea, noncompliant with CPAP. Utilizes 3 L/m nasal cannula mostly at night History of ventilator dependent respiratory failure Left upper extremity lymphedema Chronic kidney disease stage IV History of DVT Nonsmoker Recommendation: Continue present supportive care measures Continue oxygen and titrate accordingly Continue BiPAP as needed especially when she goes to bed at night Continue diuretics and cut down Lasix to 40 mg twice a day instead of 3 times a day Transfer patient out of the ICU to a cardiac floor with monitor. Repeat chest x-ray in the next 24 hours Resume home meds We'll continue to follow Time with Patient: Less than 30
[2023-03-08 18:01] LABS: Glucose,Whole Blood 117 mg/dL (70-110)
[2023-03-08 23:59] LABS: Glucose,Whole Blood 117 mg/dL (70-110)
--- NOTE | 2023-03-09 00:17 | PN ---
PROGRESS NOTE DATE OF SERVICE: 03/08/2023 LOCATION: 252. CHIEF COMPLAINT: [id number] congestive heart failure. HISTORY OF PRESENT ILLNESS: This lady is doing a bit better and a little bit less short of breath. Vital signs are stable. Her BUN and creatinine are abnormal with 32 and 2.28, respectively. PHYSICAL EXAMINATION: LUNGS: Breath sounds are heard. CARDIAC: Difficult, but she is in sinus rhythm. ABDOMEN: Protuberant, soft, and nontender without any masses. EXTREMITIES: Same. IMPRESSION: 1. Acute congestive heart failure. 2. Chronic congestive heart failure. 3. Atherosclerotic cardiomyopathy. 4. Obesity. 5. Chronic kidney disease. PLAN: Continue with ICU monitoring, IV fluids, and diuresis. MMODL / IJN: [id number] /
[2023-03-09 05:46] LABS: Glucose,Whole Blood 79 mg/dL (70-110)
[2023-03-09] MEDS: NITROGLYCERIN-D5W PMX 50 MG in DEXTROSE/WATER 1 250ML.BAG IV SCH ×2 (06:04→20:34)
[2023-03-09] MEDS: carvediloL 12.5 MG TAB PO SCH ×2 (06:37→16:40)
[2023-03-09] MEDS: PSYLLIUM HUSK 100% 6 GM PACKET PO SCH ×3 (09:16→20:34)
[2023-03-09] MEDS: PANTOPRAZOLE 40 MG/10 ML VIAL IV SCH (09:16)
[2023-03-09] MEDS: FUROSEMIDE 10 MG/ML 4 ML VIAL IV SCH ×2 (09:16→20:34)
[2023-03-09] MEDS: BACLOFEN 10 MG TAB PO SCH (09:17)
[2023-03-09] MEDS: ASPIRIN 81 MG PO SCH (09:17)
[2023-03-09] MEDS: MAGNESIUM OXIDE 400 MG TAB PO SCH (09:17)
[2023-03-09] MEDS: acetaZOLAMIDE 250 MG TAB PO SCH (09:17)
[2023-03-09] MEDS: FOLIC ACID 1 MG TAB PO SCH (09:17)
[2023-03-09] MEDS: HEPARIN SODIUM,PORCINE/PF 5,000 UNIT/0.5 ML SYRINGE SQ SCH ×2 (09:17→20:34)
--- NOTE | 2023-03-09 10:33 | XR ---
EXAMINATION TYPE: XR chest 1V portable DATE OF EXAM: 03/09/2023 Comparison: 03/06/2023 Clinical History: 47-year-old female with CHF Findings: Large patient body habitus limits evaluation. The specimen overlying breast tissue obscuring most of the left mid to lower lung. This also obscures the left heart margin. Diffuse interstitial density as well as perihilar and mid and lower lung airspace opacity persists. Impression: Large patient body habitus limiting evaluation. Ongoing mid and lower lung airspace disease suggestiv e of pulmonary edema.
[2023-03-09] MEDS: NIFEdipine XL 90 MG TAB.ER.24 PO SCH (11:18)
[2023-03-09] MEDS: NYSTATIN 100,000 UNIT/GM POWD 15 GM TOPICAL SCH ×2 (11:19→20:34)
[2023-03-09 11:45] LABS: Anisocytosis Slight; Basophils % (A) 0 %; Eosinophils # (A) 0.1 k/uL (0-0.7); Eosinophils % (A) 2 %; HCT 37.5 % (34.0-46.0); HGB 10.1 gm/dL (11.4-16.0); Hypochromasia Marked; Lymphocytes # (A) 0.7 k/uL (1.0-4.8); Lymphocytes % (A) 12 %; MCH 23.1 pg (25.0-35.0); MCHC 26.8 g/dL (31.0-37.0); MCV 86.2 fL (80.0-100.0); Mean Platelet Volume 10.3; Monocytes # (A) 0.4 k/uL (0-1.0); Monocytes % (A) 6 %; Neutrophils # (A) 4.3 k/uL (1.3-7.7); Neutrophils % (A) 77 %; Platelet Count 148 k/uL (150-450); RBC 4.36 m/uL (3.80-5.40); RDW 18.5 % (11.5-15.5); WBC 5.6 k/uL (3.8-10.6)
[2023-03-09 11:45] LABS: Glucose,Whole Blood 98 mg/dL (70-110)
[2023-03-09 11:57] LABS: ALT 11 U/L (4-34); AST 15 U/L (14-36); African American GFR (CKD) 26 (>60 ml/min/1.73 sqM); Albumin 3.1 g/dL (3.5-5.0); Alkaline Phosphatase 60 U/L (38-126); Anion Gap 8 mmol/L; Blood Urea Nitrogen 29 mg/dL (7-17); Calcium 8.3 mg/dL (8.4-10.2); Carbon Dioxide 29 mmol/L (22-30); Chloride 108 mmol/L (98-107); Glucose 116 mg/dL (74-99); Non-African American GFR(CKD) 23 (>60 ml/min/1.73 sqM); Potassium 3.9 mmol/L (3.5-5.1); Sodium 145 mmol/L (137-145); Total Bilirubin 0.4 mg/dL (0.2-1.3); Total Protein 6.7 g/dL (6.3-8.2)
--- NOTE | 2023-03-09 13:18 | P.PN ---
Subjective Progress Note Date: 03/09/23 Principal diagnosis: Acute hypoxic and hypercapnic respiratory failure secondary to acute systolic congestive heart failure. With underlying obesity/hypoventilation syndrome and obstructive sleep apnea syndrome. I am seeing this patient in new consultation today 03/07/2023 for suspected CHF exacerbation and hypertensive urgency. Patient is a 47-year-old - [place] female with past medical history significant for CHF, hypertension, morbid obesity, obstructive sleep apnea without CPAP, home O2 3 L nasal cannula mostly at night, previous ventilator dependent respiratory failure, hypertension, chronic kidney disease stage IV, left upper extremity lymphedema, anemia, and frequent urinary tract infections. Patient also had a recent hospitalization back in November for similar symptoms of CHF exacerbation and fluid overload. Patient came in to the emergency room yesterday afternoon reporting progressive shortness of breath since Saturday. She is chronically oxygen de pendent on 3 L/m nasal cannula, but has been increasing her flow rate to 4 L/m. She is also reporting associated increased lower extremity edema. She states that she has been taking her diuretics and is urinating. Apparently, yesterday she was short of breath, tried to get up, and "slipped". She did call EMS, and was transferred to the emergency room. Initial ABG shows hypercapnic respiratory failure with a pCO2 of 65 and pH of 7.19, and she was placed on BiPAP. Chest x-ray on arrival shows cardiomegaly with multifocal patchy airspace opacities throughout bilateral lungs consistent with pulmonary edema and/or pneumonia. She denies any fever, chills, cough, chest pain, hemoptysis. She is currently in the intensive care unit, on BiPAP with settings 14/6 and FiO2 of 50%, and she is fairly comfortable. Repeat ABGs show a pO2 of 62, pCO2 of 58, and pH of 7.22. CBC on arrival was unremarkable, did not show any leukocytosis. BMP shows a sodium 143, potassium 4.7, chloride 111, serum CO2 23, BUN 28, creatinine 2.08, glucose 84. LFTs were not elevated. Troponin was 0.023. No obvious ECG evidence of ischemia. NT proBNP was elevated at 11,300. She did receive a dose of 80 mg of Lasix in the emergency room. She does have a Colon catheter, and already has a -2 L fluid balance. Her blood pressure is severely hypertensive, and last reading was 190/144 mmhg. she reports being com pliant with her home antihypertensives. Patient will remain on the BiPAP at least overnight, and be monitored in the intensive care unit. Reevaluated today 03/08/2023, patient is doing great, much better today compared to yesterday. On 3 L nasal cannula, she diuresed over 7 L in the last 24 hours. Hence I cut down her Lasix to 40 mg IV push twice a day instead of 3 times a day. Patient had her last echocardiogram on 12/19/2022, clearly showed severely impaired LV function with ejection fraction of 30-35%., This is being addressed by cardiology on the case, however his no specifically stated last echocardiogram showing LV function was normal, I could not locate any other echocardiogram more recent than the one that was done in December 19 2022. At any rate clearly the presentation was a presentation of congestive heart failure and again it is systolic heart failure unless for otherwise. In addition to all of them the patient had obstructive sleep apnea syndrome and obesity hypoventil ation syndrome with chronic hypercapnia. Patient is now off BiPAP, she is on 3 days nasal cannula, not in any distress. CBC is relatively normal basic metabolic profile is normal BUN is 52 creatinine 2.28 no chest x-ray was done today, however she would have a follow-up chest x-ray in the next 24-48 hours Reevaluated today on 03/09/2023, patient is feeling better, she is now on the cardiac floor, remains on diuretics, continues to have good urine output, she is on 3 L nasal cannula, O2 sats is 99%, chest x-ray is showing definite improvement in her pulmonary edema. There is 5.6 hemoglobin is 10.1. Normal renal profile is a bit worse with creatinine up to 2.44, may need to cut down on diuretics, I already cut it down yesterday from 40 mg 3 times a day down to 40 mg twice a day. Will let cardiology decide on diuretics, in the meantime continue present supportive care measures. Objective - Vital Signs Vital signs: Vital Signs Temp 97.8 F 03/09/23 04:00 Pulse 95 03/09/23 08:00 Resp 18 03/09/23 08:00 BP 124/82 03/09/23 08:00 Pulse Ox 99 03/09/23 08:38 FiO2 40 03/09/23 06:38 Intake & Output 03/08/23 03/09/23 03/09/23 18:59 06:59 18:59 Intake Total 610 118 Output Total 1300 1125 825 Balance -536 -7229 -314 Intake: Oral 610 118 Output: Urine 1300 1125 825 Other: Voiding Method Indwelling Catheter Indwelling Catheter Indwelling Catheter - Exam Physical Exam: Revealed a 47-year-old female in no distress on 3 L nasal cannula, morbidly obese. Head: Atraumatic, normocephalic. HEENT:[Neck is supple.] [No neck masses.] [No thyromegaly.] [No JVD.] Chest: [Clear throughout, no crackles, no rhonchi, no wheezes.] Cardiac Exam: Distant S1 and S2, no S3 gallop. No murmur..] Abdomen: [Morbidly obese, Soft, nontender, no megaly, no rebound, no guarding, normal bowel sounds.] Extremities: [No clubbing, 2+ bipedal edema, no cyanosis.] Neurological Exam: [No focal neurologic deficit.] Alert oriented 3 focal def icit Psychiatric: Normal mood affect and normal mental status examination. Skin: No rashes. - Labs CBC & Chem 7: 03/09/23 10:37 03/09/23 10:37 Labs: Abnormal Lab Results - Last 24 Hours (Table) 03/08/23 03/08/23 03/09/23 Range/Units 18:00 23:57 10:37 Hgb 10.1 L (11.4-16.0) gm/dL MCH 23.1 L (25.0-35.0) pg MCHC 26.8 L (31.0-37.0) g/dL RDW 18.5 H (11.5-15.5) % Plt Count 148 L (150-450) k/uL Lymphocytes # 0.7 L (1.0-4.8) k/uL Chloride (98-107) mmol/L BUN (7-17) mg/dL Creatinine (0.52-1.04) mg/dL Glucose (74-99) mg/dL POC Glucose (mg/dL) 117 H 117 H (70-110) mg/dL Calcium (8.4-10.2) mg/dL Albumin (3.5-5.0) g/dL 03/09/23 Range/Units 10:37 Hgb (11.4-16.0) gm/dL MCH (25.0-35.0) pg MCHC (31.0-37.0) g/dL RDW (11.5-15.5) % Plt Count (150-450) k/uL Lymphocytes # (1.0-4.8) k/uL Chloride 108 H (98-107) mmol/L BUN 29 H (7-17) mg/dL Creatinine 2.45 H (0.52-1.04) mg/dL Glucose 116 H (74-99) mg/dL POC Glucose (mg/dL) (70-110) mg/dL Calcium 8.3 L (8.4-10.2) mg/dL Albumin 3.1 L (3.5-5.0) g/dL Assessment and Plan Assessment: Impression:Acute hypoxemic and hypercapnic respiratory failure secondary to suspected exacerbation of systolic congestive heart failure and fluid overload. Hypertensive urgency, resolved. Systolic Congestive heart failure, recent echocardiogram in November, shows a reduced ejection fraction of 30-35%. Acute on chronic kidney injury, creatinine 2.08. Severe morbid obesity with a BMI of 70.5 Obstructive sleep apnea, noncompliant with CPAP. Utilizes 3 L/m nasal cannula mostly at night History of ventilator dependent respiratory failure Left upper extremity lymphedema Chronic kidney disease stage IV History of DVT Nonsmoker Recommendation: Continue present supportive care measures Continue oxygen and titrate accordingly Continue BiPAP as needed especially when she goes to bed at night Continue diuretics , cardiology to address adjustment of her diuretics We will sign off for now and follow the patient as needed
[2023-03-09 16:25] LABS: Glucose,Whole Blood 104 mg/dL (70-110)
--- NOTE | 2023-03-09 16:36 | P.PN ---
Subjective Progress Note Date: 03/09/23 HISTORY OF PRESENT ILLNESS: This is a 47-year-old female with a past medical history significant for ob structive sleep apnea was noncompliant with CPAP, chronic kidney disease, congestive heart failure, hypertension, chronic left upper extremity edema, and morbid obesity. Patient does not follow with a grain combiner. We have been asked to see the patient in consultation for congestive heart failure. Patient somewhat confused however able to state she has been having increased shortness breath as well as some lightheadedness over the last few days. She denies any fevers, chills, cough. Apparently she was getting up to date in her wheelchair and then fell down. She is not overly active and does very minimal walking. She has had increased lower extremity edema. She states she is compliant with medications however has had labile blood pressures and throughout hospitalization blood pressures systolics 100s up to 200s. She was started on nitroglycerin drip and appears she is on carvedilol 50 mg twice a day at home. She states PCP started the Catapres. She denies any chest pain or pressure. She has been receiving IV Lasix 40 mg IV every 8 hours with good urine output. Creatinine stable at 2.1. * Most recent echocardiogram obtained in October 2021 revealed ejection fraction 45-50% with mild MR * Limited echo obtained in June 2022 revealed ejection fraction 55-60% 03/08 Seen and examined. Patient denies any chest pain or pressure. She is much more alert today. She has been maintained on diuretics with creatinine stable at 2.1. She denies any lightheadedness or dizziness. She states she has been taking her medications at home. She is unclear why she was confused when she first came in. Blood pressures better controlled 110s to 130s. She states normally her blood pressure is better controlled. 03/09 Patient seen and examined. She reports still feeling short of breath however her breathing is somewhat better. Denies any chest pain or dizziness. Blood pressure better controlled 110-120's. Chest x-ray today limited due to patient body habitus, shows ongoing mid and lower lung airspace disease suggestive of pulmonary edema. Creat 2.45. PHYSICAL EXAM: VITAL SIGNS: Reviewed. GENERAL: Obese, in no acute distress. HEENT: Head is normocephalic. Pupils are equal, round. Sclerae anicteric. Mucous membranes of the mouth are moist. LUNGS: Respirations even and unlabored. Lungs essentially clear to auscultation bilaterally, diminished. HEART: Regular rate and rhythm. S1 and S2 heard. ABDOMEN: Soft. Nondistended. Nontender. EXTREMITIES: Normal range of motion. No clubbing or cyanosis. Peripheral pulses intact. 2+ bilateral lower extremity edema NEUROLOGIC: Awake and alert. Oriented x 3. ASSESSMENT: Acute on chronic heart failure with preserved ejection fraction, most recent echo reveals EF 55-60% Hypertension, extremely labile Chronic kidney disease Obstructive sleep apnea, not utilizing CPAP at home Chronic left upper extremity swelling Morbid obesity Altered mental status Fall, appears mechanical by history PLAN: Blood pressure appears better controlled. Main presentation appears consistent with heart failure and continue diuretics. If continued elevated blood pressures, we will add hydralazine, Imdur or Aldactone. Continue with IV diuresis. Will follow. Objective - Vital Signs Vital signs: Vital Signs Temp 97.8 F 03/09/23 04:00 Pulse 65 03/09/23 12:00 Resp 18 03/09/23 12:00 BP 128/73 03/09/23 12:00 Pulse Ox 99 03/09/23 12:00 FiO2 40 03/09/23 06:38 Intake & Output 03/08/23 03/09/23 03/09/23 18:59 06:59 18:59 Intake Total 610 118 Output Total 1300 1125 825 Balance -724 -4486 -107 Intake: Oral 610 118 Output: Urine 1300 1125 825 Other: Voiding Method Indwelling Catheter Indwelling Catheter Indwelling Catheter - Labs CBC & Chem 7: 03/09/23 10:37 03/09/23 10:37 Labs: Abnormal Lab Results - Last 24 Hours (Table) 03/08/23 03/08/23 03/09/23 Range/Units 18:00 23:57 10:37 Hgb 10.1 L (11.4-16.0) gm/dL MCH 23.1 L (25.0-35.0) pg MCHC 26.8 L (31.0-37.0) g/dL RDW 18.5 H (11.5-15.5) % Plt Count 148 L (150-450) k/uL Lymphocytes # 0.7 L (1.0-4.8) k/uL Chloride (98-107) mmol/L BUN (7-17) mg/dL Creatinine (0.52-1.04) mg/dL Glucose (74-99) mg/dL POC Glucose (mg/dL) 117 H 117 H (70-110) mg/dL Calcium (8.4-10.2) mg/dL Albumin (3.5-5.0) g/dL 03/09/23 Range/Units 10:37 Hgb (11.4-16.0) gm/dL MCH (25.0-35.0) pg MCHC (31.0-37.0) g/dL RDW (11.5-15.5) % Plt Count (150-450) k/uL Lymphocytes # (1.0-4.8) k/uL Chloride 108 H (98-107) mmol/L BUN 29 H (7-17) mg/dL Creatinine 2.45 H (0.52-1.04) mg/dL Glucose 116 H (74-99) mg/dL POC Glucose (mg/dL) (70-110) mg/dL Calcium 8.3 L (8.4-10.2) mg/dL Albumin 3.1 L (3.5-5.0) g/dL
[2023-03-09] MEDS: ACETAMINOPHEN TAB 325 MG TAB PO PRN (16:41)
[2023-03-10 00:42] LABS: Glucose,Whole Blood 106 mg/dL (70-110)
[2023-03-10 05:52] LABS: Glucose,Whole Blood 86 mg/dL (70-110)
[2023-03-10] MEDS: PANTOPRAZOLE 40 MG/10 ML VIAL IV SCH (08:02)
[2023-03-10] MEDS: FUROSEMIDE 10 MG/ML 4 ML VIAL IV SCH ×2 (08:02→20:12)
[2023-03-10] MEDS: HEPARIN SODIUM,PORCINE/PF 5,000 UNIT/0.5 ML SYRINGE SQ SCH ×2 (08:02→20:13)
[2023-03-10] MEDS: NYSTATIN 100,000 UNIT/GM POWD 15 GM TOPICAL SCH ×2 (08:03→20:13)
[2023-03-10] MEDS: PSYLLIUM HUSK 100% 6 GM PACKET PO SCH ×3 (08:03→20:03)
[2023-03-10] MEDS: carvediloL 12.5 MG TAB PO SCH ×2 (08:03→17:37)
[2023-03-10] MEDS: acetaZOLAMIDE 250 MG TAB PO SCH (08:03)
[2023-03-10] MEDS: FOLIC ACID 1 MG TAB PO SCH (08:03)
[2023-03-10] MEDS: MAGNESIUM OXIDE 400 MG TAB PO SCH (08:03)
[2023-03-10] MEDS: ASPIRIN 81 MG PO SCH (08:03)
[2023-03-10] MEDS: BACLOFEN 10 MG TAB PO SCH (08:03)
[2023-03-10 11:39] LABS: Glucose,Whole Blood 104 mg/dL (70-110)
[2023-03-10] MEDS: NIFEdipine XL 90 MG TAB.ER.24 PO SCH (12:05)
--- NOTE | 2023-03-10 12:34 | P.PN ---
Subjective Progress Note Date: 03/10/23 HISTORY OF PRESENT ILLNESS: This is a 47-year-old female with a past medical history significant for ob structive sleep apnea was noncompliant with CPAP, chronic kidney disease, congestive heart failure, hypertension, chronic left upper extremity edema, and morbid obesity. 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 We have been asked to see the patient in consultation for congestive heart failure. Patient somewhat confused however able to state she has been having increased shortness breath as well as some lightheadedness over the last few days. She denies any fevers, chills, cough. Apparently she was getting up to date in her wheelchair and then fell down. She is not overly active and does very minimal walking. She has had increased lower extremity edema. She states she is compliant with medications however has had labile blood pressures and throughout hospitalization blood pressures systolics 100s up to 200s. She was started on nitroglycerin drip and appears she is on carvedilol 50 mg twice a day at home. She states PCP started the Catapres. She denies any chest pain or pressure. She has been receiving IV Lasix 40 mg IV every 8 hours with good urine output. Creatinine stable at 2.1. * Most recent echocardiogram obtained in October 2021 revealed ejection fraction 45-50% with mild MR * Limited echo obtained in June 2022 revealed ejection fraction 55-60% 03/08 Seen and examined. Patient denies any chest pain or pressure. She is much more alert today. She has been maintained on diuretics with creatinine stable at 2.1. She denies any lightheadedness or dizziness. She states she has been taking her medications at home. She is unclear why she was confused when she first came in. Blood pressures better controlled 110s to 130s. She states normally her blood pressure is better controlled. 03/09 Patient seen and examined. She reports still feeling short of breath however her breathing is somewhat better. Denies any chest pain or dizziness. Blood pressure better controlled 110-120's. Chest x-ray today limited due to patient body habitus, shows ongoing mid and lower lung airspace disease suggestive of pulmonary edema. Creat 2.45. 03/10 She believes that her breathing is the same, no worse. No chest pain. BP is 110- 140's. AM labs are still pending. PHYSICAL EXAM: VITAL SIGNS: Reviewed. GENERAL: Obese, in no acute distress. HEENT: Head is normocephalic. Pupils are equal, round. Sclerae anicteric. Mucous membranes of the mouth are moist. LUNGS: Respirations even and unlabored. Lungs essentially clear to auscultation bilaterally, diminished. HEART: Regular rate and rhythm. S1 and S2 heard. ABDOMEN: Soft. Nondistended. Nontender. EXTREMITIES: Normal range of motion. No clubbing or cyanosis. Peripheral pulses intact. 2+ bilateral lower extremity edema NEUROLOGIC: Awake and alert. Oriented x 3. ASSESSMENT: Acute on chronic heart failure with preserved ejection fraction, most recent echo reveals EF 55-60% Hypertension, extremely labile Chronic kidney disease Obstructive sleep apnea, not utilizing CPAP at home Chronic left upper extremity swelling Morbid obesity Altered mental status Fall, appears mechanical by history PLAN: Blood pressure appears better controlled. Main presentation appears consistent with heart failure. Continue with IV diuresis for now. Monitor kidney function, BMP is pending. Will follow. Objective - Vital Signs Vital signs: Vital Signs Temp 97.5 F L 03/10/23 00:00 Pulse 70 03/10/23 08:00 Resp 20 03/10/23 08:00 BP 130/82 03/10/23 08:00 Pulse Ox 95 03/10/23 08:00 FiO2 40 03/10/23 04:42 Intake & Output 03/09/23 03/10/23 03/10/23 18:59 06:59 18:59 Intake Total 354 598 Output Total 1850 1300 1000 Balance -1496 -1300 -402 Intake: Oral 354 598 Output: Urine 1850 1300 1000 Other: Voiding Method Indwelling Catheter Indwelling Catheter Indwelling Catheter - Labs CBC & Chem 7: 03/09/23 10:37 03/09/23 10:37 Labs: Abnormal Lab Results - Last 24 Hours (Table) 03/09/23 03/09/23 Range/Units 10:37 10:37 Hgb 10.1 L (11.4-16.0) gm/dL MCH 23.1 L (25.0-35.0) pg MCHC 26.8 L (31.0-37.0) g/dL RDW 18.5 H (11.5-15.5) % Plt Count 148 L (150-450) k/uL Lymphocytes # 0.7 L (1.0-4.8) k/uL Chloride 108 H (98-107) mmol/L BUN 29 H (7-17) mg/dL Creatinine 2.45 H (0.52-1.04) mg/dL Glucose 116 H (74-99) mg/dL Calcium 8.3 L (8.4-10.2) mg/dL Albumin 3.1 L (3.5-5.0) g/dL
[2023-03-10] MEDS: ACETAMINOPHEN TAB 325 MG TAB PO PRN ×2 (15:18→21:00)
[2023-03-10 16:16] LABS: African American GFR (CKD) 27 (>60 ml/min/1.73 sqM); Anion Gap 6 mmol/L; Blood Urea Nitrogen 28 mg/dL (7-17); Calcium 8.2 mg/dL (8.4-10.2); Carbon Dioxide 31 mmol/L (22-30); Chloride 106 mmol/L (98-107); Glucose 104 mg/dL (74-99); Non-African American GFR(CKD) 23 (>60 ml/min/1.73 sqM); Potassium 4.1 mmol/L (3.5-5.1); Sodium 143 mmol/L (137-145)
[2023-03-10 16:41] LABS: Glucose,Whole Blood 96 mg/dL (70-110)
[2023-03-10] MEDS: cloNIDine HCL 0.1 MG TAB PO SCH (20:58)
[2023-03-11 00:06] LABS: Glucose,Whole Blood 98 mg/dL (70-110)
[2023-03-11] MEDS: NITROGLYCERIN-D5W PMX 50 MG in DEXTROSE/WATER 1 250ML.BAG IV SCH (02:02)
[2023-03-11 06:04] LABS: Glucose,Whole Blood 91 mg/dL (70-110)
[2023-03-11] MEDS: carvediloL 12.5 MG TAB PO SCH ×2 (06:23→16:17)
--- NOTE | 2023-03-11 08:08 | PN ---
PROGRESS NOTE DATE OF SERVICE: 03/10/2023 CHIEF COMPLAINT: Acute on chronic congestive heart failure, renal failure, morbid obesity. HISTORY OF PRESENT ILLNESS: This lady's condition is just about the same. Renal function remains compromised. Other than that, she is more or less stable. REVIEW OF SYSTEMS: She is not complaining of any chest pain, abdominal pain, shortness of breath, etc. PHYSICAL EXAMINATION: VITAL SIGNS: Normal. CHEST: Demonstrates good breath sounds bilaterally. CARDIAC: Demonstrates sinus rhythm. ABDOMEN: Protuberant. EXTREMITIES: Unchanged. IMPRESSION: 1. Acute congestive heart failure. 2. Chronic congestive heart failure. 3. Cardiomyopathy. 4. Morbid obesity. 5. Pickwickian syndrome. 6. Sleep apnea. 7. Renal failure. PLAN: Continue inpatient management until she is cleared for discharge by Nephrology and Cardiology. Her prognosis is poor and she is not likely to improve until she becomes more compliant with her medications and possible weight loss. MMODL / IJN: [id number] /
--- NOTE | 2023-03-11 08:23 | PN ---
PROGRESS NOTE DATE OF SERVICE: 03/09/2023 CHIEF COMPLAINT: Congestive heart failure. HISTORY OF PRESENT ILLNESS: This lady is fairly comfortable since she has been moved out of ICU. She is not particularly short of breath. Renal function is poor. PHYSICAL EXAMINATION: GENERAL: She is not nauseated. CHEST: Clear. CARDIAC: Normal. ABDOMEN: Protuberant and nontender. IMPRESSION: 1. Acute congestive heart failure. 2. Chronic congestive heart failure. 3. Cardiomyopathy. 4. Morbid obesity. 5. Sleep apnea. 6. Pickwickian syndrome. 7. CKD. PLAN: Continue with diuresis and follow with Nephrology regarding the renal failure. MMODL / IJN: [id number] /
--- NOTE | 2023-03-11 08:36 | HP ---
HISTORY AND PHYSICAL CHIEF COMPLAINT: Acute shortness of breath. HISTORY OF PRESENT ILLNESS: This is another admission for this 47-year-old morbidly obese -[place] female. She is in and out of the hospital for congestive heart failure. She is unable to ambulate. She has Pickwickian syndrome and sleep apnea. She has cardiomyopathy. She is not compliant. She does not stay in touch with the office or take medications. REVIEW OF SYSTEMS: She denies chest pain, syncope, abdominal pain, etc. PAST MEDICAL HISTORY, FAMILY HISTORY, PERSONAL AND SOCIAL HISTORIES: Unchanged from her recent admitting and discharge summaries, which are several and it is not known if she is taking her medications. In the emergency room, her laboratory studies revealed a normal blood sugar with a white count of 6000, hemoglobin 10.4. BUN was 29 and creatinine 2.12. PHYSICAL EXAMINATION: VITAL SIGNS: Blood pressure is 108/74 with a pulse of 86, respirations of 37. GENERAL: She is morbidly obese. She is awake and alert. HEENT: Head, ears, eyes, nose, and mouth are normal. CHEST: Reveals good breath sounds bilaterally. CARDIAC: Demonstrates sinus rhythm. ABDOMEN: Protuberant without any definite masses or tenderness. EXTREMITIES: Reveal her extent is her severe adiposity. NEUROLOGICAL: She is intact, but she is nonambulatory. She is bed-bound. IMPRESSION: 1. Acute congestive heart failure. 2. Chronic congestive heart failure. 3. Cardiomyopathy. 4. Morbid obesity. 5. Sleep apnea. 6. Pickwickian syndrome. 7. Anemia. 8. Renal failure. PLAN: 1. Bedrest. 2. IV fluids. 3. Diuresis. 4. Cardiology consult. MMODL / IJN: [id number] /
--- NOTE | 2023-03-11 08:38 | PN ---
PROGRESS NOTE CHIEF COMPLAINT: Acute congestive heart failure. HISTORY OF PRESENT ILLNESS: This lady is stable and doing slightly better. She is little bit less short of breath. PHYSICAL EXAMINATION: CHEST: Demonstrates breath sounds bilaterally. CARDIAC: Normal. ABDOMEN: Protuberant soft. IMPRESSION: 1. Acute congestive heart failure. 2. Chronic congestive heart failure. 3. Cardiomyopathy. 4. Morbid obesity. 5. Pickwickian syndrome. 6. NIR. PLAN: Continue with diuresis and she is being followed by Cardiology. MMODL / IJN: [id number] /
[2023-03-11] MEDS: MAGNESIUM OXIDE 400 MG TAB PO SCH (09:27)
[2023-03-11] MEDS: FOLIC ACID 1 MG TAB PO SCH (09:27)
[2023-03-11] MEDS: PSYLLIUM HUSK 100% 6 GM PACKET PO SCH ×2 (09:27→16:17)
[2023-03-11] MEDS: FUROSEMIDE 10 MG/ML 4 ML VIAL IV SCH (09:27)
[2023-03-11] MEDS: ASPIRIN 81 MG PO SCH (09:27)
[2023-03-11] MEDS: acetaZOLAMIDE 250 MG TAB PO SCH (09:27)
[2023-03-11] MEDS: BACLOFEN 10 MG TAB PO SCH (09:27)
[2023-03-11] MEDS: PANTOPRAZOLE 40 MG/10 ML VIAL IV SCH (09:28)
[2023-03-11] MEDS: HEPARIN SODIUM,PORCINE/PF 5,000 UNIT/0.5 ML SYRINGE SQ SCH ×2 (09:28→19:27)
[2023-03-11] MEDS: NYSTATIN 100,000 UNIT/GM POWD 15 GM TOPICAL SCH ×2 (09:28→19:26)
[2023-03-11 11:43] LABS: Glucose,Whole Blood 84 mg/dL (70-110)
[2023-03-11] MEDS: NIFEdipine XL 90 MG TAB.ER.24 PO SCH (12:44)
--- NOTE | 2023-03-11 12:58 | P.PN ---
Subjective Progress Note Date: 03/11/23 HISTORY OF PRESENT ILLNESS: This is a 47-year-old female with a past medical history significant for obstructive sleep apnea was noncompliant with CPAP, chronic kidney disease, charla estive heart failure, hypertension, chronic left upper extremity edema, and morbid obesity. 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 We have been asked to see the patient in consultation for congestive heart failure. Patient somewhat confused however able to state she has been having increased shortness breath as well as some lightheadedness over the last few days. She denies any fevers, chills, cough. Apparently she was getting up to date in her wheelchair and then fell down. She is not overly active and does very minimal walking. She has had increased lower extremity edema. She states she is compliant with medications however has had labile blood pressures and throughout hospital ization blood pressures systolics 100s up to 200s. She was started on nitroglycerin drip and appears she is on carvedilol 50 mg twice a day at home. She states PCP started the Catapres. She denies any chest pain or pressure. She has been receiving IV Lasix 40 mg IV every 8 hours with good urine output. Creatinine stable at 2.1. * Most recent echocardiogram obtained in October 2021 revealed ejection fraction 45-50% with mild MR * Limited echo obtained in June 2022 revealed ejection fraction 55-60% 03/08 Seen and examined. Patient denies any chest pain or pressure. She is much more alert today. She has been maintained on diuretics with creatinine stable at 2.1. She denies any lightheadedness or dizziness. She states she has been taking her medications at home. She is unclear why she was confused when she first came in. Blood pressures better controlled 110s to 130s. She states normally her blood pressure is better controlled. 03/09 Patient seen and examined. She reports still feeling short of breath however her breathing is somewhat better. Denies any chest pain or dizziness. Blood pressure better controlled 110-120's. Chest x-ray today limited due to patient body habitus, shows ongoing mid and lower lung airspace disease suggestive of pulmonary edema. Creat 2.45. 03/10 She believes that her breathing is the same, no worse. No chest pain. BP is 110- 140's. AM labs are still pending. 03/11/2023 Patient examined this morning at the bedside. Patient denies any chest pain or pressure. She currently denies shortness of breath. She remains on IV Lasix. Vital signs are stable. Creatinine yesterday 3.29. No repeat creatinine ordered for today. PHYSICAL EXAM: VITAL SIGNS: Reviewed. GENERAL: Well-developed in no acute distress. NECK: Supple. No JVD or thyromegaly LUNGS: Respirations even and unlabored. Lungs essentially clear to auscultation bilaterally. HEART: Regular rate and rhythm. S1 and S2 heard. EXTREMITIES: Normal range of motion. No clubbing or cyanosis. Peripheral pulses intact. Minimal lower extremity edema ASSESSMENT: Acute on chronic heart failure with preserved ejection fraction, most recent echo reveals EF 55-60% Hypertension, extremely labile, improved Chronic kidney disease Obstructive sleep apnea, not utilizing CPAP at home Chronic left upper extremity swelling Morbid obesity Altered mental status Fall, appears mechanical by history PLAN: Continue current cardiac medications Discontinue IV Lasix. Resume oral Lasix 80 mg twice a day Begin Zaroxolyn 2.5 mg Saturday, Saturday, and Saturday Repeat kidney function in a.m. Further recommendations pending patient's course Nurse practitioner note has been reviewed by physician. Signing provider agrees with the documented findings, assessment, and plan of care. Objective - Vital Signs Vital signs: Vital Signs Temp 98.3 F 03/11/23 12:48 Pulse 80 03/11/23 12:48 Resp 18 03/11/23 12:48 BP 127/81 03/11/23 12:48 Pulse Ox 98 03/11/23 12:48 FiO2 40 03/11/23 05:01 Intake & Output 03/10/23 03/11/23 03/11/23 18:59 06:59 18:59 Intake Total 1468 240 Output Total 1999 1100 Balance -532 -1100 240 Weight 186.5 kg Intake: Oral 1468 240 Output: Urine 1999 1100 Other: Voiding Method Indwelling Catheter Indwelling Catheter External Catheter # Voids 1 - Labs CBC & Chem 7: 03/09/23 10:37 03/10/23 15:31 Labs: Abnormal Lab Results - Last 24 Hours (Table) 03/10/23 Range/Units 15:31 Carbon Dioxide 31 H (22-30) mmol/L BUN 28 H (7-17) mg/dL Creatinine 2.39 H (0.52-1.04) mg/dL Glucose 104 H (74-99) mg/dL Calcium 8.2 L (8.4-10.2) mg/dL
[2023-03-11] MEDS: FUROSEMIDE 80 MG TAB PO SCH (16:17)
[2023-03-11] MEDS: metOLazone 2.5 MG TAB PO SCH (16:18)
[2023-03-11 18:00] LABS: Glucose,Whole Blood 133 mg/dL (70-110)
[2023-03-11] MEDS: polyethylene glycoL 3350 17 GM POWD.PACK PO SCH (19:27)
[2023-03-11 23:34] LABS: Glucose,Whole Blood 118 mg/dL (70-110)
[2023-03-12 05:48] LABS: Glucose,Whole Blood 91 mg/dL (70-110)
[2023-03-12] MEDS: carvediloL 12.5 MG TAB PO SCH ×2 (06:35→17:02)
[2023-03-12 08:18] LABS: African American GFR (CKD) 30 (>60 ml/min/1.73 sqM); Anion Gap 4 mmol/L; Blood Urea Nitrogen 27 mg/dL (7-17); Calcium 8.5 mg/dL (8.4-10.2); Carbon Dioxide 34 mmol/L (22-30); Chloride 104 mmol/L (98-107); Glucose 83 mg/dL (74-99); Non-African American GFR(CKD) 26 (>60 ml/min/1.73 sqM); Potassium 4.6 mmol/L (3.5-5.1); Sodium 142 mmol/L (137-145)
[2023-03-12] MEDS: ASPIRIN 81 MG PO SCH (09:15)
[2023-03-12] MEDS: FOLIC ACID 1 MG TAB PO SCH (09:15)
[2023-03-12] MEDS: FUROSEMIDE 80 MG TAB PO SCH ×2 (09:15→17:02)
[2023-03-12] MEDS: acetaZOLAMIDE 250 MG TAB PO SCH (09:15)
[2023-03-12] MEDS: NYSTATIN 100,000 UNIT/GM POWD 15 GM TOPICAL SCH ×2 (09:16→21:11)
[2023-03-12] MEDS: HEPARIN SODIUM,PORCINE/PF 5,000 UNIT/0.5 ML SYRINGE SQ SCH ×2 (09:16→21:11)
[2023-03-12] MEDS: PANTOPRAZOLE 40 MG/10 ML VIAL IV SCH (09:16)
[2023-03-12] MEDS: MAGNESIUM OXIDE 400 MG TAB PO SCH (09:16)
[2023-03-12] MEDS: polyethylene glycoL 3350 17 GM POWD.PACK PO SCH ×3 (09:16→21:04)
[2023-03-12] MEDS: BACLOFEN 10 MG TAB PO SCH (09:16)
--- NOTE | 2023-03-12 10:57 | P.PN ---
Subjective Progress Note Date: 03/12/23 HISTORY OF PRESENT ILLNESS: This is a 47-year-old female with a past medical history significant for obstructive sleep apnea was noncompliant with CPAP, chronic kidney disease, charla estive heart failure, hypertension, chronic left upper extremity edema, and morbid obesity. 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 We have been asked to see the patient in consultation for congestive heart failure. Patient somewhat confused however able to state she has been having increased shortness breath as well as some lightheadedness over the last few days. She denies any fevers, chills, cough. Apparently she was getting up to date in her wheelchair and then fell down. She is not overly active and does very minimal walking. She has had increased lower extremity edema. She states she is compliant with medications however has had labile blood pressures and throughout hospital ization blood pressures systolics 100s up to 200s. She was started on nitroglycerin drip and appears she is on carvedilol 50 mg twice a day at home. She states PCP started the Catapres. She denies any chest pain or pressure. She has been receiving IV Lasix 40 mg IV every 8 hours with good urine output. Creatinine stable at 2.1. * Most recent echocardiogram obtained in October 2021 revealed ejection fraction 45-50% with mild MR * Limited echo obtained in June 2022 revealed ejection fraction 55-60% 03/08 Seen and examined. Patient denies any chest pain or pressure. She is much more alert today. She has been maintained on diuretics with creatinine stable at 2.1. She denies any lightheadedness or dizziness. She states she has been taking her medications at home. She is unclear why she was confused when she first came in. Blood pressures better controlled 110s to 130s. She states normally her blood pressure is better controlled. 03/09 Patient seen and examined. She reports still feeling short of breath however her breathing is somewhat better. Denies any chest pain or dizziness. Blood pressure better controlled 110-120's. Chest x-ray today limited due to patient body habitus, shows ongoing mid and lower lung airspace disease suggestive of pulmonary edema. Creat 2.45. 03/10 She believes that her breathing is the same, no worse. No chest pain. BP is 110- 140's. AM labs are still pending. 03/11/2023 Patient examined this morning at the bedside. Patient denies any chest pain or pressure. She currently denies shortness of breath. She remains on IV Lasix. Vital signs are stable. Creatinine yesterday 3.29. No repeat creatinine ordered for today. 03/12/2023 Patient examined this morning at the bedside. Patient denies chest pain or pres sure. She currently denies shortness of breath. She has been transitioned to oral Lasix yesterday. Creatinine slightly improved today at 2.21. Vital signs are stable. PHYSICAL EXAM: VITAL SIGNS: Reviewed. GENERAL: Well-developed in no acute distress. NECK: Supple. No JVD or thyromegaly LUNGS: Respirations even and unlabored. Lungs essentially clear to auscultation bilaterally. HEART: Regular rate and rhythm. S1 and S2 heard. EXTREMITIES: Normal range of motion. No clubbing or cyanosis. Peripheral pulses intact. Minimal lower extremity edema ASSESSMENT: Acute on chronic heart failure with preserved ejection fraction, most recent echo reveals EF 55-60% Hypertension, extremely labile, improved Chronic kidney disease Obstructive sleep apnea, not utilizing CPAP at home Chronic left upper extremity swelling Morbid obesity Altered mental status Fall, appears mechanical by history PLAN: Continue current cardiac medications Increase activity as tolerated Patient is currently stable from a cardiac standpoint for discharge. Patient is requesting to stay an additional 24 hours. Will defer discharge to her primary physician. Further recommendations pending patient's course Nurse practitioner note has been reviewed by physician. Signing provider agrees with the documented findings, assessment, and plan of care. Objective - Vital Signs Vital signs: Vital Signs Temp 97.7 F 03/12/23 08:00 Pulse 78 03/12/23 09:59 Resp 17 03/12/23 09:59 BP 133/92 03/12/23 08:00 Pulse Ox 97 03/12/23 08:00 FiO2 40 03/12/23 04:29 Intake & Output 03/11/23 03/12/23 03/12/23 18:59 06:59 18:59 Intake Total 600 Output Total 2100 550 1600 Balance -1500 -550 -1600 Intake: Oral 600 Output: Urine 2100 550 1600 Other: Voiding Method External Catheter External Catheter External Catheter # Voids 1 # Bowel Movements 1 - Labs CBC & Chem 7: 03/09/23 10:37 03/12/23 07:18 Labs: Abnormal Lab Results - Last 24 Hours (Table) 03/11/23 03/11/23 03/12/23 Range/Units 17:58 23:33 07:18 Carbon Dioxide 34 H (22-30) mmol/L BUN 27 H (7-17) mg/dL Creatinine 2.21 H (0.52-1.04) mg/dL POC Glucose (mg/dL) 133 H 118 H (70-110) mg/dL
[2023-03-12 11:37] LABS: Glucose,Whole Blood 81 mg/dL (70-110)
[2023-03-12] MEDS: ACETAMINOPHEN TAB 325 MG TAB PO PRN (13:01)
[2023-03-12] MEDS: NIFEdipine XL 90 MG TAB.ER.24 PO SCH (13:02)
[2023-03-12 17:58] LABS: Glucose,Whole Blood 106 mg/dL (70-110)
--- NOTE | 2023-03-12 23:11 | PN ---
PROGRESS NOTE DATE OF SERVICE: 03/11/2023 CHIEF COMPLAINT: Congestive heart failure. HISTORY OF PRESENT ILLNESS: This lady is improving. She is not having any chest pain. PHYSICAL EXAMINATION: VITAL SIGNS: Normal. CHEST: Clear. CARDIAC: Normal. ABDOMEN: Protuberant. IMPRESSION: 1. Acute congestive heart failure. 2. Chronic congestive heart failure. 3. Cardiomyopathy. 4. Pickwickian syndrome. 5. Morbid obesity. 6. Sleep apnea. 7. Renal failure. PLAN: Continue with diuresis. She is probably able to go home soon. MMODL / IJN: [id number] /
--- NOTE | 2023-03-12 23:17 | PN ---
PROGRESS NOTE DATE OF SERVICE: 03/12/2023 CHIEF COMPLAINT: Congestive heart failure. HISTORY OF PRESENT ILLNESS: This lady is doing well. There has been no interval change. Renal function is about the same with a BUN of 28 and creatinine of 2.39. PHYSICAL EXAMINATION: LUNGS: She has good breath sounds bilaterally. She is not tachypneic. CARDIAC: Unchanged. ABDOMEN: Soft. IMPRESSION: 1. Acute congestive heart failure. 2. Chronic congestive heart failure. 3. Cardiomyopathy. 4. Sleep apnea. 5. Pickwickian syndrome. 6. Renal failure. PLAN: She is probably fairly stable and can probably go home soon with a poor prognosis. MMODL / IJN: [id number] /
[2023-03-13 00:04] LABS: Glucose,Whole Blood 100 mg/dL (70-110)
[2023-03-13 05:56] LABS: Glucose,Whole Blood 84 mg/dL (70-110)
[2023-03-13] MEDS: carvediloL 12.5 MG TAB PO SCH ×2 (06:24→15:26)
[2023-03-13] MEDS: HEPARIN SODIUM,PORCINE/PF 5,000 UNIT/0.5 ML SYRINGE SQ SCH ×2 (08:31→21:20)
[2023-03-13] MEDS: acetaZOLAMIDE 250 MG TAB PO SCH (08:32)
[2023-03-13] MEDS: BACLOFEN 10 MG TAB PO SCH (08:32)
[2023-03-13] MEDS: FUROSEMIDE 80 MG TAB PO SCH ×2 (08:32→15:26)
[2023-03-13] MEDS: PANTOPRAZOLE 40 MG/10 ML VIAL IV SCH (08:32)
[2023-03-13] MEDS: NYSTATIN 100,000 UNIT/GM POWD 15 GM TOPICAL SCH ×2 (08:32→21:21)
[2023-03-13] MEDS: MAGNESIUM OXIDE 400 MG TAB PO SCH (08:32)
[2023-03-13] MEDS: ASPIRIN 81 MG PO SCH (08:32)
[2023-03-13] MEDS: polyethylene glycoL 3350 17 GM POWD.PACK PO SCH ×3 (08:32→21:20)
[2023-03-13] MEDS: FOLIC ACID 1 MG TAB PO SCH (08:32)
[2023-03-13] MEDS: metOLazone 2.5 MG TAB PO SCH (11:27)
[2023-03-13] MEDS: NIFEdipine XL 90 MG TAB.ER.24 PO SCH (11:27)
--- NOTE | 2023-03-13 11:36 | P.PN ---
Subjective Progress Note Date: 03/13/23 HISTORY OF PRESENT ILLNESS: This is a 47-year-old female with a past medical history significant for obstructive sleep apnea was noncompliant with CPAP, chronic kidney disease, charla estive heart failure, hypertension, chronic left upper extremity edema, and morbid obesity. 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 We have been asked to see the patient in consultation for congestive heart failure. Patient somewhat confused however able to state she has been having increased shortness breath as well as some lightheadedness over the last few days. She denies any fevers, chills, cough. Apparently she was getting up to date in her wheelchair and then fell down. She is not overly active and does very minimal walking. She has had increased lower extremity edema. She states she is compliant with medications however has had labile blood pressures and throughout hospital ization blood pressures systolics 100s up to 200s. She was started on nitroglycerin drip and appears she is on carvedilol 50 mg twice a day at home. She states PCP started the Catapres. She denies any chest pain or pressure. She has been receiving IV Lasix 40 mg IV every 8 hours with good urine output. Creatinine stable at 2.1. * Most recent echocardiogram obtained in October 2021 revealed ejection fraction 45-50% with mild MR * Limited echo obtained in June 2022 revealed ejection fraction 55-60% 03/08 Seen and examined. Patient denies any chest pain or pressure. She is much more alert today. She has been maintained on diuretics with creatinine stable at 2.1. She denies any lightheadedness or dizziness. She states she has been taking her medications at home. She is unclear why she was confused when she first came in. Blood pressures better controlled 110s to 130s. She states normally her blood pressure is better controlled. 03/09 Patient seen and examined. She reports still feeling short of breath however her breathing is somewhat better. Denies any chest pain or dizziness. Blood pressure better controlled 110-120's. Chest x-ray today limited due to patient body habitus, shows ongoing mid and lower lung airspace disease suggestive of pulmonary edema. Creat 2.45. 03/10 She believes that her breathing is the same, no worse. No chest pain. BP is 110- 140's. AM labs are still pending. 03/11/2023 Patient examined this morning at the bedside. Patient denies any chest pain or pressure. She currently denies shortness of breath. She remains on IV Lasix. Vital signs are stable. Creatinine yesterday 3.29. No repeat creatinine ordered for today. 03/12/2023 Patient examined this morning at the bedside. Patient denies chest pain or pres sure. She currently denies shortness of breath. She has been transitioned to oral Lasix yesterday. Creatinine slightly improved today at 2.21. Vital signs are stable. 03/13/2023 Patient examined this morning at the bedside. Patient denies chest pain or pressure. She denies shortness of breath. Vital signs are stable. PHYSICAL EXAM: VITAL SIGNS: Reviewed. GENERAL: Well-developed in no acute distress. NECK: Supple. No JVD or thyromegaly LUNGS: Respirations even and unlabored. Lungs essentially clear to auscultation bilaterally. HEART: Regular rate and rhythm. S1 and S2 heard. EXTREMITIES: Normal range of motion. No clubbing or cyanosis. Peripheral pulses intact. Minimal lower extremity edema ASSESSMENT: Acute on chronic heart failure with preserved ejection fraction, most recent echo reveals EF 55-60% Hypertension, extremely labile, improved Chronic kidney disease Obstructive sleep apnea, not utilizing CPAP at home Chronic left upper extremity swelling Morbid obesity Altered mental status Fall, appears mechanical by history PLAN: Continue current cardiac medications Increase activity as tolerated Patient is currently stable from a cardiac standpoint for discharge. We will sign off. Please reconsult if needed. Nurse practitioner note has been reviewed by physician. Signing provider agrees with the documented findings, assessment, and plan of care. Objective - Vital Signs Vital signs: Vital Signs Temp 98.3 F 03/13/23 08:00 Pulse 70 03/13/23 08:00 Resp 18 03/13/23 08:00 BP 150/72 03/13/23 08:00 Pulse Ox 98 03/13/23 08:00 FiO2 40 03/13/23 05:03 Intake & Output 03/12/23 03/13/23 03/13/23 18:59 06:59 18:59 Intake Total 237 368 Output Total 3625 1300 1000 Balance -3388 -1300 -632 Intake: Oral 237 368 Output: Urine 3625 1300 1000 Other: Voiding Method External Catheter External Catheter External Catheter # Voids 2 - Labs CBC & Chem 7: 03/09/23 10:37 03/12/23 07:18
[2023-03-13 12:01] LABS: Glucose,Whole Blood 94 mg/dL (70-110)
[2023-03-13 16:51] LABS: Glucose,Whole Blood 81 mg/dL (70-110)
[2023-03-14 00:14] LABS: Glucose,Whole Blood 100 mg/dL (70-110)
[2023-03-14 06:16] LABS: Glucose,Whole Blood 86 mg/dL (70-110)
[2023-03-14] MEDS: carvediloL 12.5 MG TAB PO SCH (06:39)
[2023-03-14] MEDS: BACLOFEN 10 MG TAB PO SCH (09:13)
[2023-03-14] MEDS: FOLIC ACID 1 MG TAB PO SCH (09:13)
[2023-03-14] MEDS: acetaZOLAMIDE 250 MG TAB PO SCH (09:13)
[2023-03-14] MEDS: FUROSEMIDE 80 MG TAB PO SCH (09:13)
[2023-03-14] MEDS: ASPIRIN 81 MG PO SCH (09:13)
[2023-03-14] MEDS: MAGNESIUM OXIDE 400 MG TAB PO SCH (09:14)
[2023-03-14] MEDS: PANTOPRAZOLE 40 MG/10 ML VIAL IV SCH (09:14)
[2023-03-14] MEDS: HEPARIN SODIUM,PORCINE/PF 5,000 UNIT/0.5 ML SYRINGE SQ SCH (09:14)
[2023-03-14] MEDS: NYSTATIN 100,000 UNIT/GM POWD 15 GM TOPICAL SCH (09:15)
[2023-03-14] MEDS: polyethylene glycoL 3350 17 GM POWD.PACK PO SCH (09:19)
[2023-03-14] MEDS: NIFEdipine XL 90 MG TAB.ER.24 PO SCH (11:49)
[2023-03-14 11:52] VITALS: BP 133/77; PULSE 75; TEMP 98.9
[2023-03-14 12:04] LABS: Glucose,Whole Blood 85 mg/dL (70-110)
[2023-03-14 13:52] VITALS: RESP 19
--- NOTE | 2023-03-15 02:31 | PN ---
PROGRESS NOTE DATE OF SERVICE: 03/13/2023 CHIEF COMPLAINT: Congestive heart failure. HISTORY OF PRESENT ILLNESS: This lady is doing well. Breathing is improved. She has been cleared by Cardiology. It is not clear where she will be going. She has been living with her mother and this has not been going well. PHYSICAL EXAMINATION: CHEST: Breath sounds are improved. CARDIAC: Normal. ABDOMEN: Protuberant. EXTREMITIES: Same. IMPRESSION: 1. Acute congestive heart failure. 2. Chronic congestive heart failure. 3. Cardiomyopathy. 4. Morbid obesity. 5. Pickwickian syndrome. 6. Sleep apnea. 7. Renal failure. PLAN: She will probably go home tomorrow the way things sound. MMODL / IJN: [id number] /
--- NOTE | 2023-03-15 05:28 | DS ---
DISCHARGE SUMMARY CHIEF COMPLAINT: Shortness of breath. HISTORY OF PRESENT ILLNESS AND PHYSICAL EXAMINATION: Details of this lady's history and physical can be found in the initial workup. LABORATORY STUDIES: While she is in the hospital, she had laboratory studies, details of which can be found in the laboratory section of her chart. COURSE IN THE HOSPITAL: After admission, she was placed on bedrest, started intravenous fluids and diuretics. She was seen and followed by Cardiology. As usual, her recovery was slow. She was completely bedridden. Eventually, heart failure was improved and she was doing well. BUN and creatinine were slowly coming down. It was felt that she could be discharged on the , but then her mother who had been taking care of her refused to take her. She was not a candidate for any other discharge location including nursing homes, rehab facilities, assisted living, etc. propagation worker stated that she had no place to go and that she had to leave the hospital. I shared my concerns that this was a safety issue because I was not sure that when she was taken home by a van that she would be taken in. propagation worker said that we could do nothing else and that she would contact Adult Protective Services to ensure that there was followup. She will be discharged home and will be followed up by [facility] if all goes well. FINAL DIAGNOSES: 1. Acute congestive heart failure. 2. Chronic congestive heart failure. 3. Cardiomyopathy. 4. Pickwickian syndrome. 5. Sleep apnea. 6. Morbid obesity. 7. Chronic kidney disease. OPERATIONS: None. CONSULTATIONS: Cardiology and Nephrology. She is improved. MMODL / IJN: [id number] /
== END 2023-03-14 16:00 | disposition home health service (06) | DRG 194 ==
LOC: EC 13:35 → 2SICU 22:09 → 3SCARD 03-08 16:01
PROVIDERS: ADMIT Family Medicine; ATTEND Family Medicine
DX: I13.0 Hypertensive heart and chronic kidney disease with heart failure and stage 1 through stage 4 chronic kidney disease, or unspecified chronic kidney disease (principal); I50.33 Acute on chronic diastolic (congestive) heart failure; I25.10 Atherosclerotic heart disease of native coronary artery without angina pectoris; I16.0 Hypertensive urgency; J96.01 Acute respiratory failure with hypoxia; J96.02 Acute respiratory failure with hypercapnia; N17.9 Acute kidney failure, unspecified; N18.4 Chronic kidney disease, stage 4 (severe); I89.0 Lymphedema, not elsewhere classified; I42.9 Cardiomyopathy, unspecified; D63.1 Anemia in chronic kidney disease; E66.2 Morbid (severe) obesity with alveolar hypoventilation; Z68.44 Body mass index [BMI] 60.0-69.9, adult; E11.22 Type 2 diabetes mellitus with diabetic chronic kidney disease; W18.30XA Fall on same level, unspecified, initial encounter; Z79.82 Long term (current) use of aspirin; Z79.899 Other long term (current) drug therapy; Z86.718 Personal history of other venous thrombosis and embolism; Z74.01 Bed confinement status; Z82.49 Family history of ischemic heart disease and other diseases of the circulatory system; Z91.199 Patient's noncompliance with other medical treatment and regimen due to unspecified reason; Z99.81 Dependence on supplemental oxygen
CPT/HCPCS: 36415; 36600; 71045; 80048; 80053; 82805; 83605; 83735; 83880; 84484; 85025; 85610; 85730; 93005; 94660; 94760; 96365; 96366; 96375; 99291

== ENCOUNTER 2023-05-09 18:44 | Inpatient (IN) | payer OTHER ==
[2023-05-09] MEDS ORDERED: FUROSEMIDE 10 MG/ML 4 ML VIAL IV STA (19:46)
--- NOTE | 2023-05-09 20:01 | ED ---
General Adult HPI - General Chief complaint: Shortness of Breath Stated complaint: SOB Time Seen by Provider: 05/09/23 19:00 Source: patient, EMS, RN notes reviewed, old records reviewed Mode of arrival: EMS - History of Present Illness Initial comments: This is a 48-year-old female who presents to the emergency department complaining of difficulty breathing. Patient states she has a past medical history significant for high blood pressure and congestive heart failure. Graciela ent also stating that her legs were swollen than normal. Patient denies any chest pain or palpitations. Patient states she does have some chest tightness which is typical of her congestive heart failure. Patient denies any recent fever chills or cough. Patient denies any abdominal pain patient denies nausea vomiting diarrhea. Patient denies any injury. - Related Data Home Medications Medication Instructions Recorded Confirmed Omeprazole 20 mg PO DAILY 11/05/17 03/06/23 Acetaminophen Tab [Tylenol] 650 mg PO Q6H PRN 12/19/22 03/06/23 Aspirin 81 mg PO DAILY 12/19/22 03/06/23 Magnesium Oxide [Mag-Ox] 400 mg PO DAILY 12/19/22 03/06/23 Baclofen 10 mg PO DAILY 03/06/23 03/06/23 LORazepam [Ativan] 2 mg PO TID PRN 03/06/23 03/06/23 NIFEdipine XL [Procardia XL] 90 mg PO DAILY@1200 03/06/23 03/06/23 cloNIDine HCL [Catapres] 0.3 mg PO TID 03/06/23 03/06/23 Previous Rx's Medication Instructions Recorded Folic Acid 1 mg PO DAILY #30 tab 12/28/22 Furosemide [Lasix] 80 mg PO BID #60 tab 12/28/22 Nystatin 100,000 Unit/gm Powd 1 applic TOPICAL BID 30 Days #2 12/28/22 [Mycostatin Powder] each Psyllium Husk 100% [Metamucil 6 gm PO TID #90 packet 12/28/22 Packet] acetaZOLAMIDE [Diamox] 250 mg PO DAILY 30 Days #30 tab 12/28/22 carvediloL [Coreg] 50 mg PO BID #120 tablet 12/28/22 metOLazone [Zaroxolyn] 2.5 mg PO MOWEFR #30 tab 03/14/23 Allergies Allergy/AdvReac Type Severity Reaction Status Date / Time No Known Allergies Allergy Verified 05/09/23 18:58 Review of Systems ROS Statement: Those systems with pertinent positive or pertinent negative responses have been documented in the HPI. ROS Other: All systems not noted in ROS Statement are negative. Past Medical History Past Medical History: Coronary Artery Disease (CAD), Chest Pain / Angina, Heart Failure, Deep Vein Thrombosis (DVT), Hypertension, Osteoarthritis (OA), Renal Disease, Sleep Apnea/CPAP/BIPAP, Supraventricular Tachycardia (SVT) Additional Past Medical History / Comment(s): Pt recently admitted to [facility] on 07/03/22-07/15/22 with acute pulmonary edema. Other hx: Chronic CHF, home oxygen at 3L/NC prn, NIR/no device, previous ventilator dependent respiratory failure, sinus pauses, CKD stage IV, anemia, lymphedema, arthritis bilateral knees, hiatal hernia, diverticular disease, UTIs, constipation, urine and bowel incontinence. History of Any Multi-Drug Resistant Organisms: VRE Date of last positivie culture/infection: 05/03/20 MDRO Source:: VRE URINE Past Surgical History: Section, Hernia Repair Additional Past Surgical History / Comment(s): adominal hernia repair with mesh, cysts removed from stomach, EGD, colonoscopy Past Anesthesia/Blood Transfusion Reactions: No Reported Reaction Additional Past Anesthesia/Blood Transfusion Reaction / Comment(s): Pt has received blood in the past without reaction. Past Psychological History: Anxiety Smoking Status: Never smoker Past Alcohol Use History: None Reported Past Drug Use History: None Reported - Past Family History Father Family Medical History: Congestive Heart Failure (CHF) Additional Family Medical History / Comment(s): Father from CHF. Mother Family Medical History: Cancer, Hypertension, Sleep Apnea/CPAP/BIPAP Additional Family Medical History / Comment(s): Mother has had cancer removed from ear/head. General Exam - General Exam Comments Initial Comments: GENERAL: Patient is well-developed and well-nourished. Patient is nontoxic and well- hydrated and is in mild distress. ENT: Neck is soft and supple. No significant lymphadenopathy is noted. Oropharynx is clear. Moist mucous membranes. Neck has full range of motion without eliciting any pain. EYES: The sclera were anicteric and conjunctiva were pink and moist. Extraocular movements were intact and pupils were equal round and reactive to light. Eyelids were unremarkable. PULMONARY: Unlabored respirations. Good breath sounds bilaterally. Crackles at the bases CARDIOVASCULAR: There is a regular rate and rhythm without any murmurs gallops or rubs. ABDOMEN: Soft and nontender with normal bowel sounds. Morbidly obese SKIN: Skin is clear with no lesions or rashes and otherwise unremarkable. NEUROLOGIC: Patient is alert and oriented x3. Cranial nerves II through XII are grossly intact. Motor and sensory are also intact. Normal speech, volume and content. Symmetrical smile. MUSCULOSKELETAL: Normal extremities with adequate strength and full range of motion. 2+ edema bilaterally LYMPHATICS: No significant lymphadenopathy is noted PSYCHIATRIC: Normal psychiatric evaluation. Course Vital Signs 05/09/23 05/09/23 05/09/23 18:57 19:29 20:01 Temperature 98.6 F Pulse Rate 107 H 154 H Respiratory 20 20 22 Rate Blood Pressure 196/124 186/126 O2 Sat by Pulse 97 96 Oximetry 05/09/23 20:10 Temperature Pulse Rate 106 H Respiratory Rate Blood Pressure O2 Sat by Pulse Oximetry Medical Decision Making - Medical Decision Making EKG was interpreted by myself. EKG shows sinus tachycardia with occasional PAC at 115 bpm [place] interval 294 QRS is 91 Q-T intervals 3:30 QTC is 400. Patient's EKG shows no ST segment elevation or depression. Was pt. sent in by a medical professional or institution ([facility], [facility], urgent care, hospital, or penitentiary...) When possible be specific @ -No Did you speak to anyone other than the patient for history (EMS, parent, family, police, friend...)? What history was obtained from this source @ -No Did you review nursing and triage notes (agree or disagree)? Why? @ -I reviewed and agree with nursing and triage notes Were old charts reviewed (outside hosp., previous admission, EMS record, old EKG, old radiological studies, urgent care reports/EKG's, penitentiary records)? Report findings @ -I reviewed prior charts prior radiological studies prior labs in this patient Differential Diagnosis (chest pain, altered mental status, abdominal pain women, abdominal pain men, vaginal bleeding, weakness, fever, dyspnea, syncope, headach e, dizziness, GI bleed, back pain, seizure, CVA, palpatations, mental health, musculoskeletal)? @ -Differential Dyspnea: Coronary syndrome, arrhythmia, tamponade, asthma, COPD, pulmonary embolism, pneumonia, pneumothorax, pulmonary effusion, anaphylaxis, diabetic ketoacidosis, flailed chest, pulmonary contusion, diaphragmatic rupture, anemia, neuromuscular, this is not meant to be an all-inclusive list. EKG interpreted by me (3pts min.). @ -As above X-rays interpreted by me (1pt min.). @ -X-ray shows pulmonary edema CT interpreted by me (1pt min.). @ -None done U/S interpreted by me (1pt. min.). @ -None done What testing was considered but not performed or refused? (CT, X-rays, U/S, labs)? Why? @ -None What meds were considered but not given or refused? Why? @ -None Did you discuss the management of the patient with other professionals (professionals i.e. , PA, [facility], lab, RT, psych nurse, social services aide, cooking chef, teacher, business liaison officer, case management rn)? Give summary @ -I spoke with Dr. Stanford he agreed to admit the patient admitted the patient wrote admitting orders Was smoking cessation discussed for >3mins.? @ -No Was critical care preformed (if so, how long)? @ -35 minutes Were there social determinants of health that impacted care today? How? (Homelessness, low income, unemployed, alcoholism, drug addiction, transportation, low edu. Level, literacy, decrease access to med. care, prison, rehab)? @ -No Was there de-escalation of care discussed even if they declined (Discuss DNR or withdrawal of care, Hospice)? DNR status @ -No What co-morbidities impacted this encounter? (DM, HTN, Smoking, COPD, CAD, Cancer, CVA, ARF, Chemo, Hep., AIDS, mental health diagnosis, sleep apnea, morbid obesity)? @ -None Was patient admitted / discharged? Hospital course, mention meds given and ro [place], prescriptions, significant lab abnormalities, going to OR and other pertinent info. @ -Patient's chest x-ray and BNP indicated pulmonary edema. Patient was given Lasix per patient also had hypertension patient was given hydralazine cranial pressure down. I spoke with Dr. Che and he agreed to admit the patient admitted the patient wrote admitting orders Undiagnosed new problem with uncertain prognosis? @ -No Drug Therapy requiring intensive monitoring for toxicity (Heparin, Nitro, Insulin, Cardizem)? @ -No Were any procedures done? @ -No Diagnosis/symptom? @ -Pulmonary edema Acute, or Chronic, or Acute on Chronic? @ -Acute Uncomplicated (without systemic symptoms) or Complicated (systemic symptoms)? @ -Complicated Side effects of treatment? @ -No Exacerbation, Progression, or Severe Exacerbation? @ -No Poses a threat to life or bodily function? How? (Chest pain, [place], [place], pneumonia, PE, COPD, DKA, ARF, appy, cholecystitis, CVA, Diverticulitis, Homicidal, Suicidal, threat to staff... and all critical care pts) @ -Yes this could lead to severe hypoxia and and/or dysfunction Diagnosis/symptom? @ -Hypertensive urgency Acute, or Chronic, or Acute on Chronic? @ -Acute Uncomplicated (without systemic symptoms) or Complicated (systemic symptoms)? @ -Complicated Side effects of treatment? @ -none Exacerbation, Progression, or Severe Exacerbation] @ -no Poses a threat to life or bodily function? @ -Assist with severe hypertension possible stroke and and/or dysfunction - Lab Data Result diagrams: 05/09/23 19:58 Lab Results 05/09/23 05/09/23 05/09/23 Range/Units 19:58 19:58 19:58 PT 10.8 (9.0-12.0) sec INR 1.0 (<1.2) APTT 23.8 (22.0-30.0) sec Sodium 143 (137-145) mmol/L Potassium 3.9 (3.5-5.1) mmol/L Chloride 105 (98-107) mmol/L Carbon Dioxide 31 H (22-30) mmol/L Anion Gap 7 mmol/L BUN 53 H (7-17) mg/dL Creatinine 2.24 H (0.52-1.04) mg/dL Est GFR (CKD-EPI)AfAm 29 (>60 ml/min/1.73 sqM) Est GFR (CKD-EPI)NonAf 25 (>60 ml/min/1.73 sqM) Glucose 93 (74-99) mg/dL Plasma Lactic Acid Antony 0.6 L (0.7-2.0) mmol/L Calcium 8.9 (8.4-10.2) mg/dL Magnesium 2.5 H (1.6-2.3) mg/dL Total Bilirubin 0.6 (0.2-1.3) mg/dL AST 21 (14-36) U/L ALT 16 (4-34) U/L Alkaline Phosphatase 94 (38-126) U/L NT-Pro-B Natriuret Pep 5730 pg/mL Total Protein 8.0 (6.3-8.2) g/dL Albumin 3.6 (3.5-5.0) g/dL Critical Care Time Critical Care Time: Yes Total Critical Care Time: 35 Disposition Clinical Impression: Acute pulmonary edema, Hypertensive urgency Disposition: ADMITTED IP TO THIS HOSP Referrals: Kevin Stanford MD [Primary Care Provider] - 1-2 days Time of Disposition: 20:45
[2023-05-09] MEDS ORDERED: hydrALAZINE HCL 20 MG/ML 1 ML VIAL IVP STA (20:13)
[2023-05-09 20:20] LABS: ALT 16 U/L (4-34); AST 21 U/L (14-36); African American GFR (CKD) 29 (>60 ml/min/1.73 sqM); Albumin 3.6 g/dL (3.5-5.0); Alkaline Phosphatase 94 U/L (38-126); Anion Gap 7 mmol/L; Blood Urea Nitrogen 53 mg/dL (7-17); Calcium 8.9 mg/dL (8.4-10.2); Carbon Dioxide 31 mmol/L (22-30); Chloride 105 mmol/L (98-107); Glucose 93 mg/dL (74-99); Magnesium 2.5 mg/dL (1.6-2.3); Non-African American GFR(CKD) 25 (>60 ml/min/1.73 sqM); Potassium 3.9 mmol/L (3.5-5.1); Sodium 143 mmol/L (137-145); Total Bilirubin 0.6 mg/dL (0.2-1.3)
[2023-05-09 20:28] LABS: NT-Pro-B-Type Natriuretic Pept 5730 pg/mL
[2023-05-09 20:31] LABS: Partial Thromboplastin Time 23.8 sec (22.0-30.0); Prothrombin Time 10.8 sec (9.0-12.0)
[2023-05-09 20:44] LABS: Anisocytosis Slight; Basophils % (A) 0 %; Eosinophils # (A) 0.1 k/uL (0-0.7); Eosinophils % (A) 1 %; HCT 35.9 % (34.0-46.0); HGB 9.9 gm/dL (11.4-16.0); Hypochromasia Marked; Lymphocytes # (A) 0.6 k/uL (1.0-4.8); Lymphocytes % (A) 9 %; MCH 22.8 pg (25.0-35.0); MCHC 27.5 g/dL (31.0-37.0); MCV 83.2 fL (80.0-100.0); Mean Platelet Volume 9.2; Microcytosis Slight; Monocytes # (A) 0.3 k/uL (0-1.0); Monocytes % (A) 5 %; Neutrophils # (A) 5.5 k/uL (1.3-7.7); Neutrophils % (A) 84 %; Platelet Count 134 k/uL (150-450); RBC 4.31 m/uL (3.80-5.40); RDW 18.5 % (11.5-15.5); WBC 6.6 k/uL (3.8-10.6)
--- NOTE | 2023-05-09 20:48 | XR ---
EXAMINATION: XR chest 2V: 05/09/2023 8:32 PM CLINICAL INDICATION: difficulty breathing TECHNIQUE: Departmental protocol COMPARISON: 03/09/2023 FINDINGS: EKG leads noted. Body habitus and overlying breasts again limits visualization. The pulmonary edema pattern seen on 06/2023 appear similar to the present time. In this radiographic setting, infection cannot be exclude d clinically. Would suggest using a low threshold for CT evaluation. IMPRESSION: Abnormalities as seen on 03/09/2023.
[2023-05-10] MEDS: FUROSEMIDE 10 MG/ML 4 ML VIAL IV SCH ×2 (03:49→15:00)
[2023-05-10] MEDS ORDERED: acetaZOLAMIDE 250 MG TAB PO SCH (10:15)
[2023-05-10] MEDS ORDERED: NIFEdipine XL 90 MG TAB.ER.24 PO SCH (10:15)
[2023-05-10] MEDS ORDERED: NON FORMULARY DRUG (Carvedilol [Coreg] 25 MG Tablet) PO SCH (10:15)
[2023-05-10] MEDS ORDERED: NON FORMULARY DRUG (Clonidine Hcl [Catapres] 0.3 MG Tablet) PO SCH (10:15)
[2023-05-10] MEDS ORDERED: METOPROLOL SUCCINATE (ER) 100 MG TAB.ER.24H PO SCH (18:30)
[2023-05-10] MEDS: FUROSEMIDE 10 MG/ML 10 ML VIAL IV SCH (20:31)
[2023-05-10] MEDS: hydrALAZINE HCL 50 MG TAB PO SCH (20:31)
[2023-05-10] MEDS: AMIODARONE 200 MG TAB PO SCH (20:31)
[2023-05-10] MEDS: APIXABAN 5 MG TAB PO SCH (20:31)
[2023-05-10] MEDS: metOLazone 5 MG TAB PO SCH (21:54)
--- NOTE | 2023-05-10 22:38 | PN ---
PROGRESS NOTE DATE OF SERVICE: 05/10/2023 CHIEF COMPLAINT: Shortness of breath. HISTORY OF PRESENT ILLNESS: This lady is having trouble breathing. She is struggling. She is now on atrial fibrillation with a rate of around 110 and at times it goes up to as high as 180. She denies chest pain. Troponins were elevated. PHYSICAL EXAMINATION: LUNGS: Breath sounds are very poor with rales and wheezing throughout. CARDIAC: She does have tachycardia at a rate of 110. IMPRESSION: 1. Acute congestive heart failure. 2. New onset atrial fibrillation. 3. Elevated troponin. PLAN: 1. Increase diuretic management. 2. Address hypertension. 3. Add anticoagulation. 4. Consult Cardiology. MMODL / IJN: [id number] /
--- NOTE | 2023-05-10 23:07 | PN ---
PROGRESS NOTE CHIEF COMPLAINT: Congestive heart failure. HISTORY OF PRESENT ILLNESS: This lady is stable. She is still short of breath. She is being diuresed. PHYSICAL EXAMINATION: LUNGS: Breath sounds are poor. CARDIAC: Difficult due to her obesity. ABDOMEN: Soft. IMPRESSION: 1. Acute congestive heart failure. 2. Chronic congestive heart failure. 3. Morbid obesity. 4. Pickwickian syndrome. PLAN: Continue with diuresis. MMODL / IJN: [id number] /
[2023-05-11] MEDS: FUROSEMIDE 10 MG/ML 10 ML VIAL IV SCH ×4 (00:10→23:48)
[2023-05-11] MEDS: ACETAMINOPHEN TAB 325 MG TAB PO PRN (04:12)
[2023-05-11] MEDS ORDERED: FUROSEMIDE 80 MG TAB PO SCH (09:00)
[2023-05-11] MEDS ORDERED: metOLazone 2.5 MG TAB PO SCH (09:00)
[2023-05-11] MEDS: metOLazone 5 MG TAB PO SCH (09:15)
[2023-05-11] MEDS: METOPROLOL SUCCINATE (ER) 50 MG TAB.ER.24H PO SCH (09:15)
[2023-05-11] MEDS: AMIODARONE 200 MG TAB PO SCH ×2 (09:15→20:33)
[2023-05-11] MEDS: hydrALAZINE HCL 50 MG TAB PO SCH ×3 (09:15→20:33)
[2023-05-11] MEDS: MAGNESIUM OXIDE 400 MG TAB PO SCH (09:15)
[2023-05-11] MEDS: FOLIC ACID 1 MG TAB PO SCH (09:16)
[2023-05-11] MEDS: PANTOPRAZOLE 40 MG TABLET PO SCH (09:16)
[2023-05-11] MEDS: APIXABAN 5 MG TAB PO SCH ×2 (09:16→20:33)
[2023-05-11] MEDS: ASPIRIN 81 MG PO SCH (09:16)
[2023-05-11 11:48] LABS: Anisocytosis Slight; Basophils % (A) 0 %; Eosinophils # (A) 0.2 k/uL (0-0.7); Eosinophils % (A) 2 %; HCT 38.4 % (34.0-46.0); HGB 10.4 gm/dL (11.4-16.0); Hypochromasia Marked; Lymphocytes # (A) 0.7 k/uL (1.0-4.8); Lymphocytes % (A) 9 %; MCH 22.7 pg (25.0-35.0); MCHC 27.2 g/dL (31.0-37.0); MCV 83.4 fL (80.0-100.0); Mean Platelet Volume 9.6; Monocytes # (A) 0.4 k/uL (0-1.0); Monocytes % (A) 6 %; Neutrophils # (A) 6.1 k/uL (1.3-7.7); Neutrophils % (A) 81 %; Platelet Count 157 k/uL (150-450); RDW 18.6 % (11.5-15.5); WBC 7.5 k/uL (3.8-10.6)
[2023-05-11 12:04] LABS: ALT 15 U/L (4-34); AST 27 U/L (14-36); African American GFR (CKD) 27 (>60 ml/min/1.73 sqM); Albumin 3.4 g/dL (3.5-5.0); Alkaline Phosphatase 79 U/L (38-126); Anion Gap 11 mmol/L; Blood Urea Nitrogen 59 mg/dL (7-17); Calcium 9.1 mg/dL (8.4-10.2); Carbon Dioxide 26 mmol/L (22-30); Chloride 105 mmol/L (98-107); Glucose 101 mg/dL (74-99); Non-African American GFR(CKD) 23 (>60 ml/min/1.73 sqM); Potassium 4.9 mmol/L (3.5-5.1); Sodium 142 mmol/L (137-145); Total Bilirubin 0.6 mg/dL (0.2-1.3); Total Protein 7.7 g/dL (6.3-8.2)
--- NOTE | 2023-05-11 12:16 | P.CRDCN ---
History of Present Illness Consult date: 05/11/23 Consult reason: congestive heart failure History of present illness: The patient is a 39-year-old female with multiple comorbid conditions, who fo llows in the office with Dr. Isbell. She presented to the hospital with worsening shortness of breath. DIAGNOSTICS: EKG shows sinus tachycardia Chest x-ray shows pulmonary edema, similar to 03/09/2023 chest x-ray Lab data: WBC 7.5, hemoglobin 10.4, hematocrit 38.4, platelet 157, sodium 142, potassium 4.9, BUN 59, creatinine 2.36, AST 27, ALT 15, troponin 0.03, 0.04, 0.05 REVIEW OF SYSTEMS: No fever or chills. No cough or expectoration. No diaphoresis. Patient denies headache, dizziness, blurred vision, double vision. Patient denies any stomach discomfort. No nausea, vomiting. No hematochezia. No hematemesis. Denies any black stools or blood in his stools. Denies dysuria or hematuria. Positive for muscle weakness or numbness. Positive for shortness of breath. PHYSICAL EXAMINATION: This is a 48-year-old obese female in mild apparent distress at the time of my examination. HEENT: Head is atraumatic, normocephalic. Pupils are equal, round. Mucous membranes of the mouth are moist. Neck is supple. There is no jugular venous distention. No carotid bruit is heard. CHEST EXAMINATION: Lungs are diminished to auscultation. No chest wall tenderness is noted on palpation or with deep breathing. HEART EXAMINATION: Heart regular rate and rhythm. S1, S2 heard. No murmurs, gallops or rub. ABDOMEN: Soft, nontender. Bowel sounds are heard. No organomegaly noted. EXTREMITIES: 2+ peripheral pulses with no evidence of peripheral edema and no calf tenderness noted. NEUROLOGIC EXAMINATION: Patient is awake, alert and oriented x3. FINAL ASSESSMENT AND PLAN: Elevated troponins, flat trend, not indicative of ACS Acute on chronic diastolic heart failure Hypertension Chronic kidney disease Obstructive sleep apnea Noncompliant with CPAP Morbid obesity PLAN: Increase metoprolol 250 mg daily Continue antihypertensive regimen and IV Lasix Repeat echocardiogram and Doppler study with Lumason Further recommendations to be based on clinical course I am dictating on behalf of Dr Crow Isbell's history/physical and assessment/plan. Past Medical History Past Medical History: Coronary Artery Disease (CAD), Chest Pain / Angina, Heart Failure, Deep Vein Thrombosis (DVT), Hypertension, Osteoarthritis (OA), Renal Disease, Sleep Apnea/CPAP/BIPAP, Supraventricular Tachycardia (SVT) Additional Past Medical History / Comment(s): Pt recently admitted to [facility] on 07/03/22-07/15/22 with acute pulmonary edema. Other hx: Chronic CHF, home oxygen at 3L/NC prn, NIR/no device, previous ventilator dependent respiratory failure, sinus pauses, CKD stage IV, anemia, lymphedema, arthritis bilateral knees, hiatal hernia, diverticular disease, UTIs, constipation, urine and bowel incontinence. History of Any Multi-Drug Resistant Organisms: VRE Date of last positivie culture/infection: 05/03/20 MDRO Source:: VRE URINE Past Surgical History: Section, Hernia Repair Additional Past Surgical History / Comment(s): adominal hernia repair with mesh, cysts removed from stomach, EGD, colonoscopy Past Anesthesia/Blood Transfusion Reactions: No Reported Reaction Additional Past Anesthesia/Blood Transfusion Reaction / Comment(s): Pt has received blood in the past without reaction. Past Psychological History: Anxiety Additional Psychological History / Comment(s): Pt states she lives "pretty much" alone at home. She is mostly bedbound, when someone comes over, they assist her to her wheelchair via george lift. Pt states she was to start with [facility] home care. Family provides meals. She keeps her medications near her and manages them on her own. She is incontinent of urine/stool and wears depends. Smoking Status: Never smoker Past Alcohol Use History: None Reported Past Drug Use History: None Reported - Past Family History Father Family Medical History: Congestive Heart Failure (CHF) Additional Family Medical History / Comment(s): Father from CHF. Mother Family Medical History: Cancer, Hypertension, Sleep Apnea/CPAP/BIPAP Additional Family Medical History / Comment(s): Mother has had cancer removed from ear/head. Medications and Allergies Home Medications Medication Instructions Recorded Confirmed Type Omeprazole 20 mg PO DAILY 11/05/17 05/09/23 History Acetaminophen Tab [Tylenol] 650 mg PO Q6H PRN 12/19/22 05/09/23 History Aspirin 81 mg PO DAILY 12/19/22 05/09/23 History Magnesium Oxide [Mag-Ox] 400 mg PO DAILY 12/19/22 05/09/23 History Folic Acid 1 mg PO DAILY #30 tab 12/28/22 05/09/23 Rx Baclofen 10 mg PO DAILY 03/06/23 05/09/23 History NIFEdipine XL [Procardia XL] 90 mg PO DIRECTED 03/06/23 05/09/23 History cloNIDine HCL [Catapres] 0.3 mg PO DIRECTED 03/06/23 05/09/23 History Furosemide [Lasix] 80 mg PO DAILY 05/09/23 05/09/23 History Ibuprofen [Motrin] 800 mg PO DAILY PRN 05/09/23 05/09/23 History acetaZOLAMIDE [Diamox] 250 mg PO DIRECTED 05/09/23 05/09/23 History carvediloL [Coreg] 50 mg PO DIRECTED 05/09/23 05/09/23 History metOLazone [Zaroxolyn] 2.5 mg PO DAILY 05/09/23 05/09/23 History Allergies Allergy/AdvReac Type Severity Reaction Status Date / Time No Known Allergies Allergy Verified 05/09/23 21:30 Physical Exam Vitals: Vital Signs Temp Pulse Resp BP Pulse Ox 05/11/23 08:00 75 16 142/80 96 05/11/23 03:48 97.6 F 89 18 137/83 94 L 05/10/23 23:32 99 F 94 14 128/87 97 05/10/23 20:00 98.2 F 106 H 18 157/92 96 05/10/23 15:37 96.8 F L 103 H 20 167/93 92 L 05/10/23 14:00 102 H 20 Intake and Output 05/10/23 05/11/23 05/11/23 22:59 06:59 14:59 Intake Total 240 Output Total 1150 700 Balance -910 -700 Intake: Oral 240 Output: Urine 1150 700 Other: Voiding Method External Catheter External Catheter External Catheter # Voids 1 # Bowel Movements 1 Weight 194.5 kg Results 05/11/23 11:00 05/11/23 11:00 Cardiac Enzymes 05/11/23 Range/Units 11:00 AST 27 (14-36) U/L CBC 05/11/23 Range/Units 11:00 WBC 7.5 (3.8-10.6) k/uL RBC 4.60 (3.80-5.40) m/uL Hgb 10.4 L (11.4-16.0) gm/dL Hct 38.4 (34.0-46.0) % Plt Count 157 (150-450) k/uL Comprehensive Metabolic Panel 05/11/23 Range/Units 11:00 Sodium 142 (137-145) mmol/L Potassium 4.9 (3.5-5.1) mmol/L Chloride 105 (98-107) mmol/L Carbon Dioxide 26 (22-30) mmol/L BUN 59 H (7-17) mg/dL Creatinine 2.36 H (0.52-1.04) mg/dL Glucose 101 H (74-99) mg/dL Calcium 9.1 (8.4-10.2) mg/dL AST 27 (14-36) U/L ALT 15 (4-34) U/L Alkaline Phosphatase 79 (38-126) U/L Total Protein 7.7 (6.3-8.2) g/dL Albumin 3.4 L (3.5-5.0) g/dL Current Medications Generic Name Dose Route Start Last Admin Trade Name Freq PRN Reason Stop Dose Admin Acetaminophen 650 mg 05/10/23 10:07 05/11/23 04:12 Acetaminophen Tab 325 Mg Tab PO 650 mg Q6H PRN Administration Fever and/ or Pain Acetazolamide 250 mg 05/10/23 10:15 Acetazolamide 250 Mg Tab PO DIRECTED [facility] Amiodarone HCl 200 mg 05/10/23 21:00 05/11/23 09:15 Amiodarone 200 Mg Tab PO 200 mg BID FARRAH Administration Apixaban 5 mg 05/10/23 21:00 05/11/23 09:16 Apixaban 5 Mg Tab PO 5 mg BID FARRAH Administration Protocol Aspirin 81 mg 05/11/23 09:00 05/11/23 09:16 Aspirin 81 Mg PO 81 mg DAILY FARRAH Administration Folic Acid 1 mg 05/11/23 09:00 05/11/23 09:16 Folic Acid 1 Mg Tab PO 1 mg DAILY FARRAH Administration Furosemide 80 mg 05/10/23 18:45 05/11/23 09:15 Furosemide 10 Mg/Ml 10 Ml Vial IV 80 mg Q8HR FARRAH Administration Hydralazine HCl 50 mg 05/10/23 19:00 05/11/23 09:15 Hydralazine Hcl 50 Mg Tab PO 50 mg TID FARRAH Administration Lorazepam 2 mg 05/10/23 18:48 Lorazepam 1 Mg Tab PO Q8HR PRN Agitation Magnesium Oxide 400 mg 05/11/23 09:00 05/11/23 09:15 Magnesium Oxide 400 Mg Tab PO 400 mg DAILY FARRAH Administration Metolazone 10 mg 05/10/23 18:45 05/11/23 09:15 Metolazone 5 Mg Tab PO 10 mg DAILY FARRAH Administration Metoprolol Succinate 150 mg 05/11/23 09:00 05/11/23 09:15 Metoprolol Succinate (Er) 50 Mg Tab.Er.24h PO 150 mg DAILY FARRAH Administration Nifedipine 90 mg 05/10/23 10:15 Nifedipine Xl 90 Mg Tab.Er.24 PO DIRECTED FARRAH Non-Formulary Medication 0.3 mg 05/10/23 10:15 Clonidine Hcl [Catapres] PO DIRECTED FARRAH Pantoprazole Sodium 40 mg 05/11/23 09:00 05/11/23 09:16 Pantoprazole 40 Mg Tablet PO 40 mg DAILY FARRAH Administration Intake and Output 05/10/23 05/11/23 05/11/23 22:59 06:59 14:59 Intake Total 240 Output Total 1150 700 Balance -910 -700 Intake: Oral 240 Output: Urine 1150 700 Other: Voiding Method External Catheter External Catheter External Catheter # Voids 1 # Bowel Movements 1 Weight 194.5 kg 05/11/23 11:00 05/11/23 11:00
--- NOTE | 2023-05-11 13:40 | P.PN ---
Subjective Progress Note Date: 05/11/23 Patient is a 48-year-old lady admitted for shortness of breath, found to be in a CHF and A. fib with RVR 05/11. Dr. Dickerson covering for Dr. jones. Patient seen and examined. States shortness of breath is improved. Still has swelling of lower extremities REVIEW OF SYSTEMS: CONSTITUTIONAL: No fever, no malaise,. CARDIOVASCULAR: No chest pain, no palpitations, no syncope. PULMONARY: As mentioned above GASTROINTESTINAL: No diarrhea, no nausea, no vomiting, no abdominal pain. NEUROLOGICAL: No headaches, no weakness, PHYSICAL EXAMINATION: GENERAL: The patient is alert and oriented x3, not in any acute distress. Well developed, well nourished. HEENT: Pupils are round and equally reacting to light. EOMI. No scleral icterus. No conjunctival pallor. Normocephalic, atraumatic. No pharyngeal erythema. No thyromegaly. CARDIOVASCULAR: S1 and S2 present. No murmurs, rubs, or gallops. PULMONARY: decreased breath sounds at bases bilaterally, bilateral crackles audible ABDOMEN: Soft, nontender, nondistended, normoactive bowel sounds. No palpable organomegaly. MUSCULOSKELETAL: No joint swelling or deformity. EXTREMITIES: No cyanosis, 2+ pitting edema lower extremities bilaterally NEUROLOGICAL: Gross neurological examination did not reveal any focal deficits. SKIN: No rashes. Assessment and plan Acute CHF hypertension A. fib with RVR Chronic kidney disease stage IV Monitor vital signs Monitor CBC Monitor CMP Continue telemetry monitoring Strict I's and O's, daily weights and to continue IV Lasix, Zaroxolyn Continue amiodarone, Eliquis, Toprol Cardiology consulted Labs and medication were reviewed.. Continue same treatment. Continue with symptomatic treatment. Resume home medication. Monitor labs and vitals. DVT and GI prophylaxis. Further recommendations as per clinical course of the patient Dictation was produced using [employer] dictation software. please excuse any grammatical, word or spelling errors. Objective - Vital Signs Vital signs: Vital Signs Temp 97.6 F 05/11/23 03:48 Pulse 75 05/11/23 08:00 Resp 16 05/11/23 08:00 BP 142/80 05/11/23 08:00 Pulse Ox 96 05/11/23 08:00 FiO2 Intake & Output 05/10/23 05/11/23 05/11/23 18:59 06:59 18:59 Intake Total 900 Output Total 1200 1250 Balance -300 -1250 Weight 190.5 kg 194.5 kg Intake: Oral 900 Output: Urine 1200 1250 Other: Voiding Method External Catheter External Catheter # Voids 1 # Bowel Movements 1 1 - Labs CBC & Chem 7: 05/11/23 11:00 05/11/23 11:00
[2023-05-11] MEDS: LORazepam 1 MG TAB PO PRN (21:36)
[2023-05-12] MEDS: METOPROLOL SUCCINATE (ER) 50 MG TAB.ER.24H PO SCH (09:01)
[2023-05-12] MEDS: FUROSEMIDE 10 MG/ML 10 ML VIAL IV SCH ×3 (09:01→23:36)
[2023-05-12] MEDS: APIXABAN 5 MG TAB PO SCH ×2 (09:01→20:54)
[2023-05-12] MEDS: AMIODARONE 200 MG TAB PO SCH ×2 (09:01→20:54)
[2023-05-12] MEDS: MAGNESIUM OXIDE 400 MG TAB PO SCH (09:01)
[2023-05-12] MEDS: PANTOPRAZOLE 40 MG TABLET PO SCH (09:02)
[2023-05-12] MEDS: FOLIC ACID 1 MG TAB PO SCH (09:02)
[2023-05-12] MEDS: metOLazone 5 MG TAB PO SCH (09:02)
[2023-05-12] MEDS: ASPIRIN 81 MG PO SCH (09:02)
[2023-05-12] MEDS: hydrALAZINE HCL 50 MG TAB PO SCH ×3 (09:02→20:54)
--- NOTE | 2023-05-12 10:59 | CA ---
Transthoracic Echo Report Name: Ankita Sorto Age: 48 Gender: F : 1975 Exam Date: 05/11/2023 11:13 Exam Location: [place] [facility] Ht (in): 67 Wt (lb): 428 Ordering Physician: Estelita Donato Attending/Referring Phys: [id number], [place] Mapping Specialist Ingrid Bailon RDCS Procedure CPT: Indications: chf Cardiac Hx: Technical Quality: Very technically difficult study Contrast 1: Lumason Total Dose (mL): 4 Contrast 2: Total Dose (mL): MEASUREMENTS (Male / Female) Normal Values 2D ECHO LV Diastolic Diameter PLAX 3.4 cm 4.2 - 5.9 / 3.9 - 5.3 cm LV Systolic Diameter PLAX 1.3 cm IVS Diastolic Thickness 2.3 cm 0.6 - 1.0 / 0.6 - 0.9 cm LVPW Diastolic Thickness 2.4 cm 0.6 - 1.0 / 0.6 - 0.9 cm LV Relative Wall Thickness 1.4 FINDINGS Left Ventricle Severely increased left ventricular wall thickness. Preserved systolic function. left ventricular ejection fraction is estimated at 50-55 %. Right Ventricle Right ventricle not well visualized. Right Atrium Right atrium not well visualized. Left Atrium Left atrium not well visualized. Mitral Valve Mitral valve not well visualized. Aortic Valve Aortic valve not well visualized. Tricuspid Valve Tricuspid valve not well visualized. Pulmonic Valve Pulmonic valve not well visualized. Pericardium No pericardial effusion. Aorta Aortic root and proximal ascending aorta not well visualized. CONCLUSIONS Technically difficult study with suboptimal acoustic windows RV appears enlarged LV function is normal Likely, RV pressure overload Previewed by: Dr. Crow Isbell MD (Electronically Signed) Final Date: 12 May 2023 10:58
--- NOTE | 2023-05-12 12:00 | P.PN ---
Subjective Progress Note Date: 05/12/23 The patient is a 48-year-old female who presented to the hospital with worsening shortness of breath. Cardiology was consulted for congestive heart failure. Recent limited echocardiogram shows preserved LV function. Patient was interviewed and examined resting comfortably in bed. She states she still has shortness of breath and overall generalized fatigue. No chest pain. GENERAL: Well-appearing, well-nourished and in no acute distress. NECK: Supple without JVD or thyromegaly. LUNGS: Breath sounds severely diminished to auscultation bilaterally. Respiration equal and unlabored. No wheezes, rales or rhonchi. HEART: Regular rate and rhythm without murmurs, rubs or gallops. S1 and S2 heard. EXTREMITIES: Normal range of motion, no edema. No clubbing or cyanosis. Peripheral pulses intact and strong. TELEMETRY: Sinus rhythm to sinus tachycardia with brief runs of PAT IMPRESSION: Elevated troponins, flat trend, not indicative of ACS Acute on chronic diastolic heart failure, preserved ejection fraction Hypertension Chronic kidney disease Obstructive sleep apnea Noncompliant with CPAP Morbid obesity PLAN: Continue current cardiac medication regimen Discontinue amiodarone at discharge as there is been no sustained arrhythmia No further recommendations from the cardiac standpoint I am dictating on behalf of Dr Crow Isbell's history/physical and assessment/plan. Objective - Vital Signs Vital signs: Vital Signs Temp 98.0 F 05/12/23 03:40 Pulse 82 05/12/23 08:00 Resp 16 05/12/23 08:00 BP 110/60 05/12/23 08:00 Pulse Ox 95 05/12/23 08:00 FiO2 Intake & Output 05/11/23 05/12/23 05/12/23 18:59 06:59 18:59 Intake Total 240 240 Output Total 450 1300 Balance -210 -1060 Weight 200.5 kg Intake: Oral 240 240 Output: Urine 450 1300 Other: Voiding Method External Catheter External Catheter External Catheter # Voids 1 - Labs CBC & Chem 7: 05/11/23 11:00 05/11/23 11:00 Labs: Abnormal Lab Results - Last 24 Hours (Table) 05/11/23 Range/Units 11:00 BUN 59 H (7-17) mg/dL Creatinine 2.36 H (0.52-1.04) mg/dL Glucose 101 H (74-99) mg/dL Albumin 3.4 L (3.5-5.0) g/dL
[2023-05-12] MEDS: LORazepam 1 MG TAB PO PRN (12:26)
--- NOTE | 2023-05-12 22:49 | PN ---
PROGRESS NOTE CHIEF COMPLAINT: Acute on chronic congestive heart failure and atrial fibrillation. HISTORY OF PRESENT ILLNESS: This lady is doing a little bit better. Breathing is slightly less labored. REVIEW OF SYMPTOMS: Other than the shortness of breath, she has no complaints. PHYSICAL EXAM: CHEST: Clear. CARDIAC: Unchanged and difficult to hear due to her obesity. ABDOMEN: Soft, nontender, and protuberant. EXTREMITIES: Normal. IMPRESSION: 1. Acute congestive heart failure. 2. Chronic congestive heart failure. 3. Cardiomyopathy. 4. Pickwickian syndrome. 5. Atrial fibrillation. PLAN: 1. Continue efforts to control her rhythm. She is demonstrating occasional normal sinus conducted beats. 2. Continue diuresis. 3. She is requesting to go to an extended care facility. MMODL / IJN: [id number] /
--- NOTE | 2023-05-13 07:35 | HP ---
HISTORY AND PHYSICAL CHIEF COMPLAINT: Shortness of breath. HISTORY OF PRESENT ILLNESS: This is an another admission for this 48-year-old morbidly obese female. She is brought in again for heart failure. She lives alone at home and refuses any other type of living situation. She cannot ambulate and she is totally bedridden. She presented to the emergency room in heart failure without chest pain. REVIEW OF SYSTEMS: Other than shortness of breath, she has had no other symptoms. Past medical history, family history and personal and social histories are otherwise unremarkable and noncontributory. MEDICATIONS: The medications that she is currently taking can be found in her MAR. SOCIAL HISTORY: She does not smoke or drink. PHYSICAL EXAMINATION: VITAL SIGNS: Blood pressure is 104/68 with a pulse of 94 and regular. Respirations were 36. GENERAL: She appeared to be morbidly obese and short of breath. HEAD, EARS, EYES, NOSE AND MOUTH: Normal. NECK: Neck veins could not be assessed. CHEST: Demonstrates poor breath sounds. CARDIAC: Demonstrates what sounds like a tachycardia. ABDOMEN: Massively protuberant and there is no tenderness. EXTREMITIES: Normal except for her obesity. She is admitted to the hospital with diagnoses, 1. Acute congestive heart failure. 2. Chronic congestive heart failure. 3. Cardiomyopathy. 4. Pickwickian syndrome. 5. Bed ridden individual. PLAN: 1. Bed rest. 2. Nasal O2. 3. Diuresis and then return home. MORENO / CEZARN: [id number] /
[2023-05-13] MEDS: metOLazone 5 MG TAB PO SCH (07:52)
[2023-05-13] MEDS: MAGNESIUM OXIDE 400 MG TAB PO SCH (07:52)
[2023-05-13] MEDS: hydrALAZINE HCL 50 MG TAB PO SCH ×3 (07:52→20:50)
[2023-05-13] MEDS: ASPIRIN 81 MG PO SCH (07:52)
[2023-05-13] MEDS: PANTOPRAZOLE 40 MG TABLET PO SCH (07:52)
[2023-05-13] MEDS: APIXABAN 5 MG TAB PO SCH ×2 (07:53→20:50)
[2023-05-13] MEDS: FUROSEMIDE 10 MG/ML 10 ML VIAL IV SCH (07:53)
[2023-05-13] MEDS: FOLIC ACID 1 MG TAB PO SCH (07:53)
[2023-05-13] MEDS: METOPROLOL SUCCINATE (ER) 50 MG TAB.ER.24H PO SCH (07:53)
[2023-05-13] MEDS: AMIODARONE 200 MG TAB PO SCH ×2 (07:53→20:50)
[2023-05-13 11:29] LABS: African American GFR (CKD) 17 (>60 ml/min/1.73 sqM); Anion Gap 7 mmol/L; Blood Urea Nitrogen 78 mg/dL (7-17); Calcium 8.8 mg/dL (8.4-10.2); Carbon Dioxide 32 mmol/L (22-30); Chloride 101 mmol/L (98-107); Glucose 106 mg/dL (74-99); Non-African American GFR(CKD) 15 (>60 ml/min/1.73 sqM); Potassium 4.4 mmol/L (3.5-5.1); Sodium 140 mmol/L (137-145)
--- NOTE | 2023-05-13 12:18 | P.PN ---
Subjective Progress Note Date: 05/13/23 The patient is a 48-year-old female who presented to the hospital with worsening shortness of breath. Cardiology was consulted for congestive heart failure. Recent limited echocardiogram shows preserved LV function. TELEMETRY: Sinus rhythm to sinus tachycardia with brief runs of PAT Patient was interviewed and examined resting comfortably in bed. She states she still has shortness of breath and overall generalized fatigue. No chest pain. 05/13 Patient states that her breathing status is improved from yesterday. She continues to have some lower extremity edema. She has been maintained on IV Las ix 80 mg every 8 hours. She is in a negative fluid balance of 1270. Weight do not appear to be accurate. Repeat blood work reveals worsening renal function with BUN 78 and creatinine 3.46. Echocardiogram reveals difficult study, RV appears enlarged, LV function is normal. Likely RV pressure overload. GENERAL: Well-appearing, well-nourished and in no acute distress. NECK: Supple without JVD or thyromegaly. LUNGS: Breath sounds severely diminished to auscultation bilaterally. Respiration equal and unlabored. No wheezes, rales or rhonchi. HEART: Regular rate and rhythm without murmurs, rubs or gallops. S1 and S2 heard. EXTREMITIES: +edema. No clubbing or cyanosis. Peripheral pulses intact and strong. IMPRESSION: Elevated troponins, flat trend, not indicative of ACS, secondary to chronic myocardial ischemia Acute on chronic diastolic heart failure, preserved ejection fraction Hypertension Chronic kidney disease Obstructive sleep apnea Noncompliant with CPAP Morbid obesity PLAN: Continue current cardiac medication regimen Discontinue amiodarone at discharge as there is been no sustained arrhythmia Decrease frequency of Lasix to 80 mg IV daily repeat BMP in the morning Further recommendations as patient progresses. Nurse practitioner note has been reviewed, I agree with the documented findings and plan of care. Patient was seen and examined. Objective - Vital Signs Vital signs: Vital Signs Temp 98.1 F 05/13/23 04:00 Pulse 71 05/13/23 04:00 Resp 19 05/13/23 04:00 BP 132/72 05/13/23 04:00 Pulse Ox 95 05/13/23 08:10 FiO2 Intake & Output 05/12/23 05/13/23 05/13/23 18:59 06:59 18:59 Intake Total 462 222 Output Total 450 252 Balance 12 -30 Weight 194.5 kg Intake: Oral 462 222 Output: Urine 450 250 Stool 2 Other: Voiding Method External Catheter External Catheter # Bowel Movements 1 - Labs CBC & Chem 7: 05/11/23 11:00 05/13/23 10:25
--- NOTE | 2023-05-13 16:02 | CDI ---
Documentation Clarification Form Date: 05/13/2023 03:53:24 PM From: Kim Ledezma RN, CCDS Email: [email or web address] Admit Date: 05/09/2023 08:47:00 PM Patient Name: Ankita Sorto Visit Number: [id number] Discharge Date: ATTENTION: The Clinical Documentation Specialists (CDI) and [facility] Coding Staff appreciate your assistance in clarifying documentation. Please respond to the clarification below the line at the bottom and electronically sign. The CDI & [facility] Coding staff will review the response and follow-up if needed. Please note: Queries are made part of the Legal Health Record. If you have any questions, please contact the author of this message via ITS. Dr. Kevin Stanford Your patient has CHF, Pickwickian syndrome and is on home oxygen. Based on this information and the findings below, is there an additional diagnosis that is clinically appropriate for this patient? History/Risk Factors: Morbid obesity, Pickwickian syndrome, bedridden, HTN, CAD, sleep apnea and home oxygen at 3L[facility]. Admitted with CHF exacerbation. Home oxygen: [facility] Clinical Indicators: SOB, leg swelling 05/09 CXR: The pulmonary edema pattern seen on 03/09/2023 appear similar to the present time. 05/09-current vital signs: RR 16-26, BP 196/124 05/09-current pulse oximetry: 92-99% Lung/Breathing assessment: severely diminished with rales and wheezing Treatment: IV Lasix 40mg Q8H 05/09; IV Lasix 80mg 05/10-current O2: 4-5L[facility] Is there an additional diagnosis that is clinically appropriate for this patient? [ ] Acute on Chronic Respiratory Failure [ ] Chronic Respiratory Failure [ ] Other Diagnosis, please specify [ ] Unable to determine Response 05/14 Pulmonary consult note: Acute on chronic hypoxemic and hypercapnic respiratory failure related to an exacerbation of diastolic congestive heart failure. MTDD
--- NOTE | 2023-05-13 21:23 | PN ---
PROGRESS NOTE DATE OF SERVICE: 05/13/2023 CHIEF COMPLAINT: Acute on chronic congestive heart failure. HISTORY OF PRESENT ILLNESS: This lady is doing slightly better. She is still very short of breath. She is requesting to go to an extended care facility after her discharge. PHYSICAL EXAMINATION: LUNGS: Breath sounds are extremely poor. CARDIAC: Demonstrates S3 and S4. ABDOMEN: Usually protuberant and distended. IMPRESSION: 1. Acute on chronic congestive heart failure. 2. Morbid obesity. 3. Pickwickian syndrome. 4. Renal failure. PLAN: 1. Continue to manage her congestive heart failure. 2. Make arrangements for long-term care. MMODL / IJN: [id number] /
[2023-05-13 22:51] LABS: ABG Base Excess 6.5 mmol/L; ABG HCO3 33 mmol/L (21-25); ABG Oxygen Saturation 92.6 % (94-97); ABG PCO2 63 mmHg (35-45); ABG PH 7.32 (7.35-7.45); ABG PO2 72 mmHg (83-108); ABG TCO2 34 mmol/L (19-24); Allen Test Performed? Yes
--- NOTE | 2023-05-14 06:11 | P.CNPUL ---
History of Present Illness Consult date: 05/14/23 Requesting physician: Kevin Stanford Reason for consult: dyspnea Chief complaint: Shortness of breath and increased lower extremity swelling History of present illness: I am seeing this patient in new consultation today 05/14/2023 on the cardiac stepdown unit for acute diastolic CHF exacerbation and mild hypoxemic and hypercapnic respiratory failure. Patient is a 48-year-old -[place] female with past medical history significant for CHF, hypertension, morbid obesity, obstructive sleep apnea without CPAP because it is broken, chronic oxygen dependence with 3 L/m nasal cannula mostly at night, previous ventilator dependent respiratory failure, hypertension, chronic kidney disease stage IV, left upper extremity lymphedema, anemia, and frequent urinary tract infections. Patient has frequent hospital admissions for congestive heart failure, and was last seen back in February,. Patient presented in the emergency room back on 05/09/2023 with complaints of increasing shortness of breath and lower extremity swelling for approximately 24 hours prior to arrival. She denies any fever, chills, myalgias, cough, hemoptysis. She denies any chest pain, heart palpitations. She was severely hypertensive on arrival to emergency room, which her blood pressure has now improved, and is now normotensive. Chest x-ray on admission appeared consistent with pulmonary edema. Echocardiogram showed severely increased left ventricular wall thickness with a preserved ejection fraction of 50-55%, and was otherwise a limited exam. Patient was aggressively diuresed with IV Lasix for several days. We were not consulted until late last night when the patient started to experience shortness of breath accompanied with acute confusion and was reportedly talking to herself. ABGs were consistent with mild hypercapnic respiratory failure showing a pCO2 of 63 and pH of 7.3 to, pO2 was 72 on 4 L/m nasal cannula. On my evaluation, the patient is sitting up in bed, with a somewhat delayed response to questioning, otherwise in no acute distress. She is fully oriented. She will be placed on BiPAP with settings 14/5 and FiO2 of 40% to be titrated accordingly. CBC on arrival was fairly unremarkable. There was some mild anemia of chronic disease. Most recent BMP shows a component of acute on chronic kidney disease. Sodium was 140, potassium 4.4, chloride 101, serum bicarbonate 32, BUN 78, creatinine 3.46, glucose 106. Troponins were elevated and are modestly trending up at 0.036, 0.04, 0.055. Patient denies any chest pain, she does state that she has some mild chest tightness. EKG on admission showed sinus tachycardia without any obvious acute ischemic changes. Patient will be monitored on the cardiac stepdown unit. Review of Systems REVIEW OF SYSTEMS: CONSTITUTIONAL: Denies any recent significant weight loss or weight gain but does not weigh herself at home. EYES: Denies change in vision. EARS, NOSE, MOUTH, THROAT: Denies headaches, denies sore throat. CARDIOVASCULAR: Denies chest pain, palpitations or syncopal episodes. Admits increased lower extremity swelling RESPIRATORY: See HPI GASTROINTESTINAL: Denies change in appetite, abdominal pain, nausea and vomiting, or diarrhea GENITOURINARY: Denies hematuria, denies infections. MUSKULOSKELETAL: Denies pain, denies swelling. INTEGUMENTARY: Denies rash, denies eczema. NEUROLOGICAL: Denies recent memory loss, no recent seizure activity. PSYCHIATRIC: Denies anxiety, denies depression. HEMATOLOGIC/LYMPHATIC: Denies anemia, denies enlarged lymph node Past Medical History Past Medical History: Coronary Artery Disease (CAD), Chest Pain / Angina, Heart Failure, Deep Vein Thrombosis (DVT), Hypertension, Osteoarthritis (OA), Renal Disease, Sleep Apnea/CPAP/BIPAP, Supraventricular Tachycardia (SVT) Additional Past Medical History / Comment(s): Pt recently admitted to [facility] on -07/15/22 with acute pulmonary edema. Other hx: Chronic CHF, home oxygen at 3L/NC prn, NIR/no device, previous ventilator dependent respiratory failure, sinus pauses, CKD stage IV, anemia, lymphedema, arthritis bilateral knees, hiatal hernia, diverticular disease, UTIs, constipation, urine and bowel incontinence. History of Any Multi-Drug Resistant Organisms: VRE Date of last positivie culture/infection: 05/03/20 MDRO Source:: VRE URINE Past Surgical History: Section, Hernia Repair Additional Past Surgical History / Comment(s): adominal hernia repair with mesh, cysts removed from stomach, EGD, colonoscopy Past Anesthesia/Blood Transfusion Reactions: No Reported Reaction Additional Past Anesthesia/Blood Transfusion Reaction / Comment(s): Pt has received blood in the past without reaction. Past Psychological History: Anxiety Additional Psychological History / Comment(s): Pt states she lives "pretty much" alone at home. She is mostly bedbound, when someone comes over, they assist her to her wheelchair via george lift. Pt states she was to start with [facility] home care. Family provides meals. She keeps her medications near her and manages them on her own. She is incontinent of urine/stool and wears depends. Smoking Status: Never smoker Past Alcohol Use History: None Reported Past Drug Use History: None Reported - Past Family History Father Family Medical History: Congestive Heart Failure (CHF) Additional Family Medical History / Comment(s): Father from CHF. Mother Family Medical History: Cancer, Hypertension, Sleep Apnea/CPAP/BIPAP Additional Family Medical History / Comment(s): Mother has had cancer removed from ear/head. Medications and Allergies Home Medications Medication Instructions Recorded Confirmed Type Omeprazole 20 mg PO DAILY 11/05/17 05/09/23 History Acetaminophen Tab [Tylenol] 650 mg PO Q6H PRN 12/19/22 05/09/23 History Aspirin 81 mg PO DAILY 12/19/22 05/09/23 History Magnesium Oxide [Mag-Ox] 400 mg PO DAILY 12/19/22 05/09/23 History Folic Acid 1 mg PO DAILY #30 tab 12/28/22 05/09/23 Rx Baclofen 10 mg PO DAILY 03/06/23 05/09/23 History NIFEdipine XL [Procardia XL] 90 mg PO DIRECTED 03/06/23 05/09/23 History cloNIDine HCL [Catapres] 0.3 mg PO DIRECTED 03/06/23 05/09/23 History Furosemide [Lasix] 80 mg PO DAILY 05/09/23 05/09/23 History Ibuprofen [Motrin] 800 mg PO DAILY PRN 05/09/23 05/09/23 History acetaZOLAMIDE [Diamox] 250 mg PO DIRECTED 05/09/23 05/09/23 History carvediloL [Coreg] 50 mg PO DIRECTED 05/09/23 05/09/23 History metOLazone [Zaroxolyn] 2.5 mg PO DAILY 05/09/23 05/09/23 History Allergies Allergy/AdvReac Type Severity Reaction Status Date / Time No Known Allergies Allergy Verified 05/09/23 21:30 Physical Exam Vitals: Vital Signs Temp Pulse Resp BP Pulse Ox FiO2 05/14/23 05:18 40 05/14/23 04:00 98.2 F 70 20 131/87 96 05/14/23 01:10 40 05/14/23 00:56 40 05/14/23 00:00 97.8 F 101 H 21 135/80 95 05/13/23 20:00 98.2 F 80 20 141/107 98 05/13/23 15:36 98.2 F 70 20 119/74 94 L 05/13/23 11:25 97.7 F 68 18 113/68 96 05/13/23 08:10 95 05/13/23 08:00 97.9 F 76 20 131/87 97 Intake and Output 05/13/23 05/13/23 05/14/23 14:59 22:59 06:59 Intake Total 240 Output Total 300 700 Balance -60 -700 Intake: Oral 240 Output: Urine 300 700 Other: Voiding Method External Catheter External Catheter External Catheter # Voids 2 # Bowel Movements 1 Weight 189 kg GENERAL EXAM: Alert but delayed, morbidly obese 48-year-old -[place] female, fairly comfortable in no apparent distress. HEAD: Normocephalic and atraumatic EYES: Normal reaction of pupils, equal size. NOSE: Clear with pink turbinates. THROAT: No erythema or exudates. NECK: No masses, no JVD. CHEST: No chest wall deformity. LUNGS: Equal air entry with markedly diminished lung sounds throughout area and bibasilar inspiratory crackles. no wheeze, rhonchi or dullness. No conversational dyspnea or accessory muscle use. On BiPAP settings 14/5 and FiO2 of 40% CVS: S1 and S2 normal with no audible murmur, regular rhythm. No extra heart sounds ABDOMEN: Obese abdomen, no hepatosplenomegaly, active bowel sounds, no guarding or rigidity. SPINE: No scoliosis or deformity SKIN: No rashes CENTRAL NERVOUS SYSTEM: No focal deficits, tone is normal in all 4 extremities. EXTREMITIES: There is 3+ bilateral lower extremity pitting edema. Left upper arm lymphedema. No clubbing, or cyanosis. Peripheral pulses are intact. Results - Laboratory Findings CBC and BMP: 05/11/23 11:00 05/13/23 10:25 ABG ABG pH 7.32 (7.35-7.45) L 05/13/23 22:48 ABG pCO2 63 mmHg (35-45) H 05/13/23 22:48 ABG pO2 72 mmHg (83-108) L 05/13/23 22:48 ABG O2 Saturation 92.6 % (94-97) L 05/13/23 22:48 PT/INR, D-dimer PT 10.8 sec (9.0-12.0) 05/09/23 19:58 INR 1.0 (<1.2) 05/09/23 19:58 Abnormal lab findings: Abnormal Labs 05/09/23 05/09/23 05/09/23 19:58 19:58 19:58 Hgb 9.9 L MCH 22.8 L MCHC 27.5 L RDW 18.5 H Plt Count 134 L Lymphocytes # 0.6 L ABG pH ABG pCO2 ABG pO2 ABG HCO3 ABG Total CO2 ABG O2 Saturation Carbon Dioxide 31 H BUN 53 H Creatinine 2.24 H Glucose Plasma Lactic Acid Antony 0.6 L Magnesium 2.5 H Troponin I Albumin 05/09/23 05/09/23 05/10/23 19:58 20:56 03:47 Hgb MCH MCHC RDW Plt Count Lymphocytes # ABG pH ABG pCO2 ABG pO2 ABG HCO3 ABG Total CO2 ABG O2 Saturation Carbon Dioxide BUN Creatinine Glucose Plasma Lactic Acid Antony Magnesium Troponin I 0.036 H* 0.040 H* 0.055 H* Albumin 05/11/23 05/11/23 05/13/23 11:00 11:00 10:25 Hgb 10.4 L MCH 22.7 L MCHC 27.2 L RDW 18.6 H Plt Count Lymphocytes # 0.7 L ABG pH ABG pCO2 ABG pO2 ABG HCO3 ABG Total CO2 ABG O2 Saturation Carbon Dioxide 32 H BUN 59 H 78 H Creatinine 2.36 H 3.46 H Glucose 101 H 106 H Plasma Lactic Acid Antony Magnesium Troponin I Albumin 3.4 L 05/13/23 22:48 Hgb MCH MCHC RDW Plt Count Lymphocytes # ABG pH 7.32 L ABG pCO2 63 H ABG pO2 72 L ABG HCO3 33 H ABG Total CO2 34 H ABG O2 Saturation 92.6 L Carbon Dioxide BUN Creatinine Glucose Plasma Lactic Acid Antony Magnesium Troponin I Albumin - Diagnostic Findings Chest x-ray: image reviewed Assessment and Plan Assessment: Acute on chronic hypoxemic and hypercapnic respiratory failure related to an exacerbation of diastolic congestive heart failure. Chest x-ray on admission appeared consistent with pulmonary edema. Most recent repeat echocardiogram shows a severely increased left ventricular wall thickness, with a preserved ejection fraction of 50-55%, and was otherwise a limited exam. Hypertensive emergency, improved Elevated troponins, likely related to above Acute on chronic kidney injury, creatinine 3.46 Obstructive sleep apnea, noncompliant with CPAP. Utilizes 3 L/m nasal cannula mostly at night. Severe morbid obesity with a BMI of 65 kg/m History of ventilator dependent respiratory failure Chronic kidney disease stage IV Anemia of chronic disease, related to above Left upper extremity lymphedema History of DVT Plan: Patient's medications, labs, chest x-ray reviewed Start patient on BiPAP with settings 14/5 and FiO2 40% Continue with diuresis Antihypertensives have been restarted Cardiology is following Anticoagulated on Eliquis GI prophylaxis with Protonix Patient's overall prognosis is guarded related to above-mentioned comorbidities She is at high risk for readmission. We will continue to follow and make recommendations I have personally seen and examined the patient, performed the documentation and the assessment and plan as written. Number of minutes spent on the visit:20 Time with Patient: Greater than 30
[2023-05-14] MEDS: PANTOPRAZOLE 40 MG TABLET PO SCH (07:46)
[2023-05-14] MEDS: METOPROLOL SUCCINATE (ER) 50 MG TAB.ER.24H PO SCH (07:46)
[2023-05-14] MEDS: APIXABAN 5 MG TAB PO SCH ×2 (07:46→20:27)
[2023-05-14] MEDS: AMIODARONE 200 MG TAB PO SCH ×2 (07:46→20:27)
[2023-05-14] MEDS: ASPIRIN 81 MG PO SCH (07:46)
[2023-05-14] MEDS: FOLIC ACID 1 MG TAB PO SCH (07:46)
[2023-05-14] MEDS: hydrALAZINE HCL 50 MG TAB PO SCH ×3 (07:47→20:27)
[2023-05-14] MEDS: MAGNESIUM OXIDE 400 MG TAB PO SCH (07:47)
[2023-05-14] MEDS: FUROSEMIDE 10 MG/ML 4 ML VIAL IV SCH ×2 (08:54→20:27)
[2023-05-14] MEDS ORDERED: FUROSEMIDE 10 MG/ML 10 ML VIAL IV SCH (09:00)
[2023-05-14] MEDS ORDERED: FUROSEMIDE 40 MG TAB PO SCH (09:00)
[2023-05-14 10:03] LABS: African American GFR (CKD) 17 (>60 ml/min/1.73 sqM); Anion Gap 14 mmol/L; Blood Urea Nitrogen 84 mg/dL (7-17); Calcium 9.2 mg/dL (8.4-10.2); Carbon Dioxide 27 mmol/L (22-30); Chloride 101 mmol/L (98-107); Glucose 98 mg/dL (74-99); Non-African American GFR(CKD) 15 (>60 ml/min/1.73 sqM); Potassium 4.4 mmol/L (3.5-5.1); Sodium 142 mmol/L (137-145)
--- NOTE | 2023-05-14 10:33 | P.PN ---
Subjective Progress Note Date: 05/14/23 The patient is a 48-year-old female who presented to the hospital with worsening shortness of breath. Cardiology was consulted for congestive heart failure. Recent limited echocardiogram shows preserved LV function. TELEMETRY: Sinus rhythm to sinus tachycardia with brief runs of PAT Patient was interviewed and examined resting comfortably in bed. She states she still has shortness of breath and overall generalized fatigue. No chest pain. 05/13 Patient states that her breathing status is improved from yesterday. She continues to have some lower extremity edema. She has been maintained on IV Las ix 80 mg every 8 hours. She is in a negative fluid balance of 1270. Weight do not appear to be accurate. Repeat blood work reveals worsening renal function with BUN 78 and creatinine 3.46. Echocardiogram reveals difficult study, RV appears enlarged, LV function is normal. Likely RV pressure overload. 05/14 Patient is seen today in follow-up. She required BiPAP during the night and was feeling fatigued and groggy. Yesterday, Lasix and Zaroxolyn were discontinued. Consult for pulmonary medicine was added. She continues to have significant fluid and will be started back on IV Lasix. Heart rate is in the 70s, blood pressure 124/85, pulse ox 97% on 4 L nasal cannula. Potassium 4.4, BUN 84 creatinine 3.5. GENERAL: Well-appearing, well-nourished and in no acute distress. NECK: Supple without JVD or thyromegaly. LUNGS: Breath sounds severely diminished to auscultation bilaterally. Re spiration equal and unlabored. No wheezes, rales or rhonchi. HEART: Regular rate and rhythm without murmurs, rubs or gallops. S1 and S2 heard. EXTREMITIES: 3+edema to the bilateral lower extremities. No clubbing or cyanosis. Peripheral pulses intact and strong. IMPRESSION: Elevated troponins, flat trend, not indicative of ACS, secondary to chronic myocardial ischemia Acute on chronic diastolic heart failure, preserved ejection fraction Hypertension Chronic kidney disease Obstructive sleep apnea Noncompliant with CPAP Morbid obesity PLAN: Continue current cardiac medication regimen Discontinue amiodarone at discharge as there is been no sustained arrhythmia Resume patient back on IV Lasix 40 mg twice daily Repeat BMP in the morning Further recommendations as patient progresses. Nurse practitioner note has been reviewed, I agree with the documented findings and plan of care. Patient was seen and examined. Objective - Vital Signs Vital signs: Vital Signs Temp 98.2 F 05/14/23 04:00 Pulse 70 05/14/23 04:00 Resp 20 05/14/23 04:00 BP 131/87 05/14/23 04:00 Pulse Ox 96 05/14/23 04:00 FiO2 40 05/14/23 05:18 Intake & Output 05/13/23 05/14/23 05/14/23 18:59 06:59 18:59 Intake Total 240 Output Total 300 700 Balance -60 -700 Weight 189 kg Intake: Oral 240 Output: Urine 300 700 Other: Voiding Method External Catheter External Catheter # Voids 2 # Bowel Movements 1 - Labs CBC & Chem 7: 05/11/23 11:00 05/14/23 08:26 Labs: Abnormal Lab Results - Last 24 Hours (Table) 05/13/23 05/13/23 Range/Units 10:25 22:48 ABG pH 7.32 L (7.35-7.45) ABG pCO2 63 H (35-45) mmHg ABG pO2 72 L (83-108) mmHg ABG HCO3 33 H (21-25) mmol/L ABG Total CO2 34 H (19-24) mmol/L ABG O2 Saturation 92.6 L (94-97) % Carbon Dioxide 32 H (22-30) mmol/L BUN 78 H (7-17) mg/dL Creatinine 3.46 H (0.52-1.04) mg/dL Glucose 106 H (74-99) mg/dL
--- NOTE | 2023-05-15 02:07 | PN ---
PROGRESS NOTE DATE OF SERVICE: 05/14/2023 CHIEF COMPLAINT: Acute on chronic congestive heart failure. HISTORY OF PRESENT ILLNESS: This lady is doing a little bit better now that she is on BiPAP. PHYSICAL EXAMINATION: LUNGS: Breath sounds are difficult to hear, but they are fairly clear. CARDIAC: Normal. ABDOMEN: Protuberant. IMPRESSION: 1. Acute on chronic congestive heart failure. 2. Morbid obesity. 3. Pickwickian syndrome. PLAN: Continue with management of her heart failure and BiPAP while looking for discharge plan. MMODL / IJN: [id number] /
[2023-05-15 09:29] LABS: African American GFR (CKD) 17 (>60 ml/min/1.73 sqM); Anion Gap 10 mmol/L; Blood Urea Nitrogen 92 mg/dL (7-17); Carbon Dioxide 32 mmol/L (22-30); Chloride 101 mmol/L (98-107); Glucose 77 mg/dL (74-99); Non-African American GFR(CKD) 15 (>60 ml/min/1.73 sqM); Sodium 143 mmol/L (137-145)
[2023-05-15] MEDS: ASPIRIN 81 MG PO SCH (10:18)
[2023-05-15] MEDS: METOPROLOL SUCCINATE (ER) 50 MG TAB.ER.24H PO SCH (10:18)
[2023-05-15] MEDS: FOLIC ACID 1 MG TAB PO SCH (10:19)
[2023-05-15] MEDS: AMIODARONE 200 MG TAB PO SCH ×2 (10:19→21:39)
[2023-05-15] MEDS: PANTOPRAZOLE 40 MG TABLET PO SCH (10:19)
[2023-05-15] MEDS: MAGNESIUM OXIDE 400 MG TAB PO SCH (10:19)
[2023-05-15] MEDS: FUROSEMIDE 10 MG/ML 4 ML VIAL IV SCH ×2 (10:19→21:40)
[2023-05-15] MEDS: hydrALAZINE HCL 50 MG TAB PO SCH ×3 (10:19→21:40)
[2023-05-15] MEDS: APIXABAN 5 MG TAB PO SCH ×2 (10:19→21:40)
--- NOTE | 2023-05-15 10:32 | P.PN ---
Subjective Progress Note Date: 05/15/23 The patient is a 48-year-old female who presented to the hospital with worsening shortness of breath. Cardiology was consulted for congestive heart failure. Recent limited echocardiogram shows preserved LV function. TELEMETRY: Sinus rhythm to sinus tachycardia with brief runs of PAT Patient was interviewed and examined resting comfortably in bed. She states she still has shortness of breath and overall generalized fatigue. No chest pain. 05/13 Patient states that her breathing status is improved from yesterday. She continues to have some lower extremity edema. She has been maintained on IV Las ix 80 mg every 8 hours. She is in a negative fluid balance of 1270. Weight do not appear to be accurate. Repeat blood work reveals worsening renal function with BUN 78 and creatinine 3.46. Echocardiogram reveals difficult study, RV appears enlarged, LV function is normal. Likely RV pressure overload. 05/14 Patient is seen today in follow-up. She required BiPAP during the night and was feeling fatigued and groggy. Yesterday, Lasix and Zaroxolyn were discontinued. Consult for pulmonary medicine was added. She continues to have significant fluid and will be started back on IV Lasix. Heart rate is in the 70s, blood pressure 124/85, pulse ox 97% on 4 L nasal cannula. Potassium 4.4, BUN 84 creatinine 3.5. 05/15 Patient is seen today in follow-up. She is currently on BiPAP and seems more lethargic and groggy today. She continues to have lower extremity edema. Patient has a negative fluid balance of 760 ML's. Weights are not accurate. Blood pressure 128/82, heart rate 62, afebrile, pulse ox 95% on BiPAP 40% FiO2. Repeat blood work reveals minimal improvement in reveals BUN 92, creatinine 3.42. Potassium 4. GENERAL: Well-appearing, well-nourished and in no acute distress. NECK: Supple without JVD or thyromegaly. LUNGS: Breath sounds severely diminished to auscultation bilaterally. Respiration equal and unlabored. No wheezes, rales or rhonchi. HEART: Regular rate and rhythm without murmurs, rubs or gallops. S1 and S2 heard. EXTREMITIES: 3+edema to the bilateral lower extremities. No clubbing or cyanosis. Peripheral pulses intact and strong. IMPRESSION: Elevated troponins, flat trend, not indicative of ACS, secondary to chronic myocardial ischemia Acute on chronic diastolic heart failure, preserved ejection fraction Hypertension Chronic kidney disease Obstructive sleep apnea Noncompliant with CPAP Morbid obesity PLAN: Continue current cardiac medication regimen Discontinue amiodarone at discharge as there is been no sustained arrhythmia Continue patient on IV Lasix 40 mg twice daily Repeat BMP in the morning Further recommendations as patient progresses. Nurse practitioner note has been reviewed, I agree with the documented findings and plan of care. Patient was seen and examined. Objective - Vital Signs Vital signs: Vital Signs Temp 98 F 05/15/23 08:00 Pulse 62 05/15/23 08:00 Resp 20 05/15/23 08:00 BP 128/82 05/15/23 08:00 Pulse Ox 95 05/15/23 08:00 FiO2 40 05/15/23 09:06 Intake & Output 05/14/23 05/15/23 05/15/23 18:59 06:59 18:59 Intake Total 1318 Output Total 1500 825 Balance -182 -825 Weight 189 kg 238 kg Intake: Oral 1318 Output: Urine 1500 825 Other: Voiding Method External Catheter External Catheter External Catheter - Labs CBC & Chem 7: 05/11/23 11:00 05/15/23 08:04 Labs: Abnormal Lab Results - Last 24 Hours (Table) 05/15/23 Range/Units 08:04 Carbon Dioxide 32 H (22-30) mmol/L BUN 92 H (7-17) mg/dL Creatinine 3.42 H (0.52-1.04) mg/dL
--- NOTE | 2023-05-15 11:29 | P.PN ---
Subjective Progress Note Date: 05/15/23 Principal diagnosis: Respiratory failure. I am seeing this patient in new consultation today 05/14/2023 on the cardiac stepdown unit for acute diastolic CHF exacerbation and mild hypoxemic and hypercapnic respiratory failure. Patient is a 48-year-old -[place] female with past medical history significant for CHF, hypertension, morbid obesity, obstructive sleep apnea without CPAP because it is broken, chronic oxygen dependence with 3 L/m nasal cannula mostly at night, previous ventilator dependent respiratory failure, hypertension, chronic kidney disease stage IV, l eft upper extremity lymphedema, anemia, and frequent urinary tract infections. Patient has frequent hospital admissions for congestive heart failure, and was last seen back in February,. Patient presented in the emergency room back on 05/09/2023 with complaints of increasing shortness of breath and lower extremity swelling for approximately 24 hours prior to arrival. She denies any fever, chills, myalgias, cough, hemoptysis. She denies any chest pain, heart palpitations. She was severely hypertensive on arrival to emergency room, which her blood pressure has now improved, and is now normotensive. Chest x-ray on admission appeared consistent with pulmonary edema. Echocardiogram showed severely increased left ventricular wall thickness with a preserved ejection fraction of 50-55%, and was otherwise a limited exam. Patient was aggressively diuresed with IV Lasix for several days. We were not consulted until late last night when the patient started to experience shortness of breath accompanied with acute confusion and was reportedly talking to herself. ABGs were consistent with mild hypercapnic respiratory failure showing a pCO2 of 63 and pH of 7.3 to, pO2 was 72 on 4 L/m nasal cannula. On my evaluation, the patient is sitting up in bed, with a somewhat delayed response to questioning, otherwise in no acute distress. She is fully oriented. She will be placed on BiPAP with settings 14/5 and FiO2 of 40% to be titrated accordingly. CBC on arrival was fairly unremarkable. There was some mild anemia of chronic disease. Most recent BMP shows a component of acute on chronic kidney disease. Sodium was 140, potassium 4.4, chloride 101, serum bicarbonate 32, BUN 78, creatinine 3.46, glucose 106. Troponins were elevated and are modestly trending up at 0.036, 0.04, 0.055. Patient denies any chest pain, she does state that she has some mild chest tightness. EKG on admission showed sinus tachycardia without any obvious acute ischemic changes. Patient will be monitored on the cardiac stepdown unit. Progress note dated 05/15/2023. 48-year-old female well-known to our service. She has a history of diastolic CHF, and, we were consulted for abnormal blood gases, which showed evidence of hypercapnic respiratory failure. The patient also has a history of hypert ension, morbid obesity, sleep apnea, and chronic hypoxemic respiratory failure. She is seen today in room 363. She remains on BiPAP with settings of 14/5 and 40%. She's not receiving any IV fluids. I've asked the nurses to have respiratory take her off BiPAP, and place her on nasal O2, and shoot for saturations are between 88% and 92%. Sodium 143, potassium 4, chlorides 101, CO2 32, BUN 92, and creatinine 3.42. Objective - Vital Signs Vital signs: Vital Signs Temp 98 F 05/15/23 08:00 Pulse 62 05/15/23 08:00 Resp 20 05/15/23 08:00 BP 128/82 05/15/23 08:00 Pulse Ox 95 05/15/23 08:00 FiO2 40 05/15/23 09:06 Intake & Output 05/14/23 05/15/23 05/15/23 18:59 06:59 18:59 Intake Total 1318 Output Total 4561 702 0105 Balance -182 -825 -1100 Weight 189 kg 238 kg Intake: Oral 1318 Output: Urine 6543 878 1150 Other: Voiding Method External Catheter External Catheter External Catheter - Exam No acute distress, somnolent, with BiPAP mask in place. HEENT examination is grossly unremarkable. Neck supple. Full range of motion. No adenopathy thyromegaly or neck vein distention. Cardiovascular examination reveals regular rhythm rate. S1-S2 normal. No S3 or S4. No discernible murmur noted. Heart rate 62 bpm. Heart sounds are distant. Lungs reveal scattered rhonchi and crackles. Breath sounds are equal bilaterally. No wheezes. Saturations are in the mid 90s on BiPAP. Abdomen soft bowel sounds are heard. No masses or tenderness. Extremities are intact. No cyanosis or clubbing. Trace edema noted. Skin is without rash or lesion. Neurologic examination is difficult to evaluate. - Labs CBC & Chem 7: 05/11/23 11:00 05/15/23 08:04 Labs: Abnormal Lab Results - Last 24 Hours (Table) 05/15/23 Range/Units 08:04 Carbon Dioxide 32 H (22-30) mmol/L BUN 92 H (7-17) mg/dL Creatinine 3.42 H (0.52-1.04) mg/dL Assessment and Plan Assessment: Acute on chronic hypoxemic and hypercapnic respiratory failure related to an e xacerbation of diastolic congestive heart failure. Chest x-ray on admission appeared consistent with pulmonary edema. Most recent repeat echocardiogram shows a severely increased left ventricular wall thickness, with a preserved ejection fraction of 50-55%, and was otherwise a limited exam. Hypertensive emergency, improved. Elevated troponins, likely related to above. Acute on chronic kidney injury, creatinine 3.46. Obstructive sleep apnea, noncompliant with CPAP. Utilizes 3 L/m nasal cannula mostly at night. Severe morbid obesity with a BMI of 65 kg/m. History of ventilator dependent respiratory failure. Chronic kidney disease, stage IV. Anemia of chronic disease. Left upper extremity lymphedema. History of DVT. Plan: Plan dated 05/15/2023. The patient's labs, x-rays, and medications are all reviewed. The patient was placed on BiPAP for hypoxemic and hypercapnic respiratory failure. I believe the patient can come off the BiPAP, and be placed on nasal O2, with saturations in the 88% to 92% range. Currently, the patient is not receiving any IV fluids. We will continue to follow make recommendations along the way. The patient's prognosis is guarded. She is being followed by cardiology. Time with Patient: Less than 30
[2023-05-15] MEDS: ACETAMINOPHEN TAB 325 MG TAB PO PRN ×2 (16:03→21:57)
--- NOTE | 2023-05-15 20:28 | PN ---
PROGRESS NOTE CHIEF COMPLAINT: Chronic congestive heart failure. HISTORY OF PRESENT ILLNESS: This lady is doing slightly better, but she is still very dyspneic. She is not having any chest pain. PHYSICAL EXAMINATION: CHEST: Breath sounds are difficult to hear, but they are clear. CARDIAC: Demonstrates sinus tachycardia with the rate around 80. ABDOMEN: Protuberant and soft. IMPRESSION: 1. Chronic congestive heart failure. 2. Cardiomyopathy. 3. Morbid obesity. PLAN: Continue efforts to improve congestive heart failure and respiratory function. We are also looking at senior care placement. MMODL / IJN: [id number] /
[2023-05-16] MEDS: APIXABAN 5 MG TAB PO SCH ×2 (09:27→21:58)
[2023-05-16] MEDS: PANTOPRAZOLE 40 MG TABLET PO SCH (09:27)
[2023-05-16] MEDS: ASPIRIN 81 MG PO SCH (09:27)
[2023-05-16] MEDS: FUROSEMIDE 10 MG/ML 4 ML VIAL IV SCH ×2 (09:28→21:58)
[2023-05-16] MEDS: FOLIC ACID 1 MG TAB PO SCH (09:28)
[2023-05-16] MEDS: METOPROLOL SUCCINATE (ER) 50 MG TAB.ER.24H PO SCH (09:28)
[2023-05-16] MEDS: hydrALAZINE HCL 50 MG TAB PO SCH ×3 (09:28→21:58)
[2023-05-16] MEDS: AMIODARONE 200 MG TAB PO SCH ×2 (09:28→21:58)
[2023-05-16] MEDS: MAGNESIUM OXIDE 400 MG TAB PO SCH (09:28)
--- NOTE | 2023-05-16 11:36 | P.PN ---
Subjective Progress Note Date: 05/16/23 The patient is a 48-year-old female who presented to the hospital with worsening shortness of breath. Cardiology was consulted for congestive heart failure. Recent limited echocardiogram shows preserved LV function. TELEMETRY: Sinus rhythm to sinus tachycardia with brief runs of PAT Patient was interviewed and examined resting comfortably in bed. She states she still has shortness of breath and overall generalized fatigue. No chest pain. 05/13 Patient states that her breathing status is improved from yesterday. She continues to have some lower extremity edema. She has been maintained on IV Las ix 80 mg every 8 hours. She is in a negative fluid balance of 1270. Weight do not appear to be accurate. Repeat blood work reveals worsening renal function with BUN 78 and creatinine 3.46. Echocardiogram reveals difficult study, RV appears enlarged, LV function is normal. Likely RV pressure overload. 05/14 Patient is seen today in follow-up. She required BiPAP during the night and was feeling fatigued and groggy. Yesterday, Lasix and Zaroxolyn were discontinued. Consult for pulmonary medicine was added. She continues to have significant fluid and will be started back on IV Lasix. Heart rate is in the 70s, blood pressure 124/85, pulse ox 97% on 4 L nasal cannula. Potassium 4.4, BUN 84 creatinine 3.5. 05/15 Patient is seen today in follow-up. She is currently on BiPAP and seems more lethargic and groggy today. She continues to have lower extremity edema. Patient has a negative fluid balance of 760 ML's. Weights are not accurate. Blood pressure 128/82, heart rate 62, afebrile, pulse ox 95% on BiPAP 40% FiO2. Repeat blood work reveals minimal improvement in reveals BUN 92, creatinine 3.42. Potassium 4. 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 Blood pressure 128/76, heart rate in the 60s, afebrile. Telemetry is sinus rhythm. Repeat blood work has been ordered for today. Patient has been continued on IV Lasix 40 mg twice daily and has an diuresing well. Weights are inaccurate due to body habitus and positioning. GENERAL: Well-appearing, well-nourished and in no acute distress. NECK: Supple without JVD or thyromegaly. LUNGS: Breath sounds severely diminished to auscultation bilaterally. Respiration equal and unlabored. No wheezes, rales or rhonchi. HEART: Regular rate and rhythm without murmurs, rubs or gallops. S1 and S2 heard. EXTREMITIES: 2+edema to the bilateral lower extremities. No clubbing or cyanosis. Peripheral pulses intact and strong. IMPRESSION: Elevated troponins, flat trend, not indicative of ACS, secondary to chronic myocardial ischemia Acute on chronic diastolic heart failure, preserved ejection fraction Hypertension Chronic kidney disease Obstructive sleep apnea Noncompliant with CPAP Morbid obesity PLAN: Continue current cardiac medication regimen Discontinue amiodarone at discharge as there is been no sustained arrhythmia Continue patient on IV Lasix 40 mg twice daily Repeat BMP in the morning Further recommendations as patient progresses. Nurse practitioner note has been reviewed, I agree with the documented findings and plan of care. Patient was seen and examined. Objective - Vital Signs Vital signs: Vital Signs Temp 98 F 05/16/23 08:00 Pulse 60 05/16/23 08:00 Resp 16 05/16/23 08:00 BP 128/76 05/16/23 08:00 Pulse Ox 98 05/16/23 08:00 FiO2 40 05/16/23 07:52 Intake & Output 05/15/23 05/16/23 05/16/23 18:59 06:59 18:59 Intake Total 118 0 Output Total 1800 600 Balance -1682 -600 Weight 217.1 kg Intake: Oral 118 0 Output: Urine 1800 600 Other: Voiding Method External Catheter External Catheter External Catheter # Voids 1 # Bowel Movements 1 - Labs CBC & Chem 7: 05/11/23 11:00 05/15/23 08:04
--- NOTE | 2023-05-16 12:52 | P.PN ---
Subjective Progress Note Date: 05/16/23 Principal diagnosis: Respiratory failure. I am seeing this patient in new consultation today 05/14/2023 on the cardiac stepdown unit for acute diastolic CHF exacerbation and mild hypoxemic and hypercapnic respiratory failure. Patient is a 48-year-old -[place] female with past medical history significant for CHF, hypertension, morbid obesity, obstructive sleep apnea without CPAP because it is broken, chronic oxygen dependence with 3 L/m nasal cannula mostly at night, previous ventilator dependent respiratory failure, hypertension, chronic kidney disease stage IV, l eft upper extremity lymphedema, anemia, and frequent urinary tract infections. Patient has frequent hospital admissions for congestive heart failure, and was last seen back in February,. Patient presented in the emergency room back on 05/09/2023 with complaints of increasing shortness of breath and lower extremity swelling for approximately 24 hours prior to arrival. She denies any fever, chills, myalgias, cough, hemoptysis. She denies any chest pain, heart palpitations. She was severely hypertensive on arrival to emergency room, which her blood pressure has now improved, and is now normotensive. Chest x-ray on admission appeared consistent with pulmonary edema. Echocardiogram showed severely increased left ventricular wall thickness with a preserved ejection fraction of 50-55%, and was otherwise a limited exam. Patient was aggressively diuresed with IV Lasix for several days. We were not consulted until late last night when the patient started to experience shortness of breath accompanied with acute confusion and was reportedly talking to herself. ABGs were consistent with mild hypercapnic respiratory failure showing a pCO2 of 63 and pH of 7.3 to, pO2 was 72 on 4 L/m nasal cannula. On my evaluation, the patient is sitting up in bed, with a somewhat delayed response to questioning, otherwise in no acute distress. She is fully oriented. She will be placed on BiPAP with settings 14/5 and FiO2 of 40% to be titrated accordingly. CBC on arrival was fairly unremarkable. There was some mild anemia of chronic disease. Most recent BMP shows a component of acute on chronic kidney disease. Sodium was 140, potassium 4.4, chloride 101, serum bicarbonate 32, BUN 78, creatinine 3.46, glucose 106. Troponins were elevated and are modestly trending up at 0.036, 0.04, 0.055. Patient denies any chest pain, she does state that she has some mild chest tightness. EKG on admission showed sinus tachycardia without any obvious acute ischemic changes. Patient will be monitored on the cardiac stepdown unit. Progress note dated 05/15/2023. 48-year-old female well-known to our service. She has a history of diastolic CHF, and, we were consulted for abnormal blood gases, which showed evidence of hypercapnic respiratory failure. The patient also has a history of hypert ension, morbid obesity, sleep apnea, and chronic hypoxemic respiratory failure. She is seen today in room 363. She remains on BiPAP with settings of 14/5 and 40%. She's not receiving any IV fluids. I've asked the nurses to have respiratory take her off BiPAP, and place her on nasal O2, and shoot for saturations are between 88% and 92%. Sodium 143, potassium 4, chlorides 101, CO2 32, BUN 92, and creatinine 3.42. Progress note dated 05/16/2023. 48-year-old black female, well-known to our service. She seen again today in room 363. The patient uses BiPAP at nighttime, with settings of 14/5, and 40%. During the daytime, she uses nasal O2 at 4 L. Currently, the patient appears to be relatively stable. No new lab data today. Lab data from May 15 has been reviewed. Objective - Vital Signs Vital signs: Vital Signs Temp 97.8 F 05/16/23 12:00 Pulse 78 05/16/23 12:00 Resp 16 05/16/23 12:00 BP 110/71 05/16/23 12:00 Pulse Ox 96 05/16/23 12:00 FiO2 40 05/16/23 07:52 Intake & Output 05/15/23 05/16/23 05/16/23 18:59 06:59 18:59 Intake Total 118 0 Output Total 1800 600 300 Balance -1682 -600 -300 Weight 217.1 kg Intake: Oral 118 0 Output: Urine 1800 600 300 Other: Voiding Method External Catheter External Catheter External Catheter # Voids 1 # Bowel Movements 1 - Exam No acute distress, awake and alert, currently on 4 L by nasal cannula. HEENT examination is grossly unremarkable. Neck supple. Full range of motion. No adenopathy thyromegaly or neck vein distention. Cardiovascular examination reveals regular rhythm rate. S1-S2 normal. No S3 or S4. No discernible murmur noted. Heart rate 78 bpm. Heart sounds are distant. Lungs reveal scattered rhonchi and crackles. Breath sounds are equal bilaterally. No wheezes. Saturations are 96% on 4 L. Abdomen soft bowel sounds are heard. No masses or tenderness. Extremities are intact. No cyanosis or clubbing. Trace edema noted. Skin is without rash or lesion. Neurologic examination is difficult to evaluate. - Labs CBC & Chem 7: 05/11/23 11:00 05/15/23 08:04 Assessment and Plan Assessment: Acute on chronic hypoxemic and hypercapnic respiratory failure related to an exacerbation of diastolic congestive heart failure. Chest x-ray on admission appeared consistent with pulmonary edema. Most recent repeat echocardiogram shows a severely increased left ventricular wall thickness, with a preserved ejection fraction of 50-55%, and was otherwise a limited exam. Hypertensive emergency, improved. Elevated troponins, likely related to above. Acute on chronic kidney injury, creatinine 3.46. Obstructive sleep apnea, noncompliant with CPAP. Utilizes 3 L/m nasal cannula mostly at night. Severe morbid obesity with a BMI of 65 kg/m. History of ventilator dependent respiratory failure. Chronic kidney disease, stage IV. Anemia of chronic disease. Left upper extremity lymphedema. History of DVT. Plan: Plan dated 05/15/2023. The patient's labs, x-rays, and medications are all reviewed. The patient was placed on BiPAP for hypoxemic and hypercapnic respiratory failure. I believe the patient can come off the BiPAP, and be placed on nasal O2, with saturations in the 88% to 92% range. Currently, the patient is not receiving any IV fluids. We will continue to follow make recommendations along the way. The patient's prognosis is guarded. She is being followed by cardiology. Plan dated 05/16/2023. The patient is currently on 4 L nasal cannula. Saturations are perfectly acceptable between 8892%. She can request to go back on BiPAP in the time. During the evening, or nighttime, the patient should wear BiPAP, with settings of 14/5 and 40%. Again, saturations should be acceptable in the 88-92% range. Labs, x-rays, medications are reviewed. The patient's prognosis is guarded. The patient is also being followed by cardiology. We will continue to see the patient and make recommendations along the way. Time with Patient: Less than 30
[2023-05-16 12:59] LABS: African American GFR (CKD) 18 (>60 ml/min/1.73 sqM); Anion Gap 10 mmol/L; Blood Urea Nitrogen 99 mg/dL (7-17); Calcium 9.1 mg/dL (8.4-10.2); Carbon Dioxide 27 mmol/L (22-30); Chloride 107 mmol/L (98-107); Glucose 94 mg/dL (74-99); Non-African American GFR(CKD) 15 (>60 ml/min/1.73 sqM); Sodium 144 mmol/L (137-145)
[2023-05-16 13:06] LABS: Potassium 5.5 mmol/L (3.5-5.1)
--- NOTE | 2023-05-16 22:35 | P.PN ---
Subjective Progress Note Date: 05/16/[address] Stanford. Patient is a 48-year-old female with a past medical history of chronic CHF with diastolic dysfunction, morbid obesity BMI 75, obstructive sleep apnea not using CPAP, chronic hypoxic aspiratory failure on 3 L oxygen via nasal cannula and CKD stage IV, left upper extremity lymphedema and other medical problems presents to ER with complaints of worsening shortness of breath and lower extremity swelling. Patient did have accelerated essential hypertension on admission chest x-ray showed consistent with pulmonary edema. 05/16/2023 Patient is currently resting in the bed. Awake alert and oriented x3. Currently requiring oxygen at 4 L via nasal cannula. Patient did use BiPAP last night. No complaints of chest pain. Breathing status improving as well as leg swelling. Patient is mostly bedridden. Denies any fevers or chills. No cough or sputum production. Patient is being continued Lasix 40 mg every 12. She is also on anticoagulation with Eliquis. Laboratory data showed sodium 144, potassium 5.5 with slight hemolysis, chloride 107, BUN 19 and creatinine 3.36. Current medications reviewed. Objective - Vital Signs Vital signs: Vital Signs Temp 97.8 F 05/16/23 12:00 Pulse 78 05/16/23 12:00 Resp 16 05/16/23 12:00 BP 110/71 05/16/23 12:00 Pulse Ox 96 05/16/23 12:00 FiO2 40 05/16/23 07:52 Intake & Output 05/15/23 05/16/23 05/16/23 18:59 06:59 18:59 Intake Total 118 0 Output Total 1800 600 300 Balance -1682 -600 -300 Weight 217.1 kg Intake: Oral 118 0 Output: Urine 1800 600 300 Other: Voiding Method External Catheter External Catheter External Catheter # Voids 1 # Bowel Movements 1 - Exam PHYSICAL EXAMINATION: Patient is lying in the bed comfortably, no acute distress, awake alert and oriented. Morbidly obese.. HEENT: Normocephalic. Neck is supple. Pupils reactive. Nostrils clear. Oral cavity is moist. Neck reveals no JVD, carotid bruits, or thyromegaly. CHEST EXAMINATION: Trachea is central. Symmetrical expansion. Lung [place] clear to auscultation and percussion. Bibasilar diminished sounds. CARDIAC: Normal S1, S2 with no gallops. No murmurs ABDOMEN: Soft. Bowel sounds present. Nontender. No organomegaly. No abdominal bruits. Extremities: Bilateral lower extremity edema. No clubbing or cyanosis Neurologically awake, alert, oriented x3 with well-coordinated movements. No gross focal deficits noted Skin: No rash or skin lesions. Psychiatric: Coperative. Nonsuicidal, Musculoskeletal: No joint swelling or deformity. Normal range of motion. - Labs CBC & Chem 7: 05/11/23 11:00 05/16/23 11:54 Labs: Abnormal Lab Results - Last 24 Hours (Table) 05/16/23 Range/Units 11:54 Potassium 5.5 H (3.5-5.1) mmol/L BUN 99 H (7-17) mg/dL Creatinine 3.36 H (0.52-1.04) mg/dL Assessment and Plan Assessment: Acute on chronic hypoxemic and hypercapnic respiratory failure secondary to acute on chronic HFpEF Hypertensive emergency on admission improved now. Acute on chronic disease stage IV. Creatinine 3.46. Baseline around 1.8-1.6 Elevated troponin level possible demand ischemia Obstructive sleep apnea not using CPAP/not working. Chronic hypoxemic respiratory failure on 3 L oxygen via nasal cannula Left upper extremity lymphedema chronic History of DVT Nonsustained ventricular tachycardia Morbid obesity with BMI 75.0 Plan: Patient will be Continued on oxygen supplementation and BiPAP as needed. Contin ue to diuresis with Lasix 40 mg IV twice daily. Patient is on Eliquis for DVT and also was started on amiodarone for ventricular tachycardia as it is nonsustained can be discontinued as per cardiology recommendations. Continue with blood pressure medications and titrate as needed. Follow-up repeat CBC and BMP tomorrow. Cardiology and pulmonary is on board. Prognosis is guarded. Time with Patient: Greater than 30
[2023-05-17] MEDS: FUROSEMIDE 10 MG/ML 4 ML VIAL IV SCH ×3 (02:23→20:39)
[2023-05-17 09:12] LABS: African American GFR (CKD) 18 (>60 ml/min/1.73 sqM); Anion Gap 7 mmol/L; Blood Urea Nitrogen 96 mg/dL (7-17); Calcium 8.4 mg/dL (8.4-10.2); Carbon Dioxide 33 mmol/L (22-30); Chloride 99 mmol/L (98-107); Glucose 89 mg/dL (74-99); Non-African American GFR(CKD) 15 (>60 ml/min/1.73 sqM); Sodium 139 mmol/L (137-145)
[2023-05-17 09:46] LABS: Anisocytosis Slight; Basophils % (A) 1 %; Eosinophils # (A) 0.1 k/uL (0-0.7); Eosinophils % (A) 1 %; HCT 35.8 % (34.0-46.0); Hypochromasia Marked; Lymphocytes # (A) 0.8 k/uL (1.0-4.8); Lymphocytes % (A) 14 %; MCH 23.2 pg (25.0-35.0); MCHC 27.9 g/dL (31.0-37.0); MCV 83.5 fL (80.0-100.0); Mean Platelet Volume 10.2; Microcytosis Slight; Monocytes # (A) 0.4 k/uL (0-1.0); Monocytes % (A) 7 %; Neutrophils # (A) 4.1 k/uL (1.3-7.7); Neutrophils % (A) 74 %; Platelet Count 179 k/uL (150-450); RBC 4.29 m/uL (3.80-5.40); RDW 18.7 % (11.5-15.5); WBC 5.6 k/uL (3.8-10.6)
[2023-05-17] MEDS: MAGNESIUM OXIDE 400 MG TAB PO SCH (10:08)
[2023-05-17] MEDS: hydrALAZINE HCL 50 MG TAB PO SCH ×3 (10:08→20:39)
[2023-05-17] MEDS: METOPROLOL SUCCINATE (ER) 50 MG TAB.ER.24H PO SCH (10:09)
[2023-05-17] MEDS: FOLIC ACID 1 MG TAB PO SCH (10:09)
[2023-05-17] MEDS: ASPIRIN 81 MG PO SCH (10:09)
[2023-05-17] MEDS: APIXABAN 5 MG TAB PO SCH ×2 (10:09→20:38)
[2023-05-17] MEDS: AMIODARONE 200 MG TAB PO SCH (10:09)
[2023-05-17] MEDS: PANTOPRAZOLE 40 MG TABLET PO SCH (10:09)
--- NOTE | 2023-05-17 11:38 | P.PN ---
Subjective Progress Note Date: 05/17/23 Principal diagnosis: Respiratory failure. I am seeing this patient in new consultation today 05/14/2023 on the cardiac stepdown unit for acute diastolic CHF exacerbation and mild hypoxemic and hypercapnic respiratory failure. Patient is a 48-year-old -Turkish female with past medical history significant for CHF, hypertension, morbid obesity, obstructive sleep apnea without CPAP because it is broken, chronic oxygen dependence with 3 L/m nasal cannula mostly at night, previous ventilator dependent respiratory failure, hypertension, chronic kidney disease stage IV, l eft upper extremity lymphedema, anemia, and frequent urinary tract infections. Patient has frequent hospital admissions for congestive heart failure, and was last seen back in February,. Patient presented in the emergency room back on 05/09/2023 with complaints of increasing shortness of breath and lower extremity swelling for approximately 24 hours prior to arrival. She denies any fever, chills, myalgias, cough, hemoptysis. She denies any chest pain, heart palpitations. She was severely hypertensive on arrival to emergency room, which her blood pressure has now improved, and is now normotensive. Chest x-ray on admission appeared consistent with pulmonary edema. Echocardiogram showed severely increased left ventricular wall thickness with a preserved ejection fraction of 50-55%, and was otherwise a limited exam. Patient was aggressively diuresed with IV Lasix for several days. We were not consulted until late last night when the patient started to experience shortness of breath accompanied with acute confusion and was reportedly talking to herself. ABGs were consistent with mild hypercapnic respiratory failure showing a pCO2 of 63 and pH of 7.3 to, pO2 was 72 on 4 L/m nasal cannula. On my evaluation, the patient is sitting up in bed, with a somewhat delayed response to questioning, otherwise in no acute distress. She is fully oriented. She will be placed on BiPAP with settings 14/5 and FiO2 of 40% to be titrated accordingly. CBC on arrival was fairly unremarkable. There was some mild anemia of chronic disease. Most recent BMP shows a component of acute on chronic kidney disease. Sodium was 140, potassium 4.4, chloride 101, serum bicarbonate 32, BUN 78, creatinine 3.46, glucose 106. Troponins were elevated and are modestly trending up at 0.036, 0.04, 0.055. Patient denies any chest pain, she does state that she has some mild chest tightness. EKG on admission showed sinus tachycardia without any obvious acute ischemic changes. Patient will be monitored on the cardiac stepdown unit. Progress note dated 05/15/2023. 48-year-old female well-known to our service. She has a history of diastolic CHF, and, we were consulted for abnormal blood gases, which showed evidence of hypercapnic respiratory failure. The patient also has a history of hypert ension, morbid obesity, sleep apnea, and chronic hypoxemic respiratory failure. She is seen today in room 363. She remains on BiPAP with settings of 14/5 and 40%. She's not receiving any IV fluids. I've asked the nurses to have respiratory take her off BiPAP, and place her on nasal O2, and shoot for saturations are between 88% and 92%. Sodium 143, potassium 4, chlorides 101, CO2 32, BUN 92, and creatinine 3.42. Progress note dated 05/16/2023. 48-year-old black female, well-known to our service. She seen again today in room 363. The patient uses BiPAP at nighttime, with settings of 14/5, and 40%. During the daytime, she uses nasal O2 at 4 L. Currently, the patient appears to be relatively stable. No new lab data today. Lab data from May 15 has been reviewed. Progress note dated 05/17/2023. 48-year-old black female, seen today in room 363. She is currently not on any IV fluids. She goes back and forth between oxygen by nasal cannula at 4 L, and BiPAP, with settings of 14/5 and 40%. She apparently didn't use BiPAP overnight, according to the nurse. White count is 5.6, hemoglobin 10, hematocrit 35.8, with a platelet count of 179,000. Sodium 139, potassium 4, chlorides 99, CO2 33, BUN 96, creatinine 3.37. Objective - Vital Signs Vital signs: Vital Signs Temp 97.7 F 05/16/23 20:14 Pulse 63 05/17/23 04:00 Resp 16 05/17/23 04:00 BP 133/82 05/17/23 04:00 Pulse Ox 95 05/17/23 04:00 FiO2 40 05/17/23 11:30 Intake & Output 05/16/23 05/17/23 05/17/23 18:59 06:59 18:59 Intake Total 240 Output Total 1300 450 Balance -1300 -210 Weight 217.95 kg Intake: Oral 240 Output: Urine 1300 450 Other: Voiding Method External Catheter External Catheter # Voids 1 # Bowel Movements 1 - Exam No acute distress, awake and alert, currently on BiPAP. HEENT examination is grossly unremarkable. Neck supple. Full range of motion. No adenopathy thyromegaly or neck vein distention. Cardiovascular examination reveals regular rhythm rate. S1-S2 normal. No S3 or S4. No discernible murmur noted. Heart rate 63 bpm. Heart sounds are distant. Lungs reveal scattered rhonchi and crackles. Breath sounds are equal bilaterally. No wheezes. Saturations are 95% on BiPAP. Abdomen soft bowel sounds are heard. No masses or tenderness. Extremities are intact. No cyanosis or clubbing. Trace edema noted. Skin is without rash or lesion. Neurologic examination is difficult to evaluate. - Labs CBC & Chem 7: 05/17/23 08:32 05/17/23 08:32 Labs: Abnormal Lab Results - Last 24 Hours (Table) 05/16/23 05/17/23 05/17/23 Range/Units 11:54 08:32 08:32 Hgb 10.0 L (11.4-16.0) gm/dL MCH 23.2 L (25.0-35.0) pg MCHC 27.9 L (31.0-37.0) g/dL RDW 18.7 H (11.5-15.5) % Lymphocytes # 0.8 L (1.0-4.8) k/uL Potassium 5.5 H (3.5-5.1) mmol/L Carbon Dioxide 33 H (22-30) mmol/L BUN 99 H 96 H (7-17) mg/dL Creatinine 3.36 H 3.37 H (0.52-1.04) mg/dL Assessment and Plan Assessment: Acute on chronic hypoxemic and hypercapnic respiratory failure related to an exacerbation of diastolic congestive heart failure. Chest x-ray on admission appeared consistent with pulmonary edema. Most recent repeat echocardiogram shows a severely increased left ventricular wall thickness, with a preserved ejection fraction of 50-55%, and was otherwise a limited exam. Hypertensive emergency, improved. Elevated troponins, likely related to above. Acute on chronic kidney injury, creatinine 3.46. Obstructive sleep apnea, noncompliant with CPAP. Utilizes 3 L/m nasal cannula mostly at night. Severe morbid obesity with a BMI of 65 kg/m. History of ventilator dependent respiratory failure. Chronic kidney disease, stage IV. Anemia of chronic disease. Left upper extremity lymphedema. History of DVT. Plan: Plan dated 05/15/2023. The patient's labs, x-rays, and medications are all reviewed. The patient was placed on BiPAP for hypoxemic and hypercapnic respiratory failure. I believe the patient can come off the BiPAP, and be placed on nasal O2, with saturations in the 88% to 92% range. Currently, the patient is not receiving any IV fluids. We will continue to follow make recommendations along the way. The patient's prognosis is guarded. She is being followed by cardiology. Plan dated 05/16/2023. The patient is currently on 4 L nasal cannula. Saturations are perfectly acceptable between 8892%. She can request to go back on BiPAP in the time. During the evening, or nighttime, the patient should wear BiPAP, with settings of 14/5 and 40%. Again, saturations should be acceptable in the 88-92% range. Labs, x-rays, medications are reviewed. The patient's prognosis is guarded. The patient is also being followed by cardiology. We will continue to see the patient and make recommendations along the way. Plan dated 05/17/2023. The patient goes back and forth between nasal O2 at 4 L, and BiPAP, with settings of 14/5, and 40%. The patient is not receiving any IV fluids. Labs, x-rays, and medications are all reviewed. The patient's overall prognosis remains very guarded. We will continue to follow the patient and make recommendations. Prognosis is guarded. Time with Patient: Less than 30
--- NOTE | 2023-05-17 11:39 | P.PN ---
Subjective Progress Note Date: 05/17/23 The patient is a 48-year-old female who presented to the hospital with worsening shortness of breath. Cardiology was consulted for congestive heart failure. Recent limited echocardiogram shows preserved LV function. TELEMETRY: Sinus rhythm to sinus tachycardia with brief runs of PAT Patient was interviewed and examined resting comfortably in bed. She states she still has shortness of breath and overall generalized fatigue. No chest pain. 05/13 Patient states that her breathing status is improved from yesterday. She continues to have some lower extremity edema. She has been maintained on IV Las ix 80 mg every 8 hours. She is in a negative fluid balance of 1270. Weight do not appear to be accurate. Repeat blood work reveals worsening renal function with BUN 78 and creatinine 3.46. Echocardiogram reveals difficult study, RV appears enlarged, LV function is normal. Likely RV pressure overload. 05/14 Patient is seen today in follow-up. She required BiPAP during the night and was feeling fatigued and groggy. Yesterday, Lasix and Zaroxolyn were discontinued. Consult for pulmonary medicine was added. She continues to have significant fluid and will be started back on IV Lasix. Heart rate is in the 70s, blood pressure 124/85, pulse ox 97% on 4 L nasal cannula. Potassium 4.4, BUN 84 creatinine 3.5. 05/15 Patient is seen today in follow-up. She is currently on BiPAP and seems more lethargic and groggy today. She continues to have lower extremity edema. Patient has a negative fluid balance of 760 ML's. Weights are not accurate. Blood pressure 128/82, heart rate 62, afebrile, pulse ox 95% on BiPAP 40% FiO2. Repeat blood work reveals minimal improvement in reveals BUN 92, creatinine 3.42. Potassium 4. 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 Blood pressure 128/76, heart rate in the 60s, afebrile. Telemetry is sinus rhythm. Repeat blood work has been ordered for today. Patient has been continued on IV Lasix 40 mg twice daily and has an diuresing well. Weights are inaccurate due to body habitus and positioning. 05/17 Patient states that she her breathing is better today. Lower extremity edema is about the same from yesterday. She has been maintained on Lasix 40 mg IV every 12 hours. She has been on BiPAP switched over to nasal cannula during the day. Blood pressure 133/82, heart rate in the 60s. Telemetry sinus rhythm Hemoglobin is 10, sodium 139, potassium 4, BUN 96 creatinine 3.37. GENERAL: Well-appearing, well-nourished and in no acute distress. NECK: Supple without JVD or thyromegaly. LUNGS: Breath sounds severely diminished to auscultation bilaterally. Respiration equal and unlabored. No wheezes, rales or rhonchi. HEART: Regular rate and rhythm without murmurs, rubs or gallops. S1 and S2 heard. EXTREMITIES: 2-3+edema to the bilateral lower extremities. No clubbing or cyanosis. Peripheral pulses intact and strong. IMPRESSION: Elevated troponins, flat trend, not indicative of ACS, secondary to chronic myocardial ischemia Acute on chronic diastolic heart failure, preserved ejection fraction Hypertension Chronic kidney disease Obstructive sleep apnea Noncompliant with CPAP Morbid obesity PLAN: Continue current cardiac medication regimen Decrease amiodarone frequency to 200 mg daily Discontinue amiodarone at discharge as there is been no sustained arrhythmia Continue patient on IV Lasix 40 mg twice daily Repeat BMP in the morning Further recommendations as patient progresses. Nurse practitioner note has been reviewed, I agree with the documented findings and plan of care. Patient was seen and examined. Objective - Vital Signs Vital signs: Vital Signs Temp 97.7 F 05/16/23 20:14 Pulse 63 05/17/23 04:00 Resp 16 05/17/23 04:00 BP 133/82 05/17/23 04:00 Pulse Ox 95 05/17/23 04:00 FiO2 40 05/17/23 08:44 Intake & Output 05/16/23 05/17/23 05/17/23 18:59 06:59 18:59 Intake Total 240 Output Total 1300 450 Balance -1300 -210 Weight 217.95 kg Intake: Oral 240 Output: Urine 1300 450 Other: Voiding Method External Catheter External Catheter # Voids 1 # Bowel Movements 1 - Labs CBC & Chem 7: 05/17/23 08:32 05/17/23 08:32 Labs: Abnormal Lab Results - Last 24 Hours (Table) 05/16/23 Range/Units 11:54 Potassium 5.5 H (3.5-5.1) mmol/L BUN 99 H (7-17) mg/dL Creatinine 3.36 H (0.52-1.04) mg/dL
[2023-05-17] MEDS: ACETAMINOPHEN TAB 325 MG TAB PO PRN (18:00)
--- NOTE | 2023-05-18 00:21 | P.PN ---
Subjective Progress Note Date: 05/17/[address] Stanford. Patient is a 48-year-old female with a past medical history of chronic CHF with diastolic dysfunction, morbid obesity BMI 75, obstructive sleep apnea not using CPAP, chronic hypoxic aspiratory failure on 3 L oxygen via nasal cannula and CKD stage IV, left upper extremity lymphedema and other medical problems presents to ER with complaints of worsening shortness of breath and lower extremity swelling. Patient did have accelerated essential hypertension on admission chest x-ray showed consistent with pulmonary edema. 05/16/2023 Patient is currently resting in the bed. Awake alert and oriented x3. Currently requiring oxygen at 4 L via nasal cannula. Patient did use BiPAP last night. No complaints of chest pain. Breathing status improving as well as leg swelling. Patient is mostly bedridden. Denies any fevers or chills. No cough or sputum production. Patient is being continued Lasix 40 mg every 12. She is also on anticoagulation with Eliquis. Laboratory data showed sodium 144, potassium 5.5 with slight hemolysis, chloride 107, BUN 19 and creatinine 3.36. 05/17/2023 Patient is currently resting in bed. Awake alert and oriented x3. Patient states that she was short of breath this morning. Currently improved. Requiring 4 L oxygen via nasal cannula. Patient did not use BiPAP overnight. No complaints of chest pain. Patient does have cough without any sputum production. No nausea vomiting abdominal pain or diarrhea. Laboratory showed sodium 139 potassium 4.0 chloride 99 bicarb is 33 BUN 96 and creatinine 3.37. Patient is being going on Lasix 40 mg every 12 and other cardiac medications. Cardiology and pulmonary is on board. Current medications reviewed. Objective - Vital Signs Vital signs: Vital Signs Temp 98.2 F 05/17/23 20:00 Pulse 66 05/17/23 20:00 Resp 18 05/17/23 20:00 BP 137/68 05/17/23 20:00 Pulse Ox 97 05/17/23 20:00 FiO2 40 05/17/23 23:27 Intake & Output 05/17/23 05/17/23 05/18/23 06:59 18:59 06:59 Intake Total 240 1450 10 Output Total 450 2 875 Balance -210 1448 -865 Weight 217.95 kg Intake: IV 10 10 0.9 10 Invasive Line 2 10 Oral 240 1440 Output: Urine 450 875 Stool 2 Other: Voiding Method External Catheter External Catheter External Catheter # Voids 1 # Bowel Movements 1 - Exam PHYSICAL EXAMINATION: Patient is lying in the bed comfortably, no acute distress, awake alert and oriented. Morbidly obese.. HEENT: Normocephalic. Neck is supple. Pupils reactive. Nostrils clear. Oral cavity is moist. Neck reveals no JVD, carotid bruits, or thyromegaly. CHEST EXAMINATION: Trachea is central. Symmetrical expansion. Lung [place] clear to auscultation and percussion. Bibasilar diminished sounds. CARDIAC: Normal S1, S2 with no gallops. No murmurs ABDOMEN: Soft. Bowel sounds present. Nontender. No organomegaly. No abdominal bruits. Extremities: Bilateral lower extremity edema. No clubbing or cyanosis Neurologically awake, alert, oriented x3 with well-coordinated movements. No gross focal deficits noted Skin: No rash or skin lesions. Psychiatric: Coperative. Nonsuicidal, Musculoskeletal: No joint swelling or deformity. Normal range of motion. - Labs CBC & Chem 7: 05/17/23 08:32 05/17/23 08:32 Labs: Abnormal Lab Results - Last 24 Hours (Table) 05/17/23 05/17/23 Range/Units 08:32 08:32 Hgb 10.0 L (11.4-16.0) gm/dL MCH 23.2 L (25.0-35.0) pg MCHC 27.9 L (31.0-37.0) g/dL RDW 18.7 H (11.5-15.5) % Lymphocytes # 0.8 L (1.0-4.8) k/uL Carbon Dioxide 33 H (22-30) mmol/L BUN 96 H (7-17) mg/dL Creatinine 3.37 H (0.52-1.04) mg/dL Assessment and Plan Assessment: Acute on chronic hypoxemic and hypercapnic respiratory failure secondary to acute on chronic HFpEF Hypertensive emergency on admission improved now. Acute on chronic disease stage IV. Creatinine 3.46. Baseline around 1.8-1.6 Elevated troponin level possible demand ischemia Obstructive sleep apnea not using CPAP/not working. Chronic hypoxemic respiratory failure on 3 L oxygen via nasal cannula Left upper extremity lymphedema chronic History of DVT Nonsustained ventricular tachycardia Morbid obesity with BMI 75.0 Plan: Patient be continued on oxygen supplementation to 4 L via nasal cannula and titrate down to 3 L as per home regimen. Patient did not use BiPAP overnight.. Continue to diuresis with Lasix 40 mg IV twice daily. Patient is on Eliquis for DVT and also was started on amiodarone for ventricular tachycardia as it is nonsustained can be discontinued as per cardiology recommendations. Continue with blood pressure medications and titrate as needed. Follow-up repeat CBC and BMP tomorrow. Cardiology and pulmonary is on board. Prognosis is guarded. Time with Patient: Greater than 30
--- NOTE | 2023-05-18 07:26 | P.PN ---
Subjective Progress Note Date: 05/18/23 Principal diagnosis: Heart failure This is a 48-year-old -Iranian female patient with morbid obesity and sleep apnea and heart failure with preserved ejection fraction as well as chronic kidney disease and hypertension and dyslipidemia and paroxysmal atrial fibrillation. She was admitted to the hospital with shortness of breath and she was diagnosed with heart failure exacerbation. May [id number] The patient was seen and evaluated this morning. She continues to be in volume overload. She has been diuresing well on the current dose of Lasix IV. Creatinine has been stable as of yesterday we don't have a blood work as of this morning. If the creatinine remains stable I would continue the patient on the current dose of Lasix IV and continue monitor the kidney function and electrolytes. The examination is remarkable for stable vital signs with bilateral lower extremity edema Assessment Heart failure exacerbation secondary to heart failure with preserved ejection fraction Paroxysmal atrial fibrillation Multiple comorbid conditions including obesity and sleep apnea and hypertension and dyslipidemia and chronic kidney disease Plan Continue the current medical regimen including the current dose of Lasix IV Continue monitor the kidney function and electrolytes Follow-up with the patient Objective - Vital Signs Vital signs: Vital Signs Temp 98.0 F 05/18/23 04:00 Pulse 67 05/18/23 04:00 Resp 17 05/18/23 04:00 BP 145/72 05/18/23 04:00 Pulse Ox 98 05/18/23 04:00 FiO2 40 05/18/23 04:41 Intake & Output 05/17/23 05/18/23 05/18/23 18:59 06:59 18:59 Intake Total 1450 10 Output Total 2 2325 Balance 1448 -2315 Weight 218 kg Intake: IV 10 10 0.9 10 Invasive Line 2 10 Oral 1440 Output: Urine 2325 Stool 2 Other: Voiding Method External Catheter External Catheter - Labs CBC & Chem 7: 05/17/23 08:32 05/17/23 08:32 Labs: Abnormal Lab Results - Last 24 Hours (Table) 05/17/23 05/17/23 Range/Units 08:32 08:32 Hgb 10.0 L (11.4-16.0) gm/dL MCH 23.2 L (25.0-35.0) pg MCHC 27.9 L (31.0-37.0) g/dL RDW 18.7 H (11.5-15.5) % Lymphocytes # 0.8 L (1.0-4.8) k/uL Carbon Dioxide 33 H (22-30) mmol/L BUN 96 H (7-17) mg/dL Creatinine 3.37 H (0.52-1.04) mg/dL
[2023-05-18 09:07] LABS: Anisocytosis Slight; Basophils % (A) 0 %; Eosinophils # (A) 0.1 k/uL (0-0.7); Eosinophils % (A) 3 %; HCT 33.9 % (34.0-46.0); HGB 9.8 gm/dL (11.4-16.0); Hypochromasia Marked; Lymphocytes # (A) 0.8 k/uL (1.0-4.8); Lymphocytes % (A) 16 %; MCH 23.2 pg (25.0-35.0); MCHC 28.8 g/dL (31.0-37.0); MCV 80.4 fL (80.0-100.0); Mean Platelet Volume 9.8; Microcytosis Slight; Monocytes # (A) 0.4 k/uL (0-1.0); Monocytes % (A) 7 %; Neutrophils # (A) 3.5 k/uL (1.3-7.7); Neutrophils % (A) 71 %; Platelet Count 192 k/uL (150-450); RBC 4.22 m/uL (3.80-5.40); RDW 18.6 % (11.5-15.5); WBC 4.9 k/uL (3.8-10.6)
[2023-05-18 09:48] LABS: Chloride 99 mmol/L (98-107)
[2023-05-18 09:49] LABS: African American GFR (CKD) 20 (>60 ml/min/1.73 sqM); Anion Gap 3 mmol/L; Blood Urea Nitrogen 93 mg/dL (7-17); Calcium 8.4 mg/dL (8.4-10.2); Carbon Dioxide 36 mmol/L (22-30); Glucose 92 mg/dL (74-99); Non-African American GFR(CKD) 17 (>60 ml/min/1.73 sqM); Potassium 3.9 mmol/L (3.5-5.1); Sodium 138 mmol/L (137-145)
[2023-05-18] MEDS: ASPIRIN 81 MG PO SCH (09:51)
[2023-05-18] MEDS: AMIODARONE 200 MG TAB PO SCH (09:51)
[2023-05-18] MEDS: hydrALAZINE HCL 50 MG TAB PO SCH ×3 (09:51→21:08)
[2023-05-18] MEDS: APIXABAN 5 MG TAB PO SCH ×2 (09:51→21:08)
[2023-05-18] MEDS: PANTOPRAZOLE 40 MG TABLET PO SCH (09:52)
[2023-05-18] MEDS: MAGNESIUM OXIDE 400 MG TAB PO SCH (09:52)
[2023-05-18] MEDS: FOLIC ACID 1 MG TAB PO SCH (09:52)
[2023-05-18] MEDS: METOPROLOL SUCCINATE (ER) 50 MG TAB.ER.24H PO SCH (09:52)
[2023-05-18] MEDS: FUROSEMIDE 10 MG/ML 4 ML VIAL IV SCH ×2 (09:52→21:08)
--- NOTE | 2023-05-18 11:23 | P.PN ---
Subjective Progress Note Date: 05/18/23 Principal diagnosis: Respiratory failure. I am seeing this patient in new consultation today 05/14/2023 on the cardiac stepdown unit for acute diastolic CHF exacerbation and mild hypoxemic and hypercapnic respiratory failure. Patient is a 48-year-old -[place] female with past medical history significant for CHF, hypertension, morbid obesity, obstructive sleep apnea without CPAP because it is broken, chronic oxygen dependence with 3 L/m nasal cannula mostly at night, previous ventilator dependent respiratory failure, hypertension, chronic kidney disease stage IV, l eft upper extremity lymphedema, anemia, and frequent urinary tract infections. Patient has frequent hospital admissions for congestive heart failure, and was last seen back in February,. Patient presented in the emergency room back on 05/09/2023 with complaints of increasing shortness of breath and lower extremity swelling for approximately 24 hours prior to arrival. She denies any fever, chills, myalgias, cough, hemoptysis. She denies any chest pain, heart palpitations. She was severely hypertensive on arrival to emergency room, which her blood pressure has now improved, and is now normotensive. Chest x-ray on admission appeared consistent with pulmonary edema. Echocardiogram showed severely increased left ventricular wall thickness with a preserved ejection fraction of 50-55%, and was otherwise a limited exam. Patient was aggressively diuresed with IV Lasix for several days. We were not consulted until late last night when the patient started to experience shortness of breath accompanied with acute confusion and was reportedly talking to herself. ABGs were consistent with mild hypercapnic respiratory failure showing a pCO2 of 63 and pH of 7.3 to, pO2 was 72 on 4 L/m nasal cannula. On my evaluation, the patient is sitting up in bed, with a somewhat delayed response to questioning, otherwise in no acute distress. She is fully oriented. She will be placed on BiPAP with settings 14/5 and FiO2 of 40% to be titrated accordingly. CBC on arrival was fairly unremarkable. There was some mild anemia of chronic disease. Most recent BMP shows a component of acute on chronic kidney disease. Sodium was 140, potassium 4.4, chloride 101, serum bicarbonate 32, BUN 78, creatinine 3.46, glucose 106. Troponins were elevated and are modestly trending up at 0.036, 0.04, 0.055. Patient denies any chest pain, she does state that she has some mild chest tightness. EKG on admission showed sinus tachycardia without any obvious acute ischemic changes. Patient will be monitored on the cardiac stepdown unit. Progress note dated 05/15/2023. 48-year-old female well-known to our service. She has a history of diastolic CHF, and, we were consulted for abnormal blood gases, which showed evidence of hypercapnic respiratory failure. The patient also has a history of hypert ension, morbid obesity, sleep apnea, and chronic hypoxemic respiratory failure. She is seen today in room 363. She remains on BiPAP with settings of 14/5 and 40%. She's not receiving any IV fluids. I've asked the nurses to have respiratory take her off BiPAP, and place her on nasal O2, and shoot for saturations are between 88% and 92%. Sodium 143, potassium 4, chlorides 101, CO2 32, BUN 92, and creatinine 3.42. Progress note dated 05/16/2023. 48-year-old black female, well-known to our service. She seen again today in room 363. The patient uses BiPAP at nighttime, with settings of 14/5, and 40%. During the daytime, she uses nasal O2 at 4 L. Currently, the patient appears to be relatively stable. No new lab data today. Lab data from May 15 has been reviewed. Progress note dated 05/17/2023. 48-year-old black female, seen today in room 363. She is currently not on any IV fluids. She goes back and forth between oxygen by nasal cannula at 4 L, and BiPAP, with settings of 14/5 and 40%. She apparently didn't use BiPAP overnight, according to the nurse. White count is 5.6, hemoglobin 10, hematocrit 35.8, with a platelet count of 179,000. Sodium 139, potassium 4, chlorides 99, CO2 33, BUN 96, creatinine 3.37. Progress note dated 05/18/2023. 48-year-old black female, seen in room 363. The patient's currently not receiving any IV fluids. The patient's currently on BiPAP, with settings of 14/5, and 40%. When not on BiPAP, the patient's on nasal O2 at 4 L. She appears more comfortable. White count 4.9, hemoglobin 9.8, hematocrit 33.9, with a normal platelet count. Sodium 138, potassium 3.9, chlorides 99, CO2 36, BUN 93, and creatinine 3.03. No recent chest x-ray. Objective - Vital Signs Vital signs: Vital Signs Temp 98.0 F 05/18/23 04:00 Pulse 67 05/18/23 04:00 Resp 17 05/18/23 04:00 BP 145/72 05/18/23 04:00 Pulse Ox 98 05/18/23 04:00 FiO2 40 05/18/23 08:28 Intake & Output 05/17/23 05/18/23 05/18/23 18:59 06:59 18:59 Intake Total 1450 10 Output Total 2 2325 Balance 1448 -2315 Weight 218 kg Intake: IV 10 10 0.9 10 Invasive Line 2 10 Oral 1440 Output: Urine 2325 Stool 2 Other: Voiding Method External Catheter External Catheter - Exam No acute distress, awake and alert, currently on BiPAP. HEENT examination is grossly unremarkable. Neck supple. Full range of motion. No adenopathy thyromegaly or neck vein dis tention. Cardiovascular examination reveals regular rhythm rate. S1-S2 normal. No S3 or S4. No discernible murmur noted. Heart rate 67 bpm. Heart sounds are distant. Lungs reveal scattered rhonchi and crackles. Breath sounds are equal bilaterally. No wheezes. Saturations are 98 % on BiPAP. Abdomen soft bowel sounds are heard. No masses or tenderness. Extremities are intact. No cyanosis or clubbing. Trace edema noted. Skin is without rash or lesion. Neurologic examination is difficult to evaluate. - Labs CBC & Chem 7: 05/18/23 08:46 05/18/23 08:46 Labs: Abnormal Lab Results - Last 24 Hours (Table) 05/18/23 05/18/23 Range/Units 08:46 08:46 Hgb 9.8 L (11.4-16.0) gm/dL Hct 33.9 L (34.0-46.0) % MCH 23.2 L (25.0-35.0) pg MCHC 28.8 L (31.0-37.0) g/dL RDW 18.6 H (11.5-15.5) % Lymphocytes # 0.8 L (1.0-4.8) k/uL Carbon Dioxide 36 H (22-30) mmol/L BUN 93 H (7-17) mg/dL Creatinine 3.03 H (0.52-1.04) mg/dL Assessment and Plan Assessment: Acute on chronic hypoxemic and hypercapnic respiratory failure related to an exacerbation of diastolic congestive heart failure. Chest x-ray on admission appeared consistent with pulmonary edema. Most recent repeat echocardiogram shows a severely increased left ventricular wall thickness, with a preserved ejection fraction of 50-55%, and was otherwise a limited exam. Hypertensive emergency, improved. Elevated troponins, likely related to above. Acute on chronic kidney injury, creatinine 3.46. Obstructive sleep apnea, noncompliant with CPAP. Utilizes 3 L/m nasal cannula mostly at night. Severe morbid obesity with a BMI of 65 kg/m. History of ventilator dependent respiratory failure. Chronic kidney disease, stage IV. Anemia of chronic disease. Left upper extremity lymphedema. History of DVT. Plan: Plan dated 05/15/2023. The patient's labs, x-rays, and medications are all reviewed. The patient was placed on BiPAP for hypoxemic and hypercapnic respiratory failure. I believe the patient can come off the BiPAP, and be placed on nasal O2, with saturations in the 88% to 92% range. Currently, the patient is not receiving any IV fluids. We will continue to follow make recommendations along the way. The patient's prognosis is guarded. She is being followed by cardiology. Plan dated 05/16/2023. The patient is currently on 4 L nasal cannula. Saturations are perfectly acceptable between 8892%. She can request to go back on BiPAP in the time. During the evening, or nighttime, the patient should wear BiPAP, with settings of 14/5 and 40%. Again, saturations should be acceptable in the 88-92% range. Labs, x-rays, medications are reviewed. The patient's prognosis is guarded. The patient is also being followed by cardiology. We will continue to see the patient and make recommendations along the way. Plan dated 05/17/2023. The patient goes back and forth between nasal O2 at 4 L, and BiPAP, with settings of 14/5, and 40%. The patient is not receiving any IV fluids. Labs, x-rays, and medications are all reviewed. The patient's overall prognosis remains very guarded. We will continue to follow the patient and make recommendations. Prognosis is guarded. Plan dated 05/18/2023. Currently, the patient's on BiPAP, with settings of 14/5, and 40%. When not on BiPAP, the patient uses nasal O2 at 4 L. I've alerted the nurses, that her saturations are perfectly acceptable between 88% and 92%. Labs, x-rays, medications are reviewed. She's being followed by cardiology as well. We will continue to follow the patient and make recommendations. Her prognosis is certainly guarded. Time with Patient: Less than 30
--- NOTE | 2023-05-19 06:41 | P.PN ---
Subjective Progress Note Date: 05/18/[address] Stanford. Patient is a 48-year-old female with a past medical history of chronic CHF with diastolic dysfunction, morbid obesity BMI 75, obstructive sleep apnea not using CPAP, chronic hypoxic aspiratory failure on 3 L oxygen via nasal cannula and CKD stage IV, left upper extremity lymphedema and other medical problems presents to ER with complaints of worsening shortness of breath and lower extremity swelling. Patient did have accelerated essential hypertension on admission chest x-ray showed consistent with pulmonary edema. 05/16/2023 Patient is currently resting in the bed. Awake alert and oriented x3. Currently requiring oxygen at 4 L via nasal cannula. Patient did use BiPAP last night. No complaints of chest pain. Breathing status improving as well as leg swelling. Patient is mostly bedridden. Denies any fevers or chills. No cough or sputum production. Patient is being continued Lasix 40 mg every 12. She is also on anticoagulation with Eliquis. Laboratory data showed sodium 144, potassium 5.5 with slight hemolysis, chloride 107, BUN 19 and creatinine 3.36. 05/17/2023 Patient is currently resting in bed. Awake alert and oriented x3. Patient states that she was short of breath this morning. Currently improved. Requiring 4 L oxygen via nasal cannula. Patient did not use BiPAP overnight. No complaints of chest pain. Patient does have cough without any sputum production. No nausea vomiting abdominal pain or diarrhea. Laboratory showed sodium 139 potassium 4.0 chloride 99 bicarb is 33 BUN 96 and creatinine 3.37. Patient is being going on Lasix 40 mg every 12 and other cardiac medications. Cardiology and pulmonary is on board. 05/18/2023 Patient is seen and evaluated in follow-up today maintained on IV Lasix and diuresing well. Patient continues for CHF exacerbation. Patient with history of chronic kidney disease and kidney functions remain elevated patient continues to make urine. Patient is using BiPAP at night and chronically wears oxygen outpatient. Patient is afebrile with no reports of chest pain or worsening shortness of breath. Patient tolerating diet with no reported nausea or vomiting. Review of systems: Constitutional: No reports of fatigue, fever, or chills Cardiovascular: No reports of chest pain or palpitations Respiratory: No reports of shortness of breath or cough GI: No reports of nausea, vomiting, or diarrhea : No reports of dysuria or retention Neurovascular: reports of generalized weakness All medications have been reviewed PHYSICAL EXAMINATION: Patient is lying in the bed comfortably, no acute distress, awake alert and oriented. Morbidly obese.. HEENT: Normocephalic. Neck is supple. Pupils reactive. Nostrils clear. Oral cavity is moist. Neck reveals no JVD, carotid bruits, or thyromegaly. CHEST EXAMINATION: Trachea is central. Symmetrical expansion. Lung [place] clear to auscultation and percussion. Bibasilar diminished sounds. CARDIAC: Normal S1, S2 with no gallops. No murmurs ABDOMEN: Soft. Obese Bowel sounds present. Nontender. No organomegaly. No abdominal bruits. Extremities: Bilateral lower extremity edema. No clubbing or cyanosis Neurologically awake, alert, oriented x3 with well-coordinated movements. No gross focal deficits noted Skin: No rash or skin lesions. Psychiatric: Cooperative. Non-suicidal, Musculoskeletal: No joint swelling or deformity. Normal range of motion. Assessment: Acute on chronic hypoxemic and hypercapnic respiratory failure secondary to acute on chronic HFpEF Hypertensive emergency on admission improved now. Acute on chronic disease stage IV. Creatinine 3.46. Baseline around 1.8-1.6 Elevated troponin level possible demand ischemia Obstructive sleep apnea not using CPAP/not working. Chronic hypoxemic respiratory failure on 3 L oxygen via nasal cannula Left upper extremity lymphedema chronic History of DVT Nonsustained ventricular tachycardia Morbid obesity with BMI 75.0 Plan: Patient be continued on oxygen supplementation to 4 L via nasal cannula and titrate down to 3 L as per home regimen. Patient is using BiPAP at night and chronically is supposed to be wearing a CPAP in the outpatient setting at night although reports of the machine not working. Continue to diuresis with Lasix 40 mg IV twice daily. Cardiology following for CHF exacerbation Patient is on Eliquis for DVT and also was started on amiodarone for ventricular tachycardia as it is nonsustained can be discontinued as per cardiology recommen dations. Continue with blood pressure medications and titrate as needed. Repeat labs ordered. Monitor kidney functions if they remain elevated above 3 currently with acute on chronic kidney disease Encourage increased activity as tolerated. Possible PT/OT therapy evaluation Due to multiple complex medical issues, prognosis is guarded The impression and plan of care has been dictated as a scribe by Clare Palmer, Nurse Practitioner as directed. Dr. Rosemary MD I have performed a history and examination and MDM of this patient, discussed the same with the dictator, and will be documented as a scribe. Based on total visit time, I have performed more than 50% of the visit. Objective - Vital Signs Vital signs: Vital Signs Temp 97.7 F 05/18/23 08:00 Pulse 71 05/18/23 12:00 Resp 16 05/18/23 08:00 BP 124/68 05/18/23 12:00 Pulse Ox 100 05/18/23 12:00 FiO2 40 05/18/23 08:28 Intake & Output 05/17/23 05/18/23 05/18/23 18:59 06:59 18:59 Intake Total 1450 10 180 Output Total 2 2325 300 Balance 1448 -2315 -120 Weight 218 kg Intake: IV 10 10 0.9 10 Invasive Line 2 10 Oral 1440 180 Output: Urine 2325 300 Stool 2 Other: Voiding Method External Catheter External Catheter External Catheter - Labs CBC & Chem 7: 05/18/23 08:46 05/18/23 08:46 Labs: Abnormal Lab Results - Last 24 Hours (Table) 05/18/23 05/18/23 Range/Units 08:46 08:46 Hgb 9.8 L (11.4-16.0) gm/dL Hct 33.9 L (34.0-46.0) % MCH 23.2 L (25.0-35.0) pg MCHC 28.8 L (31.0-37.0) g/dL RDW 18.6 H (11.5-15.5) % Lymphocytes # 0.8 L (1.0-4.8) k/uL Carbon Dioxide 36 H (22-30) mmol/L BUN 93 H (7-17) mg/dL Creatinine 3.03 H (0.52-1.04) mg/dL
--- NOTE | 2023-05-19 07:08 | P.PN ---
Subjective Progress Note Date: 05/19/23 Principal diagnosis: Heart failure This is a 48-year-old -[place] female patient with morbid obesity and sleep apnea and heart failure with preserved ejection fraction as well as chronic kidney disease and hypertension and dyslipidemia and paroxysmal atrial fibrillation. She was admitted to the hospital with shortness of breath and she was diagnosed with heart failure exacerbation. May [id number] The patient was seen and evaluated this morning. She continues to be in volume overload. She has been diuresing well on the current dose of Lasix IV. Creatinine has been stable as of yesterday we don't have a blood work as of this morning. If the creatinine remains stable I would continue the patient on the current dose of Lasix IV and continue monitor the kidney function and electrolytes. The examination is remarkable for stable vital signs with bilateral lower extremity edema May 192022 The patient was seen this morning. She seems to be stable side being on oxygen which has not changed compared to before. She continues to diurese well. She continues to be on Lasix IV. The creatinine remains stable. No blood work as of this morning and will follow-up with a blood work this morning. Meanwhile continue the current medical regimen including current dose of Lasix IV and continue monitor her kidney function and electrolytes. The examination is remarkable for bilateral lower extremity edema which has definitely improved compared to before. Assessment Heart failure exacerbation secondary to heart failure with preserved ejection fraction Paroxysmal atrial fibrillation Multiple comorbid conditions including obesity and sleep apnea and hypertension and dyslipidemia and chronic kidney disease Plan Continue the current medical regimen including the current dose of Lasix IV Continue monitor the kidney function and electrolytes Follow-up with the patient Objective - Vital Signs Vital signs: Vital Signs Temp 97.9 F 05/19/23 04:00 Pulse 71 05/19/23 04:00 Resp 15 05/19/23 04:00 BP 124/78 05/19/23 04:00 Pulse Ox 95 05/19/23 04:00 FiO2 40 05/19/23 04:34 Intake & Output 05/18/23 05/19/23 05/19/23 18:59 06:59 18:59 Intake Total 360 10 Output Total 1200 Balance -840 10 Weight 217 kg Intake: IV 10 Invasive Line 2 10 Oral 360 Output: Urine 1200 Other: Voiding Method External Catheter External Catheter # Voids 2 - Labs CBC & Chem 7: 05/18/23 08:46 05/18/23 08:46 Labs: Abnormal Lab Results - Last 24 Hours (Table) 05/18/23 05/18/23 Range/Units 08:46 08:46 Hgb 9.8 L (11.4-16.0) gm/dL Hct 33.9 L (34.0-46.0) % MCH 23.2 L (25.0-35.0) pg MCHC 28.8 L (31.0-37.0) g/dL RDW 18.6 H (11.5-15.5) % Lymphocytes # 0.8 L (1.0-4.8) k/uL Carbon Dioxide 36 H (22-30) mmol/L BUN 93 H (7-17) mg/dL Creatinine 3.03 H (0.52-1.04) mg/dL
[2023-05-19] MEDS: MAGNESIUM OXIDE 400 MG TAB PO SCH (09:02)
[2023-05-19] MEDS: PANTOPRAZOLE 40 MG TABLET PO SCH (09:02)
[2023-05-19] MEDS: ASPIRIN 81 MG PO SCH (09:02)
[2023-05-19] MEDS: METOPROLOL SUCCINATE (ER) 50 MG TAB.ER.24H PO SCH (09:02)
[2023-05-19] MEDS: FUROSEMIDE 10 MG/ML 4 ML VIAL IV SCH ×2 (09:02→21:20)
[2023-05-19] MEDS: hydrALAZINE HCL 50 MG TAB PO SCH ×3 (09:02→21:20)
[2023-05-19] MEDS: FOLIC ACID 1 MG TAB PO SCH (09:02)
[2023-05-19] MEDS: AMIODARONE 200 MG TAB PO SCH (09:02)
[2023-05-19] MEDS: APIXABAN 5 MG TAB PO SCH ×2 (09:02→21:20)
--- NOTE | 2023-05-19 10:30 | P.PN ---
Subjective Progress Note Date: 05/19/23 Principal diagnosis: Respiratory failure. I am seeing this patient in new consultation today 05/14/2023 on the cardiac stepdown unit for acute diastolic CHF exacerbation and mild hypoxemic and hypercapnic respiratory failure. Patient is a 48-year-old -[place] female with past medical history significant for CHF, hypertension, morbid obesity, obstructive sleep apnea without CPAP because it is broken, chronic oxygen dependence with 3 L/m nasal cannula mostly at night, previous ventilator dependent respiratory failure, hypertension, chronic kidney disease stage IV, l eft upper extremity lymphedema, anemia, and frequent urinary tract infections. Patient has frequent hospital admissions for congestive heart failure, and was last seen back in February,. Patient presented in the emergency room back on 05/09/2023 with complaints of increasing shortness of breath and lower extremity swelling for approximately 24 hours prior to arrival. She denies any fever, chills, myalgias, cough, hemoptysis. She denies any chest pain, heart palpitations. She was severely hypertensive on arrival to emergency room, which her blood pressure has now improved, and is now normotensive. Chest x-ray on admission appeared consistent with pulmonary edema. Echocardiogram showed severely increased left ventricular wall thickness with a preserved ejection fraction of 50-55%, and was otherwise a limited exam. Patient was aggressively diuresed with IV Lasix for several days. We were not consulted until late last night when the patient started to experience shortness of breath accompanied with acute confusion and was reportedly talking to herself. ABGs were consistent with mild hypercapnic respiratory failure showing a pCO2 of 63 and pH of 7.3 to, pO2 was 72 on 4 L/m nasal cannula. On my evaluation, the patient is sitting up in bed, with a somewhat delayed response to questioning, otherwise in no acute distress. She is fully oriented. She will be placed on BiPAP with settings 14/5 and FiO2 of 40% to be titrated accordingly. CBC on arrival was fairly unremarkable. There was some mild anemia of chronic disease. Most recent BMP shows a component of acute on chronic kidney disease. Sodium was 140, potassium 4.4, chloride 101, serum bicarbonate 32, BUN 78, creatinine 3.46, glucose 106. Troponins were elevated and are modestly trending up at 0.036, 0.04, 0.055. Patient denies any chest pain, she does state that she has some mild chest tightness. EKG on admission showed sinus tachycardia without any obvious acute ischemic changes. Patient will be monitored on the cardiac stepdown unit. Progress note dated 05/15/2023. 48-year-old female well-known to our service. She has a history of diastolic CHF, and, we were consulted for abnormal blood gases, which showed evidence of hypercapnic respiratory failure. The patient also has a history of hypert ension, morbid obesity, sleep apnea, and chronic hypoxemic respiratory failure. She is seen today in room 363. She remains on BiPAP with settings of 14/5 and 40%. She's not receiving any IV fluids. I've asked the nurses to have respiratory take her off BiPAP, and place her on nasal O2, and shoot for saturations are between 88% and 92%. Sodium 143, potassium 4, chlorides 101, CO2 32, BUN 92, and creatinine 3.42. Progress note dated 05/16/2023. 48-year-old black female, well-known to our service. She seen again today in room 363. The patient uses BiPAP at nighttime, with settings of 14/5, and 40%. During the daytime, she uses nasal O2 at 4 L. Currently, the patient appears to be relatively stable. No new lab data today. Lab data from May 15 has been reviewed. Progress note dated 05/17/2023. 48-year-old black female, seen today in room 363. She is currently not on any IV fluids. She goes back and forth between oxygen by nasal cannula at 4 L, and BiPAP, with settings of 14/5 and 40%. She apparently didn't use BiPAP overnight, according to the nurse. White count is 5.6, hemoglobin 10, hematocrit 35.8, with a platelet count of 179,000. Sodium 139, potassium 4, chlorides 99, CO2 33, BUN 96, creatinine 3.37. Progress note dated 05/18/2023. 48-year-old black female, seen in room 363. The patient's currently not receiving any IV fluids. The patient's currently on BiPAP, with settings of 14/5, and 40%. When not on BiPAP, the patient's on nasal O2 at 4 L. She appears more comfortable. White count 4.9, hemoglobin 9.8, hematocrit 33.9, with a normal platelet count. Sodium 138, potassium 3.9, chlorides 99, CO2 36, BUN 93, and creatinine 3.03. No recent chest x-ray. Progress note dated 05/19/2023. 48-year-old black female seen in room 363. Currently, she is on 4 L by nasal cannula. She use BiPAP last night, with her usual settings, a 14/5, and 40%. I asked her to try to use BiPAP at nighttime, and nasal oxygen during the daytime if possible. No new labs today. Labs from yesterday have been reviewed. No recent chest x-ray. Objective - Vital Signs Vital signs: Vital Signs Temp 98.4 F 05/19/23 08:56 Pulse 60 05/19/23 10:06 Resp 18 05/19/23 10:06 BP 167/83 05/19/23 08:56 Pulse Ox 100 05/19/23 08:56 FiO2 40 05/19/23 08:09 Intake & Output 05/18/23 05/19/23 05/19/23 18:59 06:59 18:59 Intake Total 360 10 180 Output Total 1200 1000 Balance -840 10 -820 Weight 217 kg Intake: IV 10 Invasive Line 2 10 Oral 360 180 Output: Urine 1200 1000 Other: Voiding Method External Catheter External Catheter External Catheter # Voids 2 - Exam No acute distress, awake and alert, currently on 4 L, nasal cannula. HEENT examination is grossly unremarkable. Neck supple. Full range of motion. No adenopathy thyromegaly or neck vein dist ention. Cardiovascular examination reveals regular rhythm rate. S1-S2 normal. No S3 or S4. No discernible murmur noted. Heart rate 60 bpm. Heart sounds are distant. Lungs reveal scattered rhonchi and crackles. Breath sounds are equal bilaterally. No wheezes. Saturations are 100% on 4 L nasal cannula. Abdomen soft bowel sounds are heard. No masses or tenderness. Extremities are intact. No cyanosis or clubbing. Trace edema noted. Skin is without rash or lesion. Neurologic examination is difficult to evaluate. - Labs CBC & Chem 7: 05/18/23 08:46 05/18/23 08:46 Assessment and Plan Assessment: Acute on chronic hypoxemic and hypercapnic respiratory failure related to an exacerbation of diastolic congestive heart failure. Chest x-ray on admission appeared consistent with pulmonary edema. Most recent repeat echocardiogram shows a severely increased left ventricular wall thickness, with a preserved ejection fraction of 50-55%, and was otherwise a limited exam. Hypertensive emergency, improved. Elevated troponins, likely related to above. Acute on chronic kidney injury, creatinine 3.46. Obstructive sleep apnea, noncompliant with CPAP. Utilizes 3 L/m nasal cannula mostly at night. Severe morbid obesity with a BMI of 65 kg/m. History of ventilator dependent respiratory failure. Chronic kidney disease, stage IV. Anemia of chronic disease. Left upper extremity lymphedema. History of DVT. Plan: Plan dated 05/15/2023. The patient's labs, x-rays, and medications are all reviewed. The patient was placed on BiPAP for hypoxemic and hypercapnic respiratory failure. I believe the patient can come off the BiPAP, and be placed on nasal O2, with saturations in the 88% to 92% range. Currently, the patient is not receiving any IV fluids. We will continue to follow make recommendations along the way. The patient's prognosis is guarded. She is being followed by cardiology. Plan dated 05/16/2023. The patient is currently on 4 L nasal cannula. Saturations are perfectly acceptable between 8892%. She can request to go back on BiPAP in the time. During the evening, or nighttime, the patient should wear BiPAP, with settings of 14/5 and 40%. Again, saturations should be acceptable in the 88-92% range. Labs, x-rays, medications are reviewed. The patient's prognosis is guarded. The patient is also being followed by cardiology. We will continue to see the patient and make recommendations along the way. Plan dated 05/17/2023. The patient goes back and forth between nasal O2 at 4 L, and BiPAP, with settings of 14/5, and 40%. The patient is not receiving any IV fluids. Labs, x-rays, and medications are all reviewed. The patient's overall prognosis remains very guarded. We will continue to follow the patient and make recommendations. Prognosis is guarded. Plan dated 05/18/2023. Currently, the patient's on BiPAP, with settings of 14/5, and 40%. When not on BiPAP, the patient uses nasal O2 at 4 L. I've alerted the nurses, that her saturations are perfectly acceptable between 88% and 92%. Labs, x-rays, medic ations are reviewed. She's being followed by cardiology as well. We will continue to follow the patient and make recommendations. Her prognosis is certainly guarded. Plan dated 05/19/2023. The patient is seen today in room 363. She is currently using nasal O2 at 4 L. Her saturations are excellent. She had an uneventful night. Labs are reviewed. Clinically, the patient appears to be doing better, and she does feel better. We will continue to follow and make recommendations along the way. Her overall prognosis remains guarded. Time with Patient: Less than 30
--- NOTE | 2023-05-19 11:12 | P.PN ---
Subjective Progress Note Date: 05/19/[address] Stanford. Patient is a 48-year-old female with a past medical history of chronic CHF with diastolic dysfunction, morbid obesity BMI 75, obstructive sleep apnea not using CPAP, chronic hypoxic aspiratory failure on 3 L oxygen via nasal cannula and CKD stage IV, left upper extremity lymphedema and other medical problems presents to ER with complaints of worsening shortness of breath and lower extremity swelling. Patient did have accelerated essential hypertension on admission chest x-ray showed consistent with pulmonary edema. 05/16/2023 Patient is currently resting in the bed. Awake alert and oriented x3. Currently requiring oxygen at 4 L via nasal cannula. Patient did use BiPAP last night. No complaints of chest pain. Breathing status improving as well as leg swelling. Patient is mostly bedridden. Denies any fevers or chills. No cough or sputum production. Patient is being continued Lasix 40 mg every 12. She is also on anticoagulation with Eliquis. Laboratory data showed sodium 144, potassium 5.5 with slight hemolysis, chloride 107, BUN 19 and creatinine 3.36. 05/17/2023 Patient is currently resting in bed. Awake alert and oriented x3. Patient states that she was short of breath this morning. Currently improved. Requiring 4 L oxygen via nasal cannula. Patient did not use BiPAP overnight. No complaints of chest pain. Patient does have cough without any sputum production. No nausea vomiting abdominal pain or diarrhea. Laboratory showed sodium 139 potassium 4.0 chloride 99 bicarb is 33 BUN 96 and creatinine 3.37. Patient is being going on Lasix 40 mg every 12 and other cardiac medications. Cardiology and pulmonary is on board. 05/18/2023 Patient is seen and evaluated in follow-up today maintained on IV Lasix and diuresing well. Patient continues for CHF exacerbation. Patient with history of chronic kidney disease and kidney functions remain elevated patient continues to make urine. Patient is using BiPAP at night and chronically wears oxygen outpatient. Patient is afebrile with no reports of chest pain or worsening shortness of breath. Patient tolerating diet with no reported nausea or vomiting. 05/19/2023 Patient is seen this morning currently being followed by pulmonary as well as cardiology. Patient is continue on IV Lasix 40 mg twice daily in a.m. labs pending. Will follow-up with chest x-ray in the a.m. along with continued monitoring of kidney functions. Creatinine was elevated and patient does have history of chronic kidney disease. Patient is afebrile with no reported chest pain or worsening shortness of breath. No reported nausea or vomiting and patient tolerating diet. Review of systems: Constitutional: No reports of fatigue, fever, or chills Cardiovascular: No reports of chest pain or palpitations Respiratory: No reports of shortness of breath or cough GI: No reports of nausea, vomiting, or diarrhea : No reports of dysuria or retention Neurovascular: reports of generalized weakness All medications have been reviewed PHYSICAL EXAMINATION: Patient is lying in the bed comfortably, no acute distress, awake alert and oriented. Morbidly obese.. HEENT: Normocephalic. Neck is supple. Pupils reactive. Nostrils clear. Oral cavity is moist. Neck reveals no JVD, carotid bruits, or thyromegaly. CHEST EXAMINATION: Trachea is central. Symmetrical expansion. Lung [place] clear to auscultation and percussion. Bibasilar diminished sounds. CARDIAC: Normal S1, S2 with no gallops. No murmurs ABDOMEN: Soft. Obese Bowel sounds present. Nontender. No organomegaly. No abdominal bruits. Extremities: Bilateral lower extremity edema. No clubbing or cyanosis Neurologically awake, alert, oriented x3 with well-coordinated movements. No gross focal deficits noted Skin: No rash or skin lesions. Psychiatric: Cooperative. Non-suicidal, Musculoskeletal: No joint swelling or deformity. Normal range of motion. Assessment: Acute on chronic hypoxemic and hypercapnic respiratory failure secondary to acute on chronic HFpEF Hypertensive emergency on admission improved now. Acute on chronic disease stage IV. Creatinine 3.46. Baseline around 1.8-1.6 Elevated troponin level possible demand ischemia Obstructive sleep apnea not using CPAP/not working. Chronic hypoxemic respiratory failure on 3 L oxygen via nasal cannula Left upper extremity lymphedema chronic History of DVT Nonsustained ventricular tachycardia Morbid obesity with BMI 75.0 Plan: Patient be continued on oxygen supplementation to 4 L via nasal cannula and titrate down to 3 L as per home regimen. Patient is using BiPAP at night and chronically is supposed to be wearing a CPAP in the outpatient setting at night although reports of the machine not working. Continue to diuresis with Lasix 40 mg IV twice daily. Cardiology following for CHF exacerbation. A.m. kidney function labs are pending Patient is on Eliquis for DVT. cardiology recommendations. Continue with blood pressure medications and titrate as needed. Repeat labs ordered. Monitor kidney functions if they remain elevated above 3 and slightly trending down, currently with acute on chronic kidney disease did consider nephrology consultation if worsening. Patient is urinating and diuresing well. Encourage increased activity as tolerated. Possible PT/OT therapy evaluation Due to multiple complex medical issues, prognosis is guarded The impression and plan of care has been dictated as a scribe by Clare Palmer, Nurse Practitioner as directed. Dr. Rosemary MD I have performed a history and examination and MDM of this patient, discussed the same with the dictator, and will be documented as a scribe. Based on total visit time, I have performed more than 50% of the visit. Objective - Vital Signs Vital signs: Vital Signs Temp 98.4 F 05/19/23 08:56 Pulse 60 05/19/23 10:06 Resp 18 05/19/23 10:06 BP 167/83 05/19/23 08:56 Pulse Ox 100 05/19/23 08:56 FiO2 40 05/19/23 08:09 Intake & Output 05/18/23 05/19/23 05/19/23 18:59 06:59 18:59 Intake Total 360 10 180 Output Total 1200 1000 Balance -840 10 -820 Weight 217 kg Intake: IV 10 Invasive Line 2 10 Oral 360 180 Output: Urine 1200 1000 Other: Voiding Method External Catheter External Catheter External Catheter # Voids 2 - Labs CBC & Chem 7: 05/18/23 08:46 05/18/23 08:46
[2023-05-19 14:24] LABS: African American GFR (CKD) 20 (>60 ml/min/1.73 sqM); Anion Gap 7 mmol/L; Blood Urea Nitrogen 87 mg/dL (7-17); Calcium 8.9 mg/dL (8.4-10.2); Carbon Dioxide 36 mmol/L (22-30); Chloride 96 mmol/L (98-107); Glucose 121 mg/dL (74-99); Non-African American GFR(CKD) 17 (>60 ml/min/1.73 sqM); Sodium 139 mmol/L (137-145)
--- NOTE | 2023-05-20 07:29 | XR ---
EXAMINATION TYPE: XR chest 1V portable DATE OF EXAM: 05/20/2023 COMPARISON: 05/09/2023 INDICATION: CHF TECHNIQUE: Single frontal view of the chest is obtained semiupright position. FINDINGS: The heart size is enlarged. The pulmonary vasculature is normal. Posterior bilateral lung infiltrates are present. There is silhouetting the left diaphragm. IMPRESSION: 1. Posterior lower lobe infiltrates present bilaterally correlate for atelectasis or pneumonia. Pulmo nary edema could be considered. Follow-up is recommended. 2. Cardiomegaly
[2023-05-20] MEDS: FUROSEMIDE 10 MG/ML 4 ML VIAL IV SCH ×2 (09:18→20:31)
[2023-05-20] MEDS: AMIODARONE 200 MG TAB PO SCH (09:18)
[2023-05-20] MEDS: MAGNESIUM OXIDE 400 MG TAB PO SCH (09:18)
[2023-05-20] MEDS: hydrALAZINE HCL 50 MG TAB PO SCH ×3 (09:18→22:38)
[2023-05-20] MEDS: PANTOPRAZOLE 40 MG TABLET PO SCH (09:18)
[2023-05-20] MEDS: FOLIC ACID 1 MG TAB PO SCH (09:18)
[2023-05-20] MEDS: ASPIRIN 81 MG PO SCH (09:18)
[2023-05-20] MEDS: APIXABAN 5 MG TAB PO SCH ×2 (09:18→20:31)
[2023-05-20] MEDS: METOPROLOL SUCCINATE (ER) 50 MG TAB.ER.24H PO SCH (09:18)
[2023-05-20] MEDS: ISOSORBIDE MONONITRATE ER 30 MG TAB.ER.24H PO SCH (09:20)
[2023-05-20 09:48] LABS: African American GFR (CKD) 20 (>60 ml/min/1.73 sqM); Blood Urea Nitrogen 85 mg/dL (7-17); Calcium 8.8 mg/dL (8.4-10.2); Carbon Dioxide 38 mmol/L (22-30); Glucose 116 mg/dL (74-99); Non-African American GFR(CKD) 17 (>60 ml/min/1.73 sqM)
[2023-05-20 10:04] LABS: Anion Gap 7 mmol/L; Chloride 95 mmol/L (98-107); Potassium 3.8 mmol/L (3.5-5.1); Sodium 140 mmol/L (137-145)
--- NOTE | 2023-05-20 12:58 | P.PN ---
Subjective HISTORY OF PRESENT ILLNESS: This is a 48-year-old -[place] female patient with morbid obesity and sleep apnea and heart failure with preserved ejection fraction as well as chronic kidney disease and hypertension and dyslipidemia and paroxysmal atrial fibrillation. She was admitted to the hospital with shortness of breath and she was diagnosed with heart failure exacerbation. May [id number] The patient was seen and evaluated this morning. She continues to be in volume overload. She has been diuresing well on the current dose of Lasix IV. Creatinine has been stable as of yesterday we don't have a blood work as of this morning. If the creatinine remains stable I would continue the patient on the current dose of Lasix IV and continue monitor the kidney function and electrolytes. The examination is remarkable for stable vital signs with bilateral lower extremity edema May 192022 The patient was seen this morning. She seems to be stable side being on oxygen which has not changed compared to before. She continues to diurese well. She continues to be on Lasix IV. The creatinine remains stable. No blood work as of this morning and will follow-up with a blood work this morning. Meanwhile continue the current medical regimen including current dose of Lasix IV and continue monitor her kidney function and electrolytes. The examination is remarkable for bilateral lower extremity edema which has definitely improved compared to before. 05/20/2023 Patient examined this morning at the bedside. Patient denies chest pain or pressure. She reports mild shortness of breath. She remains on IV Lasix. Creatinine 3.01. Echocardiogram completed revealing ejection fraction 50-55%. PHYSICAL EXAM: VITAL SIGNS: Reviewed. GENERAL: Well-developed in no acute distress. NECK: Supple. No JVD or thyromegaly LUNGS: Respirations even and unlabored. Lungs essentially clear to auscultation bilaterally. HEART: Regular rate and rhythm. S1 and S2 heard. EXTREMITIES: Normal range of motion. No clubbing or cyanosis. Peripheral pulses intact. Trace bilateral lower extremity edema ASSESSMENT: Acute exacerbation of heart failure with preserved ejection fraction Paroxysmal atrial fibrillation Hypertension Hyperlipidemia Chronic kidney disease Obesity PLAN: Continue current cardiac medications Continue IV Lasix 40 mg every 12 hours Accurate I&O, daily weights, and monitoring of kidney function Add Imdur 30 mg daily Further recommendations pending patient's course Nurse practitioner note has been reviewed by physician. Signing provider agrees with the documented findings, assessment, and plan of care. Objective - Vital Signs Vital signs: Vital Signs Temp 98.2 F 05/20/23 08:00 Pulse 70 05/20/23 08:00 Resp 18 05/20/23 08:00 BP 131/74 05/20/23 08:00 Pulse Ox 98 05/20/23 09:44 FiO2 40 05/20/23 03:20 Intake & Output 05/19/23 05/20/23 05/20/23 18:59 06:59 18:59 Intake Total 570 180 Output Total 1999 1300 2 Balance -1430 -1300 178 Weight 217.498 kg Intake: Oral 570 180 Output: Urine 1999 1300 Stool 2 Other: Voiding Method External Catheter External Catheter External Catheter - Labs CBC & Chem 7: 05/18/23 08:46 05/20/23 08:26 Labs: Abnormal Lab Results - Last 24 Hours (Table) 05/19/23 05/20/23 Range/Units 12:52 08:26 Chloride 96 L 95 L (98-107) mmol/L Carbon Dioxide 36 H 38 H (22-30) mmol/L BUN 87 H 85 H (7-17) mg/dL Creatinine 3.08 H 3.01 H (0.52-1.04) mg/dL Glucose 121 H 116 H (74-99) mg/dL
--- NOTE | 2023-05-20 15:47 | P.PN ---
Subjective Progress Note Date: 05/20/23 I am seeing this patient in new consultation today 05/14/2023 on the cardiac stepdown unit for acute diastolic CHF exacerbation and mild hypoxemic and hypercapnic respiratory failure. Patient is a 48-year-old -[place] female with past medical history significant for CHF, hypertension, morbid ob esity, obstructive sleep apnea without CPAP because it is broken, chronic oxygen dependence with 3 L/m nasal cannula mostly at night, previous ventilator dependent respiratory failure, hypertension, chronic kidney disease stage IV, left upper extremity lymphedema, anemia, and frequent urinary tract infections. Patient has frequent hospital admissions for congestive heart failure, and was last seen back in February,. Patient presented in the emergency room back on 05/09/2023 with complaints of increasing shortness of breath and lower extremity swelling for approximately 24 hours prior to arrival. She denies any fever, chills, myalgias, cough, hemoptysis. She denies any chest pain, heart palpitations. She was severely hypertensive on arrival to emergency room, which her blood pressure has now improved, and is now normotensive. Chest x-ray on admission appeared consistent with pulmonary edema. Echocardiogram showed severely increased left ventricular wall thickness with a preserved ejection fraction of 50-55%, and was otherwise a limited exam. Patient was aggressively diuresed with IV Lasix for several days. We were not consulted until late last night when the patient started to experience shortness of breath accompanied with acute confusion and was reportedly talking to herself. ABGs were consistent with mild hypercapnic respiratory failure showing a pCO2 of 63 and pH of 7.3 to, pO2 was 72 on 4 L/m nasal cannula. On my evaluation, the patient is sitting up in bed, with a somewhat delayed response to questioning, otherwise in no acute distress. She is fully oriented. She will be placed on BiPAP with settings 14/5 and FiO2 of 40% to be titrated accordingly. CBC on arrival was fairly unremarkable. There was some mild anemia of chronic disease. Most recent BMP shows a component of acute on chronic kidney disease. Sodium was 140, potassium 4.4, chloride 101, serum bicarbonate 32, BUN 78, creatinine 3.46, glucose 106. Troponins were elevated and are modestly trending up at 0.036, 0.04, 0.055. Patient denies any chest pain, she does state that she has some mild chest tightness. EKG on admission showed sinus tachycardia without any obvious acute ischemic changes. Patient will be monitored on the cardiac stepdown unit. Progress note dated 05/15/2023. 48-year-old female well-known to our service. She has a history of diastolic CHF, and, we were consulted for abnormal blood gases, which showed evidence of hypercapnic respiratory failure. The patient also has a history of hypertension, morbid obesity, sleep apnea, and chronic hypoxemic respiratory failure. She is seen today in room 363. She remains on BiPAP with settings of 14/5 and 40%. She's not receiving any IV fluids. I've asked the nurses to have respiratory take her off BiPAP, and place her on nasal O2, and shoot for saturations are between 88% and 92%. Sodium 143, potassium 4, chlorides 101, CO2 32, BUN 92, and creatinine 3.42. Progress note dated 05/16/2023. 48-year-old black female, well-known to our service. She seen again today in room 363. The patient uses BiPAP at nighttime, with settings of 14/5, and 40%. During the daytime, she uses nasal O2 at 4 L. Currently, the patient appears to be relatively stable. No new lab data today. Lab data from May 15 has been reviewed. Progress note dated 05/17/2023. 48-year-old black female, seen today in room 363. She is currently not on any IV fluids. She goes back and forth between oxygen by nasal cannula at 4 L, and BiPAP, with settings of 14/5 and 40%. She apparently didn't use BiPAP overnight, according to the nurse. White count is 5.6, hemoglobin 10, hematocrit 35.8, with a platelet count of 179,000. Sodium 139, potassium 4, chlorides 99, CO2 33, BUN 96, creatinine 3.37. Progress note dated 05/18/2023. 48-year-old black female, seen in room 363. The patient's currently not receiving any IV fluids. The patient's currently on BiPAP, with settings of 14/5, and 40%. When not on BiPAP, the patient's on nasal O2 at 4 L. She appears more comfortable. White count 4.9, hemoglobin 9.8, hematocrit 33.9, with a normal platelet count. Sodium 138, potassium 3.9, chlorides 99, CO2 36, BUN 93, and creatinine 3.03. No recent chest x-ray. Progress note dated 05/19/2023. 48-year-old black female seen in room 363. Currently, she is on 4 L by nasal cannula. She use BiPAP last night, with her usual settings, a 14/5, and 40%. I asked her to try to use BiPAP at nighttime, and nasal oxygen during the daytime if possible. No new labs today. Labs from yesterday have been reviewed. No recent chest x-ray. On today's evaluation of 05/20/2023, I'm seeing the patient for a follow-up. The patient is stable for now. The patient remains on Lasix 40 mg IV every 12 hours. No symmetry respiratory distress. She has a BiPAP machine at the bedside and she is using mainly overnight. No chest pain. No shortness of breath. No dizziness. Lower extremity edema is improved. Blood work from [facility] shows a BUN of 85 and a creatinine of 3.01 sodiums of 140 with a potassium level of 3.8 and a chloride of 95 with a bicarb of 38. The patient remains on long-term and cognition without liquids 5 mg by mouth twice a day. This is being given to her regarding her chronic atrial fibrillation. She is also on a combination of metoprolol 150 mg XL 1 tablet a day and amiodarone 200 mg by mouth daily for rate control. No other significant issues for now. She is stable and she is on 3 L of oxygen by nasal cannula with a pulse ox of 99%. Breathing is nonlabored. Objective - Vital Signs Vital signs: Vital Signs Temp 98.4 F 05/20/23 00:00 Pulse 65 05/20/23 04:00 Resp 20 05/20/23 04:00 BP 116/60 05/20/23 04:00 Pulse Ox 98 05/20/23 09:44 FiO2 40 05/20/23 03:20 Intake & Output 05/19/23 05/20/23 05/20/23 18:59 06:59 18:59 Intake Total 570 180 Output Total 1999 1300 Balance -1430 -1300 180 Weight 217.498 kg Intake: Oral 570 180 Output: Urine 1999 1300 Other: Voiding Method External Catheter External Catheter - Exam No acute distress, awake and alert, currently on 4 L, nasal cannula. She is a morbidly obese female patient with a body mass index of 75.1. Head exam was generally normal. There was no scleral icterus or corneal arcus. Mucous membranes were moist. HEENT examination is grossly unremarkable. Neck supple. Full range of motion. No adenopathy thyromegaly or neck vein distention. Cardiovascular examination reveals irregular rhythm rate. S1-S2 normal. No S3 or S4. No discernible murmur noted. Lungs reveal scattered rhonchi and crackles. Breath sounds are equal bilaterally. No wheezes. Abdomen soft bowel sounds are heard. No masses or tenderness. Extremities are intact. No cyanosis or clubbing. Trace edema noted. Skin is without rash or lesion. Neurologic examination is difficult to evaluate. - Labs CBC & Chem 7: 05/18/23 08:46 05/20/23 08:26 Labs: Abnormal Lab Results - Last 24 Hours (Table) 05/19/23 05/20/23 Range/Units 12:52 08:26 Chloride 96 L 95 L (98-107) mmol/L Carbon Dioxide 36 H 38 H (22-30) mmol/L BUN 87 H 85 H (7-17) mg/dL Creatinine 3.08 H 3.01 H (0.52-1.04) mg/dL Glucose 121 H 116 H (74-99) mg/dL Assessment and Plan Plan: Acute on chronic hypoxemic and hypercapnic respiratory failure related to an exacerbation of diastolic congestive heart failure. Chest x-ray on admission appeared consistent with pulmonary edema. Most recent repeat echocardiogram shows a severely increased left ventricular wall thickness, with a preserved ejection fraction of 50-55%, and was otherwise a limited exam. The patient is stable on 3 L of oxygen by nasal cannula with a pulse ox of 99%. She's been adequately diuresed for now. She is hemodynamically stable. Breathing is nonlabored. Improvement in volume status. Hypertensive emergency, improved. Elevated troponins, likely related to above. Acute on chronic kidney injury, creatinine is stable for now and the patient is underlying chronic kidney disease Obstructive sleep apnea, noncompliant with CPAP. Utilizes 3 L/m nasal cannula mostly at night. Severe morbid obesity with a BMI of 75 kg/m. History of ventilator dependent respiratory failure. Chronic kidney disease, stage IV. Anemia of chronic disease. Left upper extremity lymphedema. History of DVT. Plan: Continue Lasix for another 24 hours and cirrhosis patient oral Lasix as of tomorrow Occupation is improved and the patient is currently on 3 L of oxygen by nasal cannula Continue utilizing a BiPAP overnight Continue oral metoprolol and amiodarone Continue to cognition with Eliquis There are function is stable, and the patient has chronic kidney disease We'll continue to follow. Net Sql Developer on the case. Imdur was added for blood pressure control.
[2023-05-20] MEDS: ACETAMINOPHEN TAB 325 MG TAB PO PRN (20:31)
--- NOTE | 2023-05-21 05:54 | PN ---
PROGRESS NOTE CHIEF COMPLAINT: Chronic congestive heart failure and cardiomyopathy. HISTORY OF PRESENT ILLNESS: This lady is just about the same and not really much better, but she is still very short of breath. Desk Editor are working on a discharge plan. She will be moved off telemetry to med/surg. PHYSICAL EXAMINATION: CHEST: Breath sounds are diminished due to her weight. CARDIAC: Normal. IMPRESSION: 1. Acute on chronic congestive heart failure. 2. Cardiomyopathy. 3. Obesity. 4. Pickwickian syndrome. PLAN: Continue with current management as well. Awaiting a long-term care facility for discharge. MMODL / IJN: [id number] /
[2023-05-21 08:55] LABS: Anisocytosis Slight; Basophils % (A) 0 %; Eosinophils # (A) 0.1 k/uL (0-0.7); Eosinophils % (A) 1 %; HCT 37.4 % (34.0-46.0); HGB 10.1 gm/dL (11.4-16.0); Hypochromasia Marked; Lymphocytes # (A) 0.5 k/uL (1.0-4.8); Lymphocytes % (A) 11 %; MCH 22.7 pg (25.0-35.0); MCHC 27.1 g/dL (31.0-37.0); MCV 83.8 fL (80.0-100.0); Monocytes # (A) 0.3 k/uL (0-1.0); Monocytes % (A) 6 %; Neutrophils % (A) 80 %; Platelet Count 140 k/uL (150-450); RBC 4.47 m/uL (3.80-5.40); RDW 18.6 % (11.5-15.5); WBC 4.9 k/uL (3.8-10.6)
[2023-05-21 09:07] LABS: African American GFR (CKD) 21 (>60 ml/min/1.73 sqM); Anion Gap 9 mmol/L; Blood Urea Nitrogen 81 mg/dL (7-17); Calcium 9.1 mg/dL (8.4-10.2); Carbon Dioxide 36 mmol/L (22-30); Chloride 95 mmol/L (98-107); Glucose 125 mg/dL (74-99); Non-African American GFR(CKD) 18 (>60 ml/min/1.73 sqM); Sodium 140 mmol/L (137-145)
[2023-05-21] MEDS: hydrALAZINE HCL 50 MG TAB PO SCH ×3 (09:48→20:46)
[2023-05-21] MEDS: MAGNESIUM OXIDE 400 MG TAB PO SCH (09:48)
[2023-05-21] MEDS: PANTOPRAZOLE 40 MG TABLET PO SCH (09:48)
[2023-05-21] MEDS: METOPROLOL SUCCINATE (ER) 50 MG TAB.ER.24H PO SCH (09:48)
[2023-05-21] MEDS: ISOSORBIDE MONONITRATE ER 30 MG TAB.ER.24H PO SCH (09:48)
[2023-05-21] MEDS: ASPIRIN 81 MG PO SCH (09:48)
[2023-05-21] MEDS: AMIODARONE 200 MG TAB PO SCH (09:48)
[2023-05-21] MEDS: FOLIC ACID 1 MG TAB PO SCH (09:48)
[2023-05-21] MEDS: APIXABAN 5 MG TAB PO SCH ×2 (09:48→20:46)
[2023-05-21] MEDS: FUROSEMIDE 10 MG/ML 4 ML VIAL IV SCH (09:48)
--- NOTE | 2023-05-21 11:58 | P.PN ---
Subjective Progress Note Date: 05/21/23 I am seeing this patient in new consultation today 05/14/2023 on the cardiac stepdown unit for acute diastolic CHF exacerbation and mild hypoxemic and hypercapnic respiratory failure. Patient is a 48-year-old -[place] female with past medical history significant for CHF, hypertension, morbid ob esity, obstructive sleep apnea without CPAP because it is broken, chronic oxygen dependence with 3 L/m nasal cannula mostly at night, previous ventilator dependent respiratory failure, hypertension, chronic kidney disease stage IV, left upper extremity lymphedema, anemia, and frequent urinary tract infections. Patient has frequent hospital admissions for congestive heart failure, and was last seen back in February,. Patient presented in the emergency room back on 05/09/2023 with complaints of increasing shortness of breath and lower extremity swelling for approximately 24 hours prior to arrival. She denies any fever, chills, myalgias, cough, hemoptysis. She denies any chest pain, heart palpitations. She was severely hypertensive on arrival to emergency room, which her blood pressure has now improved, and is now normotensive. Chest x-ray on admission appeared consistent with pulmonary edema. Echocardiogram showed severely increased left ventricular wall thickness with a preserved ejection fraction of 50-55%, and was otherwise a limited exam. Patient was aggressively diuresed with IV Lasix for several days. We were not consulted until late last night when the patient started to experience shortness of breath accompanied with acute confusion and was reportedly talking to herself. ABGs were consistent with mild hypercapnic respiratory failure showing a pCO2 of 63 and pH of 7.3 to, pO2 was 72 on 4 L/m nasal cannula. On my evaluation, the patient is sitting up in bed, with a somewhat delayed response to questioning, otherwise in no acute distress. She is fully oriented. She will be placed on BiPAP with settings 14/5 and FiO2 of 40% to be titrated accordingly. CBC on arrival was fairly unremarkable. There was some mild anemia of chronic disease. Most recent BMP shows a component of acute on chronic kidney disease. Sodium was 140, potassium 4.4, chloride 101, serum bicarbonate 32, BUN 78, creatinine 3.46, glucose 106. Troponins were elevated and are modestly trending up at 0.036, 0.04, 0.055. Patient denies any chest pain, she does state that she has some mild chest tightness. EKG on admission showed sinus tachycardia without any obvious acute ischemic changes. Patient will be monitored on the cardiac stepdown unit. Progress note dated 05/15/2023. 48-year-old female well-known to our service. She has a history of diastolic CHF, and, we were consulted for abnormal blood gases, which showed evidence of hypercapnic respiratory failure. The patient also has a history of hypertension, morbid obesity, sleep apnea, and chronic hypoxemic respiratory failure. She is seen today in room 363. She remains on BiPAP with settings of 14/5 and 40%. She's not receiving any IV fluids. I've asked the nurses to have respiratory take her off BiPAP, and place her on nasal O2, and shoot for saturations are between 88% and 92%. Sodium 143, potassium 4, chlorides 101, CO2 32, BUN 92, and creatinine 3.42. Progress note dated 05/16/2023. 48-year-old black female, well-known to our service. She seen again today in room 363. The patient uses BiPAP at nighttime, with settings of 14/5, and 40%. During the daytime, she uses nasal O2 at 4 L. Currently, the patient appears to be relatively stable. No new lab data today. Lab data from May 15 has been reviewed. Progress note dated 05/17/2023. 48-year-old black female, seen today in room 363. She is currently not on any IV fluids. She goes back and forth between oxygen by nasal cannula at 4 L, and BiPAP, with settings of 14/5 and 40%. She apparently didn't use BiPAP overnight, according to the nurse. White count is 5.6, hemoglobin 10, hematocrit 35.8, with a platelet count of 179,000. Sodium 139, potassium 4, chlorides 99, CO2 33, BUN 96, creatinine 3.37. Progress note dated 05/18/2023. 48-year-old black female, seen in room 363. The patient's currently not receiving any IV fluids. The patient's currently on BiPAP, with settings of 14/5, and 40%. When not on BiPAP, the patient's on nasal O2 at 4 L. She appears more comfortable. White count 4.9, hemoglobin 9.8, hematocrit 33.9, with a normal platelet count. Sodium 138, potassium 3.9, chlorides 99, CO2 36, BUN 93, and creatinine 3.03. No recent chest x-ray. Progress note dated 05/19/2023. 48-year-old black female seen in room 363. Currently, she is on 4 L by nasal cannula. She use BiPAP last night, with her usual settings, a 14/5, and 40%. I asked her to try to use BiPAP at nighttime, and nasal oxygen during the daytime if possible. No new labs today. Labs from yesterday have been reviewed. No recent chest x-ray. On today's evaluation of 05/20/2023, I'm seeing the patient for a follow-up. The patient is stable for now. The patient remains on Lasix 40 mg IV every 12 hours. No symmetry respiratory distress. She has a BiPAP machine at the bedside and she is using mainly overnight. No chest pain. No shortness of breath. No dizziness. Lower extremity edema is improved. Blood work from [facility] shows a BUN of 85 and a creatinine of 3.01 sodiums of 140 with a potassium level of 3.8 and a chloride of 95 with a bicarb of 38. The patient remains on long-term and cognition without liquids 5 mg by mouth twice a day. This is being given to her regarding her chronic atrial fibrillation. She is also on a combination of metoprolol 150 mg XL 1 tablet a day and amiodarone 200 mg by mouth daily for rate control. No other significant issues for now. She is stable and she is on 3 L of oxygen by nasal cannula with a pulse ox of 99%. Breathing is nonlabored. On today's evaluation of 05/21/2023, the patient remains in a negative fluid balance as the patient is still being diabetes IV Lasix 40 mg every 12 hours. No new complaints. She remains on oxygen and she is on 3 L O2 nasal cannula with a pulse ox of 93%. She is using the BiPAP overnight. Sodiums of 140, BUN is 81 with a creatinine of 2.9 and a potassium level is at 4.0. The white cell count is at 4.9 with a hemoglobin of 10.1. Objective - Vital Signs Vital signs: Vital Signs Temp 97.5 F L 05/21/23 09:56 Pulse 65 05/21/23 09:56 Resp 18 05/21/23 09:56 BP 114/67 05/21/23 09:56 Pulse Ox 95 05/21/23 09:56 FiO2 40 05/21/23 03:46 Intake & Output 05/20/23 05/21/23 05/21/23 18:59 06:59 18:59 Intake Total 540 700 370 Output Total 1404 650 Balance -864 50 370 Weight 217 kg Intake: IV 10 Invasive Line 2 10 Oral 540 700 360 Output: Urine 1400 650 Stool 4 Other: Voiding Method External Catheter External Catheter External Catheter - Exam No acute distress, awake and alert, currently on 4 L, nasal cannula. She is a morbidly obese female patient with a body mass index of 75.1. Head exam was generally normal. There was no scleral icterus or corneal arcus. Mucous membranes were moist. HEENT examination is grossly unremarkable. Neck supple. Full range of motion. No adenopathy thyromegaly or neck vein distention. Cardiovascular examination reveals irregular rhythm rate. S1-S2 normal. No S3 or S4. No discernible murmur noted. Lungs reveal scattered rhonchi and crackles. Breath sounds are equal bilaterally. No wheezes. Abdomen soft bowel sounds are heard. No masses or tenderness. Extremities are intact. No cyanosis or clubbing. Trace edema noted. Skin is without rash or lesion. Neurologic examination is difficult to evaluate. - Labs CBC & Chem 7: 05/21/23 07:48 05/21/23 07:48 Labs: Abnormal Lab Results - Last 24 Hours (Table) 05/21/23 05/21/23 Range/Units 07:48 07:48 Hgb 10.1 L (11.4-16.0) gm/dL MCH 22.7 L (25.0-35.0) pg MCHC 27.1 L (31.0-37.0) g/dL RDW 18.6 H (11.5-15.5) % Plt Count 140 L (150-450) k/uL Lymphocytes # 0.5 L (1.0-4.8) k/uL Chloride 95 L (98-107) mmol/L Carbon Dioxide 36 H (22-30) mmol/L BUN 81 H (7-17) mg/dL Creatinine 2.96 H (0.52-1.04) mg/dL Glucose 125 H (74-99) mg/dL Assessment and Plan Plan: Acute on chronic hypoxemic and hypercapnic respiratory failure related to an exacerbation of diastolic congestive heart failure. Chest x-ray on admission appeared consistent with pulmonary edema. Most recent repeat echocardiogram shows a severely increased left ventricular wall thickness, with a preserved ejection fraction of 50-55%, and was otherwise a limited exam. The patient is stable on 3 L of oxygen by nasal cannula with a pulse ox of 99%. She's been adequately diuresed for now. She is hemodynamically stable. Breathing is nonlabored. Improvement in volume status. Patient is still on Lasix 40 mg IV every 12 hours. The patient is in a negative fluid balance. Creatinine is stable, improved compared to yesterday. Hypertensive emergency, improved. Elevated troponins, likely related to above. Acute on chronic kidney injury, creatinine is stable for now and the patient is underlying chronic kidney disease Obstructive sleep apnea, noncompliant with CPAP. Utilizes 3 L/m nasal cannula mostly at night. Severe morbid obesity with a BMI of 75 kg/m. History of ventilator dependent respiratory failure. Chronic kidney disease, stage IV. Anemia of chronic disease. Left upper extremity lymphedema. History of DVT. Plan: Management of the same Continue Lasix and switch this patient to oral Lasix 40 mg twice a day Occupation is improved and the patient is currently on 3 L of oxygen by nasal cannula Continue utilizing a BiPAP overnight Continue oral metoprolol and amiodarone Continue to cognition with Eliquis There are function is stable, and the patient has chronic kidney disease We'll continue to follow. Aws Architect on the case. Imdur was added for blood pressure control. Discharge planning is in progress. Overall condition is stable. Renal function continues to improve
[2023-05-21 13:00] VITALS: BMI 74.9
--- NOTE | 2023-05-21 16:17 | P.PN ---
Subjective Progress Note Date: 05/21/23 HISTORY OF PRESENT ILLNESS: This is a 48-year-old -[place] Citizen female patient with morbid obesity and sleep apnea and heart failure with preserved ejection fraction as well as c hronic kidney disease and hypertension and dyslipidemia and paroxysmal atrial fibrillation. She was admitted to the hospital with shortness of breath and she was diagnosed with heart failure exacerbation. May 182022 The patient was seen and evaluated this morning. She continues to be in volume overload. She has been diuresing well on the current dose of Lasix IV. Creatinine has been stable as of yesterday we don't have a blood work as of this morning. If the creatinine remains stable I would continue the patient on the current dose of Lasix IV and continue monitor the kidney function and electrolytes. The examination is remarkable for stable vital signs with bilateral lower extremity edema May 192022 The patient was seen this morning. She seems to be stable side being on oxygen which has not changed compared to before. She continues to diurese well. She continues to be on Lasix IV. The creatinine remains stable. No blood work as of this morning and will follow-up with a blood work this morning. Meanwhile continue the current medical regimen including current dose of Lasix IV and continue monitor her kidney function and electrolytes. The examination is remarkable for bilateral lower extremity edema which has definitely improved compared to before. 05/20/2023 Patient examined this morning at the bedside. Patient denies chest pain or pressure. She reports mild shortness of breath. She remains on IV Lasix. Creatinine 3.01. Echocardiogram completed revealing ejection fraction 50-55%. 05/21/2023 Patient is hemodynamic is stable, blood pressure 148/82, pulse 70, creatinine 2.96. Creatinine has somewhat stabilized. Patient tolerated the addition of Imdur and hydralazine. Patient does not report significant changes in her symptomatology. PHYSICAL EXAM: VITAL SIGNS: Reviewed. GENERAL: Well-developed in no acute distress. NECK: Supple. No JVD or thyromegaly LUNGS: Respirations even and unlabored. Lungs essentially clear to auscultation bilaterally. HEART: Regular rate and rhythm. S1 and S2 heard. EXTREMITIES: Normal range of motion. No clubbing or cyanosis. Peripheral pulses intact. Trace bilateral lower extremity edema ASSESSMENT: Acute exacerbation of heart failure with preserved ejection fraction Paroxysmal atrial fibrillation Hypertension Hyperlipidemia Chronic kidney disease Obesity PLAN: Continue current cardiac medications Continue IV Lasix 40 mg every 12 hours Accurate I&O, daily weights, and monitoring of kidney function Continue and hydralazine. Continue amiodarone Objective - Vital Signs Vital signs: Vital Signs Temp 97.5 F L 05/21/23 09:56 Pulse 70 05/21/23 11:37 Resp 18 05/21/23 11:37 BP 149/87 05/21/23 11:37 Pulse Ox 93 L 05/21/23 11:37 FiO2 40 05/21/23 03:46 Intake & Output 05/20/23 05/21/23 05/21/23 18:59 06:59 18:59 Intake Total 540 700 870 Output Total 1404 650 Balance -864 50 870 Weight 217 kg 217 kg Intake: IV 10 Invasive Line 2 10 Oral 540 700 860 Output: Urine 1400 650 Stool 4 Other: Voiding Method External Catheter External Catheter External Catheter - Labs CBC & Chem 7: 05/21/23 07:48 05/21/23 07:48 Labs: Abnormal Lab Results - Last 24 Hours (Table) 05/21/23 05/21/23 Range/Units 07:48 07:48 Hgb 10.1 L (11.4-16.0) gm/dL MCH 22.7 L (25.0-35.0) pg MCHC 27.1 L (31.0-37.0) g/dL RDW 18.6 H (11.5-15.5) % Plt Count 140 L (150-450) k/uL Lymphocytes # 0.5 L (1.0-4.8) k/uL Chloride 95 L (98-107) mmol/L Carbon Dioxide 36 H (22-30) mmol/L BUN 81 H (7-17) mg/dL Creatinine 2.96 H (0.52-1.04) mg/dL Glucose 125 H (74-99) mg/dL
[2023-05-21] MEDS: FUROSEMIDE 40 MG TAB PO SCH (17:27)
[2023-05-21] MEDS: ACETAMINOPHEN TAB 325 MG TAB PO PRN (20:45)
[2023-05-22] MEDS: PANTOPRAZOLE 40 MG TABLET PO SCH (09:51)
[2023-05-22] MEDS: METOPROLOL SUCCINATE (ER) 50 MG TAB.ER.24H PO SCH (09:51)
[2023-05-22] MEDS: ISOSORBIDE MONONITRATE ER 30 MG TAB.ER.24H PO SCH (09:52)
[2023-05-22] MEDS: MAGNESIUM OXIDE 400 MG TAB PO SCH (09:52)
[2023-05-22] MEDS: FUROSEMIDE 40 MG TAB PO SCH ×2 (09:52→15:37)
[2023-05-22] MEDS: FOLIC ACID 1 MG TAB PO SCH (09:52)
[2023-05-22] MEDS: APIXABAN 5 MG TAB PO SCH ×2 (09:52→21:00)
[2023-05-22] MEDS: AMIODARONE 200 MG TAB PO SCH (09:52)
[2023-05-22] MEDS: hydrALAZINE HCL 50 MG TAB PO SCH ×3 (09:54→21:00)
--- NOTE | 2023-05-22 17:59 | P.PN ---
Subjective Progress Note Date: 05/22/23 I am seeing this patient in new consultation today 05/14/2023 on the cardiac stepdown unit for acute diastolic CHF exacerbation and mild hypoxemic and hypercapnic respiratory failure. Patient is a 48-year-old -[place] female with past medical history significant for CHF, hypertension, morbid ob esity, obstructive sleep apnea without CPAP because it is broken, chronic oxygen dependence with 3 L/m nasal cannula mostly at night, previous ventilator dependent respiratory failure, hypertension, chronic kidney disease stage IV, left upper extremity lymphedema, anemia, and frequent urinary tract infections. Patient has frequent hospital admissions for congestive heart failure, and was last seen back in February,. Patient presented in the emergency room back on 05/09/2023 with complaints of increasing shortness of breath and lower extremity swelling for approximately 24 hours prior to arrival. She denies any fever, chills, myalgias, cough, hemoptysis. She denies any chest pain, heart palpitations. She was severely hypertensive on arrival to emergency room, which her blood pressure has now improved, and is now normotensive. Chest x-ray on admission appeared consistent with pulmonary edema. Echocardiogram showed severely increased left ventricular wall thickness with a preserved ejection fraction of 50-55%, and was otherwise a limited exam. Patient was aggressively diuresed with IV Lasix for several days. We were not consulted until late last night when the patient started to experience shortness of breath accompanied with acute confusion and was reportedly talking to herself. ABGs were consistent with mild hypercapnic respiratory failure showing a pCO2 of 63 and pH of 7.3 to, pO2 was 72 on 4 L/m nasal cannula. On my evaluation, the patient is sitting up in bed, with a somewhat delayed response to questioning, otherwise in no acute distress. She is fully oriented. She will be placed on BiPAP with settings 14/5 and FiO2 of 40% to be titrated accordingly. CBC on arrival was fairly unremarkable. There was some mild anemia of chronic disease. Most recent BMP shows a component of acute on chronic kidney disease. Sodium was 140, potassium 4.4, chloride 101, serum bicarbonate 32, BUN 78, creatinine 3.46, glucose 106. Troponins were elevated and are modestly trending up at 0.036, 0.04, 0.055. Patient denies any chest pain, she does state that she has some mild chest tightness. EKG on admission showed sinus tachycardia without any obvious acute ischemic changes. Patient will be monitored on the cardiac stepdown unit. Progress note dated 05/15/2023. 48-year-old female well-known to our service. She has a history of diastolic CHF, and, we were consulted for abnormal blood gases, which showed evidence of hypercapnic respiratory failure. The patient also has a history of hypertension, morbid obesity, sleep apnea, and chronic hypoxemic respiratory failure. She is seen today in room 363. She remains on BiPAP with settings of 14/5 and 40%. She's not receiving any IV fluids. I've asked the nurses to have respiratory take her off BiPAP, and place her on nasal O2, and shoot for saturations are between 88% and 92%. Sodium 143, potassium 4, chlorides 101, CO2 32, BUN 92, and creatinine 3.42. Progress note dated 05/16/2023. 48-year-old black female, well-known to our service. She seen again today in room 363. The patient uses BiPAP at nighttime, with settings of 14/5, and 40%. During the daytime, she uses nasal O2 at 4 L. Currently, the patient appears to be relatively stable. No new lab data today. Lab data from May 15 has been reviewed. Progress note dated 05/17/2023. 48-year-old black female, seen today in room 363. She is currently not on any IV fluids. She goes back and forth between oxygen by nasal cannula at 4 L, and BiPAP, with settings of 14/5 and 40%. She apparently didn't use BiPAP overnight, according to the nurse. White count is 5.6, hemoglobin 10, hematocrit 35.8, with a platelet count of 179,000. Sodium 139, potassium 4, chlorides 99, CO2 33, BUN 96, creatinine 3.37. Progress note dated 05/18/2023. 48-year-old black female, seen in room 363. The patient's currently not receiving any IV fluids. The patient's currently on BiPAP, with settings of 14/5, and 40%. When not on BiPAP, the patient's on nasal O2 at 4 L. She appears more comfortable. White count 4.9, hemoglobin 9.8, hematocrit 33.9, with a normal platelet count. Sodium 138, potassium 3.9, chlorides 99, CO2 36, BUN 93, and creatinine 3.03. No recent chest x-ray. Progress note dated 05/19/2023. 48-year-old black female seen in room 363. Currently, she is on 4 L by nasal cannula. She use BiPAP last night, with her usual settings, a 14/5, and 40%. I asked her to try to use BiPAP at nighttime, and nasal oxygen during the daytime if possible. No new labs today. Labs from yesterday have been reviewed. No recent chest x-ray. On today's evaluation of 05/20/2023, I'm seeing the patient for a follow-up. The patient is stable for now. The patient remains on Lasix 40 mg IV every 12 hours. No symmetry respiratory distress. She has a BiPAP machine at the bedside and she is using mainly overnight. No chest pain. No shortness of breath. No dizziness. Lower extremity edema is improved. Blood work from [facility] shows a BUN of 85 and a creatinine of 3.01 sodiums of 140 with a potassium level of 3.8 and a chloride of 95 with a bicarb of 38. The patient remains on long-term and cognition without liquids 5 mg by mouth twice a day. This is being given to her regarding her chronic atrial fibrillation. She is also on a combination of metoprolol 150 mg XL 1 tablet a day and amiodarone 200 mg by mouth daily for rate control. No other significant issues for now. She is stable and she is on 3 L of oxygen by nasal cannula with a pulse ox of 99%. Breathing is nonlabored. On today's evaluation of 05/21/2023, the patient remains in a negative fluid balance as the patient is still being diabetes IV Lasix 40 mg every 12 hours. No new complaints. She remains on oxygen and she is on 3 L O2 nasal cannula with a pulse ox of 93%. She is using the BiPAP overnight. Sodiums of 140, BUN is 81 with a creatinine of 2.9 and a potassium level is at 4.0. The white cell count is at 4.9 with a hemoglobin of 10.1. On 05/22/2023, the patient is resting comfortably in bed. No new complaints. Awaiting arrangements for home discharge. The patient is a need for equipment for mobility as the patient is morbidly obese and she has difficulties and mobility during day-to-day activities. No shortness of breath. No new labs from today. Creatinine from yesterday was stable. The patient is currently on oral Lasix. Objective - Vital Signs Vital signs: Vital Signs Temp 97.7 F 05/22/23 07:08 Pulse 62 05/22/23 07:08 Resp 18 05/22/23 07:08 BP 156/99 05/22/23 07:08 Pulse Ox 95 05/22/23 09:07 FiO2 40 05/22/23 04:56 Intake & Output 05/21/23 05/22/23 05/22/23 18:59 06:59 18:59 Intake Total 1230 10 Output Total 300 Balance 1230 -290 Weight 217 kg 206.98 kg Intake: IV 10 10 Invasive Line 2 10 10 Oral 1220 Output: Urine 300 Other: Voiding Method External Catheter External Catheter External Catheter # Voids 1 1 # Bowel Movements 1 - Exam No acute distress, awake and alert, currently on 4 L, nasal cannula. She is a morbidly obese female patient with a body mass index of 75.1. Head exam was generally normal. There was no scleral icterus or corneal arcus. Mucous membranes were moist. HEENT examination is grossly unremarkable. Neck supple. Full range of motion. No adenopathy thyromegaly or neck vein distention. Cardiovascular examination reveals irregular rhythm rate. S1-S2 normal. No S3 or S4. No discernible murmur noted. Lungs reveal scattered rhonchi and crackles. Breath sounds are equal bilaterally. No wheezes. Abdomen soft bowel sounds are heard. No masses or tenderness. Extremities are intact. No cyanosis or clubbing. Trace edema noted. Skin is without rash or lesion. Neurologic examination is difficult to evaluate. - Labs CBC & Chem 7: 05/21/23 07:48 05/21/23 07:48 Assessment and Plan Plan: Acute on chronic hypoxemic and hypercapnic respiratory failure related to an exacerbation of diastolic congestive heart failure. Chest x-ray on admission appeared consistent with pulmonary edema. Most recent repeat echocardiogram show s a severely increased left ventricular wall thickness, with a preserved ejection fraction of 50-55%, and was otherwise a limited exam. The patient is stable on 3 L of oxygen by nasal cannula with a pulse ox of 99%. She's been adequately diuresed for now. She is hemodynamically stable. Breathing is nonlabored. Improvement in volume status. Patient is still on Lasix 40 mg IV every 12 hours. The patient is in a negative fluid balance. Creatinine is stable, improved compared to yesterday. Hypertensive emergency, improved. Elevated troponins, likely related to above. Acute on chronic kidney injury, creatinine is stable for now and the patient is underlying chronic kidney disease Obstructive sleep apnea, noncompliant with CPAP. Utilizes 3 L/m nasal cannula mostly at night. Severe morbid obesity with a BMI of 75 kg/m. History of ventilator dependent respiratory failure. Chronic kidney disease, stage IV. Anemia of chronic disease. Left upper extremity lymphedema. History of DVT. 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 Agent Licensing Clerk on the case. Imdur was added for blood pressure control. Discharge planning is in progress. Overall condition is stable. Renal function continues to improve
--- NOTE | 2023-05-22 20:32 | PN ---
PROGRESS NOTE DATE OF SERVICE: 05/21/2023 CHIEF COMPLAINT: Chronic congestive heart failure. HISTORY OF PRESENT ILLNESS: This lady is stable. We are awaiting a discharge plan. She now thinks she is going home with her sister. PHYSICAL EXAMINATION: CHEST: Breath sounds are difficult to hear, but they are clear. CARDIAC: Unchanged. ABDOMEN: Soft and protuberant. IMPRESSION: 1. [id number] congestive heart failure. 2. Cardiomyopathy. 3. Pickwickian syndrome. PLAN: Await discharge plan. MMODL / IJN: [id number] /
--- NOTE | 2023-05-22 20:56 | PN ---
PROGRESS NOTE CHIEF COMPLAINT: Acute on chronic congestive heart failure. HISTORY OF PRESENT ILLNESS: This lady's condition is same. She is still short of breath even at bedrest. We are working on a discharge plan. She is still in atrial fibrillation and GFR is 21. PHYSICAL EXAMINATION: GENERAL: She is awake and alert. CHEST: Breath sounds are heard, but they are difficult to detect. CARDIAC: Demonstrates atrial fibrillation. ABDOMEN: Soft. EXTREMITIES: Unchanged. IMPRESSION: 1. Acute on chronic congestive heart failure. 2. Cardiomyopathy. 3. Atrial fibrillation. 4. Chronic kidney disease. PLAN: Continue to treat until discharge plan is established. MMODL / IJN: [id number] /
[2023-05-23] MEDS: hydrALAZINE HCL 50 MG TAB PO SCH ×3 (09:35→23:00)
[2023-05-23] MEDS: AMIODARONE 200 MG TAB PO SCH (09:36)
[2023-05-23] MEDS: FUROSEMIDE 40 MG TAB PO SCH ×2 (09:36→15:57)
[2023-05-23] MEDS: ISOSORBIDE MONONITRATE ER 30 MG TAB.ER.24H PO SCH (09:36)
[2023-05-23] MEDS: METOPROLOL SUCCINATE (ER) 50 MG TAB.ER.24H PO SCH (09:36)
[2023-05-23] MEDS: MAGNESIUM OXIDE 400 MG TAB PO SCH (09:36)
[2023-05-23] MEDS: APIXABAN 5 MG TAB PO SCH ×2 (09:36→20:18)
[2023-05-23] MEDS: FOLIC ACID 1 MG TAB PO SCH (09:36)
[2023-05-23] MEDS: PANTOPRAZOLE 40 MG TABLET PO SCH (09:36)
--- NOTE | 2023-05-24 00:50 | PN ---
PROGRESS NOTE CHIEF COMPLAINT: Acute on chronic congestive heart failure. HISTORY OF PRESENT ILLNESS: This lady's condition is unchanged. We are waiting for a discharge plan, which will either be extended care facility or to her sisters. IMPRESSION: 1. Chronic congestive heart failure with acute component. 2. Obesity. 3. Chronic kidney disease. PLAN: Await discharge plan. MORENO / BRADLEY: [id number] /
[2023-05-24 02:03] VITALS: RESP 20
[2023-05-24] MEDS: APIXABAN 5 MG TAB PO SCH (08:18)
[2023-05-24] MEDS: FUROSEMIDE 40 MG TAB PO SCH ×2 (08:18→16:56)
[2023-05-24] MEDS: METOPROLOL SUCCINATE (ER) 50 MG TAB.ER.24H PO SCH (08:18)
[2023-05-24] MEDS: AMIODARONE 200 MG TAB PO SCH (08:18)
[2023-05-24] MEDS: hydrALAZINE HCL 50 MG TAB PO SCH ×2 (08:18→16:56)
[2023-05-24] MEDS: FOLIC ACID 1 MG TAB PO SCH (08:18)
[2023-05-24] MEDS: ISOSORBIDE MONONITRATE ER 30 MG TAB.ER.24H PO SCH (08:18)
[2023-05-24] MEDS: PANTOPRAZOLE 40 MG TABLET PO SCH (08:18)
[2023-05-24] MEDS: MAGNESIUM OXIDE 400 MG TAB PO SCH (08:18)
[2023-05-24 13:01] VITALS: BP 120/74; PULSE 60; TEMP 98.9
--- NOTE | 2023-05-29 15:28 | DS ---
DISCHARGE SUMMARY CHIEF COMPLAINT: Shortness of breath. HISTORY OF PRESENT ILLNESS AND PHYSICAL EXAMINATION: Details of this lady's history and physical can be found in the initial workup. LABORATORY STUDIES: While she was in the hospital, she had laboratory studies, details of which can be found in the laboratory section of her chart. COURSE IN THE HOSPITAL: After admission, she was placed on bedrest, started on intravenous fluids, and started on management of her congestive heart failure. She was seen by Cardiology and Pulmonology. Largely due to her obesity, there was very little else could be done other than keeping her on her BiPAP and diuresing her. She was fairly well improved and requested to be placed in an extended care facility. The search was started, but no place would take her unless it was in the [place] area, and she did not want to leave her family. She finally determined that she would go home with her sister. Arrangements were made for her to be discharged on the , and we will set her up with home care after she leaves. FINAL DIAGNOSES: 1. Acute congestive heart failure. 2. Chronic congestive heart failure. 3. Atrial fibrillation. 4. Cardiomyopathy. 5. Morbid obesity. 6. Pickwickian syndrome. 7. Sleep apnea. 8. Chronic renal failure, stage 4. OPERATIONS: None. CONSULTATIONS: Cardiology and Pulmonology. MMODL / IJN: [id number] /
== END 2023-05-24 18:32 | disposition home health service (06) | DRG 194 ==
LOC: EC 18:44 → 3SCARD 20:47 → EEVIPCON 20:47 → 3SCARD 20:55 → 5NMEDONC 05-21 21:38
PROVIDERS: ADMIT Family Medicine; ATTEND Family Medicine
PROC: 5A09357 Assistance with Respiratory Ventilation, Less than 24 Consecutive Hours, Continuous Positive Airway Pressure (ICD-10-PCS; principal; 2023-05-19)
DX: I13.0 Hypertensive heart and chronic kidney disease with heart failure and stage 1 through stage 4 chronic kidney disease, or unspecified chronic kidney disease (principal); E11.22 Type 2 diabetes mellitus with diabetic chronic kidney disease; E66.2 Morbid (severe) obesity with alveolar hypoventilation; N18.4 Chronic kidney disease, stage 4 (severe); D63.8 Anemia in other chronic diseases classified elsewhere; E78.5 Hyperlipidemia, unspecified; Z99.81 Dependence on supplemental oxygen; I50.33 Acute on chronic diastolic (congestive) heart failure; J96.22 Acute and chronic respiratory failure with hypercapnia; J96.21 Acute and chronic respiratory failure with hypoxia; I16.1 Hypertensive emergency; I25.10 Atherosclerotic heart disease of native coronary artery without angina pectoris; I42.9 Cardiomyopathy, unspecified; Z68.45 Body mass index [BMI] 70 or greater, adult; Z60.2 Problems related to living alone; I48.20 Chronic atrial fibrillation, unspecified; I89.0 Lymphedema, not elsewhere classified; Z74.01 Bed confinement status; Z79.01 Long term (current) use of anticoagulants; Z79.82 Long term (current) use of aspirin; Z79.899 Other long term (current) drug therapy; Z82.49 Family history of ischemic heart disease and other diseases of the circulatory system; Z86.718 Personal history of other venous thrombosis and embolism; Z91.199 Patient's noncompliance with other medical treatment and regimen due to unspecified reason
CPT/HCPCS: 36415; 36600; 71045; 71046; 80048; 80053; 82805; 83605; 83735; 83880; 84484; 85025; 85610; 85730; 93005; 93308; 94660; 94760; 96374; 96375; 99291

== ENCOUNTER 2023-06-14 10:25 | Inpatient (IN) | payer OTHER ==
--- NOTE | 2023-06-14 11:00 | ED ---
Fall HPI - General Chief Complaint: Fall Stated Complaint: pain all over Time Seen by Provider: 06/14/23 10:29 Source: patient, EMS Mode of arrival: EMS - History of Present Illness Initial Comments: 48-year-old female with a past medical history significant for CHF, hypertension, morbid obesity, obstructive sleep apnea, oxygen dependence with 3 L/m is okay and mostly at night, prior ventilator respiratory failure, chronic kidney disease stage IV. Prior echo showed EF at 50-55%. Patient presents to the ED with a chief complaint of myalgias. Patient states yesterday sister cleaned patient's bed. During this, was guided to a chair while the bed was being cleaned. States was walked back by boys when she lost her balance and fell forward. Was guided to the floor. Denies head injury at this time. Now notes myalgias. Denies any pain of any of her specific extremities. Patient also notes that she is more short of breath than usual starting last night. Denies chest pain or headache. No other complaints. - Related Data Home Medications Medication Instructions Recorded Confirmed Omeprazole 20 mg PO DAILY 11/05/17 05/09/23 Acetaminophen Tab [Tylenol] 650 mg PO Q6H PRN 12/19/22 05/09/23 Magnesium Oxide [Mag-Ox] 400 mg PO DAILY 12/19/22 05/09/23 Baclofen 10 mg PO DAILY 03/06/23 05/09/23 Furosemide [Lasix] 80 mg PO DAILY 05/09/23 05/09/23 acetaZOLAMIDE [Diamox] 250 mg PO DIRECTED 05/09/23 05/09/23 carvediloL [Coreg] 50 mg PO DIRECTED 05/09/23 05/09/23 metOLazone [Zaroxolyn] 2.5 mg PO DAILY 05/09/23 05/09/23 Previous Rx's Medication Instructions Recorded Folic Acid 1 mg PO DAILY #30 tab 12/28/22 Amiodarone [Cordarone] 200 mg PO DAILY #30 tab 05/24/23 Apixaban [Eliquis] 5 mg PO BID #60 tab 05/24/23 Isosorbide Mononitrate ER [Imdur] 30 mg PO DAILY #30 tab 05/24/23 Metoprolol Succinate (ER) [Toprol 150 mg PO DAILY #30 tab 05/24/23 XL] hydrALAZINE HCL [Apresoline] 75 mg PO TID #90 tab 05/24/23 Allergies Allergy/AdvReac Type Severity Reaction Status Date / Time No Known Allergies Allergy Verified 05/09/23 21:30 Review of Systems ROS Statement: Those systems with pertinent positive or pertinent negative responses have been documented in the HPI. ROS Other: All systems not noted in ROS Statement are negative. Past Medical History Past Medical History: Coronary Artery Disease (CAD), Chest Pain / Angina, Heart Failure, Deep Vein Thrombosis (DVT), Hypertension, Osteoarthritis (OA), Renal Disease, Sleep Apnea/CPAP/BIPAP, Supraventricular Tachycardia (SVT) Additional Past Medical History / Comment(s): Pt recently admitted to [facility] on 07/03/22-07/15/22 with acute pulmonary edema. Other hx: Chronic CHF, home oxygen at 3L/NC prn, NIR/no device, previous ventilator dependent respiratory failure, sinus pauses, CKD stage IV, anemia, lymphedema, arthritis bilateral knees, hiatal hernia, diverticular disease, UTIs, constipation, urine and bowel incontinence. History of Any Multi-Drug Resistant Organisms: VRE Date of last positivie culture/infection: 05/03/20 MDRO Source:: VRE URINE Past Surgical History: Section, Hernia Repair Additional Past Surgical History / Comment(s): adominal hernia repair with mesh, cysts removed from stomach, EGD, colonoscopy Past Anesthesia/Blood Transfusion Reactions: No Reported Reaction Additional Past Anesthesia/Blood Transfusion Reaction / Comment(s): Pt has received blood in the past without reaction. Past Psychological History: Anxiety Smoking Status: Never smoker Past Alcohol Use History: None Reported Past Drug Use History: None Reported - Past Family History Father Family Medical History: Congestive Heart Failure (CHF) Additional Family Medical History / Comment(s): Father from CHF. Mother Family Medical History: Cancer, Hypertension, Sleep Apnea/CPAP/BIPAP Additional Family Medical History / Comment(s): Mother has had cancer removed from ear/head. General Exam Limitations: physical limitation General appearance: alert, obese Eye exam: Present: normal appearance Respiratory exam: Present: other (Breath sounds clear however limited secondary to body habitus. Patient does appear to be tachypneic.) Cardiovascular Exam: Present: regular rate GI/Abdominal exam: Present: soft Neurological exam: Present: alert, oriented X3 Skin exam: Present: warm, dry Course Vital Signs 06/14/23 06/14/23 06/14/23 10:30 10:38 12:45 Temperature 98.6 F Pulse Rate 63 71 Respiratory 18 26 H 24 Rate Blood Pressure 209/137 145/89 O2 Sat by Pulse 95 97 Oximetry 06/14/23 06/14/23 06/14/23 13:00 13:54 14:00 Temperature Pulse Rate 70 69 57 L Respiratory 24 24 24 Rate Blood Pressure 135/114 154/106 151/122 O2 Sat by Pulse 96 97 95 Oximetry Medical Decision Making - Medical Decision Making Was pt. sent in by a medical professional or institution (, PA, CORRECTION WORKER, urgent care, hospital, or half-way...) When possible be specific @ -No Did you speak to anyone other than the patient for history (EMS, parent, family, police, friend...)? What history was obtained from this source @ -No Did you review nursing and triage notes (agree or disagree)? Why? @ -I reviewed and agree with nursing and triage notes Were old charts reviewed (outside hosp., previous admission, EMS record, old EKG, old radiological studies, urgent care reports/EKG's, half-way records)? Report findings @ -No old charts were reviewed Differential Diagnosis (chest pain, altered mental status, abdominal pain women, abdominal pain men, vaginal bleeding, weakness, fever, dyspnea, syncope, headache, dizziness, GI bleed, back pain, seizure, CVA, palpatations, mental health, musculoskeletal)? @ -Differential Dyspnea: Coronary syndrome, arrhythmia, tamponade, asthma, COPD, pulmonary embolism, pneumonia, pneumothorax, pulmonary effusion, anaphylaxis, diabetic ketoacidosis, flailed chest, pulmonary contusion, diaphragmatic rupture, anemia, neuromuscular, this is not meant to be an all-inclusive list. EKG interpreted by me (3pts min.). @ -As above X-rays interpreted by me (1pt min.). @ -Chest x-ray shows cardiomegaly with pulmonary venous congestion and scattered infiltrates. CT interpreted by me (1pt min.). @ -None done U/S interpreted by me (1pt. min.). @ -None done What testing was considered but not performed or refused? (CT, X-rays, U/S, labs)? Why? @ -None What meds were considered but not given or refused? Why? @ -None Did you discuss the management of the patient with other professionals (professionals i.e. , PA, CORRECTION WORKER, lab, RT, psych nurse, social worker psychiatric, admiralty lawyer, teacher, medical officer, case technician)? Give summary @ -No Was smoking cessation discussed for >3mins.? @ -No Was critical care preformed (if so, how long)? @ -No Were there social determinants of health that impacted care today? How? ( Homelessness, low income, unemployed, alcoholism, drug addiction, transportation, low edu. Level, literacy, decrease access to med. care, long term, rehab)? @ -No Was there de-escalation of care discussed even if they declined (Discuss DNR or withdrawal of care, Hospice)? DNR status @ -No What co-morbidities impacted this encounter? (DM, HTN, Smoking, COPD, CAD, Cancer, CVA, ARF, Chemo, Hep., AIDS, mental health diagnosis, sleep apnea, morbid obesity)? @ -CHF Was patient admitted / discharged? Hospital course, mention meds given and route, prescriptions, significant lab abnormalities, going to OR and other pertinent info. @ -Admission 48-year-old female presenting with myalgias and 1 day history of dyspnea. Chest x-ray showed evidence of pulmonary venous congestion. Laboratory studies significant for an elevated d-dimer at 3.34. Chemistry panel significant for elevated CO2 at 35 with elevations of BUN and creatinine at 61 and 2.98 respectively. These elevations however improved from baseline. Troponin elevated at 0.047. Review of prior study shows chronically elevated troponin. Second troponin currently pending at this time patient is chest pain-free. BNP 11,600. Patient will be admitted to observation due to CHF exacerbation for diuresis with consults to nephrology and cardiology. Undiagnosed new problem with uncertain prognosis? @ -No Drug Therapy requiring intensive monitoring for toxicity (Heparin, Nitro, Insulin, Cardizem)? @ -No Were any procedures done? @ -No Diagnosis/symptom? @ -CHF exacerbation, myalgias Acute, or Chronic, or Acute on Chronic? @ -Acute Uncomplicated (without systemic symptoms) or Complicated (systemic symptoms)? @ -Complicated Side effects of treatment? @ -No Exacerbation, Progression, or Severe Exacerbation? @ -No Poses a threat to life or bodily function? How? (Chest pain, [place], [place], pneumonia, PE, COPD, DKA, ARF, appy, cholecystitis, CVA, Diverticulitis, Homicidal, Suicidal, threat to staff... and all critical care pts) @ -No - Lab Data Result diagrams: 06/14/23 11:31 06/14/23 11:31 Lab Results 06/14/23 06/14/23 06/14/23 Range/Units 11:20 11:31 11:31 WBC 6.8 (3.8-10.6) k/uL RBC 5.18 (3.80-5.40) m/uL Hgb 11.8 (11.4-16.0) gm/dL Hct 42.8 (34.0-46.0) % MCV 82.8 (80.0-100.0) fL MCH 22.8 L (25.0-35.0) pg MCHC 27.5 L (31.0-37.0) g/dL RDW 18.8 H (11.5-15.5) % Plt Count 138 L (150-450) k/uL MPV 13.4 Neutrophils % 73 % Lymphocytes % 13 % Monocytes % 8 % Eosinophils % 2 % Basophils % 0 % Neutrophils # 5.0 (1.3-7.7) k/uL Lymphocytes # 0.9 L (1.0-4.8) k/uL Monocytes # 0.6 (0-1.0) k/uL Eosinophils # 0.1 (0-0.7) k/uL Basophils # 0.0 (0-0.2) k/uL Manual Slide Review Performed Hypochromasia Marked Anisocytosis Slight Microcytosis Slight PT 12.0 (9.0-12.0) sec INR 1.2 H (<1.2) APTT 25.1 (22.0-30.0) sec D-Dimer 3.34 H (<0.60) mg/L FEU VBG pH (7.31-7.41) VBG pCO2 (37-51) mmHg VBG HCO3 (24-28) mmol/L Sodium (137-145) mmol/L Potassium (3.5-5.1) mmol/L Chloride (98-107) mmol/L Carbon Dioxide (22-30) mmol/L Anion Gap mmol/L BUN (7-17) mg/dL Creatinine (0.52-1.04) mg/dL Est GFR (CKD-EPI)AfAm (>60 ml/min/1.73 sqM) Est GFR (CKD-EPI)NonAf (>60 ml/min/1.73 sqM) Glucose (74-99) mg/dL Plasma Lactic Acid Antony (0.7-2.0) mmol/L Calcium (8.4-10.2) mg/dL Total Bilirubin (0.2-1.3) mg/dL AST (14-36) U/L ALT (4-34) U/L Alkaline Phosphatase (38-126) U/L Troponin I (0.000-0.034) ng/mL NT-Pro-B Natriuret Pep pg/mL Total Protein (6.3-8.2) g/dL Albumin (3.5-5.0) g/dL Urine Color Urine Appearance (Clear) Urine pH (5.0-8.0) Ur Specific Dennard (1.001-1.035) Urine Protein (Negative) Urine Glucose (UA) (Negative) Urine Ketones (Negative) Urine Blood (Negative) Urine Nitrite (Negative) Urine Bilirubin (Negative) Urine Urobilinogen (<2.0) mg/dL Ur Leukocyte Esterase (Negative) Urine RBC (0-5) /hpf Urine WBC (0-5) /hpf Ur Squamous Epith Cells (0-4) /hpf Urine Mucus (None) /hpf Influenza Type A (PCR) Not Detected (Not Detectd) Influenza Type B (PCR) Not Detected (Not Detectd) RSV (PCR) Not Detected (Not Detectd) SARS-CoV-2 (PCR) Not Detected (Not Detectd) 06/14/23 06/14/23 06/14/23 Range/Units 11:31 11:31 11:31 WBC (3.8-10.6) k/uL RBC (3.80-5.40) m/uL Hgb (11.4-16.0) gm/dL Hct (34.0-46.0) % MCV (80.0-100.0) fL MCH (25.0-35.0) pg MCHC (31.0-37.0) g/dL RDW (11.5-15.5) % Plt Count (150-450) k/uL MPV Neutrophils % % Lymphocytes % % Monocytes % % Eosinophils % % Basophils % % Neutrophils # (1.3-7.7) k/uL Lymphocytes # (1.0-4.8) k/uL Monocytes # (0-1.0) k/uL Eosinophils # (0-0.7) k/uL Basophils # (0-0.2) k/uL Manual Slide Review Hypochromasia Anisocytosis Microcytosis PT (9.0-12.0) sec INR (<1.2) APTT (22.0-30.0) sec D-Dimer (<0.60) mg/L FEU VBG pH (7.31-7.41) VBG pCO2 (37-51) mmHg VBG HCO3 (24-28) mmol/L Sodium 142 (137-145) mmol/L Potassium 5.2 H (3.5-5.1) mmol/L Chloride 102 (98-107) mmol/L Carbon Dioxide 35 H (22-30) mmol/L Anion Gap 5 mmol/L BUN 61 H (7-17) mg/dL Creatinine 2.98 H (0.52-1.04) mg/dL Est GFR (CKD-EPI)AfAm 20 (>60 ml/min/1.73 sqM) Est GFR (CKD-EPI)NonAf 18 (>60 ml/min/1.73 sqM) Glucose 93 (74-99) mg/dL Plasma Lactic Acid Antony 0.8 (0.7-2.0) mmol/L Calcium 9.0 (8.4-10.2) mg/dL Total Bilirubin 1.2 (0.2-1.3) mg/dL AST 77 H (14-36) U/L ALT 18 (4-34) U/L Alkaline Phosphatase 116 (38-126) U/L Troponin I (0.000-0.034) ng/mL NT-Pro-B Natriuret Pep 52271 pg/mL Total Protein 9.2 H (6.3-8.2) g/dL Albumin 4.1 (3.5-5.0) g/dL Urine Color Light Yellow Urine Appearance Clear (Clear) Urine pH 7.0 (5.0-8.0) Ur Specific Dennard 1.013 (1.001-1.035) Urine Protein 3+ H (Negative) Urine Glucose (UA) Negative (Negative) Urine Ketones Negative (Negative) Urine Blood Negative (Negative) Urine Nitrite Negative (Negative) Urine Bilirubin Negative (Negative) Urine Urobilinogen <2.0 (<2.0) mg/dL Ur Leukocyte Esterase Negative (Negative) Urine RBC <1 (0-5) /hpf Urine WBC <1 (0-5) /hpf Ur Squamous Epith Cells <1 (0-4) /hpf Urine Mucus Rare H (None) /hpf Influenza Type A (PCR) (Not Detectd) Influenza Type B (PCR) (Not Detectd) RSV (PCR) (Not Detectd) SARS-CoV-2 (PCR) (Not Detectd) 06/14/23 06/14/23 Range/Units 11:31 11:31 WBC (3.8-10.6) k/uL RBC (3.80-5.40) m/uL Hgb (11.4-16.0) gm/dL Hct (34.0-46.0) % MCV (80.0-100.0) fL MCH (25.0-35.0) pg MCHC (31.0-37.0) g/dL RDW (11.5-15.5) % Plt Count (150-450) k/uL MPV Neutrophils % % Lymphocytes % % Monocytes % % Eosinophils % % Basophils % % Neutrophils # (1.3-7.7) k/uL Lymphocytes # (1.0-4.8) k/uL Monocytes # (0-1.0) k/uL Eosinophils # (0-0.7) k/uL Basophils # (0-0.2) k/uL Manual Slide Review Hypochromasia Anisocytosis Microcytosis PT (9.0-12.0) sec INR (<1.2) APTT (22.0-30.0) sec D-Dimer (<0.60) mg/L FEU VBG pH 7.32 (7.31-7.41) VBG pCO2 66 H (37-51) mmHg VBG HCO3 34 H (24-28) mmol/L Sodium (137-145) mmol/L Potassium (3.5-5.1) mmol/L Chloride (98-107) mmol/L Carbon Dioxide (22-30) mmol/L Anion Gap mmol/L BUN (7-17) mg/dL Creatinine (0.52-1.04) mg/dL Est GFR (CKD-EPI)AfAm (>60 ml/min/1.73 sqM) Est GFR (CKD-EPI)NonAf (>60 ml/min/1.73 sqM) Glucose (74-99) mg/dL Plasma Lactic Acid Antony (0.7-2.0) mmol/L Calcium (8.4-10.2) mg/dL Total Bilirubin (0.2-1.3) mg/dL AST (14-36) U/L ALT (4-34) U/L Alkaline Phosphatase (38-126) U/L Troponin I 0.047 H* (0.000-0.034) ng/mL NT-Pro-B Natriuret Pep pg/mL Total Protein (6.3-8.2) g/dL Albumin (3.5-5.0) g/dL Urine Color Urine Appearance (Clear) Urine pH (5.0-8.0) Ur Specific Dennard (1.001-1.035) Urine Protein (Negative) Urine Glucose (UA) (Negative) Urine Ketones (Negative) Urine Blood (Negative) Urine Nitrite (Negative) Urine Bilirubin (Negative) Urine Urobilinogen (<2.0) mg/dL Ur Leukocyte Esterase (Negative) Urine RBC (0-5) /hpf Urine WBC (0-5) /hpf Ur Squamous Epith Cells (0-4) /hpf Urine Mucus (None) /hpf Influenza Type A (PCR) (Not Detectd) Influenza Type B (PCR) (Not Detectd) RSV (PCR) (Not Detectd) SARS-CoV-2 (PCR) (Not Detectd) - EKG Data EKG Comments: EKG shows a sinus rhythm at [address] or T-wave changes. WA 228, QRS 86, QT/QTc 440/429. Disposition Clinical Impression: CHF (congestive heart failure), Myalgia Disposition: ADMITTED IP TO THIS HOSP Condition: Fair Referrals: Kevin Stanford MD [Primary Care Provider] - 1-2 days Time of Disposition: 17:25
[2023-06-14] MEDS ORDERED: ACETAMINOPHEN TAB 325 MG TAB PO STA (11:02)
[2023-06-14] MEDS ORDERED: hydrALAZINE HCL 20 MG/ML 1 ML VIAL IVP STA ×2 (11:46→17:49)
[2023-06-14 12:26] LABS: INR 1.2 (<1.2); Partial Thromboplastin Time 25.1 sec (22.0-30.0)
[2023-06-14 12:31] LABS: ALT 18 U/L (4-34); AST 77 U/L (14-36); African American GFR (CKD) 20 (>60 ml/min/1.73 sqM); Albumin 4.1 g/dL (3.5-5.0); Alkaline Phosphatase 116 U/L (38-126); Anion Gap 5 mmol/L; Anisocytosis Slight; Basophils % (A) 0 %; Blood Urea Nitrogen 61 mg/dL (7-17); Carbon Dioxide 35 mmol/L (22-30); Chloride 102 mmol/L (98-107); Eosinophils # (A) 0.1 k/uL (0-0.7); Eosinophils % (A) 2 %; Glucose 93 mg/dL (74-99); HCT 42.8 % (34.0-46.0); HGB 11.8 gm/dL (11.4-16.0); Hypochromasia Marked; Lymphocytes # (A) 0.9 k/uL (1.0-4.8); Lymphocytes % (A) 13 %; MCH 22.8 pg (25.0-35.0); MCHC 27.5 g/dL (31.0-37.0); MCV 82.8 fL (80.0-100.0); Mean Platelet Volume 13.4; Microcytosis Slight; Monocytes # (A) 0.6 k/uL (0-1.0); Monocytes % (A) 8 %; Neutrophils % (A) 73 %; Non-African American GFR(CKD) 18 (>60 ml/min/1.73 sqM); RBC 5.18 m/uL (3.80-5.40); RDW 18.8 % (11.5-15.5); Sodium 142 mmol/L (137-145); Total Bilirubin 1.2 mg/dL (0.2-1.3); Total Protein 9.2 g/dL (6.3-8.2); WBC 6.8 k/uL (3.8-10.6)
[2023-06-14 12:38] LABS: NT-Pro-B-Type Natriuretic Pept 11600 pg/mL; Potassium 5.2 mmol/L (3.5-5.1)
--- NOTE | 2023-06-14 12:49 | XR ---
EXAMINATION TYPE: XR chest 2V DATE OF EXAM: 06/14/2023 COMPARISON: 05/20/2023 HISTORY: Chest pain TECHNIQUE: Frontal and lateral views of the chest are obtained. FINDINGS: There is no focal air space opacity. No evidence for pneumothorax. No pleural effusion. Cardiomegaly with pulmonary venous congestion and scattered infiltrates. Findings may reflect the acu te pulmonary edema and/or pneumonia. Correlate clinically. The osseous structures are grossly intact. IMPRESSION: 1. Cardiomegaly with pulmonary venous congestion and scattered infiltrates. Findings may reflect the acute pulmonary edema and/or pneumonia. Correlate clinically.
[2023-06-14 13:04] LABS: VBG PH 7.32 (7.31-7.41)
[2023-06-14 13:22] LABS: Appearance,Urine Clear (Clear); Bilirubin,Urine Negative (Negative); Blood,Urine Negative (Negative); Color,Urine Light Yellow; Glucose,Urine (UA) Negative (Negative); Ketones,Urine Negative (Negative); Leukocyte Esterase,Urine Negative (Negative); Mucus,Urine Rare /hpf; Nitrite,Urine Negative (Negative); Protein,Urine 3+ (Negative); RBC,Urine <1 /hpf (0-5); Specific Gravity,Urine 1.013 (1.001-1.035); Squamous Epithelial Cell,Urine <1 /hpf (0-4); Urobilinogen,Urine <2.0 mg/dL (<2.0); WBC,Urine <1 /hpf (0-5)
[2023-06-14 13:46] LABS: Platelet Count 138 k/uL (150-450)
[2023-06-14] MEDS ORDERED: FUROSEMIDE 10 MG/ML 2 ML VIAL IV ONE (14:52)
--- NOTE | 2023-06-14 16:57 | NM ---
EXAMINATION TYPE: NM pul perfusion DATE OF EXAM: 06/14/2023 COMPARISON: Radiograph same day CLINICAL INDICATION: Female, 48 years old with history of r/o PE; Following administration of 5.2 mCi Tc 99m MAA. Images obtained post injection. FINDINGS: Technologist notes: The patient was unable to lie flat on back due to difficulty in breathing/body espinoza bitus. Unable to maneuver/move patient for any additional views Only a single right lateral perfusion image could be obtained. There appears to be homogeneous activi ty throughout the right lung. Small left lung in keeping with the cardiomegaly seen radiographically. IMPRESSION: Only a single right lateral perfusion image could be performed due to patient's condition. No suspici ous changes on that single image. Cardiomegaly gives the appearance of a small left lung.
[2023-06-14] MEDS ORDERED: FUROSEMIDE 10 MG/ML 10 ML VIAL IV STA (17:37)
[2023-06-14] MEDS ORDERED: NALOXONE 0.4 MG/ML 1 ML VIAL IV PRN (17:38)
[2023-06-14] MEDS ORDERED: SODIUM CHLORIDE 0.9% 1,000 ML IV SCH (17:45)
[2023-06-14] MEDS: APIXABAN 5 MG TAB PO SCH (21:48)
[2023-06-15] MEDS: FUROSEMIDE 10 MG/ML 4 ML VIAL IV SCH ×3 (01:03→20:35)
[2023-06-15 08:42] LABS: Calcium 9.3 mg/dL (8.4-10.2); Potassium 4.1 mmol/L (3.5-5.1)
[2023-06-15] MEDS ORDERED: acetaZOLAMIDE 250 MG TAB PO SCH (09:00)
[2023-06-15] MEDS: APIXABAN 5 MG TAB PO SCH ×2 (09:47→20:35)
[2023-06-15] MEDS: AMIODARONE 200 MG TAB PO SCH (09:47)
[2023-06-15] MEDS: MAGNESIUM OXIDE 400 MG TAB PO SCH (09:47)
[2023-06-15] MEDS: METOPROLOL SUCCINATE (ER) 100 MG TAB.ER.24H PO SCH (09:47)
[2023-06-15] MEDS: ISOSORBIDE MONONITRATE ER 30 MG TAB.ER.24H PO SCH (09:47)
[2023-06-15] MEDS: PANTOPRAZOLE 40 MG TABLET PO SCH (09:47)
[2023-06-15] MEDS: FOLIC ACID 1 MG TAB PO SCH (09:48)
--- NOTE | 2023-06-15 12:18 | P.NPCON ---
History of Present Illness - Reason for Consult acute renal failure - History of Present Illness Patient is a 48-year-old female with history of chronic kidney disease NKF stage IIIB with baseline creatinine around 2 mg/dL secondary to cardiorenal syndrome and nephrosclerosis. There is underlying history of chronic diastolic CHF and previous admissions for volume overload. Patient is admitted to the hospital with complaints of shortness of breath. No fever documented. Currently with indwelling Colon catheter. Chest x-ray shows evidence of pulmonary edema and pulmonary vascular congestion. Patient is currently being diuresed. Serum creatinine at 2.9 mg/dL and it is 3.0 today. Blood pressure is not low. Maintained on oxygen via nasal cannula at 3 L Review of Systems As per HPI Past Medical History Past Medical History: Coronary Artery Disease (CAD), Chest Pain / Angina, Heart Failure, Deep Vein Thrombosis (DVT), Hypertension, Osteoarthritis (OA), Renal Disease, Sleep Apnea/CPAP/BIPAP, Supraventricular Tachycardia (SVT) Additional Past Medical History / Comment(s): Pt recently admitted to [facility] on 07/03/22-07/15/22 with acute pulmonary edema. Other hx: Chronic CHF, home oxygen at 3L/NC prn, NIR/no device, previous ventilator dependent respiratory failure, sinus pauses, CKD stage IV, anemia, lymphedema, arthritis bilateral knees, hiatal hernia, diverticular disease, UTIs, constipation, urine and bowel incontinence. History of Any Multi-Drug Resistant Organisms: VRE Date of last positivie culture/infection: 05/03/20 MDRO Source:: VRE URINE Past Surgical History: Section, Hernia Repair Additional Past Surgical History / Comment(s): adominal hernia repair with mesh, cysts removed from stomach, EGD, colonoscopy Past Anesthesia/Blood Transfusion Reactions: No Reported Reaction Additional Past Anesthesia/Blood Transfusion Reaction / Comment(s): Pt has received blood in the past without reaction. Past Psychological History: Anxiety Additional Psychological History / Comment(s): Pt states she lives "pretty much" alone at home. She is mostly bedbound, when someone comes over, they assist her to her wheelchair via george lift. Pt states she was to start with [facility] home care. Family provides meals. She keeps her medications near her and manages th em on her own. She is incontinent of urine/stool and wears depends. Smoking Status: Never smoker Past Alcohol Use History: None Reported Past Drug Use History: None Reported - Past Family History Father Family Medical History: Congestive Heart Failure (CHF) Additional Family Medical History / Comment(s): Father from CHF. Mother Family Medical History: Cancer, Hypertension, Sleep Apnea/CPAP/BIPAP Additional Family Medical History / Comment(s): Mother has had cancer removed from ear/head. Medications and Allergies Home Medications Medication Instructions Recorded Confirmed Type Omeprazole 20 mg PO DAILY 11/05/17 06/14/23 History Magnesium Oxide [Mag-Ox] 400 mg PO DAILY 12/19/22 06/14/23 History Folic Acid 1 mg PO DAILY #30 tab 12/28/22 06/14/23 Rx Furosemide [Lasix] 80 mg PO BID 05/09/23 06/14/23 History acetaZOLAMIDE [Diamox] 250 mg PO DAILY 05/09/23 06/14/23 History metOLazone [Zaroxolyn] 2.5 mg PO DAILY 05/09/23 06/14/23 History Amiodarone [Cordarone] 200 mg PO DAILY #30 tab 05/24/23 06/14/23 Rx Apixaban [Eliquis] 5 mg PO BID #60 tab 05/24/23 06/14/23 Rx Isosorbide Mononitrate ER [Imdur] 30 mg PO DAILY #30 tab 05/24/23 06/14/23 Rx Metoprolol Succinate (ER) [Toprol 100 mg PO DAILY 06/14/23 06/14/23 History Xl] Allergies Allergy/AdvReac Type Severity Reaction Status Date / Time No Known Allergies Allergy Verified 05/09/23 21:30 Physical Exam Vitals: Vital Signs Temp Pulse Pulse Resp BP BP Pulse Ox 06/15/23 07:00 97.8 F 77 20 149/100 96 06/15/23 02:29 97.9 F 74 15 125/63 94 L 06/14/23 21:45 98.2 F 71 16 123/81 93 L 06/14/23 20:21 80 18 117/67 97 06/14/23 18:50 85 18 135/72 94 L 06/14/23 14:00 57 L 24 151/122 95 06/14/23 13:54 69 24 154/106 97 06/14/23 13:00 70 24 135/114 96 09/15/23 12:45 71 24 145/89 97 Intake and Output 06/14/23 06/15/23 06/15/23 22:59 06:59 14:59 Output Total 1200 Balance -1200 Output: Urine 1200 Other: Voiding Method Indwelling Catheter Indwelling Catheter # Bowel Movements 0 Weight 204.117 kg 179 kg Patient is awake, comfortable, she dozes off to sleep but is arousable. Examination of the heart S1 and S2 Examination of the lungs bilateral breath sounds are heard Abdomen is soft obese nontender Examination lower extremity shows edema 2+ bilaterally Results - Lab Results Most recent lab results Calcium 9.3 mg/dL (8.4-10.2) 06/15/23 06:54 06/14/23 11:31 06/15/23 06:54 Assessment and Plan Assessment: 1. Acute kidney injury cardiorenal. Possible urine retention, currently with indwelling Colon catheter. Unclear as to how much urine was obtained on initial Colon placement. 2. Chronic kidney disease NKF stage IIIB with baseline creatinine around 2 mg/dL. 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 Previous workup was negative in 2020. No history of diabetes. Urine protein creatinine ratio 1.0 on 01/24/2022. This will be repeated including baseline workup. 3. Volume overload 4. Acute on chronic diastolic CHF. 5. Morbid obesity Plan: Continue with IV Lasix. Change to 60 mg IV every 12 hours. Accurate I's and O's Repeat serology can workup for proteinuria Repeat urine protein creatinine ratio Outpatient follow-up for CK D Thank you for the consultation. We will continue to follow the patient with you during her hospitalization.
--- NOTE | 2023-06-15 17:42 | P.CRDCN ---
History of Present Illness Consult date: 06/15/23 History of present illness: HISTORY OF PRESENTING ILLNESS Patient is a 48-year-old female with past medical history of CKD states IIIB, baseline creatinine around 2, chronic diastolic heart failure, follows up with Dr. pro. She also has history of hypertension and morbid obesity obstructive sleep apnea oxygen dependent. She presented to the hospital with a chief complaint of myalgias. Patient states that yesterday her sister was clean ing her bedside and was guiding her to the chair but in the middle of this she lost her balance and fell forward. She did not include any injury but now she has been complaining of body aches and myalgias. She is also complaining of shortness of breath. For this she was admitted. On admission she had evidence of elevated troponins measuring 0.07 with a flat pattern in the setting of CKD import renal clearance with a creatinine of 3.09 which is at baseline. Cardiology was consulted for elevated troponins. Her chest x-ray shows very poor inspiratory effort and very poor exposure due to significant obesity. She was recently hospitalized in April for fluid overload. This time she pres ent to the hospital PRIOR CARDIAC TESTING Echocardiogram from November 2022 shows an EF of 30-35% REVIEW OF SYSTEMS 14 point review of system is negative except what is mentioned above in HPI. PHYSICAL EXAMINATION Vital signs reviewed. Head: Normocephalic. Eyes: Sclerae nonicteric. Neck: Brisk carotid upstroke, no jugular venous distention. Lungs: Clear to auscultation. Heart: Regular rate and rhythm, S1-S2, no S3, no murmur or rub. Abdomen: Soft nontender, positive bowel sounds no organomegaly. Extremities: 2+ pitting edema in bilateral lower extremities ASSESSMENT Elevated troponins with flat pattern due to poor renal clearance. Not related to his heart Chronic systolic and diastolic heart failure, not more exacerbated than her baseline Hypertension CKD Obesity with debility Obstructive sleep apnea PLAN Time patient does not appear more fluid overloaded than her baseline. I would recommend to continue her home medications which includes metolazone 2.5 mg daily, Lasix 80 mg twice a day, Eliquis 5 mg twice a day, amiodarone 200 mg daily, Imdur 30 minutes daily, metoprolol succinate 100 mg daily. Patient's troponin elevation is noncardiac. I don't feel any need for further cardiac imaging or further testing at this time. Cardiology team will sign off. Please reconsult us in case of any quotient Past Medical History Past Medical History: Coronary Artery Disease (CAD), Chest Pain / Angina, Heart Failure, Deep Vein Thrombosis (DVT), Hypertension, Osteoarthritis (OA), Renal Disease, Sleep Apnea/CPAP/BIPAP, Supraventricular Tachycardia (SVT) Additional Past Medical History / Comment(s): Pt recently admitted to [facility] on 07/03/22-07/15/22 with acute pulmonary edema. Other hx: Chronic CHF, home oxygen at 3L/NC prn, NIR/no device, previous ventilator dependent respiratory failure, sinus pauses, CKD stage IV, anemia, lymphedema, arthritis bilateral knees, hiatal hernia, diverticular disease, UTIs, constipation, urine and bowel incontinence. History of Any Multi-Drug Resistant Organisms: VRE Date of last positivie culture/infection: 05/03/20 MDRO Source:: VRE URINE Past Surgical History: Section, Hernia Repair Additional Past Surgical History / Comment(s): adominal hernia repair with mesh, cysts removed from stomach, EGD, colonoscopy Past Anesthesia/Blood Transfusion Reactions: No Reported Reaction Additional Past Anesthesia/Blood Transfusion Reaction / Comment(s): Pt has received blood in the past without reaction. Past Psychological History: Anxiety Additional Psychological History / Comment(s): Pt states she lives "pretty much" alone at home. She is mostly bedbound, when someone comes over, they assist her to her wheelchair via george lift. Pt states she was to start with [facility] home care. Family provides meals. She keeps her medications near her and manages them on her own. She is incontinent of urine/stool and wears depends. Smoking Status: Never smoker Past Alcohol Use History: None Reported Past Drug Use History: None Reported - Past Family History Father Family Medical History: Congestive Heart Failure (CHF) Additional Family Medical History / Comment(s): Father from CHF. Mother Family Medical History: Cancer, Hypertension, Sleep Apnea/CPAP/BIPAP Additional Family Medical History / Comment(s): Mother has had cancer removed from ear/head. Medications and Allergies Home Medications Medication Instructions Recorded Confirmed Type Omeprazole 20 mg PO DAILY 11/05/17 06/14/23 History Magnesium Oxide [Mag-Ox] 400 mg PO DAILY 12/19/22 06/14/23 History Folic Acid 1 mg PO DAILY #30 tab 12/28/22 06/14/23 Rx Furosemide [Lasix] 80 mg PO BID 05/09/23 06/14/23 History acetaZOLAMIDE [Diamox] 250 mg PO DAILY 05/09/23 06/14/23 History metOLazone [Zaroxolyn] 2.5 mg PO DAILY 05/09/23 06/14/23 History Amiodarone [Cordarone] 200 mg PO DAILY #30 tab 05/24/23 06/14/23 Rx Apixaban [Eliquis] 5 mg PO BID #60 tab 05/24/23 06/14/23 Rx Isosorbide Mononitrate ER [Imdur] 30 mg PO DAILY #30 tab 05/24/23 06/14/23 Rx Metoprolol Succinate (ER) [Toprol 100 mg PO DAILY 06/14/23 06/14/23 History Xl] Allergies Allergy/AdvReac Type Severity Reaction Status Date / Time No Known Allergies Allergy Verified 05/09/23 21:30 Physical Exam Vitals: Vital Signs Temp Pulse Pulse Resp BP BP Pulse Ox 06/15/23 15:00 98.9 F 92 21 164/88 92 L 06/15/23 07:00 97.8 F 77 20 149/100 96 06/15/23 02:29 97.9 F 74 15 125/63 94 L 06/14/23 21:45 98.2 F 71 16 123/81 93 L 06/14/23 20:21 80 18 117/67 97 06/14/23 18:50 85 18 135/72 94 L Intake and Output 06/15/23 06/15/23 06/15/23 06:59 14:59 22:59 Output Total 1200 550 Balance -1200 -550 Output: Urine 1200 550 Other: Voiding Method Indwelling Catheter Indwelling Catheter Weight 179 kg 179 kg Results 06/14/23 11:31 06/15/23 06:54 Cardiac Enzymes 06/14/23 06/14/23 Range/Units 20:18 23:04 Troponin I 0.054 H* 0.074 H* (0.000-0.034) ng/mL Comprehensive Metabolic Panel 06/15/23 Range/Units 06:54 Sodium 145 (137-145) mmol/L Potassium 4.1 (3.5-5.1) mmol/L Chloride 104 (98-107) mmol/L Carbon Dioxide 32 H (22-30) mmol/L BUN 60 H (7-17) mg/dL Creatinine 3.09 H (0.52-1.04) mg/dL Glucose 95 (74-99) mg/dL Calcium 9.3 (8.4-10.2) mg/dL Current Medications Generic Name Dose Route Start Last Admin Trade Name Freq PRN Reason Stop Dose Admin Acetazolamide 250 mg 06/15/23 09:00 06/15/23 09:47 Acetazolamide 250 Mg Tab PO 250 mg DAILY FARRAH Administration Amiodarone HCl 200 mg 06/15/23 09:00 06/15/23 09:47 Amiodarone 200 Mg Tab PO 200 mg DAILY FARRAH Administration Apixaban 5 mg 06/14/23 21:45 06/15/23 09:47 Apixaban 5 Mg Tab PO 5 mg BID FARRAH Administration Protocol Folic Acid 1 mg 06/15/23 09:00 06/15/23 09:48 Folic Acid 1 Mg Tab PO 1 mg DAILY FARRAH Administration Furosemide 60 mg 06/15/23 21:00 Furosemide 10 Mg/Ml 4 Ml Vial IV Q12HR FARRAH Hydromorphone HCl 0.5 mg 06/14/23 17:38 Hydromorphone 0.5 Mg/0.5 Ml Syringe IVP Q3HR PRN Moderate Pain (Scale 4 to 6) Hydromorphone HCl 1 mg 06/14/23 17:38 Hydromorphone 1 Mg/Ml 1 Ml Syringe IVP Q3HR PRN Severe Pain (Scale 7 to 10) Isosorbide Mononitrate 30 mg 06/15/23 09:00 06/15/23 09:47 Isosorbide Mononitrate Er 30 Mg Tab.Er.24h PO 30 mg DAILY FARRAH Administration Magnesium Oxide 400 mg 06/15/23 09:00 06/15/23 09:47 Magnesium Oxide 400 Mg Tab PO 400 mg DAILY FARRAH Administration Metoprolol Succinate 100 mg 06/15/23 09:00 06/15/23 09:47 Metoprolol Succinate (Er) 100 Mg Tab.Er.24h PO 100 mg DAILY FARRAH Administration Naloxone HCl 0.2 mg 06/14/23 17:38 Naloxone 0.4 Mg/Ml 1 Ml Vial IV Q2M PRN Opioid Reversal Pantoprazole Sodium 40 mg 06/15/23 09:00 06/15/23 09:47 Pantoprazole 40 Mg Tablet PO 40 mg DAILY FARRAH Administration Intake and Output 06/15/23 06/15/23 06/15/23 06:59 14:59 22:59 Output Total 1200 550 Balance -1200 -550 Output: Urine 1200 550 Other: Voiding Method Indwelling Catheter Indwelling Catheter Weight 179 kg 179 kg Patient Weight 06/16/23 06:59 Weight 179 kg 06/14/23 11:31 06/15/23 06:54
--- NOTE | 2023-06-15 19:45 | P.HPIM ---
History of Present Illness H&P Date: 06/14/23 Chief Complaint: Fall/shortness of breath 48-year-old female with a past medical history significant for CHF, hypertension, morbid obesity, obstructive sleep apnea, oxygen dependence with 3 L/m is okay and mostly at night, prior ventilator respiratory failure, chronic kidney disease stage IV. Prior echo showed EF at 50-55%. Patient presents to the ED with a chief complaint of myalgias. Patient states yesterday sister cleaned patient's bed. During this, was guided to a chair while the bed was being cleaned. States was walked back by boys when she lost her balance and fell forward. Was guided to the floor. Denies head injury at this time. Now notes myalgias. Denies any pain of any of her specific extremities. Patient also notes that she is more short of breath than usual starting last night. Denies chest pain or headache. No other complaints. Review of Systems REVIEW OF SYSTEMS: CONSTITUTIONAL: No fever, no malaise, no fatigue. HEENT: No recent visual problems or hearing problems. Denied any sore throat. CARDIOVASCULAR: No chest pain, orthopnea, PND, no palpitations, no syncope. PULMONARY: No shortness of breath, no cough, no hemoptysis. GASTROINTESTINAL: No diarrhea, no nausea, no vomiting, no abdominal pain. NEUROLOGICAL: No headaches, no weakness, no numbness. HEMATOLOGICAL: Denies any bleeding or petechiae. GENITOURINARY: Denies any burning micturition, frequency, or urgency. MUSCULOSKELETAL/RHEUMATOLOGICAL: Denies any joint pain, swelling, or any muscle pain. ENDOCRINE: Denies any polyuria or polydipsia. The rest of the 14-point review of systems is negative. Past Medical History Past Medical History: Coronary Artery Disease (CAD), Chest Pain / Angina, Heart Failure, Deep Vein Thrombosis (DVT), Hypertension, Osteoarthritis (OA), Renal Disease, Sleep Apnea/CPAP/BIPAP, Supraventricular Tachycardia (SVT) Additional Past Medical History / Comment(s): Pt recently admitted to [facility] on 07/03/22-07/15/22 with acute pulmonary edema. Other hx: Chronic CHF, home oxygen at 3L/NC prn, NIR/no device, previous ventilator dependent respiratory failure, sinus pauses, CKD stage IV, anemia, lymphedema, arthritis bilateral knees, hiatal hernia, diverticular disease, UTIs, constipation, urine and bowel incontinence. History of Any Multi-Drug Resistant Organisms: VRE Date of last positivie culture/infection: 05/03/20 MDRO Source:: VRE URINE Past Surgical History: Section, Hernia Repair Additional Past Surgical History / Comment(s): adominal hernia repair with mesh, cysts removed from stomach, EGD, colonoscopy Past Anesthesia/Blood Transfusion Reactions: No Reported Reaction Additional Past Anesthesia/Blood Transfusion Reaction / Comment(s): Pt has received blood in the past without reaction. Past Psychological History: Anxiety Smoking Status: Never smoker Past Alcohol Use History: None Reported Past Drug Use History: None Reported - Past Family History Father Family Medical History: Congestive Heart Failure (CHF) Additional Family Medical History / Comment(s): Father from CHF. Mother Family Medical History: Cancer, Hypertension, Sleep Apnea/CPAP/BIPAP Additional Family Medical History / Comment(s): Mother has had cancer removed from ear/head. Medications and Allergies Home Medications Medication Instructions Recorded Confirmed Type Omeprazole 20 mg PO DAILY 11/05/17 06/14/23 History Magnesium Oxide [Mag-Ox] 400 mg PO DAILY 12/19/22 06/14/23 History Folic Acid 1 mg PO DAILY #30 tab 12/28/22 06/14/23 Rx Furosemide [Lasix] 80 mg PO BID 05/09/23 06/14/23 History acetaZOLAMIDE [Diamox] 250 mg PO DAILY 05/09/23 06/14/23 History metOLazone [Zaroxolyn] 2.5 mg PO DAILY 05/09/23 06/14/23 History Amiodarone [Cordarone] 200 mg PO DAILY #30 tab 05/24/23 06/14/23 Rx Apixaban [Eliquis] 5 mg PO BID #60 tab 05/24/23 06/14/23 Rx Isosorbide Mononitrate ER [Imdur] 30 mg PO DAILY #30 tab 05/24/23 06/14/23 Rx Metoprolol Succinate (ER) [Toprol 100 mg PO DAILY 06/14/23 06/14/23 History Xl] Allergies Allergy/AdvReac Type Severity Reaction Status Date / Time No Known Allergies Allergy Verified 05/09/23 21:30 Physical Exam Vitals: Vital Signs Temp Pulse Resp BP Pulse Ox 06/14/23 14:00 57 L 24 151/122 95 06/14/23 13:54 69 24 154/106 97 06/14/23 13:00 70 24 135/114 96 06/14/23 12:45 71 24 145/89 97 06/14/23 10:38 26 H 06/14/23 10:30 98.6 F 63 18 209/137 95 Intake and Output 06/14/23 06/14/23 06/14/23 06:59 14:59 22:59 Other: Weight 204.117 kg PHYSICAL EXAMINATION: GENERAL: The patient is alert and oriented x3, not in any acute distress. Well developed, well nourished. HEENT: Pupils are round and equally reacting to light. EOMI. No scleral icterus. No conjunctival pallor. Normocephalic, atraumatic. No pharyngeal erythema. No thyromegaly. CARDIOVASCULAR: S1 and S2 present. No murmurs, rubs, or gallops. PULMONARY: Chest is clear to auscultation, no wheezing or crackles. ABDOMEN: Soft, nontender, nondistended, normoactive bowel sounds. No palpable organomegaly. MUSCULOSKELETAL: No joint swelling or deformity. EXTREMITIES: No cyanosis, clubbing, or pedal edema. NEUROLOGICAL: Gross neurological examination did not reveal any focal deficits. SKIN: No rashes. Results CBC & Chem 7: 06/14/23 11:31 06/15/23 06:54 Labs: Abnormal Lab Results - Last 24 Hours (Table) 06/14/23 06/14/23 06/14/23 Range/Units 11:31 11:31 11:31 MCH 22.8 L (25.0-35.0) pg MCHC 27.5 L (31.0-37.0) g/dL RDW 18.8 H (11.5-15.5) % Plt Count 138 L (150-450) k/uL Lymphocytes # 0.9 L (1.0-4.8) k/uL INR 1.2 H (<1.2) D-Dimer 3.34 H (<0.60) mg/L FEU VBG pCO2 (37-51) mmHg VBG HCO3 (24-28) mmol/L Potassium (3.5-5.1) mmol/L Carbon Dioxide (22-30) mmol/L BUN (7-17) mg/dL Creatinine (0.52-1.04) mg/dL AST (14-36) U/L Troponin I (0.000-0.034) ng/mL Total Protein (6.3-8.2) g/dL Urine Protein 3+ H (Negative) Urine Mucus Rare H (None) /hpf 06/14/23 06/14/23 06/14/23 Range/Units 11:31 11:31 11:31 MCH (25.0-35.0) pg MCHC (31.0-37.0) g/dL RDW (11.5-15.5) % Plt Count (150-450) k/uL Lymphocytes # (1.0-4.8) k/uL INR (<1.2) D-Dimer (<0.60) mg/L FEU VBG pCO2 66 H (37-51) mmHg VBG HCO3 34 H (24-28) mmol/L Potassium 5.2 H (3.5-5.1) mmol/L Carbon Dioxide 35 H (22-30) mmol/L BUN 61 H (7-17) mg/dL Creatinine 2.98 H (0.52-1.04) mg/dL AST 77 H (14-36) U/L Troponin I 0.047 H* (0.000-0.034) ng/mL Total Protein 9.2 H (6.3-8.2) g/dL Urine Protein (Negative) Urine Mucus (None) /hpf 06/14/23 Range/Units 17:03 MCH (25.0-35.0) pg MCHC (31.0-37.0) g/dL RDW (11.5-15.5) % Plt Count (150-450) k/uL Lymphocytes # (1.0-4.8) k/uL INR (<1.2) D-Dimer (<0.60) mg/L FEU VBG pCO2 (37-51) mmHg VBG HCO3 (24-28) mmol/L Potassium (3.5-5.1) mmol/L Carbon Dioxide (22-30) mmol/L BUN (7-17) mg/dL Creatinine (0.52-1.04) mg/dL AST (14-36) U/L Troponin I 0.050 H* (0.000-0.034) ng/mL Total Protein (6.3-8.2) g/dL Urine Protein (Negative) Urine Mucus (None) /hpf Assessment and Plan Assessment: 1. Acute exacerbation CHF - Patient has been placed on Lasix 40 mg IV every 12 hours; monitor strict KEENAN's, daily weights, low salt and fluid restricted diet - 2-D echo; consult cardiology 2. Acute renal injury; we will hold off on IV fluid hydration given CHF exacerbation - We will monitor strict KEENAN's, daily weights, renal function and electrolytes; avoid nephrotoxins and hypotension - We will consult nephrology if renal function continues to trend up 3. Elevated troponin; possibly demand ischemia related to hypoxia with CHF; AK I - We will trend troponin and monitor EKG; 2-D echo - Cardiology to evaluate and make further recommendations 4. Coronary artery disease; continue with home dose of aspirin and Imdur and metoprolol 5. Hypertension; metoprolol 100 mg daily, Imdur 30 mg daily 6. History of DVT; anticoagulated with L Dupree 5 mg twice a day 7. Obstructive sleep apnea; patient uses CPAP at home; we will continue
--- NOTE | 2023-06-15 19:46 | P.PN ---
Subjective Progress Note Date: 06/15/23 48-year-old female with a past medical history significant for CHF, hypertension, morbid obesity, obstructive sleep apnea, oxygen dependence with 3 L/m is okay and mostly at night, prior ventilator respiratory failure, chronic kidney disease stage IV. Prior echo showed EF at 50-55%. Patient presents to the ED with a chief complaint of myalgias. Patient states yesterday sister cleaned patient's bed. During this, was guided to a chair while the bed was being cleaned. States was walked back by boys when she lost her balance and fell forward. Was guided to the floor. Denies head injury at this time. Now notes myalgias. Denies any pain of any of her specific extremities. Patient also notes that she is more short of breath than usual starting last night. Denies chest pain or headache. No other complaints. Objective - Vital Signs Vital signs: Vital Signs Temp 97.8 F 06/15/23 07:00 Pulse 77 06/15/23 07:00 Resp 20 06/15/23 07:00 BP 149/100 06/15/23 07:00 Pulse Ox 96 06/15/23 07:00 FiO2 Intake & Output 06/14/23 06/15/23 06/15/23 18:59 06:59 18:59 Output Total 1200 550 Balance -1200 -550 Weight 204.117 kg 179 kg Output: Urine 1200 550 Other: Voiding Method Indwelling Catheter Indwelling Catheter # Bowel Movements 0 - Exam PHYSICAL EXAMINATION: GENERAL: The patient is alert and oriented x3, not in any acute distress. Well developed, well nourished. HEENT: Pupils are round and equally reacting to light. EOMI. No scleral icterus. No conjunctival pallor. Normocephalic, atraumatic. No pharyngeal erythema. No thyromegaly. CARDIOVASCULAR: S1 and S2 present. No murmurs, rubs, or gallops. PULMONARY: Chest is clear to auscultation, no wheezing or crackles. ABDOMEN: Soft, nontender, nondistended, normoactive bowel sounds. No palpable organomegaly. MUSCULOSKELETAL: No joint swelling or deformity. EXTREMITIES: No cyanosis, clubbing, or pedal edema. NEUROLOGICAL: Gross neurological examination did not reveal any focal deficits. SKIN: No rashes. - Labs CBC & Chem 7: 06/14/23 11:31 06/15/23 06:54 Labs: Abnormal Lab Results - Last 24 Hours (Table) 06/14/23 06/14/23 06/14/23 Range/Units 11:31 11:31 11:31 Plt Count 138 L (150-450) k/uL Lymphocytes # 0.9 L (1.0-4.8) k/uL VBG pCO2 66 H (37-51) mmHg VBG HCO3 34 H (24-28) mmol/L Carbon Dioxide (22-30) mmol/L BUN (7-17) mg/dL Creatinine (0.52-1.04) mg/dL Troponin I (0.000-0.034) ng/mL Urine Protein 3+ H (Negative) Urine Mucus Rare H (None) /hpf 06/14/23 06/14/23 06/14/23 Range/Units 17:03 20:18 23:04 Plt Count (150-450) k/uL Lymphocytes # (1.0-4.8) k/uL VBG pCO2 (37-51) mmHg VBG HCO3 (24-28) mmol/L Carbon Dioxide (22-30) mmol/L BUN (7-17) mg/dL Creatinine (0.52-1.04) mg/dL Troponin I 0.050 H* 0.054 H* 0.074 H* (0.000-0.034) ng/mL Urine Protein (Negative) Urine Mucus (None) /hpf 06/15/23 Range/Units 06:54 Plt Count (150-450) k/uL Lymphocytes # (1.0-4.8) k/uL VBG pCO2 (37-51) mmHg VBG HCO3 (24-28) mmol/L Carbon Dioxide 32 H (22-30) mmol/L BUN 60 H (7-17) mg/dL Creatinine 3.09 H (0.52-1.04) mg/dL Troponin I (0.000-0.034) ng/mL Urine Protein (Negative) Urine Mucus (None) /hpf Assessment and Plan Assessment: 1. Acute exacerbation CHF - Patient has been placed on Lasix 40 mg IV every 12 hours; monitor strict KEENAN's, daily weights, low salt and fluid restricted diet - 2-D echo; consult cardiology 2. Acute renal injury; we will hold off on IV fluid hydration given CHF exacerbation - We will monitor strict KEENAN's, daily weights, renal function and electrolytes; avoid nephrotoxins and hypotension - We will consult nephrology if renal function continues to trend up 3. Elevated troponin; possibly demand ischemia related to hypoxia with CHF; AK I - We will trend troponin and monitor EKG; 2-D echo - Cardiology to evaluate and make further recommendations 4. Coronary artery disease; continue with home dose of aspirin and Imdur and metoprolol 5. Hypertension; metoprolol 100 mg daily, Imdur 30 mg daily 6. History of DVT; anticoagulated with L Dupree 5 mg twice a day 7. Obstructive sleep apnea; patient uses CPAP at home; we will continue
[2023-06-15 23:28] LABS: Hepatitis B Surface AB- Quant 3.5 mIU/mL; Hepatitis B Surface Antigen Nonreactive; Hepatitis C IgG Antibody Nonreactive
[2023-06-16 02:05] LABS: Glucose,Whole Blood 91 mg/dL (70-110)
[2023-06-16 02:36] LABS: ABG Base Excess 5.3 mmol/L; ABG HCO3 33 mmol/L (21-25); ABG Oxygen Saturation 84.2 % (94-97); ABG PH 7.24 (7.35-7.45); ABG TCO2 35 mmol/L (19-24); Allen Test Performed? Yes
[2023-06-16 02:49] LABS: Glucose,Whole Blood 113 mg/dL (70-110)
[2023-06-16 03:10] LABS: ABG PCO2 77 mmHg (35-45); ABG PO2 56 mmHg (83-108)
[2023-06-16 04:08] LABS: Anisocytosis Slight; Basophils % (A) 0 %; Eosinophils % (A) 0 %; HCT 40.9 % (34.0-46.0); Hypochromasia Marked; Lymphocytes # (A) 0.9 k/uL (1.0-4.8); Lymphocytes % (A) 11 %; MCH 22.6 pg (25.0-35.0); MCHC 26.9 g/dL (31.0-37.0); MCV 83.8 fL (80.0-100.0); Mean Platelet Volume 12.3; Microcytosis Slight; Monocytes # (A) 0.9 k/uL (0-1.0); Monocytes % (A) 11 %; Neutrophils # (A) 5.8 k/uL (1.3-7.7); Neutrophils % (A) 73 %; Platelet Count 136 k/uL (150-450); RBC 4.88 m/uL (3.80-5.40); WBC 7.9 k/uL (3.8-10.6)
[2023-06-16 04:15] LABS: ABG Base Excess 4.9 mmol/L; ABG HCO3 33 mmol/L (21-25); ABG Oxygen Saturation 95.9 % (94-97); ABG PO2 103 mmHg (83-108); ABG TCO2 36 mmol/L (19-24); Allen Test Performed? Yes
[2023-06-16 04:21] LABS: ABG PCO2 87 mmHg (35-45); ABG PH 7.19 (7.35-7.45)
[2023-06-16 04:25] LABS: African American GFR (CKD) 17 (>60 ml/min/1.73 sqM); Anion Gap 10 mmol/L; Blood Urea Nitrogen 67 mg/dL (7-17); Calcium 9.1 mg/dL (8.4-10.2); Carbon Dioxide 30 mmol/L (22-30); Chloride 102 mmol/L (98-107); Glucose 84 mg/dL (74-99); Magnesium 2.8 mg/dL (1.6-2.3); Non-African American GFR(CKD) 15 (>60 ml/min/1.73 sqM); Sodium 142 mmol/L (137-145)
[2023-06-16 04:39] LABS: Potassium 4.7 mmol/L (3.5-5.1)
--- NOTE | 2023-06-16 05:46 | XR ---
EXAM: XR Chest, 1 View CLINICAL HISTORY: ITS.REASON XR Reason: Resp distress TECHNIQUE: Frontal view of the chest. COMPARISON: Radiograph dated 06/14/2023 FINDINGS: Lungs: Grossly stable opacification of the mid to left lower lung. Increasing prominence of the pulmonary vasculature. Pleural space: Unremarkable. No pneumothorax. Heart: The cardiac silhouette is obscured. Mediastinum: Obscured. Bones/joints: Grossly unremarkable. IMPRESSION: 1. Likely multifocal left lobe pneumonia with concern for a left-sided pleural effusion. 2. Worsening pulmonary edema.
[2023-06-16 06:03] LABS: Glucose,Whole Blood 95 mg/dL (70-110)
[2023-06-16 06:26] LABS: Glucose,Whole Blood 88 mg/dL (70-110)
--- NOTE | 2023-06-16 08:39 | P.CNPUL ---
History of Present Illness Consult date: 06/16/23 Reason for consult: dyspnea History of present illness: Patient is a 48-year-old -[place] female with past medical history significant for CHF, hypertension, morbid obesity, obstructive sleep apnea without CPAP because it is broken, chronic oxygen dependence with 3 L/m nasal cannula mostly at night, previous ventilator dependent respiratory failure, hypertension, chronic kidney disease stage IV, left upper extremity lymphedema, anemia, and frequent urinary tract infections. Patient has frequent hospital admissions for congestive heart failure, hypercapnic respiratory failure and hypoxic respiratory failure. She was in the hospital back in April 2023 and the patient was discharged home on 05/24/2023 after being treated for decompensated respiratory failure, acute on top of chronic hypoxic and hypercapnic respiratory failure. The patient was at home. 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 She was brought into the hospital and she was admitted to the medical floor and overnight the patient became lethargic, confused, altered, and she developed an acute on top of chronic hypercapnic respiratory failure. Based on that, the patient got transferred to the intensive care unit. Initial blood gas showed a pH of 7.24 with a pCO2 of 77 and pO2 of 56 and this was on FiO2 of 32%. Currently the patient on a BiPAP at a pressure of 16/6 cm of water with FiO2 of 60%. Generator tidal volume is 450. The rate is at 14 with a minute ventilation of 6.7. The repeat blood gas showed a pH of 7.19 with a pCO2 of 87 and pO2 of 103. Chest x-ray shows cardiomegaly, and worsening pulmonary edema. Blood work shows a white cell c ount of 7.5, hemoglobin of 11 and a platelet count of 136. BUN is at 67 with a creatinine of 3.5 and a sodium level is at 142. The proBNP level is 11,600, troponins of 0.07, UA showed +3 protein is, the viral screen is negative. The patient is afebrile. She remains encephalopathic and lethargic at this point in time. She is able to tolerate the BiPAP without any major difficulties. Review of Systems ROS unobtainable: due to mental status Past Medical History Past Medical History: Coronary Artery Disease (CAD), Chest Pain / Angina, Heart Failure, Deep Vein Thrombosis (DVT), Hypertension, Osteoarthritis (OA), Renal Disease, Sleep Apnea/CPAP/BIPAP, Supraventricular Tachycardia (SVT) Additional Past Medical History / Comment(s): Pt recently admitted to [facility] on 07/03/22-07/15/22 with acute pulmonary edema. Other hx: Chronic CHF, home oxygen at 3L/NC prn, NIR/no device, previous ventilator dependent respiratory failure, sinus pauses, CKD stage IV, anemia, lymphedema, arthritis bilateral knees, hiatal hernia, diverticular disease, UTIs, constipation, urine and bowel incontinence. History of Any Multi-Drug Resistant Organisms: VRE Date of last positivie culture/infection: 05/03/20 MDRO Source:: VRE URINE Past Surgical History: Section, Hernia Repair Additional Past Surgical History / Comment(s): adominal hernia repair with mesh, cysts removed from stomach, EGD, colonoscopy Past Anesthesia/Blood Transfusion Reactions: No Reported Reaction Additional Past Anesthesia/Blood Transfusion Reaction / Comment(s): Pt has received blood in the past without reaction. Past Psychological History: Anxiety Smoking Status: Never smoker Past Alcohol Use History: None Reported Past Drug Use History: None Reported - Past Family History Father Family Medical History: Congestive Heart Failure (CHF) Additional Family Medical History / Comment(s): Father from CHF. Mother Family Medical History: Cancer, Hypertension, Sleep Apnea/CPAP/BIPAP Additional Family Medical History / Comment(s): Mother has had cancer removed from ear/head. Medications and Allergies Home Medications Medication Instructions Recorded Confirmed Type Omeprazole 20 mg PO DAILY 11/05/17 06/14/23 History Magnesium Oxide [Mag-Ox] 400 mg PO DAILY 12/19/22 06/14/23 History Folic Acid 1 mg PO DAILY #30 tab 12/28/22 06/14/23 Rx Furosemide [Lasix] 80 mg PO BID 05/09/23 06/14/23 History acetaZOLAMIDE [Diamox] 250 mg PO DAILY 05/09/23 06/14/23 History metOLazone [Zaroxolyn] 2.5 mg PO DAILY 05/09/23 06/14/23 History Amiodarone [Cordarone] 200 mg PO DAILY #30 tab 05/24/23 06/14/23 Rx Apixaban [Eliquis] 5 mg PO BID #60 tab 05/24/23 06/14/23 Rx Isosorbide Mononitrate ER [Imdur] 30 mg PO DAILY #30 tab 05/24/23 06/14/23 Rx Metoprolol Succinate (ER) [Toprol 100 mg PO DAILY 06/14/23 06/14/23 History Xl] Allergies Allergy/AdvReac Type Severity Reaction Status Date / Time No Known Allergies Allergy Verified 05/09/23 21:30 Physical Exam Vitals: Vital Signs Temp Pulse Pulse Resp BP BP Pulse Ox 06/16/23 08:00 98.4 F 75 19 130/93 90 L 06/16/23 07:42 06/16/23 07:00 65 20 135/56 99 06/16/23 06:00 68 21 120/54 92 L 06/16/23 05:00 71 24 123/78 06/16/23 04:28 06/16/23 04:00 73 21 118/75 87 L 06/16/23 03:00 98.4 F 74 25 H 131/94 99 06/16/23 02:49 06/15/23 19:34 98.4 F 84 17 157/89 94 L 06/15/23 15:00 98.9 F 92 21 164/88 92 L FiO2 06/16/23 08:00 60 06/16/23 07:42 60 06/16/23 07:00 60 06/16/23 06:00 60 06/16/23 05:00 60 06/16/23 04:28 60 06/16/23 04:00 60 06/16/23 03:00 40 06/16/23 02:49 40 06/15/23 19:34 06/15/23 15:00 Intake and Output 06/15/23 06/16/23 06/16/23 22:59 06:59 14:59 Output Total 400 30 35 Balance -400 -30 -35 Output: Urine 400 30 35 Other: Voiding Method Indwelling Catheter Indwelling Catheter Weight 179.8 kg No acute distress, nasal cannula. She is a morbidly obese female done a BiPAP at a pressure of 16/6 cm of water with FiO2 of 60%. The patient is currently and hypercapnic respiratory failure and CO2 narcosis and she is quite lethargic and encephalopathic. She is tolerating the BiPAP without adding any major difficulties. Head exam was generally normal. There was no scleral icterus or corneal arcus. Mucous membranes were moist. HEENT examination is grossly unremarkable. Neck supple. Full range of motion. No adenopathy thyromegaly or neck vein distention. Cardiovascular examination reveals irregular rhythm rate. S1-S2 normal. No S3 or S4. No discernible murmur noted. Lungs reveal scattered rhonchi and crackles. Breath sounds are equal bilaterally. No wheezes. Abdomen soft bowel sounds are heard. No masses or tenderness. Extremities are intact. No cyanosis or clubbing. Trace edema noted. Skin is without rash or lesion. Neurologic examination is difficult to evaluate. The patient is encephalopathic, lethargic, was also painful stimulation. Pupils are equally reactive to light. No facial asymmetry. Results - Laboratory Findings CBC and BMP: 06/16/23 03:16 06/16/23 03:16 ABG ABG pH 7.19 (7.35-7.45) L* 06/16/23 03:55 ABG pCO2 87 mmHg (35-45) H* 06/16/23 03:55 ABG pO2 103 mmHg (83-108) 06/16/23 03:55 ABG O2 Saturation 95.9 % (94-97) 06/16/23 03:55 PT/INR, D-dimer PT 12.0 sec (9.0-12.0) 06/14/23 11:31 INR 1.2 (<1.2) H 06/14/23 11:31 D-Dimer 3.34 mg/L FEU (<0.60) H 06/14/23 11:31 Abnormal lab findings: Abnormal Labs 06/14/23 06/14/23 06/14/23 11:31 11:31 11:31 Hgb MCH 22.8 L MCHC 27.5 L RDW 18.8 H Plt Count 138 L Lymphocytes # 0.9 L INR 1.2 H D-Dimer 3.34 H ABG pH ABG pCO2 ABG pO2 ABG HCO3 ABG Total CO2 ABG O2 Saturation VBG pCO2 VBG HCO3 Potassium Carbon Dioxide BUN Creatinine POC Glucose (mg/dL) Magnesium AST Troponin I Total Protein Urine Protein 3+ H Urine Mucus Rare H 06/14/23 06/14/23 06/14/23 11:31 11:31 11:31 Hgb MCH MCHC RDW Plt Count Lymphocytes # INR D-Dimer ABG pH ABG pCO2 ABG pO2 ABG HCO3 ABG Total CO2 ABG O2 Saturation VBG pCO2 66 H VBG HCO3 34 H Potassium 5.2 H Carbon Dioxide 35 H BUN 61 H Creatinine 2.98 H POC Glucose (mg/dL) Magnesium AST 77 H Troponin I 0.047 H* Total Protein 9.2 H Urine Protein Urine Mucus 06/14/23 06/14/23 06/14/23 17:03 20:18 23:04 Hgb MCH MCHC RDW Plt Count Lymphocytes # INR D-Dimer ABG pH ABG pCO2 ABG pO2 ABG HCO3 ABG Total CO2 ABG O2 Saturation VBG pCO2 VBG HCO3 Potassium Carbon Dioxide BUN Creatinine POC Glucose (mg/dL) Magnesium AST Troponin I 0.050 H* 0.054 H* 0.074 H* Total Protein Urine Protein Urine Mucus 06/15/23 06/16/23 06/16/23 06:54 02:32 02:47 Hgb MCH MCHC RDW Plt Count Lymphocytes # INR D-Dimer ABG pH 7.24 L ABG pCO2 77 H* ABG pO2 56 L* ABG HCO3 33 H ABG Total CO2 35 H ABG O2 Saturation 84.2 L VBG pCO2 VBG HCO3 Potassium Carbon Dioxide 32 H BUN 60 H Creatinine 3.09 H POC Glucose (mg/dL) 113 H Magnesium AST Troponin I Total Protein Urine Protein Urine Mucus 06/16/23 06/16/23 06/16/23 03:16 03:16 03:55 Hgb 11.0 L MCH 22.6 L MCHC 26.9 L RDW 19.0 H Plt Count 136 L Lymphocytes # 0.9 L INR D-Dimer ABG pH 7.19 L* ABG pCO2 87 H* ABG pO2 ABG HCO3 33 H ABG Total CO2 36 H ABG O2 Saturation VBG pCO2 VBG HCO3 Potassium Carbon Dioxide BUN 67 H Creatinine 3.52 H POC Glucose (mg/dL) Magnesium 2.8 H AST Troponin I Total Protein Urine Protein Urine Mucus - Diagnostic Findings Chest x-ray: image reviewed Assessment and Plan Plan: Acute on chronic hypoxemic and hypercapnic respiratory failure related to an exacerbation of diastolic congestive heart failure. Chest x-ray on admission appeared consistent with pulmonary edema. Most recent repeat echocardiogram shows a severely increased left ventricular wall thickness, with a preserved ejection fraction of 50-55%, and was otherwise a limited exam. The proBNP level is elevated. The blood gases showing an acute on top of chronic hypercapnic respiratory failure, currently on a BiPAP at a pressure of 16/6 cm of water with an FiO2 of 60%. Diminished level of consciousness secondary to above essentially related to hypercapnic respiratory failure Fall Morbid obesity Hypertensive Elevated troponins, likely related to above. No specific Acute on chronic kidney injury, creatinine is stable for now and the patient is underlying chronic kidney disease Obstructive sleep apnea, noncompliant with CPAP. Utilizes 3 L/m nasal cannula mostly at night. Severe morbid obesity with a BMI of 75 kg/m. History of ventilator dependent respiratory failure. Chronic kidney disease, stage IV. Anemia of chronic disease. Left upper extremity lymphedema. History of DVT. Plan: Continue BiPAP for now the same settings of 16/6 cm of water with an FiO2 of 60% Start the patient on Bumex drip at 0.5 mg an hour Fluid restriction For a catheter monitor urine output Establish a triple-lumen catheter Continue anticoagulation with Eliquis once the patient is able to take oral medication. The patient currently has a normal sinus rhythm. Monitor renal function and electrolytes. Stop Diamox for now High risk for intubation mechanical ventilation. We'll continue to follow make further recommendations based on her progress. Condition is critical at this point in time. Time with Patient: Greater than 30
--- NOTE | 2023-06-16 08:53 | P.PCN ---
Date of Procedure: 06/16/23 Preoperative Diagnosis: Acute hypoxic/hypercapnic respiratory failure Postoperative Diagnosis: Same Procedure(s) Performed: Central line Anesthesia: local Bear Keeper #1: Mery Catalan Estimated Blood Loss (ml): 0 Condition: critical Disposition: ICU Operative Findings: Indication: Hemodynamic monitoring/Intravenous access. A time-out was completed verifying correct patient, procedure, site, positioning, and implant(s) or special equipment if applicable. The patient was placed in a dependent position appropriate for central line placement based on the vein to be cannulated. The patientÂ´s right neck was prepped and draped in sterile fashion. 1% Lidocaine was used to anesthetize the surrounding skin area. A triple lumen 9F Cordis catheter was introduced into the right internal jugular vein using Seldinger technique. The catheter was threaded smoothly over the guide wire and appropriate blood return was obtained. Each lumen of the catheter was evacuated of air and flushed with sterile saline. The catheter was then sutured in place to the skin and a sterile dressing applied. Perfusion to the extremity distal to the point of catheter insertion was checked and found to be adequate. The patient tolerated the procedure well and there were no complications.
--- NOTE | 2023-06-16 09:31 | XR ---
EXAMINATION TYPE: XR chest 1V portable DATE OF EXAM: 06/16/2023 COMPARISON: NONE HISTORY: Shortness of breath FINDINGS: Noted is pulmonary venous congestion with scattered infiltrates. There is also cardiomegaly and small effusions. Right IJ central venous line with distal tip overlying the SVC. No evidence for pneumothorax. IMPRESSION: Findings compatible with acute pulmonary edema. Infiltrates of other etiology are not excluded. Clinical correlation and progress studies are recommended.
--- NOTE | 2023-06-16 10:09 | P.PN ---
Subjective Patient is seen for follow-up of acute kidney injury on top of chronic kidney disease. 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 Previous workup about 2 years ago was negative. Serologies have been reordered. Patient was transferred to the ICU due to worsening mentation and CO2 narcosis. She is currently maintained on BiPAP. Patient is being started on Bumex drip. Urine output at 1200 mL for last 24 hours. Serum creatinine 3.5 from 2.9 on admission. Baseline creatinine is around 3-3.3 mg/dL as per her recent hospitalization last month. Previously serum creatinine had been around 2.2-2.5 mg/dL Objective - Vital Signs Vital signs: Vital Signs Temp 98.4 F 06/16/23 08:00 Pulse 75 06/16/23 08:00 Resp 19 06/16/23 08:00 BP 130/93 06/16/23 08:00 Pulse Ox 90 L 06/16/23 08:00 FiO2 60 06/16/23 08:00 Intake & Output 06/15/23 06/16/23 06/16/23 18:59 06:59 18:59 Intake Total 540 Output Total 800 180 35 Balance -260 -180 -35 Weight 179 kg 179.8 kg Intake: Oral 540 Output: Urine 800 180 35 Other: Voiding Method Indwelling Catheter Indwelling Catheter - Exam Patient is responsive to painful stimuli. She is maintained on BiPAP examination of the heart S1 and S2 Examination of the lungs bilateral breath sounds are heard Abdomen is morbidly obese Examination lower extremity shows edema 2+ bilaterally FLASK CARRIER exam shows patient only responsive to painful stimuli. - Labs CBC & Chem 7: 06/16/23 03:16 06/16/23 03:16 Labs: Abnormal Lab Results - Last 24 Hours (Table) 06/16/23 06/16/23 06/16/23 Range/Units 02:32 02:47 03:16 Hgb 11.0 L (11.4-16.0) gm/dL MCH 22.6 L (25.0-35.0) pg MCHC 26.9 L (31.0-37.0) g/dL RDW 19.0 H (11.5-15.5) % Plt Count 136 L (150-450) k/uL Lymphocytes # 0.9 L (1.0-4.8) k/uL ABG pH 7.24 L (7.35-7.45) ABG pCO2 77 H* (35-45) mmHg ABG pO2 56 L* (83-108) mmHg ABG HCO3 33 H (21-25) mmol/L ABG Total CO2 35 H (19-24) mmol/L ABG O2 Saturation 84.2 L (94-97) % BUN (7-17) mg/dL Creatinine (0.52-1.04) mg/dL POC Glucose (mg/dL) 113 H (70-110) mg/dL Magnesium (1.6-2.3) mg/dL 06/16/23 06/16/23 Range/Units 03:16 03:55 Hgb (11.4-16.0) gm/dL MCH (25.0-35.0) pg MCHC (31.0-37.0) g/dL RDW (11.5-15.5) % Plt Count (150-450) k/uL Lymphocytes # (1.0-4.8) k/uL ABG pH 7.19 L* (7.35-7.45) ABG pCO2 87 H* (35-45) mmHg ABG pO2 (83-108) mmHg ABG HCO3 33 H (21-25) mmol/L ABG Total CO2 36 H (19-24) mmol/L ABG O2 Saturation (94-97) % BUN 67 H (7-17) mg/dL Creatinine 3.52 H (0.52-1.04) mg/dL POC Glucose (mg/dL) (70-110) mg/dL Magnesium 2.8 H (1.6-2.3) mg/dL Assessment and Plan Assessment: 1. Acute kidney injury cardiorenal. Blood pressure is not low. Currently with indwelling Colon catheter. Continue to diurese aggressively given the significant CO2 narcosis. 2. Chronic kidney disease NKF stage IIIB with baseline creatinine around 2 mg/dL. 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 Possible FSGS. Previous workup was negative in 2020. No history of diabetes. Urine protein creatinine ratio 1.0 on 01/24/2022. This will be repeated including baseline workup. 3. Volume overload 4. Acute on chronic diastolic CHF. 5. Morbid obesity 6. Encephalopathy secondary to CO2 narcosis 7. Acute hypercapnic respiratory failure maintained on BiPAP Plan: Agree with Bumex drip DC IV Lasix Repeat labs in a.m. We may need to proceed with hemodialysis if there is no improvement in volume status.
[2023-06-16] MEDS: BUMETANIDE 10 MG in DEXTROSE 5% IN WATER 60 ML IV SCH ×2 (10:20)
[2023-06-16] MEDS: FUROSEMIDE 10 MG/ML 4 ML VIAL IV SCH (10:53)
[2023-06-16 11:57] LABS: Glucose,Whole Blood 79 mg/dL (70-110)
[2023-06-16 14:45] LABS: Glucose,Whole Blood 70 mg/dL (70-110)
--- NOTE | 2023-06-16 15:35 | P.PN ---
Subjective Progress Note Date: 06/16/23 48-year-old female with a past medical history significant for CHF, hypertension, morbid obesity, obstructive sleep apnea, oxygen dependence with 3 L/m is okay and mostly at night, prior ventilator respiratory failure, chronic kidney disease stage IV. Prior echo showed EF at 50-55%. Patient presents to the ED with a chief complaint of myalgias. Patient states yesterday sister cleaned patient's bed. During this, was guided to a chair while the bed was being cleaned. States was walked back by boys when she lost her balance and fell forward. Was guided to the floor. Denies head injury at this time. Now notes myalgias. Denies any pain of any of her specific extremities. Patient also notes that she is more short of breath than usual starting last night. Denies chest pain or headache. No other complaints. 06/16/2023 Patient is seen and evaluated in room at bedside; transferred to ICU due to altered mental status resulting from acute on chronic hypoxic/hypercapnic respiratory failure, likely related to CHF exacerbation Vital signs are reviewed and remained stable with temperature of 98.4, pulse 75, respiration 19 and blood pressure of 130/93 with O2 saturation around 90% Blood work reveals WBC of 7.9, hemoglobin of 11 and platelet count of 136, sodium 142, potassium, BUN/creatinine of 67/0.5 patient has been placed on BiPAP and IV Bumex infusion at a rate of 0.5 mg per hour; continue to monitor strict KEENAN's, daily weights, renal function; avoid nephrotoxins and hypotension Patient remains lethargic; likely related to hypercapnic respiratory failure; patient remains on a BiPAP -- Troponin has been trended but remains flat; likely related to hypoxia and acute on chronic renal failure; cardiology has signed off Objective - Vital Signs Vital signs: Vital Signs Temp 98.2 F 06/16/23 12:00 Pulse 64 06/16/23 13:00 Resp 12 06/16/23 13:00 BP 136/85 06/16/23 13:00 Pulse Ox 98 06/16/23 13:00 FiO2 50 06/16/23 12:00 Intake & Output 06/15/23 06/16/23 06/16/23 18:59 06:59 18:59 Intake Total 540 30 Output Total 800 180 335 Balance -260 -180 -305 Weight 179 kg 179.8 kg Intake: IV 30 .9 NS 15 Bumetanide 10 mg In 15 Dextrose 5% in Water 60 ml @ 0.5 MG/HR 5 mls/hr IV .Q20H [facility] Rx#: [id number] Oral 540 Output: Urine 800 180 335 Other: Voiding Method Indwelling Catheter Indwelling Catheter Indwelling Catheter - Exam PHYSICAL EXAMINATION: GENERAL: The patient is alert and oriented x3, not in any acute distress. Well developed, well nourished. HEENT: Pupils are round and equally reacting to light. EOMI. No scleral icterus. No conjunctival pallor. Normocephalic, atraumatic. No pharyngeal erythema. No thyromegaly. CARDIOVASCULAR: S1 and S2 present. No murmurs, rubs, or gallops. PULMONARY: Chest is clear to auscultation, no wheezing or crackles. ABDOMEN: Soft, nontender, nondistended, normoactive bowel sounds. No palpable organomegaly. MUSCULOSKELETAL: No joint swelling or deformity. EXTREMITIES: No cyanosis, clubbing, or pedal edema. NEUROLOGICAL: Gross neurological examination did not reveal any focal deficits. SKIN: No rashes. - Labs CBC & Chem 7: 06/16/23 03:16 06/16/23 03:16 Labs: Abnormal Lab Results - Last 24 Hours (Table) 06/16/23 06/16/23 06/16/23 Range/Units 02:32 02:47 03:16 Hgb 11.0 L (11.4-16.0) gm/dL MCH 22.6 L (25.0-35.0) pg MCHC 26.9 L (31.0-37.0) g/dL RDW 19.0 H (11.5-15.5) % Plt Count 136 L (150-450) k/uL Lymphocytes # 0.9 L (1.0-4.8) k/uL ABG pH 7.24 L (7.35-7.45) ABG pCO2 77 H* (35-45) mmHg ABG pO2 56 L* (83-108) mmHg ABG HCO3 33 H (21-25) mmol/L ABG Total CO2 35 H (19-24) mmol/L ABG O2 Saturation 84.2 L (94-97) % BUN (7-17) mg/dL Creatinine (0.52-1.04) mg/dL POC Glucose (mg/dL) 113 H (70-110) mg/dL Magnesium (1.6-2.3) mg/dL 06/16/23 06/16/23 Range/Units 03:16 03:55 Hgb (11.4-16.0) gm/dL MCH (25.0-35.0) pg MCHC (31.0-37.0) g/dL RDW (11.5-15.5) % Plt Count (150-450) k/uL Lymphocytes # (1.0-4.8) k/uL ABG pH 7.19 L* (7.35-7.45) ABG pCO2 87 H* (35-45) mmHg ABG pO2 (83-108) mmHg ABG HCO3 33 H (21-25) mmol/L ABG Total CO2 36 H (19-24) mmol/L ABG O2 Saturation (94-97) % BUN 67 H (7-17) mg/dL Creatinine 3.52 H (0.52-1.04) mg/dL POC Glucose (mg/dL) (70-110) mg/dL Magnesium 2.8 H (1.6-2.3) mg/dL Assessment and Plan Assessment: 1. Acute exacerbation CHF - Patient has been placed on Lasix 40 mg IV every 12 hours; monitor strict KEENAN's, daily weights, low salt and fluid restricted diet - 2-D echo; consult cardiology 2. Acute renal injury; we will hold off on IV fluid hydration given CHF ex acerbation - We will monitor strict KEENAN's, daily weights, renal function and electrolytes; avoid nephrotoxins and hypotension - We will consult nephrology if renal function continues to trend up 3. Elevated troponin; possibly demand ischemia related to hypoxia with CHF; AK I - We will trend troponin and monitor EKG; 2-D echo - Cardiology to evaluate and make further recommendations 4. Coronary artery disease; continue with home dose of aspirin and Imdur and metoprolol 5. Hypertension; metoprolol 100 mg daily, Imdur 30 mg daily 6. History of DVT; anticoagulated with L Dupree 5 mg twice a day 7. Obstructive sleep apnea; patient uses CPAP at home; we will continue
[2023-06-16] MEDS ORDERED: DEXTROSE 50% SYRINGE 50 ML IVP ONE (15:51)
[2023-06-16 16:16] LABS: Glucose,Whole Blood 97 mg/dL (70-110)
[2023-06-16] MEDS: APIXABAN 5 MG TAB PO SCH ×2 (16:28→20:49)
[2023-06-16 18:25] LABS: Glucose,Whole Blood 88 mg/dL (70-110)
[2023-06-16] MEDS ORDERED: DEXTROSE 50% SYRINGE 50 ML IVP PRN ×2 (18:39)
[2023-06-16] MEDS: MAGNESIUM OXIDE 400 MG TAB PO SCH (18:57)
[2023-06-16] MEDS: FOLIC ACID 1 MG TAB PO SCH (18:57)
[2023-06-16 20:37] LABS: Glucose,Whole Blood 76 mg/dL (70-110)
[2023-06-16] MEDS: AMIODARONE 200 MG TAB PO SCH (20:48)
[2023-06-16] MEDS: ISOSORBIDE MONONITRATE ER 30 MG TAB.ER.24H PO SCH (20:48)
[2023-06-16] MEDS: METOPROLOL SUCCINATE (ER) 100 MG TAB.ER.24H PO SCH (20:49)
[2023-06-16 21:25] LABS: Glucose,Whole Blood 81 mg/dL (70-110)
[2023-06-16] MEDS: HYDROmorphone 0.5 MG/0.5 ML SYRINGE IVP PRN (23:11)
[2023-06-17 00:22] LABS: Glucose,Whole Blood 97 mg/dL (70-110)
[2023-06-17] MEDS: NOREPINEPHRINE 4 MG in SODIUM CHLORIDE 0.9% 250 ML IV SCH ×2 (00:40→16:09)
[2023-06-17 05:08] LABS: Glucose,Whole Blood 76 mg/dL (70-110)
[2023-06-17] MEDS: BUMETANIDE 10 MG in DEXTROSE 5% IN WATER 60 ML IV SCH ×4 (05:25→08:25)
[2023-06-17] MEDS: HYDROmorphone 0.5 MG/0.5 ML SYRINGE IVP PRN ×2 (05:54→16:37)
[2023-06-17 06:04] LABS: African American GFR (CKD) 15 (>60 ml/min/1.73 sqM); Anion Gap 7 mmol/L; Blood Urea Nitrogen 74 mg/dL (7-17); Calcium 8.8 mg/dL (8.4-10.2); Carbon Dioxide 32 mmol/L (22-30); Chloride 102 mmol/L (98-107); Glucose 83 mg/dL (74-99); Non-African American GFR(CKD) 13 (>60 ml/min/1.73 sqM); Sodium 141 mmol/L (137-145)
[2023-06-17 06:08] LABS: Potassium 4.4 mmol/L (3.5-5.1)
[2023-06-17 06:56] LABS: Anisocytosis Slight; Basophils % (A) 0 %; Eosinophils # (A) 0.1 k/uL (0-0.7); Eosinophils % (A) 1 %; HCT 39.4 % (34.0-46.0); HGB 10.6 gm/dL (11.4-16.0); Hypochromasia Marked; Lymphocytes # (A) 1.1 k/uL (1.0-4.8); Lymphocytes % (A) 10 %; MCH 22.7 pg (25.0-35.0); MCV 84.1 fL (80.0-100.0); Mean Platelet Volume 9.8; Microcytosis Slight; Monocytes # (A) 0.7 k/uL (0-1.0); Monocytes % (A) 7 %; Neutrophils # (A) 8.7 k/uL (1.3-7.7); Neutrophils % (A) 80 %; Platelet Count 147 k/uL (150-450); RBC 4.69 m/uL (3.80-5.40); RDW 19.1 % (11.5-15.5)
--- NOTE | 2023-06-17 08:15 | XR ---
EXAMINATION TYPE: XR chest 1V DATE OF EXAM: 06/17/2023 6:15 AM CLINICAL INDICATION:Female, 48 years old with history of Hypoxia; COMPARISON: Chest radiographs from 07/16/2023 TECHNIQUE: XR chest 1V Frontal view of the chest. FINDINGS: Lungs/Pleura: There is no evidence of pleural effusion, focal consolidation, or pneumothorax. Pulmonary vascularity: Pulmonary vascular congestion. Heart/mediastinum: Cardiomediastinal silhouette is enlarged and stable. Musculoskeletal: No acute osseous pathology. Other findings: None Lines/Tubes: Right internal jugular central venous catheter with distal tip at the cavoatrial junction. IMPRESSION: Cardiomegaly and mild pulmonary vascular congestion. Correlate with BNP for congestive heart failure.
[2023-06-17 08:17] LABS: Glucose,Whole Blood 86 mg/dL (70-110)
--- NOTE | 2023-06-17 08:25 | P.PN ---
Subjective Patient is seen in follow-up for acute kidney injury on chronic kidney disease. Renal function worsening. Bumex drip held last night due to low blood pressures. She was started on Levophed which is now on hold. Vital signs are stable. General: Resting in bed. HEENT: Head exam is unremarkable. On BiPAP. LUNGS: Scattered rhonchi. HEART: Rate and Rhythm are regular. ABDOMEN: Soft, obese. EXTREMITITES: 1+ edema. Objective - Vital Signs Vital signs: Vital Signs Temp 97.8 F 06/17/23 04:00 Pulse 77 06/17/23 07:00 Resp 12 06/17/23 07:00 BP 96/59 06/17/23 07:00 Pulse Ox 93 L 06/17/23 06:00 FiO2 60 06/17/23 07:31 Intake & Output 06/16/23 06/17/23 06/17/23 18:59 06:59 18:59 Intake Total 90 256.912 20 Output Total 1065 650 5 Balance -975 -393.088 15 Weight 184.244 kg Intake: IV 90 75 5 .9 NS 45 55 5 Bumetanide 10 mg In 45 20 Dextrose 5% in Water 60 ml @ 0.5 MG/HR 5 mls/hr IV .Q20H [facility] Rx#: [id number] Intake, IV Titration 106.912 Amount Bumetanide 10 mg In 70.833 Dextrose 5% in Water 60 ml @ 0.5 MG/HR 5 mls/hr IV .Q20H [facility] Rx#: [id number] Norepinephrine 4 mg In 36.079 Sodium Chloride 0.9% 250 ml @ 0.03 MCG/KG/MIN 20. 551 mls/hr IV .[id number] [facility] Rx#:[id number] Oral 75 15 Output: Urine 1065 650 5 Other: Voiding Method Indwelling Catheter Indwelling Catheter - Labs CBC & Chem 7: 06/17/23 06:38 06/17/23 05:24 Labs: Abnormal Lab Results - Last 24 Hours (Table) 06/17/23 06/17/23 Range/Units 05:24 06:38 WBC 11.0 H (3.8-10.6) k/uL Hgb 10.6 L (11.4-16.0) gm/dL MCH 22.7 L (25.0-35.0) pg MCHC 27.0 L (31.0-37.0) g/dL RDW 19.1 H (11.5-15.5) % Plt Count 147 L (150-450) k/uL Neutrophils # 8.7 H (1.3-7.7) k/uL Carbon Dioxide 32 H (22-30) mmol/L BUN 74 H (7-17) mg/dL Creatinine 3.80 H (0.52-1.04) mg/dL Assessment and Plan Plan: Assessment: 1. Acute kidney injury secondary to ATN secondary to hypotension and cardiorenal syndrome. Creatinine 3.8 today. No hydronephrosis noted on CAT scan done November 2022. 2. Chronic kidney disease stage IIIB with baseline creatinine near 2. Serologies negative in the past. Repeat pending. UPC 1 g. 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 Doubt nephrotic syndrome as patient's albumin level was 4.1 dated 06/14/2023. 3. Acute on chronic diastolic CHF. 4. Volume overload. 5. Acute on chronic hypercapnic respiratory failure on BiPAP. Plan: Resume Bumex drip. Monitor respiratory status. May need to be intubated. Follow-up serologies. Check renal ultrasound. Avoid nephrotoxins. May need to resume Levophed. If no improvement in renal function and urine output in the next 24 hours, will initiate renal replacement therapy. Case discussed with intensivkrish
[2023-06-17 08:42] LABS: ABG Base Excess 4.7 mmol/L; ABG HCO3 33 mmol/L (21-25); ABG Oxygen Saturation 90.7 % (94-97); ABG PH 7.22 (7.35-7.45); ABG PO2 68 mmHg (83-108); ABG TCO2 35 mmol/L (19-24); Allen Test Performed? Yes
[2023-06-17 08:45] LABS: ABG PCO2 80 mmHg (35-45)
[2023-06-17] MEDS: APIXABAN 5 MG TAB PO SCH ×3 (09:32→12:13)
[2023-06-17] MEDS: FOLIC ACID 1 MG TAB PO SCH ×2 (09:32→09:48)
[2023-06-17] MEDS: PANTOPRAZOLE 40 MG/10 ML VIAL IVP SCH (09:32)
[2023-06-17] MEDS: MAGNESIUM OXIDE 400 MG TAB PO SCH ×2 (09:32→09:48)
[2023-06-17] MEDS: ISOSORBIDE MONONITRATE ER 30 MG TAB.ER.24H PO SCH ×2 (09:32→09:48)
[2023-06-17] MEDS: METOPROLOL SUCCINATE (ER) 100 MG TAB.ER.24H PO SCH ×2 (09:32→09:48)
[2023-06-17] MEDS: AMIODARONE 200 MG TAB PO SCH ×2 (09:32→09:47)
--- NOTE | 2023-06-17 10:27 | US ---
EXAMINATION TYPE: US kidneys/renal and bladder DATE OF EXAM: 06/17/2023 Exam done portable in ICU COMPARISON: CT 2022, US 2021 CLINICAL INDICATION: Female, 48 years old with history of letty; EXAM MEASUREMENTS: Right Kidney: 10.7 x 5.5 x 4.8 cm Left Kidney: not seen Extremely difficult and limited study due to morbidly obese patient Right Kidney: 2.4cm cystic area superior pole Left Kidney: not seen due to body habitus and overlying bowel gas Bladder: not imaged due to patient sitting up in bed No hydronephrosis involving the right kidney. Simple appearing cyst within the superior pole the righ t kidney. No nephrolithiasis identified. No definitive solid mass within limitations. The left kidney or bladder not visualized due to overlying bowel gas and patient body habitus. IMPRESSION: Limited examination due to patient's body habitus. 1. No hydronephrosis involving the right kidney. 2. Nonvisualization of the left kidney and urinary bladder due to patient's body habitus and overlyin g bowel gas.
--- NOTE | 2023-06-17 11:11 | P.PN ---
Subjective Progress Note Date: 06/17/23 Principal diagnosis: Acute on chronic hypoxic and hypercapnic respiratory failure secondary to Acute on chronic diastolic congestive heart failure Patient is a 48-year-old -Congolese female with past medical history significant for CHF, hypertension, morbid obesity, obstructive sleep apnea without CPAP because it is broken, chronic oxygen dependence with 3 L/m nasal c annula mostly at night, previous ventilator dependent respiratory failure, hypertension, chronic kidney disease stage IV, left upper extremity lymphedema, anemia, and frequent urinary tract infections. Patient has frequent hospital admissions for congestive heart failure, hypercapnic respiratory failure and hypoxic respiratory failure. She was in the hospital back in April 2023 and the patient was discharged home on 05/24/2023 after being treated for decompensated respiratory failure, acute on top of chronic hypoxic and hypercapnic respiratory failure. The patient was at home. 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 She was brought into the hospital and she was admitted to the medical floor and overnight the patient became lethargic, confused, altered, and she developed an acute on top of chronic hypercapnic respiratory failure. Based on that, the patient got transferred to the intensive care unit. Initial blood gas showed a pH of 7.24 with a pCO2 of 77 and pO2 of 56 and this was on FiO2 of 32%. Currently the patient on a BiPAP at a pressure of 16/6 cm of water with FiO2 of 60%. Generator tidal volume is 450. The rate is at 14 with a minute ventilation of 6.7. The repeat blood gas showed a pH of 7.19 with a pCO2 of 87 and pO2 of 103. Chest x-ray shows cardiomegaly, and worsening pulmonary edema. Blood work shows a white cell count of 7.5, hemoglobin of 11 and a platelet count of 136. BUN is at 67 with a creatinine of 3.5 and a sodium level is at 142. The proBNP level is 11,600, troponins of 0.07, UA showed +3 protein is, the viral screen is negative. The patient is afebrile. She remains encephalopathic and lethargic at this point in time. She is able to tolerate the BiPAP without any major difficulties. Patient was reevaluated today on 06/17/2023, remains in the ICU, very poor marginal pulmonary status at best. Patient remains on BiPAP 16/6 at 50% FiO2 however I was able to cut down the FiO2 down to 40%. ABG showed a pO2 of 68 pCO2 of 80 pH of 7.22, patient seems to be comfortable in spite of her abnormal ABG. Chest x-ray is showing evidence of worsening congestive heart failure. Her blood pressure is marginal patient is on norepinephrine drip, and 0.03 mcg/kg/m she is also on Bumex which I have restarted this morning at 0.5 mg per hour. Patient is also on amiodarone, eliquis, Dilaudid, metoprolol which needs to be placed on hold if her blood pressure is marginal patient is also on Protonix. Electrolytes are basically normal except for bicarb of 32 BUN is 74 creatinine 3.80 showing deteriorating and worsening renal status. WBC count is 11 hemoglobin is 10.6. Renal ultrasound showed no evidence of hydronephrosis however the left kidney could not be visualized. Mostly because of the patient's habitus and overlying bowel gas. Objective - Vital Signs Vital signs: Vital Signs Temp 98.2 F 06/17/23 08:00 Pulse 71 06/17/23 10:00 Resp 13 06/17/23 10:00 BP 140/62 06/17/23 10:00 Pulse Ox 98 06/17/23 10:00 FiO2 40 06/17/23 10:00 Intake & Output 06/16/23 06/17/23 06/17/23 18:59 06:59 18:59 Intake Total 90 256.912 50 Output Total 1065 650 90 Balance -975 -393.088 -40 Weight 184.244 kg Intake: IV 90 75 35 .9 NS 45 55 35 Bumetanide 10 mg In 45 20 Dextrose 5% in Water 60 ml @ 0.5 MG/HR 5 mls/hr IV .Q20H [facility] Rx#: [id number] Intake, IV Titration 106.912 0 Amount Bumetanide 10 mg In 70.833 0 Dextrose 5% in Water 60 ml @ 0.5 MG/HR 5 mls/hr IV .Q20H [facility] Rx#: [id number] Norepinephrine 4 mg In 36.079 Sodium Chloride 0.9% 250 ml @ 0.03 MCG/KG/MIN 20. 551 mls/hr IV .[id number] [facility] Rx#:[id number] Oral 75 15 Output: Urine 1065 650 90 Other: Voiding Method Indwelling Catheter Indwelling Catheter Indwelling Catheter - Exam Physical Exam: Revealed a morbidly obese female in mild respiratory distress, on BiPAP. Head: Atraumatic, normocephalic, short obese neck was noted. HEENT:[Neck is supple.] [No neck masses.] [No thyromegaly.] [No JVD.] Right IJ triple-lumen catheter is noted. Chest: [Scattered crackles and rhonchi noted bilaterally. Cardiac Exam: Irregular irregular rhythm. [Normal S1 and S2, no S3 gallop, no murmur.] Abdomen: [Obese, Soft, nontender, no megaly, no rebound, no guarding, normal bowel sounds.] Extremities: [No clubbing, 2+ bipedal edema, no cyanosis.] Diminished distal pulses bilaterally. Neurological Exam: Alert and oriented 3. [No focal neurologic deficit.] Psychiatric: Normal mood affect and normal mental status examination. Skin: No rashes. - Labs CBC & Chem 7: 06/17/23 06:38 06/17/23 05:24 Labs: Abnormal Lab Results - Last 24 Hours (Table) 06/17/23 06/17/23 06/17/23 Range/Units 05:24 06:38 08:40 WBC 11.0 H (3.8-10.6) k/uL Hgb 10.6 L (11.4-16.0) gm/dL MCH 22.7 L (25.0-35.0) pg MCHC 27.0 L (31.0-37.0) g/dL RDW 19.1 H (11.5-15.5) % Plt Count 147 L (150-450) k/uL Neutrophils # 8.7 H (1.3-7.7) k/uL ABG pH 7.22 L (7.35-7.45) ABG pCO2 80 H* (35-45) mmHg ABG pO2 68 L (83-108) mmHg ABG HCO3 33 H (21-25) mmol/L ABG Total CO2 35 H (19-24) mmol/L ABG O2 Saturation 90.7 L (94-97) % Carbon Dioxide 32 H (22-30) mmol/L BUN 74 H (7-17) mg/dL Creatinine 3.80 H (0.52-1.04) mg/dL Assessment and Plan Assessment: Impression: Acute on chronic hypoxic and hypercapnic respiratory failure secondary to acute on chronic diastolic congestive heart failure/pulmonary edema. Patient had multiple echocardiograms, obviously it is difficult to determine exact ejection fraction, and ejection fractions have been as low as 50% and as high as 60% over the last 6 months. Echocardiogram in November showed ejection fraction of 30-35%. No echocardiogram has been done on this admission. Morbid obesity, BMI of 75 Acute metabolic encephalopathy secondary to hypoxia and hypercapnia Benign essential hypertension Acute on chronic kidney disease injury patient does have a chronic underlying kidney disease Obstructive sleep apnea, noncompliant with CPAP History of respiratory failure requiring mechanical ventilation Chronic kidney disease stage IV Anemia of chronic disease Chronic left upper extremity lymphedema History of DVT Chronic atrial fibrillation Recommendation: Continue to monitor in the ICU Continue BiPAP titrate FiO2 down maintaining O2 saturation chest above 90% Continue Bumex infusion Continue norepinephrine and titrate accordingly maintaining a mean arterial pressure of 65 Discussed with nephrology, patient may have to be considered for renal repl acement therapy Continue eliquis/anticoagulation Remains critically ill Remains high risk for intubation mechanical ventilation We will continue to follow and monitor in the ICU. Critically ill, critical care time is over 30 minutes Time with Patient: Greater than 30
[2023-06-17 11:55] LABS: Glucose,Whole Blood 81 mg/dL (70-110)
[2023-06-17 14:35] LABS: C-ANCA <1:20 Titer (<1:20)
[2023-06-17 16:19] LABS: Glucose,Whole Blood 79 mg/dL (70-110)
[2023-06-17 20:00] LABS: DNA Double-Stranded Negative (Negative)
[2023-06-17 20:51] LABS: Glucose,Whole Blood 80 mg/dL (70-110)
[2023-06-17] MEDS: APIXABAN 2.5 MG TABLET PO SCH (21:30)
--- NOTE | 2023-06-18 00:04 | PN ---
PROGRESS NOTE DATE OF SERVICE: 06/17/2023 SUBJECTIVE: This 48-year-old woman was admitted with shortness of breath also, on a Bumex drip at this time. The patient also had acute respiratory failure, patient on BiPAP 16, 6, and 40% FiO2. The patient apparently received Dilaudid, resulted in low blood pressure. The patient is on pressor support as well. The patient is closely monitored in the ICU. PAST MEDICAL HISTORY: Reviewed. REVIEW OF SYSTEMS: Could not be taken as the patient is sedated. CURRENT MEDICATIONS: Reviewed include Levophed, dose and rest of medications noted. PHYSICAL EXAMINATION: VITAL SIGNS: Pulse is 76, blood pressure 115/45, and respirations 20. HEENT: Conjunctivae normal. NECK: No jugular venous distention. No carotid bruit. CARDIOVASCULAR: S1, S2. RESPIRATIONS: Diminished at the bases. ABDOMEN: Soft, nontender. NERVOUS SYSTEM: No focal deficits. LABORATORY DATA: Hemoglobin 10.6. ABGs noted. ASSESSMENT: 1. CHF with acute exacerbation. 2. Acute hypoxic respiratory failure, on BiPAP. 3. Hypotension. 4. Acute on chronic kidney disease and renal failure. 5. Multiple complex medical issues. RECOMMENDATIONS: Recommend to continue current management, continue symptomatic treatment, continue with pressor support. Otherwise, continue with the rest of the medications, the most recent chest x-ray done today which I reviewed personally showed significant cardiomegaly and CHF also. Abdominal ultrasound showed no hydronephrosis. DVT prophylaxis. See orders for details. Further recommendations to follow. MMODL / IJN: [id number] /
[2023-06-18 00:22] LABS: Glucose,Whole Blood 78 mg/dL (70-110)
[2023-06-18] MEDS: NOREPINEPHRINE 4 MG in SODIUM CHLORIDE 0.9% 250 ML IV SCH ×2 (01:39→12:54)
[2023-06-18] MEDS: HYDROmorphone 0.5 MG/0.5 ML SYRINGE IVP PRN ×2 (01:49→13:07)
[2023-06-18 03:10] LABS: Glucose,Whole Blood 81 mg/dL (70-110)
[2023-06-18 06:13] LABS: Glucose,Whole Blood 81 mg/dL (70-110)
[2023-06-18] MEDS: BUMETANIDE 10 MG in DEXTROSE 5% IN WATER 60 ML IV SCH ×2 (06:28)
[2023-06-18 06:46] LABS: African American GFR (CKD) 13 (>60 ml/min/1.73 sqM); Anion Gap 9 mmol/L; Blood Urea Nitrogen 81 mg/dL (7-17); Calcium 8.4 mg/dL (8.4-10.2); Carbon Dioxide 31 mmol/L (22-30); Chloride 102 mmol/L (98-107); Glucose 77 mg/dL (74-99); Non-African American GFR(CKD) 11 (>60 ml/min/1.73 sqM); Potassium 4.5 mmol/L (3.5-5.1); Sodium 142 mmol/L (137-145)
[2023-06-18 07:20] LABS: Anisocytosis Slight; Basophils % (A) 0 %; Eosinophils # (A) 0.1 k/uL (0-0.7); Eosinophils % (A) 2 %; HCT 35.1 % (34.0-46.0); Hypochromasia Marked; Lymphocytes # (A) 0.8 k/uL (1.0-4.8); Lymphocytes % (A) 14 %; MCH 22.7 pg (25.0-35.0); MCHC 28.4 g/dL (31.0-37.0); Mean Platelet Volume 10.7; Microcytosis Slight; Monocytes # (A) 0.5 k/uL (0-1.0); Monocytes % (A) 9 %; Neutrophils # (A) 4.2 k/uL (1.3-7.7); Neutrophils % (A) 72 %; Platelet Count 155 k/uL (150-450); Poikilocytosis Slight; RBC 4.39 m/uL (3.80-5.40); RDW 19.2 % (11.5-15.5); WBC 5.9 k/uL (3.8-10.6)
--- NOTE | 2023-06-18 08:57 | XR ---
EXAMINATION TYPE: XR chest 1V DATE OF EXAM: 06/18/2023 COMPARISON: 06/17/2023 INDICATION: Hypoxia TECHNIQUE: Single frontal view of the chest is obtained. FINDINGS: The heart size is enlarged. The pulmonary vasculature is normal. Retrocardiac infiltrate be difficult to exclude. Some mild infiltrate at the right posterior lung bas e may be present. Right central venous catheter is present with the tip in superior vena cava region. IMPRESSION: 1. Retrocardiac infiltration be considered. Small right posterior infiltrate may be present. 2. Right central venous catheter tip in superior vena cava region. 3. Cardiomegaly
[2023-06-18] MEDS: METOPROLOL SUCCINATE (ER) 100 MG TAB.ER.24H PO SCH (09:13)
[2023-06-18] MEDS: FOLIC ACID 1 MG TAB PO SCH (09:13)
[2023-06-18] MEDS: AMIODARONE 200 MG TAB PO SCH (09:13)
[2023-06-18] MEDS: ISOSORBIDE MONONITRATE ER 30 MG TAB.ER.24H PO SCH (09:13)
[2023-06-18] MEDS: APIXABAN 2.5 MG TABLET PO SCH ×2 (09:13→21:03)
[2023-06-18] MEDS: MAGNESIUM OXIDE 400 MG TAB PO SCH (09:13)
[2023-06-18] MEDS: PANTOPRAZOLE 40 MG/10 ML VIAL IVP SCH (09:13)
--- NOTE | 2023-06-18 10:09 | P.PN ---
Subjective Patient is seen in follow-up for acute kidney injury on chronic kidney disease. Creatinine higher but urine output improved. On Bumex drip. Currently on nasal cannula. Awake and alert. Vital signs are stable. General: Resting in bed. HEENT: Head exam is unremarkable. On nasal cannula. LUNGS: Scattered rhonchi. HEART: Rate and Rhythm are regular. ABDOMEN: Soft, obese. EXTREMITITES: 1+ edema. Objective - Vital Signs Vital signs: Vital Signs Temp 97.8 F 06/18/23 04:00 Pulse 71 06/18/23 07:00 Resp 19 06/18/23 07:00 BP 142/79 06/18/23 07:00 Pulse Ox 96 06/18/23 07:00 FiO2 35 06/18/23 07:31 Intake & Output 06/17/23 06/18/23 06/18/23 18:59 06:59 18:59 Intake Total 120 220 10 Output Total 580 850 120 Balance -460 -630 -110 Weight 183.8 kg Intake: IV 105 120 10 .9 NS 105 120 10 Intake, IV Titration 0 100 Amount Bumetanide 10 mg In 0 100 Dextrose 5% in Water 60 ml @ 0.5 MG/HR 5 mls/hr IV .Q20H [facility] Rx#: [id number] Oral 15 Output: Urine 580 850 120 Other: Voiding Method Indwelling Catheter Indwelling Catheter - Labs CBC & Chem 7: 06/18/23 06:14 06/18/23 06:14 Labs: Abnormal Lab Results - Last 24 Hours (Table) 06/15/23 06/18/23 06/18/23 Range/Units 12:19 06:14 06:14 Hgb 10.0 L (11.4-16.0) gm/dL MCH 22.7 L (25.0-35.0) pg MCHC 28.4 L (31.0-37.0) g/dL RDW 19.2 H (11.5-15.5) % Lymphocytes # 0.8 L (1.0-4.8) k/uL Carbon Dioxide 31 H (22-30) mmol/L BUN 81 H (7-17) mg/dL Creatinine 4.35 H (0.52-1.04) mg/dL THANH Screen POSITIVE A (Negative) Assessment and Plan Plan: Assessment: 1. Acute kidney injury secondary to ATN secondary to hypotension and cardiorenal syndrome. Creatinine 4.35 today. Nonoliguric. No hydronephrosis noted on CAT scan done November 2022. No hydronephrosis noted in the right kidney on ultrasound left kidney wasn't visualized. 2. Chronic kidney disease stage IIIB with baseline creatinine near 2. Serologies negative in the past. Repeat pending. UPC 1 g. 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 Doubt nephrotic syndrome as patient's albumin level was 4.1 dated 06/14/2023. 3. Acute on chronic diastolic CHF. 4. Volume overload. 5. Acute on chronic hypercapnic respiratory failure. Plan: Maintain Bumex drip. Low-salt diet and 1500 mL fluid restriction. Follow-up serologies - negative except for positive THANH. Avoid nephrotoxins. Continue to monitor renal function and urine output. Continue to assess daily for need for renal replacement therapy. No urgency at this time.
[2023-06-18] MEDS: PANTOPRAZOLE 40 MG TABLET PO SCH (10:58)
[2023-06-18 12:13] LABS: Glucose,Whole Blood 139 mg/dL (70-110)
--- NOTE | 2023-06-18 12:18 | P.PN ---
Subjective Progress Note Date: 06/18/23 Principal diagnosis: Acute on chronic hypoxic and hypercapnic respiratory failure secondary to Acute on chronic diastolic congestive heart failure Patient is a 48-year-old -Mal[place] female with past medical history significant for CHF, hypertension, morbid obesity, obstructive sleep apnea without CPAP because it is broken, chronic oxygen dependence with 3 L/m nasal c annula mostly at night, previous ventilator dependent respiratory failure, hypertension, chronic kidney disease stage IV, left upper extremity lymphedema, anemia, and frequent urinary tract infections. Patient has frequent hospital admissions for congestive heart failure, hypercapnic respiratory failure and hypoxic respiratory failure. She was in the hospital back in April 2023 and the patient was discharged home on 05/24/2023 after being treated for decompensated respiratory failure, acute on top of chronic hypoxic and hypercapnic respiratory failure. The patient was at home. The patient was brought in to the hospital because of myalgias, and she had also fallen from her her [employer] public [employer] lists that she has at home. She was brought into the hospital and she was admitted to the medical floor and overnight the patient became lethargic, confused, altered, and she developed an acute on top of chronic hypercapnic respiratory failure. Based on that, the patient got transferred to the intensive care unit. Initial blood gas showed a pH of 7.24 with a pCO2 of 77 and pO2 of 56 and this was on FiO2 of 32%. Currently the patient on a BiPAP at a pressure of 16/6 cm of water with FiO2 of 60%. Generator tidal volume is 450. The rate is at 14 with a minute ventilation of 6.7. The repeat blood gas showed a pH of 7.19 with a pCO2 of 87 and pO2 of 103. Chest x-ray shows cardiomegaly, and worsening pulmonary edema. Blood work shows a white cell count of 7.5, hemoglobin of 11 and a platelet count of 136. BUN is at 67 with a creatinine of 3.5 and a sodium level is at 142. The proBNP level is 11,600, troponins of 0.07, UA showed +3 protein is, the viral screen is negative. The patient is afebrile. She remains encephalopathic and lethargic at this point in time. She is able to tolerate the BiPAP without any major difficulties. Patient was reevaluated today on 06/17/2023, remains in the ICU, very poor marginal pulmonary status at best. Patient remains on BiPAP 16/6 at 50% FiO2 however I was able to cut down the FiO2 down to 40%. ABG showed a pO2 of 68 pCO2 of 80 pH of 7.22, patient seems to be comfortable in spite of her abnormal ABG. Chest x-ray is showing evidence of worsening congestive heart failure. Her blood pressure is marginal patient is on norepinephrine drip, and 0.03 mcg/kg/m she is also on Bumex which I have restarted this morning at 0.5 mg per hour. Patient is also on amiodarone, eliquis, Dilaudid, metoprolol which needs to be placed on hold if her blood pressure is marginal patient is also on Protonix. Electrolytes are basically normal except for bicarb of 32 BUN is 74 creatinine 3.80 showing deteriorating and worsening renal status. WBC count is 11 hemoglobin is 10.6. Renal ultrasound showed no evidence of hydronephrosis however the left kidney could not be visualized. Mostly because of the patient's habitus and overlying bowel gas. Patient was reevaluated today on 06/18/2023, remains in the ICU, she is much better today clinically compared to yesterday. She had significant amount of urine output with the Bumex drip overnight, I was able to transition the patient from BiPAP to nasal cannula, and she seems to be doing well with nasal cannula. In the meantime I'm keeping the patient on Bumex infusion at 0.5 mg per hour keeping her IV fluid at KVO. And we will continue to monitor electrolytes and renal profile. WBC count is 5.9 hemoglobin is 10 electrolytes are normal BUN is up to 81 creatinine is 4.35. Being followed by nephrology. Chest x-ray was reviewed and shows improvement in her pulmonary edema. Objective - Vital Signs Vital signs: Vital Signs Temp 98.0 F 06/18/23 08:00 Pulse 83 06/18/23 11:00 Resp 22 06/18/23 11:00 BP 142/79 06/18/23 07:00 Pulse Ox 92 L 06/18/23 11:00 FiO2 35 06/18/23 08:00 Intake & Output 06/17/23 06/18/23 06/18/23 18:59 06:59 18:59 Intake Total 120 220 650 Output Total 580 850 770 Balance -460 -630 -120 Weight 183.8 kg Intake: IV 105 120 50 .9 NS 105 120 50 Intake, IV Titration 0 100 Amount Bumetanide 10 mg In 0 100 Dextrose 5% in Water 60 ml @ 0.5 MG/HR 5 mls/hr IV .Q20H [facility] Rx#: [id number] Oral 15 600 Output: Urine 580 850 770 Other: Voiding Method Indwelling Catheter Indwelling Catheter Indwelling Catheter - Exam Physical Exam: Revealed a morbidly obese female in mild respiratory distress, transitioned from BiPAP to nasal cannula Head: Atraumatic, normocephalic, short obese neck was noted. HEENT:[Neck is supple.] [No neck masses.] [No thyromegaly.] [No JVD.] Right IJ triple-lumen catheter is noted. Chest: [Diminished breath sound bilaterally no crackles or rhonchi or wheezes Cardiac Exam: Irregular irregular rhythm. [Normal S1 and S2, no S3 gallop, no murmur.] Abdomen: [Obese, Soft, nontender, no megaly, no rebound, no guarding, normal bowel sounds.] Extremities: [No clubbing, trace of bipedal edema, no cyanosis.] Diminished distal pulses bilaterally. Neurological Exam: Alert and oriented 3. [No focal neurologic deficit.] Psychiatric: Normal mood affect and normal mental status examination. Skin: No rashes. - Labs CBC & Chem 7: 06/18/23 06:14 06/18/23 06:14 Labs: Abnormal Lab Results - Last 24 Hours (Table) 06/15/23 06/18/23 06/18/23 Range/Units 12: 06:14 06:14 Hgb 10.0 L (11.4-16.0) gm/dL MCH 22.7 L (25.0-35.0) pg MCHC 28.4 L (31.0-37.0) g/dL RDW 19.2 H (11.5-15.5) % Lymphocytes # 0.8 L (1.0-4.8) k/uL Carbon Dioxide 31 H (22-30) mmol/L BUN 81 H (7-17) mg/dL Creatinine 4.35 H (0.52-1.04) mg/dL POC Glucose (mg/dL) (70-110) mg/dL THANH Screen POSITIVE A (Negative) 06/18/23 Range/Units 12:11 Hgb (11.4-16.0) gm/dL MCH (25.0-35.0) pg MCHC (31.0-37.0) g/dL RDW (11.5-15.5) % Lymphocytes # (1.0-4.8) k/uL Carbon Dioxide (22-30) mmol/L BUN (7-17) mg/dL Creatinine (0.52-1.04) mg/dL POC Glucose (mg/dL) 139 H (70-110) mg/dL THANH Screen (Negative) Assessment and Plan Assessment: Impression: Acute on chronic hypoxic and hypercapnic respiratory failure secondary to acute on chronic diastolic congestive heart failure/pulmonary edema. Patient had multiple echocardiograms, obviously it is difficult to determine exact ejection fraction, and ejection fractions have been as low as 50% and as high as 60% over the last 6 months. Echocardiogram in November showed ejection fraction of 30-35%. No echocardiogram has been done on this admission. Morbid obesity, BMI of 75 Acute metabolic encephalopathy secondary to hypoxia and hypercapnia, improving Benign essential hypertension Acute on chronic kidney disease injury patient does have a chronic underlying kidney disease Obstructive sleep apnea, noncompliant with CPAP History of respiratory failure requiring mechanical ventilation Chronic kidney disease stage IV Anemia of chronic disease Chronic left upper extremity lymphedema History of DVT Chronic atrial fibrillation Recommendation: Continue to monitor in the ICU for the next 24 hours Change BiPAP to nasal cannula Continue Bumex infusion Continue eliquis/anticoagulation We will continue to follow Time with Patient: Less than 30
[2023-06-18 16:19] LABS: BUN/Creat Ratio 18.9 Ratio (12.00-20.00)
[2023-06-18 16:43] LABS: Glucose,Whole Blood 120 mg/dL (70-110)
[2023-06-18 20:11] LABS: Glucose,Whole Blood 93 mg/dL (70-110)
[2023-06-19 00:08] LABS: Glucose,Whole Blood 87 mg/dL (70-110)
[2023-06-19] MEDS: NOREPINEPHRINE 4 MG in SODIUM CHLORIDE 0.9% 250 ML IV SCH ×2 (05:54→14:08)
[2023-06-19] MEDS: HYDROmorphone 0.5 MG/0.5 ML SYRINGE IVP PRN ×3 (05:57→18:53)
[2023-06-19] MEDS: BUMETANIDE 10 MG in DEXTROSE 5% IN WATER 60 ML IV SCH ×4 (05:57→22:42)
[2023-06-19 06:14] LABS: African American GFR (CKD) 13 (>60 ml/min/1.73 sqM); Anion Gap 7 mmol/L; Blood Urea Nitrogen 83 mg/dL (7-17); Calcium 8.5 mg/dL (8.4-10.2); Carbon Dioxide 31 mmol/L (22-30); Chloride 103 mmol/L (98-107); Glucose 76 mg/dL (74-99); Non-African American GFR(CKD) 11 (>60 ml/min/1.73 sqM); Sodium 141 mmol/L (137-145)
[2023-06-19 06:15] LABS: Potassium 3.8 mmol/L (3.5-5.1)
[2023-06-19 06:33] LABS: Anisocytosis Slight; HGB 10.7 gm/dL (11.4-16.0); Hypochromasia Marked; MCH 22.8 pg (25.0-35.0); MCHC 27.4 g/dL (31.0-37.0); MCV 83.3 fL (80.0-100.0); Mean Platelet Volume 10.8; Microcytosis Slight; Platelet Count 152 k/uL (150-450); RBC 4.68 m/uL (3.80-5.40); RDW 18.9 % (11.5-15.5); WBC 6.5 k/uL (3.8-10.6)
--- NOTE | 2023-06-19 09:05 | XR ---
EXAMINATION TYPE: XR chest 1V portable DATE OF EXAM: 06/19/2023 COMPARISON: March 1923 INDICATION: CHF TECHNIQUE: Single frontal view of the chest is obtained. FINDINGS: The heart size is enlarged. The pulmonary vasculature is somewhat prominent. There is a developing medial right lower lobe infiltrate. Some retrocardiac infiltrate is likely pres ent. Correlate for atelectasis and pneumonia. Atypical pulmonary edema could be considered. Catheter is on the right with the tip in the superior vena cava region. IMPRESSION: 1. Cardiomegaly with bibasilar infiltrates. Correlate for congestive heart failure. Atelectasis and p neumonia of the lung bases should also be considered within the differential.
[2023-06-19] MEDS: PANTOPRAZOLE 40 MG/10 ML VIAL IVP SCH (09:14)
[2023-06-19] MEDS: MAGNESIUM OXIDE 400 MG TAB PO SCH (09:14)
[2023-06-19] MEDS: FOLIC ACID 1 MG TAB PO SCH (09:14)
[2023-06-19] MEDS: METOPROLOL SUCCINATE (ER) 100 MG TAB.ER.24H PO SCH (09:14)
[2023-06-19] MEDS: ISOSORBIDE MONONITRATE ER 30 MG TAB.ER.24H PO SCH (09:14)
[2023-06-19] MEDS: AMIODARONE 200 MG TAB PO SCH (09:14)
[2023-06-19] MEDS: APIXABAN 2.5 MG TABLET PO SCH ×2 (09:14→21:57)
[2023-06-19 09:21] LABS: Eosinophils # (M) 0.26 k/uL (0-0.7); Lymphocytes # (M) 0.78 k/uL (1.0-4.8); Monocytes # (M) 0.65 k/uL (0-1.0); Neutrophils # (M) 4.81 k/uL (1.3-7.7); Neutrophils % (M) 74 %; Nucleated Red Blood Cells 0 /100 WBC (0-0); Total Cells Counted 100
[2023-06-19 09:22] LABS: Poikilocytosis (M) Present
--- NOTE | 2023-06-19 10:39 | P.PN ---
Subjective Patient is seen in follow-up for acute kidney injury on chronic kidney disease. Renal function stable. Nonoliguric. On Bumex drip. Currently on nasal cannula. Awake and alert. No active complaints. Vital signs are stable. General: Resting in bed. HEENT: Head exam is unremarkable. On nasal cannula. LUNGS: Scattered rhonchi. HEART: Rate and Rhythm are regular. ABDOMEN: Soft, obese. EXTREMITITES: 1+ edema. Objective - Vital Signs Vital signs: Vital Signs Temp 97.7 F 06/19/23 08:00 Pulse 68 06/19/23 10:00 Resp 14 06/19/23 10:00 BP 137/87 06/19/23 10:00 Pulse Ox 90 L 06/19/23 10:00 FiO2 35 06/19/23 04:00 Intake & Output 06/18/23 06/19/23 06/19/23 18:59 06:59 18:59 Intake Total 920 220 30 Output Total 1030 1994 Balance -110 -7548 -185 Weight 171.912 kg Intake: IV 120 120 30 .9 NS 120 120 30 Intake, IV Titration 100 Amount Bumetanide 10 mg In 100 Dextrose 5% in Water 60 ml @ 0.5 MG/HR 5 mls/hr IV .Q20H [facility] Rx#: [id number] Oral 800 Output: Urine 1029 Other: Voiding Method Indwelling Catheter Indwelling Catheter - Labs CBC & Chem 7: 06/19/23 05:35 06/19/23 05:35 Labs: Abnormal Lab Results - Last 24 Hours (Table) 06/15/23 06/18/23 06/18/23 Range/Units 06:54 12:11 16:42 Hgb (11.4-16.0) gm/dL MCH (25.0-35.0) pg MCHC (31.0-37.0) g/dL RDW (11.5-15.5) % Lymphocytes # (Manual) (1.0-4.8) k/uL Carbon Dioxide (22-30) mmol/L BUN (7-17) mg/dL Creatinine (0.52-1.04) mg/dL Est GFR (CKD-EPI) 18 L (>=60) POC Glucose (mg/dL) 139 H 120 H (70-110) mg/dL 06/19/23 06/19/23 Range/Units 05:35 05:35 Hgb 10.7 L (11.4-16.0) gm/dL MCH 22.8 L (25.0-35.0) pg MCHC 27.4 L (31.0-37.0) g/dL RDW 18.9 H (11.5-15.5) % Lymphocytes # (Manual) 0.78 L (1.0-4.8) k/uL Carbon Dioxide 31 H (22-30) mmol/L BUN 83 H (7-17) mg/dL Creatinine 4.28 H (0.52-1.04) mg/dL Est GFR (CKD-EPI) (>=60) POC Glucose (mg/dL) (70-110) mg/dL Assessment and Plan Plan: Assessment: 1. Acute kidney injury secondary to ATN secondary to hypotension and cardiorenal syndrome. Creatinine stable at 4.28 today. Nonoliguric. No hydronephrosis noted on CAT scan done November 2022. No hydronephrosis noted in the right kidney on ultrasound left kidney wasn't visualized. 2. Chronic kidney disease stage IIIB with baseline creatinine near 2. Serologies negative in the past. Repeat pending. UPC 1 g. 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 Doubt nephrotic syndrome as patient's albumin level was 4.1 dated 06/14/2023. 3. Acute on chronic diastolic CHF. 4. Volume overload. Improved for diuresis. 5. Acute on chronic hypercapnic respiratory failure. Plan: Maintain Bumex drip for another 24 hours. Low-salt diet and 1500 mL fluid restriction. Follow-up serologies - negative except for positive THANH. Avoid nephrotoxins. Continue to monitor renal function and urine output. Continue to assess daily for need for renal replacement therapy. No urgency at this time. Replace potassium.
[2023-06-19 11:32] LABS: Glucose,Whole Blood 98 mg/dL (70-110)
[2023-06-19] MEDS: POTASSIUM CHLORIDE ER 20 MEQ TAB.ER PO SCH ×2 (11:56→14:08)
--- NOTE | 2023-06-19 12:35 | P.PN ---
Subjective Progress Note Date: 06/19/23 Principal diagnosis: Acute on chronic hypoxic and hypercapnic respiratory failure secondary to Acute on chronic diastolic congestive heart failure Patient is a 48-year-old -[place] female with past medical history significant for CHF, hypertension, morbid obesity, obstructive sleep apnea without CPAP because it is broken, chronic oxygen dependence with 3 L/m nasal c annula mostly at night, previous ventilator dependent respiratory failure, hypertension, chronic kidney disease stage IV, left upper extremity lymphedema, anemia, and frequent urinary tract infections. Patient has frequent hospital admissions for congestive heart failure, hypercapnic respiratory failure and hypoxic respiratory failure. She was in the hospital back in April 2023 and the patient was discharged home on 05/24/2023 after being treated for decompensated respiratory failure, acute on top of chronic hypoxic and hypercapnic respiratory failure. The patient was at home. The patient was brought in to the hospital because of myalgias, and she had also fallen from her her kettle chipper lists that she has at home. She was brought into the hospital and she was admitted to the medical floor and overnight the patient became lethargic, confused, altered, and she developed an acute on top of chronic hypercapnic respiratory failure. Based on that, the patient got transferred to the intensive care unit. Initial blood gas showed a pH of 7.24 with a pCO2 of 77 and pO2 of 56 and this was on FiO2 of 32%. Currently the patient on a BiPAP at a pressure of 16/6 cm of water with FiO2 of 60%. Generator tidal volume is 450. The rate is at 14 with a minute ventilation of 6.7. The repeat blood gas showed a pH of 7.19 with a pCO2 of 87 and pO2 of 103. Chest x-ray shows cardiomegaly, and worsening pulmonary edema. Blood work shows a white cell count of 7.5, hemoglobin of 11 and a platelet count of 136. BUN is at 67 with a creatinine of 3.5 and a sodium level is at 142. The proBNP level is 11,600, troponins of 0.07, UA showed +3 protein is, the viral screen is negative. The patient is afebrile. She remains encephalopathic and lethargic at this point in time. She is able to tolerate the BiPAP without any major difficulties. Patient was reevaluated today on 06/17/2023, remains in the ICU, very poor marginal pulmonary status at best. Patient remains on BiPAP 16/6 at 50% FiO2 however I was able to cut down the FiO2 down to 40%. ABG showed a pO2 of 68 pCO2 of 80 pH of 7.22, patient seems to be comfortable in spite of her abnormal ABG. Chest x-ray is showing evidence of worsening congestive heart failure. Her blood pressure is marginal patient is on norepinephrine drip, and 0.03 mcg/kg/m she is also on Bumex which I have restarted this morning at 0.5 mg per hour. Patient is also on amiodarone, eliquis, Dilaudid, metoprolol which needs to be placed on hold if her blood pressure is marginal patient is also on Protonix. Electrolytes are basically normal except for bicarb of 32 BUN is 74 creatinine 3.80 showing deteriorating and worsening renal status. WBC count is 11 hemoglobin is 10.6. Renal ultrasound showed no evidence of hydronephrosis however the left kidney could not be visualized. Mostly because of the patient's habitus and overlying bowel gas. Patient was reevaluated today on 06/18/2023, remains in the ICU, she is much better today clinically compared to yesterday. She had significant amount of urine output with the Bumex drip overnight, I was able to transition the patient from BiPAP to nasal cannula, and she seems to be doing well with nasal cannula. In the meantime I'm keeping the patient on Bumex infusion at 0.5 mg per hour keeping her IV fluid at KVO. And we will continue to monitor electrolytes and renal profile. WBC count is 5.9 hemoglobin is 10 electrolytes are normal BUN is up to 81 creatinine is 4.35. Being followed by nephrology. Chest x-ray was reviewed and shows improvement in her pulmonary edema. Patient was reevaluated today on 06/19/2023, remains in the ICU, she is down to 4 L nasal cannula and utilizes BiPAP at night 16/6/35%. Remains on Bumex at 0.5 mg per hour renal functioning is better today down to 4.28 compared to creatinine 4.35 yesterday. Patient tells me that she is breathing easier, feeling much better, chest x-ray continues to show evidence of interstitial edema. For some reason patient is not being followed by cardiology at this point, although her overall presentation is a presentation of acute on chronic diastolic congestive heart failure, nonetheless she is improving with diuresis, she was on the verge of being intubated upon her initial presentation, but now she is improving, and no need for intubation as a matter of fact I would continue to monitor the patient for one more day in the ICU and plan to transfer the patient out of the ICU in the next 24 hours. Patient is not requiring any pressors is only requiring Bumex drip. In the last 5 days, the patient has been at least -7 L of fluids, and she continues to diurese with Bumex. WBC count is 6.5 hemoglobin is 10.7 a left lites are normal BUN is 83 creatinine 4.28 and bicarb is 31. Medications were all reviewed remains on amiodarone, eliquis, isosorbide, metoprolol 100 mg by mouth daily, off norepinephrine, on hernandez toprazole. Objective - Vital Signs Vital signs: Vital Signs Temp 98.2 F 06/19/23 12:00 Pulse 79 06/19/23 12:00 Resp 17 06/19/23 12:00 BP 113/60 06/19/23 12:00 Pulse Ox 93 L 06/19/23 12:00 FiO2 35 06/19/23 04:00 Intake & Output 06/18/23 06/19/23 06/19/23 18:59 06:59 18:59 Intake Total 920 220 60 Output Total 1030 1994 490 Balance -110 -1617 -430 Weight 171.912 kg Intake: IV 120 120 60 .9 NS 120 120 60 Intake, IV Titration 100 Amount Bumetanide 10 mg In 100 Dextrose 5% in Water 60 ml @ 0.5 MG/HR 5 mls/hr IV .Q20H [facility] Rx#: [id number] Oral 800 Output: Urine 1030 1994 Other: Voiding Method Indwelling Catheter Indwelling Catheter Indwelling Catheter - Exam Physical Exam: Revealed a morbidly obese female in mild respiratory distress, on 4 L nasal cannula Head: Atraumatic, normocephalic, short obese neck was noted. HEENT:[Neck is supple.] [No neck masses.] [No thyromegaly.] [No JVD.] Right IJ triple-lumen catheter is noted. Chest: [Diminished breath sound bilaterally no crackles or rhonchi or wheezes Cardiac Exam: Irregular irregular rhythm. [Normal S1 and S2, no S3 gallop, no murmur.] Abdomen: [Obese, Soft, nontender, no megaly, no rebound, no guarding, normal bowel sounds.] Extremities: [No clubbing, trace of bipedal edema, no cyanosis.] Diminished distal pulses bilaterally. Neurological Exam: Alert and oriented 3. [No focal neurologic deficit.] Psychiatric: Normal mood affect and normal mental status examination. Skin: No rashes. - Labs CBC & Chem 7: 06/19/23 05:35 06/19/23 05:35 Labs: Abnormal Lab Results - Last 24 Hours (Table) 06/15/23 06/18/23 06/19/23 Range/Units 06:54 16:42 05:35 Hgb 10.7 L (11.4-16.0) gm/dL MCH 22.8 L (25.0-35.0) pg MCHC 27.4 L (31.0-37.0) g/dL RDW 18.9 H (11.5-15.5) % Lymphocytes # (Manual) 0.78 L (1.0-4.8) k/uL Carbon Dioxide (22-30) mmol/L BUN (7-17) mg/dL Creatinine (0.52-1.04) mg/dL Est GFR (CKD-EPI) 18 L (>=60) POC Glucose (mg/dL) 120 H (70-110) mg/dL 06/19/23 Range/Units 05:35 Hgb (11.4-16.0) gm/dL MCH (25.0-35.0) pg MCHC (31.0-37.0) g/dL RDW (11.5-15.5) % Lymphocytes # (Manual) (1.0-4.8) k/uL Carbon Dioxide 31 H (22-30) mmol/L BUN 83 H (7-17) mg/dL Creatinine 4.28 H (0.52-1.04) mg/dL Est GFR (CKD-EPI) (>=60) POC Glucose (mg/dL) (70-110) mg/dL Assessment and Plan Assessment: Impression: Acute on chronic hypoxic and hypercapnic respiratory failure secondary to acute on chronic diastolic congestive heart failure/pulmonary edema. Patient had multiple echocardiograms, obviously it is difficult to determine exact ejection fraction, and ejection fractions have been as low as 50% and as high as 60% over the last 6 months. Echocardiogram in November showed ejection fraction of 30-35%. No echocardiogram has been done on this admission. Cardiology saw the patient initially and now not following the patient anymore. Morbid obesity, BMI of 75 Acute metabolic encephalopathy secondary to hypoxia and hypercapnia, improving Benign essential hypertension Acute on chronic kidney disease injury patient does have a chronic underlying kidney disease Obstructive sleep apnea, noncompliant with CPAP History of respiratory failure requiring mechanical ventilation Chronic kidney disease stage IV Anemia of chronic disease Chronic left upper extremity lymphedema History of DVT Chronic atrial fibrillation Recommendation: Continue to titrate oxygen Use BiPAP at night Continue Bumex infusion Continue cardiac meds including beta blockers and amiodarone and eliquis Ambulate the patient as much as possible Possible transfer to a cardiac floor in the next 24 hours May have to consider reconsulting cardiology when the patient is on the cardiac floor and she was definitely need outpatient follow-up with cardiology We will continue to follow Time with Patient: Less than 30
[2023-06-19 16:34] LABS: Glucose,Whole Blood 125 mg/dL (70-110)
[2023-06-19 20:04] LABS: Glucose,Whole Blood 125 mg/dL (70-110)
--- NOTE | 2023-06-19 20:22 | PN ---
PROGRESS NOTE DATE OF SERVICE: 06/19/2023 CHIEF COMPLAINT: Congestive heart failure. HISTORY OF PRESENT ILLNESS: This lady is more or less stable at this time. She is still dyspneic. She is awake and alert. Her renal function is serious. GFR is down to 13 with a BUN of 83 and a creatinine of 4.8. PHYSICAL EXAMINATION: CHEST: Breath sounds are heard on both sides. CARDIAC: Sounds like sinus. ABDOMEN: Soft. EXTREMITIES: Unchanged. IMPRESSION: 1. [id number] congestive heart failure. 2. Stage 5 chronic kidney disease. 3. Morbid obesity. PLAN: Continue supportive care. MMODL / IJN: [id number] /
--- NOTE | 2023-06-19 21:34 | PN ---
PROGRESS NOTE DATE OF SERVICE: 06/18/2023 CHIEF COMPLAINT: [id number] congestive heart failure. HISTORY OF PRESENT ILLNESS: This lady is doing fairly well. Breathing is slowly improved. She is not having any chest pain. PHYSICAL EXAMINATION: CHEST: Breath sounds are heard bilaterally. CARDIAC: Unremarkable, but difficult to hear. ABDOMEN: Soft. IMPRESSION: 1. [id number] congestive heart failure. 2. Morbid obesity. PLAN: Continue with ICU management and hope to move her out to regular bed and then home. MMODL / IJN: [id number] /
[2023-06-20 00:02] LABS: Glucose,Whole Blood 141 mg/dL (70-110)
[2023-06-20 04:30] LABS: Anisocytosis Slight; HCT 33.5 % (34.0-46.0); HGB 9.7 gm/dL (11.4-16.0); Hypochromasia Marked; MCH 23.5 pg (25.0-35.0); MCHC 28.8 g/dL (31.0-37.0); MCV 81.8 fL (80.0-100.0); Mean Platelet Volume 8.8; Microcytosis Slight; Platelet Count 164 k/uL (150-450); RDW 19.4 % (11.5-15.5); WBC 6.2 k/uL (3.8-10.6)
[2023-06-20 04:55] LABS: African American GFR (CKD) 13 (>60 ml/min/1.73 sqM); Anion Gap 6 mmol/L; Blood Urea Nitrogen 81 mg/dL (7-17); Calcium 8.8 mg/dL (8.4-10.2); Carbon Dioxide 38 mmol/L (22-30); Chloride 97 mmol/L (98-107); Glucose 83 mg/dL (74-99); Non-African American GFR(CKD) 11 (>60 ml/min/1.73 sqM); Potassium 3.7 mmol/L (3.5-5.1); Sodium 141 mmol/L (137-145)
[2023-06-20] MEDS: NOREPINEPHRINE 4 MG in SODIUM CHLORIDE 0.9% 250 ML IV SCH (05:54)
[2023-06-20 06:59] LABS: Glucose,Whole Blood 86 mg/dL (70-110)
--- NOTE | 2023-06-20 07:46 | HP ---
HISTORY AND PHYSICAL CHIEF COMPLAINT: Shortness of breath. HISTORY OF PRESENT ILLNESS: This is another admission for this 48-year-old morbidly obese female. She has been in and out of the hospital numerous times over the last several years. She is morbidly obese and no longer can ambulate or get out of bed. She is being taken care by her sister. We had a video chat with her a day or 2 before. The patient was brought to the hospital. Apparently, she became more short of breath and was brought back in, in acute congestive heart failure and was re-admitted. REVIEW OF SYSTEMS: She had no other complaints other than her shortness of breath. She had no abdominal pain, fever, chills, cough, etc. Past medical history, family history, and personal and social histories are all detailed in her prior hospitalization summaries. PHYSICAL EXAMINATION: VITAL SIGNS: Blood pressure is 105/74 with a pulse of 88, respirations of 36. She is afebrile. GENERAL: She appeared to be morbidly obese, but awake and alert. HEAD, EYES, NOSE, MOUTH, AND THROAT: Normal. CHEST: Demonstrated poor breath sounds, which were difficult to hear due to her obesity. CARDIAC: Demonstrated what sounded like sinus rhythm. ABDOMEN: Protuberant. EXTREMITIES: Edematous. NEUROLOGIC: She is intact. DIAGNOSES: She is admitted to the hospital with diagnoses: 1. Acute exacerbation of chronic congestive heart failure. 2. Cardiomyopathy. 3. Morbid obesity. PLAN: 1. Bedrest. 2. IV fluids. 3. Diuresis. 4. Consult with Cardiology. MMODL / IJN: [id number] /
[2023-06-20] MEDS: FOLIC ACID 1 MG TAB PO SCH (08:51)
[2023-06-20] MEDS: PANTOPRAZOLE 40 MG/10 ML VIAL IVP SCH (08:51)
[2023-06-20] MEDS: ISOSORBIDE MONONITRATE ER 30 MG TAB.ER.24H PO SCH (08:51)
[2023-06-20] MEDS: HYDROmorphone 0.5 MG/0.5 ML SYRINGE IVP PRN (08:51)
[2023-06-20] MEDS: METOPROLOL SUCCINATE (ER) 100 MG TAB.ER.24H PO SCH (08:51)
[2023-06-20] MEDS: AMIODARONE 200 MG TAB PO SCH (08:51)
[2023-06-20] MEDS: APIXABAN 2.5 MG TABLET PO SCH ×2 (08:51→22:56)
[2023-06-20] MEDS: MAGNESIUM OXIDE 400 MG TAB PO SCH (08:52)
[2023-06-20] MEDS: BUMETANIDE 1 MG TAB PO SCH ×2 (09:21→22:56)
[2023-06-20] MEDS: metOLazone 2.5 MG TAB PO SCH (09:21)
[2023-06-20] MEDS ORDERED: POTASSIUM CHLORIDE ER 20 MEQ TAB.ER PO STA (10:02)
--- NOTE | 2023-06-20 10:03 | P.PN ---
Subjective Patient is seen in follow-up for acute kidney injury on chronic kidney disease. Renal function stable. Nonoliguric. Bumex drip discontinue this morning. Currently on nasal cannula. Awake and alert. No active complaints. Vital signs are stable. General: Resting in bed. HEENT: Head exam is unremarkable. On nasal cannula. LUNGS: Scattered rhonchi. HEART: Rate and Rhythm are regular. ABDOMEN: Soft, obese. EXTREMITITES: 1+ edema. Objective - Vital Signs Vital signs: Vital Signs Temp 98.6 F 06/20/23 08:00 Pulse 81 06/20/23 09:00 Resp 13 06/20/23 09:00 BP 137/86 06/20/23 09:00 Pulse Ox 94 L 06/20/23 08:00 FiO2 35 06/20/23 04:00 Intake & Output 06/19/23 06/20/23 06/20/23 18:59 06:59 18:59 Intake Total 120 393.75 230 Output Total 1160 1994 70 Balance -1040 -1601.25 -475 Weight 181.7 kg Intake: IV 120 110 30 .9 NS 120 110 30 Intake, IV Titration 83.75 Amount Bumetanide 10 mg In 83.75 Dextrose 5% in Water 60 ml @ 0.5 MG/HR 5 mls/hr IV .Q20H [facility] Rx#: [id number] Oral 200 200 Output: Urine 0 1994 Other: Voiding Method Indwelling Catheter Indwelling Catheter Indwelling Catheter - Labs CBC & Chem 7: 06/20/23 03:53 06/20/23 03:53 Labs: Abnormal Lab Results - Last 24 Hours (Table) 06/19/23 06/19/23 06/20/23 Range/Units 16:32 20:02 00:01 Hgb (11.4-16.0) gm/dL Hct (34.0-46.0) % MCH (25.0-35.0) pg MCHC (31.0-37.0) g/dL RDW (11.5-15.5) % Chloride (98-107) mmol/L Carbon Dioxide (22-30) mmol/L BUN (7-17) mg/dL Creatinine (0.52-1.04) mg/dL POC Glucose (mg/dL) 125 H 125 H 141 H (70-110) mg/dL 06/20/23 06/20/23 Range/Units 03:53 03:53 Hgb 9.7 L (11.4-16.0) gm/dL Hct 33.5 L (34.0-46.0) % MCH 23.5 L (25.0-35.0) pg MCHC 28.8 L (31.0-37.0) g/dL RDW 19.4 H (11.5-15.5) % Chloride 97 L (98-107) mmol/L Carbon Dioxide 38 H (22-30) mmol/L BUN 81 H (7-17) mg/dL Creatinine 4.30 H (0.52-1.04) mg/dL POC Glucose (mg/dL) (70-110) mg/dL Assessment and Plan Plan: Assessment: 1. Acute kidney injury secondary to ATN secondary to hypotension and cardiorenal syndrome. Creatinine stable at 4.3 today. Nonoliguric. No hydronephrosis noted on CAT scan done November 2022. No hydronephrosis noted in the right kidney on ultrasound left kidney wasn't visualized. 2. Chronic kidney disease stage IIIB with baseline creatinine near 2. Serologies negative in the past. Repeat pending. UPC 1 g. 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 Doubt nephrotic syndrome as patient's albumin level was 4.1 dated 06/14/2023. 3. Acute on chronic diastolic CHF. 4. Volume overload. Improved for diuresis. 5. Acute on chronic hypercapnic respiratory failure. Plan: Bumex drip discontinued this morning. Now on oral Bumex. Low-salt diet and 1500 mL fluid restriction. Follow-up serologies - negative except for positive THANH. Avoid nephrotoxins. Continue to monitor renal function and urine output. Continue to assess daily for need for renal replacement therapy. No urgency at this time. Replace potassium and add maintenance supplementation.
--- NOTE | 2023-06-20 11:40 | P.PN ---
Subjective Progress Note Date: 06/20/23 Principal diagnosis: Acute on chronic hypoxic and hypercapnic respiratory failure secondary to Acute on chronic diastolic congestive heart failure Patient is a 48-year-old -[place] female with past medical history significant for CHF, hypertension, morbid obesity, obstructive sleep apnea without CPAP because it is broken, chronic oxygen dependence with 3 L/m nasal c annula mostly at night, previous ventilator dependent respiratory failure, hypertension, chronic kidney disease stage IV, left upper extremity lymphedema, anemia, and frequent urinary tract infections. Patient has frequent hospital admissions for congestive heart failure, hypercapnic respiratory failure and hypoxic respiratory failure. She was in the hospital back in April 2023 and the patient was discharged home on 05/24/2023 after being treated for decompensated respiratory failure, acute on top of chronic hypoxic and hypercapnic respiratory failure. The patient was at home. 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 She was brought into the hospital and she was admitted to the medical floor and overnight the patient became lethargic, confused, altered, and she developed an acute on top of chronic hypercapnic respiratory failure. Based on that, the patient got transferred to the intensive care unit. Initial blood gas showed a pH of 7.24 with a pCO2 of 77 and pO2 of 56 and this was on FiO2 of 32%. Currently the patient on a BiPAP at a pressure of 16/6 cm of water with FiO2 of 60%. Generator tidal volume is 450. The rate is at 14 with a minute ventilation of 6.7. The repeat blood gas showed a pH of 7.19 with a pCO2 of 87 and pO2 of 103. Chest x-ray shows cardiomegaly, and worsening pulmonary edema. Blood work shows a white cell count of 7.5, hemoglobin of 11 and a platelet count of 136. BUN is at 67 with a creatinine of 3.5 and a sodium level is at 142. The proBNP level is 11,600, troponins of 0.07, UA showed +3 protein is, the viral screen is negative. The patient is afebrile. She remains encephalopathic and lethargic at this point in time. She is able to tolerate the BiPAP without any major difficulties. Patient was reevaluated today on 06/17/2023, remains in the ICU, very poor marginal pulmonary status at best. Patient remains on BiPAP 16/6 at 50% FiO2 however I was able to cut down the FiO2 down to 40%. ABG showed a pO2 of 68 pCO2 of 80 pH of 7.22, patient seems to be comfortable in spite of her abnormal ABG. Chest x-ray is showing evidence of worsening congestive heart failure. Her blood pressure is marginal patient is on norepinephrine drip, and 0.03 mcg/kg/m she is also on Bumex which I have restarted this morning at 0.5 mg per hour. Patient is also on amiodarone, eliquis, Dilaudid, metoprolol which needs to be placed on hold if her blood pressure is marginal patient is also on Protonix. Electrolytes are basically normal except for bicarb of 32 BUN is 74 creatinine 3.80 showing deteriorating and worsening renal status. WBC count is 11 hemoglobin is 10.6. Renal ultrasound showed no evidence of hydronephrosis however the left kidney could not be visualized. Mostly because of the patient's habitus and overlying bowel gas. Patient was reevaluated today on 06/18/2023, remains in the ICU, she is much better today clinically compared to yesterday. She had significant amount of urine output with the Bumex drip overnight, I was able to transition the patient from BiPAP to nasal cannula, and she seems to be doing well with nasal cannula. In the meantime I'm keeping the patient on Bumex infusion at 0.5 mg per hour keeping her IV fluid at KVO. And we will continue to monitor electrolytes and renal profile. WBC count is 5.9 hemoglobin is 10 electrolytes are normal BUN is up to 81 creatinine is 4.35. Being followed by nephrology. Chest x-ray was reviewed and shows improvement in her pulmonary edema. Patient was reevaluated today on 06/19/2023, remains in the ICU, she is down to 4 L nasal cannula and utilizes BiPAP at night 16/6/35%. Remains on Bumex at 0.5 mg per hour renal functioning is better today down to 4.28 compared to creatinine 4.35 yesterday. Patient tells me that she is breathing easier, feeling much better, chest x-ray continues to show evidence of interstitial edema. For some reason patient is not being followed by cardiology at this point, although her overall presentation is a presentation of acute on chronic diastolic congestive heart failure, nonetheless she is improving with diuresis, she was on the verge of being intubated upon her initial presentation, but now she is improving, and no need for intubation as a matter of fact I would continue to monitor the patient for one more day in the ICU and plan to transfer the patient out of the ICU in the next 24 hours. Patient is not requiring any pressors is only requiring Bumex drip. In the last 5 days, the patient has been at least -7 L of fluids, and she continues to diurese with Bumex. WBC count is 6.5 hemoglobin is 10.7 a left lites are normal BUN is 83 creatinine 4.28 and bicarb is 31. Medications were all reviewed remains on amiodarone, eliquis, isosorbide, metoprolol 100 mg by mouth daily, off norepinephrine, on hernandez toprazole. Was reevaluated today on 06/20/2023, patient continues to feel better continues to diurese with Bumex infusion, her chronic kidney disease seems to be relatively stable, patient is none on record. Remains on 4 L nasal cannula, she had almost over 2.6 L of output last night in the last 24 hours. Patient will be transitioned to oral Bumex at 3 mg twice a day and I will add Zaroxolyn 2.5 mg daily. I plan to transfer the patient out of the ICU to a medical cardiac floor. Patient remains on low salt diet and 1500 fluid restriction, significant improvement noted since admission. WBC count is 6.2 hemoglobin 9.7 basic metabolic profile is normal bicarb is 38 BUN is 81 creatinine 4.30 Objective - Vital Signs Vital signs: Vital Signs Temp 98.6 F 06/20/23 08:00 Pulse 81 06/20/23 09:00 Resp 13 06/20/23 09:00 BP 137/86 06/20/23 09:00 Pulse Ox 94 L 06/20/23 08:00 FiO2 35 06/20/23 04:00 Intake & Output 06/19/23 06/20/23 06/20/23 18:59 06:59 18:59 Intake Total 120 393.75 230 Output Total 1160 6231 708 Balance -1040 -1601.25 -475 Weight 181.7 kg Intake: IV 120 110 30 .9 NS 120 110 30 Intake, IV Titration 83.75 Amount Bumetanide 10 mg In 83.75 Dextrose 5% in Water 60 ml @ 0.5 MG/HR 5 mls/hr IV .Q20H [facility] Rx#: [id number] Oral 200 200 Output: Urine 1160 1995 705 Other: Voiding Method Indwelling Catheter Indwelling Catheter Indwelling Catheter - Exam Physical Exam: Revealed a morbidly obese female in mild respiratory distress, on 4 L nasal cannula Head: Atraumatic, normocephalic, short obese neck was noted. HEENT:[Neck is supple.] [No neck masses.] [No thyromegaly.] [No JVD.] Right IJ triple-lumen catheter is noted. Chest: [Diminished breath sound bilaterally no crackles or rhonchi or wheezes Cardiac Exam: Irregular irregular rhythm. [Normal S1 and S2, no S3 gallop, no murmur.] Abdomen: [Obese, Soft, nontender, no megaly, no rebound, no guarding, normal bowel sounds.] Extremities: [No clubbing, resolve edema, no cyanosis.] Diminished distal pulses bilaterally. Neurological Exam: Alert and oriented 3. [No focal neurologic deficit.] Psychiatric: Normal mood affect and normal mental status examination. Skin: No rashes. - Labs CBC & Chem 7: 06/20/23 03:53 06/20/23 03:53 Labs: Abnormal Lab Results - Last 24 Hours (Table) 06/19/23 06/19/23 06/20/23 Range/Units 16:32 20:02 00:01 Hgb (11.4-16.0) gm/dL Hct (34.0-46.0) % MCH (25.0-35.0) pg MCHC (31.0-37.0) g/dL RDW (11.5-15.5) % Chloride (98-107) mmol/L Carbon Dioxide (22-30) mmol/L BUN (7-17) mg/dL Creatinine (0.52-1.04) mg/dL POC Glucose (mg/dL) 125 H 125 H 141 H (70-110) mg/dL 06/20/23 06/20/23 Range/Units 03:53 03:53 Hgb 9.7 L (11.4-16.0) gm/dL Hct 33.5 L (34.0-46.0) % MCH 23.5 L (25.0-35.0) pg MCHC 28.8 L (31.0-37.0) g/dL RDW 19.4 H (11.5-15.5) % Chloride 97 L (98-107) mmol/L Carbon Dioxide 38 H (22-30) mmol/L BUN 81 H (7-17) mg/dL Creatinine 4.30 H (0.52-1.04) mg/dL POC Glucose (mg/dL) (70-110) mg/dL Assessment and Plan Assessment: Impression: Acute on chronic hypoxic and hypercapnic respiratory failure secondary to acute on chronic diastolic congestive heart failure/pulmonary edema. Patient had multiple echocardiograms, obviously it is difficult to determine exact ejection fraction, and ejection fractions have been as low as 50% and as high as 60% over the last 6 months. Echocardiogram in November showed ejection fraction of 30-35%. No echocardiogram has been done on this admission. Cardiology saw the patient initially and now not following the patient anymore. Morbid obesity, BMI of 75 Acute metabolic encephalopathy secondary to hypoxia and hypercapnia, improving/resolved Benign essential hypertension Acute on chronic kidney disease injury patient does have a chronic underlying ki dney disease Obstructive sleep apnea, noncompliant with CPAP History of respiratory failure requiring mechanical ventilation Chronic kidney disease stage IV Anemia of chronic disease Chronic left upper extremity lymphedema History of DVT Chronic atrial fibrillation Recommendation: Continue oxygen and titrate accordingly Use BiPAP at night Change a Bumex infusion to oral Bumex at 3 mg by mouth twice a day, add Zaroxolyn 2.5 mg daily Continue cardiac meds and anticoagulation therapy Encourage ambulation Transfer to a cardiac floor today We'll continue to follow. Time with Patient: Less than 30
[2023-06-20 11:45] LABS: Glucose,Whole Blood 118 mg/dL (70-110)
--- NOTE | 2023-06-20 12:10 | CDI ---
Documentation Clarification Form Date: 06/20/2023 11:40:23 AM From: Mira Gupta RN, CCDS Admit Date: 06/17/2023 09:34:00 AM Patient Name: Ankita Sorto Visit Number: [id number] Discharge Date: ATTENTION: The Clinical Documentation Specialists (CDI) and [facility] Coding Staff appreciate your assistance in clarifying documentation. Please respond to the clarification below the line at the bottom and electronically sign. The CDI & [facility] Coding staff will review the response and follow-up if needed. Please note: Queries are made part of the Legal Health Record. If you have any questions, please contact the author of this message via ITS. Dr. Jayla Boswell The patient has hypotension noted in the progress notes on 06/17/28 and was started on Norepinephrine drip. Based on this information and the findings below, is there an additional diagnosis that is clinically appropriate for this patient? 06/17 IM Progress note: the patient apparently received Dilaudid, resulted in low blood pressure. Patient history/risk factors: Coronary Artery Disease, Heart Failure, Deep Vein Thrombosis, Hypertension, Osteoarthritis, morbid obesity, obstructive sleep apnea, oxygen dependence with 3 L/m, chronic kidney disease stage IV. Clinical Indicators: 48-year-old female brought into the hospital because of myalgias, developed an acute on top of chronic hypercapnic respiratory failure got transferred to the intensive care unit. On 06/17 progress notes has her blood pressure is marginal patient is on norepinephrine drip 0.03 mcg/kg/m 06/17 VS: 93/47 74 14 97.7 (ax) 91 BIPAP FIO2 50 (01:00) VS: 90/47 67 15 Treatment: ICU/Telemetry monitoring Norepinephrine drip 0.03 mcg/kg/m titrate accordingly maintaining a mean arterial pressure of 65 Is there an additional diagnosis that is clinically appropriate for this patient? [ ] Hypotensive Shock [ ] Hypotension without Shock [ ] Hypotension due to possible adverse reaction to Dilaudid (specify with or without shock) [ X] Unable to determine [ ] Other, please specify (Template Last Reviewed: October 2022) MTDD
[2023-06-20 12:47] VITALS: BMI 62.7
[2023-06-20 15:04] LABS: ANA Pattern SPK
[2023-06-20 16:10] LABS: Glucose,Whole Blood 96 mg/dL (70-110)
[2023-06-20 19:36] LABS: Glucose,Whole Blood 148 mg/dL (70-110)
[2023-06-21] MEDS: HYDROmorphone 1 MG/ML 1 ML SYRINGE IVP PRN ×3 (01:21→23:58)
--- NOTE | 2023-06-21 02:07 | PN ---
PROGRESS NOTE CHIEF COMPLAINT: Congestive heart failure. HISTORY OF PRESENT ILLNESS: This lady is doing fairly well. She is probably moving out of ICU today. REVIEW OF SYSTEMS: She has no complaints. She has no chest pain. PHYSICAL EXAMINATION: CHEST: Demonstrates breath sounds bilaterally. CARDIAC: Normal. ABDOMEN: Protuberant. EXTREMITIES: Edematous. IMPRESSION: 1. Cardiomyopathy with acute on chronic congestive heart failure. 2. Stage 5 chronic kidney disease. PLAN: Probably move to regular floor and probably home soon. MMODL / IJN: [id number] /
[2023-06-21 06:01] LABS: Glucose,Whole Blood 105 mg/dL (70-110)
[2023-06-21] MEDS: metOLazone 2.5 MG TAB PO SCH (08:38)
[2023-06-21] MEDS: AMIODARONE 200 MG TAB PO SCH (08:38)
[2023-06-21] MEDS: APIXABAN 2.5 MG TABLET PO SCH ×2 (08:38→21:54)
[2023-06-21] MEDS: BUMETANIDE 1 MG TAB PO SCH ×2 (08:38→21:54)
[2023-06-21] MEDS: MAGNESIUM OXIDE 400 MG TAB PO SCH (08:38)
[2023-06-21] MEDS: METOPROLOL SUCCINATE (ER) 100 MG TAB.ER.24H PO SCH (08:38)
[2023-06-21] MEDS: POTASSIUM CHLORIDE ER 20 MEQ TAB.ER PO SCH (08:38)
[2023-06-21] MEDS: ISOSORBIDE MONONITRATE ER 30 MG TAB.ER.24H PO SCH (08:38)
[2023-06-21] MEDS: PANTOPRAZOLE 40 MG/10 ML VIAL IVP SCH (08:38)
[2023-06-21] MEDS: FOLIC ACID 1 MG TAB PO SCH (08:38)
[2023-06-21 10:58] LABS: African American GFR (CKD) 14 (>60 ml/min/1.73 sqM); Blood Urea Nitrogen 81 mg/dL (7-17); Calcium 9.1 mg/dL (8.4-10.2); Chloride 98 mmol/L (98-107); Glucose 93 mg/dL (74-99); Magnesium 2.5 mg/dL (1.6-2.3); Non-African American GFR(CKD) 12 (>60 ml/min/1.73 sqM); Potassium 4.1 mmol/L (3.5-5.1); Sodium 143 mmol/L (137-145)
--- NOTE | 2023-06-21 10:58 | P.PN ---
Subjective Patient is seen in follow-up for acute kidney injury on chronic kidney disease. Renal function stable. Nonoliguric. On oral Bumex and metolazone. Currently on nasal cannula. Awake and alert. No active complaints. Vital signs are stable. General: Resting in bed. HEENT: Head exam is unremarkable. On nasal cannula. LUNGS: Scattered rhonchi. HEART: Rate and Rhythm are regular. ABDOMEN: Soft, obese. EXTREMITITES: 1+ edema. Objective - Vital Signs Vital signs: Vital Signs Temp 98.1 F 06/21/23 08:00 Pulse 67 06/21/23 08:00 Resp 18 06/21/23 08:00 BP 150/86 06/21/23 08:00 Pulse Ox 99 06/21/23 08:00 FiO2 35 06/21/23 03:37 Intake & Output 06/20/23 06/21/23 06/21/23 18:59 06:59 18:59 Intake Total 1050 180 Output Total 2805 2150 Balance -1755 -2150 180 Weight 181.7 kg 168.7 kg Intake: IV 30 .9 NS 30 Oral 1020 180 Output: Urine 2805 2150 Other: Voiding Method Indwelling Catheter Indwelling Catheter Indwelling Catheter - Labs CBC & Chem 7: 06/20/23 03:53 06/20/23 03:53 Labs: Abnormal Lab Results - Last 24 Hours (Table) 06/20/23 06/20/23 Range/Units 11:44 19:33 POC Glucose (mg/dL) 118 H 148 H (70-110) mg/dL Assessment and Plan Plan: Assessment: 1. Acute kidney injury secondary to ATN secondary to hypotension and cardiorenal syndrome. Creatinine stable at 4.3 yesterday. Nonoliguric. No hydronephrosis noted on CAT scan done November 2022. No hydronephrosis noted in the right kidney on ultrasound left kidney wasn't visualized. 2. Chronic kidney disease stage IIIB with baseline creatinine near 2. Serologies negative except positive THANH. UPC 1 g in 2021. 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 Doubt nephrotic syndrome as patient's albumin level was 4.1 dated 06/14/2023. 3. Acute on chronic diastolic CHF. 4. Volume overload. Improved with diuresis. 5. Acute on chronic hypercapnic respiratory failure. Plan: Maintain oral Bumex. Stop metolazone. Low-salt diet and 1500 mL fluid restriction. Follow-up serologies - negative except for positive THANH. Check UPC. Avoid nephrotoxins. Continue to monitor renal function and urine output. Continue to assess daily for need for renal replacement therapy. No urgency at this time.
[2023-06-21 11:04] LABS: Anion Gap 8 mmol/L; Carbon Dioxide 37 mmol/L (22-30)
[2023-06-21 11:46] LABS: Glucose,Whole Blood 140 mg/dL (70-110)
--- NOTE | 2023-06-21 13:51 | P.PN ---
Subjective Progress Note Date: 06/21/23 Principal diagnosis: Acute on chronic hypoxic and hypercapnic respiratory failure secondary to Acute on chronic diastolic congestive heart failure Patient is a 48-year-old -[place] female with past medical history significant for CHF, hypertension, morbid obesity, obstructive sleep apnea without CPAP because it is broken, chronic oxygen dependence with 3 L/m nasal c annula mostly at night, previous ventilator dependent respiratory failure, hypertension, chronic kidney disease stage IV, left upper extremity lymphedema, anemia, and frequent urinary tract infections. Patient has frequent hospital admissions for congestive heart failure, hypercapnic respiratory failure and hypoxic respiratory failure. She was in the hospital back in April 2023 and the patient was discharged home on 05/24/2023 after being treated for decompensated respiratory failure, acute on top of chronic hypoxic and hypercapnic respiratory failure. The patient was at home. 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 She was brought into the hospital and she was admitted to the medical floor and overnight the patient became lethargic, confused, altered, and she developed an acute on top of chronic hypercapnic respiratory failure. Based on that, the patient got transferred to the intensive care unit. Initial blood gas showed a pH of 7.24 with a pCO2 of 77 and pO2 of 56 and this was on FiO2 of 32%. Currently the patient on a BiPAP at a pressure of 16/6 cm of water with FiO2 of 60%. Generator tidal volume is 450. The rate is at 14 with a minute ventilation of 6.7. The repeat blood gas showed a pH of 7.19 with a pCO2 of 87 and pO2 of 103. Chest x-ray shows cardiomegaly, and worsening pulmonary edema. Blood work shows a white cell count of 7.5, hemoglobin of 11 and a platelet count of 136. BUN is at 67 with a creatinine of 3.5 and a sodium level is at 142. The proBNP level is 11,600, troponins of 0.07, UA showed +3 protein is, the viral screen is negative. The patient is afebrile. She remains encephalopathic and lethargic at this point in time. She is able to tolerate the BiPAP without any major difficulties. Patient was reevaluated today on 06/17/2023, remains in the ICU, very poor marginal pulmonary status at best. Patient remains on BiPAP 16/6 at 50% FiO2 however I was able to cut down the FiO2 down to 40%. ABG showed a pO2 of 68 pCO2 of 80 pH of 7.22, patient seems to be comfortable in spite of her abnormal ABG. Chest x-ray is showing evidence of worsening congestive heart failure. Her blood pressure is marginal patient is on norepinephrine drip, and 0.03 mcg/kg/m she is also on Bumex which I have restarted this morning at 0.5 mg per hour. Patient is also on amiodarone, eliquis, Dilaudid, metoprolol which needs to be placed on hold if her blood pressure is marginal patient is also on Protonix. Electrolytes are basically normal except for bicarb of 32 BUN is 74 creatinine 3.80 showing deteriorating and worsening renal status. WBC count is 11 hemoglobin is 10.6. Renal ultrasound showed no evidence of hydronephrosis however the left kidney could not be visualized. Mostly because of the patient's habitus and overlying bowel gas. Patient was reevaluated today on 06/18/2023, remains in the ICU, she is much better today clinically compared to yesterday. She had significant amount of urine output with the Bumex drip overnight, I was able to transition the patient from BiPAP to nasal cannula, and she seems to be doing well with nasal cannula. In the meantime I'm keeping the patient on Bumex infusion at 0.5 mg per hour keeping her IV fluid at KVO. And we will continue to monitor electrolytes and renal profile. WBC count is 5.9 hemoglobin is 10 electrolytes are normal BUN is up to 81 creatinine is 4.35. Being followed by nephrology. Chest x-ray was reviewed and shows improvement in her pulmonary edema. Patient was reevaluated today on 06/19/2023, remains in the ICU, she is down to 4 L nasal cannula and utilizes BiPAP at night 16/6/35%. Remains on Bumex at 0.5 mg per hour renal functioning is better today down to 4.28 compared to creatinine 4.35 yesterday. Patient tells me that she is breathing easier, feeling much better, chest x-ray continues to show evidence of interstitial edema. For some reason patient is not being followed by cardiology at this point, although her overall presentation is a presentation of acute on chronic diastolic congestive heart failure, nonetheless she is improving with diuresis, she was on the verge of being intubated upon her initial presentation, but now she is improving, and no need for intubation as a matter of fact I would continue to monitor the patient for one more day in the ICU and plan to transfer the patient out of the ICU in the next 24 hours. Patient is not requiring any pressors is only requiring Bumex drip. In the last 5 days, the patient has been at least -7 L of fluids, and she continues to diurese with Bumex. WBC count is 6.5 hemoglobin is 10.7 a left lites are normal BUN is 83 creatinine 4.28 and bicarb is 31. Medications were all reviewed remains on amiodarone, eliquis, isosorbide, metoprolol 100 mg by mouth daily, off norepinephrine, on hernandez toprazole. Was reevaluated today on 06/20/2023, patient continues to feel better continues to diurese with Bumex infusion, her chronic kidney disease seems to be relatively stable, patient is none on record. Remains on 4 L nasal cannula, she had almost over 2.6 L of output last night in the last 24 hours. Patient will be transitioned to oral Bumex at 3 mg twice a day and I will add Zaroxolyn 2.5 mg daily. I plan to transfer the patient out of the ICU to a medical cardiac floor. Patient remains on low salt diet and 1500 fluid restriction, significant improvement noted since admission. WBC count is 6.2 hemoglobin 9.7 basic metabolic profile is normal bicarb is 38 BUN is 81 creatinine 4.30 Reevaluated today on 06/21/2023, patient continues to do fairly well, she is now on the medical floor, she is on oral Bumex and on metolazone. Continues to be in negative fluid balance. Creatinine is 4.08 today. Improved compared to creatinine over the last 3 days, no chest x-ray was done, but clinically the patient is breathing much better and much easier. She is on 4 L nasal cannula with O2 saturations are 98% Objective - Vital Signs Vital signs: Vital Signs Temp 98.1 F 06/21/23 08:00 Pulse 70 06/21/23 13:44 Resp 18 06/21/23 13:44 BP 130/69 06/21/23 11:45 Pulse Ox 98 06/21/23 11:45 FiO2 35 06/21/23 03:37 Intake & Output 06/20/23 06/21/23 06/21/23 18:59 06:59 18:59 Intake Total 1050 360 Output Total 2805 2150 1300 Balance -1755 -2150 -940 Weight 181.7 kg 168.7 kg Intake: IV 30 .9 NS 30 Oral 1020 360 Output: Urine 2805 2150 1300 Other: Voiding Method Indwelling Catheter Indwelling Catheter Indwelling Catheter - Exam Physical Exam: Revealed a morbidly obese female in mild respiratory distress, on 4 L nasal cannula Head: Atraumatic, normocephalic, short obese neck was noted. HEENT:[Neck is supple.] [No neck masses.] [No thyromegaly.] [No JVD.] Right IJ triple-lumen catheter is noted. Chest: [Clear throughout no crackles or rhonchi or wheezes Cardiac Exam: Irregular irregular rhythm. [Normal S1 and S2, no S3 gallop, no murmur.] Abdomen: [Obese, Soft, nontender, no megaly, no rebound, no guarding, normal bowel sounds.] Extremities: [No clubbing, resolve edema, no cyanosis.] Diminished distal pulses bilaterally. Neurological Exam: Alert and oriented 3. [No focal neurologic deficit.] Psychiatric: Normal mood affect and normal mental status examination. Skin: No rashes. - Labs CBC & Chem 7: 06/20/23 03:53 06/21/23 10:15 Labs: Abnormal Lab Results - Last 24 Hours (Table) 06/20/23 06/21/23 06/21/23 Range/Units 19:33 10:15 11:42 Carbon Dioxide 37 H (22-30) mmol/L BUN 81 H (7-17) mg/dL Creatinine 4.08 H (0.52-1.04) mg/dL POC Glucose (mg/dL) 148 H 140 H (70-110) mg/dL Magnesium 2.5 H (1.6-2.3) mg/dL Assessment and Plan Assessment: Impression: Acute on chronic hypoxic and hypercapnic respiratory failure secondary to acute on chronic diastolic congestive heart failure/pulmonary edema. Patient had multiple echocardiograms, obviously it is difficult to determine exact ejection fraction, and ejection fractions have been as low as 30% and as high as 60% over the last 6 months. Echocardiogram in November showed ejection fraction of 30-35%. No echocardiogram has been done on this admission. Cardiology saw the patient initially and now not following the patient anymore. Morbid obesity, BMI of 75 Acute metabolic encephalopathy secondary to hypoxia and hypercapnia, improving/resolved Benign essential hypertension Acute on chronic kidney disease injury patient does have a chronic underlying kidney disease Obstructive sleep apnea, noncompliant with CPAP History of respiratory failure requiring mechanical ventilation Chronic kidney disease stage IV Anemia of chronic disease Chronic left upper extremity lymphedema History of DVT Chronic atrial fibrillation Recommendation: Continue present treatment plan including oral Bumex and metolazone. Resume her cardiac meds and anticoagulations therapy Consider discharge planning if cleared by other consultants on the case and follow-up on outpatient basis. Continue oxygen and titrate accordingly Use BiPAP at night We'll continue to follow. Time with Patient: Less than 30
--- NOTE | 2023-06-21 14:25 | P.PN ---
Subjective Progress Note Date: 06/21/23 Patient is a 48-year-old -[place] female with past medical history significant for CHF, hypertension, morbid obesity, obstructive sleep apnea without CPAP because it is broken, chronic oxygen dependence with 3 L/m nasal cannula mostly at night, previous ventilator dependent respiratory failure, hypertension, chronic kidney disease stage IV, left upper extremity lymphedema, anemia, and frequent urinary tract infections. Patient has frequent hospital admissions for congestive heart failure, hypercapnic respiratory failure and hypoxic respiratory failure. She was in the hospital back in April 2023 and the patient was discharged home on 05/24/2023 after being treated for decompensated respiratory failure, acute on top of chronic hypoxic and hypercapnic respiratory failure. The patient was at home. 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 She was brought into the hospital and she was admitted to the medical floor and overnight the patient became lethargic, confused, altered, and she developed an acute on top of chronic hypercapnic respiratory failure. 06/21. Patient seen and examined. States swelling of legs is improved. Still gets short of breath on exertion. REVIEW OF SYSTEMS: CONSTITUTIONAL: No fever, no malaise,. CARDIOVASCULAR: No chest pain, no palpitations, no syncope. PULMONARY: No shortness of breath, no cough, GASTROINTESTINAL: No diarrhea, no nausea, no vomiting, no abdominal pain. NEUROLOGICAL: No headaches, no weakness, PHYSICAL EXAMINATION: GENERAL: The patient is alert and oriented x3, not in any acute distress. Well developed, well nourished. HEENT: Pupils are round and equally reacting to light. EOMI. No scleral icterus. No conjunctival pallor. Normocephalic, atraumatic. No pharyngeal erythema. No thyromegaly. CARDIOVASCULAR: S1 and S2 present. No murmurs, rubs, or gallops. PULMONARY: Chest is clear to auscultation, no wheezing or crackles. ABDOMEN: Soft, nontender, nondistended, normoactive bowel sounds. No palpable organomegaly. MUSCULOSKELETAL: No joint swelling or deformity. EXTREMITIES: 1+ pitting edema lower extremities bilaterally NEUROLOGICAL: Gross neurological examination did not reveal any focal deficits. SKIN: No rashes. Assessment and plan Acute on chronic hypoxic and hypercapnic respiratory failure acute on chronic diastolic congestive heart failure pulmonary edema. Morbid obesity, BMI of 75 Acute metabolic encephalopathy secondary to hypoxia and hypercapnia, improving/r esolved Benign essential hypertension Obstructive sleep apnea, noncompliant with CPAP Anemia of chronic disease Chronic left upper extremity lymphedema History of DVT Chronic atrial fibrillation Acute kidney injury secondary to ATN secondary to hypotension and cardiorenal syndrome. Monitor vital signs Monitor CBC Monitor CMP Continue telemetry monitoring Continue oxygen supplementation Use of BiPAP at night Encourage use of I-S Continue Bumex Stop metolazone Strict I's and O's and daily weights Nephrology followed Cardiology following Pulmonology following Labs and medication were reviewed.. Continue same treatment. Continue with symptomatic treatment. Resume home medication. Monitor labs and vitals. DVT and GI prophylaxis. Further recommendations as per clinical course of the patient Dictation was produced using [employer] dictation software. please excuse any grammatical, word or spelling errors. Objective - Vital Signs Vital signs: Vital Signs Temp 98.1 F 06/21/23 08:00 Pulse 67 06/21/23 08:00 Resp 18 06/21/23 08:00 BP 150/86 06/21/23 08:00 Pulse Ox 99 06/21/23 08:00 FiO2 35 06/21/23 03:37 Intake & Output 06/20/23 06/21/23 06/21/23 18:59 06:59 18:59 Intake Total 1050 180 Output Total 2805 2150 Balance -1755 -2150 180 Weight 181.7 kg 168.7 kg Intake: IV 30 .9 NS 30 Oral 1020 180 Output: Urine 2805 2150 Other: Voiding Method Indwelling Catheter Indwelling Catheter Indwelling Catheter - Labs CBC & Chem 7: 06/20/23 03:53 06/21/23 10:15 Labs: Abnormal Lab Results - Last 24 Hours (Table) 06/20/23 06/20/23 06/21/23 Range/Units 11:44 19:33 10:15 Carbon Dioxide 37 H (22-30) mmol/L BUN 81 H (7-17) mg/dL Creatinine 4.08 H (0.52-1.04) mg/dL POC Glucose (mg/dL) 118 H 148 H (70-110) mg/dL Magnesium 2.5 H (1.6-2.3) mg/dL
[2023-06-21 15:37] LABS: Creatinine,Urine Random 37.5 mg/dL; Protein/Creatinine Ratio,Urine 2.4
[2023-06-21 16:34] LABS: Glucose,Whole Blood 145 mg/dL (70-110)
--- NOTE | 2023-06-21 16:53 | CDI ---
Documentation Clarification Form Date: 06/21/2023 04:52:38 PM From: Mira Gupta RN, CCDS Admit Date: 06/17/2023 09:34:00 AM Patient Name: Ankita Sorto Visit Number: [id number] Discharge Date: ATTENTION: The Clinical Documentation Specialists (CDI) and [facility] Coding Staff appreciate your assistance in clarifying documentation. Please respond to the clarification below the line at the bottom and electronically sign. The CDI & [facility] Coding staff will review the response and follow-up if needed. Please note: Queries are made part of the Legal Health Record. If you have any questions, please contact the author of this message via ITS. Dr. Shraddha Miller The patient has hypotension noted in the progress notes on 06/17/28 and was started on Norepinephrine drip. Based on this information and the findings below, is there an additional diagnosis that is clinically appropriate for this patient? 06/17 IM Progress note: the patient apparently received Dilaudid, resulted in low blood pressure. Patient history/risk factors: Coronary Artery Disease, Heart Failure, Deep Vein Thrombosis, Hypertension, Osteoarthritis, morbid obesity, obstructive sleep apnea, oxygen dependence with 3 L/m, chronic kidney disease stage IV. Clinical Indicators: 48-year-old female brought into the hospital because of myalgias, developed an acute on top of chronic hypercapnic respiratory failure got transferred to the intensive care unit. On 06/17IM progress notes has her blood pressure is marginal patient is on norepinephrine drip 0.03 mcg/kg/m 06/17 VS: 93/47 74 14 97.7 (ax) 91 BIPAP FIO2 50 (01:00) VS: 90/47 67 15 Treatment: ICU/Telemetry monitoring Norepinephrine drip 0.03 mcg/kg/m titrate accordingly maintaining a mean arterial pressure of 65. Is there an additional diagnosis that is clinically appropriate for this patient? [ ] Hypotensive Shock [ ] Hypotension without Shock [ x ] Hypotension due to possible adverse reaction to Dilaudid (specify with or without shock) [ ] Unable to determine [ ] Other, please specify MTDD
[2023-06-21 20:14] LABS: Glucose,Whole Blood 96 mg/dL (70-110)
[2023-06-22 06:08] LABS: Glucose,Whole Blood 91 mg/dL (70-110)
[2023-06-22] MEDS: PANTOPRAZOLE 40 MG/10 ML VIAL IVP SCH (08:30)
[2023-06-22] MEDS: ISOSORBIDE MONONITRATE ER 30 MG TAB.ER.24H PO SCH (08:30)
[2023-06-22] MEDS: METOPROLOL SUCCINATE (ER) 100 MG TAB.ER.24H PO SCH (08:30)
[2023-06-22] MEDS: MAGNESIUM OXIDE 400 MG TAB PO SCH (08:30)
[2023-06-22] MEDS: AMIODARONE 200 MG TAB PO SCH (08:31)
[2023-06-22] MEDS: POTASSIUM CHLORIDE ER 20 MEQ TAB.ER PO SCH (08:31)
[2023-06-22] MEDS: BUMETANIDE 1 MG TAB PO SCH ×2 (08:31→21:10)
[2023-06-22] MEDS: FOLIC ACID 1 MG TAB PO SCH (08:31)
[2023-06-22] MEDS: APIXABAN 2.5 MG TABLET PO SCH ×2 (08:31→21:10)
[2023-06-22 09:45] LABS: ALT 11 U/L (4-34); AST 19 U/L (14-36); African American GFR (CKD) 18 (>60 ml/min/1.73 sqM); Albumin 2.8 g/dL (3.5-5.0); Alkaline Phosphatase 46 U/L (38-126); Anion Gap 5 mmol/L; Blood Urea Nitrogen 76 mg/dL (7-17); Carbon Dioxide 35 mmol/L (22-30); Chloride 100 mmol/L (98-107); Glucose 123 mg/dL (74-99); Magnesium 2.1 mg/dL (1.6-2.3); Non-African American GFR(CKD) 16 (>60 ml/min/1.73 sqM); Potassium 3.4 mmol/L (3.5-5.1); Sodium 140 mmol/L (137-145); Total Bilirubin 0.6 mg/dL (0.2-1.3); Total Protein 6.7 g/dL (6.3-8.2)
[2023-06-22] MEDS ORDERED: POTASSIUM CHLORIDE ER 20 MEQ TAB.ER PO STA (10:40)
--- NOTE | 2023-06-22 10:41 | P.PN ---
Subjective Patient is seen in follow-up for acute kidney injury on chronic kidney disease. Renal function improving. Nonoliguric. On oral Bumex. Currently on nasal cannula. Awake and alert. No active complaints. Vital signs are stable. General: Resting in bed. HEENT: Head exam is unremarkable. On nasal cannula. LUNGS: Scattered rhonchi. HEART: Rate and Rhythm are regular. ABDOMEN: Soft, obese. EXTREMITITES: 1+ edema. Objective - Vital Signs Vital signs: Vital Signs Temp 98.1 F 06/22/23 08:00 Pulse 71 06/22/23 08:00 Resp 16 06/22/23 08:00 BP 139/84 06/22/23 08:00 Pulse Ox 100 06/22/23 08:26 FiO2 35 06/22/23 03:30 Intake & Output 06/21/23 06/22/23 06/22/23 18:59 06:59 18:59 Intake Total 540 776 Output Total 3100 1100 325 Balance -2560 -1100 451 Weight 175 kg Intake: Oral 540 776 Output: Urine 3100 1100 325 Other: Voiding Method Indwelling Catheter Indwelling Catheter - Labs CBC & Chem 7: 06/20/23 03:53 06/22/23 09:00 Labs: Abnormal Lab Results - Last 24 Hours (Table) 06/21/23 06/21/23 06/21/23 Range/Units 10:15 11:42 16:33 Potassium (3.5-5.1) mmol/L Carbon Dioxide 37 H (22-30) mmol/L BUN 81 H (7-17) mg/dL Creatinine 4.08 H (0.52-1.04) mg/dL Glucose (74-99) mg/dL POC Glucose (mg/dL) 140 H 145 H (70-110) mg/dL Calcium (8.4-10.2) mg/dL Magnesium 2.5 H (1.6-2.3) mg/dL Albumin (3.5-5.0) g/dL 06/22/23 Range/Units 09:00 Potassium 3.4 L (3.5-5.1) mmol/L Carbon Dioxide 35 H (22-30) mmol/L BUN 76 H (7-17) mg/dL Creatinine 3.32 H (0.52-1.04) mg/dL Glucose 123 H (74-99) mg/dL POC Glucose (mg/dL) (70-110) mg/dL Calcium 8.0 L (8.4-10.2) mg/dL Magnesium (1.6-2.3) mg/dL Albumin 2.8 L (3.5-5.0) g/dL Assessment and Plan Plan: Assessment: 1. Acute kidney injury secondary to ATN secondary to hypotension and cardiorenal syndrome. Renal function improving. Creatinine 3.32 today. Nonoliguric. No hydronephrosis noted on CAT scan done November 2022. No hydronephrosis noted in the right kidney on ultrasound left kidney wasn't visualized. 2. Chronic kidney disease stage IIIB with baseline creatinine near 2. Serologies negative except positive THANH. UPC 1 g in 2021. 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 Doubt nephrotic syndrome as patient's albumin level was 4.1 dated 06/14/2023. 3. Acute on chronic diastolic CHF. 4. Volume overload. Improved with diuresis. 5. Acute on chronic hypercapnic respiratory failure. 6. Hypokalemia from diuresis. Plan: Maintain oral Bumex. Low-salt diet and 1500 mL fluid restriction. Follow-up serologies - negative except for positive THANH. UPC 2.4g. Avoid nephrotoxins. Continue to monitor renal function and urine output. Continue to assess daily for need for renal replacement therapy. No urgency at this time. Replace potassium. Discontinue Colon catheter. Kidney biopsy discussed with patient. Will be considered outpatient.
[2023-06-22 11:48] LABS: Glucose,Whole Blood 93 mg/dL (70-110)
--- NOTE | 2023-06-22 12:53 | P.PN ---
Subjective Progress Note Date: 06/22/23 Principal diagnosis: Acute on chronic hypoxic and hypercapnic respiratory failure secondary to Acute on chronic diastolic congestive heart failure Patient is a 48-year-old -[place] female with past medical history significant for CHF, hypertension, morbid obesity, obstructive sleep apnea without CPAP because it is broken, chronic oxygen dependence with 3 L/m nasal c annula mostly at night, previous ventilator dependent respiratory failure, hypertension, chronic kidney disease stage IV, left upper extremity lymphedema, anemia, and frequent urinary tract infections. Patient has frequent hospital admissions for congestive heart failure, hypercapnic respiratory failure and hypoxic respiratory failure. She was in the hospital back in April 2023 and the patient was discharged home on 05/24/2023 after being treated for decompensated respiratory failure, acute on top of chronic hypoxic and hypercapnic respiratory failure. The patient was at home. 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 She was brought into the hospital and she was admitted to the medical floor and overnight the patient became lethargic, confused, altered, and she developed an acute on top of chronic hypercapnic respiratory failure. Based on that, the patient got transferred to the intensive care unit. Initial blood gas showed a pH of 7.24 with a pCO2 of 77 and pO2 of 56 and this was on FiO2 of 32%. Currently the patient on a BiPAP at a pressure of 16/6 cm of water with FiO2 of 60%. Generator tidal volume is 450. The rate is at 14 with a minute ventilation of 6.7. The repeat blood gas showed a pH of 7.19 with a pCO2 of 87 and pO2 of 103. Chest x-ray shows cardiomegaly, and worsening pulmonary edema. Blood work shows a white cell count of 7.5, hemoglobin of 11 and a platelet count of 136. BUN is at 67 with a creatinine of 3.5 and a sodium level is at 142. The proBNP level is 11,600, troponins of 0.07, UA showed +3 protein is, the viral screen is negative. The patient is afebrile. She remains encephalopathic and lethargic at this point in time. She is able to tolerate the BiPAP without any major difficulties. Patient was reevaluated today on 06/17/2023, remains in the ICU, very poor marginal pulmonary status at best. Patient remains on BiPAP 16/6 at 50% FiO2 however I was able to cut down the FiO2 down to 40%. ABG showed a pO2 of 68 pCO2 of 80 pH of 7.22, patient seems to be comfortable in spite of her abnormal ABG. Chest x-ray is showing evidence of worsening congestive heart failure. Her blood pressure is marginal patient is on norepinephrine drip, and 0.03 mcg/kg/m she is also on Bumex which I have restarted this morning at 0.5 mg per hour. Patient is also on amiodarone, eliquis, Dilaudid, metoprolol which needs to be placed on hold if her blood pressure is marginal patient is also on Protonix. Electrolytes are basically normal except for bicarb of 32 BUN is 74 creatinine 3.80 showing deteriorating and worsening renal status. WBC count is 11 hemoglobin is 10.6. Renal ultrasound showed no evidence of hydronephrosis however the left kidney could not be visualized. Mostly because of the patient's habitus and overlying bowel gas. Patient was reevaluated today on 06/18/2023, remains in the ICU, she is much better today clinically compared to yesterday. She had significant amount of urine output with the Bumex drip overnight, I was able to transition the patient from BiPAP to nasal cannula, and she seems to be doing well with nasal cannula. In the meantime I'm keeping the patient on Bumex infusion at 0.5 mg per hour keeping her IV fluid at KVO. And we will continue to monitor electrolytes and renal profile. WBC count is 5.9 hemoglobin is 10 electrolytes are normal BUN is up to 81 creatinine is 4.35. Being followed by nephrology. Chest x-ray was reviewed and shows improvement in her pulmonary edema. Patient was reevaluated today on 06/19/2023, remains in the ICU, she is down to 4 L nasal cannula and utilizes BiPAP at night 16/6/35%. Remains on Bumex at 0.5 mg per hour renal functioning is better today down to 4.28 compared to creatinine 4.35 yesterday. Patient tells me that she is breathing easier, feeling much better, chest x-ray continues to show evidence of interstitial edema. For some reason patient is not being followed by cardiology at this point, although her overall presentation is a presentation of acute on chronic diastolic congestive heart failure, nonetheless she is improving with diuresis, she was on the verge of being intubated upon her initial presentation, but now she is improving, and no need for intubation as a matter of fact I would continue to monitor the patient for one more day in the ICU and plan to transfer the patient out of the ICU in the next 24 hours. Patient is not requiring any pressors is only requiring Bumex drip. In the last 5 days, the patient has been at least -7 L of fluids, and she continues to diurese with Bumex. WBC count is 6.5 hemoglobin is 10.7 a left lites are normal BUN is 83 creatinine 4.28 and bicarb is 31. Medications were all reviewed remains on amiodarone, eliquis, isosorbide, metoprolol 100 mg by mouth daily, off norepinephrine, on hernandez toprazole. Was reevaluated today on 06/20/2023, patient continues to feel better continues to diurese with Bumex infusion, her chronic kidney disease seems to be relatively stable, patient is none on record. Remains on 4 L nasal cannula, she had almost over 2.6 L of output last night in the last 24 hours. Patient will be transitioned to oral Bumex at 3 mg twice a day and I will add Zaroxolyn 2.5 mg daily. I plan to transfer the patient out of the ICU to a medical cardiac floor. Patient remains on low salt diet and 1500 fluid restriction, significant improvement noted since admission. WBC count is 6.2 hemoglobin 9.7 basic metabolic profile is normal bicarb is 38 BUN is 81 creatinine 4.30 Reevaluated today on 06/21/2023, patient continues to do fairly well, she is now on the medical floor, she is on oral Bumex and on metolazone. Continues to be in negative fluid balance. Creatinine is 4.08 today. Improved compared to creatinine over the last 3 days, no chest x-ray was done, but clinically the patient is breathing much better and much easier. She is on 4 L nasal cannula with O2 saturations are 98% Reevaluated today on 06/22/2023, patient continues to do well, she is now on the medical floor, remains on diuretics including Bumex and metolazone, remains in negative fluid balance, renal functioning continues to improve steadily. Patient is now on 4 L nasal cannula and her O2 saturation is 98-100%. Basic metabolic profile is normal her creatinine is down to 3.32. Objective - Vital Signs Vital signs: Vital Signs Temp 98.1 F 06/22/23 08:00 Pulse 68 06/22/23 12:00 Resp 16 06/22/23 12:00 BP 146/95 06/22/23 12:00 Pulse Ox 98 06/22/23 12:00 FiO2 35 06/22/23 03:30 Intake & Output 06/21/23 06/22/23 06/22/23 18:59 06:59 18:59 Intake Total 540 776 Output Total 3100 1100 325 Balance -2560 -1100 451 Weight 175 kg Intake: Oral 540 776 Output: Urine 3100 1100 325 Other: Voiding Method Indwelling Catheter Indwelling Catheter - Exam Physical Exam: Revealed a morbidly obese female in mild respiratory distress, on 4 L nasal cannula Head: Atraumatic, normocephalic, short obese neck was noted. HEENT:[Neck is supple.] [No neck masses.] [No thyromegaly.] [No JVD.] Right IJ triple-lumen catheter is noted. Chest: [Clear throughout no crackles or rhonchi or wheezes Cardiac Exam: Irregular irregular rhythm. [Normal S1 and S2, no S3 gallop, no murmur.] Abdomen: [Obese, Soft, nontender, no megaly, no rebound, no guarding, normal bowel sounds.] Extremities: [No clubbing, resolve edema, no cyanosis.] Diminished distal pulses bilaterally. Neurological Exam: Alert and oriented 3. [No focal neurologic deficit.] Psychiatric: Normal mood affect and normal mental status examination. Skin: No rashes. - Labs CBC & Chem 7: 06/20/23 03:53 06/22/23 09:00 Labs: Abnormal Lab Results - Last 24 Hours (Table) 06/21/23 06/22/23 Range/Units 16:33 09:00 Potassium 3.4 L (3.5-5.1) mmol/L Carbon Dioxide 35 H (22-30) mmol/L BUN 76 H (7-17) mg/dL Creatinine 3.32 H (0.52-1.04) mg/dL Glucose 123 H (74-99) mg/dL POC Glucose (mg/dL) 145 H (70-110) mg/dL Calcium 8.0 L (8.4-10.2) mg/dL Albumin 2.8 L (3.5-5.0) g/dL Assessment and Plan Assessment: Impression: Acute on chronic hypoxic and hypercapnic respiratory failure secondary to acute on chronic diastolic congestive heart failure/pulmonary edema. Patient had multiple echocardiograms, obviously it is difficult to determine exact ejection fraction, and ejection fractions have been as low as 30% and as high as 60% over the last 6 months. Echocardiogram in November showed ejection fraction of 30-35%. No echocardiogram has been done on this admission. Cardiology saw the patient initially and now not following the patient anymore. Morbid obesity, BMI of 75 Acute metabolic encephalopathy secondary to hypoxia and hypercapnia, improving/resolved Benign essential hypertension Acute on chronic kidney disease injury patient does have a chronic underlying kidney disease Obstructive sleep apnea, noncompliant with CPAP History of respiratory failure requiring mechanical ventilation Chronic kidney disease stage IV Anemia of chronic disease Chronic left upper extremity lymphedema History of DVT Chronic atrial fibrillation Recommendation: Continue Bumex and metolazone. Continue cardiac meds and anticoagulations therapy Consider discharge planning 8 severe clear by nephrology and cardiology Continue oxygen and titrate accordingly Use BiPAP at night Remove the central line in the next 24 hours We'll continue to follow. Time with Patient: Less than 30
--- NOTE | 2023-06-22 14:28 | P.PN ---
Subjective Progress Note Date: 06/22/23 Patient is a 48-year-old -[place] female with past medical history significant for CHF, hypertension, morbid obesity, obstructive sleep apnea without CPAP because it is broken, chronic oxygen dependence with 3 L/m nasal cannula mostly at night, previous ventilator dependent respiratory failure, hypertension, chronic kidney disease stage IV, left upper extremity lymphedema, anemia, and frequent urinary tract infections. Patient has frequent hospital admissions for congestive heart failure, hypercapnic respiratory failure and hypoxic respiratory failure. She was in the hospital back in April 2023 and the patient was discharged home on 05/24/2023 after being treated for decompensated respiratory failure, acute on top of chronic hypoxic and hypercapnic respiratory failure. The patient was at home. 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 She was brought into the hospital and she was admitted to the medical floor and overnight the patient became lethargic, confused, altered, and she developed an acute on top of chronic hypercapnic respiratory failure. 06/21. Patient seen and examined. States swelling of legs is improved. Still gets short of breath on exertion. 06/22. Patient seen and examined. Currently on 4 L of oxygen. Denies any acute issues overnight. Nephrology discussed with patient regarding kidney Biopsy, it would be entertained outpatient. REVIEW OF SYSTEMS: CONSTITUTIONAL: No fever, no malaise,. CARDIOVASCULAR: No chest pain, no palpitations, no syncope. PULMONARY: No shortness of breath, no cough, GASTROINTESTINAL: No diarrhea, no nausea, no vomiting, no abdominal pain. NEUROLOGICAL: No headaches, no weakness, PHYSICAL EXAMINATION: GENERAL: The patient is alert and oriented x3, not in any acute distress. Well developed, well nourished. HEENT: Pupils are round and equally reacting to light. EOMI. No scleral icterus. No conjunctival pallor. Normocephalic, atraumatic. No pharyngeal erythema. No thyromegaly. CARDIOVASCULAR: S1 and S2 present. No murmurs, rubs, or gallops. PULMONARY: Chest is clear to auscultation, no wheezing or crackles. ABDOMEN: Soft, nontender, nondistended, normoactive bowel sounds. No palpable organomegaly. MUSCULOSKELETAL: No joint swelling or deformity. EXTREMITIES: 1+ pitting edema lower extremities bilaterally NEUROLOGICAL: Gross neurological examination did not reveal any focal deficits. SKIN: No rashes. Assessment and plan Acute on chronic hypoxic and hypercapnic respiratory failure acute on chronic diastolic congestive heart failure pulmonary edema. Morbid obesity, BMI of 75 Acute metabolic encephalopathy secondary to hypoxia and hypercapnia, improving/resolved Benign essential hypertension Obstructive sleep apnea, noncompliant with CPAP Anemia of chronic disease Chronic left upper extremity lymphedema History of DVT Chronic atrial fibrillation Acute kidney injury secondary to ATN secondary to hypotension and cardiorenal syndrome. Monitor vital signs Monitor CBC Monitor CMP Continue telemetry monitoring Continue oxygen supplementation Use of BiPAP at night Encourage use of I-S Continue Bumex Strict I's and O's and daily weights Nephrology followed , recommend outpatient kidney biopsy Cardiology following Pulmonology following Labs and medication were reviewed.. Continue same treatment. Continue with symptomatic treatment. Resume home medication. Monitor labs and vitals. DVT and GI prophylaxis. Further recommendations as per clinical course of the patient Dictation was produced using [employer] dictation software. please excuse any grammatical, word or spelling errors. Objective - Vital Signs Vital signs: Vital Signs Temp 98.1 F 06/22/23 08:00 Pulse 71 06/22/23 08:00 Resp 16 06/22/23 08:00 BP 139/84 06/22/23 08:00 Pulse Ox 100 06/22/23 08:26 FiO2 35 06/22/23 03:30 Intake & Output 06/21/23 06/22/23 06/22/23 18:59 06:59 18:59 Intake Total 540 776 Output Total 3100 1100 325 Balance -2560 -1100 451 Weight 175 kg Intake: Oral 540 776 Output: Urine 3100 1100 325 Other: Voiding Method Indwelling Catheter Indwelling Catheter - Labs CBC & Chem 7: 06/20/23 03:53 06/22/23 09:00 Labs: Abnormal Lab Results - Last 24 Hours (Table) 06/21/23 06/21/23 06/21/23 Range/Units 10:15 11:42 16:33 Carbon Dioxide 37 H (22-30) mmol/L BUN 81 H (7-17) mg/dL Creatinine 4.08 H (0.52-1.04) mg/dL POC Glucose (mg/dL) 140 H 145 H (70-110) mg/dL Magnesium 2.5 H (1.6-2.3) mg/dL
[2023-06-22 16:23] LABS: Glucose,Whole Blood 83 mg/dL (70-110)
[2023-06-22] MEDS: HYDROmorphone 1 MG/ML 1 ML SYRINGE IVP PRN ×2 (16:51→21:11)
[2023-06-22 20:07] LABS: Glucose,Whole Blood 117 mg/dL (70-110)
[2023-06-23 06:15] LABS: Glucose,Whole Blood 81 mg/dL (70-110)
[2023-06-23] MEDS: PANTOPRAZOLE 40 MG/10 ML VIAL IVP SCH (08:47)
[2023-06-23] MEDS: BUMETANIDE 1 MG TAB PO SCH ×2 (08:47→21:04)
[2023-06-23] MEDS: ISOSORBIDE MONONITRATE ER 30 MG TAB.ER.24H PO SCH (08:47)
[2023-06-23] MEDS: METOPROLOL SUCCINATE (ER) 100 MG TAB.ER.24H PO SCH (08:47)
[2023-06-23] MEDS: MAGNESIUM OXIDE 400 MG TAB PO SCH (08:47)
[2023-06-23] MEDS: APIXABAN 2.5 MG TABLET PO SCH ×2 (08:47→21:04)
[2023-06-23] MEDS: AMIODARONE 200 MG TAB PO SCH (08:47)
[2023-06-23] MEDS: POTASSIUM CHLORIDE ER 20 MEQ TAB.ER PO SCH (08:47)
[2023-06-23] MEDS: FOLIC ACID 1 MG TAB PO SCH (08:47)
[2023-06-23] MEDS: HYDROmorphone 1 MG/ML 1 ML SYRINGE IVP PRN ×2 (08:53→21:04)
[2023-06-23 09:27] LABS: Anisocytosis Slight; HCT 38.6 % (34.0-46.0); Hypochromasia Marked; MCH 22.7 pg (25.0-35.0); MCHC 28.6 g/dL (31.0-37.0); MCV 79.4 fL (80.0-100.0); Microcytosis Slight; Platelet Count 170 k/uL (150-450); Poikilocytosis Slight; RBC 4.86 m/uL (3.80-5.40); RDW 19.5 % (11.5-15.5); WBC 5.4 k/uL (3.8-10.6)
--- NOTE | 2023-06-23 10:31 | P.PN ---
Subjective Patient is seen in follow-up for acute kidney injury on chronic kidney disease. Renal function improving. Nonoliguric. On oral Bumex. Currently on nasal cannula. Awake and alert. No active complaints. Vital signs are stable. General: Resting in bed. HEENT: Head exam is unremarkable. On nasal cannula. LUNGS: Scattered rhonchi. HEART: Rate and Rhythm are regular. ABDOMEN: Soft, obese. EXTREMITITES: 1+ edema. Objective - Vital Signs Vital signs: Vital Signs Temp 98 F 06/23/23 04:00 Pulse 60 06/23/23 08:00 Resp 16 06/23/23 08:00 BP 160/106 06/23/23 08:00 Pulse Ox 100 06/23/23 08:00 FiO2 35 06/23/23 03:29 Intake & Output 06/22/23 06/23/23 06/23/23 18:59 06:59 18:59 Intake Total 998 118 Output Total 1925 200 Balance -927 -200 118 Weight 174.5 kg Intake: Oral 998 118 Output: Urine 1925 200 Other: Voiding Method Indwelling Catheter External Catheter - Labs CBC & Chem 7: 06/23/23 08:47 06/22/23 09:00 Labs: Abnormal Lab Results - Last 24 Hours (Table) 06/22/23 06/23/23 Range/Units 20:06 08:47 Hgb 11.0 L (11.4-16.0) gm/dL MCV 79.4 L (80.0-100.0) fL MCH 22.7 L (25.0-35.0) pg MCHC 28.6 L (31.0-37.0) g/dL RDW 19.5 H (11.5-15.5) % POC Glucose (mg/dL) 117 H (70-110) mg/dL Assessment and Plan Plan: Assessment: 1. Acute kidney injury secondary to ATN secondary to hypotension and cardiorenal syndrome. Renal function improving. Creatinine 3.32 yesterday. Nonoliguric. No hydronephrosis noted on CAT scan done November 2022. No hydronephrosis noted in the right kidney on ultrasound left kidney wasn't visualized. 2. Chronic kidney disease stage IIIB with baseline creatinine near 2. Serologies negative except positive THANH. UPC 1 g in 2021. 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 Doubt nephrotic syndrome as patient's albumin level was 4.1 dated 06/14/2023. 3. Acute on chronic diastolic CHF. 4. Volume overload. Improved with diuresis. 5. Acute on chronic hypercapnic respiratory failure. 6. Hypokalemia from diuresis. Replaced. Plan: Maintain oral Bumex. Low-salt diet and 1500 mL fluid restriction. Follow-up serologies - negative except for positive THANH. UPC 2.4g. Avoid nephrotoxins. Add losartan. If renal function continues to improve, will benefit from SGLT2i. Continue to monitor renal function and urine output. Continue to assess daily for need for renal replacement therapy. No urgency at this time. Colon catheter discontinued. Kidney biopsy discussed with patient. Will be considered outpatient.
--- NOTE | 2023-06-23 11:32 | P.PN ---
Subjective Progress Note Date: 06/23/23 Principal diagnosis: Acute on chronic hypoxic and hypercapnic respiratory failure secondary to Acute on chronic diastolic congestive heart failure Patient is a 48-year-old -[place] female with past medical history significant for CHF, hypertension, morbid obesity, obstructive sleep apnea without CPAP because it is broken, chronic oxygen dependence with 3 L/m nasal c annula mostly at night, previous ventilator dependent respiratory failure, hypertension, chronic kidney disease stage IV, left upper extremity lymphedema, anemia, and frequent urinary tract infections. Patient has frequent hospital admissions for congestive heart failure, hypercapnic respiratory failure and hypoxic respiratory failure. She was in the hospital back in April 2023 and the patient was discharged home on 05/24/2023 after being treated for decompensated respiratory failure, acute on top of chronic hypoxic and hypercapnic respiratory failure. The patient was at home. 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 She was brought into the hospital and she was admitted to the medical floor and overnight the patient became lethargic, confused, altered, and she developed an acute on top of chronic hypercapnic respiratory failure. Based on that, the patient got transferred to the intensive care unit. Initial blood gas showed a pH of 7.24 with a pCO2 of 77 and pO2 of 56 and this was on FiO2 of 32%. Currently the patient on a BiPAP at a pressure of 16/6 cm of water with FiO2 of 60%. Generator tidal volume is 450. The rate is at 14 with a minute ventilation of 6.7. The repeat blood gas showed a pH of 7.19 with a pCO2 of 87 and pO2 of 103. Chest x-ray shows cardiomegaly, and worsening pulmonary edema. Blood work shows a white cell count of 7.5, hemoglobin of 11 and a platelet count of 136. BUN is at 67 with a creatinine of 3.5 and a sodium level is at 142. The proBNP level is 11,600, troponins of 0.07, UA showed +3 protein is, the viral screen is negative. The patient is afebrile. She remains encephalopathic and lethargic at this point in time. She is able to tolerate the BiPAP without any major difficulties. Patient was reevaluated today on 06/17/2023, remains in the ICU, very poor marginal pulmonary status at best. Patient remains on BiPAP 16/6 at 50% FiO2 however I was able to cut down the FiO2 down to 40%. ABG showed a pO2 of 68 pCO2 of 80 pH of 7.22, patient seems to be comfortable in spite of her abnormal ABG. Chest x-ray is showing evidence of worsening congestive heart failure. Her blood pressure is marginal patient is on norepinephrine drip, and 0.03 mcg/kg/m she is also on Bumex which I have restarted this morning at 0.5 mg per hour. Patient is also on amiodarone, eliquis, Dilaudid, metoprolol which needs to be placed on hold if her blood pressure is marginal patient is also on Protonix. Electrolytes are basically normal except for bicarb of 32 BUN is 74 creatinine 3.80 showing deteriorating and worsening renal status. WBC count is 11 hemoglobin is 10.6. Renal ultrasound showed no evidence of hydronephrosis however the left kidney could not be visualized. Mostly because of the patient's habitus and overlying bowel gas. Patient was reevaluated today on 06/18/2023, remains in the ICU, she is much better today clinically compared to yesterday. She had significant amount of urine output with the Bumex drip overnight, I was able to transition the patient from BiPAP to nasal cannula, and she seems to be doing well with nasal cannula. In the meantime I'm keeping the patient on Bumex infusion at 0.5 mg per hour keeping her IV fluid at KVO. And we will continue to monitor electrolytes and renal profile. WBC count is 5.9 hemoglobin is 10 electrolytes are normal BUN is up to 81 creatinine is 4.35. Being followed by nephrology. Chest x-ray was reviewed and shows improvement in her pulmonary edema. Patient was reevaluated today on 06/19/2023, remains in the ICU, she is down to 4 L nasal cannula and utilizes BiPAP at night 16/6/35%. Remains on Bumex at 0.5 mg per hour renal functioning is better today down to 4.28 compared to creatinine 4.35 yesterday. Patient tells me that she is breathing easier, feeling much better, chest x-ray continues to show evidence of interstitial edema. For some reason patient is not being followed by cardiology at this point, although her overall presentation is a presentation of acute on chronic diastolic congestive heart failure, nonetheless she is improving with diuresis, she was on the verge of being intubated upon her initial presentation, but now she is improving, and no need for intubation as a matter of fact I would continue to monitor the patient for one more day in the ICU and plan to transfer the patient out of the ICU in the next 24 hours. Patient is not requiring any pressors is only requiring Bumex drip. In the last 5 days, the patient has been at least -7 L of fluids, and she continues to diurese with Bumex. WBC count is 6.5 hemoglobin is 10.7 a left lites are normal BUN is 83 creatinine 4.28 and bicarb is 31. Medications were all reviewed remains on amiodarone, eliquis, isosorbide, metoprolol 100 mg by mouth daily, off norepinephrine, on hernandez toprazole. Was reevaluated today on 06/20/2023, patient continues to feel better continues to diurese with Bumex infusion, her chronic kidney disease seems to be relatively stable, patient is none on record. Remains on 4 L nasal cannula, she had almost over 2.6 L of output last night in the last 24 hours. Patient will be transitioned to oral Bumex at 3 mg twice a day and I will add Zaroxolyn 2.5 mg daily. I plan to transfer the patient out of the ICU to a medical cardiac floor. Patient remains on low salt diet and 1500 fluid restriction, significant improvement noted since admission. WBC count is 6.2 hemoglobin 9.7 basic metabolic profile is normal bicarb is 38 BUN is 81 creatinine 4.30 Reevaluated today on 06/21/2023, patient continues to do fairly well, she is now on the medical floor, she is on oral Bumex and on metolazone. Continues to be in negative fluid balance. Creatinine is 4.08 today. Improved compared to creatinine over the last 3 days, no chest x-ray was done, but clinically the patient is breathing much better and much easier. She is on 4 L nasal cannula with O2 saturations are 98% Reevaluated today on 06/22/2023, patient continues to do well, she is now on the medical floor, remains on diuretics including Bumex and metolazone, remains in negative fluid balance, renal functioning continues to improve steadily. Patient is now on 4 L nasal cannula and her O2 saturation is 98-100%. Basic metabolic profile is normal her creatinine is down to 3.32. Reevaluated today on 06/23/2023, patient is doing great, asymptomatic, looking at her fluid balance, patient is negative almost 15 L since her admission. Her renal functioning is holding, patient remains nonoliguric. She is on oral Bumex. At 3 mg by mouth twice a day, off metolazone. Again I will recommend discontinuation of central line, and I will clear the patient for discharge home Objective - Vital Signs Vital signs: Vital Signs Temp 98 F 06/23/23 04:00 Pulse 60 06/23/23 08:00 Resp 16 06/23/23 08:00 BP 160/106 06/23/23 08:00 Pulse Ox 100 06/23/23 08:00 FiO2 35 06/23/23 03:29 Intake & Output 06/22/23 06/23/23 06/23/23 18:59 06:59 18:59 Intake Total 998 118 Output Total 1925 200 800 Balance -927 -200 -682 Weight 174.5 kg Intake: Oral 998 118 Output: Urine 1925 200 800 Other: Voiding Method Indwelling Catheter External Catheter External Catheter - Exam Physical Exam: Revealed a morbidly obese female in mild respiratory distress, on 3 L nasal cannula with O2 saturation 100% Head: Atraumatic, normocephalic, short obese neck was noted. HEENT:[Neck is supple.] [No neck masses.] [No thyromegaly.] [No JVD.] Right IJ triple-lumen catheter is noted. Chest: [Clear throughout no crackles or rhonchi or wheezes Cardiac Exam: Irregular irregular rhythm. [Normal S1 and S2, no S3 gallop, no murmur.] Abdomen: [Obese, Soft, nontender, no megaly, no rebound, no guarding, normal bowel sounds.] Extremities: [No clubbing, resolved edema, no cyanosis.] Good pulses bilaterally Neurological Exam: Alert and oriented 3. [No focal neurologic deficit.] Psychiatric: Normal mood affect and normal mental status examination. Skin: No rashes. - Labs CBC & Chem 7: 06/23/23 08:47 06/22/23 09:00 Labs: Abnormal Lab Results - Last 24 Hours (Table) 06/22/23 06/23/23 Range/Units 20:06 08:47 Hgb 11.0 L (11.4-16.0) gm/dL MCV 79.4 L (80.0-100.0) fL MCH 22.7 L (25.0-35.0) pg MCHC 28.6 L (31.0-37.0) g/dL RDW 19.5 H (11.5-15.5) % POC Glucose (mg/dL) 117 H (70-110) mg/dL Assessment and Plan Assessment: Impression: Acute on chronic hypoxic and hypercapnic respiratory failure secondary to acute on chronic diastolic congestive heart failure/pulmonary edema. Patient had multiple echocardiograms, obviously it is difficult to determine exact ejection fraction, and ejection fractions have been as low as 30% and as high as 60% over the last 6 months. Echocardiogram in November showed ejection fraction of 30-35%. No echocardiogram has been done on this admission. Cardiology saw the patient initially and now not following the patient anymore. Morbid obesity, BMI of 75 Acute metabolic encephalopathy secondary to hypoxia and hypercapnia, improving/resolved Benign essential hypertension Acute on chronic kidney disease injury patient does have a chronic underlying k idney disease Obstructive sleep apnea, noncompliant with CPAP History of respiratory failure requiring mechanical ventilation Chronic kidney disease stage IV Anemia of chronic disease Chronic left upper extremity lymphedema History of DVT Chronic atrial fibrillation Recommendation: Continue Bumex 3 mg by mouth twice a day Continue cardiac meds and anticoagulations therapy Discontinue central line Cleared for discharge We will sign off and see the patient on when necessary basis Time with Patient: Less than 30
[2023-06-23 11:45] LABS: Glucose,Whole Blood 109 mg/dL (70-110)
[2023-06-23] MEDS: LOSARTAN 25 MG TAB PO SCH (12:29)
--- NOTE | 2023-06-23 12:37 | P.PN ---
Subjective Progress Note Date: 06/23/23 Patient is a 48-year-old -[place] female with past medical history significant for CHF, hypertension, morbid obesity, obstructive sleep apnea without CPAP because it is broken, chronic oxygen dependence with 3 L/m nasal cannula mostly at night, previous ventilator dependent respiratory failure, hypertension, chronic kidney disease stage IV, left upper extremity lymphedema, anemia, and frequent urinary tract infections. Patient has frequent hospital admissions for congestive heart failure, hypercapnic respiratory failure and hypoxic respiratory failure. She was in the hospital back in April 2023 and the patient was discharged home on 05/24/2023 after being treated for decompensated respiratory failure, acute on top of chronic hypoxic and hypercapnic respiratory failure. The patient was at home. 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 She was brought into the hospital and she was admitted to the medical floor and overnight the patient became lethargic, confused, altered, and she developed an acute on top of chronic hypercapnic respiratory failure. 06/21. Patient seen and examined. States swelling of legs is improved. Still gets short of breath on exertion. 06/22. Patient seen and examined. Currently on 4 L of oxygen. Denies any acute issues overnight. Nephrology discussed with patient regarding kidney Biopsy, it would be entertained outpatient. 06/23. Patient seen and examined. States she feels better. Continues to be on 3 L of oxygen. Denies any lightheadedness or dizziness. REVIEW OF SYSTEMS: CONSTITUTIONAL: No fever, no malaise,. CARDIOVASCULAR: No chest pain, no palpitations, no syncope. PULMONARY: No shortness of breath, no cough, GASTROINTESTINAL: No diarrhea, no nausea, no vomiting, no abdominal pain. NEUROLOGICAL: No headaches, no weakness, PHYSICAL EXAMINATION: GENERAL: The patient is alert and oriented x3, not in any acute distress. Well developed, well nourished. HEENT: Pupils are round and equally reacting to light. EOMI. No scleral icterus. No conjunctival pallor. Normocephalic, atraumatic. No pharyngeal erythema. No thyromegaly. CARDIOVASCULAR: S1 and S2 present. No murmurs, rubs, or gallops. PULMONARY: Diminished breath sounds at the bases bilaterally ABDOMEN: Soft, nontender, nondistended, normoactive bowel sounds. No palpable organomegaly. MUSCULOSKELETAL: No joint swelling or deformity. EXTREMITIES: 1+ pitting edema lower extremities bilaterally NEUROLOGICAL: Gross neurological examination did not reveal any focal deficits. SKIN: No rashes. Assessment and plan Acute on chronic hypoxic and hypercapnic respiratory failure acute on chronic diastolic congestive heart failure pulmonary edema. Morbid obesity, BMI of 75 Acute metabolic encephalopathy secondary to hypoxia and hypercapnia, improving/resolved Benign essential hypertension Obstructive sleep apnea, noncompliant with CPAP Anemia of chronic disease Chronic left upper extremity lymphedema History of DVT Chronic atrial fibrillation Acute kidney injury secondary to ATN secondary to hypotension and cardiorenal syndrome. Monitor vital signs Monitor CBC Monitor CMP Continue telemetry monitoring Continue oxygen supplementation Use of BiPAP at night Encourage use of I-S Continue Bumex Strict I's and O's and daily weights Nephrology followed , recommend outpatient kidney biopsy Cardiology following Pulmonology following Labs and medication were reviewed.. Continue same treatment. Continue with symptomatic treatment. Resume home medication. Monitor labs and vitals. DVT and GI prophylaxis. Further recommendations as per clinical course of the patient Dictation was produced using [employer] dictation software. please excuse any grammatical, word or spelling errors. Objective - Vital Signs Vital signs: Vital Signs Temp 98 F 06/23/23 04:00 Pulse 60 06/23/23 08:00 Resp 16 06/23/23 08:00 BP 160/106 06/23/23 08:00 Pulse Ox 100 06/23/23 08:00 FiO2 35 06/23/23 03:29 Intake & Output 06/22/23 06/23/23 06/23/23 18:59 06:59 18:59 Intake Total 998 118 Output Total 1925 200 Balance -927 -200 118 Weight 174.5 kg Intake: Oral 998 118 Output: Urine 1925 200 Other: Voiding Method Indwelling Catheter External Catheter - Labs CBC & Chem 7: 06/23/23 08:47 06/22/23 09:00 Labs: Abnormal Lab Results - Last 24 Hours (Table) 06/22/23 06/23/23 Range/Units 20:06 08:47 Hgb 11.0 L (11.4-16.0) gm/dL MCV 79.4 L (80.0-100.0) fL MCH 22.7 L (25.0-35.0) pg MCHC 28.6 L (31.0-37.0) g/dL RDW 19.5 H (11.5-15.5) % POC Glucose (mg/dL) 117 H (70-110) mg/dL
[2023-06-23 15:57] LABS: ALT 12 U/L (4-34); AST 19 U/L (14-36); African American GFR (CKD) 15 (>60 ml/min/1.73 sqM); Albumin 3.5 g/dL (3.5-5.0); Alkaline Phosphatase 59 U/L (38-126); Anion Gap 8 mmol/L; Blood Urea Nitrogen 88 mg/dL (7-17); Calcium 9.1 mg/dL (8.4-10.2); Carbon Dioxide 39 mmol/L (22-30); Chloride 93 mmol/L (98-107); Glucose 105 mg/dL (74-99); Non-African American GFR(CKD) 13 (>60 ml/min/1.73 sqM); Potassium 4.5 mmol/L (3.5-5.1); Sodium 140 mmol/L (137-145); Total Bilirubin 0.6 mg/dL (0.2-1.3); Total Protein 8.2 g/dL (6.3-8.2)
[2023-06-23 16:43] LABS: Glucose,Whole Blood 105 mg/dL (70-110)
[2023-06-23 20:20] LABS: Glucose,Whole Blood 112 mg/dL (70-110)
[2023-06-24 05:51] LABS: Glucose,Whole Blood 100 mg/dL (70-110)
[2023-06-24 08:48] LABS: Anisocytosis Slight; HCT 35.3 % (34.0-46.0); HGB 9.8 gm/dL (11.4-16.0); Hypochromasia Marked; MCH 22.6 pg (25.0-35.0); MCHC 27.7 g/dL (31.0-37.0); MCV 81.5 fL (80.0-100.0); Mean Platelet Volume 8.3; Microcytosis Slight; Platelet Count 190 k/uL (150-450); RBC 4.33 m/uL (3.80-5.40); RDW 19.1 % (11.5-15.5); WBC 4.9 k/uL (3.8-10.6)
[2023-06-24] MEDS: BUMETANIDE 1 MG TAB PO SCH (08:49)
[2023-06-24] MEDS: POTASSIUM CHLORIDE ER 20 MEQ TAB.ER PO SCH (08:49)
[2023-06-24] MEDS: ISOSORBIDE MONONITRATE ER 30 MG TAB.ER.24H PO SCH (08:49)
[2023-06-24] MEDS: AMIODARONE 200 MG TAB PO SCH (08:49)
[2023-06-24] MEDS: LOSARTAN 25 MG TAB PO SCH (08:49)
[2023-06-24] MEDS: APIXABAN 2.5 MG TABLET PO SCH (08:49)
[2023-06-24] MEDS: FOLIC ACID 1 MG TAB PO SCH (08:49)
[2023-06-24] MEDS: PANTOPRAZOLE 40 MG/10 ML VIAL IVP SCH (08:49)
[2023-06-24] MEDS: MAGNESIUM OXIDE 400 MG TAB PO SCH (08:50)
[2023-06-24] MEDS: METOPROLOL SUCCINATE (ER) 100 MG TAB.ER.24H PO SCH (08:52)
[2023-06-24] MEDS ORDERED: ACETAMINOPHEN TAB 325 MG TAB PO PRN (08:56)
[2023-06-24 09:13] LABS: ALT 12 U/L (4-34); AST 21 U/L (14-36); African American GFR (CKD) 17 (>60 ml/min/1.73 sqM); Albumin 3.3 g/dL (3.5-5.0); Alkaline Phosphatase 56 U/L (38-126); Blood Urea Nitrogen 89 mg/dL (7-17); Calcium 9.3 mg/dL (8.4-10.2); Chloride 95 mmol/L (98-107); Glucose 79 mg/dL (74-99); Magnesium 2.3 mg/dL (1.6-2.3); Non-African American GFR(CKD) 15 (>60 ml/min/1.73 sqM); Potassium 4.4 mmol/L (3.5-5.1); Sodium 139 mmol/L (137-145); Total Bilirubin 0.7 mg/dL (0.2-1.3); Total Protein 7.6 g/dL (6.3-8.2)
[2023-06-24 09:20] LABS: Anion Gap 9 mmol/L; Carbon Dioxide 35 mmol/L (22-30)
--- NOTE | 2023-06-24 11:24 | P.PN ---
Subjective Patient is seen for follow-up of acute kidney injury on top of chronic kidney disease. 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 Previous workup about 2 years ago was negative. Repeat serologies shows positive ANAs otherwise all other serologies are negative. Status post diuresis for severe fluid overload. Currently maintained on oral Bumex Renal function is stable and slowly improved over the last couple of days. No significant complaints today. Objective - Vital Signs Vital signs: Vital Signs Temp 98.1 F 06/24/23 08:00 Pulse 67 06/24/23 08:00 Resp 17 06/24/23 08:00 BP 184/104 06/24/23 08:00 Pulse Ox 100 06/24/23 08:00 FiO2 35 06/23/23 03:29 Intake & Output 06/23/23 06/24/23 06/24/23 18:59 06:59 18:59 Intake Total 236 Output Total 1900 1350 Balance -1664 -1350 Weight 169.462 kg Intake: Oral 236 Output: Urine 1900 1350 Other: Voiding Method External Catheter External Catheter External Catheter # Voids 1 # Bowel Movements 1 - Exam Patient is awake, alert oriented 3 No acute distress Morbidly obese Examination of the heart S1 and S2 Examination of the lungs bilateral breath sounds are heard Abdomen is morbidly obese Examination lower extremity shows edema 1+ bilaterally 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 - Labs CBC & Chem 7: 06/24/23 08:09 06/24/23 08:09 Labs: Abnormal Lab Results - Last 24 Hours (Table) 06/23/23 06/23/23 06/24/23 Range/Units 15:09 20:19 08:09 Hgb 9.8 L (11.4-16.0) gm/dL MCH 22.6 L (25.0-35.0) pg MCHC 27.7 L (31.0-37.0) g/dL RDW 19.1 H (11.5-15.5) % Chloride 93 L (98-107) mmol/L Carbon Dioxide 39 H (22-30) mmol/L BUN 88 H (7-17) mg/dL Creatinine 3.87 H (0.52-1.04) mg/dL Glucose 105 H (74-99) mg/dL POC Glucose (mg/dL) 112 H (70-110) mg/dL Albumin (3.5-5.0) g/dL 06/24/23 Range/Units 08:09 Hgb (11.4-16.0) gm/dL MCH (25.0-35.0) pg MCHC (31.0-37.0) g/dL RDW (11.5-15.5) % Chloride 95 L (98-107) mmol/L Carbon Dioxide 35 H (22-30) mmol/L BUN 89 H (7-17) mg/dL Creatinine 3.44 H (0.52-1.04) mg/dL Glucose (74-99) mg/dL POC Glucose (mg/dL) (70-110) mg/dL Albumin 3.3 L (3.5-5.0) g/dL Assessment and Plan Assessment: 1. Acute kidney injury cardiorenal and ATN from hypotension. Continue to diurese aggressively given the significant CO2 narcosis. No obstruction on CAT scan done in November 2022. Nonoliguric. 2. Chronic kidney disease NKF stage IIIB with baseline creatinine around 2 mg/dL. 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 Possible FSGS. Previous workup was negative in 2020. No history of diabetes. Urine protein creatinine ratio 1.0 on 01/24/2022. Now UPC 2.4. Repeat serologies negative except for positive ANAs 3. Volume overload, improved 4. Acute on chronic diastolic CHF. 5. Morbid obesity 6. Encephalopathy secondary to CO2 narcosis, resolved 7. Acute hypercapnic respiratory failure , improved Plan: Continue with oral Bumex Salt and fluid restriction Follow-up in the office post discharge Kidney biopsy to be done as outpatient
[2023-06-24 11:27] LABS: Glucose,Whole Blood 102 mg/dL (70-110)
--- NOTE | 2023-06-24 13:12 | P.PN ---
Subjective Progress Note Date: 06/24/23 Principal diagnosis: Shortness of breath. Patient was reevaluated today on 06/18/2023, remains in the ICU, she is much better today clinically compared to yesterday. She had significant amount of urine output with the Bumex drip overnight, I was able to transition the patient from BiPAP to nasal cannula, and she seems to be doing well with nasal cannula. In the meantime I'm keeping the patient on Bumex infusion at 0.5 mg per hour keeping her IV fluid at KVO. And we will continue to monitor electrolytes and renal profile. WBC count is 5.9 hemoglobin is 10 electrolytes are normal BUN is up to 81 creatinine is 4.35. Being followed by nephrology. Chest x-ray was reviewed and shows improvement in her pulmonary edema. Patient was reevaluated today on 06/19/2023, remains in the ICU, she is down to 4 L nasal cannula and utilizes BiPAP at night 16/6/35%. Remains on Bumex at 0.5 mg per hour renal functioning is better today down to 4.28 compared to creatinine 4.35 yesterday. Patient tells me that she is breathing easier, feeling much better, chest x-ray continues to show evidence of interstitial edema. For some reason patient is not being followed by cardiology at this point, although her overall presentation is a presentation of acute on chronic diastolic congestive heart failure, nonetheless she is improving with diuresis, she was on the verge of being intubated upon her initial presentation, but now she is improving, and no need for intubation as a matter of fact I would continue to monitor the patient for one more day in the ICU and plan to transfer the patient out of the ICU in the next 24 hours. Patient is not requiring any pressors is only requiring Bumex drip. In the last 5 days, the patient has been at least -7 L of fluids, and she continues to diurese with Bumex. WBC count is 6.5 hemoglobin is 10.7 a left lites are normal BUN is 83 creatinine 4.28 and bicarb is 31. Medications were all reviewed remains on amiodarone, eliquis, isosorbide, metoprolol 100 mg by mouth daily, off norepinephrine, on pantoprazole. Was reevaluated today on 06/20/2023, patient continues to feel better continues to diurese with Bumex infusion, her chronic kidney disease seems to be relatively stable, patient is none on record. Remains on 4 L nasal cannula, she had almost over 2.6 L of output last night in the last 24 hours. Patient will be transitioned to oral Bumex at 3 mg twice a day and I will add Zaroxolyn 2.5 mg daily. I plan to transfer the patient out of the ICU to a medical cardiac floor. Patient remains on low salt diet and 1500 fluid restriction, significant improvement noted since admission. WBC count is 6.2 hemoglobin 9.7 basic m etabolic profile is normal bicarb is 38 BUN is 81 creatinine 4.30 Reevaluated today on 06/21/2023, patient continues to do fairly well, she is now on the medical floor, she is on oral Bumex and on metolazone. Continues to be in negative fluid balance. Creatinine is 4.08 today. Improved compared to creatinine over the last 3 days, no chest x-ray was done, but clinically the patient is breathing much better and much easier. She is on 4 L nasal cannula with O2 saturations are 98% Reevaluated today on 06/22/2023, patient continues to do well, she is now on the medical floor, remains on diuretics including Bumex and metolazone, remains in negative fluid balance, renal functioning continues to improve steadily. Patient is now on 4 L nasal cannula and her O2 saturation is 98-100%. Basic met abolic profile is normal her creatinine is down to 3.32. Reevaluated today on 06/23/2023, patient is doing great, asymptomatic, looking at her fluid balance, patient is negative almost 15 L since her admission. Her renal functioning is holding, patient remains nonoliguric. She is on oral Bumex. At 3 mg by mouth twice a day, off metolazone. Again I will recommend discontinuation of central line, and I will clear the patient for discharge home Progress note dated 06/24/2023. The patient is seen again today in room 363. I saw her actually 3 weeks ago when she was hospitalized at that time. She seen today in room 363. She is on 2 L of oxygen. She's not receiving any IV fluids. She is feeling much improved. White count 4.9, hemoglobin 9.8, hematocrit 35.3, and platelet count 190,000. Sodium 139, potassium 4.4, chlorides 95, CO2 35, BUN 89, and creatinine 3.44. Objective - Vital Signs Vital signs: Vital Signs Temp 97.9 F 06/24/23 11:32 Pulse 64 06/24/23 11:32 Resp 17 06/24/23 11:32 BP 147/87 06/24/23 11:32 Pulse Ox 97 06/24/23 11:32 FiO2 35 06/23/23 03:29 Intake & Output 06/23/23 06/24/23 06/24/23 18:59 06:59 18:59 Intake Total 236 Output Total 1900 1350 Balance -1664 -1350 Weight 169.462 kg Intake: Oral 236 Output: Urine 1900 1350 Other: Voiding Method External Catheter External Catheter External Catheter # Voids 1 # Bowel Movements 1 - Exam No acute distress, oriented 3. Currently on 2 L of oxygen. No respiratory difficulty. HEENT examination is grossly unremarkable. Neck supple. Full range of motion. No adenopathy thyromegaly or neck vein dis tention. Cardiovascular examination reveals an irregular rhythm and rate. S1-S2 normal. No S3 or S4. No discernible murmur noted. Heart rate 80 bpm. Lungs reveal scattered mild crackles. No wheezes. No rhonchi. Breath sounds are equal bilaterally. Saturations are in the mid 90s. Abdomen obese, with bowel sounds. No masses or tenderness. Extremities are intact. No cyanosis clubbing or edema. Skin is without rash or lesion. Neurologic examination is brief but nonfocal. - Labs CBC & Chem 7: 06/24/23 08:09 06/24/23 08:09 Labs: Abnormal Lab Results - Last 24 Hours (Table) 06/23/23 06/23/23 06/24/23 Range/Units 15:09 20:19 08:09 Hgb 9.8 L (11.4-16.0) gm/dL MCH 22.6 L (25.0-35.0) pg MCHC 27.7 L (31.0-37.0) g/dL RDW 19.1 H (11.5-15.5) % Chloride 93 L (98-107) mmol/L Carbon Dioxide 39 H (22-30) mmol/L BUN 88 H (7-17) mg/dL Creatinine 3.87 H (0.52-1.04) mg/dL Glucose 105 H (74-99) mg/dL POC Glucose (mg/dL) 112 H (70-110) mg/dL Albumin (3.5-5.0) g/dL 06/24/23 Range/Units 08:09 Hgb (11.4-16.0) gm/dL MCH (25.0-35.0) pg MCHC (31.0-37.0) g/dL RDW (11.5-15.5) % Chloride 95 L (98-107) mmol/L Carbon Dioxide 35 H (22-30) mmol/L BUN 89 H (7-17) mg/dL Creatinine 3.44 H (0.52-1.04) mg/dL Glucose (74-99) mg/dL POC Glucose (mg/dL) (70-110) mg/dL Albumin 3.3 L (3.5-5.0) g/dL Assessment and Plan Assessment: Acute on chronic hypoxemic and hypercapnic respiratory failure, secondary to acute on chronic diastolic CHF/pulmonary edema. Morbid obesity, with a BMI of 58.5 kg/m. Acute metabolic encephalopathy, secondary to hypoxia and hypercapnia, improved. Benign essential hypertension. Acute on chronic kidney disease. Obstructive sleep apnea syndrome, noncompliant with CPAP. History of respiratory failure requiring mechanical ventilation. Stage IV chronic kidney disease. Anemia of chronic disease. Chronic left upper extremity lymphedema. History of DVT. Chronic atrial fibrillation. Plan: Plan dated 06/24/2023. The patient was seen today in room 363. Clinically, she's doing well. She remains on oxygen at 2 L. She's not receiving any IV fluids. Overall, she is much improved. Labs, x-rays, and medications are reviewed. She was cleared for possible discharge by our group yesterday. The patient continues on Bumex, 3 mg, twice a day. Prognosis is guarded. We will continue to follow the patient, and make recommendations along the way. Time with Patient: Less than 30
[2023-06-24 15:40] VITALS: TEMP 98.5
[2023-06-24 16:41] LABS: Glucose,Whole Blood 94 mg/dL (70-110)
[2023-06-24 17:36] VITALS: PULSE 74; RESP 18
[2023-06-24 17:50] VITALS: BP 168/86
--- NOTE | 2023-06-25 23:43 | DS ---
DISCHARGE SUMMARY CHIEF COMPLAINT: Difficulty breathing. HISTORY OF PRESENT ILLNESS AND PHYSICAL EXAMINATION: Details of this lady's history and physical can be found in the initial workup. COURSE IN THE HOSPITAL: After admission, she was placed on bedrest, started on intravenous fluids and diuresis in ICU. Her breathing slowly improved. As her congestive heart failure came under control, her renal function deteriorated, and her GFR dropped down into the teens. However, she was able to breathe well, and given her poor prognosis and the fact that she was doing quite well, I felt she could be discharged home on the . She will return to living with her sister and will be followed with home nursing. FINAL DIAGNOSES: 1. Acute congestive heart failure. 2. Chronic congestive heart failure. 3. Cardiomyopathy. 4. Sleep apnea. 5. Pickwickian syndrome. 6. Stage IV chronic kidney disease. OPERATIONS: None. CONSULTATIONS: Pulmonology and Nephrology. She is improved. MMODL / IJN: [id number] /
== END 2023-06-24 18:25 | disposition home health service (06) | DRG 194 ==
LOC: EC 10:25 → 6NMEDSUR 17:11 → 2SICU 06-16 02:50 → OBSVTOIN 06-17 09:34 → 3SCARD 06-20 16:56
PROVIDERS: ADMIT Family Medicine; ATTEND Family Medicine
PROC: 02HV33Z Insertion of Infusion Device into Superior Vena Cava, Percutaneous Approach (ICD-10-PCS; principal; 2023-06-16)
PROC: 3E043XZ Introduction of Vasopressor into Central Vein, Percutaneous Approach (ICD-10-PCS; 2023-06-17)
PROC: 5A09357 Assistance with Respiratory Ventilation, Less than 24 Consecutive Hours, Continuous Positive Airway Pressure (ICD-10-PCS; 2023-06-20)
DX: I13.2 Hypertensive heart and chronic kidney disease with heart failure and with stage 5 chronic kidney disease, or end stage renal disease (principal); I25.10 Atherosclerotic heart disease of native coronary artery without angina pectoris; G93.41 Metabolic encephalopathy; D63.1 Anemia in chronic kidney disease; E66.2 Morbid (severe) obesity with alveolar hypoventilation; R32 Unspecified urinary incontinence; R15.9 Full incontinence of feces; K59.00 Constipation, unspecified; E87.6 Hypokalemia; T50.2X5A Adverse effect of carbonic-anhydrase inhibitors, benzothiadiazides and other diuretics, initial encounter; F41.9 Anxiety disorder, unspecified; I42.9 Cardiomyopathy, unspecified; I48.20 Chronic atrial fibrillation, unspecified; I50.43 Acute on chronic combined systolic (congestive) and diastolic (congestive) heart failure; J96.21 Acute and chronic respiratory failure with hypoxia; J96.22 Acute and chronic respiratory failure with hypercapnia; K44.9 Diaphragmatic hernia without obstruction or gangrene; I95.2 Hypotension due to drugs; T40.2X5A Adverse effect of other opioids, initial encounter; Z68.45 Body mass index [BMI] 70 or greater, adult; K57.30 Diverticulosis of large intestine without perforation or abscess without bleeding; N18.5 Chronic kidney disease, stage 5; Z99.81 Dependence on supplemental oxygen; N17.0 Acute kidney failure with tubular necrosis; Z79.01 Long term (current) use of anticoagulants; Z91.81 History of falling; Z79.899 Other long term (current) drug therapy; Z86.718 Personal history of other venous thrombosis and embolism; Y92.231 Patient bathroom in hospital as the place of occurrence of the external cause; Z82.49 Family history of ischemic heart disease and other diseases of the circulatory system; R77.8 Other specified abnormalities of plasma proteins; Z91.199 Patient's noncompliance with other medical treatment and regimen due to unspecified reason; Z20.822 Contact with and (suspected) exposure to COVID-19; Z28.21 Immunization not carried out because of patient refusal; Z74.01 Bed confinement status; Z87.440 Personal history of urinary (tract) infections
CPT/HCPCS: 36415; 36600; 71045; 71046; 76770; 78580; 80048; 80053; 81001; 82570; 82803; 82805; 83516; 83605; 83735; 83880; 84156; 84484; 85025; 85027; 85379; 85610; 85730; 86038; 86039; 86160; 86225; 86255; 86334; 86335; 86706; 86803; 87340; 87636; 93005; 94660; 94760; 96374; 96375; 96376; 99285

== ENCOUNTER 2023-10-20 18:08 | Inpatient (IN) | payer OTHER ==
[2023-10-20] MEDS ORDERED: IPRATROPIUM-ALBUTEROL 3 ML NEB INHALATION STA (18:39)
--- NOTE | 2023-10-20 18:54 | ED ---
SOB HPI - General Chief Complaint: Shortness of Breath Stated Complaint: Swelling in legs Time Seen by Provider: 10/20/23 18:24 Source: EMS, RN notes reviewed, old records reviewed Mode of arrival: EMS Limitations: no limitations - History of Present Illness Initial Comments: This is a 48-year-old female to the emergency department for evaluation patient since the ER today for evaluation regards to severe shortness of breath lower extremity edema and swelling severe debility, patient is unable provide history secondary to significant clinical state with significant shortness of breath MD Complaint: shortness of breath, cough -: hour(s) Severity: mild Severity scale (1-10): 3 Quality: dull, aching Consistency: constant Improves With: nothing Known History Of: COPD, asthma, congestive heart failure Context: recent URI, recent illness Associated Symptoms: cough Treatments Prior to Arrival: none - Related Data Home Medications Medication Instructions Recorded Confirmed Omeprazole 20 mg PO DAILY 11/05/17 10/20/23 Magnesium Oxide [Mag-Ox] 400 mg PO DAILY 12/19/22 10/20/23 acetaZOLAMIDE [Diamox] 250 mg PO DAILY 05/09/23 10/20/23 metOLazone [Zaroxolyn] 2.5 mg PO DAILY 05/09/23 10/20/23 Metoprolol Succinate (ER) [Toprol 100 mg PO DAILY 06/14/23 10/20/23 XL] Baclofen 10 mg PO DAILY 10/20/23 10/20/23 Dulaglutide [Trulicity] 0.75 mg SQ Q7D 10/20/23 10/20/23 Furosemide [Lasix] 80 mg PO BID 10/20/23 10/20/23 hydrALAZINE HCL [Apresoline] 50 mg PO TID 10/20/23 10/20/23 Previous Rx's Medication Instructions Recorded Folic Acid 1 mg PO DAILY #30 tab 12/28/22 Amiodarone [Cordarone] 200 mg PO DAILY #30 tab 05/24/23 Apixaban [Eliquis] 5 mg PO BID #60 tab 05/24/23 Isosorbide Mononitrate ER [Imdur] 30 mg PO DAILY #30 tab 05/24/23 Losartan [Cozaar] 25 mg PO DAILY 30 Days #30 tab 06/24/23 Potassium Chloride ER [K-Dur 20] 20 meq PO DAILY 30 Days #30 tab 06/24/23 Allergies Allergy/AdvReac Type Severity Reaction Status Date / Time No Known Allergies Allergy Verified 10/20/23 21:11 Review of Systems ROS Statement: Those systems with pertinent positive or pertinent negative responses have been documented in the HPI. ROS Other: All systems not noted in ROS Statement are negative. Past Medical History Past Medical History: Coronary Artery Disease (CAD), Chest Pain / Angina, Heart Failure, Deep Vein Thrombosis (DVT), Hypertension, Osteoarthritis (OA), Renal Disease, Sleep Apnea/CPAP/BIPAP, Supraventricular Tachycardia (SVT) Additional Past Medical History / Comment(s): Pt recently admitted to [facility] on 07/03/22-07/15/22 with acute pulmonary edema. Other hx: Chronic CHF, home oxygen at 3L/NC prn, NIR/no device, previous ventilator dependent respiratory failure, sinus pauses, CKD stage IV, anemia, lymphedema, arthritis bilateral knees, hiatal hernia, diverticular disease, UTIs, constipation, urine and bowel incontinence. History of Any Multi-Drug Resistant Organisms: VRE Date of last positivie culture/infection: 05/03/20 MDRO Source:: VRE URINE Past Surgical History: Section, Hernia Repair Additional Past Surgical History / Comment(s): abdominal hernia repair with mesh, cysts removed from stomach, EGD, colonoscopy Past Anesthesia/Blood Transfusion Reactions: No Reported Reaction Additional Past Anesthesia/Blood Transfusion Reaction / Comment(s): Pt has received blood in the past without reaction. Past Psychological History: Anxiety Smoking Status: Never smoker Past Alcohol Use History: None Reported Past Drug Use History: None Reported - Past Family History Father Family Medical History: Congestive Heart Failure (CHF) Additional Family Medical History / Comment(s): Father from CHF. Mother Family Medical History: Cancer, Hypertension, Sleep Apnea/CPAP/BIPAP Additional Family Medical History / Comment(s): Mother has had cancer removed from ear/head. General Exam Limitations: altered mental status, physical limitation General appearance: anxious, in distress, obese Head exam: Present: atraumatic, normocephalic, normal inspection Eye exam: Present: normal appearance, PERRL, EOMI. Absent: scleral icterus, conjunctival injection, periorbital swelling ENT exam: Present: normal exam, mucous membranes moist Neck exam: Present: normal inspection. Absent: tenderness, meningismus, lym phadenopathy Respiratory exam: Present: respiratory distress, wheezes, accessory muscle use, decreased breath sounds, prolonged expiratory. Absent: rales, rhonchi, stridor Cardiovascular Exam: Present: regular rate, normal rhythm, normal heart sounds. Absent: systolic murmur, diastolic murmur, rubs, gallop, clicks GI/Abdominal exam: Present: soft, normal bowel sounds. Absent: distended, tenderness, guarding, rebound, rigid Extremities exam: Present: normal inspection, full ROM, normal capillary refill. Absent: tenderness, pedal edema, joint swelling, calf tenderness Back exam: Present: normal inspection Neurological exam: Present: alert, oriented X3, CN II-XII intact Psychiatric exam: Present: normal affect, normal mood Skin exam: Present: warm, dry, intact, normal color. Absent: rash Course Vital Signs 10/20/23 10/20/23 10/20/23 18:15 18:20 19:48 Temperature 97.2 F L Pulse Rate 67 68 Respiratory 26 H 22 Rate Blood Pressure 148/102 O2 Sat by Pulse 90 L Oximetry 10/20/23 10/20/23 10/20/23 19:56 20:39 21:00 Temperature Pulse Rate 70 72 65 Respiratory 20 20 Rate Blood Pressure 128/39 143/106 O2 Sat by Pulse 98 100 Oximetry 10/20/23 10/20/23 21:30 22:00 Temperature Pulse Rate 61 68 Respiratory 20 20 Rate Blood Pressure 122/81 130/68 O2 Sat by Pulse 99 94 L Oximetry - Reevaluation(s) Reevaluation #1: 10/20/23 19:26 Medical records is reviewed Reevaluation #2: Medical records reviewed Reevaluation #3: Symptoms are improved Reevaluation #4: 10/20/23 19:26 Was pt. sent in by a medical professional or institution (, PA, GROUP RESERVATIONS COORDINATOR, urgent care, hospital, or halfway...) When possible be specific @ -no Did you speak to anyone other than the patient for history (EMS, parent, family, police, friend...)? What history was obtained from this source @ -no Did you review nursing and triage notes (agree or disagree)? Why? @ -agree Are old charts reviewed (outside hosp., previous admission, EMS record, old EKG, old radiological studies, urgent care reports/EKG's, halfway records)? Report findings @ -yes Differential Diagnosis (chest pain, altered mental status, abdominal pain women, abdominal pain men, vaginal bleeding, weakness, fever, dyspnea, syncope, headache, dizziness, GI bleed, back pain, seizure, CVA, palpatations, mental health, musculoskeletal)? @ -prior EKG interpreted by me (3pts min.). @ -yes X-rays interpreted by me (1pt min.). @ -yes positive for significant CHF CT interpreted by me (1pt min.). @ -no U/S interpreted by me (1pt. min.). @ -no What testing was considered but not performed or refused? (CT, X-rays, U/S, labs)? Why? @ -none What meds were considered but not given or refused? Why? @ -none Did you discuss the management of the patient with other professionals ( professionals i.e. , PA, GROUP RESERVATIONS COORDINATOR, lab, RT, psych nurse, clinical social work aide, cotton chopper, teacher, ethics officer, manager case management)? Give summary @ -no Was smoking cessation discussed for >3mins.? @ -no Were there social determinants of health that impacted care today? How? (Homelessness, low income, unemployed, alcoholism, drug addiction, transportation, low edu. Level, literacy, decrease access to med. care, fpc, rehab)? @ -none Was there de-escalation of care discussed even if they declined (Discuss DNR or withdrawal of care, Hospice)? DNR status @ -no What co-morbidities impacted this encounter? (DM, HTN, Smoking, COPD, CAD, Cancer, CVA, ARF, Chemo, Hep., AIDS, mental health diagnosis, sleep apnea, morbid obesity)? @ -none Was patient admitted / discharged? Hospital course, mention meds given and route, prescriptions, significant lab abnormalities, going to OR and other pertinent info. @ - 48 female to the ER for evaluation of severe shortness of breath and dyspnea. Patient will be admitted with impending respiratory failure multifactorial\ Admitted Was critical care preformed (if so, how long)? @ -yes31 Undiagnosed new problem with uncertain prognosis? @ -no Drug Therapy requiring intensive monitoring for toxicity (Heparin, Nitro, Insulin, Cardizem)? @ -no Were any procedures done? @ -no Diagnosis/symptom? @ -COPD CHF respiratory distress and failure Acute, or Chronic, or Acute on Chronic? @ -Acute Uncomplicated (without systemic symptoms) or Complicated (systemic symptoms)? @ -Complicated Side effects of treatment? @ -no Exacerbation, Progression, or Severe Exacerbation? @ -exacerbation Poses a threat to life or bodily function? How? (Chest pain, USA, AR, pneumonia, PE, COPD, DKA, ARF, appy, cholecystitis, CVA, Diverticulitis, Homicidal, Suicidal, threat to staff... and all critical care pts) @ -yes significant respiratory distress and failure Reevaluation #5: Differential Dyspnea: Coronary syndrome, arrhythmia, tamponade, asthma, COPD, pulmonary embolism, pneumonia, pneumothorax, pulmonary effusion, anaphylaxis, diabetic ketoacidosis, flailed chest, pulmonary contusion, diaphragmatic rupture, anemia, neuromuscular, this is not meant to be an all-inclusive list. - Consultations Consultation #1: Poke with admitting physicians who agreed to admit this patient Medical Decision Making - Medical Decision Making 48 female to the ER for evaluation of severe shortness of breath and dyspnea. Patient will be admitted with impending respiratory failure multifactorial - Lab Data Result diagrams: 10/27/23 06:45 10/28/23 09:21 Lab Results 10/20/23 10/20/23 10/20/23 Range/Units 19:17 19:17 19:17 WBC 6.1 (3.8-10.6) k/uL RBC 4.64 (3.80-5.40) m/uL Hgb 11.0 L (11.4-16.0) gm/dL Hct 38.8 (34.0-46.0) % MCV 83.8 (80.0-100.0) fL MCH 23.7 L (25.0-35.0) pg MCHC 28.2 L (31.0-37.0) g/dL RDW 18.0 H (11.5-15.5) % Plt Count 240 (150-450) k/uL MPV 10.5 Neutrophils % (Manual) 67 % Lymphocytes % (Manual) 16 % Monocytes % (Manual) 14 % Eosinophils % (Manual) 3 % Myelocytes % 1 % Neutrophils # (Manual) 4.09 (1.3-7.7) k/uL Lymphocytes # (Manual) 0.98 L (1.0-4.8) k/uL Monocytes # (Manual) 0.85 (0-1.0) k/uL Eosinophils # (Manual) 0.18 (0-0.7) k/uL Myelocytes # (Manual) 0.06 H (0) k/uL Nucleated RBCs 2 H (0-0) /100 WBC Manual Slide Review Performed Hypochromasia Marked Poikilocytosis Slight Anisocytosis Slight PT 11.6 (10.0-12.5) sec INR 1.1 (<1.2) APTT 23.9 (22.0-30.0) sec Sodium 143 (137-145) mmol/L Potassium 4.9 (3.5-5.1) mmol/L Chloride 111 H (98-107) mmol/L Carbon Dioxide 21 L (22-30) mmol/L Anion Gap 11 mmol/L BUN 84 H (7-17) mg/dL Creatinine 4.25 H (0.52-1.04) mg/dL Est GFR (CKD-EPI)AfAm 13 (>60 ml/min/1.73 sqM) Est GFR (CKD-EPI)NonAf 12 (>60 ml/min/1.73 sqM) Glucose 91 (74-99) mg/dL Plasma Lactic Acid Antony (0.7-2.0) mmol/L Calcium 8.9 (8.4-10.2) mg/dL Magnesium 3.1 H (1.6-2.3) mg/dL Total Bilirubin 0.6 (0.2-1.3) mg/dL AST 19 (14-36) U/L ALT 11 (4-34) U/L Alkaline Phosphatase 63 (38-126) U/L Troponin I (0.000-0.034) ng/mL NT-Pro-B Natriuret Pep 77077 pg/mL Total Protein 8.2 (6.3-8.2) g/dL Albumin 4.1 (3.5-5.0) g/dL 10/20/23 10/20/23 Range/Units 19:17 19:17 WBC (3.8-10.6) k/uL RBC (3.80-5.40) m/uL Hgb (11.4-16.0) gm/dL Hct (34.0-46.0) % MCV (80.0-100.0) fL MCH (25.0-35.0) pg MCHC (31.0-37.0) g/dL RDW (11.5-15.5) % Plt Count (150-450) k/uL MPV Neutrophils % (Manual) % Lymphocytes % (Manual) % Monocytes % (Manual) % Eosinophils % (Manual) % Myelocytes % % Neutrophils # (Manual) (1.3-7.7) k/uL Lymphocytes # (Manual) (1.0-4.8) k/uL Monocytes # (Manual) (0-1.0) k/uL Eosinophils # (Manual) (0-0.7) k/uL Myelocytes # (Manual) (0) k/uL Nucleated RBCs (0-0) /100 WBC Manual Slide Review Hypochromasia Poikilocytosis Anisocytosis PT (10.0-12.5) sec INR (<1.2) APTT (22.0-30.0) sec Sodium (137-145) mmol/L Potassium (3.5-5.1) mmol/L Chloride (98-107) mmol/L Carbon Dioxide (22-30) mmol/L Anion Gap mmol/L BUN (7-17) mg/dL Creatinine (0.52-1.04) mg/dL Est GFR (CKD-EPI)AfAm (>60 ml/min/1.73 sqM) Est GFR (CKD-EPI)NonAf (>60 ml/min/1.73 sqM) Glucose (74-99) mg/dL Plasma Lactic Acid Antony 0.7 (0.7-2.0) mmol/L Calcium (8.4-10.2) mg/dL Magnesium (1.6-2.3) mg/dL Total Bilirubin (0.2-1.3) mg/dL AST (14-36) U/L ALT (4-34) U/L Alkaline Phosphatase (38-126) U/L Troponin I 0.052 H* (0.000-0.034) ng/mL NT-Pro-B Natriuret Pep pg/mL Total Protein (6.3-8.2) g/dL Albumin (3.5-5.0) g/dL - EKG Data -: EKG Interpreted by Me (EKG is sinus 60 ME 234 QRS 94 QTC 443) - Radiology Data Radiology results: report reviewed (Chest x-ray s positive for significant CHF), image reviewed Critical Care Time Critical Care Time: Yes Total Critical Care Time: 31 Disposition Clinical Impression: CHF exacerbation, Morbid obesity, Chest pain, CAP (community acquired pneumonia), Elevated troponin, Pulmonary edema, Hypoxemia, Acute respiratory distress, Delirium due to general medical condition, Respiratory failure Disposition: ADMITTED IP TO THIS [facility] Condition: Serious Is patient prescribed a controlled substance at d/c from ED?: No Time of Disposition: 22:00
[2023-10-20 19:45] LABS: Anisocytosis Slight; HCT 38.8 % (34.0-46.0); Hypochromasia Marked; MCH 23.7 pg (25.0-35.0); MCHC 28.2 g/dL (31.0-37.0); MCV 83.8 fL (80.0-100.0); Mean Platelet Volume 10.5; Platelet Count 240 k/uL (150-450); Poikilocytosis Slight; RBC 4.64 m/uL (3.80-5.40)
[2023-10-20 20:00] LABS: ALT 11 U/L (4-34); AST 19 U/L (14-36); African American GFR (CKD) 13 (>60 ml/min/1.73 sqM); Albumin 4.1 g/dL (3.5-5.0); Alkaline Phosphatase 63 U/L (38-126); Anion Gap 11 mmol/L; Blood Urea Nitrogen 84 mg/dL (7-17); Calcium 8.9 mg/dL (8.4-10.2); Carbon Dioxide 21 mmol/L (22-30); Chloride 111 mmol/L (98-107); Glucose 91 mg/dL (74-99); Magnesium 3.1 mg/dL (1.6-2.3); Non-African American GFR(CKD) 12 (>60 ml/min/1.73 sqM); Potassium 4.9 mmol/L (3.5-5.1); Sodium 143 mmol/L (137-145); Total Bilirubin 0.6 mg/dL (0.2-1.3); Total Protein 8.2 g/dL (6.3-8.2)
[2023-10-20 20:02] LABS: INR 1.1 (<1.2); Partial Thromboplastin Time 23.9 sec (22.0-30.0); Prothrombin Time 11.6 sec (10.0-12.5)
[2023-10-20 20:09] LABS: NT-Pro-B-Type Natriuretic Pept 10100 pg/mL
[2023-10-20 20:15] LABS: Myelocytes # (M) 0.06 k/uL (0); Myelocytes % 1 %; Neutrophils % (M) 67 %; Nucleated Red Blood Cells 2 /100 WBC (0-0); Total Cells Counted 200
[2023-10-20 20:16] LABS: Eosinophils # (M) 0.18 k/uL (0-0.7); Lymphocytes # (M) 0.98 k/uL (1.0-4.8); Monocytes # (M) 0.85 k/uL (0-1.0); Neutrophils # (M) 4.09 k/uL (1.3-7.7); WBC 6.1 k/uL (3.8-10.6)
[2023-10-20] MEDS ORDERED: NALOXONE 0.4 MG/ML 1 ML VIAL IV PRN (21:53)
[2023-10-20] MEDS ORDERED: ONDANSETRON 4 MG/2 ML VIAL IVP PRN (21:53)
[2023-10-20] MEDS ORDERED: SODIUM CHLORIDE 0.9% 1,000 ML IV SCH (22:00)
[2023-10-20 22:55] LABS: Glucose,Whole Blood 95 mg/dL (70-110)
[2023-10-20 23:58] LABS: ABG Base Excess -5.8 mmol/L; ABG HCO3 23 mmol/L (21-25); ABG Oxygen Saturation 94.3 % (94-97); ABG PCO2 60 mmHg (35-45); ABG PO2 82 mmHg (83-108); ABG TCO2 24 mmol/L (19-24); Allen Test Performed? Yes
[2023-10-21 00:06] LABS: ABG PH 7.18 (7.35-7.45)
--- NOTE | 2023-10-21 00:46 | XR ---
EXAMINATION TYPE: XR chest 2V DATE OF EXAM: 10/20/2023 7:13 PM CLINICAL INDICATION:Female, 48 years old with history of difficulty breathing; [facility] COMPARISON: Chest x-ray 06/17/2023 TECHNIQUE: XR chest 2V. Frontal and lateral views of the chest.. FINDINGS: Examination is limited by the patient's large body habitus. Lateral view is essentially nondiagnostic . Moderate enlargement of the cardiac silhouette suggesting cardiomegaly with PC effusion not excluded. There is central vascular congestion with haziness of the vasculature and fluffy ill-defined opaciti es in the perihilar and lower lung regions bilaterally most likely related to edema over infection. L eft costophrenic angle is obscured, could be related to pleural and/or parenchymal abnormality. No vi sualized pneumothorax. Right costophrenic angle is relatively well-defined. Mild right basilar atelec tasis or infiltrate. No gross evidence of an acute bony or soft tissue abnormality in the chest. IMPRESSION: Cardiomegaly with pulmonary vascular congestion, bilateral pulmonary opacities likely related to miryam a, and possible left pleural effusion. Correlate clinically for moderate CHF.
[2023-10-21 06:52] LABS: Anisocytosis Slight; Basophils % (A) 1 %; Eosinophils # (A) 0.1 k/uL (0-0.7); Eosinophils % (A) 2 %; HCT 40.1 % (34.0-46.0); HGB 11.2 gm/dL (11.4-16.0); Hypochromasia Marked; Lymphocytes # (A) 0.7 k/uL (1.0-4.8); Lymphocytes % (A) 12 %; MCH 24.1 pg (25.0-35.0); MCV 86.2 fL (80.0-100.0); Mean Platelet Volume 8.5; Monocytes # (A) 0.4 k/uL (0-1.0); Monocytes % (A) 7 %; Neutrophils # (A) 4.6 k/uL (1.3-7.7); Neutrophils % (A) 75 %; Platelet Count 187 k/uL (150-450); Poikilocytosis Slight; RBC 4.64 m/uL (3.80-5.40); RDW 17.8 % (11.5-15.5); WBC 6.1 k/uL (3.8-10.6)
[2023-10-21 07:14] LABS: ALT 14 U/L (4-34); AST 32 U/L (14-36); African American GFR (CKD) 13 (>60 ml/min/1.73 sqM); Albumin 3.9 g/dL (3.5-5.0); Alkaline Phosphatase 62 U/L (38-126); Anion Gap 12 mmol/L; Blood Urea Nitrogen 88 mg/dL (7-17); Carbon Dioxide 20 mmol/L (22-30); Chloride 112 mmol/L (98-107); Glucose 78 mg/dL (74-99); Magnesium 3.1 mg/dL (1.6-2.3); Non-African American GFR(CKD) 12 (>60 ml/min/1.73 sqM); Phosphorus 6.6 mg/dL (2.5-4.5); Potassium 4.6 mmol/L (3.5-5.1); Sodium 144 mmol/L (137-145); Total Bilirubin 0.7 mg/dL (0.2-1.3)
[2023-10-21] MEDS: METOPROLOL SUCCINATE (ER) 100 MG TAB.ER.24H PO SCH (08:22)
[2023-10-21] MEDS: ISOSORBIDE MONONITRATE ER 30 MG TAB.ER.24H PO SCH (08:22)
[2023-10-21] MEDS: hydrALAZINE HCL 50 MG TAB PO SCH ×2 (08:22→16:59)
[2023-10-21] MEDS ORDERED: AMIODARONE 200 MG TAB PO SCH (09:00)
[2023-10-21] MEDS ORDERED: PANTOPRAZOLE 40 MG/10 ML VIAL IV SCH (09:00)
--- NOTE | 2023-10-21 11:02 | P.NPCON ---
History of Present Illness - Reason for Consult acute renal failure - History of Present Illness Patient is a 48-year-old female with history of CK D stage 4 with baseline creatinine around 3 mg/dL with episode of acute kidney injury in May with creatinine that peaked at 4.3 mg/dL. Serum creatinine decreased to 3.4 on 06/24/2023. Patient has significant proteinuria and workup during last admissio n showed elevated kappa light chains. THANH was positive and all other serologies were negative. Patient is admitted to the hospital with shortness of breath. She is noted to be in volume overload. Currently maintained on BiPAP. No history of fever chills nausea vomiting No history of cough Serum creatinine at 4.25 mg/dL today. Patient has an external catheter. Blood pressure is not low. Chest x-ray shows bilateral infiltrates suggestive of interstitial edema. Past Medical History Past Medical History: Coronary Artery Disease (CAD), Chest Pain / Angina, Heart Failure, Deep Vein Thrombosis (DVT), Hypertension, Osteoarthritis (OA), Renal Disease, Sleep Apnea/CPAP/BIPAP, Supraventricular Tachycardia (SVT) Additional Past Medical History / Comment(s): Pt recently admitted to [facility] on 07/03/22-07/15/22 with acute pulmonary edema. Other hx: Chronic CHF, home oxygen at 3L/NC prn, NIR/no device, previous ventilator dependent respiratory failure, sinus pauses, CKD stage IV, anemia, lymphedema, arthritis bilateral knees, hiatal hernia, diverticular disease, UTIs, constipation, urine and bowel incontinence. History of Any Multi-Drug Resistant Organisms: VRE Date of last positivie culture/infection: 05/03/20 MDRO Source:: VRE URINE Past Surgical History: Section, Hernia Repair Additional Past Surgical History / Comment(s): abdominal hernia repair with mesh, cysts removed from stomach, EGD, colonoscopy Past Anesthesia/Blood Transfusion Reactions: No Reported Reaction Additional Past Anesthesia/Blood Transfusion Reaction / Comment(s): Pt has received blood in the past without reaction. Past Psychological History: Anxiety Additional Psychological History / Comment(s): Pt states she lives "pretty much" alone at home. She is mostly bedbound, when someone comes over, they assist her to her wheelchair via george lift. Pt states she was to start with [facility] home care. Family provides meals. She keeps her medications near her and manages them on her own. She is incontinent of urine/stool and wears depends. Smoking Status: Never smoker Past Alcohol Use History: None Reported Past Drug Use History: None Reported - Past Family History Father Family Medical History: Congestive Heart Failure (CHF) Additional Family Medical History / Comment(s): Father from CHF. Mother Family Medical History: Cancer, Hypertension, Sleep Apnea/CPAP/BIPAP Additional Family Medical History / Comment(s): Mother has had cancer removed from ear/head. Medications and Allergies Home Medications Medication Instructions Recorded Confirmed Type Omeprazole 20 mg PO DAILY 11/05/17 10/20/23 History Magnesium Oxide [Mag-Ox] 400 mg PO DAILY 12/19/22 10/20/23 History Folic Acid 1 mg PO DAILY #30 tab 12/28/22 10/20/23 Rx acetaZOLAMIDE [Diamox] 250 mg PO DAILY 05/09/23 10/20/23 History metOLazone [Zaroxolyn] 2.5 mg PO DAILY 05/09/23 10/20/23 History Amiodarone [Cordarone] 200 mg PO DAILY #30 tab 05/24/23 10/20/23 Rx Apixaban [Eliquis] 5 mg PO BID #60 tab 05/24/23 10/20/23 Rx Isosorbide Mononitrate ER [Imdur] 30 mg PO DAILY #30 tab 05/24/23 10/20/23 Rx Metoprolol Succinate (ER) [Toprol 100 mg PO DAILY 06/14/23 10/20/23 History XL] Losartan [Cozaar] 25 mg PO DAILY 30 Days #30 tab 06/24/23 10/20/23 Rx Potassium Chloride ER [K-Dur 20] 20 meq PO DAILY 30 Days #30 tab 06/24/23 10/20/23 Rx Baclofen 10 mg PO DAILY 10/20/23 10/20/23 History Dulaglutide [Trulicity] 0.75 mg SQ Q7D 10/20/23 10/20/23 History Furosemide [Lasix] 80 mg PO BID 10/20/23 10/20/23 History hydrALAZINE HCL [Apresoline] 50 mg PO TID 10/20/23 10/20/23 History Allergies Allergy/AdvReac Type Severity Reaction Status Date / Time No Known Allergies Allergy Verified 10/20/23 21:11 Physical Exam Vitals: Vital Signs Temp Pulse Pulse Pulse Resp BP BP 10/21/23 08:20 97.3 F L 59 L 17 155/94 10/21/23 07:39 10/21/23 04:32 10/21/23 04:00 97.5 F L 71 16 136/84 10/21/23 02:00 60 22 10/21/23 00:07 10/21/23 00:00 97.8 F 60 16 142/74 10/20/23 22:52 97.6 F 63 16 139/83 10/20/23 22:30 22 10/20/23 22:00 68 20 130/68 10/20/23 21:30 61 20 122/81 10/20/23 21:00 65 20 143/106 10/20/23 20:39 72 20 128/39 10/20/23 19:56 70 10/20/23 19:48 68 10/20/23 18:20 22 10/20/23 18:15 97.2 F L 67 26 H 148/102 Pulse Ox FiO2 10/21/23 08:20 98 10/21/23 07:39 35 10/21/23 04:32 35 10/21/23 04:00 10/21/23 02:00 10/21/23 00:07 50 10/21/23 00:00 99 10/20/23 22:52 100 10/20/23 22:30 10/20/23 22:00 94 L 10/20/23 21:30 99 10/20/23 21:00 100 10/20/23 20:39 98 10/20/23 19:56 10/20/23 19:48 10/20/23 18:20 10/20/23 18:15 90 L Intake and Output 10/20/23 10/21/23 10/21/23 22:59 06:59 14:59 Other: Voiding Method External Catheter External Catheter # Voids 1 # Bowel Movements 1 Weight 181 kg 161 kg Patient is awake, comfortable. Maintained on BiPAP Lungs show decreased breath sounds at bases CVS S1 and S2 Abdomen is morbidly obese. Extremities show chronic edema. [employer] C[employer]ODIAN exam is grossly intact. Results - Lab Results Most recent lab results ABG pH 7.18 (7.35-7.45) L* 10/20/23 23:50 ABG pCO2 60 mmHg (35-45) H 10/20/23 23:50 ABG pO2 82 mmHg (83-108) L 10/20/23 23:50 ABG HCO3 23 mmol/L (21-25) 10/20/23 23:50 ABG O2 Saturation 94.3 % (94-97) 10/20/23 23:50 Calcium 9.0 mg/dL (8.4-10.2) 10/21/23 06:29 Phosphorus 6.6 mg/dL (2.5-4.5) H 10/21/23 06:29 Magnesium 3.1 mg/dL (1.6-2.3) H 10/21/23 06:29 10/21/23 06:29 10/21/23 06:29 Assessment and Plan Assessment: 1. ANGUS, cardiorenal, nonoliguric. R/o urine retention. U/A in may showed 3+ prtn. UPCR 2.4, W/U showed THANH 1: 80 and elevated kappa and lambda chains but ratio not significantly elevated. USS in May showed no obstruction, Left kidney not seen due to bowel gas pattern and body habitus. 2. CKD progressively worsening. 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 UPCR 2.4, W/U showed THANH 1: 80 and elevated kappa and lambda chains but ratio not significantly elevated. Ideally a kidney bx should be performed. Will obtain hematology evaluation as well. 3. Volume overload. 4. Acute on chronic diastolic CHF, EF 50-55% in April 2023 Plan: Discontinue IVF Start diuretics Consult Hem/Onc for elevated light chains. Repeat labs in am Check bladder scan Thank you for the consultation. We will continue to folloiw the patient with you
--- NOTE | 2023-10-21 11:43 | P.CRDCN ---
History of Present Illness History of present illness: HISTORY OF PRESENT ILLNESS: This is a 48-year-old female with a past medical history significant for obstructive sleep apnea, morbid obesity, congestive heart failure, chronic kidney disease, and paroxysmal atrial fibrillation. Patient used to follow in the office with Dr. Collins but has not been seen since 2016. We have been asked to see the patient in consultation for CHF. Patient examined at the bedside. Patient initially presented to the hospital with a chief complaint of shortness of breath and increased lower extremity swelling. The patient is let hargic at the time of examination. She is currently on BiPAP. She will open her eyes to verbal stimulation. However she is unable to give to provide pertinent HPI. * EKG reveals sinus mechanism with no signs of acute ischemia * Chest xray cardiac megaly in pulmonary vascular congestion, bilateral pulmonary opacities is likely related to edema and possible left pleural effusion. * Laboratory data significant for pH 7.18. CO2 60. BUN 88. Creatinine 4.23. Troponin 0.052. 0.060. 0.059. ProBNP 10,100. * Most recent echocardiogram obtained in April 2023 revealed ejection fraction 50-55% * Cardiac catheterization history: Unknown REVIEW OF SYSTEMS: At the time of my exam: Patient is lethargic and unable to obtain thorough review of systems at this time PHYSICAL EXAM: VITAL SIGNS: Reviewed. GENERAL: Well-developed in no acute distress. HEENT: Head is normocephalic. Pupils are equal, round. Sclerae anicteric. Mucous membranes of the mouth are moist. Neck supple. No JVD or thyromegaly LUNGS: Respirations even and unlabored. Lungs essentially clear to auscultation bilaterally, diminished. Unable to listen posteriorly. HEART: Regular rate and rhythm. S1 and S2 heard. ABDOMEN: Soft. Nondistended. Nontender. EXTREMITIES: Normal range of motion. No clubbing or cyanosis. Peripheral pulses intact. Trace lower extremity edema NEUROLOGIC: Lethargic. Arousable to verbal stimuli. ASSESSMENT: Shortness of breath Acute on chronic heart failure with preserved EF, 50-55% Acute on chronic kidney disease Abnormal troponins, flat, likely secondary to chronic kidney disease, no evidence of acute coronary syndrome Metabolic acidosis Acute on chronic hypoxic and hypercapnic respiratory failure Paroxysmal atrial fibrillation Obstructive sleep apnea Morbid obesity History of DVT PLAN: Hold losartan secondary to worsening kidney function Discontinue amiodarone Resume additional home cardiac medications Patient has been started on IV Lasix per pulmonary Daily weights, accurate I&O, and monitoring of kidney function Further recommendations pending patient's course Nurse practitioner note has been reviewed by physician. Signing provider agrees with the documented findings, assessment, and plan of care. Past Medical History Past Medical History: Coronary Artery Disease (CAD), Chest Pain / Angina, Heart Failure, Deep Vein Thrombosis (DVT), Hypertension, Osteoarthritis (OA), Renal Disease, Sleep Apnea/CPAP/BIPAP, Supraventricular Tachycardia (SVT) Additional Past Medical History / Comment(s): Pt recently admitted to [facility] on 07/03/22-07/15/22 with acute pulmonary edema. Other hx: Chronic CHF, home oxygen at 3L/NC prn, NIR/no device, previous ventilator dependent respiratory failure, sinus pauses, CKD stage IV, anemia, lymphedema, arthritis bilateral knees, hiatal hernia, diverticular disease, UTIs, constipation, urine and bowel incontinence. History of Any Multi-Drug Resistant Organisms: VRE Date of last positivie culture/infection: 05/03/20 MDRO Source:: VRE URINE Past Surgical History: Section, Hernia Repair Additional Past Surgical History / Comment(s): abdominal hernia repair with mesh, cysts removed from stomach, EGD, colonoscopy Past Anesthesia/Blood Transfusion Reactions: No Reported Reaction Additional Past Anesthesia/Blood Transfusion Reaction / Comment(s): Pt has received blood in the past without reaction. Past Psychological History: Anxiety Additional Psychological History / Comment(s): Pt states she lives "pretty much" alone at home. She is mostly bedbound, when someone comes over, they assist her to her wheelchair via george lift. Pt states she was to start with [facility] home care. Family provides meals. She keeps her medications near her and manages them on her own. She is incontinent of urine/stool and wears depends. Smoking Status: Never smoker Past Alcohol Use History: None Reported Past Drug Use History: None Reported - Past Family History Father Family Medical History: Congestive Heart Failure (CHF) Additional Family Medical History / Comment(s): Father from CHF. Mother Family Medical History: Cancer, Hypertension, Sleep Apnea/CPAP/BIPAP Additional Family Medical History / Comment(s): Mother has had cancer removed from ear/head. Medications and Allergies Home Medications Medication Instructions Recorded Confirmed Type Omeprazole 20 mg PO DAILY 11/05/17 10/20/23 History Magnesium Oxide [Mag-Ox] 400 mg PO DAILY 12/19/22 10/20/23 History Folic Acid 1 mg PO DAILY #30 tab 12/28/22 10/20/23 Rx acetaZOLAMIDE [Diamox] 250 mg PO DAILY 05/09/23 10/20/23 History metOLazone [Zaroxolyn] 2.5 mg PO DAILY 05/09/23 10/20/23 History Amiodarone [Cordarone] 200 mg PO DAILY #30 tab 05/24/23 10/20/23 Rx Apixaban [Eliquis] 5 mg PO BID #60 tab 05/24/23 10/20/23 Rx Isosorbide Mononitrate ER [Imdur] 30 mg PO DAILY #30 tab 05/24/23 10/20/23 Rx Metoprolol Succinate (ER) [Toprol 100 mg PO DAILY 06/14/23 10/20/23 History XL] Losartan [Cozaar] 25 mg PO DAILY 30 Days #30 tab 06/24/23 10/20/23 Rx Potassium Chloride ER [K-Dur 20] 20 meq PO DAILY 30 Days #30 tab 06/24/23 10/20/23 Rx Baclofen 10 mg PO DAILY 10/20/23 10/20/23 History Dulaglutide [Trulicity] 0.75 mg SQ Q7D 10/20/23 10/20/23 History Furosemide [Lasix] 80 mg PO BID 10/20/23 10/20/23 History hydrALAZINE HCL [Apresoline] 50 mg PO TID 10/20/23 10/20/23 History Allergies Allergy/AdvReac Type Severity Reaction Status Date / Time No Known Allergies Allergy Verified 10/20/23 21:11 Physical Exam Vitals: Vital Signs Temp Pulse Pulse Pulse Resp BP BP 10/21/23 11:02 10/21/23 08:20 97.3 F L 59 L 17 155/94 10/21/23 08:00 59 L 17 10/21/23 07:39 10/21/23 04:32 10/21/23 04:00 97.5 F L 71 16 136/84 10/21/23 02:00 60 22 10/21/23 00:07 10/21/23 00:00 97.8 F 60 16 142/74 10/20/23 22:52 97.6 F 63 16 139/83 10/20/23 22:30 22 10/20/23 22:00 68 20 130/68 10/20/23 21:30 61 20 122/81 10/20/23 21:00 65 20 143/106 10/20/23 20:39 72 20 128/39 10/20/23 19:56 70 10/20/23 19:48 68 10/20/23 18:20 22 10/20/23 18:15 97.2 F L 67 26 H 148/102 Pulse Ox FiO2 10/21/23 11:02 35 10/21/23 08:20 98 10/21/23 08:00 10/21/23 07:39 35 10/21/23 04:32 35 10/21/23 04:00 10/21/23 02:00 10/21/23 00:07 50 10/21/23 00:00 99 10/20/23 22:52 100 10/20/23 22:30 10/20/23 22:00 94 L 10/20/23 21:30 99 10/20/23 21:00 100 10/20/23 20:39 98 10/20/23 19:56 10/20/23 19:48 10/20/23 18:20 10/20/23 18:15 90 L Intake and Output 10/20/23 10/21/23 10/21/23 22:59 06:59 14:59 Other: Voiding Method External Catheter External Catheter External Catheter # Voids 1 # Bowel Movements 1 Weight 181 kg 161 kg Results 10/21/23 06:29 10/21/23 06:29 Cardiac Enzymes 10/20/23 10/20/23 10/21/23 Range/Units 19:17 19:17 00:03 AST 19 (14-36) U/L Troponin I 0.052 H* 0.060 H* (0.000-0.034) ng/mL 10/21/23 10/21/23 Range/Units 06:29 06:29 AST 32 (14-36) U/L Troponin I 0.059 H* (0.000-0.034) ng/mL Coagulation 01/21/24 Range/Units 19:17 PT 11.6 (10.0-12.5) sec APTT 23.9 (22.0-30.0) sec CBC 10/20/23 10/21/23 Range/Units 19:17 06:29 WBC 6.1 6.1 (3.8-10.6) k/uL RBC 4.64 4.64 (3.80-5.40) m/uL Hgb 11.0 L 11.2 L (11.4-16.0) gm/dL Hct 38.8 40.1 (34.0-46.0) % Plt Count 240 187 (150-450) k/uL Comprehensive Metabolic Panel 10/20/23 10/21/23 Range/Units 19:17 06:29 Sodium 143 144 (137-145) mmol/L Potassium 4.9 4.6 (3.5-5.1) mmol/L Chloride 111 H 112 H (98-107) mmol/L Carbon Dioxide 21 L 20 L (22-30) mmol/L BUN 84 H 88 H (7-17) mg/dL Creatinine 4.25 H 4.23 H (0.52-1.04) mg/dL Glucose 91 78 (74-99) mg/dL Calcium 8.9 9.0 (8.4-10.2) mg/dL AST 19 32 (14-36) U/L ALT 11 14 (4-34) U/L Alkaline Phosphatase 63 62 (38-126) U/L Total Protein 8.2 8.0 (6.3-8.2) g/dL Albumin 4.1 3.9 (3.5-5.0) g/dL Current Medications Generic Name Dose Route Start Last Admin Trade Name Freq PRN Reason Stop Dose Admin Acetazolamide 250 mg 10/22/23 09:00 Acetazolamide 250 Mg Tab PO DAILY [facility] Apixaban 5 mg 10/21/23 21:00 Apixaban 5 Mg Tab PO BID [facility] Protocol Folic Acid 1 mg 10/22/23 09:00 Folic Acid 1 Mg Tab PO DAILY [facility] Hydralazine HCl 50 mg 10/21/23 09:00 10/21/23 08:22 Hydralazine Hcl 50 Mg Tab PO 50 mg TID [facility] Administration Furosemide 100 mg/ Sodium 100 mls @ 10 mls/hr 10/21/23 11:00 Chloride IV .Q10H FARRAH 10 MG/HR Isosorbide Mononitrate 30 mg 10/21/23 09:00 10/21/23 08:22 Isosorbide Mononitrate Er 30 Mg Tab.Er.24h PO 30 mg DAILY [facility] Administration Magnesium Oxide 400 mg 10/22/23 09:00 Magnesium Oxide 400 Mg Tab PO DAILY [facility] Metolazone 2.5 mg 10/22/23 09:00 Metolazone 2.5 Mg Tab PO DAILY [facility] Metoprolol Succinate 100 mg 10/21/23 09:00 10/21/23 08:22 Metoprolol Succinate (Er) 100 Mg Tab.Er.24h PO 100 mg DAILY [facility] Administration Morphine Sulfate 4 mg 10/20/23 21:53 Morphine Sulfate 4 Mg/Ml Syringe IV Q4HR PRN Severe Pain (Scale 7 to 10) Naloxone HCl 0.2 mg 10/20/23 21:53 Naloxone 0.4 Mg/Ml 1 Ml Vial IV Q2M PRN Opioid Reversal Patient's Own ( 0.75 mg 10/21/23 10:30 Dulaglutide [ SQ Trulicity] 0.75 Mg/0 Q7D FARRAH .5 Ml Each) Ondansetron HCl 4 mg 10/20/23 21:53 Ondansetron 4 Mg/2 Ml Vial IVP Q8HR PRN Nausea And Vomiting Pantoprazole Sodium 40 mg 10/22/23 09:00 Pantoprazole 40 Mg Tablet PO DAILY FARRAH Intake and Output 10/20/23 10/21/23 10/21/23 22:59 06:59 14:59 Other: Voiding Method External Catheter External Catheter External Catheter # Voids 1 # Bowel Movements 1 Weight 181 kg 161 kg 10/21/23 06:29 10/21/23 06:29
[2023-10-21] MEDS: PATIENT'S OWN (Dulaglutide [Trulicity] 0.75 MG/0.5 ML Each) SQ SCH (12:15)
[2023-10-21] MEDS: FUROSEMIDE 100 MG in SODIUM CHLORIDE 0.9% 90 ML IV SCH ×2 (13:34→21:55)
[2023-10-21 14:14] LABS: Glucose,Whole Blood 83 mg/dL (70-110)
--- NOTE | 2023-10-21 14:50 | P.CNPUL ---
History of Present Illness Consult date: 10/21/23 Requesting physician: Kevin Stanford Reason for consult: other (Acute hypoxic and hypercapnic respiratory failure) Chief complaint: Shortness of breath History of present illness: This is a 48-year-old -[place] female, known history of congestive heart failure hypertension more than obesity obstructive sleep apnea syndrome, chronic hypoxic respiratory failure, previous ventilator dependent respiratory failure, chronic kidney disease stage IV, left upper extremity lymphedema, anemia, frequent episodes of urinary tract infections, multiple previous admissions with congestive heart failure and hypoxic and hypercapnic respiratory failure. Patient was admitted today with chief complaint of shortness of breath, and increased lower extremity swelling. Upon my evaluation, patient was noted to be on BiPAP, lethargic, opens eyes to verbal stimuli, and her chest x-ray clearly showed evidence of pulmonary edema. ABG on admission showed a pO2 of 82 pCO2 60 pH of 7.18. Her labs clearly showed evidence of worsening renal failure with a BUN of 88 creatinine 4.23, hence I suggested starting the patient on IV Lasix drip, and I also suggested admitting the patient to the ICU since her overall pulmonary status seems to be marginal at best. Her BNP level was over 10,000. And troponin level was elevated at around 0.060. Previous echocardiogram on this patient showed preserved systolic function with ejection fraction of 50-55% labs today showed WBC count 6.1 hemoglobin 11.2. Sodium 144 potassium 4.6 bicarb is 20 BUN is 88 creatinine 4.23 Review of Systems ROS unobtainable: due to mental status (Could not get a review of system, p atient seems to be quite lethargic during my evaluation) Past Medical History Past Medical History: Coronary Artery Disease (CAD), Chest Pain / Angina, Heart Failure, Deep Vein Thrombosis (DVT), Hypertension, Osteoarthritis (OA), Renal Disease, Sleep Apnea/CPAP/BIPAP, Supraventricular Tachycardia (SVT) Additional Past Medical History / Comment(s): Pt recently admitted to [facility] on 07/03/22-07/15/22 with acute pulmonary edema. Other hx: Chronic CHF, home oxygen at 3L/NC prn, NIR/no device, previous ventilator dependent respiratory failure, sinus pauses, CKD stage IV, anemia, lymphedema, arthritis bilateral knees, hiatal hernia, diverticular disease, UTIs, constipation, urine and bowel incontinence. History of Any Multi-Drug Resistant Organisms: VRE Date of last positivie culture/infection: 05/03/20 MDRO Source:: VRE URINE Past Surgical History: Section, Hernia Repair Additional Past Surgical History / Comment(s): abdominal hernia repair with mesh, cysts removed from stomach, EGD, colonoscopy Past Anesthesia/Blood Transfusion Reactions: No Reported Reaction Additional Past Anesthesia/Blood Transfusion Reaction / Comment(s): Pt has received blood in the past without reaction. Past Psychological History: Anxiety Additional Psychological History / Comment(s): Pt states she lives "pretty much" alone at home. She is mostly bedbound, when someone comes over, they assist her to her wheelchair via george lift. Pt states she was to start with [facility] home care. Family provides meals. She keeps her medications near her and manages them on her own. She is incontinent of urine/stool and wears depends. Smoking Status: Never smoker Past Alcohol Use History: None Reported Past Drug Use History: None Reported - Past Family History Father Family Medical History: Congestive Heart Failure (CHF) Additional Family Medical History / Comment(s): Father from CHF. Mother Family Medical History: Cancer, Hypertension, Sleep Apnea/CPAP/BIPAP Additional Family Medical History / Comment(s): Mother has had cancer removed from ear/head. Medications and Allergies Home Medications Medication Instructions Recorded Confirmed Type Omeprazole 20 mg PO DAILY 11/05/17 10/20/23 History Magnesium Oxide [Mag-Ox] 400 mg PO DAILY 12/19/22 10/20/23 History Folic Acid 1 mg PO DAILY #30 tab 12/28/22 10/20/23 Rx acetaZOLAMIDE [Diamox] 250 mg PO DAILY 05/09/23 10/20/23 History metOLazone [Zaroxolyn] 2.5 mg PO DAILY 05/09/23 10/20/23 History Amiodarone [Cordarone] 200 mg PO DAILY #30 tab 05/24/23 10/20/23 Rx Apixaban [Eliquis] 5 mg PO BID #60 tab 05/24/23 10/20/23 Rx Isosorbide Mononitrate ER [Imdur] 30 mg PO DAILY #30 tab 05/24/23 10/20/23 Rx Metoprolol Succinate (ER) [Toprol 100 mg PO DAILY 06/14/23 10/20/23 History XL] Losartan [Cozaar] 25 mg PO DAILY 30 Days #30 tab 06/24/23 10/20/23 Rx Potassium Chloride ER [K-Dur 20] 20 meq PO DAILY 30 Days #30 tab 06/24/23 10/20/23 Rx Baclofen 10 mg PO DAILY 10/20/23 10/20/23 History Dulaglutide [Trulicity] 0.75 mg SQ Q7D 10/20/23 10/20/23 History Furosemide [Lasix] 80 mg PO BID 10/20/23 10/20/23 History hydrALAZINE HCL [Apresoline] 50 mg PO TID 10/20/23 10/20/23 History Allergies Allergy/AdvReac Type Severity Reaction Status Date / Time No Known Allergies Allergy Verified 10/20/23 21:11 Physical Exam Vitals: Vital Signs Temp Pulse Pulse Pulse Resp BP BP 10/21/23 12:15 97.2 F L 66 16 129/74 10/21/23 11:02 10/21/23 08:20 97.3 F L 59 L 17 155/94 10/21/23 08:00 59 L 17 10/21/23 07:39 10/21/23 04:32 10/21/23 04:00 97.5 F L 71 16 136/84 10/21/23 02:00 60 22 10/21/23 00:07 10/21/23 00:00 97.8 F 60 16 142/74 10/20/23 22:52 97.6 F 63 16 139/83 10/20/23 22:30 22 10/20/23 22:00 68 20 130/68 10/20/23 21:30 61 20 122/81 10/20/23 21:00 65 20 143/106 10/20/23 20:39 72 20 128/39 10/20/23 19:56 70 10/20/23 19:48 68 10/20/23 18:20 22 10/20/23 18:15 97.2 F L 67 26 H 148/102 Pulse Ox FiO2 10/21/23 12:15 99 10/21/23 11:02 35 10/21/23 08:20 98 10/21/23 08:00 10/21/23 07:39 35 10/21/23 04:32 35 10/21/23 04:00 10/21/23 02:00 10/21/23 00:07 50 10/21/23 00:00 99 10/20/23 22:52 100 10/20/23 22:30 10/20/23 22:00 94 L 10/20/23 21:30 99 10/20/23 21:00 100 10/20/23 20:39 98 10/20/23 19:56 10/20/23 19:48 10/20/23 18:20 10/20/23 18:15 90 L Intake and Output 10/20/23 10/21/23 10/21/23 22:59 06:59 14:59 Output Total 500 Balance -500 Output: Urine 500 Other: Voiding Method External Catheter External Catheter External Catheter # Voids 1 # Bowel Movements 1 Weight 181 kg 161 kg Physical Exam: Revealed a 48-year-old female, obese, on BiPAP, not in distress, however she is quite lethargic. Head: Atraumatic, normocephalic. HEENT: Short obese neck. [Neck is supple.] [No neck masses.] [No thyromegaly.] [No JVD.] Chest: [Crackles at the bases, rhonchi bilaterally. Cardiac Exam: Distant S1 and S2, no S3 gallop. Abdomen: [Morbidly obese, Soft, nontender, no megaly, no rebound, no guarding, normal bowel sounds.] Extremities: [No clubbing, 1+ bipedal edema, no cyanosis.] Neurological Exam: Patient is quite lethargic, opens eyes, does not follow instructions, on BiPAP. Psychiatric: Could not assess. Results - Laboratory Findings CBC and BMP: 10/21/23 06:29 10/21/23 06:29 ABG ABG pH 7.18 (7.35-7.45) L* 10/20/23 23:50 ABG pCO2 60 mmHg (35-45) H 10/20/23 23:50 ABG pO2 82 mmHg (83-108) L 10/20/23 23:50 ABG O2 Saturation 94.3 % (94-97) 10/20/23 23:50 PT/INR, D-dimer PT 11.6 sec (10.0-12.5) 10/20/23 19:17 INR 1.1 (<1.2) 10/20/23 19:17 Abnormal lab findings: Abnormal Labs 10/20/23 10/20/23 10/20/23 19:17 19:17 19:17 Hgb 11.0 L MCH 23.7 L MCHC 28.2 L RDW 18.0 H Lymphocytes # Lymphocytes # (Manual) 0.98 L Myelocytes # (Manual) 0.06 H Nucleated RBCs 2 H ABG pH ABG pCO2 ABG pO2 Chloride 111 H Carbon Dioxide 21 L BUN 84 H Creatinine 4.25 H Phosphorus Magnesium 3.1 H Troponin I 0.052 H* 10/20/23 10/21/23 10/21/23 23:50 00:03 06:29 Hgb MCH MCHC RDW Lymphocytes # Lymphocytes # (Manual) Myelocytes # (Manual) Nucleated RBCs ABG pH 7.18 L* ABG pCO2 60 H ABG pO2 82 L Chloride Carbon Dioxide BUN Creatinine Phosphorus Magnesium Troponin I 0.060 H* 0.059 H* 10/21/23 10/21/23 06:29 06:29 Hgb 11.2 L MCH 24.1 L MCHC 28.0 L RDW 17.8 H Lymphocytes # 0.7 L Lymphocytes # (Manual) Myelocytes # (Manual) Nucleated RBCs ABG pH ABG pCO2 ABG pO2 Chloride 112 H Carbon Dioxide 20 L BUN 88 H Creatinine 4.23 H Phosphorus 6.6 H Magnesium 3.1 H Troponin I - Diagnostic Findings Chest x-ray: image reviewed (Chest x-ray is consistent with pulmonary edema) Assessment and Plan Assessment: Impression: Acute on chronic hypoxic and hypercapnic respiratory failure Acute on chronic diastolic congestive heart failure Morbid obesity, BMI over 75 Acute on chronic kidney disease Acute metabolic encephalopathy Paroxysmal atrial fibrillation Obesity/hypoventilation syndrome Obstructive sleep apnea syndrome, not on CPAP or BiPAP History of DVT. Acute on chronic kidney disease Benign essential hypertension History of respiratory failure requiring intubation and mechanical ventilation Anemia of chronic disease Chronic left upper extremity lymphedema recommendation: Will transfer the patient to the ICU now. Continue diuretics however start Lasix drip at 10 mg per hour Cardiology and nephrology to see her on consultation Continue BiPAP Continue eliquis Resume home meds GI and DVT prophylaxis Strict I's and does while in the ICU Closely monitor electrolytes and renal profile while in the ICU Consider repeating echocardiogram if not done recently Close monitoring of her sugars and addressed accordingly We will continue to follow. Patient is critically ill Prognosis is guarded Critical care time is over 50 minutes Time with Patient: Greater than 30
--- NOTE | 2023-10-21 15:31 | P.CONS ---
History of Present Illness - Reason for Consult Consult date: 10/21/23 elevated light chains Requesting physician: Diamond Escobedo - Chief Complaint SOB - History of Present Illness Ms. Sorto is a 48-year-old female with PMH of CKD, noted since 2013, followed by Nephrology, we have been asked to see because of elevated light chains. Pt is currently admitted with c/o SOB, BNP >10,000. She has on bipap when seen, being transferred to ICU. Denies any personal or family history of cancer or blood disorders that she knows of. No fevers, nausea, vomiting or diarrhea. She feels weak. Review of Systems 10 point ROS is neg except as stated in HPI Past Medical History Past Medical History: Coronary Artery Disease (CAD), Chest Pain / Angina, Heart Failure, Deep Vein Thrombosis (DVT), Hypertension, Osteoarthritis (OA), Renal Disease, Sleep Apnea/CPAP/BIPAP, Supraventricular Tachycardia (SVT) Additional Past Medical History / Comment(s): Pt recently admitted to [facility] on 07/03/22-07/15/22 with acute pulmonary edema. Other hx: Chronic CHF, home oxygen at 3L/NC prn, NIR/no device, previous ventilator dependent respiratory failure, sinus pauses, CKD stage IV, anemia, lymphedema, arthritis bilateral knees, hiatal hernia, diverticular disease, UTIs, constipation, urine and bowel incontinence. History of Any Multi-Drug Resistant Organisms: VRE Year Discovered:: 05/03/20 MDRO Source:: VRE URINE Past Surgical History: Section, Hernia Repair Additional Past Surgical History / Comment(s): abdominal hernia repair with mesh, cysts removed from stomach, EGD, colonoscopy Past Anesthesia/Blood Transfusion Reactions: No Reported Reaction Additional Past Anesthesia/Blood Transfusion Reaction / Comm: Pt has received blood in the past without reaction. Past Psychological History: Anxiety Additional Psychological History / Comment(s): Pt states she lives "pretty much" alone at home. She is mostly bedbound, when someone comes over, they assist her to her wheelchair via george lift. Pt states she was to start with [facility] home care. Family provides meals. She keeps her medications near her and manages th em on her own. She is incontinent of urine/stool and wears depends. Smoking Status: Never smoker Past Alcohol Use History: None Reported Past Drug Use History: None Reported - Past Family History Father Family Medical History: Congestive Heart Failure (CHF) Additional Family Medical History / Comment(s): Father from CHF. Mother Family Medical History: Cancer, Hypertension, Sleep Apnea/CPAP/BIPAP Additional Family Medical History / Comment(s): Mother has had cancer removed from ear/head. Medications and Allergies Home Medications Medication Instructions Recorded Confirmed Type Omeprazole 20 mg PO DAILY 11/05/17 10/20/23 History Magnesium Oxide [Mag-Ox] 400 mg PO DAILY 12/19/22 10/20/23 History Folic Acid 1 mg PO DAILY #30 tab 12/28/22 10/20/23 Rx acetaZOLAMIDE [Diamox] 250 mg PO DAILY 05/09/23 10/20/23 History metOLazone [Zaroxolyn] 2.5 mg PO DAILY 05/09/23 10/20/23 History Amiodarone [Cordarone] 200 mg PO DAILY #30 tab 05/24/23 10/20/23 Rx Apixaban [Eliquis] 5 mg PO BID #60 tab 05/24/23 10/20/23 Rx Isosorbide Mononitrate ER [Imdur] 30 mg PO DAILY #30 tab 05/24/23 10/20/23 Rx Metoprolol Succinate (ER) [Toprol 100 mg PO DAILY 06/14/23 10/20/23 History XL] Losartan [Cozaar] 25 mg PO DAILY 30 Days #30 tab 06/24/23 10/20/23 Rx Potassium Chloride ER [K-Dur 20] 20 meq PO DAILY 30 Days #30 tab 06/24/23 10/20/23 Rx Baclofen 10 mg PO DAILY 10/20/23 10/20/23 History Dulaglutide [Trulicity] 0.75 mg SQ Q7D 10/20/23 10/20/23 History Furosemide [Lasix] 80 mg PO BID 10/20/23 10/20/23 History hydrALAZINE HCL [Apresoline] 50 mg PO TID 10/20/23 10/20/23 History Allergies Allergy/AdvReac Type Severity Reaction Status Date / Time No Known Allergies Allergy Verified 10/20/23 21:11 Physical Exam Vitals: Vital Signs Temp Pulse Pulse Pulse Resp BP BP 10/21/23 11:02 10/21/23 08:20 97.3 F L 59 L 17 155/94 10/21/23 08:00 59 L 17 10/21/23 07:39 10/21/23 04:32 10/21/23 04:00 97.5 F L 71 16 136/84 10/21/23 02:00 60 22 10/21/23 00:07 10/21/23 00:00 97.8 F 60 16 142/74 10/20/23 22:52 97.6 F 63 16 139/83 10/20/23 22:30 22 10/20/23 22:00 68 20 130/68 10/20/23 21:30 61 20 122/81 10/20/23 21:00 65 20 143/106 10/20/23 20:39 72 20 128/39 10/20/23 19:56 70 10/20/23 19:48 68 10/20/23 18:20 22 10/20/23 18:15 97.2 F L 67 26 H 148/102 Pulse Ox FiO2 10/21/23 11:02 35 10/21/23 08:20 98 10/21/23 08:00 10/21/23 07:39 35 10/21/23 04:32 35 10/21/23 04:00 10/21/23 02:00 10/21/23 00:07 50 10/21/23 00:00 99 10/20/23 22:52 100 10/20/23 22:30 10/20/23 22:00 94 L 10/20/23 21:30 99 10/20/23 21:00 100 10/20/23 20:39 98 10/20/23 19:56 10/20/23 19:48 10/20/23 18:20 10/20/23 18:15 90 L Intake and Output 10/20/23 10/21/23 10/21/23 22:59 06:59 14:59 Other: Voiding Method External Catheter External Catheter External Catheter # Voids 1 # Bowel Movements 1 Weight 181 kg 161 kg - Constitutional General appearance: cooperative, no acute distress, obese - EENT Eyes: anicteric sclerae, EOMI ENT: hearing grossly normal - Neck Neck: no lymphadenopathy - Respiratory Respiratory: bilateral: CTA, diminished - Cardiovascular Rhythm: regular Heart sounds: normal: S1, S2 Abnormal Heart Sounds: no systolic murmur, no diastolic murmur, no rub, no S3 Gallop, no S4 Gallop, no click, no other leg Peripheral Edema: bilateral: 2+ - Gastrointestinal General gastrointestinal: normal bowel sounds, soft - Neurologic Neurologic: CNII-XII intact - Musculoskeletal Musculoskeletal: strength equal bilaterally - Psychiatric Psychiatric: A&O x's 3, appropriate affect, intact judgment & insight Results CBC & Chem 7: 10/21/23 06:29 10/21/23 06:29 Labs: Abnormal Lab Results - Last 24 Hours (Table) 10/20/23 10/20/23 10/20/23 Range/Units 19:17 19:17 19:17 Hgb 11.0 L (11.4-16.0) gm/dL MCH 23.7 L (25.0-35.0) pg MCHC 28.2 L (31.0-37.0) g/dL RDW 18.0 H (11.5-15.5) % Lymphocytes # (1.0-4.8) k/uL Lymphocytes # (Manual) 0.98 L (1.0-4.8) k/uL Myelocytes # (Manual) 0.06 H (0) k/uL Nucleated RBCs 2 H (0-0) /100 WBC ABG pH (7.35-7.45) ABG pCO2 (35-45) mmHg ABG pO2 (83-108) mmHg Chloride 111 H (98-107) mmol/L Carbon Dioxide 21 L (22-30) mmol/L BUN 84 H (7-17) mg/dL Creatinine 4.25 H (0.52-1.04) mg/dL Phosphorus (2.5-4.5) mg/dL Magnesium 3.1 H (1.6-2.3) mg/dL Troponin I 0.052 H* (0.000-0.034) ng/mL 10/20/23 10/21/23 10/21/23 Range/Units 23:50 00:03 06:29 Hgb (11.4-16.0) gm/dL MCH (25.0-35.0) pg MCHC (31.0-37.0) g/dL RDW (11.5-15.5) % Lymphocytes # (1.0-4.8) k/uL Lymphocytes # (Manual) (1.0-4.8) k/uL Myelocytes # (Manual) (0) k/uL Nucleated RBCs (0-0) /100 WBC ABG pH 7.18 L* (7.35-7.45) ABG pCO2 60 H (35-45) mmHg ABG pO2 82 L (83-108) mmHg Chloride (98-107) mmol/L Carbon Dioxide (22-30) mmol/L BUN (7-17) mg/dL Creatinine (0.52-1.04) mg/dL Phosphorus (2.5-4.5) mg/dL Magnesium (1.6-2.3) mg/dL Troponin I 0.060 H* 0.059 H* (0.000-0.034) ng/mL 10/21/23 10/21/23 Range/Units 06:29 06:29 Hgb 11.2 L (11.4-16.0) gm/dL MCH 24.1 L (25.0-35.0) pg MCHC 28.0 L (31.0-37.0) g/dL RDW 17.8 H (11.5-15.5) % Lymphocytes # 0.7 L (1.0-4.8) k/uL Lymphocytes # (Manual) (1.0-4.8) k/uL Myelocytes # (Manual) (0) k/uL Nucleated RBCs (0-0) /100 WBC ABG pH (7.35-7.45) ABG pCO2 (35-45) mmHg ABG pO2 (83-108) mmHg Chloride 112 H (98-107) mmol/L Carbon Dioxide 20 L (22-30) mmol/L BUN 88 H (7-17) mg/dL Creatinine 4.23 H (0.52-1.04) mg/dL Phosphorus 6.6 H (2.5-4.5) mg/dL Magnesium 3.1 H (1.6-2.3) mg/dL Troponin I (0.000-0.034) ng/mL Assessment and Plan (1) Elevated serum immunoglobulin free light chains Current Visit: Yes Status: Acute Priority: Medium Code(s): R76.8 - OTHER SPECIFIED ABNORMAL IMMUNOLOGICAL FINDINGS IN SERUM SNOMED Code(s): 10542862514 Plan: Elevated serum light chains -Previous labs reviewed. New paraproteinemia and light chain work up ordered. Ig levels ordered -Hgb showing mild anemia, calcium levels are normal, CKD noted in this medical record since 2013. -Pt on bipap when seen, being transferred to ICU. Acute illness may alter testing results but, will take that into consideration when evaluating Hx iron deficient anemia -Pt seen inpt, did not f/u outpt -Iron studies ordered Will f/u on results and make further recommendations
[2023-10-21] MEDS ORDERED: FUROSEMIDE 80 MG TAB PO SCH (16:00)
[2023-10-21] MEDS: APIXABAN 5 MG TAB PO SCH (21:55)
[2023-10-21 23:56] LABS: % Iron Saturation 5.07 (12.00-45.00); Ferritin 10.5 ng/mL (10.0-291.0)
[2023-10-22] MEDS: FUROSEMIDE 100 MG in SODIUM CHLORIDE 0.9% 90 ML IV SCH ×2 (06:40→16:57)
--- NOTE | 2023-10-22 07:20 | XR ---
EXAMINATION TYPE: XR chest 1V DATE OF EXAM: 10/22/2023 5:34 AM CLINICAL INDICATION:Female, 48 years old with history of assess lungs; COMPARISON: Chest radiographs from 10/20/2023 TECHNIQUE: XR chest 1V Frontal view of the chest. FINDINGS: Lungs/Pleura: Lower lobe airspace opacities. There is no evidence of pleural effusion, left focal con solidation, or pneumothorax. Pulmonary vascularity: Pulmonary vascular congestion. Heart/mediastinum: Cardiomediastinal silhouette is enlarged and stable. Musculoskeletal: No acute osseous pathology. Other findings: None IMPRESSION: Right lower lobe airspace opacities correlate for pneumonia. Given cardiomegaly correlate with serum BNP for congestive heart failure
--- NOTE | 2023-10-22 07:24 | P.PN ---
Subjective Progress Note Date: 10/22/23 PROGRESS NOTE The patient is a 48-year-old female with known history of chronic kidney disease, congestive heart failure, obstructive sleep apnea and morbid obesity who presented with symptoms of progressive dyspnea, change in mental status. She was somnolent yesterday and was transferred to the ICU. She is on the BiPAP, awake, alert and following commands. She is on IV heparin with good urinary output. She has no evidence of malignant arrhythmia. Hemodynamically she is stable. Her left ventricle systolic function has been preserved in the past. Medications: IV Lasix drip, hydralazine 50 mg twice a day, isosorbide mononitrate 30 mg daily, metoprolol succinate 100 mg daily, Eliquis milligrams twice a day, Trulicity PHYSICAL EXAMINATION: Blood pressure 123/80 heart rate 60 LUNGS: Clear to auscultation anteriorly HEART: Regular rate and rhythm, S1, S2. No S3. No systolic murmur ABDOMEN: Soft, nontender, no organomegaly, obese EXTREMETIES: Trace edema LAB: Hemoglobin 11.2 yesterday, labs from today pending IMPRESSION: 1. Respiratory failure with hypoxemia and hypercapnia 2. CHF with preserved systolic function 3. Worsening chronic kidney disease 4. Morbid obesity 5. History of hypertension 6. Metabolic encephalopathy, improving 7. Obstructive sleep apnea PLAN: 1. Continue IV Lasix 2. Follow blood pressure and if needed the chest the dose of hydralazine 3. Follow renal functions closely 4. And depending on her progress further recommendations will be made Objective - Vital Signs Vital signs: Vital Signs Temp 97.7 F 10/22/23 04:00 Pulse 58 L 10/22/23 06:00 Resp 15 10/22/23 06:00 BP 122/77 10/22/23 06:00 Pulse Ox 97 10/22/23 06:00 FiO2 35 10/22/23 04:11 Intake & Output 10/21/23 10/22/23 10/22/23 18:59 06:59 18:59 Intake Total 50 251.0 Output Total 500 525 Balance -450 -274.0 Weight 221.724 kg Intake: IV 50 0.9 @ KVO 50 Intake, IV Titration 50 201.0 Amount Furosemide 100 mg In 50 201.0 Sodium Chloride 0.9% 90 ml @ 10 MG/HR 10 mls/hr IV .Q10H FARRAH Rx#: [id number] Output: Urine 500 525 Other: Voiding Method External Catheter Indwelling Catheter # Voids 1 3 # Bowel Movements 1 - Labs CBC & Chem 7: 10/21/23 06:29 10/21/23 06:29 Labs: Abnormal Lab Results - Last 24 Hours (Table) 10/21/23 10/21/23 10/21/23 Range/Units 06:29 14:00 14:00 Iron 22 L (50-170) UG/DL % Saturation 5.07 L (12.00-45.00) Troponin I 0.059 H* (0.000-0.034) ng/mL Folate 40.00 H (4.40-31.00) ng/mL
[2023-10-22 07:39] LABS: Anisocytosis Slight; Basophils % (A) 1 %; Eosinophils # (A) 0.1 k/uL (0-0.7); Eosinophils % (A) 2 %; HCT 36.3 % (34.0-46.0); HGB 10.1 gm/dL (11.4-16.0); Hypochromasia Marked; Lymphocytes # (A) 0.6 k/uL (1.0-4.8); Lymphocytes % (A) 11 %; MCH 23.5 pg (25.0-35.0); MCHC 27.8 g/dL (31.0-37.0); MCV 84.5 fL (80.0-100.0); Mean Platelet Volume 9.9; Monocytes # (A) 0.5 k/uL (0-1.0); Monocytes % (A) 9 %; Neutrophils # (A) 4.1 k/uL (1.3-7.7); Neutrophils % (A) 74 %; Platelet Count 187 k/uL (150-450); Poikilocytosis Slight; RDW 18.1 % (11.5-15.5); WBC 5.5 k/uL (3.8-10.6)
[2023-10-22 07:50] LABS: African American GFR (CKD) 14 (>60 ml/min/1.73 sqM); Anion Gap 10 mmol/L; Blood Urea Nitrogen 91 mg/dL (7-17); Calcium 8.4 mg/dL (8.4-10.2); Carbon Dioxide 21 mmol/L (22-30); Chloride 112 mmol/L (98-107); Glucose 80 mg/dL (74-99); Magnesium 3.1 mg/dL (1.6-2.3); Non-African American GFR(CKD) 12 (>60 ml/min/1.73 sqM); Sodium 143 mmol/L (137-145)
[2023-10-22 07:59] LABS: Potassium 5.2 mmol/L (3.5-5.1)
[2023-10-22] MEDS ORDERED: POTASSIUM CHLORIDE ER 20 MEQ TAB.ER PO SCH (09:00)
[2023-10-22] MEDS ORDERED: metOLazone 2.5 MG TAB PO SCH (09:00)
[2023-10-22] MEDS ORDERED: MAGNESIUM OXIDE 400 MG TAB PO SCH (09:00)
[2023-10-22] MEDS ORDERED: LOSARTAN 25 MG TAB PO SCH (09:00)
[2023-10-22] MEDS ORDERED: acetaZOLAMIDE 250 MG TAB PO SCH (09:00)
[2023-10-22] MEDS: PANTOPRAZOLE 40 MG TABLET PO SCH (09:58)
[2023-10-22] MEDS: APIXABAN 5 MG TAB PO SCH ×2 (09:58→20:17)
[2023-10-22] MEDS: FOLIC ACID 1 MG TAB PO SCH (09:58)
[2023-10-22] MEDS: METOPROLOL SUCCINATE (ER) 100 MG TAB.ER.24H PO SCH (09:58)
--- NOTE | 2023-10-22 10:21 | P.GSCN ---
History of Present Illness Consult date: 10/22/23 Reason for Consult: Urinary retention History of present illness: This is a 48-year-old female admitted to the hospital with CHF exacerbation and acute kidney injury. Patient is currently in the ICU. Urology was consulted initially for Colon catheter placement, initial attempts by nursing staff to place a Colon catheter was unsuccessful, but during the pm shift a Colon catheter was placed with return of clear urine. This morning on evaluation the catheter is in place draining clear yellow urine. Catheter placement was difficult secondary to patient's morbid obesity, as her BMI is a 76.6. No known urological history. No known history of urinary retention, recurrent UTIs or kidney stones. Review of Systems - Constitutional Denies fever, Denies weight loss - Cardiovascular Reports edema, Reports leg edema, Reports shortness of breath - Respiratory Reports dyspnea - Gastrointestinal Denies abdominal pain, Denies nausea, Denies vomiting Past Medical History Past Medical History: Coronary Artery Disease (CAD), Chest Pain / Angina, Heart Failure, Deep Vein Thrombosis (DVT), Hypertension, Osteoarthritis (OA), Renal Disease, Sleep Apnea/CPAP/BIPAP, Supraventricular Tachycardia (SVT) Additional Past Medical History / Comment(s): Pt recently admitted to [facility] on 07/03/22-07/15/22 with acute pulmonary edema. Other hx: Chronic CHF, home oxygen at 3L/NC prn, NIR/no device, previous ventilator dependent respiratory failure, sinus pauses, CKD stage IV, anemia, lymphedema, arthritis bilateral knees, hiatal hernia, diverticular disease, UTIs, constipation, urine and bowel incontinence. History of Any Multi-Drug Resistant Organisms: VRE Year Discovered:: 05/03/20 MDRO Source:: VRE URINE Past Surgical History: Section, Hernia Repair Additional Past Surgical History / Comment(s): abdominal hernia repair with mesh, cysts removed from stomach, EGD, colonoscopy Past Anesthesia/Blood Transfusion Reactions: No Reported Reaction Additional Past Anesthesia/Blood Transfusion Reaction / Comm: Pt has received blood in the past without reaction. Past Psychological History: Anxiety Additional Psychological History / Comment(s): Pt states she lives "pretty much" alone at home. She is mostly bedbound, when someone comes over, they assist her to her wheelchair via george lift. Pt states she was to start with [facility]. Family provides meals. She keeps her medications near her and manages them on her own. She is incontinent of urine/stool and wears depends. Smoking Status: Never smoker Past Alcohol Use History: None Reported Past Drug Use History: None Reported - Past Family History Father Family Medical History: Congestive Heart Failure (CHF) Additional Family Medical History / Comment(s): Father from CHF. Mother Family Medical History: Cancer, Hypertension, Sleep Apnea/CPAP/BIPAP Additional Family Medical History / Comment(s): Mother has had cancer removed from ear/head. Medications and Allergies Home Medications Medication Instructions Recorded Confirmed Type Omeprazole 20 mg PO DAILY 11/05/17 10/20/23 History Magnesium Oxide [Mag-Ox] 400 mg PO DAILY 12/19/22 10/20/23 History Folic Acid 1 mg PO DAILY #30 tab 12/28/22 10/20/23 Rx acetaZOLAMIDE [Diamox] 250 mg PO DAILY 05/09/23 10/20/23 History metOLazone [Zaroxolyn] 2.5 mg PO DAILY 05/09/23 10/20/23 History Amiodarone [Cordarone] 200 mg PO DAILY #30 tab 05/24/23 10/20/23 Rx Apixaban [Eliquis] 5 mg PO BID #60 tab 05/24/23 10/20/23 Rx Isosorbide Mononitrate ER [Imdur] 30 mg PO DAILY #30 tab 05/24/23 10/20/23 Rx Metoprolol Succinate (ER) [Toprol 100 mg PO DAILY 06/14/23 10/20/23 History XL] Losartan [Cozaar] 25 mg PO DAILY 30 Days #30 tab 06/24/23 10/20/23 Rx Potassium Chloride ER [K-Dur 20] 20 meq PO DAILY 30 Days #30 tab 06/24/23 10/20/23 Rx Baclofen 10 mg PO DAILY 10/20/23 10/20/23 History Dulaglutide [Trulicity] 0.75 mg SQ Q7D 10/20/23 10/20/23 History Furosemide [Lasix] 80 mg PO BID 10/20/23 10/20/23 History hydrALAZINE HCL [Apresoline] 50 mg PO TID 10/20/23 10/20/23 History Allergies Allergy/AdvReac Type Severity Reaction Status Date / Time No Known Allergies Allergy Verified 10/20/23 21:11 Surgical - Exam Vital Signs Temp Pulse Resp BP Pulse Ox 97.2 F L 67 26 H 148/102 90 L 10/20/23 18:15 10/20/23 18:15 10/20/23 18:15 10/20/23 18:15 10/20/23 18:15 - General no distress, no pain - Respiratory On BiPAP - Abdomen Abdomen: soft, no non tender, distended - Genitourinary Colon in place with clear urine Results - Labs 10/22/23 06:22 10/22/23 06:22 Abnormal Lab Results - Last 24 Hours (Table) 10/21/23 10/21/23 10/22/23 Range/Units 14:00 14:00 06:22 Hgb 10.1 L (11.4-16.0) gm/dL MCH 23.5 L (25.0-35.0) pg MCHC 27.8 L (31.0-37.0) g/dL RDW 18.1 H (11.5-15.5) % Lymphocytes # 0.6 L (1.0-4.8) k/uL Potassium (3.5-5.1) mmol/L Chloride (98-107) mmol/L Carbon Dioxide (22-30) mmol/L BUN (7-17) mg/dL Creatinine (0.52-1.04) mg/dL Magnesium (1.6-2.3) mg/dL Iron 22 L (50-170) UG/DL % Saturation 5.07 L (12.00-45.00) Folate 40.00 H (4.40-31.00) ng/mL 10/22/23 Range/Units 06:22 Hgb (11.4-16.0) gm/dL MCH (25.0-35.0) pg MCHC (31.0-37.0) g/dL RDW (11.5-15.5) % Lymphocytes # (1.0-4.8) k/uL Potassium 5.2 H (3.5-5.1) mmol/L Chloride 112 H (98-107) mmol/L Carbon Dioxide 21 L (22-30) mmol/L BUN 91 H (7-17) mg/dL Creatinine 4.03 H (0.52-1.04) mg/dL Magnesium 3.1 H (1.6-2.3) mg/dL Iron (50-170) UG/DL % Saturation (12.00-45.00) Folate (4.40-31.00) ng/mL Diabetes panel 10/22/23 Range/Units 06:22 Sodium 143 (137-145) mmol/L Potassium 5.2 H (3.5-5.1) mmol/L Chloride 112 H (98-107) mmol/L Carbon Dioxide 21 L (22-30) mmol/L BUN 91 H (7-17) mg/dL Creatinine 4.03 H (0.52-1.04) mg/dL Glucose 80 (74-99) mg/dL Calcium 8.4 (8.4-10.2) mg/dL Calcium panel 10/22/23 Range/Units 06:22 Calcium 8.4 (8.4-10.2) mg/dL Pituitary panel 10/22/23 Range/Units 06:22 Sodium 143 (137-145) mmol/L Potassium 5.2 H (3.5-5.1) mmol/L Chloride 112 H (98-107) mmol/L Carbon Dioxide 21 L (22-30) mmol/L BUN 91 H (7-17) mg/dL Creatinine 4.03 H (0.52-1.04) mg/dL Glucose 80 (74-99) mg/dL Calcium 8.4 (8.4-10.2) mg/dL Adrenal panel 10/22/23 Range/Units 06:22 Sodium 143 (137-145) mmol/L Potassium 5.2 H (3.5-5.1) mmol/L Chloride 112 H (98-107) mmol/L Carbon Dioxide 21 L (22-30) mmol/L BUN 91 H (7-17) mg/dL Creatinine 4.03 H (0.52-1.04) mg/dL Glucose 80 (74-99) mg/dL Calcium 8.4 (8.4-10.2) mg/dL Assessment and Plan Assessment: 48-year-old female with morbid obesity BMI of 76.6. There was some difficulty with Colon catheter placement by the nursing staff, but subsequently a Colon catheter was placed. This morning she does have a catheter in place draining clear yellow urine. At this point recommend keeping the catheter until patient is closer to discharge, as attempt to place another catheter would be challenging given her morbid obesity.
--- NOTE | 2023-10-22 10:53 | P.PN ---
Subjective Patient is seen for follow-up for acute kidney injury and volume overload. She was transferred to the ICU yesterday. Currently maintained on Lasix drip at 10 mg an hour. Urine output 100 to 170 cc/h. Patient is more awake today however she falls back to sleep. She is maintained on BiPAP. Serum creatinine at 4.0 today. Objective - Vital Signs Vital signs: Vital Signs Temp 97.9 F 10/22/23 08:00 Pulse 67 10/22/23 10:00 Resp 19 10/22/23 10:00 BP 138/95 10/22/23 10:00 Pulse Ox 97 10/22/23 10:00 FiO2 35 10/22/23 08:00 Intake & Output 10/21/23 10/22/23 10/22/23 18:59 06:59 18:59 Intake Total 50 251.0 20 Output Total 500 525 490 Balance -450 -274.0 -470 Weight 221.724 kg Intake: IV 50 20 0.9 @ KVO 50 20 Intake, IV Titration 50 201.0 Amount Furosemide 100 mg In 50 201.0 Sodium Chloride 0.9% 90 ml @ 10 MG/HR 10 mls/hr IV .Q10H [facility] Rx#: [id number] Output: Urine 500 525 490 Other: Voiding Method External Catheter Indwelling Catheter Indwelling Catheter # Voids 1 3 # Bowel Movements 1 - Exam Patient is awake, comfortable she is on BiPAP Examination of the heart S1 and S2 Examination of the lungs decreased breath sounds at the bases Abdomen is soft morbidly obese Examination of lower extremities with chronic edema 2-3+ bilaterally [employer] exam grossly intact. - Labs CBC & Chem 7: 10/22/23 06:22 10/22/23 06:22 Labs: Abnormal Lab Results - Last 24 Hours (Table) 10/21/23 10/21/23 10/22/23 Range/Units 14:00 14:00 06:22 Hgb 10.1 L (11.4-16.0) gm/dL MCH 23.5 L (25.0-35.0) pg MCHC 27.8 L (31.0-37.0) g/dL RDW 18.1 H (11.5-15.5) % Lymphocytes # 0.6 L (1.0-4.8) k/uL Potassium (3.5-5.1) mmol/L Chloride (98-107) mmol/L Carbon Dioxide (22-30) mmol/L BUN (7-17) mg/dL Creatinine (0.52-1.04) mg/dL Magnesium (1.6-2.3) mg/dL Iron 22 L (50-170) UG/DL % Saturation 5.07 L (12.00-45.00) Folate 40.00 H (4.40-31.00) ng/mL 10/22/23 Range/Units 06:22 Hgb (11.4-16.0) gm/dL MCH (25.0-35.0) pg MCHC (31.0-37.0) g/dL RDW (11.5-15.5) % Lymphocytes # (1.0-4.8) k/uL Potassium 5.2 H (3.5-5.1) mmol/L Chloride 112 H (98-107) mmol/L Carbon Dioxide 21 L (22-30) mmol/L BUN 91 H (7-17) mg/dL Creatinine 4.03 H (0.52-1.04) mg/dL Magnesium 3.1 H (1.6-2.3) mg/dL Iron (50-170) UG/DL % Saturation (12.00-45.00) Folate (4.40-31.00) ng/mL Assessment and Plan Assessment: 1. ANGUS, cardiorenal, nonoliguric. U/A in may showed 3+ prtn. UPCR 2.4, W/U showed THANH 1: 80 and elevated kappa and lambda chains but ratio not signi ficantly elevated. USS in May 2023 showed no obstruction, Left kidney not seen due to bowel gas pattern and body habitus. 2. CKD progressively worsening. 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 UPCR 2.4, W/U showed THANH 1: 80 and elevated kappa and lambda chains but ratio not significantly elevated. Ideally a kidney bx should be performed. Will obtain hematology evaluation as well. 3. Volume overload. 4. Acute on chronic diastolic CHF, EF 50-55% in April 2023 Plan: Continue with Lasix drip Repeat labs in a.m. Continue to avoid nephrotoxic agents Await 24-hour urine collection for free light chains.
[2023-10-22] MEDS: hydrALAZINE HCL 50 MG TAB PO SCH ×2 (11:28→20:17)
[2023-10-22] MEDS: ISOSORBIDE MONONITRATE ER 30 MG TAB.ER.24H PO SCH (11:28)
--- NOTE | 2023-10-22 12:48 | P.PN ---
Subjective Progress Note Date: 10/22/23 Principal diagnosis: Acute on chronic hypoxic and hypercapnic respiratory failure This is a 48-year-old -[place] female, known history of congestive heart failure hypertension more than obesity obstructive sleep apnea syndrome, chronic hypoxic respiratory failure, previous ventilator dependent respiratory failure, chronic kidney disease stage IV, left upper extremity lymphedema, anemia, frequent episodes of urinary tract infections, multiple previous admissions with congestive heart failure and hypoxic and hypercapnic respiratory failure. Patient was admitted today with chief complaint of shortness of breath, and increased lower extremity swelling. Upon my evaluation, patient was noted to be on BiPAP, lethargic, opens eyes to verbal stimuli, and her chest x-ray clearly showed evidence of pulmonary edema. ABG on admission showed a pO2 of 82 pCO2 60 pH of 7.18. Her labs clearly showed evidence of worsening renal failure with a BUN of 88 creatinine 4.23, hence I suggested starting the patient on IV Lasix drip, and I also suggested admitting the patient to the ICU since her overall pulmonary status seems to be marginal at best. Her BNP level was over 10,000. And troponin level was elevated at around 0.060. Previous echocardiogram on this patient showed preserved systolic function with ejection fraction of 50-55% labs today showed WBC count 6.1 hemoglobin 11.2. Sodium 144 potassium 4.6 bicarb is 20 BUN is 88 creatinine 4.23 Patient evaluated today on 10/23/2022, I saw this patient yesterday in consultation, and I transferred the patient to the ICU. Patient was in acute on chronic diastolic congestive heart failure, I started the patient on Lasix drip at 10 mg/h, she was kept on BiPAP 16/6/35%, and reevaluated today, seems to be definitely more awake, more responsive compared to yesterday, patient is feeling better, and she has had significant urine output since admission. Patient has been in negative fluid balance almost a liter and a half over the last 12 hours. Yesterday we had difficulty placing a Colon catheter, however the nurses were finally successful in placing 1, and seems to be draining well and functional. Right now patient has a urine output of 100 up to 170 cc/h on the Lasix drip. She was seen by nephrology in consultation and felt to have acute kidney injury, cardiorenal nonoliguric, and the recommendation was to continue Lasix drip WBC count today is 5.5 hemoglobin is 10.1. Basic metabolic profile is normal bicarb is 21 BUN is 91 creatinine 4.03. Objective - Vital Signs Vital signs: Vital Signs Temp 97.9 F 10/22/23 08:00 Pulse 58 L 10/22/23 11:00 Resp 20 10/22/23 11:00 BP 151/106 10/22/23 11:00 Pulse Ox 97 10/22/23 11:00 FiO2 35 10/22/23 11:41 Intake & Output 10/21/23 10/22/23 10/22/23 18:59 06:59 18:59 Intake Total 50 251.0 20 Output Total 500 525 490 Balance -450 -274.0 -470 Weight 221.724 kg Intake: IV 50 20 0.9 @ KVO 50 20 Intake, IV Titration 50 201.0 Amount Furosemide 100 mg In 50 201.0 Sodium Chloride 0.9% 90 ml @ 10 MG/HR 10 mls/hr IV .Q10H [facility] Rx#: [id number] Output: Urine 500 525 490 Other: Voiding Method External Catheter Indwelling Catheter Indwelling Catheter # Voids 1 3 # Bowel Movements 1 - Exam Physical Exam: Revealed a 48-year-old female, obese, on BiPAP, better today compared to yesterday Head: Atraumatic, normocephalic. HEENT: Short obese neck. [Neck is supple.] [No neck masses.] [No thyromegaly.] [No JVD.] Chest: Crackles persist at the bases bilaterally. No rhonchi no wheezes. Cardiac Exam: Distant S1 and S2, no S3 gallop. Abdomen: [Morbidly obese, Soft, nontender, no megaly, no rebound, no guarding, normal bowel sounds.] Extremities: [No clubbing, 1+ bipedal edema, no cyanosis.] Neurological Exam: Arousable, seems to be alert and oriented, follows simple instructions. But generally weak. Psychiatric: Flat affect, normal mental status, follows instructions - Labs CBC & Chem 7: 10/22/23 06:22 10/22/23 06:22 Labs: Abnormal Lab Results - Last 24 Hours (Table) 10/21/23 10/21/23 10/22/23 Range/Units 14:00 14:00 06:22 Hgb 10.1 L (11.4-16.0) gm/dL MCH 23.5 L (25.0-35.0) pg MCHC 27.8 L (31.0-37.0) g/dL RDW 18.1 H (11.5-15.5) % Lymphocytes # 0.6 L (1.0-4.8) k/uL Potassium (3.5-5.1) mmol/L Chloride (98-107) mmol/L Carbon Dioxide (22-30) mmol/L BUN (7-17) mg/dL Creatinine (0.52-1.04) mg/dL Magnesium (1.6-2.3) mg/dL Iron 22 L (50-170) UG/DL % Saturation 5.07 L (12.00-45.00) Folate 40.00 H (4.40-31.00) ng/mL 10/22/23 Range/Units 06:22 Hgb (11.4-16.0) gm/dL MCH (25.0-35.0) pg MCHC (31.0-37.0) g/dL RDW (11.5-15.5) % Lymphocytes # (1.0-4.8) k/uL Potassium 5.2 H (3.5-5.1) mmol/L Chloride 112 H (98-107) mmol/L Carbon Dioxide 21 L (22-30) mmol/L BUN 91 H (7-17) mg/dL Creatinine 4.03 H (0.52-1.04) mg/dL Magnesium 3.1 H (1.6-2.3) mg/dL Iron (50-170) UG/DL % Saturation (12.00-45.00) Folate (4.40-31.00) ng/mL Assessment and Plan Assessment: Impression: Acute on chronic hypoxic and hypercapnic respiratory failure Acute on chronic diastolic congestive heart failure Morbid obesity, BMI over 75 Acute on chronic kidney disease Acute metabolic encephalopathy Paroxysmal atrial fibrillation Obesity/hypoventilation syndrome Obstructive sleep apnea syndrome, not on CPAP or BiPAP History of DVT. Acute on chronic kidney disease Benign essential hypertension History of respiratory failure requiring intubation and mechanical ventilation Anemia of chronic disease Chronic left upper extremity lymphedema recommendation: Continue to monitor in the ICU Continue Lasix drip at 10 mg/h Seen by cardiology and nephrology no major changes recommended Continue BiPAP Continue eliquis GI and DVT prophylaxis Strict I's and does while in the ICU Closely monitor electrolytes and renal profile We will continue to follow. Prognosis is guarded Time with Patient: Less than 30
[2023-10-22] MEDS: ACETAMINOPHEN TAB 325 MG TAB PO PRN (13:34)
[2023-10-22 14:13] LABS: Free Kappa Lt Chain Qnt, Serum 16.35 mg/dL (0.33-1.94); Free Lambda Lt Chain Qnt, Seru 10.37 mg/dL (0.57-2.63)
[2023-10-23] MEDS: FUROSEMIDE 100 MG in SODIUM CHLORIDE 0.9% 90 ML IV SCH ×2 (01:09→10:08)
[2023-10-23 05:03] LABS: African American GFR (CKD) 12 (>60 ml/min/1.73 sqM); Anion Gap 11 mmol/L; Blood Urea Nitrogen 95 mg/dL (7-17); Calcium 8.6 mg/dL (8.4-10.2); Carbon Dioxide 18 mmol/L (22-30); Chloride 116 mmol/L (98-107); Glucose 94 mg/dL (74-99); Non-African American GFR(CKD) 11 (>60 ml/min/1.73 sqM); Sodium 145 mmol/L (137-145)
[2023-10-23 05:08] LABS: Potassium 5.3 mmol/L (3.5-5.1)
[2023-10-23 05:55] LABS: Anisocytosis Slight; Basophils % (A) 0 %; Eosinophils # (A) 0.1 k/uL (0-0.7); Eosinophils % (A) 2 %; HCT 34.3 % (34.0-46.0); HGB 9.7 gm/dL (11.4-16.0); Hypochromasia Marked; Lymphocytes # (A) 0.8 k/uL (1.0-4.8); Lymphocytes % (A) 14 %; MCH 23.5 pg (25.0-35.0); MCHC 28.4 g/dL (31.0-37.0); MCV 82.9 fL (80.0-100.0); Mean Platelet Volume 11.6; Microcytosis Slight; Monocytes # (A) 0.5 k/uL (0-1.0); Monocytes % (A) 9 %; Neutrophils % (A) 71 %; Platelet Count 172 k/uL (150-450); Poikilocytosis Slight; RBC 4.14 m/uL (3.80-5.40); WBC 5.6 k/uL (3.8-10.6)
[2023-10-23 08:30] LABS: Protein, Total 8.1 g/dL (6.2-8.2)
--- NOTE | 2023-10-23 08:43 | XR ---
EXAMINATION TYPE: XR chest 1V portable DATE OF EXAM: 10/23/2023 Comparison: 10/22/2023 Clinical History: 48-year-old female shortness of breath Findings: Heart moderately enlarged. Interstitial and bilateral patchy opacities persist especially in the mid and lower lungs. Large body habitus limiting the assessment. Impression: Moderate cardiomegaly and ongoing interstitial and patchy opacities especially in the mid and lower l ungs. Correlate for CHF as an etiology
[2023-10-23] MEDS: APIXABAN 5 MG TAB PO SCH ×2 (09:30→21:23)
[2023-10-23] MEDS: METOPROLOL SUCCINATE (ER) 100 MG TAB.ER.24H PO SCH (09:31)
[2023-10-23] MEDS: hydrALAZINE HCL 50 MG TAB PO SCH ×2 (09:31→21:23)
[2023-10-23] MEDS: FOLIC ACID 1 MG TAB PO SCH (09:31)
[2023-10-23] MEDS: ISOSORBIDE MONONITRATE ER 30 MG TAB.ER.24H PO SCH (09:31)
[2023-10-23] MEDS: PANTOPRAZOLE 40 MG TABLET PO SCH (09:31)
--- NOTE | 2023-10-23 09:38 | P.PN ---
Subjective Progress Note Date: 10/23/23 PROGRESS NOTE The patient is a 48-year-old female with known history of chronic kidney disease, congestive heart failure, obstructive sleep apnea and morbid obesity who presented with symptoms of progressive dyspnea, change in mental status. She was somnolent yesterday and was transferred to the ICU. She is on the BiPAP, awake, alert and following commands. She is on IV heparin with good urinary output. She has no evidence of malignant arrhythmia. Hemodynamically she is stable. Her left ventricle systolic function has been preserved in the past. September 22: The patient continues to be on BiPAP. She is more sleepy this morning. According to the nursing staff she slept late. She was awake and alert earlier according to them appropriate. She continues to be in sinus mechanism and hemodynamically stable. She is on no vasopressor. She continues to be on IV Lasix drip with good urine output. Medications: IV Lasix drip, hydralazine 50 mg twice a day, isosorbide mononitrate 30 mg daily , metoprolol succinate 100 mg daily, Eliquis milligrams twice a day, Trulicity PHYSICAL EXAMINATION: Blood pressure 117/90 heart rate 66 LUNGS: Clear to auscultation anteriorly HEART: Regular rate and rhythm, S1, S2. No S3. No systolic murmur ABDOMEN: Soft, nontender, no organomegaly, obese EXTREMETIES: Trace edema LAB: Hemoglobin 9.7 , BUN 95, creatinine 4.49, potassium 5.3 IMPRESSION: 1. Respiratory failure with hypoxemia and hypercapnia 2. CHF with preserved systolic function 3. Worsening chronic kidney disease 4. Morbid obesity 5. History of hypertension 6. Metabolic encephalopathy, improving 7. Obstructive sleep apnea 8. History of paroxysmal atrial fibrillation PLAN: 1. Continue IV Lasix 2. Continue to follow renal functions 3. Depending on her renal function she may require hemodialysis 4. Depending on her progress further recommendations will be made Objective - Vital Signs Vital signs: Vital Signs Temp 97.8 F 10/23/23 08:00 Pulse 66 10/23/23 08:00 Resp 16 10/23/23 08:00 BP 117/93 10/23/23 08:00 Pulse Ox 94 L 10/23/23 08:00 FiO2 35 10/23/23 08:00 Intake & Output 10/22/23 10/23/23 10/23/23 18:59 06:59 18:59 Intake Total 160 147 5 Output Total 1145 1610 175 Balance -381 -8252 -042 Intake: IV 60 65 5 0.9 @ KVO 60 65 5 Intake, IV Titration 100 82 Amount Furosemide 100 mg In 100 82 Sodium Chloride 0.9% 90 ml @ 10 MG/HR 10 mls/hr IV .Q10H [facility] Rx#: [id number] Output: Urine 1143 1610 175 Other: Voiding Method Indwelling Catheter Indwelling Catheter Indwelling Catheter - Labs CBC & Chem 7: 10/23/23 04:18 10/23/23 04:18 Labs: Abnormal Lab Results - Last 24 Hours (Table) 10/21/23 10/22/23 10/23/23 Range/Units 06:29 06:22 04:18 Hgb 9.7 L (11.4-16.0) gm/dL MCH 23.5 L (25.0-35.0) pg MCHC 28.4 L (31.0-37.0) g/dL RDW 18.0 H (11.5-15.5) % Lymphocytes # 0.8 L (1.0-4.8) k/uL Potassium (3.5-5.1) mmol/L Chloride (98-107) mmol/L Carbon Dioxide (22-30) mmol/L BUN (7-17) mg/dL Creatinine (0.52-1.04) mg/dL IgG 2086.0 H (700.0-1600.0) mg/dL Free [place] LC, Quant 16.35 H (0.33-1.94) mg/dL Free Lambda LC, Quant 10.37 H (0.57-2.63) mg/dL 10/23/23 Range/Units 04:18 Hgb (11.4-16.0) gm/dL MCH (25.0-35.0) pg MCHC (31.0-37.0) g/dL RDW (11.5-15.5) % Lymphocytes # (1.0-4.8) k/uL Potassium 5.3 H (3.5-5.1) mmol/L Chloride 116 H (98-107) mmol/L Carbon Dioxide 18 L (22-30) mmol/L BUN 95 H (7-17) mg/dL Creatinine 4.49 H (0.52-1.04) mg/dL IgG (700.0-1600.0) mg/dL Free [place] LC, Quant (0.33-1.94) mg/dL Free Lambda LC, Quant (0.57-2.63) mg/dL
[2023-10-23] MEDS: ACETAMINOPHEN TAB 325 MG TAB PO PRN (09:45)
--- NOTE | 2023-10-23 12:07 | P.PN ---
Subjective Progress Note Date: 10/23/23 Principal diagnosis: Acute on chronic hypoxic and hypercapnic respiratory failure This is a 48-year-old -Serbian female, known history of congestive heart failure hypertension more than obesity obstructive sleep apnea syndrome, chronic hypoxic respiratory failure, previous ventilator dependent respiratory failure, chronic kidney disease stage IV, left upper extremity lymphedema, anemia, frequent episodes of urinary tract infections, multiple previous admissions with congestive heart failure and hypoxic and hypercapnic respiratory failure. Patient was admitted today with chief complaint of shortness of breath, and increased lower extremity swelling. Upon my evaluation, patient was noted to be on BiPAP, lethargic, opens eyes to verbal stimuli, and her chest x-ray clearly showed evidence of pulmonary edema. ABG on admission showed a pO2 of 82 pCO2 60 pH of 7.18. Her labs clearly showed evidence of worsening renal failure with a BUN of 88 creatinine 4.23, hence I suggested starting the patient on IV Lasix drip, and I also suggested admitting the patient to the ICU since her overall pulmonary status seems to be marginal at best. Her BNP level was over 10,000. And troponin level was elevated at around 0.060. Previous echocardiogram on this patient showed preserved systolic function with ejection fraction of 50-55% labs today showed WBC count 6.1 hemoglobin 11.2. Sodium 144 potassium 4.6 bicarb is 20 BUN is 88 creatinine 4.23 Patient evaluated today on 10/23/2022, I saw this patient yesterday in consultation, and I transferred the patient to the ICU. Patient was in acute on chronic diastolic congestive heart failure, I started the patient on Lasix drip at 10 mg/h, she was kept on BiPAP 16/6/35%, and reevaluated today, seems to be definitely more awake, more responsive compared to yesterday, patient is feeling better, and she has had significant urine output since admission. Patient has been in negative fluid balance almost a liter and a half over the last 12 hours. Yesterday we had difficulty placing a Colon catheter, however the nurses were finally successful in placing 1, and seems to be draining well and functional. Right now patient has a urine output of 100 up to 170 cc/h on the Lasix drip. She was seen by nephrology in consultation and felt to have acute kidney injury, cardiorenal nonoliguric, and the recommendation was to continue Lasix drip WBC count today is 5.5 hemoglobin is 10.1. Basic metabolic profile is normal bicarb is 21 BUN is 91 creatinine 4.03. Patient was reevaluated today on 10/23/2023, remains on Lasix drip, remains in negative balance, feeling better, and she is now on BiPAP 16/6/35%. Patient is about -4 L/fluid balance. Her creatinine is a bit high at 4.49 today. Labs this morning showed WBC count of 5.6 hemoglobin 9.7 sodium 145 potassium 5.3 bicarb is 18 BUN 95 creatinine 4.49, patient is being followed by nephrology and she is also being followed by cardiology. Clinically there is some improvement, but nonetheless patient continues to be marginal at best. Clearly the patient has congestive heart failure with preserved systolic function. And she had similar presentations in the past her mentation seems to be improving, and her metabolic encephalopathy is getting better. Objective - Vital Signs Vital signs: Vital Signs Temp 97.8 F 10/23/23 08:00 Pulse 71 10/23/23 11:00 Resp 21 10/23/23 11:00 BP 125/48 10/23/23 11:00 Pulse Ox 94 L 10/23/23 11:00 FiO2 35 10/23/23 11:54 Intake & Output 10/22/23 10/23/23 10/23/23 18:59 06:59 18:59 Intake Total 160 147 959.333 Output Total 1145 1610 555 Balance -985 -1463 404.333 Intake: IV 60 65 25 0.9 @ KVO 60 65 25 Intake, IV Titration 100 82 104.333 Amount Furosemide 100 mg In 100 82 104.333 Sodium Chloride 0.9% 90 ml @ 10 MG/HR 10 mls/hr IV .Q10H [facility] Rx#: [id number] Oral 830 Output: Urine 1145 1610 555 Other: Voiding Method Indwelling Catheter Indwelling Catheter Indwelling Catheter - Exam Physical Exam: Revealed a 48-year-old female, obese, on BiPAP, continues to improve steadily Head: Atraumatic, normocephalic. HEENT: Short obese neck. [Neck is supple.] [No neck masses.] [No thyromegaly.] [No JVD.] Chest: Crackles persist at the bases bilaterally. No rhonchi no wheezes. Cardiac Exam: Distant S1 and S2, no S3 gallop. Abdomen: [Morbidly obese, Soft, nontender, no megaly, no rebound, no guarding, normal bowel sounds.] Extremities: [No clubbing, 1+ bipedal edema, no cyanosis.] Neurological Exam: Arousable, seems to be alert and oriented, follows simple instructions. But generally weak. Psychiatric: Flat affect, normal mental status, follows instructions - Labs CBC & Chem 7: 10/23/23 04:18 10/23/23 04:18 Labs: Abnormal Lab Results - Last 24 Hours (Table) 10/21/23 10/22/23 10/23/23 Range/Units 06:29 06:22 04:18 Hgb 9.7 L (11.4-16.0) gm/dL MCH 23.5 L (25.0-35.0) pg MCHC 28.4 L (31.0-37.0) g/dL RDW 18.0 H (11.5-15.5) % Lymphocytes # 0.8 L (1.0-4.8) k/uL Potassium (3.5-5.1) mmol/L Chloride (98-107) mmol/L Carbon Dioxide (22-30) mmol/L BUN (7-17) mg/dL Creatinine (0.52-1.04) mg/dL IgG 2086.0 H (700.0-1600.0) mg/dL Free Aneth LC, Quant 16.35 H (0.33-1.94) mg/dL Free Lambda LC, Quant 10.37 H (0.57-2.63) mg/dL 10/23/23 Range/Units 04:18 Hgb (11.4-16.0) gm/dL MCH (25.0-35.0) pg MCHC (31.0-37.0) g/dL RDW (11.5-15.5) % Lymphocytes # (1.0-4.8) k/uL Potassium 5.3 H (3.5-5.1) mmol/L Chloride 116 H (98-107) mmol/L Carbon Dioxide 18 L (22-30) mmol/L BUN 95 H (7-17) mg/dL Creatinine 4.49 H (0.52-1.04) mg/dL IgG (700.0-1600.0) mg/dL Free Aneth LC, Quant (0.33-1.94) mg/dL Free Lambda LC, Quant (0.57-2.63) mg/dL Assessment and Plan Assessment: Impression: Acute on chronic hypoxic and hypercapnic respiratory failure Acute on chronic diastolic congestive heart failure Morbid obesity, BMI over 75 Acute on chronic kidney disease Acute metabolic encephalopathy Paroxysmal atrial fibrillation Obesity/hypoventilation syndrome Obstructive sleep apnea syndrome, not on CPAP or BiPAP History of DVT. Acute on chronic kidney disease Benign essential hypertension History of respiratory failure requiring intubation and mechanical ventilation Anemia of chronic disease Chronic left upper extremity lymphedema recommendation: Continue to monitor in the ICU Continue Lasix drip at 10 mg/h Continue BiPAP alternate with nasal cannula Continue eliquis GI and DVT prophylaxis Strict I's and does while in the ICU Continue to monitor labs daily We will continue to follow. Prognosis is guarded Time with Patient: Less than 30
--- NOTE | 2023-10-23 12:55 | P.PN ---
Subjective Progress Note Date: 10/23/23 Principal diagnosis: Elevated K/L light chains In f/u today pt reports that she is feeling better then on admit, breathing is less labored, no severe SOB, no other acute physical c/o. Objective - Vital Signs Vital signs: Vital Signs Temp 97.8 F 10/23/23 08:00 Pulse 64 10/23/23 12:00 Resp 20 10/23/23 12:00 BP 125/48 10/23/23 12:00 Pulse Ox 93 L 10/23/23 12:00 FiO2 35 10/23/23 11:54 Intake & Output 10/22/23 10/23/23 10/23/23 18:59 06:59 18:59 Intake Total 160 147 959.333 Output Total 1145 1610 555 Balance -985 -1463 404.333 Intake: IV 60 65 25 0.9 @ KVO 60 65 25 Intake, IV Titration 100 82 104.333 Amount Furosemide 100 mg In 100 82 104.333 Sodium Chloride 0.9% 90 ml @ 10 MG/HR 10 mls/hr IV .Q10H [facility] Rx#: [id number] Oral 830 Output: Urine 1145 1610 555 Other: Voiding Method Indwelling Catheter Indwelling Catheter Indwelling Catheter - Constitutional General appearance: Present: cooperative, morbidly obese, no acute distress - EENT Eyes: Present: anicteric sclerae, EOMI ENT: Present: hearing grossly normal - Respiratory Details: resp even and unlabored at rest - Cardiovascular Rhythm: regular - Peripheral edema leg Peripheral Edema: bilateral: 1+ (not as pitting as previous) - Neurologic Neurologic: Present: CNII-XII intact - Musculoskeletal Musculoskeletal: Present: strength equal bilaterally - Psychiatric Psychiatric: Present: A&O x's 3, appropriate affect, intact judgment & insight - Labs CBC & Chem 7: 10/23/23 04:18 10/23/23 04:18 Labs: Abnormal Lab Results - Last 24 Hours (Table) 10/21/23 10/22/23 10/23/23 Range/Units 06:29 06:22 04:18 Hgb 9.7 L (11.4-16.0) gm/dL MCH 23.5 L (25.0-35.0) pg MCHC 28.4 L (31.0-37.0) g/dL RDW 18.0 H (11.5-15.5) % Lymphocytes # 0.8 L (1.0-4.8) k/uL Potassium (3.5-5.1) mmol/L Chloride (98-107) mmol/L Carbon Dioxide (22-30) mmol/L BUN (7-17) mg/dL Creatinine (0.52-1.04) mg/dL IgG 2086.0 H (700.0-1600.0) mg/dL Free Gabbs LC, Quant 16.35 H (0.33-1.94) mg/dL Free Lambda LC, Quant 10.37 H (0.57-2.63) mg/dL 10/23/23 Range/Units 04:18 Hgb (11.4-16.0) gm/dL MCH (25.0-35.0) pg MCHC (31.0-37.0) g/dL RDW (11.5-15.5) % Lymphocytes # (1.0-4.8) k/uL Potassium 5.3 H (3.5-5.1) mmol/L Chloride 116 H (98-107) mmol/L Carbon Dioxide 18 L (22-30) mmol/L BUN 95 H (7-17) mg/dL Creatinine 4.49 H (0.52-1.04) mg/dL IgG (700.0-1600.0) mg/dL Free Gabbs LC, Quant (0.33-1.94) mg/dL Free Lambda LC, Quant (0.57-2.63) mg/dL - Imaging and Cardiology Chest x-ray: report reviewed Assessment and Plan (1) Elevated serum immunoglobulin free light chains Current Visit: Yes Status: Acute Priority: Medium Code(s): R76.8 - OTHER SPECIFIED ABNORMAL IMMUNOLOGICAL FINDINGS IN SERUM SNOMED Code(s): 88612869944 Plan: Elevated serum light chains -Previous labs reviewed. K/L light chains cont to be elevated, ratio is near normal, better then previous. Pending SPEP, immunofixation. IgM,IgA levels are normal, IgG elevated, non-specific. -Hgb showing mild anemia, calcium levels are normal, CKD noted in this medical record since 2013. Hx iron deficient anemia -Hgb further decreased to 9.7 today. Hgb baseline is 9-10 range. No reports of bleeding, nothing on exam to suggest bleeding at this time. CBC daily while inpt -Iron studies showing low saturation and low normal ferritin, most consistent with iron deficiency. IV iron ordered. Dr. Lopezests: I have seen and examined pt, performed H&P, developed impression and plan of care. Discussed with dictator. Agree with documentation, dictated as a scribe.
[2023-10-23] MEDS: SODIUM FERRIC GLUCONAT-SUCROSE 125 MG in SODIUM CHLORIDE 0.9% 100 ML IVPB SCH (15:34)
--- NOTE | 2023-10-23 16:10 | P.PN ---
Subjective Patient is seen for follow-up for acute kidney injury and volume overload. Currently maintained on Lasix drip at 10 mg an hour. Urine output 100 to 170 cc/h. Patient is more awake today Serum creatinine at 4.49 today. Objective - Vital Signs Vital signs: Vital Signs Temp 97.8 F 10/23/23 08:00 Pulse 78 10/23/23 15:00 Resp 12 10/23/23 15:00 BP 130/72 10/23/23 15:00 Pulse Ox 93 L 10/23/23 15:00 FiO2 35 10/23/23 14:00 Intake & Output 10/22/23 10/23/23 10/23/23 18:59 06:59 18:59 Intake Total 659 366 6088.333 Output Total 1145 1610 810 Balance -985 -1463 344.333 Intake: IV 60 65 40 0.9 @ KVO 60 65 40 Intake, IV Titration 100 82 104.333 Amount Furosemide 100 mg In 100 82 104.333 Sodium Chloride 0.9% 90 ml @ 10 MG/HR 10 mls/hr IV .Q10H [facility] Rx#: [id number] Oral 1010 Output: Urine 1145 1610 810 Other: Voiding Method Indwelling Catheter Indwelling Catheter Indwelling Catheter - Exam Patient is awake, comfortable Examination of the heart S1 and S2 Examination of the lungs decreased breath sounds at the bases Abdomen is soft morbidly obese Examination of lower extremities with chronic edema 2-3+ bilaterally [employer]ESSION[employer] exam grossly intact. - Labs CBC & Chem 7: 10/23/23 04:18 10/23/23 04:18 Labs: Abnormal Lab Results - Last 24 Hours (Table) 10/23/23 10/23/23 Range/Units 04:18 04:18 Hgb 9.7 L (11.4-16.0) gm/dL MCH 23.5 L (25.0-35.0) pg MCHC 28.4 L (31.0-37.0) g/dL RDW 18.0 H (11.5-15.5) % Lymphocytes # 0.8 L (1.0-4.8) k/uL Potassium 5.3 H (3.5-5.1) mmol/L Chloride 116 H (98-107) mmol/L Carbon Dioxide 18 L (22-30) mmol/L BUN 95 H (7-17) mg/dL Creatinine 4.49 H (0.52-1.04) mg/dL Assessment and Plan Assessment: 1. ANGUS, cardiorenal, nonoliguric. U/A in may showed 3+ prtn. UPCR 2.4, W/U showed THANH 1: 80 and elevated kappa and lambda chains but ratio not significantly elevated. USS in May 2023 showed no obstruction, Left kidney not seen due to bowel gas pattern and body habitus. 2. CKD progressively worsening. 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 UPCR 2.4, W/U showed THANH 1: 80 and elevated kappa and lambda chains but ratio not significantly elevated. Ideally a kidney bx should be performed. Will obtain hematology evaluation as well. 3. Volume overload. 4. Acute on chronic diastolic CHF, EF 50-55% in April 2023 Plan: Continue with Lasix drip. Decrease dose Repeat labs in a.m. Continue to avoid nephrotoxic agents Await 24-hour urine collection for free light chains.
[2023-10-24] MEDS: FUROSEMIDE 100 MG in SODIUM CHLORIDE 0.9% 90 ML IV SCH ×2 (00:07→18:27)
--- NOTE | 2023-10-24 04:34 | HP ---
HISTORY AND PHYSICAL CHIEF COMPLAINT: Shortness of breath and mental status changes with semicoma. HISTORY OF PRESENT ILLNESS: This is another admission for this morbidly obese 48-year-old female. She has a long-standing history of acute on chronic congestive heart failure with morbid obesity, Pickwickian syndrome, and renal failure. She has been being maintained at home, fairly well with the daughter. Review of systems, past medical history, family history personal and social histories were not obtainable. MEDICATIONS: She is not entirely clear what medication she has been on at home. PHYSICAL EXAMINATION: VITAL SIGNS: Blood pressure 148/102. HEAD, EARS, EYES, NOSE, MOUTH AND THROAT: Normal. CHEST: Breath shortness breath sounds are heard bilaterally. CARDIAC: Demonstrated regular rate and rhythm. ABDOMEN: Grossly protuberant. EXTREMITIES: Massively edematous. NEUROLOGICAL: She was lethargic. IMPRESSION: 1. Lethargy. 2. Acute on chronic congestive heart failure. 3. CO2 retention or hypercarbia. PLAN: 1. Bedrest. 2. IV fluids. 3. Manage congestive heart failure. 4. Pulmonology consult. 5. Respiratory support to drive down carbon dioxide. MMODL / IJN: [id number] /
--- NOTE | 2023-10-24 05:25 | PN ---
PROGRESS NOTE DATE OF SERVICE: 10/23/2023 CHIEF COMPLAINT: Lethargy. HISTORY OF PRESENT ILLNESS: This lady is doing much better. She is fully awake and alert, now that her hypercarbia has been controlled. She denies any chest pain, abdominal pain, nausea, vomiting, etc. PHYSICAL EXAMINATION: VITAL SIGNS: Normal. CHEST: Clear. CARDIAC: Sounds like sinus rhythm. ABDOMEN: Massively obese. IMPRESSION: 1. Mental status changes. 2. CO2 retention or hypercarbia. 3. Morbid obesity. 4. Congestive heart failure. 5. Pickwickian syndrome. 6. Renal failure. PLAN: 1. Continue with ICU management. 2. Her renal function is critical and she is being followed by Nephrology. MMODL / IJN: [id number] /
--- NOTE | 2023-10-24 06:51 | PN ---
PROGRESS NOTE DATE OF SERVICE: 10/21/2023 CHIEF COMPLAINT: Congestive heart failure and hypercarbia. HISTORY OF PRESENT ILLNESS: This lady is improved. She is less lethargic. She is on BiPAP. PHYSICAL EXAMINATION: CHEST: Breath sounds are heard bilaterally. CARDIAC: Normal. ABDOMEN: Unchanged. VITAL SIGNS: Blood pressure is 148/102. is 13. IMPRESSION: 1. Acute respiratory failure. 2. Hypercarbia. 3. Acute on chronic congestive heart failure. 4. Obesity. 5. Chronic kidney disease. PLAN: Continue to follow with Pulmonology, Cardiology and Nephrology. MMODL / IJN: [id number] /
--- NOTE | 2023-10-24 06:55 | PN ---
PROGRESS NOTE DATE OF SERVICE: 10/22/2023 CHIEF COMPLAINT: Acute on chronic congestive heart failure, Pickwickian syndrome, and hypercarbia. HISTORY OF PRESENT ILLNESS: This lady is better. Now that her CO2 is down, she is more alert. She has no complaints. PHYSICAL EXAMINATION: CHEST: Breath sounds are heard bilaterally. CARDIAC: Normal. ABDOMEN: Protuberant. EXTREMITIES: Edematous. VITAL SIGNS: Normal. IMPRESSION: 1. Mental status changes due to hypercarbia and CO2 retention. 2. Acute on chronic congestive heart failure. 3. Morbid obesity. 4. Pickwickian syndrome. PLAN: Continue with ICU support. MMODL / IJN: [id number] /
--- NOTE | 2023-10-24 07:36 | P.PN ---
Subjective Progress Note Date: 10/24/23 PROGRESS NOTE The patient is a 48-year-old female with known history of chronic kidney disease, congestive heart failure, obstructive sleep apnea and morbid obesity who presented with symptoms of progressive dyspnea, change in mental status. She was somnolent yesterday and was transferred to the ICU. She is on the BiPAP, awake, alert and following commands. She is on IV heparin with good urinary output. She has no evidence of malignant arrhythmia. Hemodynamically she is stable. Her left ventricle systolic function has been preserved in the past. September 22: The patient continues to be on BiPAP. She is more sleepy this morning. According to the nursing staff she slept late. She was awake and alert earlier according to them appropriate. She continues to be in sinus mechanism and hemodynamically stable. She is on no vasopressor. She continues to be on IV Lasix drip with good urine output. September 23: The patient remained stable on the BiPAP. Hemodynamically stable. She has no evidence of atrial fibrillation or ventricular ectopic activity. Her urine output has been stable. She continues to be on IV Lasix drip. Her blood pressure has been stable. She is not requiring any vasopressor. Medications: IV Lasix drip 10 mg an hour, hydralazine 50 mg twice a day, isosorbide mon onitrate 30 mg daily, metoprolol succinate 100 mg daily, Eliquis 5 milligrams twice a day, Trulicity PHYSICAL EXAMINATION: Blood pressure 134/90 heart rate 64, on BiPAP LUNGS: Clear to auscultation anteriorly HEART: Regular rate and rhythm, S1, S2. No S3. No systolic murmur ABDOMEN: Soft, nontender, no organomegaly, obese EXTREMETIES: Trace edema LAB: Pending IMPRESSION: 1. Respiratory failure with hypoxemia and hypercapnia 2. CHF with preserved systolic function 3. Worsening chronic kidney disease 4. Morbid obesity 5. History of hypertension 6. Metabolic encephalopathy, improving 7. Obstructive sleep apnea 8. History of paroxysmal atrial fibrillation PLAN: 1. Continue IV Lasix 2. Continue to follow renal functions 3. Continue on present dose of hydralazine and metoprolol 4. If renal functions improve consider adding Farxiga Objective - Vital Signs Vital signs: Vital Signs Temp 98.0 F 10/24/23 04:00 Pulse 64 10/24/23 06:00 Resp 18 10/24/23 06:00 BP 134/90 10/24/23 06:00 Pulse Ox 94 L 10/24/23 06:00 FiO2 45 10/24/23 06:00 Intake & Output 10/23/23 10/24/23 10/24/23 18:59 06:59 18:59 Intake Total 1294.333 582.667 Output Total 1150 2175 Balance 144.333 -1592.333 Intake: IV 60 60 0.9 @ KVO 60 60 Intake, IV Titration 104.333 122.667 Amount Furosemide 100 mg In 104.333 62.667 Sodium Chloride 0.9% 90 ml @ 10 MG/HR 10 mls/hr IV .Q10H [facility] Rx#: [id number] Sodium Ferric Gluconat- 60 Sucrose 125 mg In Sodium Chloride 0.9% 100 ml @ 100 mls/hr IVPB DAILY [facility] Rx#:[id number] Oral 1130 400 Output: Urine 1150 2175 Other: Voiding Method Indwelling Catheter Indwelling Catheter # Bowel Movements 1 - Labs CBC & Chem 7: 10/23/23 04:18 10/23/23 04:18
--- NOTE | 2023-10-24 08:06 | XR ---
EXAMINATION TYPE: XR chest 1V portable DATE OF EXAM: 10/24/2023 Comparison: 10/23/2023 Clinical History: 48-year-old female shortness of breath Findings: Limited by portable technique and very large patient body habitus. Further limitation due to leftward patient rotation. Heart appears moderately enlarged. Diffuse interstitial and patchy opacities espec ially in the mid and lower lungs persists. Impression: Limited by portable technique, large body habitus, and leftward patient rotation. Suspect relatively similar exam with moderate cardiomegaly and interstitial and patchy opacities especially in the mid a nd lower lungs.
[2023-10-24] MEDS: PANTOPRAZOLE 40 MG TABLET PO SCH (08:57)
[2023-10-24] MEDS: METOPROLOL SUCCINATE (ER) 100 MG TAB.ER.24H PO SCH (08:57)
[2023-10-24] MEDS: ISOSORBIDE MONONITRATE ER 30 MG TAB.ER.24H PO SCH (08:57)
[2023-10-24] MEDS: FOLIC ACID 1 MG TAB PO SCH (08:57)
[2023-10-24] MEDS: hydrALAZINE HCL 50 MG TAB PO SCH ×2 (08:57→20:32)
[2023-10-24] MEDS: APIXABAN 5 MG TAB PO SCH ×2 (08:57→20:32)
[2023-10-24] MEDS: SODIUM FERRIC GLUCONAT-SUCROSE 125 MG in SODIUM CHLORIDE 0.9% 100 ML IVPB SCH (08:57)
[2023-10-24] MEDS: ACETAMINOPHEN TAB 325 MG TAB PO PRN (10:55)
--- NOTE | 2023-10-24 11:02 | P.PN ---
Subjective Patient is seen for follow-up for acute kidney injury and volume overload. Currently maintained on Lasix drip at 5 mg an hour. Urine output 100 to 200 cc/h. Patient is back on BiPAP. Serum creatinine at 4.49 yesterday. Labs are pending from today. Objective - Vital Signs Vital signs: Vital Signs Temp 98.0 F 10/24/23 04:00 Pulse 64 10/24/23 10:00 Resp 14 10/24/23 10:00 BP 134/86 10/24/23 10:00 Pulse Ox 98 10/24/23 10:00 FiO2 45 10/24/23 10:00 Intake & Output 10/23/23 10/24/23 10/24/23 18:59 06:59 18:59 Intake Total 1294.333 582.667 115 Output Total 1150 2175 575 Balance 144.333 -1592.333 -460 Intake: IV 60 60 15 0.9 @ KVO 60 60 15 Intake, IV Titration 104.333 122.667 100 Amount Furosemide 100 mg In 104.333 62.667 Sodium Chloride 0.9% 90 ml @ 10 MG/HR 10 mls/hr IV .Q10H [facility] Rx#: [id number] Sodium Ferric Gluconat- 60 100 Sucrose 125 mg In Sodium Chloride 0.9% 100 ml @ 100 mls/hr IVPB DAILY [facility] Rx#:[id number] Oral 1130 400 Output: Urine 1150 2175 575 Other: Voiding Method Indwelling Catheter Indwelling Catheter Indwelling Catheter # Bowel Movements 1 - Exam Patient is awake, comfortable, on BiPAP Examination of the heart S1 and S2 Examination of the lungs decreased breath sounds at the bases Abdomen is soft morbidly obese Examination of lower extremities with chronic edema 2-3+ bilaterally [employer]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 - Labs CBC & Chem 7: 10/23/23 04:18 10/23/23 04:18 Assessment and Plan Assessment: 1. ANGUS, cardiorenal, nonoliguric. U/A in may showed 3+ prtn. UPCR 2.4, W/U showed THANH 1: 80 and elevated kappa and lambda chains but ratio not significantly elevated. USS in May 2023 showed no obstruction, Left kidney not seen due to bowel gas pattern and body habitus. 2. CKD progressively worsening. 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 UPCR 2.4, W/U showed THANH 1: 80 and elevated kappa and lambda chains but ratio not significantly elevated. Ideally a kidney bx should be performed. Will obtain hematology evaluation as well. 3. Volume overload. 4. Acute on chronic diastolic CHF, EF 50-55% in April 2023 5. Morbid obesity 6. Acute hypercapnic and hypoxic respiratory failure Plan: Continue with Lasix drip at 5 mg an hour. Follow-up on labs from today and adjust diuretics as needed. Repeat labs in a.m. Continue to avoid nephrotoxic agents Await 24-hour urine collection for free light chains.
--- NOTE | 2023-10-24 16:30 | P.PN ---
Subjective Progress Note Date: 10/24/23 Principal diagnosis: Acute on chronic hypoxic and hypercapnic respiratory failure This is a 48-year-old -[place] female, known history of congestive heart failure hypertension more than obesity obstructive sleep apnea syndrome, chronic hypoxic respiratory failure, previous ventilator dependent respiratory failure, chronic kidney disease stage IV, left upper extremity lymphedema, anemia, frequent episodes of urinary tract infections, multiple previous admissions with congestive heart failure and hypoxic and hypercapnic respiratory failure. Patient was admitted today with chief complaint of shortness of breath, and increased lower extremity swelling. Upon my evaluation, patient was noted to be on BiPAP, lethargic, opens eyes to verbal stimuli, and her chest x-ray clearly showed evidence of pulmonary edema. ABG on admission showed a pO2 of 82 pCO2 60 pH of 7.18. Her labs clearly showed evidence of worsening renal failure with a BUN of 88 creatinine 4.23, hence I suggested starting the patient on IV Lasix drip, and I also suggested admitting the patient to the ICU since her overall pulmonary status seems to be marginal at best. Her BNP level was over 10,000. And troponin level was elevated at around 0.060. Previous echocardiogram on this patient showed preserved systolic function with ejection fraction of 50-55% labs today showed WBC count 6.1 hemoglobin 11.2. Sodium 144 potassium 4.6 bicarb is 20 BUN is 88 creatinine 4.23 Patient evaluated today on 10/23/2022, I saw this patient yesterday in consultation, and I transferred the patient to the ICU. Patient was in acute on chronic diastolic congestive heart failure, I started the patient on Lasix drip at 10 mg/h, she was kept on BiPAP 16/6/35%, and reevaluated today, seems to be definitely more awake, more responsive compared to yesterday, patient is feeling better, and she has had significant urine output since admission. Patient has been in negative fluid balance almost a liter and a half over the last 12 hours. Yesterday we had difficulty placing a Colon catheter, however the nurses were finally successful in placing 1, and seems to be draining well and functional. Right now patient has a urine output of 100 up to 170 cc/h on the Lasix drip. She was seen by nephrology in consultation and felt to have acute kidney injury, cardiorenal nonoliguric, and the recommendation was to continue Lasix drip WBC count today is 5.5 hemoglobin is 10.1. Basic metabolic profile is normal bicarb is 21 BUN is 91 creatinine 4.03. Patient was reevaluated today on 10/23/2023, remains on Lasix drip, remains in negative balance, feeling better, and she is now on BiPAP 16/6/35%. Patient is about -4 L/fluid balance. Her creatinine is a bit high at 4.49 today. Labs this morning showed WBC count of 5.6 hemoglobin 9.7 sodium 145 potassium 5.3 bicarb is 18 BUN 95 creatinine 4.49, patient is being followed by nephrology and she is also being followed by cardiology. Clinically there is some improvement, but nonetheless patient continues to be marginal at best. Clearly the patient has congestive heart failure with preserved systolic function. And she had similar presentations in the past her mentation seems to be improving, and her metabolic encephalopathy is getting better. Patient was reevaluated today on 10/24/2023, remains on Lasix drip however it was cut down to 5 mg/h. Urine output ranging between 100 to 200 cc/h, patient is intermittently on BiPAP, and her creatinine is pending today. Yesterday creatinine was 4.49. Chest x-ray is showing improvement in her pulmonary edema clinically the patient is feeling better. Patient declined having labs drawn today. Objective - Vital Signs Vital signs: Vital Signs Temp 97.9 F 10/24/23 12:00 Pulse 71 10/24/23 15:00 Resp 12 10/24/23 15:00 BP 134/83 10/24/23 15:00 Pulse Ox 95 10/24/23 15:00 FiO2 45 10/24/23 10:00 Intake & Output 10/23/23 10/24/23 10/24/23 18:59 06:59 18:59 Intake Total 1294.333 582.667 395 Output Total 1150 2175 1420 Balance 144.333 -1592.333 -1025 Intake: IV 60 60 45 0.9 @ KVO 60 60 45 Intake, IV Titration 104.333 122.667 100 Amount Furosemide 100 mg In 104.333 62.667 Sodium Chloride 0.9% 90 ml @ 10 MG/HR 10 mls/hr IV .Q10H [facility] Rx#: [id number] Sodium Ferric Gluconat- 60 100 Sucrose 125 mg In Sodium Chloride 0.9% 100 ml @ 100 mls/hr IVPB DAILY [facility] Rx#:[id number] Oral 1130 400 250 Output: Urine 1150 2175 1420 Other: Voiding Method Indwelling Catheter Indwelling Catheter Indwelling Catheter # Bowel Movements 1 - Exam Physical Exam: Revealed a 48-year-old female, obese, on BiPAP, not in distress. Head: Atraumatic, normocephalic. HEENT: Short obese neck. [Neck is supple.] [No neck masses.] [No thyromegaly.] [No JVD.] Chest: Crackles persist at the bases bilaterally. No rhonchi no wheezes. Cardiac Exam: Distant S1 and S2, no S3 gallop. Abdomen: [Morbidly obese, Soft, nontender, no megaly, no rebound, no guarding, normal bowel sounds.] Extremities: [No clubbing, 1+ bipedal edema, no cyanosis.] Neurological Exam: Arousable, seems to be alert and oriented, follows simple instructions. But generally weak. Psychiatric: Flat affect, normal mental status, follows instructions - Labs CBC & Chem 7: 10/23/23 04:18 10/23/23 04:18 Assessment and Plan Assessment: Impression: Acute on chronic hypoxic and hypercapnic respiratory failure Acute on chronic diastolic congestive heart failure Morbid obesity, BMI over 75 Acute on chronic kidney disease Acute metabolic encephalopathy Paroxysmal atrial fibrillation Obesity/hypoventilation syndrome Obstructive sleep apnea syndrome, not on CPAP or BiPAP History of DVT. Acute on chronic kidney disease Benign essential hypertension History of respiratory failure requiring intubation and mechanical ventilation Anemia of chronic disease Chronic left upper extremity lymphedema recommendation: Continue to monitor in the ICU Continue Lasix drip at 5 mg/h Continue BiPAP alternate with nasal cannula Continue eliquis GI and DVT prophylaxis Strict I's and does while in the ICU Patient refused having labs drawn this morning We will continue to follow. Prognosis is guarded Time with Patient: Less than 30
[2023-10-24 22:02] LABS: Potassium 3.9 mmol/L (3.5-5.1)
[2023-10-24 22:03] LABS: African American GFR (CKD) 13 (>60 ml/min/1.73 sqM); Anion Gap 9 mmol/L; Blood Urea Nitrogen 88 mg/dL (7-17); Calcium 8.6 mg/dL (8.4-10.2); Carbon Dioxide 26 mmol/L (22-30); Chloride 108 mmol/L (98-107); Glucose 109 mg/dL (74-99); Non-African American GFR(CKD) 12 (>60 ml/min/1.73 sqM); Sodium 143 mmol/L (137-145)
[2023-10-25 04:56] LABS: Anisocytosis Slight; HCT 32.8 % (34.0-46.0); HGB 9.6 gm/dL (11.4-16.0); Hypochromasia Marked; MCH 23.6 pg (25.0-35.0); MCHC 29.2 g/dL (31.0-37.0); MCV 80.9 fL (80.0-100.0); Mean Platelet Volume 9.5; Microcytosis Slight; Platelet Count 129 k/uL (150-450); Poikilocytosis Slight; RBC 4.05 m/uL (3.80-5.40); RDW 18.1 % (11.5-15.5)
[2023-10-25 05:07] LABS: ALT 11 U/L (4-34); African American GFR (CKD) 15 (>60 ml/min/1.73 sqM); Albumin 3.4 g/dL (3.5-5.0); Anion Gap 5 mmol/L; Blood Urea Nitrogen 92 mg/dL (7-17); Calcium 8.8 mg/dL (8.4-10.2); Carbon Dioxide 26 mmol/L (22-30); Chloride 112 mmol/L (98-107); Glucose 88 mg/dL (74-99); Non-African American GFR(CKD) 13 (>60 ml/min/1.73 sqM); Sodium 143 mmol/L (137-145); Total Bilirubin 0.7 mg/dL (0.2-1.3); Total Protein 7.1 g/dL (6.3-8.2)
[2023-10-25 05:12] LABS: AST 30 U/L (14-36); Alkaline Phosphatase 48 U/L (38-126); Potassium 4.3 mmol/L (3.5-5.1)
[2023-10-25 07:20] LABS: Anisocytosis (M) Present; Eosinophils # (M) 0.09 k/uL (0-0.7); Lymphocytes # (M) 1.15 k/uL (1.0-4.8); Monocytes # (M) 0.09 k/uL (0-1.0); Neutrophils # (M) 3.27 k/uL (1.3-7.7); Neutrophils % (M) 71 %; Nucleated Red Blood Cells 3 /100 WBC (0-0); Ovalocytes Present; Polychromasia Present; Target Cells Present; Tear Drop Cells Present; Total Cells Counted 200; WBC 4.6 k/uL (3.8-10.6)
--- NOTE | 2023-10-25 07:49 | P.PN ---
Subjective Progress Note Date: 10/25/23 PROGRESS NOTE The patient is a 48-year-old female with known history of chronic kidney disease, congestive heart failure, obstructive sleep apnea and morbid obesity who presented with symptoms of progressive dyspnea, change in mental status. She was somnolent yesterday and was transferred to the ICU. She is on the BiPAP, awake, alert and following commands. She is on IV heparin with good urinary output. She has no evidence of malignant arrhythmia. Hemodynamically she is stable. Her left ventricle systolic function has been preserved in the past. October 23: The patient continues to be on BiPAP. She is more sleepy this morning. According to the nursing staff she slept late. She was awake and alert earlier according to them appropriate. She continues to be in sinus mechanism and hemodynamically stable. She is on no vasopressor. She continues to be on IV Lasix drip with good urine output. October 24: The patient remained stable on the BiPAP. Hemodynamically stable. She has no evidence of atrial fibrillation or ventricular ectopic activity. Her urine output has been stable. She continues to be on IV Lasix drip. Her blood pressure has been stable. She is not requiring any vasopressor. October 25: She is more awake and alert today, denies any chest discomfort, dizziness or palpitations. She continues to be on the IV Lasix drip. She is on nasal cannula. She denies any nausea or vomiting. Hemodynamically she is stable. Medications: IV Lasix drip 10 mg an hour, hydralazine 50 mg twice a day, isosorbide mononitrate 30 mg daily, metoprolol succinate 100 mg daily, Eliquis 5 milligrams twice a day, Trulicity PHYSICAL EXAMINATION: Blood pressure 129/83 heart rate 57 LUNGS: Clear to auscultation anteriorly HEART: Regular rate and rhythm, S1, S2. No S3. No systolic murmur ABDOMEN: Soft, nontender, no organomegaly, obese EXTREMETIES: Trace edema LAB: Hemoglobin 9.6, BUN 92, creatinine 3.92. IMPRESSION: 1. Respiratory failure with hypoxemia and hypercapnia, improving 2. CHF with preserved systolic function 3. Chronic kidney disease 4. Morbid obesity 5. History of hypertension 6. Metabolic encephalopathy, resolved 7. Obstructive sleep apnea 8. History of paroxysmal atrial fibrillation PLAN: 1. Follow renal functions and if GFR improves add Farxiga 2. Increase physical activity 3. Depending on her progress further recommendations will be made Objective - Vital Signs Vital signs: Vital Signs Temp 97.3 F L 10/25/23 04:00 Pulse 57 L 10/25/23 07:00 Resp 18 10/25/23 07:00 BP 129/83 10/25/23 07:00 Pulse Ox 94 L 10/25/23 07:00 FiO2 45 10/25/23 04:34 Intake & Output 10/24/23 10/25/23 10/25/23 18:59 06:59 18:59 Intake Total 751.667 60 5 Output Total 1840 2155 135 Balance -1088.333 -2095 -130 Intake: IV 60 60 5 0.9 @ KVO 60 60 5 Intake, IV Titration 191.667 Amount Furosemide 100 mg In 91.667 Sodium Chloride 0.9% 90 ml @ 5 MG/HR 5 mls/hr IV .Q20H [facility] Rx#:[id number] Sodium Ferric Gluconat- 100 Sucrose 125 mg In Sodium Chloride 0.9% 100 ml @ 100 mls/hr IVPB DAILY [facility] Rx#:[id number] Oral 500 Output: Urine 1840 2155 135 Other: Voiding Method Indwelling Catheter Indwelling Catheter - Labs CBC & Chem 7: 10/25/23 04:29 10/25/23 04:29 Labs: Abnormal Lab Results - Last 24 Hours (Table) 10/24/23 10/25/23 10/25/23 Range/Units 21:27 04:29 04:29 Hgb 9.6 L (11.4-16.0) gm/dL Hct 32.8 L (34.0-46.0) % MCH 23.6 L (25.0-35.0) pg MCHC 29.2 L (31.0-37.0) g/dL RDW 18.1 H (11.5-15.5) % Plt Count 129 L (150-450) k/uL Nucleated RBCs 3 H (0-0) /100 WBC Chloride 108 H 112 H (98-107) mmol/L BUN 88 H 92 H (7-17) mg/dL Creatinine 4.23 H 3.92 H (0.52-1.04) mg/dL Glucose 109 H (74-99) mg/dL Albumin 3.4 L (3.5-5.0) g/dL
[2023-10-25 08:02] LABS: Gamma Globulin 2.19 g/dL (0.70-1.50)
[2023-10-25] MEDS: hydrALAZINE HCL 50 MG TAB PO SCH ×2 (08:37→21:38)
[2023-10-25] MEDS: APIXABAN 5 MG TAB PO SCH ×2 (08:37→21:39)
[2023-10-25] MEDS: ISOSORBIDE MONONITRATE ER 30 MG TAB.ER.24H PO SCH (08:38)
[2023-10-25] MEDS: PANTOPRAZOLE 40 MG TABLET PO SCH (08:38)
[2023-10-25] MEDS: METOPROLOL SUCCINATE (ER) 100 MG TAB.ER.24H PO SCH (08:38)
[2023-10-25] MEDS: FOLIC ACID 1 MG TAB PO SCH (08:38)
--- NOTE | 2023-10-25 08:39 | XR ---
EXAMINATION TYPE: XR chest 1V portable DATE OF EXAM: 10/25/2023 Comparison: 10/24/2023 Clinical History: 48-year-old female shortness of breath Findings: Limited by large body habitus and portable technique. Heart remains moderately enlarged. Ongoing neto hilar opacity. Patchy and confluent airspace opacity remains in the mid and lower lungs. Left base un derpenetrated and limited in assessment. Background interstitial prominence. Impression: Stable exam with moderate cardiomegaly and perihilar as well as mid and lower lung airspace disease.
[2023-10-25] MEDS: FUROSEMIDE 100 MG in SODIUM CHLORIDE 0.9% 90 ML IV SCH (08:44)
[2023-10-25] MEDS: SODIUM FERRIC GLUCONAT-SUCROSE 125 MG in SODIUM CHLORIDE 0.9% 100 ML IVPB SCH (09:19)
[2023-10-25 10:54] VITALS: BMI 76.5
[2023-10-25] MEDS ORDERED: FUROSEMIDE 10 MG/ML 10 ML VIAL IV STA (12:13)
--- NOTE | 2023-10-25 15:19 | P.PN ---
Subjective Progress Note Date: 10/25/23 Principal diagnosis: Acute on chronic hypoxic and hypercapnic respiratory failure This is a 48-year-old -[place] female, known history of congestive heart failure hypertension more than obesity obstructive sleep apnea syndrome, chronic hypoxic respiratory failure, previous ventilator dependent respiratory failure, chronic kidney disease stage IV, left upper extremity lymphedema, anemia, frequent episodes of urinary tract infections, multiple previous admissions with congestive heart failure and hypoxic and hypercapnic respiratory failure. Patient was admitted today with chief complaint of shortness of breath, and increased lower extremity swelling. Upon my evaluation, patient was noted to be on BiPAP, lethargic, opens eyes to verbal stimuli, and her chest x-ray clearly showed evidence of pulmonary edema. ABG on admission showed a pO2 of 82 pCO2 60 pH of 7.18. Her labs clearly showed evidence of worsening renal failure with a BUN of 88 creatinine 4.23, hence I suggested starting the patient on IV Lasix drip, and I also suggested admitting the patient to the ICU since her overall pulmonary status seems to be marginal at best. Her BNP level was over 10,000. And troponin level was elevated at around 0.060. Previous echocardiogram on this patient showed preserved systolic function with ejection fraction of 50-55% labs today showed WBC count 6.1 hemoglobin 11.2. Sodium 144 potassium 4.6 bicarb is 20 BUN is 88 creatinine 4.23 Patient evaluated today on 10/23/2022, I saw this patient yesterday in consultation, and I transferred the patient to the ICU. Patient was in acute on chronic diastolic congestive heart failure, I started the patient on Lasix drip at 10 mg/h, she was kept on BiPAP 16/6/35%, and reevaluated today, seems to be definitely more awake, more responsive compared to yesterday, patient is feeling better, and she has had significant urine output since admission. Patient has been in negative fluid balance almost a liter and a half over the last 12 hours. Yesterday we had difficulty placing a Colon catheter, however the nurses were finally successful in placing 1, and seems to be draining well and functional. Right now patient has a urine output of 100 up to 170 cc/h on the Lasix drip. She was seen by nephrology in consultation and felt to have acute kidney injury, cardiorenal nonoliguric, and the recommendation was to continue Lasix drip WBC count today is 5.5 hemoglobin is 10.1. Basic metabolic profile is normal bicarb is 21 BUN is 91 creatinine 4.03. Patient was reevaluated today on 10/23/2023, remains on Lasix drip, remains in negative balance, feeling better, and she is now on BiPAP 16/6/35%. Patient is about -4 L/fluid balance. Her creatinine is a bit high at 4.49 today. Labs this morning showed WBC count of 5.6 hemoglobin 9.7 sodium 145 potassium 5.3 bicarb is 18 BUN 95 creatinine 4.49, patient is being followed by nephrology and she is also being followed by cardiology. Clinically there is some improvement, but nonetheless patient continues to be marginal at best. Clearly the patient has congestive heart failure with preserved systolic function. And she had similar presentations in the past her mentation seems to be improving, and her metabolic encephalopathy is getting better. Patient was reevaluated today on 10/24/2023, remains on Lasix drip however it was cut down to 5 mg/h. Urine output ranging between 100 to 200 cc/h, patient is intermittently on BiPAP, and her creatinine is pending today. Yesterday creatinine was 4.49. Chest x-ray is showing improvement in her pulmonary edema clinically the patient is feeling better. Patient declined having labs drawn today. Patient was reevaluated today on 10/19/2023, remains in the ICU, remains on Lasix drip at 5 mg/h, remains in negative fluid balance, patient is -5 L in the last 48 hours. She is now on nasal cannula at 3 L, not in any distress, intermittently on BiPAP 16/6/45%. Today I am planning to discontinue Lasix infusion, and give the patient Lasix 80 mg IV push twice daily and will likely transfer the patient to a cardiac floor today 3 S. WBC is 4.6 hemoglobin 9.6. Basic metabolic profile is normal BUN is 92 creatinine down to 3.92. Nephrology is entertaining the possibility of kidney biopsy for further evaluation of her abnormal labs including elevated THANH, elevated kappa and lambda chains but the ratio does not seem to be significantly elevated. And hands nephrology is considering kidney biopsy Objective - Vital Signs Vital signs: Vital Signs Temp 98 F 10/25/23 08:00 Pulse 68 10/25/23 14:00 Resp 15 10/25/23 14:00 BP 123/79 10/25/23 14:00 Pulse Ox 96 10/25/23 14:00 FiO2 45 10/25/23 04:34 Intake & Output 10/24/23 10/25/23 10/25/23 18:59 06:59 18:59 Intake Total 751.667 60 335 Output Total 1840 2155 1035 Balance -1088.333 -2095 -700 Weight 221.724 kg Intake: IV 60 60 35 0.9 @ KVO 60 60 35 Intake, IV Titration 191.667 Amount Furosemide 100 mg In 91.667 Sodium Chloride 0.9% 90 ml @ 5 MG/HR 5 mls/hr IV .Q20H [facility] Rx#:[id number] Sodium Ferric Gluconat- 100 Sucrose 125 mg In Sodium Chloride 0.9% 100 ml @ 100 mls/hr IVPB DAILY [facility] Rx#:[id number] Oral 500 300 Output: Urine 1840 2155 1035 Other: Voiding Method Indwelling Catheter Indwelling Catheter Indwelling Catheter - Exam Physical Exam: Revealed a 48-year-old female, obese, on 3 L nasal cannula, asymptomatic Head: Atraumatic, normocephalic. HEENT: Short obese neck. [Neck is supple.] [No neck masses.] [No thyromegaly.] [No JVD.] Chest: Minich breath sounds and crackles at the bases Cardiac Exam: Distant S1 and S2, no S3 gallop. Abdomen: [Morbidly obese, Soft, nontender, no megaly, no rebound, no guarding, normal bowel sounds.] Extremities: [No clubbing, trace bipedal edema, no cyanosis.] Neurological Exam: Arousable, seems to be alert and oriented, follows simple instructions. But generally weak. Psychiatric: Flat affect, normal mental status, follows instructions - Labs CBC & Chem 7: 10/25/23 04:29 10/25/23 04:29 Labs: Abnormal Lab Results - Last 24 Hours (Table) 10/21/23 10/24/23 10/25/23 Range/Units 06:29 21:27 04:29 Hgb (11.4-16.0) gm/dL Hct (34.0-46.0) % MCH (25.0-35.0) pg MCHC (31.0-37.0) g/dL RDW (11.5-15.5) % Plt Count (150-450) k/uL Nucleated RBCs (0-0) /100 WBC Chloride 108 H 112 H (98-107) mmol/L BUN 88 H 92 H (7-17) mg/dL Creatinine 4.23 H 3.92 H (0.52-1.04) mg/dL Glucose 109 H (74-99) mg/dL Albumin 3.4 L (3.5-5.0) g/dL Gamma Globulins 2.19 H (0.70-1.50) g/dL 10/25/23 Range/Units 04:29 Hgb 9.6 L (11.4-16.0) gm/dL Hct 32.8 L (34.0-46.0) % MCH 23.6 L (25.0-35.0) pg MCHC 29.2 L (31.0-37.0) g/dL RDW 18.1 H (11.5-15.5) % Plt Count 129 L (150-450) k/uL Nucleated RBCs 3 H (0-0) /100 WBC Chloride (98-107) mmol/L BUN (7-17) mg/dL Creatinine (0.52-1.04) mg/dL Glucose (74-99) mg/dL Albumin (3.5-5.0) g/dL Gamma Globulins (0.70-1.50) g/dL Assessment and Plan Assessment: Impression: Acute on chronic hypoxic and hypercapnic respiratory failure Acute on chronic diastolic congestive heart failure Morbid obesity, BMI over 75 Acute on chronic kidney disease Acute metabolic encephalopathy Paroxysmal atrial fibrillation Obesity/hypoventilation syndrome Obstructive sleep apnea syndrome, not on CPAP or BiPAP History of DVT. Acute on chronic kidney disease Benign essential hypertension History of respiratory failure requiring intubation and mechanical ventilation Anemia of chronic disease Chronic left upper extremity lymphedema recommendation: Discontinue Lasix drip Start patient on Lasix 80 mg IV push twice daily Transfer patient to a monitored bed and selective Continue BiPAP alternate with nasal cannula Continue eliquis GI and DVT prophylaxis Continue to monitor I's and O's Nephrology is considering kidney biopsy We will continue to follow. Prognosis is guarded Time with Patient: Less than 30
--- NOTE | 2023-10-25 18:57 | P.PN ---
Subjective Patient is seen for follow-up for acute kidney injury and volume overload. Currently being diuresed. Lasix drip was discontinued this morning. Urine output 3.9 L per 24 hours.. Patient is off of BiPAP. Serum creatinine decreased to 3.9 today. Objective - Vital Signs Vital signs: Vital Signs Temp 98 F 10/25/23 16:00 Pulse 75 10/25/23 18:00 Resp 18 10/25/23 18:00 BP 142/84 10/25/23 18:00 Pulse Ox 95 10/25/23 17:00 FiO2 45 10/25/23 04:34 Intake & Output 10/24/23 10/25/23 10/25/23 18:59 06:59 18:59 Intake Total 751.667 60 955 Output Total 1839 2154 2034 Balance -1088.333 -6807 -9338 Weight 221.724 kg Intake: IV 60 60 55 0.9 @ KVO 60 60 55 Intake, IV Titration 191.667 Amount Furosemide 100 mg In 91.667 Sodium Chloride 0.9% 90 ml @ 5 MG/HR 5 mls/hr IV .Q20H [facility] Rx#:[id number] Sodium Ferric Gluconat- 100 Sucrose 125 mg In Sodium Chloride 0.9% 100 ml @ 100 mls/hr IVPB DAILY [facility] Rx#:[id number] Oral 500 900 Output: Urine 1839 2154 2034 Other: Voiding Method Indwelling Catheter Indwelling Catheter Indwelling Catheter - Exam Patient is awake, comfortable Alert oriented x 3 Examination of the heart S1 and S2 Examination of the lungs decreased breath sounds at the bases Abdomen is soft morbidly obese Examination of lower extremities with chronic edema 2-3+ bilaterally [employer] exam grossly intact. - Labs CBC & Chem 7: 10/25/23 04:29 10/25/23 04:29 Labs: Abnormal Lab Results - Last 24 Hours (Table) 10/21/23 10/24/23 10/25/23 Range/Units 06:29 21:27 04:29 Hgb (11.4-16.0) gm/dL Hct (34.0-46.0) % MCH (25.0-35.0) pg MCHC (31.0-37.0) g/dL RDW (11.5-15.5) % Plt Count (150-450) k/uL Nucleated RBCs (0-0) /100 WBC Chloride 108 H 112 H (98-107) mmol/L BUN 88 H 92 H (7-17) mg/dL Creatinine 4.23 H 3.92 H (0.52-1.04) mg/dL Glucose 109 H (74-99) mg/dL Albumin 3.4 L (3.5-5.0) g/dL Gamma Globulins 2.19 H (0.70-1.50) g/dL 10/25/23 Range/Units 04:29 Hgb 9.6 L (11.4-16.0) gm/dL Hct 32.8 L (34.0-46.0) % MCH 23.6 L (25.0-35.0) pg MCHC 29.2 L (31.0-37.0) g/dL RDW 18.1 H (11.5-15.5) % Plt Count 129 L (150-450) k/uL Nucleated RBCs 3 H (0-0) /100 WBC Chloride (98-107) mmol/L BUN (7-17) mg/dL Creatinine (0.52-1.04) mg/dL Glucose (74-99) mg/dL Albumin (3.5-5.0) g/dL Gamma Globulins (0.70-1.50) g/dL Assessment and Plan Assessment: 1. ANGUS, cardiorenal, nonoliguric. U/A in may showed 3+ prtn. UPCR 2.4, W/U showed THANH 1: 80 and elevated kappa and lambda chains but ratio not significantly elevated. USS in May 2023 showed no obstruction, Left kidney not seen due to bowel gas pattern and body habitus. 2. CKD progressively worsening. 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 UPCR 2.4, W/U showed THANH 1: 80 and elevated kappa and lambda chains but ratio not significantly elevated. Ideally a kidney bx should be performed down the road. 3. Volume overload. Improving. 4. Acute on chronic diastolic CHF, EF 50-55% in April 2023 5. Morbid obesity 6. Acute hypercapnic and hypoxic respiratory failure Plan: Agree with switching to oral diuretics Repeat labs in a.m. Continue to avoid nephrotoxic agents
[2023-10-25] MEDS: FUROSEMIDE 10 MG/ML 10 ML VIAL IV SCH (21:39)
[2023-10-26 05:51] LABS: African American GFR (CKD) 17 (>60 ml/min/1.73 sqM); Anion Gap 5 mmol/L; Blood Urea Nitrogen 83 mg/dL (7-17); Calcium 8.8 mg/dL (8.4-10.2); Carbon Dioxide 28 mmol/L (22-30); Chloride 108 mmol/L (98-107); Glucose 83 mg/dL (74-99); Non-African American GFR(CKD) 15 (>60 ml/min/1.73 sqM); Potassium 3.8 mmol/L (3.5-5.1); Sodium 141 mmol/L (137-145)
--- NOTE | 2023-10-26 09:31 | PN ---
PROGRESS NOTE SUBJECTIVE: This is a 48-year-old lady with history of chronic renal failure, congestive heart failure, obstructive sleep apnea, moderate obesity who is admitted to ICU because of progressively worsening insomnolence. She is on BiPAP in the ICU, seems quite sleepy this morning. CURRENT MEDICATIONS: 1. Eliquis 5 b.i.d. 2. Lasix 80 mg q.12. 3. Hydralazine 50 b.i.d. 4. Imdur 30 daily. 5. Toprol 100 daily. OBJECTIVE: VITAL SIGNS: Heart rate is 60 beats per minute, blood pressure is 106/56, respiratory rate is 18. She is on a BiPAP with an O2 saturation of 95. CHEST: Reveals diminished air entry at the bases. HEART: Reveals first and second heart sounds. No gallop. EXTREMITIES: Reveals bilateral pitting edema. LABS: Showed hemoglobin of 9.6, platelet count is 129 from this morning. Potassium is 3.8, BUN is 83, creatinine is 3.39. ASSESSMENT: 1. Respiratory failure. 2. Diastolic heart failure. 3. Chronic renal insufficiency. 4. History of paroxysmal atrial fibrillation. 5. Morbid obesity. PLAN: Continue current medications. MMODL / IJN: [id number] /
[2023-10-26] MEDS: FUROSEMIDE 10 MG/ML 10 ML VIAL IV SCH ×2 (09:49→20:24)
[2023-10-26] MEDS: PANTOPRAZOLE 40 MG TABLET PO SCH (09:50)
[2023-10-26] MEDS: hydrALAZINE HCL 50 MG TAB PO SCH ×2 (09:50→20:23)
[2023-10-26] MEDS: ISOSORBIDE MONONITRATE ER 30 MG TAB.ER.24H PO SCH (09:50)
[2023-10-26] MEDS: FOLIC ACID 1 MG TAB PO SCH (09:50)
[2023-10-26] MEDS: APIXABAN 5 MG TAB PO SCH ×2 (09:50→20:23)
[2023-10-26] MEDS: METOPROLOL SUCCINATE (ER) 100 MG TAB.ER.24H PO SCH (09:50)
[2023-10-26] MEDS: ACETAMINOPHEN TAB 325 MG TAB PO PRN ×2 (11:08→20:23)
--- NOTE | 2023-10-26 11:14 | P.PN ---
Subjective Patient is seen for follow-up for acute kidney injury and volume overload. Currently being diuresed. Status post Lasix drip. Maintained on 80 mg IV every 12 hours now. Urine output 3.9 L per 24 hours.. Patient is off of BiPAP. Serum creatinine decreased to 3.39 today. Objective - Vital Signs Vital signs: Vital Signs Temp 97.4 F L 10/26/23 04:00 Pulse 61 10/26/23 04:00 Resp 14 10/26/23 04:00 BP 106/56 10/26/23 04:00 Pulse Ox 95 10/26/23 04:00 FiO2 45 10/26/23 08:43 Intake & Output 10/25/23 10/26/23 10/26/23 18:59 06:59 18:59 Intake Total 955 540 Output Total 2034 1874 Balance -1080 -1335 Weight 221.724 kg 216.931 kg Intake: IV 55 0.9 @ KVO 55 Oral 900 540 Output: Urine 2034 1874 Other: Voiding Method Indwelling Catheter Indwelling Catheter - Exam Patient is awake, comfortable Alert oriented x 3 Examination of the heart S1 and S2 Examination of the lungs decreased breath sounds at the bases Abdomen is soft morbidly obese Examination of lower extremities with chronic edema 2-3+ bilaterally 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 - Labs CBC & Chem 7: 10/25/23 04:29 10/26/23 05:23 Labs: Abnormal Lab Results - Last 24 Hours (Table) 10/26/23 Range/Units 05:23 Chloride 108 H (98-107) mmol/L BUN 83 H (7-17) mg/dL Creatinine 3.39 H (0.52-1.04) mg/dL Assessment and Plan Assessment: 1. ANGUS, cardiorenal, nonoliguric. U/A in may showed 3+ prtn. UPCR 2.4, W/U showed THANH 1: 80 and elevated kappa and lambda chains but ratio not significantly elevated. USS in May 2023 showed no obstruction, Left kidney not seen due to bowel gas pattern and body habitus. 2. CKD progressively worsening. 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 UPCR 2.4, W/U showed THANH 1: 80 and elevated kappa and lambda chains but ratio not signific antly elevated. Ideally a kidney bx should be performed down the road. 3. Volume overload. Improving. 4. Acute on chronic diastolic CHF, EF 50-55% in April 2023 5. Morbid obesity 6. Acute hypercapnic and hypoxic respiratory failure Plan: Continue oral Lasix. Repeat labs in a.m. Continue to avoid nephrotoxic agents
--- NOTE | 2023-10-26 13:29 | P.PN ---
Subjective Progress Note Date: 10/26/23 Principal diagnosis: Acute on chronic hypoxic and hypercapnic respiratory failure This is a 48-year-old -[place] female, known history of congestive heart failure hypertension more than obesity obstructive sleep apnea syndrome, chronic hypoxic respiratory failure, previous ventilator dependent respiratory failure, chronic kidney disease stage IV, left upper extremity lymphedema, anemia, frequent episodes of urinary tract infections, multiple previous admissions with congestive heart failure and hypoxic and hypercapnic respiratory failure. Patient was admitted today with chief complaint of shortness of breath, and increased lower extremity swelling. Upon my evaluation, patient was noted to be on BiPAP, lethargic, opens eyes to verbal stimuli, and her chest x-ray clearly showed evidence of pulmonary edema. ABG on admission showed a pO2 of 82 pCO2 60 pH of 7.18. Her labs clearly showed evidence of worsening renal failure with a BUN of 88 creatinine 4.23, hence I suggested starting the patient on IV Lasix drip, and I also suggested admitting the patient to the ICU since her overall pulmonary status seems to be marginal at best. Her BNP level was over 10,000. And troponin level was elevated at around 0.060. Previous echocardiogram on this patient showed preserved systolic function with ejection fraction of 50-55% labs today showed WBC count 6.1 hemoglobin 11.2. Sodium 144 potassium 4.6 bicarb is 20 BUN is 88 creatinine 4.23 Patient evaluated today on 10/23/2022, I saw this patient yesterday in consultation, and I transferred the patient to the ICU. Patient was in acute on chronic diastolic congestive heart failure, I started the patient on Lasix drip at 10 mg/h, she was kept on BiPAP 16/6/35%, and reevaluated today, seems to be definitely more awake, more responsive compared to yesterday, patient is feeling better, and she has had significant urine output since admission. Patient has been in negative fluid balance almost a liter and a half over the last 12 hours. Yesterday we had difficulty placing a Colon catheter, however the nurses were finally successful in placing 1, and seems to be draining well and functional. Right now patient has a urine output of 100 up to 170 cc/h on the Lasix drip. She was seen by nephrology in consultation and felt to have acute kidney injury, cardiorenal nonoliguric, and the recommendation was to continue Lasix drip WBC count today is 5.5 hemoglobin is 10.1. Basic metabolic profile is normal bicarb is 21 BUN is 91 creatinine 4.03. Patient was reevaluated today on 10/23/2023, remains on Lasix drip, remains in negative balance, feeling better, and she is now on BiPAP 16/6/35%. Patient is about -4 L/fluid balance. Her creatinine is a bit high at 4.49 today. Labs this morning showed WBC count of 5.6 hemoglobin 9.7 sodium 145 potassium 5.3 bicarb is 18 BUN 95 creatinine 4.49, patient is being followed by nephrology and she is also being followed by cardiology. Clinically there is some improvement, but nonetheless patient continues to be marginal at best. Clearly the patient has congestive heart failure with preserved systolic function. And she had similar presentations in the past her mentation seems to be improving, and her metabolic encephalopathy is getting better. Patient was reevaluated today on 10/24/2023, remains on Lasix drip however it was cut down to 5 mg/h. Urine output ranging between 100 to 200 cc/h, patient is intermittently on BiPAP, and her creatinine is pending today. Yesterday creatinine was 4.49. Chest x-ray is showing improvement in her pulmonary edema clinically the patient is feeling better. Patient declined having labs drawn today. Patient was reevaluated today on 10/25/2023, remains in the ICU, remains on Lasix drip at 5 mg/h, remains in negative fluid balance, patient is -5 L in the last 48 hours. She is now on nasal cannula at 3 L, not in any distress, intermittently on BiPAP 16/6/45%. Today I am planning to discontinue Lasix infusion, and give the patient Lasix 80 mg IV push twice daily and will likely transfer the patient to a cardiac floor today 3 S. WBC is 4.6 hemoglobin 9.6. Basic metabolic profile is normal BUN is 92 creatinine down to 3.92. Nephrology is entertaining the possibility of kidney biopsy for further evaluation of her abnormal labs including elevated THANH, elevated kappa and lambda chains but the ratio does not seem to be significantly elevated. And nephrology is considering kidney biopsy Patient was reevaluated today on 10/26/2023 patient remains in the ICU as an overflow, intermittently on BiPAP and alternating with nasal cannula, feeling much better, breathing easier, continues to have significant urine output 3.9 L over the last 24 hours. Maintained on Lasix at 80 mg IV push every 12 hours, she is off Lasix drip. Patient clearly has acute kidney injury cardiorenal, nonoliguric,WBC count today is 4.6 hemoglobin 9.6. Basic metabolic profile is normal BUN is 83 creatinine down to 3.39, no chest x-ray was felt to be necessary today Objective - Vital Signs Vital signs: Vital Signs Temp 97.4 F L 10/26/23 04:00 Pulse 61 10/26/23 04:00 Resp 14 10/26/23 04:00 BP 106/56 10/26/23 04:00 Pulse Ox 95 10/26/23 04:00 FiO2 45 10/26/23 08:43 Intake & Output 10/25/23 10/26/23 10/26/23 18:59 06:59 18:59 Intake Total 955 540 Output Total 2034 1874 Balance -1080 -1335 Weight 221.724 kg 216.931 kg Intake: IV 55 0.9 @ KVO 55 Oral 900 540 Output: Urine 2034 1874 Other: Voiding Method Indwelling Catheter Indwelling Catheter - Exam Physical Exam: Revealed a 48-year-old female, obese, on 3 L nasal cannula, alternating with BiPAP, remains asymptomatic Head: Atraumatic, normocephalic. HEENT: Short obese neck. [Neck is supple.] [No neck masses.] [No thyromegaly.] [No JVD.] Chest: Diminished breath sounds and crackles at the bases Cardiac Exam: Distant S1 and S2, no S3 gallop. Abdomen: [Morbidly obese, Soft, nontender, no megaly, no rebound, no guarding, normal bowel sounds.] Extremities: [No clubbing, trace bipedal edema, no cyanosis.] Neurological Exam: Alert oriented x 3 no gross focal neurologic deficit Psychiatric: Normal mood and affect and normal mental status examination - Labs CBC & Chem 7: 10/25/23 04:29 10/26/23 05:23 Labs: Abnormal Lab Results - Last 24 Hours (Table) 10/26/23 Range/Units 05:23 Chloride 108 H (98-107) mmol/L BUN 83 H (7-17) mg/dL Creatinine 3.39 H (0.52-1.04) mg/dL Assessment and Plan Assessment: Impression: Acute on chronic hypoxic and hypercapnic respiratory failure Acute on chronic diastolic congestive heart failure Morbid obesity, BMI over 75 Acute on chronic kidney disease Acute metabolic encephalopathy Paroxysmal atrial fibrillation Obesity/hypoventilation syndrome Obstructive sleep apnea syndrome, not on CPAP or BiPAP History of DVT. Acute on chronic kidney disease Benign essential hypertension History of respiratory failure requiring intubation and mechanical ventilation Anemia of chronic disease Chronic left upper extremity lymphedema recommendation: Continue Lasix 80 mg IV push twice daily Transfer patient to a monitored bed and selective Continue BiPAP alternate with nasal cannula Continue eliquis GI and DVT prophylaxis Continue to monitor I's and O's We will continue to follow. Overall prognosis remains poor Time with Patient: Less than 30
[2023-10-27 06:57] LABS: Anisocytosis Slight; Basophils % (A) 1 %; Eosinophils # (A) 0.1 k/uL (0-0.7); Eosinophils % (A) 3 %; HGB 9.3 gm/dL (11.4-16.0); Hypochromasia Marked; Lymphocytes # (A) 0.6 k/uL (1.0-4.8); Lymphocytes % (A) 19 %; MCH 23.9 pg (25.0-35.0); MCHC 28.9 g/dL (31.0-37.0); MCV 82.5 fL (80.0-100.0); Mean Platelet Volume 7.6; Microcytosis Slight; Monocytes # (A) 0.3 k/uL (0-1.0); Monocytes % (A) 9 %; Neutrophils # (A) 2.2 k/uL (1.3-7.7); Neutrophils % (A) 65 %; Platelet Count 107 k/uL (150-450); Poikilocytosis Slight; RBC 3.88 m/uL (3.80-5.40); RDW 18.6 % (11.5-15.5); WBC 3.4 k/uL (3.8-10.6)
[2023-10-27 07:06] LABS: African American GFR (CKD) 18 (>60 ml/min/1.73 sqM); Anion Gap 3 mmol/L; Blood Urea Nitrogen 79 mg/dL (7-17); Calcium 8.3 mg/dL (8.4-10.2); Carbon Dioxide 29 mmol/L (22-30); Chloride 108 mmol/L (98-107); Glucose 83 mg/dL (74-99); Non-African American GFR(CKD) 16 (>60 ml/min/1.73 sqM); Sodium 140 mmol/L (137-145)
[2023-10-27 07:07] LABS: Potassium 4.2 mmol/L (3.5-5.1)
[2023-10-27] MEDS: FUROSEMIDE 10 MG/ML 10 ML VIAL IV SCH ×2 (08:38→21:31)
[2023-10-27] MEDS: PANTOPRAZOLE 40 MG TABLET PO SCH (08:39)
[2023-10-27] MEDS: ISOSORBIDE MONONITRATE ER 30 MG TAB.ER.24H PO SCH (08:39)
[2023-10-27] MEDS: METOPROLOL SUCCINATE (ER) 100 MG TAB.ER.24H PO SCH ×2 (08:39→11:57)
[2023-10-27] MEDS: APIXABAN 5 MG TAB PO SCH ×2 (08:39→21:31)
[2023-10-27] MEDS: FOLIC ACID 1 MG TAB PO SCH (08:39)
[2023-10-27] MEDS: hydrALAZINE HCL 50 MG TAB PO SCH ×2 (08:39→21:31)
--- NOTE | 2023-10-27 10:58 | PN ---
PROGRESS NOTE SUBJECTIVE: Ankita is a 48-year-old lady, who is admitted to ICU because of respiratory insufficiency, obstructive sleep apnea, morbid obesity, and worsening insomnia. The patient was on BiPAP yesterday. This morning, the patient is on nasal O2, appears comfortable at rest and free of symptoms. She is on IV Lasix, diuresing well. Leg edema had improved. She is also on Eliquis 5 b.i.d., Imdur, Toprol, and hydralazine. OBJECTIVE: GENERAL: On exam, the patient is morbidly overweight. VITAL SIGNS: Heart rate is 68 beats per minute, blood pressure 130/82, respiratory rate 18. NECK: There is no jugular venous distention. CHEST: Reveals diminished air entry at the bases. HEART: Reveals first and second heart sounds. No gallop. ABDOMEN: Soft. EXTREMITIES: Reveal mild bilateral edema. LABORATORY DATA: Labs show hemoglobin of 9.3, platelet count is 107. Potassium is 4.2, BUN is 79, creatinine is 3.2. ASSESSMENT: 1. Chronic diastolic heart failure. 2. Chronic renal insufficiency. 3. History of paroxysmal atrial fibrillation. 4. Morbid obesity. PLAN: I will continue the patient on current dose of IV Lasix and Eliquis. MMODL / IJN: [id number] /
--- NOTE | 2023-10-27 11:00 | P.PN ---
Subjective Patient is seen for follow-up for acute kidney injury and volume overload. Currently being diuresed. Status post Lasix drip. Maintained on 80 mg IV every 12 hours now. Urine output 1.8 L per 24 hours.. Patient is off of BiPAP. Serum creatinine decreased to 3. 2 today. Objective - Vital Signs Vital signs: Vital Signs Temp 98.2 F 10/27/23 08:00 Pulse 68 10/27/23 08:00 Resp 12 10/27/23 08:00 BP 131/84 10/27/23 08:00 Pulse Ox 97 10/27/23 08:00 FiO2 45 10/27/23 05:05 Intake & Output 10/26/23 10/27/23 10/27/23 18:59 06:59 18:59 Intake Total 20 Output Total 7529 324 2149 Balance -1545 -798 -4005 Weight 215.91 kg Intake: IV 20 0.9 @ KVO 20 Output: Urine 0192 027 1783 Other: Voiding Method Indwelling Catheter Indwelling Catheter Indwelling Catheter - Exam Patient is awake, comfortable Alert oriented x 3 Examination of the heart S1 and S2 Examination of the lungs decreased breath sounds at the bases Abdomen is soft morbidly obese Examination of lower extremities with chronic edema 2-3+ bilaterally 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 - Labs CBC & Chem 7: 10/27/23 06:45 10/27/23 06:45 Labs: Abnormal Lab Results - Last 24 Hours (Table) 10/27/23 10/27/23 Range/Units 06:45 06:45 WBC 3.4 L (3.8-10.6) k/uL Hgb 9.3 L (11.4-16.0) gm/dL Hct 32.0 L (34.0-46.0) % MCH 23.9 L (25.0-35.0) pg MCHC 28.9 L (31.0-37.0) g/dL RDW 18.6 H (11.5-15.5) % Plt Count 107 L (150-450) k/uL Lymphocytes # 0.6 L (1.0-4.8) k/uL Chloride 108 H (98-107) mmol/L BUN 79 H (7-17) mg/dL Creatinine 3.26 H (0.52-1.04) mg/dL Calcium 8.3 L (8.4-10.2) mg/dL Assessment and Plan Assessment: 1. ANGUS, cardiorenal, nonoliguric. U/A in may showed 3+ prtn. UPCR 2.4, W/U showed THANH 1: 80 and elevated kappa and lambda chains but ratio not significantly elevated. USS in May 2023 showed no obstruction, Left kidney not seen due to bowel gas pattern and body habitus. 2. CKD progressively worsening. 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 UPCR 2.4, W/U showed THANH 1: 80 and elevated kappa and lambda chains but ratio not significantly elevated. Ideally a kidney bx should be performed down the road. 3. Volume overload. Improving. 4. Acute on chronic diastolic CHF, EF 50-55% in April 2023 5. Morbid obesity 6. Acute hypercapnic and hypoxic respiratory failure, improved Plan: Continue current dose of IV Lasix. Repeat labs in a.m. Continue to avoid nephrotoxic agents
--- NOTE | 2023-10-27 12:33 | P.PN ---
Subjective Progress Note Date: 10/27/23 Principal diagnosis: Acute on chronic hypoxic and hypercapnic respiratory failure This is a 48-year-old -[place] female, known history of congestive heart failure hypertension more than obesity obstructive sleep apnea syndrome, chronic hypoxic respiratory failure, previous ventilator dependent respiratory failure, chronic kidney disease stage IV, left upper extremity lymphedema, anemia, frequent episodes of urinary tract infections, multiple previous admissions with congestive heart failure and hypoxic and hypercapnic respiratory failure. Patient was admitted today with chief complaint of shortness of breath, and increased lower extremity swelling. Upon my evaluation, patient was noted to be on BiPAP, lethargic, opens eyes to verbal stimuli, and her chest x-ray clearly showed evidence of pulmonary edema. ABG on admission showed a pO2 of 82 pCO2 60 pH of 7.18. Her labs clearly showed evidence of worsening renal failure with a BUN of 88 creatinine 4.23, hence I suggested starting the patient on IV Lasix drip, and I also suggested admitting the patient to the ICU since her overall pulmonary status seems to be marginal at best. Her BNP level was over 10,000. And troponin level was elevated at around 0.060. Previous echocardiogram on this patient showed preserved systolic function with ejection fraction of 50-55% labs today showed WBC count 6.1 hemoglobin 11.2. Sodium 144 potassium 4.6 bicarb is 20 BUN is 88 creatinine 4.23 Patient evaluated today on 10/23/2022, I saw this patient yesterday in consultation, and I transferred the patient to the ICU. Patient was in acute on chronic diastolic congestive heart failure, I started the patient on Lasix drip at 10 mg/h, she was kept on BiPAP 16/6/35%, and reevaluated today, seems to be definitely more awake, more responsive compared to yesterday, patient is feeling better, and she has had significant urine output since admission. Patient has been in negative fluid balance almost a liter and a half over the last 12 hours. Yesterday we had difficulty placing a Colon catheter, however the nurses were finally successful in placing 1, and seems to be draining well and functional. Right now patient has a urine output of 100 up to 170 cc/h on the Lasix drip. She was seen by nephrology in consultation and felt to have acute kidney injury, cardiorenal nonoliguric, and the recommendation was to continue Lasix drip WBC count today is 5.5 hemoglobin is 10.1. Basic metabolic profile is normal bicarb is 21 BUN is 91 creatinine 4.03. Patient was reevaluated today on 10/23/2023, remains on Lasix drip, remains in negative balance, feeling better, and she is now on BiPAP 16/6/35%. Patient is about -4 L/fluid balance. Her creatinine is a bit high at 4.49 today. Labs this morning showed WBC count of 5.6 hemoglobin 9.7 sodium 145 potassium 5.3 bicarb is 18 BUN 95 creatinine 4.49, patient is being followed by nephrology and she is also being followed by cardiology. Clinically there is some improvement, but nonetheless patient continues to be marginal at best. Clearly the patient has congestive heart failure with preserved systolic function. And she had similar presentations in the past her mentation seems to be improving, and her metabolic encephalopathy is getting better. Patient was reevaluated today on 10/24/2023, remains on Lasix drip however it was cut down to 5 mg/h. Urine output ranging between 100 to 200 cc/h, patient is intermittently on BiPAP, and her creatinine is pending today. Yesterday creatinine was 4.49. Chest x-ray is showing improvement in her pulmonary edema clinically the patient is feeling better. Patient declined having labs drawn today. Patient was reevaluated today on 10/25/2023, remains in the ICU, remains on Lasix drip at 5 mg/h, remains in negative fluid balance, patient is -5 L in the last 48 hours. She is now on nasal cannula at 3 L, not in any distress, intermittently on BiPAP 16/6/45%. Today I am planning to discontinue Lasix infusion, and give the patient Lasix 80 mg IV push twice daily and will likely transfer the patient to a cardiac floor today 3 S. WBC is 4.6 hemoglobin 9.6. Basic metabolic profile is normal BUN is 92 creatinine down to 3.92. Nephrology is entertaining the possibility of kidney biopsy for further evaluation of her abnormal labs including elevated THANH, elevated kappa and lambda chains but the ratio does not seem to be significantly elevated. And nephrology is considering kidney biopsy Patient was reevaluated today on 10/26/2023 patient remains in the ICU as an overflow, intermittently on BiPAP and alternating with nasal cannula, feeling much better, breathing easier, continues to have significant urine output 3.9 L over the last 24 hours. Maintained on Lasix at 80 mg IV push every 12 hours, she is off Lasix drip. Patient clearly has acute kidney injury cardiorenal, nonoliguric,WBC count today is 4.6 hemoglobin 9.6. Basic metabolic profile is normal BUN is 83 creatinine down to 3.39, no chest x-ray was felt to be necessary today Patient was reevaluated today on 10/27/2023, patient continues to do well in the ICU as an overflow, off Lasix drip for the last 2 days she is now on Lasix 80 mg IV push every 12 hours urine output almost 1.8 L over the last 24 hours. Her renal profile seems to be improving decreased creatinine to 3.2. Rest of her labs are basically unremarkable. Potassium is 4.2 bicarb is 29. Overall, the patient is making a dramatic improvement Objective - Vital Signs Vital signs: Vital Signs Temp 98.2 F 10/27/23 08:00 Pulse 68 10/27/23 08:00 Resp 12 10/27/23 08:00 BP 131/84 10/27/23 08:00 Pulse Ox 97 10/27/23 08:00 FiO2 45 10/27/23 05:05 Intake & Output 10/26/23 10/27/23 10/27/23 18:59 06:59 18:59 Intake Total 20 Output Total 3326 675 9073 Balance -4913 -125 -2911 Weight 215.91 kg Intake: IV 20 0.9 @ KVO 20 Output: Urine 7958 511 7251 Other: Voiding Method Indwelling Catheter Indwelling Catheter Indwelling Catheter - Exam Physical Exam: Revealed a 48-year-old female, obese, on 3 L nasal cannula, saturation 97% Head: Atraumatic, normocephalic. HEENT: Short obese neck. [Neck is supple.] [No neck masses.] [No thyromegaly.] [No JVD.] Chest: Diminished breath sounds and crackles at the bases Cardiac Exam: Distant S1 and S2, no S3 gallop. Abdomen: [Morbidly obese, Soft, nontender, no megaly, no rebound, no guarding, normal bowel sounds.] Extremities: [No clubbing, trace bipedal edema, no cyanosis.] Neurological Exam: Alert oriented x 3 no gross focal neurologic deficit Psychiatric: Normal mood and affect and normal mental status examination - Labs CBC & Chem 7: 10/27/23 06:45 10/27/23 06:45 Labs: Abnormal Lab Results - Last 24 Hours (Table) 10/27/23 10/27/23 Range/Units 06:45 06:45 WBC 3.4 L (3.8-10.6) k/uL Hgb 9.3 L (11.4-16.0) gm/dL Hct 32.0 L (34.0-46.0) % MCH 23.9 L (25.0-35.0) pg MCHC 28.9 L (31.0-37.0) g/dL RDW 18.6 H (11.5-15.5) % Plt Count 107 L (150-450) k/uL Lymphocytes # 0.6 L (1.0-4.8) k/uL Chloride 108 H (98-107) mmol/L BUN 79 H (7-17) mg/dL Creatinine 3.26 H (0.52-1.04) mg/dL Calcium 8.3 L (8.4-10.2) mg/dL Assessment and Plan Assessment: Impression: Acute on chronic hypoxic and hypercapnic respiratory failure Acute on chronic diastolic congestive heart failure Morbid obesity, BMI over 75 Acute on chronic kidney disease Acute metabolic encephalopathy Paroxysmal atrial fibrillation Obesity/hypoventilation syndrome Obstructive sleep apnea syndrome, not on CPAP or BiPAP History of DVT. Acute on chronic kidney disease Benign essential hypertension History of respiratory failure requiring intubation and mechanical ventilation Anemia of chronic disease Chronic left upper extremity lymphedema recommendation: Continue Lasix 80 mg IV push twice daily Transfer patient to medical surgical floor with remote telemetry Continue BiPAP alternate with nasal cannula Continue eliquis GI and DVT prophylaxis Continue to monitor I's and O's Etiology is following the patient along with nephrology Will follow the patient on as-needed basis. Time with Patient: Less than 30
--- NOTE | 2023-10-27 17:52 | PN ---
PROGRESS NOTE DATE OF SERVICE: 10/27/2023 CHIEF COMPLAINT: Acute congestive heart and renal failure. HISTORY OF PRESENT ILLNESS: This lady is fairly stable. Renal function is slightly improved. She is not complaining of any chest pain or shortness of breath. PHYSICAL EXAMINATION: VITAL SIGNS: Normal. LUNGS: Breath sounds are heard bilaterally. CARDIAC: Unremarkable. IMPRESSION: 1. Acute congestive heart failure. 2. Chronic congestive heart failure. 3. Chronic renal failure. PLAN: Continue with ICU management and she is being further evaluated by Hematology/Oncology. MMODL / IJN: [id number] /
--- NOTE | 2023-10-27 18:51 | PN ---
PROGRESS NOTE DATE OF SERVICE: 10/26/2023 CHIEF COMPLAINT: Acute on chronic congestive heart failure and renal failure. HISTORY OF PRESENT ILLNESS: This lady's condition is more or less stable. Renal function has improved slightly. PHYSICAL EXAMINATION: GENERAL: She is awake and alert. VITAL SIGNS: Normal. CHEST: Clear. CARDIAC: Sinus. ABDOMEN: Protuberant. IMPRESSION: 1. Acute on chronic congestive heart failure. 2. Acute on chronic renal failure. PLAN: No change in ICU management. MMODL / IJN: [id number] /
--- NOTE | 2023-10-28 08:51 | P.PN ---
Subjective Patient is seen in follow-up for acute kidney injury on chronic kidney disease. Renal function slightly better. Nonoliguric. Denies chest pain or shortness of breath. Oral intake is good. Vital signs are stable. General: No acute distress. HEENT: Head exam is unremarkable. On nasal cannula. LUNGS: No audible rhonchi or wheezes. HEART: Rate and Rhythm are regular. ABDOMEN: Obese, nontender. EXTREMITITES: Trace edema. Objective - Vital Signs Vital signs: Vital Signs Temp 97.6 F 10/28/23 02:00 Pulse 62 10/28/23 02:00 Resp 15 10/28/23 02:00 BP 106/64 10/28/23 02:00 Pulse Ox 95 10/28/23 02:00 FiO2 40 10/28/23 04:06 Intake & Output 10/27/23 10/28/23 10/28/23 18:59 06:59 18:59 Intake Total 242 Output Total 2925 910 Balance -2925 -668 Weight 216.7 kg Intake: IV 42 0.9 @ KVO 42 Oral 200 Output: Urine 2925 910 Other: Voiding Method Indwelling Catheter Indwelling Catheter - Labs CBC & Chem 7: 10/27/23 06:45 10/27/23 06:45 Assessment and Plan Plan: Assessment: 1. Acute kidney injury secondary to ATN secondary to cardiorenal syndrome. Creatinine 4.25 on admission and is 3.26 today. 2. Chronic kidney disease stage IV with recent creatinine in the range of 3- 3.5. Ultrasound from May 2023 showed no hydronephrosis but left kidney was not visualized. Serologies in the past have been negative except for positive THANH. Urine protein electrophoresis suggestive of glomerular proteinuria. UPC 2.4 g in May 2023. CAT scan from November 2022 showed no hydronephrosis. UA showed positive protein and no blood. 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 3. Acute on chronic systolic CHF with ejection fraction of 30 to 35%. 4. Volume overload. Improved with diuresis. 5. Anemia of chronic kidney disease. 6. Morbid obesity. 7. Hypertension with chronic kidney disease. Controlled. Plan: Change IV Lasix to oral Lasix 80 mg twice daily. Aranesp x 1 dose today. Advised patient to monitor her weight closely at home and to notify physician if develops worsening edema or gains more than 3 pounds in 1 week duration. Also advised to maintain low-salt diet and fluid restriction of less than 50 ounces per day. Repeat BMP and magnesium level 2 to 3 days postdischarge. Follow-up outpatient in 1 week. Also discussed kidney biopsy for definitive diagnosis with patient. States she will think about it.
[2023-10-28] MEDS ORDERED: DARBEPOETIN ALFA 40 MCG/0.4 ML SYRINGE SQ ONE (09:00)
--- NOTE | 2023-10-28 09:35 | XR ---
EXAMINATION TYPE: XR chest 2V DATE OF EXAM: 10/28/2023 COMPARISON: 10/25/2023 HISTORY: Chest pain TECHNIQUE: Frontal and lateral views of the chest are obtained. FINDINGS: Cardiomegaly with pulmonary venous congestion with improving right basilar infiltrate. Hilar and medi astinal structures are within normal limits. The osseous structures are grossly intact. IMPRESSION: 1. Cardiomegaly with pulmonary venous congestion with improving right basilar infiltrate.
[2023-10-28] MEDS: FUROSEMIDE 80 MG TAB PO SCH ×2 (09:52→17:07)
[2023-10-28] MEDS: FOLIC ACID 1 MG TAB PO SCH (09:52)
[2023-10-28] MEDS: PANTOPRAZOLE 40 MG TABLET PO SCH (09:52)
[2023-10-28 09:53] LABS: African American GFR (CKD) 18 (>60 ml/min/1.73 sqM); Anion Gap 11 mmol/L; Blood Urea Nitrogen 76 mg/dL (7-17); Calcium 8.9 mg/dL (8.4-10.2); Carbon Dioxide 25 mmol/L (22-30); Chloride 103 mmol/L (98-107); Glucose 119 mg/dL (74-99); Magnesium 2.4 mg/dL (1.6-2.3); Non-African American GFR(CKD) 16 (>60 ml/min/1.73 sqM); Sodium 139 mmol/L (137-145)
[2023-10-28] MEDS: APIXABAN 5 MG TAB PO SCH ×2 (09:53→20:49)
[2023-10-28] MEDS: hydrALAZINE HCL 50 MG TAB PO SCH ×2 (09:53→20:49)
[2023-10-28] MEDS: ISOSORBIDE MONONITRATE ER 30 MG TAB.ER.24H PO SCH (09:53)
[2023-10-28] MEDS: METOPROLOL SUCCINATE (ER) 100 MG TAB.ER.24H PO SCH (09:53)
[2023-10-28 09:55] LABS: Potassium 4.2 mmol/L (3.5-5.1)
[2023-10-28] MEDS: PATIENT'S OWN (Dulaglutide [Trulicity] 0.75 MG/0.5 ML Each) SQ SCH (09:56)
[2023-10-28] MEDS ORDERED: FLUCONAZOLE 150 MG TAB PO STA (11:21)
--- NOTE | 2023-10-28 12:23 | P.PN ---
Subjective Progress Note Date: 10/28/23 This is a 48-year-old -[place] female, known history of congestive heart failure hypertension more than obesity obstructive sleep apnea syndrome, chronic hypoxic respiratory failure, previous ventilator dependent respiratory failure, chronic kidney disease stage IV, left upper extremity lymphedema, anemia, frequent episodes of urinary tract infections, multiple previous admissions with congestive heart failure and hypoxic and hypercapnic respiratory failure. Patient was admitted today with chief complaint of shortness of breath, and increased lower extremity swelling. Upon my evaluation, patient was noted to be on BiPAP, lethargic, opens eyes to verbal stimuli, and her chest x-ray clearly showed evidence of pulmonary edema. ABG on admission showed a pO2 of 82 pCO2 60 pH of 7.18. Her labs clearly showed evidence of worsening renal failure with a BUN of 88 creatinine 4.23, hence I suggested starting the patient on IV Lasix drip, and I also suggested admitting the patient to the ICU since her overall pulmonary status seems to be marginal at best. Her BNP level was over 10,000. And troponin level was elevated at around 0.060. Previous echocardiogram on this patient showed preserved systolic function with ejection fraction of 50-55% labs today showed WBC count 6.1 hemoglobin 11.2. Sodium 144 potassium 4.6 bicarb is 20 BUN is 88 creatinine 4.23 Patient evaluated today on 10/23/2022, I saw this patient yesterday in consultation, and I transferred the patient to the ICU. Patient was in acute on chronic diastolic congestive heart failure, I started the patient on Lasix drip at 10 mg/h, she was kept on BiPAP 16/6/35%, and reevaluated today, seems to be definitely more awake, more responsive compared to yesterday, patient is feeling better, and she has had significant urine output since admission. Patient has been in negative fluid balance almost a liter and a half over the last 12 hours. Yesterday we had difficulty placing a Colon catheter, however the nurses were finally successful in placing 1, and seems to be draining well and functional. Right now patient has a urine output of 100 up to 170 cc/h on the Lasix drip. She was seen by nephrology in consultation and felt to have acute kidney injury, cardiorenal nonoliguric, and the recommendation was to continue Lasix drip WBC count today is 5.5 hemoglobin is 10.1. Basic metabolic profile is normal bicarb is 21 BUN is 91 creatinine 4.03. Patient was reevaluated today on 10/23/2023, remains on Lasix drip, remains in negative balance, feeling better, and she is now on BiPAP 16/6/35%. Patient is about -4 L/fluid balance. Her creatinine is a bit high at 4.49 today. Labs this morning showed WBC count of 5.6 hemoglobin 9.7 sodium 145 potassium 5.3 bicarb is 18 BUN 95 creatinine 4.49, patient is being followed by nephrology and she is also being followed by cardiology. Clinically there is some improvement, but nonetheless patient continues to be marginal at best. Clearly the patient has congestive heart failure with preserved systolic function. And she had similar presentations in the past her mentation seems to be improving, and her metabolic encephalopathy is getting better. Patient was reevaluated today on 10/24/2023, remains on Lasix drip however it was cut down to 5 mg/h. Urine output ranging between 100 to 200 cc/h, patient is intermittently on BiPAP, and her creatinine is pending today. Yesterday creatinine was 4.49. Chest x-ray is showing improvement in her pulmonary edema clinically the patient is feeling better. Patient declined having labs drawn today. Patient was reevaluated today on 10/25/2023, remains in the ICU, remains on Lasix drip at 5 mg/h, remains in negative fluid balance, patient is -5 L in the last 48 hours. She is now on nasal cannula at 3 L, not in any distress, intermittently on BiPAP 16/6/45%. Today I am planning to discontinue Lasix infusion, and give the patient Lasix 80 mg IV push twice daily and will likely transfer the patient to a cardiac floor today 3 S. WBC is 4.6 hemoglobin 9.6. Basic metabolic profile is normal BUN is 92 creatinine down to 3.92. Nephrology is entertaining the possibility of kidney biopsy for further evaluation of her abnormal labs including elevated THANH, elevated kappa and lambda chains but the ratio does not seem to be significantly elevated. And nephrology is considering kidney biopsy Patient was reevaluated today on 10/26/2023 patient remains in the ICU as an overflow, intermittently on BiPAP and alternating with nasal cannula, feeling much better, breathing easier, continues to have significant urine output 3.9 L over the last 24 hours. Maintained on Lasix at 80 mg IV push every 12 hours, carla thao is off Lasix drip. Patient clearly has acute kidney injury cardiorenal, nonoliguric,WBC count today is 4.6 hemoglobin 9.6. Basic metabolic profile is normal BUN is 83 creatinine down to 3.39, no chest x-ray was felt to be necessary today Patient was reevaluated today on 10/27/2023, patient continues to do well in the ICU as an overflow, off Lasix drip for the last 2 days she is now on Lasix 80 mg IV push every 12 hours urine output almost 1.8 L over the last 24 hours. Her renal profile seems to be improving decreased creatinine to 3.2. Rest of her labs are basically unremarkable. Potassium is 4.2 bicarb is 29. Overall, the patient is making a dramatic improvement The patient is seen today October 28, 2023 in follow-up in the intensive care unit. She remains at 3 S. overflow. She is sitting up in a chair currently. Awake and alert in no acute distress. She is maintaining O2 saturations in the 90s on 3 L/min per nasal cannula. She did utilize BiPAP throughout the night 16/6 and 45% FiO2. X-ray continues to show cardiomegaly with some pulmonary vascular congestion and improvement in the right basilar infiltrate. Sodium 139. Potassium 4.2. Bicarb 25. BUN 76. Creatinine 3.33. Glucose 119. She is continued on oral diuretics. Anticoagulated with Eliquis. Objective - Vital Signs Vital signs: Vital Signs Temp 97.9 F 10/28/23 08:00 Pulse 61 10/28/23 08:00 Resp 18 10/28/23 08:00 BP 129/84 10/28/23 08:00 Pulse Ox 97 10/28/23 08:00 FiO2 40 10/28/23 04:06 Intake & Output 10/27/23 10/28/23 10/28/23 18:59 06:59 18:59 Intake Total 242 240 Output Total 2925 910 Balance -5056 -539 240 Weight 216.7 kg Intake: IV 42 0.9 @ KVO 42 Oral 200 240 Output: Urine 2925 910 Other: Voiding Method Indwelling Catheter Indwelling Catheter Indwelling Catheter - Exam GENERAL EXAM: Alert, pleasant, morbidly obese 48-year-old female, up in a chair, on 3 L, comfortable in no apparent distress. HEAD: Normocephalic. EYES: Normal reaction of pupils, equal size. NOSE: Clear with pink turbinates. THROAT: No erythema or exudates. NECK: No masses, no JVD. CHEST: No chest wall deformity. LUNGS: Equal air entry with Eckels in the right base. Diminished. CVS: S1 and S2 normal with no audible murmur, regular rhythm. ABDOMEN: Obese, unable to appreciate hepatosplenomegaly, normal bowel sounds, no guarding or rigidity. SPINE: No scoliosis or deformity SKIN: No rashes CENTRAL NERVOUS SYSTEM: No focal deficits, tone is normal in all 4 extremities. EXTREMITIES: There is 1-2+ peripheral edema. No clubbing, no cyanosis. Peripheral pulses are intact. - Labs CBC & Chem 7: 10/27/23 06:45 10/28/23 09:21 Labs: Abnormal Lab Results - Last 24 Hours (Table) 10/28/23 Range/Units 09:21 BUN 76 H (7-17) mg/dL Creatinine 3.33 H (0.52-1.04) mg/dL Glucose 119 H (74-99) mg/dL Magnesium 2.4 H (1.6-2.3) mg/dL Assessment and Plan Assessment: Acute on chronic hypoxic and hypercapnic respiratory failure secondary to acute exacerbation of chronic diastolic congestive heart failure Acute on chronic diastolic congestive heart failure Morbid obesity, BMI over 75 Acute on chronic kidney disease Acute metabolic encephalopathy Paroxysmal atrial fibrillation Obesity/hypoventilation syndrome Obstructive sleep apnea syndrome, not on CPAP or BiPAP History of DVT. Acute on chronic kidney disease Benign essential hypertension History of respiratory failure requiring intubation and mechanical ventilation Anemia of chronic disease Chronic left upper extremity lymphedema Plan: The patient was seen and evaluated Chest x-ray, labs and medications reviewed Continue the current treatment plan Titrate the FiO2 as tolerated Continue BiPAP at night and during the day while napping Transfer out of the ICU once a bed is available We will continue to follow I have personally seen and examined the patient, performed the documentation and the assessment and plan as written. Number of minutes spent on the visit: 10.
--- NOTE | 2023-10-28 15:17 | P.PN ---
Subjective PROGRESS NOTE The patient is a 48-year-old female with known history of chronic kidney disease, congestive heart failure, obstructive sleep apnea and morbid obesity who presented with symptoms of progressive dyspnea, change in mental status. She was somnolent yesterday and was transferred to the ICU. She is on the BiPAP, awake, alert and following commands. She is on IV heparin with good urinary output. She has no evidence of malignant arrhythmia. Hemodynamically she is stable. Her left ventricle systolic function has been preserved in the past. October 23: The patient continues to be on BiPAP. She is more sleepy this morning. Accor ding to the nursing staff she slept late. She was awake and alert earlier according to them appropriate. She continues to be in sinus mechanism and hemodynamically stable. She is on no vasopressor. She continues to be on IV Lasix drip with good urine output. October 24: The patient remained stable on the BiPAP. Hemodynamically stable. She has no evidence of atrial fibrillation or ventricular ectopic activity. Her urine output has been stable. She continues to be on IV Lasix drip. Her blood pressure has been stable. She is not requiring any vasopressor. October 25: She is more awake and alert today, denies any chest discomfort, dizziness or palpitations. She continues to be on the IV Lasix drip. She is on nasal cannula. She denies any nausea or vomiting. Hemodynamically she is stable. Medications: IV Lasix drip 10 mg an hour, hydralazine 50 mg twice a day, isosorbide mononit rate 30 mg daily, metoprolol succinate 100 mg daily, Eliquis 5 milligrams twice a day, [facility] 10/28 Patient seen and examined. Patient was transitioned over to oral Lasix 80 mg twice a day. She still admits to some lower extremity edema however has been better. She denies any significant chest pain or shortness breath. Creatinine stable today at 3.3 PHYSICAL EXAMINATION: Vitals reviewed LUNGS: Clear to auscultation anteriorly HEART: Regular rate and rhythm, S1, S2. No S3. No systolic murmur ABDOMEN: Soft, nontender, no organomegaly, obese EXTREMETIES: Trace edema, obese IMPRESSION: 1. Respiratory failure with hypoxemia and hypercapnia, improving 2. Acute on chronic CHF with preserved systolic function 3. Chronic kidney disease 4. Morbid obesity 5. History of hypertension 6. Metabolic encephalopathy, resolved 7. Obstructive sleep apnea 8. History of paroxysmal atrial fibrillation PLAN: Patient still appears mildly volume overloaded however transition over to oral Lasix and appears to be tolerating. Creatinine appears stable. Continue with current regimen. Hopeful discharge in next 24-48 hours. Objective - Vital Signs Vital signs: Vital Signs Temp 97.5 F L 10/28/23 14:00 Pulse 74 10/28/23 14:00 Resp 18 10/28/23 14:00 BP 118/85 10/28/23 14:00 Pulse Ox 97 10/28/23 14:00 FiO2 40 10/28/23 04:06 Intake & Output 10/27/23 10/28/23 10/28/23 18:59 06:59 18:59 Intake Total 242 480 Output Total 2925 910 1100 Balance -6215 -112 -206 Weight 216.7 kg Intake: IV 42 0.9 @ KVO 42 Oral 200 480 Output: Urine 2925 910 1100 Other: Voiding Method Indwelling Catheter Indwelling Catheter Indwelling Catheter - Labs CBC & Chem 7: 10/27/23 06:45 10/28/23 09:21 Labs: Abnormal Lab Results - Last 24 Hours (Table) 10/28/23 Range/Units 09:21 BUN 76 H (7-17) mg/dL Creatinine 3.33 H (0.52-1.04) mg/dL Glucose 119 H (74-99) mg/dL Magnesium 2.4 H (1.6-2.3) mg/dL
--- NOTE | 2023-10-28 15:34 | P.PN ---
Subjective Progress Note Date: 10/28/23 Principal diagnosis: Elevated K/L light chains In f/u today pt reports that she is feeling better then on admit, breathing is less labored, no severe SOB, no other acute physical c/o. Objective - Vital Signs Vital signs: Vital Signs Temp 97.5 F L 10/28/23 14:00 Pulse 74 10/28/23 14:00 Resp 18 10/28/23 14:00 BP 118/85 10/28/23 14:00 Pulse Ox 97 10/28/23 14:00 FiO2 40 10/28/23 04:06 Intake & Output 10/27/23 10/28/23 10/28/23 18:59 06:59 18:59 Intake Total 242 480 Output Total 2925 910 1100 Balance -4367 -656 -210 Weight 216.7 kg Intake: IV 42 0.9 @ KVO 42 Oral 200 480 Output: Urine 2925 910 1100 Other: Voiding Method Indwelling Catheter Indwelling Catheter Indwelling Catheter - Constitutional General appearance: Present: cooperative, morbidly obese, no acute distress - EENT Eyes: Present: anicteric sclerae, EOMI ENT: Present: hearing grossly normal - Respiratory Details: resp even and unlabored at rest - Neurologic Neurologic: Present: CNII-XII intact - Psychiatric Psychiatric: Present: A&O x's 3, appropriate affect, intact judgment & insight - Labs CBC & Chem 7: 10/27/23 06:45 10/28/23 09:21 Labs: Abnormal Lab Results - Last 24 Hours (Table) 10/28/23 Range/Units 09:21 BUN 76 H (7-17) mg/dL Creatinine 3.33 H (0.52-1.04) mg/dL Glucose 119 H (74-99) mg/dL Magnesium 2.4 H (1.6-2.3) mg/dL Assessment and Plan (1) Elevated serum immunoglobulin free light chains Current Visit: Yes Status: Acute Priority: Medium Code(s): R76.8 - OTHER SPECIFIED ABNORMAL IMMUNOLOGICAL FINDINGS IN SERUM SNOMED Code(s): 15464510967 Plan: Elevated serum light chains -K/L light chains cont to be elevated, ratio is near normal, better then previous. No monoclonal paraproteinemia, no Bence-Manzo proteins on urine immunofixation. Urine electrophoresis showing a glomerular proteinuria. Nephrology is considering a renal biopsy when patient is more stable. -IgM,IgA levels are normal, IgG elevated, non-specific. Hx iron deficient anemia -Hgb stable at 9.3 today. Hgb baseline is 9-10 range. -Patient has received parenteral iron, started on Aranesp. Attests: I have seen and examined pt, performed H&P, developed impression and plan of care. Discussed with dictator. Agree with documentation, dictated as a scribe.
[2023-10-28] MEDS: NYSTATIN 100,000 UNIT/GM POWD 15 GM TOPICAL SCH ×2 (17:08→20:52)
--- NOTE | 2023-10-28 20:10 | PN ---
PROGRESS NOTE DATE OF SERVICE: 10/28/2023 CHIEF COMPLAINT: Acute on chronic congestive heart failure and renal failure. HISTORY OF PRESENT ILLNESS: This lady continues to improve. She is up in a chair today. It sounds as though she may be able to be discharged soon. She does apparently have a foul smelling vaginal discharge and this will be addressed. REVIEW OF SYSTEMS: She is not currently complaining of anything. PHYSICAL EXAMINATION: CHEST: Clear. CARDIAC: Normal. ABDOMEN: Protuberant. IMPRESSION: 1. Acute on chronic congestive heart failure. 2. Cardiomyopathy. 3. Morbid obesity. 4. Pickwickian syndrome. 5. Chronic renal failure. 6. Vaginal discharge. PLAN: 1. Clindamycin cream or suppository 100 mg at bedtime. 2. Possibly home soon. MMODL / IJN: [id number] /
[2023-10-28] MEDS: MORPHINE SULFATE 4 MG/ML SYRINGE IV PRN (20:49)
[2023-10-29] MEDS: APIXABAN 5 MG TAB PO SCH ×2 (08:53→20:53)
[2023-10-29] MEDS: ISOSORBIDE MONONITRATE ER 30 MG TAB.ER.24H PO SCH (08:53)
[2023-10-29] MEDS: PANTOPRAZOLE 40 MG TABLET PO SCH (08:53)
[2023-10-29] MEDS: FOLIC ACID 1 MG TAB PO SCH (08:54)
[2023-10-29] MEDS: FUROSEMIDE 80 MG TAB PO SCH ×2 (08:54→16:02)
[2023-10-29] MEDS: METOPROLOL SUCCINATE (ER) 100 MG TAB.ER.24H PO SCH (08:54)
[2023-10-29] MEDS: hydrALAZINE HCL 50 MG TAB PO SCH ×2 (08:54→20:53)
[2023-10-29] MEDS: NYSTATIN 100,000 UNIT/GM POWD 15 GM TOPICAL SCH ×3 (08:55→20:53)
--- NOTE | 2023-10-29 10:46 | P.PN ---
Subjective HISTORY OF PRESENT ILLNESS: Patient has been transferred out of the intensive care unit to [facility]. Patient examined this morning at the bedside. Patient currently denies any chest pain or pressure. She currently denies shortness of breath. She is maintained on oral diuretics. Vital signs are stable. PHYSICAL EXAM: VITAL SIGNS: Reviewed. GENERAL: Well-developed in no acute distress. NECK: Supple. No JVD or thyromegaly LUNGS: Respirations even and unlabored. Lungs essentially clear to auscultation bilaterally, diminished. HEART: Regular rate and rhythm. S1 and S2 heard. EXTREMITIES: Normal range of motion. No clubbing or cyanosis. Peripheral pulses intact. Trace bilateral lower extremity edema ASSESSMENT: Shortness of breath Acute on chronic heart failure with preserved EF, 50-55% Acute on chronic kidney disease Abnormal troponins, flat, likely secondary to chronic kidney disease, no evidence of acute coronary syndrome Metabolic encephalopathy, resolved Acute on chronic hypoxic and hypercapnic respiratory failure Paroxysmal atrial fibrillation Obstructive sleep apnea not on CPAP outpatient Morbid obesity History of DVT PLAN: Continue oral diuretics Continue additional cardiac medications Patient is stable for discharge home today from a cardiac standpoint She is to follow-up on an outpatient basis We will follow as needed. Please call with questions or concerns. Nurse practitioner note has been reviewed by physician. Signing provider agrees with the documented findings, assessment, and plan of care documented by NURSE CLINICIAN as a scribe. Objective - Vital Signs Vital signs: Vital Signs Temp 97.9 F 10/29/23 07:24 Pulse 61 10/29/23 07:24 Resp 17 10/29/23 07:24 BP 117/75 10/29/23 07:24 Pulse Ox 99 10/29/23 07:24 FiO2 45 10/29/23 01:00 Intake & Output 10/28/23 10/29/23 10/29/23 18:59 06:59 18:59 Intake Total 480 Output Total 1100 1000 Balance -620 -1000 Weight 219.312 kg Intake: Oral 480 Output: Urine 1100 1000 Other: Voiding Method Indwelling Catheter Indwelling Catheter - Labs CBC & Chem 7: 10/27/23 06:45 10/28/23 09:21
--- NOTE | 2023-10-29 11:34 | P.PN ---
Subjective Patient is seen in follow-up for acute kidney injury on chronic kidney disease. Renal function fairly stable last 2 days. Nonoliguric. Denies chest pain or shortness of breath. Oral intake is good. Vital signs are stable. General: No acute distress. HEENT: Head exam is unremarkable. On nasal cannula. LUNGS: No audible rhonchi or wheezes. HEART: Rate and Rhythm are regular. ABDOMEN: Obese, nontender. EXTREMITITES: Trace edema. Objective - Vital Signs Vital signs: Vital Signs Temp 97.9 F 10/29/23 07:24 Pulse 61 10/29/23 07:24 Resp 17 10/29/23 07:24 BP 117/75 10/29/23 07:24 Pulse Ox 99 10/29/23 07:24 FiO2 45 10/29/23 01:00 Intake & Output 10/28/23 10/29/23 10/29/23 18:59 06:59 18:59 Intake Total 480 Output Total 1100 1000 Balance -620 -1000 Weight 219.312 kg Intake: Oral 480 Output: Urine 1100 1000 Other: Voiding Method Indwelling Catheter Indwelling Catheter - Labs CBC & Chem 7: 10/27/23 06:45 10/28/23 09:21 Assessment and Plan Plan: Assessment: 1. Acute kidney injury secondary to ATN secondary to cardiorenal syndrome. Creatinine 4.25 on admission and stable at 3.33 as of yesterday. 2. Chronic kidney disease stage IV with recent creatinine in the range of 3- 3.5. Ultrasound from May 2023 showed no hydronephrosis but left kidney was not visualized. Serologies in the past have been negative except for positive THANH. Urine protein electrophoresis suggestive of glomerular proteinuria. UPC 2.4 g in May 2023. CAT scan from November 2022 showed no hydronephrosis. UA showed positive protein and no blood. 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 3. Acute on chronic systolic CHF with ejection fraction of 30 to 35%. 4. Volume overload. Improved with diuresis. 5. Anemia of chronic kidney disease. Received Aranesp October 28, 2023. 6. Morbid obesity. 7. Hypertension with chronic kidney disease. Controlled. Plan: Maintain Lasix. Check UA. Prior UA from May 2023 showed 3+ protein and no blood or RBCs. Repeat UPC. Advised patient to monitor her weight closely at home and to notify physician if develops worsening edema or gains more than 3 pounds in 1 week duration. Also advised to maintain low-salt diet and fluid restriction of less than 50 o unces per day. Repeat BMP and magnesium level 2 to 3 days postdischarge. Follow-up outpatient in 1 week. Also discussed kidney biopsy for definitive diagnosis with patient. States she will think about it. DC Colon catheter.
[2023-10-29 12:35] LABS: Appearance,Urine Turbid (Clear); Bacteria,Urine Many /hpf; Bilirubin,Urine Negative (Negative); Blood,Urine Large (Negative); Color,Urine Colorless; Glucose,Urine (UA) Negative (Negative); Ketones,Urine Negative (Negative); Leukocyte Esterase,Urine Large (Negative); Mucus,Urine Occasional /hpf; Nitrite,Urine Negative (Negative); Protein,Urine Trace (Negative); RBC,Urine >182 /hpf (0-5); Specific Gravity,Urine 1.013 (1.001-1.035); Urobilinogen,Urine <2.0 mg/dL (<2.0); WBC,Urine >182 /hpf (0-5)
[2023-10-29 12:55] LABS: Creatinine,Urine Random 22.4 mg/dL; Protein/Creatinine Ratio,Urine 1.83
--- NOTE | 2023-10-29 13:02 | P.PN ---
Subjective Progress Note Date: 10/29/23 This is a 48-year-old -[place]in[place] female, known history of congestive heart failure hypertension more than obesity obstructive sleep apnea syndrome, chronic hypoxic respiratory failure, previous ventilator dependent respiratory failure, chronic kidney disease stage IV, left upper extremity lymphedema, anemia, frequent episodes of urinary tract infections, multiple previous admissions with congestive heart failure and hypoxic and hypercapnic respiratory failure. Patient was admitted today with chief complaint of shortness of breath, and increased lower extremity swelling. Upon my evaluation, patient was noted to be on BiPAP, lethargic, opens eyes to verbal stimuli, and her chest x-ray clearly showed evidence of pulmonary edema. ABG on admission showed a pO2 of 82 pCO2 60 pH of 7.18. Her labs clearly showed evidence of worsening renal failure with a BUN of 88 creatinine 4.23, hence I suggested starting the patient on IV Lasix drip, and I also suggested admitting the patient to the ICU since her overall pulmonary status seems to be marginal at best. Her BNP level was over 10,000. And troponin level was elevated at around 0.060. Previous echocardiogram on this patient showed preserved systolic function with ejection fraction of 50-55% labs today showed WBC count 6.1 hemoglobin 11.2. Sodium 144 potassium 4.6 bicarb is 20 BUN is 88 creatinine 4.23 Patient evaluated today on 10/23/2022, I saw this patient yesterday in consultation, and I transferred the patient to the ICU. Patient was in acute on chronic diastolic congestive heart failure, I started the patient on Lasix drip at 10 mg/h, she was kept on BiPAP 16/6/35%, and reevaluated today, seems to be definitely more awake, more responsive compared to yesterday, patient is feeling better, and she has had significant urine output since admission. Patient has been in negative fluid balance almost a liter and a half over the last 12 hours. Yesterday we had difficulty placing a Colon catheter, however the nurses were finally successful in placing 1, and seems to be draining well and functional. Right now patient has a urine output of 100 up to 170 cc/h on the Lasix drip. She was seen by nephrology in consultation and felt to have acute kidney injury, cardiorenal nonoliguric, and the recommendation was to continue Lasix drip WBC count today is 5.5 hemoglobin is 10.1. Basic metabolic profile is normal bicarb is 21 BUN is 91 creatinine 4.03. Patient was reevaluated today on 10/23/2023, remains on Lasix drip, remains in negative balance, feeling better, and she is now on BiPAP 16/6/35%. Patient is about -4 L/fluid balance. Her creatinine is a bit high at 4.49 today. Labs this morning showed WBC count of 5.6 hemoglobin 9.7 sodium 145 potassium 5.3 bicarb is 18 BUN 95 creatinine 4.49, patient is being followed by nephrology and she is also being followed by cardiology. Clinically there is some improvement, but nonetheless patient continues to be marginal at best. Clearly the patient has congestive heart failure with preserved systolic function. And she had similar presentations in the past her mentation seems to be improving, and her metabolic encephalopathy is getting better. Patient was reevaluated today on 10/24/2023, remains on Lasix drip however it was cut down to 5 mg/h. Urine output ranging between 100 to 200 cc/h, patient is intermittently on BiPAP, and her creatinine is pending today. Yesterday creatinine was 4.49. Chest x-ray is showing improvement in her pulmonary edema clinically the patient is feeling better. Patient declined having labs drawn today. Patient was reevaluated today on 10/25/2023, remains in the ICU, remains on Lasix drip at 5 mg/h, remains in negative fluid balance, patient is -5 L in the last 48 hours. She is now on nasal cannula at 3 L, not in any distress, intermittently on BiPAP 16/6/45%. Today I am planning to discontinue Lasix infusion, and give the patient Lasix 80 mg IV push twice daily and will likely transfer the patient to a cardiac floor today 3 S. WBC is 4.6 hemoglobin 9.6. Basic metabolic profile is normal BUN is 92 creatinine down to 3.92. Nephrology is entertaining the possibility of kidney biopsy for further evaluation of her abnormal labs including elevated THANH, elevated kappa and lambda chains but the ratio does not seem to be significantly elevated. And nephrology is considering kidney biopsy Patient was reevaluated today on 10/26/2023 patient remains in the ICU as an overflow, intermittently on BiPAP and alternating with nasal cannula, feeling much better, breathing easier, continues to have significant urine output 3.9 L over the last 24 hours. Maintained on Lasix at 80 mg IV push every 12 hours, carla thao is off Lasix drip. Patient clearly has acute kidney injury cardiorenal, nonoliguric,WBC count today is 4.6 hemoglobin 9.6. Basic metabolic profile is normal BUN is 83 creatinine down to 3.39, no chest x-ray was felt to be necessary today Patient was reevaluated today on 10/27/2023, patient continues to do well in the ICU as an overflow, off Lasix drip for the last 2 days she is now on Lasix 80 mg IV push every 12 hours urine output almost 1.8 L over the last 24 hours. Her renal profile seems to be improving decreased creatinine to 3.2. Rest of her labs are basically unremarkable. Potassium is 4.2 bicarb is 29. Overall, the patient is making a dramatic improvement The patient is seen today October 28, 2023 in follow-up in the intensive care unit. She remains at 3 S. overflow. She is sitting up in a chair currently. Awake and alert in no acute distress. She is maintaining O2 saturations in the 90s on 3 L/min per nasal cannula. She did utilize BiPAP throughout the night 16/6 and 45% FiO2. X-ray continues to show cardiomegaly with some pulmonary vascular congestion and improvement in the right basilar infiltrate. Sodium 139. Potassium 4.2. Bicarb 25. BUN 76. Creatinine 3.33. Glucose 119. She is continued on oral diuretics. Anticoagulated with Eliquis. The patient is seen today October 29, 2023 in follow-up on the regular medical floor. She is currently sitting up in bed. Awake and alert in no acute distress. She was moved out of the intensive care unit yesterday. She denies any worsening shortness of breath, cough or congestion. She is maintaining good O2 saturations in the 90s on 4 L/min per nasal cannula. She is utilizing BiPAP throughout the night and during the day while napping at 16/6 and 45% FiO2. She remains in a -1.6 L balance the past 24 hours. Continues on oral diuretics. Anticoagulated with Eliquis. Urinalysis revealing suspected UTI. Objective - Vital Signs Vital signs: Vital Signs Temp 97.9 F 10/29/23 07:24 Pulse 61 10/29/23 07:24 Resp 17 01/30/24 07:24 BP 117/75 10/29/23 07:24 Pulse Ox 99 10/29/23 07:24 FiO2 45 10/29/23 01:00 Intake & Output 10/28/23 10/29/23 10/29/23 18:59 06:59 18:59 Intake Total 480 Output Total 1100 1000 Balance -620 -1000 Weight 219.312 kg Intake: Oral 480 Output: Urine 1100 1000 Other: Voiding Method Indwelling Catheter Indwelling Catheter Indwelling Catheter - Exam GENERAL EXAM: Alert, morbidly obese 48-year-old female, sitting up in bed, on 4 L nasal cannula, comfortable in no apparent distress. HEAD: Normocephalic. EYES: Normal reaction of pupils, equal size. NOSE: Clear with pink turbinates. THROAT: No erythema or exudates. NECK: No masses, no JVD. CHEST: No chest wall deformity. LUNGS: Equal air entry with crackles in the right base. Diminished. CVS: S1 and S2 normal with no audible murmur, regular rhythm. ABDOMEN: Obese, unable to appreciate hepatosplenomegaly, normal bowel sounds, no guarding or rigidity. SPINE: No scoliosis or deformity SKIN: No rashes CENTRAL NERVOUS SYSTEM: No focal deficits, tone is normal in all 4 extremities. EXTREMITIES: There is 1-2+ peripheral edema. No clubbing, no cyanosis. Peripheral pulses are intact. - Labs CBC & Chem 7: 10/27/23 06:45 10/28/23 09:21 Labs: Abnormal Lab Results - Last 24 Hours (Table) 10/29/23 Range/Units 12:13 Urine Appearance Turbid H (Clear) Urine Protein Trace H (Negative) Urine Blood Large H (Negative) Ur Leukocyte Esterase Large H (Negative) Urine RBC >182 H (0-5) /hpf Urine WBC >182 H (0-5) /hpf Urine WBC Clumps Many H (None) /hpf Urine Bacteria Many H (None) /hpf Urine Mucus Occasional H (None) /hpf Assessment and Plan Assessment: Acute on chronic hypoxic and hypercapnic respiratory failure secondary to acute exacerbation of chronic diastolic congestive heart failure Acute on chronic diastolic congestive heart failure Morbid obesity, BMI over 75 Acute on chronic kidney disease Urinary tract infection, culture pending Acute metabolic encephalopathy, recovered Paroxysmal atrial fibrillation Obesity/hypoventilation syndrome Obstructive sleep apnea syndrome, not on CPAP or BiPAP at home History of DVT. Acute on chronic kidney disease Benign essential hypertension History of respiratory failure requiring intubation and mechanical ventilation Anemia of chronic disease Chronic left upper extremity lymphedema Plan: The patient was seen and evaluated Labs and medications reviewed Continue the current treatment plan Remains in a negative balance Titrate the FiO2 as tolerated Continue BiPAP at night and during the day while napping Increase her activity as tolerated We will continue to follow This patient was seen independently by the pulmonary nurse practitioner addressing pulmonary issues I have personally seen and examined the patient, performed the documentation and the assessment and plan as written. Number of minutes spent on the visit: 24.
[2023-10-29] MEDS: MORPHINE SULFATE 4 MG/ML SYRINGE IV PRN (20:56)
--- NOTE | 2023-10-29 21:58 | PN ---
PROGRESS NOTE CHIEF COMPLAINT: Chronic congestive heart failure and renal failure. HISTORY OF PRESENT ILLNESS: This lady is to be discharged. It is thought that she is going to a residential today. PHYSICAL EXAMINATION: GENERAL: She is awake and alert. CHEST: Quite clear. CARDIAC: Unremarkable. IMPRESSION: 1. Acute on chronic congestive heart failure. 2. Morbid obesity. 3. Chronic kidney disease. PLAN: Move to residential today. MMODL / IJN: [id number] /
--- NOTE | 2023-10-29 23:21 | PN ---
PROGRESS NOTE DATE OF SERVICE: 10/24/2023 CHIEF COMPLAINT: Congestive heart failure and renal failure. HISTORY OF PRESENT ILLNESS: This lady continues to slowly improve. Renal function is slightly better. She is breathing on her own. REVIEW OF SYSTEMS: She denies any chest pain or abdominal pain. PHYSICAL EXAMINATION: CHEST: She has good breath sounds bilaterally. CARDIAC: Unremarkable. ABDOMEN: Soft, protuberant. IMPRESSION: 1. Acute congestive heart failure. 2. Chronic congestive heart failure. 3. Cardiomyopathy. 4. Pickwickian syndrome. 5. Chronic kidney disease. PLAN: Continue with current ICU management and follow with Cardiology and Nephrology as well as pulmonology. MMODL / IJN: [id number] /
--- NOTE | 2023-10-30 00:46 | PN ---
PROGRESS NOTE DATE OF SERVICE: 10/25/2023 CHIEF COMPLAINT: Acute on chronic congestive heart failure and renal failure. HISTORY OF PRESENT ILLNESS: This lady is doing a little bit better. She is on nasal O2 and off BiPAP. Kidney function is very slightly better. PHYSICAL EXAMINATION: CHEST: Clear. CARDIAC: Normal. ABDOMEN: Soft and nontender. IMPRESSION: 1. Acute congestive heart failure. 2. Acute on chronic any kidney failure. PLAN: Continue with ICU management until she can be transferred to step-down unit and then discharge back home. MMODL / IJN: [id number] /
[2023-10-30] MEDS: FUROSEMIDE 80 MG TAB PO SCH ×2 (10:59→17:22)
[2023-10-30] MEDS: ISOSORBIDE MONONITRATE ER 30 MG TAB.ER.24H PO SCH (10:59)
[2023-10-30] MEDS: APIXABAN 5 MG TAB PO SCH ×2 (10:59→21:21)
[2023-10-30] MEDS: PANTOPRAZOLE 40 MG TABLET PO SCH (10:59)
[2023-10-30] MEDS: METOPROLOL SUCCINATE (ER) 100 MG TAB.ER.24H PO SCH (11:00)
[2023-10-30] MEDS: hydrALAZINE HCL 50 MG TAB PO SCH ×2 (11:00→21:21)
[2023-10-30] MEDS: FOLIC ACID 1 MG TAB PO SCH (11:00)
[2023-10-30] MEDS: NYSTATIN 100,000 UNIT/GM POWD 15 GM TOPICAL SCH ×3 (11:07→21:24)
[2023-10-30 11:46] LABS: BUN/Creat Ratio 19.97 Ratio (12.00-20.00); Blood Urea Nitrogen 69.9 mg/dL (9.0-27.0); Calcium 9.3 mg/dL (8.7-10.3); Chloride 111 mmol/L (96-109); Glucose 79 mg/dL (70-110); Magnesium 2.4 mg/dL (1.5-2.4); Potassium 4.1 mmol/L (3.5-5.5); Sodium 154 mmol/L (135-145)
--- NOTE | 2023-10-30 11:53 | P.PN ---
Subjective Patient is seen in follow-up for acute kidney injury on chronic kidney disease. Renal function fairly stable. Sodium up to 154. Nonoliguric. Denies chest pain or shortness of breath. Oral intake is good. Vital signs are stable. General: No acute distress. HEENT: Head exam is unremarkable. On nasal cannula. LUNGS: No audible rhonchi or wheezes. HEART: Rate and Rhythm are regular. ABDOMEN: Obese, nontender. EXTREMITITES: Trace edema. Objective - Vital Signs Vital signs: Vital Signs Temp 97.7 F 10/30/23 06:58 Pulse 58 L 10/30/23 06:58 Resp 17 10/30/23 06:58 BP 121/82 10/30/23 06:58 Pulse Ox 98 10/30/23 06:58 FiO2 45 10/30/23 03:43 Intake & Output 10/29/23 10/30/23 10/30/23 18:59 06:59 18:59 Intake Total 560 Output Total 700 150 Balance -700 410 Weight 218.133 kg Intake: Oral 560 Output: Urine 700 150 Other: Voiding Method Bedside Commode Bedside Commode Bedside Commode External Catheter External Catheter Incontinent # Voids 1 # Bowel Movements 1 - Labs CBC & Chem 7: 10/27/23 06:45 10/30/23 06:28 Labs: Abnormal Lab Results - Last 24 Hours (Table) 10/29/23 10/30/23 Range/Units 12:13 06:28 Sodium 154 H (135-145) mmol/L Chloride 111 H (96-109) mmol/L Anion Gap 15.00 H (4.00-12.00) mmol/L BUN 69.9 H (9.0-27.0) mg/dL Creatinine 3.5 H (0.6-1.5) mg/dL Est GFR (CKD-EPI) 15 L (>=60) Urine Appearance Turbid H (Clear) Urine Protein Trace H (Negative) Urine Blood Large H (Negative) Ur Leukocyte Esterase Large H (Negative) Urine RBC >182 H (0-5) /hpf Urine WBC >182 H (0-5) /hpf Urine WBC Clumps Many H (None) /hpf Urine Bacteria Many H (None) /hpf Urine Mucus Occasional H (None) /hpf Assessment and Plan Plan: Assessment: 1. Acute kidney injury secondary to ATN secondary to cardiorenal syndrome. Creatinine 4.25 on admission and fairly stable at 3.53. 2. Chronic kidney disease stage IV with recent creatinine in the range of 3- 3.5. Ultrasound from May 2023 showed no hydronephrosis but left kidney was not visualized. Serologies in the past have been negative except for positive THANH. Urine protein electrophoresis suggestive of glomerular proteinuria. UPC 2.4 g in May 2023. CAT scan from November 2022 showed no hydronephrosis. UA from May 2023 showed positive protein and no blood. 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 Only trace protein noted on UA from this admission and UPC 1.8 g. No paraprotein or Bence-Manzo proteins noted on immunofixation. 3. Acute on chronic systolic CHF with ejection fraction of 30 to 35%. 4. Volume overload. Improved with diuresis. 5. Anemia of chronic kidney disease. Received Aranesp October 28, 2023. 6. Morbid obesity. 7. Hypertension with chronic kidney disease. Controlled. 8. Hypernatremia from free water diuresis and lack of oral water intake. Plan: Encouraged oral intake, including free water. Start D5W at 100 cc an hour. Repeat sodium level this evening. Maintain Lasix. Advised patient to monitor her weight closely at home and to notify physician if develops worsening edema or gains more than 3 pounds in 1 week duration. Also advised to maintain low-salt diet. Repeat BMP and magnesium level 2 to 3 days postdischarge. Follow-up outpatient in 1 week. Also discussed kidney biopsy for definitive diagnosis with patient. States she will think about it. Colon catheter removed October 29, 2023.
--- NOTE | 2023-10-30 12:43 | P.PN ---
Subjective Progress Note Date: 10/30/23 This is a 48-year-old -[place] female, known history of congestive heart failure hypertension more than obesity obstructive sleep apnea syndrome, chronic hypoxic respiratory failure, previous ventilator dependent respiratory failure, chronic kidney disease stage IV, left upper extremity lymphedema, anemia, frequent episodes of urinary tract infections, multiple previous admissions with congestive heart failure and hypoxic and hypercapnic respiratory failure. Patient was admitted today with chief complaint of shortness of breath, and increased lower extremity swelling. Upon my evaluation, patient was noted to be on BiPAP, lethargic, opens eyes to verbal stimuli, and her chest x-ray clearly showed evidence of pulmonary edema. ABG on admission showed a pO2 of 82 pCO2 60 pH of 7.18. Her labs clearly showed evidence of worsening renal failure with a BUN of 88 creatinine 4.23, hence I suggested starting the patient on IV Lasix drip, and I also suggested admitting the patient to the ICU since her overall pulmonary status seems to be marginal at best. Her BNP level was over 10,000. And troponin level was elevated at around 0.060. Previous echocardiogram on this patient showed preserved systolic function with ejection fraction of 50-55% labs today showed WBC count 6.1 hemoglobin 11.2. Sodium 144 potassium 4.6 bicarb is 20 BUN is 88 creatinine 4.23 Patient evaluated today on 10/23/2022, I saw this patient yesterday in consultation, and I transferred the patient to the ICU. Patient was in acute on chronic diastolic congestive heart failure, I started the patient on Lasix drip at 10 mg/h, she was kept on BiPAP 16/6/35%, and reevaluated today, seems to be definitely more awake, more responsive compared to yesterday, patient is feeling better, and she has had significant urine output since admission. Patient has been in negative fluid balance almost a liter and a half over the last 12 hours. Yesterday we had difficulty placing a Colon catheter, however the nurses were finally successful in placing 1, and seems to be draining well and functional. Right now patient has a urine output of 100 up to 170 cc/h on the Lasix drip. She was seen by nephrology in consultation and felt to have acute kidney injury, cardiorenal nonoliguric, and the recommendation was to continue Lasix drip WBC count today is 5.5 hemoglobin is 10.1. Basic metabolic profile is normal bicarb is 21 BUN is 91 creatinine 4.03. Patient was reevaluated today on 10/23/2023, remains on Lasix drip, remains in negative balance, feeling better, and she is now on BiPAP 16/6/35%. Patient is about -4 L/fluid balance. Her creatinine is a bit high at 4.49 today. Labs this morning showed WBC count of 5.6 hemoglobin 9.7 sodium 145 potassium 5.3 bicarb is 18 BUN 95 creatinine 4.49, patient is being followed by nephrology and she is also being followed by cardiology. Clinically there is some improvement, but nonetheless patient continues to be marginal at best. Clearly the patient has congestive heart failure with preserved systolic function. And she had similar presentations in the past her mentation seems to be improving, and her metabolic encephalopathy is getting better. Patient was reevaluated today on 10/24/2023, remains on Lasix drip however it was cut down to 5 mg/h. Urine output ranging between 100 to 200 cc/h, patient is intermittently on BiPAP, and her creatinine is pending today. Yesterday creatinine was 4.49. Chest x-ray is showing improvement in her pulmonary edema clinically the patient is feeling better. Patient declined having labs drawn today. Patient was reevaluated today on 10/25/2023, remains in the ICU, remains on Lasix drip at 5 mg/h, remains in negative fluid balance, patient is -5 L in the last 48 hours. She is now on nasal cannula at 3 L, not in any distress, intermittently on BiPAP 16/6/45%. Today I am planning to discontinue Lasix infusion, and give the patient Lasix 80 mg IV push twice daily and will likely transfer the patient to a cardiac floor today 3 S. WBC is 4.6 hemoglobin 9.6. Basic metabolic profile is normal BUN is 92 creatinine down to 3.92. Nephrology is entertaining the possibility of kidney biopsy for further evaluation of her abnormal labs including elevated THANH, elevated kappa and lambda chains but the ratio does not seem to be significantly elevated. And nephrology is considering kidney biopsy Patient was reevaluated today on 10/26/2023 patient remains in the ICU as an overflow, intermittently on BiPAP and alternating with nasal cannula, feeling much better, breathing easier, continues to have significant urine output 3.9 L over the last 24 hours. Maintained on Lasix at 80 mg IV push every 12 hours, carla thao is off Lasix drip. Patient clearly has acute kidney injury cardiorenal, nonoliguric,WBC count today is 4.6 hemoglobin 9.6. Basic metabolic profile is normal BUN is 83 creatinine down to 3.39, no chest x-ray was felt to be necessary today Patient was reevaluated today on 10/27/2023, patient continues to do well in the ICU as an overflow, off Lasix drip for the last 2 days she is now on Lasix 80 mg IV push every 12 hours urine output almost 1.8 L over the last 24 hours. Her renal profile seems to be improving decreased creatinine to 3.2. Rest of her labs are basically unremarkable. Potassium is 4.2 bicarb is 29. Overall, the patient is making a dramatic improvement The patient is seen today October 28, 2023 in follow-up in the intensive care unit. She remains at 3 S. overflow. She is sitting up in a chair currently. Awake and alert in no acute distress. She is maintaining O2 saturations in the 90s on 3 L/min per nasal cannula. She did utilize BiPAP throughout the night 16/6 and 45% FiO2. X-ray continues to show cardiomegaly with some pulmonary vascular congestion and improvement in the right basilar infiltrate. Sodium 139. Potassium 4.2. Bicarb 25. BUN 76. Creatinine 3.33. Glucose 119. She is continued on oral diuretics. Anticoagulated with Eliquis. The patient is seen today October 29, 2023 in follow-up on the regular medical floor. She is currently sitting up in bed. Awake and alert in no acute distress. She was moved out of the intensive care unit yesterday. She denies any worsening shortness of breath, cough or congestion. She is maintaining good O2 saturations in the 90s on 4 L/min per nasal cannula. She is utilizing BiPAP throughout the night and during the day while napping at 16/6 and 45% FiO2. She remains in a -1.6 L balance the past 24 hours. Continues on oral diuretics. Anticoagulated with Eliquis. Urinalysis revealing suspected UTI. The patient is seen today October 30, 2023 and follow-up on the regular medical floor. She is resting comfortably in bed. Awake and alert in no acute distress. She is maintaining good O2 saturations in the 90s on 3 L/min per nasal cannula. During the evening she wears BiPAP 16/6 and 45% FiO2. She remains on oral diuretics. Anticoagulated with Eliquis. Sodium 154. Potassium 4.1. Bicarb 28. BUN 70. Creatinine 3.5. She is now receiving D5 W at 100 MLS per hour for her hypernatremia. Nephrology is on the case. She is currently in a -300 mL balance. Objective - Vital Signs Vital signs: Vital Signs Temp 97.7 F 10/30/23 06:58 Pulse 58 L 10/30/23 06:58 Resp 17 10/30/23 06:58 BP 121/82 10/30/23 06:58 Pulse Ox 98 10/30/23 06:58 FiO2 45 10/30/23 03:43 Intake & Output 10/29/23 10/30/23 10/30/23 18:59 06:59 18:59 Intake Total 560 Output Total 700 150 Balance -700 410 Weight 218.133 kg Intake: Oral 560 Output: Urine 700 150 Other: Voiding Method Bedside Commode Bedside Commode Bedside Commode External Catheter External Catheter Incontinent # Voids 1 # Bowel Movements 1 - Exam GENERAL EXAM: Alert, morbidly obese 48-year-old female, resting in bed, on 3 L nasal cannula, in no apparent distress. HEAD: Normocephalic. EYES: Normal reaction of pupils, equal size. NOSE: Clear with pink turbinates. THROAT: No erythema or exudates. NECK: No masses, no JVD. CHEST: No chest wall deformity. LUNGS: Equal air entry with crackles in the right base. Diminished. CVS: S1 and S2 normal with no audible murmur, regular rhythm. ABDOMEN: Obese, unable to appreciate hepatosplenomegaly, normal bowel sounds, no guarding or rigidity. SPINE: No scoliosis or deformity SKIN: No rashes CENTRAL NERVOUS SYSTEM: No focal deficits, tone is normal in all 4 extremities. EXTREMITIES: There is 1-2+ peripheral edema. No clubbing, no cyanosis. Peripheral pulses are intact. - Labs CBC & Chem 7: 10/27/23 06:45 10/30/23 06:28 Labs: Abnormal Lab Results - Last 24 Hours (Table) 10/30/23 Range/Units 06:28 Sodium 154 H (135-145) mmol/L Chloride 111 H (96-109) mmol/L Anion Gap 15.00 H (4.00-12.00) mmol/L BUN 69.9 H (9.0-27.0) mg/dL Creatinine 3.5 H (0.6-1.5) mg/dL Est GFR (CKD-EPI) 15 L (>=60) Assessment and Plan Assessment: Acute on chronic hypoxic and hypercapnic respiratory failure secondary to acute exacerbation of chronic diastolic congestive heart failure Acute on chronic diastolic congestive heart failure Hypernatremia Morbid obesity, BMI over 75 Acute on chronic kidney disease Urinary tract infection, culture pending Acute metabolic encephalopathy, recovered Paroxysmal atrial fibrillation Obesity/hypoventilation syndrome Obstructive sleep apnea syndrome, not on CPAP or BiPAP at home History of DVT. Acute on chronic kidney disease Benign essential hypertension History of respiratory failure requiring intubation and mechanical ventilation Anemia of chronic disease Chronic left upper extremity lymphedema Plan: The patient was seen and evaluated Labs and medications reviewed D5W at 100 MLS per hour Remains in a negative balance Titrate the FiO2 as tolerated Increase her activity as tolerated We will continue to follow This patient was seen independently by the pulmonary nurse practitioner addressing pulmonary issues I have personally seen and examined the patient, performed the documentation and the assessment and plan as written. Number of minutes spent on the visit: 22.
[2023-10-30] MEDS: DEXTROSE 5% IN WATER 1,000 ML IV SCH ×2 (17:23→21:35)
[2023-10-30] MEDS: MORPHINE SULFATE 4 MG/ML SYRINGE IV PRN (21:24)
--- NOTE | 2023-10-31 00:49 | PN ---
PROGRESS NOTE DATE OF SERVICE: 10/30/2023 CHIEF COMPLAINT: Congestive heart failure, and renal failure. HISTORY OF PRESENT ILLNESS: This lady is doing fairly well. Apparently, she has a fdc bed in [place]. She is fairly stable. BUN and creatinine have not changed a great deal. PHYSICAL EXAMINATION: CHEST: She has good breath sounds bilaterally. CARDIAC: Normal. ABDOMEN: Soft, and protuberant. NEUROLOGIC: She is awake and alert and seems to be neurologically intact. IMPRESSION: 1. Acute on chronic congestive heart failure with preserved ejection fraction. 2. Cardiomyopathy. 3. Morbid obesity. 4. Pickwickian syndrome. 5. Sleep apnea. 6. Chronic kidney disease. 7. Slightly elevated sodium at 154. PLAN: Probably discharge tomorrow. MMODL / IJN: [id number] /
[2023-10-31 02:55] LABS: % Iron Saturation 11.63 (12.00-45.00)
[2023-10-31 03:26] LABS: Ferritin 67.1 ng/mL (10.0-291.0)
[2023-10-31] MEDS: ISOSORBIDE MONONITRATE ER 30 MG TAB.ER.24H PO SCH (09:48)
[2023-10-31] MEDS: FOLIC ACID 1 MG TAB PO SCH (09:48)
[2023-10-31] MEDS: METOPROLOL SUCCINATE (ER) 100 MG TAB.ER.24H PO SCH (09:48)
[2023-10-31] MEDS: APIXABAN 5 MG TAB PO SCH ×2 (09:48→20:08)
[2023-10-31] MEDS: hydrALAZINE HCL 50 MG TAB PO SCH ×2 (09:48→20:08)
[2023-10-31] MEDS: PANTOPRAZOLE 40 MG TABLET PO SCH (09:48)
[2023-10-31] MEDS: FUROSEMIDE 80 MG TAB PO SCH ×2 (09:48→16:58)
[2023-10-31] MEDS: NYSTATIN 100,000 UNIT/GM POWD 15 GM TOPICAL SCH ×3 (09:50→21:11)
[2023-10-31] MEDS: DEXTROSE 5% IN WATER 1,000 ML IV SCH (10:09)
--- NOTE | 2023-10-31 12:54 | P.PN ---
Subjective Patient is seen in follow-up for acute kidney injury on chronic kidney disease. Renal function fairly stable. Repeat sodium was normal yesterday. Per nurse, she did not receive D5W. Nonoliguric. Denies chest pain or shortness of breath. Oral intake is good. Vital signs are stable. General: No acute distress. HEENT: Head exam is unremarkable. On nasal cannula. LUNGS: No audible rhonchi or wheezes. HEART: Rate and Rhythm are regular. ABDOMEN: Obese, nontender. EXTREMITITES: Trace edema. Objective - Vital Signs Vital signs: Vital Signs Temp 97.6 F 10/31/23 07:56 Pulse 53 L 10/31/23 07:56 Resp 19 10/31/23 07:56 BP 118/72 10/31/23 07:56 Pulse Ox 100 10/31/23 07:56 FiO2 45 10/31/23 07:51 Intake & Output 10/30/23 10/31/23 10/31/23 18:59 06:59 18:59 Weight 165 kg Other: Voiding Method Bedside Commode Bedside Commode Incontinent Incontinent # Voids 5 2 # Bowel Movements 1 - Labs CBC & Chem 7: 10/27/23 06:45 10/30/23 20:02 Labs: Abnormal Lab Results - Last 24 Hours (Table) 10/30/23 Range/Units 20:02 Iron 42 L (50-170) UG/DL % Saturation 11.63 L (12.00-45.00) Assessment and Plan Plan: Assessment: 1. Acute kidney injury secondary to ATN secondary to cardiorenal syndrome. Creatinine 4.25 on admission and fairly stable at 3.5 yesterday. 2. Chronic kidney disease stage IV with recent creatinine in the range of 3- 3.5. Ultrasound from May 2023 showed no hydronephrosis but left kidney was not visualized. Serologies in the past have been negative except for positive THANH. Urine protein electrophoresis suggestive of glomerular proteinuria. UPC 2.4 g in May 2023. CAT scan from November 2022 showed no hydronephrosis. UA from May 2023 showed positive protein and no blood. 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 Only trace protein noted on UA from this admission and UPC 1.8 g. No paraprotein or Bence-Manzo proteins noted on i mmunofixation. 3. Acute on chronic systolic CHF with ejection fraction of 30 to 35%. 4. Volume overload. Improved with diuresis. 5. Anemia of chronic kidney disease. Received Aranesp October 28, 2023. Iron deficiency noted. 6. Morbid obesity. 7. Hypertension with chronic kidney disease. Controlled. 8. Hypernatremia from free water diuresis and lack of oral water intake. Likely lab error. Repeat sodium was normal. Plan: Encouraged oral intake. Maintain Lasix. Advised patient to monitor her weight closely at home and to notify physician if develops worsening edema or gains more than 3 pounds in 1 week duration. Also advised to maintain low-salt diet. Repeat BMP and magnesium level 2 to 3 days postdischarge. Follow-up outpatient in 1 week. Also discussed kidney biopsy for definitive diagnosis with patient. States she will think about it. Colon catheter removed October 29, 2023. IV iron x 1 dose today.
--- NOTE | 2023-10-31 13:13 | P.PN ---
Subjective Progress Note Date: 10/31/23 This is a 48-year-old -[place] female, known history of congestive heart failure hypertension more than obesity obstructive sleep apnea syndrome, chronic hypoxic respiratory failure, previous ventilator dependent respiratory failure, chronic kidney disease stage IV, left upper extremity lymphedema, anemia, frequent episodes of urinary tract infections, multiple previous admissions with congestive heart failure and hypoxic and hypercapnic respiratory failure. Patient was admitted today with chief complaint of shortness of breath, and increased lower extremity swelling. Upon my evaluation, patient was noted to be on BiPAP, lethargic, opens eyes to verbal stimuli, and her chest x-ray clearly showed evidence of pulmonary edema. ABG on admission showed a pO2 of 82 pCO2 60 pH of 7.18. Her labs clearly showed evidence of worsening renal failure with a BUN of 88 creatinine 4.23, hence I suggested starting the patient on IV Lasix drip, and I also suggested admitting the patient to the ICU since her overall pulmonary status seems to be marginal at best. Her BNP level was over 10,000. And troponin level was elevated at around 0.060. Previous echocardiogram on this patient showed preserved systolic function with ejection fraction of 50-55% labs today showed WBC count 6.1 hemoglobin 11.2. Sodium 144 potassium 4.6 bicarb is 20 BUN is 88 creatinine 4.23 Patient evaluated today on 10/23/2022, I saw this patient yesterday in consultation, and I transferred the patient to the ICU. Patient was in acute on chronic diastolic congestive heart failure, I started the patient on Lasix drip at 10 mg/h, she was kept on BiPAP 16/6/35%, and reevaluated today, seems to be definitely more awake, more responsive compared to yesterday, patient is feeling better, and she has had significant urine output since admission. Patient has been in negative fluid balance almost a liter and a half over the last 12 hours. Yesterday we had difficulty placing a Colon catheter, however the nurses were finally successful in placing 1, and seems to be draining well and functional. Right now patient has a urine output of 100 up to 170 cc/h on the Lasix drip. She was seen by nephrology in consultation and felt to have acute kidney injury, cardiorenal nonoliguric, and the recommendation was to continue Lasix drip WBC count today is 5.5 hemoglobin is 10.1. Basic metabolic profile is normal bicarb is 21 BUN is 91 creatinine 4.03. Patient was reevaluated today on 10/23/2023, remains on Lasix drip, remains in negative balance, feeling better, and she is now on BiPAP 16/6/35%. Patient is about -4 L/fluid balance. Her creatinine is a bit high at 4.49 today. Labs this morning showed WBC count of 5.6 hemoglobin 9.7 sodium 145 potassium 5.3 bicarb is 18 BUN 95 creatinine 4.49, patient is being followed by nephrology and she is also being followed by cardiology. Clinically there is some improvement, but nonetheless patient continues to be marginal at best. Clearly the patient has congestive heart failure with preserved systolic function. And she had similar presentations in the past her mentation seems to be improving, and her metabolic encephalopathy is getting better. Patient was reevaluated today on 10/24/2023, remains on Lasix drip however it was cut down to 5 mg/h. Urine output ranging between 100 to 200 cc/h, patient is intermittently on BiPAP, and her creatinine is pending today. Yesterday creatinine was 4.49. Chest x-ray is showing improvement in her pulmonary edema clinically the patient is feeling better. Patient declined having labs drawn today. Patient was reevaluated today on 10/25/2023, remains in the ICU, remains on Lasix drip at 5 mg/h, remains in negative fluid balance, patient is -5 L in the last 48 hours. She is now on nasal cannula at 3 L, not in any distress, intermittently on BiPAP 16/6/45%. Today I am planning to discontinue Lasix infusion, and give the patient Lasix 80 mg IV push twice daily and will likely transfer the patient to a cardiac floor today 3 S. WBC is 4.6 hemoglobin 9.6. Basic metabolic profile is normal BUN is 92 creatinine down to 3.92. Nephrology is entertaining the possibility of kidney biopsy for further evaluation of her abnormal labs including elevated THANH, elevated kappa and lambda chains but the ratio does not seem to be significantly elevated. And nephrology is considering kidney biopsy Patient was reevaluated today on 10/26/2023 patient remains in the ICU as an overflow, intermittently on BiPAP and alternating with nasal cannula, feeling much better, breathing easier, continues to have significant urine output 3.9 L over the last 24 hours. Maintained on Lasix at 80 mg IV push every 12 hours, carla thao is off Lasix drip. Patient clearly has acute kidney injury cardiorenal, nonoliguric,WBC count today is 4.6 hemoglobin 9.6. Basic metabolic profile is normal BUN is 83 creatinine down to 3.39, no chest x-ray was felt to be necessary today Patient was reevaluated today on 10/27/2023, patient continues to do well in the ICU as an overflow, off Lasix drip for the last 2 days she is now on Lasix 80 mg IV push every 12 hours urine output almost 1.8 L over the last 24 hours. Her renal profile seems to be improving decreased creatinine to 3.2. Rest of her labs are basically unremarkable. Potassium is 4.2 bicarb is 29. Overall, the patient is making a dramatic improvement The patient is seen today October 28, 2023 in follow-up in the intensive care unit. She remains at 3 S. overflow. She is sitting up in a chair currently. Awake and alert in no acute distress. She is maintaining O2 saturations in the 90s on 3 L/min per nasal cannula. She did utilize BiPAP throughout the night 16/6 and 45% FiO2. X-ray continues to show cardiomegaly with some pulmonary vascular congestion and improvement in the right basilar infiltrate. Sodium 139. Potassium 4.2. Bicarb 25. BUN 76. Creatinine 3.33. Glucose 119. She is continued on oral diuretics. Anticoagulated with Eliquis. The patient is seen today October 29, 2023 in follow-up on the regular medical floor. She is currently sitting up in bed. Awake and alert in no acute distress. She was moved out of the intensive care unit yesterday. She denies any worsening shortness of breath, cough or congestion. She is maintaining good O2 saturations in the 90s on 4 L/min per nasal cannula. She is utilizing BiPAP throughout the night and during the day while napping at 16/6 and 45% FiO2. She remains in a -1.6 L balance the past 24 hours. Continues on oral diuretics. Anticoagulated with Eliquis. Urinalysis revealing suspected UTI. The patient is seen today October 30, 2023 and follow-up on the regular medical floor. She is resting comfortably in bed. Awake and alert in no acute distress. She is maintaining good O2 saturations in the 90s on 3 L/min per nasal cannula. During the evening she wears BiPAP 16/6 and 45% FiO2. She remains on oral diuretics. Anticoagulated with Eliquis. Sodium 154. Potassium 4.1. Bicarb 28. BUN 70. Creatinine 3.5. She is now receiving D5 W at 100 MLS per hour for her hypernatremia. Nephrology is on the case. She is currently in a -300 mL balance. The patient is seen today October 31, 2023 in follow-up on the regular medical floor. She is awake and alert no acute distress. Currently resting in bed. She has been up in the chair at the bedside with assistance. She is continued on 3 L/min per nasal cannula. Wearing BiPAP at night 16/6 and 45% FiO2. No IV fluids. She is anticoagulated with Eliquis. Receiving iron supplements. Remains on oral diuretics. No new labs today. Objective - Vital Signs Vital signs: Vital Signs Temp 97.6 F 10/31/23 07:56 Pulse 53 L 10/31/23 07:56 Resp 19 10/31/23 07:56 BP 118/72 10/31/23 07:56 Pulse Ox 100 10/31/23 07:56 FiO2 45 10/31/23 07:51 Intake & Output 10/30/23 10/31/23 10/31/23 18:59 06:59 18:59 Weight 165 kg Other: Voiding Method Bedside Commode Bedside Commode Incontinent Incontinent # Voids 5 2 # Bowel Movements 1 - Exam GENERAL EXAM: Alert, morbidly obese 48-year-old female, on 3 L nasal cannula, comfortable in no apparent distress. HEAD: Normocephalic. EYES: Normal reaction of pupils, equal size. NOSE: Clear with pink turbinates. THROAT: No erythema or exudates. NECK: No masses, no JVD. CHEST: No chest wall deformity. LUNGS: Equal air entry with crackles in the right base. Diminished. CVS: S1 and S2 normal with no audible murmur, regular rhythm. ABDOMEN: Obese, unable to appreciate hepatosplenomegaly, normal bowel sounds, no guarding or rigidity. SPINE: No scoliosis or deformity SKIN: No rashes CENTRAL NERVOUS SYSTEM: No focal deficits, tone is normal in all 4 extremities. EXTREMITIES: There is 1-2+ peripheral edema. No clubbing, no cyanosis. Peripheral pulses are intact. - Labs CBC & Chem 7: 10/27/23 06:45 10/30/23 20:02 Labs: Abnormal Lab Results - Last 24 Hours (Table) 10/30/23 Range/Units 20:02 Iron 42 L (50-170) UG/DL % Saturation 11.63 L (12.00-45.00) Assessment and Plan Assessment: Acute on chronic hypoxic and hypercapnic respiratory failure secondary to acute exacerbation of chronic diastolic congestive heart failure Acute on chronic diastolic congestive heart failure Hypernatremia Morbid obesity, BMI 57 kg/m Acute on chronic kidney disease Urinary tract infection, culture pending Acute metabolic encephalopathy, recovered Paroxysmal atrial fibrillation Obesity/hypoventilation syndrome Obstructive sleep apnea syndrome, not on CPAP or BiPAP at home History of DVT. Acute on chronic kidney disease Benign essential hypertension History of respiratory failure requiring intubation and mechanical ventilation Anemia of chronic disease Chronic left upper extremity lymphedema Plan: The patient was seen and evaluated Medications reviewed Stable and on 3 L nasal cannula Titrate the FiO2 as tolerated Remains on oral diuretics Anticoagulated with Eliquis Increase her activity as tolerated The plan is for subacute rehab, possibly [facility] This patient was seen independently by the pulmonary nurse practitioner addressing pulmonary issues I have personally seen and examined the patient, performed the documentation and the assessment and plan as written. Number of minutes spent on the visit: 23.
[2023-10-31] MEDS ORDERED: SODIUM FERRIC GLUCONAT-SUCROSE 125 MG in SODIUM CHLORIDE 0.9% 100 ML IVPB ONE (13:15)
[2023-10-31 20:34] LABS: Magnesium 2.5 mg/dL (1.5-2.4)
--- NOTE | 2023-10-31 20:45 | DS ---
DISCHARGE SUMMARY CHIEF COMPLAINT: Shortness of breath. HISTORY OF PRESENT ILLNESS AND PHYSICAL EXAM: Details of this lady's history and physical can be found in the initial workup. LABORATORY STUDIES: While she was in the hospital, she had laboratory studies, details of which can be found in the laboratory section of her chart. COURSE IN THE HOSPITAL: After admission, she was placed on bedrest and started on BiPAP. She has moved to ICU for better management of her congestive heart failure and respiratory insufficiency. On top of that, she was found to have stage IV CKD and was seen and followed by Nephrology. Renal function improved only slightly. She was eventually able to be moved out to a regular floor and discharge planning was then put into place. She had been maintained reasonably well at home with a relative, but it was determined that this was no longer satisfactory and that she would be placed in a [place] [facility]. FINAL DIAGNOSES: 1. Acute congestive heart failure. 2. Chronic congestive heart failure. 3. Stage IV chronic kidney disease. 4. Morbid obesity. 5. Pickwickian syndrome. OPERATIONS: None. CONSULTATIONS: Intensive Medicine, Pulmonology, Nephrology. She is improved. MMODL / IJN: [id number] /
[2023-10-31 20:52] LABS: BUN/Creat Ratio 20.91 Ratio (12.00-20.00); Blood Urea Nitrogen 71.1 mg/dL (9.0-27.0); Calcium 9.2 mg/dL (8.7-10.3); Carbon Dioxide 23.8 mmol/L (21.6-31.8); Chloride 102 mmol/L (96-109); Glucose 84 mg/dL (70-110); Potassium 4.5 mmol/L (3.5-5.5); Sodium 139 mmol/L (135-145)
[2023-10-31] MEDS: MORPHINE SULFATE 4 MG/ML SYRINGE IV PRN (23:12)
[2023-11-01] MEDS: hydrALAZINE HCL 50 MG TAB PO SCH (09:27)
[2023-11-01] MEDS: ISOSORBIDE MONONITRATE ER 30 MG TAB.ER.24H PO SCH (09:27)
[2023-11-01] MEDS: PANTOPRAZOLE 40 MG TABLET PO SCH (09:27)
[2023-11-01] MEDS: FOLIC ACID 1 MG TAB PO SCH (09:27)
[2023-11-01] MEDS: APIXABAN 5 MG TAB PO SCH (09:27)
[2023-11-01] MEDS: FUROSEMIDE 80 MG TAB PO SCH ×2 (09:27→16:01)
[2023-11-01] MEDS: NYSTATIN 100,000 UNIT/GM POWD 15 GM TOPICAL SCH ×2 (09:28→16:03)
[2023-11-01] MEDS: METOPROLOL SUCCINATE (ER) 100 MG TAB.ER.24H PO SCH (09:28)
[2023-11-01 10:48] LABS: African American GFR (CKD) 17 (>60 ml/min/1.73 sqM); Anion Gap 4 mmol/L; Blood Urea Nitrogen 73 mg/dL (7-17); Calcium 8.8 mg/dL (8.4-10.2); Carbon Dioxide 32 mmol/L (22-30); Chloride 105 mmol/L (98-107); Glucose 93 mg/dL (74-99); Magnesium 2.4 mg/dL (1.6-2.3); Non-African American GFR(CKD) 15 (>60 ml/min/1.73 sqM); Potassium 4.2 mmol/L (3.5-5.1); Sodium 141 mmol/L (137-145)
--- NOTE | 2023-11-01 11:08 | P.PN ---
Subjective Patient is seen in follow-up for acute kidney injury on chronic kidney disease. Renal function fairly stable. Nonoliguric. Denies chest pain or shortness of breath. Oral intake is good. Vital signs are stable. General: No acute distress. HEENT: Head exam is unremarkable. On nasal cannula. LUNGS: No audible rhonchi or wheezes. HEART: Rate and Rhythm are regular. ABDOMEN: Obese, nontender. EXTREMITITES: Trace edema. Objective - Vital Signs Vital signs: Vital Signs Temp 97.9 F 11/01/23 07:22 Pulse 54 L 11/01/23 07:22 Resp 18 11/01/23 07:22 BP 128/84 11/01/23 07:22 Pulse Ox 99 11/01/23 07:22 FiO2 45 11/01/23 08:06 Intake & Output 10/31/23 11/01/23 11/01/23 18:59 06:59 18:59 Intake Total 1620 Balance 1620 Weight 219.284 kg Intake: Oral 1620 Other: Voiding Method Bedside Commode Bedside Commode Incontinent Incontinent # Voids 3 2 - Labs CBC & Chem 7: 10/27/23 06:45 11/01/23 10:21 Labs: Abnormal Lab Results - Last 24 Hours (Table) 10/31/23 11/01/23 Range/Units 11:22 10:21 Carbon Dioxide 32 H (22-30) mmol/L Anion Gap 13.20 H (4.00-12.00) mmol/L BUN 71.1 H 73 H (9.0-27.0) mg/dL Creatinine 3.4 H 3.41 H (0.6-1.5) mg/dL Est GFR (CKD-EPI) 16 L (>=60) BUN/Creatinine Ratio 20.91 H (12.00-20.00) Ratio Magnesium 2.5 H 2.4 H (1.5-2.4) mg/dL Assessment and Plan Plan: Assessment: 1. Acute kidney injury secondary to ATN secondary to cardiorenal syndrome. Creatinine 4.25 on admission and fairly stable at 3.4 today. 2. Chronic kidney disease stage IV with recent creatinine in the range of 3- 3.5. Ultrasound from May 2023 showed no hydronephrosis but left kidney was not visualized. Serologies in the past have been negative except for positive THANH. Urine protein electrophoresis suggestive of glomerular proteinuria. UPC 2.4 g in May 2023. CAT scan from November 2022 showed no hydronephrosis. UA from May 2023 showed positive protein and no blood. 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 Only trace protein noted on UA from this admission and UPC 1.8 g. No paraprotein or Bence-Manzo proteins noted on immunofixation. 3. Acute on chronic systolic CHF with ejection fraction of 30 to 35%. 4. Volume overload. Improved with diuresis. 5. Anemia of chronic kidney disease. Received Aranesp October 28, 2023. Iron deficiency noted. 6. Morbid obesity. 7. Hypertension with chronic kidney disease. Controlled. 8. Hypernatremia from free water diuresis and lack of oral water intake. Likely lab error. Repeat sodium was normal. Plan: Encouraged oral intake. Maintain Lasix. Advised patient to monitor her weight closely at home and to notify physician if develops worsening edema or gains more than 3 pounds in 1 week duration. Also advised to maintain low-salt diet. Repeat BMP and magnesium level 2 to 3 days postdischarge. Follow-up outpatient in 1 week. Also discussed kidney biopsy for definitive diagnosis with patient. States she will think about it. Colon catheter removed October 29, 2023. IV iron x 1 dose today. This will be her second dose.
[2023-11-01] MEDS ORDERED: SODIUM FERRIC GLUCONAT-SUCROSE 125 MG in SODIUM CHLORIDE 0.9% 100 ML IVPB ONE (11:30)
--- NOTE | 2023-11-01 12:41 | P.PN ---
Subjective Progress Note Date: 11/01/23 This is a 48-year-old -[place] female, known history of congestive heart failure hypertension more than obesity obstructive sleep apnea syndrome, chronic hypoxic respiratory failure, previous ventilator dependent respiratory failure, chronic kidney disease stage IV, left upper extremity lymphedema, anemia, frequent episodes of urinary tract infections, multiple previous admissions with congestive heart failure and hypoxic and hypercapnic respiratory failure. Patient was admitted today with chief complaint of shortness of breath, and increased lower extremity swelling. Upon my evaluation, patient was noted to be on BiPAP, lethargic, opens eyes to verbal stimuli, and her chest x-ray clearly showed evidence of pulmonary edema. ABG on admission showed a pO2 of 82 pCO2 60 pH of 7.18. Her labs clearly showed evidence of worsening renal failure with a BUN of 88 creatinine 4.23, hence I suggested starting the patient on IV Lasix drip, and I also suggested admitting the patient to the ICU since her overall pulmonary status seems to be marginal at best. Her BNP level was over 10,000. And troponin level was elevated at around 0.060. Previous echocardiogram on this patient showed preserved systolic function with ejection fraction of 50-55% labs today showed WBC count 6.1 hemoglobin 11.2. Sodium 144 potassium 4.6 bicarb is 20 BUN is 88 creatinine 4.23 Patient evaluated today on 10/23/2022, I saw this patient yesterday in consultation, and I transferred the patient to the ICU. Patient was in acute on chronic diastolic congestive heart failure, I started the patient on Lasix drip at 10 mg/h, she was kept on BiPAP 16/6/35%, and reevaluated today, seems to be definitely more awake, more responsive compared to yesterday, patient is feeling better, and she has had significant urine output since admission. Patient has been in negative fluid balance almost a liter and a half over the last 12 hours. Yesterday we had difficulty placing a Colon catheter, however the nurses were finally successful in placing 1, and seems to be draining well and functional. Right now patient has a urine output of 100 up to 170 cc/h on the Lasix drip. She was seen by nephrology in consultation and felt to have acute kidney injury, cardiorenal nonoliguric, and the recommendation was to continue Lasix drip WBC count today is 5.5 hemoglobin is 10.1. Basic metabolic profile is normal bicarb is 21 BUN is 91 creatinine 4.03. Patient was reevaluated today on 10/23/2023, remains on Lasix drip, remains in negative balance, feeling better, and she is now on BiPAP 16/6/35%. Patient is about -4 L/fluid balance. Her creatinine is a bit high at 4.49 today. Labs this morning showed WBC count of 5.6 hemoglobin 9.7 sodium 145 potassium 5.3 bicarb is 18 BUN 95 creatinine 4.49, patient is being followed by nephrology and she is also being followed by cardiology. Clinically there is some improvement, but nonetheless patient continues to be marginal at best. Clearly the patient has congestive heart failure with preserved systolic function. And she had similar presentations in the past her mentation seems to be improving, and her metabolic encephalopathy is getting better. Patient was reevaluated today on 10/24/2023, remains on Lasix drip however it was cut down to 5 mg/h. Urine output ranging between 100 to 200 cc/h, patient is intermittently on BiPAP, and her creatinine is pending today. Yesterday creatinine was 4.49. Chest x-ray is showing improvement in her pulmonary edema clinically the patient is feeling better. Patient declined having labs drawn today. Patient was reevaluated today on 10/25/2023, remains in the ICU, remains on Lasix drip at 5 mg/h, remains in negative fluid balance, patient is -5 L in the last 48 hours. She is now on nasal cannula at 3 L, not in any distress, intermittently on BiPAP 16/6/45%. Today I am planning to discontinue Lasix infusion, and give the patient Lasix 80 mg IV push twice daily and will likely transfer the patient to a cardiac floor today 3 S. WBC is 4.6 hemoglobin 9.6. Basic metabolic profile is normal BUN is 92 creatinine down to 3.92. Nephrology is entertaining the possibility of kidney biopsy for further evaluation of her abnormal labs including elevated THANH, elevated kappa and lambda chains but the ratio does not seem to be significantly elevated. And nephrology is considering kidney biopsy Patient was reevaluated today on 10/26/2023 patient remains in the ICU as an overflow, intermittently on BiPAP and alternating with nasal cannula, feeling much better, breathing easier, continues to have significant urine output 3.9 L over the last 24 hours. Maintained on Lasix at 80 mg IV push every 12 hours, carla thao is off Lasix drip. Patient clearly has acute kidney injury cardiorenal, nonoliguric,WBC count today is 4.6 hemoglobin 9.6. Basic metabolic profile is normal BUN is 83 creatinine down to 3.39, no chest x-ray was felt to be necessary today Patient was reevaluated today on 10/27/2023, patient continues to do well in the ICU as an overflow, off Lasix drip for the last 2 days she is now on Lasix 80 mg IV push every 12 hours urine output almost 1.8 L over the last 24 hours. Her renal profile seems to be improving decreased creatinine to 3.2. Rest of her labs are basically unremarkable. Potassium is 4.2 bicarb is 29. Overall, the patient is making a dramatic improvement The patient is seen today October 28, 2023 in follow-up in the intensive care unit. She remains at 3 S. overflow. She is sitting up in a chair currently. Awake and alert in no acute distress. She is maintaining O2 saturations in the 90s on 3 L/min per nasal cannula. She did utilize BiPAP throughout the night 16/6 and 45% FiO2. X-ray continues to show cardiomegaly with some pulmonary vascular congestion and improvement in the right basilar infiltrate. Sodium 139. Potassium 4.2. Bicarb 25. BUN 76. Creatinine 3.33. Glucose 119. She is continued on oral diuretics. Anticoagulated with Eliquis. The patient is seen today October 29, 2023 in follow-up on the regular medical floor. She is currently sitting up in bed. Awake and alert in no acute distress. She was moved out of the intensive care unit yesterday. She denies any worsening shortness of breath, cough or congestion. She is maintaining good O2 saturations in the 90s on 4 L/min per nasal cannula. She is utilizing BiPAP throughout the night and during the day while napping at 16/6 and 45% FiO2. She remains in a -1.6 L balance the past 24 hours. Continues on oral diuretics. Anticoagulated with Eliquis. Urinalysis revealing suspected UTI. The patient is seen today October 30, 2023 and follow-up on the regular medical floor. She is resting comfortably in bed. Awake and alert in no acute distress. She is maintaining good O2 saturations in the 90s on 3 L/min per nasal cannula. During the evening she wears BiPAP 16/6 and 45% FiO2. She remains on oral diuretics. Anticoagulated with Eliquis. Sodium 154. Potassium 4.1. Bicarb 28. BUN 70. Creatinine 3.5. She is now receiving D5 W at 100 MLS per hour for her hypernatremia. Nephrology is on the case. She is currently in a -300 mL balance. The patient is seen today October 31, 2023 in follow-up on the regular medical floor. She is awake and alert no acute distress. Currently resting in bed. She has been up in the chair at the bedside with assistance. She is continued on 3 L/min per nasal cannula. Wearing BiPAP at night 16/6 and 45% FiO2. No IV fluids. She is anticoagulated with Eliquis. Receiving iron supplements. Remains on oral diuretics. No new labs today. The patient is seen today November 01, 2023 in follow-up on the regular medical floor. She is resting comfortably in bed. Awake and alert in no acute distress. She is maintaining O2 saturations in the 90s on 4 L/min per nasal cannula. She is alternating with BiPAP 16/6 and 45% FiO2. She denies any worsening shortness of breath, cough or congestion. She has been afebrile. Hemodynamically stable. No IV fluids. Sodium 141. Potassium 4.2. Bicarb 32. BUN 73. Creatinine 3.41. Glucose 98. She remains on oral diuretics. Anticoagulated with Eliquis. Objective - Vital Signs Vital signs: Vital Signs Temp 97.9 F 11/01/23 07:22 Pulse 54 L 11/01/23 07:22 Resp 18 11/01/23 07:22 BP 128/84 11/01/23 07:22 Pulse Ox 99 11/01/23 07:22 FiO2 45 11/01/23 08:06 Intake & Output 10/31/23 11/01/23 11/01/23 18:59 06:59 18:59 Intake Total 1620 Balance 1620 Weight 219.284 kg Intake: Oral 1620 Other: Voiding Method Bedside Commode Bedside Commode Bedside Commode Incontinent Incontinent Incontinent # Voids 3 2 - Exam GENERAL EXAM: Alert, morbidly obese, pleasant 48-year-old female, sitting in bed, on 4 L nasal cannula, comfortable in no apparent distress. HEAD: Normocephalic. EYES: Normal reaction of pupils, equal size. NOSE: Clear with pink turbinates. THROAT: No erythema or exudates. NECK: No masses, no JVD. CHEST: No chest wall deformity. LUNGS: Equal air entry with crackles in the right base. Diminished. CVS: S1 and S2 normal with no audible murmur, regular rhythm. ABDOMEN: Obese, unable to appreciate hepatosplenomegaly, normal bowel sounds, no guarding or rigidity. SPINE: No scoliosis or deformity SKIN: No rashes CENTRAL NERVOUS SYSTEM: No focal deficits, tone is normal in all 4 extremities. EXTREMITIES: There is 1-2+ peripheral edema. No clubbing, no cyanosis. Peripheral pulses are intact. - Labs CBC & Chem 7: 10/27/23 06:45 11/01/23 10:21 Labs: Abnormal Lab Results - Last 24 Hours (Table) 10/31/23 11/01/23 Range/Units 11:22 10:21 Carbon Dioxide 32 H (22-30) mmol/L Anion Gap 13.20 H (4.00-12.00) mmol/L BUN 71.1 H 73 H (9.0-27.0) mg/dL Creatinine 3.4 H 3.41 H (0.6-1.5) mg/dL Est GFR (CKD-EPI) 16 L (>=60) BUN/Creatinine Ratio 20.91 H (12.00-20.00) Ratio Magnesium 2.5 H 2.4 H (1.5-2.4) mg/dL Assessment and Plan Assessment: Acute on chronic hypoxic and hypercapnic respiratory failure secondary to acute exacerbation of chronic diastolic congestive heart failure Acute on chronic diastolic congestive heart failure Hypernatremia Morbid obesity, BMI 75.7 kg/m Acute on chronic kidney disease Urinary tract infection, culture pending Acute metabolic encephalopathy, recovered Paroxysmal atrial fibrillation Obesity/hypoventilation syndrome Obstructive sleep apnea syndrome, not on CPAP or BiPAP at home History of DVT. Acute on chronic kidney disease Benign essential hypertension History of respiratory failure requiring intubation and mechanical ventilation Anemia of chronic disease Chronic left upper extremity lymphedema Plan: The patient was seen and evaluated Medications and reviewed Stable and on 3 L nasal cannula BiPAP at night and while napping at 16/6 and 45% FiO2 The plan is for subacute rehab, possibly [facility] This patient was seen independently by the pulmonary nurse practitioner addressing pulmonary issues I have personally seen and examined the patient, performed the documentation and the assessment and plan as written. Number of minutes spent on the visit: 22.
[2023-11-01 20:28] VITALS: BP 120/75; PULSE 70; RESP 15; TEMP 97.4
--- NOTE | 2023-11-01 20:31 | PN ---
PROGRESS NOTE CHIEF COMPLAINT: Acute congestive heart failure and renal failure. HISTORY OF PRESENT ILLNESS: This lady is doing fairly well and awaits transfer to the senior care. REVIEW OF SYSTEMS: She has no complaints. PHYSICAL EXAMINATION: CHEST: Breath sounds are present bilaterally. CARDIAC: Normal. ABDOMEN: Protuberant, soft. IMPRESSION: 1. Acute congestive heart failure. 2. Chronic congestive heart failure. 3. Cardiomyopathy. 4. Morbid obesity. 5. Pickwickian syndrome. 6. Chronic renal failure. PLAN: Await discharge to senior care. MMODL / IJN: [id number] /
== END 2023-11-01 20:07 | DRG 194 ==
LOC: EC 18:08 → 3SCARD 21:53 → 2SICU 10-21 13:21 → 5NMEDONC 10-28 17:02
PROVIDERS: ADMIT Family Medicine; ATTEND Family Medicine
PROC: 5A09357 Assistance with Respiratory Ventilation, Less than 24 Consecutive Hours, Continuous Positive Airway Pressure (ICD-10-PCS; principal; 2023-10-21)
DX: I13.0 Hypertensive heart and chronic kidney disease with heart failure and stage 1 through stage 4 chronic kidney disease, or unspecified chronic kidney disease (principal); G47.00 Insomnia, unspecified; F05 Delirium due to known physiological condition; G93.41 Metabolic encephalopathy; J96.21 Acute and chronic respiratory failure with hypoxia; D63.1 Anemia in chronic kidney disease; N17.0 Acute kidney failure with tubular necrosis; E66.2 Morbid (severe) obesity with alveolar hypoventilation; E87.0 Hyperosmolality and hypernatremia; E61.1 Iron deficiency; E87.29 Other acidosis; I25.10 Atherosclerotic heart disease of native coronary artery without angina pectoris; I42.9 Cardiomyopathy, unspecified; I48.0 Paroxysmal atrial fibrillation; Z79.01 Long term (current) use of anticoagulants; Z68.45 Body mass index [BMI] 70 or greater, adult; J96.22 Acute and chronic respiratory failure with hypercapnia; I50.43 Acute on chronic combined systolic (congestive) and diastolic (congestive) heart failure; M17.0 Bilateral primary osteoarthritis of knee; N18.4 Chronic kidney disease, stage 4 (severe); Z99.81 Dependence on supplemental oxygen; I47.10 Supraventricular tachycardia, unspecified; F41.9 Anxiety disorder, unspecified; R32 Unspecified urinary incontinence; R15.9 Full incontinence of feces; K44.9 Diaphragmatic hernia without obstruction or gangrene; K57.90 Diverticulosis of intestine, part unspecified, without perforation or abscess without bleeding; R76.8 Other specified abnormal immunological findings in serum; Z79.899 Other long term (current) drug therapy; Z82.49 Family history of ischemic heart disease and other diseases of the circulatory system; Z86.718 Personal history of other venous thrombosis and embolism; Z87.440 Personal history of urinary (tract) infections; Z87.442 Personal history of urinary calculi; Z74.01 Bed confinement status; Z60.2 Problems related to living alone
CPT/HCPCS: 36415; 36600; 71045; 71046; 80048; 80053; 81001; 82570; 82607; 82728; 82746; 82784; 82805; 83540; 83550; 83605; 83735; 83880; 83883; 84100; 84132; 84156; 84165; 84166; 84295; 84484; 85025; 85610; 85730; 86334; 86335; 93005; 94640; 94660; 99291

== ENCOUNTER 2024-02-22 22:30 | Inpatient (IN) | payer OTHER ==
[2024-02-22 23:37] LABS: Anisocytosis Slight; Basophils % (A) 1 %; Eosinophils # (A) 0.2 k/uL (0-0.7); Eosinophils % (A) 3 %; HCT 38.6 % (34.0-46.0); HGB 11.2 gm/dL (11.4-16.0); Hypochromasia Marked; Lymphocytes # (A) 0.8 k/uL (1.0-4.8); Lymphocytes % (A) 13 %; MCH 24.6 pg (25.0-35.0); MCHC 29.1 g/dL (31.0-37.0); MCV 84.6 fL (80.0-100.0); Mean Platelet Volume 10.9; Monocytes # (A) 0.4 k/uL (0-1.0); Monocytes % (A) 6 %; Neutrophils # (A) 4.5 k/uL (1.3-7.7); Neutrophils % (A) 74 %; Platelet Count 162 k/uL (150-450); RBC 4.56 m/uL (3.80-5.40); RDW 16.7 % (11.5-15.5); WBC 6.1 k/uL (3.8-10.6)
[2024-02-22 23:41] LABS: INR 1.2 (<1.2); Partial Thromboplastin Time 26.7 sec (22.0-30.0); Prothrombin Time 12.4 sec (10.0-12.5)
[2024-02-22 23:42] LABS: Anion Gap 6 mmol/L; Blood Urea Nitrogen 59 mg/dL (7-17); Carbon Dioxide 24 mmol/L (22-30); Chloride 110 mmol/L (98-107); Glucose 91 mg/dL (74-99); Potassium 5.8 mmol/L (3.5-5.1); Sodium 140 mmol/L (137-145)
[2024-02-22 23:43] LABS: ALT 10 U/L (4-34); AST 22 U/L (14-36); African American GFR (CKD) 21 (>60 ml/min/1.73 sqM); Albumin 3.8 g/dL (3.5-5.0); Alkaline Phosphatase 83 U/L (38-126); Calcium 8.8 mg/dL (8.4-10.2); Non-African American GFR(CKD) 18 (>60 ml/min/1.73 sqM); Total Bilirubin 0.6 mg/dL (0.2-1.3)
[2024-02-22 23:51] LABS: NT-Pro-B-Type Natriuretic Pept 9760 pg/mL
--- NOTE | 2024-02-23 00:53 | XR ---
EXAM: XR Chest, 1 View CLINICAL HISTORY: ITS.REASON XR Reason: difficulty breathing TECHNIQUE: Frontal view of the chest. COMPARISON: CXR 10/28/2023. FINDINGS: Lungs: Pulmonary vascular congestion. Small left pleural effusion. Severe cardiomegaly. Findings are consistent with congestive heart failure. No consolidation. Pleural space: See above. Heart: Cardiomegaly. Mediastinum: Unremarkable. Normal mediastinal contour. Bones/joints: Unremarkable. No acute fracture. IMPRESSION: Pulmonary vascular congestion. Small left pleural effusion. Severe cardiomegaly. Findings are consistent with congestive heart failure.
--- NOTE | 2024-02-23 02:29 | ED ---
General Adult HPI - General Chief complaint: Shortness of Breath Stated complaint: SOB Time Seen by Provider: 02/22/24 22:34 Source: EMS Mode of arrival: EMS - History of Present Illness Initial comments: 48-year-old female with a past medical history significant for congestive heart failure, morbid obesity, stage IV chronic kidney disease, pickwickian syndrome presenting to the ED with complaints of shortness of breath. Patient reports over the past few days has been more short of breath compared to usual. Reports that she has been taking her medications as prescribed. Denies chest pain. Denies fever or chills. No other complaints at this time. Patient is normally at 3 L at home. - Related Data Home Medications Medication Instructions Recorded Confirmed Omeprazole 20 mg PO DAILY 11/05/17 10/20/23 Magnesium Oxide [Mag-Ox] 400 mg PO DAILY 12/19/22 10/20/23 Metoprolol Succinate (ER) [Toprol 100 mg PO DAILY 06/14/23 10/20/23 XL] Baclofen 10 mg PO DAILY 10/20/23 10/20/23 Dulaglutide [Trulicity] 0.75 mg SQ Q7D 10/20/23 10/20/23 Furosemide [Lasix] 80 mg PO BID 10/20/23 10/20/23 Previous Rx's Medication Instructions Recorded Folic Acid 1 mg PO DAILY #30 tab 12/28/22 Apixaban [Eliquis] 5 mg PO BID #60 tab 05/24/23 Isosorbide Mononitrate ER [Imdur] 30 mg PO DAILY #30 tab 05/24/23 Nystatin 100,000 Unit/gm Powd 1 applic TOPICAL TID 30 Days #90 10/28/23 [Mycostatin Powder] each hydrALAZINE HCL [Apresoline] 50 mg PO BID #60 11/01/23 Allergies Allergy/AdvReac Type Severity Reaction Status Date / Time No Known Allergies Allergy Verified 10/20/23 21:11 Review of Systems ROS Statement: Those systems with pertinent positive or pertinent negative responses have been documented in the HPI. ROS Other: All systems not noted in ROS Statement are negative. Past Medical History Past Medical History: Coronary Artery Disease (CAD), Chest Pain / Angina, Heart Failure, Deep Vein Thrombosis (DVT), Hypertension, Osteoarthritis (OA), Renal Disease, Sleep Apnea/CPAP/BIPAP, Supraventricular Tachycardia (SVT) Additional Past Medical History / Comment(s): Pt recently admitted to [facility] on 07/03/22-07/15/22 with acute pulmonary edema. Other hx: Chronic CHF, home oxygen at 3L/NC prn, NIR/no device, previous ventilator dependent respiratory failure, sinus pauses, CKD stage IV, anemia, lymphedema, arthritis bilateral knees, hiatal hernia, diverticular disease, UTIs, constipation, urine and bowel incontinence. History of Any Multi-Drug Resistant Organisms: VRE Date of last positivie culture/infection: 05/03/20 MDRO Source:: VRE URINE Past Surgical History: Section, Hernia Repair Additional Past Surgical History / Comment(s): abdominal hernia repair with mesh, cysts removed from stomach, EGD, colonoscopy Past Anesthesia/Blood Transfusion Reactions: No Reported Reaction Additional Past Anesthesia/Blood Transfusion Reaction / Comment(s): Pt has received blood in the past without reaction. Past Psychological History: Anxiety Smoking Status: Never smoker Past Alcohol Use History: None Reported Past Drug Use History: None Reported - Past Family History Father Family Medical History: Congestive Heart Failure (CHF) Additional Family Medical History / Comment(s): Father from CHF. Mother Family Medical History: Cancer, Hypertension, Sleep Apnea/CPAP/BIPAP Additional Family Medical History / Comment(s): Mother has had cancer removed from ear/head. General Exam Limitations: physical limitation (Secondary to morbid obesity) General appearance: alert Neck exam: Present: normal inspection Respiratory exam: Present: decreased breath sounds (Difficult auscultation secondary to body habitus, decreased breath sounds), other (Conversational dyspnea) Cardiovascular Exam: Present: regular rate GI/Abdominal exam: Present: soft. Absent: distended, tenderness, guarding, rebound, rigid Neurological exam: Present: alert, oriented X3 Skin exam: Present: warm, dry Course Vital Signs 02/22/24 02/23/24 22:33 00:17 Temperature 97.5 F L Pulse Rate 71 66 Respiratory 22 22 Rate Blood Pressure 179/107 172/109 O2 Sat by Pulse 95 95 Oximetry Medical Decision Making - Medical Decision Making Was pt. sent in by a medical professional or institution (, PA, TUBER OPERATOR, urgent care, hospital, or longterm...) When possible be specific @ -No Did you speak to anyone other than the patient for history (EMS, parent, family, police, friend...)? What history was obtained from this source @ -No Did you review nursing and triage notes (agree or disagree)? Why? @ -I reviewed and agree with nursing and triage notes Were old charts reviewed (outside hosp., previous admission, EMS record, old EKG, old radiological studies, urgent care reports/EKG's, longterm records)? Report findings @ -No old charts were reviewed Differential Diagnosis (chest pain, altered mental status, abdominal pain women, abdominal pain men, vaginal bleeding, weakness, fever, dyspnea, syncope, headache, dizziness, GI bleed, back pain, seizure, CVA, palpatations, mental health, musculoskeletal)? @ -Differential Dyspnea: Coronary syndrome, arrhythmia, tamponade, asthma, COPD, pulmonary embolism, pneumonia, pneumothorax, pulmonary effusion, anaphylaxis, diabetic ketoacidosis, flailed chest, pulmonary contusion, diaphragmatic rupture, anemia, neuromu scular, this is not meant to be an all-inclusive list. EKG interpreted by me (3pts min.). @ -EKG interpreted me showing a sinus rhythm at 66 bpm with a first-degree block with a FL interval of 270 ms, QRS 85, QT/QTc 419/432. No acute ST-T wave changes. X-rays interpreted by me (1pt min.). @ -Chest x-ray interpreted me showing findings consistent with congestive heart failure CT interpreted by me (1pt min.). @ -None done U/S interpreted by me (1pt. min.). @ -None done What testing was considered but not performed or refused? (CT, X-rays, U/S, labs)? Why? @ -None What meds were considered but not given or refused? Why? @ -None Did you discuss the management of the patient with other professionals (professionals i.e. , PA, TUBER OPERATOR, lab, RT, psych nurse, rn social services, club concierge, teacher, probation officer, rn case manager)? Give summary @ -No Was smoking cessation discussed for >3mins.? @ -No Was critical care preformed (if so, how long)? @ -No Were there social determinants of health that impacted care today? How? (Homelessness, low income, unemployed, alcoholism, drug addiction, transportation, low edu. Level, literacy, decrease access to med. care, penitentiary, rehab)? @ -No Was there de-escalation of care discussed even if they declined (Discuss DNR or withdrawal of care, Hospice)? DNR status @ -No What co-morbidities impacted this encounter? (DM, HTN, Smoking, COPD, CAD, Cancer, CVA, ARF, Chemo, Hep., AIDS, mental health diagnosis, sleep apnea, morbid obesity)? @ -Morbid obesity, CHF, chronic kidney disease Was patient admitted / discharged? Hospital course, mention meds given and route, prescriptions, significant lab abnormalities, going to OR and other pertinent info. @ -Admission 48-year-old female with a past medical history significant for CHF presented to the ED with complaints of dyspnea. Laboratory studies reviewed. CBC largely unremarkable. Chemistry panel does show hyperkalemia with potassium of 5.8, BUN and creatinine elevated at 59 and 2.92 however does appear improved from baseline. Troponin shows slight elevation at 0.052. Patient has history of elevated troponins. BNP elevated at 9760. Patient will be admitted with consults to cardiology secondary to CHF exacerbation. Undiagnosed new problem with uncertain prognosis? @ -No Drug Therapy requiring intensive monitoring for toxicity (Heparin, Nitro, Insulin, Cardizem)? @ -No Were any procedures done? @ -No Diagnosis/symptom? @ -CHF exacerbation Acute, or Chronic, or Acute on Chronic? @ -Acute Uncomplicated (without systemic symptoms) or Complicated (systemic symptoms)? @ -Complicated Side effects of treatment? @ -No Exacerbation, Progression, or Severe Exacerbation? @ -Exacerbation Poses a threat to life or bodily function? How? (Chest pain, USA, NH, pneumonia, PE, COPD, DKA, ARF, appy, cholecystitis, CVA, Diverticulitis, Homicidal, Suicidal, threat to staff... and all critical care pts) @ -Possibly - Lab Data Result diagrams: 02/22/24 23:23 02/22/24 23:23 Lab Results 02/22/24 02/22/24 02/22/24 Range/Units 23:23 23:23 23:23 WBC 6.1 (3.8-10.6) k/uL RBC 4.56 (3.80-5.40) m/uL Hgb 11.2 L (11.4-16.0) gm/dL Hct 38.6 (34.0-46.0) % MCV 84.6 (80.0-100.0) fL MCH 24.6 L (25.0-35.0) pg MCHC 29.1 L (31.0-37.0) g/dL RDW 16.7 H (11.5-15.5) % Plt Count 162 (150-450) k/uL MPV 10.9 Neutrophils % 74 % Lymphocytes % 13 % Monocytes % 6 % Eosinophils % 3 % Basophils % 1 % Neutrophils # 4.5 (1.3-7.7) k/uL Lymphocytes # 0.8 L (1.0-4.8) k/uL Monocytes # 0.4 (0-1.0) k/uL Eosinophils # 0.2 (0-0.7) k/uL Basophils # 0.0 (0-0.2) k/uL Hypochromasia Marked Anisocytosis Slight PT 12.4 (10.0-12.5) sec INR 1.2 H (<1.2) APTT 26.7 (22.0-30.0) sec Sodium 140 (137-145) mmol/L Potassium 5.8 H (3.5-5.1) mmol/L Chloride 110 H (98-107) mmol/L Carbon Dioxide 24 (22-30) mmol/L Anion Gap 6 mmol/L BUN 59 H (7-17) mg/dL Creatinine 2.92 H (0.52-1.04) mg/dL Est GFR (CKD-EPI)AfAm 21 (>60 ml/min/1.73 sqM) Est GFR (CKD-EPI)NonAf 18 (>60 ml/min/1.73 sqM) Glucose 91 (74-99) mg/dL Plasma Lactic Acid Antony (0.7-2.0) mmol/L Calcium 8.8 (8.4-10.2) mg/dL Total Bilirubin 0.6 (0.2-1.3) mg/dL AST 22 (14-36) U/L ALT 10 (4-34) U/L Alkaline Phosphatase 83 (38-126) U/L Troponin I (0.000-0.034) ng/mL NT-Pro-B Natriuret Pep 9760 pg/mL Total Protein 8.0 (6.3-8.2) g/dL Albumin 3.8 (3.5-5.0) g/dL 02/22/24 02/22/24 Range/Units 23:23 23:23 WBC (3.8-10.6) k/uL RBC (3.80-5.40) m/uL Hgb (11.4-16.0) gm/dL Hct (34.0-46.0) % MCV (80.0-100.0) fL MCH (25.0-35.0) pg MCHC (31.0-37.0) g/dL RDW (11.5-15.5) % Plt Count (150-450) k/uL MPV Neutrophils % % Lymphocytes % % Monocytes % % Eosinophils % % Basophils % % Neutrophils # (1.3-7.7) k/uL Lymphocytes # (1.0-4.8) k/uL Monocytes # (0-1.0) k/uL Eosinophils # (0-0.7) k/uL Basophils # (0-0.2) k/uL Hypochromasia Anisocytosis PT (10.0-12.5) sec INR (<1.2) APTT (22.0-30.0) sec Sodium (137-145) mmol/L Potassium (3.5-5.1) mmol/L Chloride (98-107) mmol/L Carbon Dioxide (22-30) mmol/L Anion Gap mmol/L BUN (7-17) mg/dL Creatinine (0.52-1.04) mg/dL Est GFR (CKD-EPI)AfAm (>60 ml/min/1.73 sqM) Est GFR (CKD-EPI)NonAf (>60 ml/min/1.73 sqM) Glucose (74-99) mg/dL Plasma Lactic Acid Antony 0.5 L (0.7-2.0) mmol/L Calcium (8.4-10.2) mg/dL Total Bilirubin (0.2-1.3) mg/dL AST (14-36) U/L ALT (4-34) U/L Alkaline Phosphatase (38-126) U/L Troponin I 0.052 H* (0.000-0.034) ng/mL NT-Pro-B Natriuret Pep pg/mL Total Protein (6.3-8.2) g/dL Albumin (3.5-5.0) g/dL Disposition Clinical Impression: CHF exacerbation Disposition: ADMITTED IP TO THIS HOSP Referrals: Mayi Andersen DO [Primary Care Provider] - 1-2 days Time of Disposition: 01:00
[2024-02-23] MEDS: FUROSEMIDE 10 MG/ML 4 ML VIAL IV SCH (02:56)
[2024-02-23] MEDS: hydrALAZINE HCL 20 MG/ML 1 ML VIAL IVP STA (04:09)
[2024-02-23] MEDS: APIXABAN 5 MG TAB PO SCH (08:45)
[2024-02-23] MEDS: hydrALAZINE HCL 50 MG TAB PO SCH ×2 (08:45→16:00)
[2024-02-23] MEDS: METOPROLOL SUCCINATE (ER) 50 MG TAB.ER.24H PO SCH (08:45)
[2024-02-23] MEDS: ISOSORBIDE MONONITRATE ER 30 MG TAB.ER.24H PO SCH (08:46)
[2024-02-23] MEDS ORDERED: NALOXONE 0.4 MG/ML 1 ML VIAL SQ PRN (11:19)
[2024-02-23 12:01] LABS: Anisocytosis Slight; Basophils % (A) 1 %; Eosinophils # (A) 0.1 k/uL (0-0.7); Eosinophils % (A) 2 %; HCT 40.6 % (34.0-46.0); HGB 11.2 gm/dL (11.4-16.0); Hypochromasia Marked; Lymphocytes # (A) 0.8 k/uL (1.0-4.8); Lymphocytes % (A) 10 %; MCHC 27.6 g/dL (31.0-37.0); MCV 86.7 fL (80.0-100.0); Mean Platelet Volume 7.8; Monocytes # (A) 0.3 k/uL (0-1.0); Monocytes % (A) 4 %; Neutrophils # (A) 5.9 k/uL (1.3-7.7); Neutrophils % (A) 81 %; Platelet Count 153 k/uL (150-450); RBC 4.69 m/uL (3.80-5.40); RDW 16.5 % (11.5-15.5); WBC 7.3 k/uL (3.8-10.6)
[2024-02-23 12:04] LABS: African American GFR (CKD) 22 (>60 ml/min/1.73 sqM); Anion Gap 7 mmol/L; Blood Urea Nitrogen 58 mg/dL (7-17); Calcium 9.1 mg/dL (8.4-10.2); Carbon Dioxide 24 mmol/L (22-30); Chloride 109 mmol/L (98-107); Glucose 98 mg/dL (74-99); Non-African American GFR(CKD) 19 (>60 ml/min/1.73 sqM); Potassium 5.7 mmol/L (3.5-5.1); Sodium 140 mmol/L (137-145)
--- NOTE | 2024-02-23 15:51 | P.CRDCN ---
History of Present Illness Consult date: 02/23/24 Consult reason: congestive heart failure (Exacerbation) History of present illness: History of present illness: This is a 48-year-old female patient previously seen in the office by Dr. Collins in 2016 with past medical history of obstructive sleep apnea, morbid obesity, chronic systolic heart failure, chronic kidney disease, chronic hypoxic respiratory failure, paroxysmal atrial fibrillation, history of DVT, chronic lower extremity lymphedema. We have been asked to evaluate the patient for CHF exacerbation. Patient is confused difficult to understand with slurred speech. She apparently had shingles and following treatment she became more short of breath. She lives at [facility] for many years. Patient complains of chest pressure all the time abdominal pain all the time. She has had increased weakness, increasing sleeping and fatigue. Patient received 1 dose of IV hydralazine 20 mg and started on IV Lasix 40 mg every 8 hours. She is seen today in the emergency center waiting for bed on the cardiac stepdown unit. She denies history of smoking and no alcohol abuse. EKG sinus rhythm with no acute ST-T wave changes. Chest x-ray: Pulmonary vascular congestion. Small left pleural effusion. Severe cardiomegaly. Laboratory studies: WBC 6.1, hemoglobin 11.2. Sodium 140, potassium 5.8, BUN 59 creatinine 2.92. Troponin 0.052 and 0.062. proBNP 9760. Home cardiac medications: Eliquis 5 mg twice daily, Lasix 80 mg twice daily, hydralazine 50 mg twice daily, Imdur 30 mg daily, magnesium oxide 400 mg daily, Toprol XL 100 mg daily. Echocardiogram performed 12/19/2022 revealed EF of 30 to 35%, technically diffic ult study. Review Of Systems: At the time of my exam: CONSTITUTIONAL: Denies fever or chills. HEENT: Denies blurred vision, vision changes, or eye pain. Denies hemoptysis CARDIOVASCULAR: Denies chest pain. Denies orthopnea. Denies PND. Denies palpitations RESPIRATORY: Denies shortness of breath. GASTROINTESTINAL: Denies abdominal pain. Denies nausea or vomiting. HEMATOLOGIC: Denies bleeding disorders. GENITOURINARY: Denies any blood in urine. SKIN: Denies pruitis. Denies rash. Physical examination: Gen: This is a morbidly obese 48-year-old black female in no acute distress VS: reviewed, blood pressure 184/130, heart rate 60s, pulse ox 99% on 6 L nasal cannula. Afebrile. HEENT: Head is atraumatic, normocephalic. Pupils equal, round. Sclerae is anicteric. NECK: Supple. No JVD. LUNGS: Clear to auscultation. No wheezes or rhonchi. No intercostal retractions. HEART: Regular rate and rhythm. No murmur. ABDOMEN: Soft No tenderness. EXTREMITIES: Positive left lower extremity lymphedema, No calf tenderness. NEUROLOGICAL: Patient is awake, confused, slurred speech. Assessment: Acute on chronic hypoxic respiratory failure Acute on chronic systolic heart failure Hyperkalemia Uncontrolled hypertension/hypertensive emergency Metabolic encephalopathy Chronic kidney disease stage IV Paroxysmal atrial fibrillation currently in sinus rhythm History of DVT Morbid obesity Obstructive sleep apnea Plan: Resume patient's home cardiac medications Continue IV Lasix 40 mg every 8 hours Increase hydralazine to 100 mg 3 times daily, change Isordil to 30 mg 3 times daily Monitor KEENAN, daily weights, electrolytes and renal function Obtain 2-D echocardiogram and Doppler study to assess cardiac structure and function Recommend ABGs and neurological workup Further recommendations to follow based upon clinical course Thank you kindly for this consultation. Nurse practitioner note has been reviewed, I agree with documented findings and plan of care. Patient was seen and examined. Past Medical History Past Medical History: Coronary Artery Disease (CAD), Chest Pain / Angina, Heart Failure, Deep Vein Thrombosis (DVT), Hypertension, Osteoarthritis (OA), Renal Disease, Sleep Apnea/CPAP/BIPAP, Supraventricular Tachycardia (SVT) Additional Past Medical History / Comment(s): Pt recently admitted to [facility] on 07/03/22-07/15/22 with acute pulmonary edema. Other hx: Chronic CHF, home oxygen at 3L/NC prn, NIR/no device, previous ventilator dependent respiratory failure, sinus pauses, CKD stage IV, anemia, lymphedema, arthritis bilateral knees, hiatal hernia, diverticular disease, UTIs, constipation, urine and bowel incontinence. History of Any Multi-Drug Resistant Organisms: VRE Date of last positivie culture/infection: 05/03/20 MDRO Source:: VRE URINE Past Surgical History: Section, Hernia Repair Additional Past Surgical History / Comment(s): abdominal hernia repair with mesh, cysts removed from stomach, EGD, colonoscopy Past Anesthesia/Blood Transfusion Reactions: No Reported Reaction Additional Past Anesthesia/Blood Transfusion Reaction / Comment(s): Pt has received blood in the past without reaction. Past Psychological History: Anxiety Smoking Status: Never smoker Past Alcohol Use History: None Reported Past Drug Use History: None Reported - Past Family History Father Family Medical History: Congestive Heart Failure (CHF) Additional Family Medical History / Comment(s): Father from CHF. Mother Family Medical History: Cancer, Hypertension, Sleep Apnea/CPAP/BIPAP Additional Family Medical History / Comment(s): Mother has had cancer removed from ear/head. Medications and Allergies Home Medications Medication Instructions Recorded Confirmed Type Magnesium Oxide [Mag-Ox] 400 mg PO HS 12/19/22 02/23/24 History Apixaban [Eliquis] 5 mg PO BID #60 tab 05/24/23 02/23/24 Rx Metoprolol Succinate (ER) [Toprol 100 mg PO DAILY 06/14/23 02/23/24 History XL] Dulaglutide [Trulicity] 0.75 mg SQ WE 10/20/23 02/23/24 History Furosemide [Lasix] 80 mg PO DAILY 10/20/23 02/23/24 History hydrALAZINE HCL [Apresoline] 50 mg PO BID #60 11/01/23 02/23/24 Rx Acetaminophen Tab [Tylenol Tab] 500 mg PO Q6H PRN 02/23/24 02/23/24 History Docusate [Colace] 100 mg PO DAILY 02/23/24 02/23/24 History Famotidine [Pepcid] 10 mg PO DAILY 02/23/24 02/23/24 History Furosemide [Lasix] 40 mg PO HS 02/23/24 02/23/24 History HYDROcodone/APAP 5-325MG [[facility] 1 tab PO Q6H PRN 02/23/24 02/23/24 History 5-325] Isosorbide Dinitrate 30 mg PO DAILY 02/23/24 02/23/24 History Naloxone HCl 0.4 mg SQ ONCE PRN 02/23/24 02/23/24 History Naloxone HCl [Narcan] 4 mg NASAL ONCE PRN 02/23/24 02/23/24 History Ofloxacin 0.3% Otic Soln [Floxin 10 drops RIGHT EAR BID@0700,1600 02/23/24 02/23/24 History 0.3% Otic Soln] Pramox-Calamine 1-8% Lotion 1 applic TOPICAL TID@0700,1300,1900 02/23/24 02/23/24 History [Caladryl] Pregabalin [Lyrica] 50 mg PO Q12H PRN 02/23/24 02/23/24 History polyethylene glycoL 3350 [Miralax] 17 gm PO DAILY 02/23/24 02/23/24 History valACYclovir HCL [Valacyclovir] 1,000 mg PO TID@0700,1300,1900 02/23/24 02/23/24 History Allergies Allergy/AdvReac Type Severity Reaction Status Date / Time No Known Allergies Allergy Verified 02/23/24 10:21 Physical Exam Vitals: Vital Signs Temp Pulse Resp BP Pulse Ox 02/23/24 02:49 63 22 184/130 99 02/23/24 00:17 66 22 172/109 95 02/22/24 22:33 97.5 F L 71 22 179/107 95 Intake and Output 02/22/24 02/23/24 02/23/24 22:59 06:59 14:59 Other: Weight 182.344 kg Results 02/23/24 11:35 02/23/24 11:35 Cardiac Enzymes 02/22/24 02/22/24 02/23/24 Range/Units 23:23 23:23 03:42 AST 22 (14-36) U/L Troponin I 0.052 H* 0.062 H* (0.000-0.034) ng/mL Coagulation 02/22/24 Range/Units 23:23 PT 12.4 (10.0-12.5) sec APTT 26.7 (22.0-30.0) sec CBC 02/22/24 Range/Units 23:23 WBC 6.1 (3.8-10.6) k/uL RBC 4.56 (3.80-5.40) m/uL Hgb 11.2 L (11.4-16.0) gm/dL Hct 38.6 (34.0-46.0) % Plt Count 162 (150-450) k/uL Comprehensive Metabolic Panel 02/22/24 Range/Units 23:23 Sodium 140 (137-145) mmol/L Potassium 5.8 H (3.5-5.1) mmol/L Chloride 110 H (98-107) mmol/L Carbon Dioxide 24 (22-30) mmol/L BUN 59 H (7-17) mg/dL Creatinine 2.92 H (0.52-1.04) mg/dL Glucose 91 (74-99) mg/dL Calcium 8.8 (8.4-10.2) mg/dL AST 22 (14-36) U/L ALT 10 (4-34) U/L Alkaline Phosphatase 83 (38-126) U/L Total Protein 8.0 (6.3-8.2) g/dL Albumin 3.8 (3.5-5.0) g/dL Current Medications Generic Name Dose Route Start Last Admin Trade Name Freq PRN Reason Stop Dose Admin Furosemide 40 mg 02/23/24 02:45 02/23/24 02:56 Furosemide 10 Mg/Ml 4 Ml Vial IV 40 mg Q8H FARRAH Administration Intake and Output 02/22/24 02/23/24 02/23/24 22:59 06:59 14:59 Other: Weight 182.344 kg 02/22/24 23:23 02/22/24 23:23
[2024-02-23] MEDS: ISOSORBIDE DINITRATE 10 MG TAB PO SCH (16:01)
[2024-02-23] MEDS: OFLOXACIN 0.3% OPHTH DROPS 5 ML BOTTLE RIGHT EAR SCH (16:18)
[2024-02-23 16:22] LABS: ABG Base Excess 1.1 mmol/L; ABG HCO3 28 mmol/L (21-25); ABG Oxygen Saturation 94.8 % (94-97); ABG PCO2 54 mmHg (35-45); ABG PH 7.33 (7.35-7.45); ABG PO2 81 mmHg (83-108); Allen Test Performed? Yes
--- NOTE | 2024-02-23 16:52 | P.HPIM ---
History of Present Illness H&P Date: 02/23/24 Chief Complaint: As of breath 48-year-old morbidly obese female with a past medical history significant for congestive heart failure, morbid obesity, stage IV chronic kidney disease, pickwickian syndrome presenting to the ED with complaints of shortness of breath. Patient reports over the past few days has been more short of breath compared to usual. Reports that she has been taking her medications as prescribed. Denies chest pain. Denies fever or chills. No other complaints at this time. Patient is normally at 3 L at home. EKG sinus rhythm with no acute ST-T wave changes. Chest x-ray: Pulmonary vascular congestion. Small left pleural effusion. Severe cardiomegaly. Laboratory studies: WBC 6.1, hemoglobin 11.2. Sodium 140, potassium 5.8, BUN 59 creatinine 2.92. Troponin 0.052 and 0.062. proBNP 9760. Home cardiac medications: Eliquis 5 mg twice daily, Lasix 80 mg twice daily, hydralazine 50 mg twice daily, Imdur 30 mg daily, magnesium oxide 400 mg daily, Toprol XL 100 mg daily. Echocardiogram performed 12/19/2022 revealed EF of 30 to 35%, technically difficult study. Review of Systems REVIEW OF SYSTEMS: CONSTITUTIONAL: No fever, no malaise, no fatigue. HEENT: No recent visual problems or hearing problems. Denied any sore throat. CARDIOVASCULAR: No chest pain, orthopnea, PND, no palpitations, no syncope. PULMONARY: No shortness of breath, no cough, no hemoptysis. GASTROINTESTINAL: No diarrhea, no nausea, no vomiting, no abdominal pain. NEUROLOGICAL: No headaches, no weakness, no numbness. HEMATOLOGICAL: Denies any bleeding or petechiae. GENITOURINARY: Denies any burning micturition, frequency, or urgency. MUSCULOSKELETAL/RHEUMATOLOGICAL: Denies any joint pain, swelling, or any muscle pain. ENDOCRINE: Denies any polyuria or polydipsia. The rest of the 14-point review of systems is negative. Past Medical History Past Medical History: Coronary Artery Disease (CAD), Chest Pain / Angina, Heart Failure, Deep Vein Thrombosis (DVT), Hypertension, Osteoarthritis (OA), Renal Disease, Sleep Apnea/CPAP/BIPAP, Supraventricular Tachycardia (SVT) Additional Past Medical History / Comment(s): Other hx: Chronic CHF, home oxygen at 3L/[place] prn, NIR/no device, previous ventilator dependent respiratory failure, sinus pauses, CKD stage IV, anemia, lymphedema, arthritis bilateral knees, hiatal hernia, diverticular disease, UTIs, constipation, urine and bowel incontinence. History of Any Multi-Drug Resistant Organisms: VRE Date of last positivie culture/infection: 05/03/20 MDRO Source:: VRE URINE Past Surgical History: Section, Hernia Repair Additional Past Surgical History / Comment(s): abdominal hernia repair with mesh, cysts removed from stomach, EGD, colonoscopy Past Anesthesia/Blood Transfusion Reactions: No Reported Reaction Additional Past Anesthesia/Blood Transfusion Reaction / Comment(s): Pt has received blood in the past without reaction. Smoking Status: Unknown if ever smoked - Past Family History Father Family Medical History: Congestive Heart Failure (CHF) Additional Family Medical History / Comment(s): Father from CHF. Mother Family Medical History: Cancer, Hypertension, Sleep Apnea/CPAP/BIPAP Additional Family Medical History / Comment(s): Mother has had cancer removed from ear/head. Medications and Allergies Home Medications Medication Instructions Recorded Confirmed Type Magnesium Oxide [Mag-Ox] 400 mg PO HS 12/19/22 02/23/24 History Apixaban [Eliquis] 5 mg PO BID #60 tab 05/24/23 02/23/24 Rx Metoprolol Succinate (ER) [Toprol 100 mg PO DAILY 06/14/23 02/23/24 History XL] Dulaglutide [Trulicity] 0.75 mg SQ WE 10/20/23 02/23/24 History Furosemide [Lasix] 80 mg PO DAILY 10/20/23 02/23/24 History hydrALAZINE HCL [Apresoline] 50 mg PO BID #60 11/01/23 02/23/24 Rx Acetaminophen Tab [Tylenol Tab] 500 mg PO Q6H PRN 02/23/24 02/23/24 History Docusate [Colace] 100 mg PO DAILY 02/23/24 02/23/24 History Famotidine [Pepcid] 10 mg PO DAILY 02/23/24 02/23/24 History Furosemide [Lasix] 40 mg PO HS 02/23/24 02/23/24 History HYDROcodone/APAP 5-325MG [[place] 1 tab PO Q6H PRN 02/23/24 02/23/24 History 5-325] Isosorbide Dinitrate 30 mg PO DAILY 02/23/24 02/23/24 History Naloxone HCl 0.4 mg SQ ONCE PRN 02/23/24 02/23/24 History Naloxone HCl [Narcan] 4 mg NASAL ONCE PRN 02/23/24 02/23/24 History Ofloxacin 0.3% Otic Soln [Floxin 10 drops RIGHT EAR BID@0700,1600 02/23/24 History 0.3% Otic Soln] Pramox-Calamine 1-8% Lotion 1 applic TOPICAL TID@0700,1300,1900 02/23/24 02/23/24 History [Caladryl] Pregabalin [Lyrica] 50 mg PO Q12H PRN 02/23/24 02/23/24 History polyethylene glycoL 3350 [Miralax] 17 gm PO DAILY 02/23/24 02/23/24 History valACYclovir HCL [Valacyclovir] 1,000 mg PO TID@0700,1300,1900 02/23/24 02/23/24 History Allergies Allergy/AdvReac Type Severity Reaction Status Date / Time No Known Allergies Allergy Verified 02/23/24 10:21 Physical Exam Vitals: Vital Signs Temp Pulse Pulse Resp BP BP Pulse Ox 02/23/24 08:00 97.9 F 129 H 20 166/117 97 02/23/24 02:49 63 22 184/130 99 02/23/24 00:17 66 22 172/109 95 02/22/24 22:33 97.5 F L 71 22 179/107 95 Intake and Output 02/22/24 02/23/24 02/23/24 22:59 06:59 14:59 Other: Voiding Method External Catheter Weight 182.344 kg 182.344 kg Limitations: physical limitation (Secondary to morbid obesity) General appearance: alert Neck exam: Present: normal inspection Respiratory exam: Present: decreased breath sounds (Difficult auscultation secondary to body habitus, decreased breath sounds), other (Conversational dyspnea) Cardiovascular Exam: Present: regular rate GI/Abdominal exam: Present: soft. Absent: distended, tenderness, guarding, rebound, rigid Neurological exam: Present: alert, oriented X3 Skin exam: Present: warm, dry Results CBC & Chem 7: 02/23/24 11:35 02/23/24 11:35 Labs: Abnormal Lab Results - Last 24 Hours (Table) 02/22/24 02/22/24 02/22/24 Range/Units 23:23 23:23 23:23 Hgb 11.2 L (11.4-16.0) gm/dL MCH 24.6 L (25.0-35.0) pg MCHC 29.1 L (31.0-37.0) g/dL RDW 16.7 H (11.5-15.5) % Lymphocytes # 0.8 L (1.0-4.8) k/uL INR 1.2 H (<1.2) Potassium 5.8 H (3.5-5.1) mmol/L Chloride 110 H (98-107) mmol/L BUN 59 H (7-17) mg/dL Creatinine 2.92 H (0.52-1.04) mg/dL Plasma Lactic Acid Antony (0.7-2.0) mmol/L Troponin I (0.000-0.034) ng/mL 02/22/24 02/22/24 02/23/24 Range/Units 23:23 23:23 03:42 Hgb (11.4-16.0) gm/dL MCH (25.0-35.0) pg MCHC (31.0-37.0) g/dL RDW (11.5-15.5) % Lymphocytes # (1.0-4.8) k/uL INR (<1.2) Potassium (3.5-5.1) mmol/L Chloride (98-107) mmol/L BUN (7-17) mg/dL Creatinine (0.52-1.04) mg/dL Plasma Lactic Acid Antony 0.5 L (0.7-2.0) mmol/L Troponin I 0.052 H* 0.062 H* (0.000-0.034) ng/mL Thrombosis Risk Factor Assmnt - Choose All That Apply Any of the Below Risk Factors Present?: Yes Each Factor Represents 1 point: Age 41-60 years, Heart failure (<1month), Obesity (BMI >25) Other Risk Factors: Yes Each Risk Factor Represents 2 Points: Patient confined to bed Thrombosis Risk Factor Assessment Total Risk Factor Score: 5 Thrombosis Risk Factor Assessment Level: High Risk Assessment and Plan Assessment: 1. Acute on chronic hypoxic respiratory failure -- Related to acute exacerbation of CHF -- We will continue with O2 per nasal cannula with plans to titrate or wean as able 2. Acute on chronic systolic CHF -- Patient has been placed on Lasix 40 mg IV every 8 hours; will monitor strict KEENAN's, daily weights, low-salt and fluid restricted diet 3. Hyperkalemia; potassium level of 5.8 in the ED and is down to 5.7 this morning; we will monitor electrolytes closely and treat as needed 4. Hypertensive emergency; -- Patient has been evaluated by cardiology and recommending to increase hydralazine up to 100 mg 3 times daily and change Isordil to 30 mg p.o. 3 times daily 6. Metabolic encephalopathy; likely related to acute hypoxic respiratory failure -- We will consult neurology 7. Paroxysmal atrial fibrillation; currently normal sinus rhythm; patient is anticoagulated with Eliquis 5 mg p.o. twice daily 8. CKD stage IV; creatinine improved to 2.78 from 2.9 yesterday; we will consult nephrology 9. History of DVT; remains on home dose of Eliquis DVT prophylaxis; SCDs/Eliquis CODE STATUS; full code
[2024-02-23] MEDS: MAGNESIUM OXIDE 400 MG TAB PO SCH (23:02)
[2024-02-24] MEDS: HYDROcodone/APAP 5-325MG 1 EACH TAB PO PRN (02:05)
[2024-02-24] MEDS: amLODIPine 10 MG TAB PO SCH (02:05)
[2024-02-24] MEDS: hydrALAZINE HCL 20 MG/ML 1 ML VIAL IVP STA (02:05)
[2024-02-24 06:39] LABS: Anisocytosis Slight; Basophils % (A) 0 %; Eosinophils # (A) 0.2 k/uL (0-0.7); Eosinophils % (A) 2 %; HCT 38.2 % (34.0-46.0); HGB 10.9 gm/dL (11.4-16.0); Hypochromasia Marked; Lymphocytes # (A) 0.8 k/uL (1.0-4.8); Lymphocytes % (A) 11 %; MCH 24.1 pg (25.0-35.0); MCHC 28.6 g/dL (31.0-37.0); MCV 84.3 fL (80.0-100.0); Mean Platelet Volume 9.4; Monocytes # (A) 0.4 k/uL (0-1.0); Monocytes % (A) 6 %; Neutrophils # (A) 5.6 k/uL (1.3-7.7); Neutrophils % (A) 79 %; Platelet Count 157 k/uL (150-450); RBC 4.53 m/uL (3.80-5.40); RDW 16.8 % (11.5-15.5); WBC 7.1 k/uL (3.8-10.6)
[2024-02-24 06:50] LABS: African American GFR (CKD) 21 (>60 ml/min/1.73 sqM); Anion Gap 6 mmol/L; Blood Urea Nitrogen 59 mg/dL (7-17); Carbon Dioxide 27 mmol/L (22-30); Chloride 108 mmol/L (98-107); Glucose 78 mg/dL (74-99); Non-African American GFR(CKD) 18 (>60 ml/min/1.73 sqM); Sodium 141 mmol/L (137-145)
[2024-02-24] MEDS ORDERED: ISOSORBIDE DINITRATE 10 MG TAB PO SCH (09:00)
[2024-02-24] MEDS: FAMOTIDINE 20 MG TAB PO SCH (10:00)
[2024-02-24] MEDS: DOCUSATE 100 MG CAP PO SCH (10:00)
[2024-02-24] MEDS: polyethylene glycoL 3350 17 GM POWD.PACK PO SCH (10:02)
--- NOTE | 2024-02-24 11:08 | P.NPCON ---
History of Present Illness - Reason for Consult chronic renal failure - History of Present Illness Reason for consultation: Chronic kidney disease History of present illness: Patient is a 48-year-old female seen in renal consultation for chronic kidney disease. Patient has chronic kidney disease stage IV baseline creatinine near 3. Creatinine 2.94 today. Patient resides in extended-care facility and came to the hospital due to chest pressure. Patient states she developed chest pressure about 2 days ago and also admits to shortness of breath. She is currently on nasal cannula. She denies history of diabetes. Denies history of coronary artery disease. Denies use of nonsteroidals. Denies nausea vomiting or diarrhea. Patient states she has been taking Lasix outpatient. Admits to good urine output. Denies gross hematuria or dysuria. Echocardiogram from November 2022 showed ejection fraction of 30 to 35%. Kidney ultrasound from July 2023 showed no hydronephrosis in the right kidney but left kidney was not visualized. No hydronephrosis was noted on CT. Currently maintained on IV Lasix. Nonoliguric. Has external catheter. Vital signs are stable. General: No acute distress. HEENT: Head exam is unremarkable. On nasal cannula. LUNGS: No audible rhonchi or wheezes. HEART: Rate and Rhythm are regular. ABDOMEN: Obese, nontender. EXTREMITITES: Trace edema. Past Medical History Past Medical History: Coronary Artery Disease (CAD), Chest Pain / Angina, Heart Failure, Deep Vein Thrombosis (DVT), Hypertension, Osteoarthritis (OA), Renal D isease, Sleep Apnea/CPAP/BIPAP, Supraventricular Tachycardia (SVT) Additional Past Medical History / Comment(s): Other hx: Chronic CHF, home oxygen at 3L/[place] prn, NIR/no device, previous ventilator dependent respiratory failure, sinus pauses, CKD stage IV, anemia, lymphedema, arthritis bilateral knees, hiatal hernia, diverticular disease, UTIs, constipation, urine and bowel incontinence. History of Any Multi-Drug Resistant Organisms: VRE Date of last positivie culture/infection: 05/03/20 MDRO Source:: VRE URINE Past Surgical History: Section, Hernia Repair Additional Past Surgical History / Comment(s): abdominal hernia repair with mesh , cysts removed from stomach, EGD, colonoscopy Past Anesthesia/Blood Transfusion Reactions: No Reported Reaction Additional Past Anesthesia/Blood Transfusion Reaction / Comment(s): Pt has received blood in the past without reaction. Smoking Status: Unknown if ever smoked - Past Family History Father Family Medical History: Congestive Heart Failure (CHF) Additional Family Medical History / Comment(s): Father from CHF. Mother Family Medical History: Cancer, Hypertension, Sleep Apnea/CPAP/BIPAP Additional Family Medical History / Comment(s): Mother has had cancer removed from ear/head. Medications and Allergies Home Medications Medication Instructions Recorded Confirmed Type Magnesium Oxide [Mag-Ox] 400 mg PO HS 12/19/22 02/23/24 History Apixaban [Eliquis] 5 mg PO BID #60 tab 05/24/23 02/23/24 Rx Metoprolol Succinate (ER) [Toprol 100 mg PO DAILY 06/14/23 02/23/24 History XL] Dulaglutide [Trulicity] 0.75 mg SQ WE 10/20/23 02/23/24 History Furosemide [Lasix] 80 mg PO DAILY 10/20/23 02/23/24 History hydrALAZINE HCL [Apresoline] 50 mg PO BID #60 11/01/23 02/23/24 Rx Acetaminophen Tab [Tylenol Tab] 500 mg PO Q6H PRN 02/23/24 02/23/24 History Docusate [Colace] 100 mg PO DAILY 02/23/24 02/23/24 History Famotidine [Pepcid] 10 mg PO DAILY 02/23/24 02/23/24 History Furosemide [Lasix] 40 mg PO HS 02/23/24 02/23/24 History HYDROcodone/APAP 5-325MG [[place] 1 tab PO Q6H PRN 02/23/24 02/23/24 History 5-325] Isosorbide Dinitrate 30 mg PO DAILY 02/23/24 02/23/24 History Naloxone HCl 0.4 mg SQ ONCE PRN 02/23/24 02/23/24 History Naloxone HCl [Narcan] 4 mg NASAL ONCE PRN 02/23/24 02/23/24 History Ofloxacin 0.3% Otic Soln [Floxin 10 drops RIGHT EAR BID@0700,1600 02/23/24 02/23/24 History 0.3% Otic Soln] Pramox-Calamine 1-8% Lotion 1 applic TOPICAL TID@0700,1300,1900 02/23/24 History [Caladryl] Pregabalin [Lyrica] 50 mg PO Q12H PRN 02/23/24 02/23/24 History polyethylene glycoL 3350 [Miralax] 17 gm PO DAILY 02/23/24 02/23/24 History valACYclovir HCL [Valacyclovir] 1,000 mg PO TID@0700,1300,1900 02/23/24 02/23/24 History Allergies Allergy/AdvReac Type Severity Reaction Status Date / Time No Known Allergies Allergy Verified 02/23/24 10:21 Physical Exam Vitals: Vital Signs Temp Pulse Pulse Resp BP BP Pulse Ox 02/24/24 06:56 142/82 02/24/24 04:20 70 20 177/103 93 L 02/24/24 02:10 181/96 02/24/24 01:45 182/103 02/24/24 01:13 196/93 02/24/24 00:20 76 20 173/96 91 L 02/23/24 22:45 97.7 F 74 19 181/103 92 L 02/23/24 21:52 98.1 F 02/23/24 21:19 64 20 128/79 98 02/23/24 19:03 82 22 128/83 94 L 02/23/24 16:27 95 02/23/24 15:42 67 24 163/109 97 02/23/24 11:53 98 F 76 19 158/107 98 Intake and Output 02/23/24 02/24/24 02/24/24 22:59 06:59 14:59 Intake Total 118 Output Total 850 Balance -850 118 Intake: Oral 118 Output: Urine 850 Other: Voiding Method External Catheter External Catheter # Voids 3 # Bowel Movements 1 Weight 182.52 kg Results - Lab Results Most recent lab results ABG pH 7.33 (7.35-7.45) L 02/23/24 16:17 ABG pCO2 54 mmHg (35-45) H 02/23/24 16:17 ABG pO2 81 mmHg (83-108) L 02/23/24 16:17 ABG HCO3 28 mmol/L (21-25) H 02/23/24 16:17 ABG O2 Saturation 94.8 % (94-97) 02/23/24 16:17 Calcium 9.0 mg/dL (8.4-10.2) 02/24/24 06:17 02/24/24 06:17 02/24/24 06:17 Assessment and Plan Plan: Assessment: 1. Chronic kidney disease stage IV baseline creatinine near 3 secondary to cardiorenal syndrome. Serologies in the past have been negative except for positive THANH. ?Secondary FSGS from obesity. Creatinine 2.94 today. 2. Volume overload. 3. Acute on chronic systolic CHF ejection fraction of 30 to 35%. 4. Hypertension with chronic kidney disease. 5. Morbid obesity. Plan: Maintain IV Lasix. Low-salt diet and 1500 cc fluid restriction. Avoid nephrotoxins. Continue to monitor renal function and urine output. Follow-up echocardiogram. Repeat UA. Home antihypertensives resumed. Blood pressure better controlled. Thank you for the consultation. I will continue to follow the patient with you during her hospital stay.
--- NOTE | 2024-02-24 13:22 | P.PN ---
Subjective Progress Note Date: 02/24/24 onsult reason: congestive heart failure (Exacerbation) History of present illness: History of present illness: This is a 48-year-old female patient previously seen in the office by Dr. Collins in 2016 with past medical history of obstructive sleep apnea, morbid obesity, chronic systolic heart failure, chronic kidney disease, chronic hypoxic respiratory failure, paroxysmal atrial fibrillation, history of DVT, chronic lower extremity lymphedema. We have been asked to evaluate the patient for CHF exacerbation. Patient is confused difficult to understand with slurred speech. She apparently had shingles and following treatment she became more short of breath. She lives at [facility] for many years. Patient complains of chest pressure all the time abdominal pain all the time. She has had increased weakness, increasing sleeping and fatigue. Patient received 1 dose of IV hydralazine 20 mg and started on IV Lasix 40 mg every 8 hours. She is seen today in the emergency center waiting for bed on the cardiac stepdown unit. She denies history of smoking and no alcohol abuse. EKG sinus rhythm with no acute ST-T wave changes. Chest x-ray: Pulmonary vascular congestion. Small left pleural effusion. Severe cardiomegaly. Laboratory studies: WBC 6.1, hemoglobin 11.2. Sodium 140, potassium 5.8, BUN 59 creatinine 2.92. Troponin 0.052 and 0.062. proBNP 9760. Home cardiac medications: Eliquis 5 mg twice daily, Lasix 80 mg twice daily, hydralazine 50 mg twice daily, Imdur 30 mg daily, magnesium oxide 400 mg daily, Toprol XL 100 mg daily. Echocardiogram performed 12/19/2022 revealed EF of 30 to 35%, technically difficult study. 02/23 Patient is more awake alert, speech is understandable. She states she is feeling so-so and she has a little heaviness in her chest. Blood pressure readings are much improved from yesterday at 142/82, heart rate is in the 60s and 70s, pulse ox 93% on 2 L nasal cannula. Repeat blood work reveals hemoglobin of 10.9. BUN 59 creatinine 2.94. Patient has been maintained on IV Lasix 40 mg every 8 hours. Patient has a negative fluid balance. Telemetry sinus rhythm. Physical examination: Gen: This is a morbidly obese 48-year-old black female in no acute distress VS: reviewed HEENT: Head is atraumatic, normocephalic. Pupils equal, round. Sclerae is anicteric. NECK: Supple. No JVD. LUNGS: Clear to auscultation. No wheezes or rhonchi. No intercostal retractions. HEART: Regular rate and rhythm. No murmur. ABDOMEN: Soft No tenderness. EXTREMITIES: Positive left lower extremity lymphedema, trace lower extremity edema, no calf tenderness. NEUROLOGICAL: Patient is awake, confused, slurred speech. Assessment: Acute on chronic hypoxic respiratory failure Acute on chronic systolic heart failure, EF 30 to 35% Hyperkalemia Uncontrolled hypertension/hypertensive emergency Metabolic encephalopathy Shingles Chronic kidney disease stage IV Paroxysmal atrial fibrillation currently in sinus rhythm History of DVT Morbid obesity Obstructive sleep apnea Plan: Continue patient's home cardiac medications Continue IV Lasix 40 mg decrease frequency to every 12 hours Continue increased dose of hydralazine to 100 mg 3 times daily, and increase frequency of Isordil to 30 mg 3 times daily Monitor KEENAN, daily weights, electrolytes and renal function Obtain 2-D echocardiogram and Doppler study to assess cardiac structure and function Recommend ABGs and neurological workup Further recommendations to follow based upon clinical course Thank you kindly for this consultation. Nurse practitioner note has been reviewed, I agree with documented findings and plan of care. Patient was seen and examined. Objective - Vital Signs Vital signs: Vital Signs Temp 97.7 F 02/23/24 22:45 Pulse 70 02/24/24 04:20 Resp 20 02/24/24 04:20 BP 142/82 02/24/24 06:56 Pulse Ox 93 L 02/24/24 04:20 FiO2 Intake & Output 02/23/24 02/24/24 02/24/24 18:59 06:59 18:59 Intake Total 120 118 Output Total 1000 850 Balance -880 -850 118 Weight 182.344 kg 182.52 kg Intake: Oral 120 118 Output: Urine 1000 850 Other: Voiding Method External Catheter External Catheter # Voids 3 # Bowel Movements 1 - Labs CBC & Chem 7: 02/24/24 06:17 02/24/24 06:17 Labs: Abnormal Lab Results - Last 24 Hours (Table) 02/23/24 02/23/24 02/23/24 Range/Units 11:35 11:35 16:17 Hgb 11.2 L (11.4-16.0) gm/dL MCH 24.0 L (25.0-35.0) pg MCHC 27.6 L (31.0-37.0) g/dL RDW 16.5 H (11.5-15.5) % Lymphocytes # 0.8 L (1.0-4.8) k/uL ABG pH 7.33 L (7.35-7.45) ABG pCO2 54 H (35-45) mmHg ABG pO2 81 L (83-108) mmHg ABG HCO3 28 H (21-25) mmol/L Potassium 5.7 H (3.5-5.1) mmol/L Chloride 109 H (98-107) mmol/L BUN 58 H (7-17) mg/dL Creatinine 2.78 H (0.52-1.04) mg/dL Ammonia (<30) umol/L 02/23/24 02/24/24 02/24/24 Range/Units 17:27 06:17 06:17 Hgb 10.9 L (11.4-16.0) gm/dL MCH 24.1 L (25.0-35.0) pg MCHC 28.6 L (31.0-37.0) g/dL RDW 16.8 H (11.5-15.5) % Lymphocytes # 0.8 L (1.0-4.8) k/uL ABG pH (7.35-7.45) ABG pCO2 (35-45) mmHg ABG pO2 (83-108) mmHg ABG HCO3 (21-25) mmol/L Potassium (3.5-5.1) mmol/L Chloride 108 H (98-107) mmol/L BUN 59 H (7-17) mg/dL Creatinine 2.94 H (0.52-1.04) mg/dL Ammonia 74 H (<30) umol/L
[2024-02-24] MEDS ORDERED: NON FORMULARY DRUG (Naloxone Hcl [Narcan] 4 MG Each) NASAL PRN (14:36)
[2024-02-24] MEDS: valACYclovir HCL 1,000 MG TABLET PO SCH ×2 (16:00→16:33)
[2024-02-24] MEDS: PREGABALIN 50 MG CAP PO PRN (18:13)
[2024-02-24] MEDS: FUROSEMIDE 10 MG/ML 4 ML VIAL IV SCH (20:15)
[2024-02-25] MEDS ORDERED: ZINC OXIDE PASTE (Z-GUARD) 1 APPLIC TOPICAL PRN (01:51)
--- NOTE | 2024-02-25 02:22 | PN ---
PROGRESS NOTE DATE OF SERVICE: 02/24/2024 SUBJECTIVE: This is a 48-year-old woman, who was admitted with shortness of breath, also to have CHF acute exacerbation. The patient has significant cardiomegaly also. PAST MEDICAL HISTORY: Reviewed. REVIEW OF SYSTEMS: A 14-point review is negative except as mentioned earlier. CURRENT MEDICATIONS: Reviewed include Eliquis and Lasix. Doses and rest of medications reviewed. PHYSICAL EXAMINATION: VITAL SIGNS: Pulse is 60, blood pressure 125/70, respirations 16. NECK: No JVD. CARDIOVASCULAR: S1, S2. RESPIRATIONS: Bilateral scattered rhonchi and crackles. ABDOMEN: Soft obese. LEGS: No edema. NERVOUS SYSTEM: Nonfocal. LABORATORY DATA: WBC 7.1, and creatinine is 2.94. The patient has significant shingles and pain on the left T6-7 segment also. Otherwise, labs are reviewed. ASSESSMENT: 1. Congestive heart failure acute exacerbation with acute on chronic systolic dysfunction, ejection fraction 30% to 35%. 2. Severe shingles on the left T6-7 segment with severe pain. 3. Hyperkalemia. 4. Acute respiratory failure. 5. Hypertensive urgency. 6. Metabolic encephalopathy. 7. Paroxysmal atrial ablation. 8. Multiple complex medical issues. RECOMMENDATIONS: Recommend to continue current management and continue symptomatic treatment. The patient was started on Lasix IV. We will monitor the fluid electrolyte balance closely and fluid restriction. Symptomatic treatment of the pain with Valtrex. Closely follow with multiple consultants. Prognosis guarded. Further recommendations to follow. Discussed with the patient. Dr. Stanford will follow. MMODL / IJN: [id number] /
[2024-02-25 03:43] LABS: Appearance,Urine Cloudy (Clear); Bacteria,Urine Occasional /hpf; Bilirubin,Urine Negative (Negative); Blood,Urine Trace (Negative); Color,Urine Colorless; Glucose,Urine (UA) Negative (Negative); Ketones,Urine Negative (Negative); Leukocyte Esterase,Urine Moderate (Negative); Nitrite,Urine Negative (Negative); PH, Urine 7.5 (5.0-8.0); Protein,Urine Trace (Negative); RBC,Urine 11 /hpf (0-5); Specific Gravity,Urine 1.008 (1.001-1.035); Squamous Epithelial Cell,Urine 2 /hpf (0-4); Urobilinogen,Urine <2.0 mg/dL (<2.0); WBC,Urine 2 /hpf (0-5)
--- NOTE | 2024-02-25 07:27 | XR ---
EXAMINATION TYPE: XR chest 1V portable DATE OF EXAM: 02/25/2024 Comparison: 02/23/2024 Clinical History: 48-year-old female CHF Findings: Patient is rotated towards the left altering the normal cardiac and mediastinal contours. Heart silho uette appears enlarged. Diffuse interstitial hazy opacities. Left basilar underpenetrated and not wel l assessed. Impression: Overall appearance appears to have worsened. The exam is limited by portable technique, body habitus, and rotation. Suspect CHF now with developing pulmonary edema.
[2024-02-25 08:46] LABS: African American GFR (CKD) 22 (>60 ml/min/1.73 sqM); Anion Gap 6 mmol/L; Blood Urea Nitrogen 59 mg/dL (7-17); Calcium 8.9 mg/dL (8.4-10.2); Carbon Dioxide 27 mmol/L (22-30); Chloride 108 mmol/L (98-107); Glucose 81 mg/dL (74-99); Magnesium 2.9 mg/dL (1.6-2.3); Non-African American GFR(CKD) 19 (>60 ml/min/1.73 sqM); Sodium 141 mmol/L (137-145)
[2024-02-25 09:09] LABS: Anisocytosis Slight; Basophils % (A) 0 %; Eosinophils # (A) 0.2 k/uL (0-0.7); Eosinophils % (A) 2 %; HGB 11.3 gm/dL (11.4-16.0); Hypochromasia Marked; Lymphocytes # (A) 0.7 k/uL (1.0-4.8); Lymphocytes % (A) 11 %; MCH 24.4 pg (25.0-35.0); MCHC 29.1 g/dL (31.0-37.0); MCV 83.9 fL (80.0-100.0); Mean Platelet Volume 8.6; Monocytes # (A) 0.5 k/uL (0-1.0); Monocytes % (A) 7 %; Neutrophils # (A) 4.8 k/uL (1.3-7.7); Neutrophils % (A) 76 %; Platelet Count 138 k/uL (150-450); RBC 4.65 m/uL (3.80-5.40); RDW 16.9 % (11.5-15.5); WBC 6.3 k/uL (3.8-10.6)
--- NOTE | 2024-02-25 12:11 | P.PN ---
Subjective patient is seen for follow-up for chronic kidney disease. Renal function has been stable with serum creatinine at 2.8-2.9 mg/dL. Patient is currently being diuresed. No significant complaints today. Objective - Vital Signs Vital signs: Vital Signs Temp 98.2 F 02/24/24 20:20 Pulse 87 02/25/24 08:00 Resp 16 02/25/24 08:00 BP 126/74 02/25/24 08:00 Pulse Ox 90 L 02/25/24 08:00 FiO2 Intake & Output 02/24/24 02/25/24 02/25/24 18:59 06:59 18:59 Intake Total 456 118 Output Total 975 1500 Balance -519 -1500 118 Weight 182 kg Intake: Oral 456 118 Output: Urine 975 1500 Other: Voiding Method External Catheter External Catheter External Catheter # Bowel Movements 1 - Exam patient is awake, comfortable, no acute distress. Examination of the heart S1 and S2 Examination of the lungs bilateral breath sounds are heard with decreased breath sounds at the bases Abdomen is soft morbidly obese Examination of lower extremities shows chronic edema bilaterally HOP STRAINER exam grossly intact - Labs CBC & Chem 7: 02/25/24 07:58 02/25/24 07:58 Labs: Abnormal Lab Results - Last 24 Hours (Table) 02/25/24 02/25/24 02/25/24 Range/Units 01:55 07:58 07:58 Hgb 11.3 L (11.4-16.0) gm/dL MCH 24.4 L (25.0-35.0) pg MCHC 29.1 L (31.0-37.0) g/dL RDW 16.9 H (11.5-15.5) % Plt Count 138 L (150-450) k/uL Lymphocytes # 0.7 L (1.0-4.8) k/uL Chloride 108 H (98-107) mmol/L BUN 59 H (7-17) mg/dL Creatinine 2.83 H (0.52-1.04) mg/dL Magnesium 2.9 H (1.6-2.3) mg/dL Urine Appearance Cloudy H (Clear) Urine Protein Trace H (Negative) Urine Blood Trace H (Negative) Ur Leukocyte Esterase Moderate H (Negative) Urine RBC 11 H (0-5) /hpf Urine Bacteria Occasional H (None) /hpf Assessment and Plan Assessment: 1. Chronic kidney disease stage IV baseline creatinine near 3 secondary to cardiorenal syndrome. Serologies in the past have been negative except for positive THANH. ?Secondary FSGS from obesity. Creatinine 2.83 today. 2. Volume overload. 3. Acute on chronic systolic CHF ejection fraction of 30 to 35%. 4. Hypertension with chronic kidney disease. 5. Morbid obesity. Plan: continue to diurese patient. Repeat labs in a.m.
--- NOTE | 2024-02-25 12:54 | PN ---
PROGRESS NOTE DATE OF SERVICE: 02/25/2024 CHIEF COMPLAINT: Shortness of breath and heart failure. HISTORY OF PRESENT ILLNESS: This lady is breathing a little bit more easily. Apparently, she has been having some trouble with herpes zoster on the back as well. PHYSICAL EXAMINATION: CHEST: Actually quite clear. CARDIAC: Normal. ABDOMEN: Protuberant. IMPRESSION: 1. Acute on chronic congestive heart failure. 2. Cardiomyopathy. 3. Morbid obesity. 4. Herpes zoster. 5. General debility and inability to ambulate. PLAN: 1. Continue with diuresis. 2. Discharge back to [facility] as soon as she is stable. MMODL / IJN: [id number] /
[2024-02-25 15:40] VITALS: BMI 62.8
--- NOTE | 2024-02-25 18:05 | P.PN ---
Subjective Patient is resting in bed. She was admitted with CHF exacerbation initially she was confused difficult to understand and has slurred speech but today she is very alert and oriented She has received IV Lasix BUN however is elevated and so his creatinine On examination Breath sounds are reduced bilaterally Heart sounds are regular no murmurs Morbid obesity noted Lower extremity lymphedema Heart rates are in the 70s Blood pressure 126/74 mmHg Impression Acute on chronic hypoxic respiratory failure with morbid obesity Acute on chronic systolic heart failure ejection fraction 30-35% Hyperkalemia with stage IV chronic kidney disease Obstructive sleep apnea plan continue diuresis Increase the dose of metoprolol succinate to 100 mg p.o. 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 Objective - Vital Signs Vital signs: Vital Signs Temp 98.2 F 02/24/24 20:20 Pulse 68 02/25/24 16:00 Resp 20 02/25/24 16:00 BP 120/75 02/25/24 16:00 Pulse Ox 94 L 02/25/24 16:00 FiO2 Intake & Output 02/24/24 02/25/24 02/25/24 18:59 06:59 18:59 Intake Total 456 236 Output Total 975 1500 Balance -519 -1500 236 Weight 182 kg 182 kg Intake: Oral 456 236 Output: Urine 975 1500 Other: Voiding Method External Catheter External Catheter External Catheter # Bowel Movements 1 - Labs CBC & Chem 7: 02/25/24 07:58 02/25/24 07:58 Labs: Abnormal Lab Results - Last 24 Hours (Table) 02/25/24 02/25/24 02/25/24 Range/Units 01:55 07:58 07:58 Hgb 11.3 L (11.4-16.0) gm/dL MCH 24.4 L (25.0-35.0) pg MCHC 29.1 L (31.0-37.0) g/dL RDW 16.9 H (11.5-15.5) % Plt Count 138 L (150-450) k/uL Lymphocytes # 0.7 L (1.0-4.8) k/uL Chloride 108 H (98-107) mmol/L BUN 59 H (7-17) mg/dL Creatinine 2.83 H (0.52-1.04) mg/dL Magnesium 2.9 H (1.6-2.3) mg/dL Urine Appearance Cloudy H (Clear) Urine Protein Trace H (Negative) Urine Blood Trace H (Negative) Ur Leukocyte Esterase Moderate H (Negative) Urine RBC 11 H (0-5) /hpf Urine Bacteria Occasional H (None) /hpf
[2024-02-25] MEDS: FUROSEMIDE 10 MG/ML 10 ML VIAL IV SCH (18:33)
--- NOTE | 2024-02-25 18:50 | CA ---
Transthoracic Echo Report Name: Ankita Sorto Age: 48 Gender: F : 1975 Exam Date: 02/25/2024 15:37 Exam Location: [place] [facility] Ht (in): 67 Wt (lb): 402 Ordering Physician: Fabi Gusman Attending/Referring Phys: [id number], Naseem Blow Down Operator Ingrid Bailon RDCS Procedure CPT: Indications: LVF Cardiac Hx: Technical Quality: Very technically difficult study Contrast 1: Definity Total Dose (mL): 2 Contrast 2: Total Dose (mL): MEASUREMENTS (Male / Female) Normal Values FINDINGS Left Ventricle Left ventricle not well visualized. Left ventricular ejection fraction is estimated at 50 %. Right Ventricle Right ventricle not well visualized. Right Atrium Right atrium not well visualized. Left Atrium Left atrium not well visualized. Mitral Valve Mitral valve not well visualized. Aortic Valve Aortic valve not well visualized. Tricuspid Valve Tricuspid valve not well visualized. Pulmonic Valve Pulmonic valve not well visualized. Pericardium No pericardial effusion. Aorta Aortic root and proximal ascending aorta not well visualized. CONCLUSIONS Very technically difficult study. Limited views LVEF estimated at 50%. No pericardial effusion. Wall motion abnormality could not be commented upon Valvular function cannot be commented upon Previewed by: Dr Justin Tolbert (Electronically Signed) Final Date: 25 Feb 2024 18:49
[2024-02-26] MEDS: METOPROLOL SUCCINATE (ER) 100 MG TAB.ER.24H PO SCH (08:52)
[2024-02-26] MEDS: valACYclovir HCL 1,000 MG TABLET PO SCH (08:54)
[2024-02-26] MEDS: ACETAMINOPHEN TAB 500 MG TAB PO PRN (12:03)
--- NOTE | 2024-02-26 13:59 | P.PN ---
Subjective HISTORY OF PRESENT ILLNESS: This is a 48-year-old female patient previously seen in the office by Dr. Collins in 2016 with past medical history of obstructive sleep apnea, morbid obesity, chronic systolic heart failure, chronic kidney disease, chronic hypoxic respiratory failure, paroxysmal atrial fibrillation, history of DVT, chronic lower extremity lymphedema. We have been asked to evaluate the patient for CHF exacerbation. Patient is confused difficult to understand with slurred speech. She apparently had shingles and following treatment she became more short of breath. She lives at [facility] for many years. Patient complains of chest pressure all the time abdominal pain all the time. She has had increased weakness, increasing sleeping and fatigue. Patient received 1 dose of IV hydralazine 20 mg and started on IV Lasix 40 mg every 8 hours. She is seen today in the emergency center waiting for bed on the cardiac stepdown unit. She denies history of smoking and no alcohol abuse. EKG sinus rhythm with no acute ST-T wave changes. Chest x-ray: Pulmonary vascular congestion. Small left pleural effusion. Sever e cardiomegaly. Laboratory studies: WBC 6.1, hemoglobin 11.2. Sodium 140, potassium 5.8, BUN 59 creatinine 2.92. Troponin 0.052 and 0.062. proBNP 9760. Home cardiac medications: Eliquis 5 mg twice daily, Lasix 80 mg twice daily, hydralazine 50 mg twice daily, Imdur 30 mg daily, magnesium oxide 400 mg daily, Toprol XL 100 mg daily. Echocardiogram performed 12/19/2022 revealed EF of 30 to 35%, technically difficult study. 02/23 Patient is more awake alert, speech is understandable. She states she is feeling so-so and she has a little heaviness in her chest. Blood pressure readings are much improved from yesterday at 142/82, heart rate is in the 60s and 70s, pulse ox 93% on 2 L nasal cannula. Repeat blood work reveals hemoglobin of 10.9. BUN 59 creatinine 2.94. Patient has been maintained on IV Lasix 40 mg every 8 hours. Patient has a negative fluid balance. Telemetry sinus rhythm. 02/26/2024 Patient examined this morning at the bedside. Patient currently denies chest pain or pressure. She denies shortness of breath. She remains on IV Lasix 80 mg every 12 hours per primary medicine. PHYSICAL EXAM: VITAL SIGNS: Reviewed. GENERAL: Well-developed in no acute distress. NECK: Supple. No JVD or thyromegaly LUNGS: Respirations even and unlabored. Lungs essentially clear to auscultation bilaterally. HEART: Regular rate and rhythm. S1 and S2 heard. EXTREMITIES: Normal range of motion. No clubbing or cyanosis. Peripheral pulses intact. No lower extremity edema ASSESSMENT: Acute on chronic hypoxic respiratory failure Acute on chronic systolic heart failure, EF 30 to 35% Hyperkalemia Uncontrolled hypertension/hypertensive emergency Metabolic encephalopathy Shingles Chronic kidney disease stage IV Paroxysmal atrial fibrillation currently in sinus rhythm History of DVT Morbid obesity Obstructive sleep apnea PLAN: Continue current cardiac medications Continue IV diuretics per nephrology/primary medicine No further inpatient recommendations from a cardiac standpoint We will sign off. Please reconsult if needed. Nurse practitioner note has been reviewed by physician. Signing provider agrees with the documented findings, assessment, and plan of care documented by COMMUNITY OUTREACH ADVOCATE as a scribe. Objective - Vital Signs Vital signs: Vital Signs Temp 97.0 F L 02/26/24 04:00 Pulse 73 02/26/24 12:00 Resp 16 02/26/24 12:00 BP 137/84 02/26/24 12:00 Pulse Ox 94 L 02/26/24 12:00 FiO2 Intake & Output 02/25/24 02/26/24 02/26/24 18:59 06:59 18:59 Intake Total 354 256 Output Total 750 700 Balance -396 -700 256 Weight 182 kg Intake: Oral 354 256 Output: Urine 750 700 Other: Voiding Method External Catheter External Catheter External Catheter - Labs CBC & Chem 7: 02/25/24 07:58 02/25/24 07:58
[2024-02-26 17:03] LABS: ALT 9 U/L (4-34); AST 20 U/L (14-36); African American GFR (CKD) 18 (>60 ml/min/1.73 sqM); Albumin 3.9 g/dL (3.5-5.0); Alkaline Phosphatase 79 U/L (38-126); Anion Gap 6 mmol/L; Blood Urea Nitrogen 64 mg/dL (7-17); Calcium 8.9 mg/dL (8.4-10.2); Carbon Dioxide 28 mmol/L (22-30); Chloride 107 mmol/L (98-107); Glucose 89 mg/dL (74-99); Non-African American GFR(CKD) 16 (>60 ml/min/1.73 sqM); Potassium 4.9 mmol/L (3.5-5.1); Sodium 141 mmol/L (137-145); Total Bilirubin 0.6 mg/dL (0.2-1.3)
--- NOTE | 2024-02-26 21:55 | P.PN ---
Subjective patient is seen for follow-up for chronic kidney disease. Renal function has been stable with serum creatinine at 2.8-2.9 mg/dL. Increased to 3.2 today. Patient is currently being diuresed. Lasix dose was increased yesterday. Shortness of breath is improved. 24-hour urine output at 1.4 L Objective - Vital Signs Vital signs: Vital Signs Temp 97.0 F L 02/26/24 04:00 Pulse 72 02/26/24 16:00 Resp 16 02/26/24 16:00 BP 129/84 02/26/24 16:00 Pulse Ox 97 02/26/24 16:00 FiO2 Intake & Output 02/26/24 02/26/24 02/27/24 06:59 18:59 06:59 Intake Total 624 Output Total 700 1350 Balance -700 -726 Intake: Oral 624 Output: Urine 700 1350 Other: Voiding Method External Catheter External Catheter # Bowel Movements 1 - Exam patient is awake, comfortable, no acute distress. Examination of the heart S1 and S2 Examination of the lungs bilateral breath sounds are heard with decreased breath sounds at the bases Abdomen is soft morbidly obese Examination of lower extremities shows chronic edema bilaterally MANAGEMENT ACCOUNTANT exam grossly intact - Labs CBC & Chem 7: 02/25/24 07:58 02/26/24 15:54 Labs: Abnormal Lab Results - Last 24 Hours (Table) 02/26/24 Range/Units 15:54 BUN 64 H (7-17) mg/dL Creatinine 3.27 H (0.52-1.04) mg/dL Assessment and Plan Assessment: 1. Chronic kidney disease stage IV baseline creatinine near 3 secondary to cardiorenal syndrome. Serologies in the past have been negative except for positive THANH. Creatinine at 3.2 today. 2. Volume overload. 3. Acute on chronic systolic CHF ejection fraction of 30 to 35% on echo cardiogram in November 2023. Current echocardiogram shows EF of 50%. 4. Hypertension with chronic kidney disease. 5. Morbid obesity. Plan: continue to diurese patient. Continue current dose of Lasix. Repeat labs in a.m. We will continue to assess patient on a daily basis for need for renal replacement therapy.
[2024-02-27 08:27] LABS: African American GFR (CKD) 19 (>60 ml/min/1.73 sqM); Anion Gap 5 mmol/L; Blood Urea Nitrogen 64 mg/dL (7-17); Calcium 8.6 mg/dL (8.4-10.2); Carbon Dioxide 29 mmol/L (22-30); Chloride 105 mmol/L (98-107); Glucose 81 mg/dL (74-99); Non-African American GFR(CKD) 17 (>60 ml/min/1.73 sqM); Potassium 4.4 mmol/L (3.5-5.1); Sodium 139 mmol/L (137-145)
--- NOTE | 2024-02-27 19:44 | P.PN ---
Subjective patient is seen for follow-up for chronic kidney disease. Renal function has been stable with serum creatinine at 2.8-2.9 mg/dL. It is 3.1 today. Patient is currently being diuresed. Lasix dose was increased yesterday. Shortness of breath is improved. 24-hour urine output increased to 2.9 L Objective - Vital Signs Vital signs: Vital Signs Temp 97.0 F L 02/26/24 20:00 Pulse 95 02/27/24 16:00 Resp 16 02/27/24 16:00 BP 123/83 02/27/24 16:00 Pulse Ox 97 02/27/24 12:00 FiO2 Intake & Output 02/27/24 02/27/24 02/28/24 06:59 18:59 06:59 Intake Total 472 Output Total 1550 900 Balance -1550 -428 Weight 208.1 kg Intake: Oral 472 Output: Urine 1550 900 Other: Voiding Method External Catheter External Catheter # Bowel Movements 1 1 - Exam patient is awake, comfortable, no acute distress. Examination of the heart S1 and S2 Examination of the lungs bilateral breath sounds are heard with decreased breath sounds at the bases Abdomen is soft morbidly obese Examination of lower extremities shows chronic edema bilaterally ART HISTORY INSTRUCTOR exam grossly intact - Labs CBC & Chem 7: 02/25/24 07:58 02/27/24 07:40 Labs: Abnormal Lab Results - Last 24 Hours (Table) 02/27/24 Range/Units 07:40 BUN 64 H (7-17) mg/dL Creatinine 3.12 H (0.52-1.04) mg/dL Assessment and Plan Assessment: 1. Chronic kidney disease stage IV baseline creatinine near 3 secondary to cardiorenal syndrome. Serologies in the past have been negative except for positive THANH. Creatinine at 3.1 today. 2. Volume overload. 3. Acute on chronic systolic CHF ejection fraction of 30 to 35% on echocardiogram in November 2023. Current echocardiogram shows EF of 50%. 4. Hypertension with chronic kidney disease. 5. Morbid obesity. Plan: continue to diurese patient. Continue current dose of Lasix. Repeat labs in a.m. We will continue to assess patient on a daily basis for need for renal replacement therapy. So far renal function remains stable with improved urinary output with increased dose of Lasix.
--- NOTE | 2024-02-28 02:07 | PN ---
PROGRESS NOTE DATE OF SERVICE: 02/27/2024 CHIEF COMPLAINT: Acute congestive heart failure. HISTORY OF PRESENT ILLNESS: This lady is doing well. She feels she can go back to the [facility]. PHYSICAL EXAMINATION: VITAL SIGNS: Normal. CHEST: Clear. CARDIAC: Normal. ABDOMEN: Soft, nontender. IMPRESSION: 1. Acute on chronic congestive heart failure. 2. Morbid obesity. 3. Pickwickian syndrome. 4. CKD. PLAN: Possibly back to the [facility] today or soon. MMODL / IJN: [id number] /
--- NOTE | 2024-02-28 14:44 | P.PN ---
Subjective patient is seen for follow-up for chronic kidney disease. Renal function has been stable with serum creatinine at 2.8-2.9 mg/dL. It is 3.1 from yesterday. Patient is currently being diuresed. 24-hour urine output increased to 1.4 L Objective - Vital Signs Vital signs: Vital Signs Temp 98.2 F 02/28/24 12:00 Pulse 103 H 02/28/24 12:00 Resp 18 02/28/24 12:00 BP 119/74 02/28/24 12:00 Pulse Ox 93 L 02/28/24 12:00 FiO2 Intake & Output 02/27/24 02/28/24 02/28/24 18:59 06:59 18:59 Intake Total 472 Output Total 900 500 Balance -428 -500 Weight 205.1 kg Intake: Oral 472 Output: Urine 900 500 Other: Voiding Method External Catheter External Catheter External Catheter # Voids 1 # Bowel Movements 1 1 - Exam patient is awake, comfortable, no acute distress. Examination of the heart S1 and S2 Examination of the lungs bilateral breath sounds are heard with decreased breath sounds at the bases Abdomen is soft morbidly obese Examination of lower extremities shows chronic edema bilaterally THREAD DRESSER exam grossly intact - Labs CBC & Chem 7: 02/25/24 07:58 02/27/24 07:40 Assessment and Plan Assessment: 1. Chronic kidney disease stage IV baseline creatinine near 3 secondary to cardiorenal syndrome. Serologies in the past have been negative except for positive THANH. Creatinine at 3.1 yesterday. 2. Volume overload. 3. Acute on chronic systolic CHF ejection fraction of 30 to 35% on echocardiogram in November 2023. Current echocardiogram shows EF of 50%. 4. Hypertension with chronic kidney disease. 5. Morbid obesity. Plan: continue to diurese patient. Continue current dose of Lasix. Repeat labs in a.m.
--- NOTE | 2024-02-29 06:41 | PN ---
PROGRESS NOTE DATE OF SERVICE: 02/26/2024 CHIEF COMPLAINT: Acute on chronic congestive heart failure. HISTORY OF PRESENT ILLNESS: This lady is doing a bit better. Breathing is improved slightly. She does have an elevated BUN and creatinine at 59 and 2.83, respectively. She is also complaining of some dysuria or discomfort in the perineal area. Her urine looks normal. PHYSICAL EXAMINATION: CHEST: There are breath sounds bilaterally. VITAL SIGNS: Normal. She is not febrile. CHEST: Clear. ABDOMEN: Soft, nontender. IMPRESSION: 1. Acute on chronic congestive heart failure. 2. Morbid obesity. 3. Pickwickian syndrome. 4. Cardiomyopathy. 5. Renal failure. 6. Dysuria. PLAN: Continue managing her congestive heart failure and look into etiology of her urinary complaints. Urine looks clear. MMODL / IJN: [id number] /
--- NOTE | 2024-02-29 07:50 | DS ---
DISCHARGE SUMMARY CHIEF COMPLAINT: Shortness of breath and acute congestive heart failure. HISTORY OF PRESENT ILLNESS AND PHYSICAL EXAMINATION: Details of this lady's history and physical can be found in the initial workup. LABORATORY STUDIES: While she is in the hospital, she had laboratory studies, details of which could be found in the laboratory section of her chart. COURSE IN THE HOSPITAL: After admission, she was placed on bedrest, started on intravenous fluids and managed with regard to her congestive heart failure. Edema has subsided and her breathing improved. She continued to do well. It was felt that she could be released back to the long-term. She will go there on usual medication management. FINAL DIAGNOSES: 1. Acute congestive heart failure. 2. Chronic congestive heart failure. 3. Cardiomyopathy. 4. Morbid obesity. Pickwickian syndrome. 1. Chronic kidney disease. OPERATIONS: None. CONSULTATIONS: Cardiology. She has improved. MMJOSE AL / BRADLEY: [id number] /
[2024-02-29 10:55] VITALS: TEMP 98.1
[2024-02-29 13:22] LABS: African American GFR (CKD) 21 (>60 ml/min/1.73 sqM); Anion Gap 7 mmol/L; Blood Urea Nitrogen 65 mg/dL (7-17); Calcium 9.3 mg/dL (8.4-10.2); Carbon Dioxide 30 mmol/L (22-30); Chloride 103 mmol/L (98-107); Glucose 96 mg/dL (74-99); Non-African American GFR(CKD) 18 (>60 ml/min/1.73 sqM); Potassium 4.4 mmol/L (3.5-5.1); Sodium 140 mmol/L (137-145)
--- NOTE | 2024-02-29 13:50 | PN ---
PROGRESS NOTE DATE OF SERVICE: 02/29/2024 SUBJECTIVE: This is a 48-year-old woman who was admitted with CHF acute exacerbation, also had significant gait dysfunction, acute pain syndrome. The patient is cleared to go to rehab at this time. PAST MEDICAL HISTORY: Reviewed. REVIEW OF SYSTEMS: A 14-point review of systems is negative. CURRENT MEDICATIONS: Reviewed. PHYSICAL EXAMINATION: VITAL SIGNS: Pulse is 85, blood pressure 147/90, respirations 18. HEENT: Conjunctivae normal. CARDIOVASCULAR: S1, S2. RESPIRATIONS: Diminished at the bases, few scattered rhonchi. ABDOMEN: Soft. NERVOUS SYSTEM: Nonfocal. LABORATORY DATA: Creatinine is 3.12. ASSESSMENT: 1. CHF acute exacerbation. 2. Cardiomyopathy. 3. Acute on chronic kidney disease. 4. Morbid obesity. 5. Pickwickian syndrome. 6. Multiple complex medical issues. RECOMMENDATIONS AND DISCUSSION: I recommended to continue current management, continue symptomatic treatment. I recommended to resume the [place] and [place] at the ECF and monitor CBC, BMP closely. For rest of the recommendations, please refer to the medication reconciliation sheet. Prognosis guarded. Stable currently. Further recommendations to follow. MMODL / IJN: [id number] /
[2024-02-29 14:12] VITALS: BP 121/74; PULSE 77; RESP 17
--- NOTE | 2024-02-29 18:22 | P.PN ---
Subjective patient is seen for follow-up for chronic kidney disease. Renal function has been stable with serum creatinine at 2.8-2.9 mg/dL. Patient is currently being diuresed. Objective - Vital Signs Vital signs: Vital Signs Temp 98.1 F 02/29/24 07:30 Pulse 77 02/29/24 12:55 Resp 17 02/29/24 12:55 BP 121/74 02/29/24 12:55 Pulse Ox 97 02/29/24 12:55 FiO2 Intake & Output 02/28/24 02/29/24 02/29/24 18:59 06:59 18:59 Intake Total 720 912 Output Total 900 Balance 720 -900 912 Weight 205.1 kg Intake: Oral 720 912 Output: Urine 900 Other: Voiding Method External Catheter External Catheter External Catheter # Voids 2 - Exam patient is awake, comfortable, no acute distress. Examination of the heart S1 and S2 Examination of the lungs bilateral breath sounds are heard with decreased breath sounds at the bases Abdomen is soft morbidly obese Examination of lower extremities shows chronic edema bilaterally WORK DISTRIBUTOR exam grossly intact - Labs CBC & Chem 7: 02/25/24 07:58 02/29/24 12:44 Labs: Abnormal Lab Results - Last 24 Hours (Table) 02/29/24 Range/Units 12:44 BUN 65 H (7-17) mg/dL Creatinine 2.92 H (0.52-1.04) mg/dL Assessment and Plan Assessment: 1. Chronic kidney disease stage IV baseline creatinine near 3 secondary to car diorenal syndrome. Serologies in the past have been negative except for positive THANH. Creatinine at 2.9 2. Volume overload. 3. Acute on chronic systolic CHF ejection fraction of 30 to 35% on echoca rdiogram in November 2023. Current echocardiogram shows EF of 50%. 4. Hypertension with chronic kidney disease. 5. Morbid obesity. Plan: continue to diurese patient. Okay to discharge patient and follow-up as outpatient in 1 week's time.
== END 2024-02-29 15:48 | DRG 194 ==
LOC: EC 22:30 → 3SCARD 02-23 04:57
PROVIDERS: ADMIT Family Medicine; ATTEND Family Medicine
DX: I13.0 Hypertensive heart and chronic kidney disease with heart failure and stage 1 through stage 4 chronic kidney disease, or unspecified chronic kidney disease (principal); I16.1 Hypertensive emergency; I50.23 Acute on chronic systolic (congestive) heart failure; I48.0 Paroxysmal atrial fibrillation; E66.2 Morbid (severe) obesity with alveolar hypoventilation; R15.9 Full incontinence of feces; J44.9 Chronic obstructive pulmonary disease, unspecified; R32 Unspecified urinary incontinence; E87.5 Hyperkalemia; F41.9 Anxiety disorder, unspecified; Z68.45 Body mass index [BMI] 70 or greater, adult; K44.9 Diaphragmatic hernia without obstruction or gangrene; N18.4 Chronic kidney disease, stage 4 (severe); I47.10 Supraventricular tachycardia, unspecified; K57.90 Diverticulosis of intestine, part unspecified, without perforation or abscess without bleeding; M17.0 Bilateral primary osteoarthritis of knee; G93.41 Metabolic encephalopathy; I25.10 Atherosclerotic heart disease of native coronary artery without angina pectoris; I42.9 Cardiomyopathy, unspecified; J96.21 Acute and chronic respiratory failure with hypoxia; Z99.81 Dependence on supplemental oxygen; Z79.01 Long term (current) use of anticoagulants; Z79.899 Other long term (current) drug therapy; Z71.3 Dietary counseling and surveillance; Z86.718 Personal history of other venous thrombosis and embolism; Z87.440 Personal history of urinary (tract) infections; R26.9 Unspecified abnormalities of gait and mobility; R47.81 Slurred speech
CPT/HCPCS: 36415; 36600; 71045; 80048; 80053; 81001; 82140; 82805; 83605; 83735; 83880; 84484; 85025; 85610; 85730; 93005; 93308; 94760; 96374; 96376; 99285